=== PATIENT | female | born 1980 | race Caucasian/White ===

== ENCOUNTER 2019-09-28 15:42 | Emergency (ER) | payer OTHER, SELFPAY ==
[2019-09-28 15:45] VITALS: BP 148/113; PULSE 95; RESP 16; TEMP 37.5; O2SAT 97
--- NOTE | 2019-09-28 16:44 | ED.DENTAL ---
HPI - Dental/Oral General Chief complaint: Dental/Oral Stated complaint: Dental pain Time Seen by Provider: 09/28/19 16:19 Source: patient Mode of arrival: ambulatory Limitations: no limitations History of Present Illness HPI Narrative: Patient presents the emergency department for toothache x2 days. Reports tooth pain of a left upper and lower molar on the left side. Reports she took 2 doses of amoxicillin without relief. Reports she has been taking [id number] pain medication without relief as well. Denies fever, dysphasia, shortness of breath. MD Complaint: tooth pain Location: Tooth # (16, 17) Related Data Home Medications Medication Instructions Recorded Confirmed buspirone mg 09/28/19 09/28/19 escitalopram oxalate mg 09/28/19 escitalopram oxalate mg 09/28/19 lidocaine HCl [Lidocaine Viscous] 09/28/19 naproxen 09/28/19 quetiapine 09/28/19 sumatriptan succinate mg PO 09/28/19 Allergies Allergy/AdvReac Type Severity Reaction Status Date / Time erythromycin base Allergy Unknown Verified 09/28/19 16:03 tramadol AdvReac Unknown Verified 09/28/19 16:03 Review of Systems Review of Systems: Narrative: CONSTITUTIONAL: Denies fever ENT: Reports dentalgia All systems reviewed & are unremarkable except as noted in HPI and below PMFSH Past Medical History Medical History (Updated 09/28/19 @ 16:53 by Jerica Phelps PA-C) History of anxiety History of depression Exam Narrative: Exam Narrative: GENERAL: Well-appearing, well-nourished, and in no acute distress. HEAD: Normocephalic, atraumatic. EYES: EOMI. ENT: Mucous membranes moist. Oropharynx without tonsillar hypertrophy exudate or other lesions. Poor dentition. Tooth #16 and 17 tender to palpation without surrounding erythema or edema to suggest abscess. No trismus NECK: Supple. No adenopathy or masses. CHEST: Airway patent EXTREMITIES: Normal range of motion. No edema. SKIN: Warm, dry, no rash. NEURO: No focal deficits. Alert and oriented x3. PSYCH: Normal mood and affect Course Vital Signs Vital signs: Vital Signs Temperature 99.5 F 09/28/19 15:45 Pulse Rate 95 09/28/19 15:45 Respiratory Rate 16 09/28/19 15:45 Blood Pressure 148/113 H 09/28/19 15:45 Pulse Oximetry 97 09/28/19 15:45 Temperature 99.5 F 09/28/19 15:45 Pulse Rate 95 09/28/19 15:45 Respiratory Rate 16 09/28/19 15:45 Blood Pressure 148/113 H 09/28/19 15:45 Pulse Oximetry 97 09/28/19 15:45 MDM - Dental/Oral MDM Narrative Medical decision making narrative: Patient presents to the emergency department for toothache x2 days. She is afebrile and nontoxic-appearing. No signs of abscess on exam. Patient will be started on oral antibiotics. Reports she has an appointment to follow-up with a dentist. Patient was given warnings to return to the ER Critical Care Time Critical Care Time Critical Care Time: No Discharge Plan Discharge Clinical Impression: Toothache Patient Disposition: Home, Self-Care Condition: Stable Instructions: Antibiotic Form, Toothache (ED) Additional Instructions: Return to the Emergency Department if you experience fever >101, increasing swelling and redness of your tooth, or any other symptoms that are concerning to you Take antibiotic as prescribed. Tylenol or Ibuprofen as needed for pain. Prescribed pain medication as needed. You can apply a dab of clove oil to a Qtip and apply to the tooth to help numb the area Follow up with your dentist Prescriptions: New amoxicillin-pot clavulanate 875-125 mg tablet 1 tablet PO Q12H 7 Days Qty: 14 RF: 0 hydrocodone-acetaminophen 5-325 mg tablet 1 tablet PO Q6H PRN (Reason: pain) Qty: 10 RF: 0 No Action sumatriptan succinate 100 mg tablet PO RF: 0 buspirone 10 mg tablet RF: 0 Lidocaine Viscous 2 % solution RF: 0 naproxen 500 mg tablet RF: 0 escitalopram oxalate 10 mg tablet RF: 0
[2019-09-28 17:37] VITALS: BP 150/87; PULSE 85; RESP 14; O2SAT 99
== END 2019-09-28 17:38 | disposition home or self-care (01) ==
PROVIDERS: Emergency Provider Emergency Medicine; PCP Family Medicine
DX: K08.89 Other specified disorders of teeth and supporting structures (principal); F41.9 Anxiety disorder, unspecified; F32.9 Major depressive disorder, single episode, unspecified
CPT/HCPCS: 99283; A9270

== ENCOUNTER 2020-04-05 13:53 | Emergency (ER) | payer OTHER, SELFPAY ==
[2020-04-05 13:58] VITALS: BP 160/130; PULSE 130; RESP 28; TEMP 36.8; O2SAT 100
--- NOTE | 2020-04-05 14:56 | ED.DENTAL ---
HPI - Dental/Oral General Chief complaint: Dental/Oral Stated complaint: tooth pain Time Seen by Provider: 04/05/20 14:03 Source: patient Mode of arrival: ambulatory Limitations: no limitations History of Present Illness HPI Narrative: Patient is a 39-year-old female who presents to emergency department for evaluation of dentalgia with pain and discharge to the left dental caries with history of gross dental decay notes that she has been unable to get into dentistry due to Covid patient notes moderate to severe pain worse with eating denies vomiting URI symptoms or other complaints Related Data Home Medications Medication Instructions Recorded Confirmed buspirone mg 09/28/19 09/28/19 escitalopram oxalate mg 09/28/19 escitalopram oxalate mg 09/28/19 lidocaine HCl [Lidocaine Viscous] 09/28/19 naproxen 09/28/19 quetiapine 09/28/19 sumatriptan succinate mg PO 09/28/19 Allergies Allergy/AdvReac Type Severity Reaction Status Date / Time amoxicillin Allergy Unknown Verified 11/04/19 10:04 erythromycin base Allergy Unknown Verified 11/04/19 10:04 tramadol AdvReac Unknown Verified 11/04/19 10:04 Review of Systems Review of Systems: All systems reviewed & are unremarkable except as noted in HPI and below PMFSH Past Medical History Medical History History of anxiety History of depression Family History Family History (System 11/04/19 @ 10:04 by Jaja Morrissey) Mother Hypertension Cerebrovascular accident Family history of diabetes mellitus in first degree relative Father Carcinoma of colon Grandparent Diabetes mellitus Other Family history of malignant neoplasm of male breast Social History Social History Smoking status: Never smoker Second hand tobacco smoke exposure: No Alcohol intake: never Gender identity (if verbalized by the patient): Female Exam Narrative: Exam Narrative: GENERAL: Well-appearing, obese, uncomfortable and in no acute distress. HEAD: Normocephalic, atraumatic. EYES: PERRLA and EOMI. ENT: Nares clear, no rhinorrhea or epistaxis. Mucous membranes moist. Gross dental caries uvula midline no trismus or drooling floor of the mouth is soft CHEST: Clear to auscultation. No respiratory distress. No wheezes rales or rhonchi HEART: Regular rate and rhythm. No murmur heard. SKIN: Warm, dry, no rash. NEURO: No focal deficits. Alert and oriented x3. PSYCH: Normal mood and affect. Course Course Emergency Course: Patient in the room at this time will be given medications for her symptoms advised to follow with dentistry felt appropriate for outpatient reevaluation Vital Signs Vital signs: Vital Signs Temperature 98.3 F 04/05/20 13:58 Pulse Rate 130 H 04/05/20 13:58 Respiratory Rate 28 H 04/05/20 13:58 Blood Pressure 160/130 H 04/05/20 13:58 Pulse Oximetry 100 04/05/20 13:58 Temperature 98.3 F 04/05/20 13:58 Pulse Rate 130 H 04/05/20 13:58 Respiratory Rate 28 H 04/05/20 13:58 Blood Pressure 160/130 H 04/05/20 13:58 Pulse Oximetry 100 04/05/20 13:58 MDM - Dental/Oral MDM Narrative Medical decision making narrative: Paitents pain and complaint coupled with physical findings are consistant with dentalgia. There are no focal signs of space occupying lesions that are compromising to the ariway. The floor of the mouth is soft with no signs of Ludwigs Angina. Patient is without trismus or drooling and able to swallow secreations. Patient is felt appropriate for discharge home with dental follow up. Discharge Plan Discharge Clinical Impression: Toothache, Dental abscess Patient Disposition: Home, Self-Care Condition: Stable Instructions: Antibiotic Form, Dental Abscess (ED) Additional Instructions: Follow-up with dentistry in the next 7 days for reevaluation Return if symptoms worsen or concerns or any inc
[2020-04-05] MEDS: KETOROLAC (*BKC) 60 MG/2 ML VIAL IM (15:26)
== END 2020-04-05 15:32 | disposition home or self-care (01) ==
PROVIDERS: Emergency Provider Family Medicine; PCP Family Medicine
DX: K04.7 Periapical abscess without sinus (principal); F41.9 Anxiety disorder, unspecified; F32.9 Major depressive disorder, single episode, unspecified
CPT/HCPCS: 96372; 99283; J1885

== ENCOUNTER 2021-05-29 08:00 | Emergency (ER) | payer OTHER, SELFPAY ==
[2021-05-29 08:03] VITALS: BP 162/79; PULSE 117; RESP 22; TEMP 36.3; O2SAT 100
--- NOTE | 2021-05-29 08:59 | ED.GENADULT ---
HPI - General Adult General Chief complaint: Dental/Oral Stated complaint: DENTAL PAIN Time Seen by Provider: 05/29/21 08:40 Source: patient and RN notes reviewed History of Present Illness HPI narrative: Patient is a 40 y/o female complaining right upper toothache since yesterday. She states that she tried Anbesol, which did not help. She rates her pain as more than 10/10. She describes it as throbbing. She has no fever or chills. Related Data Home Medications Medication Instructions Recorded Confirmed buspirone mg 09/28/19 09/28/19 escitalopram oxalate mg 09/28/19 escitalopram oxalate mg 09/28/19 lidocaine HCl [Lidocaine Viscous] 09/28/19 naproxen 09/28/19 quetiapine 09/28/19 sumatriptan succinate mg PO 09/28/19 Allergies Allergy/AdvReac Type Severity Reaction Status Date / Time amoxicillin Allergy Unknown Verified 11/04/19 10:04 erythromycin base Allergy Unknown Verified 11/04/19 10:04 tramadol AdvReac Unknown Verified 11/04/19 10:04 Review of Systems Constitutional: Constitutional: Denies chills, Denies fever(s), Denies headache(s) and Denies weakness Eyes: Eyes: Denies blurry vision ENT: Reports dental pain, Denies headache(s) and Denies neck pain Gastrointestinal: Gastrointestinal: Reports diarrhea, Denies nausea and Denies vomiting Neurologic: Denies headache(s) and Denies weakness PMFSH Past Medical History Medical History History of anxiety History of depression Family History Family History Mother Hypertension Cerebrovascular accident Family history of diabetes mellitus in first degree relative Father Carcinoma of colon Grandparent Diabetes mellitus Other Family history of malignant neoplasm of male breast Social History Social History Smoking status: Never smoker Second hand tobacco smoke exposure: No Alcohol intake: never Gender identity (if verbalized by the patient): Female Exam Const: General: no acute distress and well developed Orientation/consciousness: oriented to person, oriented to place, oriented to time and patient oriented x3 HENMT: Head: normocephalic Ears: external ears normal General nose exam: Normal external nose present Teeth and gingiva: poor dentition Resp: Effort & Inspection: normal respiratory effort and able to speak in complete sentences Cardio: Rate: tachycardic Rhythm: regular rhythm Neuro: General: oriented to person, oriented to place, oriented to time and patient oriented x3 Cognition (Neuro): normal cognition Psych: Appearance: grossly normal Mental Status: mental status grossly normal Affect: Anxious affect present Course Vital Signs Vital signs: Vital Signs Temperature 36.3 C L 05/29/21 08:03 Pulse Rate 117 H 05/29/21 08:03 Respiratory Rate 22 H 05/29/21 08:03 Blood Pressure 162/79 H 05/29/21 08:03 Pulse Oximetry 100 05/29/21 08:03 Temperature 36.3 C L 05/29/21 08:03 Pulse Rate 117 H 05/29/21 08:03 Respiratory Rate 22 H 05/29/21 08:03 Blood Pressure 162/79 H 05/29/21 08:03 Pulse Oximetry 100 05/29/21 08:03 Medical Decision Making Vital Signs Vital Signs: Vital Signs Temperature 36.3 C L 05/29/21 08:03 Pulse Rate 117 H 05/29/21 08:03 Respiratory Rate 22 H 05/29/21 08:03 Blood Pressure 162/79 H 05/29/21 08:03 Pulse Oximetry 100 05/29/21 08:03 Temperature 36.3 C L 05/29/21 08:03 Pulse Rate 117 H 05/29/21 08:03 Respiratory Rate 22 H 05/29/21 08:03 Blood Pressure 162/79 H 05/29/21 08:03 Pulse Oximetry 100 05/29/21 08:03 Discharge Plan Discharge Clinical Impression: Toothache Patient Disposition: Home, Self-Care Condition: Stable Instructions: Antibiotic Form, Toothache (ED) Prescriptions: New acetaminophen-codeine 300-30 mg tablet 1 tablet PO Q6H PRN (Reason: pain)
[2021-05-29] MEDS: KETOROLAC (*BKC) 60 MG/2 ML VIAL IM (09:04)
== END 2021-05-29 09:24 | disposition home or self-care (01) ==
PROVIDERS: Emergency Provider Emergency Medicine; PCP Family Medicine
DX: K08.89 Other specified disorders of teeth and supporting structures (principal); F41.9 Anxiety disorder, unspecified; F32.A Depression, unspecified
CPT/HCPCS: 96372; 99284; J1885

== ENCOUNTER 2022-11-13 16:58 | Emergency (ER) | payer OTHER, SELFPAY ==
[2022-11-13] VITALS (12 sets, daily range): BP systolic 105–157; BP diastolic 61–126; PULSE 103–133; RESP 18–29; TEMP 36.8; O2SAT 95–99
--- NOTE | ~2022-11-13 | CT_ITS ---
CT of the Abdomen and Pelvis: Indication: Abdominal pain Technique: 2.5 mm axial scans were obtained through the abdomen and pelvis following intravenous adm inistration of 100 cc of Omnipaque 350. Dose reduction technique was used on this scan by utilizing a utomated exposure control and iterative reconstruction technique. The dose-length product (DLP) was 1 376.97 mGy-cm. COMPARISON: 12/26/2018 Findings: Scans through the lung bases are unremarkable. There is diffuse fatty infiltration of the liver. The spleen, pancreas, gallbladder, and adrenal glan ds are within normal limits. Left kidney is relatively atrophic, with left lower pole renal stones an d/or parenchymal scarring present. Small nonobstructing right renal stones are present. No hydronephr osis on either side. No evidence of aortic aneurysm. No lymphadenopathy. No bowel obstruction or bowel wall thickening. There is no evidence to suggest acute appendicitis. Fa t-containing umbilical hernia present. Images through the pelvis were performed. Small bubble of air present in the urinary bladder, which i s otherwise unremarkable. No adnexal mass seen. No ascites. Impression: Diffuse fatty infiltration of the liver. Mild nephrolithiasis, nonobstructing, as detailed above. Fat-containing umbilical hernia. Small bubble of air in urinary bladder. Correlate for iatrogenic cause. Reviewed, dictated and finalized at location . Impression: Diffuse fatty infiltration of the liver. Mild nephrolithiasis, nonobstructing, as detailed above. Fat-containing umbilical hernia. Small bubble of air in urinary bladder. Correlate for iatrogenic cause.
--- NOTE | ~2022-11-13 | XR_ITS ---
Portable chest x-ray Comparison: 06/13/2017 Clinical History: Shortness of breath Findings: Lungs are clear, without focal consolidation or pleural effusion. Cardiomediastinal silho uette is stable. Bones and soft tissues are unremarkable. Impression: Clear lungs. Reviewed, dictated and finalized at location . Impression: Clear lungs.
--- NOTE | 2022-11-13 17:08 | ECG_ITS ---
Measurements Intervals [place] Rate: 132 P: 33 FL: 120 QRS: 7 QRSD: 90 T: 38 QT: 313 QTc: 465 Interpretive Statements SINUS TACHYCARDIA INCOMPLETE RIGHT BUNDLE BRANCH BLOCK BASELINE ARTIFACT- I, II, III, AVR, AVL, AVF, V1-V6 ABNORMAL ECG NO PREVIOUS ECG AVAILABLE FOR COMPARISON Electronically Signed On 11-13-2022 19:11:30 CDT by Eduard Shukla D.O.
[2022-11-13] MEDS: methylPREDNISolone SOD SUCC 125 MG VIAL IV PUSH (17:13)
[2022-11-13] MEDS: ALBUTEROL SULFATE NEB 2.5 MG/3 ML INH 5 MG INHALATION (17:17)
[2022-11-13 17:24] LABS: Basophils Absolute Auto 0.1 K/mm3 (0.0-0.1); Basophils Percent Auto 0.8 % (0.2-1.2); Eosinophils Absolute Auto 1.8 K/mm3 (0-0.3); Hematocrit 36.2 % (37.0-47.0); Hemoglobin 9.9 g/dL (12.0-15.0); Immature Granulocyte Absolute 0.08 K/mm3 (0.00-0.031); Immature Granulocyte Percent A 0.5 % (0-0.5); Lymphocytes Absolute Auto 2.41 K/mm3 (0.9-3.2); Mean Corpuscular HGB Conc 27.3 g/dl (32-36); Mean Corpuscular Hemoglobin 21.5 pg (26-34); Mean Corpuscular Volume 78.7 fl (80-100); Mean Platelet Volume 9.8 fl (7.4-10.4); Monocytes Absolute Auto 0.6 K/mm3 (0.1-0.6); Monocytes Percent Auto 3.7 % (2.6-8.5); Neutrophils Absolute Auto 10.1 K/mm3 (1.3-6.7); Platelet Count Result 338 k/mm3 (150-375); Red Cell Distribution Width 19.9 % (11.5-14.5)
[2022-11-13 17:34] LABS: Alanine Aminotransferase 32 U/L (6-35); Albumin Level 4.2 g/dL (3.5-5.1); Alkaline Phosphatase 145 U/L (38-126); Anion Gap 14 mmol/L (8-16); Aspartate Amino Transferase 31 U/L (14-36); Bilirubin,Total 0.3 mg/dL (0.2-1.3); Blood Urea Nitrogen 17 mg/dL (7-17); Calcium 9.1 mg/dL (8.4-10.2); Carbon Dioxide 17 mmol/L (22-30); Chloride 109 mmol/L (98-107); Estimated CRCL calculation 93 ml/min; Estimated Glomerular Filt Rate 54; Glucose 168 mg/dL (65-110); Potassium 4.4 mmol/L (3.4-5.0); Sodium 140 mmol/L (137-145)
[2022-11-13 18:04] LABS: Platelet Estimate Increased (Adequate)
[2022-11-13 18:05] LABS: Schistocytes None Seen (NORMAL)
[2022-11-13 18:06] LABS: Anisocytosis 3+ (NORMAL); Hypochromasia 1+ (NORMAL)
[2022-11-13 18:24] LABS: NT Pro B Type Natriuretic Pept < 20 pg/mL (19.9-100)
--- NOTE | 2022-11-13 18:53 | ED.GENADULT ---
HPI - General Adult General Chief complaint: Shortness of Breath/Dyspnea Stated complaint: difficulty breathing Time Seen by Provider: 11/13/22 17:06 History of Present Illness HPI narrative: 42-year-old female present to the emergency department for evaluation of shortness of breath and abdominal pain. Patient states he has no prior history of asthma. Patient did have some minor wheeze on initial examination. Patient reports he is probably having pain at her hernia site. Patient also reports a prior history of a colovesicular fistula for which she is not yet cleared for surgery. Patient was told that she needed to lose weight prior to surgery and patient is also hoping to not have a colostomy. Patient reports she has had increased cough and some shortness of breath but denies any chest pain. Related Data Home Medications Medication Instructions Recorded Confirmed buspirone 10 mg tablet mg 09/28/19 09/28/19 escitalopram oxalate 10 mg tablet mg 09/28/19 escitalopram oxalate 20 mg tablet mg 09/28/19 lidocaine HCl 2 % mucosal solution 09/28/19 (Lidocaine Viscous) naproxen 500 mg tablet 09/28/19 quetiapine 50 mg tablet 09/28/19 sumatriptan succinate 100 mg tablet mg PO 09/28/19 Allergies Allergy/AdvReac Type Severity Reaction Status Date / Time amoxicillin Allergy Unknown Unknown Verified 11/13/22 17:12 erythromycin base Allergy Unknown Verified 11/13/22 17:12 tramadol AdvReac Unknown Verified 11/13/22 17:12 Review of Systems Review of Systems: All systems reviewed & are unremarkable except as noted in HPI and below PMFSH Past Medical History Medical History History of anxiety History of depression Family History Family History Mother Hypertension Cerebrovascular accident Family history of diabetes mellitus in first degree relative Father Carcinoma of colon Grandparent Diabetes mellitus Other Family history of malignant neoplasm of male breast Social History Social History Smoking status: Never smoker Second hand tobacco smoke exposure: No Alcohol intake: never Gender identity (if verbalized by the patient): Female Exam Narrative: APPEARANCE: Well appearing, no pain, no distress, well-nourished. HEAD: normocephalic, atraumatic. EYES: PERRLA/EOMI, conjunctivae clear. NOSE: Normal no drainage EARS:TMS clear with good light reflex. THROAT: Pharynx clear, no exudate. NECK: Supple. No adenopathy, no masses. RESPIRATORY: Expiratory wheeze on exam CARDIOVASCULAR: Regular rate and rhythm without murmurs rubs or gallops. ABDOMINAL: Soft nondistended, normal bowel sounds, reducible umbilical hernia MUSCULOSKELETAL: Moves all extremities. Strength/ROM intact, No edema, No calf tenderness. NEURO: Alert. Cranial nerves II through XII intact. Grossly intact SKIN: Warm, dry. Normal Color Course Course Emergency Course: 42-year-old female present emergency department for evaluation of abdominal pain and some shortness of breath. Patient did feel improved with the breathing treatment. Chest x-ray showed no acute cardiopulmonary abnormality. Patient had a CT scan that showed nonobstructing nephrolithiasis, fat-containing umbilical hernia and a small bubble of air in the urinary bladder. UA was concerning for infection but patient also does have a known fistula. Patient was started on antibiotics for possible UTI. Patient was also provided and reviewed on inhaler for her wheeze. Patient was able to ambulate at her baseline and was in no distress. Patient was encouraged to continue to have close follow-up with her primary care physicians and with her surgeons. All questions concerns were addressed and patient was well-appearing at time of discharge. Vital Signs Vital signs: Vital Signs Temperature 98.2 F 11/13/22 17:08 Pu
[2022-11-13] MEDS: SODIUM CHLORIDE 0.9% IV 1,000 ML 999 ML IV CONT (19:44)
[2022-11-13 20:29] LABS: Appearance Urine Cloudy (Clear); Bacteria Urine 4+ /hpf; Bilirubin Urine Negative (Negative); Blood Urine 2+ (Negative); Color Urine Yellow (Yellow); Glucose Urine UA Negative (Negative); Ketones Urine Negative (Negative); Leukocyte Esterase Ur 3+ LEU/UL (Negative); Nitrate Urine Positive (Negative); Protein Urine 1+ mg/dL (Negative); Specific Grav Ur 1.027 (1.001-1.035); Squamous Epithelial Cell Urine None seen /hpf (Few); Urobilinogen Urine 0.2 mg/dL (<2.0); WBC Urine >100 /hpf; pH Urine 5.5 (5.0-9.0)
[2022-11-13 20:32] LABS: Add Urine Microscopic? NO
[2022-11-13] MEDS: ALBUTEROL SULFATE NEB 2.5 MG/3 ML INH INHALATION (20:42)
[2022-11-13] MEDS: levoFLOXacin 500 MG TABLET PO (21:15)
== END 2022-11-13 21:34 | disposition home or self-care (01) ==
PROVIDERS: Emergency Provider Emergency Medicine; PCP Family Medicine
DX: N39.0 Urinary tract infection, site not specified (principal); F41.9 Anxiety disorder, unspecified; F32.A Depression, unspecified; K42.9 Umbilical hernia without obstruction or gangrene; K76.0 Fatty (change of) liver, not elsewhere classified; N20.0 Calculus of kidney
CPT/HCPCS: 36415; 71045; 74177; 80053; 81003; 83880; 85025; 87086; 87088; 93005; 94640; 96361; 96374; 99284; A9270; J2930; J7030; Q9967

== ENCOUNTER 2025-04-01 16:22 | Emergency (ER) | payer OTHER, SELFPAY ==
--- NOTE | ~2025-04-01 | XR_ITS ---
EXAMINATION: XR chest 1V portable DATE: 04/01/2025 18:25 INDICATION: Chest pain TECHNIQUE: A single frontal view of the chest was obtained. COMPARISON: Chest x-ray dated 11/13/2022 FINDINGS: Cardiomegaly of moderately significant degree. Lungs do not show acute findings. Central line placed through the right internal jugular vein is noted with the tip at the junction of superior vena cava and right atrium. IMPRESSION: 1. Cardiomegaly. No acute pulmonary findings. 2. Central line tip at the junction of superior vena cava and right atrium. Reviewed, dictated and finalized at location T. ER MILL OPERATOR
--- NOTE | ~2025-04-01 | CT_ITS ---
EXAMINATION: CTA chest PE abdomen pel DATE: 04/01/2025 21:38 INDICATION: Chest pain, shortness of breath. TECHNIQUE: Computed tomography angiography (CTA) of the chest was performed with 100 mL Omnipaque-350 intravenous contrast timed to evaluate the pulmonary arteries. Coronal maximum intensity projection 3D-reconstructions were created by the technologist. Computed tomography (CT) of the abdomen and pelvis was performed with intravenous contrast. Automated exposure control and iterative reconstruction technique were employed. The dose-length product was 2188.17 mGy-cm. COMPARISON: Chest x-ray dated 04/01/2025. CT abdomen pelvis dated 11/13/2022. FINDINGS: CTA chest: Filling defect within the distal right pulmonary artery extending to the inferior pulmonary artery suggestive of embolus. Smaller emboli are noted in the left lower lobe branches. No pleural or pericardial effusion. CT abdomen and pelvis: No focal lesions in the liver and spleen. Hepatomegaly. Gallbladder is distended in size without edema or calcified stones. Pancreas shows no acute findings. Atrophic left kidney with multiple left renal calculi. No retroperitoneal adenopathy. No evidence of bowel obstruction. No pelvic mass or fluid collections. IMPRESSION: 1. CT angiogram shows evidence of pulmonary emboli as described above. Embolic load is moderate. No angiographic evidence of right ventricular strain. 2. Hepatomegaly. Mildly distended gallbladder. No calcified stones. 3. Atrophic left kidney with multiple calculi. 4. Critical findings conveyed to attending physician by phone call at 9:47 PM. Reviewed, dictated and finalized at location T. PATIONAL THERAPY PROGRAM DIRECTOR
--- NOTE | ~2025-04-01 | US_ITS ---
EXAMINATION: Duplex Doppler ultrasound of right upper extremity venous circulation: DATE: 04/01/2025 INDICATION: Pain, swelling. TECHNIQUE: High resolution ultrasound with compression and Doppler analysis including augmentation was performed of the right internal jugular, subclavian, axillary, brachial, radial and ulnar veins. COMPARISON: None. FINDINGS: No evidence of DVT is noted in the upper extremity veins on the right side. Normal compression and color flow are noted. IMPRESSION: 1. No evidence of DVT involving major veins in the right upper extremity. Reviewed, dictated and finalized at location T. O TUNER
[2025-04-01 16:27] VITALS: BP 110/71; PULSE 97; RESP 18; TEMP 36.5; O2SAT 100
--- NOTE | 2025-04-01 17:14 | ED.RECABL ---
HPI - Recheck/Abnormal Lab/Rx General Chief Complaint: Recheck/Abnormal Lab/Rx Stated Complaint: pain r/t port Time Seen by Provider: 04/01/25 17:01 History of Present Illness HPI narrative: Patient is a 54-year-old female who presents to the ER with multiple medical complaints. She endorses pain to her port site in her right chest, right arm pain, shortness of breath, and abdominal pain. 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 She reports she had been getting infusions up until January but has been unable to get to the infusion center since then. Patient reports her port dressing has not been changed since January. She endorses a history of diverticulitis, bladder fistulas, and pulmonary embolism. Patient reports she takes Eliquis regularly. She denies any acute back pain, recent fevers, or urinary symptoms. Related Data Home Medications ?Medication ?Instructions ?Recorded ?Confirmed ?Last Taken ?Type buspirone 10 mg tablet mg 09/28/19 09/28/19 Unknown History escitalopram oxalate 10 mg tablet mg 09/28/19 Unknown History escitalopram oxalate 20 mg tablet mg 09/28/19 Unknown History lidocaine HCl 2 % mucosal solution 09/28/19 Unknown History (Lidocaine Viscous) naproxen 500 mg tablet 09/28/19 Unknown History quetiapine 50 mg tablet 09/28/19 Unknown History sumatriptan succinate 100 mg tablet mg PO 09/28/19 Unknown History Allergies Allergy/AdvReac Type Severity Reaction Status Date / Time chlorhexidine (From [facility] Allergy Rash Verified 04/01/25 16:45 Mae Chg) Review of Systems Review of Systems: All systems reviewed & are unremarkable except as noted in HPI and below [facility] Past Medical History Medical History History of anxiety History of depression Family History Family History Mother Hypertension Cerebrovascular accident Family history of diabetes mellitus in first degree relative Father Carcinoma of colon Grandparent Diabetes mellitus Other Family history of malignant neoplasm of male breast Social History Social History Smoking status: Never smoker Second hand tobacco smoke exposure: No Alcohol intake: never Gender identity (if verbalized by the patient): Female Exam Narrative: GENERAL: Ill appearing, obese, non-toxic, in acute distress d/t pain. HEAD: Normocephalic, atraumatic. NECK: Supple. No adenopathy, no masses. RESPIRATORY: Airway patent, respirations nonlabored. Clear to auscultation bilaterally, no rales, rhonchi, wheezing. CARDIOVASCULAR: Regular rate and rhythm without murmurs, rubs, or gallops. Peripheral pulses 2+ and equal bilaterally. ABDOMINAL: Soft, generalized tenderness with palpation, nondistended, no hepatosplenomegaly. Normoactive BS. MUSCULOSKELETAL: Moves all extremities. Strength/ROM intact without gross deformities. SKIN: Warm, dry, normal color. No rashes. NEURO: A&O X3. Speech clear. Cranial nerves II-XII intact. No ataxic movements. PSYCHIATRIC: Tearful Course Vital Signs Vital signs: Vital Signs Temperature 36.5 C 04/01/25 16:27 Pulse Rate 97 04/01/25 16:27 Respiratory Rate 18 04/01/25 16:27 Blood Pressure 110/71 04/01/25 16:27 Pulse Oximetry 100 04/01/25 16:27 Oxygen Delivery Room Air 04/01/25 16:27 Temperature 36.6 C 04/01/25 19:30 Pulse Rate 80 04/01/25 19:30 Respiratory Rate 16 04/01/25 19:30 Blood Pressure 127/71 04/01/25 19:30 Pulse Oximetry 99 04/01/25 19:30 Oxygen Delivery Room Air 04/01/25 16:27 [facility] Narrative Medical decision making narrative: Patient is a 54-year-old female who presents to the ER with multiple medical complaints. She endorses pain to her port site in her right chest, right arm pain, shortness of breath, and abdominal pain. 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 She reports she had been getting infusions up until January but has been unable to get to the infusion center since then. Patient reports her port dressing has not been changed since January. She endorses a history of diverticulitis, bladder fistulas, and pulmonary embolism. Patient reports she takes Eliquis regularly. She denies any acute back pain, recent fevers, or urinary symptoms. Labs Ordered: CBC, CMP, UA, proBNP, PTT, INR, CRP, lipase, blood cultures, D-dimer, lactic acid Imaging Ordered: Chest x-ray, right upper extremity Doppler ultrasound, CTA chest PE abdomen pelvis Medications Ordered: 1 L normal saline IV bolus, Dilaudid 0.5 mg IV x2, Rocephin 1 g IM, [place] p.o. Results: Pt's CT scan indicates CTA chest: Filling defect within the distal right pulmonary artery extending to the inferior pulmonary artery suggestive of embolus. Smaller emboli are noted in the left lower lobe branches. No pleural or pericardial effusion. CT abdomen and pelvis: No focal lesions in the liver and spleen. Hepatomegaly. Gallbladder is distended in size without edema or calcified stones. Pancreas shows no acute findings. Atrophic left kidney with multiple left renal calculi. No retroperitoneal adenopathy. No evidence of bowel obstruction. No pelvic mass or fluid collections. Diagnosis: Urinary tract infection, right arm pain, known PE Consults: [id number]- Spoke with kindergarten assistant, Dr. Rucker, who reports patient had a large clot when it was diagnosed back in February. She expects the clot will take a long time to dissolve, possibly longer than [address] Rucker reports pt can follow-up with pulmonology at [place] in May, as planned. Patient Education/Shared MDM: Results of lab work and imaging shared with patient. They endorses improvement of symptoms following medication administration. Pt will be given another dose of pain medication prior to discharge. She is requesting a prescription for a narcotic pain medication, but it was explained to pt that there was no significant reason to prescribe narcotics and she should follow-up with her pain management doctor. Patient strongly advised to follow-up with her PCP as soon as possible to ensure she is healing. They will be discharged home with a prescription for Levofloxacin, although pt reports she has chronic UTIs and should follow-up with her urologist for further care. Pt was given a dose of Ceftriaxone 1gm here in the ER. Strict return precautions provided. Patient verbalized understanding and is in agreement with plan. Vital signs stable at time of discharge. All questions answered. Differential Diagnosis Differential Diagnosis: Pulmonary embolism, diverticulitis, urinary tract infection, blood clot right arm, shortness of breath Lab Data [facility] Lab Attestation statement: I personally reviewed the patient's lab results. 04/01/25 18:18 04/01/25 18:18 Labs: Lab Results 04/01/25 04/01/25 04/01/25 Range/Units 18:18 18:18 20:21 WBC 9.0 (4.5-10.0) K/mm3 RBC 3.96 L (4.2-5.4) M/mm3 Hgb 10.8 L (12.0-15.0) g/dL Hct 34.0 L (37.0-47.0) % MCV 85.9 (80-100) fl MCH 27.3 (26-34) pg MCHC 31.8 L (32-36) g/dl RDW 16.0 H (11.5-14.5) % Plt Count 337 (150-375) k/mm3 MPV 10.0 (7.4-10.4) fl Immature Gran % (Auto) 0.8 H (0-0.5) % Neut % (Auto) 73.2 H (45.5-73.1) % Lymph % (Auto) 19.6 (18.3-44.2) % [place] % (Auto) 4.0 (2.6-8.5) % Eos % (Auto) 2.1 (0-4.4) % Baso % (Auto) 0.3 (0.2-1.2) % Lymph # (Auto) 1.76 (0.9-3.2) K/mm3 [place] # (Auto) 0.4 (0.1-0.6) K/mm3 Eos # (Auto) 0.2 (0-0.3) K/mm3 Baso # (Auto) 0.0 (0.0-0.1) K/mm3 Abs Immat Gran (auto) 0.07 H (0.00-0.031) K/mm3 Absolute Neuts (auto) 6.6 (1.3-6.7) K/mm3 Absolute Nucleated RBC 0.000 (0.0-0.012) K/mm3 Nucleated RBC % 0.0 (0.0-0.2) % PT 15.3 H (11.1-14.7) Seconds INR 1.2 APTT 25.3 (22.3-36.8) Seconds D-Dimer 0.53 H (<0.48) ug/mL Sodium 138 (137-145) mmol/L Potassium 3.9 (3.4-5.0) mmol/L Chloride 108 H (98-107) mmol/L Carbon Dioxide 24 (22-30) mmol/L Anion Gap 6 (4-12) mmol/L BUN 19 H (7-17) mg/dL Creatinine 1.39 H (0.7-1.0) mg/dL Estim Creat Clear Calc 57 ml/min Estimated GFR 41 L (59 - ) Glucose 100 (65-110) mg/dL Lactic Acid 1.0 (0.7-2.0) mmol/L Calcium 9.6 (8.4-10.2) mg/dL Total Bilirubin 0.5 (0.2-1.3) mg/dL AST 50 H (14-36) U/L ALT 37 H (6-35) U/L Alkaline Phosphatase 110 (38-126) U/L C-Reactive Protein 3.1 H (<1.0) mg/dL NT-Pro-B Natriuret Pep 559 H (19.9-100) pg/mL Total Protein 8.5 H (6.3-8.2) g/dL Albumin 3.8 (3.5-5.1) g/dL Lipase 77 Cancelled (23-300) U/L Urine Color Yellow (Yellow) Urine Appearance Cloudy H (Clear) Urine pH 7.0 (5.0-9.0) Ur Specific [place] 1.011 (1.001-1.035) Urine Protein 1+ H (Negative) mg/dL Urine Glucose (UA) Negative (Negative) mg/dL Urine Ketones Negative (Negative) mg/dL Ur Blood (Man) Trace (Negative) Urine Nitrate Positive H (Negative) Urine Bilirubin Negative (Negative) Urine Urobilinogen 0.2 (<2.0) mg/dL Leukocyte Esterase Rfl 3+ H (Negative) HARRIS/UL Urine RBC 0-2 (0-2) /hpf Urine WBC >100 H (0-3) /hpf Ur Squamous Epith Cells None seen (Few) /hpf Urine Bacteria 4+ H /hpf Urine Casts 0-2 POC Urine HCG, Qual (Negative) 12/10/25 Range/Units 20:22 WBC (4.5-10.0) K/mm3 RBC (4.2-5.4) M/mm3 Hgb (12.0-15.0) g/dL Hct (37.0-47.0) % MCV (80-100) fl MCH (26-34) pg MCHC (32-36) g/dl RDW (11.5-14.5) % Plt Count (150-375) k/mm3 MPV (7.4-10.4) fl Immature Gran % (Auto) (0-0.5) % Neut % (Auto) (45.5-73.1) % Lymph % (Auto) (18.3-44.2) % [place] % (Auto) (2.6-8.5) % Eos % (Auto) (0-4.4) % Baso % (Auto) (0.2-1.2) % Lymph # (Auto) (0.9-3.2) K/mm3 [place] # (Auto) (0.1-0.6) K/mm3 Eos # (Auto) (0-0.3) K/mm3 Baso # (Auto) (0.0-0.1) K/mm3 Abs Immat Gran (auto) (0.00-0.031) K/mm3 Absolute Neuts (auto) (1.3-6.7) K/mm3 Absolute Nucleated RBC (0.0-0.012) K/mm3 Nucleated RBC % (0.0-0.2) % PT (11.1-14.7) Seconds INR APTT (22.3-36.8) Seconds D-Dimer (<0.48) ug/mL Sodium (137-145) mmol/L Potassium (3.4-5.0) mmol/L Chloride (98-107) mmol/L Carbon Dioxide (22-30) mmol/L Anion Gap (4-12) mmol/L BUN (7-17) mg/dL Creatinine (0.7-1.0) mg/dL Estim Creat Clear Calc ml/min Estimated GFR (59 - ) Glucose (65-110) mg/dL Lactic Acid (0.7-2.0) mmol/L Calcium (8.4-10.2) mg/dL Total Bilirubin (0.2-1.3) mg/dL AST (14-36) U/L ALT (6-35) U/L Alkaline Phosphatase (38-126) U/L C-Reactive Protein (<1.0) mg/dL NT-Pro-B Natriuret Pep (19.9-100) pg/mL Total Protein (6.3-8.2) g/dL Albumin (3.5-5.1) g/dL Lipase (23-300) U/L Urine Color (Yellow) Urine Appearance (Clear) Urine pH (5.0-9.0) Ur Specific [place] (1.001-1.035) Urine Protein (Negative) mg/dL Urine Glucose (UA) (Negative) mg/dL Urine Ketones (Negative) mg/dL Ur Blood (Man) (Negative) Urine Nitrate (Negative) Urine Bilirubin (Negative) Urine Urobilinogen (<2.0) mg/dL Leukocyte Esterase Rfl (Negative) HARRIS/UL Urine RBC (0-2) /hpf Urine WBC (0-3) /hpf Ur Squamous Epith Cells (Few) /hpf Urine Bacteria /hpf Urine Casts POC Urine HCG, Qual Negative (Negative) Imaging Data Attestation: I personally reviewed and interpreted this imaging study as follows: Radiologist's impression: ITS Impressions Venous Doppler Study 04/01/25 17:59 IMPRESSION: 1. No evidence of DVT involving major veins in the right upper extremity. Chest X-Ray 04/01/25 18:26 IMPRESSION: 1. Cardiomegaly. No acute pulmonary findings. 2. Central line tip at the junction of superior vena cava and right atrium. Chest/Abdomen/Pelvis CTA 04/01/25 21:39 IMPRESSION: 1. CT angiogram shows evidence of pulmonary emboli as described above. Embolic load is moderate. No angiographic evidence of right ventricular strain. 2. Hepatomegaly. Mildly distended gallbladder. No calcified stones. 3. Atrophic left kidney with multiple calculi. 4. Critical findings conveyed to attending physician by phone call at 9:47 PM. Discharge Plan Discharge Clinical Impression: Urinary tract infection, History of pulmonary embolism, Port-A-Cath in place, Abdominal pain, Calciphylaxis, History of diverticulitis Patient Disposition: Home Condition: Stable Instructions: Antibiotic Form, Urinary Tract Infection in Women (ED) Additional Instructions: Please return to the ER with any worsening symptoms. Follow-up with pulmonology in May, as planned. Please schedule appointments with the each of your specialists as soon as possible. Take all medications as prescribed, including regularly scheduled medications. Complete your full dose of antibiotics. Please follow-up with your statuary painter for further pain control. Patient Language: Slovenian Prescriptions: New levofloxacin 750 mg tablet 750 mg PO DAILY Qty: 7 0RF No Action sumatriptan succinate 100 mg tablet PO buspirone 10 mg tablet Lidocaine Viscous 2 % solution naproxen 500 mg tablet escitalopram oxalate 10 mg tablet escitalopram oxalate 20 mg tablet quetiapine 50 mg tablet amoxicillin-pot clavulanate 875-125 mg tablet 1 tablet PO Q12H 7 Days Qty: 14 0RF hydrocodone-acetaminophen 5-325 mg tablet 1 tablet PO Q6H PRN (Reason: pain) Qty: 10 0RF acetaminophen-codeine 300-30 mg tablet 1 tablet PO Q6H PRN (Reason: pain) Qty: 10 0RF doxycycline hyclate 20 mg tablet 20 mg PO Q12H Qty: 20 0RF clindamycin HCl 150 mg capsule 450 mg PO Q8H 10 Days Qty: 90 0RF chlorhexidine gluconate [Peridex] 0.12 % mouthwash 15 ml mucous membrane BID Qty: 1500 0RF ibuprofen [IBU] 600 mg tablet 600 mg PO Q6H PRN (Reason: fever or pain) Qty: 7 0RF hydrocodone-acetaminophen [[place]] 5-325 mg tablet 1 tablet PO Q8H PRN (Reason: pain) Qty: 7 0RF levofloxacin 500 mg tablet 500 mg PO DAILY 5 Days Qty: 5 0RF albuterol sulfate 90 mcg/actuation HFA aerosol inhaler 1 inh inhalation QID PRN (Reason: shortness of breath or wheezing) Qty: 6.7 0RF Follow-up/Referrals: PHYSICIAN NOT ON STAFF,NONSTAFF [Primary Care Provider] Time of Disposition: 00:21
[2025-04-01] MEDS: SODIUM CHLORIDE 0.9% IV 1,000 ML 999 ML IV CONT (17:38)
[2025-04-01] MEDS: HYDROmorphone HCL INJ (*CRX) 1 MG/ML SYR 0.5 MG IV PUSH ×2 (17:39→21:23)
[2025-04-01 18:35] LABS: Hematocrit 34.0 % (37.0-47.0); Hemoglobin 10.8 g/dL (12.0-15.0); Immature Granulocyte Percent A 0.8 % (0-0.5); Lymphocytes Absolute Auto 1.76 K/mm3 (0.9-3.2); Mean Corpuscular HGB Conc 31.8 g/dl (32-36); Mean Corpuscular Hemoglobin 27.3 pg (26-34); Mean Corpuscular Volume 85.9 fl (80-100); Nucleated Red Blood Cells Absolute Auto 0.000 K/mm3 (0.0-0.012); Nucleated Red Blood Cells Perc 0.0 % (0.0-0.2); Platelet Count Result 337 k/mm3 (150-375); Red Blood Count 3.96 M/mm3 (4.2-5.4); White Blood Count 9.0 K/mm3 (4.5-10.0)
[2025-04-01 18:47] LABS: Alanine Aminotransferase 37 U/L (6-35); Albumin Level 3.8 g/dL (3.5-5.1); Alkaline Phosphatase 110 U/L (38-126); Anion Gap 6 mmol/L (4-12); Aspartate Amino Transferase 50 U/L (14-36); Bilirubin,Total 0.5 mg/dL (0.2-1.3); Blood Urea Nitrogen 19 mg/dL (7-17); CRP 3.1 mg/dL (<1.0); Calcium 9.6 mg/dL (8.4-10.2); Carbon Dioxide 24 mmol/L (22-30); Chloride 108 mmol/L (98-107); Estimated CRCL calculation 57 ml/min; Estimated Glomerular Filt Rate 41; Glucose 100 mg/dL (65-110); INR 1.2; Lipase 77 U/L (23-300); Potassium 3.9 mmol/L (3.4-5.0); Prothrombin Time 15.3 Seconds (11.1-14.7); Sodium 138 mmol/L (137-145); Total Protein 8.5 g/dL (6.3-8.2)
[2025-04-01 18:48] LABS: Partial Thromboplastin Time 25.3 Seconds (22.3-36.8)
[2025-04-01 18:53] LABS: NT Pro B Type Natriuretic Pept 559 pg/mL (19.9-100)
[2025-04-01 19:30] VITALS: BP 127/71; PULSE 80; RESP 16; TEMP 36.6; O2SAT 99
[2025-04-01 20:24] LABS: BEDSIDEPREGUCG Negative (Negative)
[2025-04-01 20:34] LABS: Add Urine Microscopic? YES; Appearance Urine Cloudy (Clear); Glucose Urine UA Negative (Negative); Leukocyte Esterase Ur 3+ LEU/UL (Negative); Nitrate Urine Positive (Negative); Non Pathogenic Casts 0-2; Specific Grav Ur 1.011 (1.001-1.035)
--- OUTSIDE RECORDS SUMMARY | 2025-04-01 20:58 | XMS_ITS | Encounter Summary ---
Author Organization [facility] Address [address] [place] [address] Phone Care Team Providers Care Benefits Consulting Analyst Name Role Phone Byron Carter MD Primary Care Provider [phone] Gerry Kearns MD Unavailable [phone] No, Physician Primary Care Provider [phone] Manny Camacho MD PhD Primary Care Provider Encounter Details Date Type Department Care Team (Latest Contact Info) Description 02/05/2025 Results Follow-Up [facility] Medicine Dermatology [address] [facility] [address] [place] [address] Kandice Mary MD [address] [address] Comprehensive metabolic panel, CBC with auto differential, Differential, auto, eGFR Social History Tobacco Use Types Packs/Day Years Used Date Smoking Tobacco: Never Alcohol Use Standard Drinks/Week Comments Never 0 (1 standard drink = 0.6 oz pur e alcohol) [facility] Utilities Answer Date Recorded In the past 12 months has e electric, gas, oil, or water company threatened to shut off services in your home? No 10/31/2024 Social Connection and Isolation Panel Answer Date Recorded In a typical week, how many times do you talk on the phone with family, friends, or neighbors? More than three times a week 10/31/2024 How often do you get togethe r with friends or relatives? More than three times a week 10/31/2024 How often do you attend chur ch or mormon services? More than 4 times per year 10/31/2024 Do you belong to any clubs o r organizations such as yazdanism groups, unions, fraternal or athletic groups, or school groups? No 10/31/2024 How often do you attend meet ings of the clubs or organizations you belong to? Never 10/31/2024 Are you , , di vorced, , never , or living with a partner? 10/31/2024 Overall Financial Resource Strain (CARDIA) Answe r Date Recorded How hard is it for you to pa y for the very basics like food, housing, medical care, and heating? Somewhat hard 10/31/2024 PHQ-2 Answer Date Recorded PHQ-2 Total Score 0 10/31/2024 Hunger Vital Sign Answer Date Recorded Within the past 12 months, y ou worried that your food would run out before you got the money to buy more. Never true 11/01/19 25 Within the past 12 months, t he food you bought just didn't last and you didn't have money to get more. Never true 10/31/2024 PRAPARE - Transportation Answer Date Re corded In the past 12 months, has l ack of transportation kept you from medical appointments or from getting medications? No 10/21 In the past 12 months, has l ack of transportation kept you from meetings, work, or from getting things needed for daily living? No 10/31/2024 Housing Stability Vital Sign Answer Zeeshan e Recorded In the last 12 months, was t here a time when you were not able to pay the mortgage or rent on time? Yes 10/31/2024 In the past 12 months, how m any times have you moved where you were living? 1 10/31/2024 At any time in the past 12 m [facility], were you homeless or living in a penitentiary (including now)? No 10/31/2024 AUDIT-C Answer Date Recorded Q1: How often do you have a drink containing alcohol? Never 01/20/2025 Q2: How many drinks containi ng alcohol do you have on a typical day when you are drinking? Patient does not drink Q3: How often do you have si x or more drinks on one occasion? Never 01/20/2025 Personal Safety Answer Date Recorded Have you ever been in or are you currently in a harmful physical or emotional relationship or is someone making you feel afraid or unsafe? 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 2 or more 02/06/2025 2:10 PM Nina Tapia RN Was the patient injured in the fall? No 02/06/2025 2:10 PM Nina Gaytan RN Has trouble stepping up onto a curb 1 02/06/2025 2:10 PM Nina Gaytan RN Advised to use a cane or walker to get around safely 2 02/06/2025 2:10 PM Sunni Gaytan RN Often has to kelly to the toilet 0 02/06/2025 2:10 PM Nina Gaytan RN Feels unsteady when walking 1 02/06/2025 2: 10 PM Nina Gaytan RN Has lost some feeling in feet 1 02/06/2025 2:10 PM Nina Gaytan RN Steadies self on furniture while walking at home 1 02/06/2025 2:10 PM Nina Gaytan RN Takes medicine that makes him/her feel lightheaded or more tired than usual 1 02/06/2025 2:10 PM Nina Gaytan RN Worried about falling 1 02/06/2025 2:10 PM Nina Gaytan RN Takes medicine to sleep or improve mood 1 02/06/2025 2:10 PM Nina Gaytan RN Needs to push with hands whe n rising from a chair 1 02/06/2025 2:10 PM Nina Gaytan RN Often feels sad or depressed 1 02/06/2025 2 :10 PM MELINAT Nina Yap RN STEADI Score Total 13 02/06/2025 2:10 PM CDT Nina Yap RN * Question Answer Date of Assessment Author BP Location Left arm 02/06/2025 2:15 PM CDT Karoline Philippe MA BP Method Automatic 02/06/2025 2:15 PM CDT Karoline Philippe MA * Integumentary Question Answer Date of Assessment Author Integumentary ([facility]) [facility] 02/06/2025 2:11 PM MELINA T Nina Yap RN documented as of this encounter Mental Status * Question Answer Entry Date Author Neuro ([facility]) [facility] 02/06/2025 2:11 PM Nina Blake RN documented in this encounter Plan of Treatment Not on file documented as of this encounter Visit Diagnoses Not on filedocumented in this encounter Additional Health Concerns 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
--- OUTSIDE RECORDS SUMMARY | 2025-04-01 20:59 | XMS_ITS | Clinical Summary ---
Author Organization [facility] [address] Address [address] [place] [address] Care Team Providers Care Rn Palliative Name Role Phone Gerry Kearns MD Unavailable [phone] Manny Camacho MD PhD Primary Care Provider Allergies Active Allergy Reactions Criticality Noted Date Comments Chlorhexidine Itching Low 07/30/2024 Erythromycin Other (See comments),Unknown 12/14/2018 Reaction: states not allergic to arythromycin Medications aspirin 81 mg enteric coated tablet Take 1 tablet (81 mg total) by mouth daily 30 tablet 01/06/20 25 Active miconazole 2 % powder Apply topically 2 (two) times a day 70 g 01/06/20 25 Active pregabalin (LYRICA) 50 mg capsule Take 1 capsule (50 mg total) by mouth 2 (two) times a day 60 capsule 5 01/06/20 25 026 Active topiramate (TOPAMAX) 50 mg tablet Take 1 tablet (50 mg total) by mouth daily 90 tablet 3 01/06/20 25 026 Active Additional Information Patient not taking.Reported on 02/24/2025 sodium thiosulfate 12.5 gram/50 mL (250 mg/mL) injection Infuse 50 mL (12.5 g total) IV 3 (three) times a week for 60 minutes at 50 mL/hr 50 mL 01/08/20 25 Active Additional Information Patient not taking.Reported on 02/24/2025 pentoxifylline ER (TRENtal) 400 mg CR tablet Take 1 tablet (400 mg total) by mouth daily 31 tablet 01/16/20 25 Active acetaminophen (TYLENOL) 325 mg tablet Take 2 tablets (650 mg total) by mouth every 6 (six) hours as needed for pain Active folic acid (FOLVITE) 1 mg tablet Take 1 tablet (1 mg total) by mouth daily 30 tablet 03/03/20 25 Active thiamine (VITAMIN B1) 100 mg tablet Take 1 tablet (100 mg total) by mouth daily 30 tablet 03/03/20 25 Active lidocaine (LIDODERM) 5 % Place 2 patches on the skin daily for 12 hours Remove & discard patch(es) within 12 hours or as directed by 14 patch 03/03/20 25 Active apixaban (ELIQUIS) 5 mg tabletIndicati ons:Pulmonary embolism Take 2 tablets (10 mg total) by mouth 2 (two) times a day for 3 days, THEN 1 tablet (5 mg total) 2 (two) times a day for 27 days. 66 tablet 03/03/20 25 Active levothyroxine (SYNTHROID) 75 mcg tabletIndicati ons:Hypothyroi dism, unspecified type Take 1 tablet (75 mcg total) by mouth mangle feeder before breakfast 30 tablet 3 03/18/20 25 026 Active oxyCODONE (ROXICODONE) 10 mg tabletIndicati ons:Pain Take 1 tablet (10 mg total) by mouth every 6 (six) hours as needed for pain 120 tablet 03/18/20 25 025 Active naloxone (NARCAN) 4 mg/actuation spray,non-aero solIndications :Chronic abdominal pain Administer 1 spray into affected nostril(s) as needed for opioid reversal or respiratory depression Call 911. Administer a single spray in one nostril. Repeat every 3 minutes as needed if no or minimal response. 2 each 2 03/18/20 25 Active escitalopram (LEXAPRO) 20 mg tablet Take 1 tablet (20 mg total) by mouth daily 30 tablet 03/27/20 Active traZODone (DESYREL) 50 mg tablet Take 1 tablet (50 mg total) by mouth nightly 30 tablet 03/30/20 25 026 Active hydrOXYzine (ATARAX) 25 mg tablet Take 1 tablet (25 mg total) by mouth every 4 (four) hours as needed for anxiety 60 tablet 03/31/20 25 Active escitalopram (LEXAPRO) 20 mg tablet Take 1 tablet (20 mg total) by mouth daily 30 tablet 01/06/20 25 025 Discontinued(R eorder) levothyroxine (SYNTHROID) 75 mcg tablet Take 1 tablet (75 mcg total) by mouth mangle feeder before breakfast 30 tablet 01/06/20 25 025 Discontinued(R eorder) traZODone (DESYREL) 50 mg tablet Take 1 tablet (50 mg total) by mouth nightly 30 tablet 01/06/20 25 025 Discontinued mirtazapine (REMERON) 15 mg tablet Take 1 tablet (15 mg total) by mouth nightly 30 tablet 01/31/20 25 025 Discontinued(T herapy completed) oxyCODONE (ROXICODONE) 10 mg tabletIndicati ons:Pain Take 1 tablet (10 mg total) by mouth every 6 (six) hours as needed for pain 50 tablet 02/19/20 25 025 Discontinued(S top Taking at Discharge) apixaban 5 mg (74 tabs) tablets,dose pack Take 10 mg (2 tablets) by mouth 2 (two) times a day for 7 days, then take 5 mg (1 tablet) by mouth 2 (two) times a day thereafter. 74 tablet 02/26/20 25 025 Discontinued hydrOXYzine (ATARAX) 25 mg tablet Take 1 tablet (25 mg total) by mouth every 4 (four) hours as needed for anxiety 60 tablet 03/03/20 25 025 Discontinued(R eorder) oxyCODONE (ROXICODONE) 10 mg tabletIndicati ons:Pain Take 1 tablet (10 mg total) by mouth every 4 (four) hours as needed for pain 42 tablet 03/03/20 25 025 Discontinued oxyCODONE (ROXICODONE) 5 mg immediate release tabletIndicati ons:Pain Take 1 tablet (5 mg total) by mouth every 4 (four) hours as needed for pain 28 tablet 03/03/20 25 Discontinued apixaban 5 mg (74 tabs) tablets,dose pack Take 10 mg (2 tablets) by mouth 2 (two) times a day for 7 days, then take 5 mg (1 tablet) by mouth 2 (two) times a day thereafter. 74 tablet 03/03/20 25 Discontinued(O ther) traZODone (DESYREL) 50 mg tablet Take 1 tablet (50 mg total) by mouth nightly 30 tablet 03/03/20 25 025 Discontinued(R eorder) oxyCODONE (ROXICODONE) 10 mg tabletIndicati ons:Pain Take 1 tablet (10 mg total) by mouth every 4 (four) hours as needed for pain 42 tablet 03/10/20 25 Discontinued(R eorder) oxyCODONE (ROXICODONE) 5 mg immediate release tabletIndicati ons:Pain Take 1 tablet (5 mg total) by mouth every 4 (four) hours as needed for pain 10mg every 4 hours as needed, you can take an additional 5 mg (total of 15 mg) every 4 hours if the pain is still severe after 10 mg. You should try to avoid taking additional doses to the best of your ability so that we can start to wean down this dose over time. 28 tablet 03/10/20 25 Discontinued(T herapy completed) ciprofloxacin (CIPRO) 500 mg tabletIndicati ons:Urinary tract infection without hematuria, site unspecified Take 1 tablet (500 mg total) by mouth 2 (two) times a day for 5 days 10 tablet 03/18/20 25 Active Problems Problem Noted Date Diagnosed Date Chronic abdominal pain 02/25/2025 Assessment & Plan (03/24/2025 10:00 AM CHEF): Chronic abdominal pain and MSK pain. She has been taking Oxycodone 15mg every 4 hours (not taking medication at night) since hospital discharge. Prior to hospitalizations early this year patient was not on opioids and reports most of her issues started around June. She has been on and off opioids prescribed during hospital discharge since June. We discussed the risks and benefits of opioids for pain controlled. Explained opioids are not a good management strategy for her type of pain. We will refill opioids today and start pain contract with goal of rapidly weaning her opioids in the next few months. - Pain contract today - UDS - Review PDMP - Return 2-4 weeks - Decreased dose to oxycodone 10mg every 6hrs prn - Continue lyrica 50mg BID, lidocaine patch prn, and tylenol 650mg q6hrs Orders: oxyCODONE (ROXICODONE) 10 mg tablet; Take 1 tablet (10 mg total) by mouth every 6 (six) hours as needed for pain naloxone (NARCAN) 4 mg/actuation spray,non-aerosol; Administer 1 spray into affected nostril(s) as needed for opioid reversal or respiratory depression Call 911. Administer a single spray in one nostril. Repeat every 3 minutes as needed if no or minimal response. Pain Management Profile; Future Assessment & Plan (03/03/2025 12:36 PM CHEF): Patient presented at the recommendation of her PCP (resident [facility]) for worsening abdominal pain. She has been taking oxycodone 10mg PRN (about 4x/day because she is afraid of building tolerance). Concern was greatest concern for UTI (negative culture, per below). 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 Plan: - Pain management consulted, signed off on 02/28. No intervention at this time. Planned to wean IV dilaudid, continue lyrica. - Tylenol scheduled, oxycodone 10 mg q4h PRN first line, oxy 5 mg prn q4 for breakthrough pain. - outpatient follow up with PCP for ongoing pain management - External pain management referral sent, discussed patient should coordinate with insurance to find accepting provider. - Continue home lyrica 50 BID Assessment & Plan (03/02/2025 6:13 PM CHEF): Patient presented at the recommendation of her PCP (resident [facility] clinic) for worsening abdominal pain. She has been taking oxycodone 10mg PRN (about 4x/day because she is afraid of building tolerance). Concern was greatest concern for UTI (negative culture, per below). 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 Plan: - Pain management consulted, signed off on 02/28. No intervention at this time. Planned to wean IV dilaudid, continue lyrica. - Tylenol scheduled, oxycodone 10 mg q4h PRN first line, oxy 5 mg prn q4 for breakthrough pain. - dc dilaudid. Avoid IV opioids in preparation for discharge tomorrow. - Continue home lyrica 50 BID Assessment & Plan (03/01/2025 11:07 AM CHEF): Patient presented at the recommendation of her PCP ([facility] clinic) for worsening abdominal pain. She has been taking oxycodone 10mg PRN (about 4x/day because she is afraid of building tolerance). Concern was greatest concern for UTI (negative culture, per below). 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 Plan: - Pain management consulted - Tylenol scheduled, oxycodone 15 mg q4h PRN first line, dilaudid 0.5 q12h PRN second line (discontinue at midnight) - Continue home lyrica Assessment & Plan (02/28/2025 10:54 AM CHEF): Patient presented at the recommendation of her PCP ([facility] clinic) for worsening abdominal pain. She has been taking oxycodone 10mg PRN (about 4x/day because she is afraid of building tolerance). Concern was greatest concern for UTI (negative culture, per below). 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 Plan: - Pain management consulted - Tylenol scheduled, oxycodone 15 mg q3 PRN first line, dilaudid 0.5 q4h PRN second line - Continue home lyrica Assessment & Plan (02/27/2025 10:08 AM CHEF): Patient presented at the recommendation of her PCP ([facility] clinic) for worsening abdominal pain. She has been taking oxycodone 10mg PRN (about 4x/day because she is afraid of building tolerance). Concern was greatest concern for UTI (negative culture, per below). 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 Plan: - Pain management consulted - Tylenol scheduled, oxycodone 15 mg q3 PRN first line, dilaudid 0.5 q2h PRN second line - Continue home lyrica Assessment & Plan (02/26/2025 8:31 AM CHEF): Patient presented at the recommendation of her PCP (resident [facility] clinic) for worsening abdominal pain. She has been taking oxycodone 10mg PRN (about 4x/day because she is afraid of building tolerance). Concern was greatest concern for UTI (negative culture, per below). 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 Plan: - Pain management consulted - Tylenol scheduled, oxycodone 10 mg q3 PRN first line, dilaudid 1 q4h PRN second line (pending pain recs) - Continue home lyrica Assessment & Plan (02/25/2025 12:52 PM CHEF): Patient presented at the recommendation of her PCP (resident [facility] clinic) for worsening abdominal pain. She has been taking oxycodone 10mg PRN (about 4x/day because she is afraid of building tolerance). Concern was greatest concern for UTI (negative culture, per below). 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 Plan: - Pain management consulted - Tylenol scheduled, oxycodone 10mg q6 PRN first line, dilaudid 1 q4h PRN second line (pending pain recs) - Continue home lyrica Acute pulmonary embolism without acute cor pulmo nale 02/24/2025 Assessment & Plan (03/03/2025 12:36 PM CHEF): Pt endorses SOB, chest pain/tightness w L shoulder pain. On exam, pain seems to be more MSK in origin, though CTAP was concerning for PE findings. CTPE showed acute pulm embolism within R main pulm artery and extending into the R upper, middle and lower lobar and segmental pulm arteries. No evidence of R heart strain. - differentials for AHRF could include ADOLFO vs obesity hypoventilation syndrome as well - S-PESI score of >1, PERT team activated. PERT team determined low-intermediate risk. - TTE 02/25/25 without RHS. - Upper and lower venous duplex without DVT Plan: - Eliquis:10mg BID x7 days (02/27-03/05) and then 5mg BID for 6 months - Titrate O2 sat >92% - Walking o2 completed 03/03 - 2L at rest and exertion as of 03/02. Patient has O2 tanks at home already. - Lidocaine patch for MSK pain of shoulder and chest wall Assessment & Plan (03/02/2025 6:13 PM CHEF): Pt endorses SOB, chest pain/tightness w L shoulder pain. On exam, pain seems to be more MSK in origin, though CTAP was concerning for PE findings. CTPE showed acute pulm embolism within R main pulm artery and extending into the R upper, middle and lower lobar and segmental pulm arteries. No evidence of R heart strain. - differentials for AHRF could include ADOLFO vs obesity hypoventilation syndrome as well - S-PESI score of >1, PERT team activated. PERT team determined low-intermediate risk. - TTE 02/25/25 without RHS. - Upper and lower venous duplex without DVT Plan: - Eliquis:10mg BID x7 days (02/27-03/05) and then 5mg BID for 6 months - Titrate O2 sat >92% - Walking o2 completed today - 2L at rest and exertion as of 03/02. Patient has O2 tanks at home already. - Lidocaine patch for MSK pain of shoulder and chest wall Assessment & Plan (03/01/2025 6:18 AM CHEF): Pt endorses SOB, chest pain/tightness w L shoulder pain. On exam, pain seems to be more MSK in origin, though CTAP was concerning for PE findings. CTPE showed acute pulm embolism within R main pulm artery and extending into the R upper, middle and lower lobar and segmental pulm arteries. No evidence of R heart strain. - differentials for AHRF could include ADOLFO vs obesity hypoventilation syndrome as well - S-PESI score of >1, PERT team activated. PERT team determined low-intermediate risk. - TTE 02/25/25 without RHS. - Upper and lower venous duplex without DVT Plan: - Eliquis:10mg BID x7 days (02/27-03/05) and then 5mg BID for 6 months - Titrate O2 sat >92% - Walking o2 prior to d/c - Lidocaine patch for MSK pain of shoulder and chest wall Assessment & Plan (02/28/2025 10:54 AM CHEF): Pt endorses SOB, chest pain/tightness w L shoulder pain. On exam, pain seems to be more MSK in origin, though CTAP was concerning for PE findings. CTPE showed acute pulm embolism within R main pulm artery and extending into the R upper, middle and lower lobar and segmental pulm arteries. No evidence of R heart strain. - differentials for AHRF could include ADOLFO vs obesity hypoventilation syndrome as well - S-PESI score of >1, PERT team activated. PERT team determined low-intermediate risk. - TTE 02/25/25 without RHS. - Upper and lower venous duplex without DVT Plan: - Eliquis:10mg BID x7 days (02/27-03/05) and then 5mg BID for 6 months - Titrate O2 sat >92% - Walking o2 prior to d/c - Lidocaine patch for MSK pain of shoulder and chest wall Assessment & Plan (02/27/2025 10:08 AM CHEF): Pt endorses SOB, chest pain/tightness w L shoulder pain. On exam, pain seems to be more MSK in origin, though CTAP was concerning for PE findings. CTPE showed acute pulm embolism within R main pulm artery and extending into the R upper, middle and lower lobar and segmental pulm arteries. No evidence of R heart strain. - differentials for AHRF could include ADOFLO vs obesity hypoventilation syndrome as well - S-PESI score of >1, PERT team activated. PERT team determined low-intermediate risk. - TTE 02/25/25 without RHS. - Upper and lower venous duplex without DVT Plan: - Start Eliquis load today: 10mg BID x7 days (02/27-03/05) and then 5mg BID for 6 months - Titrate O2 sat >92% - Walking o2 prior to d/c - Lidocaine patch for MSK pain of shoulder and chest wall Assessment & Plan (02/26/2025 7:18 AM CHEF): Patient with intermediate low risk PE with no evidence of RV strain and negative biomarkers. CTA chest with large right main PE. Provoked in the setting of recent surgery and immobility. Recommend transition to DOAC prior to discharge when safe to do so. Wean oxygen for a goal SpO2 >90%. We will set her up in our PE clinic at discharge. Recommendations: - recommend transition from lovenox to apixaban when safe to do so - Wean oxygen for a goal SpO2>90%. Will need a walking oxygen assessment prior to discharge - Will set up in pulmonology clinic at discharge. Assessment & Plan (02/26/2025 1:05 PM CHEF): Pt endorses SOB, chest pain/tightness w L shoulder pain. On exam, pain seems to be more MSK in origin, though CTAP was concerning for PE findings. CTPE showed acute pulm embolism within R main pulm artery and extending into the R upper, middle and lower lobar and segmental pulm arteries. No evidence of R heart strain. - differentials for AHRF could include ADOLFO vs obesity hypoventilation syndrome as well - S-PESI score of >1, PERT team activated. PLAN: - PERT team deemed pt not at high risk and currently no need for thrombectomy - follow up upper and lower extremity duplex US - therapeutic lovenox daily -- plan to switch to DOAC soon - titrate O2 sat >92% - walking o2 prior to d/c - lidocaine patch for MSK pain of shoulder and chest wall Assessment & Plan (02/25/2025 12:52 PM CHEF): Pt endorses SOB, chest pain/tightness w L shoulder pain. On exam, pain seems to be more MSK in origin, though CTAP was concerning for PE findings. CTPE showed acute pulm embolism within R main pulm artery and extending into the R upper, middle and lower lobar and segmental pulm arteries. No evidence of R heart strain. - differentials for AHRF could include ADOLFO vs obesity hypoventilation syndrome as well - S-PESI score of >1, PERT team activated. PLAN: - PERT team deemed pt not at high risk and currently no need for thrombectomy - therapeutic lovenox daily -- plan to switch to DOAC soon - titrate O2 sat >92% - lidocaine patch for MSK pain of shoulder and chest wall Assessment & Plan (02/24/2025 1:45 PM CHEF): Pt endorses SOB, chest pain/tightness w L shoulder pain. On exam, pain seems to be more MSK in origin, though CTAP was concerning for PE findings. CTPE showed acute pulm embolism within R main pulm artery and extending into the R upper, middle and lower lobar and segmental pulm arteries. No evidence of R heart strain. - differentials for AHRF could include ADOLFO vs obesity hypoventilation syndrome as well - S-PESI score of >1, PERT team activated. 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 Per CRS note on 02/18, colonic anastamosis intact with bladder leak on CT cystogram. Plan was for cystogram in near future to assess bladder leak. - Pt this admission has significant pyuria on UA with symptoms of dysuria, frequency and urgency; will treat based on this. - Curbsided CRS regarding cystourogram; reasonable to perform inpatient and if there is a bladder leak, leave the mcclelland and retry when discharged. If no bladder leak, can do void trial and take down mcclelland. 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 Patient and I discussed what outpatient strategies were available for her pain control and to address her calcium, which are likely insufficient for her needs. 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 Patient should return to care once discharged -- I will order a pain management referral urgently to expedite her connection to care. 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 Patient and I discussed what outpatient strategies were available for her pain control and to address her calcium, which are likely insufficient for her needs. 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 Patient should return to care once discharged -- I will order a pain management referral urgently to expedite her connection to care. CKD stage 3b, GFR 30-44 ml/min 01/19/2025 Assessment & Plan (03/03/2025 7:32 AM CHEF): Patient with Cr 1.54 on arrival to ED. Baseline ~ 1.3-1.4. Improved with fluids. Last Cr 1.51 Assessment & Plan (03/02/2025 6:13 PM CHEF): Patient with Cr 1.54 on arrival to ED. Baseline ~ 1.3-1.4. Improved with fluids. Last Cr 1.35 Assessment & Plan (03/01/2025 6:18 AM CHEF): Patient with Cr 1.54 on arrival to ED. Baseline ~ 1.3-1.4. Improved with fluids. Assessment & Plan (02/28/2025 5:56 AM CHEF): Patient with Cr 1.54 on arrival to ED. Baseline ~ 1.3-1.4. Improved with fluids. Assessment & Plan (02/27/2025 6:13 AM CHEF): Patient with Cr 1.54 on arrival to ED. Baseline ~ 1.3-1.4. Improved with fluids. Assessment & Plan (02/26/2025 7:14 AM CHEF): Patient with Cr 1.54 on arrival to ED. Baseline ~ 1.3. Improved with fluids. Assessment & Plan (02/25/2025 9:02 AM CHEF): Patient with Cr 1.54 on arrival to ED. Baseline ~ 1.3. Improved with fluids. Assessment & Plan (02/24/2025 1:45 PM CHEF): Baseline creatinine 1.2-1.3, OA 1.5. Suspect prerenal in etiology 2/2 poor oral intake, though also could be intrinsic given UTI. Assessment & Plan (01/20/2025 1:08 PM CDT): - unclear baseline Cr with frequent hospitalizations, ~1.2-1.3 - 12/15- had worsening creatinine 1.61, renal ultrasound no obstruction, no hydronephrosis, no stone, has focal prominence of left lower pole nonurgent renal CT or MRI- Likely ATN iso episode of hypotension, resolved - 12/29 increased again to 1.73 - Fe urea 43% s/o intrinsic renal etiology - ATN from brief hypotensive episodes vs AIN from beta lactam abx - 12/31 - worsening confusion with asterixis, vbg with pH 7.2 , HCO3 15, pCO2 40 suggestive of metabolic encephalopathy 2/2 RANDOLPH and metabolic acidosis with impaired respiratory compensation due to oversedation with opioids/BZDs 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--> Held all sedating meds - oxycodone IR scheduled and prn, lyrica, compazine, trazodone, clonazepam - Kidney function improving Cr 1.96 --> 1.8--> 1.74--> 1.6->1.72 - nephro o/p referral sent -01/10 Cr=1.94-give 1 liter LR with previous multiple stools and monitor -01/11 Cr=1.94-repeat 1 liter LR infusion -01/12 Cr=1.84-repeat IVF's - 01/13 - creatinine improved back to 1.6 ~ which is most likely 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 01/16- diarrhea again, restarted LR @ 75ml/hr- will continue through surgery 01/16-01/19- creatinine fluctuating, but grossly has remained stable, no RANDOLPH 1.87 today<-- 1.64 <--1.73<--1.83 Assessment & Plan (01/19/2025 8:40 PM CDT): - unclear baseline Cr with frequent hospitalizations, ~1.2-1.3 - 12/15- had worsening creatinine 1.61, renal ultrasound no obstruction, no hydronephrosis, no stone, has focal prominence of left lower pole nonurgent renal CT or MRI- Likely ATN iso episode of hypotension, resolved - 12/29 increased again to 1.73 - Fe urea 43% s/o intrinsic renal etiology - ATN from brief hypotensive episodes vs AIN from beta lactam abx - 12/31 - worsening confusion with asterixis, vbg with pH 7.2 , HCO3 15, pCO2 40 suggestive of metabolic encephalopathy 2/2 RANDOLPH and metabolic acidosis with impaired respiratory compensation due to oversedation with opioids/BZDs 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--> Held all sedating meds - oxycodone IR scheduled and prn, lyrica, compazine, trazodone, clonazepam - Kidney function improving Cr 1.96 --> 1.8--> 1.74--> 1.6->1.72 - nephro o/p referral sent -01/10 Cr=1.94-give 1 liter LR with previous multiple stools and monitor -01/11 Cr=1.94-repeat 1 liter LR infusion -01/12 Cr=1.84-repeat IVF's - 01/13 - creatinine improved back to 1.6 ~ which is most likely 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 01/16- diarrhea again, restarted LR @ 75ml/hr- will continue through surgery 01/16-01/19- creatinine fluctuating, but grossly has remained stable, no RANDOLPH 1.87 today<-- 1.64 <--1.73<--1.83 Iron deficiency anemia 01/12/2025 Assessment & Plan (01/20/2025 1:08 PM CDT): 01/12-Hgb=8.0, Fe=18, ZTNO=786, Tx Sat=14%-tx with 1gm IV infed Assessment & Plan (01/19/2025 8:40 PM CDT): 01/12-Hgb=8.0, Fe=18, ELXM=142, Tx Sat=14%-tx with 1gm IV infed Assessment & Plan (01/18/2025 3:27 PM CDT): 01/12-Hgb=8.0, Fe=18, SMZO=816, Tx Sat=14%-tx with 1gm IV infed Assessment & Plan (01/17/2025 2:32 PM CDT): 01/12-Hgb=8.0, Fe=18, OPJY=313, Tx Sat=14%-tx with 1gm IV infed Assessment & Plan (01/16/2025 9:26 PM CDT): 01/12-Hgb=8.0, Fe=18, LHRE=741, Tx Sat=14%-tx with 1gm IV infed Assessment & Plan (01/15/2025 9:08 PM CDT): 01/12-Hgb=8.0, Fe=18, LBCN=319, Tx Sat=14%-tx with 1gm IV infed Assessment & Plan (01/14/2025 11:06 PM CDT): 01/12-Hgb=8.0, Fe=18, HVXK=423, Tx Sat=14%-tx with 1gm IV infed Assessment & Plan (01/13/2025 8:04 PM CDT): 01/12-Hgb=8.0, Fe=18, GDRT=365, Tx Sat=14%-tx with 1gm IV infed Assessment & Plan (01/12/2025 3:16 PM CDT): 01/12-Hgb=8.0, Fe=18, RKFM=292, Tx Sat=14%-tx with 1gm IV infed Positive blood cultures 12/31/2024 Assessment & Plan (01/06/2025 5:36 PM CDT): - Fevered 12/24, bcx + ruddy albicans as above. Follow up cx 12/27 to document clearance with MRSE, initially thought to be a contaminant. Repeat cx 9/7 NG. Bcx sent again 12/29 with MRSE, repeat cx / NG so far. MRSE felt to be contaminants. - Reached out to micro to add on susceptibilities to MRSE, completed with vastly differing MICs for linezolid, felt to be contaminants. - Currently on tedizolid as above - Bcx 12/30 negative Recommendations - Continue antibiotics as above, MRSE bcx felt to be contaminants as she is not fevering and feeling well. Assessment & Plan (12/31/2024 2:55 PM CDT): - Fevered 12/24, bcx + ruddy albicans as above. Follow up cx 12/27 to document clearance with MRSE, initially thought to be a contaminant. Repeat cx 9/7 NG. Bcx sent again 12/29 with MRSE, repeat cx 9/9 NG so far. - Reached out to micro to add on susceptibilities to MRSE, in process - Currently on tedizolid as above - If bcx from 12/30 turn positive, please send repeat blood cx Type 2 diabetes mellitus with chronic kidney dis ease 12/30/2024 Assessment & Plan (03/03/2025 7:32 AM CHEF): A1c 5.1% (02/23/2025). Did have one prior A1c of 7.4%, however has had euglycemia since. - monitor on daily CMP. Assessment & Plan (03/02/2025 6:13 PM CHEF): A1c 5.1% (02/23/2025). Did have one prior A1c of 7.4%, however has had euglycemia since. - monitor on daily CMP. Assessment & Plan (03/01/2025 6:18 AM CHEF): A1c 5.1% (02/23/2025). Did have one prior A1c of 7.4%, however has had euglycemia since. Will opt to monitor with daily BMPs and consider SSI if necessary. Assessment & Plan (02/28/2025 5:56 AM CHEF): A1c 5.1% (02/23/2025). Did have one prior A1c of 7.4%, however has had euglycemia since. Will opt to monitor with daily BMPs and consider SSI if necessary. Assessment & Plan (02/27/2025 6:13 AM CHEF): A1c 5.1% (02/23/2025). Did have one prior A1c of 7.4%, however has had euglycemia since. Will opt to monitor with daily BMPs and consider SSI if necessary. Assessment & Plan (02/26/2025 7:14 AM CHEF): A1c 5.1% (02/23/2025). Did have one prior A1c of 7.4%, however has had euglycemia since. Will opt to monitor with daily BMPs and consider SSI if necessary. Assessment & Plan (02/25/2025 6:23 AM CHEF): A1c 5.1% (02/23/2025). Did have one prior A1c of 7.4%, however has had euglycemia since. Will opt to monitor with daily BMPs and consider SSI if necessary. Assessment & Plan (02/24/2025 9:27 AM CHEF): A1c 5.1% (02/23/2025). Did have one prior A1c of 7.4%, however has had euglycemia since. Will opt to monitor with daily BMPs and consider SSI if necessary. Assessment & Plan (01/20/2025 1:08 PM CDT): - BG well-controlled. D/c accuchecks Assessment & Plan (01/19/2025 8:40 PM CDT): - BG well-controlled. D/c accuchecks Assessment & Plan (01/18/2025 3:27 PM CDT): - BG well-controlled. D/c accuchecks Assessment & Plan (01/17/2025 2:32 PM CDT): - 2 A1c 7.4. continue to hold tresiba , BG well-controlled Assessment & Plan (01/16/2025 9:26 PM CDT): - 2 A1c 7.4. continue to hold tresiba , BG well-controlled Assessment & Plan (01/15/2025 9:08 PM CDT): - 2 A1c 7.4. continue to hold tresiba , BG well-controlled Assessment & Plan (01/14/2025 11:06 PM CDT): - 2 A1c 7.4. continue to hold tresiba , BG well-controlled Assessment & Plan (01/13/2025 8:04 PM CDT): - 2 A1c 7.4. continue to hold tresiba , BG well-controlled Assessment & Plan (01/12/2025 1:20 PM CDT): - 2 A1c 7.4. continue to hold tresiba , BG well-controlled Assessment & Plan (01/11/2025 12:18 PM CDT): - 2/21 A1c 7.4. continue to hold tresiba , BG well-controlled Assessment & Plan (01/10/2025 11:26 AM CDT): - 2/21 A1c 7.4. continue to hold tresiba , BG well-controlled Assessment & Plan (01/09/2025 11:58 AM CDT): - 2/ A1c 7.4. continue to hold tresiba , BG well-controlled Assessment & Plan (01/08/2025 10:29 AM CDT): - 2/ A1c 7.4. continue to hold tresiba , BG well-controlled Assessment & Plan (01/07/2025 1:32 PM CDT): - 2/ A1c 7.4. continue to hold tresiba , BG well-controlled Assessment & Plan (01/06/2025 1:47 PM CDT): - 2 A1c 7.4. continue to hold tresiba , BG well-controlled Assessment & Plan (01/05/2025 8:19 PM CDT): - 2 A1c 7.4. continue to hold tresiba , BG well-controlled Assessment & Plan (01/04/2025 2:44 PM CDT): - 2 A1c 7.4. continue to hold tresiba , BG well-controlled Assessment & Plan (01/03/2025 6:12 PM CDT): - 2 A1c 7.4. continue to hold tresiba Assessment & Plan (01/02/2025 7:31 PM CDT): - 2/21 A1c 7.4. continue to hold tresiba Assessment & Plan (01/01/2025 6:42 PM CDT): - 06/13 A1c 7.4. continue to hold tresiba Assessment & Plan (12/31/2024 7:53 PM CDT): - 06/13 A1c 7.4, - hold tresiba 5 units tonight given renal failure - blood sugars have been low - mid 100s Assessment & Plan (12/30/2024 4:26 PM CDT): - 06/13 A1c 7.4, on Tresiba and SSI Candidemia- resolved 12/26/2024 Assessment & Plan (01/20/2025 1:08 PM CDT): - 12/24 Tmax=38.7, WBC=7.79k-check cultures-pending, viral swab(-) - 12/25 Tmax=39.2, hemodynamically stable, per ID monitor and hold on empiric IV abx, monitor-BCx's (+) for ruddy albicans-start micafungin - 12/26 ECHO with no vegetations - 12/27 (-) exam per ophtha for ocular fungemia - 12/28 PICC line pulled, repeat BCx sent, 12/27 BC with staph epi-likely contaminant 12/29 - growing staph epidermidis -> likely contaminant 12/30 - Repeat blood cultures sent on 12/30 NGTD - 01/03- picc line placed for home Na thisulphate at discharge - 01/09/2025- completed 2 weeks of iv micafungin from neg cx 12/27 Assessment & Plan (01/19/2025 8:40 PM CDT): - 12/24 Tmax=38.7, WBC=7.79k-check cultures-pending, viral swab(-) - 12/25 Tmax=39.2, hemodynamically stable, per ID monitor and hold on empiric IV abx, monitor-BCx's (+) for ruddy albicans-start micafungin - 12/26 ECHO with no vegetations - 12/27 (-) exam per ophtha for ocular fungemia - 12/28 PICC line pulled, repeat BCx sent, 12/27 BC with staph epi-likely contaminant 12/29 - growing staph epidermidis -> likely contaminant 12/30 - Repeat blood cultures sent on 12/30 NGTD - 01/03- picc line placed for home Na thisulphate at discharge - 01/09/2025- completed 2 weeks of iv micafungin from neg cx 12/27 Assessment & Plan (01/18/2025 3:27 PM CDT): -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, UA (10/30)- nitrite+, leuk esterase+, pyuria, bacteriuria+, Urine cx- contaminated- mixed krzysztfo -CT A/P 10/30- no pyelonephritis, notable for acute on chronic diverticulitis, and 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 12/04/2024 - replaced with 22Fr [address] way mcclelland catheter; irrigation 30cc bid - 12/24 Tmax=38.7, WBC=7.79k-check cultures-pending, viral swab(-) - 12/25 Tmax=39.2, hemodynamically stable, per ID monitor and hold on empiric IV abx, monitor-BCx's (+) for ruddy albicans-start micafungin - 12/26 ECHO with no vegetations - 12/27 (-) exam per ophtha for ocular fungemia-will ask for peripheral IV-BCx x 1 sent - 12/28 PICC line pulled, repeat BCx sent, 12/27 BC with staph epi-likely contaminant 12/29 - growing staph epidermidis -> likely contaminant 12/30 - Repeat blood cultures sent on 12/30 NGTD - 01/03- picc line placed for home Na thisulphate at discharge - 01/09/2025- completed 2 weeks of iv micafungin from neg cx 12/27 Assessment & Plan (01/17/2025 2:32 PM CDT): -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, UA (10/30)- nitrite+, leuk esterase+, pyuria, bacteriuria+, Urine cx- contaminated- mixed krzysztof -CT A/P 10/30- no pyelonephritis, notable for acute on chronic diverticulitis, and 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 12/04/2024 - replaced with 22Fr 3 way mcclelland catheter; irrigation 30cc bid - 12/24 Tmax=38.7, WBC=7.79k-check cultures-pending, viral swab(-) - 12/25 Tmax=39.2, hemodynamically stable, per ID monitor and hold on empiric IV abx, monitor-BCx's (+) for ruddy albicans-start micafungin - 12/26 ECHO with no vegetations - 12/27 (-) exam per ophtha for ocular fungemia-will ask for peripheral IV-BCx x 1 sent - 12/28 PICC line pulled, repeat BCx sent, 12/27 BC with staph epi-likely contaminant 12/29 - growing staph epidermidis -> likely contaminant 12/30 - Repeat blood cultures sent on 12/30 NGTD - 01/03- picc line placed for home Na thisulphate at discharge - 01/09/2025- completed 2 weeks of iv micafungin from neg cx 12/27 Assessment & Plan (01/16/2025 9:26 PM CDT): -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, UA (10/30)- nitrite+, leuk esterase+, pyuria, bacteriuria+, Urine cx- contaminated- mixed krzysztof -CT A/P 10/30- no pyelonephritis, notable for acute on chronic diverticulitis, and 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 12/04/2024 - replaced with 22Fr [address] way mcclelland catheter; irrigation 30cc bid - 12/24 Tmax=38.7, WBC=7.79k-check cultures-pending, viral swab(-) - 12/25 Tmax=39.2, hemodynamically stable, per ID monitor and hold on empiric IV abx, monitor-BCx's (+) for ruddy albicans-start micafungin - 12/26 ECHO with no vegetations - 12/27 (-) exam per ophtha for ocular fungemia-will ask for peripheral IV-BCx x 1 sent - 12/28 PICC line pulled, repeat BCx sent, 12/27 BC with staph epi-likely contaminant 12/29 - growing staph epidermidis -> likely contaminant 12/30 - Repeat blood cultures sent on 12/30 NGTD - 01/03- picc line placed for home Na thisulphate at discharge - 01/09/2025- completed 2 weeks of iv micafungin from neg cx 12/27 Assessment & Plan (01/15/2025 9:08 PM CDT): -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, UA (10/30)- nitrite+, leuk esterase+, pyuria, bacteriuria+, Urine cx- contaminated- mixed krzysztof -CT A/P 10/30- no pyelonephritis, notable for acute on chronic diverticulitis, and 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 Antibiotics: Zosyn (11/05 - 11/18) Linezolid (10/31 - 11/18) Unasyn (11/01 - 11/05)Augmentin (10/30 - 10/31), Cefe, metronidazole (12/12-12/21) Augmentin BID (11/18-) Tedizolid 200mg daily (11/18-) until surgery with CRS - - needs new PA for tedizolid - denied -appealing - 01/14: - PA for tedizolid was appealed- denial was upheld, with a 24 hour window to provide additional documentation, Discussed with ID team, who documented the necessity for prolonged antibiotic course , which was faxed over by the CM 01/15- PA pending - Mcclelland indication: 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 12/04/2024 - replaced with 22Fr [address] mcclelland catheter; irrigation 30cc bid - 12/24 Tmax=38.7, WBC=7.79k-check cultures-pending, viral swab(-) - 12/25 Tmax=39.2, hemodynamically stable, per ID monitor and hold on empiric IV abx, monitor-BCx's (+) for ruddy albicans-start micafungin - 12/26 ECHO with no vegetations - 12/27 (-) exam per ophtha for ocular fungemia-will ask for peripheral IV-BCx x 1 sent - 12/28 PICC line pulled, repeat BCx sent, 12/27 BC with staph epi-likely contaminant 12/29 - growing staph epidermidis -> likely contaminant 12/30 - Repeat blood cultures sent on 12/30 NGTD - 01/03- picc line placed for home Na thisulphate at discharge - 01/09/2025- completed 2 weeks of iv micafungin from neg cx 12/27 Assessment & Plan (01/14/2025 11:05 PM CDT): -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, UA (10/30)- nitrite+, leuk esterase+, pyuria, bacteriuria+, Urine cx- contaminated- mixed krzysztof -CT A/P 10/30- no pyelonephritis, notable for acute on chronic diverticulitis, and 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 12/04/2024 - replaced with 22Fr [address] mcclelland catheter; irrigation 30cc bid - 12/24 Tmax=38.7, WBC=7.79k-check cultures-pending, viral swab(-) - 12/25 Tmax=39.2, hemodynamically stable, per ID monitor and hold on empiric IV abx, monitor-BCx's (+) for ruddy albicans-start micafungin - 12/26 ECHO with no vegetations - 12/27 (-) exam per ophtha for ocular fungemia-will ask for peripheral IV-BCx x 1 sent - 12/28 PICC line pulled, repeat BCx sent, 12/27 BC with staph epi-likely contaminant 12/29 - growing staph epidermidis -> likely contaminant 12/30 - Repeat blood cultures sent on 12/30 NGTD - 01/03- picc line placed for home Na thisulphate at discharge - 01/09/2025- completed 2 weeks of iv micafungin from neg cx 12/27 Assessment & Plan (01/13/2025 8:04 PM CDT): -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, UA (10/30)- nitrite+, leuk esterase+, pyuria, bacteriuria+, Urine cx- contaminated- mixed krzysztof -CT A/P 10/30- no pyelonephritis, notable for acute on chronic diverticulitis, and 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 12/04/2024 - replaced with 22Fr [address] mcclelland catheter; irrigation 30cc bid - 12/24 Tmax=38.7, WBC=7.79k-check cultures-pending, viral swab(-) - 12/25 Tmax=39.2, hemodynamically stable, per ID monitor and hold on empiric IV abx, monitor-BCx's (+) for ruddy albicans-start micafungin - 12/26 ECHO with no vegetations - 12/27 (-) exam per ophtha for ocular fungemia-will ask for peripheral IV-BCx x 1 sent - 12/28 PICC line pulled, repeat BCx sent, 12/27 BC with staph epi-likely contaminant 12/29 - growing staph epidermidis -> likely contaminant 12/30 - Repeat blood cultures sent on 12/30 NGTD - 01/03- picc line placed for home Na thisulphate at discharge - 01/09/2025- completed 2 weeks of iv micafungin from neg cx 12/27 Assessment & Plan (01/12/2025 1:20 PM CDT): -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 12/04/2024 - replaced with 22Fr [address] mcclelland catheter; irrigation 30cc bid - 12/24 Tmax=38.7, WBC=7.79k-check cultures-pending, viral swab(-) - 12/25 Tmax=39.2, hemodynamically stable, per ID monitor and hold on empiric IV abx, monitor-BCx's (+) for ruddy albicans-start micafungin - 12/26 ECHO with no vegetations - 12/27 (-) exam per ophtha for ocular fungemia-will ask for peripheral IV-BCx x 1 sent - 12/28 PICC line pulled, repeat BCx sent, 12/27 BC with staph epi-likely contaminant 12/29 - growing staph epidermidis -> likely contaminant 12/30 - Repeat blood cultures sent on 12/30 NGTD - 01/03- picc line placed for home Na thisulphate at discharge - but decrease dose to 12.5 gm 3X/week - patient to receive 2 weeks of iv micafungin from when the cultures became neg ie (Last growth of ruddy noted on cx from 12/24 ) neg cx n 12/27 - EOT 01/09/2501/04- does not feel ready to be dicharged, wants to continue intensive PT. 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 12/04/2024 - replaced with 22Fr [address] mcclelland catheter; irrigation 30cc bid - 12/24 Tmax=38.7, WBC=7.79k-check cultures-pending, viral swab(-) - 12/25 Tmax=39.2, hemodynamically stable, per ID monitor and hold on empiric IV abx, monitor-BCx's (+) for ruddy albicans-start micafungin - 12/26 ECHO with no vegetations - 12/27 (-) exam per ophtha for ocular fungemia-will ask for peripheral IV-BCx x 1 sent - 12/28 PICC line pulled, repeat BCx sent, 12/27 BC with staph epi-likely contaminant 12/29 - growing staph epidermidis -> likely contaminant 12/30 - Repeat blood cultures sent on 12/30 NGTD - 01/03- picc line placed for home Na thisulphate at discharge - but decrease dose to 12.5 gm 3X/week - patient to receive 2 weeks of iv micafungin from when the cultures became neg ie (Last growth of ruddy noted on cx from 12/24 ) neg cx n 12/27 - EOT 01/09/2501/04- does not feel ready to be dicharged, wants to continue intensive PT. 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 12/04/2024 - replaced with 22Fr [address] mcclelland catheter; irrigation 30cc bid - 12/24 Tmax=38.7, WBC=7.79k-check cultures-pending, viral swab(-) - 12/25 Tmax=39.2, hemodynamically stable, per ID monitor and hold on empiric IV abx, monitor-BCx's (+) for ruddy albicans-start micafungin - 12/26 ECHO with no vegetations - 12/27 (-) exam per ophtha for ocular fungemia-will ask for peripheral IV-BCx x 1 sent - 12/28 PICC line pulled, repeat BCx sent, 12/27 BC with staph epi-likely contaminant 12/29 - growing staph epidermidis -> likely contaminant 12/30 - Repeat blood cultures sent on 12/30 NGTD - 01/03- picc line placed for home Na thisulphate at discharge - but decrease dose to 12.5 gm 3X/week - patient to receive 2 weeks of iv micafungin from when the cultures became neg ie (Last growth of ruddy noted on cx from 12/24 ) neg cx n 12/27 - EOT 01/09/25 at 1700 01/04- does not feel ready to be dicharged, wants to continue intensive PT. 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 12/04/2024 - replaced with 22Fr [address] mcclelland catheter; irrigation 30cc bid - 12/24 Tmax=38.7, WBC=7.79k-check cultures-pending, viral swab(-) - 12/25 Tmax=39.2, hemodynamically stable, per ID monitor and hold on empiric IV abx, monitor-BCx's (+) for ruddy albicans-start micafungin - 12/26 ECHO with no vegetations - 12/27 (-) exam per ophtha for ocular fungemia-will ask for peripheral IV-BCx x 1 sent - 12/28 PICC line pulled, repeat BCx sent, 12/27 BC with staph epi-likely contaminant 12/29 - growing staph epidermidis -> likely contaminant 12/30 - Repeat blood cultures sent on 12/30 NGTD - 01/03- picc line placed for home Na thisulphate at discharge - but decrease dose to 12.5 gm 3X/week - patient to receive 2 weeks of iv micafungin from when the cultures became neg ie (Last growth of ruddy noted on cx from 12/24 ) neg cx n 12/27 - EOT 01/09/25 at 1700 01/04- does not feel ready to be dicharged, wants to continue intensive PT. 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 12/04/2024 - replaced with 22Fr 3 way mcclelland catheter; irrigation 30cc bid - 12/24 Tmax=38.7, WBC=7.79k-check cultures-pending, viral swab(-) - 12/25 Tmax=39.2, hemodynamically stable, per ID monitor and hold on empiric IV abx, monitor-BCx's (+) for ruddy albicans-start micafungin - 12/26 ECHO with no vegetations - 12/27 (-) exam per ophtha for ocular fungemia-will ask for peripheral IV-BCx x 1 sent - 12/28 PICC line pulled, repeat BCx sent, 12/27 BC with staph epi-likely contaminant 12/29 - growing staph epidermidis -> likely contaminant 12/30 - Repeat blood cultures sent on 12/30 NGTD - 01/03- picc line placed for home Na thisulphate at discharge - but decrease dose to 12.5 gm 3X/week - patient to receive 2 weeks of iv micafungin from when the cultures became neg ie (Last growth of ruddy noted on cx from 12/24 ) neg cx n 12/27 - EOT 01/09/25 at 1700 01/04- does not feel ready to be dicharged, wants to continue intensive PT. 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 12/04/2024 - replaced with 22Fr 3 way mcclelland catheter; irrigation 30cc bid - 12/24 Tmax=38.7, WBC=7.79k-check cultures-pending, viral swab(-) - 12/25 Tmax=39.2, hemodynamically stable, per ID monitor and hold on empiric IV abx, monitor-BCx's (+) for ruddy albicans-start micafungin - 12/26 ECHO with no vegetations - 12/27 (-) exam per ophtha for ocular fungemia-will ask for peripheral IV-BCx x 1 sent - 12/28 PICC line pulled, repeat BCx sent, 12/27 BC with staph epi-likely contaminant 12/29 - growing staph epidermidis -> likely contaminant 12/30 - Repeat blood cultures sent on 12/30 NGTD - 01/03- picc line placed for home Na thisulphate at discharge - but decrease dose to 12.5 gm 3X/week - patient to receive 2 weeks of iv micafungin from when the cultures became neg ie (Last growth of ruddy noted on cx from 12/24 ) neg cx n 12/27 - EOT 01/09/25 at 1700 01/04- does not feel ready to be dicharged, wants to continue intensive PT. 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 12/04/2024 - replaced with 22Fr 3 way mcclelland catheter; irrigation 30cc bid - 12/24 Tmax=38.7, WBC=7.79k-check cultures-pending, viral swab(-) - 12/25 Tmax=39.2, hemodynamically stable, per ID monitor and hold on empiric IV abx, monitor-BCx's (+) for ruddy albicans-start micafungin - 12/26 ECHO with no vegetations - 12/27 (-) exam per ophtha for ocular fungemia-will ask for peripheral IV-BCx x 1 sent - 12/28 PICC line pulled, repeat BCx sent, 12/27 BC with staph epi-likely contaminant 12/29 - growing staph epidermidis -> likely contaminant 12/30 - Repeat blood cultures sent on 12/30 NGTD - 01/03- picc line placed for home Na thisulphate at discharge - but decrease dose to 12.5 gm 3X/week - patient to receive 2 weeks of iv micafungin from when the cultures became neg ie (Last growth of ruddy noted on cx from 12/24 ) neg cx n 12/27 - EOT 01/09/25 at 1700 01/04- does not feel ready to be dicharged, wants to continue intensive PT. given recurrent admissions (>4 this year), will benefit from continued rehab to decrease risk of readmission, plan to finish antibiotics until 01/09, and then discharge Assessment & Plan (01/06/2025 5:36 PM CDT): Febrile, infections workup initiated; blood culture (05/25) from 12/24 growing ruddy albicans. TTE from 12/26 showed no evidence of infective endocarditis with all valves well visualized. PICC removed 12/28. Ophthalmology evaluated. Recommendations: - continue micafungin 100 mg Q 24 hours with plans for 2 weeks from ruddy blood culture clearance; cx cleared 12/27. 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 12/04/2024 - replaced with 22Fr 3 way mcclelland catheter; irrigation 30cc bid - 12/24 Tmax=38.7, WBC=7.79k-check cultures-pending, viral swab(-) - 12/25 Tmax=39.2, hemodynamically stable, per ID monitor and hold on empiric IV abx, monitor-BCx's (+) for ruddy albicans-start micafungin - 12/26 ECHO with no vegetations - 12/27 (-) exam per ophtha for ocular fungemia-will ask for peripheral IV-BCx x 1 sent - 12/28 PICC line pulled, repeat BCx sent, 12/27 BC with staph epi-likely contaminant 12/29 - growing staph epidermidis -> likely contaminant 12/30 - Repeat blood cultures sent on 12/30 NGTD Plan: - 01/03- picc line placed for home antibiotics - patient to receive 2 weeks of iv micafungin from when the cultures became neg ie (Last growth of ruddy noted on cx from 12/24 ) neg cx n 12/27 - EOT 01/09/2501/04- does not feel ready to be dicharged, wants to continue intensive PT. 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 12/04/2024 - replaced with 22Fr [address] way mcclelland catheter; irrigation 30cc bid - 12/24 Tmax=38.7, WBC=7.79k-check cultures-pending, viral swab(-) - 12/25 Tmax=39.2, hemodynamically stable, per ID monitor and hold on empiric IV abx, monitor-BCx's (+) for ruddy albicans-start micafungin - 12/26 ECHO with no vegetations - 12/27 (-) exam per ophtha for ocular fungemia-will ask for peripheral IV-BCx x 1 sent - 12/28 PICC line pulled, repeat BCx sent, 12/27 BC with staph epi-likely contaminant 12/29 - growing staph epidermidis -> likely contaminant 12/30 - Repeat blood cultures sent on 12/30 NGTD Plan: - 01/04- picc line placed for home antibiotics - patient to receive 2 weeks of iv micafungin from when the cultures became neg ie (Last growth of ruddy noted on cx from 12/24 ) ~01/07 -medically ready for discharge - CM was working on setting up her home infusion, but patient says she doesn't feel ready to leave and still feels weak . Of note, patient has had >4 hospital admissions since May, and is at high risk of readmission, especially in her current debilitated state. will plan to finish antifungal course inpatient on 01/07 , remove PICC line and then d/c with home PT/OT. 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 12/04/2024 - replaced with 22Fr [address] mccle[facility]and catheter; irrigation 30cc bid - 12/24 Tmax=38.7, WBC=7.79k-check cultures-pending, viral swab(-) - 12/25 Tmax=39.2, hemodynamically stable, per ID monitor and hold on empiric IV abx, monitor-BCx's (+) for ruddy albicans-start micafungin - 12/26 ECHO with no vegetations - 12/27 (-) exam per ophtha for ocular fungemia-will ask for peripheral IV-BCx x 1 sent - 12/28 PICC line pulled, repeat BCx sent, 12/27 BC with staph epi-likely contaminant 12/29 - growing staph epidermidis -> likely contaminant 12/30 - Repeat blood cultures sent on 12/30 NGTD Plan: - - blood cultures from 12/30- have been negative till date. 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 12/04/2024 - replaced with 22Fr [address] mcclelland catheter; irrigation 30cc bid - 12/24 Tmax=38.7, WBC=7.79k-check cultures-pending, viral swab(-) - 12/25 Tmax=39.2, hemodynamically stable, per ID monitor and hold on empiric IV abx, monitor-BCx's (+) for ruddy albicans-start micafungin - 12/26 ECHO with no vegetations - 12/27 (-) exam per ophtha for ocular fungemia-will ask for peripheral IV-BCx x 1 sent - 12/28 PICC line pulled, repeat BCx sent, 12/27 BC with staph epi-likely contaminant 12/29 - growing staph epidermidis , final report pending 12/30 - Repeat blood cultures sent on 12/30 NGTD, final report pending - f/u culture reports- patient to receive 2 weeks of iv micafungin from when the cultures became neg, will need PICC line for home iv abx therapy once cultures remain neg for 48 hours Assessment & Plan (01/01/2025 6:42 PM CDT): -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 12/04/2024 - replaced with 22Fr [address] mcclelland catheter; irrigation 30cc bid - 12/24 Tmax=38.7, WBC=7.79k-check cultures-pending, viral swab(-) - 12/25 Tmax=39.2, hemodynamically stable, per ID monitor and hold on empiric IV abx, monitor-BCx's (+) for ruddy albicans-start micafungin - 12/26 ECHO with no vegetations - 12/27 (-) exam per ophtha for ocular fungemia-will ask for peripheral IV-BCx x 1 sent - 12/28 PICC line pulled, repeat BCx sent, 12/27 BC with staph epi-likely contaminant 12/29 - growing staph epidermidis , final report pending Repeat blood cultures sent on 12/30 NGTD - f/u culture reports- patient to receive 2 weeks of iv micafungin from when the cultures became neg, will need PICC line for home iv abx therapy once cultures remain neg for 48 hours Assessment & Plan (12/31/2024 7:53 PM CDT): -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 12/04/2024 - replaced with 22Fr [address] mcclelland catheter; irrigation 30cc bid - 12/24 Tmax=38.7, WBC=7.79k-check cultures-pending, viral swab(-) - 12/25 Tmax=39.2, hemodynamically stable, per ID monitor and hold on empiric IV abx, monitor-BCx's (+) for ruddy albicans-start micafungin - 12/26 ECHO with no vegetations - 12/27 (-) exam per ophtha for ocular fungemia-will ask for peripheral IV-BCx x 1 sent - 12/28 PICC line pulled, repeat BCx sent, 12/27 BC with staph epi-likely contaminant 12/29 - growing staph epidermidis , final report pending Repeat blood cultures sent on 12/30 NGTD - f/u culture reports- patient to receive 2 weeks of iv micafungin from when the cultures became neg, will need PICC line for home iv abx therapy once cultures remain neg for 48 hours Assessment & Plan (12/30/2024 4:26 PM CDT): -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 12/04/2024 - replaced with 22Fr [address] mcclelland catheter; irrigation 30cc bid - 12/24 Tmax=38.7, WBC=7.79k-check cultures-pending, viral swab(-) - 12/25 Tmax=39.2, hemodynamically stable, per ID monitor and hold on empiric IV abx, monitor-BCx's (+) for ruddy albicans-start micafungin - 12/26 ECHO with no vegetations - 12/27 (-) exam per ophtha for ocular fungemia-will ask for peripheral IV-BCx x 1 sent - 12/28 PICC line pulled, repeat BCx sent, 12/27 BC with staph epi-likely contaminant 12/28- NGTD (prelim) 12/29 - now with GPCs in clusters (pelim) - ID following, repeat blood cx 12/30 ordered - f/u culture reports- patient to receive 2 weeks of iv micafungin from when the cultures became neg, will need PICC line for home iv abx therapy once cultures remain neg for 48 hours Assessment & Plan (12/31/2024 2:55 PM CDT): Febrile, infections workup initiated; blood culture (2/2) from 12/24 growing ruddy albicans. TTE from 12/26 showed no evidence of infective endocarditis with all valves well visualized. PICC removed 12/28. Ophthalmology evaluated. Recommendations: - continue micafungin 100 mg Q 24 hours with plans for 2 weeks from ruddy blood culture clearance. - CBC with diff + CMP weekly while on IV abx Assessment & Plan (12/26/2024 4:08 PM CDT): - blood culture (2/2) from 12/24 growing ruddy albicans - TTE from 12/26 showed no evidence of infective endocarditis with all valves well visualized - continue micafungin 100 mg Q 24 hours while awaiting Ruddy AST - obtain repeat blood cultures to ensure brenda of ruddy from bloodstream - remove PICC as soon as feasible - recommend consulting Ophthalmology given current candidemia and new visual disturbance (floaters) We will continue to follow. Goals of care, counseling/discussion 12/08/2024 Assessment & Plan (01/17/2025 2:32 PM CDT): Discussions been made with primary team, eap clinician and palliative. She does not want to be in pain, but would like to continue aggressive treatment including surgery. Assessment & Plan (01/16/2025 9:26 PM CDT): Discussions been made with primary team, eap clinician and palliative. She does not want to be in pain, but would like to continue aggressive treatment including surgery. Assessment & Plan (01/15/2025 9:08 PM CDT): Discussions been made with primary team, eap clinician and palliative. She does not want to be in pain, but would like to continue aggressive treatment including surgery. Assessment & Plan (01/14/2025 11:06 PM CDT): Discussions been made with primary team, eap clinician and palliative. She does not want to be in pain, but would like to continue aggressive treatment including surgery. Assessment & Plan (01/13/2025 8:04 PM CDT): Discussions been made with primary team, eap clinician and palliative. She does not want to be in pain, but would like to continue aggressive treatment including surgery. Assessment & Plan (01/12/2025 1:20 PM CDT): Discussions been made with primary team, eap clinician and palliative. She does not want to be in pain, but would like to continue aggressive treatment including surgery. Assessment & Plan (01/11/2025 12:18 PM CDT): Discussions been made with primary team, eap clinician and palliative. She does not want to be in pain, but would like to continue aggressive treatment including surgery. Assessment & Plan (01/10/2025 11:26 AM CDT): Discussions been made with primary team, eap clinician and palliative. She does not want to be in pain, but would like to continue aggressive treatment including surgery. Assessment & Plan (01/09/2025 11:58 AM CDT): Discussions been made with primary team, eap clinician and palliative. She does not want to be in pain, but would like to continue aggressive treatment including surgery. Assessment & Plan (01/08/2025 10:29 AM CDT): Discussions been made with primary team, eap clinician and palliative. She does not want to be in pain, but would like to continue aggressive treatment including surgery. Assessment & Plan (01/07/2025 1:32 PM CDT): Discussions been made with primary team, eap clinician and palliative. She does not want to be in pain, but would like to continue aggressive treatment including surgery. Assessment & Plan (01/06/2025 1:47 PM CDT): Discussions been made with primary team, eap clinician and palliative. She does not want to be in pain, but would like to continue aggressive treatment including surgery. Assessment & Plan (01/05/2025 8:19 PM CDT): Discussions been made with primary team, eap clinician and palliative. She does not want to be in pain, but would like to continue aggressive treatment including surgery. Assessment & Plan (01/04/2025 2:44 PM CDT): Discussions been made with primary team, eap clinician and palliative. She does not want to be in pain, but would like to continue aggressive treatment including surgery. Assessment & Plan (01/03/2025 6:12 PM CDT): Discussions been made with primary team, eap clinician and palliative. She does not want to be in pain, but would like to continue aggressive treatment including surgery. Assessment & Plan (01/02/2025 7:31 PM CDT): Discussions been made with primary team, eap clinician and palliative. She does not want to be in pain, but would like to continue aggressive treatment including surgery. Assessment & Plan (01/01/2025 6:42 PM CDT): Discussions been made with primary team, eap clinician and palliative. She does not want to be in pain, but would like to continue aggressive treatment including surgery. Assessment & Plan (12/31/2024 6:52 PM CDT): Discussions been made with primary team, eap clinician and palliative. She does not want to be in pain, but would like to continue aggressive treatment including surgery. Assessment & Plan (12/30/2024 4:26 PM CDT): Discussions been made with primary team, eap clinician and palliative. She does not want to be in pain, but would like to continue aggressive treatment including surgery. Assessment & Plan (12/29/2024 10:35 AM CDT): Discussions been made with primary team, eap clinician and palliative. She does not want to be in pain, but would like to continue aggressive treatment including surgery. Assessment & Plan (12/28/2024 11:23 AM CDT): Discussions been made with primary team, eap clinician and palliative. She does not want to be in pain, but would like to continue aggressive treatment including surgery. Assessment & Plan (12/27/2024 10:44 AM CDT): Discussions been made with primary team, eap clinician and palliative. She does not want to be in pain, but would like to continue aggressive treatment including surgery. Assessment & Plan (12/26/2024 1:28 PM CDT): Discussions been made with primary team, eap clinician and palliative. She does not want to be in pain, but would like to continue aggressive treatment including surgery. Assessment & Plan (12/25/2024 1:36 PM CDT): Discussions been made with primary team, eap clinician and palliative. She does not want to be in pain, but would like to continue aggressive treatment including surgery. Assessment & Plan (12/24/2024 12:30 PM CDT): Discussions been made with primary team, eap clinician and palliative. She does not want to be in pain, but would like to continue aggressive treatment including surgery. Assessment & Plan (12/23/2024 12:16 PM CDT): Discussions been made with primary team, eap clinician and palliative. She does not want to be in pain, but would like to continue aggressive treatment including surgery. Assessment & Plan (12/22/2024 7:49 AM CDT): Discussions been made with primary team, eap clinician and palliative. She does not want to be in pain, but would like to continue aggressive treatment including surgery. Assessment & Plan (12/21/2024 8:31 AM CDT): Discussions been made with primary team, eap clinician and palliative. She does not want to be in pain, but would like to continue aggressive treatment including surgery. Assessment & Plan (12/20/2024 9:08 AM CDT): Discussions been made with primary team, eap clinician and palliative. She does not want to be in pain, but would like to continue aggressive treatment including surgery. Assessment & Plan (12/19/2024 7:54 AM CDT): Discussions been made with primary team, eap clinician and palliative. She does not want to be in pain, but would like to continue aggressive treatment including surgery. Assessment & Plan (12/18/2024 8:14 AM CDT): Discussions been made with primary team, eap clinician and palliative. She does not want to be in pain, but would like to continue aggressive treatment including surgery. Assessment & Plan (12/17/2024 1:15 PM CDT): Discussions been made with primary team, eap clinician and palliative. She does not want to be in pain, but would like to continue aggressive treatment including surgery. Assessment & Plan (12/16/2024 2:46 PM CDT): Discussions been made with primary team, eap clinician and palliative. She does not want to be in pain, but would like to continue aggressive treatment including surgery. Assessment & Plan (12/15/2024 12:46 PM CDT): Discussions been made with primary team, eap clinician and palliative. She does not want to be in pain, but would like to continue aggressive treatment including surgery. Assessment & Plan (12/14/2024 10:58 AM CDT): Discussions been made with primary team, eap clinician and palliative. She does not want to be in pain, but would like to continue aggressive treatment including surgery. Assessment & Plan (12/13/2024 1:19 PM CDT): Discussions been made with primary team, eap clinician and palliative. She does not want to be in pain, but would like to continue aggressive treatment including surgery. Assessment & Plan (12/12/2024 2:48 PM CDT): Discussions been made with primary team, eap clinician and palliative. She does not want to be in pain, but would like to continue aggressive treatment including surgery. Assessment & Plan (12/11/2024 8:52 PM CDT): Discussions been made with primary team, eap clinician and palliative. She does not want to be in pain, but would like to continue aggressive treatment including surgery. Assessment & Plan (12/10/2024 8:41 AM CDT): In discussion with eap clinician, patient expressing different goals with private conversations with . Patient states overall goal is to get surgery but is fearful of decreasing pain medications - palliative care consultation - goals this week are clear, but it would be helpful to have someone monitor her symptoms over time and to help facilitate conversation and space in case her goals do change Assessment & Plan (12/09/2024 8:35 AM CDT): In discussion with eap clinician, patient expressing different goals with private conversations with . Patient states overall goal is to get surgery but is fearful of decreasing pain medications - palliative care consultation - goals this week are clear, but it would be helpful to have someone monitor her symptoms over time and to help facilitate conversation and space in case her goals do change Assessment & Plan (12/08/2024 3:28 PM CDT): In discussion with eap clinician, patient expressing different goals with private conversations with . Patient states overall goal is to get surgery but is fearful of decreasing pain medications - palliative care consultation - goals this week are clear, but it would be helpful to have someone monitor her symptoms over time and to help facilitate conversation and space in case her goals do change RANDOLPH (acute kidney injury)- improved/resolved Assessment & Plan (01/20/2025 1:08 PM CDT): - unclear baseline Cr with frequent hospitalizations, ~1.2-1.3 - 12/15- had worsening creatinine 1.61, renal ultrasound no obstruction, no hydronephrosis, no stone, has focal prominence of left lower pole nonurgent renal CT or MRI- Likely ATN iso episode of hypotension, resolved - 12/29 increased again to 1.73 - Fe urea 43% s/o intrinsic renal etiology - ATN from brief hypotensive episodes vs AIN from beta lactam abx - 12/31 - worsening confusion with asterixis, vbg with pH 7.2 , HCO3 15, pCO2 40 suggestive of metabolic encephalopathy 2/2 RANDOLPH and metabolic acidosis with impaired respiratory compensation due to oversedation with opioids/BZDs 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--> Held all sedating meds - oxycodone IR scheduled and prn, lyrica, compazine, trazodone, clonazepam - Kidney function improving Cr 1.96 --> 1.8--> 1.74--> 1.6->1.72 - nephro o/p referral sent -01/10 Cr=1.94-give 1 liter LR with previous multiple stools and monitor -01/11 Cr=1.94-repeat 1 liter LR infusion -01/12 Cr=1.84-repeat IVF's - 01/13 - creatinine improved back to 1.6 ~ which is most likely 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 01/16- diarrhea again, restarted LR @ 75ml/hr- will continue through surgery 01/16-01/19- creatinine fluctuating, but grossly has remained stable, no RANDOLPH 1.87 today<-- 1.64 <--1.73<--1.83 Assessment & Plan (01/19/2025 8:40 PM CDT): - unclear baseline Cr with frequent hospitalizations, ~1.2-1.3 - 12/15- had worsening creatinine 1.61, renal ultrasound no obstruction, no hydronephrosis, no stone, has focal prominence of left lower pole nonurgent renal CT or MRI- Likely ATN iso episode of hypotension, resolved - 12/29 increased again to 1.73 - Fe urea 43% s/o intrinsic renal etiology - ATN from brief hypotensive episodes vs AIN from beta lactam abx - 12/31 - worsening confusion with asterixis, vbg with pH 7.2 , HCO3 15, pCO2 40 suggestive of metabolic encephalopathy 2/2 RANDOLPH and metabolic acidosis with impaired respiratory compensation due to oversedation with opioids/BZDs 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--> Held all sedating meds - oxycodone IR scheduled and prn, lyrica, compazine, trazodone, clonazepam - Kidney function improving Cr 1.96 --> 1.8--> 1.74--> 1.6->1.72 - nephro o/p referral sent -01/10 Cr=1.94-give 1 liter LR with previous multiple stools and monitor -01/11 Cr=1.94-repeat 1 liter LR infusion -01/12 Cr=1.84-repeat IVF's - 01/13 - creatinine improved back to 1.6 ~ which is most likely 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 01/16- diarrhea again, restarted LR @ 75ml/hr- will continue through surgery 01/16-01/19- creatinine fluctuating, but grossly has remained stable, no RANDOLPH 1.87 today<-- 1.64 <--1.73<--1.83 Assessment & Plan (01/18/2025 3:27 PM CDT): - unclear baseline Cr with frequent hospitalizations, ~1.2-1.3 - 12/15- had worsening creatinine 1.61, renal ultrasound no obstruction, no hydronephrosis, no stone, has focal prominence of left lower pole nonurgent renal CT or MRI- Likely ATN iso episode of hypotension, resolved - 12/29 increased again to 1.73 - Fe urea 43% s/o intrinsic renal etiology - ATN from brief hypotensive episodes vs AIN from beta lactam abx - 12/31 - worsening confusion with asterixis, vbg with pH 7.2 , HCO3 15, pCO2 40 suggestive of metabolic encephalopathy 2/2 RANDOLPH and metabolic acidosis with impaired respiratory compensation due to oversedation with opioids/BZDs 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--> Held all sedating meds - oxycodone IR scheduled and prn, lyrica, compazine, trazodone, clonazepam - Kidney function improving Cr 1.96 --> 1.8--> 1.74--> 1.6->1.72 - nephro o/p referral sent - augmentin dose was increased back to 875-125 mg bid - CTM, avoid hypotension -creatinine slowly worsening-?related to Na thiosulfate? Monitor -01/10 Cr=1.94-give 1 liter LR with previous multiple stools and monitor -01/11 Cr=1.94-repeat 1 liter LR infusion and recheck BMP in am -01/12 Cr=1.84-repeat IVF's-will likely need IVF's MWF at out infusion center, encourage oral fluid intake - 01/13 - creatinine improved back to 1.6 ~ her new baseline - 01/15 stop LR infusion now that diarrhea is resolved, and encourage po intake . 01/16- diarrhea again, restart LR @ 75ml/hr 01/16-01/18 creatinine stable/improved 1.64 today<--1.73<--1.83 Assessment & Plan (01/17/2025 2:32 PM CDT): - unclear baseline Cr with frequent hospitalizations, ~1.2-1.3 - 12/15- had worsening creatinine 1.61, renal ultrasound no obstruction, no hydronephrosis, no stone, has focal prominence of left lower pole nonurgent renal CT or MRI- Likely ATN iso episode of hypotension, resolved - 12/29 increased again to 1.73 - Fe urea 43% s/o intrinsic renal etiology - ATN from brief hypotensive episodes vs AIN from beta lactam abx - 12/31 - worsening confusion with asterixis, vbg with pH 7.2 , HCO3 15, pCO2 40 suggestive of metabolic encephalopathy 2/2 RANDOLPH and metabolic acidosis with impaired respiratory compensation due to oversedation with opioids/BZDs 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--> Held all sedating meds - oxycodone IR scheduled and prn, lyrica, compazine, trazodone, clonazepam - Kidney function improving Cr 1.96 --> 1.8--> 1.74--> 1.6->1.72 - nephro o/p referral sent - augmentin dose was increased back to 875-125 mg bid - CTM, avoid hypotension -creatinine slowly worsening-?related to Na thiosulfate? Monitor -01/10 Cr=1.94-give 1 liter LR with previous multiple stools and monitor -01/11 Cr=1.94-repeat 1 liter LR infusion and recheck BMP in am -01/12 Cr=1.84-repeat IVF's-will likely need IVF's MWF at out infusion center, encourage oral fluid intake - 01/13 - creatinine improved back to 1.6 ~ her new baseline - 01/15 stop LR infusion now that diarrhea is resolved, and encourage po intake . 01/16- diarrhea again, restart LR @ 75ml/hr 01/17- creatinine stable 1.73 today<--1.83 Assessment & Plan (01/16/2025 9:26 PM CDT): - unclear baseline Cr with frequent hospitalizations, ~1.2-1.3 - 12/15- had worsening creatinine 1.61, renal ultrasound no obstruction, no hydronephrosis, no stone, has focal prominence of left lower pole nonurgent renal CT or MRI- Likely ATN iso episode of hypotension, resolved - 12/29 increased again to 1.73 - Fe urea 43% s/o intrinsic renal etiology - ATN from brief hypotensive episodes vs AIN from beta lactam abx - 12/31 - worsening confusion with asterixis, vbg with pH 7.2 , HCO3 15, pCO2 40 suggestive of metabolic encephalopathy 2/2 RANDOLPH and metabolic acidosis with impaired respiratory compensation due to oversedation with opioids/BZDs 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--> Held all sedating meds - oxycodone IR scheduled and prn, lyrica, compazine, trazodone, clonazepam - Kidney function improving Cr 1.96 --> 1.8--> 1.74--> 1.6->1.72 - nephro o/p referral sent - augmentin dose was increased back to 875-125 mg bid - CTM, avoid hypotension -creatinine slowly worsening-?related to Na thiosulfate? Monitor -01/10 Cr=1.94-give 1 liter LR with previous multiple stools and monitor -01/11 Cr=1.94-repeat 1 liter LR infusion and recheck BMP in am -01/12 Cr=1.84-repeat IVF's-will likely need IVF's MWF at out infusion center, encourage oral fluid intake - 01/13 - creatinine improved back to 1.6 ~ her new baseline - 01/15 stop LR infusion now that diarrhea is resolved, and encourage po intake . 01/16- diarrhea again, restart LR @ 75ml/hr Assessment & Plan (01/15/2025 9:08 PM CDT): - unclear baseline Cr with frequent hospitalizations, ~1.2-1.3 - 12/15- had worsening creatinine 1.61, renal ultrasound no obstruction, no hydronephrosis, no stone, has focal prominence of left lower pole nonurgent renal CT or MRI- Likely ATN iso episode of hypotension, resolved - 12/29 increased again to 1.73 - Fe urea 43% s/o intrinsic renal etiology - ATN from brief hypotensive episodes vs AIN from beta lactam abx - 12/31 - worsening confusion with asterixis, vbg with pH 7.2 , HCO3 15, pCO2 40 suggestive of metabolic encephalopathy 2/2 RANDOLPH and metabolic acidosis with impaired respiratory compensation due to oversedation with opioids/BZDs 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--> Held all sedating meds - oxycodone IR scheduled and prn, lyrica, compazine, trazodone, clonazepam - Kidney function improving Cr 1.96 --> 1.8--> 1.74--> 1.6->1.72 - nephro o/p referral sent - augmentin dose was increased back to 875-125 mg bid - CTM, avoid hypotension -creatinine slowly worsening-?related to Na thiosulfate? Monitor -01/10 Cr=1.94-give 1 liter LR with previous multiple stools and monitor -01/11 Cr=1.94-repeat 1 liter LR infusion and recheck BMP in am -01/12 Cr=1.84-repeat IVF's-will likely need IVF's MWF at outpt infusion center, encourage oral fluid intake - 01/13 - creatinine improved back to 1.6 ~ her new baseline - 01/15 stop LR infusion now that diarrhea is resolved, and encourage po intake . Assessment & Plan (01/14/2025 11:06 PM CDT): - unclear baseline Cr with frequent hospitalizations, ~1.2-1.3 - 12/15- had worsening creatinine 1.61, renal ultrasound no obstruction, no hydronephrosis, no stone, has focal prominence of left lower pole nonurgent renal CT or MRI- Likely ATN iso episode of hypotension, resolved - 12/29 increased again to 1.73 - Fe urea 43% s/o intrinsic renal etiology - ATN from brief hypotensive episodes vs AIN from beta lactam abx - 12/31 - worsening confusion with asterixis, vbg with pH 7.2 , HCO3 15, pCO2 40 suggestive of metabolic encephalopathy 2/2 RANDOLPH and metabolic acidosis with impaired respiratory compensation due to oversedation with opioids/BZDs 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--> Held all sedating meds - oxycodone IR scheduled and prn, lyrica, compazine, trazodone, clonazepam - Kidney function improving Cr 1.96 --> 1.8--> 1.74--> 1.6->1.72 - nephro o/p referral sent - augmentin dose was increased back to 875-125 mg bid - CTM, avoid hypotension -creatinine slowly worsening-?related to Na thiosulfate? Monitor -01/10 Cr=1.94-give 1 liter LR with previous multiple stools and monitor -01/11 Cr=1.94-repeat 1 liter LR infusion and recheck BMP in am -01/12 Cr=1.84-repeat IVF's-will likely need IVF's MWF at outpt infusion center, encourage oral fluid intake - 01/13 - creatinine improved back to 1.6 ~ her new baseline - encourage po intake, will stop LR infusion now that diarrhea is resolved Assessment & Plan (01/13/2025 8:04 PM CDT): - unclear baseline Cr with frequent hospitalizations, ~1.2-1.3 - 12/15- had worsening creatinine 1.61, renal ultrasound no obstruction, no hydronephrosis, no stone, has focal prominence of left lower pole nonurgent renal CT or MRI- Likely ATN iso episode of hypotension, resolved - 12/29 increased again to 1.73 - Fe urea 43% s/o intrinsic renal etiology - ATN from brief hypotensive episodes vs AIN from beta lactam abx - 12/31 - worsening confusion with asterixis, vbg with pH 7.2 , HCO3 15, pCO2 40 suggestive of metabolic encephalopathy 2/2 RANDOLPH and metabolic acidosis with impaired respiratory compensation due to oversedation with opioids/BZDs 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--> Held all sedating meds - oxycodone IR scheduled and prn, lyrica, compazine, trazodone, clonazepam - Kidney function improving Cr 1.96 --> 1.8--> 1.74--> 1.6->1.72 - nephro o/p referral sent - augmentin dose was increased back to 875-125 mg bid - CTM, avoid hypotension -creatinine slowly worsening-?related to Na thiosulfate? Monitor -01/10 Cr=1.94-give 1 liter LR with previous multiple stools and monitor -01/11 Cr=1.94-repeat 1 liter LR infusion and recheck BMP in am -01/12 Cr=1.84-repeat IVF's-will likely need IVF's MWF at out infusion center, encourage oral fluid intake - 01/13 - creatinine improved back to 1.6 ~ her new baseline Assessment & Plan (01/12/2025 1:20 PM CDT): - unclear baseline Cr with frequent hospitalizations, ~1.2-1.3 - 12/15- had worsening creatinine 1.61, renal ultrasound no obstruction, no hydronephrosis, no stone, has focal prominence of left lower pole nonurgent renal CT or MRI- Likely ATN iso episode of hypotension, resolved - 12/29 increased again to 1.73 - Fe urea 43% s/o intrinsic renal etiology - ATN from brief hypotensive episodes vs AIN from beta lactam abx - 12/31 - worsening confusion with asterixis, vbg with pH 7.2 , HCO3 15, pCO2 40 suggestive of metabolic encephalopathy 2/2 RANDOLPH and metabolic acidosis with impaired respiratory compensation due to oversedation with opioids/BZDs 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--> Held all sedating meds - oxycodone IR scheduled and prn, lyrica, compazine, trazodone, clonazepam - Kidney function improving Cr 1.96 --> 1.8--> 1.74--> 1.6->1.72 - nephro o/p referral sent - augmentin dose was increased back to 875-125 mg bid - CTM, avoid hypotension -creatinine slowly worsening-?related to Na thiosulfate? Monitor -01/10 Cr=1.94-give 1 liter LR with previous multiple stools and monitor -01/11 Cr=1.94-repeat 1 liter LR infusion and recheck BMP in am -01/12 Cr=1.84-repeat IVF's-will likely need IVF's MWF at out infusion center, encourage oral fluid intake Assessment & Plan (01/11/2025 12:31 PM CDT): - unclear baseline Cr with frequent hospitalizations, ~1.2-1.3 - 12/15- had worsening creatinine 1.61, renal ultrasound no obstruction, no hydronephrosis, no stone, has focal prominence of left lower pole nonurgent renal CT or MRI- Likely ATN iso episode of hypotension, resolved - 12/29 increased again to 1.73 - Fe urea 43% s/o intrinsic renal etiology - ATN from brief hypotensive episodes vs AIN from beta lactam abx - 12/31 - worsening confusion with asterixis, vbg with pH 7.2 , HCO3 15, pCO2 40 suggestive of metabolic encephalopathy 2/2 RANDOLPH and metabolic acidosis with impaired respiratory compensation due to oversedation with opioids/BZDs 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--> Held all sedating meds - oxycodone IR scheduled and prn, lyrica, compazine, trazodone, clonazepam - Kidney function improving Cr 1.96 --> 1.8--> 1.74--> 1.6->1.72 - nephro o/p referral sent - augmentin dose was increased back to 875-125 mg bid - CTM, avoid hypotension -creatinine slowly worsening-?related to Na thiosulfate? Monitor -01/10 Cr=1.94-give 1 liter LR with previous multiple stools and monitor -01/11 Cr=1.94-repeat 1 liter LR infusion and recheck BMP in am Assessment & Plan (01/10/2025 11:26 AM CDT): - unclear baseline Cr with frequent hospitalizations, ~1.2-1.3 - 12/15- had worsening creatinine 1.61, renal ultrasound no obstruction, no hydronephrosis, no stone, has focal prominence of left lower pole nonurgent renal CT or MRI- Likely ATN iso episode of hypotension, resolved - 12/29 increased again to 1.73 - Fe urea 43% s/o intrinsic renal etiology - ATN from brief hypotensive episodes vs AIN from beta lactam abx - 12/31 - worsening confusion with asterixis, vbg with pH 7.2 , HCO3 15, pCO2 40 suggestive of metabolic encephalopathy 2/2 RANDOLPH and metabolic acidosis with impaired respiratory compensation due to oversedation with opioids/BZDs 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--> Held all sedating meds - oxycodone IR scheduled and prn, lyrica, compazine, trazodone, clonazepam - Kidney function improving Cr 1.96 --> 1.8--> 1.74--> 1.6->1.72 - nephro o/p referral sent - augmentin dose was increased back to 875-125 mg bid - CTM, avoid hypotension -creatinine slowly worsening-?related to Na thiosulfate? Monitor -01/10 Cr=1.94-give 1 liter LR with previous multiple stools and monitor Assessment & Plan (01/09/2025 11:58 AM CDT): - unclear baseline Cr with frequent hospitalizations, ~1.2-1.3 - 12/15- had worsening creatinine 1.61, renal ultrasound no obstruction, no hydronephrosis, no stone, has focal prominence of left lower pole nonurgent renal CT or MRI- Likely ATN iso episode of hypotension, resolved - 12/29 increased again to 1.73 - Fe urea 43% s/o intrinsic renal etiology - ATN from brief hypotensive episodes vs AIN from beta lactam abx - 12/31 - worsening confusion with asterixis, vbg with pH 7.2 , HCO3 15, pCO2 40 suggestive of metabolic encephalopathy 2/2 RANDOLPH and metabolic acidosis with impaired respiratory compensation due to oversedation with opioids/BZDs 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--> Held all sedating meds - oxycodone IR scheduled and prn, lyrica, compazine, trazodone, clonazepam - Kidney function improving Cr 1.96 --> 1.8--> 1.74--> 1.6->1.72 - nephro o/p referral sent - augmentin dose was increased back to 875-125 mg bid - CTM, avoid hypotension -creatinine slowly worsening-?related to Na thiosulfate? Monitor Assessment & Plan (01/08/2025 10:29 AM CDT): - unclear baseline Cr with frequent hospitalizations, ~1.2-1.3 - 12/15- had worsening creatinine 1.61, renal ultrasound no obstruction, no hydronephrosis, no stone, has focal prominence of left lower pole nonurgent renal CT or MRI- Likely ATN iso episode of hypotension, resolved - 12/29 increased again to 1.73 - Fe urea 43% s/o intrinsic renal etiology - ATN from brief hypotensive episodes vs AIN from beta lactam abx - 12/31 - worsening confusion with asterixis, vbg with pH 7.2 , HCO3 15, pCO2 40 suggestive of metabolic encephalopathy 2/2 RANDOLPH and metabolic acidosis with impaired respiratory compensation due to oversedation with opioids/BZDs 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--> Held all sedating meds - oxycodone IR scheduled and prn, lyrica, compazine, trazodone, clonazepam - Kidney function improving Cr 1.96 --> 1.8--> 1.74--> 1.6->1.72 - nephro o/p referral sent - augmentin dose was increased back to 875-125 mg bid - CTM, avoid hypotension Assessment & Plan (01/07/2025 1:32 PM CDT): - unclear baseline Cr with frequent hospitalizations, ~1.2-1.3 - 12/15- had worsening creatinine 1.61, renal ultrasound no obstruction, no hydronephrosis, no stone, has focal prominence of left lower pole nonurgent renal CT or MRI- Likely ATN iso episode of hypotension, resolved - 12/29 increased again to 1.73 - Fe urea 43% s/o intrinsic renal etiology - ATN from brief hypotensive episodes vs AIN from beta lactam abx - 12/31 - worsening confusion with asterixis, vbg with pH 7.2 , HCO3 15, pCO2 40 suggestive of metabolic encephalopathy 2/2 RANDOLPH and metabolic acidosis with impaired respiratory compensation due to oversedation with opioids/BZDs 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--> Held all sedating meds - oxycodone IR scheduled and prn, lyrica, compazine, trazodone, clonazepam - Kidney function improving Cr 1.96 --> 1.8--> 1.74--> 1.6->1.72 - nephro o/p referral sent - augmentin dose was increased back to 875-125 mg bid - CTM, avoid hypotension Assessment & Plan (01/06/2025 1:47 PM CDT): - unclear baseline Cr with frequent hospitalizations, ~1.2-1.3 - 12/15- had worsening creatinine 1.61, renal ultrasound no obstruction, no hydronephrosis, no stone, has focal prominence of left lower pole nonurgent renal CT or MRI- Likely ATN iso episode of hypotension, resolved - 12/29 increased again to 1.73 - Fe urea 43% s/o intrinsic renal etiology - ATN from brief hypotensive episodes vs AIN from beta lactam abx - 12/31 - worsening confusion with asterixis, vbg with pH 7.2 , HCO3 15, pCO2 40 suggestive of metabolic encephalopathy 2/2 RANDOLPH and metabolic acidosis with impaired respiratory compensation due to oversedation with opioids/BZDs 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--> Held all sedating meds - oxycodone IR scheduled and prn, lyrica, compazine, trazodone, clonazepam - Kidney function improving Cr 1.96 --> 1.8--> 1.74--> 1.6->1.72 - nephro o/p referral sent - augmentin dose was increased back to 875-125 mg bid - CTM, avoid hypotension Assessment & Plan (01/05/2025 8:19 PM CDT): - unclear baseline Cr with frequent hospitalizations, ~1.2-1.3 - 12/15- had worsening creatinine 1.61, renal ultrasound no obstruction, no hydronephrosis, no stone, has focal prominence of left lower pole nonurgent renal CT or MRI- Likely ATN iso episode of hypotension, resolved - 12/29 increased again to 1.73 - - Fe urea 43% s/o intrinsic renal etiology - ATN from brief hypotensive episodes vs AIN from beta lactam abx - 12/31 - worsening confusion with asterixis, vbg with pH 7.2 , HCO3 15, pCO2 40 suggestive of metabolic encephalopathy 2/2 RANDOLPH and metabolic acidosis with impaired respiratory compensation due to oversedation with opioids/BZDs 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--> Held all sedating meds - oxycodone IR scheduled and prn , lyrica, compazine, trazodone, clonazepam 01/01- 01/03 - Kidney function imprving Cr 1.96 --> 1.8--> 1.74--> 1.6 Plan: - 01/03-01/05 - Creatinine has plateaued ~ 1.6 - 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 - nephro o/p referral sent - augmentin dose was increased back to 875-125 mg bid -CTM , avoid hypotension Assessment & Plan (01/04/2025 2:44 PM CDT): - unclear baseline Cr with frequent hospitalizations, ~1.2-1.3 - 12/15- had worsening creatinine 1.61, renal ultrasound no obstruction, no hydronephrosis, no stone, has focal prominence of left lower pole nonurgent renal CT or MRI- Likely ATN iso episode of hypotension, resolved - 12/29 increased again to 1.73 - - Fe urea 43% s/o intrinsic renal etiology - ATN from brief hypotensive episodes vs AIN from beta lactam abx - 12/31 - worsening confusion with asterixis, vbg with pH 7.2 , HCO3 15, pCO2 40 suggestive of metabolic encephalopathy 2/2 RANDOLPH and metabolic acidosis with impaired respiratory compensation due to oversedation with opioids/BZDs 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--> Held all sedating meds - oxycodone IR scheduled and prn , lyrica, compazine, trazodone, clonazepam 01/01- 01/03 - Kidney function imprving Cr 1.96 --> 1.8--> 1.74--> 1.6 01/04- Cr stable - 1.6 . CTM Plan: - renally dose meds - increase augmentin back to 875-125 mg q12h now that RANDOLPH improved -CTM , avoid hypotension Assessment & Plan (01/03/2025 6:12 PM CDT): - unclear baseline Cr with frequent hospitalizations, ~1.2-1.3 - 12/15- had worsening creatinine 1.61, renal ultrasound no obstruction, no hydronephrosis, no stone, has focal prominence of left lower pole nonurgent renal CT or MRI- Likely ATN iso episode of hypotension, resolved - 12/30 increased again to 1.73 --> 1.96 --> 1.8 plateaued - - Fe urea 43% s/o intrinsic renal etiology - ATN from brief hypotensive episodes vs AIN from beta lactam abx - 12/31 - worsening confusion with asterixis, vbg with pH 7.2 , HCO3 15, pCO2 40 suggestive of metabolic encephalopathy 2/2 RANDOLPH and metabolic acidosis with impaired respiratory compensation due to oversedation with opioids/BZDs 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--> Held all sedating meds - oxycodone IR scheduled and prn , lyrica, compazine, trazodone, clonazepam 01/01- 01/03 - Kidney function imprving Cr 1.96 --> 1.8--> 1.74--> 1.6 today Plan: - renally dose meds - increase augmentin back to 875-125 mg q12h now that RANDOLPH improved -RANDOLPH improved/plateaued, non-oliguric, CTM , avoid hypotension Assessment & Plan (01/02/2025 7:31 PM CDT): - unclear baseline Cr with frequent hospitalizations, ~1.2-1.3 - 12/15- had worsening creatinine 1.61, renal ultrasound no obstruction, no hydronephrosis, no stone, has focal prominence of left lower pole nonurgent renal CT or MRI- Likely ATN iso episode of hypotension, resolved - 12/30 increased again to 1.73 --> 1.96 --> 1.8 plateaued - - Fe urea 43% s/o intrinsic renal etiology - ATN from brief hypotensive episodes vs AIN from beta lactam abx - 12/31 - worsening confusion with asterixis, vbg with pH 7.2 , HCO3 15, pCO2 40 suggestive of metabolic encephalopathy 2/2 RANDOLPH and metabolic acidosis with impaired respiratory compensation due to oversedation with opioids/BZDs 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--> Held all sedating meds - oxycodone IR scheduled and prn , lyrica, compazine, trazodone, clonazepam 01/01- 01/02 - Kidney function imprving Cr 1.96 --> 1.8--> 1.74 today plateaued, HCO3 improving 15--> 20--> 21 today Plan: - renally dose meds -RANDOLPH improved/plateaued, non-oliguric, CTM , avoid hypotension Assessment & Plan (01/01/2025 6:42 PM CDT): - unclear baseline Cr with frequent hospitalizations, ~1.2-1.3 - 12/15- had worsening creatinine 1.61, renal ultrasound no obstruction, no hydronephrosis, no stone, has focal prominence of left lower pole nonurgent renal CT or MRI- Likely ATN iso episode of hypotension, resolved - 12/30 increased again to 1.73 --> 1.96 --> 1.8 plateaued - - Fe urea 43% s/o intrinsic renal etiology - ATN from brief hypotensive episodes vs AIN from beta lactam abx - 12/31 - worsening confusion with asterixis, vbg with pH 7.2 , HCO3 15, pCO2 40 suggestive of metabolic encephalopathy 2/2 RANDOLPH and metabolic acidosis with impaired respiratory compensation due to oversedation with opioids/BZDs 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 Plan: - renally dose meds - AMS resolved, acidosis improved -->, will resume some of her pain meds. Will start oxycodone IR 10 mg q4h , switch to oxycontin once RANDOLPH resolved - continue to hold tresiba - switch lovenox to heparin sq for DVTprophylaxis - 12/31- decreased augementin dose to 500-125 mg q12h (renally dosed) Assessment & Plan (12/31/2024 7:53 PM CDT): - unclear baseline Cr with frequent hospitalizations, ~1.2-1.3 - 12/15- had worsening creatinine 1.61, renal ultrasound no obstruction, no hydronephrosis, no stone, has focal prominence of left lower pole nonurgent renal CT or MRI- Likely ATN iso episode of hypotension, resolved - 12/30 increased again to 1.73 --> 1.96 today - c/f metabolic encephalopathy from [facility] as above Plan- - - Fe urea 43% s/o intrinsic renal etiology - ATN from brief hypotensive episodes vs AIN from beta lactam abx - renally dose meds : - switch long-acting oxycontin 60 mg BID to short acting IR oxycodone 10 mg q4 hour scheduled, continue prns as before - hold tresiba 5 units tonight given renal failure - blood sugars have been low - mid 100s - switch lovenox to heparin sq for DVTprophylaxis - decrease augementin dose to 500-125 mg q12h (renally dosed) - touch base with ID to see if augmentin can be substituted with a different suppressive antibiotic given high propensity of causing AIN Assessment & Plan (12/30/2024 4:26 PM CDT): - unclear baseline Cr with frequent hospitalizations, ~1.2-1.3 - Worsening creatinine 1.56, renal ultrasound no obstruction, no hydronephrosis, no stone, has focal prominence of left lower pole nonurgent renal CT or MRI - Likely ATN iso episode of hypotension, resolved - now increased again to 1.73 Likely pre-renal vs renal ATN/AIN (on B lactam abx), no retention: 3-way Mcclelland in place with BID irrigation 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 Plan- Urine electrolytes CTM Renally dose meds, avoid nephrotoxic agents Assessment & Plan (12/29/2024 10:35 AM CDT): - unclear baseline Cr with frequent hospitalizations, ~1.1-1.3 - Worsening creatinine 1.56, renal ultrasound no obstruction, no hydronephrosis, no stone, has focal prominence of left lower pole nonurgent renal CT or MRI - Likely ATN iso episode of hypotension, now resolved - renally dose meds, avoid nephrotoxic agents - 3-way Mcclelland in place with BID irrigation 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56, renal ultrasound no obstruction, no hydronephrosis, no stone, has focal prominence of left lower pole nonurgent renal CT or MRI - Likely ATN iso episode of hypotension, now resolved - renally dose meds, avoid nephrotoxic agents - 3-way Mcclelland in place with BID irrigation 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 Assessment & Plan (12/26/2024 1:28 PM CDT): - unclear baseline Cr with frequent hospitalizations, ~1.1-1.3 - Worsening creatinine 1.56, renal ultrasound no obstruction, no hydronephrosis, no stone, has focal prominence of left lower pole nonurgent renal CT or MRI - Likely ATN iso episode of hypotension, now resolved Plan : renally dose meds, avoid nephrotoxic agents - 3-way Mcclelland in place with BID irrigation 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 Assessment & Plan (12/25/2024 1:36 PM CDT): - unclear baseline Cr with frequent hospitalizations, ~1.1-1.3 - Worsening creatinine 1.56, renal ultrasound no obstruction, no hydronephrosis, no stone, has focal prominence of left lower pole nonurgent renal CT or MRI - Likely ATN iso episode of hypotension, now resolved Plan : renally dose meds, avoid nephrotoxic agents - 3-way Mcclelland in place with BID irrigation 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 Assessment & Plan (12/24/2024 12:30 PM CDT): - unclear baseline Cr with frequent hospitalizations, ~1.1-1.3 - Worsening creatinine 1.56, renal ultrasound no obstruction, no hydronephrosis, no stone, has focal prominence of left lower pole nonurgent renal CT or MRI - Likely ATN iso episode of hypotension, now resolved Plan : renally dose meds, avoid nephrotoxic agents - 3-way Mcclelland in place with BID irrigation 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 Assessment & Plan (12/23/2024 12:16 PM CDT): - unclear baseline Cr with frequent hospitalizations, ~1.1-1.3 - Worsening creatinine 1.56, renal ultrasound no obstruction, no hydronephrosis, no stone, has focal prominence of left lower pole nonurgent renal CT or MRI - Likely ATN iso episode of hypotension, now resolved Plan : renally dose meds, avoid nephrotoxic agents - 3-way Mcclelland in place with BID irrigation 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 Prn IVF and bolus. 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 Prn IVF and bolus. 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 Prn IVF and bolus. 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 Prn IVF and bolus. 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 Prn IVF and bolus. 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 Prn IVF and bolus. 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 Prn IVF and bolus. 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 Prn IVF and bolus. 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 Prn IVF and bolus. 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 Prn IVF and bolus. 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 Prn IVF and bolus. - renally dose meds, avoid nephrotoxic agents - Mcclelland in place - Daily BMP Assessment & Plan (12/10/2024 8:41 AM CDT): 12/05/2024 risen to 1.5, given fluid with mild improvement. She's been having a lot of stool output so I wonder if that is where the acidosis is coming from as well as dehydration. Still has high urine creatinine, wonder if that behind in fluids - 1L LR 12/07/2024 Assessment & Plan (12/09/2024 8:35 AM CDT): 12/05/2024 risen to 1.5, given fluid with mild improvement. She's been having a lot of stool output so I wonder if that is where the acidosis is coming from as well as dehydration. Still has high urine creatinine, wonder if that behind in fluids - 1L LR 12/07/2024 Assessment & Plan (12/08/2024 9:03 PM CDT): 12/05/2024 risen to 1.5, given fluid with mild improvement. She's been having a lot of stool output so I wonder if that is where the acidosis is coming from as well as dehydration. Still has high urine creatinine, wonder if that behind in fluids - 1L LR 12/07/2024 Assessment & Plan (12/07/2024 1:18 PM CDT): 12/05/2024 risen to 1.5, given fluid with mild improvement. She's been having a lot of stool output so I wonder if that is where the acidosis is coming from as well as dehydration - 1L LR 12/07/2024 Assessment & Plan (12/06/2024 2:19 PM CDT): 12/05/2024 risen to 1.5, given fluid with mild improvement. She's been having a lot of stool output so I wonder if that is where the acidosis is coming from as well as dehydration - give another 500cc today Assessment & Plan (12/05/2024 4:47 PM CDT): Slowly has increased to 1.5. Sent out urine labs although no oliguric on 12/05 and fena is 1.2%, indeterminant. I think maybe this represents ATN or pre-renal, so will try for pre-renal today with 500cc fluids. Excessive sleepiness 12/03/2024 Assessment & Plan (12/29/2024 10:35 AM CDT): Likely from poor sleep/wake cycle, meds, waking up at night. - will do night hygiene from 9pm-6am - pause q2hr turns at night time (order updated); Assessment & Plan (12/28/2024 11:23 AM CDT): Likely from poor sleep/wake cycle, meds, waking up at night. - will do night hygiene from 9pm-6am - pause q2hr turns at night time (order updated); Assessment & Plan (12/27/2024 10:44 AM CDT): Likely from poor sleep/wake cycle, meds, waking up at night. - will do night hygiene from 9pm-6am - pause q2hr turns at night time (order updated); Assessment & Plan (12/26/2024 1:28 PM CDT): Likely from poor sleep/wake cycle, meds, waking up at night. - will do night hygiene from 9pm-6am - pause q2hr turns at night time (order updated); Assessment & Plan (12/25/2024 1:36 PM CDT): Likely from poor sleep/wake cycle, meds, waking up at night. - will do night hygiene from 9pm-6am - pause q2hr turns at night time (order updated); Assessment & Plan (12/24/2024 12:30 PM CDT): Likely from poor sleep/wake cycle, meds, waking up at night. - will do night hygiene from 9pm-6am - pause q2hr turns at night time (order updated); - adjusted POCT TID Ac and Hs Assessment & Plan (12/23/2024 12:16 PM CDT): Likely from poor sleep/wake cycle, meds, waking up at night. - will do night hygiene from 9pm-6am - pause q2hr turns at night time (order updated); - adjusted POCT TID Ac and Hs Assessment & Plan (12/22/2024 7:49 AM CDT): Likely from poor sleep/wake cycle, meds, waking up at night. - will do night hygiene from 9pm-6am - pause q2hr turns at night time (order updated); - adjusted POCT TID Ac and Hs Assessment & Plan (12/21/2024 8:31 AM CDT): Likely from poor sleep/wake cycle, meds, waking up at night. - will do night hygiene from 9pm-6am - pause q2hr turns at night time (order updated); - adjusted POCT TID Ac and Hs Assessment & Plan (12/20/2024 9:08 AM CDT): Likely from poor sleep/wake cycle, meds, waking up at night. - will do night hygiene from 9pm-6am - pause q2hr turns at night time (order updated); - adjusted POCT TID Ac and Hs Assessment & Plan (12/19/2024 7:54 AM CDT): Likely from poor sleep/wake cycle, meds, waking up at night. - will do night hygiene from 9pm-6am - pause q2hr turns at night time (order updated); - adjusted POCT TID Ac and Hs Assessment & Plan (12/18/2024 8:14 AM CDT): Likely from poor sleep/wake cycle, meds, waking up at night. - will do night hygiene from 9pm-6am - pause q2hr turns at night time (order updated); - adjusted POCT TID Ac and Hs Assessment & Plan (12/17/2024 1:15 PM CDT): Likely from poor sleep/wake cycle, meds, waking up at night. - will do night hygiene from 9pm-6am - pause q2hr turns at night time (order updated); - adjusted POCT TID Ac and Hs Assessment & Plan (12/16/2024 2:46 PM CDT): Likely from poor sleep/wake cycle, meds, waking up at night. - will do night hygiene from 9pm-6am - pause q2hr turns at night time (order updated); - adjusted POCT TID Ac and Hs Assessment & Plan (12/15/2024 12:46 PM CDT): Likely from poor sleep/wake cycle, meds, waking up at night. - will do night hygiene from 9pm-6am - pause q2hr turns at night time (order updated); - adjusted POCT TID Ac and Hs Assessment & Plan (12/14/2024 10:58 AM CDT): Likely from poor sleep/wake cycle, meds, waking up at night. - will do night hygiene from 9pm-6am - pause q2hr turns at night time (order updated); - adjusted POCT TID Ac and Hs Assessment & Plan (12/13/2024 1:19 PM CDT): Likely from poor sleep/wake cycle, meds, waking up at night. - will do night hygiene from 9pm-6am - pause q2hr turns at night time (order updated); - adjusted POCT TID Ac and Hs Assessment & Plan (12/12/2024 2:48 PM CDT): Likely from poor sleep/wake cycle, meds, waking up at night. - will do night hygiene from 9pm-6am - pause q2hr turns at night time (order updated); - adjusted POCT TID Ac and Hs Assessment & Plan (12/10/2024 8:41 AM CDT): Likely from poor sleep/wake cycle, meds, waking up at night. - will do night hygiene from 9pm-6am - pause q2hr turns at night time (order updated); adjusted POCT to be 21:00 and 06:00, 14:00 -> consider discontinuing accuchecks now that insulin is removed from TPN Assessment & Plan (12/09/2024 8:35 AM CDT): Likely from poor sleep/wake cycle, meds, waking up at night. - will do night hygiene from 9pm-6am - pause q2hr turns at night time (order updated); adjusted POCT to be 21:00 and 06:00, 14:00 -> consider discontinuing accuchecks now that insulin is removed from TPN Assessment & Plan (12/08/2024 9:03 PM CDT): Likely from poor sleep/wake cycle, meds, waking up at night. - will do night hygiene from 9pm-6am - pause q2hr turns at night time (order updated); adjusted POCT to be 21:00 and 06:00, 14:00 -> consider discontinuing accuchecks now that insulin is removed from TPN Assessment & Plan (12/07/2024 1:18 PM CDT): Likely from poor sleep/wake cycle, meds, waking up at night. - will do night hygiene from 9pm-6am - pause q2hr turns at night time (order updated); adjusted POCT to be 21:00 and 06:00, 14:00 Assessment & Plan (12/06/2024 2:19 PM CDT): Likely from poor sleep/wake cycle, meds, waking up at night. - will do night hygiene from 9pm-6am - pause q2hr turns at night time (order updated); adjusted POCT to be 21:00 and 06:00, 14:00 Assessment & Plan (12/05/2024 4:47 PM CDT): Likely from poor sleep/wake cycle, meds, waking up at night. - will do night hygiene Assessment & Plan (12/04/2024 2:08 PM CDT): Likely from poor sleep/wake cycle, meds, waking up at night. - will do night hygiene Assessment & Plan (12/03/2024 6:06 PM CDT): Likely from poor sleep/wake cycle, meds, waking up at night. - will do night hygiene Physical deconditioning 11/27/2024 Assessment & Plan (03/03/2025 7:32 AM CHEF): Pt endorses a >200 lb weight loss since 06/2024, related to multiple hospitalizations and ICU stays. She is happy with her weight loss, but feels very low appetite and has mobility issues 2/2 recent surgery and pain. High c/f protein calorie malnutrition. Plan: - RD consult - SW consult for concerns of food access - thiamine, folate supplementation - Calorie counts - Ensure supplements with meals and bedtime - Patient will not consider IPR or other rehab options outside of the home Assessment & Plan (03/02/2025 6:13 PM CHEF): Pt endorses a >200 lb weight loss since 06/2024, related to multiple hospitalizations and ICU stays. She is happy with her weight loss, but feels very low appetite and has mobility issues 2/2 recent surgery and pain. High c/f protein calorie malnutrition. Plan: - RD consult - SW consult for concerns of food access - thiamine, folate supplementation - Calorie counts - Ensure supplements with meals and bedtime - Patient will not consider IPR or other rehab options outside of the home Assessment & Plan (03/01/2025 6:18 AM CHEF): Pt endorses a >200 lb weight loss since 06/2024, related to multiple hospitalizations and ICU stays. She is happy with her weight loss, but feels very low appetite and has mobility issues 2/2 recent surgery and pain. High c/f protein calorie malnutrition. Plan: - RD consult - SW consult for concerns of food access - thiamine, folate - Calorie counts - Ensure supplements with meals and bedtime - Patient will not consider IPR or other rehab options outside of the home Assessment & Plan (02/28/2025 5:56 AM CHEF): Pt endorses a >200 lb weight loss since 06/2024, related to multiple hospitalizations and ICU stays. She is happy with her weight loss, but feels very low appetite and has mobility issues 2/2 recent surgery and pain. High c/f protein calorie malnutrition. Plan: - RD consult - SW consult for concerns of food access - thiamine, folate - Calorie counts - Ensure supplements with meals and bedtime - Patient will not consider IPR or other rehab options outside of the home Assessment & Plan (02/27/2025 10:08 AM CHEF): Pt endorses a >200 lb weight loss since 06/2024, related to multiple hospitalizations and ICU stays. She is happy with her weight loss, but feels very low appetite and has mobility issues 2/2 recent surgery and pain. High c/f protein calorie malnutrition. Plan: - RD consult - SW consult for concerns of food access - thiamine, folate - Calorie counts - Ensure supplements with meals and bedtime - Patient will not consider IPR or other rehab options outside of the home Assessment & Plan (02/26/2025 7:14 AM CHEF): Pt endorses a >200 lb weight loss since 06/2024, related to multiple hospitalizations and ICU stays. She is happy with her weight loss, but feels very low appetite and has mobility issues 2/2 recent surgery and pain. High c/f protein calorie malnutrition. - RD c/s - Patient will not consider IPR or other rehab options outside of the home - SW consult - thiamine, folate Assessment & Plan (02/25/2025 3:50 PM CHEF): Pt endorses a >200 lb weight loss since 06/2024, related to multiple hospitalizations and ICU stays. She is happy with her weight loss, but feels very low appetite and has mobility issues 2/2 recent surgery and pain. High c/f protein calorie malnutrition. - RD c/s - Patient will not consider IPR or other rehab options outside of the home - SW consult - thiamine, folate Assessment & Plan (02/24/2025 1:45 PM CHEF): Pt endorses a >200 lb weight loss since 06/2024, related to multiple hospitalizations and ICU stays. She is happy with her weight loss, but feels very low appetite and has mobility issues 2/2 recent surgery and pain. High c/f protein calorie malnutrition. - RD c/s Assessment & Plan (01/20/2025 1:08 PM CDT): Severe deconditioning due to prolonged and recurrent hospitalization, comorbidity, obesity, pain, anxiety -11/27 walked 4ft with WW, Tolerates 10 - 20 min activity with multiple rests -11/28 WW 12ft.PT feels anxiety holding therapy back-encourage -11/29 WW 20ft with 1 break-crying the entire time with pain -12/08 WW 29 feet, limited with leg pain and dizziness - focus on rehab therapy to allow Discharge -12/17 WW x 68ft with 2 breaks-encouraged to participate fully with rehab -12/23: 30+10+30+40' with seated rest breaks between trials -12/24: WW x 45ft -12/25: WW x 60ft with 3 breaks -12/26: WW x 124ft with 3 breaks -12/27: WW x 60ft with no breaks -01/05: WW x 65ft+35ft(100ft) -01/07: WW x 120ft(15+65+40) -01/08: WW x 240ft per pt -01/09: WW x 110ft -01/10: WW 140ft with 2 breaks - outpatient rehab referral placed as no accepting home health agency Assessment & Plan (01/19/2025 8:40 PM CDT): Severe deconditioning due to prolonged and recurrent hospitalization, comorbidity, obesity, pain, anxiety -11/27 walked 4ft with WW, Tolerates 10 - 20 min activity with multiple rests -11/28 WW 12ft.PT feels anxiety holding therapy back-encourage -11/29 WW 20ft with 1 break-crying the entire time with pain -12/08 WW 29 feet, limited with leg pain and dizziness - focus on rehab therapy to allow Discharge -12/17 WW x 68ft with 2 breaks-encouraged to participate fully with rehab -12/23: 30+10+30+40' with seated rest breaks between trials -12/24: WW x 45ft -12/25: WW x 60ft with 3 breaks -12/26: WW x 124ft with 3 breaks -12/27: WW x 60ft with no breaks -01/05: WW x 65ft+35ft(100ft) -01/07: WW x 120ft(15+65+40) -01/08: WW x 240ft per pt -01/09: WW x 110ft -01/10: WW 140ft with 2 breaks - outpatient rehab referral placed as no accepting home health agency Assessment & Plan (01/18/2025 3:27 PM CDT): Severe deconditioning due to prolonged and recurrent hospitalization, comorbidity, obesity, pain, anxiety -11/27 walked 4ft with WW, Tolerates 10 - 20 min activity with multiple rests -11/28 WW 12ft.PT feels anxiety holding therapy back-encourage -11/29 WW 20ft with 1 break-crying the entire time with pain -12/08 WW 29 feet, limited with leg pain and dizziness - focus on rehab therapy to allow Discharge -12/17 WW x 68ft with 2 breaks-encouraged to participate fully with rehab -12/23: 30+10+30+40' with seated rest breaks between trials -12/24: WW x 45ft -12/25: WW x 60ft with 3 breaks -12/26: WW x 124ft with 3 breaks -12/27: WW x 60ft with no breaks -01/05: WW x 65ft+35ft(100ft) -01/07: WW x 120ft(15+65+40) -01/08: WW x 240ft per pt -01/09: WW x 110ft -01/10: WW 140ft with 2 breaks Assessment & Plan (01/17/2025 2:32 PM CDT): Severe deconditioning due to prolonged and recurrent hospitalization, comorbidity, obesity, pain, anxiety -11/27 walked 4ft with WW, Tolerates 10 - 20 min activity with multiple rests -11/28 WW 12ft.PT feels anxiety holding therapy back-encourage -11/29 WW 20ft with 1 break-crying the entire time with pain -12/08 WW 29 feet, limited with leg pain and dizziness - focus on rehab therapy to allow Discharge -12/17 WW x 68ft with 2 breaks-encouraged to participate fully with rehab -12/23: 30+10+30+40' with seated rest breaks between trials -12/24: WW x 45ft -12/25: WW x 60ft with 3 breaks -12/26: WW x 124ft with 3 breaks -12/27: WW x 60ft with no breaks -01/05: WW x 65ft+35ft(100ft) -01/07: WW x 120ft(15+65+40) -01/08: WW x 240ft per pt -01/09: WW x 110ft -01/10: WW 140ft with 2 breaks Assessment & Plan (01/16/2025 9:26 PM CDT): Severe deconditioning due to prolonged and recurrent hospitalization, comorbidity, obesity, pain, anxiety -11/27 walked 4ft with WW, Tolerates 10 - 20 min activity with multiple rests -11/28 WW 12ft.PT feels anxiety holding therapy back-encourage -11/29 WW 20ft with 1 break-crying the entire time with pain -12/08 WW 29 feet, limited with leg pain and dizziness - focus on rehab therapy to allow Discharge -12/17 WW x 68ft with 2 breaks-encouraged to participate fully with rehab -12/23: 30+10+30+40' with seated rest breaks between trials -12/24: WW x 45ft -12/25: WW x 60ft with 3 breaks -12/26: WW x 124ft with 3 breaks -12/27: WW x 60ft with no breaks -01/05: WW x 65ft+35ft(100ft) -01/07: WW x 120ft(15+65+40) -01/08: WW x 240ft per pt -01/09: WW x 110ft -01/10: WW 140ft with 2 breaks Assessment & Plan (01/15/2025 9:08 PM CDT): Severe deconditioning due to prolonged and recurrent hospitalization, comorbidity, obesity, pain, anxiety -11/27 walked 4ft with WW, Tolerates 10 - 20 min activity with multiple rests -11/28 WW 12ft.PT feels anxiety holding therapy back-encourage -11/29 WW 20ft with 1 break-crying the entire time with pain -12/08 WW 29 feet, limited with leg pain and dizziness - focus on rehab therapy to allow Discharge -12/17 WW x 68ft with 2 breaks-encouraged to participate fully with rehab -12/23: 30+10+30+40' with seated rest breaks between trials -12/24: WW x 45ft -12/25: WW x 60ft with 3 breaks -12/26: WW x 124ft with 3 breaks -12/27: WW x 60ft with no breaks -01/05: WW x 65ft+35ft(100ft) -01/07: WW x 120ft(15+65+40) -01/08: WW x 240ft per pt -01/09: WW x 110ft -01/10: WW 140ft with 2 breaks Assessment & Plan (01/14/2025 11:06 PM CDT): Severe deconditioning due to prolonged and recurrent hospitalization, comorbidity, obesity, pain, anxiety -11/27 walked 4ft with WW, Tolerates 10 - 20 min activity with multiple rests -11/28 WW 12ft.PT feels anxiety holding therapy back-encourage -11/29 WW 20ft with 1 break-crying the entire time with pain -12/08 WW 29 feet, limited with leg pain and dizziness - focus on rehab therapy to allow Discharge -12/17 WW x 68ft with 2 breaks-encouraged to participate fully with rehab -12/23: 30+10+30+40' with seated rest breaks between trials -12/24: WW x 45ft -12/25: WW x 60ft with 3 breaks -12/26: WW x 124ft with 3 breaks -12/27: WW x 60ft with no breaks -01/05: WW x 65ft+35ft(100ft) -01/07: WW x 120ft(15+65+40) -01/08: WW x 240ft per pt -01/09: WW x 110ft -01/10: WW 140ft with 2 breaks Assessment & Plan (01/13/2025 8:04 PM CDT): Severe deconditioning due to prolonged and recurrent hospitalization, comorbidity, obesity, pain, anxiety -11/27 walked 4ft with WW, Tolerates 10 - 20 min activity with multiple rests -11/28 WW 12ft.PT feels anxiety holding therapy back-encourage -11/29 WW 20ft with 1 break-crying the entire time with pain -12/08 WW 29 feet, limited with leg pain and dizziness - focus on rehab therapy to allow Discharge -12/17 WW x 68ft with 2 breaks-encouraged to participate fully with rehab -12/23: 30+10+30+40' with seated rest breaks between trials -12/24: WW x 45ft -12/25: WW x 60ft with 3 breaks -12/26: WW x 124ft with 3 breaks -12/27: WW x 60ft with no breaks -01/05: WW x 65ft+35ft(100ft) -01/07: WW x 120ft(15+65+40) -01/08: WW x 240ft per pt -01/09: WW x 110ft -01/10: WW 140ft with 2 breaks Assessment & Plan (01/12/2025 1:20 PM CDT): Severe deconditioning due to prolonged and recurrent hospitalization, comorbidity, obesity, pain, anxiety -11/27 walked 4ft with WW, Tolerates 10 - 20 min activity with multiple rests -11/28 WW 12ft.PT feels anxiety holding therapy back-encourage -11/29 WW 20ft with 1 break-crying the entire time with pain -12/08 WW 29 feet, limited with leg pain and dizziness - focus on rehab therapy to allow Discharge -12/17 WW x 68ft with 2 breaks-encouraged to participate fully with rehab -12/23: 30+10+30+40' with seated rest breaks between trials -12/24: WW x 45ft -12/25: WW x 60ft with 3 breaks -12/26: WW x 124ft with 3 breaks -12/27: WW x 60ft with no breaks -01/05: WW x 65ft+35ft(100ft) -01/07: WW x 120ft(15+65+40) -01/08: WW x 240ft per pt -01/09: WW x 110ft -01/10: WW 140ft with 2 breaks Assessment & Plan (01/11/2025 12:31 PM CDT): Severe deconditioning due to prolonged and recurrent hospitalization, comorbidity, obesity, pain, anxiety -11/27 walked 4ft with WW, Tolerates 10 - 20 min activity with multiple rests -11/28 WW 12ft.PT feels anxiety holding therapy back-encourage -11/29 WW 20ft with 1 break-crying the entire time with pain -12/08 WW 29 feet, limited with leg pain and dizziness - focus on rehab therapy to allow Discharge -12/17 WW x 68ft with 2 breaks-encouraged to participate fully with rehab -12/23: 30+10+30+40' with seated rest breaks between trials -12/24: WW x 45ft -12/25: WW x 60ft with 3 breaks -12/26: WW x 124ft with 3 breaks -12/27: WW x 60ft with no breaks -01/05: WW x 65ft+35ft(100ft) -01/07: WW x 120ft(15+65+40) -01/08: WW x 240ft per pt -01/09: WW x 110ft -01/10: WW 140ft with 2 breaks Assessment & Plan (01/10/2025 11:26 AM CDT): Severe deconditioning due to prolonged and recurrent hospitalization, comorbidity, obesity, pain, anxiety -11/27 walked 4ft with WW, Tolerates 10 - 20 min activity with multiple rests -11/28 WW 12ft.PT feels anxiety holding therapy back-encourage -11/29 WW 20ft with 1 break-crying the entire time with pain -12/08 WW 29 feet, limited with leg pain and dizziness - focus on rehab therapy to allow Discharge -12/17 WW x 68ft with 2 breaks-encouraged to participate fully with rehab -12/23: 30+10+30+40' with seated rest breaks between trials -12/24: WW x 45ft -12/25: WW x 60ft with 3 breaks -12/26: WW x 124ft with 3 breaks -12/27: WW x 60ft with no breaks -01/05: WW x 65ft+35ft(100ft) -01/07: WW x 120ft(15+65+40) -01/08: WW x 240ft per pt -01/09: WW x 110ft Assessment & Plan (01/09/2025 11:58 AM CDT): Severe deconditioning due to prolonged and recurrent hospitalization, comorbidity, obesity, pain, anxiety -11/27 walked 4ft with WW, Tolerates 10 - 20 min activity with multiple rests -11/28 WW 12ft.PT feels anxiety holding therapy back-encourage -11/29 WW 20ft with 1 break-crying the entire time with pain -12/08 WW 29 feet, limited with leg pain and dizziness - focus on rehab therapy to allow Discharge -12/17 WW x 68ft with 2 breaks-encouraged to participate fully with rehab -12/23: 30+10+30+40' with seated rest breaks between trials -12/24: WW x 45ft -12/25: WW x 60ft with 3 breaks -12/26: WW x 124ft with 3 breaks -12/27: WW x 60ft with no breaks -01/05: WW x 65ft+35ft(100ft) -01/07: WW x 120ft(15+65+40) -01/08: WW x 240ft per pt Assessment & Plan (01/08/2025 10:29 AM CDT): Severe deconditioning due to prolonged and recurrent hospitalization, comorbidity, obesity, pain, anxiety -11/27 walked 4ft with WW, Tolerates 10 - 20 min activity with multiple rests -11/28 WW 12ft.PT feels anxiety holding therapy back-encourage -11/29 WW 20ft with 1 break-crying the entire time with pain -12/08 WW 29 feet, limited with leg pain and dizziness - focus on rehab therapy to allow Discharge -12/17 WW x 68ft with 2 breaks-encouraged to participate fully with rehab -12/23: 30+10+30+40' with seated rest breaks between trials -12/24: WW x 45ft -12/25: WW x 60ft with 3 breaks -12/26: WW x 124ft with 3 breaks -12/27: WW x 60ft with no breaks -01/05: WW x 65ft+35ft(100ft) -01/07: WW x 120ft(15+65+40) Assessment & Plan (01/07/2025 1:32 PM CDT): Severe deconditioning due to prolonged and recurrent hospitalization, comorbidity, obesity, pain, anxiety -11/27 walked 4ft with WW, Tolerates 10 - 20 min activity with multiple rests -11/28 WW 12ft.PT feels anxiety holding therapy back-encourage -11/29 WW 20ft with 1 break-crying the entire time with pain -12/08 WW 29 feet, limited with leg pain and dizziness - focus on rehab therapy to allow Discharge -12/17 WW x 68ft with 2 breaks-encouraged to participate fully with rehab -12/23: 30+10+30+40' with seated rest breaks between trials -12/24: WW x 45ft -12/25: WW x 60ft with 3 breaks -12/26: WW x 124ft with 3 breaks -12/27: WW x 60ft with no breaks -01/05: WW x 65ft+35ft(100ft) Assessment & Plan (01/06/2025 1:47 PM CDT): Severe deconditioning due to prolonged and recurrent hospitalization, comorbidity, obesity, pain, anxiety -11/27 walked 4ft with WW, Tolerates 10 - 20 min activity with multiple rests -11/28 WW 12ft.PT feels anxiety holding therapy back-encourage -11/29 WW 20ft with 1 break-crying the entire time with pain -12/08 WW 29 feet, limited with leg pain and dizziness - focus on rehab therapy to allow Discharge -12/17 WW x 68ft with 2 breaks-encouraged to participate fully with rehab -12/23: 30+10+30+40' with seated rest breaks between trials -12/24: WW x 45ft -12/25: WW x 60ft with 3 breaks -12/26: WW x 124ft with 3 breaks -12/27: WW x 60ft with no breaks -01/05: WW x 65ft+35ft(100ft) Assessment & Plan (01/05/2025 8:19 PM CDT): Severe deconditioning due to prolonged and recurrent hospitalization, comorbidity, obesity, pain, anxiety -11/27 walked 4ft with WW, Tolerates 10 - 20 min activity with multiple rests -11/28 WW 12ft.PT feels anxiety holding therapy back-encourage -11/29 WW 20ft with 1 break-crying the entire time with pain -12/08 WW 29 feet, limited with leg pain and dizziness - focus on rehab therapy to allow Discharge -12/17 WW x 68ft with 2 breaks-encouraged to participate fully with rehab -12/23: 30+10+30+40' with seated rest breaks between trials -12/24: WW x 45ft -12/25: WW x 60ft with 3 breaks -12/26: WW x 124ft with 3 breaks -12/27: WW x 60ft with no breaks - 01/05 - WW X 100 ft Assessment & Plan (01/04/2025 2:44 PM CDT): Severe deconditioning due to prolonged and recurrent hospitalization, comorbidity, obesity, pain, anxiety -11/27 walked 4ft with WW, Tolerates 10 - 20 min activity with multiple rests -11/28 WW 12ft.PT feels anxiety holding therapy back-encourage -11/29 WW 20ft with 1 break-crying the entire time with pain -12/08 WW 29 feet, limited with leg pain and dizziness - focus on rehab therapy to allow Discharge -12/17 WW x 68ft with 2 breaks-encouraged to participate fully with rehab -12/23: 30+10+30+40' with seated rest breaks between trials -12/24: WW x 45ft -12/25: WW x 60ft with 3 breaks -12/26: WW x 124ft with 3 breaks -12/27: WW x 60ft with no breaks Assessment & Plan (01/03/2025 6:12 PM CDT): Severe deconditioning due to prolonged and recurrent hospitalization, comorbidity, obesity, pain, anxiety -11/27 walked 4ft with WW, Tolerates 10 - 20 min activity with multiple rests -11/28 WW 12ft.PT feels anxiety holding therapy back-encourage -11/29 WW 20ft with 1 break-crying the entire time with pain -12/08 WW 29 feet, limited with leg pain and dizziness - focus on rehab therapy to allow Discharge -12/17 WW x 68ft with 2 breaks-encouraged to participate fully with rehab -12/23: 30+10+30+40' with seated rest breaks between trials -12/24: WW x 45ft -12/25: WW x 60ft with 3 breaks -12/26: WW x 124ft with 3 breaks -12/27: WW x 60ft with no breaks Assessment & Plan (01/02/2025 7:31 PM CDT): Severe deconditioning due to prolonged and recurrent hospitalization, comorbidity, obesity, pain, anxiety -11/27 walked 4ft with WW, Tolerates 10 - 20 min activity with multiple rests -11/28 WW 12ft.PT feels anxiety holding therapy back-encourage -11/29 WW 20ft with 1 break-crying the entire time with pain -12/08 WW 29 feet, limited with leg pain and dizziness - focus on rehab therapy to allow Discharge -12/17 WW x 68ft with 2 breaks-encouraged to participate fully with rehab -12/23: 30+10+30+40' with seated rest breaks between trials -12/24: WW x 45ft -12/25: WW x 60ft with 3 breaks -12/26: WW x 124ft with 3 breaks -12/27: WW x 60ft with no breaks Assessment & Plan (01/01/2025 6:42 PM CDT): Severe deconditioning due to prolonged and recurrent hospitalization, comorbidity, obesity, pain, anxiety -11/27 walked 4ft with WW, Tolerates 10 - 20 min activity with multiple rests -11/28 WW 12ft.PT feels anxiety holding therapy back-encourage -11/29 WW 20ft with 1 break-crying the entire time with pain -12/08 WW 29 feet, limited with leg pain and dizziness - focus on rehab therapy to allow Discharge -12/17 WW x 68ft with 2 breaks-encouraged to participate fully with rehab -12/23: 30+10+30+40' with seated rest breaks between trials -12/24: WW x 45ft -12/25: WW x 60ft with 3 breaks -12/26: WW x 124ft with 3 breaks -12/27: WW x 60ft with no breaks Assessment & Plan (12/31/2024 6:52 PM CDT): Severe deconditioning due to prolonged and recurrent hospitalization, comorbidity, obesity, pain, anxiety -11/27 walked 4ft with WW, Tolerates 10 - 20 min activity with multiple rests -11/28 WW 12.PT feels anxiety holding therapy back-encourage -11/29 WW 20ft with 1 break-crying the entire time with pain -12/08 WW 29 feet, limited with leg pain and dizziness - focus on rehab therapy to allow Discharge -12/17 WW x 68ft with 2 breaks-encouraged to participate fully with rehab -12/23: 30+10+30+40' with seated rest breaks between trials -12/24: WW x 45ft -12/25: WW x 60ft with 3 breaks -12/26: WW x 124ft with 3 breaks -12/27: WW x 60ft with no breaks Assessment & Plan (12/30/2024 4:26 PM CDT): Severe deconditioning due to prolonged and recurrent hospitalization, comorbidity, obesity, pain, anxiety -11/27 walked 4ft with WW, Tolerates 10 - 20 min activity with multiple rests -11/28 WW 12.PT feels anxiety holding therapy back-encourage -11/29 20ft with 1 break-crying the entire time with pain -12/08 WW 29 feet, limited with leg pain and dizziness - focus on rehab therapy to allow Discharge -12/17 WW x 68ft with 2 breaks-encouraged to participate fully with rehab -12/23: 30+10+30+40' with seated rest breaks between trials -12/24: WW x 45ft -12/25: WW x 60ft with 3 breaks -12/26: WW x 124ft with 3 breaks -12/27: WW x 60ft with no breaks Assessment & Plan (12/29/2024 10:35 AM CDT): Severe deconditioning due to prolonged and recurrent hospitalization, comorbidity, obesity, pain, anxiety -11/27 walked 4ft with WW, Tolerates 10 - 20 min activity with multiple rests -11/28 WW 12ft.PT feels anxiety holding therapy back-encourage -11/29 WW 20ft with 1 break-crying the entire time with pain -12/08 WW 29 feet, limited with leg pain and dizziness - focus on rehab therapy to allow Discharge -12/17 WW x 68ft with 2 breaks-encouraged to participate fully with rehab -12/23: 30+10+30+40' with seated rest breaks between trials -12/24: WW x 45ft -12/25: WW x 60ft with 3 breaks -12/26: WW x 124ft with 3 breaks -12/27: WW x 60ft with no breaks Assessment & Plan (12/28/2024 11:23 AM CDT): Severe deconditioning due to prolonged and recurrent hospitalization, comorbidity, obesity, pain, anxiety -11/27 walked 4ft with WW, Tolerates 10 - 20 min activity with multiple rests -11/28 WW 12ft.PT feels anxiety holding therapy back-encourage -11/29 WW 20ft with 1 break-crying the entire time with pain -12/08 WW 29 feet, limited with leg pain and dizziness - focus on rehab therapy to allow Discharge -12/17 WW x 68ft with 2 breaks-encouraged to participate fully with rehab -12/23: 30+10+30+40' with seated rest breaks between trials -12/24: WW x 45ft -12/25: WW x 60ft with 3 breaks -12/26: WW x 124ft with 3 breaks -12/27: WW x 60ft with no breaks Assessment & Plan (12/27/2024 10:44 AM CDT): Severe deconditioning due to prolonged and recurrent hospitalization, comorbidity, obesity, pain, anxiety -11/27 walked 4ft with WW, Tolerates 10 - 20 min activity with multiple rests -11/28 WW 12ft.PT feels anxiety holding therapy back-encourage -11/29 WW 20ft with 1 break-crying the entire time with pain -12/08 WW 29 feet, limited with leg pain and dizziness - focus on rehab therapy to allow Discharge -12/17 WW x 68ft with 2 breaks-encouraged to participate fully with rehab -12/23: 30+10+30+40' with seated rest breaks between trials -12/24: WW x 45ft -12/25: WW x 60ft with 3 breaks -12/26: WW x 124ft with 3 breaks Assessment & Plan (12/26/2024 1:28 PM CDT): Severe deconditioning due to prolonged and recurrent hospitalization, comorbidity, obesity, pain, anxiety -11/27 walked 4ft with WW, Tolerates 10 - 20 min activity with multiple rests -11/28 WW 12ft.PT feels anxiety holding therapy back-encourage -11/29 WW 20ft with 1 break-crying the entire time with pain -12/08 WW 29 feet, limited with leg pain and dizziness - focus on rehab therapy to allow Discharge -12/17 WW x 68ft with 2 breaks-encouraged to participate fully with rehab -12/23: 30+10+30+40' with seated rest breaks between trials -12/24: WW x 45ft -12/25: WW x 60ft with 3 breaks Assessment & Plan (12/25/2024 1:36 PM CDT): Severe deconditioning due to prolonged and recurrent hospitalization, comorbidity, obesity, pain, anxiety -11/27 walked 4ft with WW, Tolerates 10 - 20 min activity with multiple rests -11/28 WW 12ft.PT feels anxiety holding therapy back-encourage -11/29 WW 20ft with 1 break-crying the entire time with pain -12/08 WW 29 feet, limited with leg pain and dizziness - focus on rehab therapy to allow Discharge -12/17 WW x 68ft with 2 breaks-encouraged to participate fully with rehab -12/23: 30+10+30+40' with seated rest breaks between trials -12/24: WW x 45ft Assessment & Plan (12/24/2024 12:30 PM CDT): Severe deconditioning due to prolonged and recurrent hospitalization, comorbidity, obesity, pain, anxiety -11/27 walked 4ft with WW, Tolerates 10 - 20 min activity with multiple rests -11/28 WW 12ft.PT feels anxiety holding therapy back-encourage -11/29 WW 20ft with 1 break-crying the entire time with pain -18 WW 29 feet, limited with leg pain and dizziness - focus on rehab therapy to allow Discharge -12/17 WW x 68ft with 2 breaks-encouraged to participate fully with rehab -12/23: 30+10+30+40' with seated rest breaks between trials Assessment & Plan (12/23/2024 12:16 PM CDT): Severe deconditioning due to prolonged and recurrent hospitalization, comorbidity, obesity, pain, anxiety -8 walked 4ft with WW, Tolerates 10 - 20 min activity with multiple rests -11/28 WW 12ft.PT feels anxiety holding therapy back-encourage -11/29 WW 20ft with 1 break-crying the entire time with pain -/ WW 29 feet, limited with leg pain and dizziness - focus on rehab therapy to allow Discharge -12/17 WW x 68ft with 2 breaks-encouraged to participate fully with rehab Assessment & Plan (12/22/2024 7:49 AM CDT): Severe deconditioning due to prolonged and recurrent hospitalization, comorbidity, obesity, pain, anxiety -11/27 walked 4ft with WW, Tolerates 10 - 20 min activity with multiple rests -11/28 WW 12ft.PT feels anxiety holding therapy back-encourage -11/29 WW 20ft with 1 break-crying the entire time with pain -/18 WW 29 feet, limited with leg pain and dizziness - focus on rehb therapy then Discharge Assessment & Plan (12/21/2024 12:05 PM CDT): Severe deconditioning due to prolonged and recurrent hospitalization, comorbidity, obesity, pain, anxiety -11/27 walked 4ft with WW, Tolerates 10 - 20 min activity with multiple rests -11/28 WW 12ft.PT feels anxiety holding therapy back-encourage -11/29 WW 20ft with 1 break-crying the entire time with pain -/18 WW 29 feet, limited with leg pain and dizziness - focus on rehb therapy then Discharge Assessment & Plan (12/20/2024 9:08 AM CDT): Severe deconditioning due to prolonged and recurrent hospitalization, comorbidity, obesity, pain, anxiety -8 walked 4ft with WW, Tolerates 10 - 20 min activity with multiple rests -11/28 WW 12ft.PT feels anxiety holding therapy back-encourage -11/29 WW 20ft with 1 break-crying the entire time with pain -8/18 WW 29 feet, limited with leg pain and dizziness Assessment & Plan (12/19/2024 7:54 AM CDT): Severe deconditioning due to prolonged and recurrent hospitalization, comorbidity, obesity, pain, anxiety -8 walked 4ft with WW, Tolerates 10 - 20 min activity with multiple rests -11/28 12ft.PT feels anxiety holding therapy back-encourage -11/29 WW 20ft with 1 break-crying the entire time with pain -8/18 WW 29 feet, limited with leg pain and dizziness Assessment & Plan (12/18/2024 8:14 AM CDT): Severe deconditioning due to prolonged and recurrent hospitalization, comorbidity, obesity, pain, anxiety -11/27 walked 4ft with WW, Tolerates 10 - 20 min activity with multiple rests -11/28 12.PT feels anxiety holding therapy back-encourage -11/29 20ft with 1 break-crying the entire time with pain -8/18 WW 29 feet, limited with leg pain and dizziness Assessment & Plan (12/17/2024 1:15 PM CDT): Severe deconditioning due to prolonged and recurrent hospitalization, comorbidity, obesity, pain, anxiety -8 walked 4ft with WW, Tolerates 10 - 20 min activity with multiple rests -11/28 12.PT feels anxiety holding therapy back-encourage -11/29 WW 20ft with 1 break-crying the entire time with pain -8/18 WW 29 feet, limited with leg pain and dizziness Assessment & Plan (12/16/2024 2:46 PM CDT): Severe deconditioning due to prolonged and recurrent hospitalization, comorbidity, obesity, pain, anxiety -8/ walked 4ft with WW, Tolerates 10 - 20 min activity with multiple rests -11/28 12ft.PT feels anxiety holding therapy back-encourage -11/29 WW 20ft with 1 break-crying the entire time with pain -8/18 WW 29 feet, limited with leg pain and dizziness Assessment & Plan (12/15/2024 12:46 PM CDT): Severe deconditioning due to prolonged and recurrent hospitalization, comorbidity, obesity, pain, anxiety -8/ walked 4ft with WW, Tolerates 10 - 20 min activity with multiple rests -11/28 WW 12ft.PT feels anxiety holding therapy back-encourage -11/29 WW 20ft with 1 break-crying the entire time with pain -/18 WW 29 feet, limited with leg pain and dizziness Assessment & Plan (12/14/2024 10:58 AM CDT): Severe deconditioning due to prolonged and recurrent hospitalization, comorbidity, obesity, pain, anxiety -8 walked 4ft with WW, Tolerates 10 - 20 min activity with multiple rests -11/28 12ft.PT feels anxiety holding therapy back-encourage -11/29 WW 20ft with 1 break-crying the entire time with pain -12/08 WW 29 feet, limited with leg pain and dizziness Assessment & Plan (12/13/2024 1:19 PM CDT): Severe deconditioning due to prolonged and recurrent hospitalization, comorbidity, obesity, pain, anxiety -8 walked 4ft with WW, Tolerates 10 - 20 min activity with multiple rests -11/28 12ft.PT feels anxiety holding therapy back-encourage -11/29 WW 20ft with 1 break-crying the entire time with pain -/18 WW 29 feet, limited with leg pain and dizziness Assessment & Plan (12/12/2024 2:48 PM CDT): Severe deconditioning due to prolonged and recurrent hospitalization, comorbidity, obesity, pain, anxiety -8/ walked 4ft with WW, Tolerates 10 - 20 min activity with multiple rests -11/28 12ft.PT feels anxiety holding therapy back-encourage -11/29 WW 20ft with 1 break-crying the entire time with pain -8/18 WW 29 feet, limited with leg pain and dizziness Assessment & Plan (12/11/2024 8:52 PM CDT): Severe deconditioning due to prolonged and recurrent hospitalization, comorbidity, obesity, pain, anxiety -11/27 walked 4ft with WW, Tolerates 10 - 20 min activity with multiple rests -11/28 WW 12ft.PT feels anxiety holding therapy back-encourage -11/29 WW 20ft with 1 break-crying the entire time with pain -/18 WW 29 feet, limited with leg pain and dizziness Assessment & Plan (12/10/2024 8:41 AM CDT): Severe deconditioning due to prolonged hospital stay. OT/PT/routine services. OOBTC. Needs to rehab here 2/2 TPN. Encouraging participation daily. So far only sit to stands-not walking. -11/27 walked 4ft with WW, Tolerates 10 - 20 min activity with multiple rests -11/28 12ft.PT feels anxiety holding therapy back-encourage -11/29 20ft with 1 break-crying the entire time with pain -12/08 WW 29 feet, limited with leg pain and dizziness Assessment & Plan (12/09/2024 2:27 PM CDT): Severe deconditioning due to prolonged hospital stay. OT/PT/routine services. OOBTC. Needs to rehab here 2/2 TPN. Encouraging participation daily. So far only sit to stands-not walking. -11/27 walked 4ft with WW, Tolerates 10 - 20 min activity with multiple rests -11/28 12ft.PT feels anxiety holding therapy back-encourage -11/29 20ft with 1 break-crying the entire time with pain -18 WW 29 feet, limited with leg pain and dizziness Assessment & Plan (12/08/2024 2:09 PM CDT): Severe deconditioning due to prolonged hospital stay. OT/PT/routine services. OOBTC. Needs to rehab here 2/2 TPN. Encouraging participation daily. So far only sit to stands-not walking. -11/27 walked 4ft with WW, Tolerates 10 - 20 min activity with multiple rests -11/28 WW 12ft.PT feels anxiety holding therapy back-encourage -11/29 WW 20ft with 1 break-crying the entire time with pain Assessment & Plan (12/07/2024 1:18 PM CDT): Severe deconditioning due to prolonged hospital stay. OT/PT/routine services. OOBTC. Needs to rehab here 2/2 TPN. Encouraging participation daily. So far only sit to stands-not walking. -11/27 walked 4ft with WW, Tolerates 10 - 20 min activity with multiple rests -11/28 12ft.PT feels anxiety holding therapy back-encourage -11/29 20ft with 1 break-crying the entire time with pain Assessment & Plan (12/06/2024 2:19 PM CDT): Severe deconditioning due to prolonged hospital stay. OT/PT/routine services. OOBTC. Needs to rehab here 2/2 TPN. Encouraging participation daily. So far only sit to stands-not walking. -11/27 walked 4ft with WW, Tolerates 10 - 20 min activity with multiple rests -11/28 12ft.PT feels anxiety holding therapy back-encourage -11/29 20ft with 1 break-crying the entire time with pain Assessment & Plan (12/05/2024 4:47 PM CDT): Severe deconditioning due to prolonged hospital stay. OT/PT/routine services. OOBTC. Needs to rehab here 2/2 TPN. Encouraging participation daily. So far only sit to stands-not walking. -11/27 walked 4ft with WW, Tolerates 10 - 20 min activity with multiple rests -11/28 12ft.PT feels anxiety holding therapy back-encourage -11/29 20ft with 1 break-crying the entire time with pain Assessment & Plan (12/04/2024 2:08 PM CDT): Severe deconditioning due to prolonged hospital stay. OT/PT/routine services. OOBTC. Needs to rehab here 2/2 TPN. Encouraging participation daily. So far only sit to stands-not walking. -11/27 walked 4ft with WW, Tolerates 10 - 20 min activity with multiple rests -11/28 12ft.PT feels anxiety holding therapy back-encourage -11/29 20ft with 1 break-crying the entire time with pain Assessment & Plan (12/03/2024 6:06 PM CDT): Severe deconditioning due to prolonged hospital stay. OT/PT/routine services. OOBTC. Needs to rehab here 2/2 TPN. Encouraging participation daily. So far only sit to stands-not walking. -11/27 walked 4ft with WW, Tolerates 10 - 20 min activity with multiple rests -11/28 12ft.PT feels anxiety holding therapy back-encourage -11/29 20ft with 1 break-crying the entire time with pain Assessment & Plan (12/02/2024 2:26 PM CDT): Severe deconditioning due to prolonged hospital stay. OT/PT/routine services. OOBTC. Needs to rehab here 2/2 TPN. Encouraging participation daily. So far only sit to stands-not walking. -11/27 walked 4ft with WW, Tolerates 10 - 20 min activity with multiple rests -11/28 12.PT feels anxiety holding therapy back-encourage -11/29 20ft with 1 break-crying the entire time with pain Assessment & Plan (12/01/2024 9:54 AM CDT): Severe deconditioning due to prolonged hospital stay. OT/PT/routine services. OOBTC. Needs to rehab here 2/2 TPN. Encouraging participation daily. So far only sit to stands-not walking. -11/27 walked 4ft with WW, Tolerates 10 - 20 min activity with multiple rests -11/28 12ft.PT feels anxiety holding therapy back-encourage -11/29 20ft with 1 break-crying the entire time with pain Assessment & Plan (11/30/2024 1:01 PM CDT): Severe deconditioning due to prolonged hospital stay. OT/PT/routine services. OOBTC. Needs to rehab here 2/2 TPN. Encouraging participation daily. So far only sit to stands-not walking. -11/27 walked 4ft with WW, Tolerates 10 - 20 min activity with multiple rests -11/28 WW 12ft.PT feels anxiety holding therapy back-encourage -11/29 WW 20ft with 1 break-crying the entire time with pain Assessment & Plan (11/29/2024 11:20 AM CDT): Severe deconditioning due to prolonged hospital stay. OT/PT/routine services. OOBTC. Needs to rehab here 2/2 TPN. Encouraging participation daily. So far only sit to stands-not walking. -11/27 walked 4ft with WW, Tolerates 10 - 20 min activity with multiple rests -11/28 WW 12ft.PT feels anxiety holding therapy back-encourage Assessment & Plan (11/28/2024 1:42 PM CDT): Severe deconditioning due to prolonged hospital stay. OT/PT/routine services. OOBTC. Needs to rehab here 2/2 TPN. Encouraging participation daily. So far only sit to stands-not walking. -11/27 walked 4ft with WW, Tolerates 10 - 20 min activity with multiple rests Assessment & Plan (11/27/2024 10:16 AM CDT): Severe deconditioning due to prolonged hospital stay. OT/PT/routine services. OOBTC. Needs to rehab here 2/2 TPN. Encouraging participation daily. So far only sit to stands-not walking. Tracheostomy in place 11/20/2024 Assessment & Plan (12/03/2024 6:06 PM CDT): S/p cardiac arrest w/ emergent cricothyroidotomy revised with placement of Shiley #6 PXLT cuffed trach on 11/11. Replaced by ENT on 11/16 with #6 Shiley PXLT Cuffless. On 11/17 patient trialed PMSV valve with GEOPHYSICIST but was unable to tolerate however can speak one word at a time without use of PMSV. ENT/pulm consulted for blood tinged sputum, healing as expected w/o any concerns. Trach was downsized on 11/21 to #4 Jermaine by Pulm with ENT at bedside given difficult airway. -11/21 Transferred to PPCU -11/22 per Pulm trial capping trach during day: did not tolerate -11/23 tolerated trach capping during day and HHTC at night -11/24 trach capping trial - did rehab with PT then in afternoon found with dislodged trach- ENT/difficult airways scoped and replaced #5 PXLT Shiley Cuffless with good ETCO2 waveform. -11/25 resume capping trial x 24hours as tolerated and check am ABG -8/6 am ABG=7.36/41/138-will confirm with CRS that don't need to keep trach for surgery -11/27 no plan for surgery this admission per CRS. Decannulated trach. -11/29 site healing Assessment & Plan (12/02/2024 2:26 PM CDT): S/p cardiac arrest w/ emergent cricothyroidotomy revised with placement of Shiley #6 PXLT cuffed trach on 11/11. Replaced by ENT on 11/16 with #6 Shiley PXLT Cuffless. On 11/17 patient trialed PMSV valve with GEOPHYSICIST but was unable to tolerate however can speak one word at a time without use of PMSV. ENT/pulm consulted for blood tinged sputum, healing as expected w/o any concerns. Trach was downsized on 11/21 to #4 Jermaine by Pulm with ENT at bedside given difficult airway. -11/21 Transferred to PPCU -11/22 per Pulm trial capping trach during day: did not tolerate -11/23 tolerated trach capping during day and HHTC at night -11/24 trach capping trial - did rehab with PT then in afternoon found with dislodged trach- ENT/difficult airways scoped and replaced #5 PXLT Shiley Cuffless with good ETCO2 waveform. -11/25 resume capping trial x 24hours as tolerated and check am ABG -8/6 am ABG=7.36/41/138-will confirm with CRS that don't need to keep trach for surgery -11/27 no plan for surgery this admission per CRS. Decannulated trach. -11/29 site healing Assessment & Plan (12/01/2024 9:54 AM CDT): S/p cardiac arrest w/ emergent cricothyroidotomy revised with placement of Shiley #6 PXLT cuffed trach on 11/11. Replaced by ENT on 11/16 with #6 Shiley PXLT Cuffless. On 11/17 patient trialed PMSV valve with GEOPHYSICIST but was unable to tolerate however can speak one word at a time without use of PMSV. ENT/pulm consulted for blood tinged sputum, healing as expected w/o any concerns. Trach was downsized on 11/21 to #4 Jermaine by Pulm with ENT at bedside given difficult airway. -11/21 Transferred to PPCU -11/22 per Pulm trial capping trach during day: did not tolerate -8/3 tolerated trach capping during day and HHTC at night -11/24 trach capping trial - did rehab with PT then in afternoon found with dislodged trach- ENT/difficult airways scoped and replaced #5 PXLT Shiley Cuffless with good ETCO2 waveform. -11/25 resume capping trial x 24hours as tolerated and check am ABG -11/26 am ABG=7.36/41/138-will confirm with CRS that don't need to keep trach for surgery -11/27 no plan for surgery this admission per CRS. Decannulated trach. -11/29 site healing Assessment & Plan (11/30/2024 1:01 PM CDT): S/p cardiac arrest w/ emergent cricothyroidotomy revised with placement of Shiley #6 PXLT cuffed trach on 11/11. Replaced by ENT on 11/16 with #6 Shiley PXLT Cuffless. On 11/17 patient trialed PMSV valve with GEOPHYSICIST but was unable to tolerate however can speak one word at a time without use of PMSV. ENT/pulm consulted for blood tinged sputum, healing as expected w/o any concerns. Trach was downsized on 11/21 to #4 Jermaine by Pulm with ENT at bedside given difficult airway. -11/21 Transferred to PPCU -11/22 per Pulm trial capping trach during day: did not tolerate -8/3 tolerated trach capping during day and HHTC at night -11/24 trach capping trial - did rehab with PT then in afternoon found with dislodged trach- ENT/difficult airways scoped and replaced #5 PXLT Shiley Cuffless with good ETCO2 waveform. -11/25 resume capping trial x 24hours as tolerated and check am ABG -8 am ABG=7.36/41/138-will confirm with CRS that don't need to keep trach for surgery -11/27 no plan for surgery this admission per CRS. Decannulated trach. -11/29 site healing Assessment & Plan (11/29/2024 11:20 AM CDT): S/p cardiac arrest w/ emergent cricothyroidotomy revised with placement of Shiley #6 PXLT cuffed trach on 11/11. Replaced by ENT on 11/16 with #6 Shiley PXLT Cuffless. On 11/17 patient trialed PMSV valve with GEOPHYSICIST but was unable to tolerate however can speak one word at a time without use of PMSV. ENT/pulm consulted for blood tinged sputum, healing as expected w/o any concerns. Trach was downsized on 11/21 to #4 Jermaine by Pulm with ENT at bedside given difficult airway. -11/21 Transferred to PPCU -11/22 per Pulm trial capping trach during day: did not tolerate -11/23 tolerated trach capping during day and HHTC at night -11/24 trach capping trial - did rehab with PT then in afternoon found with dislodged trach- ENT/difficult airways scoped and replaced #5 PXLT Shiley Cuffless with good ETCO2 waveform. -11/25 resume capping trial x 24hours as tolerated and check am ABG -11/26 am ABG=7.36/41/138-will confirm with CRS that don't need to keep trach for surgery -11/27 no plan for surgery this admission per CRS. Decannulated trach. -11/29 site healing Assessment & Plan (11/28/2024 1:42 PM CDT): S/p cardiac arrest w/ emergent cricothyroidotomy revised with placement of Shiley #6 PXLT cuffed trach on 11/11. Replaced by ENT on 11/16 with #6 Shiley PXLT Cuffless. On 11/17 patient trialed PMSV valve with GEOPHYSICIST but was unable to tolerate however can speak one word at a time without use of PMSV. ENT/pulm consulted for blood tinged sputum, healing as expected w/o any concerns. Trach was downsized on 11/21 to #4 Jermaine by Pulm with ENT at bedside given difficult airway. -11/21 Transferred to PPCU -11/22 per Pulm trial capping trach during day: did not tolerate -11/23 tolerated trach capping during day and HHTC at night -11/24 trach capping trial - did rehab with PT then in afternoon found with dislodged trach- ENT/difficult airways scoped and replaced #5 PXLT Shiley Cuffless with good ETCO2 waveform. -11/25 resume capping trial x 24hours as tolerated and check am ABG -11/26 am ABG=7.36/41/138-will confirm with CRS that don't need to keep trach for surgery -11/27 no plan for surgery this admission. Decannulated trach. Assessment & Plan (11/28/2024 12:36 PM CDT): Pulmonology was consulted to assist in wean of her trach in the setting of coughing and blood tinged secretions when trying her Passy [place] valve. She has since had her trach changed with ENT 11/21, some granulation tissue and superficial irritation noted, otherwise healing very well. She was able to phonate around the Jermaine 4 trach even while it was not occluded. She has been doing well with capping trials during the day. She had trach changed to Shiley 5 proximal xl on 11/24 after Jermaine 4 regular was dislodged and has had some discomfort/coughing since. Pt has not had a sleeps study but suspect underlying ADOLFO/OHS which will need to monitor for after anticipated trach decannulation. Her CO2 was stable after 24 hrs capping. She continued to be capped now for >48 hrs and was thus decannulated 11/27 after discussions with surgery and anesthesia confirming that she no longer requires tracheostomy. Recommendations: S/p decannulation 11/27 and doing well May benefit from outpatient sleep referral to assess for ADOLFO/OHS given her body habitus, morning CO2 during capping trial was normal Assessment & Plan (11/27/2024 10:31 AM CDT): 44 yr old F with recurrent diverticulitis c/b colovesicular fistula, nephrolithiasis s/p lithotripsy and ureteral stent who was initially admitted with suspected urologic infection who was brought to the OR 11/11 and experience cardiac arrest 2/2 difficult intubation leading to emergent cricothyroidotomy followed by tracheostomy placement. Pulmonology was consulted to assist in wean of her trach in the setting of coughing and blood tinged secretions when trying her Passy [place] valve. She has since had her trach changed with ENT 11/21, some granulation tissue and superficial irritation noted, otherwise healing very well. She was able to phonate around the Jermaine 4 trach even while it was not occluded. She has been doing well with capping trials during the day. She had trach changed to Shiley 5 proximal xl on 11/24 after Jermaine 4 regular was dislodged and has had some discomfort/coughing since. Pt has not had a sleeps study but suspect underlying ADOLFO/OHS which will need to monitor for after anticipated trach decannulation. Recommendations: Capping trial 24 hrs with blood gas in the AM CXR to see where new trach is sitting - investigating the cause of her irritation Trial lidocaine neb to suppress cough w new trach 44 yr old F with recurrent diverticulitis c/b colovesicular fistula, nephrolithiasis s/p lithotripsy and ureteral stent who was initially admitted with suspected urologic infection who was brought to the OR 11/11 and experience cardiac arrest 2/2 difficult intubation leading to emergent cricothyroidotomy followed by tracheostomy placement. Pulmonology was consulted to assist in wean of her trach in the setting of coughing and blood tinged secretions when trying her Passy [place] valve. She has since had her trach changed with ENT 11/21, some granulation tissue and superficial irritation noted, otherwise healing very well. She was able to phonate around the Jermaine 4 trach even while it was not occluded. She has been doing well with capping trials during the day. She had trach changed to Shiley 5 proximal xl on 11/24 after Jermaine 4 regular was dislodged and has had some discomfort/coughing since. Pt has not had a sleeps study but suspect underlying ADOLFO/OHS which will need to monitor for after anticipated trach decannulation. Her CO2 was stable after 24 hrs capping. She continues to be capped now for >48 hrs. Recommendations: Capping trial x 48 and tolerating well with stable CO2 Trial lidocaine neb to suppress cough w new trach - can continue prn lidocaine neb if experiencing coughing Would clarify with surgery if she will be having her surgery completed soon. If so, would then discuss with anesthesia if better to leave trach in place given difficulty with obtaining airway at time of prior surgery attempt. Assessment & Plan (11/27/2024 10:16 AM CDT): S/p cardiac arrest w/ emergent cricothyroidotomy revised with placement of Shiley #6 PXLT cuffed trach on 11/11. Replaced by ENT on 11/16 with #6 Shiley PXLT Cuffless. On 11/17 patient trialed PMSV valve with GEOPHYSICIST but was unable to tolerate however can speak one word at a time without use of PMSV. ENT/pulm consulted for blood tinged sputum, healing as expected w/o any concerns. Trach was downsized on 11/21 to #4 Jermaine by Pulm with ENT at bedside given difficult airway. -11/21 Transferred to PPCU -11/22 per Pulm trial capping trach during day: did not tolerate -11/23 tolerated trach capping during day and HHTC at night -11/24 trach capping trial - did rehab with PT then in afternoon found with dislodged trach- ENT/difficult airways scoped and replaced #5 PXLT Shiley Cuffless with good ETCO2 waveform. -11/25 resume capping trial x 24hours as tolerated and check am ABG -8 am ABG=7.36/41/138-will confirm with CRS that don't need to keep trach for surgery-awaiting response 11/27. Assessment & Plan (11/26/2024 12:13 PM CDT): S/p cardiac arrest w/ emergent cricothyroidotomy revised with placement of Shiley #6 PXLT cuffed trach on 11/11. Replaced by ENT on 11/16 with #6 Shiley PXLT Cuffless. On 11/17 patient trialed PMSV valve with GEOPHYSICIST but was unable to tolerate however can speak one word at a time without use of PMSV. ENT/pulm consulted for blood tinged sputum, healing as expected w/o any concerns. Trach was downsized on 11/21 to #4 Jermaine by Pulm with ENT at bedside given difficult airway. -11/21 Transferred to PPCU -11/22 per Pulm trial capping trach during day: did not tolerate -8/3 tolerated trach capping during day and HHTC at night -11/24 trach capping trial - did rehab with PT then in afternoon found with dislodged trach- ENT/difficult airways scoped and replaced #5 PXLT Shiley Cuffless with good ETCO2 waveform. -11/25 resume capping trial x 24hours as tolerated and check am ABG -11/26 am ABG=7.36/41/138-will confirm with CRS that don't need to keep trach for surgery Assessment & Plan (11/25/2024 3:35 PM CDT): S/p cardiac arrest w/ emergent cricothyroidotomy revised with placement of Shiley #6 PXLT cuffed trach on 11/11. Replaced by ENT on 11/16 with #6 Shiley PXLT Cuffless. On 11/17 patient trialed PMSV valve with GEOPHYSICIST but was unable to tolerate however can speak one word at a time without use of PMSV. ENT/pulm consulted for blood tinged sputum, healing as expected w/o any concerns. Trach was downsized on 11/21 to #4 Jermaine by Pulm with ENT at bedside given difficult airway. -11/21 Transferred to PPCU -11/22 per Pulm trial capping trach during day: did not tolerate -8/3 tolerated trach capping during day and HHTC at night -11/24 trach capping trial - did rehab with PT then in afternoon found with dislodged trach- ENT/difficult airways scoped and replaced #5 PXLT Shiley Cuffless with good ETCO2 waveform. -11/25 resume capping trial x 24hours as tolerated and check am ABG Assessment & Plan (11/25/2024 10:57 AM CDT): 44 yr old F with recurrent diverticulitis c/b colovesicular fistula, nephrolithiasis s/p lithotripsy and ureteral stent who was initially admitted with suspected urologic infection who was brought to the OR 11/11 and experience cardiac arrest 2/2 difficult intubation leading to emergent cricothyroidotomy followed by tracheostomy placement. Pulmonology was consulted to assist in wean of her trach in the setting of coughing and blood tinged secretions when trying her Pass[place] valve. She has since had her trach changed with ENT 11/21, some granulation tissue and superficial irritation noted, otherwise healing very well. She was able to phonate around the Jermaine 4 trach even while it was not occluded. She has been doing well with capping trials during the day. She had trach changed to Shiley 5 proximal xl on 11/24 after Jermaine 4 regular was dislodged and has had some discomfort/coughing since. Pt has not had a sleeps study but suspect underlying ADOLFO/OHS which will need to monitor for after anticipated trach decannulation. Recommendations: Capping trial 24 hrs with blood gas in the AM CXR to see where new trach is sitting - investigating the cause of her irritation Trial lidocaine neb to suppress cough w new trach Assessment & Plan (11/24/2024 10:40 AM CDT): 44 yr old F with recurrent diverticulitis c/b colovesicular fistula, nephrolithiasis s/p lithotripsy and ureteral stent who was initially admitted with suspected urologic infection who was brought to the OR 11/11 and experience cardiac arrest 2/2 difficult intubation leading to emergent cricothyroidotomy followed by tracheostomy placement. Pulmonology was consulted to assist in wean of her trach in the setting of coughing when trying her Passy [place] valve. The patient reports that she has been struggling with a cough when she attempts to trial the Passy [place] valve with speech. At the bedside the patient was able to phonate with the trach in place without occluding the opening. The patient was able to do this without coughing a did not have significant secretions. Patient does report that when she does cough sometimes her secretions are blood-tinged. Trach change performed with ENT 11/21, some granulation tissue and superficial irritation noted, otherwise healing very well. She was able to phonate around the Jermaine 4 trach even while it was not occluded. We did trial occluding the trach which was she was able to phonate well and was clinically stable. Anticipate she may continue to have some blood-tinged secretions as her trach continues to heal. Reported she is doing well w PMV trials. She is now in PPCU. Recommendations: Trach exchanged for 4 Jermaine 8/1 Proceed with capping trials during the day, trach collar at night 44 yr old F with recurrent diverticulitis c/b colovesicular fistula, nephrolithiasis s/p lithotripsy and ureteral stent who was initially admitted with suspected urologic infection who was brought to the OR 11/11 and experience cardiac arrest 2/2 difficult intubation leading to emergent cricothyroidotomy followed by tracheostomy placement. Pulmonology was consulted to assist in wean of her trach in the setting of coughing when trying her Passy [place] valve. The patient reports that she has been struggling with a cough when she attempts to trial the Passy [place] valve with speech. At the bedside the patient was able to phonate with the trach in place without occluding the opening. The patient was able to do this without coughing a did not have significant secretions. Patient does report that when she does cough sometimes her secretions are blood-tinged. Trach change performed with ENT 11/21, some granulation tissue and superficial irritation noted, otherwise healing very well. She was able to phonate around the Jermaine 4 trach even while it was not occluded. We did trial occluding the trach which was she was able to phonate well and was clinically stable. Anticipate she may continue to have some blood-tinged secretions as her trach continues to heal. Reported she is doing well w PMV trials. She is now in PPCU. Recommendations: Trach exchanged for 4 Jermaine 11/21 Patient had some anxiety with trach capping on 11/22. However tolerating it today. Would cap trach during the day and use high humidity trach collar at night. Can consider 24 hr capping trial tomorrow. Assessment & Plan (11/24/2024 11:39 PM CDT): S/p cardiac arrest w/ emergent cricothyroidotomy revised with placement of Shiley 6 cuffed trach on 11/11. Tracheostomy replaced by ENT Otolaryngology on 11/16 with #6 Shiley XLT Proximal Cuffless. On 11/17 patient trialed PMV valve with GEOPHYSICIST but was unable to tolerate however can speak one word at a time without use of PMSV. ENt/pulm consulted for blood tinged sputum, healing as expected w/o any concerns. Trach was downsized on 11/21 to # 4 Jermaine by Pulm with ENT at bedside given difficult airways - GEOPHYSICIST following: cleared for diet, tolerating FLD - Trial PMV w/ supervision -Transfer to PPCU 11/21 pm -intensive PT/OT, OOBTC planned -Continue HHTC - Pulm consult following and rec trach capping trial during day as tolerated, uncap at night 8/2 did not tolerate, 8-3 tolerated trach capping during day and uncap at night 8-4 same plan for capping trial , pt found with dislodged trach- ENT/difficult airways scoped and placed Trach #5 Shiley XL, Proximal, Cuffless with good ETCO2 waveform , see event note Monitor on TC - ENT to be contacted if issues/ concerns Assessment & Plan (11/23/2024 8:59 PM CDT): S/p cardiac arrest in the ICU w/ emergent cricothyroidotomy revised with placement of Shiley 6 cuffed trach on 11/11. Tracheostomy replaced by ENT Otolaryngology on 11/16 with #6 Shiley XLT Proximal Cuffless. On 11/17 patient trialed PMV valve with GEOPHYSICIST but was unable to tolerate however can speak one word at a time without use of PMSV. ENt/pulm consulted for blood tinged sputum, healing as expected w/o any concerns. Trach was downsized on 11/21 to # 4 Jermaine by Pulm with ENT at bedside given difficult airways - GEOPHYSICIST following: cleared for diet, tolerating FLD - Trial PMV w/ supervision -Transfer to PPCU 11/21 pm -intensive PT/OT, OOBTC planned -Continue HHTC - - Discussed capping trial during day per Pulm and uncap to TC at night , did not tolerate on -2, possibly related to anxiety. Doing well today - GEOPHYSICIST following - ENT to be contacted if issues/ concerns Assessment & Plan (11/22/2024 3:00 PM CDT): 44 yr old F with recurrent diverticulitis c/b colovesicular fistula, nephrolithiasis s/p lithotripsy and ureteral stent who was initially admitted with suspected urologic infection who was brought to the OR 11/11 and experience cardiac arrest 2/2 difficult intubation leading to emergent cricothyroidotomy followed by tracheostomy placement. Pulmonology was consulted to assist in wean of her trach in the setting of coughing when trying her Passy [place] valve. The patient reports that she has been struggling with a cough when she attempts to trial the Passy [place] valve with speech. At the bedside the patient was able to phonate with the trach in place without occluding the opening. The patient was able to do this without coughing a did not have significant secretions. Patient does report that when she does cough sometimes her secretions are blood-tinged. Trach change performed with ENT 11/21, some granulation tissue and superficial irritation noted, otherwise healing very well. She was able to phonate around the Jermaine 4 trach even while it was not occluded. We did trial occluding the trach which was she was able to phonate well and was clinically stable. Anticipate she may continue to have some blood-tinged secretions as her trach continues to heal. Reported she is doing well w PMV trials. She is now in PPCU. Recommendations: Trach exchanged for 4 Jermaine 11/21 Proceed with capping trials during the day, trach collar at night Assessment & Plan (11/22/2024 7:23 PM CDT): S/p cardiac arrest in the ICU w/ emergent cricothyroidotomy revised with placement of Shiley 6 cuffed trach on 11/11. Tracheostomy replaced by ENT Otolaryngology on 11/16 with #6 Shiley XLT Proximal Cuffless. On 11/17 patient trialed PMV valve with GEOPHYSICIST but was unable to tolerate however can speak one word at a time without use of PMSV. ENt/pulm consulted for blood tinged sputum, healing as expected w/o any concerns. Trach was downsized on 11/21 by Pulm/ENT at bedside for trach downsize # 4 Jermaine - GEOPHYSICIST following: cleared for diet, tolerating FLD - Trial PMV w/ supervision -Transfer to PPCU 11/21 pm -intensive PT/OT, OOBTC planned -Continue HHTC - capping trial during day per Pulm, did not tolerate - GEOPHYSICIST following - ENT to be contacted if issues/ concerns Assessment & Plan (11/21/2024 6:34 PM CDT): 44 yr old F with recurrent diverticulitis c/b colovesicular fistula, nephrolithiasis s/p lithotripsy and ureteral stent who was initially admitted with suspected urologic infection who was brought to the OR 11/11 and experience cardiac arrest 2/2 difficult intubation leading to emergent cricothyroidotomy followed by tracheostomy placement. Pulmonology was consulted to assist in wean of her trach in the setting of coughing when trying her Passy [place] valve. The patient reports that she has been struggling with a cough when she attempts to trial the Passy [place] valve with speech. At the bedside the patient was able to phonate with the trach in place without occluding the opening. The patient was able to do this without coughing a did not have significant secretions. Patient does report that when she does cough sometimes her secretions are blood-tinged. Trach change performed with ENT, some granulation tissue and superficial irritation noted, otherwise healing very well. She was able to phonate around the Jermaine 4 trach even while it was not occluded. We did trial occluding the trach which was she was able to phonate well and was clinically stable. Anticipate she may continue to have some blood-tinged secretions as her trach continues to heal. Recommendations: Trach exchanged for 4 Jermaine Continue PMV trials, can proceed with capping as tolerated. If she has coughing with PMV and is otherwise well appearing can try capping as opposed to PMV as we anticipate she will do well with capping trials. Agree with the PPCU consult Assessment & Plan (11/21/2024 3:38 PM CDT): Patient had cardiac arrest in the ICU w/ emergent cricothyroidotomy revised with placement of Shiley 6 cuffed trach on 11/11. ENt/pulm consulted for blood tinged sputum, healing as expected w/o any concerns. Trach was downsized on 11/21 by Pulm/ENT at bedside for trach downsize. Trach: Jermaine 4 W. Cleared to trial PMV and if not tolerating can try capping and see if she tolerates (per pulm/ent: PMV may be causing irritation, and pt is able to occlude trach and phonate on her own). - C/w trach collar - GEOPHYSICIST following: cleared for diet, tolerating FLD - Trial PMV w/ supervision - PPCU consult placed, hopeful for transfer; in the meantime, aggressive PT/OT, OOBTC. Assessment & Plan (11/20/2024 4:32 PM CDT): 44 yr old F with recurrent diverticulitis c/b colovesicular fistula, nephrolithiasis s/p lithotripsy and ureteral stent who was initially admitted with suspected urologic infection who was brought to the OR 11/11 and experience cardiac arrest 2/2 difficult intubation leading to emergent cricothyroidotomy followed by tracheostomy placement. Pulmonology was consulted to assist in wean of her trach in the setting of coughing when trying her Passy [place] valve. The patient reports that she has been struggling with a cough when she attempts to trial the Passy [place] valve with speech. At the bedside the patient was able to phonate with the trach in place without occluding the opening. The patient was able to do this without coughing a did not have significant secretions. Patient does report that when she does cough sometimes her secretions are blood-tinged. Overall suspect that she could have some granulation tissue causing her irritation and bleeding which could be evaluated with ENT. Also she could be evaluated for downsizing her trach with ENT as well. Agree with PPCU consult in the meantime. 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 12/04/2024 - replaced with 22Fr [address] way mcclelland catheter; irrigation 30cc bid - 12/24 Tmax=38.7, WBC=7.79k-check cultures-pending, viral swab(-) - 12/25 Tmax=39.2, hemodynamically stable, per ID monitor and hold on empiric IV abx, monitor-BCx's (+) for ruddy albicans-start micafungin - 12/26 ECHO with no vegetations - 12/27 (-) exam per ophtha for ocular fungemia-will ask for peripheral IV-BCx x 1 sent - 12/28 PICC line pulled, repeat BCx sent, 12/27 BC with staph epi-likely contaminant 12/29 - growing staph epidermidis -> likely contaminant 12/30 - Repeat blood cultures sent on 12/30 NGTD - 01/03- picc line placed for home Na thisulphate at discharge - 01/09/2025- completed 2 weeks of iv micafungin from neg cx 12/27 Assessment & Plan (01/17/2025 2:32 PM CDT): -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, UA (10/30)- nitrite+, leuk esterase+, pyuria, bacteriuria+, Urine cx- contaminated- mixed krzysztof -CT A/P 10/30- no pyelonephritis, notable for acute on chronic diverticulitis, and 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 12/04/2024 - replaced with 22Fr [address] way mcclelland catheter; irrigation 30cc bid - 12/24 Tmax=38.7, WBC=7.79k-check cultures-pending, viral swab(-) - 12/25 Tmax=39.2, hemodynamically stable, per ID monitor and hold on empiric IV abx, monitor-BCx's (+) for ruddy albicans-start micafungin - 12/26 ECHO with no vegetations - 12/27 (-) exam per ophtha for ocular fungemia-will ask for peripheral IV-BCx x 1 sent - 12/28 PICC line pulled, repeat BCx sent, 12/27 BC with staph epi-likely contaminant 12/29 - growing staph epidermidis -> likely contaminant 12/30 - Repeat blood cultures sent on 12/30 NGTD - 01/03- picc line placed for home Na thisulphate at discharge - 01/09/2025- completed 2 weeks of iv micafungin from neg cx 12/27 Assessment & Plan (01/16/2025 9:26 PM CDT): -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, UA (10/30)- nitrite+, leuk esterase+, pyuria, bacteriuria+, Urine cx- contaminated- mixed krzysztof -CT A/P 10/30- no pyelonephritis, notable for acute on chronic diverticulitis, and 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 12/04/2024 - replaced with 22Fr [address] mcclelland catheter; irrigation 30cc bid - 12/24 Tmax=38.7, WBC=7.79k-check cultures-pending, viral swab(-) - 12/25 Tmax=39.2, hemodynamically stable, per ID monitor and hold on empiric IV abx, monitor-BCx's (+) for ruddy albicans-start micafungin - 12/26 ECHO with no vegetations - 12/27 (-) exam per ophtha for ocular fungemia-will ask for peripheral IV-BCx x 1 sent - 12/28 PICC line pulled, repeat BCx sent, 12/27 BC with staph epi-likely contaminant 12/29 - growing staph epidermidis -> likely contaminant 12/30 - Repeat blood cultures sent on 12/30 NGTD - 01/03- picc line placed for home Na thisulphate at discharge - 01/09/2025- completed 2 weeks of iv micafungin from neg cx 12/27 Assessment & Plan (01/15/2025 9:08 PM CDT): -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, UA (10/30)- nitrite+, leuk esterase+, pyuria, bacteriuria+, Urine cx- contaminated- mixed krzysztof -CT A/P 10/30- no pyelonephritis, notable for acute on chronic diverticulitis, and 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 Antibiotics: Zosyn (11/05 - 11/18) Linezolid (10/31 - 11/18) Unasyn (11/01 - 11/05)Augmentin (10/30 - 10/31), Cefe, metronidazole (12/12-12/21) Augmentin BID (11/18-) Tedizolid 200mg daily (11/18-) until surgery with CRS - - needs new PA for tedizolid - denied -appealing - 01/14: - PA for tedizolid was appealed- denial was upheld, with a 24 hour window to provide additional documentation, Discussed with ID team, who documented the necessity for prolonged antibiotic course , which was faxed over by the CM 01/15- PA pending - Mcclelland indication: 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 12/04/2024 - replaced with 22Fr [address] mcclelland catheter; irrigation 30cc bid - 12/24 Tmax=38.7, WBC=7.79k-check cultures-pending, viral swab(-) - 12/25 Tmax=39.2, hemodynamically stable, per ID monitor and hold on empiric IV abx, monitor-BCx's (+) for ruddy albicans-start micafungin - 12/26 ECHO with no vegetations - 12/27 (-) exam per ophtha for ocular fungemia-will ask for peripheral IV-BCx x 1 sent - 12/28 PICC line pulled, repeat BCx sent, 12/27 BC with staph epi-likely contaminant 12/29 - growing staph epidermidis -> likely contaminant 12/30 - Repeat blood cultures sent on 12/30 NGTD - 01/03- picc line placed for home Na thisulphate at discharge - 01/09/2025- completed 2 weeks of iv micafungin from neg cx 12/27 Assessment & Plan (01/14/2025 11:05 PM CDT): -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, UA (10/30)- nitrite+, leuk esterase+, pyuria, bacteriuria+, Urine cx- contaminated- mixed krzysztof -CT A/P 10/30- no pyelonephritis, notable for acute on chronic diverticulitis, and 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 12/04/2024 - replaced with 22Fr [address] mcclelland catheter; irrigation 30cc bid - 12/24 Tmax=38.7, WBC=7.79k-check cultures-pending, viral swab(-) - 12/25 Tmax=39.2, hemodynamically stable, per ID monitor and hold on empiric IV abx, monitor-BCx's (+) for ruddy albicans-start micafungin - 12/26 ECHO with no vegetations - 12/27 (-) exam per ophtha for ocular fungemia-will ask for peripheral IV-BCx x 1 sent - 12/28 PICC line pulled, repeat BCx sent, 12/27 BC with staph epi-likely contaminant 12/29 - growing staph epidermidis -> likely contaminant 12/30 - Repeat blood cultures sent on 12/30 NGTD - 01/03- picc line placed for home Na thisulphate at discharge - 01/09/2025- completed 2 weeks of iv micafungin from neg cx 12/27 Assessment & Plan (01/13/2025 8:04 PM CDT): -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, UA (10/30)- nitrite+, leuk esterase+, pyuria, bacteriuria+, Urine cx- contaminated- mixed krzysztof -CT A/P 10/30- no pyelonephritis, notable for acute on chronic diverticulitis, and 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 12/04/2024 - replaced with 22Fr [address] way mcclelland catheter; irrigation 30cc bid - 12/24 Tmax=38.7, WBC=7.79k-check cultures-pending, viral swab(-) - 12/25 Tmax=39.2, hemodynamically stable, per ID monitor and hold on empiric IV abx, monitor-BCx's (+) for ruddy albicans-start micafungin - 12/26 ECHO with no vegetations - 12/27 (-) exam per ophtha for ocular fungemia-will ask for peripheral IV-BCx x 1 sent - 12/28 PICC line pulled, repeat BCx sent, 12/27 BC with staph epi-likely contaminant 12/29 - growing staph epidermidis -> likely contaminant 12/30 - Repeat blood cultures sent on 12/30 NGTD - 01/03- picc line placed for home Na thisulphate at discharge - 01/09/2025- completed 2 weeks of iv micafungin from neg cx 12/27 Assessment & Plan (01/12/2025 1:20 PM CDT): -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 12/04/2024 - replaced with 22Fr [address] way mcclelland catheter; irrigation 30cc bid - 12/24 Tmax=38.7, WBC=7.79k-check cultures-pending, viral swab(-) - 12/25 Tmax=39.2, hemodynamically stable, per ID monitor and hold on empiric IV abx, monitor-BCx's (+) for ruddy albicans-start micafungin - 12/26 ECHO with no vegetations - 12/27 (-) exam per ophtha for ocular fungemia-will ask for peripheral IV-BCx x 1 sent - 12/28 PICC line pulled, repeat BCx sent, 12/27 BC with staph epi-likely contaminant 12/29 - growing staph epidermidis -> likely contaminant 12/30 - Repeat blood cultures sent on 12/30 NGTD - 01/03- picc line placed for home Na thisulphate at discharge - but decrease dose to 12.5 gm 3X/week - patient to receive 2 weeks of iv micafungin from when the cultures became neg ie (Last growth of ruddy noted on cx from 12/24 ) neg cx n 12/27 - EOT 01/09/2501/04- does not feel ready to be dicharged, wants to continue intensive PT. 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 12/04/2024 - replaced with 22Fr [address] mcclelland catheter; irrigation 30cc bid - 12/24 Tmax=38.7, WBC=7.79k-check cultures-pending, viral swab(-) - 12/25 Tmax=39.2, hemodynamically stable, per ID monitor and hold on empiric IV abx, monitor-BCx's (+) for ruddy albicans-start micafungin - 12/26 ECHO with no vegetations - 12/27 (-) exam per ophtha for ocular fungemia-will ask for peripheral IV-BCx x 1 sent - 12/28 PICC line pulled, repeat BCx sent, 12/27 BC with staph epi-likely contaminant 12/29 - growing staph epidermidis -> likely contaminant 12/30 - Repeat blood cultures sent on 12/30 NGTD - 01/03- picc line placed for home Na thisulphate at discharge - but decrease dose to 12.5 gm 3X/week - patient to receive 2 weeks of iv micafungin from when the cultures became neg ie (Last growth of ruddy noted on cx from 12/24 ) neg cx n 12/27 - EOT 01/09/2501/04- does not feel ready to be dicharged, wants to continue intensive PT. 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 12/04/2024 - replaced with 22Fr [address] mcclelland catheter; irrigation 30cc bid - 12/24 Tmax=38.7, WBC=7.79k-check cultures-pending, viral swab(-) - 12/25 Tmax=39.2, hemodynamically stable, per ID monitor and hold on empiric IV abx, monitor-BCx's (+) for ruddy albicans-start micafungin - 12/26 ECHO with no vegetations - 12/27 (-) exam per ophtha for ocular fungemia-will ask for peripheral IV-BCx x 1 sent - 12/28 PICC line pulled, repeat BCx sent, 12/27 BC with staph epi-likely contaminant 12/29 - growing staph epidermidis -> likely contaminant 12/30 - Repeat blood cultures sent on 12/30 NGTD - 01/03- picc line placed for home Na thisulphate at discharge - but decrease dose to 12.5 gm 3X/week - patient to receive 2 weeks of iv micafungin from when the cultures became neg ie (Last growth of ruddy noted on cx from 12/24 ) neg cx n 12/27 - EOT 01/09/25 at 1700 01/04- does not feel ready to be dicharged, wants to continue intensive PT. 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 12/04/2024 - replaced with 22Fr [address] mcclelland catheter; irrigation 30cc bid - 12/24 Tmax=38.7, WBC=7.79k-check cultures-pending, viral swab(-) - 12/25 Tmax=39.2, hemodynamically stable, per ID monitor and hold on empiric IV abx, monitor-BCx's (+) for ruddy albicans-start micafungin - 12/26 ECHO with no vegetations - 12/27 (-) exam per ophtha for ocular fungemia-will ask for peripheral IV-BCx x 1 sent - 12/28 PICC line pulled, repeat BCx sent, 12/27 BC with staph epi-likely contaminant 12/29 - growing staph epidermidis -> likely contaminant 12/30 - Repeat blood cultures sent on 12/30 NGTD - 01/03- picc line placed for home Na thisulphate at discharge - but decrease dose to 12.5 gm 3X/week - patient to receive 2 weeks of iv micafungin from when the cultures became neg ie (Last growth of ruddy noted on cx from 12/24 ) neg cx n 12/27 - EOT 01/09/25 at 1700 01/04- does not feel ready to be dicharged, wants to continue intensive PT. 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 12/04/2024 - replaced with 22Fr [address] mcclelland catheter; irrigation 30cc bid - 12/24 Tmax=38.7, WBC=7.79k-check cultures-pending, viral swab(-) - 12/25 Tmax=39.2, hemodynamically stable, per ID monitor and hold on empiric IV abx, monitor-BCx's (+) for ruddy albicans-start micafungin - 12/26 ECHO with no vegetations - 12/27 (-) exam per ophtha for ocular fungemia-will ask for peripheral IV-BCx x 1 sent - 12/28 PICC line pulled, repeat BCx sent, 12/27 BC with staph epi-likely contaminant 12/29 - growing staph epidermidis -> likely contaminant 12/30 - Repeat blood cultures sent on 12/30 NGTD - 01/03- picc line placed for home Na thisulphate at discharge - but decrease dose to 12.5 gm 3X/week - patient to receive 2 weeks of iv micafungin from when the cultures became neg ie (Last growth of ruddy noted on cx from 12/24 ) neg cx n 12/27 - EOT 01/09/25 at 1700 01/04- does not feel ready to be dicharged, wants to continue intensive PT. 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 12/04/2024 - replaced with 22Fr [address] mcclelland catheter; irrigation 30cc bid - 12/24 Tmax=38.7, WBC=7.79k-check cultures-pending, viral swab(-) - 12/25 Tmax=39.2, hemodynamically stable, per ID monitor and hold on empiric IV abx, monitor-BCx's (+) for ruddy albicans-start micafungin - 12/26 ECHO with no vegetations - 12/27 (-) exam per ophtha for ocular fungemia-will ask for peripheral IV-BCx x 1 sent - 12/28 PICC line pulled, repeat BCx sent, 12/27 BC with staph epi-likely contaminant 12/29 - growing staph epidermidis -> likely contaminant 12/30 - Repeat blood cultures sent on 12/30 NGTD - 01/03- picc line placed for home Na thisulphate at discharge - but decrease dose to 12.5 gm 3X/week - patient to receive 2 weeks of iv micafungin from when the cultures became neg ie (Last growth of ruddy noted on cx from 12/24 ) neg cx n 12/27 - EOT 01/09/25 at 1700 01/04- does not feel ready to be dicharged, wants to continue intensive PT. 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 12/04/2024 - replaced with 22Fr [address] mcclelland catheter; irrigation 30cc bid - 12/24 Tmax=38.7, WBC=7.79k-check cultures-pending, viral swab(-) - 12/25 Tmax=39.2, hemodynamically stable, per ID monitor and hold on empiric IV abx, monitor-BCx's (+) for ruddy albicans-start micafungin - 12/26 ECHO with no vegetations - 12/27 (-) exam per ophtha for ocular fungemia-will ask for peripheral IV-BCx x 1 sent - 12/28 PICC line pulled, repeat BCx sent, 12/27 BC with staph epi-likely contaminant 12/29 - growing staph epidermidis -> likely contaminant 12/30 - Repeat blood cultures sent on 12/30 NGTD - 01/03- picc line placed for home Na thisulphate at discharge - but decrease dose to 12.5 gm 3X/week - patient to receive 2 weeks of iv micafungin from when the cultures became neg ie (Last growth of ruddy noted on cx from 12/24 ) neg cx n 12/27 - EOT 01/09/25 at 1700 01/04- does not feel ready to be dicharged, wants to continue intensive PT. 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 12/04/2024 - replaced with 22Fr [address] mcclelland catheter; irrigation 30cc bid - 12/24 Tmax=38.7, WBC=7.79k-check cultures-pending, viral swab(-) - 12/25 Tmax=39.2, hemodynamically stable, per ID monitor and hold on empiric IV abx, monitor-BCx's (+) for ruddy albicans-start micafungin - 12/26 ECHO with no vegetations - 12/27 (-) exam per ophtha for ocular fungemia-will ask for peripheral IV-BCx x 1 sent - 12/28 PICC line pulled, repeat BCx sent, 12/27 BC with staph epi-likely contaminant 12/29 - growing staph epidermidis -> likely contaminant 12/30 - Repeat blood cultures sent on 12/30 NGTD Plan: - 01/03- picc line placed for home antibiotics - patient to receive 2 weeks of iv micafungin from when the cultures became neg ie (Last growth of ruddy noted on cx from 12/24 ) neg cx n 12/27 - EOT 01/09/2501/04- does not feel ready to be dicharged, wants to continue intensive PT. 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 12/04/2024 - replaced with 22Fr [address] mcclelland catheter; irrigation 30cc bid - 12/24 Tmax=38.7, WBC=7.79k-check cultures-pending, viral swab(-) - 12/25 Tmax=39.2, hemodynamically stable, per ID monitor and hold on empiric IV abx, monitor-BCx's (+) for ruddy albicans-start micafungin - 12/26 ECHO with no vegetations - 12/27 (-) exam per ophtha for ocular fungemia-will ask for peripheral IV-BCx x 1 sent - 12/28 PICC line pulled, repeat BCx sent, 12/27 BC with staph epi-likely contaminant 12/29 - growing staph epidermidis -> likely contaminant 12/30 - Repeat blood cultures sent on 12/30 NGTD Plan: - 01/04- picc line placed for home antibiotics - patient to receive 2 weeks of iv micafungin from when the cultures became neg ie (Last growth of ruddy noted on cx from 12/24 ) ~01/07 -medically ready for discharge - CM was working on setting up her home infusion, but patient says she doesn't feel ready to leave and still feels weak . Of note, patient has had >4 hospital admissions since May, and is at high risk of readmission, especially in her current debilitated state. will plan to finish antifungal course inpatient on 01/07 , remove PICC line and then d/c with home PT/OT. 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 12/04/2024 - replaced with 22Fr [address] mcclelland catheter; irrigation 30cc bid - 12/24 Tmax=38.7, WBC=7.79k-check cultures-pending, viral swab(-) - 12/25 Tmax=39.2, hemodynamically stable, per ID monitor and hold on empiric IV abx, monitor-BCx's (+) for ruddy albicans-start micafungin - 12/26 ECHO with no vegetations - 12/27 (-) exam per ophtha for ocular fungemia-will ask for peripheral IV-BCx x 1 sent - 12/28 PICC line pulled, repeat BCx sent, 12/27 BC with staph epi-likely contaminant 12/29 - growing staph epidermidis -> likely contaminant 12/30 - Repeat blood cultures sent on 12/30 NGTD Plan: - - blood cultures from 12/30- have been negative till date. 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 12/04/2024 - replaced with 22Fr [address] mcclelland catheter; irrigation 30cc bid - 12/24 Tmax=38.7, WBC=7.79k-check cultures-pending, viral swab(-) - 12/25 Tmax=39.2, hemodynamically stable, per ID monitor and hold on empiric IV abx, monitor-BCx's (+) for ruddy albicans-start micafungin - 12/26 ECHO with no vegetations - 12/27 (-) exam per ophtha for ocular fungemia-will ask for peripheral IV-BCx x 1 sent - 12/28 PICC line pulled, repeat BCx sent, 12/27 BC with staph epi-likely contaminant 12/29 - growing staph epidermidis , final report pending 12/30 - Repeat blood cultures sent on 12/30 NGTD, final report pending - f/u culture reports- patient to receive 2 weeks of iv micafungin from when the cultures became neg, will need PICC line for home iv abx therapy once cultures remain neg for 48 hours Assessment & Plan (01/01/2025 6:42 PM CDT): -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 12/04/2024 - replaced with 22Fr [address] mcclelland catheter; irrigation 30cc bid - 12/24 Tmax=38.7, WBC=7.79k-check cultures-pending, viral swab(-) - 12/25 Tmax=39.2, hemodynamically stable, per ID monitor and hold on empiric IV abx, monitor-BCx's (+) for ruddy albicans-start micafungin - 12/26 ECHO with no vegetations - 12/27 (-) exam per ophtha for ocular fungemia-will ask for peripheral IV-BCx x 1 sent - 12/28 PICC line pulled, repeat BCx sent, 12/27 BC with staph epi-likely contaminant 12/29 - growing staph epidermidis , final report pending Repeat blood cultures sent on 12/30 NGTD - f/u culture reports- patient to receive 2 weeks of iv micafungin from when the cultures became neg, will need PICC line for home iv abx therapy once cultures remain neg for 48 hours Assessment & Plan (12/31/2024 7:53 PM CDT): -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 12/04/2024 - replaced with 22Fr [address] mcclelland catheter; irrigation 30cc bid - 12/24 Tmax=38.7, WBC=7.79k-check cultures-pending, viral swab(-) - 12/25 Tmax=39.2, hemodynamically stable, per ID monitor and hold on empiric IV abx, monitor-BCx's (+) for ruddy albicans-start micafungin - 12/26 ECHO with no vegetations - 12/27 (-) exam per ophtha for ocular fungemia-will ask for peripheral IV-BCx x 1 sent - 12/28 PICC line pulled, repeat BCx sent, 12/27 BC with staph epi-likely contaminant 12/29 - growing staph epidermidis , final report pending Repeat blood cultures sent on 12/30 NGTD - f/u culture reports- patient to receive 2 weeks of iv micafungin from when the cultures became neg, will need PICC line for home iv abx therapy once cultures remain neg for 48 hours Assessment & Plan (12/30/2024 4:26 PM CDT): -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 12/04/2024 - replaced with 22Fr [address] way mcclelland catheter; irrigation 30cc bid - 12/24 Tmax=38.7, WBC=7.79k-check cultures-pending, viral swab(-) - 12/25 Tmax=39.2, hemodynamically stable, per ID monitor and hold on empiric IV abx, monitor-BCx's (+) for ruddy albicans-start micafungin - 12/26 ECHO with no vegetations - 12/27 (-) exam per ophtha for ocular fungemia-will ask for peripheral IV-BCx x 1 sent - 12/28 PICC line pulled, repeat BCx sent, 12/27 BC with staph epi-likely contaminant 12/28- NGTD (prelim) 12/29 - now with GPCs in clusters (pelim) - ID following, repeat blood cx 12/30 ordered - f/u culture reports- patient to receive 2 weeks of iv micafungin from when the cultures became neg, will need PICC line for home iv abx therapy once cultures remain neg for 48 hours Assessment & Plan (12/29/2024 10:35 AM CDT): -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 Antibiotics: Zosyn (11/05 - 11/18) Linezolid (10/31 - 11/18) Unasyn (11/01 - 11/05)Augmentin (10/30 - 10/31) Augmentin 875-125mg BID (11/18-) Tedizolid 200mg daily (11/18-) no end date or until surgery done - per CRS, no further plan for surgery this admission: plan to f/up in clinic - Contact precautions - 11/22, placed 16 Fr urinary catheter - should have been 22Fr - [facility]and indication: 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) - 12/04/2024 - replaced with 22Fr 3 way mcclelland catheter; irrigation 30cc bid - 12/13 Septic with fever 103F, tachycardic and hypotensive, suspect wound infection: Cefe , metronidazole extended duration (12/12-12/21), c/w Tedizolif (resume Augmentin 12/21) - pursue noncontrast (rising creatinine) CT chest/abd/pelvis ->severe hepatic steatosis - MRSE blood stream infection (Bc 12/13), likely contaminant, repeat blood cultures NGTD, low grade fever on 12/18: repeat Blood Cx NTD - appreciate ID recs Assessment & Plan (12/18/2024 3:25 PM CDT): -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, UA (10/30)- nitrite+, leuk esterase+, pyuria, bacteriuria+, Urine cx- contaminated- mixed krzysztof -CT A/P 10/30- no pyelonephritis, notable for acute on chronic diverticulitis, and 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 Antibiotics: Zosyn (11/05 - 11/18) Linezolid (10/31 - 11/18) Unasyn (11/01 - 11/05)Augmentin (10/30 - 10/31) Augmentin 875-125mg BID (11/18-) Tedizolid 200mg daily (11/18-) no end date or until surgery done - per CRS, no further plan for surgery this admission: plan to f/up in clinic - Contact precautions - 11/22, placed 16 Fr urinary catheter - should have been 22Fr - [facility] indication: 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 Antibiotics: Zosyn (11/05 - 11/18) Linezolid (10/31 - 11/18) Unasyn (11/01 - 11/05)Augmentin (10/30 - 10/31) Augmentin 875-125mg BID (11/18-) Tedizolid 200mg daily (11/18-) no end date or until surgery done - per CRS, no further plan for surgery this admission: plan to f/up in clinic - Contact precautions - 11/22, placed 16 Fr urinary catheter - should have been 22Fr - [facility] indication: 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) - 12/04/2024 - replaced with 22Fr 3 way mcclelland catheter; irrigation 30cc bid - 12/13 Septic with fever 103F, tachycardic and hypotensive, suspect wound infection: Cefe , metronidazole(12/12-), c/w Tedizolif (resume Augmentin on 12/19) - pursue noncontrast (rising creatinine) CT chest/abd/pelvis ->severe hepatic steatosis - MRSE blood stream infection (Bc 12/13), likely contaminant, repeat blood cultures NGTD - appreciate ID recs Assessment & Plan (12/16/2024 2:46 PM CDT): -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, UA (10/30)- nitrite+, leuk esterase+, pyuria, bacteriuria+, Urine cx- contaminated- mixed krzysztof -CT A/P 10/30- no pyelonephritis, notable for acute on chronic diverticulitis, and 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 Antibiotics: Zosyn (11/05 - 11/18) Linezolid (10/31 - 11/18) Unasyn (11/01 - 11/05)Augmentin (10/30 - 10/31) Augmentin 875-125mg BID (11/18-) Tedizolid 200mg daily (11/18-) no end date or until surgery done - per CRS, no further plan for surgery this admission: plan to f/up in clinic - Contact precautions - 11/22, placed 16 Fr urinary catheter - should have been 22Fr - [facility] indication: 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) - 12/04/2024 - replaced with 22Fr [address] mcclelland catheter; irrigation 30cc bid - 12/13 Septic with fever 103F, tachycardic and hypotensive, suspect wound infection: Cefe , metronidazole(12/12-), c/w Tedizolif (resume Augmentin on 12/19) - pursue noncontrast (rising creatinine) CT chest/abd/pelvis ->severe hepatic steatosis - MRSE blood stream infection (Bc 12/13), likely contaminant, repeat blood cultures NGTD - appreciate ID recs Assessment & Plan (12/15/2024 12:46 PM CDT): -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, UA (10/30)- nitrite+, leuk esterase+, pyuria, bacteriuria+, Urine cx- contaminated- mixed krzysztof -CT A/P 10/30- no pyelonephritis, notable for acute on chronic diverticulitis, and 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 Antibiotics: Zosyn (11/05 - 11/18) Linezolid (10/31 - 11/18) Unasyn (11/01 - 11/05)Augmentin (10/30 - 10/31) Augmentin 875-125mg BID (11/18-) Tedizolid 200mg daily (11/18-) no end date or until surgery done - per CRS, no further plan for surgery this admission: plan to f/up in clinic - Contact precautions - 11/22, placed 16 Fr urinary catheter - should have been 22Fr - [facility] indication: 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) - 12/04/2024 - replaced with 22Fr 3 way mcclelland catheter; irrigation 30cc bid - 12/13 Septic with fever 103F, tachycardic and hypotensive, suspect wound infection, r/o worsening IA infection, has line in place r/o line infection, work-up sent, LR bolus x 2 liters, start Dapto and Cefe (hold Augmentin and Tedizolif) - Add Flagyl given LFT elevation concern for biliary infection, pursue noncontrast (rising creatinine) CT chest/abd/pelvis ->severe hepatic steatosis - MRSE blood stream infection (Bc 12/13), hopefully contaminant, repeat blood cultures NGTD - Anticipate ID for more recommendations Assessment & Plan (12/14/2024 10:58 AM CDT): -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, UA (10/30)- nitrite+, leuk esterase+, pyuria, bacteriuria+, Urine cx- contaminated- mixed krzysztof -CT A/P 10/30- no pyelonephritis, notable for acute on chronic diverticulitis, and 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 Antibiotics: Zosyn (11/05 - 11/18) Linezolid (10/31 - 11/18) Unasyn (11/01 - 11/05)Augmentin (10/30 - 10/31) Augmentin 875-125mg BID (11/18-) Tedizolid 200mg daily (11/18-) no end date or until surgery done - per CRS, no further plan for surgery this admission: plan to f/up in clinic - Contact precautions - 11/22, placed 16 Fr urinary catheter - should have been 22Fr - [facility] indication: 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) - 12/04/2024 - replaced with 22Fr [address] mcclelland catheter; irrigation 30cc bid - 12/13 Septic with fever 103F, tachycardic and hypotensive, suspect wound infection, r/o worsening IA infection, has line in place r/o line infection, work-up sent, LR bolus x 2 liters, start Dapto and Cefe (hold Augmentin and Tedizolif) - Add Flagyl given LFT elevation concern for biliary infection, pursue noncontrast (rising creatinine) CT chest/abd/pelvis, consider RUQ ultrasound - MRSE blood stream infection (Bc 12/13), hopefully contaminant, repeat blood cultures Assessment & Plan (12/14/2024 10:59 AM CDT): -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, UA (10/30)- nitrite+, leuk esterase+, pyuria, bacteriuria+, Urine cx- contaminated- mixed krzysztof -CT A/P 10/30- no pyelonephritis, notable for acute on chronic diverticulitis, and 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 Antibiotics: Zosyn (11/05 - 11/18) Linezolid (10/31 - 11/18) Unasyn (11/01 - 11/05)Augmentin (10/30 - 10/31) Augmentin 875-125mg BID (11/18-) Tedizolid 200mg daily (11/18-) no end date or until surgery done - per CRS, no further plan for surgery this admission: plan to f/up in clinic - Contact precautions - 11/22, placed 16 Fr urinary catheter - should have been 22Fr - [facility] indication: 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) - 12/04/2024 - replaced with 22Fr 3 way mcclelland catheter; irrigation 30cc bid - 12/13 Septic with fever 103F, tachycardic and hypotensive, suspect wound infection, r/o worsening IA infection, has line in place r/o line infection, work-up sent, LR bolus x 2 liters, start Dapto and Cefe (hold Augmentin and Tedizolif) Assessment & Plan (12/12/2024 2:48 PM CDT): -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, UA (10/30)- nitrite+, leuk esterase+, pyuria, bacteriuria+, Urine cx- contaminated- mixed krzysztof -CT A/P 10/30- no pyelonephritis, notable for acute on chronic diverticulitis, and 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 Antibiotics: Zosyn (11/05 - 11/18) Linezolid (10/31 - 11/18) Unasyn (11/01 - 11/05)Augmentin (10/30 - 10/31) Augmentin 875-125mg BID (11/18-) Tedizolid 200mg daily (11/18-) no end date or until surgery done - per CRS, no further plan for surgery this admission: plan to f/up in clinic - Contact precautions - 11/22, placed 16 Fr urinary catheter - should have been 22Fr - [facility] indication: 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) - 12/04/2024 - replaced with 22Fr [address] mcclelland catheter; irrigation 30cc bid Assessment & Plan (12/11/2024 8:52 PM CDT): -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, UA (10/30)- nitrite+, leuk esterase+, pyuria, bacteriuria+, Urine cx- contaminated- mixed krzysztof -CT A/P 10/30- no pyelonephritis, notable for acute on chronic diverticulitis, and 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 Antibiotics: Zosyn (11/05 - 11/18) Linezolid (10/31 - 11/18) Unasyn (11/01 - 11/05)Augmentin (10/30 - 10/31) Augmentin 875-125mg BID (11/18-) Tedizolid 200mg daily (11/18-) no end date or until surgery done - per CRS, no further plan for surgery this admission: plan to f/up in clinic - Contact precautions - 11/22, placed 16 Fr urinary catheter - should have been 22Fr - [facility] indication: 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) - 12/04/2024 - replaced with 22Fr [address] mcclelland catheter; irrigation 30cc bid Assessment & Plan (12/10/2024 8:41 AM CDT): -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, UA (10/30)- nitrite+, leuk esterase+, pyuria, bacteriuria+, Urine cx- contaminated- mixed krzysztof -CT A/P 10/30- no pyelonephritis, notable for acute on chronic diverticulitis, and 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 Antibiotics: Zosyn (11/05 - 11/18) Linezolid (10/31 - 11/18) Unasyn (11/01 - 11/05)Augmentin (10/30 - 10/31) Augmentin 875-125mg BID (11/18-) Tedizolid 200mg daily (11/18-) - per CRS, no further plan for surgery this admission: plan to f/up in clinic - Contact precautions - 11/22, placed 16 Fr urinary catheter - should have been 22Fr - [facility] indication: 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) - 12/04/2024 - replaced with 22Fr [address] mcclelland catheter; irrigation 30cc bid Assessment & Plan (12/09/2024 8:35 AM CDT): -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, UA (10/30)- nitrite+, leuk esterase+, pyuria, bacteriuria+, Urine cx- contaminated- mixed krzysztof -CT A/P 10/30- no pyelonephritis, notable for acute on chronic diverticulitis, and 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 Antibiotics: Zosyn (11/05 - 11/18) Linezolid (10/31 - 11/18) Unasyn (11/01 - 11/05)Augmentin (10/30 - 10/31) Augmentin 875-125mg BID (11/18-) Tedizolid 200mg daily (11/18-) - per CRS, no further plan for surgery this admission: plan to f/up in clinic - Contact precautions - 11/22, placed 16 Fr urinary catheter - should have been 22Fr - [facility] indication: 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) - 12/04/2024 - replaced with 22Fr [address] mcclelland catheter; irrigation 30cc bid Assessment & Plan (12/08/2024 2:09 PM CDT): -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, UA (10/30)- nitrite+, leuk esterase+, pyuria, bacteriuria+, Urine cx- contaminated- mixed krzysztof -CT A/P 10/30- no pyelonephritis, notable for acute on chronic diverticulitis, and 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 Antibiotics: Zosyn (11/05 - 11/18) Linezolid (10/31 - 11/18) Unasyn (11/01 - 11/05)Augmentin (10/30 - 10/31) Augmentin 875-125mg BID (11/18-) Tedizolid 200mg daily (11/18-) - per CRS, no further plan for surgery this admission: plan to f/up in clinic - Contact precautions - 11/22, placed 16 Fr urinary catheter - should have been 22Fr - [facility] indication: 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) - 12/04/2024 - replaced with 22Fr [address] way mcclelland catheter; irrigation 30cc bid Assessment & Plan (12/07/2024 1:18 PM CDT): -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, UA (10/30)- nitrite+, leuk esterase+, pyuria, bacteriuria+, Urine cx- contaminated- mixed krzysztof -CT A/P 10/30- no pyelonephritis, notable for acute on chronic diverticulitis, and 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 Antibiotics: Zosyn (11/05 - 11/18) Linezolid (10/31 - 11/18) Unasyn (11/01 - 11/05)Augmentin (10/30 - 10/31) Augmentin 875-125mg BID (11/18-) Tedizolid 200mg daily (11/18-) - per CRS, no further plan for surgery this admission: plan to f/up in clinic - Contact precautions - 11/22, placed 16 Fr urinary catheter - should have been 22Fr - [facility] indication: 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) - 12/04/2024 - replaced with 22Fr [address] way mcclelland catheter; irrigation 30cc bid Assessment & Plan (12/06/2024 2:19 PM CDT): -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, UA (10/30)- nitrite+, leuk esterase+, pyuria, bacteriuria+, Urine cx- contaminated- mixed krzysztof -CT A/P 10/30- no pyelonephritis, notable for acute on chronic diverticulitis, and 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 Antibiotics: Zosyn (11/05 - 11/18) Linezolid (10/31 - 11/18) Unasyn (11/01 - 11/05)Augmentin (10/30 - 10/31) Augmentin 875-125mg BID (11/18-) Tedizolid 200mg daily (11/18-) - per CRS, no further plan for surgery this admission: plan to f/up in clinic - Contact precautions - 11/22, placed 16 Fr urinary catheter - should have been 22Fr - Mcclelland indication: 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) - 12/04/2024 - replaced with 22Fr 3 way mcclelland catheter; irrigation 30cc bid Assessment & Plan (12/05/2024 4:47 PM CDT): -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, UA (10/30)- nitrite+, leuk esterase+, pyuria, bacteriuria+, Urine cx- contaminated- mixed krzysztof -CT A/P 10/30- no pyelonephritis, notable for acute on chronic diverticulitis, and 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 Antibiotics: Zosyn (11/05 - 11/18) Linezolid (10/31 - 11/18) Unasyn (11/01 - 11/05)Augmentin (10/30 - 10/31) Augmentin 875-125mg BID (11/18-) Tedizolid 200mg daily (11/18-) - per CRS, no further plan for surgery this admission: plan to f/up in clinic - Contact precautions - 11/22, placed 16 Fr urinary catheter - should have been 22Fr - Mcclelland indication: 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) - 12/04/2024 - replaced with 22Fr 3 way mcclelland catheter; irrigation 30cc bid Assessment & Plan (12/04/2024 2:08 PM CDT): -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, UA (10/30)- nitrite+, leuk esterase+, pyuria, bacteriuria+, Urine cx- contaminated- mixed krzysztof -CT A/P 10/30- no pyelonephritis, notable for acute on chronic diverticulitis, and 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 Antibiotics: Zosyn (11/05 - 11/18) Linezolid (10/31 - 11/18) Unasyn (11/01 - 11/05)Augmentin (10/30 - 10/31) Augmentin 875-125mg BID (11/18-) Tedizolid 200mg daily (11/18-) - per CRS, no further plan for surgery this admission: plan to f/up in clinic - Contact precautions - 11/22, placed 16 Fr urinary catheter - should have been 22Fr - Mcclelland indication: 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) - 12/04/2024 - replaced with 22Fr 3 way mcclelland catheter; irrigation 30cc bid Assessment & Plan (12/03/2024 6:06 PM CDT): -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, UA (10/30)- nitrite+, leuk esterase+, pyuria, bacteriuria+, Urine cx- contaminated- mixed krzysztof -CT A/P 10/30- no pyelonephritis, notable for acute on chronic diverticulitis, and 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 Antibiotics: Zosyn (11/05 - 11/18) Linezolid (10/31 - 11/18) Unasyn (11/01 - 11/05)Augmentin (10/30 - 10/31) Augmentin 875-125mg BID (11/18-) Tedizolid 200mg daily (11/18-) - per CRS, no further plan for surgery this admission: plan to f/up in clinic - Contact precautions - 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 -replaced on 11/22 05/25 to crack Assessment & Plan (12/02/2024 2:26 PM CDT): -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, UA (10/30)- nitrite+, leuk esterase+, pyuria, bacteriuria+, Urine cx- contaminated- mixed krzysztof -CT A/P 10/30- no pyelonephritis, notable for acute on chronic diverticulitis, and 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 Antibiotics: Zosyn (11/05 - 11/18) Linezolid (10/31 - 11/18) Unasyn (11/01 - 11/05)Augmentin (10/30 - 10/31) Augmentin 875-125mg BID (11/18-) Tedizolid 200mg daily (11/18-) - per CRS, no further plan for surgery this admission: plan to f/up in clinic - Contact precautions - 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 -replaced on 11/22 05/25 to crack Assessment & Plan (12/01/2024 9:54 AM CDT): -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, UA (10/30)- nitrite+, leuk esterase+, pyuria, bacteriuria+, Urine cx- contaminated- mixed krzysztof -CT A/P 10/30- no pyelonephritis, notable for acute on chronic diverticulitis, and 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 Antibiotics: Zosyn (11/05 - 11/18) Linezolid (10/31 - 11/18) Unasyn (11/01 - 11/05)Augmentin (10/30 - 10/31) Augmentin 875-125mg BID (11/18-) Tedizolid 200mg daily (11/18-) - per CRS, no further plan for surgery this admission: plan to f/up in clinic - Contact precautions - 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 -replaced on 11/22 05/25 to crack Assessment & Plan (11/30/2024 1:01 PM CDT): -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, UA (10/30)- nitrite+, leuk esterase+, pyuria, bacteriuria+, Urine cx- contaminated- mixed krzysztof -CT A/P 10/30- no pyelonephritis, notable for acute on chronic diverticulitis, and 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 Antibiotics: Zosyn (11/05 - 11/18) Linezolid (10/31 - 11/18) Unasyn (11/01 - 11/05)Augmentin (10/30 - 10/31) Augmentin 875-125mg BID (11/18-) Tedizolid 200mg daily (11/18-) - per CRS, no further plan for surgery this admission: plan to f/up in clinic - Contact precautions - 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 -replaced on 11/22 05/25 to crack Assessment & Plan (11/29/2024 11:20 AM CDT): -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, UA (10/30)- nitrite+, leuk esterase+, pyuria, bacteriuria+, Urine cx- contaminated- mixed krzysztof -CT A/P 10/30- no pyelonephritis, notable for acute on chronic diverticulitis, and 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 Antibiotics: Zosyn (11/05 - 11/18) Linezolid (10/31 - 11/18) Unasyn (11/01 - 11/05)Augmentin (10/30 - 10/31) Augmentin 875-125mg BID (11/18-) Tedizolid 200mg daily (11/18-) - per CRS, no further plan for surgery this admission: plan to f/up in clinic - Contact precautions - 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 -replaced on 11/22 05/25 to crack Assessment & Plan (11/28/2024 1:42 PM CDT): -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, UA (10/30)- nitrite+, leuk esterase+, pyuria, bacteriuria+, Urine cx- contaminated- mixed krzysztof -CT A/P 10/30- no pyelonephritis, notable for acute on chronic diverticulitis, and 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 Antibiotics: Zosyn (11/05 - 11/18) Linezolid (10/31 - 11/18) Unasyn (11/01 - 11/05)Augmentin (10/30 - 10/31) Augmentin 875-125mg BID (11/18-) Tedizolid 200mg daily (11/18-) - per CRS, no further plan for surgery this admission: plan to f/up in clinic - Contact precautions - 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 -replaced on 11/22 05/25 to crack Assessment & Plan (11/27/2024 10:16 AM CDT): -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, UA (10/30)- nitrite+, leuk esterase+, pyuria, bacteriuria+, Urine cx- contaminated- mixed krzysztof -CT A/P 10/30- no pyelonephritis, notable for acute on chronic diverticulitis, and 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 Antibiotics: Zosyn (11/05 - 11/18) Linezolid (10/31 - 11/18) Unasyn (11/01 - 11/05)Augmentin (10/30 - 10/31) Augmentin 875-125mg BID (11/18-) Tedizolid 200mg daily (11/18-) - per CRS, no further plan for surgery this admission: plan to f/up in clinic - Contact precautions - 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 -replaced on 11/22 05/25 to crack Assessment & Plan (11/26/2024 12:13 PM CDT): -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, UA (10/30)- nitrite+, leuk esterase+, pyuria, bacteriuria+, Urine cx- contaminated- mixed krzysztof -CT A/P 10/30- no pyelonephritis, notable for acute on chronic diverticulitis, and 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 Antibiotics: Zosyn (11/05 - 11/18) Linezolid (10/31 - 11/18) Unasyn (11/01 - 11/05)Augmentin (10/30 - 10/31) Augmentin 875-125mg BID (11/18-) Tedizolid 200mg daily (11/18-) - per CRS, no further plan for surgery this admission: plan to f/up in clinic - Contact precautions - 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 -replaced on 11/22 05/25 to crack Assessment & Plan (11/25/2024 3:35 PM CDT): -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, UA (10/30)- nitrite+, leuk esterase+, pyuria, bacteriuria+, Urine cx- contaminated- mixed krzysztof -CT A/P 10/30- no pyelonephritis, notable for acute on chronic diverticulitis, and 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 Antibiotics: Zosyn (11/05 - 11/18) Linezolid (10/31 - 11/18) Unasyn (11/01 - 11/05)Augmentin (10/30 - 10/31) Augmentin 875-125mg BID (11/18-) Tedizolid 200mg daily (11/18-) - per CRS, no further plan for surgery this admission: plan to f/up in clinic - Contact precautions - 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 -replaced on 11/22 05/25 to crack Assessment & Plan (11/24/2024 11:40 PM CDT): 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 UA (10/30)- nitrite+, leuk esterase+, pyuria, bacteriuria+ Urine cx- contaminated- mixed krzysztof CT A/P 10/30- no pyelonephritis , notable for acute on chronic diverticulitis, and 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 Antibiotics: Zosyn (11/05 - 11/18) Linezolid (10/31 - 11/18) Unasyn (11/01 - 11/05) Augmentin (10/30 - 10/31) Augmentin 875-125mg BID (11/18-) Tedizolid 200mg daily (11/18-) f/u ID recs for antibiotic duration- switched back to PO abx - per CRS, no further plan for surgery this admission: plan to f/up in clinic - Contact precautions - 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 -replaced on 11/22 05/25 to crack Assessment & Plan (11/23/2024 8:59 PM CDT): 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 UA (10/30)- nitrite+, leuk esterase+, pyuria, bacteriuria+ Urine cx- contaminated- mixed krzysztof CT A/P 10/30- no pyelonephritis , notable for acute on chronic diverticulitis, and 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 Antibiotics: Zosyn (11/05 - 11/18) Linezolid (10/31 - 11/18) Unasyn (11/01 - 11/05) Augmentin (10/30 - 10/31) Augmentin 875-125mg BID (11/18-) Tedizolid 200mg daily (11/18-) - f/u ID recs for antibiotic duration- switched back to PO abx - per CRS, no further plan for surgery this admission: plan to f/up in clinic - Contact precautions - 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 -replaced on 11/22 05/25 to crack Assessment & Plan (11/22/2024 7:23 PM CDT): 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 UA (10/30)- nitrite+, leuk esterase+, pyuria, bacteriuria+ Urine cx- contaminated- mixed krzysztof CT A/P 10/30- no pyelonephritis , notable for acute on chronic diverticulitis, and 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 Antibiotics: Zosyn (11/05 - 11/18) Linezolid (10/31 - 11/18) Unasyn (11/01 - 11/05) Augmentin (10/30 - 10/31) Augmentin 875-125mg BID (11/18-) Tedizolid 200mg daily (11/18-) - f/u ID recs for antibiotic duration- switched back to PO abx - per CRS, no further plan for sx this admission - Contact precautions - 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 -replaced on 11/22 05/25 to crack Assessment & Plan (11/21/2024 3:52 PM CDT): 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 UA (10/30)- nitrite+, leuk esterase+, pyuria, bacteriuria+ Urine cx- contaminated- mixed krzysztof CT A/P 10/30- no pyelonephritis , notable for acute on chronic diverticulitis, and 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 Antibiotics: Zosyn (11/05 - 11/18) Linezolid (10/31 - 11/18) Unasyn (11/01 - 11/05) Augmentin (10/30 - 10/31) Augmentin 875-125mg BID (11/18-) Tedizolid 200mg daily (11/18-) - f/u ID recs for antibiotic duration- switched back to PO abx - per CRS, no further plan for sx this admission - Contact precautions - 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 Assessment & Plan (11/20/2024 3:42 PM CDT): 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 UA (10/30)- nitrite+, leuk esterase+, pyuria, bacteriuria+ Urine cx- contaminated- mixed krzysztof CT A/P 10/30- no pyelonephritis , notable for acute on chronic diverticulitis, and 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 Antibiotics: Zosyn (11/05 - 11/18) Linezolid (10/31 - 11/18) Unasyn (11/01 - 11/05) Augmentin (10/30 - 10/31) Augmentin 875-125mg BID (11/18-) Tedizolid 200mg daily (11/18-) - f/u ID recs for antibiotic duration- switched back to PO medications today - per CRS, no further plan for sx this admission - Contact precautions - Will try void trial when ready Assessment & Plan (11/18/2024 6:00 PM CDT): 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 UA (10/30)- nitrite+, leuk esterase+, pyuria, bacteriuria+ Urine cx- contaminated- mixed krzysztof CT A/P 10/30- no pyelonephritis , notable for acute on chronic diverticulitis, and 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 She has since had her trach changed with ENT 11/21, some granulation tissue and superficial irritation noted, otherwise healing very well. She was able to phonate around the Jermaine 4 trach even while it was not occluded. She has been doing well with capping trials during the day. She had trach changed to Shiley 5 proximal xl on 11/24 after Jermaine 4 regular was dislodged and has had some discomfort/coughing since. Pt has not had a sleeps study but suspect underlying ADOLFO/OHS which will need to monitor for after anticipated trach decannulation. Her CO2 was stable after 24 hrs capping. She continued to be capped now for >48 hrs and was thus decannulated 11/27 after discussions with surgery and anesthesia confirming that she no longer requires tracheostomy. Recommendations: S/p decannulation 11/27 and doing well May benefit from outpatient sleep referral to assess for ADOLFO/OHS given her body habitus, morning CO2 during capping trial was normal Assessment & Plan (11/27/2024 10:31 AM CDT): 44 yr old F with recurrent diverticulitis c/b colovesicular fistula, nephrolithiasis s/p lithotripsy and ureteral stent who was initially admitted with suspected urologic infection who was brought to the OR 11/11 and experience cardiac arrest 2/2 difficult intubation leading to emergent cricothyroidotomy followed by tracheostomy placement. Pulmonology was consulted to assist in wean of her trach in the setting of coughing and blood tinged secretions when trying her Pass[place] valve. She has since had her trach changed with ENT 11/21, some granulation tissue and superficial irritation noted, otherwise healing very well. She was able to phonate around the Jermaine 4 trach even while it was not occluded. She has been doing well with capping trials during the day. She had trach changed to Shiley 5 proximal xl on 11/24 after Jermaine 4 regular was dislodged and has had some discomfort/coughing since. Pt has not had a sleeps study but suspect underlying ADOLFO/OHS which will need to monitor for after anticipated trach decannulation. Recommendations: Capping trial 24 hrs with blood gas in the AM CXR to see where new trach is sitting - investigating the cause of her irritation Trial lidocaine neb to suppress cough w new trach 44 yr old F with recurrent diverticulitis c/b colovesicular fistula, nephrolithiasis s/p lithotripsy and ureteral stent who was initially admitted with suspected urologic infection who was brought to the OR 11/11 and experience cardiac arrest 2/2 difficult intubation leading to emergent cricothyroidotomy followed by tracheostomy placement. Pulmonology was consulted to assist in wean of her trach in the setting of coughing and blood tinged secretions when trying her Pass[place] valve. She has since had her trach changed with ENT 11/21, some granulation tissue and superficial irritation noted, otherwise healing very well. She was able to phonate around the Jermaine 4 trach even while it was not occluded. She has been doing well with capping trials during the day. She had trach changed to Shiley 5 proximal xl on 11/24 after Jermaine 4 regular was dislodged and has had some discomfort/coughing since. Pt has not had a sleeps study but suspect underlying ADOLFO/OHS which will need to monitor for after anticipated trach decannulation. Her CO2 was stable after 24 hrs capping. She continues to be capped now for >48 hrs. Recommendations: Capping trial x 48 and tolerating well with stable CO2 Trial lidocaine neb to suppress cough w new trach - can continue prn lidocaine neb if experiencing coughing Would clarify with surgery if she will be having her surgery completed soon. If so, would then discuss with anesthesia if better to leave trach in place given difficulty with obtaining airway at time of prior surgery attempt. Assessment & Plan (11/25/2024 10:57 AM CDT): 44 yr old F with recurrent diverticulitis c/b colovesicular fistula, nephrolithiasis s/p lithotripsy and ureteral stent who was initially admitted with suspected urologic infection who was brought to the OR 11/11 and experience cardiac arrest 2/2 difficult intubation leading to emergent cricothyroidotomy followed by tracheostomy placement. Pulmonology was consulted to assist in wean of her trach in the setting of coughing and blood tinged secretions when trying her Pass[place] valve. She has since had her trach changed with ENT 11/21, some granulation tissue and superficial irritation noted, otherwise healing very well. She was able to phonate around the Jermaine 4 trach even while it was not occluded. She has been doing well with capping trials during the day. She had trach changed to Shiley 5 proximal xl on 11/24 after Jermaine 4 regular was dislodged and has had some discomfort/coughing since. Pt has not had a sleeps study but suspect underlying ADOLFO/OHS which will need to monitor for after anticipated trach decannulation. Recommendations: Capping trial 24 hrs with blood gas in the AM CXR to see where new trach is sitting - investigating the cause of her irritation Trial lidocaine neb to suppress cough w new trach Assessment & Plan (11/24/2024 10:40 AM CDT): 44 yr old F with recurrent diverticulitis c/b colovesicular fistula, nephrolithiasis s/p lithotripsy and ureteral stent who was initially admitted with suspected urologic infection who was brought to the OR 11/11 and experience cardiac arrest 2/2 difficult intubation leading to emergent cricothyroidotomy followed by tracheostomy placement. Pulmonology was consulted to assist in wean of her trach in the setting of coughing when trying her Passy Liliana valve. The patient reports that she has been struggling with a cough when she attempts to trial the Pass[place] valve with speech. At the bedside the patient was able to phonate with the trach in place without occluding the opening. The patient was able to do this without coughing a did not have significant secretions. Patient does report that when she does cough sometimes her secretions are blood-tinged. Trach change performed with ENT 11/21, some granulation tissue and superficial irritation noted, otherwise healing very well. She was able to phonate around the Jermaine 4 trach even while it was not occluded. We did trial occluding the trach which was she was able to phonate well and was clinically stable. Anticipate she may continue to have some blood-tinged secretions as her trach continues to heal. Reported she is doing well w PMV trials. She is now in PPCU. Recommendations: Trach exchanged for 4 Jermaine 11/21 Proceed with capping trials during the day, trach collar at night 44 yr old F with recurrent diverticulitis c/b colovesicular fistula, nephrolithiasis s/p lithotripsy and ureteral stent who was initially admitted with suspected urologic infection who was brought to the OR 11/11 and experience cardiac arrest 2/2 difficult intubation leading to emergent cricothyroidotomy followed by tracheostomy placement. Pulmonology was consulted to assist in wean of her trach in the setting of coughing when trying her Pass[place] valve. The patient reports that she has been struggling with a cough when she attempts to trial the Passy Lil[place] valve with speech. At the bedside the patient was able to phonate with the trach in place without occluding the opening. The patient was able to do this without coughing a did not have significant secretions. Patient does report that when she does cough sometimes her secretions are blood-tinged. Trach change performed with ENT 11/21, some granulation tissue and superficial irritation noted, otherwise healing very well. She was able to phonate around the Jermaine 4 trach even while it was not occluded. We did trial occluding the trach which was she was able to phonate well and was clinically stable. Anticipate she may continue to have some blood-tinged secretions as her trach continues to heal. Reported she is doing well w PMV trials. She is now in PPCU. Recommendations: Trach exchanged for 4 Jermaine 11/21 Patient had some anxiety with trach capping on 11/22. However tolerating it today. Would cap trach during the day and use high humidity trach collar at night. Can consider 24 hr capping trial tomorrow. Assessment & Plan (11/22/2024 3:00 PM CDT): 44 yr old F with recurrent diverticulitis c/b colovesicular fistula, nephrolithiasis s/p lithotripsy and ureteral stent who was initially admitted with suspected urologic infection who was brought to the OR 11/11 and experience cardiac arrest 2/2 difficult intubation leading to emergent cricothyroidotomy followed by tracheostomy placement. Pulmonology was consulted to assist in wean of her trach in the setting of coughing when trying her Pass[place] valve. The patient reports that she has been struggling with a cough when she attempts to trial the Pass[place] valve with speech. At the bedside the patient was able to phonate with the trach in place without occluding the opening. The patient was able to do this without coughing a did not have significant secretions. Patient does report that when she does cough sometimes her secretions are blood-tinged. Trach change performed with ENT 11/21, some granulation tissue and superficial irritation noted, otherwise healing very well. She was able to phonate around the Jermaine 4 trach even while it was not occluded. We did trial occluding the trach which was she was able to phonate well and was clinically stable. Anticipate she may continue to have some blood-tinged secretions as her trach continues to heal. Reported she is doing well w PMV trials. She is now in PPCU. Recommendations: Trach exchanged for 4 Jermaine 11/21 Proceed with capping trials during the day, trach collar at night Assessment & Plan (11/21/2024 6:34 PM CDT): 44 yr old F with recurrent diverticulitis c/b colovesicular fistula, nephrolithiasis s/p lithotripsy and ureteral stent who was initially admitted with suspected urologic infection who was brought to the OR 11/11 and experience cardiac arrest 2/2 difficult intubation leading to emergent cricothyroidotomy followed by tracheostomy placement. Pulmonology was consulted to assist in wean of her trach in the setting of coughing when trying her Passy [place] valve. The patient reports that she has been struggling with a cough when she attempts to trial the Passy [place] valve with speech. At the bedside the patient was able to phonate with the trach in place without occluding the opening. The patient was able to do this without coughing a did not have significant secretions. Patient does report that when she does cough sometimes her secretions are blood-tinged. Trach change performed with ENT, some granulation tissue and superficial irritation noted, otherwise healing very well. She was able to phonate around the Jermaine 4 trach even while it was not occluded. We did trial occluding the trach which was she was able to phonate well and was clinically stable. Anticipate she may continue to have some blood-tinged secretions as her trach continues to heal. Recommendations: Trach exchanged for 4 Jermaine Continue PMV trials, can proceed with capping as tolerated. If she has coughing with PMV and is otherwise well appearing can try capping as opposed to PMV as we anticipate she will do well with capping trials. Agree with the PPCU consult Assessment & Plan (11/20/2024 4:32 PM CDT): 44 yr old F with recurrent diverticulitis c/b colovesicular fistula, nephrolithiasis s/p lithotripsy and ureteral stent who was initially admitted with suspected urologic infection who was brought to the OR 11/11 and experience cardiac arrest 2/2 difficult intubation leading to emergent cricothyroidotomy followed by tracheostomy placement. Pulmonology was consulted to assist in wean of her trach in the setting of coughing when trying her Passy [place] valve. The patient reports that she has been struggling with a cough when she attempts to trial the Passy [place] valve with speech. At the bedside the patient was able to phonate with the trach in place without occluding the opening. The patient was able to do this without coughing a did not have significant secretions. Patient does report that when she does cough sometimes her secretions are blood-tinged. Overall suspect that she could have some granulation tissue causing her irritation and bleeding which could be evaluated with ENT. Also she could be evaluated for downsizing her trach with ENT as well. Agree with PPCU consult in the meantime. Recommendations: Touch base with ENT regarding blood-tinged secretions to see if her airway can be evaluated and if she can downsize her trach for comfort Agree with the PPCU consult On total parenteral nutrition (TPN) 11/18/2024 Assessment & Plan (01/03/2025 6:12 PM CDT): Multiple prior admissions- last discharged on 10/22/24 with plans for o/p colonoscopy on suppressive antibiotics. Colonoscopy this admission (11/03) with evidence of extrinsic compression, no fistula appreciated, unable to intubate cecal base. Was scheduled for exploratory laparotomy, takedown of colovesical fistula, sigmoidectomy, and possible colostomy and preoperative stent placement. The procedure was aborted due to cardiac arrest during intubation-lost airway visualization 2/2 bleeding and needed emergency cric. - Too sick and debilitated to proceed with surgery inpatient per multiple discussion with CRS; discussions been made with patient and - Continue TPN, antibiotics as noted above - Call and notify CRS when closer to [place] so can make clinic appointment - CT abdomen noncontrast 12/14: Severe hepatic steatosis. acute component of diverticulitis and additional area of fistulization to the sigmoid colon on series 3 image 236; colorectal surgery notified --> NO change in plan. S/p Cefe, metronidazole (12/12-12/21) - DC TPN 12/26 with fungal infection. Discussed with CRS. Can resume oral diet as no planned surgery at this time Assessment & Plan (01/02/2025 7:31 PM CDT): Multiple prior admissions- last discharged on 10/22/24 with plans for o/p colonoscopy on suppressive antibiotics. Colonoscopy this admission (11/03) with evidence of extrinsic compression, no fistula appreciated, unable to intubate cecal base. Was scheduled for exploratory laparotomy, takedown of colovesical fistula, sigmoidectomy, and possible colostomy and preoperative stent placement. The procedure was aborted due to cardiac arrest during intubation-lost airway visualization 2/2 bleeding and needed emergency cric. - Too sick and debilitated to proceed with surgery inpatient per multiple discussion with CRS; discussions been made with patient and - Continue TPN, antibiotics as noted above - Call and notify CRS when closer to [place] so can make clinic appointment - CT abdomen noncontrast 12/14: Severe hepatic steatosis. acute component of diverticulitis and additional area of fistulization to the sigmoid colon on series 3 image 236; colorectal surgery notified --> NO change in plan. S/p Cefe, metronidazole (12/12-12/21) - DC TPN 9/ with fungal infection. Discussed with CRS. Can resume oral diet as no planned surgery at this time Assessment & Plan (01/01/2025 6:42 PM CDT): Multiple prior admissions- last discharged on 10/22/24 with plans for o/p colonoscopy on suppressive antibiotics. Colonoscopy this admission (11/03) with evidence of extrinsic compression, no fistula appreciated, unable to intubate cecal base. Was scheduled for exploratory laparotomy, takedown of colovesical fistula, sigmoidectomy, and possible colostomy and preoperative stent placement. The procedure was aborted due to cardiac arrest during intubation-lost airway visualization 2/2 bleeding and needed emergency cric. - Too sick and debilitated to proceed with surgery inpatient per multiple discussion with CRS; discussions been made with patient and - Continue TPN, antibiotics as noted above - Call and notify CRS when closer to [place] so can make clinic appointment - CT abdomen noncontrast 12/14: Severe hepatic steatosis. acute component of diverticulitis and additional area of fistulization to the sigmoid colon on series 3 image 236; colorectal surgery notified --> NO change in plan. S/p Cefe, metronidazole (12/12-12/21) - DC TPN 9/5 with fungal infection. Discussed with CRS. Can resume oral diet as no planned surgery at this time Assessment & Plan (12/31/2024 6:52 PM CDT): Multiple prior admissions- last discharged on 10/22/24 with plans for o/p colonoscopy on suppressive antibiotics. Colonoscopy this admission (11/03) with evidence of extrinsic compression, no fistula appreciated, unable to intubate cecal base. Was scheduled for exploratory laparotomy, takedown of colovesical fistula, sigmoidectomy, and possible colostomy and preoperative stent placement. The procedure was aborted due to cardiac arrest during intubation-lost airway visualization 2/2 bleeding and needed emergency cric. - Too sick and debilitated to proceed with surgery inpatient per multiple discussion with CRS; discussions been made with patient and - Continue TPN, antibiotics as noted above - Call and notify CRS when closer to [place] so can make clinic appointment - CT abdomen noncontrast 12/14: Severe hepatic steatosis. acute component of diverticulitis and additional area of fistulization to the sigmoid colon on series 3 image 236; colorectal surgery notified --> NO change in plan. S/p Cefe, metronidazole (12/12-12/21) - DC TPN 9/ with fungal infection. Discussed with CRS. Can resume oral diet as no planned surgery at this time Assessment & Plan (12/30/2024 4:26 PM CDT): Multiple prior admissions- last discharged on 10/22/24 with plans for o/p colonoscopy on suppressive antibiotics. Colonoscopy this admission (11/03) with evidence of extrinsic compression, no fistula appreciated, unable to intubate cecal base. Was scheduled for exploratory laparotomy, takedown of colovesical fistula, sigmoidectomy, and possible colostomy and preoperative stent placement. The procedure was aborted due to cardiac arrest during intubation-lost airway visualization 2/2 bleeding and needed emergency cric. - Too sick and debilitated to proceed with surgery inpatient per multiple discussion with CRS; discussions been made with patient and - Continue TPN, antibiotics as noted above - Call and notify CRS when closer to [place] so can make clinic appointment - CT abdomen noncontrast 12/14: Severe hepatic steatosis. acute component of diverticulitis and additional area of fistulization to the sigmoid colon on series 3 image 236; colorectal surgery notified --> NO change in plan. S/p Cefe, metronidazole (12/12-12/21) - DC TPN 9/ with fungal infection. Discussed with CRS. Can resume oral diet as no planned surgery at this time Assessment & Plan (12/29/2024 10:35 AM CDT): Multiple prior admissions- last discharged on 10/22/24 with plans for o/p colonoscopy on suppressive antibiotics. Colonoscopy this admission (11/03) with evidence of extrinsic compression, no fistula appreciated, unable to intubate cecal base. Was scheduled for exploratory laparotomy, takedown of colovesical fistula, sigmoidectomy, and possible colostomy and preoperative stent placement. The procedure was aborted due to cardiac arrest during intubation-lost airway visualization 2/2 bleeding and needed emergency cric. - Too sick and debilitated to proceed with surgery inpatient per multiple discussion with CRS; discussions been made with patient and - Continue TPN, antibiotics as noted above - Call and notify CRS when closer to [place] so can make clinic appointment - CT abdomen noncontrast 12/14: Severe hepatic steatosis. acute component of diverticulitis and additional area of fistulization to the sigmoid colon on series 3 image 236; colorectal surgery notified --> NO change in plan. S/p Cefe, metronidazole (12/12-12/21) - DC TPN 9/ with fungal infection. Discussed with CRS. Can resume oral diet as no planned surgery at this time Assessment & Plan (12/28/2024 11:23 AM CDT): Multiple prior admissions- last discharged on 10/22/24 with plans for o/p colonoscopy on suppressive antibiotics. Colonoscopy this admission (11/03) with evidence of extrinsic compression, no fistula appreciated, unable to intubate cecal base. Was scheduled for exploratory laparotomy, takedown of colovesical fistula, sigmoidectomy, and possible colostomy and preoperative stent placement. The procedure was aborted due to cardiac arrest during intubation-lost airway visualization 2/2 bleeding and needed emergency cric. - Too sick and debilitated to proceed with surgery inpatient per multiple discussion with CRS; discussions been made with patient and - Continue TPN, antibiotics as noted above - Call and notify CRS when closer to [place] so can make clinic appointment - CT abdomen noncontrast 12/14: Severe hepatic steatosis. acute component of diverticulitis and additional area of fistulization to the sigmoid colon on series 3 image 236; colorectal surgery notified --> NO change in plan. S/p Cefe, metronidazole (12/12-12/21) - DC TPN 9/5 will fungal infection. Discussed with CRS. Can resume oral diet as no planned surgery at this time Assessment & Plan (12/27/2024 10:44 AM CDT): Multiple prior admissions- last discharged on 10/22/24 with plans for o/p colonoscopy on suppressive antibiotics. Colonoscopy this admission (11/03) with evidence of extrinsic compression, no fistula appreciated, unable to intubate cecal base. Was scheduled for exploratory laparotomy, takedown of colovesical fistula, sigmoidectomy, and possible colostomy and preoperative stent placement. The procedure was aborted due to cardiac arrest during intubation-lost airway visualization 2/2 bleeding and needed emergency cric. - Too sick and debilitated to proceed with surgery inpatient per multiple discussion with CRS; discussions been made with patient and - Continue TPN, antibiotics as noted above - Call and notify CRS when closer to [place] so can make clinic appointment - CT abdomen noncontrast 12/14: Severe hepatic steatosis. acute component of diverticulitis and additional area of fistulization to the sigmoid colon on series 3 image 236; colorectal surgery notified --> NO change in plan. S/p Cefe, metronidazole (12/12-12/21) - DC TPN 12/26 will fungal infection. Discussed with CRS. Can resume oral diet as no planned surgery at this time Assessment & Plan (12/26/2024 1:28 PM CDT): Multiple prior admissions- last discharged on 10/22/24 with plans for o/p colonoscopy on suppressive antibiotics. Colonoscopy this admission (11/03) with evidence of extrinsic compression, no fistula appreciated, unable to intubate cecal base. Was scheduled for exploratory laparotomy, takedown of colovesical fistula, sigmoidectomy, and possible colostomy and preoperative stent placement. The procedure was aborted due to cardiac arrest during intubation-lost airway visualization 2/2 bleeding and needed emergency cric. - Too sick and debilitated to proceed with surgery inpatient per multiple discussion with CRS; discussions been made with patient and - Continue TPN, antibiotics as noted above - Call and notify CRS when closer to [place] so can make clinic appointment - CT abdomen noncontrast 12/14: Severe hepatic steatosis. acute component of diverticulitis and additional area of fistulization to the sigmoid colon on series 3 image 236; colorectal surgery notified --> NO change in plan. S/p Cefe, metronidazole (12/12-12/21) - DC TPN 12/26 will fungal infection. Discussed with CRS. Can resume oral diet Assessment & Plan (12/25/2024 1:36 PM CDT): Multiple prior admissions- last discharged on 10/22/24 with plans for o/p colonoscopy on suppressive antibiotics. Colonoscopy this admission (11/03) with evidence of extrinsic compression, no fistula appreciated, unable to intubate cecal base. Was scheduled for exploratory laparotomy, takedown of colovesical fistula, sigmoidectomy, and possible colostomy and preoperative stent placement. The procedure was aborted due to cardiac arrest during intubation-lost airway visualization 2/2 bleeding and needed emergency cric. - Too sick and debilitated to proceed with surgery inpatient per multiple discussion with CRS; discussions been made with patient and - Continue TPN, antibiotics as noted above - Call and notify CRS when closer to [place] so can make clinic appointment - CT abdomen noncontrast 12/14: Severe hepatic steatosis. acute component of diverticulitis and additional area of fistulization to the sigmoid colon on series 3 image 236; colorectal surgery notified --> NO change in plan. S/p Cefe, metronidazole (12/12-12/21) Assessment & Plan (12/24/2024 12:30 PM CDT): Multiple prior admissions- last discharged on 10/22/24 with plans for o/p colonoscopy on suppressive antibiotics. Colonoscopy this admission (11/03) with evidence of extrinsic compression, no fistula appreciated, unable to intubate cecal base. Was scheduled for exploratory laparotomy, takedown of colovesical fistula, sigmoidectomy, and possible colostomy and preoperative stent placement. The procedure was aborted due to cardiac arrest during intubation-lost airway visualization 2/2 bleeding and needed emergency cric. - Too sick and debilitated to proceed with surgery inpatient per multiple discussion with CRS; discussions been made with patient and - Continue TPN, antibiotics as noted above - Call and notify CRS when closer to [place] so can make clinic appointment - CT abdomen noncontrast 12/14: Severe hepatic steatosis. acute component of diverticulitis and additional area of fistulization to the sigmoid colon on series 3 image 236; colorectal surgery notified --> NO change in plan. S/p Cefe, metronidazole (12/12-12/21) Assessment & Plan (12/23/2024 12:16 PM CDT): Multiple prior admissions- last discharged on 10/22/24 with plans for o/p colonoscopy on suppressive antibiotics. Colonoscopy this admission (11/03) with evidence of extrinsic compression, no fistula appreciated, unable to intubate cecal base. Was scheduled for exploratory laparotomy, takedown of colovesical fistula, sigmoidectomy, and possible colostomy and preoperative stent placement. The procedure was aborted due to cardiac arrest during intubation-lost airway visualization 2/2 bleeding and needed emergency cric. - Too sick and debilitated to proceed with surgery inpatient per multiple discussion with CRS; discussions been made with patient and - Continue TPN, antibiotics as noted above - Call and notify CRS when closer to [place] so can make clinic appointment - CT abdomen noncontrast 12/14: Severe hepatic steatosis. acute component of diverticulitis and additional area of fistulization to the sigmoid colon on series 3 image 236; colorectal surgery notified --> NO change in plan. S/p Cefe, metronidazole (12/12-12/21) Assessment & Plan (12/22/2024 7:49 AM CDT): Multiple prior admissions- last discharged on 10/22/24 with plans for o/p colonoscopy on suppressive antibiotics. Colonoscopy this admission (11/03) with evidence of extrinsic compression, no fistula appreciated, unable to intubate cecal base. Was scheduled for exploratory laparotomy, takedown of colovesical fistula, sigmoidectomy, and possible colostomy and preoperative stent placement. The procedure was aborted due to cardiac arrest during intubation-lost airway visualization 2/2 bleeding and needed emergency cric. - Too sick and debilitated to proceed with surgery inpatient per multiple discussion with CRS; discussions been made with patient and - Continue TPN, antibiotics as noted above - Call and notify CRS when closer to [place] so can make clinic appointment - CT abdomen noncontrast 12/14: Severe hepatic steatosis. acute component of diverticulitis and additional area of fistulization to the sigmoid colon on series 3 image 236; colorectal surgery notified --> NO change in plan. S/p Cefe, metronidazole (12/12-12/21) Assessment & Plan (12/21/2024 12:05 PM CDT): Multiple prior admissions- last discharged on 10/22/24 with plans for o/p colonoscopy on suppressive antibiotics. Colonoscopy this admission (11/03) with evidence of extrinsic compression, no fistula appreciated, unable to intubate cecal base. Was scheduled for exploratory laparotomy, takedown of colovesical fistula, sigmoidectomy, and possible colostomy and preoperative stent placement. The procedure was aborted due to cardiac arrest during intubation-lost airway visualization 2/2 bleeding and needed emergency cric. - Too sick and debilitated to proceed with surgery inpatient per multiple discussion with CRS; discussions been made with patient and - Continue TPN, antibiotics as noted above - Call and notify CRS when closer to [place] so can make clinic appointment - CT abdomen noncontrast 12/14: Severe hepatic steatosis. acute component of diverticulitis and additional area of fistulization to the sigmoid colon on series 3 image 236; colorectal surgery notified --> NO change in plan. S/p Cefe, metronidazole (12/12-12/21) Assessment & Plan (12/20/2024 1:16 PM CDT): Multiple prior admissions- last discharged on 10/22/24 with plans for o/p colonoscopy on suppressive antibiotics. Colonoscopy this admission (11/03) with evidence of extrinsic compression, no fistula appreciated, unable to intubate cecal base. Was scheduled for exploratory laparotomy, takedown of colovesical fistula, sigmoidectomy, and possible colostomy and preoperative stent placement. The procedure was aborted due to cardiac arrest during intubation-lost airway visualization 2/2 bleeding and needed emergency cric. - Too sick and debilitated to proceed with surgery inpatient per multiple discussion with CRS; discussions been made with patient and - Continue TPN+clear diet, antibiotics as noted above - Call and notify CRS when closer to [place] so can make clinic appointment - CT abdomen noncontrast 12/14: Severe hepatic steatosis. acute component of diverticulitis and additional area of fistulization to the sigmoid colon on series 3 image 236; colorectal surgery notified --> NO change in plan. S/p Cefe, metronidazole (12/12-12/21) Assessment & Plan (12/19/2024 7:54 AM CDT): Multiple prior admissions- last discharged on 10/22/24 with plans for o/p colonoscopy on suppressive antibiotics. Colonoscopy this admission (11/03) with evidence of extrinsic compression, no fistula appreciated, unable to intubate cecal base. Was scheduled for exploratory laparotomy, takedown of colovesical fistula, sigmoidectomy, and possible colostomy and preoperative stent placement. The procedure was aborted due to cardiac arrest during intubation-lost airway visualization 2/2 bleeding and need emergency cric. 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 Slightly increased fat stranding and wall thickening of the sigmoid colon likely represents a superimposed acute component. Interval resolution of the multifocal pneumonia. Severe hepatic steatosis. Already on Cefepime and Flagyl. Will d/w CRS Multiple prior admissions- last discharged on 10/22/24 with plans for o/p colonoscopy on suppressive antibiotics. Colonoscopy this admission (11/03) with evidence of extrinsic compression, no fistula appreciated, unable to intubate cecal base. Was scheduled for exploratory laparotomy, takedown of colovesical fistula, sigmoidectomy, and possible colostomy and preoperative stent placement. The procedure was aborted due to cardiac arrest during intubation-lost airway visualization 2/2 bleeding and need emergency cric. - Too sick and debilitated to proceed with surgery inpatient per multiple discussion with CRS; discussions been made with patient and - Continue TPN+clear diet, antibiotics as noted above - Call and notify CRS when closer to [place] so can make clinic appointment - Change to IV Zofran, adden IM Tigan as was having issues with PICC line - CT with suspected acute component of diverticulitis and additional area of fistulization to the sigmoid colon on series 3 image 236; colorectal surgery notified to review and offer any recommendation--> NO change in plan. ABx as above Assessment & Plan (12/18/2024 8:14 AM CDT): Multiple prior admissions- last discharged on 10/22/24 with plans for o/p colonoscopy on suppressive antibiotics. Colonoscopy this admission (11/03) with evidence of extrinsic compression, no fistula appreciated, unable to intubate cecal base. Was scheduled for exploratory laparotomy, takedown of colovesical fistula, sigmoidectomy, and possible colostomy and preoperative stent placement. The procedure was aborted due to cardiac arrest during intubation-lost airway visualization 2/2 bleeding and need emergency cric. 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 Slightly increased fat stranding and wall thickening of the sigmoid colon likely represents a superimposed acute component. Interval resolution of the multifocal pneumonia. Severe hepatic steatosis. Already on Cefepime and Flagyl. Will d/w CRS Multiple prior admissions- last discharged on 10/22/24 with plans for o/p colonoscopy on suppressive antibiotics. Colonoscopy this admission (11/03) with evidence of extrinsic compression, no fistula appreciated, unable to intubate cecal base. Was scheduled for exploratory laparotomy, takedown of colovesical fistula, sigmoidectomy, and possible colostomy and preoperative stent placement. The procedure was aborted due to cardiac arrest during intubation-lost airway visualization 2/2 bleeding and need emergency cric. - Too sick and debilitated to proceed with surgery inpatient per multiple discussion with CRS; discussions been made with patient and - Continue TPN+clear diet, antibiotics as noted above - Call and notify CRS when closer to [place] so can make clinic appointment - Change to IV Zofran, adden IM Tigan as was having issues with PICC line - CT with suspected acute component of diverticulitis and additional area of fistulization to the sigmoid colon on series 3 image 236; colorectal surgery notified to review and offer any recommendation--> NO change in plan. ABx as above Assessment & Plan (12/17/2024 1:15 PM CDT): Multiple prior admissions- last discharged on 10/22/24 with plans for o/p colonoscopy on suppressive antibiotics. Colonoscopy this admission (11/03) with evidence of extrinsic compression, no fistula appreciated, unable to intubate cecal base. Was scheduled for exploratory laparotomy, takedown of colovesical fistula, sigmoidectomy, and possible colostomy and preoperative stent placement. The procedure was aborted due to cardiac arrest during intubation-lost airway visualization 2/2 bleeding and need emergency cric. 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 Slightly increased fat stranding and wall thickening of the sigmoid colon likely represents a superimposed acute component. Interval resolution of the multifocal pneumonia. Severe hepatic steatosis. Already on Cefepime and Flagyl. Will d/w CRS Multiple prior admissions- last discharged on 10/22/24 with plans for o/p colonoscopy on suppressive antibiotics. Colonoscopy this admission (11/03) with evidence of extrinsic compression, no fistula appreciated, unable to intubate cecal base. Was scheduled for exploratory laparotomy, takedown of colovesical fistula, sigmoidectomy, and possible colostomy and preoperative stent placement. The procedure was aborted due to cardiac arrest during intubation-lost airway visualization 2/2 bleeding and need emergency cric. - Too sick and debilitated to proceed with surgery inpatient per multiple discussion with CRS; discussions been made with patient and - Continue TPN+clear diet, antibiotics as noted above - Call and notify CRS when closer to [place] so can make clinic appointment - Change to IV Zofran, adden IM Tigan as was having issues with PICC line - CT with suspected acute component of diverticulitis and additional area of fistulization to the sigmoid colon on series 3 image 236; colorectal surgery notified to review and offer any recommendation--> NO change in plan. ABx as above Assessment & Plan (12/16/2024 2:46 PM CDT): Multiple prior admissions- last discharged on 10/22/24 with plans for o/p colonoscopy on suppressive antibiotics. Colonoscopy this admission (11/03) with evidence of extrinsic compression, no fistula appreciated, unable to intubate cecal base. Was scheduled for exploratory laparotomy, takedown of colovesical fistula, sigmoidectomy, and possible colostomy and preoperative stent placement. The procedure was aborted due to cardiac arrest during intubation-lost airway visualization 2/2 bleeding and need emergency cric. 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 Slightly increased fat stranding and wall thickening of the sigmoid colon likely represents a superimposed acute component. Interval resolution of the multifocal pneumonia. Severe hepatic steatosis. Already on Cefepime and Flagyl. Will d/w CRS Multiple prior admissions- last discharged on 10/22/24 with plans for o/p colonoscopy on suppressive antibiotics. Colonoscopy this admission (11/03) with evidence of extrinsic compression, no fistula appreciated, unable to intubate cecal base. Was scheduled for exploratory laparotomy, takedown of colovesical fistula, sigmoidectomy, and possible colostomy and preoperative stent placement. The procedure was aborted due to cardiac arrest during intubation-lost airway visualization 2/2 bleeding and need emergency cric. - Too sick and debilitated to proceed with surgery inpatient per multiple discussion with CRS; discussions been made with patient and - Continue TPN+clear diet, antibiotics as noted above - Call and notify CRS when closer to [place] so can make clinic appointment - Change to IV Zofran, adden IM Tigan as was having issues with PICC line - CT with suspected acute component of diverticulitis and additional area of fistulization to the sigmoid colon on series 3 image 236; colorectal surgery notified to review and offer any recommendation--> NO change in plan. ABx as above Assessment & Plan (12/15/2024 12:46 PM CDT): Multiple prior admissions- last discharged on 10/22/24 with plans for o/p colonoscopy on suppressive antibiotics. Colonoscopy this admission (11/03) with evidence of extrinsic compression, no fistula appreciated, unable to intubate cecal base. Was scheduled for exploratory laparotomy, takedown of colovesical fistula, sigmoidectomy, and possible colostomy and preoperative stent placement. The procedure was aborted due to cardiac arrest during intubation-lost airway visualization 2/2 bleeding and need emergency cric. 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 Slightly increased fat stranding and wall thickening of the sigmoid colon likely represents a superimposed acute component. Interval resolution of the multifocal pneumonia. Severe hepatic steatosis. Already on Cefepime and Flagyl. Will d/w CRS Multiple prior admissions- last discharged on 10/22/24 with plans for o/p colonoscopy on suppressive antibiotics. Colonoscopy this admission (11/03) with evidence of extrinsic compression, no fistula appreciated, unable to intubate cecal base. Was scheduled for exploratory laparotomy, takedown of colovesical fistula, sigmoidectomy, and possible colostomy and preoperative stent placement. The procedure was aborted due to cardiac arrest during intubation-lost airway visualization 2/2 bleeding and need emergency cric. - Too sick and debilitated to proceed with surgery inpatient per multiple discussion with CRS; discussions been made with patient and - Continue TPN+clear diet, antibiotics as noted above - Call and notify CRS when closer to [place] so can make clinic appointment - Change to IV Zofran, adden IM Tigan as was having issues with PICC line - CT with suspected acute component of diverticulitis and additional area of fistulization to the sigmoid colon on series 3 image 236; colorectal surgery notified to review and offer any recommendation--> NO change in plan as of 12/15 Assessment & Plan (12/14/2024 10:58 AM CDT): Multiple prior admissions- last discharged on 10/22/24 with plans for o/p colonoscopy on suppressive antibiotics. Colonoscopy this admission (11/03) with evidence of extrinsic compression, no fistula appreciated, unable to intubate cecal base. Was scheduled for exploratory laparotomy, takedown of colovesical fistula, sigmoidectomy, and possible colostomy and preoperative stent placement. The procedure was aborted due to cardiac arrest during intubation-lost airway visualization 2/2 bleeding and need emergency cric. - Too sick and debilitated to proceed with surgery inpatient per multiple discussion with CRS; discussions been made with patient and - Continue TPN+clear diet, antibiotics as noted above - Call and notify CRS when closer to [place] so can make clinic appointment - Change to IV Zofran - Add Tigan IM for nausea given PICC line occlusion Assessment & Plan (12/14/2024 10:59 AM CDT): Multiple prior admissions- last discharged on 10/22/24 with plans for o/p colonoscopy on suppressive antibiotics. Colonoscopy this admission (11/03) with evidence of extrinsic compression, no fistula appreciated, unable to intubate cecal base. Was scheduled for exploratory laparotomy, takedown of colovesical fistula, sigmoidectomy, and possible colostomy and preoperative stent placement. The procedure was aborted due to cardiac arrest during intubation-lost airway visualization 2/2 bleeding and need emergency cric. - Too sick and debilitated to proceed with surgery inpatient per multiple discussion with CRS; discussions been made with patient and - Continue TPN+clear diet, antibiotics as noted above - Call and notify CRS when closer to [place] so can make clinic appointment - Change to IV Zofran Assessment & Plan (12/12/2024 2:48 PM CDT): Multiple prior admissions- last discharged on 10/22/24 with plans for o/p colonoscopy on suppressive antibiotics. Colonoscopy this admission (11/03) with evidence of extrinsic compression, no fistula appreciated, unable to intubate cecal base. Was scheduled for exploratory laparotomy, takedown of colovesical fistula, sigmoidectomy, and possible colostomy and preoperative stent placement. The procedure was aborted due to cardiac arrest during intubation-lost airway visualization 2/2 bleeding and need emergency cric. - Too sick and debilitated to proceed with surgery inpatient per multiple discussion with CRS; discussions been made with patient and - Continue TPN+clear diet, antibiotics as noted above - Call and notify CRS when closer to [place] so can make clinic appointment Assessment & Plan (12/11/2024 8:52 PM CDT): Multiple prior admissions- last discharged on 10/22/24 with plans for o/p colonoscopy on suppressive antibiotics. Colonoscopy this admission (11/03) with evidence of extrinsic compression, no fistula appreciated, unable to intubate cecal base. Was scheduled for exploratory laparotomy, takedown of colovesical fistula, sigmoidectomy, and possible colostomy and preoperative stent placement. The procedure was aborted due to cardiac arrest during intubation-lost airway visualization 2/2 bleeding and need emergency cric. - Too sick and debilitated to proceed with surgery inpatient per multiple discussion with CRS; discussions been made with patient and - Continue TPN, antibiotics as noted above - Call and notify CRS when closer to [place] so can make clinic appointment Assessment & Plan (12/10/2024 2:27 PM CDT): Multiple prior admissions- last discharged on 10/22/24 with plans for o/p colonoscopy on suppressive antibiotics. Colonoscopy this admission (11/03) with evidence of extrinsic compression, no fistula appreciated, unable to intubate cecal base. Was scheduled for exploratory laparotomy, takedown of colovesical fistula, sigmoidectomy, and possible colostomy and preoperative stent placement. The procedure was aborted due to cardiac arrest during intubation-lost airway visualization 2/2 bleeding and need emergency cric. 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 CRS asked to come back and discuss with them on 11/21/24. - CRS has signed off - plan to f/u in clinic, appointment scheduled OP for 12/10 to evaluate clinical status and discuss plans for re-attempting surgery; given the patient's complexity at this time, it's unlikely that she will get to 12/10/2024 appointment. By Sunday, I will speak to CRS to consider moving that appointment and having them see her inpatient. - ID recommend PO abx - C/w TPN- f/u nutrition recs; only clear liquid intake - reclarified with CRS- plan is no surgery this admission. To discharge home when able and f/u as outpatient to discuss timing of surgery. Discussed with them today, notify them when patient getting closer to [place] Assessment & Plan (12/09/2024 2:27 PM CDT): Multiple prior admissions- last discharged on 10/22/24 with plans for o/p colonoscopy on suppressive antibiotics. Colonoscopy this admission (11/03) with evidence of extrinsic compression, no fistula appreciated, unable to intubate cecal base. Was scheduled for exploratory laparotomy, takedown of colovesical fistula, sigmoidectomy, and possible colostomy and preoperative stent placement. The procedure was aborted due to cardiac arrest during intubation-lost airway visualization 2/2 bleeding and need emergency cric. 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 CRS asked to come back and discuss with them on 11/21/24. - CRS has signed off - plan to f/u in clinic, appointment scheduled OP for 12/10 to evaluate clinical status and discuss plans for re-attempting surgery; given the patient's complexity at this time, it's unlikely that she will get to 12/10/2024 appointment. By Sunday, I will speak to CRS to consider moving that appointment and having them see her inpatient. - ID recommend PO abx - C/w TPN- f/u nutrition recs; only clear liquid intake - reclarified with CRS- plan is no surgery this admission. To discharge home when able and f/u as outpatient to discuss timing of surgery Assessment & Plan (12/08/2024 2:09 PM CDT): - C/w TPN- f/u nutrition recs -Check daily labs - GEOPHYSICIST following: cleared for diet, tolerating FLD - sugars have been mostly normal, switch to Lantus and stop frequent insulin administration and BGT Assessment & Plan (12/07/2024 1:18 PM CDT): - C/w TPN- f/u nutrition recs -Check daily labs - GEOPHYSICIST following: cleared for diet, tolerating FLD - sugars have been mostly normal, switch to Lantus and stop frequent insulin administration and BGT Assessment & Plan (12/06/2024 2:19 PM CDT): - C/w TPN- f/u nutrition recs -Check daily labs - GEOPHYSICIST following: cleared for diet, tolerating FLD - sugars have been mostly normal, switch to Lantus and stop frequent insulin administration and BGT Assessment & Plan (12/05/2024 4:47 PM CDT): - C/w TPN- f/u nutrition recs -Check daily labs - GEOPHYSICIST following: cleared for diet, tolerating FLD - sugars have been mostly normal, switch to Lantus and stop frequent insulin administration and BGT Assessment & Plan (12/04/2024 2:08 PM CDT): - C/w TPN- f/u nutrition recs -Check daily labs - GEOPHYSICIST following: cleared for diet, tolerating FLD - sugars have been mostly normal, switch to Lantus and stop frequent insulin administration and BGT Assessment & Plan (12/03/2024 6:06 PM CDT): - C/w TPN- f/u nutrition recs -Check daily labs - GEOPHYSICIST following: cleared for diet, tolerating FLD Assessment & Plan (12/02/2024 2:26 PM CDT): - C/w TPN- f/u nutrition recs -Check daily labs - GEOPHYSICIST following: cleared for diet, tolerating FLD Assessment & Plan (12/01/2024 9:54 AM CDT): - C/w TPN- f/u nutrition recs -Check daily labs - GEOPHYSICIST following: cleared for diet, tolerating FLD Assessment & Plan (11/30/2024 1:01 PM CDT): - C/w TPN- f/u nutrition recs -Check daily labs - GEOPHYSICIST following: cleared for diet, tolerating FLD Assessment & Plan (11/29/2024 11:20 AM CDT): - C/w TPN- f/u nutrition recs -Check daily labs - GEOPHYSICIST following: cleared for diet, tolerating FLD Assessment & Plan (11/28/2024 1:42 PM CDT): - C/w TPN- f/u nutrition recs -Check daily labs - GEOPHYSICIST following: cleared for diet, tolerating FLD Assessment & Plan (11/27/2024 10:16 AM CDT): - C/w TPN- f/u nutrition recs -Check daily labs - GEOPHYSICIST following: cleared for diet, tolerating FLD Assessment & Plan (11/26/2024 12:13 PM CDT): - C/w TPN- f/u nutrition recs -Check daily labs - GEOPHYSICIST following: cleared for diet, tolerating FLD Assessment & Plan (11/25/2024 3:35 PM CDT): - C/w TPN- f/u nutrition recs -Check daily labs - GEOPHYSICIST following: cleared for diet, tolerating FLD Chronic GERD 11/18/2024 Hyperglycemia 11/18/2024 Acute hypoxic respiratory failure 11/18/2024 Assessment & Plan (03/03/2025 12:36 PM CHEF): Pt endorses SOB, chest pain/tightness w L shoulder pain. On exam, pain seems to be more MSK in origin, though CTAP was concerning for PE findings. CTPE showed acute pulm embolism within R main pulm artery and extending into the R upper, middle and lower lobar and segmental pulm arteries. No evidence of R heart strain. - differentials for AHRF could include ADOLFO vs obesity hypoventilation syndrome as well - S-PESI score of >1, PERT team activated. PERT team determined low-intermediate risk. - TTE 02/25/25 without RHS. - Upper and lower venous duplex without DVT Plan: - Eliquis:10mg BID x7 days (02/27-03/05) and then 5mg BID for 6 months - Titrate O2 sat >92% - Walking o2 completed 03/03 - 2L at rest and exertion as of 03/02. Patient has O2 tanks at home already. - Lidocaine patch for MSK pain of shoulder and chest wall Assessment & Plan (03/02/2025 6:13 PM CHEF): Pt endorses SOB, chest pain/tightness w L shoulder pain. On exam, pain seems to be more MSK in origin, though CTAP was concerning for PE findings. CTPE showed acute pulm embolism within R main pulm artery and extending into the R upper, middle and lower lobar and segmental pulm arteries. No evidence of R heart strain. - differentials for AHRF could include ADOLFO vs obesity hypoventilation syndrome as well - S-PESI score of >1, PERT team activated. PERT team determined low-intermediate risk. - TTE 02/25/25 without RHS. - Upper and lower venous duplex without DVT Plan: - Eliquis:10mg BID x7 days (02/27-03/05) and then 5mg BID for 6 months - Titrate O2 sat >92% - Walking o2 completed today - 2L at rest and exertion as of 03/02. Patient has O2 tanks at home already. - Lidocaine patch for MSK pain of shoulder and chest wall Assessment & Plan (03/01/2025 6:18 AM CHEF): Pt endorses SOB, chest pain/tightness w L shoulder pain. On exam, pain seems to be more MSK in origin, though CTAP was concerning for PE findings. CTPE showed acute pulm embolism within R main pulm artery and extending into the R upper, middle and lower lobar and segmental pulm arteries. No evidence of R heart strain. - differentials for AHRF could include ADOLFO vs obesity hypoventilation syndrome as well - S-PESI score of >1, PERT team activated. PERT team determined low-intermediate risk. - TTE 02/25/25 without RHS. - Upper and lower venous duplex without DVT Plan: - Eliquis:10mg BID x7 days (02/27-03/05) and then 5mg BID for 6 months - Titrate O2 sat >92% - Walking o2 prior to d/c - Lidocaine patch for MSK pain of shoulder and chest wall Assessment & Plan (02/28/2025 10:54 AM CHEF): Pt endorses SOB, chest pain/tightness w L shoulder pain. On exam, pain seems to be more MSK in origin, though CTAP was concerning for PE findings. CTPE showed acute pulm embolism within R main pulm artery and extending into the R upper, middle and lower lobar and segmental pulm arteries. No evidence of R heart strain. - differentials for AHRF could include ADOLFO vs obesity hypoventilation syndrome as well - S-PESI score of >1, PERT team activated. PERT team determined low-intermediate risk. - TTE 02/25/25 without RHS. - Upper and lower venous duplex without DVT Plan: - Eliquis:10mg BID x7 days (02/27-03/05) and then 5mg BID for 6 months - Titrate O2 sat >92% - Walking o2 prior to d/c - Lidocaine patch for MSK pain of shoulder and chest wall Assessment & Plan (02/27/2025 10:08 AM CHEF): Pt endorses SOB, chest pain/tightness w L shoulder pain. On exam, pain seems to be more MSK in origin, though CTAP was concerning for PE findings. CTPE showed acute pulm embolism within R main pulm artery and extending into the R upper, middle and lower lobar and segmental pulm arteries. No evidence of R heart strain. - differentials for AHRF could include ADOLFO vs obesity hypoventilation syndrome as well - S-PESI score of >1, PERT team activated. PERT team determined low-intermediate risk. - TTE 02/25/25 without RHS. - Upper and lower venous duplex without DVT Plan: - Start Eliquis load today: 10mg BID x7 days (02/27-03/05) and then 5mg BID for 6 months - Titrate O2 sat >92% - Walking o2 prior to d/c - Lidocaine patch for MSK pain of shoulder and chest wall Assessment & Plan (02/26/2025 1:05 PM CHEF): Pt endorses SOB, chest pain/tightness w L shoulder pain. On exam, pain seems to be more MSK in origin, though CTAP was concerning for PE findings. CTPE showed acute pulm embolism within R main pulm artery and extending into the R upper, middle and lower lobar and segmental pulm arteries. No evidence of R heart strain. - differentials for AHRF could include ADOLFO vs obesity hypoventilation syndrome as well - S-PESI score of >1, PERT team activated. PLAN: - PERT team deemed pt not at high risk and currently no need for thrombectomy - follow up upper and lower extremity duplex US - therapeutic lovenox daily -- plan to switch to DOAC soon - titrate O2 sat >92% - walking o2 prior to d/c - lidocaine patch for MSK pain of shoulder and chest wall Assessment & Plan (02/25/2025 12:52 PM CHEF): Pt endorses SOB, chest pain/tightness w L shoulder pain. On exam, pain seems to be more MSK in origin, though CTAP was concerning for PE findings. CTPE showed acute pulm embolism within R main pulm artery and extending into the R upper, middle and lower lobar and segmental pulm arteries. No evidence of R heart strain. - differentials for AHRF could include ADOLFO vs obesity hypoventilation syndrome as well - S-PESI score of >1, PERT team activated. PLAN: - PERT team deemed pt not at high risk and currently no need for thrombectomy - therapeutic lovenox daily -- plan to switch to DOAC soon - titrate O2 sat >92% - lidocaine patch for MSK pain of shoulder and chest wall Assessment & Plan (02/24/2025 1:45 PM CHEF): Pt endorses SOB, chest pain/tightness w L shoulder pain. On exam, pain seems to be more MSK in origin, though CTAP was concerning for PE findings. CTPE showed acute pulm embolism within R main pulm artery and extending into the R upper, middle and lower lobar and segmental pulm arteries. No evidence of R heart strain. - differentials for AHRF could include ADOLFO vs obesity hypoventilation syndrome as well - S-PESI score of >1, PERT team activated. PLAN: - PERT team deemed pt not at high risk and currently no need for thrombectomy - therapeutic lovenox daily - titrate O2 sat >92% - lidocaine patch for MSK pain of shoulder and chest wall Assessment & Plan (02/24/2025 10:35 AM CHEF): Adolfo vs PE, titrate to SpO2>92%, follow CTPE Assessment & Plan (12/03/2024 6:06 PM CDT): S/p cardiac arrest w/ emergent cricothyroidotomy revised with placement of Shiley #6 PXLT cuffed trach on 11/11. Replaced by ENT on 11/16 with #6 Shiley PXLT Cuffless. On 11/17 patient trialed PMSV valve with GEOPHYSICIST but was unable to tolerate however can speak one word at a time without use of PMSV. ENT/pulm consulted for blood tinged sputum, healing as expected w/o any concerns. Trach was downsized on 11/21 to #4 Jermaine by Pulm with ENT at bedside given difficult airway. -11/21 Transferred to [facility] -11/22 per Pulm trial capping trach during day: did not tolerate -11/23 tolerated trach capping during day and HHTC at night -11/24 trach capping trial - did rehab with PT then in afternoon found with dislodged trach- ENT/difficult airways scoped and replaced #5 PXLT Shiley Cuffless with good ETCO2 waveform. -11/25 resume capping trial x 24hours as tolerated and check am ABG -11/26 am ABG=7.36/41/138-will confirm with CRS that don't need to keep trach for surgery -11/27 no plan for surgery this admission per CRS. Decannulated trach. -11/29 site healing Assessment & Plan (12/02/2024 2:26 PM CDT): S/p cardiac arrest w/ emergent cricothyroidotomy revised with placement of Shiley #6 PXLT cuffed trach on 11/11. Replaced by ENT on 11/16 with #6 Shiley PXLT Cuffless. On 11/17 patient trialed PMSV valve with GEOPHYSICIST but was unable to tolerate however can speak one word at a time without use of PMSV. ENT/pulm consulted for blood tinged sputum, healing as expected w/o any concerns. Trach was downsized on 11/21 to #4 Jermaine by Pulm with ENT at bedside given difficult airway. -11/21 Transferred to [facility] -11/22 per Pulm trial capping trach during day: did not tolerate -/ tolerated trach capping during day and HHTC at night -11/24 trach capping trial - did rehab with PT then in afternoon found with dislodged trach- ENT/difficult airways scoped and replaced #5 PXLT Shiley Cuffless with good ETCO2 waveform. -11/25 resume capping trial x 24hours as tolerated and check am ABG -86 am ABG=7.36/41/138-will confirm with CRS that don't need to keep trach for surgery -11/27 no plan for surgery this admission per CRS. Decannulated trach. -11/29 site healing Assessment & Plan (12/01/2024 9:54 AM CDT): S/p cardiac arrest w/ emergent cricothyroidotomy revised with placement of Shiley #6 PXLT cuffed trach on 11/11. Replaced by ENT on 11/16 with #6 Shiley PXLT Cuffless. On 11/17 patient trialed PMSV valve with GEOPHYSICIST but was unable to tolerate however can speak one word at a time without use of PMSV. ENT/pulm consulted for blood tinged sputum, healing as expected w/o any concerns. Trach was downsized on 11/21 to #4 Jermaine by Pulm with ENT at bedside given difficult airway. -11/21 Transferred to [facility] -11/22 per Pulm trial capping trach during day: did not tolerate -11/23 tolerated trach capping during day and HHTC at night -11/24 trach capping trial - did rehab with PT then in afternoon found with dislodged trach- ENT/difficult airways scoped and replaced #5 PXLT Shiley Cuffless with good ETCO2 waveform. -11/25 resume capping trial x 24hours as tolerated and check am ABG -8/6 am ABG=7.36/41/138-will confirm with CRS that don't need to keep trach for surgery -11/27 no plan for surgery this admission per CRS. Decannulated trach. -11/29 site healing Assessment & Plan (11/30/2024 1:01 PM CDT): S/p cardiac arrest w/ emergent cricothyroidotomy revised with placement of Shiley #6 PXLT cuffed trach on 11/11. Replaced by ENT on 11/16 with #6 Shiley PXLT Cuffless. On 11/17 patient trialed PMSV valve with GEOPHYSICIST but was unable to tolerate however can speak one word at a time without use of PMSV. ENT/pulm consulted for blood tinged sputum, healing as expected w/o any concerns. Trach was downsized on 11/21 to #4 Jermaine by Pulm with ENT at bedside given difficult airway. -11/21 Transferred to [facility] -11/22 per Pulm trial capping trach during day: did not tolerate -8/3 tolerated trach capping during day and HHTC at night -11/24 trach capping trial - did rehab with PT then in afternoon found with dislodged trach- ENT/difficult airways scoped and replaced #5 PXLT Shiley Cuffless with good ETCO2 waveform. -11/25 resume capping trial x 24hours as tolerated and check am ABG -11/26 am ABG=7.36/41/138-will confirm with CRS that don't need to keep trach for surgery -11/27 no plan for surgery this admission per CRS. Decannulated trach. -11/29 site healing Assessment & Plan (11/29/2024 11:20 AM CDT): S/p cardiac arrest w/ emergent cricothyroidotomy revised with placement of Shiley #6 PXLT cuffed trach on 11/11. Replaced by ENT on 11/16 with #6 Shiley PXLT Cuffless. On 11/17 patient trialed PMSV valve with GEOPHYSICIST but was unable to tolerate however can speak one word at a time without use of PMSV. ENT/pulm consulted for blood tinged sputum, healing as expected w/o any concerns. Trach was downsized on 11/21 to #4 Jermaine by Pulm with ENT at bedside given difficult airway. -11/21 Transferred to [facility] -11/22 per Pulm trial capping trach during day: did not tolerate -8/3 tolerated trach capping during day and HHTC at night -11/24 trach capping trial - did rehab with PT then in afternoon found with dislodged trach- ENT/difficult airways scoped and replaced #5 PXLT Shiley Cuffless with good ETCO2 waveform. -11/25 resume capping trial x 24hours as tolerated and check am ABG -86 am ABG=7.36/41/138-will confirm with CRS that don't need to keep trach for surgery -11/27 no plan for surgery this admission per CRS. Decannulated trach. -11/29 site healing Assessment & Plan (11/28/2024 1:42 PM CDT): S/p cardiac arrest w/ emergent cricothyroidotomy revised with placement of Shiley #6 PXLT cuffed trach on 11/11. Replaced by ENT on 11/16 with #6 Shiley PXLT Cuffless. On 11/17 patient trialed PMSV valve with GEOPHYSICIST but was unable to tolerate however can speak one word at a time without use of PMSV. ENT/pulm consulted for blood tinged sputum, healing as expected w/o any concerns. Trach was downsized on 11/21 to #4 Jermaine by Pulm with ENT at bedside given difficult airway. -11/21 Transferred to [facility] -11/22 per Pulm trial capping trach during day: did not tolerate -11/23 tolerated trach capping during day and HHTC at night -11/24 trach capping trial - did rehab with PT then in afternoon found with dislodged trach- ENT/difficult airways scoped and replaced #5 PXLT Shiley Cuffless with good ETCO2 waveform. -11/25 resume capping trial x 24hours as tolerated and check am ABG -86 am ABG=7.36/41/138-will confirm with CRS that don't need to keep trach for surgery -11/27 no plan for surgery this admission. Decannulated trach. Assessment & Plan (11/27/2024 10:16 AM CDT): S/p cardiac arrest w/ emergent cricothyroidotomy revised with placement of Shiley #6 PXLT cuffed trach on 11/11. Replaced by ENT on 11/16 with #6 Shiley PXLT Cuffless. On 11/17 patient trialed PMSV valve with GEOPHYSICIST but was unable to tolerate however can speak one word at a time without use of PMSV. ENT/pulm consulted for blood tinged sputum, healing as expected w/o any concerns. Trach was downsized on 11/21 to #4 Jermaine by Pulm with ENT at bedside given difficult airway. -11/21 Transferred to [facility] -11/22 per Pulm trial capping trach during day: did not tolerate -/3 tolerated trach capping during day and HHTC at night -11/24 trach capping trial - did rehab with PT then in afternoon found with dislodged trach- ENT/difficult airways scoped and replaced #5 PXLT Shiley Cuffless with good ETCO2 waveform. -11/25 resume capping trial x 24hours as tolerated and check am ABG -8/6 am ABG=7.36/41/138-will confirm with CRS that don't need to keep trach for surgery-awaiting response 11/27. Assessment & Plan (11/26/2024 12:13 PM CDT): S/p cardiac arrest w/ emergent cricothyroidotomy revised with placement of Shiley #6 PXLT cuffed trach on 11/11. Replaced by ENT on 11/16 with #6 Shiley PXLT Cuffless. On 11/17 patient trialed PMSV valve with GEOPHYSICIST but was unable to tolerate however can speak one word at a time without use of PMSV. ENT/pulm consulted for blood tinged sputum, healing as expected w/o any concerns. Trach was downsized on 11/21 to #4 Jermaine by Pulm with ENT at bedside given difficult airway. -11/21 Transferred to [facility] -11/22 per Pulm trial capping trach during day: did not tolerate -3 tolerated trach capping during day and HHTC at night -11/24 trach capping trial - did rehab with PT then in afternoon found with dislodged trach- ENT/difficult airways scoped and replaced #5 PXLT Shiley Cuffless with good ETCO2 waveform. -11/25 resume capping trial x 24hours as tolerated and check am ABG -8/6 am ABG=7.36/41/138-will confirm with CRS that don't need to keep trach for surgery Assessment & Plan (11/25/2024 3:35 PM CDT): S/p cardiac arrest w/ emergent cricothyroidotomy revised with placement of Shiley #6 PXLT cuffed trach on 11/11. Replaced by ENT on 11/16 with #6 Shiley PXLT Cuffless. On 11/17 patient trialed PMSV valve with GEOPHYSICIST but was unable to tolerate however can speak one word at a time without use of PMSV. ENT/pulm consulted for blood tinged sputum, healing as expected w/o any concerns. Trach was downsized on 11/21 to #4 Jermaine by Pulm with ENT at bedside given difficult airway. -11/21 Transferred to [facility] -11/22 per Pulm trial capping trach during day: did not tolerate -11/23 tolerated trach capping during day and HHTC at night -11/24 trach capping trial - did rehab with PT then in afternoon found with dislodged trach- ENT/difficult airways scoped and replaced #5 PXLT Shiley Cuffless with good ETCO2 waveform. -11/25 resume capping trial x 24hours as tolerated and check am ABG Assessment & Plan (11/24/2024 11:39 PM CDT): S/p cardiac arrest w/ emergent cricothyroidotomy revised with placement of Shiley 6 cuffed trach on 11/11. Tracheostomy replaced by ENT Otolaryngology on 11/16 with #6 Shiley XLT Proximal Cuffless. On 11/17 patient trialed PMV valve with GEOPHYSICIST but was unable to tolerate however can speak one word at a time without use of PMSV. ENt/pulm consulted for blood tinged sputum, healing as expected w/o any concerns. Trach was downsized on 11/21 to # 4 Jermaine by Pulm with ENT at bedside given difficult airways - GEOPHYSICIST following: cleared for diet, tolerating FLD - Trial PMV w/ supervision -Transfer to [facility] 11/21 pm -intensive PT/OT, OOBTC planned -Continue HHTC - Pulm consult following and rec trach capping trial during day as tolerated, uncap at night 8/2 did not tolerate, 8-3 tolerated trach capping during day and uncap at night 8-4 same plan for capping trial , pt found with dislodged trach- ENT/difficult airways scoped and placed Trach #5 Shiley XL, Proximal, Cuffless with good ETCO2 waveform , see event note Monitor on TC - ENT to be contacted if issues/ concerns Assessment & Plan (11/23/2024 8:59 PM CDT): S/p cardiac arrest in the ICU w/ emergent cricothyroidotomy revised with placement of Shiley 6 cuffed trach on 11/11. Tracheostomy replaced by ENT Otolaryngology on 11/16 with #6 Shiley XLT Proximal Cuffless. On 11/17 patient trialed PMV valve with GEOPHYSICIST but was unable to tolerate however can speak one word at a time without use of PMSV. ENt/pulm consulted for blood tinged sputum, healing as expected w/o any concerns. Trach was downsized on 11/21 to # 4 Jermaine by Pulm with ENT at bedside given difficult airways - GEOPHYSICIST following: cleared for diet, tolerating FLD - Trial PMV w/ supervision -Transfer to [facility] 11/21 pm -intensive PT/OT, OOBTC planned -Continue HHTC - - Discussed capping trial during day per Pulm and uncap to TC at night , did not tolerate on 11-22, possibly related to anxiety. Doing well today - GEOPHYSICIST following - ENT to be contacted if issues/ concerns Assessment & Plan (11/22/2024 7:23 PM CDT): S/p cardiac arrest in the ICU w/ emergent cricothyroidotomy revised with placement of Shiley 6 cuffed trach on 11/11. Tracheostomy replaced by ENT Otolaryngology on 11/16 with #6 Shiley XLT Proximal Cuffless. On 11/17 patient trialed PMV valve with GEOPHYSICIST but was unable to tolerate however can speak one word at a time without use of PMSV. ENt/pulm consulted for blood tinged sputum, healing as expected w/o any concerns. Trach was downsized on 11/21 by Pulm/ENT at bedside for trach downsize # 4 Jermaine - GEOPHYSICIST following: cleared for diet, tolerating FLD - Trial PMV w/ supervision -Transfer to [facility] 11/21 pm -intensive PT/OT, OOBTC planned -Continue HHTC - capping trial during day per Pulm, did not tolerate - GEOPHYSICIST following - ENT to be contacted if issues/ concerns Assessment & Plan (11/21/2024 3:38 PM CDT): Patient had cardiac arrest in the ICU w/ emergent cricothyroidotomy revised with placement of Shiley 6 cuffed trach on 11/11. ENt/pulm consulted for blood tinged sputum, healing as expected w/o any concerns. Trach was downsized on 11/21 by Pulm/ENT at bedside for trach downsize. Trach: Jermaine 4 W. Cleared to trial PMV and if not tolerating can try capping and see if she tolerates (per pulm/ent: PMV may be causing irritation, and pt is able to occlude trach and phonate on her own). - C/w trach collar - GEOPHYSICIST following: cleared for diet, tolerating FLD - Trial PMV w/ supervision - PPCU consult placed, hopeful for transfer; in the meantime, aggressive PT/OT, OOBTC. Assessment & Plan (11/20/2024 3:42 PM CDT): RESOLVED Patient had cardiac arrest in the ICU w/ emergent cricothyroidotomy revised with placement of Shiley 6 cuffed trach on 11/11. Trach was replaced by ENT Otolaryngology on 11/16 with 6.0 Siley XL Proximal Cuffless. On 11/17 patient trialed PMV valve with GEOPHYSICIST but was unable to tolerate. - C/w trach collar - GEOPHYSICIST following, plan for MBS tomorrow - consulted Pulmonology for trach wean and possible downsize Assessment & Plan (11/19/2024 1:39 PM CDT): RESOLVED Patient had cardiac arrest in the ICU w/ emergent cricothyroidotomy revised with placement of Shiley 6 cuffed trach on 11/11. Trach was replaced by ENT Otolaryngology on 11/16 with 6.0 Siley XL Proximal Cuffless. On 11/17 patient trialed PMV valve with GEOPHYSICIST but was unable to tolerate. - C/w trach collar - GEOPHYSICIST following, plan for MBS tomorrow - Reached out to ENT regarding significant coughing w/ PMV ? downsize Assessment & Plan (11/18/2024 6:00 PM CDT): RESOLVED - s/p ICU hospitalisation for cardiac arrest c/b respiratrory failure requiring emergent cricothyroidotomy ENT signed off- s/p trach exchange on 11/16 6.0 shiley C/w trach collar GEOPHYSICIST following, plan for MBS tomorrow Difficult airway 11/18/2024 Assessment & Plan (12/03/2024 6:06 PM CDT): S/p cardiac arrest w/ emergent cricothyroidotomy revised with placement of Shiley #6 PXLT cuffed trach on 11/11. Replaced by ENT on 11/16 with #6 Shiley PXLT Cuffless. On 11/17 patient trialed PMSV valve with GEOPHYSICIST but was unable to tolerate however can speak one word at a time without use of PMSV. ENT/pulm consulted for blood tinged sputum, healing as expected w/o any concerns. Trach was downsized on 11/21 to #4 Jermaine by Pulm with ENT at bedside given difficult airway. -11/21 Transferred to [facility] -11/22 per Pulm trial capping trach during day: did not tolerate -11/23 tolerated trach capping during day and HHTC at night -11/24 trach capping trial - did rehab with PT then in afternoon found with dislodged trach- ENT/difficult airways scoped and replaced #5 PXLT Shiley Cuffless with good ETCO2 waveform. -11/25 resume capping trial x 24hours as tolerated and check am ABG -11/26 am ABG=7.36/41/138-will confirm with CRS that don't need to keep trach for surgery -11/27 no plan for surgery this admission per CRS. Decannulated trach. -11/29 site healing Assessment & Plan (12/02/2024 2:26 PM CDT): S/p cardiac arrest w/ emergent cricothyroidotomy revised with placement of Shiley #6 PXLT cuffed trach on 11/11. Replaced by ENT on 11/16 with #6 Shiley PXLT Cuffless. On 11/17 patient trialed PMSV valve with GEOPHYSICIST but was unable to tolerate however can speak one word at a time without use of PMSV. ENT/pulm consulted for blood tinged sputum, healing as expected w/o any concerns. Trach was downsized on 11/21 to #4 Jermaine by Pulm with ENT at bedside given difficult airway. -11/21 Transferred to [facility] -11/22 per Pulm trial capping trach during day: did not tolerate -/ tolerated trach capping during day and HHTC at night -11/24 trach capping trial - did rehab with PT then in afternoon found with dislodged trach- ENT/difficult airways scoped and replaced #5 PXLT Shiley Cuffless with good ETCO2 waveform. -11/25 resume capping trial x 24hours as tolerated and check am ABG -86 am ABG=7.36/41/138-will confirm with CRS that don't need to keep trach for surgery -11/27 no plan for surgery this admission per CRS. Decannulated trach. -11/29 site healing Assessment & Plan (12/01/2024 9:54 AM CDT): S/p cardiac arrest w/ emergent cricothyroidotomy revised with placement of Shiley #6 PXLT cuffed trach on 11/11. Replaced by ENT on 11/16 with #6 Shiley PXLT Cuffless. On 11/17 patient trialed PMSV valve with GEOPHYSICIST but was unable to tolerate however can speak one word at a time without use of PMSV. ENT/pulm consulted for blood tinged sputum, healing as expected w/o any concerns. Trach was downsized on 11/21 to #4 Jermaine by Pulm with ENT at bedside given difficult airway. -11/21 Transferred to [facility] -11/22 per Pulm trial capping trach during day: did not tolerate -11/23 tolerated trach capping during day and HHTC at night -11/24 trach capping trial - did rehab with PT then in afternoon found with dislodged trach- ENT/difficult airways scoped and replaced #5 PXLT Shiley Cuffless with good ETCO2 waveform. -11/25 resume capping trial x 24hours as tolerated and check am ABG -8/6 am ABG=7.36/41/138-will confirm with CRS that don't need to keep trach for surgery -11/27 no plan for surgery this admission per CRS. Decannulated trach. -11/29 site healing Assessment & Plan (11/30/2024 1:01 PM CDT): S/p cardiac arrest w/ emergent cricothyroidotomy revised with placement of Shiley #6 PXLT cuffed trach on 11/11. Replaced by ENT on 11/16 with #6 Shiley PXLT Cuffless. On 11/17 patient trialed PMSV valve with GEOPHYSICIST but was unable to tolerate however can speak one word at a time without use of PMSV. ENT/pulm consulted for blood tinged sputum, healing as expected w/o any concerns. Trach was downsized on 11/21 to #4 Jermaine by Pulm with ENT at bedside given difficult airway. -11/21 Transferred to [facility] -11/22 per Pulm trial capping trach during day: did not tolerate -8/3 tolerated trach capping during day and HHTC at night -11/24 trach capping trial - did rehab with PT then in afternoon found with dislodged trach- ENT/difficult airways scoped and replaced #5 PXLT Shiley Cuffless with good ETCO2 waveform. -11/25 resume capping trial x 24hours as tolerated and check am ABG -11/26 am ABG=7.36/41/138-will confirm with CRS that don't need to keep trach for surgery -11/27 no plan for surgery this admission per CRS. Decannulated trach. -11/29 site healing Assessment & Plan (11/29/2024 11:20 AM CDT): S/p cardiac arrest w/ emergent cricothyroidotomy revised with placement of Shiley #6 PXLT cuffed trach on 11/11. Replaced by ENT on 11/16 with #6 Shiley PXLT Cuffless. On 11/17 patient trialed PMSV valve with GEOPHYSICIST but was unable to tolerate however can speak one word at a time without use of PMSV. ENT/pulm consulted for blood tinged sputum, healing as expected w/o any concerns. Trach was downsized on 11/21 to #4 Jermaine by Pulm with ENT at bedside given difficult airway. -11/21 Transferred to [facility] -11/22 per Pulm trial capping trach during day: did not tolerate -8/3 tolerated trach capping during day and HHTC at night -11/24 trach capping trial - did rehab with PT then in afternoon found with dislodged trach- ENT/difficult airways scoped and replaced #5 PXLT Shiley Cuffless with good ETCO2 waveform. -11/25 resume capping trial x 24hours as tolerated and check am ABG -86 am ABG=7.36/41/138-will confirm with CRS that don't need to keep trach for surgery -11/27 no plan for surgery this admission per CRS. Decannulated trach. -11/29 site healing Assessment & Plan (11/28/2024 1:42 PM CDT): S/p cardiac arrest w/ emergent cricothyroidotomy revised with placement of Shiley #6 PXLT cuffed trach on 11/11. Replaced by ENT on 11/16 with #6 Shiley PXLT Cuffless. On 11/17 patient trialed PMSV valve with GEOPHYSICIST but was unable to tolerate however can speak one word at a time without use of PMSV. ENT/pulm consulted for blood tinged sputum, healing as expected w/o any concerns. Trach was downsized on 11/21 to #4 Jermaine by Pulm with ENT at bedside given difficult airway. -11/21 Transferred to [facility] -11/22 per Pulm trial capping trach during day: did not tolerate -11/23 tolerated trach capping during day and HHTC at night -11/24 trach capping trial - did rehab with PT then in afternoon found with dislodged trach- ENT/difficult airways scoped and replaced #5 PXLT Shiley Cuffless with good ETCO2 waveform. -11/25 resume capping trial x 24hours as tolerated and check am ABG -86 am ABG=7.36/41/138-will confirm with CRS that don't need to keep trach for surgery -11/27 no plan for surgery this admission. Decannulated trach. Assessment & Plan (11/27/2024 10:16 AM CDT): S/p cardiac arrest w/ emergent cricothyroidotomy revised with placement of Shiley #6 PXLT cuffed trach on 11/11. Replaced by ENT on 11/16 with #6 Shiley PXLT Cuffless. On 11/17 patient trialed PMSV valve with GEOPHYSICIST but was unable to tolerate however can speak one word at a time without use of PMSV. ENT/pulm consulted for blood tinged sputum, healing as expected w/o any concerns. Trach was downsized on 11/21 to #4 Jermaine by Pulm with ENT at bedside given difficult airway. -11/21 Transferred to [facility] -11/22 per Pulm trial capping trach during day: did not tolerate -/3 tolerated trach capping during day and HHTC at night -11/24 trach capping trial - did rehab with PT then in afternoon found with dislodged trach- ENT/difficult airways scoped and replaced #5 PXLT Shiley Cuffless with good ETCO2 waveform. -11/25 resume capping trial x 24hours as tolerated and check am ABG -8/6 am ABG=7.36/41/138-will confirm with CRS that don't need to keep trach for surgery-awaiting response 11/27. Assessment & Plan (11/26/2024 12:13 PM CDT): S/p cardiac arrest w/ emergent cricothyroidotomy revised with placement of Shiley #6 PXLT cuffed trach on 11/11. Replaced by ENT on 11/16 with #6 Shiley PXLT Cuffless. On 11/17 patient trialed PMSV valve with GEOPHYSICIST but was unable to tolerate however can speak one word at a time without use of PMSV. ENT/pulm consulted for blood tinged sputum, healing as expected w/o any concerns. Trach was downsized on 11/21 to #4 Jermaine by Pulm with ENT at bedside given difficult airway. -11/21 Transferred to [facility] -11/22 per Pulm trial capping trach during day: did not tolerate -/3 tolerated trach capping during day and HHTC at night -11/24 trach capping trial - did rehab with PT then in afternoon found with dislodged trach- ENT/difficult airways scoped and replaced #5 PXLT Shiley Cuffless with good ETCO2 waveform. -11/25 resume capping trial x 24hours as tolerated and check am ABG -8/6 am ABG=7.36/41/138-will confirm with CRS that don't need to keep trach for surgery Assessment & Plan (11/25/2024 3:35 PM CDT): S/p cardiac arrest w/ emergent cricothyroidotomy revised with placement of Shiley #6 PXLT cuffed trach on 11/11. Replaced by ENT on 11/16 with #6 Shiley PXLT Cuffless. On 11/17 patient trialed PMSV valve with GEOPHYSICIST but was unable to tolerate however can speak one word at a time without use of PMSV. ENT/pulm consulted for blood tinged sputum, healing as expected w/o any concerns. Trach was downsized on 11/21 to #4 Jermaine by Pulm with ENT at bedside given difficult airway. -11/21 Transferred to [facility] -11/22 per Pulm trial capping trach during day: did not tolerate -11/23 tolerated trach capping during day and HHTC at night -11/24 trach capping trial - did rehab with PT then in afternoon found with dislodged trach- ENT/difficult airways scoped and replaced #5 PXLT Shiley Cuffless with good ETCO2 waveform. -11/25 resume capping trial x 24hours as tolerated and check am ABG Assessment & Plan (11/24/2024 11:39 PM CDT): S/p cardiac arrest w/ emergent cricothyroidotomy revised with placement of Shiley 6 cuffed trach on 11/11. Tracheostomy replaced by ENT Otolaryngology on 11/16 with #6 Shiley XLT Proximal Cuffless. On 11/17 patient trialed PMV valve with GEOPHYSICIST but was unable to tolerate however can speak one word at a time without use of PMSV. ENt/pulm consulted for blood tinged sputum, healing as expected w/o any concerns. Trach was downsized on 11/21 to # 4 Jermaine by Pulm with ENT at bedside given difficult airways - GEOPHYSICIST following: cleared for diet, tolerating FLD - Trial PMV w/ supervision -Transfer to [facility] 11/21 pm -intensive PT/OT, OOBTC planned -Continue HHTC - Pulm consult following and rec trach capping trial during day as tolerated, uncap at night 8/2 did not tolerate, 8-3 tolerated trach capping during day and uncap at night 8-4 same plan for capping trial , pt found with dislodged trach- ENT/difficult airways scoped and placed Trach #5 Shiley XL, Proximal, Cuffless with good ETCO2 waveform , see event note Monitor on TC - ENT to be contacted if issues/ concerns Assessment & Plan (11/23/2024 8:59 PM CDT): S/p cardiac arrest in the ICU w/ emergent cricothyroidotomy revised with placement of Shiley 6 cuffed trach on 11/11. Tracheostomy replaced by ENT Otolaryngology on 11/16 with #6 Shiley XLT Proximal Cuffless. On 11/17 patient trialed PMV valve with GEOPHYSICIST but was unable to tolerate however can speak one word at a time without use of PMSV. ENt/pulm consulted for blood tinged sputum, healing as expected w/o any concerns. Trach was downsized on 11/21 to # 4 Jermaine by Pulm with ENT at bedside given difficult airways - GEOPHYSICIST following: cleared for diet, tolerating FLD - Trial PMV w/ supervision -Transfer to PPCU 11/21 pm -intensive PT/OT, OOBTC planned -Continue HHTC - - Discussed capping trial during day per Pulm and uncap to TC at night , did not tolerate on 11-22, possibly related to anxiety. Doing well today - GEOPHYSICIST following - ENT to be contacted if issues/ concerns Assessment & Plan (11/22/2024 7:23 PM CDT): S/p cardiac arrest in the ICU w/ emergent cricothyroidotomy revised with placement of Shiley 6 cuffed trach on 11/11. Tracheostomy replaced by ENT Otolaryngology on 11/16 with #6 Shiley XLT Proximal Cuffless. On 11/17 patient trialed PMV valve with GEOPHYSICIST but was unable to tolerate however can speak one word at a time without use of PMSV. ENt/pulm consulted for blood tinged sputum, healing as expected w/o any concerns. Trach was downsized on 11/21 by Pulm/ENT at bedside for trach downsize # 4 Jermaine - GEOPHYSICIST following: cleared for diet, tolerating FLD - Trial PMV w/ supervision -Transfer to PPCU 11/21 pm -intensive PT/OT, OOBTC planned -Continue HHTC - capping trial during day per Pulm, did not tolerate - GEOPHYSICIST following - ENT to be contacted if issues/ concerns Assessment & Plan (11/21/2024 3:38 PM CDT): Patient had cardiac arrest in the ICU w/ emergent cricothyroidotomy revised with placement of Shiley 6 cuffed trach on 11/11. ENt/pulm consulted for blood tinged sputum, healing as expected w/o any concerns. Trach was downsized on 11/21 by Pulm/ENT at bedside for trach downsize. Trach: Jermaine 4 W. Cleared to trial PMV and if not tolerating can try capping and see if she tolerates (per pulm/ent: PMV may be causing irritation, and pt is able to occlude trach and phonate on her own). - C/w trach collar - GEOPHYSICIST following: cleared for diet, tolerating FLD - Trial PMV w/ supervision - PPCU consult placed, hopeful for transfer; in the meantime, aggressive PT/OT, OOBTC. Assessment & Plan (11/20/2024 3:42 PM CDT): RESOLVED Patient had cardiac arrest in the ICU w/ emergent cricothyroidotomy revised with placement of Shiley 6 cuffed trach on 11/11. Trach was replaced by ENT Otolaryngology on 11/16 with 6.0 Siley XL Proximal Cuffless. On 11/17 patient trialed PMV valve with GEOPHYSICIST but was unable to tolerate. - C/w trach collar - GEOPHYSICIST following, plan for MBS tomorrow - consulted Pulmonology for trach wean and possible downsize Assessment & Plan (11/19/2024 1:39 PM CDT): RESOLVED Patient had cardiac arrest in the ICU w/ emergent cricothyroidotomy revised with placement of Shiley 6 cuffed trach on 11/11. Trach was replaced by ENT Otolaryngology on 11/16 with 6.0 Siley XL Proximal Cuffless. On 11/17 patient trialed PMV valve with GEOPHYSICIST but was unable to tolerate. - C/w trach collar - GEOPHYSICIST following, plan for MBS tomorrow - Reached out to ENT regarding significant coughing w/ PMV ? downsize Assessment & Plan (11/18/2024 6:00 PM CDT): RESOLVED - s/p ICU hospitalisation for cardiac arrest c/b respiratrory failure requiring emergent cricothyroidotomy ENT signed off- s/p trach exchange on 11/16 6.0 celine C/w trach collar GEOPHYSICIST following, plan for MBS tomorrow CKD (chronic kidney disease) 11/18/2024 Assessment & Plan (12/29/2024 10:35 AM CDT): - unclear baseline Cr with frequent hospitalizations, ~1.1-1.3 - Worsening creatinine 1.56, renal ultrasound no obstruction, no hydronephrosis, no stone, has focal prominence of left lower pole nonurgent renal CT or MRI - Likely ATN iso episode of hypotension, now resolved - renally dose meds, avoid nephrotoxic agents - 3-way Mcclelland in place with BID irrigation 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56, renal ultrasound no obstruction, no hydronephrosis, no stone, has focal prominence of left lower pole nonurgent renal CT or MRI - Likely ATN iso episode of hypotension, now resolved - renally dose meds, avoid nephrotoxic agents - 3-way Mcclelland in place with BID irrigation 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 Assessment & Plan (12/26/2024 1:28 PM CDT): - unclear baseline Cr with frequent hospitalizations, ~1.1-1.3 - Worsening creatinine 1.56, renal ultrasound no obstruction, no hydronephrosis, no stone, has focal prominence of left lower pole nonurgent renal CT or MRI - Likely ATN iso episode of hypotension, now resolved Plan : renally dose meds, avoid nephrotoxic agents - 3-way Mcclelland in place with BID irrigation 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 Assessment & Plan (12/25/2024 1:36 PM CDT): - unclear baseline Cr with frequent hospitalizations, ~1.1-1.3 - Worsening creatinine 1.56, renal ultrasound no obstruction, no hydronephrosis, no stone, has focal prominence of left lower pole nonurgent renal CT or MRI - Likely ATN iso episode of hypotension, now resolved Plan : renally dose meds, avoid nephrotoxic agents - 3-way Mcclelland in place with BID irrigation 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 Assessment & Plan (12/24/2024 12:30 PM CDT): - unclear baseline Cr with frequent hospitalizations, ~1.1-1.3 - Worsening creatinine 1.56, renal ultrasound no obstruction, no hydronephrosis, no stone, has focal prominence of left lower pole nonurgent renal CT or MRI - Likely ATN iso episode of hypotension, now resolved Plan : renally dose meds, avoid nephrotoxic agents - 3-way Mcclelland in place with BID irrigation 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 Assessment & Plan (12/23/2024 12:16 PM CDT): - unclear baseline Cr with frequent hospitalizations, ~1.1-1.3 - Worsening creatinine 1.56, renal ultrasound no obstruction, no hydronephrosis, no stone, has focal prominence of left lower pole nonurgent renal CT or MRI - Likely ATN iso episode of hypotension, now resolved Plan : renally dose meds, avoid nephrotoxic agents - 3-way Mcclelland in place with BID irrigation 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 Prn IVF and bolus. 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 Prn IVF and bolus. 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 Prn IVF and bolus. 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 Prn IVF and bolus. 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 Prn IVF and bolus. 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 Prn IVF and bolus. 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 Prn IVF and bolus. 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 Prn IVF and bolus. 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 Prn IVF and bolus. 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 Prn IVF and bolus. 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 Prn IVF and bolus. - renally dose meds, avoid nephrotoxic agents - Mcclelland in place - Daily BMP Assessment & Plan (12/10/2024 8:41 AM CDT): - unclear baseline Cr with frequent hospitalizations, ~1.1-1.3 - Cr on admission 1.38--> peaked 1.56-->recent ranges 1.32-1.56 - mcclelland, strict I/O - renally dose meds, avoid nephrotoxic agents Assessment & Plan (12/09/2024 2:27 PM CDT): - unclear baseline Cr with frequent hospitalizations, ~1.1-1.3 - Cr on admission 1.38--> peaked 1.56-->recent ranges 1.32-1.56 - mcclelland, strict I/O - renally dose meds, avoid nephrotoxic agents Assessment & Plan (12/08/2024 2:09 PM CDT): - unclear baseline Cr with frequent hospitalizations, ~1.1-1.3 - Cr on admission 1.38--> now down to 1.04 - mcclelland, strict I/O - renally dose meds, avoid nephrotoxic agents Assessment & Plan (12/07/2024 1:18 PM CDT): - unclear baseline Cr with frequent hospitalizations, ~1.1-1.3 - Cr on admission 1.38--> now down to 1.04 - mcclelland, strict I/O - renally dose meds, avoid nephrotoxic agents Assessment & Plan (12/06/2024 2:19 PM CDT): - unclear baseline Cr with frequent hospitalizations, ~1.1-1.3 - Cr on admission 1.38--> now down to 1.04 - mcclelland, strict I/O - renally dose meds, avoid nephrotoxic agents Assessment & Plan (12/05/2024 4:47 PM CDT): - unclear baseline Cr with frequent hospitalizations, ~1.1-1.3 - Cr on admission 1.38--> now down to 1.04 - mcclelland, strict I/O - renally dose meds, avoid nephrotoxic agents Assessment & Plan (12/04/2024 2:08 PM CDT): - unclear baseline Cr with frequent hospitalizations, ~1.1-1.3 - Cr on admission 1.38--> now down to 1.04 - mcclelland, strict I/O - renally dose meds, avoid nephrotoxic agents Assessment & Plan (12/03/2024 6:06 PM CDT): - unclear baseline Cr with frequent hospitalizations, ~1.1-1.3 - Cr on admission 1.38--> now down to 1.04 - mcclelland, strict I/O - renally dose meds, avoid nephrotoxic agents Assessment & Plan (12/02/2024 2:26 PM CDT): - unclear baseline Cr with frequent hospitalizations, ~1.1-1.3 - Cr on admission 1.38--> now down to 1.04 - mcclelland, strict I/O - renally dose meds, avoid nephrotoxic agents Assessment & Plan (12/01/2024 9:54 AM CDT): - unclear baseline Cr with frequent hospitalizations, ~1.1-1.3 - Cr on admission 1.38--> now down to 1.04 - mcclelland, strict I/O - renally dose meds, avoid nephrotoxic agents Assessment & Plan (11/30/2024 1:01 PM CDT): - unclear baseline Cr with frequent hospitalizations, ~1.1-1.3 - Cr on admission 1.38--> now down to 1.04 - mcclelland, strict I/O - renally dose meds, avoid nephrotoxic agents Assessment & Plan (11/29/2024 11:20 AM CDT): - unclear baseline Cr with frequent hospitalizations, ~1.1-1.3 - Cr on admission 1.38--> now down to 1.04 - mcclelland, strict I/O - renally dose meds, avoid nephrotoxic agents Assessment & Plan (11/28/2024 1:42 PM CDT): - unclear baseline Cr with frequent hospitalizations, ~1.1-1.3 - Cr on admission 1.38--> now down to 1.04 - mcclelland, strict I/O - renally dose meds, avoid nephrotoxic agents Assessment & Plan (11/27/2024 10:16 AM CDT): - unclear baseline Cr with frequent hospitalizations, ~1.1-1.3 - Cr on admission 1.38--> now down to 1.04 - mcclelland, strict I/O - renally dose meds, avoid nephrotoxic agents Assessment & Plan (11/26/2024 12:13 PM CDT): - unclear baseline Cr with frequent hospitalizations, ~1.1-1.3 - Cr on admission 1.38--> now down to 1.04 - mcclelland, strict I/O - renally dose meds, avoid nephrotoxic agents Assessment & Plan (11/25/2024 3:35 PM CDT): - unclear baseline Cr with frequent hospitalizations, ~1.1-1.3 - Cr on admission 1.38--> now down to 1.04 - mcclelland, strict I/O - renally dose meds, avoid nephrotoxic agents Assessment & Plan (11/24/2024 8:49 AM CDT): - unclear baseline Cr with frequent hospitalizations, ~1.1-1.3 - Cr on admission 1.38--> now down to 1.04 - mcclelland, strict I/O - renal dose meds, avoid nephrotoxic agents Assessment & Plan (11/23/2024 1:10 PM CDT): - unclear baseline Cr with frequent hospitalizations, ~1.1-1.3 - Cr on admission 1.38--> now down to 1.04 - mcclelland, strict I/O - renal dose meds, avoid nephrotoxic agents Assessment & Plan (11/22/2024 12:21 PM CDT): - unclear baseline Cr with frequent hospitalizations, ~1.1-1.3 - Cr on admission 1.38--> now down to 1.04 - mcclelland, strict I/O - renal dose meds, avoid nephrotoxic agents Assessment & Plan (11/21/2024 3:38 PM CDT): - unclear baseline Cr with frequent hospitalizations, ~1.1-1.3 - Cr on admission 1.38--> now down to 1.04 - mcclelland, strict I/O - renal dose meds, avoid nephrotoxic agents Assessment & Plan (11/20/2024 3:42 PM CDT): - unclear baseline Cr with frequent hospitalizations, ~1.1-1.3 - Cr on admission 1.38--> now down to 1.04 - mcclelland, strict I/O - renal dose meds, avoid nephrotoxic agents Assessment & Plan (11/19/2024 12:57 PM CDT): - unclear baseline Cr with frequent hospitalizations, ~1.1-1.3 - Cr on admission 1.38--> now down to 1.04 - mcclelland, strict I/O - renal dose meds, avoid nephrotoxic agents Assessment & Plan (11/18/2024 6:00 PM CDT): - unclear baseline Cr with frequent hospitalizations, ~1.1-1.3 - Cr on admission 1.38 - mcclelland, strict I/O - renal dose meds, avoid nephrotoxic agents Chronic pain syndrome, pain plan 11/18/2024 Assessment & Plan (01/20/2025 1:08 PM CDT): Bad thigh calciphylaxis wounds. Seen by pain management and lately by palliative team - Meds: Calciphylaxis treatment, Lyrica, prn Oxycodone, 2nd line Dilaudid - can use pretreat for dressing changes, DC STEFF OXY and start Oxycontin 60 mg BID 12/09, Increase Lyrica to 100 mg BID 12/13, lyrica decreased to 50 mg BID 01/01- says it is for restless leg syndrome, doesn't help with pain -01/06 trial oxycontin 20mg BID and oxycodone 10mg q4 PRN for home -01/07-increase oxycontin to 40mg BID-ask Pain service to review - Pain Consulted for pain regimen-on oxycontin 40mg BID, oxy 10mg q4 PRN, lyrica 50mg BID, tylenol-no input and signed off - was on oxycontin 40mg BID and oxycodone 5mg QID PRN. 01/11 reduced to oxycontin 30mg BID-> 20mg BID 01/12 01/13- oxycontin increased to 30 mg BID , 01/13-01/19 : has been stable on current regimen - oxycontin PA after surgery Assessment & Plan (01/19/2025 8:40 PM CDT): Bad thigh calciphylaxis wounds. Seen by pain management and lately by palliative team - Meds: Calciphylaxis treatment, Lyrica, prn Oxycodone, 2nd line Dilaudid - can use pretreat for dressing changes, DC STEFF OXY and start Oxycontin 60 mg BID 12/09, Increase Lyrica to 100 mg BID 12/13, lyrica decreased to 50 mg BID 01/01- says it is for restless leg syndrome, doesn't help with pain -01/06 trial oxycontin 20mg BID and oxycodone 10mg q4 PRN for home -01/07-increase oxycontin to 40mg BID-ask Pain service to review - Pain Consulted for pain regimen-on oxycontin 40mg BID, oxy 10mg q4 PRN, lyrica 50mg BID, tylenol-no input and signed off - was on oxycontin 40mg BID and oxycodone 5mg QID PRN. 01/11 reduced to oxycontin 30mg BID-> 20mg BID 01/12 01/13- oxycontin increased to 30 mg BID , 01/13-01/19 : has been stable on current regimen - oxycontin PA after surgery Assessment & Plan (01/18/2025 3:27 PM CDT): Bad thigh calciphylaxis wounds. Seen by pain management and lately by palliative team - Meds: Calciphylaxis treatment, Lyrica, prn Oxycodone, 2nd line Dilaudid - can use pretreat for dressing changes, DC STEFF OXY and start Oxycontin 60 mg BID 12/09, Increase Lyrica to 100 mg BID 12/13, lyrica decreased to 50 mg BID 01/01- says it is for restless leg syndrome, doesn't help with pain -01/06 trial oxycontin 20mg BID and oxycodone 10mg q4 PRN for home -01/07-increase oxycontin to 40mg BID-ask Pain service to review - Pain Consulted for pain regimen-on oxycontin 40mg BID, oxy 10mg q4 PRN, lyrica 50mg BID, tylenol-no input and signed off-try to wean oxy to 5mg q4 PRN now back on oxycontin-with no established PCP, ?who will prescribe ongoing narcotics? Pain Service consulted to review-no input offered. Now on oxycontin 40mg BID and oxycodone 5mg QID PRN. 01/11 reduce to oxycontin 30mg BID-> 20mg BID 01/12 01/13- oxycontin increased to 30 mg BID , 01/13-01/18 : stable on current regimen Assessment & Plan (01/17/2025 2:32 PM CDT): Bad thigh calciphylaxis wounds. Seen by pain management and lately by palliative team - Meds: Calciphylaxis treatment, Lyrica, prn Oxycodone, 2nd line Dilaudid - can use pretreat for dressing changes, DC STEFF OXY and start Oxycontin 60 mg BID 12/09, Increase Lyrica to 100 mg BID 12/13, lyrica decreased to 50 mg BID 01/01- says it is for restless leg syndrome, doesn't help with pain -01/06 trial oxycontin 20mg BID and oxycodone 10mg q4 PRN for home -01/07-increase oxycontin to 40mg BID-ask Pain service to review - Pain Consulted for pain regimen-on oxycontin 40mg BID, oxy 10mg q4 PRN, lyrica 50mg BID, tylenol-no input and signed off-try to wean oxy to 5mg q4 PRN now back on oxycontin-with no established PCP, ?who will prescribe ongoing narcotics? Pain Service consulted to review-no input offered. Now on oxycontin 40mg BID and oxycodone 5mg QID PRN. 01/11 reduce to oxycontin 30mg BID-> 20mg BID 01/12 01/13- oxycontin increased to 30 mg BID , 01/13-01/16 : stable on current regimen Assessment & Plan (01/16/2025 9:26 PM CDT): Bad thigh calciphylaxis wounds. Seen by pain management and lately by palliative team - Meds: Calciphylaxis treatment, Lyrica, prn Oxycodone, 2nd line Dilaudid - can use pretreat for dressing changes, DC STEFF OXY and start Oxycontin 60 mg BID 12/09, Increase Lyrica to 100 mg BID 12/13, lyrica decreased to 50 mg BID 01/01- says it is for restless leg syndrome, doesn't help with pain -01/06 trial oxycontin 20mg BID and oxycodone 10mg q4 PRN for home -01/07-increase oxycontin to 40mg BID-ask Pain service to review - Pain Consulted for pain regimen-on oxycontin 40mg BID, oxy 10mg q4 PRN, lyrica 50mg BID, tylenol-no input and signed off-try to wean oxy to 5mg q4 PRN now back on oxycontin-with no established PCP, ?who will prescribe ongoing narcotics? Pain Service consulted to review-no input offered. Now on oxycontin 40mg BID and oxycodone 5mg QID PRN. 01/11 reduce to oxycontin 30mg BID-> 20mg BID 01/12 01/13- oxycontin increased to 30 mg BID , 01/13-01/16 : stable on current regimen Assessment & Plan (01/15/2025 9:08 PM CDT): Bad thigh calciphylaxis wounds. Seen by pain management and lately by palliative team - Meds: Calciphylaxis treatment, Lyrica, prn Oxycodone, 2nd line Dilaudid - can use pretreat for dressing changes, DC STEFF OXY and start Oxycontin 60 mg BID 12/09, Increase Lyrica to 100 mg BID 12/13, lyrica decreased to 50 mg BID 01/01- says it is for restless leg syndrome, doesn't help with pain -01/06 trial oxycontin 20mg BID and oxycodone 10mg q4 PRN for home -01/07-increase oxycontin to 40mg BID-ask Pain service to review - Pain Consulted for pain regimen-on oxycontin 40mg BID, oxy 10mg q4 PRN, lyrica 50mg BID, tylenol-no input and signed off-try to wean oxy to 5mg q4 PRN now back on oxycontin-with no established PCP, ?who will prescribe ongoing narcotics? Pain Service consulted to review-no input offered. Now on oxycontin 40mg BID and oxycodone 5mg QID PRN. 01/11 reduce to oxycontin 30mg BID-> 20mg BID 01/12. Assessment & Plan (01/14/2025 11:06 PM CDT): Bad thigh calciphylaxis wounds. Seen by pain management and lately by palliative team - Meds: Calciphylaxis treatment, Lyrica, prn Oxycodone, 2nd line Dilaudid - can use pretreat for dressing changes, DC STEFF OXY and start Oxycontin 60 mg BID 12/09, Increase Lyrica to 100 mg BID 12/13, lyrica decreased to 50 mg BID 01/01- says it is for restless leg syndrome, doesn't help with pain -01/06 trial oxycontin 20mg BID and oxycodone 10mg q4 PRN for home -01/07-increase oxycontin to 40mg BID-ask Pain service to review - Pain Consulted for pain regimen-on oxycontin 40mg BID, oxy 10mg q4 PRN, lyrica 50mg BID, tylenol-no input and signed off-try to wean oxy to 5mg q4 PRN now back on oxycontin-with no established PCP, ?who will prescribe ongoing narcotics? Pain Service consulted to review-no input offered. Now on oxycontin 40mg BID and oxycodone 5mg QID PRN. 01/11 reduce to oxycontin 30mg BID-> 20mg BID 01/12. Assessment & Plan (01/13/2025 8:04 PM CDT): Bad thigh calciphylaxis wounds. Seen by pain management and lately by palliative team - Meds: Calciphylaxis treatment, Lyrica, prn Oxycodone, 2nd line Dilaudid - can use pretreat for dressing changes, DC [facility] OXY and start Oxycontin 60 mg BID 12/09, Increase Lyrica to 100 mg BID 12/13, lyrica decreased to 50 mg BID 01/01- says it is for restless leg syndrome, doesn't help with pain -01/06 trial oxycontin 20mg BID and oxycodone 10mg q4 PRN for home -01/07-increase oxycontin to 40mg BID-ask Pain service to review - Pain Consulted for pain regimen-on oxycontin 40mg BID, oxy 10mg q4 PRN, lyrica 50mg BID, tylenol-no input and signed off-try to wean oxy to 5mg q4 PRN now back on oxycontin-with no established PCP, ?who will prescribe ongoing narcotics? Pain Service consulted to review-no input offered. Now on oxycontin 40mg BID and oxycodone 5mg QID PRN. 01/11 reduce to oxycontin 30mg BID-> 20mg BID 01/12. Assessment & Plan (01/12/2025 1:20 PM CDT): Bad thigh calciphylaxis wounds. Seen by pain management and lately by palliative team - Meds: Calciphylaxis treatment, Lyrica, prn Oxycodone, 2nd line Dilaudid - can use pretreat for dressing changes, DC [facility] OXY and start Oxycontin 60 mg BID 12/09, Increase Lyrica to 100 mg BID 12/13, lyrica decreased to 50 mg BID 01/01- says it is for restless leg syndrome, doesn't help with pain -01/06 trial oxycontin 20mg BID and oxycodone 10mg q4 PRN for home -01/07-increase oxycontin to 40mg BID-ask Pain service to review - Pain Consulted for pain regimen-on oxycontin 40mg BID, oxy 10mg q4 PRN, lyrica 50mg BID, tylenol-no input and signed off-try to wean oxy to 5mg q4 PRN now back on oxycontin-with no established PCP, ?who will prescribe ongoing narcotics? Pain Service consulted to review-no input offered. Now on oxycontin 40mg BID and oxycodone 5mg QID PRN. 01/11 reduce to oxycontin 30mg BID-> 20mg BID 01/12. Assessment & Plan (01/11/2025 12:31 PM CDT): Bad thigh calciphylaxis wounds. Seen by pain management and lately by palliative team - Meds: Calciphylaxis treatment, Lyrica, prn Oxycodone, 2nd line Dilaudid - can use pretreat for dressing changes, DC STEFF OXY and start Oxycontin 60 mg BID 12/09, Increase Lyrica to 100 mg BID 12/13, lyrica decreased to 50 mg BID 01/01- says it is for restless leg syndrome, doesn't help with pain -01/06 trial oxycontin 20mg BID and oxycodone 10mg q4 PRN for home -01/07-increase oxycontin to 40mg BID-ask Pain service to review - Pain Consulted for pain regimen-on oxycontin 40mg BID, oxy 10mg q4 PRN, lyrica 50mg BID, tylenol-no input and signed off-try to wean oxy to 5mg q4 PRN now back on oxycontin-with no established PCP, ?who will prescribe ongoing narcotics? Pain Service consulted to review-no input offered. Now on oxycontin 40mg BID and oxycodone 5mg QID PRN. 01/11 reduce to oxycontin 30mg BID. Assessment & Plan (01/10/2025 11:26 AM CDT): Bad thigh calciphylaxis wounds. Seen by pain management and lately by palliative team - Meds: Calciphylaxis treatment, Lyrica, prn Oxycodone, 2nd line Dilaudid - can use pretreat for dressing changes, DC [facility] OXY and start Oxycontin 60 mg BID 12/09, Increase Lyrica to 100 mg BID 12/13, lyrica decreased to 50 mg BID 01/01- says it is for restless leg syndrome, doesn't help with pain -01/06 trial oxycontin 20mg BID and oxycodone 10mg q4 PRN for home -01/07-increase oxycontin to 40mg BID-ask Pain service to review - Pain Consulted for pain regimen-on oxycontin 40mg BID, oxy 10mg q4 PRN, lyrica 50mg BID, tylenol-no input and signed off-try to wean oxy to 5mg q4 PRN now back on oxycontin-with no established PCP, ?who will prescribe ongoing narcotics? Pain Service consulted to review-no input offered. Now on oxycontin 40mg BID and oxycodone 5mg QID PRN Assessment & Plan (01/09/2025 11:58 AM CDT): Bad thigh calciphylaxis wounds. Seen by pain management and lately by palliative team - Meds: Calciphylaxis treatment, Lyrica, prn Oxycodone, 2nd line Dilaudid - can use pretreat for dressing changes, DC STEFF OXY and start Oxycontin 60 mg BID 12/09, Increase Lyrica to 100 mg BID 12/13, lyrica decreased to 50 mg BID 01/01- says it is for restless leg syndrome, doesn't help with pain -01/06 trial oxycontin 20mg BID and oxycodone 10mg q4 PRN for home -01/07-increase oxycontin to 40mg BID-ask Pain service to review - Pain Consulted for pain regimen-on oxycontin 40mg BID, oxy 10mg q4 PRN, lyrica 50mg BID, tylenol-no input and signed off-try to wean oxy to 5mg q4 PRN now back on oxycontin-with no established PCP, ?who will prescribe ongoing narcotics? Pain Service consulted to review-no input offered. Now on oxycontin 40mg BID and oxycodone 5mg QID PRN Assessment & Plan (01/08/2025 10:29 AM CDT): Bad thigh calciphylaxis wounds. Seen by pain management and lately by palliative team - Meds: Calciphylaxis treatment, Lyrica, prn Oxycodone, 2nd line Dilaudid - can use pretreat for dressing changes, DC STEFF OXY and start Oxycontin 60 mg BID 12/09, Increase Lyrica to 100 mg BID 12/13, lyrica decreased to 50 mg BID 01/01- says it is for restless leg syndrome, doesn't help with pain -01/06 trial oxycontin 20mg BID and oxycodone 10mg q4 PRN for home -01/07-increase oxycontin to 40mg BID-ask Pain service to review - Pain Consulted for pain regimen-on oxycontin 40mg BID, oxy 10mg q4 PRN, lyrica 50mg BID, tylenol-no input and signed off-try to wean oxy to 5mg q4 PRN now back on oxycontin-with no established PCP, ?who will prescribe ongoing narcotics? Assessment & Plan (01/07/2025 2:11 PM CDT): Bad thigh calciphylaxis wounds. Seen by pain management and lately by palliative team - Meds: Calciphylaxis treatment, Lyrica, prn Oxycodone, 2nd line Dilaudid - can use pretreat for dressing changes, DC STEFF OXY and start Oxycontin 60 mg BID 12/09, Increase Lyrica to 100 mg BID 12/13, lyrica decreased to 50 mg BID 01/01- says it is for restless leg syndrome, doesn't help with pain -01/06 trial oxycontin 20mg BID and oxycodone 10mg q4 PRN for home -01/07-increase oxycontin to 40mg BID-ask Pain service to review Assessment & Plan (01/06/2025 1:47 PM CDT): Bad thigh calciphylaxis wounds. Seen by pain management and lately by palliative team - Meds: Calciphylaxis treatment, Lyrica, prn Oxycodone, 2nd line Dilaudid - can use pretreat for dressing changes, DC STEFF OXY and start Oxycontin 60 mg BID 12/09, Increase Lyrica to 100 mg BID 12/13, lyrica decreased to 50 mg BID 01/01- says it is for restless leg syndrome, doesn't help with pain -01/06 trial oxycontin 20mg BID and oxycodone 5mg q4 PRN for home Assessment & Plan (01/05/2025 8:19 PM CDT): Bad thigh calciphylaxis wounds. Seen by pain management and lately by palliative team - Meds: Calciphylaxis treatment, Lyrica, prn Oxycodone, 2nd line Dilaudid - can use pretreat for dressing changes, DC STEFF OXY and start Oxycontin 60 mg BID 12/09, Increase Lyrica to 100 mg BID 12/13, lyrica decreased to 50 mg BID 01/01- says it is for restless leg syndrome, doesn't help with pain Assessment & Plan (01/04/2025 2:44 PM CDT): Bad thigh calciphylaxis wounds. Seen by pain management and lately by palliative team - Meds: Calciphylaxis treatment, Lyrica, prn Oxycodone, 2nd line Dilaudid - can use pretreat for dressing changes, DC STEFF OXY and start Oxycontin 60 mg BID 12/09, Increase Lyrica to 100 mg BID 12/13, lyrica decreased to 50 mg BID 01/01- says it is for restless leg syndrome, doesn't help with pain Assessment & Plan (01/03/2025 6:12 PM CDT): Bad thigh calciphylaxis wounds. Seen by pain management and lately by palliative team - Meds: Calciphylaxis treatment, Lyrica, prn Oxycodone, 2nd line Dilaudid - can use pretreat for dressing changes, DC STEFF OXY and start Oxycontin 60 mg BID 12/09, Increase Lyrica to 100 mg BID 12/13, lyrica decreased to 50 mg BID 01/01- says it is for restless leg syndrome, doesn't help with pain Assessment & Plan (01/02/2025 7:31 PM CDT): Bad thigh calciphylaxis wounds. Seen by pain management and lately by palliative team - Meds: Calciphylaxis treatment, Lyrica, prn Oxycodone, 2nd line Dilaudid - can use pretreat for dressing changes, DC STEFF OXY and start Oxycontin 60 mg BID 12/09, Increase Lyrica to 100 mg BID 12/13 Assessment & Plan (01/01/2025 6:42 PM CDT): Bad thigh calciphylaxis wounds. Seen by pain management and lately by palliative team - Meds: Calciphylaxis treatment, Lyrica, prn Oxycodone, 2nd line Dilaudid - can use pretreat for dressing changes, DC [facility]FF OXY and start Oxycontin 60 mg BID 12/09, Increase Lyrica to 100 mg BID 12/13 Assessment & Plan (12/31/2024 6:52 PM CDT): Bad thigh calciphylaxis wounds. Seen by pain management and lately by palliative team - Meds: Calciphylaxis treatment, Lyrica, prn Oxycodone, 2nd line Dilaudid - can use pretreat for dressing changes, DC STEFF OXY and start Oxycontin 60 mg BID 12/09, Increase Lyrica to 100 mg BID 12/13 Assessment & Plan (12/30/2024 4:26 PM CDT): Bad thigh calciphylaxis wounds. Seen by pain management and lately by palliative team - Meds: Calciphylaxis treatment, Lyrica, prn Oxycodone, 2nd line Dilaudid - can use pretreat for dressing changes, DC STEFF OXY and start Oxycontin 60 mg BID 12/09, Increase Lyrica to 100 mg BID 12/13 Assessment & Plan (12/29/2024 10:35 AM CDT): Bad thigh calciphylaxis wounds. Seen by pain management and lately by palliative team - Meds: Calciphylaxis treatment, Lyrica, prn Oxycodone, 2nd line Dilaudid - can use pretreat for dressing changes, DC STEFF OXY and start Oxycontin 60 mg BID 12/09, Increase Lyrica to 100 mg BID 12/13 Assessment & Plan (12/28/2024 11:23 AM CDT): Bad thigh calciphylaxis wounds. Seen by pain management and lately by palliative team - Meds: Calciphylaxis treatment, Lyrica, prn Oxycodone, 2nd line Dilaudid - can use pretreat for dressing changes, DC STEFF OXY and start Oxycontin 60 mg BID 12/09, Increase Lyrica to 100 mg BID 12/13 Assessment & Plan (12/27/2024 10:44 AM CDT): Bad thigh calciphylaxis wounds. Seen by pain management and lately by palliative team - Meds: Calciphylaxis treatment, Lyrica, prn Oxycodone, 2nd line Dilaudid - can use pretreat for dressing changes, DC [facility] OXY and start Oxycontin 60 mg BID 12/09, Increase Lyrica to 100 mg BID 12/13 Assessment & Plan (12/26/2024 1:28 PM CDT): Bad thigh calciphylaxis wounds. Seen by pain management and lately by palliative team - Meds: Calciphylaxis treatment, Lyrica, prn Oxycodone, 2nd line Dilaudid - can use pretreat for dressing changes, DC STEFF OXY and start Oxycontin 60 mg BID 12/09, Increase Lyrica to 100 mg BID 12/13 Assessment & Plan (12/25/2024 1:36 PM CDT): Bad thigh calciphylaxis wounds. Seen by pain management and lately by palliative team - Meds: Calciphylaxis treatment, Lyrica, prn Oxycodone, 2nd line Dilaudid - can use pretreat for dressing changes, DC STEFF OXY and start Oxycontin 60 mg BID 12/09, Increase Lyrica to 100 mg BID 12/13 Assessment & Plan (12/24/2024 12:30 PM CDT): Bad thigh calciphylaxis wounds. Seen by pain management and lately by palliative team - Meds: Calciphylaxis treatment, Lyrica, prn Oxycodone, 2nd line Dilaudid - can use pretreat for dressing changes, DC STEFF OXY and start Oxycontin 60 mg BID 12/09, Increase Lyrica to 100 mg BID 12/13 Assessment & Plan (12/23/2024 12:16 PM CDT): Bad thigh calciphylaxis wounds. Seen by pain management and lately by palliative team - Meds: Calciphylaxis treatment, Lyrica, prn Oxycodone, 2nd line Dilaudid - can use pretreat for dressing changes, DC STEFF OXY and start Oxycontin 60 mg BID 12/09, Increase Lyrica to 100 mg BID 12/13 Assessment & Plan (12/22/2024 7:49 AM CDT): Bad thigh calciphylaxis wounds. Seen by pain management and lately by palliative team - Meds: Calciphylaxis treatment, Lyrica, prn Oxycodone, 2nd line Dilaudid - can use pretreat for dressing changes, DC STEFF OXY and start Oxycontin 60 mg BID 12/09, Increase Lyrica to 100 mg BID 12/13 Assessment & Plan (12/21/2024 8:31 AM CDT): Bad thigh calciphylaxis wounds. Seen by pain management and lately by palliative team - Meds: Calciphylaxis treatment, Lyrica, prn Oxycodone, 2nd line Dilaudid - can use pretreat for dressing changes, DC STEFF OXY and start Oxycontin 60 mg BID 12/09, Increase Lyrica to 100 mg BID 12/13 Assessment & Plan (12/20/2024 9:08 AM CDT): Bad thigh calciphylaxis wounds. Seen by pain management and lately by palliative team - Meds: Calciphylaxis treatment, Lyrica, prn Oxycodone, 2nd line Dilaudid - can use pretreat for dressing changes, DC STEFF OXY and start Oxycontin 60 mg BID 12/09, Increase Lyrica to 100 mg BID 12/13 Assessment & Plan (12/19/2024 7:54 AM CDT): Bad thigh calciphylaxis wounds. Seen by pain management and lately by palliative team - Meds: Calciphylaxis treatment, Lyrica, prn Oxycodone, 2nd line Dilaudid - can use pretreat for dressing changes, DC STEFF OXY and start Oxycontin 60 mg BID 12/09, Increase Lyrica to 100 mg BID 12/13 Assessment & Plan (12/18/2024 8:14 AM CDT): Bad thigh calciphylaxis wounds. Seen by pain management and lately by palliative team - Meds: Calciphylaxis treatment, Lyrica, prn Oxycodone, 2nd line Dilaudid - can use pretreat for dressing changes, DC STEFF OXY and start Oxycontin 60 mg BID 12/09, Increase Lyrica to 100 mg BID 12/13 Assessment & Plan (12/17/2024 1:15 PM CDT): Bad thigh calciphylaxis wounds. Seen by pain management and lately by palliative team - Meds: Calciphylaxis treatment, Lyrica, prn Oxycodone, 2nd line Dilaudid - can use pretreat for dressing changes, DC STEFF OXY and start Oxycontin 60 mg BID 12/09, Increase Lyrica to 100 mg BID 12/13 Assessment & Plan (12/16/2024 2:46 PM CDT): Bad thigh calciphylaxis wounds. Seen by pain management and lately by palliative team - Meds: Calciphylaxis treatment, Lyrica, prn Oxycodone, 2nd line Dilaudid - can use pretreat for dressing changes, DC STEFF OXY and start Oxycontin 60 mg BID 12/09, Increase Lyrica to 100 mg BID 12/13 Assessment & Plan (12/15/2024 12:46 PM CDT): Bad thigh calciphylaxis wounds. Seen by pain management and lately by palliative team - Meds: Calciphylaxis treatment, Lyrica, prn Oxycodone, 2nd line Dilaudid - can use pretreat for dressing changes, DC STEFF OXY and start Oxycontin 60 mg BID 12/09, Increase Lyrica to 100 mg BID 12/13 Assessment & Plan (12/14/2024 10:58 AM CDT): Bad thigh calciphylaxis wounds. Seen by pain management and lately by palliative team - Meds: Calciphylaxis treatment, Lyrica, prn Oxycodone, 2nd line Dilaudid - can use pretreat for dressing changes, DC STEFF OXY and start Oxycontin 60 mg BID 12/09, Increase Lyrica to 100 mg BID 12/13 Assessment & Plan (12/13/2024 1:19 PM CDT): Bad thigh calciphylaxis wounds. Seen by pain management and lately by palliative team - Meds: Calciphylaxis treatment, Lyrica, prn Oxycodone, 2nd line Dilaudid - can use pretreat for dressing changes, DC STEFF OXY and start Oxycontin 60 mg BID 12/09, Increase Lyrica to 100 mg BID 12/13 Assessment & Plan (12/12/2024 2:48 PM CDT): Bad thigh calciphylaxis wounds. Seen by pain management and lately by palliative team - Meds: Calciphylaxis treatment, Lyrica, prn Oxycodone, 2nd line Dilaudid - can use pretreat for dressing changes, Oxycontin BID. Increase Lyrica to 100 mg BID 12/12 Assessment & Plan (12/11/2024 8:52 PM CDT): Bad thigh calciphylaxis wounds. Seen by pain management and lately by palliative team - Meds: Calciphylaxis treatment, Lyrica, prn Oxycodone, 2nd line Dilaudid - can use pretreat for dressing changes, Oxycontin BID Assessment & Plan (12/10/2024 3:41 PM CDT): Acute on chronic pain. Pain management signed off. Have been trying to play with various medications, but patient is dependent on IV opiates for more immediate relief in order to tolerate therapy and dressing changes - Lyrica 75mg bid - decrease robaxin from 1500 to 1000 tid ->> 500 tid x3 more doses and then stop - stop amitriptyline (in setting of tedizolid) - opiates Fentanyl patch - 25->50mcg. Appears to have been chosen due to not wanting to choose an extended release Oxycodone 10mg q6hr -> adding 10mg q4hr prn 1st line. I don't think the oral oxycodone is enough, so will schedule additional prn's prior to using IV pushes Hydromorphone 0.5mg -> most worrisome, as these are high doses to tolerate standard procedures. Will keep for now as we titrate other medications - plan, keep iv dilaudid for therapy and dressing changes, 12/04-, plan to decrease usage. 12/08 - we had discussed weaning the IV dilaudid to 0.2mg IV, but this was a very emotional conversation discussing end of life care. I recommend decreasing dilaudid to 0.2mg iv with pt and dressing changes for 12/09 -12/09 Per palliative start Oxycontin 60 BID, DC Steff Oxycodone and Fentanyl -Improved pain control but probably causing N/V, will pretreat with Zofran prior to Oxycontin would not be ideal to dc as helping with pain so far Assessment & Plan (12/09/2024 2:27 PM CDT): Acute on chronic pain. Pain management signed off. Have been trying to play with various medications, but patient is dependent on IV opiates for more immediate relief in order to tolerate therapy and dressing changes - Lyrica 75mg bid - decrease robaxin from 1500 to 1000 tid ->> 500 tid x3 more doses and then stop - stop amitriptyline (in setting of tedizolid) - opiates Fentanyl patch - 25->50mcg. Appears to have been chosen due to not wanting to choose an extended release Oxycodone 10mg q6hr -> adding 10mg q4hr prn 1st line. I don't think the oral oxycodone is enough, so will schedule additional prn's prior to using IV pushes Hydromorphone 0.5mg -> most worrisome, as these are high doses to tolerate standard procedures. Will keep for now as we titrate other medications - plan, keep iv dilaudid for therapy and dressing changes, 12/04-, plan to decrease usage. 12/08 - we had discussed weaning the IV dilaudid to 0.2mg IV, but this was a very emotional conversation discussing end of life care. I recommend decreasing dilaudid to 0.2mg iv with pt and dressing changes for 12/09 -12/09 Per palliative start Oxycontin 60 BID, DC Steff Oxycodone and Fentanyl Assessment & Plan (12/08/2024 3:28 PM CDT): Acute on chronic pain. Pain management signed off. Have been trying to play with various medications, but patient is dependent on IV opiates for more immediate relief in order to tolerate therapy and dressing changes - Lyrica 75mg bid - decrease robaxin from 1500 to 1000 tid ->> 500 tid x3 more doses and then stop - stop amitriptyline (in setting of tedizolid) - opiates Fentanyl patch - 25->50mcg. Appears to have been chosen due to not wanting to choose an extended release Oxycodone 10mg q6hr -> adding 10mg q4hr prn 1st line. I don't think the oral oxycodone is enough, so will schedule additional prn's prior to using IV pushes Hydromorphone 0.5mg -> most worrisome, as these are high doses to tolerate standard procedures. Will keep for now as we titrate other medications - plan, keep iv dilaudid for therapy and dressing changes, 12/04-, plan to decrease usage. 12/08 - we had discussed weaning the IV dilaudid to 0.2mg IV, but this was a very emotional conversation discussing end of life care. I recommend decreasing dilaudid to 0.2mg iv with pt and dressing changes for 12/09 Assessment & Plan (12/07/2024 1:18 PM CDT): Acute on chronic pain. Pain management signed off. Have been trying to play with various medications, but patient is dependent on IV opiates for more immediate relief in order to tolerate therapy and dressing changes - Lyrica 75mg bid - decrease robaxin from 1500 to 1000 tid ->> 500 tid x3 more doses and then stop - stop amitriptyline (in setting of tedizolid) - opiates Fentanyl patch - 25->50mcg. Appears to have been chosen due to not wanting to choose an extended release Oxycodone 10mg q6hr -> adding 10mg q4hr prn 1st line. I don't think the oral oxycodone is enough, so will schedule additional prn's prior to using IV pushes Hydromorphone 0.5mg -> most worrisome, as these are high doses to tolerate standard procedures. Will keep for now as we titrate other medications - plan, keep iv dilaudid for therapy and dressing changes, 12/04-, plan to decrease usage. Assessment & Plan (12/06/2024 2:19 PM CDT): Acute on chronic pain. Pain management signed off. Have been trying to play with various medications, but patient is dependent on IV opiates for more immediate relief in order to tolerate therapy and dressing changes - Lyrica 75mg bid - decrease robaxin from 1500 to 1000 tid ->> 500 tid x3 more doses and then stop - stop amitriptyline (in setting of tedizolid) - opiates Fentanyl patch - 25->50mcg. Appears to have been chosen due to not wanting to choose an extended release Oxycodone 10mg q6hr -> adding 10mg q4hr prn 1st line. I don't think the oral oxycodone is enough, so will schedule additional prn's prior to using IV pushes Hydromorphone 0.5mg -> most worrisome, as these are high doses to tolerate standard procedures. Will keep for now as we titrate other medications - plan, keep iv dilaudid for therapy and dressing changes, 12/04-, plan to decrease usage. Assessment & Plan (12/05/2024 4:47 PM CDT): Acute on chronic pain. Pain management signed off. Have been trying to play with various medications, but patient is dependent on IV opiates for more immediate relief in order to tolerate therapy and dressing changes - Lyrica 75mg bid - decrease robaxin from 1500 to 1000 tid ->> 500 tid x3 more doses and then stop - stop amitriptyline (in setting of tedizolid) - opiates Fentanyl patch - 25->50mcg. Appears to have been chosen due to not wanting to choose an extended release Oxycodone 10mg q6hr -> adding 10mg q4hr prn 1st line. I don't think the oral oxycodone is enough, so will schedule additional prn's prior to using IV pushes Hydromorphone 0.5mg -> most worrisome, as these are high doses to tolerate standard procedures. Will keep for now as we titrate other medications - plan, keep iv dilaudid for therapy and dressing changes, 12/04-, plan to decrease usage. Assessment & Plan (12/04/2024 2:08 PM CDT): Acute on chronic pain. Pain management signed off. Have been trying to play with various medications, but patient is dependent on IV opiates for more immediate relief in order to tolerate therapy and dressing changes - Lyrica 75mg bid - decrease robaxin from 1500 to 1000 tid ->> 500 tid x3 more doses and then stop - stop amitriptyline (in setting of tedizolid) - opiates Fentanyl patch - 25->50mcg. Appears to have been chosen due to not wanting to choose an extended release Oxycodone 10mg q6hr -> adding 10mg q4hr prn 1st line. I don't think the oral oxycodone is enough, so will schedule additional prn's prior to using IV pushes Hydromorphone 0.5mg -> most worrisome, as these are high doses to tolerate standard procedures. Will keep for now as we titrate other medications - plan, keep iv dilaudid for therapy and dressing changes, 12/04-, plan to decrease usage. Assessment & Plan (12/03/2024 6:06 PM CDT): Acute on chronic pain. Pain management signed off. Have been trying to play with various medications, but patient is dependent on IV opiates for more immediate relief in order to tolerate therapy and dressing changes - Lyrica 75mg bid - decrease robaxin from 1500 to 100 tid - stop amitriptyline (in setting of tedizolid) - opiates Fentanyl patch - 25->50mcg. Appears to have been chosen due to not wanting to choose an extended release. Oxycodone 10mg q6hr -> adding 10mg q4hr prn 1st line. I don't think the oral oxycodone is enough, so will schedule additional prn's prior to using IV pushes Hydromorphone 0.5mg -> most worrisome, as these are high doses to tolerate standard procedures. Will keep for now as we titrate other medications Assessment & Plan (12/02/2024 2:26 PM CDT): Acute on chronic pain. Pain management signed off. - gabapentin 900->600 tid due to renal impairment - amitriptyline 25 mg nightly held while on tedizolid - robaxin 1500 mg TID - oxycodone 5 mg q6h scheduled + 10 mg q6h prn - dilaudid 0.2 mg q3h prn-DC and encourage use of oxycodone instead - dilaudid 0.5 prn daily for wound changes - 11/28 DC scheduled oxycodone-cont oxy 10mg q4 PRN. - 11/29 add fentanyl patch 25mcg and reduce IV dilaudid with dressing changes to 0.2mg IV and monitor. Patient has been refusing gabapentin capsule -refuses to try liquid, trial lyrica 75mg BID -reassessed pain as holding back rehab-change to oxy 10mg QID and dilaudid 0.5mg IV qid PRN and consider pain service consult Assessment & Plan (12/01/2024 9:54 AM CDT): Acute on chronic pain. Pain management signed off. - gabapentin 900->600 tid due to renal impairment - amitriptyline 25 mg nightly held while on tedizolid - robaxin 1500 mg TID - oxycodone 5 mg q6h scheduled + 10 mg q6h prn - dilaudid 0.2 mg q3h prn-DC and encourage use of oxycodone instead - dilaudid 0.5 prn daily for wound changes - 8 DC scheduled oxycodone-cont oxy 10mg q4 PRN. - 11/29 add fentanyl patch 25mcg and reduce IV dilaudid with dressing changes to 0.2mg IV and monitor. Patient has been refusing gabapentin capsule -refuses to try liquid, trial lyrica 75mg BID -reassessed pain as holding back rehab-change to oxy 10mg QID and dilaudid 0.5mg IV qid PRN and consider pain service consult Assessment & Plan (11/30/2024 1:01 PM CDT): Acute on chronic pain. Pain management signed off. - gabapentin 900->600 tid due to renal impairment - amitriptyline 25 mg nightly held while on tedizolid - robaxin 1500 mg TID - oxycodone 5 mg q6h scheduled + 10 mg q6h prn - dilaudid 0.2 mg q3h prn-DC and encourage use of oxycodone instead - dilaudid 0.5 prn daily for wound changes - 11/28 DC scheduled oxycodone-cont oxy 10mg q4 PRN. - 11/29 add fentanyl patch 25mcg and reduce IV dilaudid with dressing changes to 0.2mg IV and monitor. Patient has been refusing gabapentin capsule -refuses to try liquid, trial lyrica 75mg BID -reassessed pain as holding back rehab-change to oxy 10mg QID and dilaudid 0.5mg IV qid PRN and consider pain service consult Assessment & Plan (11/29/2024 11:20 AM CDT): Acute on chronic pain. Pain management signed off. - gabapentin 900->600 tid due to renal impairment - amitriptyline 25 mg nightly held while on tedizolid - robaxin 1500 mg TID - oxycodone 5 mg q6h scheduled + 10 mg q6h prn - dilaudid 0.2 mg q3h prn-DC and encourage use of oxycodone instead - dilaudid 0.5 prn daily for wound changes - 11/28 DC scheduled oxycodone-cont oxy 10mg q4 PRN. - 11/29 add fentanyl patch 25mcg and reduce IV dilaudid with dressing changes to 0.2mg IV and monitor. Patient has been refusing gabapentin capsule -refuses to try liquid, trial lyrica 75mg BID Assessment & Plan (11/28/2024 1:42 PM CDT): Acute on chronic pain. Pain management signed off. - gabapentin 900->600 tid due to renal impairment - amitriptyline 25 mg nightly held while on tedizolid - robaxin 1500 mg TID - oxycodone 5 mg q6h scheduled + 10 mg q6h prn - dilaudid 0.2 mg q3h prn-DC and encourage use of oxycodone instead - dilaudid 0.5 prn daily for wound changes - 11/28 DC scheduled oxycodone-cont oxy 10mg q4 PRN. Assessment & Plan (11/27/2024 10:16 AM CDT): Acute on chronic pain. Pain management signed off. - gabapentin 900->600 tid due to renal impairment - amitriptyline 25 mg nightly held while on tedizolid - robaxin 1500 mg TID - oxycodone 5 mg q6h scheduled + 10 mg q6h prn - dilaudid 0.2 mg q3h prn-DC and encourage use of oxycodone instead - dilaudid 0.5 prn daily for wound changes Assessment & Plan (11/26/2024 12:13 PM CDT): Acute on chronic pain. Pain management signed off. - gabapentin 900->600 tid due to renal impairment - amitriptyline 25 mg nightly held while on tedizolid - robaxin 1500 mg TID - oxycodone 5 mg q6h scheduled + 10 mg q6h prn - dilaudid 0.2 mg q3h prn-DC and encourage use of oxycodone instead - dilaudid 0.5 prn daily for wound changes Assessment & Plan (11/25/2024 3:35 PM CDT): Acute on chronic pain. Pain management signed off. - gabapentin 900->600 tid due to renal impairment, but can likely go back up - amitriptyline 25 mg nightly held while on linezolid - robaxin 1500 mg TID - oxycodone 5 mg q6h scheduled + 10 mg q6h prn - dilaudid 0.2 mg q3h prn - dilaudid 0.5 prn daily for wound changes - discussed weaning opiates and caused additional anxiety Assessment & Plan (11/24/2024 8:49 AM CDT): Acute on chronic pain. Pain management signed off. - gabapentin 900->600 tid due to renal impairment, but can likely go back up - amitriptyline 25 mg nightly held while on linezolid - robaxin 1500 mg TID - oxycodone 5 mg q6h scheduled + 10 mg q6h prn - dilaudid 0.2 mg q3h prn - dilaudid 0.5 prn daily for wound changes -discussed weaning opiates and caused additional anxiety Assessment & Plan (11/23/2024 8:59 PM CDT): Acute on chronic pain. Pain management signed off. - gabapentin 900->600 tid due to renal impairment, but can likely go back up - amitriptyline 25 mg nightly held while on linezolid - robaxin 1500 mg TID - oxycodone 5 mg q6h scheduled + 10 mg q6h prn - dilaudid 0.2 mg q3h prn - dilaudid 0.5 prn daily for wound changes -discussed weaning opiates and caused additional anxiety Assessment & Plan (11/22/2024 12:21 PM CDT): Acute on chronic pain. Pain management signed off. - gabapentin 900->600 tid due to renal impairment, but can likely go back up - amitriptyline 25 mg nightly held while on linezolid - robaxin 1500 mg TID Opiates: we will discuss weaning opiates - oxycodone 5 mg q6h scheduled + 10 mg q6h prn - dilaudid 0.2 mg q3h prn - dilaudid 0.5 prn daily for wound changes Assessment & Plan (11/21/2024 3:38 PM CDT): Acute on chronic pain. Pain management signed off. - gabapentin 900->600 tid due to renal impairment, but can likely go back up - amitriptyline 25 mg nightly held while on linezolid - robaxin 1500 mg TID Opiates: we will discuss weaning opiates - oxycodone 5 mg q6h scheduled + 10 mg q6h prn - dilaudid 0.2 mg q3h prn - dilaudid 0.5 prn daily for wound changes Assessment & Plan (11/20/2024 3:42 PM CDT): - Acute on chronic pain - pain management team signed off - gabapentin 900 mg TID - amitriptyline 25 mg nightly held while on linezolid - robaxin 1000 mg TID - oxycodone 5 mg q6h scheduled + 10 mg q6h prn - dilaudid 0.5 mg q3h prn Assessment & Plan (11/19/2024 12:57 PM CDT): - Acute on chronic pain - pain management team signed off - gabapentin 900 mg TID - amitriptyline 25 mg nightly held while on linezolid - robaxin 1000 mg TID - oxycodone 5 mg q6h scheduled + 10 mg q6h prn - dilaudid 0.5 mg q3h prn Assessment & Plan (11/18/2024 6:00 PM CDT): - Acute on chronic pain - pain management team signed off - gabapentin 900 mg TID - amitriptyline 25 mg nightly held while on linezolid - robaxin 1000 mg TID - oxycodone 5 mg q6h scheduled + 10 mg q6h prn - dilaudid 0.5 mg q3h prn Colovesical fistula 11/18/2024 Assessment & Plan (01/21/2025 2:55 PM CDT): 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 She was re-admitted 10/31 with recurrent fever, nausea, and vomiting with LLQ abdominal pain. CT imaging continued to demonstrate acute on chronic sequela of diverticulitis similar to prior exams. She was continued on amoxicillin-clavulanate and tedizolid was switched to linezolid (10/30-). She was scheduled to undergo exploratory laparotomy, takedown of colovesical fistula, sigmoidectomy, and possible colostomy and preoperative stent placement but the procedure was aborted due to cardiac arrest during induction during which difficult airway ended up requiring emergency cric. She then underwent trach which has since been decannulated but amidst her long PCU stay, decision made to defer surgery w/ CRS during present hospitalization. CRS re-evaluated and took her to the OR 01/20 for sigmoid resection for takedown of colovesicular fistula, omentum tacked to pelvis to cover fistula to bladder with CRS Recommendations: - Continue amoxicillin-clavulanate 875-125 mg q12 hours and tedizolid 200 mg qday for 72rs from surgery and then stop - No ID follow up needed Assessment & Plan (01/20/2025 1:08 PM CDT): Multiple prior admissions- last discharged on 10/22/24 with plans for o/p colonoscopy on suppressive antibiotics. Colonoscopy this admission (11/03) with evidence of extrinsic compression, no fistula appreciated, unable to intubate cecal base. Was scheduled for exploratory laparotomy, takedown of colovesical fistula, sigmoidectomy, and possible colostomy and preoperative stent placement. The procedure was aborted due to cardiac arrest during intubation-lost airway visualization 2/2 bleeding and needed emergency cric. - Too sick and debilitated to proceed with surgery inpatient per multiple discussion with CRS - CT abdomen noncontrast 12/14: Severe hepatic steatosis. acute component of diverticulitis and additional area of fistulization to the sigmoid colon on series 3 image 236; colorectal surgery notified --> NO change in plan. S/p Cefe, metronidazole (12/12-12/21) - DC TPN 12/26 with fungal infection. - d/w [facility]S resident 01/05- will schedule o/p appointment - 01/16- planned for surgery on 01/20 Assessment & Plan (01/19/2025 8:40 PM CDT): Multiple prior admissions- last discharged on 10/22/24 with plans for o/p colonoscopy on suppressive antibiotics. Colonoscopy this admission (11/03) with evidence of extrinsic compression, no fistula appreciated, unable to intubate cecal base. Was scheduled for exploratory laparotomy, takedown of colovesical fistula, sigmoidectomy, and possible colostomy and preoperative stent placement. The procedure was aborted due to cardiac arrest during intubation-lost airway visualization 2/2 bleeding and needed emergency cric. - Too sick and debilitated to proceed with surgery inpatient per multiple discussion with CRS - CT abdomen noncontrast 12/14: Severe hepatic steatosis. acute component of diverticulitis and additional area of fistulization to the sigmoid colon on series 3 image 236; colorectal surgery notified --> NO change in plan. S/p Cefe, metronidazole (12/12-12/21) - DC TPN 12/26 with fungal infection. - - d/w [facility] resident 01/05- will schedule o/p appointment - 01/16- planned for surgery on 01/20 - see above , npo at midnight, CLD today, evening ppx heparin held Assessment & Plan (01/18/2025 3:27 PM CDT): Multiple prior admissions- last discharged on 10/22/24 with plans for o/p colonoscopy on suppressive antibiotics. Colonoscopy this admission (11/03) with evidence of extrinsic compression, no fistula appreciated, unable to intubate cecal base. Was scheduled for exploratory laparotomy, takedown of colovesical fistula, sigmoidectomy, and possible colostomy and preoperative stent placement. The procedure was aborted due to cardiac arrest during intubation-lost airway visualization 2/2 bleeding and needed emergency cric. - Too sick and debilitated to proceed with surgery inpatient per multiple discussion with CRS; discussions been made with patient and - Continue TPN, antibiotics as noted above - d/w [facility] resident 01/05- will schedule o/p appointment - CT abdomen noncontrast 12/14: Severe hepatic steatosis. acute component of diverticulitis and additional area of fistulization to the sigmoid colon on series 3 image 236; colorectal surgery notified --> NO change in plan. S/p Cefe, metronidazole (12/12-12/21) - DC TPN / with fungal infection. - 01/16- see above Assessment & Plan (01/17/2025 2:32 PM CDT): Multiple prior admissions- last discharged on 10/22/24 with plans for o/p colonoscopy on suppressive antibiotics. Colonoscopy this admission (11/03) with evidence of extrinsic compression, no fistula appreciated, unable to intubate cecal base. Was scheduled for exploratory laparotomy, takedown of colovesical fistula, sigmoidectomy, and possible colostomy and preoperative stent placement. The procedure was aborted due to cardiac arrest during intubation-lost airway visualization 2/2 bleeding and needed emergency cric. - Too sick and debilitated to proceed with surgery inpatient per multiple discussion with CRS; discussions been made with patient and - Continue TPN, antibiotics as noted above - d/w [facility] resident 01/05- will schedule o/p appointment - CT abdomen noncontrast 12/14: Severe hepatic steatosis. acute component of diverticulitis and additional area of fistulization to the sigmoid colon on series 3 image 236; colorectal surgery notified --> NO change in plan. S/p Cefe, metronidazole (12/12-12/21) - DC TPN 12/26 with fungal infection. - 01/16- see above Assessment & Plan (01/16/2025 9:26 PM CDT): Multiple prior admissions- last discharged on 10/22/24 with plans for o/p colonoscopy on suppressive antibiotics. Colonoscopy this admission (11/03) with evidence of extrinsic compression, no fistula appreciated, unable to intubate cecal base. Was scheduled for exploratory laparotomy, takedown of colovesical fistula, sigmoidectomy, and possible colostomy and preoperative stent placement. The procedure was aborted due to cardiac arrest during intubation-lost airway visualization 2/2 bleeding and needed emergency cric. - Too sick and debilitated to proceed with surgery inpatient per multiple discussion with CRS; discussions been made with patient and - Continue TPN, antibiotics as noted above - d/w [facility] resident 01/05- will schedule o/p appointment - CT abdomen noncontrast 12/14: Severe hepatic steatosis. acute component of diverticulitis and additional area of fistulization to the sigmoid colon on series 3 image 236; colorectal surgery notified --> NO change in plan. S/p Cefe, metronidazole (12/12-12/21) - DC TPN 9/ with fungal infection. - 01/16- see above Assessment & Plan (01/15/2025 9:08 PM CDT): Multiple prior admissions- last discharged on 10/22/24 with plans for o/p colonoscopy on suppressive antibiotics. Colonoscopy this admission (11/03) with evidence of extrinsic compression, no fistula appreciated, unable to intubate cecal base. Was scheduled for exploratory laparotomy, takedown of colovesical fistula, sigmoidectomy, and possible colostomy and preoperative stent placement. The procedure was aborted due to cardiac arrest during intubation-lost airway visualization 2/2 bleeding and needed emergency cric. - Too sick and debilitated to proceed with surgery inpatient per multiple discussion with CRS; discussions been made with patient and - Continue TPN, antibiotics as noted above - d/w [facility] resident 01/05- will schedule o/p appointment - CT abdomen noncontrast 12/14: Severe hepatic steatosis. acute component of diverticulitis and additional area of fistulization to the sigmoid colon on series 3 image 236; colorectal surgery notified --> NO change in plan. S/p Cefe, metronidazole (12/12-12/21) - DC TPN 12/26 with fungal infection. Discussed with CRS. Can resume oral diet as no planned surgery at this time Assessment & Plan (01/14/2025 11:06 PM CDT): Multiple prior admissions- last discharged on 10/22/24 with plans for o/p colonoscopy on suppressive antibiotics. Colonoscopy this admission (11/03) with evidence of extrinsic compression, no fistula appreciated, unable to intubate cecal base. Was scheduled for exploratory laparotomy, takedown of colovesical fistula, sigmoidectomy, and possible colostomy and preoperative stent placement. The procedure was aborted due to cardiac arrest during intubation-lost airway visualization 2/2 bleeding and needed emergency cric. - Too sick and debilitated to proceed with surgery inpatient per multiple discussion with CRS; discussions been made with patient and - Continue TPN, antibiotics as noted above - d/w [facility] resident 01/05- will schedule o/p appointment - CT abdomen noncontrast 12/14: Severe hepatic steatosis. acute component of diverticulitis and additional area of fistulization to the sigmoid colon on series 3 image 236; colorectal surgery notified --> NO change in plan. S/p Cefe, metronidazole (12/12-12/21) - DC TPN 9/ with fungal infection. Discussed with CRS. Can resume oral diet as no planned surgery at this time Assessment & Plan (01/13/2025 8:04 PM CDT): Multiple prior admissions- last discharged on 10/22/24 with plans for o/p colonoscopy on suppressive antibiotics. Colonoscopy this admission (11/03) with evidence of extrinsic compression, no fistula appreciated, unable to intubate cecal base. Was scheduled for exploratory laparotomy, takedown of colovesical fistula, sigmoidectomy, and possible colostomy and preoperative stent placement. The procedure was aborted due to cardiac arrest during intubation-lost airway visualization 2/2 bleeding and needed emergency cric. - Too sick and debilitated to proceed with surgery inpatient per multiple discussion with CRS; discussions been made with patient and - Continue TPN, antibiotics as noted above - d/w [facility] resident 01/05- will schedule o/p appointment - CT abdomen noncontrast 12/14: Severe hepatic steatosis. acute component of diverticulitis and additional area of fistulization to the sigmoid colon on series 3 image 236; colorectal surgery notified --> NO change in plan. S/p Cefe, metronidazole (12/12-12/21) - DC TPN 9/5 with fungal infection. Discussed with CRS. Can resume oral diet as no planned surgery at this time Assessment & Plan (01/12/2025 1:20 PM CDT): Multiple prior admissions- last discharged on 10/22/24 with plans for o/p colonoscopy on suppressive antibiotics. Colonoscopy this admission (11/03) with evidence of extrinsic compression, no fistula appreciated, unable to intubate cecal base. Was scheduled for exploratory laparotomy, takedown of colovesical fistula, sigmoidectomy, and possible colostomy and preoperative stent placement. The procedure was aborted due to cardiac arrest during intubation-lost airway visualization 2/2 bleeding and needed emergency cric. - Too sick and debilitated to proceed with surgery inpatient per multiple discussion with CRS; discussions been made with patient and - Continue TPN, antibiotics as noted above - d/w [facility] resident 01/05- will schedule o/p appointment - CT abdomen noncontrast 12/14: Severe hepatic steatosis. acute component of diverticulitis and additional area of fistulization to the sigmoid colon on series 3 image 236; colorectal surgery notified --> NO change in plan. S/p Cefe, metronidazole (12/12-12/21) - DC TPN 9/ with fungal infection. Discussed with CRS. Can resume oral diet as no planned surgery at this time Assessment & Plan (01/11/2025 12:18 PM CDT): Multiple prior admissions- last discharged on 10/22/24 with plans for o/p colonoscopy on suppressive antibiotics. Colonoscopy this admission (11/03) with evidence of extrinsic compression, no fistula appreciated, unable to intubate cecal base. Was scheduled for exploratory laparotomy, takedown of colovesical fistula, sigmoidectomy, and possible colostomy and preoperative stent placement. The procedure was aborted due to cardiac arrest during intubation-lost airway visualization 2/2 bleeding and needed emergency cric. - Too sick and debilitated to proceed with surgery inpatient per multiple discussion with CRS; discussions been made with patient and - Continue TPN, antibiotics as noted above - d/w [facility] resident 01/05- will schedule o/p appointment - CT abdomen noncontrast 12/14: Severe hepatic steatosis. acute component of diverticulitis and additional area of fistulization to the sigmoid colon on series 3 image 236; colorectal surgery notified --> NO change in plan. S/p Cefe, metronidazole (12/12-12/21) - DC TPN 9/5 with fungal infection. Discussed with CRS. Can resume oral diet as no planned surgery at this time Assessment & Plan (01/10/2025 11:26 AM CDT): Multiple prior admissions- last discharged on 10/22/24 with plans for o/p colonoscopy on suppressive antibiotics. Colonoscopy this admission (11/03) with evidence of extrinsic compression, no fistula appreciated, unable to intubate cecal base. Was scheduled for exploratory laparotomy, takedown of colovesical fistula, sigmoidectomy, and possible colostomy and preoperative stent placement. The procedure was aborted due to cardiac arrest during intubation-lost airway visualization 2/2 bleeding and needed emergency cric. - Too sick and debilitated to proceed with surgery inpatient per multiple discussion with CRS; discussions been made with patient and - Continue TPN, antibiotics as noted above - d/w [facility] resident 01/05- will schedule o/p appointment - CT abdomen noncontrast 12/14: Severe hepatic steatosis. acute component of diverticulitis and additional area of fistulization to the sigmoid colon on series 3 image 236; colorectal surgery notified --> NO change in plan. S/p Cefe, metronidazole (12/12-12/21) - DC TPN 9/ with fungal infection. Discussed with CRS. Can resume oral diet as no planned surgery at this time Assessment & Plan (01/09/2025 11:58 AM CDT): Multiple prior admissions- last discharged on 10/22/24 with plans for o/p colonoscopy on suppressive antibiotics. Colonoscopy this admission (11/03) with evidence of extrinsic compression, no fistula appreciated, unable to intubate cecal base. Was scheduled for exploratory laparotomy, takedown of colovesical fistula, sigmoidectomy, and possible colostomy and preoperative stent placement. The procedure was aborted due to cardiac arrest during intubation-lost airway visualization 2/2 bleeding and needed emergency cric. - Too sick and debilitated to proceed with surgery inpatient per multiple discussion with CRS; discussions been made with patient and - Continue TPN, antibiotics as noted above - d/w [facility] resident 01/05- will schedule o/p appointment - CT abdomen noncontrast 12/14: Severe hepatic steatosis. acute component of diverticulitis and additional area of fistulization to the sigmoid colon on series 3 image 236; colorectal surgery notified --> NO change in plan. S/p Cefe, metronidazole (12/12-12/21) - DC TPN 9/ with fungal infection. Discussed with CRS. Can resume oral diet as no planned surgery at this time Assessment & Plan (01/08/2025 10:29 AM CDT): Multiple prior admissions- last discharged on 10/22/24 with plans for o/p colonoscopy on suppressive antibiotics. Colonoscopy this admission (11/03) with evidence of extrinsic compression, no fistula appreciated, unable to intubate cecal base. Was scheduled for exploratory laparotomy, takedown of colovesical fistula, sigmoidectomy, and possible colostomy and preoperative stent placement. The procedure was aborted due to cardiac arrest during intubation-lost airway visualization 2/2 bleeding and needed emergency cric. - Too sick and debilitated to proceed with surgery inpatient per multiple discussion with CRS; discussions been made with patient and - Continue TPN, antibiotics as noted above - d/w CRS resident 01/05- will schedule o/p appointment - CT abdomen noncontrast 12/14: Severe hepatic steatosis. acute component of diverticulitis and additional area of fistulization to the sigmoid colon on series 3 image 236; colorectal surgery notified --> NO change in plan. S/p Cefe, metronidazole (12/12-12/21) - DC TPN 9 with fungal infection. Discussed with CRS. Can resume oral diet as no planned surgery at this time Assessment & Plan (01/07/2025 1:32 PM CDT): Multiple prior admissions- last discharged on 10/22/24 with plans for o/p colonoscopy on suppressive antibiotics. Colonoscopy this admission (11/03) with evidence of extrinsic compression, no fistula appreciated, unable to intubate cecal base. Was scheduled for exploratory laparotomy, takedown of colovesical fistula, sigmoidectomy, and possible colostomy and preoperative stent placement. The procedure was aborted due to cardiac arrest during intubation-lost airway visualization 2/2 bleeding and needed emergency cric. - Too sick and debilitated to proceed with surgery inpatient per multiple discussion with CRS; discussions been made with patient and - Continue TPN, antibiotics as noted above - d/w CRS resident 01/05- will schedule o/p appointment - CT abdomen noncontrast 12/14: Severe hepatic steatosis. acute component of diverticulitis and additional area of fistulization to the sigmoid colon on series 3 image 236; colorectal surgery notified --> NO change in plan. S/p Cefe, metronidazole (12/12-12/21) - DC TPN 9/ with fungal infection. Discussed with CRS. Can resume oral diet as no planned surgery at this time Assessment & Plan (01/06/2025 1:47 PM CDT): Multiple prior admissions- last discharged on 10/22/24 with plans for o/p colonoscopy on suppressive antibiotics. Colonoscopy this admission (11/03) with evidence of extrinsic compression, no fistula appreciated, unable to intubate cecal base. Was scheduled for exploratory laparotomy, takedown of colovesical fistula, sigmoidectomy, and possible colostomy and preoperative stent placement. The procedure was aborted due to cardiac arrest during intubation-lost airway visualization 2/2 bleeding and needed emergency cric. - Too sick and debilitated to proceed with surgery inpatient per multiple discussion with CRS; discussions been made with patient and - Continue TPN, antibiotics as noted above - d/w CRS resident 01/05- will schedule o/p appointment - CT abdomen noncontrast 12/14: Severe hepatic steatosis. acute component of diverticulitis and additional area of fistulization to the sigmoid colon on series 3 image 236; colorectal surgery notified --> NO change in plan. S/p Cefe, metronidazole (12/12-12/21) - DC TPN 12/26 with fungal infection. Discussed with CRS. Can resume oral diet as no planned surgery at this time Assessment & Plan (01/06/2025 5:36 PM CDT): - continue amoxicillin-clavulanate 875-125 mg q12 hours and tedizolid 200 mg qday. No surgery planned at this time per CRS. - Will plan to follow up in ~2 weeks with ID after discharge - Appreciate CRS input to surgery timing Assessment & Plan (01/05/2025 8:19 PM CDT): Multiple prior admissions- last discharged on 10/22/24 with plans for o/p colonoscopy on suppressive antibiotics. Colonoscopy this admission (11/03) with evidence of extrinsic compression, no fistula appreciated, unable to intubate cecal base. Was scheduled for exploratory laparotomy, takedown of colovesical fistula, sigmoidectomy, and possible colostomy and preoperative stent placement. The procedure was aborted due to cardiac arrest during intubation-lost airway visualization 2/2 bleeding and needed emergency cric. - Too sick and debilitated to proceed with surgery inpatient per multiple discussion with CRS; discussions been made with patient and - Continue TPN, antibiotics as noted above - d/w CRS resident 01/05- will schedule o/p appointment - CT abdomen noncontrast 12/14: Severe hepatic steatosis. acute component of diverticulitis and additional area of fistulization to the sigmoid colon on series 3 image 236; colorectal surgery notified --> NO change in plan. S/p Cefe, metronidazole (12/12-12/21) - DC TPN 9/5 with fungal infection. Discussed with CRS. Can resume oral diet as no planned surgery at this time Assessment & Plan (01/04/2025 2:44 PM CDT): Multiple prior admissions- last discharged on 10/22/24 with plans for o/p colonoscopy on suppressive antibiotics. Colonoscopy this admission (11/03) with evidence of extrinsic compression, no fistula appreciated, unable to intubate cecal base. Was scheduled for exploratory laparotomy, takedown of colovesical fistula, sigmoidectomy, and possible colostomy and preoperative stent placement. The procedure was aborted due to cardiac arrest during intubation-lost airway visualization 2/2 bleeding and needed emergency cric. - Too sick and debilitated to proceed with surgery inpatient per multiple discussion with CRS; discussions been made with patient and - Continue TPN, antibiotics as noted above - Call and notify CRS when closer to [place] so can make clinic appointment - CT abdomen noncontrast 12/14: Severe hepatic steatosis. acute component of diverticulitis and additional area of fistulization to the sigmoid colon on series 3 image 236; colorectal surgery notified --> NO change in plan. S/p Cefe, metronidazole (12/12-12/21) - DC TPN 9/5 with fungal infection. Discussed with CRS. Can resume oral diet as no planned surgery at this time Assessment & Plan (01/03/2025 6:12 PM CDT): Multiple prior admissions- last discharged on 10/22/24 with plans for o/p colonoscopy on suppressive antibiotics. Colonoscopy this admission (11/03) with evidence of extrinsic compression, no fistula appreciated, unable to intubate cecal base. Was scheduled for exploratory laparotomy, takedown of colovesical fistula, sigmoidectomy, and possible colostomy and preoperative stent placement. The procedure was aborted due to cardiac arrest during intubation-lost airway visualization 2/2 bleeding and needed emergency cric. - Too sick and debilitated to proceed with surgery inpatient per multiple discussion with CRS; discussions been made with patient and - Continue TPN, antibiotics as noted above - Call and notify CRS when closer to [place] so can make clinic appointment - CT abdomen noncontrast 12/14: Severe hepatic steatosis. acute component of diverticulitis and additional area of fistulization to the sigmoid colon on series 3 image 236; colorectal surgery notified --> NO change in plan. S/p Cefe, metronidazole (12/12-12/21) - DC TPN 9/5 with fungal infection. Discussed with CRS. Can resume oral diet as no planned surgery at this time Assessment & Plan (01/02/2025 7:31 PM CDT): Multiple prior admissions- last discharged on 10/22/24 with plans for o/p colonoscopy on suppressive antibiotics. Colonoscopy this admission (11/03) with evidence of extrinsic compression, no fistula appreciated, unable to intubate cecal base. Was scheduled for exploratory laparotomy, takedown of colovesical fistula, sigmoidectomy, and possible colostomy and preoperative stent placement. The procedure was aborted due to cardiac arrest during intubation-lost airway visualization 2/2 bleeding and needed emergency cric. - Too sick and debilitated to proceed with surgery inpatient per multiple discussion with CRS; discussions been made with patient and - Continue TPN, antibiotics as noted above - Call and notify CRS when closer to [place] so can make clinic appointment - CT abdomen noncontrast 12/14: Severe hepatic steatosis. acute component of diverticulitis and additional area of fistulization to the sigmoid colon on series 3 image 236; colorectal surgery notified --> NO change in plan. S/p Cefe, metronidazole (12/12-12/21) - DC TPN 9/5 with fungal infection. Discussed with CRS. Can resume oral diet as no planned surgery at this time Assessment & Plan (01/01/2025 6:42 PM CDT): Multiple prior admissions- last discharged on 10/22/24 with plans for o/p colonoscopy on suppressive antibiotics. Colonoscopy this admission (11/03) with evidence of extrinsic compression, no fistula appreciated, unable to intubate cecal base. Was scheduled for exploratory laparotomy, takedown of colovesical fistula, sigmoidectomy, and possible colostomy and preoperative stent placement. The procedure was aborted due to cardiac arrest during intubation-lost airway visualization 2/2 bleeding and needed emergency cric. - Too sick and debilitated to proceed with surgery inpatient per multiple discussion with CRS; discussions been made with patient and - Continue TPN, antibiotics as noted above - Call and notify CRS when closer to [place] so can make clinic appointment - CT abdomen noncontrast 12/14: Severe hepatic steatosis. acute component of diverticulitis and additional area of fistulization to the sigmoid colon on series 3 image 236; colorectal surgery notified --> NO change in plan. S/p Cefe, metronidazole (12/12-12/21) - DC TPN 9/ with fungal infection. Discussed with CRS. Can resume oral diet as no planned surgery at this time Assessment & Plan (12/31/2024 6:52 PM CDT): Multiple prior admissions- last discharged on 10/22/24 with plans for o/p colonoscopy on suppressive antibiotics. Colonoscopy this admission (11/03) with evidence of extrinsic compression, no fistula appreciated, unable to intubate cecal base. Was scheduled for exploratory laparotomy, takedown of colovesical fistula, sigmoidectomy, and possible colostomy and preoperative stent placement. The procedure was aborted due to cardiac arrest during intubation-lost airway visualization 2/2 bleeding and needed emergency cric. - Too sick and debilitated to proceed with surgery inpatient per multiple discussion with CRS; discussions been made with patient and - Continue TPN, antibiotics as noted above - Call and notify CRS when closer to [place] so can make clinic appointment - CT abdomen noncontrast 12/14: Severe hepatic steatosis. acute component of diverticulitis and additional area of fistulization to the sigmoid colon on series 3 image 236; colorectal surgery notified --> NO change in plan. S/p Cefe, metronidazole (12/12-12/21) - DC TPN 9/5 with fungal infection. Discussed with CRS. Can resume oral diet as no planned surgery at this time Assessment & Plan (12/30/2024 4:26 PM CDT): Multiple prior admissions- last discharged on 10/22/24 with plans for o/p colonoscopy on suppressive antibiotics. Colonoscopy this admission (11/03) with evidence of extrinsic compression, no fistula appreciated, unable to intubate cecal base. Was scheduled for exploratory laparotomy, takedown of colovesical fistula, sigmoidectomy, and possible colostomy and preoperative stent placement. The procedure was aborted due to cardiac arrest during intubation-lost airway visualization 2/2 bleeding and needed emergency cric. - Too sick and debilitated to proceed with surgery inpatient per multiple discussion with CRS; discussions been made with patient and - Continue TPN, antibiotics as noted above - Call and notify CRS when closer to [place] so can make clinic appointment - CT abdomen noncontrast 12/14: Severe hepatic steatosis. acute component of diverticulitis and additional area of fistulization to the sigmoid colon on series 3 image 236; colorectal surgery notified --> NO change in plan. S/p Cefe, metronidazole (12/12-12/21) - DC TPN 12/26 with fungal infection. Discussed with CRS. Can resume oral diet as no planned surgery at this time Assessment & Plan (12/31/2024 2:02 PM CDT): - continue amoxicillin-clavulanate 875-125 mg q12 hours and tedizolid 200 mg qday. No surgery planned at this time per CRS. Assessment & Plan (12/29/2024 10:35 AM CDT): Multiple prior admissions- last discharged on 10/22/24 with plans for o/p colonoscopy on suppressive antibiotics. Colonoscopy this admission (11/03) with evidence of extrinsic compression, no fistula appreciated, unable to intubate cecal base. Was scheduled for exploratory laparotomy, takedown of colovesical fistula, sigmoidectomy, and possible colostomy and preoperative stent placement. The procedure was aborted due to cardiac arrest during intubation-lost airway visualization 2/2 bleeding and needed emergency cric. - Too sick and debilitated to proceed with surgery inpatient per multiple discussion with CRS; discussions been made with patient and - Continue TPN, antibiotics as noted above - Call and notify CRS when closer to [place] so can make clinic appointment - CT abdomen noncontrast 12/14: Severe hepatic steatosis. acute component of diverticulitis and additional area of fistulization to the sigmoid colon on series 3 image 236; colorectal surgery notified --> NO change in plan. S/p Cefe, metronidazole (12/12-12/21) - DC TPN 9/ with fungal infection. Discussed with CRS. Can resume oral diet as no planned surgery at this time Assessment & Plan (12/28/2024 11:23 AM CDT): Multiple prior admissions- last discharged on 10/22/24 with plans for o/p colonoscopy on suppressive antibiotics. Colonoscopy this admission (11/03) with evidence of extrinsic compression, no fistula appreciated, unable to intubate cecal base. Was scheduled for exploratory laparotomy, takedown of colovesical fistula, sigmoidectomy, and possible colostomy and preoperative stent placement. The procedure was aborted due to cardiac arrest during intubation-lost airway visualization 2/2 bleeding and needed emergency cric. - Too sick and debilitated to proceed with surgery inpatient per multiple discussion with CRS; discussions been made with patient and - Continue TPN, antibiotics as noted above - Call and notify CRS when closer to [place] so can make clinic appointment - CT abdomen noncontrast 12/14: Severe hepatic steatosis. acute component of diverticulitis and additional area of fistulization to the sigmoid colon on series 3 image 236; colorectal surgery notified --> NO change in plan. S/p Cefe, metronidazole (12/12-12/21) - DC TPN 9/5 will fungal infection. Discussed with CRS. Can resume oral diet as no planned surgery at this time Assessment & Plan (12/27/2024 10:44 AM CDT): Multiple prior admissions- last discharged on 10/22/24 with plans for o/p colonoscopy on suppressive antibiotics. Colonoscopy this admission (11/03) with evidence of extrinsic compression, no fistula appreciated, unable to intubate cecal base. Was scheduled for exploratory laparotomy, takedown of colovesical fistula, sigmoidectomy, and possible colostomy and preoperative stent placement. The procedure was aborted due to cardiac arrest during intubation-lost airway visualization 2/2 bleeding and needed emergency cric. - Too sick and debilitated to proceed with surgery inpatient per multiple discussion with CRS; discussions been made with patient and - Continue TPN, antibiotics as noted above - Call and notify CRS when closer to [place] so can make clinic appointment - CT abdomen noncontrast 12/14: Severe hepatic steatosis. acute component of diverticulitis and additional area of fistulization to the sigmoid colon on series 3 image 236; colorectal surgery notified --> NO change in plan. S/p Cefe, metronidazole (12/12-12/21) - DC TPN 9/5 will fungal infection. Discussed with CRS. Can resume oral diet as no planned surgery at this time Assessment & Plan (12/26/2024 1:28 PM CDT): Multiple prior admissions- last discharged on 10/22/24 with plans for o/p colonoscopy on suppressive antibiotics. Colonoscopy this admission (11/03) with evidence of extrinsic compression, no fistula appreciated, unable to intubate cecal base. Was scheduled for exploratory laparotomy, takedown of colovesical fistula, sigmoidectomy, and possible colostomy and preoperative stent placement. The procedure was aborted due to cardiac arrest during intubation-lost airway visualization 2/2 bleeding and needed emergency cric. - Too sick and debilitated to proceed with surgery inpatient per multiple discussion with CRS; discussions been made with patient and - Continue TPN, antibiotics as noted above - Call and notify CRS when closer to [place] so can make clinic appointment - CT abdomen noncontrast 12/14: Severe hepatic steatosis. acute component of diverticulitis and additional area of fistulization to the sigmoid colon on series 3 image 236; colorectal surgery notified --> NO change in plan. S/p Cefe, metronidazole (12/12-12/21) - DC TPN 9/5 will fungal infection. Discussed with CRS. Can resume oral diet Assessment & Plan (12/26/2024 4:08 PM CDT): - continue amoxicillin-clavulanate 875-125 mg q.12 hours and tedizolid 200 mg q.day Assessment & Plan (12/25/2024 1:36 PM CDT): Multiple prior admissions- last discharged on 10/22/24 with plans for o/p colonoscopy on suppressive antibiotics. Colonoscopy this admission (11/03) with evidence of extrinsic compression, no fistula appreciated, unable to intubate cecal base. Was scheduled for exploratory laparotomy, takedown of colovesical fistula, sigmoidectomy, and possible colostomy and preoperative stent placement. The procedure was aborted due to cardiac arrest during intubation-lost airway visualization 2/2 bleeding and needed emergency cric. - Too sick and debilitated to proceed with surgery inpatient per multiple discussion with CRS; discussions been made with patient and - Continue TPN, antibiotics as noted above - Call and notify CRS when closer to [place] so can make clinic appointment - CT abdomen noncontrast 12/14: Severe hepatic steatosis. acute component of diverticulitis and additional area of fistulization to the sigmoid colon on series 3 image 236; colorectal surgery notified --> NO change in plan. S/p Cefe, metronidazole (12/12-12/21) Assessment & Plan (12/24/2024 12:30 PM CDT): Multiple prior admissions- last discharged on 10/22/24 with plans for o/p colonoscopy on suppressive antibiotics. Colonoscopy this admission (11/03) with evidence of extrinsic compression, no fistula appreciated, unable to intubate cecal base. Was scheduled for exploratory laparotomy, takedown of colovesical fistula, sigmoidectomy, and possible colostomy and preoperative stent placement. The procedure was aborted due to cardiac arrest during intubation-lost airway visualization 2/2 bleeding and needed emergency cric. - Too sick and debilitated to proceed with surgery inpatient per multiple discussion with CRS; discussions been made with patient and - Continue TPN, antibiotics as noted above - Call and notify CRS when closer to [place] so can make clinic appointment - CT abdomen noncontrast 12/14: Severe hepatic steatosis. acute component of diverticulitis and additional area of fistulization to the sigmoid colon on series 3 image 236; colorectal surgery notified --> NO change in plan. S/p Cefe, metronidazole (12/12-12/21) Assessment & Plan (12/23/2024 12:16 PM CDT): Multiple prior admissions- last discharged on 10/22/24 with plans for o/p colonoscopy on suppressive antibiotics. Colonoscopy this admission (11/03) with evidence of extrinsic compression, no fistula appreciated, unable to intubate cecal base. Was scheduled for exploratory laparotomy, takedown of colovesical fistula, sigmoidectomy, and possible colostomy and preoperative stent placement. The procedure was aborted due to cardiac arrest during intubation-lost airway visualization 2/2 bleeding and needed emergency cric. - Too sick and debilitated to proceed with surgery inpatient per multiple discussion with CRS; discussions been made with patient and - Continue TPN, antibiotics as noted above - Call and notify CRS when closer to [place] so can make clinic appointment - CT abdomen noncontrast 12/14: Severe hepatic steatosis. acute component of diverticulitis and additional area of fistulization to the sigmoid colon on series 3 image 236; colorectal surgery notified --> NO change in plan. S/p Cefe, metronidazole (12/12-12/21) Assessment & Plan (12/22/2024 7:49 AM CDT): Multiple prior admissions- last discharged on 10/22/24 with plans for o/p colonoscopy on suppressive antibiotics. Colonoscopy this admission (11/03) with evidence of extrinsic compression, no fistula appreciated, unable to intubate cecal base. Was scheduled for exploratory laparotomy, takedown of colovesical fistula, sigmoidectomy, and possible colostomy and preoperative stent placement. The procedure was aborted due to cardiac arrest during intubation-lost airway visualization 2/2 bleeding and needed emergency cric. - Too sick and debilitated to proceed with surgery inpatient per multiple discussion with CRS; discussions been made with patient and - Continue TPN, antibiotics as noted above - Call and notify CRS when closer to [place] so can make clinic appointment - CT abdomen noncontrast 12/14: Severe hepatic steatosis. acute component of diverticulitis and additional area of fistulization to the sigmoid colon on series 3 image 236; colorectal surgery notified --> NO change in plan. S/p Cefe, metronidazole (12/12-12/21) Assessment & Plan (12/21/2024 12:05 PM CDT): Multiple prior admissions- last discharged on 10/22/24 with plans for o/p colonoscopy on suppressive antibiotics. Colonoscopy this admission (11/03) with evidence of extrinsic compression, no fistula appreciated, unable to intubate cecal base. Was scheduled for exploratory laparotomy, takedown of colovesical fistula, sigmoidectomy, and possible colostomy and preoperative stent placement. The procedure was aborted due to cardiac arrest during intubation-lost airway visualization 2/2 bleeding and needed emergency cric. - Too sick and debilitated to proceed with surgery inpatient per multiple discussion with CRS; discussions been made with patient and - Continue TPN, antibiotics as noted above - Call and notify CRS when closer to [place] so can make clinic appointment - CT abdomen noncontrast 12/14: Severe hepatic steatosis. acute component of diverticulitis and additional area of fistulization to the sigmoid colon on series 3 image 236; colorectal surgery notified --> NO change in plan. S/p Cefe, metronidazole (12/12-12/21) Assessment & Plan (12/20/2024 1:16 PM CDT): Multiple prior admissions- last discharged on 10/22/24 with plans for o/p colonoscopy on suppressive antibiotics. Colonoscopy this admission (11/03) with evidence of extrinsic compression, no fistula appreciated, unable to intubate cecal base. Was scheduled for exploratory laparotomy, takedown of colovesical fistula, sigmoidectomy, and possible colostomy and preoperative stent placement. The procedure was aborted due to cardiac arrest during intubation-lost airway visualization 2/2 bleeding and needed emergency cric. - Too sick and debilitated to proceed with surgery inpatient per multiple discussion with CRS; discussions been made with patient and - Continue TPN+clear diet, antibiotics as noted above - Call and notify CRS when closer to [place] so can make clinic appointment - CT abdomen noncontrast 12/14: Severe hepatic steatosis. acute component of diverticulitis and additional area of fistulization to the sigmoid colon on series 3 image 236; colorectal surgery notified --> NO change in plan. S/p Cefe, metronidazole (12/12-12/21) Assessment & Plan (12/19/2024 4:57 PM CDT): Nina Macias is a 44 y.o. 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 She was re-admitted 10/31 with recurrent fever, nausea, and vomiting with LLQ abdominal pain. CT imaging continued to demonstrate acute on chronic sequela of diverticulitis similar to prior exams. She was continued on amoxicillin-clavulanate and tedizolid was switched to linezolid (10/30-). She was scheduled to undergo exploratory laparotomy, takedown of colovesical fistula, sigmoidectomy, and possible colostomy and preoperative stent placement but the procedure was aborted due to cardiac arrest during induction during which difficult airway ended up requiring emergency cric. She then underwent trach which has since been decannulated but amidst her long PCU stay, decision made to defer surgery w/ CRS during present hospitalization. CT abdomen noncontrast 12/14: Redemonstrated sequela of prior sigmoid diverticulitis with colovesicular fistula. Slightly increased fat stranding and wall thickening of the sigmoid colon likely represents a superimposed acute component. Per primary team note 12/15, still no acute surgical intervention at this time. 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 Bcx collected 12/13 w/ S epidermidis, likely contaminant as repeat bcx NG, final w/ other likely explanations for her fevers. 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 Colonoscopy this admission (11/03) with evidence of extrinsic compression, no fistula appreciated, unable to intubate cecal base. Was scheduled for exploratory laparotomy, takedown of colovesical fistula, sigmoidectomy, and possible colostomy and preoperative stent placement. The procedure was aborted due to cardiac arrest during intubation-lost airway visualization 2/2 bleeding and need emergency cric. 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 Slightly increased fat stranding and wall thickening of the sigmoid colon likely represents a superimposed acute component. Interval resolution of the multifocal pneumonia. Severe hepatic steatosis. Already on Cefepime and Flagyl. Will d/w CRS Multiple prior admissions- last discharged on 10/22/24 with plans for o/p colonoscopy on suppressive antibiotics. Colonoscopy this admission (11/03) with evidence of extrinsic compression, no fistula appreciated, unable to intubate cecal base. Was scheduled for exploratory laparotomy, takedown of colovesical fistula, sigmoidectomy, and possible colostomy and preoperative stent placement. The procedure was aborted due to cardiac arrest during intubation-lost airway visualization 2/2 bleeding and need emergency cric. - Too sick and debilitated to proceed with surgery inpatient per multiple discussion with CRS; discussions been made with patient and - Continue TPN+clear diet, antibiotics as noted above - Call and notify CRS when closer to [place] so can make clinic appointment - Change to IV Zofran, adden IM Tigan as was having issues with PICC line - CT with suspected acute component of diverticulitis and additional area of fistulization to the sigmoid colon on series 3 image 236; colorectal surgery notified to review and offer any recommendation--> NO change in plan. ABx as above Assessment & Plan (12/18/2024 8:14 AM CDT): Multiple prior admissions- last discharged on 10/22/24 with plans for o/p colonoscopy on suppressive antibiotics. Colonoscopy this admission (11/03) with evidence of extrinsic compression, no fistula appreciated, unable to intubate cecal base. Was scheduled for exploratory laparotomy, takedown of colovesical fistula, sigmoidectomy, and possible colostomy and preoperative stent placement. The procedure was aborted due to cardiac arrest during intubation-lost airway visualization 2/2 bleeding and need emergency cric. 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 Slightly increased fat stranding and wall thickening of the sigmoid colon likely represents a superimposed acute component. Interval resolution of the multifocal pneumonia. Severe hepatic steatosis. Already on Cefepime and Flagyl. Will d/w CRS Multiple prior admissions- last discharged on 10/22/24 with plans for o/p colonoscopy on suppressive antibiotics. Colonoscopy this admission (11/03) with evidence of extrinsic compression, no fistula appreciated, unable to intubate cecal base. Was scheduled for exploratory laparotomy, takedown of colovesical fistula, sigmoidectomy, and possible colostomy and preoperative stent placement. The procedure was aborted due to cardiac arrest during intubation-lost airway visualization 2/2 bleeding and need emergency cric. - Too sick and debilitated to proceed with surgery inpatient per multiple discussion with CRS; discussions been made with patient and - Continue TPN+clear diet, antibiotics as noted above - Call and notify CRS when closer to [place] so can make clinic appointment - Change to IV Zofran, adden IM Tigan as was having issues with PICC line - CT with suspected acute component of diverticulitis and additional area of fistulization to the sigmoid colon on series 3 image 236; colorectal surgery notified to review and offer any recommendation--> NO change in plan. ABx as above Assessment & Plan (12/17/2024 1:15 PM CDT): Multiple prior admissions- last discharged on 10/22/24 with plans for o/p colonoscopy on suppressive antibiotics. Colonoscopy this admission (11/03) with evidence of extrinsic compression, no fistula appreciated, unable to intubate cecal base. Was scheduled for exploratory laparotomy, takedown of colovesical fistula, sigmoidectomy, and possible colostomy and preoperative stent placement. The procedure was aborted due to cardiac arrest during intubation-lost airway visualization 2/2 bleeding and need emergency cric. 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 Slightly increased fat stranding and wall thickening of the sigmoid colon likely represents a superimposed acute component. Interval resolution of the multifocal pneumonia. Severe hepatic steatosis. Already on Cefepime and Flagyl. Will d/w CRS Multiple prior admissions- last discharged on 10/22/24 with plans for o/p colonoscopy on suppressive antibiotics. Colonoscopy this admission (11/03) with evidence of extrinsic compression, no fistula appreciated, unable to intubate cecal base. Was scheduled for exploratory laparotomy, takedown of colovesical fistula, sigmoidectomy, and possible colostomy and preoperative stent placement. The procedure was aborted due to cardiac arrest during intubation-lost airway visualization 2/2 bleeding and need emergency cric. - Too sick and debilitated to proceed with surgery inpatient per multiple discussion with CRS; discussions been made with patient and - Continue TPN+clear diet, antibiotics as noted above - Call and notify CRS when closer to [place] so can make clinic appointment - Change to IV Zofran, adden IM Tigan as was having issues with PICC line - CT with suspected acute component of diverticulitis and additional area of fistulization to the sigmoid colon on series 3 image 236; colorectal surgery notified to review and offer any recommendation--> NO change in plan. ABx as above Assessment & Plan (12/16/2024 2:46 PM CDT): Multiple prior admissions- last discharged on 10/22/24 with plans for o/p colonoscopy on suppressive antibiotics. Colonoscopy this admission (11/03) with evidence of extrinsic compression, no fistula appreciated, unable to intubate cecal base. Was scheduled for exploratory laparotomy, takedown of colovesical fistula, sigmoidectomy, and possible colostomy and preoperative stent placement. The procedure was aborted due to cardiac arrest during intubation-lost airway visualization 2/2 bleeding and need emergency cric. 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 Slightly increased fat stranding and wall thickening of the sigmoid colon likely represents a superimposed acute component. Interval resolution of the multifocal pneumonia. Severe hepatic steatosis. Already on Cefepime and Flagyl. Will d/w CRS Multiple prior admissions- last discharged on 10/22/24 with plans for o/p colonoscopy on suppressive antibiotics. Colonoscopy this admission (11/03) with evidence of extrinsic compression, no fistula appreciated, unable to intubate cecal base. Was scheduled for exploratory laparotomy, takedown of colovesical fistula, sigmoidectomy, and possible colostomy and preoperative stent placement. The procedure was aborted due to cardiac arrest during intubation-lost airway visualization 2/2 bleeding and need emergency cric. - Too sick and debilitated to proceed with surgery inpatient per multiple discussion with CRS; discussions been made with patient and - Continue TPN+clear diet, antibiotics as noted above - Call and notify CRS when closer to [place] so can make clinic appointment - Change to IV Zofran, adden IM Tigan as was having issues with PICC line - CT with suspected acute component of diverticulitis and additional area of fistulization to the sigmoid colon on series 3 image 236; colorectal surgery notified to review and offer any recommendation--> NO change in plan. ABx as above Assessment & Plan (12/15/2024 1:02 PM CDT): Nina Macias is a 44 y.o. 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 She was re-admitted 10/31 with recurrent fever, nausea, and vomiting with LLQ abdominal pain. CT imaging continued to demonstrate acute on chronic sequela of diverticulitis similar to prior exams. She was continued on amoxicillin-clavulanate and tedizolid was switched to linezolid (10/30-). She was scheduled to undergo exploratory laparotomy, takedown of colovesical fistula, sigmoidectomy, and possible colostomy and preoperative stent placement but the procedure was aborted due to cardiac arrest during induction during which difficult airway ended up requiring emergency cric. She then underwent trach which has since been decannulated but amidst her long PCU stay, decision made to defer surgery w/ CRS during present hospitalization. CT abdomen noncontrast 12/14: Redemonstrated sequela of prior sigmoid diverticulitis with colovesicular fistula. Slightly increased fat stranding and wall thickening of the sigmoid colon likely represents a superimposed acute component. Per primary team note 12/15, still no acute surgical intervention at this time. 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 Bcx collected 12/13 w/ S epidermidis, likely contaminant w/ other likely explanations for her fevers. 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 Colonoscopy this admission (11/03) with evidence of extrinsic compression, no fistula appreciated, unable to intubate cecal base. Was scheduled for exploratory laparotomy, takedown of colovesical fistula, sigmoidectomy, and possible colostomy and preoperative stent placement. The procedure was aborted due to cardiac arrest during intubation-lost airway visualization 2/2 bleeding and need emergency cric. 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 Slightly increased fat stranding and wall thickening of the sigmoid colon likely represents a superimposed acute component. Interval resolution of the multifocal pneumonia. Severe hepatic steatosis. Already on Cefepime and Flagyl. Will d/w CRS Multiple prior admissions- last discharged on 10/22/24 with plans for o/p colonoscopy on suppressive antibiotics. Colonoscopy this admission (11/03) with evidence of extrinsic compression, no fistula appreciated, unable to intubate cecal base. Was scheduled for exploratory laparotomy, takedown of colovesical fistula, sigmoidectomy, and possible colostomy and preoperative stent placement. The procedure was aborted due to cardiac arrest during intubation-lost airway visualization 2/2 bleeding and need emergency cric. - Too sick and debilitated to proceed with surgery inpatient per multiple discussion with CRS; discussions been made with patient and - Continue TPN+clear diet, antibiotics as noted above - Call and notify CRS when closer to [place] so can make clinic appointment - Change to IV Zofran, adden IM Tigan as was having issues with PICC line - CT with suspected acute component of diverticulitis and additional area of fistulization to the sigmoid colon on series 3 image 236; colorectal surgery notified to review and offer any recommendation--> NO change in plan as of 12/15 Assessment & Plan (12/14/2024 10:58 AM CDT): Multiple prior admissions- last discharged on 10/22/24 with plans for o/p colonoscopy on suppressive antibiotics. Colonoscopy this admission (11/03) with evidence of extrinsic compression, no fistula appreciated, unable to intubate cecal base. Was scheduled for exploratory laparotomy, takedown of colovesical fistula, sigmoidectomy, and possible colostomy and preoperative stent placement. The procedure was aborted due to cardiac arrest during intubation-lost airway visualization 2/2 bleeding and need emergency cric. - Too sick and debilitated to proceed with surgery inpatient per multiple discussion with CRS; discussions been made with patient and - Continue TPN+clear diet, antibiotics as noted above - Call and notify CRS when closer to [place] so can make clinic appointment - Change to IV Zofran - Add Tigan IM for nausea given PICC line occlusion Assessment & Plan (12/14/2024 10:59 AM CDT): Multiple prior admissions- last discharged on 10/22/24 with plans for o/p colonoscopy on suppressive antibiotics. Colonoscopy this admission (11/03) with evidence of extrinsic compression, no fistula appreciated, unable to intubate cecal base. Was scheduled for exploratory laparotomy, takedown of colovesical fistula, sigmoidectomy, and possible colostomy and preoperative stent placement. The procedure was aborted due to cardiac arrest during intubation-lost airway visualization 2/2 bleeding and need emergency cric. - Too sick and debilitated to proceed with surgery inpatient per multiple discussion with CRS; discussions been made with patient and - Continue TPN+clear diet, antibiotics as noted above - Call and notify CRS when closer to [place] so can make clinic appointment - Change to IV Zofran Assessment & Plan (12/12/2024 2:48 PM CDT): Multiple prior admissions- last discharged on 10/22/24 with plans for o/p colonoscopy on suppressive antibiotics. Colonoscopy this admission (11/03) with evidence of extrinsic compression, no fistula appreciated, unable to intubate cecal base. Was scheduled for exploratory laparotomy, takedown of colovesical fistula, sigmoidectomy, and possible colostomy and preoperative stent placement. The procedure was aborted due to cardiac arrest during intubation-lost airway visualization 2/2 bleeding and need emergency cric. - Too sick and debilitated to proceed with surgery inpatient per multiple discussion with CRS; discussions been made with patient and - Continue TPN+clear diet, antibiotics as noted above - Call and notify CRS when closer to [place] so can make clinic appointment Assessment & Plan (12/11/2024 8:52 PM CDT): Multiple prior admissions- last discharged on 10/22/24 with plans for o/p colonoscopy on suppressive antibiotics. Colonoscopy this admission (11/03) with evidence of extrinsic compression, no fistula appreciated, unable to intubate cecal base. Was scheduled for exploratory laparotomy, takedown of colovesical fistula, sigmoidectomy, and possible colostomy and preoperative stent placement. The procedure was aborted due to cardiac arrest during intubation-lost airway visualization 2/2 bleeding and need emergency cric. - Too sick and debilitated to proceed with surgery inpatient per multiple discussion with CRS; discussions been made with patient and - Continue TPN, antibiotics as noted above - Call and notify CRS when closer to [place] so can make clinic appointment Assessment & Plan (12/10/2024 2:27 PM CDT): Multiple prior admissions- last discharged on 10/22/24 with plans for o/p colonoscopy on suppressive antibiotics. Colonoscopy this admission (11/03) with evidence of extrinsic compression, no fistula appreciated, unable to intubate cecal base. Was scheduled for exploratory laparotomy, takedown of colovesical fistula, sigmoidectomy, and possible colostomy and preoperative stent placement. The procedure was aborted due to cardiac arrest during intubation-lost airway visualization 2/2 bleeding and need emergency cric. 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 CRS asked to come back and discuss with them on 11/21/24. - CRS has signed off - plan to f/u in clinic, appointment scheduled OP for 12/10 to evaluate clinical status and discuss plans for re-attempting surgery; given the patient's complexity at this time, it's unlikely that she will get to 12/10/2024 appointment. By Sunday, I will speak to CRS to consider moving that appointment and having them see her inpatient. - ID recommend PO abx - C/w TPN- f/u nutrition recs; only clear liquid intake - reclarified with CRS- plan is no surgery this admission. To discharge home when able and f/u as outpatient to discuss timing of surgery. Discussed with them today, notify them when patient getting closer to [place] Assessment & Plan (12/09/2024 2:27 PM CDT): Multiple prior admissions- last discharged on 10/22/24 with plans for o/p colonoscopy on suppressive antibiotics. Colonoscopy this admission (11/03) with evidence of extrinsic compression, no fistula appreciated, unable to intubate cecal base. Was scheduled for exploratory laparotomy, takedown of colovesical fistula, sigmoidectomy, and possible colostomy and preoperative stent placement. The procedure was aborted due to cardiac arrest during intubation-lost airway visualization 2/2 bleeding and need emergency cric. 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 CRS asked to come back and discuss with them on 11/21/24. - CRS has signed off - plan to f/u in clinic, appointment scheduled OP for 12/10 to evaluate clinical status and discuss plans for re-attempting surgery; given the patient's complexity at this time, it's unlikely that she will get to 12/10/2024 appointment. By Sunday, I will speak to CRS to consider moving that appointment and having them see her inpatient. - ID recommend PO abx - C/w TPN- f/u nutrition recs; only clear liquid intake - reclarified with CRS- plan is no surgery this admission. To discharge home when able and f/u as outpatient to discuss timing of surgery Assessment & Plan (12/08/2024 2:09 PM CDT): Multiple prior admissions- last discharged on 10/22/24 with plans for o/p colonoscopy on suppressive antibiotics. Colonoscopy this admission (11/03) with evidence of extrinsic compression, no fistula appreciated, unable to intubate cecal base. Was scheduled for exploratory laparotomy, takedown of colovesical fistula, sigmoidectomy, and possible colostomy and preoperative stent placement. The procedure was aborted due to cardiac arrest during intubation-lost airway visualization 2/2 bleeding and need emergency cric. 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 CRS asked to come back and discuss with them on 11/21/24. - CRS has signed off - plan to f/u in clinic, appointment scheduled OP for 12/10 to evaluate clinical status and discuss plans for re-attempting surgery; given the patient's complexity at this time, it's unlikely that she will get to 12/10/2024 appointment. By Sunday, I will speak to CRS to consider moving that appointment and having them see her inpatient. - ID recommend PO abx - C/w TPN- f/u nutrition recs; only clear liquid intake, TPN dependent - reclarified with CRS- plan is no surgery this admission. To discharge home when able and f/u as outpatient to discuss timing of surgery Assessment & Plan (12/07/2024 1:18 PM CDT): Multiple prior admissions- last discharged on 10/22/24 with plans for o/p colonoscopy on suppressive antibiotics. Colonoscopy this admission (11/03) with evidence of extrinsic compression, no fistula appreciated, unable to intubate cecal base. Was scheduled for exploratory laparotomy, takedown of colovesical fistula, sigmoidectomy, and possible colostomy and preoperative stent placement. The procedure was aborted due to cardiac arrest during intubation-lost airway visualization 2/2 bleeding and need emergency cric. 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 CRS asked to come back and discuss with them on 11/21/24. - CRS has signed off - plan to f/u in clinic, appointment scheduled OP for 12/10 to evaluate clinical status and discuss plans for re-attempting surgery; given the patient's complexity at this time, it's unlikely that she will get to 12/10/2024 appointment. By Sunday, I will speak to CRS to consider moving that appointment and having them see her inpatient. - ID recommend PO abx - C/w TPN- f/u nutrition recs; only clear liquid intake, TPN dependent - reclarified with CRS- plan is no surgery this admission. To discharge home when able and f/u as outpatient to discuss timing of surgery Assessment & Plan (12/06/2024 2:19 PM CDT): Multiple prior admissions- last discharged on 10/22/24 with plans for o/p colonoscopy on suppressive antibiotics. Colonoscopy this admission (11/03) with evidence of extrinsic compression, no fistula appreciated, unable to intubate cecal base. Was scheduled for exploratory laparotomy, takedown of colovesical fistula, sigmoidectomy, and possible colostomy and preoperative stent placement. The procedure was aborted due to cardiac arrest during intubation-lost airway visualization 2/2 bleeding and need emergency cric. 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 CRS asked to come back and discuss with them on 11/21/24. - CRS has signed off - plan to f/u in clinic, appointment scheduled OP for 12/10 to evaluate clinical status and discuss plans for re-attempting surgery; given the patient's complexity at this time, it's unlikely that she will get to 12/10/2024 appointment. By Sunday, I will speak to CRS to consider moving that appointment and having them see her inpatient. - ID recommend PO abx - C/w TPN- f/u nutrition recs; only clear liquid intake, TPN dependent - reclarified with CRS- plan is no surgery this admission. To discharge home when able and f/u as outpatient to discuss timing of surgery Assessment & Plan (12/05/2024 4:47 PM CDT): Multiple prior admissions- last discharged on 10/22/24 with plans for o/p colonoscopy on suppressive antibiotics. Colonoscopy this admission (11/03) with evidence of extrinsic compression, no fistula appreciated, unable to intubate cecal base. Was scheduled for exploratory laparotomy, takedown of colovesical fistula, sigmoidectomy, and possible colostomy and preoperative stent placement. The procedure was aborted due to cardiac arrest during intubation-lost airway visualization 2/2 bleeding and need emergency cric. 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 CRS asked to come back and discuss with them on 11/21/24. - CRS has signed off - plan to f/u in clinic, appointment scheduled OP for 12/10 to evaluate clinical status and discuss plans for re-attempting surgery; given the patient's complexity at this time, it's unlikely that she will get to 12/10/2024 appointment. By Sunday, I will speak to CRS to consider moving that appointment and having them see her inpatient. - ID recommend PO abx - C/w TPN- f/u nutrition recs; only clear liquid intake, TPN dependent - reclarified with CRS- plan is no surgery this admission. To discharge home when able and f/u as outpatient to discuss timing of surgery Assessment & Plan (12/04/2024 2:08 PM CDT): Multiple prior admissions- last discharged on 10/22/24 with plans for o/p colonoscopy on suppressive antibiotics. Colonoscopy this admission (11/03) with evidence of extrinsic compression, no fistula appreciated, unable to intubate cecal base. Was scheduled for exploratory laparotomy, takedown of colovesical fistula, sigmoidectomy, and possible colostomy and preoperative stent placement. The procedure was aborted due to cardiac arrest during intubation-lost airway visualization 2/2 bleeding and need emergency cric. 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 CRS asked to come back and discuss with them on 11/21/24. - CRS has signed off - plan to f/u in clinic, appointment scheduled OP for 12/10 to evaluate clinical status and discuss plans for re-attempting surgery; given the patient's complexity at this time, it's unlikely that she will get to 12/10/2024 appointment. By Sunday, I will speak to CRS to consider moving that appointment and having them see her inpatient. - ID recommend PO abx - C/w TPN- f/u nutrition recs; only clear liquid intake, TPN dependent - reclarified with CRS- plan is no surgery this admission. To discharge home when able and f/u as outpatient to discuss timing of surgery Assessment & Plan (12/03/2024 6:06 PM CDT): Multiple prior admissions- last discharged on 10/22/24 with plans for o/p colonoscopy on suppressive antibiotics. Colonoscopy this admission (11/03) with evidence of extrinsic compression, no fistula appreciated, unable to intubate cecal base. Was scheduled for exploratory laparotomy, takedown of colovesical fistula, sigmoidectomy, and possible colostomy and preoperative stent placement. The procedure was aborted due to cardiac arrest during intubation-lost airway visualization 2/2 bleeding and need emergency cric. 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 CRS asked to come back and discuss with them on 11/21/24. - CRS has signed off - plan to f/u in clinic, appointment scheduled OP for 12/10 to evaluate clinical status and discuss plans for re-attempting surgery; given the patient's complexity at this time, it's unlikely that she will get to 12/10/2024 appointment. By Sunday, I will speak to CRS to consider moving that appointment and having them see her inpatient. - ID recommend PO abx - C/w TPN- f/u nutrition recs; only clear liquid intake, TPN dependent - reclarified with CRS- plan is no surgery this admission. To discharge home when able and f/u as outpatient to discuss timing of surgery Assessment & Plan (12/02/2024 2:26 PM CDT): Multiple prior admissions- last discharged on 10/22/24 with plans for o/p colonoscopy on suppressive antibiotics. Colonoscopy this admission (11/03) with evidence of extrinsic compression, no fistula appreciated, unable to intubate cecal base. Was scheduled for exploratory laparotomy, takedown of colovesical fistula, sigmoidectomy, and possible colostomy and preoperative stent placement. The procedure was aborted due to cardiac arrest during intubation-lost airway visualization 2/2 bleeding and need emergency cric. 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 CRS asked to come back and discuss with them on 11/21/24. - CRS has signed off - plan to f/u in clinic, appointment scheduled OP for 12/10 to evaluate clinical status and discuss plans for re-attempting surgery; given the patient's complexity at this time, it's unlikely that she will get to 12/10/2024 appointment. By Sunday, I will speak to CRS to consider moving that appointment and having them see her inpatient. - ID recommend PO abx - C/w TPN- f/u nutrition recs; only clear liquid intake, TPN dependent - reclarified with CRS- plan is no surgery this admission. To discharge home when able and f/u as outpatient to discuss timing of surgery Assessment & Plan (12/01/2024 9:54 AM CDT): Multiple prior admissions- last discharged on 10/22/24 with plans for o/p colonoscopy on suppressive antibiotics. Colonoscopy this admission (11/03) with evidence of extrinsic compression, no fistula appreciated, unable to intubate cecal base. Was scheduled for exploratory laparotomy, takedown of colovesical fistula, sigmoidectomy, and possible colostomy and preoperative stent placement. The procedure was aborted due to cardiac arrest during intubation-lost airway visualization 2/2 bleeding and need emergency cric. 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 CRS asked to come back and discuss with them on 11/21/24. - CRS has signed off - plan to f/u in clinic, appointment scheduled OP for 12/10 to evaluate clinical status and discuss plans for re-attempting surgery. - ID recommend PO abx - C/w TPN- f/u nutrition recs -Check daily labs - reclarified with CRS- plan is no surgery this admission. To discharge home when able and f/u as outpatient to discuss timing of surgery -will discuss oral intake with CRS Assessment & Plan (11/30/2024 1:01 PM CDT): Multiple prior admissions- last discharged on 10/22/24 with plans for o/p colonoscopy on suppressive antibiotics. Colonoscopy this admission (11/03) with evidence of extrinsic compression, no fistula appreciated, unable to intubate cecal base. Was scheduled for exploratory laparotomy, takedown of colovesical fistula, sigmoidectomy, and possible colostomy and preoperative stent placement. The procedure was aborted due to cardiac arrest during intubation-lost airway visualization 2/2 bleeding and need emergency cric. 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 CRS asked to come back and discuss with them on 11/21/24. - CRS has signed off - plan to f/u in clinic, appointment scheduled OP for 12/10 to evaluate clinical status and discuss plans for re-attempting surgery. - ID recommend PO abx - C/w TPN- f/u nutrition recs -Check daily labs - reclarified with CRS- plan is no surgery this admission. To discharge home when able and f/u as outpatient to discuss timing of surgery Assessment & Plan (11/29/2024 11:20 AM CDT): Multiple prior admissions- last discharged on 10/22/24 with plans for o/p colonoscopy on suppressive antibiotics. Colonoscopy this admission (11/03) with evidence of extrinsic compression, no fistula appreciated, unable to intubate cecal base. Was scheduled for exploratory laparotomy, takedown of colovesical fistula, sigmoidectomy, and possible colostomy and preoperative stent placement. The procedure was aborted due to cardiac arrest during intubation-lost airway visualization 2/2 bleeding and need emergency cric. 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 CRS asked to come back and discuss with them on 11/21/24. - CRS has signed off - plan to f/u in clinic, appointment scheduled OP for 12/10 to evaluate clinical status and discuss plans for re-attempting surgery. - ID recommend PO abx - C/w TPN- f/u nutrition recs -Check daily labs - reclarified with CRS- plan is no surgery this admission. To discharge home when able and f/u as outpatient to discuss timing of surgery Assessment & Plan (11/28/2024 1:42 PM CDT): Multiple prior admissions- last discharged on 10/22/24 with plans for o/p colonoscopy on suppressive antibiotics. Colonoscopy this admission (11/03) with evidence of extrinsic compression, no fistula appreciated, unable to intubate cecal base. Was scheduled for exploratory laparotomy, takedown of colovesical fistula, sigmoidectomy, and possible colostomy and preoperative stent placement. The procedure was aborted due to cardiac arrest during intubation-lost airway visualization 2/2 bleeding and need emergency cric. 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 CRS asked to come back and discuss with them on 11/21/24. - CRS has signed off - plan to f/u in clinic, appointment scheduled OP for 12/10 to evaluate clinical status and discuss plans for re-attempting surgery. - ID recommend PO abx - C/w TPN- f/u nutrition recs -Check daily labs - reclarified with CRS- plan is no surgery this admission. To discharge home when able and f/u as outpatient to discuss timing of surgery Assessment & Plan (11/27/2024 10:16 AM CDT): Multiple prior admissions- last discharged on 10/22/24 with plans for o/p colonoscopy on suppressive antibiotics. Colonoscopy this admission (11/03) with evidence of extrinsic compression, no fistula appreciated, unable to intubate cecal base. Was scheduled for exploratory laparotomy, takedown of colovesical fistula, sigmoidectomy, and possible colostomy and preoperative stent placement. The procedure was aborted due to cardiac arrest during intubation. Patient and asking to speak with CRS team about operating while inpatient and while she has an airway: too sick for the operation and want her to heal from her current tracheostomy prior to proceeding. CRS asked to come back and discuss with them on 11/21/24. - CRS has signed off - plan to f/u in clinic, appointment scheduled OP for 12/10 to evaluate clinical status and discuss plans for re-attempting surgery. - ID recommend PO abx - C/w TPN- f/u nutrition recs -Check daily labs - reclarified with CRS- plan is no surgery this admission. To discharge home when able and f/u as outpatient to discuss timing of surgery Assessment & Plan (11/26/2024 12:13 PM CDT): Multiple prior admissions- last discharged on 10/22/24 with plans for o/p colonoscopy on suppressive antibiotics. Colonoscopy this admission (11/03) with evidence of extrinsic compression, no fistula appreciated, unable to intubate cecal base. Was scheduled for exploratory laparotomy, takedown of colovesical fistula, sigmoidectomy, and possible colostomy and preoperative stent placement. The procedure was aborted due to cardiac arrest during intubation. Patient and asking to speak with CRS team about operating while inpatient and while she has an airway: too sick for the operation and want her to heal from her current tracheostomy prior to proceeding. CRS asked to come back and discuss with them on 11/21/24. - CRS has signed off - plan to f/u in clinic, appointment scheduled OP for 12/10 to evaluate clinical status and discuss plans for re-attempting surgery. - ID recommend PO abx - C/w TPN- f/u nutrition recs -Check daily labs - patient states told would stay inpatient until mtg 12/11 per CRS and then proceed with surgery-need to clarify CRS plan and confirm that don't need to keep trach for surgery Assessment & Plan (11/25/2024 3:35 PM CDT): Multiple prior admissions- last discharged on 10/22/24 with plans for o/p colonoscopy on suppressive antibiotics. Colonoscopy this admission (11/03) with evidence of extrinsic compression, no fistula appreciated, unable to intubate cecal base. Was scheduled for exploratory laparotomy, takedown of colovesical fistula, sigmoidectomy, and possible colostomy and preoperative stent placement. The procedure was aborted due to cardiac arrest during intubation. Patient and asking to speak with CRS team about operating while inpatient and while she has an airway: too sick for the operation and want her to heal from her current tracheostomy prior to proceeding. CRS asked to come back and discuss with them on 11/21/24. - CRS has signed off - plan to f/u in clinic, appointment scheduled OP for 12/10 to evaluate clinical status and discuss plans for re-attempting surgery. - ID recommend PO abx - C/w TPN- f/u nutrition recs -Check daily labs Assessment & Plan (11/24/2024 11:40 PM CDT): Multiple prior admissions- last discharged on 10/22/24 with plans for o/p colonoscopy on suppressive antibiotics Colonoscopy this admission (11/03) with evidence of extrinsic compression, no fistula appreciated, unable to intubate cecal base. Was scheduled for exploratory laparotomy, takedown of colovesical fistula, sigmoidectomy, and possible colostomy and preoperative stent placement. The procedure was aborted due to cardiac arrest during intubation. Patient and asking to speak with CRS team about operating while inpatient and while she has an airway: too sick for the operation and want her to heal from her current tracheostomy prior to proceeding.CRS asked to come back and discuss with them on 11/21/2024. - CRS has signed off - plan to f/u in clinic appointment scheduled OP for 12/10- to evaluate clinical status and discuss plans for re-attempting surgery. - ID recommend PO abx - C/w TPN- f/u nutrition recs -Check daily labs Assessment & Plan (11/23/2024 8:59 PM CDT): Multiple prior admissions- last discharged on 10/22/24 with plans for o/p colonoscopy on suppressive antibiotics Colonoscopy this admission (11/03) with evidence of extrinsic compression, no fistula appreciated, unable to intubate cecal base. Was scheduled for exploratory laparotomy, takedown of colovesical fistula, sigmoidectomy, and possible colostomy and preoperative stent placement. The procedure was aborted due to cardiac arrest during intubation. Patient and asking to speak with CRS team about operating while inpatient and while she has an airway: too sick for the operation and want her to heal from her current tracheostomy prior to proceeding.CRS asked to come back and discuss with them on 11/21/2024. - CRS has signed off - plan to f/u outpatient appointment scheduled OP for 12/10- to evaluate clinical status and discuss plans for re-attempting surgery. - ID recommend PO abx - C/w TPN- f/u nutrition recs -labs last night contaminated, redrawn, potassium content adjusted .Check daily labs Assessment & Plan (11/22/2024 7:23 PM CDT): Multiple prior admissions- last discharged on 10/22/24 with plans for o/p colonoscopy on suppressive antibiotics Colonoscopy this admission (11/03) with evidence of extrinsic compression, no fistula appreciated, unable to intubate cecal base. Was scheduled for exploratory laparotomy, takedown of colovesical fistula, sigmoidectomy, and possible colostomy and preoperative stent placement. The procedure was aborted due to cardiac arrest during intubation. Patient and asking to speak with CRS team about operating while inpatient and while she has an airway: too sick for the operation and want her to heal from her current tracheostomy prior to proceeding.CRS asked to come back and discuss with them on 11/21/2024. - CRS has signed off - plan to f/u outpatient appointment scheduled OP for 12/10 - ID recommend PO abx - C/w TPN- f/u nutrition recs -labs last night contaminated, redrawn, potassium content adjusted .Check daily labs Assessment & Plan (11/21/2024 3:52 PM CDT): Multiple prior admissions- last discharged on 10/22/24 with plans for o/p colonoscopy on suppressive antibiotics Colonoscopy this admission (11/03) with evidence of extrinsic compression, no fistula appreciated, unable to intubate cecal base. Was scheduled for exploratory laparotomy, takedown of colovesical fistula, sigmoidectomy, and possible colostomy and preoperative stent placement. The procedure was aborted due to cardiac arrest during intubation. Patient and asking to speak with CRS team about operating while inpatient and while she has an airway. Per our discussion, she is too sick for the operation and want her to heal from her current tracheostomy prior to proceeding. We have reinforced CRS's plan with the patient and have asked CRC to come back and discuss with them on 11/21/2024. - CRS has signed off - plan to f/u outpatient appointment scheduled OP for 12/10 - ID recommend PO abx - C/w TPN- f/u nutrition recs continue home provera and topiramate Assessment & Plan (11/20/2024 3:42 PM CDT): Multiple prior admissions- last discharged on 10/22/24 with plans for o/p colonoscopy on suppressive antibiotics Colonoscopy this admission (11/03) with evidence of extrinsic compression, no fistula appreciated, unable to intubate cecal base. Was scheduled for exploratory laparotomy, takedown of colovesical fistula, sigmoidectomy, and possible colostomy and preoperative stent placement c/b arrest during induction requiring cricothyrodotomy that was converted to revision tracheostomy. Plan CRS signed off 11/17- no plan for sx this admission, o/p f/u ID recommend PO abx C/w TPN- f/u nutrition recs continue home provera and topiramate Assessment & Plan (11/19/2024 12:57 PM CDT): Multiple prior admissions- last discharged on 10/22/24 with plans for o/p colonoscopy on suppressive antibiotics Colonoscopy this admission (11/03) with evidence of extrinsic compression, no fistula appreciated, unable to intubate cecal base. Was scheduled for exploratory laparotomy, takedown of colovesical fistula, sigmoidectomy, and possible colostomy and preoperative stent placement c/b arrest during induction requiring cricothyrodotomy that was converted to revision tracheostomy. Plan CRS signed off 11/17- no plan for sx this admission, o/p f/u Consult with ID for recommendations on o/p antibiotic regimen C/w TPN- f/u nutrition recs continue home provera and topiramate Assessment & Plan (11/18/2024 6:00 PM CDT): Multiple prior admissions- last discharged on 10/22/24 with plans for o/p colonoscopy on suppressive antibiotics Colonoscopy this admission (11/03) with evidence of extrinsic compression, no fistula appreciated, unable to intubate cecal base. Was scheduled for exploratory laparotomy, takedown of colovesical fistula, sigmoidectomy, and possible colostomy and preoperative stent placement c/b arrest during induction requiring cricothyrodotomy that was converted to revision tracheostomy. CRS signed off 11/17- no plan for sx this admission, o/p f/u Consult with ID for recommendations on o/p antibiotic regimen C/w TPN- f/u nutrition recs continue home provera and topiramate On total parenteral nutrition (TPN) 11/18/2024 Assessment & Plan (11/24/2024 11:40 PM CDT): Multiple prior admissions- last discharged on 10/22/24 with plans for o/p colonoscopy on suppressive antibiotics Colonoscopy this admission (11/03) with evidence of extrinsic compression, no fistula appreciated, unable to intubate cecal base. Was scheduled for exploratory laparotomy, takedown of colovesical fistula, sigmoidectomy, and possible colostomy and preoperative stent placement. The procedure was aborted due to cardiac arrest during intubation. Patient and asking to speak with CRS team about operating while inpatient and while she has an airway: too sick for the operation and want her to heal from her current tracheostomy prior to proceeding.CRS asked to come back and discuss with them on 11/21/2024. - CRS has signed off - plan to f/u in clinic appointment scheduled OP for 12/10- to evaluate clinical status and discuss plans for re-attempting surgery. - ID recommend PO abx - C/w TPN- f/u nutrition recs -Check daily labs Assessment & Plan (11/23/2024 8:59 PM CDT): Multiple prior admissions- last discharged on 10/22/24 with plans for o/p colonoscopy on suppressive antibiotics Colonoscopy this admission (11/03) with evidence of extrinsic compression, no fistula appreciated, unable to intubate cecal base. Was scheduled for exploratory laparotomy, takedown of colovesical fistula, sigmoidectomy, and possible colostomy and preoperative stent placement. The procedure was aborted due to cardiac arrest during intubation. Patient and asking to speak with CRS team about operating while inpatient and while she has an airway: too sick for the operation and want her to heal from her current tracheostomy prior to proceeding.CRS asked to come back and discuss with them on 11/21/2024. - CRS has signed off - plan to f/u outpatient appointment scheduled OP for 12/10- to evaluate clinical status and discuss plans for re-attempting surgery. - ID recommend PO abx - C/w TPN- f/u nutrition recs -labs last night contaminated, redrawn, potassium content adjusted .Check daily labs Assessment & Plan (11/22/2024 7:23 PM CDT): Multiple prior admissions- last discharged on 10/22/24 with plans for o/p colonoscopy on suppressive antibiotics Colonoscopy this admission (11/03) with evidence of extrinsic compression, no fistula appreciated, unable to intubate cecal base. Was scheduled for exploratory laparotomy, takedown of colovesical fistula, sigmoidectomy, and possible colostomy and preoperative stent placement. The procedure was aborted due to cardiac arrest during intubation. Patient and asking to speak with CRS team about operating while inpatient and while she has an airway: too sick for the operation and want her to heal from her current tracheostomy prior to proceeding.CRS asked to come back and discuss with them on 11/21/2024. - CRS has signed off - plan to f/u outpatient appointment scheduled OP for 12/10 - ID recommend PO abx - C/w TPN- f/u nutrition recs -labs last night contaminated, redrawn, potassium content adjusted .Check daily labs Assessment & Plan (11/21/2024 3:52 PM CDT): Multiple prior admissions- last discharged on 10/22/24 with plans for o/p colonoscopy on suppressive antibiotics Colonoscopy this admission (11/03) with evidence of extrinsic compression, no fistula appreciated, unable to intubate cecal base. Was scheduled for exploratory laparotomy, takedown of colovesical fistula, sigmoidectomy, and possible colostomy and preoperative stent placement. The procedure was aborted due to cardiac arrest during intubation. Patient and asking to speak with CRS team about operating while inpatient and while she has an airway. Per our discussion, she is too sick for the operation and want her to heal from her current tracheostomy prior to proceeding. We have reinforced CRS's plan with the patient and have asked CRC to come back and discuss with them on 11/21/2024. - CRS has signed off - plan to f/u outpatient appointment scheduled OP for 12/10 - ID recommend PO abx - C/w TPN- f/u nutrition recs continue home provera and topiramate Assessment & Plan (11/20/2024 3:42 PM CDT): Multiple prior admissions- last discharged on 10/22/24 with plans for o/p colonoscopy on suppressive antibiotics Colonoscopy this admission (11/03) with evidence of extrinsic compression, no fistula appreciated, unable to intubate cecal base. Was scheduled for exploratory laparotomy, takedown of colovesical fistula, sigmoidectomy, and possible colostomy and preoperative stent placement c/b arrest during induction requiring cricothyrodotomy that was converted to revision tracheostomy. Plan CRS signed off 11/17- no plan for sx this admission, o/p f/u ID recommend PO abx C/w TPN- f/u nutrition recs continue home provera and topiramate Assessment & Plan (11/19/2024 12:57 PM CDT): Multiple prior admissions- last discharged on 10/22/24 with plans for o/p colonoscopy on suppressive antibiotics Colonoscopy this admission (11/03) with evidence of extrinsic compression, no fistula appreciated, unable to intubate cecal base. Was scheduled for exploratory laparotomy, takedown of colovesical fistula, sigmoidectomy, and possible colostomy and preoperative stent placement c/b arrest during induction requiring cricothyrodotomy that was converted to revision tracheostomy. Plan CRS signed off 11/17- no plan for sx this admission, o/p f/u Consult with ID for recommendations on o/p antibiotic regimen C/w TPN- f/u nutrition recs continue home provera and topiramate Assessment & Plan (11/18/2024 6:00 PM CDT): Multiple prior admissions- last discharged on 10/22/24 with plans for o/p colonoscopy on suppressive antibiotics Colonoscopy this admission (11/03) with evidence of extrinsic compression, no fistula appreciated, unable to intubate cecal base. Was scheduled for exploratory laparotomy, takedown of colovesical fistula, sigmoidectomy, and possible colostomy and preoperative stent placement c/b arrest during induction requiring cricothyrodotomy that was converted to revision tracheostomy. CRS signed off 11/17- no plan for sx this admission, o/p f/u Consult with ID for recommendations on o/p antibiotic regimen C/w TPN- f/u nutrition recs continue home provera and topiramate Diverticulitis 11/18/2024 Assessment & Plan (03/03/2025 7:32 AM CHEF): Recurrent episodes of diverticulitis. Currently, pt denies diarrhea or blood in stools making acute diverticulitis less likely despite imaging findings of inflammation vs post surgical changes. More likely post surgical changes as WBC could be explained by UTI. Plan: - Continue regular diet - s/p metronidazole 500 mg q8h and CTX 1g q24 -(02/23 -02/28) Assessment & Plan (03/02/2025 6:13 PM CHEF): Recurrent episodes of diverticulitis. Currently, pt denies diarrhea or blood in stools making acute diverticulitis less likely despite imaging findings of inflammation vs post surgical changes. More likely post surgical changes as WBC could be explained by UTI. Plan: - Continue regular diet - s/p metronidazole 500 mg q8h and CTX 1g q24 -(02/23 -02/28) Assessment & Plan (03/01/2025 6:18 AM CHEF): Recurrent episodes of diverticulitis. Currently, pt denies diarrhea or blood in stools making acute diverticulitis less likely despite imaging findings of inflammation vs post surgical changes. More likely post surgical changes as WBC could be explained by UTI. Plan: - Continue regular diet - metronidazole 500 mg q8h and CTX 1g q24 -plan for 7d course (will DC CTX and use cipro if patient is medically ready for dc otherwise prior to 7d completion, otherwise will continue CTX for additional pyelonephritis concern) Assessment & Plan (02/28/2025 5:56 AM CHEF): Recurrent episodes of diverticulitis. Currently, pt denies diarrhea or blood in stools making acute diverticulitis less likely despite imaging findings of inflammation vs post surgical changes. More likely post surgical changes as WBC could be explained by UTI. Plan: - Continue regular diet - metronidazole 500 mg q8h and CTX 1g q24 -plan for 7d course (will DC CTX and use cipro if patient is medically ready for dc otherwise prior to 7d completion, otherwise will continue CTX for additional pyelonephritis concern) Assessment & Plan (02/27/2025 10:08 AM CHEF): Recurrent episodes of diverticulitis. Currently, pt denies diarrhea or blood in stools making acute diverticulitis less likely despite imaging findings of inflammation vs post surgical changes. More likely post surgical changes as WBC could be explained by UTI. Plan: - Continue regular diet - metronidazole 500 mg q8h and CTX 1g q24 -plan for 7d course (will DC CTX and use cipro if patient is medically ready for dc otherwise prior to 7d completion, otherwise will continue CTX for additional pyelonephritis concern) Assessment & Plan (02/26/2025 7:14 AM CHEF): Recurrent episodes of diverticulitis. Currently, pt denies diarrhea or blood in stools making acute diverticulitis less likely despite imaging findings of inflammation vs post surgical changes. More likely post surgical changes as WBC could be explained by UTI. PLAN: - continue diet as she has no issues with PO intake. - metronidazole 500 mg q8h and CTX 1g q24 -plan for 7d course (will DC CTX and use cipro if patient is medically ready for dc otherwise prior to 7d completion) Assessment & Plan (02/25/2025 12:52 PM CHEF): Recurrent episodes of diverticulitis. Currently, pt denies diarrhea or blood in stools making acute diverticulitis less likely despite imaging findings of inflammation vs post surgical changes. More likely post surgical changes as WBC could be explained by UTI. PLAN: - continue diet as she has no issues with PO intake. - metronidazole 500 mg q8h and CTX 1g q24 -plan for 7d course (will DC CTX and use cipro if patient is medically ready for dc otherwise prior to 7d completion) Assessment & Plan (02/24/2025 1:45 PM CHEF): Recurrent episodes of diverticulitis. Currently, pt denies diarrhea or blood in stools making acute diverticulitis less likely despite imaging findings of inflammation vs post surgical changes. More likely post surgical changes as WBC could be explained by UTI. PLAN: - continue diet as she has no issues with PO intake. 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 She was re-admitted 10/31 with recurrent fever, nausea, and vomiting with LLQ abdominal pain. CT imaging continued to demonstrate acute on chronic sequela of diverticulitis similar to prior exams. She was continued on amoxicillin-clavulanate and tedizolid was switched to linezolid (10/30-). She was scheduled to undergo exploratory laparotomy, takedown of colovesical fistula, sigmoidectomy, and possible colostomy and preoperative stent placement but the procedure was aborted due to cardiac arrest during induction during which difficult airway ended up requiring emergency cric. She then underwent trach which has since been decannulated but amidst her long PCU stay, decision made to defer surgery w/ CRS during present hospitalization. CRS re-evaluated and took her to the OR 01/20 for sigmoid resection for takedown of colovesicular fistula, omentum tacked to pelvis to cover fistula to bladder with CRS Recommendations: - Continue amoxicillin-clavulanate 875-125 mg q12 hours and tedizolid 200 mg qday for 72rs from surgery and then stop - No ID follow up needed Assessment & Plan (01/20/2025 1:08 PM CDT): Multiple prior admissions- last discharged on 10/22/24 with plans for o/p colonoscopy on suppressive antibiotics. Colonoscopy this admission (11/03) with evidence of extrinsic compression, no fistula appreciated, unable to intubate cecal base. Was scheduled for exploratory laparotomy, takedown of colovesical fistula, sigmoidectomy, and possible colostomy and preoperative stent placement. The procedure was aborted due to cardiac arrest during intubation-lost airway visualization 2/2 bleeding and needed emergency cric. - Too sick and debilitated to proceed with surgery inpatient per multiple discussion with CRS - CT abdomen noncontrast 12/14: Severe hepatic steatosis. acute component of diverticulitis and additional area of fistulization to the sigmoid colon on series 3 image 236; colorectal surgery notified --> NO change in plan. S/p Cefe, metronidazole (12/12-12/21) - DC TPN 12/26 with fungal infection. - d/w CRS resident 01/05- will schedule o/p appointment - 01/16- planned for surgery on 01/20 Assessment & Plan (01/19/2025 8:40 PM CDT): Multiple prior admissions- last discharged on 10/22/24 with plans for o/p colonoscopy on suppressive antibiotics. Colonoscopy this admission (11/03) with evidence of extrinsic compression, no fistula appreciated, unable to intubate cecal base. Was scheduled for exploratory laparotomy, takedown of colovesical fistula, sigmoidectomy, and possible colostomy and preoperative stent placement. The procedure was aborted due to cardiac arrest during intubation-lost airway visualization 2/2 bleeding and needed emergency cric. - Too sick and debilitated to proceed with surgery inpatient per multiple discussion with CRS - CT abdomen noncontrast 12/14: Severe hepatic steatosis. acute component of diverticulitis and additional area of fistulization to the sigmoid colon on series 3 image 236; colorectal surgery notified --> NO change in plan. S/p Cefe, metronidazole (12/12-12/21) - DC TPN / with fungal infection. - - d/w CRS resident 01/05- will schedule o/p appointment - 01/16- planned for surgery on 01/20 - see above , npo at midnight, CLD today, evening ppx heparin held Assessment & Plan (01/18/2025 3:27 PM CDT): Multiple prior admissions- last discharged on 10/22/24 with plans for o/p colonoscopy on suppressive antibiotics. Colonoscopy this admission (11/03) with evidence of extrinsic compression, no fistula appreciated, unable to intubate cecal base. Was scheduled for exploratory laparotomy, takedown of colovesical fistula, sigmoidectomy, and possible colostomy and preoperative stent placement. The procedure was aborted due to cardiac arrest during intubation-lost airway visualization 2/2 bleeding and needed emergency cric. - Too sick and debilitated to proceed with surgery inpatient per multiple discussion with CRS; discussions been made with patient and - Continue TPN, antibiotics as noted above - d/w CRS resident 01/05- will schedule o/p appointment - CT abdomen noncontrast 12/14: Severe hepatic steatosis. acute component of diverticulitis and additional area of fistulization to the sigmoid colon on series 3 image 236; colorectal surgery notified --> NO change in plan. S/p Cefe, metronidazole (12/12-12/21) - DC TPN / with fungal infection. - 01/16- see above Assessment & Plan (01/17/2025 2:32 PM CDT): Multiple prior admissions- last discharged on 10/22/24 with plans for o/p colonoscopy on suppressive antibiotics. Colonoscopy this admission (11/03) with evidence of extrinsic compression, no fistula appreciated, unable to intubate cecal base. Was scheduled for exploratory laparotomy, takedown of colovesical fistula, sigmoidectomy, and possible colostomy and preoperative stent placement. The procedure was aborted due to cardiac arrest during intubation-lost airway visualization 2/2 bleeding and needed emergency cric. - Too sick and debilitated to proceed with surgery inpatient per multiple discussion with CRS; discussions been made with patient and - Continue TPN, antibiotics as noted above - d/w CRS resident 01/05- will schedule o/p appointment - CT abdomen noncontrast 12/14: Severe hepatic steatosis. acute component of diverticulitis and additional area of fistulization to the sigmoid colon on series 3 image 236; colorectal surgery notified --> NO change in plan. S/p Cefe, metronidazole (12/12-12/21) - DC TPN 9/5 with fungal infection. - 01/16- see above Assessment & Plan (01/16/2025 9:26 PM CDT): Multiple prior admissions- last discharged on 10/22/24 with plans for o/p colonoscopy on suppressive antibiotics. Colonoscopy this admission (11/03) with evidence of extrinsic compression, no fistula appreciated, unable to intubate cecal base. Was scheduled for exploratory laparotomy, takedown of colovesical fistula, sigmoidectomy, and possible colostomy and preoperative stent placement. The procedure was aborted due to cardiac arrest during intubation-lost airway visualization 2/2 bleeding and needed emergency cric. - Too sick and debilitated to proceed with surgery inpatient per multiple discussion with CRS; discussions been made with patient and - Continue TPN, antibiotics as noted above - d/w CRS resident 01/05- will schedule o/p appointment - CT abdomen noncontrast 12/14: Severe hepatic steatosis. acute component of diverticulitis and additional area of fistulization to the sigmoid colon on series 3 image 236; colorectal surgery notified --> NO change in plan. S/p Cefe, metronidazole (12/12-12/21) - DC TPN 9/5 with fungal infection. - 01/16- see above Assessment & Plan (01/15/2025 9:08 PM CDT): Multiple prior admissions- last discharged on 10/22/24 with plans for o/p colonoscopy on suppressive antibiotics. Colonoscopy this admission (11/03) with evidence of extrinsic compression, no fistula appreciated, unable to intubate cecal base. Was scheduled for exploratory laparotomy, takedown of colovesical fistula, sigmoidectomy, and possible colostomy and preoperative stent placement. The procedure was aborted due to cardiac arrest during intubation-lost airway visualization 2/2 bleeding and needed emergency cric. - Too sick and debilitated to proceed with surgery inpatient per multiple discussion with CRS; discussions been made with patient and - Continue TPN, antibiotics as noted above - d/w CRS resident 01/05- will schedule o/p appointment - CT abdomen noncontrast 12/14: Severe hepatic steatosis. acute component of diverticulitis and additional area of fistulization to the sigmoid colon on series 3 image 236; colorectal surgery notified --> NO change in plan. S/p Cefe, metronidazole (12/12-12/21) - DC TPN 9/ with fungal infection. Discussed with CRS. Can resume oral diet as no planned surgery at this time Assessment & Plan (01/14/2025 11:06 PM CDT): Multiple prior admissions- last discharged on 10/22/24 with plans for o/p colonoscopy on suppressive antibiotics. Colonoscopy this admission (11/03) with evidence of extrinsic compression, no fistula appreciated, unable to intubate cecal base. Was scheduled for exploratory laparotomy, takedown of colovesical fistula, sigmoidectomy, and possible colostomy and preoperative stent placement. The procedure was aborted due to cardiac arrest during intubation-lost airway visualization 2/2 bleeding and needed emergency cric. - Too sick and debilitated to proceed with surgery inpatient per multiple discussion with CRS; discussions been made with patient and - Continue TPN, antibiotics as noted above - d/w CRS resident 01/05- will schedule o/p appointment - CT abdomen noncontrast 12/14: Severe hepatic steatosis. acute component of diverticulitis and additional area of fistulization to the sigmoid colon on series 3 image 236; colorectal surgery notified --> NO change in plan. S/p Cefe, metronidazole (12/12-12/21) - DC TPN 9/5 with fungal infection. Discussed with CRS. Can resume oral diet as no planned surgery at this time Assessment & Plan (01/13/2025 8:04 PM CDT): Multiple prior admissions- last discharged on 10/22/24 with plans for o/p colonoscopy on suppressive antibiotics. Colonoscopy this admission (11/03) with evidence of extrinsic compression, no fistula appreciated, unable to intubate cecal base. Was scheduled for exploratory laparotomy, takedown of colovesical fistula, sigmoidectomy, and possible colostomy and preoperative stent placement. The procedure was aborted due to cardiac arrest during intubation-lost airway visualization 2/2 bleeding and needed emergency cric. - Too sick and debilitated to proceed with surgery inpatient per multiple discussion with CRS; discussions been made with patient and - Continue TPN, antibiotics as noted above - d/w CRS resident 01/05- will schedule o/p appointment - CT abdomen noncontrast 12/14: Severe hepatic steatosis. acute component of diverticulitis and additional area of fistulization to the sigmoid colon on series 3 image 236; colorectal surgery notified --> NO change in plan. S/p Cefe, metronidazole (12/12-12/21) - DC TPN 9/ with fungal infection. Discussed with CRS. Can resume oral diet as no planned surgery at this time Assessment & Plan (01/12/2025 1:20 PM CDT): Multiple prior admissions- last discharged on 10/22/24 with plans for o/p colonoscopy on suppressive antibiotics. Colonoscopy this admission (11/03) with evidence of extrinsic compression, no fistula appreciated, unable to intubate cecal base. Was scheduled for exploratory laparotomy, takedown of colovesical fistula, sigmoidectomy, and possible colostomy and preoperative stent placement. The procedure was aborted due to cardiac arrest during intubation-lost airway visualization 2/2 bleeding and needed emergency cric. - Too sick and debilitated to proceed with surgery inpatient per multiple discussion with CRS; discussions been made with patient and - Continue TPN, antibiotics as noted above - d/w CRS resident 01/05- will schedule o/p appointment - CT abdomen noncontrast 12/14: Severe hepatic steatosis. acute component of diverticulitis and additional area of fistulization to the sigmoid colon on series 3 image 236; colorectal surgery notified --> NO change in plan. S/p Cefe, metronidazole (12/12-12/21) - DC TPN 9/ with fungal infection. Discussed with CRS. Can resume oral diet as no planned surgery at this time Assessment & Plan (01/11/2025 12:18 PM CDT): Multiple prior admissions- last discharged on 10/22/24 with plans for o/p colonoscopy on suppressive antibiotics. Colonoscopy this admission (11/03) with evidence of extrinsic compression, no fistula appreciated, unable to intubate cecal base. Was scheduled for exploratory laparotomy, takedown of colovesical fistula, sigmoidectomy, and possible colostomy and preoperative stent placement. The procedure was aborted due to cardiac arrest during intubation-lost airway visualization 2/2 bleeding and needed emergency cric. - Too sick and debilitated to proceed with surgery inpatient per multiple discussion with CRS; discussions been made with patient and - Continue TPN, antibiotics as noted above - d/w CRS resident 01/05- will schedule o/p appointment - CT abdomen noncontrast 12/14: Severe hepatic steatosis. acute component of diverticulitis and additional area of fistulization to the sigmoid colon on series 3 image 236; colorectal surgery notified --> NO change in plan. S/p Cefe, metronidazole (12/12-12/21) - DC TPN 9/ with fungal infection. Discussed with CRS. Can resume oral diet as no planned surgery at this time Assessment & Plan (01/10/2025 11:26 AM CDT): Multiple prior admissions- last discharged on 10/22/24 with plans for o/p colonoscopy on suppressive antibiotics. Colonoscopy this admission (11/03) with evidence of extrinsic compression, no fistula appreciated, unable to intubate cecal base. Was scheduled for exploratory laparotomy, takedown of colovesical fistula, sigmoidectomy, and possible colostomy and preoperative stent placement. The procedure was aborted due to cardiac arrest during intubation-lost airway visualization 2/2 bleeding and needed emergency cric. - Too sick and debilitated to proceed with surgery inpatient per multiple discussion with CRS; discussions been made with patient and - Continue TPN, antibiotics as noted above - d/w CRS resident 01/05- will schedule o/p appointment - CT abdomen noncontrast 12/14: Severe hepatic steatosis. acute component of diverticulitis and additional area of fistulization to the sigmoid colon on series 3 image 236; colorectal surgery notified --> NO change in plan. S/p Cefe, metronidazole (12/12-12/21) - DC TPN 9/5 with fungal infection. Discussed with CRS. Can resume oral diet as no planned surgery at this time Assessment & Plan (01/09/2025 11:58 AM CDT): Multiple prior admissions- last discharged on 10/22/24 with plans for o/p colonoscopy on suppressive antibiotics. Colonoscopy this admission (11/03) with evidence of extrinsic compression, no fistula appreciated, unable to intubate cecal base. Was scheduled for exploratory laparotomy, takedown of colovesical fistula, sigmoidectomy, and possible colostomy and preoperative stent placement. The procedure was aborted due to cardiac arrest during intubation-lost airway visualization 2/2 bleeding and needed emergency cric. - Too sick and debilitated to proceed with surgery inpatient per multiple discussion with CRS; discussions been made with patient and - Continue TPN, antibiotics as noted above - d/w CRS resident 01/05- will schedule o/p appointment - CT abdomen noncontrast 12/14: Severe hepatic steatosis. acute component of diverticulitis and additional area of fistulization to the sigmoid colon on series 3 image 236; colorectal surgery notified --> NO change in plan. S/p Cefe, metronidazole (12/12-12/21) - DC TPN 12/26 with fungal infection. Discussed with CRS. Can resume oral diet as no planned surgery at this time Assessment & Plan (01/08/2025 10:29 AM CDT): Multiple prior admissions- last discharged on 10/22/24 with plans for o/p colonoscopy on suppressive antibiotics. Colonoscopy this admission (11/03) with evidence of extrinsic compression, no fistula appreciated, unable to intubate cecal base. Was scheduled for exploratory laparotomy, takedown of colovesical fistula, sigmoidectomy, and possible colostomy and preoperative stent placement. The procedure was aborted due to cardiac arrest during intubation-lost airway visualization 2/2 bleeding and needed emergency cric. - Too sick and debilitated to proceed with surgery inpatient per multiple discussion with CRS; discussions been made with patient and - Continue TPN, antibiotics as noted above - d/w CRS resident 01/05- will schedule o/p appointment - CT abdomen noncontrast 12/14: Severe hepatic steatosis. acute component of diverticulitis and additional area of fistulization to the sigmoid colon on series 3 image 236; colorectal surgery notified --> NO change in plan. S/p Cefe, metronidazole (12/12-12/21) - DC TPN 9/ with fungal infection. Discussed with CRS. Can resume oral diet as no planned surgery at this time Assessment & Plan (01/07/2025 1:32 PM CDT): Multiple prior admissions- last discharged on 10/22/24 with plans for o/p colonoscopy on suppressive antibiotics. Colonoscopy this admission (11/03) with evidence of extrinsic compression, no fistula appreciated, unable to intubate cecal base. Was scheduled for exploratory laparotomy, takedown of colovesical fistula, sigmoidectomy, and possible colostomy and preoperative stent placement. The procedure was aborted due to cardiac arrest during intubation-lost airway visualization 2/2 bleeding and needed emergency cric. - Too sick and debilitated to proceed with surgery inpatient per multiple discussion with CRS; discussions been made with patient and - Continue TPN, antibiotics as noted above - d/w CRS resident 01/05- will schedule o/p appointment - CT abdomen noncontrast 12/14: Severe hepatic steatosis. acute component of diverticulitis and additional area of fistulization to the sigmoid colon on series 3 image 236; colorectal surgery notified --> NO change in plan. S/p Cefe, metronidazole (12/12-12/21) - DC TPN 9/ with fungal infection. Discussed with CRS. Can resume oral diet as no planned surgery at this time Assessment & Plan (01/06/2025 1:47 PM CDT): Multiple prior admissions- last discharged on 10/22/24 with plans for o/p colonoscopy on suppressive antibiotics. Colonoscopy this admission (11/03) with evidence of extrinsic compression, no fistula appreciated, unable to intubate cecal base. Was scheduled for exploratory laparotomy, takedown of colovesical fistula, sigmoidectomy, and possible colostomy and preoperative stent placement. The procedure was aborted due to cardiac arrest during intubation-lost airway visualization 2/2 bleeding and needed emergency cric. - Too sick and debilitated to proceed with surgery inpatient per multiple discussion with CRS; discussions been made with patient and - Continue TPN, antibiotics as noted above - d/w CRS resident 01/05- will schedule o/p appointment - CT abdomen noncontrast 12/14: Severe hepatic steatosis. acute component of diverticulitis and additional area of fistulization to the sigmoid colon on series 3 image 236; colorectal surgery notified --> NO change in plan. S/p Cefe, metronidazole (12/12-12/21) - DC TPN 9/ with fungal infection. Discussed with CRS. Can resume oral diet as no planned surgery at this time Assessment & Plan (01/06/2025 5:36 PM CDT): - continue amoxicillin-clavulanate 875-125 mg q12 hours and tedizolid 200 mg qday. No surgery planned at this time per CRS. - Will plan to follow up in ~2 weeks with ID after discharge - Appreciate CRS input to surgery timing Assessment & Plan (01/05/2025 8:19 PM CDT): Multiple prior admissions- last discharged on 10/22/24 with plans for o/p colonoscopy on suppressive antibiotics. Colonoscopy this admission (11/03) with evidence of extrinsic compression, no fistula appreciated, unable to intubate cecal base. Was scheduled for exploratory laparotomy, takedown of colovesical fistula, sigmoidectomy, and possible colostomy and preoperative stent placement. The procedure was aborted due to cardiac arrest during intubation-lost airway visualization 2/2 bleeding and needed emergency cric. - Too sick and debilitated to proceed with surgery inpatient per multiple discussion with CRS; discussions been made with patient and - Continue TPN, antibiotics as noted above - d/w CRS resident 01/05- will schedule o/p appointment - CT abdomen noncontrast 12/14: Severe hepatic steatosis. acute component of diverticulitis and additional area of fistulization to the sigmoid colon on series 3 image 236; colorectal surgery notified --> NO change in plan. S/p Cefe, metronidazole (12/12-12/21) - DC TPN 9/ with fungal infection. Discussed with CRS. Can resume oral diet as no planned surgery at this time Assessment & Plan (01/04/2025 2:44 PM CDT): Multiple prior admissions- last discharged on 10/22/24 with plans for o/p colonoscopy on suppressive antibiotics. Colonoscopy this admission (11/03) with evidence of extrinsic compression, no fistula appreciated, unable to intubate cecal base. Was scheduled for exploratory laparotomy, takedown of colovesical fistula, sigmoidectomy, and possible colostomy and preoperative stent placement. The procedure was aborted due to cardiac arrest during intubation-lost airway visualization 2/2 bleeding and needed emergency cric. - Too sick and debilitated to proceed with surgery inpatient per multiple discussion with CRS; discussions been made with patient and - Continue TPN, antibiotics as noted above - Call and notify CRS when closer to [place] so can make clinic appointment - CT abdomen noncontrast 12/14: Severe hepatic steatosis. acute component of diverticulitis and additional area of fistulization to the sigmoid colon on series 3 image 236; colorectal surgery notified --> NO change in plan. S/p Cefe, metronidazole (12/12-12/21) - DC TPN 9/ with fungal infection. Discussed with CRS. Can resume oral diet as no planned surgery at this time Assessment & Plan (01/03/2025 6:12 PM CDT): Multiple prior admissions- last discharged on 10/22/24 with plans for o/p colonoscopy on suppressive antibiotics. Colonoscopy this admission (11/03) with evidence of extrinsic compression, no fistula appreciated, unable to intubate cecal base. Was scheduled for exploratory laparotomy, takedown of colovesical fistula, sigmoidectomy, and possible colostomy and preoperative stent placement. The procedure was aborted due to cardiac arrest during intubation-lost airway visualization 2/2 bleeding and needed emergency cric. - Too sick and debilitated to proceed with surgery inpatient per multiple discussion with CRS; discussions been made with patient and - Continue TPN, antibiotics as noted above - Call and notify CRS when closer to [place] so can make clinic appointment - CT abdomen noncontrast 12/14: Severe hepatic steatosis. acute component of diverticulitis and additional area of fistulization to the sigmoid colon on series 3 image 236; colorectal surgery notified --> NO change in plan. S/p Cefe, metronidazole (12/12-12/21) - DC TPN 9/5 with fungal infection. Discussed with CRS. Can resume oral diet as no planned surgery at this time Assessment & Plan (01/02/2025 7:31 PM CDT): Multiple prior admissions- last discharged on 10/22/24 with plans for o/p colonoscopy on suppressive antibiotics. Colonoscopy this admission (11/03) with evidence of extrinsic compression, no fistula appreciated, unable to intubate cecal base. Was scheduled for exploratory laparotomy, takedown of colovesical fistula, sigmoidectomy, and possible colostomy and preoperative stent placement. The procedure was aborted due to cardiac arrest during intubation-lost airway visualization 2/2 bleeding and needed emergency cric. - Too sick and debilitated to proceed with surgery inpatient per multiple discussion with CRS; discussions been made with patient and - Continue TPN, antibiotics as noted above - Call and notify CRS when closer to [place] so can make clinic appointment - CT abdomen noncontrast 12/14: Severe hepatic steatosis. acute component of diverticulitis and additional area of fistulization to the sigmoid colon on series 3 image 236; colorectal surgery notified --> NO change in plan. S/p Cefe, metronidazole (12/12-12/21) - DC TPN 12/26 with fungal infection. Discussed with CRS. Can resume oral diet as no planned surgery at this time Assessment & Plan (01/01/2025 6:42 PM CDT): Multiple prior admissions- last discharged on 10/22/24 with plans for o/p colonoscopy on suppressive antibiotics. Colonoscopy this admission (11/03) with evidence of extrinsic compression, no fistula appreciated, unable to intubate cecal base. Was scheduled for exploratory laparotomy, takedown of colovesical fistula, sigmoidectomy, and possible colostomy and preoperative stent placement. The procedure was aborted due to cardiac arrest during intubation-lost airway visualization 2/2 bleeding and needed emergency cric. - Too sick and debilitated to proceed with surgery inpatient per multiple discussion with CRS; discussions been made with patient and - Continue TPN, antibiotics as noted above - Call and notify CRS when closer to [place] so can make clinic appointment - CT abdomen noncontrast 12/14: Severe hepatic steatosis. acute component of diverticulitis and additional area of fistulization to the sigmoid colon on series 3 image 236; colorectal surgery notified --> NO change in plan. S/p Cefe, metronidazole (12/12-12/21) - DC TPN 9/ with fungal infection. Discussed with CRS. Can resume oral diet as no planned surgery at this time Assessment & Plan (12/31/2024 6:52 PM CDT): Multiple prior admissions- last discharged on 10/22/24 with plans for o/p colonoscopy on suppressive antibiotics. Colonoscopy this admission (11/03) with evidence of extrinsic compression, no fistula appreciated, unable to intubate cecal base. Was scheduled for exploratory laparotomy, takedown of colovesical fistula, sigmoidectomy, and possible colostomy and preoperative stent placement. The procedure was aborted due to cardiac arrest during intubation-lost airway visualization 2/2 bleeding and needed emergency cric. - Too sick and debilitated to proceed with surgery inpatient per multiple discussion with CRS; discussions been made with patient and - Continue TPN, antibiotics as noted above - Call and notify CRS when closer to [place] so can make clinic appointment - CT abdomen noncontrast 12/14: Severe hepatic steatosis. acute component of diverticulitis and additional area of fistulization to the sigmoid colon on series 3 image 236; colorectal surgery notified --> NO change in plan. S/p Cefe, metronidazole (12/12-12/21) - DC TPN 9 with fungal infection. Discussed with CRS. Can resume oral diet as no planned surgery at this time Assessment & Plan (12/30/2024 4:26 PM CDT): Multiple prior admissions- last discharged on 10/22/24 with plans for o/p colonoscopy on suppressive antibiotics. Colonoscopy this admission (11/03) with evidence of extrinsic compression, no fistula appreciated, unable to intubate cecal base. Was scheduled for exploratory laparotomy, takedown of colovesical fistula, sigmoidectomy, and possible colostomy and preoperative stent placement. The procedure was aborted due to cardiac arrest during intubation-lost airway visualization 2/2 bleeding and needed emergency cric. - Too sick and debilitated to proceed with surgery inpatient per multiple discussion with CRS; discussions been made with patient and - Continue TPN, antibiotics as noted above - Call and notify CRS when closer to [place] so can make clinic appointment - CT abdomen noncontrast 12/14: Severe hepatic steatosis. acute component of diverticulitis and additional area of fistulization to the sigmoid colon on series 3 image 236; colorectal surgery notified --> NO change in plan. S/p Cefe, metronidazole (12/12-12/21) - DC TPN 9/ with fungal infection. Discussed with CRS. Can resume oral diet as no planned surgery at this time Assessment & Plan (12/31/2024 2:02 PM CDT): - continue amoxicillin-clavulanate 875-125 mg q12 hours and tedizolid 200 mg qday. No surgery planned at this time per CRS. Assessment & Plan (12/29/2024 10:35 AM CDT): Multiple prior admissions- last discharged on 10/22/24 with plans for o/p colonoscopy on suppressive antibiotics. Colonoscopy this admission (11/03) with evidence of extrinsic compression, no fistula appreciated, unable to intubate cecal base. Was scheduled for exploratory laparotomy, takedown of colovesical fistula, sigmoidectomy, and possible colostomy and preoperative stent placement. The procedure was aborted due to cardiac arrest during intubation-lost airway visualization 2/2 bleeding and needed emergency cric. - Too sick and debilitated to proceed with surgery inpatient per multiple discussion with CRS; discussions been made with patient and - Continue TPN, antibiotics as noted above - Call and notify CRS when closer to [place] so can make clinic appointment - CT abdomen noncontrast 12/14: Severe hepatic steatosis. acute component of diverticulitis and additional area of fistulization to the sigmoid colon on series 3 image 236; colorectal surgery notified --> NO change in plan. S/p Cefe, metronidazole (12/12-12/21) - DC TPN 9/5 with fungal infection. Discussed with CRS. Can resume oral diet as no planned surgery at this time Assessment & Plan (12/28/2024 11:23 AM CDT): Multiple prior admissions- last discharged on 10/22/24 with plans for o/p colonoscopy on suppressive antibiotics. Colonoscopy this admission (11/03) with evidence of extrinsic compression, no fistula appreciated, unable to intubate cecal base. Was scheduled for exploratory laparotomy, takedown of colovesical fistula, sigmoidectomy, and possible colostomy and preoperative stent placement. The procedure was aborted due to cardiac arrest during intubation-lost airway visualization 2/2 bleeding and needed emergency cric. - Too sick and debilitated to proceed with surgery inpatient per multiple discussion with CRS; discussions been made with patient and - Continue TPN, antibiotics as noted above - Call and notify CRS when closer to [place] so can make clinic appointment - CT abdomen noncontrast 12/14: Severe hepatic steatosis. acute component of diverticulitis and additional area of fistulization to the sigmoid colon on series 3 image 236; colorectal surgery notified --> NO change in plan. S/p Cefe, metronidazole (12/12-12/21) - DC TPN 9/ will fungal infection. Discussed with CRS. Can resume oral diet as no planned surgery at this time Assessment & Plan (12/27/2024 10:44 AM CDT): Multiple prior admissions- last discharged on 10/22/24 with plans for o/p colonoscopy on suppressive antibiotics. Colonoscopy this admission (11/03) with evidence of extrinsic compression, no fistula appreciated, unable to intubate cecal base. Was scheduled for exploratory laparotomy, takedown of colovesical fistula, sigmoidectomy, and possible colostomy and preoperative stent placement. The procedure was aborted due to cardiac arrest during intubation-lost airway visualization 2/2 bleeding and needed emergency cric. - Too sick and debilitated to proceed with surgery inpatient per multiple discussion with CRS; discussions been made with patient and - Continue TPN, antibiotics as noted above - Call and notify CRS when closer to [place] so can make clinic appointment - CT abdomen noncontrast 12/14: Severe hepatic steatosis. acute component of diverticulitis and additional area of fistulization to the sigmoid colon on series 3 image 236; colorectal surgery notified --> NO change in plan. S/p Cefe, metronidazole (12/12-12/21) - DC TPN 9/5 will fungal infection. Discussed with CRS. Can resume oral diet as no planned surgery at this time Assessment & Plan (12/26/2024 1:28 PM CDT): Multiple prior admissions- last discharged on 10/22/24 with plans for o/p colonoscopy on suppressive antibiotics. Colonoscopy this admission (11/03) with evidence of extrinsic compression, no fistula appreciated, unable to intubate cecal base. Was scheduled for exploratory laparotomy, takedown of colovesical fistula, sigmoidectomy, and possible colostomy and preoperative stent placement. The procedure was aborted due to cardiac arrest during intubation-lost airway visualization 2/2 bleeding and needed emergency cric. - Too sick and debilitated to proceed with surgery inpatient per multiple discussion with CRS; discussions been made with patient and - Continue TPN, antibiotics as noted above - Call and notify CRS when closer to [place] so can make clinic appointment - CT abdomen noncontrast 12/14: Severe hepatic steatosis. acute component of diverticulitis and additional area of fistulization to the sigmoid colon on series 3 image 236; colorectal surgery notified --> NO change in plan. S/p Cefe, metronidazole (12/12-12/21) - DC TPN 12/26 will fungal infection. Discussed with CRS. Can resume oral diet Assessment & Plan (12/26/2024 4:08 PM CDT): - continue amoxicillin-clavulanate 875-125 mg q.12 hours and tedizolid 200 mg q.day Assessment & Plan (12/25/2024 1:36 PM CDT): Multiple prior admissions- last discharged on 10/22/24 with plans for o/p colonoscopy on suppressive antibiotics. Colonoscopy this admission (11/03) with evidence of extrinsic compression, no fistula appreciated, unable to intubate cecal base. Was scheduled for exploratory laparotomy, takedown of colovesical fistula, sigmoidectomy, and possible colostomy and preoperative stent placement. The procedure was aborted due to cardiac arrest during intubation-lost airway visualization 2/2 bleeding and needed emergency cric. - Too sick and debilitated to proceed with surgery inpatient per multiple discussion with CRS; discussions been made with patient and - Continue TPN, antibiotics as noted above - Call and notify CRS when closer to [place] so can make clinic appointment - CT abdomen noncontrast 12/14: Severe hepatic steatosis. acute component of diverticulitis and additional area of fistulization to the sigmoid colon on series 3 image 236; colorectal surgery notified --> NO change in plan. S/p Cefe, metronidazole (12/12-12/21) Assessment & Plan (12/24/2024 12:30 PM CDT): Multiple prior admissions- last discharged on 10/22/24 with plans for o/p colonoscopy on suppressive antibiotics. Colonoscopy this admission (11/03) with evidence of extrinsic compression, no fistula appreciated, unable to intubate cecal base. Was scheduled for exploratory laparotomy, takedown of colovesical fistula, sigmoidectomy, and possible colostomy and preoperative stent placement. The procedure was aborted due to cardiac arrest during intubation-lost airway visualization 2/2 bleeding and needed emergency cric. - Too sick and debilitated to proceed with surgery inpatient per multiple discussion with CRS; discussions been made with patient and - Continue TPN, antibiotics as noted above - Call and notify CRS when closer to [place] so can make clinic appointment - CT abdomen noncontrast 12/14: Severe hepatic steatosis. acute component of diverticulitis and additional area of fistulization to the sigmoid colon on series 3 image 236; colorectal surgery notified --> NO change in plan. S/p Cefe, metronidazole (12/12-12/21) Assessment & Plan (12/23/2024 12:16 PM CDT): Multiple prior admissions- last discharged on 10/22/24 with plans for o/p colonoscopy on suppressive antibiotics. Colonoscopy this admission (11/03) with evidence of extrinsic compression, no fistula appreciated, unable to intubate cecal base. Was scheduled for exploratory laparotomy, takedown of colovesical fistula, sigmoidectomy, and possible colostomy and preoperative stent placement. The procedure was aborted due to cardiac arrest during intubation-lost airway visualization 2/2 bleeding and needed emergency cric. - Too sick and debilitated to proceed with surgery inpatient per multiple discussion with CRS; discussions been made with patient and - Continue TPN, antibiotics as noted above - Call and notify CRS when closer to [place] so can make clinic appointment - CT abdomen noncontrast 12/14: Severe hepatic steatosis. acute component of diverticulitis and additional area of fistulization to the sigmoid colon on series 3 image 236; colorectal surgery notified --> NO change in plan. S/p Cefe, metronidazole (12/12-12/21) Assessment & Plan (12/22/2024 7:49 AM CDT): Multiple prior admissions- last discharged on 10/22/24 with plans for o/p colonoscopy on suppressive antibiotics. Colonoscopy this admission (11/03) with evidence of extrinsic compression, no fistula appreciated, unable to intubate cecal base. Was scheduled for exploratory laparotomy, takedown of colovesical fistula, sigmoidectomy, and possible colostomy and preoperative stent placement. The procedure was aborted due to cardiac arrest during intubation-lost airway visualization 2/2 bleeding and needed emergency cric. - Too sick and debilitated to proceed with surgery inpatient per multiple discussion with CRS; discussions been made with patient and - Continue TPN, antibiotics as noted above - Call and notify CRS when closer to [place] so can make clinic appointment - CT abdomen noncontrast 12/14: Severe hepatic steatosis. acute component of diverticulitis and additional area of fistulization to the sigmoid colon on series 3 image 236; colorectal surgery notified --> NO change in plan. S/p Cefe, metronidazole (12/12-12/21) Assessment & Plan (12/21/2024 12:05 PM CDT): Multiple prior admissions- last discharged on 10/22/24 with plans for o/p colonoscopy on suppressive antibiotics. Colonoscopy this admission (11/03) with evidence of extrinsic compression, no fistula appreciated, unable to intubate cecal base. Was scheduled for exploratory laparotomy, takedown of colovesical fistula, sigmoidectomy, and possible colostomy and preoperative stent placement. The procedure was aborted due to cardiac arrest during intubation-lost airway visualization 2/2 bleeding and needed emergency cric. - Too sick and debilitated to proceed with surgery inpatient per multiple discussion with CRS; discussions been made with patient and - Continue TPN, antibiotics as noted above - Call and notify CRS when closer to [place] so can make clinic appointment - CT abdomen noncontrast 12/14: Severe hepatic steatosis. acute component of diverticulitis and additional area of fistulization to the sigmoid colon on series 3 image 236; colorectal surgery notified --> NO change in plan. S/p Cefe, metronidazole (12/12-12/21) Assessment & Plan (12/20/2024 1:16 PM CDT): Multiple prior admissions- last discharged on 10/22/24 with plans for o/p colonoscopy on suppressive antibiotics. Colonoscopy this admission (11/03) with evidence of extrinsic compression, no fistula appreciated, unable to intubate cecal base. Was scheduled for exploratory laparotomy, takedown of colovesical fistula, sigmoidectomy, and possible colostomy and preoperative stent placement. The procedure was aborted due to cardiac arrest during intubation-lost airway visualization 2/2 bleeding and needed emergency cric. - Too sick and debilitated to proceed with surgery inpatient per multiple discussion with CRS; discussions been made with patient and - Continue TPN+clear diet, antibiotics as noted above - Call and notify CRS when closer to [place] so can make clinic appointment - CT abdomen noncontrast 12/14: Severe hepatic steatosis. acute component of diverticulitis and additional area of fistulization to the sigmoid colon on series 3 image 236; colorectal surgery notified --> NO change in plan. S/p Cefe, metronidazole (12/12-12/21) Assessment & Plan (12/19/2024 4:57 PM CDT): Nina Macias is a 44 y.o. 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 She was re-admitted 10/31 with recurrent fever, nausea, and vomiting with LLQ abdominal pain. CT imaging continued to demonstrate acute on chronic sequela of diverticulitis similar to prior exams. She was continued on amoxicillin-clavulanate and tedizolid was switched to linezolid (10/30-). She was scheduled to undergo exploratory laparotomy, takedown of colovesical fistula, sigmoidectomy, and possible colostomy and preoperative stent placement but the procedure was aborted due to cardiac arrest during induction during which difficult airway ended up requiring emergency cric. She then underwent trach which has since been decannulated but amidst her long PCU stay, decision made to defer surgery w/ CRS during present hospitalization. CT abdomen noncontrast 12/14: Redemonstrated sequela of prior sigmoid diverticulitis with colovesicular fistula. Slightly increased fat stranding and wall thickening of the sigmoid colon likely represents a superimposed acute component. Per primary team note 12/15, still no acute surgical intervention at this time. 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 Bcx collected 12/13 w/ S epidermidis, likely contaminant as repeat bcx NG, final w/ other likely explanations for her fevers. 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 Colonoscopy this admission (11/03) with evidence of extrinsic compression, no fistula appreciated, unable to intubate cecal base. Was scheduled for exploratory laparotomy, takedown of colovesical fistula, sigmoidectomy, and possible colostomy and preoperative stent placement. The procedure was aborted due to cardiac arrest during intubation-lost airway visualization 2/2 bleeding and need emergency cric. 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 Slightly increased fat stranding and wall thickening of the sigmoid colon likely represents a superimposed acute component. Interval resolution of the multifocal pneumonia. Severe hepatic steatosis. Already on Cefepime and Flagyl. Will d/w CRS Multiple prior admissions- last discharged on 10/22/24 with plans for o/p colonoscopy on suppressive antibiotics. Colonoscopy this admission (11/03) with evidence of extrinsic compression, no fistula appreciated, unable to intubate cecal base. Was scheduled for exploratory laparotomy, takedown of colovesical fistula, sigmoidectomy, and possible colostomy and preoperative stent placement. The procedure was aborted due to cardiac arrest during intubation-lost airway visualization 2/2 bleeding and need emergency cric. - Too sick and debilitated to proceed with surgery inpatient per multiple discussion with CRS; discussions been made with patient and - Continue TPN+clear diet, antibiotics as noted above - Call and notify CRS when closer to [place] so can make clinic appointment - Change to IV Zofran, adden IM Tigan as was having issues with PICC line - CT with suspected acute component of diverticulitis and additional area of fistulization to the sigmoid colon on series 3 image 236; colorectal surgery notified to review and offer any recommendation--> NO change in plan. ABx as above Assessment & Plan (12/18/2024 8:14 AM CDT): Multiple prior admissions- last discharged on 10/22/24 with plans for o/p colonoscopy on suppressive antibiotics. Colonoscopy this admission (11/03) with evidence of extrinsic compression, no fistula appreciated, unable to intubate cecal base. Was scheduled for exploratory laparotomy, takedown of colovesical fistula, sigmoidectomy, and possible colostomy and preoperative stent placement. The procedure was aborted due to cardiac arrest during intubation-lost airway visualization 2/2 bleeding and need emergency cric. 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 Slightly increased fat stranding and wall thickening of the sigmoid colon likely represents a superimposed acute component. Interval resolution of the multifocal pneumonia. Severe hepatic steatosis. Already on Cefepime and Flagyl. Will d/w CRS Multiple prior admissions- last discharged on 10/22/24 with plans for o/p colonoscopy on suppressive antibiotics. Colonoscopy this admission (11/03) with evidence of extrinsic compression, no fistula appreciated, unable to intubate cecal base. Was scheduled for exploratory laparotomy, takedown of colovesical fistula, sigmoidectomy, and possible colostomy and preoperative stent placement. The procedure was aborted due to cardiac arrest during intubation-lost airway visualization 2/2 bleeding and need emergency cric. - Too sick and debilitated to proceed with surgery inpatient per multiple discussion with CRS; discussions been made with patient and - Continue TPN+clear diet, antibiotics as noted above - Call and notify CRS when closer to [place] so can make clinic appointment - Change to IV Zofran, adden IM Tigan as was having issues with PICC line - CT with suspected acute component of diverticulitis and additional area of fistulization to the sigmoid colon on series 3 image 236; colorectal surgery notified to review and offer any recommendation--> NO change in plan. ABx as above Assessment & Plan (12/17/2024 1:15 PM CDT): Multiple prior admissions- last discharged on 10/22/24 with plans for o/p colonoscopy on suppressive antibiotics. Colonoscopy this admission (11/03) with evidence of extrinsic compression, no fistula appreciated, unable to intubate cecal base. Was scheduled for exploratory laparotomy, takedown of colovesical fistula, sigmoidectomy, and possible colostomy and preoperative stent placement. The procedure was aborted due to cardiac arrest during intubation-lost airway visualization 2/2 bleeding and need emergency cric. 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 Slightly increased fat stranding and wall thickening of the sigmoid colon likely represents a superimposed acute component. Interval resolution of the multifocal pneumonia. Severe hepatic steatosis. Already on Cefepime and Flagyl. Will d/w CRS Multiple prior admissions- last discharged on 10/22/24 with plans for o/p colonoscopy on suppressive antibiotics. Colonoscopy this admission (11/03) with evidence of extrinsic compression, no fistula appreciated, unable to intubate cecal base. Was scheduled for exploratory laparotomy, takedown of colovesical fistula, sigmoidectomy, and possible colostomy and preoperative stent placement. The procedure was aborted due to cardiac arrest during intubation-lost airway visualization 2/2 bleeding and need emergency cric. - Too sick and debilitated to proceed with surgery inpatient per multiple discussion with CRS; discussions been made with patient and - Continue TPN+clear diet, antibiotics as noted above - Call and notify CRS when closer to [place] so can make clinic appointment - Change to IV Zofran, adden IM Tigan as was having issues with PICC line - CT with suspected acute component of diverticulitis and additional area of fistulization to the sigmoid colon on series 3 image 236; colorectal surgery notified to review and offer any recommendation--> NO change in plan. ABx as above Assessment & Plan (12/16/2024 2:46 PM CDT): Multiple prior admissions- last discharged on 10/22/24 with plans for o/p colonoscopy on suppressive antibiotics. Colonoscopy this admission (11/03) with evidence of extrinsic compression, no fistula appreciated, unable to intubate cecal base. Was scheduled for exploratory laparotomy, takedown of colovesical fistula, sigmoidectomy, and possible colostomy and preoperative stent placement. The procedure was aborted due to cardiac arrest during intubation-lost airway visualization 2/2 bleeding and need emergency cric. 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 Slightly increased fat stranding and wall thickening of the sigmoid colon likely represents a superimposed acute component. Interval resolution of the multifocal pneumonia. Severe hepatic steatosis. Already on Cefepime and Flagyl. Will d/w CRS Multiple prior admissions- last discharged on 10/22/24 with plans for o/p colonoscopy on suppressive antibiotics. Colonoscopy this admission (11/03) with evidence of extrinsic compression, no fistula appreciated, unable to intubate cecal base. Was scheduled for exploratory laparotomy, takedown of colovesical fistula, sigmoidectomy, and possible colostomy and preoperative stent placement. The procedure was aborted due to cardiac arrest during intubation-lost airway visualization 2/2 bleeding and need emergency cric. - Too sick and debilitated to proceed with surgery inpatient per multiple discussion with CRS; discussions been made with patient and - Continue TPN+clear diet, antibiotics as noted above - Call and notify CRS when closer to [place] so can make clinic appointment - Change to IV Zofran, adden IM Tigan as was having issues with PICC line - CT with suspected acute component of diverticulitis and additional area of fistulization to the sigmoid colon on series 3 image 236; colorectal surgery notified to review and offer any recommendation--> NO change in plan. ABx as above Assessment & Plan (12/15/2024 1:02 PM CDT): Nina Macias is a 44 y.o. 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 She was re-admitted 10/31 with recurrent fever, nausea, and vomiting with LLQ abdominal pain. CT imaging continued to demonstrate acute on chronic sequela of diverticulitis similar to prior exams. She was continued on amoxicillin-clavulanate and tedizolid was switched to linezolid (10/30-). She was scheduled to undergo exploratory laparotomy, takedown of colovesical fistula, sigmoidectomy, and possible colostomy and preoperative stent placement but the procedure was aborted due to cardiac arrest during induction during which difficult airway ended up requiring emergency cric. She then underwent trach which has since been decannulated but amidst her long PCU stay, decision made to defer surgery w/ CRS during present hospitalization. CT abdomen noncontrast 12/14: Redemonstrated sequela of prior sigmoid diverticulitis with colovesicular fistula. Slightly increased fat stranding and wall thickening of the sigmoid colon likely represents a superimposed acute component. Per primary team note 12/15, still no acute surgical intervention at this time. 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 Bcx collected 12/13 w/ S epidermidis, likely contaminant w/ other likely explanations for her fevers. 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 Colonoscopy this admission (11/03) with evidence of extrinsic compression, no fistula appreciated, unable to intubate cecal base. Was scheduled for exploratory laparotomy, takedown of colovesical fistula, sigmoidectomy, and possible colostomy and preoperative stent placement. The procedure was aborted due to cardiac arrest during intubation-lost airway visualization 2/2 bleeding and need emergency cric. 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 Slightly increased fat stranding and wall thickening of the sigmoid colon likely represents a superimposed acute component. Interval resolution of the multifocal pneumonia. Severe hepatic steatosis. Already on Cefepime and Flagyl. Will d/w CRS Multiple prior admissions- last discharged on 10/22/24 with plans for o/p colonoscopy on suppressive antibiotics. Colonoscopy this admission (11/03) with evidence of extrinsic compression, no fistula appreciated, unable to intubate cecal base. Was scheduled for exploratory laparotomy, takedown of colovesical fistula, sigmoidectomy, and possible colostomy and preoperative stent placement. The procedure was aborted due to cardiac arrest during intubation-lost airway visualization 2/2 bleeding and need emergency cric. - Too sick and debilitated to proceed with surgery inpatient per multiple discussion with CRS; discussions been made with patient and - Continue TPN+clear diet, antibiotics as noted above - Call and notify CRS when closer to [place] so can make clinic appointment - Change to IV Zofran, adden IM Tigan as was having issues with PICC line - CT with suspected acute component of diverticulitis and additional area of fistulization to the sigmoid colon on series 3 image 236; colorectal surgery notified to review and offer any recommendation--> NO change in plan as of 12/15 Assessment & Plan (12/14/2024 10:58 AM CDT): Multiple prior admissions- last discharged on 10/22/24 with plans for o/p colonoscopy on suppressive antibiotics. Colonoscopy this admission (11/03) with evidence of extrinsic compression, no fistula appreciated, unable to intubate cecal base. Was scheduled for exploratory laparotomy, takedown of colovesical fistula, sigmoidectomy, and possible colostomy and preoperative stent placement. The procedure was aborted due to cardiac arrest during intubation-lost airway visualization 2/2 bleeding and need emergency cric. - Too sick and debilitated to proceed with surgery inpatient per multiple discussion with CRS; discussions been made with patient and - Continue TPN+clear diet, antibiotics as noted above - Call and notify CRS when closer to [place] so can make clinic appointment - Change to IV Zofran - Add Tigan IM for nausea given PICC line occlusion Assessment & Plan (12/14/2024 10:59 AM CDT): Multiple prior admissions- last discharged on 10/22/24 with plans for o/p colonoscopy on suppressive antibiotics. Colonoscopy this admission (11/03) with evidence of extrinsic compression, no fistula appreciated, unable to intubate cecal base. Was scheduled for exploratory laparotomy, takedown of colovesical fistula, sigmoidectomy, and possible colostomy and preoperative stent placement. The procedure was aborted due to cardiac arrest during intubation-lost airway visualization 2/2 bleeding and need emergency cric. - Too sick and debilitated to proceed with surgery inpatient per multiple discussion with CRS; discussions been made with patient and - Continue TPN+clear diet, antibiotics as noted above - Call and notify CRS when closer to [place] so can make clinic appointment - Change to IV Zofran Assessment & Plan (12/12/2024 2:48 PM CDT): Multiple prior admissions- last discharged on 10/22/24 with plans for o/p colonoscopy on suppressive antibiotics. Colonoscopy this admission (11/03) with evidence of extrinsic compression, no fistula appreciated, unable to intubate cecal base. Was scheduled for exploratory laparotomy, takedown of colovesical fistula, sigmoidectomy, and possible colostomy and preoperative stent placement. The procedure was aborted due to cardiac arrest during intubation-lost airway visualization 2/2 bleeding and need emergency cric. - Too sick and debilitated to proceed with surgery inpatient per multiple discussion with CRS; discussions been made with patient and - Continue TPN+clear diet, antibiotics as noted above - Call and notify CRS when closer to [place] so can make clinic appointment Assessment & Plan (12/11/2024 8:52 PM CDT): Multiple prior admissions- last discharged on 10/22/24 with plans for o/p colonoscopy on suppressive antibiotics. Colonoscopy this admission (11/03) with evidence of extrinsic compression, no fistula appreciated, unable to intubate cecal base. Was scheduled for exploratory laparotomy, takedown of colovesical fistula, sigmoidectomy, and possible colostomy and preoperative stent placement. The procedure was aborted due to cardiac arrest during intubation-lost airway visualization 2/2 bleeding and need emergency cric. - Too sick and debilitated to proceed with surgery inpatient per multiple discussion with CRS; discussions been made with patient and - Continue TPN, antibiotics as noted above - Call and notify CRS when closer to [place] so can make clinic appointment Assessment & Plan (12/10/2024 2:27 PM CDT): Multiple prior admissions- last discharged on 10/22/24 with plans for o/p colonoscopy on suppressive antibiotics. Colonoscopy this admission (11/03) with evidence of extrinsic compression, no fistula appreciated, unable to intubate cecal base. Was scheduled for exploratory laparotomy, takedown of colovesical fistula, sigmoidectomy, and possible colostomy and preoperative stent placement. The procedure was aborted due to cardiac arrest during intubation-lost airway visualization 2/2 bleeding and need emergency cric. 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 CRS asked to come back and discuss with them on 11/21/24. - CRS has signed off - plan to f/u in clinic, appointment scheduled OP for 12/10 to evaluate clinical status and discuss plans for re-attempting surgery; given the patient's complexity at this time, it's unlikely that she will get to 12/10/2024 appointment. By Sunday, I will speak to CRS to consider moving that appointment and having them see her inpatient. - ID recommend PO abx - C/w TPN- f/u nutrition recs; only clear liquid intake - reclarified with CRS- plan is no surgery this admission. To discharge home when able and f/u as outpatient to discuss timing of surgery. Discussed with them today, notify them when patient getting closer to [place] Assessment & Plan (12/09/2024 2:27 PM CDT): Multiple prior admissions- last discharged on 10/22/24 with plans for o/p colonoscopy on suppressive antibiotics. Colonoscopy this admission (11/03) with evidence of extrinsic compression, no fistula appreciated, unable to intubate cecal base. Was scheduled for exploratory laparotomy, takedown of colovesical fistula, sigmoidectomy, and possible colostomy and preoperative stent placement. The procedure was aborted due to cardiac arrest during intubation-lost airway visualization 2/2 bleeding and need emergency cric. 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 CRS asked to come back and discuss with them on 11/21/24. - CRS has signed off - plan to f/u in clinic, appointment scheduled OP for 12/10 to evaluate clinical status and discuss plans for re-attempting surgery; given the patient's complexity at this time, it's unlikely that she will get to 12/10/2024 appointment. By Sunday, I will speak to CRS to consider moving that appointment and having them see her inpatient. - ID recommend PO abx - C/w TPN- f/u nutrition recs; only clear liquid intake - reclarified with CRS- plan is no surgery this admission. To discharge home when able and f/u as outpatient to discuss timing of surgery Assessment & Plan (12/08/2024 2:09 PM CDT): Multiple prior admissions- last discharged on 10/22/24 with plans for o/p colonoscopy on suppressive antibiotics. Colonoscopy this admission (11/03) with evidence of extrinsic compression, no fistula appreciated, unable to intubate cecal base. Was scheduled for exploratory laparotomy, takedown of colovesical fistula, sigmoidectomy, and possible colostomy and preoperative stent placement. The procedure was aborted due to cardiac arrest during intubation-lost airway visualization 2/2 bleeding and need emergency cric. 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 CRS asked to come back and discuss with them on 11/21/24. - CRS has signed off - plan to f/u in clinic, appointment scheduled OP for 12/10 to evaluate clinical status and discuss plans for re-attempting surgery; given the patient's complexity at this time, it's unlikely that she will get to 12/10/2024 appointment. By Sunday, I will speak to CRS to consider moving that appointment and having them see her inpatient. - ID recommend PO abx - C/w TPN- f/u nutrition recs; only clear liquid intake, TPN dependent - reclarified with CRS- plan is no surgery this admission. To discharge home when able and f/u as outpatient to discuss timing of surgery Assessment & Plan (12/07/2024 1:18 PM CDT): Multiple prior admissions- last discharged on 10/22/24 with plans for o/p colonoscopy on suppressive antibiotics. Colonoscopy this admission (11/03) with evidence of extrinsic compression, no fistula appreciated, unable to intubate cecal base. Was scheduled for exploratory laparotomy, takedown of colovesical fistula, sigmoidectomy, and possible colostomy and preoperative stent placement. The procedure was aborted due to cardiac arrest during intubation-lost airway visualization 2/2 bleeding and need emergency cric. 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 CRS asked to come back and discuss with them on 11/21/24. - CRS has signed off - plan to f/u in clinic, appointment scheduled OP for 12/10 to evaluate clinical status and discuss plans for re-attempting surgery; given the patient's complexity at this time, it's unlikely that she will get to 12/10/2024 appointment. By Sunday, I will speak to CRS to consider moving that appointment and having them see her inpatient. - ID recommend PO abx - C/w TPN- f/u nutrition recs; only clear liquid intake, TPN dependent - reclarified with CRS- plan is no surgery this admission. To discharge home when able and f/u as outpatient to discuss timing of surgery Assessment & Plan (12/06/2024 2:19 PM CDT): Multiple prior admissions- last discharged on 10/22/24 with plans for o/p colonoscopy on suppressive antibiotics. Colonoscopy this admission (11/03) with evidence of extrinsic compression, no fistula appreciated, unable to intubate cecal base. Was scheduled for exploratory laparotomy, takedown of colovesical fistula, sigmoidectomy, and possible colostomy and preoperative stent placement. The procedure was aborted due to cardiac arrest during intubation-lost airway visualization 2/2 bleeding and need emergency cric. 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 CRS asked to come back and discuss with them on 11/21/24. - CRS has signed off - plan to f/u in clinic, appointment scheduled OP for 12/10 to evaluate clinical status and discuss plans for re-attempting surgery; given the patient's complexity at this time, it's unlikely that she will get to 12/10/2024 appointment. By Sunday, I will speak to CRS to consider moving that appointment and having them see her inpatient. - ID recommend PO abx - C/w TPN- f/u nutrition recs; only clear liquid intake, TPN dependent - reclarified with CRS- plan is no surgery this admission. To discharge home when able and f/u as outpatient to discuss timing of surgery Assessment & Plan (12/05/2024 4:47 PM CDT): Multiple prior admissions- last discharged on 10/22/24 with plans for o/p colonoscopy on suppressive antibiotics. Colonoscopy this admission (11/03) with evidence of extrinsic compression, no fistula appreciated, unable to intubate cecal base. Was scheduled for exploratory laparotomy, takedown of colovesical fistula, sigmoidectomy, and possible colostomy and preoperative stent placement. The procedure was aborted due to cardiac arrest during intubation-lost airway visualization 2/2 bleeding and need emergency cric. 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 CRS asked to come back and discuss with them on 11/21/24. - CRS has signed off - plan to f/u in clinic, appointment scheduled OP for 12/10 to evaluate clinical status and discuss plans for re-attempting surgery; given the patient's complexity at this time, it's unlikely that she will get to 12/10/2024 appointment. By Sunday, I will speak to CRS to consider moving that appointment and having them see her inpatient. - ID recommend PO abx - C/w TPN- f/u nutrition recs; only clear liquid intake, TPN dependent - reclarified with CRS- plan is no surgery this admission. To discharge home when able and f/u as outpatient to discuss timing of surgery Assessment & Plan (12/04/2024 2:08 PM CDT): Multiple prior admissions- last discharged on 10/22/24 with plans for o/p colonoscopy on suppressive antibiotics. Colonoscopy this admission (11/03) with evidence of extrinsic compression, no fistula appreciated, unable to intubate cecal base. Was scheduled for exploratory laparotomy, takedown of colovesical fistula, sigmoidectomy, and possible colostomy and preoperative stent placement. The procedure was aborted due to cardiac arrest during intubation-lost airway visualization 2/2 bleeding and need emergency cric. 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 CRS asked to come back and discuss with them on 11/21/24. - CRS has signed off - plan to f/u in clinic, appointment scheduled OP for 12/10 to evaluate clinical status and discuss plans for re-attempting surgery; given the patient's complexity at this time, it's unlikely that she will get to 12/10/2024 appointment. By Sunday, I will speak to CRS to consider moving that appointment and having them see her inpatient. - ID recommend PO abx - C/w TPN- f/u nutrition recs; only clear liquid intake, TPN dependent - reclarified with CRS- plan is no surgery this admission. To discharge home when able and f/u as outpatient to discuss timing of surgery Assessment & Plan (12/03/2024 6:06 PM CDT): Multiple prior admissions- last discharged on 10/22/24 with plans for o/p colonoscopy on suppressive antibiotics. Colonoscopy this admission (11/03) with evidence of extrinsic compression, no fistula appreciated, unable to intubate cecal base. Was scheduled for exploratory laparotomy, takedown of colovesical fistula, sigmoidectomy, and possible colostomy and preoperative stent placement. The procedure was aborted due to cardiac arrest during intubation-lost airway visualization 2/2 bleeding and need emergency cric. 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 CRS asked to come back and discuss with them on 11/21/24. - CRS has signed off - plan to f/u in clinic, appointment scheduled OP for 12/10 to evaluate clinical status and discuss plans for re-attempting surgery; given the patient's complexity at this time, it's unlikely that she will get to 12/10/2024 appointment. By Sunday, I will speak to CRS to consider moving that appointment and having them see her inpatient. - ID recommend PO abx - C/w TPN- f/u nutrition recs; only clear liquid intake, TPN dependent - reclarified with CRS- plan is no surgery this admission. To discharge home when able and f/u as outpatient to discuss timing of surgery Assessment & Plan (12/02/2024 2:26 PM CDT): Multiple prior admissions- last discharged on 10/22/24 with plans for o/p colonoscopy on suppressive antibiotics. Colonoscopy this admission (11/03) with evidence of extrinsic compression, no fistula appreciated, unable to intubate cecal base. Was scheduled for exploratory laparotomy, takedown of colovesical fistula, sigmoidectomy, and possible colostomy and preoperative stent placement. The procedure was aborted due to cardiac arrest during intubation-lost airway visualization 2/2 bleeding and need emergency cric. 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 CRS asked to come back and discuss with them on 11/21/24. - CRS has signed off - plan to f/u in clinic, appointment scheduled OP for 12/10 to evaluate clinical status and discuss plans for re-attempting surgery; given the patient's complexity at this time, it's unlikely that she will get to 12/10/2024 appointment. By Sunday, I will speak to CRS to consider moving that appointment and having them see her inpatient. - ID recommend PO abx - C/w TPN- f/u nutrition recs; only clear liquid intake, TPN dependent - reclarified with CRS- plan is no surgery this admission. To discharge home when able and f/u as outpatient to discuss timing of surgery Assessment & Plan (12/01/2024 9:54 AM CDT): Multiple prior admissions- last discharged on 10/22/24 with plans for o/p colonoscopy on suppressive antibiotics. Colonoscopy this admission (11/03) with evidence of extrinsic compression, no fistula appreciated, unable to intubate cecal base. Was scheduled for exploratory laparotomy, takedown of colovesical fistula, sigmoidectomy, and possible colostomy and preoperative stent placement. The procedure was aborted due to cardiac arrest during intubation-lost airway visualization 2/2 bleeding and need emergency cric. 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 CRS asked to come back and discuss with them on 11/21/24. - CRS has signed off - plan to f/u in clinic, appointment scheduled OP for 12/10 to evaluate clinical status and discuss plans for re-attempting surgery. - ID recommend PO abx - C/w TPN- f/u nutrition recs -Check daily labs - reclarified with CRS- plan is no surgery this admission. To discharge home when able and f/u as outpatient to discuss timing of surgery -will discuss oral intake with CRS Assessment & Plan (11/30/2024 1:01 PM CDT): Multiple prior admissions- last discharged on 10/22/24 with plans for o/p colonoscopy on suppressive antibiotics. Colonoscopy this admission (11/03) with evidence of extrinsic compression, no fistula appreciated, unable to intubate cecal base. Was scheduled for exploratory laparotomy, takedown of colovesical fistula, sigmoidectomy, and possible colostomy and preoperative stent placement. The procedure was aborted due to cardiac arrest during intubation-lost airway visualization 2/2 bleeding and need emergency cric. 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 CRS asked to come back and discuss with them on 11/21/24. - CRS has signed off - plan to f/u in clinic, appointment scheduled OP for 12/10 to evaluate clinical status and discuss plans for re-attempting surgery. - ID recommend PO abx - C/w TPN- f/u nutrition recs -Check daily labs - reclarified with CRS- plan is no surgery this admission. To discharge home when able and f/u as outpatient to discuss timing of surgery Assessment & Plan (11/29/2024 11:20 AM CDT): Multiple prior admissions- last discharged on 10/22/24 with plans for o/p colonoscopy on suppressive antibiotics. Colonoscopy this admission (11/03) with evidence of extrinsic compression, no fistula appreciated, unable to intubate cecal base. Was scheduled for exploratory laparotomy, takedown of colovesical fistula, sigmoidectomy, and possible colostomy and preoperative stent placement. The procedure was aborted due to cardiac arrest during intubation-lost airway visualization 2/2 bleeding and need emergency cric. 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 CRS asked to come back and discuss with them on 11/21/24. - CRS has signed off - plan to f/u in clinic, appointment scheduled OP for 12/10 to evaluate clinical status and discuss plans for re-attempting surgery. - ID recommend PO abx - C/w TPN- f/u nutrition recs -Check daily labs - reclarified with CRS- plan is no surgery this admission. To discharge home when able and f/u as outpatient to discuss timing of surgery Assessment & Plan (11/28/2024 1:42 PM CDT): Multiple prior admissions- last discharged on 10/22/24 with plans for o/p colonoscopy on suppressive antibiotics. Colonoscopy this admission (11/03) with evidence of extrinsic compression, no fistula appreciated, unable to intubate cecal base. Was scheduled for exploratory laparotomy, takedown of colovesical fistula, sigmoidectomy, and possible colostomy and preoperative stent placement. The procedure was aborted due to cardiac arrest during intubation-lost airway visualization 2/2 bleeding and need emergency cric. 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 CRS asked to come back and discuss with them on 11/21/24. - CRS has signed off - plan to f/u in clinic, appointment scheduled OP for 12/10 to evaluate clinical status and discuss plans for re-attempting surgery. - ID recommend PO abx - C/w TPN- f/u nutrition recs -Check daily labs - reclarified with CRS- plan is no surgery this admission. To discharge home when able and f/u as outpatient to discuss timing of surgery Assessment & Plan (11/27/2024 10:16 AM CDT): Multiple prior admissions- last discharged on 10/22/24 with plans for o/p colonoscopy on suppressive antibiotics. Colonoscopy this admission (11/03) with evidence of extrinsic compression, no fistula appreciated, unable to intubate cecal base. Was scheduled for exploratory laparotomy, takedown of colovesical fistula, sigmoidectomy, and possible colostomy and preoperative stent placement. The procedure was aborted due to cardiac arrest during intubation. Patient and asking to speak with CRS team about operating while inpatient and while she has an airway: too sick for the operation and want her to heal from her current tracheostomy prior to proceeding. CRS asked to come back and discuss with them on 11/21/24. - CRS has signed off - plan to f/u in clinic, appointment scheduled OP for 12/10 to evaluate clinical status and discuss plans for re-attempting surgery. - ID recommend PO abx - C/w TPN- f/u nutrition recs -Check daily labs - reclarified with CRS- plan is no surgery this admission. To discharge home when able and f/u as outpatient to discuss timing of surgery Assessment & Plan (11/26/2024 12:13 PM CDT): Multiple prior admissions- last discharged on 10/22/24 with plans for o/p colonoscopy on suppressive antibiotics. Colonoscopy this admission (11/03) with evidence of extrinsic compression, no fistula appreciated, unable to intubate cecal base. Was scheduled for exploratory laparotomy, takedown of colovesical fistula, sigmoidectomy, and possible colostomy and preoperative stent placement. The procedure was aborted due to cardiac arrest during intubation. Patient and asking to speak with CRS team about operating while inpatient and while she has an airway: too sick for the operation and want her to heal from her current tracheostomy prior to proceeding. CRS asked to come back and discuss with them on 11/21/24. - CRS has signed off - plan to f/u in clinic, appointment scheduled OP for 12/10 to evaluate clinical status and discuss plans for re-attempting surgery. - ID recommend PO abx - C/w TPN- f/u nutrition recs -Check daily labs - patient states told would stay inpatient until mtg 12/11 per CRS and then proceed with surgery-need to clarify CRS plan and confirm that don't need to keep trach for surgery Assessment & Plan (11/25/2024 3:35 PM CDT): Multiple prior admissions- last discharged on 10/22/24 with plans for o/p colonoscopy on suppressive antibiotics. Colonoscopy this admission (11/03) with evidence of extrinsic compression, no fistula appreciated, unable to intubate cecal base. Was scheduled for exploratory laparotomy, takedown of colovesical fistula, sigmoidectomy, and possible colostomy and preoperative stent placement. The procedure was aborted due to cardiac arrest during intubation. Patient and asking to speak with CRS team about operating while inpatient and while she has an airway: too sick for the operation and want her to heal from her current tracheostomy prior to proceeding. CRS asked to come back and discuss with them on 11/21/24. - CRS has signed off - plan to f/u in clinic, appointment scheduled OP for 12/10 to evaluate clinical status and discuss plans for re-attempting surgery. - ID recommend PO abx - C/w TPN- f/u nutrition recs -Check daily labs Assessment & Plan (11/24/2024 11:40 PM CDT): Multiple prior admissions- last discharged on 10/22/24 with plans for o/p colonoscopy on suppressive antibiotics Colonoscopy this admission (11/03) with evidence of extrinsic compression, no fistula appreciated, unable to intubate cecal base. Was scheduled for exploratory laparotomy, takedown of colovesical fistula, sigmoidectomy, and possible colostomy and preoperative stent placement. The procedure was aborted due to cardiac arrest during intubation. Patient and asking to speak with CRS team about operating while inpatient and while she has an airway: too sick for the operation and want her to heal from her current tracheostomy prior to proceeding.CRS asked to come back and discuss with them on 11/21/2024. - CRS has signed off - plan to f/u in clinic appointment scheduled OP for 12/10- to evaluate clinical status and discuss plans for re-attempting surgery. - ID recommend PO abx - C/w TPN- f/u nutrition recs -Check daily labs Assessment & Plan (11/23/2024 8:59 PM CDT): Multiple prior admissions- last discharged on 10/22/24 with plans for o/p colonoscopy on suppressive antibiotics Colonoscopy this admission (11/03) with evidence of extrinsic compression, no fistula appreciated, unable to intubate cecal base. Was scheduled for exploratory laparotomy, takedown of colovesical fistula, sigmoidectomy, and possible colostomy and preoperative stent placement. The procedure was aborted due to cardiac arrest during intubation. Patient and asking to speak with CRS team about operating while inpatient and while she has an airway: too sick for the operation and want her to heal from her current tracheostomy prior to proceeding.CRS asked to come back and discuss with them on 11/21/2024. - CRS has signed off - plan to f/u outpatient appointment scheduled OP for 12/10- to evaluate clinical status and discuss plans for re-attempting surgery. - ID recommend PO abx - C/w TPN- f/u nutrition recs -labs last night contaminated, redrawn, potassium content adjusted .Check daily labs Assessment & Plan (11/22/2024 7:23 PM CDT): Multiple prior admissions- last discharged on 10/22/24 with plans for o/p colonoscopy on suppressive antibiotics Colonoscopy this admission (11/03) with evidence of extrinsic compression, no fistula appreciated, unable to intubate cecal base. Was scheduled for exploratory laparotomy, takedown of colovesical fistula, sigmoidectomy, and possible colostomy and preoperative stent placement. The procedure was aborted due to cardiac arrest during intubation. Patient and asking to speak with CRS team about operating while inpatient and while she has an airway: too sick for the operation and want her to heal from her current tracheostomy prior to proceeding.CRS asked to come back and discuss with them on 11/21/2024. - CRS has signed off - plan to f/u outpatient appointment scheduled OP for 12/10 - ID recommend PO abx - C/w TPN- f/u nutrition recs -labs last night contaminated, redrawn, potassium content adjusted .Check daily labs Assessment & Plan (11/21/2024 3:52 PM CDT): Multiple prior admissions- last discharged on 10/22/24 with plans for o/p colonoscopy on suppressive antibiotics Colonoscopy this admission (11/03) with evidence of extrinsic compression, no fistula appreciated, unable to intubate cecal base. Was scheduled for exploratory laparotomy, takedown of colovesical fistula, sigmoidectomy, and possible colostomy and preoperative stent placement. The procedure was aborted due to cardiac arrest during intubation. Patient and asking to speak with CRS team about operating while inpatient and while she has an airway. Per our discussion, she is too sick for the operation and want her to heal from her current tracheostomy prior to proceeding. We have reinforced CRS's plan with the patient and have asked CRC to come back and discuss with them on 11/21/2024. - CRS has signed off - plan to f/u outpatient appointment scheduled OP for 12/10 - ID recommend PO abx - C/w TPN- f/u nutrition recs continue home provera and topiramate Assessment & Plan (11/20/2024 3:42 PM CDT): Multiple prior admissions- last discharged on 10/22/24 with plans for o/p colonoscopy on suppressive antibiotics Colonoscopy this admission (11/03) with evidence of extrinsic compression, no fistula appreciated, unable to intubate cecal base. Was scheduled for exploratory laparotomy, takedown of colovesical fistula, sigmoidectomy, and possible colostomy and preoperative stent placement c/b arrest during induction requiring cricothyrodotomy that was converted to revision tracheostomy. Plan CRS signed off 11/17- no plan for sx this admission, o/p f/u ID recommend PO abx C/w TPN- f/u nutrition recs continue home provera and topiramate Assessment & Plan (11/19/2024 12:57 PM CDT): Multiple prior admissions- last discharged on 10/22/24 with plans for o/p colonoscopy on suppressive antibiotics Colonoscopy this admission (11/03) with evidence of extrinsic compression, no fistula appreciated, unable to intubate cecal base. Was scheduled for exploratory laparotomy, takedown of colovesical fistula, sigmoidectomy, and possible colostomy and preoperative stent placement c/b arrest during induction requiring cricothyrodotomy that was converted to revision tracheostomy. Plan CRS signed off 11/17- no plan for sx this admission, o/p f/u Consult with ID for recommendations on o/p antibiotic regimen C/w TPN- f/u nutrition recs continue home provera and topiramate Assessment & Plan (11/18/2024 6:00 PM CDT): Multiple prior admissions- last discharged on 10/22/24 with plans for o/p colonoscopy on suppressive antibiotics Colonoscopy this admission (11/03) with evidence of extrinsic compression, no fistula appreciated, unable to intubate cecal base. Was scheduled for exploratory laparotomy, takedown of colovesical fistula, sigmoidectomy, and possible colostomy and preoperative stent placement c/b arrest during induction requiring cricothyrodotomy that was converted to revision tracheostomy. 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 12/04/2024 - replaced with 22Fr [address] way mcclelland catheter; irrigation 30cc bid - 12/24 Tmax=38.7, WBC=7.79k-check cultures-pending, viral swab(-) - 12/25 Tmax=39.2, hemodynamically stable, per ID monitor and hold on empiric IV abx, monitor-BCx's (+) for ruddy albicans-start micafungin - 12/26 ECHO with no vegetations - 12/27 (-) exam per ophtha for ocular fungemia-will ask for peripheral IV-BCx x 1 sent - 12/28 PICC line pulled, repeat BCx sent, 12/27 BC with staph epi-likely contaminant 12/29 - growing staph epidermidis -> likely contaminant 12/30 - Repeat blood cultures sent on 12/30 NGTD - 01/03- picc line placed for home Na thisulphate at discharge - 01/09/2025- completed 2 weeks of iv micafungin from neg cx 12/27 Assessment & Plan (01/17/2025 2:32 PM CDT): -Etiology: 2/ colovesical fistula, UA (10/30)- nitrite+, leuk esterase+, pyuria, bacteriuria+, Urine cx- contaminated- mixed krzysztof -CT A/P 10/30- no pyelonephritis, notable for acute on chronic diverticulitis, and 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 12/04/2024 - replaced with 22Fr [address] way mcclelland catheter; irrigation 30cc bid - 12/24 Tmax=38.7, WBC=7.79k-check cultures-pending, viral swab(-) - 12/25 Tmax=39.2, hemodynamically stable, per ID monitor and hold on empiric IV abx, monitor-BCx's (+) for ruddy albicans-start micafungin - 12/26 ECHO with no vegetations - 12/27 (-) exam per ophtha for ocular fungemia-will ask for peripheral IV-BCx x 1 sent - 12/28 PICC line pulled, repeat BCx sent, 12/27 BC with staph epi-likely contaminant 12/29 - growing staph epidermidis -> likely contaminant 12/30 - Repeat blood cultures sent on 12/30 NGTD - 01/03- picc line placed for home Na thisulphate at discharge - 01/09/2025- completed 2 weeks of iv micafungin from neg cx 12/27 Assessment & Plan (01/16/2025 9:26 PM CDT): -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, UA (10/30)- nitrite+, leuk esterase+, pyuria, bacteriuria+, Urine cx- contaminated- mixed krzysztof -CT A/P 10/30- no pyelonephritis, notable for acute on chronic diverticulitis, and 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 12/04/2024 - replaced with 22Fr [address] way mcclelland catheter; irrigation 30cc bid - 12/24 Tmax=38.7, WBC=7.79k-check cultures-pending, viral swab(-) - 12/25 Tmax=39.2, hemodynamically stable, per ID monitor and hold on empiric IV abx, monitor-BCx's (+) for ruddy albicans-start micafungin - 12/26 ECHO with no vegetations - 12/27 (-) exam per ophtha for ocular fungemia-will ask for peripheral IV-BCx x 1 sent - 12/28 PICC line pulled, repeat BCx sent, 12/27 BC with staph epi-likely contaminant 12/29 - growing staph epidermidis -> likely contaminant 12/30 - Repeat blood cultures sent on 12/30 NGTD - 01/03- picc line placed for home Na thisulphate at discharge - 01/09/2025- completed 2 weeks of iv micafungin from neg cx 12/27 Assessment & Plan (01/15/2025 9:08 PM CDT): -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, UA (10/30)- nitrite+, leuk esterase+, pyuria, bacteriuria+, Urine cx- contaminated- mixed krzysztof -CT A/P 10/30- no pyelonephritis, notable for acute on chronic diverticulitis, and 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 Antibiotics: Zosyn (11/05 - 11/18) Linezolid (10/31 - 11/18) Unasyn (11/01 - 11/05)Augmentin (10/30 - 10/31), Cefe, metronidazole (12/12-12/21) Augmentin BID (11/18-) Tedizolid 200mg daily (11/18-) until surgery with CRS - - needs new PA for tedizolid - denied -appealing - 01/14: - PA for tedizolid was appealed- denial was upheld, with a 24 hour window to provide additional documentation, Discussed with ID team, who documented the necessity for prolonged antibiotic course , which was faxed over by the CM 01/15- PA pending - Mcclelland indication: 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 12/04/2024 - replaced with 22Fr [address] way mcclelland catheter; irrigation 30cc bid - 12/24 Tmax=38.7, WBC=7.79k-check cultures-pending, viral swab(-) - 12/25 Tmax=39.2, hemodynamically stable, per ID monitor and hold on empiric IV abx, monitor-BCx's (+) for ruddy albicans-start micafungin - 12/26 ECHO with no vegetations - 12/27 (-) exam per ophtha for ocular fungemia-will ask for peripheral IV-BCx x 1 sent - 12/28 PICC line pulled, repeat BCx sent, 12/27 BC with staph epi-likely contaminant 12/29 - growing staph epidermidis -> likely contaminant 12/30 - Repeat blood cultures sent on 12/30 NGTD - 01/03- picc line placed for home Na thisulphate at discharge - 01/09/2025- completed 2 weeks of iv micafungin from neg cx 12/27 Assessment & Plan (01/14/2025 11:05 PM CDT): -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, UA (10/30)- nitrite+, leuk esterase+, pyuria, bacteriuria+, Urine cx- contaminated- mixed krzysztof -CT A/P 10/30- no pyelonephritis, notable for acute on chronic diverticulitis, and 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 12/04/2024 - replaced with 22Fr [address] way mcclelland catheter; irrigation 30cc bid - 12/24 Tmax=38.7, WBC=7.79k-check cultures-pending, viral swab(-) - 12/25 Tmax=39.2, hemodynamically stable, per ID monitor and hold on empiric IV abx, monitor-BCx's (+) for ruddy albicans-start micafungin - 12/26 ECHO with no vegetations - 12/27 (-) exam per ophtha for ocular fungemia-will ask for peripheral IV-BCx x 1 sent - 12/28 PICC line pulled, repeat BCx sent, 12/27 BC with staph epi-likely contaminant 12/29 - growing staph epidermidis -> likely contaminant 12/30 - Repeat blood cultures sent on 12/30 NGTD - 01/03- picc line placed for home Na thisulphate at discharge - 01/09/2025- completed 2 weeks of iv micafungin from neg cx 12/27 Assessment & Plan (01/13/2025 8:04 PM CDT): -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, UA (10/30)- nitrite+, leuk esterase+, pyuria, bacteriuria+, Urine cx- contaminated- mixed krzysztof -CT A/P 10/30- no pyelonephritis, notable for acute on chronic diverticulitis, and 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 12/04/2024 - replaced with 22Fr 3 way mcclelland catheter; irrigation 30cc bid - 12/24 Tmax=38.7, WBC=7.79k-check cultures-pending, viral swab(-) - 12/25 Tmax=39.2, hemodynamically stable, per ID monitor and hold on empiric IV abx, monitor-BCx's (+) for ruddy albicans-start micafungin - 12/26 ECHO with no vegetations - 12/27 (-) exam per ophtha for ocular fungemia-will ask for peripheral IV-BCx x 1 sent - 12/28 PICC line pulled, repeat BCx sent, 12/27 BC with staph epi-likely contaminant 12/29 - growing staph epidermidis -> likely contaminant 12/30 - Repeat blood cultures sent on 12/30 NGTD - 01/03- picc line placed for home Na thisulphate at discharge - 01/09/2025- completed 2 weeks of iv micafungin from neg cx 12/27 Assessment & Plan (01/12/2025 1:20 PM CDT): -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 12/04/2024 - replaced with 22Fr [address] way mcclelland catheter; irrigation 30cc bid - 12/24 Tmax=38.7, WBC=7.79k-check cultures-pending, viral swab(-) - 12/25 Tmax=39.2, hemodynamically stable, per ID monitor and hold on empiric IV abx, monitor-BCx's (+) for ruddy albicans-start micafungin - 12/26 ECHO with no vegetations - 12/27 (-) exam per ophtha for ocular fungemia-will ask for peripheral IV-BCx x 1 sent - 12/28 PICC line pulled, repeat BCx sent, 12/27 BC with staph epi-likely contaminant 12/29 - growing staph epidermidis -> likely contaminant 12/30 - Repeat blood cultures sent on 12/30 NGTD - 01/03- picc line placed for home Na thisulphate at discharge - but decrease dose to 12.5 gm 3X/week - patient to receive 2 weeks of iv micafungin from when the cultures became neg ie (Last growth of ruddy noted on cx from 12/24 ) neg cx n 12/27 - EOT 01/09/2501/04- does not feel ready to be dicharged, wants to continue intensive PT. 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 12/04/2024 - replaced with 22Fr [address] mcclelland catheter; irrigation 30cc bid - 12/24 Tmax=38.7, WBC=7.79k-check cultures-pending, viral swab(-) - 12/25 Tmax=39.2, hemodynamically stable, per ID monitor and hold on empiric IV abx, monitor-BCx's (+) for ruddy albicans-start micafungin - 12/26 ECHO with no vegetations - 12/27 (-) exam per ophtha for ocular fungemia-will ask for peripheral IV-BCx x 1 sent - 12/28 PICC line pulled, repeat BCx sent, 12/27 BC with staph epi-likely contaminant 12/29 - growing staph epidermidis -> likely contaminant 12/30 - Repeat blood cultures sent on 12/30 NGTD - 01/03- picc line placed for home Na thisulphate at discharge - but decrease dose to 12.5 gm 3X/week - patient to receive 2 weeks of iv micafungin from when the cultures became neg ie (Last growth of ruddy noted on cx from 12/24 ) neg cx n 12/27 - EOT 01/09/2501/04- does not feel ready to be dicharged, wants to continue intensive PT. 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 12/04/2024 - replaced with 22Fr [address] mcclelland catheter; irrigation 30cc bid - 12/24 Tmax=38.7, WBC=7.79k-check cultures-pending, viral swab(-) - 12/25 Tmax=39.2, hemodynamically stable, per ID monitor and hold on empiric IV abx, monitor-BCx's (+) for ruddy albicans-start micafungin - 12/26 ECHO with no vegetations - 12/27 (-) exam per ophtha for ocular fungemia-will ask for peripheral IV-BCx x 1 sent - 12/28 PICC line pulled, repeat BCx sent, 12/27 BC with staph epi-likely contaminant 12/29 - growing staph epidermidis -> likely contaminant 12/30 - Repeat blood cultures sent on 12/30 NGTD - 01/03- picc line placed for home Na thisulphate at discharge - but decrease dose to 12.5 gm 3X/week - patient to receive 2 weeks of iv micafungin from when the cultures became neg ie (Last growth of ruddy noted on cx from 12/24 ) neg cx n 12/27 - EOT 01/09/25 at 1700 01/04- does not feel ready to be dicharged, wants to continue intensive PT. 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 12/04/2024 - replaced with 22Fr [address] mcclelland catheter; irrigation 30cc bid - 12/24 Tmax=38.7, WBC=7.79k-check cultures-pending, viral swab(-) - 12/25 Tmax=39.2, hemodynamically stable, per ID monitor and hold on empiric IV abx, monitor-BCx's (+) for rdudy albicans-start micafungin - 12/26 ECHO with no vegetations - 12/27 (-) exam per ophtha for ocular fungemia-will ask for peripheral IV-BCx x 1 sent - 12/28 PICC line pulled, repeat BCx sent, 12/27 BC with staph epi-likely contaminant 12/29 - growing staph epidermidis -> likely contaminant 12/30 - Repeat blood cultures sent on 12/30 NGTD - 01/03- picc line placed for home Na thisulphate at discharge - but decrease dose to 12.5 gm 3X/week - patient to receive 2 weeks of iv micafungin from when the cultures became neg ie (Last growth of ruddy noted on cx from 12/24 ) neg cx n 12/27 - EOT 01/09/25 at 1700 01/04- does not feel ready to be dicharged, wants to continue intensive PT. 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 12/04/2024 - replaced with 22Fr [address] mcclelland catheter; irrigation 30cc bid - 12/24 Tmax=38.7, WBC=7.79k-check cultures-pending, viral swab(-) - 12/25 Tmax=39.2, hemodynamically stable, per ID monitor and hold on empiric IV abx, monitor-BCx's (+) for ruddy albicans-start micafungin - 12/26 ECHO with no vegetations - 12/27 (-) exam per ophtha for ocular fungemia-will ask for peripheral IV-BCx x 1 sent - 12/28 PICC line pulled, repeat BCx sent, 12/27 BC with staph epi-likely contaminant 12/29 - growing staph epidermidis -> likely contaminant 12/30 - Repeat blood cultures sent on 12/30 NGTD - 01/03- picc line placed for home Na thisulphate at discharge - but decrease dose to 12.5 gm 3X/week - patient to receive 2 weeks of iv micafungin from when the cultures became neg ie (Last growth of ruddy noted on cx from 12/24 ) neg cx n 12/27 - EOT 01/09/25 at 1700 01/04- does not feel ready to be dicharged, wants to continue intensive PT. 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 12/04/2024 - replaced with 22Fr [address] mcclelland catheter; irrigation 30cc bid - 12/24 Tmax=38.7, WBC=7.79k-check cultures-pending, viral swab(-) - 12/25 Tmax=39.2, hemodynamically stable, per ID monitor and hold on empiric IV abx, monitor-BCx's (+) for ruddy albicans-start micafungin - 12/26 ECHO with no vegetations - 12/27 (-) exam per ophtha for ocular fungemia-will ask for peripheral IV-BCx x 1 sent - 12/28 PICC line pulled, repeat BCx sent, 12/27 BC with staph epi-likely contaminant 12/29 - growing staph epidermidis -> likely contaminant 12/30 - Repeat blood cultures sent on 12/30 NGTD - 01/03- picc line placed for home Na thisulphate at discharge - but decrease dose to 12.5 gm 3X/week - patient to receive 2 weeks of iv micafungin from when the cultures became neg ie (Last growth of ruddy noted on cx from 12/24 ) neg cx n 12/27 - EOT 01/09/25 at 1700 01/04- does not feel ready to be dicharged, wants to continue intensive PT. 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 12/04/2024 - replaced with 22Fr [address] mcclelland catheter; irrigation 30cc bid - 12/24 Tmax=38.7, WBC=7.79k-check cultures-pending, viral swab(-) - 12/25 Tmax=39.2, hemodynamically stable, per ID monitor and hold on empiric IV abx, monitor-BCx's (+) for ruddy albicans-start micafungin - 12/26 ECHO with no vegetations - 12/27 (-) exam per ophtha for ocular fungemia-will ask for peripheral IV-BCx x 1 sent - 12/28 PICC line pulled, repeat BCx sent, 12/27 BC with staph epi-likely contaminant 12/29 - growing staph epidermidis -> likely contaminant 12/30 - Repeat blood cultures sent on 12/30 NGTD - 01/03- picc line placed for home Na thisulphate at discharge - but decrease dose to 12.5 gm 3X/week - patient to receive 2 weeks of iv micafungin from when the cultures became neg ie (Last growth of ruddy noted on cx from 12/24 ) neg cx n 12/27 - EOT 01/09/25 at 1700 01/04- does not feel ready to be dicharged, wants to continue intensive PT. 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 12/04/2024 - replaced with 22Fr [address] mcclelland catheter; irrigation 30cc bid - 12/24 Tmax=38.7, WBC=7.79k-check cultures-pending, viral swab(-) - 12/25 Tmax=39.2, hemodynamically stable, per ID monitor and hold on empiric IV abx, monitor-BCx's (+) for ruddy albicans-start micafungin - 12/26 ECHO with no vegetations - 12/27 (-) exam per ophtha for ocular fungemia-will ask for peripheral IV-BCx x 1 sent - 12/28 PICC line pulled, repeat BCx sent, 12/27 BC with staph epi-likely contaminant 12/29 - growing staph epidermidis -> likely contaminant 12/30 - Repeat blood cultures sent on 12/30 NGTD Plan: - 01/03- picc line placed for home antibiotics - patient to receive 2 weeks of iv micafungin from when the cultures became neg ie (Last growth of ruddy noted on cx from 12/24 ) neg cx n 12/27 - EOT 01/09/2501/04- does not feel ready to be dicharged, wants to continue intensive PT. 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 12/04/2024 - replaced with 22Fr [address] mcclelland catheter; irrigation 30cc bid - 12/24 Tmax=38.7, WBC=7.79k-check cultures-pending, viral swab(-) - 12/25 Tmax=39.2, hemodynamically stable, per ID monitor and hold on empiric IV abx, monitor-BCx's (+) for ruddy albicans-start micafungin - 12/26 ECHO with no vegetations - 12/27 (-) exam per ophtha for ocular fungemia-will ask for peripheral IV-BCx x 1 sent - 12/28 PICC line pulled, repeat BCx sent, 12/27 BC with staph epi-likely contaminant 12/29 - growing staph epidermidis -> likely contaminant 12/30 - Repeat blood cultures sent on 12/30 NGTD Plan: - 01/04- picc line placed for home antibiotics - patient to receive 2 weeks of iv micafungin from when the cultures became neg ie (Last growth of ruddy noted on cx from 12/24 ) ~01/07 -medically ready for discharge - CM was working on setting up her home infusion, but patient says she doesn't feel ready to leave and still feels weak . Of note, patient has had >4 hospital admissions since May, and is at high risk of readmission, especially in her current debilitated state. will plan to finish antifungal course inpatient on 01/07 , remove PICC line and then d/c with home PT/OT. 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 12/04/2024 - replaced with 22Fr [address] way mcclelland catheter; irrigation 30cc bid - 12/24 Tmax=38.7, WBC=7.79k-check cultures-pending, viral swab(-) - 12/25 Tmax=39.2, hemodynamically stable, per ID monitor and hold on empiric IV abx, monitor-BCx's (+) for ruddy albicans-start micafungin - 12/26 ECHO with no vegetations - 12/27 (-) exam per ophtha for ocular fungemia-will ask for peripheral IV-BCx x 1 sent - 12/28 PICC line pulled, repeat BCx sent, 12/27 BC with staph epi-likely contaminant 12/29 - growing staph epidermidis -> likely contaminant 12/30 - Repeat blood cultures sent on 12/30 NGTD Plan: - - blood cultures from 12/30- have been negative till date. 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 12/04/2024 - replaced with 22Fr 3 way mcclelland catheter; irrigation 30cc bid - 12/24 Tmax=38.7, WBC=7.79k-check cultures-pending, viral swab(-) - 12/25 Tmax=39.2, hemodynamically stable, per ID monitor and hold on empiric IV abx, monitor-BCx's (+) for ruddy albicans-start micafungin - 12/26 ECHO with no vegetations - 12/27 (-) exam per ophtha for ocular fungemia-will ask for peripheral IV-BCx x 1 sent - 12/28 PICC line pulled, repeat BCx sent, 12/27 BC with staph epi-likely contaminant 12/29 - growing staph epidermidis , final report pending 12/30 - Repeat blood cultures sent on 12/30 NGTD, final report pending - f/u culture reports- patient to receive 2 weeks of iv micafungin from when the cultures became neg, will need PICC line for home iv abx therapy once cultures remain neg for 48 hours Assessment & Plan (01/01/2025 6:42 PM CDT): -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 12/04/2024 - replaced with 22Fr [address] way mcclelland catheter; irrigation 30cc bid - 12/24 Tmax=38.7, WBC=7.79k-check cultures-pending, viral swab(-) - 12/25 Tmax=39.2, hemodynamically stable, per ID monitor and hold on empiric IV abx, monitor-BCx's (+) for ruddy albicans-start micafungin - 12/26 ECHO with no vegetations - 12/27 (-) exam per ophtha for ocular fungemia-will ask for peripheral IV-BCx x 1 sent - 12/28 PICC line pulled, repeat BCx sent, 12/27 BC with staph epi-likely contaminant 12/29 - growing staph epidermidis , final report pending Repeat blood cultures sent on 12/30 NGTD - f/u culture reports- patient to receive 2 weeks of iv micafungin from when the cultures became neg, will need PICC line for home iv abx therapy once cultures remain neg for 48 hours Assessment & Plan (12/31/2024 7:53 PM CDT): -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 12/04/2024 - replaced with 22Fr [address] mcclelland catheter; irrigation 30cc bid - 12/24 Tmax=38.7, WBC=7.79k-check cultures-pending, viral swab(-) - 12/25 Tmax=39.2, hemodynamically stable, per ID monitor and hold on empiric IV abx, monitor-BCx's (+) for ruddy albicans-start micafungin - 12/26 ECHO with no vegetations - 12/27 (-) exam per ophtha for ocular fungemia-will ask for peripheral IV-BCx x 1 sent - 12/28 PICC line pulled, repeat BCx sent, 12/27 BC with staph epi-likely contaminant 12/29 - growing staph epidermidis , final report pending Repeat blood cultures sent on 12/30 NGTD - f/u culture reports- patient to receive 2 weeks of iv micafungin from when the cultures became neg, will need PICC line for home iv abx therapy once cultures remain neg for 48 hours Assessment & Plan (12/30/2024 4:26 PM CDT): -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 12/04/2024 - replaced with 22Fr [address] mccle[place]and catheter; irrigation 30cc bid - 12/24 Tmax=38.7, WBC=7.79k-check cultures-pending, viral swab(-) - 12/25 Tmax=39.2, hemodynamically stable, per ID monitor and hold on empiric IV abx, monitor-BCx's (+) for ruddy albicans-start micafungin - 12/26 ECHO with no vegetations - 12/27 (-) exam per ophtha for ocular fungemia-will ask for peripheral IV-BCx x 1 sent - 12/28 PICC line pulled, repeat BCx sent, 12/27 BC with staph epi-likely contaminant 12/28- NGTD (prelim) 12/29 - now with GPCs in clusters (pelim) - ID following, repeat blood cx 12/30 ordered - f/u culture reports- patient to receive 2 weeks of iv micafungin from when the cultures became neg, will need PICC line for home iv abx therapy once cultures remain neg for 48 hours Assessment & Plan (12/29/2024 10:35 AM CDT): -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 Antibiotics: Zosyn (11/05 - 11/18) Linezolid (10/31 - 11/18) Unasyn (11/01 - 11/05)Augmentin (10/30 - 10/31) Augmentin 875-125mg BID (11/18-) Tedizolid 200mg daily (11/18-) no end date or until surgery done - per CRS, no further plan for surgery this admission: plan to f/up in clinic - Contact precautions - 11/22, placed 16 Fr urinary catheter - should have been 22Fr - [facility] indication: 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) - 12/04/2024 - replaced with 22Fr [address] mcclelland catheter; irrigation 30cc bid - 12/13 Septic with fever 103F, tachycardic and hypotensive, suspect wound infection: Cefe , metronidazole extended duration (12/12-12/21), c/w Tedizolif (resume Augmentin 12/21) - pursue noncontrast (rising creatinine) CT chest/abd/pelvis ->severe hepatic steatosis - MRSE blood stream infection (Bc 12/13), likely contaminant, repeat blood cultures NGTD, low grade fever on 12/18: repeat Blood Cx NTD - appreciate ID recs Assessment & Plan (12/18/2024 3:25 PM CDT): -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, UA (10/30)- nitrite+, leuk esterase+, pyuria, bacteriuria+, Urine cx- contaminated- mixed krzysztof -CT A/P 10/30- no pyelonephritis, notable for acute on chronic diverticulitis, and 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 Antibiotics: Zosyn (11/05 - 11/18) Linezolid (10/31 - 11/18) Unasyn (11/01 - 11/05)Augmentin (10/30 - 10/31) Augmentin 875-125mg BID (11/18-) Tedizolid 200mg daily (11/18-) no end date or until surgery done - per CRS, no further plan for surgery this admission: plan to f/up in clinic - Contact precautions - 11/22, placed 16 Fr urinary catheter - should have been 22Fr - [facility] indication: 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 Antibiotics: Zosyn (11/05 - 11/18) Linezolid (10/31 - 11/18) Unasyn (11/01 - 11/05)Augmentin (10/30 - 10/31) Augmentin 875-125mg BID (11/18-) Tedizolid 200mg daily (11/18-) no end date or until surgery done - per CRS, no further plan for surgery this admission: plan to f/up in clinic - Contact precautions - 11/22, placed 16 Fr urinary catheter - should have been 22Fr - [facility] indication: 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) - 12/04/2024 - replaced with 22Fr [address] mccle[place]and catheter; irrigation 30cc bid - 12/13 Septic with fever 103F, tachycardic and hypotensive, suspect wound infection: Cefe , metronidazole(), c/w Tedizolif (resume Augmentin on 12/19) - pursue noncontrast (rising creatinine) CT chest/abd/pelvis ->severe hepatic steatosis - MRSE blood stream infection (Bc 12/13), likely contaminant, repeat blood cultures NGTD - appreciate ID recs Assessment & Plan (12/16/2024 2:46 PM CDT): -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, UA (10/30)- nitrite+, leuk esterase+, pyuria, bacteriuria+, Urine cx- contaminated- mixed krzysztof -CT A/P 10/30- no pyelonephritis, notable for acute on chronic diverticulitis, and 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 Antibiotics: Zosyn (11/05 - 11/18) Linezolid (10/31 - 11/18) Unasyn (11/01 - 11/05)Augmentin (10/30 - 10/31) Augmentin 875-125mg BID (11/18-) Tedizolid 200mg daily (11/18-) no end date or until surgery done - per CRS, no further plan for surgery this admission: plan to f/up in clinic - Contact precautions - 11/22, placed 16 Fr urinary catheter - should have been 22Fr - [facility] indication: 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) - 12/04/2024 - replaced with 22Fr [address] mccle[place] catheter; irrigation 30cc bid - 12/13 Septic with fever 103F, tachycardic and hypotensive, suspect wound infection: Cefe , metronidazole(), c/w Tedizolif (resume Augmentin on 12/19) - pursue noncontrast (rising creatinine) CT chest/abd/pelvis ->severe hepatic steatosis - MRSE blood stream infection (Bc 12/13), likely contaminant, repeat blood cultures NGTD - appreciate ID recs Assessment & Plan (12/15/2024 12:46 PM CDT): -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, UA (10/30)- nitrite+, leuk esterase+, pyuria, bacteriuria+, Urine cx- contaminated- mixed krzysztof -CT A/P 10/30- no pyelonephritis, notable for acute on chronic diverticulitis, and 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 Antibiotics: Zosyn (11/05 - 11/18) Linezolid (10/31 - 11/18) Unasyn (11/01 - 11/05)Augmentin (10/30 - 10/31) Augmentin 875-125mg BID (11/18-) Tedizolid 200mg daily (11/18-) no end date or until surgery done - per CRS, no further plan for surgery this admission: plan to f/up in clinic - Contact precautions - 11/22, placed 16 Fr urinary catheter - should have been 22Fr - [facility] indication: 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) - 12/04/2024 - replaced with 22Fr [address] mcclelland catheter; irrigation 30cc bid - 12/13 Septic with fever 103F, tachycardic and hypotensive, suspect wound infection, r/o worsening IA infection, has line in place r/o line infection, work-up sent, LR bolus x 2 liters, start Dapto and Cefe (hold Augmentin and Tedizolif) - Add Flagyl given LFT elevation concern for biliary infection, pursue noncontrast (rising creatinine) CT chest/abd/pelvis ->severe hepatic steatosis - MRSE blood stream infection (Bc 12/13), hopefully contaminant, repeat blood cultures NGTD - Anticipate ID for more recommendations Assessment & Plan (12/14/2024 10:58 AM CDT): -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, UA (10/30)- nitrite+, leuk esterase+, pyuria, bacteriuria+, Urine cx- contaminated- mixed krzyszotf -CT A/P 10/30- no pyelonephritis, notable for acute on chronic diverticulitis, and 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 Antibiotics: Zosyn (11/05 - 11/18) Linezolid (10/31 - 11/18) Unasyn (11/01 - 11/05)Augmentin (10/30 - 10/31) Augmentin 875-125mg BID (11/18-) Tedizolid 200mg daily (11/18-) no end date or until surgery done - per CRS, no further plan for surgery this admission: plan to f/up in clinic - Contact precautions - 11/22, placed 16 Fr urinary catheter - should have been 22Fr - [facility] indication: 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) - 12/04/2024 - replaced with 22Fr [address] mcclelland catheter; irrigation 30cc bid - 12/13 Septic with fever 103F, tachycardic and hypotensive, suspect wound infection, r/o worsening IA infection, has line in place r/o line infection, work-up sent, LR bolus x 2 liters, start Dapto and Cefe (hold Augmentin and Tedizolif) - Add Flagyl given LFT elevation concern for biliary infection, pursue noncontrast (rising creatinine) CT chest/abd/pelvis, consider RUQ ultrasound - MRSE blood stream infection (Bc 12/13), hopefully contaminant, repeat blood cultures Assessment & Plan (12/14/2024 10:59 AM CDT): -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, UA (10/30)- nitrite+, leuk esterase+, pyuria, bacteriuria+, Urine cx- contaminated- mixed krzysztof -CT A/P 10/30- no pyelonephritis, notable for acute on chronic diverticulitis, and 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 Antibiotics: Zosyn (11/05 - 11/18) Linezolid (10/31 - 11/18) Unasyn (11/01 - 11/05)Augmentin (10/30 - 10/31) Augmentin 875-125mg BID (11/18-) Tedizolid 200mg daily (11/18-) no end date or until surgery done - per CRS, no further plan for surgery this admission: plan to f/up in clinic - Contact precautions - 11/22, placed 16 Fr urinary catheter - should have been 22Fr - [facility] indication: 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) - 12/04/2024 - replaced with 22Fr [address] mcclelland catheter; irrigation 30cc bid - 12/13 Septic with fever 103F, tachycardic and hypotensive, suspect wound infection, r/o worsening IA infection, has line in place r/o line infection, work-up sent, LR bolus x 2 liters, start Dapto and Cefe (hold Augmentin and Tedizolif) Assessment & Plan (12/12/2024 2:48 PM CDT): -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, UA (10/30)- nitrite+, leuk esterase+, pyuria, bacteriuria+, Urine cx- contaminated- mixed krzysztof -CT A/P 10/30- no pyelonephritis, notable for acute on chronic diverticulitis, and 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 Antibiotics: Zosyn (11/05 - 11/18) Linezolid (10/31 - 11/18) Unasyn (11/01 - 11/05)Augmentin (10/30 - 10/31) Augmentin 875-125mg BID (11/18-) Tedizolid 200mg daily (11/18-) no end date or until surgery done - per CRS, no further plan for surgery this admission: plan to f/up in clinic - Contact precautions - 11/22, placed 16 Fr urinary catheter - should have been 22Fr - Mcclelland indication: 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) - 12/04/2024 - replaced with 22Fr 3 way mcclelland catheter; irrigation 30cc bid Assessment & Plan (12/11/2024 8:52 PM CDT): -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, UA (10/30)- nitrite+, leuk esterase+, pyuria, bacteriuria+, Urine cx- contaminated- mixed krzysztof -CT A/P 10/30- no pyelonephritis, notable for acute on chronic diverticulitis, and 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 Antibiotics: Zosyn (11/05 - 11/18) Linezolid (10/31 - 11/18) Unasyn (11/01 - 11/05)Augmentin (10/30 - 10/31) Augmentin 875-125mg BID (11/18-) Tedizolid 200mg daily (11/18-) no end date or until surgery done - per CRS, no further plan for surgery this admission: plan to f/up in clinic - Contact precautions - 11/22, placed 16 Fr urinary catheter - should have been 22Fr - Mcclelland indication: 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) - 12/04/2024 - replaced with 22Fr 3 way mcclelland catheter; irrigation 30cc bid Assessment & Plan (12/10/2024 8:41 AM CDT): -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, UA (10/30)- nitrite+, leuk esterase+, pyuria, bacteriuria+, Urine cx- contaminated- mixed krzysztof -CT A/P 10/30- no pyelonephritis, notable for acute on chronic diverticulitis, and 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 Antibiotics: Zosyn (11/05 - 11/18) Linezolid (10/31 - 11/18) Unasyn (11/01 - 11/05)Augmentin (10/30 - 10/31) Augmentin 875-125mg BID (11/18-) Tedizolid 200mg daily (11/18-) - per CRS, no further plan for surgery this admission: plan to f/up in clinic - Contact precautions - 11/22, placed 16 Fr urinary catheter - should have been 22Fr - Mcclelland indication: 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) - 12/04/2024 - replaced with 22Fr 3 way mcclelland catheter; irrigation 30cc bid Assessment & Plan (12/09/2024 8:35 AM CDT): -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, UA (10/30)- nitrite+, leuk esterase+, pyuria, bacteriuria+, Urine cx- contaminated- mixed krzysztof -CT A/P 10/30- no pyelonephritis, notable for acute on chronic diverticulitis, and 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 Antibiotics: Zosyn (11/05 - 11/18) Linezolid (10/31 - 11/18) Unasyn (11/01 - 11/05)Augmentin (10/30 - 10/31) Augmentin 875-125mg BID (11/18-) Tedizolid 200mg daily (11/18-) - per CRS, no further plan for surgery this admission: plan to f/up in clinic - Contact precautions - 11/22, placed 16 Fr urinary catheter - should have been 22Fr - Mcclelland indication: 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) - 12/04/2024 - replaced with 22Fr 3 way mcclelland catheter; irrigation 30cc bid Assessment & Plan (12/08/2024 2:09 PM CDT): -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, UA (10/30)- nitrite+, leuk esterase+, pyuria, bacteriuria+, Urine cx- contaminated- mixed krzysztof -CT A/P 10/30- no pyelonephritis, notable for acute on chronic diverticulitis, and 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 Antibiotics: Zosyn (11/05 - 11/18) Linezolid (10/31 - 11/18) Unasyn (11/01 - 11/05)Augmentin (10/30 - 10/31) Augmentin 875-125mg BID (11/18-) Tedizolid 200mg daily (11/18-) - per CRS, no further plan for surgery this admission: plan to f/up in clinic - Contact precautions - 11/22, placed 16 Fr urinary catheter - should have been 22Fr - Mcclelland indication: 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) - 12/04/2024 - replaced with 22Fr 3 way mcclelland catheter; irrigation 30cc bid Assessment & Plan (12/07/2024 1:18 PM CDT): -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, UA (10/30)- nitrite+, leuk esterase+, pyuria, bacteriuria+, Urine cx- contaminated- mixed krzysztof -CT A/P 10/30- no pyelonephritis, notable for acute on chronic diverticulitis, and 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 Antibiotics: Zosyn (11/05 - 11/18) Linezolid (10/31 - 11/18) Unasyn (11/01 - 11/05)Augmentin (10/30 - 10/31) Augmentin 875-125mg BID (11/18-) Tedizolid 200mg daily (11/18-) - per CRS, no further plan for surgery this admission: plan to f/up in clinic - Contact precautions - 11/22, placed 16 Fr urinary catheter - should have been 22Fr - Mcclelland indication: 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) - 12/04/2024 - replaced with 22Fr 3 way mcclelland catheter; irrigation 30cc bid Assessment & Plan (12/06/2024 2:19 PM CDT): -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, UA (10/30)- nitrite+, leuk esterase+, pyuria, bacteriuria+, Urine cx- contaminated- mixed krzysztof -CT A/P 10/30- no pyelonephritis, notable for acute on chronic diverticulitis, and 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 Antibiotics: Zosyn (11/05 - 11/18) Linezolid (10/31 - 11/18) Unasyn (11/01 - 11/05)Augmentin (10/30 - 10/31) Augmentin 875-125mg BID (11/18-) Tedizolid 200mg daily (11/18-) - per CRS, no further plan for surgery this admission: plan to f/up in clinic - Contact precautions - 11/22, placed 16 Fr urinary catheter - should have been 22Fr - Mcclelland indication: 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) - 12/04/2024 - replaced with 22Fr 3 way mcclelland catheter; irrigation 30cc bid Assessment & Plan (12/05/2024 4:47 PM CDT): -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, UA (10/30)- nitrite+, leuk esterase+, pyuria, bacteriuria+, Urine cx- contaminated- mixed krzysztof -CT A/P 10/30- no pyelonephritis, notable for acute on chronic diverticulitis, and 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 Antibiotics: Zosyn (11/05 - 11/18) Linezolid (10/31 - 11/18) Unasyn (11/01 - 11/05)Augmentin (10/30 - 10/31) Augmentin 875-125mg BID (11/18-) Tedizolid 200mg daily (11/18-) - per CRS, no further plan for surgery this admission: plan to f/up in clinic - Contact precautions - 11/22, placed 16 Fr urinary catheter - should have been 22Fr - Mcclelland indication: 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) - 12/04/2024 - replaced with 22Fr 3 way mcclelland catheter; irrigation 30cc bid Assessment & Plan (12/04/2024 2:08 PM CDT): -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, UA (10/30)- nitrite+, leuk esterase+, pyuria, bacteriuria+, Urine cx- contaminated- mixed krzysztof -CT A/P 10/30- no pyelonephritis, notable for acute on chronic diverticulitis, and 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 Antibiotics: Zosyn (11/05 - 11/18) Linezolid (10/31 - 11/18) Unasyn (11/01 - 11/05)Augmentin (10/30 - 10/31) Augmentin 875-125mg BID (11/18-) Tedizolid 200mg daily (11/18-) - per CRS, no further plan for surgery this admission: plan to f/up in clinic - Contact precautions - 11/22, placed 16 Fr urinary catheter - should have been 22Fr - Mcclelland indication: 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) - 12/04/2024 - replaced with 22Fr [address] way mcclelland catheter; irrigation 30cc bid Assessment & Plan (12/03/2024 6:06 PM CDT): -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, UA (10/30)- nitrite+, leuk esterase+, pyuria, bacteriuria+, Urine cx- contaminated- mixed krzysztof -CT A/P 10/30- no pyelonephritis, notable for acute on chronic diverticulitis, and 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 Antibiotics: Zosyn (11/05 - 11/18) Linezolid (10/31 - 11/18) Unasyn (11/01 - 11/05)Augmentin (10/30 - 10/31) Augmentin 875-125mg BID (11/18-) Tedizolid 200mg daily (11/18-) - per CRS, no further plan for surgery this admission: plan to f/up in clinic - Contact precautions - 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 -replaced on 11/22 05/25 to crack Assessment & Plan (12/02/2024 2:26 PM CDT): -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, UA (10/30)- nitrite+, leuk esterase+, pyuria, bacteriuria+, Urine cx- contaminated- mixed krzysztof -CT A/P 10/30- no pyelonephritis, notable for acute on chronic diverticulitis, and 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 Antibiotics: Zosyn (11/05 - 11/18) Linezolid (10/31 - 11/18) Unasyn (11/01 - 11/05)Augmentin (10/30 - 10/31) Augmentin 875-125mg BID (11/18-) Tedizolid 200mg daily (11/18-) - per CRS, no further plan for surgery this admission: plan to f/up in clinic - Contact precautions - 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 -replaced on 11/22 05/25 to crack Assessment & Plan (12/01/2024 9:54 AM CDT): -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, UA (10/30)- nitrite+, leuk esterase+, pyuria, bacteriuria+, Urine cx- contaminated- mixed krzysztof -CT A/P 10/30- no pyelonephritis, notable for acute on chronic diverticulitis, and 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 Antibiotics: Zosyn (11/05 - 11/18) Linezolid (10/31 - 11/18) Unasyn (11/01 - 11/05)Augmentin (10/30 - 10/31) Augmentin 875-125mg BID (11/18-) Tedizolid 200mg daily (11/18-) - per CRS, no further plan for surgery this admission: plan to f/up in clinic - Contact precautions - 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 -replaced on 11/22 05/25 to crack Assessment & Plan (11/30/2024 1:01 PM CDT): -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, UA (10/30)- nitrite+, leuk esterase+, pyuria, bacteriuria+, Urine cx- contaminated- mixed krzysztof -CT A/P 10/30- no pyelonephritis, notable for acute on chronic diverticulitis, and 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 Antibiotics: Zosyn (11/05 - 11/18) Linezolid (10/31 - 11/18) Unasyn (11/01 - 11/05)Augmentin (10/30 - 10/31) Augmentin 875-125mg BID (11/18-) Tedizolid 200mg daily (11/18-) - per CRS, no further plan for surgery this admission: plan to f/up in clinic - Contact precautions - 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 -replaced on 11/22 05/25 to crack Assessment & Plan (11/29/2024 11:20 AM CDT): -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, UA (10/30)- nitrite+, leuk esterase+, pyuria, bacteriuria+, Urine cx- contaminated- mixed krzysztof -CT A/P 10/30- no pyelonephritis, notable for acute on chronic diverticulitis, and 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 Antibiotics: Zosyn (11/05 - 11/18) Linezolid (10/31 - 11/18) Unasyn (11/01 - 11/05)Augmentin (10/30 - 10/31) Augmentin 875-125mg BID (11/18-) Tedizolid 200mg daily (11/18-) - per CRS, no further plan for surgery this admission: plan to f/up in clinic - Contact precautions - 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 -replaced on 11/22 05/25 to crack Assessment & Plan (11/28/2024 1:42 PM CDT): -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, UA (10/30)- nitrite+, leuk esterase+, pyuria, bacteriuria+, Urine cx- contaminated- mixed krzysztof -CT A/P 10/30- no pyelonephritis, notable for acute on chronic diverticulitis, and 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 Antibiotics: Zosyn (11/05 - 11/18) Linezolid (10/31 - 11/18) Unasyn (11/01 - 11/05)Augmentin (10/30 - 10/31) Augmentin 875-125mg BID (11/18-) Tedizolid 200mg daily (11/18-) - per CRS, no further plan for surgery this admission: plan to f/up in clinic - Contact precautions - 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 -replaced on 11/22 05/25 to crack Assessment & Plan (11/27/2024 10:16 AM CDT): -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, UA (10/30)- nitrite+, leuk esterase+, pyuria, bacteriuria+, Urine cx- contaminated- mixed krzysztof -CT A/P 10/30- no pyelonephritis, notable for acute on chronic diverticulitis, and 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 Antibiotics: Zosyn (11/05 - 11/18) Linezolid (10/31 - 11/18) Unasyn (11/01 - 11/05)Augmentin (10/30 - 10/31) Augmentin 875-125mg BID (11/18-) Tedizolid 200mg daily (11/18-) - per CRS, no further plan for surgery this admission: plan to f/up in clinic - Contact precautions - 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 -replaced on 11/22 05/25 to crack Assessment & Plan (11/26/2024 12:13 PM CDT): -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, UA (10/30)- nitrite+, leuk esterase+, pyuria, bacteriuria+, Urine cx- contaminated- mixed krzysztof -CT A/P 10/30- no pyelonephritis, notable for acute on chronic diverticulitis, and 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 Antibiotics: Zosyn (11/05 - 11/18) Linezolid (10/31 - 11/18) Unasyn (11/01 - 11/05)Augmentin (10/30 - 10/31) Augmentin 875-125mg BID (11/18-) Tedizolid 200mg daily (11/18-) - per CRS, no further plan for surgery this admission: plan to f/up in clinic - Contact precautions - 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 -replaced on 11/22 05/25 to crack Assessment & Plan (11/25/2024 3:35 PM CDT): -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, UA (10/30)- nitrite+, leuk esterase+, pyuria, bacteriuria+, Urine cx- contaminated- mixed krzysztof -CT A/P 10/30- no pyelonephritis, notable for acute on chronic diverticulitis, and 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 Antibiotics: Zosyn (11/05 - 11/18) Linezolid (10/31 - 11/18) Unasyn (11/01 - 11/05)Augmentin (10/30 - 10/31) Augmentin 875-125mg BID (11/18-) Tedizolid 200mg daily (11/18-) - per CRS, no further plan for surgery this admission: plan to f/up in clinic - Contact precautions - 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 -replaced on 11/22 05/25 to crack Assessment & Plan (11/24/2024 11:40 PM CDT): 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 UA (10/30)- nitrite+, leuk esterase+, pyuria, bacteriuria+ Urine cx- contaminated- mixed krzysztof CT A/P 10/30- no pyelonephritis , notable for acute on chronic diverticulitis, and 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 Antibiotics: Zosyn (11/05 - 11/18) Linezolid (10/31 - 11/18) Unasyn (11/01 - 11/05) Augmentin (10/30 - 10/31) Augmentin 875-125mg BID (11/18-) Tedizolid 200mg daily (11/18-) f/u ID recs for antibiotic duration- switched back to PO abx - per CRS, no further plan for surgery this admission: plan to f/up in clinic - Contact precautions - 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 -replaced on 11/22 05/25 to crack Assessment & Plan (11/23/2024 8:59 PM CDT): 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 UA (10/30)- nitrite+, leuk esterase+, pyuria, bacteriuria+ Urine cx- contaminated- mixed krzysztof CT A/P 10/30- no pyelonephritis , notable for acute on chronic diverticulitis, and 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 Antibiotics: Zosyn (11/05 - 11/18) Linezolid (10/31 - 11/18) Unasyn (11/01 - 11/05) Augmentin (10/30 - 10/31) Augmentin 875-125mg BID (11/18-) Tedizolid 200mg daily (11/18-) - f/u ID recs for antibiotic duration- switched back to PO abx - per CRS, no further plan for surgery this admission: plan to f/up in clinic - Contact precautions - 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 -replaced on 11/22 05/25 to crack Assessment & Plan (11/22/2024 7:23 PM CDT): 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 UA (10/30)- nitrite+, leuk esterase+, pyuria, bacteriuria+ Urine cx- contaminated- mixed krzysztof CT A/P 10/30- no pyelonephritis , notable for acute on chronic diverticulitis, and 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 Antibiotics: Zosyn (11/05 - 11/18) Linezolid (10/31 - 11/18) Unasyn (11/01 - 11/05) Augmentin (10/30 - 10/31) Augmentin 875-125mg BID (11/18-) Tedizolid 200mg daily (11/18-) - f/u ID recs for antibiotic duration- switched back to PO abx - per CRS, no further plan for sx this admission - Contact precautions - 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 -replaced on 11/22 05/25 to crack Assessment & Plan (11/21/2024 3:52 PM CDT): 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 UA (10/30)- nitrite+, leuk esterase+, pyuria, bacteriuria+ Urine cx- contaminated- mixed krzysztof CT A/P 10/30- no pyelonephritis , notable for acute on chronic diverticulitis, and 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 Antibiotics: Zosyn (11/05 - 11/18) Linezolid (10/31 - 11/18) Unasyn (11/01 - 11/05) Augmentin (10/30 - 10/31) Augmentin 875-125mg BID (11/18-) Tedizolid 200mg daily (11/18-) - f/u ID recs for antibiotic duration- switched back to PO abx - per CRS, no further plan for sx this admission - Contact precautions - 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 Assessment & Plan (11/20/2024 3:42 PM CDT): 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 UA (10/30)- nitrite+, leuk esterase+, pyuria, bacteriuria+ Urine cx- contaminated- mixed krzysztof CT A/P 10/30- no pyelonephritis , notable for acute on chronic diverticulitis, and 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 Antibiotics: Zosyn (11/05 - 11/18) Linezolid (10/31 - 11/18) Unasyn (11/01 - 11/05) Augmentin (10/30 - 10/31) Augmentin 875-125mg BID (11/18-) Tedizolid 200mg daily (11/18-) - f/u ID recs for antibiotic duration- switched back to PO medications today - per CRS, no further plan for sx this admission - Contact precautions - Will try void trial when ready Assessment & Plan (11/18/2024 6:00 PM CDT): 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 UA (10/30)- nitrite+, leuk esterase+, pyuria, bacteriuria+ Urine cx- contaminated- mixed krzysztof CT A/P 07/10- no pyelonephritis , notable for acute on chronic diverticulitis, and 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 - Per derm curbside, hold sodium thiosulfate during acute illness. Will hold and restart when outpatient per derm - Cont pentoxifylline ER 400 mg every day - Outpatient derm follow up, missed 03/02 appointment while inpatient. Requested rescheduled appointment with Dr. Mary. - Ensure patient has wound care education/supplies at discharge Assessment & Plan (03/02/2025 6:13 PM CHEF): Pt on sodium thiosulfate and pentoxifylline ER at home. - Per derm curbside, hold sodium thiosulfate during acute illness. Will hold and restart when outpatient per derm - Cont pentoxifylline ER 400 mg every day - Outpatient derm follow up, missed 03/02 appointment while inpatient. Requested rescheduled appointment with Dr. Mary. - Ensure patient has wound care education/supplies at discharge Assessment & Plan (03/01/2025 6:18 AM CHEF): Pt on sodium thiosulfate and pentoxifylline ER at home. - Per derm curbside, hold sodium thiosulfate during acute illness. Will hold and restart when outpatient per derm - Cont pentoxifylline ER 400 mg every day Assessment & Plan (02/28/2025 5:56 AM CHEF): Pt on sodium thiosulfate and pentoxifylline ER at home. - Per derm curbside, hold sodium thiosulfate during acute illness. Will hold and restart when outpatient per derm - Cont pentoxifylline ER 400 mg every day Assessment & Plan (02/27/2025 10:08 AM CHEF): Pt on sodium thiosulfate and pentoxifylline ER at home. - Per derm curbside, hold sodium thiosulfate during acute illness. Will hold and restart when outpatient per derm - Cont pentoxifylline ER 400 mg every day Assessment & Plan (02/26/2025 7:14 AM CHEF): Pt on sodium thiosulfate and pentoxifylline ER at home. - Per derm curbside, hold sodium thiosulfate during acute illness. Will hold and restart when outpatient per derm - cont pentoxifylline ER 400 mg every day Assessment & Plan (02/25/2025 6:23 AM CHEF): Pt on sodium thiosulfate and pentoxifylline ER at home. - Per derm curbside, hold sodium thiosulfate during acute illness. Will hold and restart when outpatient per derm - cont pentoxifylline ER 400 mg every day Assessment & Plan (02/24/2025 1:45 PM CHEF): Pt on sodium thiosulfate and pentoxifylline ER at home. - Per derm curbside, hold sodium thiosulfate during acute illness. 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 Patient and I discussed what outpatient strategies were available for her pain control and to address her calcium, which are likely insufficient for her needs. 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 Patient should return to care once discharged -- I will order a pain management referral urgently to expedite her connection to care. Assessment & Plan (01/20/2025 1:08 PM CDT): Painful rash to bilateral thighs - seen by dermatology - 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 - 11/08 IV sodium thiosulfate stopped due to c/f acidosis-resumed 12/03; 11/09 pentoxifylline started, bicarb added - Wound care: betadine to bilateral thigh ulcerations and cover with polymem daily; pretreat with Dilaudid - 12/13 Wound look worse and foul-smelling with adherent yellowish and necrotic slough, start vashe soaked wet to dry dressing - wound following, improving - 12/31 - held Na thiosulphate iso acidosis - 01/05- plan to continue Na thisulphate 12.5 gm 3X/week until derm o/p follow up-per CM, will be discharged with PICC line- Have found infusion center that can take patient MWF --> infusion therapy orders placed - decreased pentoxyfilline 400 mg to once daily per derm recs Assessment & Plan (01/19/2025 8:40 PM CDT): Painful rash to bilateral thighs - seen by dermatology - 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 - 11/08 IV sodium thiosulfate stopped due to c/f acidosis-resumed 12/03; 11/09 pentoxifylline started, bicarb added - Wound care: betadine to bilateral thigh ulcerations and cover with polymem daily; pretreat with Dilaudid - 12/13 Wound look worse and foul-smelling with adherent yellowish and necrotic slough, start vashe soaked wet to dry dressing - wound following, improving - 12/31 - held Na thiosulphate iso acidosis - 01/05- plan to continue Na thisulphate 12.5 gm 3X/week until derm o/p follow up-per CM, will be discharged with PICC line- Have found infusion center that can take patient MWF --> infusion therapy orders placed - decreased pentoxyfilline 400 mg to once daily per derm recs Assessment & Plan (01/18/2025 3:27 PM CDT): Painful rash to bilateral thighs - seen by dermatology - 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 - 11/08 IV sodium thiosulfate stopped due to c/f acidosis-resumed 12/03; 11/09 pentoxifylline started, bicarb added - Wound care: betadine to bilateral thigh ulcerations and cover with polymem daily; pretreat with Dilaudid - 12/13 Wound look worse and foul-smelling with adherent yellowish and necrotic slough, start vashe soaked wet to dry dressing - wound following, improving - 12/31 - held Na thiosulphate iso acidosis - 01/05- plan to continue Na thisulphate 12.5 gm 3X/week until derm o/p follow up-per CM, will b discharged with PICC line- Have found infusion center that can take patient MWF --> infusion therapy orders placed - decreased pentoxyfilline 400 mg to once daily per derm recs Assessment & Plan (01/17/2025 2:32 PM CDT): Painful rash to bilateral thighs - seen by dermatology - 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 - 11/08 IV sodium thiosulfate stopped due to c/f acidosis-resumed 12/03; 11/09 pentoxifylline started, bicarb added - Wound care: betadine to bilateral thigh ulcerations and cover with polymem daily; pretreat with Dilaudid - 12/13 Wound look worse and foul-smelling with adherent yellowish and necrotic slough, start vashe soaked wet to dry dressing - wound following, improving - 12/31 - held Na thiosulphate iso acidosis - 01/05- plan to continue Na thisulphate 12.5 gm 3X/week until derm o/p follow up-per CM, will b discharged with PICC line- Have found infusion center that can take patient MWF --> infusion therapy orders placed - decreased pentoxyfilline 400 mg to once daily per derm recs Assessment & Plan (01/16/2025 9:26 PM CDT): Painful rash to bilateral thighs - seen by dermatology - 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 - 11/08 IV sodium thiosulfate stopped due to c/f acidosis-resumed 12/03; 11/09 pentoxifylline started, bicarb added - Wound care: betadine to bilateral thigh ulcerations and cover with polymem daily; pretreat with Dilaudid - 12/13 Wound look worse and foul-smelling with adherent yellowish and necrotic slough, start vashe soaked wet to dry dressing - wound following, improving - 12/31 - held Na thiosulphate iso acidosis - 01/05- plan to continue Na thisulphate 12.5 gm 3X/week until derm o/p follow up-per CM, will b discharged with PICC line- Have found infusion center that can take patient MWF --> infusion therapy orders placed - decreased pentoxyfilline 400 mg to once daily per derm recs Assessment & Plan (01/15/2025 9:08 PM CDT): Painful rash to bilateral thighs - seen by dermatology - 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 - 11/08 IV sodium thiosulfate stopped due to c/f acidosis-resumed 12/03; 11/09 pentoxifylline started, bicarb added - Wound care: betadine to bilateral thigh ulcerations and cover with polymem daily; pretreat with Dilaudid - 12/13 Wound look worse and foul-smelling with adherent yellowish and necrotic slough, start vashe soaked wet to dry dressing - wound following, improving - 12/31 - held Na thiosulphate iso acidosis - 01/05- plan to continue Na thisulphate 12.5 gm 3X/week until derm o/p follow up-per CM, will b discharged with PICC line- Have found infusion center that can take patient MWF --> infusion therapy orders placed - decreased pentoxyfilline 400 mg to once daily per derm recs Assessment & Plan (01/14/2025 11:06 PM CDT): Painful rash to bilateral thighs - seen by dermatology - 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 - 11/08 IV sodium thiosulfate stopped due to c/f acidosis-resumed 12/03; 11/09 pentoxifylline started, bicarb added - Wound care: betadine to bilateral thigh ulcerations and cover with polymem daily; pretreat with Dilaudid - 12/13 Wound look worse and foul-smelling with adherent yellowish and necrotic slough, start vashe soaked wet to dry dressing - wound following, improving - 12/31 - held Na thiosulphate iso acidosis - 01/05- plan to continue Na thisulphate 12.5 gm 3X/week until derm o/p follow up-per CM, will b discharged with PICC line- Have found infusion center that can take patient MWF --> infusion therapy orders placed - decreased pentoxyfilline 400 mg to once daily per derm recs Assessment & Plan (01/13/2025 8:04 PM CDT): Painful rash to bilateral thighs - seen by dermatology - 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 - 11/08 IV sodium thiosulfate stopped due to c/f acidosis-resumed 12/03; 11/09 pentoxifylline started, bicarb added - Wound care: betadine to bilateral thigh ulcerations and cover with polymem daily; pretreat with Dilaudid - 12/13 Wound look worse and foul-smelling with adherent yellowish and necrotic slough, start vashe soaked wet to dry dressing - wound following, improving - 12/31 - held Na thiosulphate iso acidosis - 01/05- plan to continue Na thisulphate 12.5 gm 3X/week until derm o/p follow up-per CM, will b discharged with PICC line- Have found infusion center that can take patient MWF --> infusion therapy orders placed - decrease pentoxyfilline 400 mg to once daily per derm recs Assessment & Plan (01/12/2025 1:20 PM CDT): Painful rash to bilateral thighs - seen by dermatology - 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 - 11/08 IV sodium thiosulfate stopped due to c/f acidosis-resumed 12/03; 11/09 pentoxifylline started, bicarb added - Wound care: betadine to bilateral thigh ulcerations and cover with polymem daily; pretreat with Dilaudid - 12/13 Wound look worse and foul-smelling with adherent yellowish and necrotic slough, start vashe soaked wet to dry dressing - wound following, improving - 12/31 - held Na thiosulphate iso acidosis - 01/05- Per derm, plan to continue Na thisulphate at discharge - but decrease dose to 12.5 gm 3X/week -Will now have to be discharged with PICC line and outpatient infusion appt's MWF Assessment & Plan (01/11/2025 12:18 PM CDT): Painful rash to bilateral thighs - seen by dermatology - 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 - 11/08 IV sodium thiosulfate stopped due to c/f acidosis-resumed 12/03; 11/09 pentoxifylline started, bicarb added - Wound care: betadine to bilateral thigh ulcerations and cover with polymem daily; pretreat with Dilaudid - 12/13 Wound look worse and foul-smelling with adherent yellowish and necrotic slough, start vashe soaked wet to dry dressing - wound following, improving - 12/31 - held Na thiosulphate iso acidosis - 01/05- Per derm, plan to continue Na thisulphate at discharge - but decrease dose to 12.5 gm 3X/week -Will now have to be discharged with PICC line and outpatient infusion appt's MWF Assessment & Plan (01/10/2025 11:26 AM CDT): Painful rash to bilateral thighs - seen by dermatology - 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 - 11/08 IV sodium thiosulfate stopped due to c/f acidosis-resumed 12/03; 11/09 pentoxifylline started, bicarb added - Wound care: betadine to bilateral thigh ulcerations and cover with polymem daily; pretreat with Dilaudid - 12/13 Wound look worse and foul-smelling with adherent yellowish and necrotic slough, start vashe soaked wet to dry dressing - wound following, improving - 12/31 - held Na thiosulphate iso acidosis - 01/05- Per derm, plan to continue Na thisulphate at discharge - but decrease dose to 12.5 gm 3X/week -Will now have to be discharged with PICC line and outpatient infusion appt's MWF Assessment & Plan (01/09/2025 11:58 AM CDT): Painful rash to bilateral thighs - seen by dermatology - 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 - 11/08 IV sodium thiosulfate stopped due to c/f acidosis-resumed 12/03; 11/09 pentoxifylline started, bicarb added - Wound care: betadine to bilateral thigh ulcerations and cover with polymem daily; pretreat with Dilaudid - 12/13 Wound look worse and foul-smelling with adherent yellowish and necrotic slough, start vashe soaked wet to dry dressing - wound following, improving - 12/31 - held Na thiosulphate iso acidosis - 01/05- Per derm, plan to continue Na thisulphate at discharge - but decrease dose to 12.5 gm 3X/week -Will now have to be discharged with PICC line and with home infusion Assessment & Plan (01/08/2025 10:29 AM CDT): Painful rash to bilateral thighs - seen by dermatology - 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 - 11/08 IV sodium thiosulfate stopped due to c/f acidosis-resumed 12/03; 11/09 pentoxifylline started, bicarb added - Wound care: betadine to bilateral thigh ulcerations and cover with polymem daily; pretreat with Dilaudid - 12/13 Wound look worse and foul-smelling with adherent yellowish and necrotic slough, start vashe soaked wet to dry dressing - wound following, improving - 12/31 - held Na thiosulphate iso acidosis - 01/05- Per derm, plan to continue Na thisulphate at discharge - but decrease dose to 12.5 gm 3X/week -Will now have to be discharged with PICC line and with home infusion Assessment & Plan (01/07/2025 2:11 PM CDT): Painful rash to bilateral thighs - seen by dermatology - 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 - 11/08 IV sodium thiosulfate stopped due to c/f acidosis-resumed 12/03; 11/09 pentoxifylline started, bicarb added - Wound care: betadine to bilateral thigh ulcerations and cover with polymem daily; pretreat with Dilaudid - 12/13 Wound look worse and foul-smelling with adherent yellowish and necrotic slough, start vashe soaked wet to dry dressing - wound following, improving - 12/31 - held Na thiosulphate iso acidosis - 01/05- Per derm, plan to continue Na thisulphate at discharge - but decrease dose to 12.5 gm 3X/week -Will now have to be discharged with PICC line and with home infusion Assessment & Plan (01/06/2025 1:47 PM CDT): Painful rash to bilateral thighs - seen by dermatology - 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 - 11/08 IV sodium thiosulfate stopped due to c/f acidosis-resumed 12/03; 11/09 pentoxifylline started , bicarb added - Wound care: betadine to bilateral thigh ulcerations and cover with polymem daily; pretreat with Dilaudid - 12/13 Wound look worse and foul-smelling with adherent yellowish and necrotic slough, start vashe soaked wet to dry dressing - wound following, improving - 12/31 - held Na thiosulphate iso acidosis - 01/05- Per derm, plan to continue Na thisulphate at discharge - but decrease dose to 12.5 gm 3X/week -Will now have to be discharged with PICC line and with home infusion Assessment & Plan (01/05/2025 8:19 PM CDT): Painful rash to bilateral thighs - seen by dermatology - 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 - 11/08 IV sodium thiosulfate stopped due to c/f acidosis-resumed 12/03; 11/09 pentoxifylline started , bicarb added - Wound care: betadine to bilateral thigh ulcerations and cover with polymem daily; pretreat with Dilaudid - 12/13 Wound look worse and foul-smelling with adherent yellowish and necrotic slough, start vashe soaked wet to dry dressing - wound following, improving - 12/31 - held Na thiosulphate iso acidosis - 01/05- Per derm, plan to continue Na thisulphate at discharge - but decrease dose to 12.5 gm 3X/week -Will now have to be discharged with PICC line and with home infusion- d/w CM tomorrow Assessment & Plan (01/04/2025 2:44 PM CDT): Painful rash to bilateral thighs - seen by dermatology - 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 - 11/08 IV sodium thiosulfate stopped due to c/f acidosis-resumed 12/03; 11/09 pentoxifylline started , bicarb added - Wound care: betadine to bilateral thigh ulcerations and cover with polymem daily; pretreat with Dilaudid - 12/13 Wound look worse and foul-smelling with adherent yellowish and necrotic slough, start vashe soaked wet to dry dressing - wound following, improving - 12/31 - held Na thiosulphate iso acidosis - derm recs before discharge Assessment & Plan (01/03/2025 6:12 PM CDT): Painful rash to bilateral thighs - seen by dermatology - 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 - 11/08 IV sodium thiosulfate stopped due to c/f acidosis-resumed 12/03; 11/09 pentoxifylline started , bicarb added - Wound care: betadine to bilateral thigh ulcerations and cover with polymem daily; pretreat with Dilaudid - 12/13 Wound look worse and foul-smelling with adherent yellowish and necrotic slough, start vashe soaked wet to dry dressing - wound following, improving - 12/31 - held Na thiosulphate iso acidosis - derm recs before discharge Assessment & Plan (01/02/2025 7:31 PM CDT): Painful rash to bilateral thighs - seen by dermatology - 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 - 11/08 IV sodium thiosulfate stopped due to c/f acidosis-resumed 12/03; 11/09 pentoxifylline started , bicarb added - Wound care: betadine to bilateral thigh ulcerations and cover with polymem daily; pretreat with Dilaudid - 12/13 Wound look worse and foul-smelling with adherent yellowish and necrotic slough, start vashe soaked wet to dry dressing - wound following, improving - 12/31 - held Na thiosulphate iso acidosis - derm recs before discharge Assessment & Plan (01/01/2025 6:42 PM CDT): Painful rash to bilateral thighs - seen by dermatology - 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 - 11/08 IV sodium thiosulfate stopped due to c/f acidosis-resumed 12/03; 11/09 pentoxifylline started , bicarb added - Wound care: betadine to bilateral thigh ulcerations and cover with polymem daily; pretreat with Dilaudid - 12/13 Wound look worse and foul-smelling with adherent yellowish and necrotic slough, start vashe soaked wet to dry dressing - wound following, improving - 12/31 - held Na thiosulphate iso acidosis - derm recs before discharge Assessment & Plan (12/31/2024 7:53 PM CDT): Painful rash to bilateral thighs - seen by dermatology - 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 - 11/08 IV sodium thiosulfate stopped due to c/f acidosis-resumed 12/03; 11/09 pentoxifylline started , bicarb added - Wound care: betadine to bilateral thigh ulcerations and cover with polymem daily; pretreat with Dilaudid - 12/13 Wound look worse and foul-smelling with adherent yellowish and necrotic slough, start vashe soaked wet to dry dressing - wound following, improving - if acidosis worsens iso renal failure, will hold Na thiosulphate, CO2 20 , CTM - derm recs before discharge Assessment & Plan (12/30/2024 4:26 PM CDT): Painful rash to bilateral thighs - seen by dermatology - 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 - 11/08 IV sodium thiosulfate stopped due to c/f acidosis-resumed 12/03; 11/09 pentoxifylline started , bicarb added - Wound care: betadine to bilateral thigh ulcerations and cover with polymem daily; pretreat with Dilaudid - 12/13 Wound look worse and foul-smelling with adherent yellowish and necrotic slough, start vashe soaked wet to dry dressing - wound following, improving - derm recs before discharge Assessment & Plan (12/29/2024 10:35 AM CDT): Painful rash to bilateral thighs - seen by dermatology - 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 - 11/08 IV sodium thiosulfate stopped due to c/f acidosis-resumed 12/03; 11/09 pentoxifylline started , bicarb added - Wound care: betadine to bilateral thigh ulcerations and cover with polymem daily; pretreat with Dilaudid - 12/13 Wound look worse and foul-smelling with adherent yellowish and necrotic slough, start vashe soaked wet to dry dressing - wound following, improving - derm eval before discharge Assessment & Plan (12/28/2024 11:23 AM CDT): Painful rash to bilateral thighs - seen by dermatology - 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 - 11/08 IV sodium thiosulfate stopped due to c/f acidosis-resumed 12/03; 11/09 pentoxifylline started , bicarb added - Wound care: betadine to bilateral thigh ulcerations and cover with polymem daily; pretreat with Dilaudid - 12/13 Wound look worse and foul-smelling with adherent yellowish and necrotic slough, start vashe soaked wet to dry dressing - wound following, improving - derm eval before discharge Assessment & Plan (12/27/2024 10:44 AM CDT): Painful rash to bilateral thighs - seen by dermatology - 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 - 11/08 IV sodium thiosulfate stopped due to c/f acidosis-resumed 12/03; 11/09 pentoxifylline started , bicarb added - Wound care: betadine to bilateral thigh ulcerations and cover with polymem daily; pretreat with Dilaudid - 12/13 Wound look worse and foul-smelling with adherent yellowish and necrotic slough, start vashe soaked wet to dry dressing - wound following, improving - derm eval before discharge Assessment & Plan (12/26/2024 1:28 PM CDT): Painful rash to bilateral thighs - seen by dermatology - 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 - 11/08 IV sodium thiosulfate stopped due to c/f acidosis-resumed 12/03; 11/09 pentoxifylline started , bicarb added - Wound care: betadine to bilateral thigh ulcerations and cover with polymem daily; pretreat with Dilaudid - 12/13 Wound look worse and foul-smelling with adherent yellowish and necrotic slough, start vashe soaked wet to dry dressing - wound following, improving - derm eval before discharge Assessment & Plan (12/25/2024 1:36 PM CDT): Painful rash to bilateral thighs - seen by dermatology - 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 - 11/08 IV sodium thiosulfate stopped due to c/f acidosis-resumed 12/03; 11/09 pentoxifylline started , bicarb added - Wound care: betadine to bilateral thigh ulcerations and cover with polymem daily; pretreat with Dilaudid - 12/13 Wound look worse and foul-smelling with adherent yellowish and necrotic slough, start vashe soaked wet to dry dressing - wound following, improving - derm eval before discharge Assessment & Plan (12/24/2024 12:30 PM CDT): Painful rash to bilateral thighs - seen by dermatology - 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 - 11/08 IV sodium thiosulfate stopped due to c/f acidosis-resumed 12/03; 11/09 pentoxifylline started , bicarb added - Wound care: betadine to bilateral thigh ulcerations and cover with polymem daily; pretreat with Dilaudid - 12/13 Wound look worse and foul-smelling with adherent yellowish and necrotic slough, start vashe soaked wet to dry dressing - wound following, improving - derm eval before discharge Assessment & Plan (12/23/2024 12:16 PM CDT): Painful rash to bilateral thighs - seen by dermatology - 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 - 11/08 IV sodium thiosulfate stopped due to c/f acidosis-resumed 12/03; 11/09 pentoxifylline started , bicarb added - Wound care: betadine to bilateral thigh ulcerations and cover with polymem daily; pretreat with Dilaudid - 12/13 Wound look worse and foul-smelling with adherent yellowish and necrotic slough, start vashe soaked wet to dry dressing - wound following, improving - derm eval before discharge Assessment & Plan (12/22/2024 11:42 AM CDT): Painful rash to bilateral thighs - seen by dermatology - 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 - 11/08 IV sodium thiosulfate stopped due to c/f acidosis-resumed 12/03; 11/09 pentoxifylline started , bicarb added - Wound care: betadine to bilateral thigh ulcerations and cover with polymem daily; pretreat with Dilaudid - 12/13 Wound look worse and foul-smelling with adherent yellowish and necrotic slough, start vashe soaked wet to dry dressing - wound following, improving - derm eval before discharge Assessment & Plan (12/21/2024 8:31 AM CDT): Painful rash to bilateral thighs - seen by dermatology - 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 - 11/08 IV sodium thiosulfate stopped due to c/f acidosis-resumed 12/03; 11/09 pentoxifylline started , bicarb added - Wound care: betadine to bilateral thigh ulcerations and cover with polymem daily; pretreat with Dilaudid - 12/13 Wound look worse and foul-smelling with adherent yellowish and necrotic slough, start vashe soaked wet to dry dressing - wound following, slowly improving - derm eval before discharge Assessment & Plan (12/20/2024 9:08 AM CDT): Painful rash to bilateral thighs - seen by dermatology - 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 - 11/08 IV sodium thiosulfate stopped due to c/f acidosis-resumed 12/03; 11/09 pentoxifylline started , bicarb added - Wound care: betadine to bilateral thigh ulcerations and cover with polymem daily; pretreat with Dilaudid - 12/13 Wound look worse and foul-smelling with adherent yellowish and necrotic slough, start vashe soaked wet to dry dressing - wound following, slowly improving - derm eval before discharge Assessment & Plan (12/19/2024 7:54 AM CDT): Painful rash to bilateral thighs - seen by dermatology - 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 - 11/08 IV sodium thiosulfate stopped due to c/f acidosis-resumed 12/03; 11/09 pentoxifylline started , bicarb added - Wound care: betadine to bilateral thigh ulcerations and cover with polymem daily; pretreat with Dilaudid - 12/13 Wound look worse and foul-smelling with adherent yellowish and necrotic slough, start vashe soaked wet to dry dressing - wound following, slowly improving - derm eval before discharge Assessment & Plan (12/18/2024 8:14 AM CDT): Painful rash to bilateral thighs - seen by dermatology - 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 - 11/08 IV sodium thiosulfate stopped due to c/f acidosis-resumed 12/03; 11/09 pentoxifylline started , bicarb added - Wound care: betadine to bilateral thigh ulcerations and cover with polymem daily; pretreat with Dilaudid - 12/13 Wound look worse and foul-smelling with adherent yellowish and necrotic slough, start vashe soaked wet to dry dressing - wound following, slowly improving - derm eval before discharge Assessment & Plan (12/17/2024 1:15 PM CDT): Painful rash to bilateral thighs - seen by dermatology - 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 - 11/08 IV sodium thiosulfate stopped due to c/f acidosis-resumed 12/03; 11/09 pentoxifylline started , bicarb added - Wound care: betadine to bilateral thigh ulcerations and cover with polymem daily; pretreat with Dilaudid - 12/13 Wound look worse and foul-smelling with adherent yellowish and necrotic slough, start vashe soaked wet to dry dressing - wound following, slowly improving - derm eval before discharge Assessment & Plan (12/16/2024 2:46 PM CDT): Painful rash to bilateral thighs - seen by dermatology - 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 - 11/08 IV sodium thiosulfate stopped due to c/f acidosis-resumed 12/03; 11/09 pentoxifylline started - Wound care: betadine to bilateral thigh ulcerations and cover with polymem daily; pretreat with Dilaudid - 12/13 Wound look worse and foul-smelling with adherent yellowish and necrotic slough, start vashe soaked wet to dry dressing - Requested wound to re-evaluate Assessment & Plan (12/15/2024 12:46 PM CDT): Painful rash to bilateral thighs - seen by dermatology - 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 - 11/08 IV sodium thiosulfate stopped due to c/f acidosis-resumed 12/03; 11/09 pentoxifylline started - Wound care: betadine to bilateral thigh ulcerations and cover with polymem daily; pretreat with Dilaudid - 12/13 Wound look worse and foul-smelling with adherent yellowish and necrotic slough, start vashe soaked wet to dry dressing - Requested wound to re-evaluate Assessment & Plan (12/14/2024 10:58 AM CDT): Painful rash to bilateral thighs - seen by dermatology - 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 - 11/08 IV sodium thiosulfate stopped due to c/f acidosis-resumed 12/03; 11/09 pentoxifylline started - Wound care: betadine to bilateral thigh ulcerations and cover with polymem daily; pretreat with Dilaudid - 12/13 Wound look worse and foul-smelling with adherent yellowish and necrotic slough, start vashe soaked wet to dry dressing Assessment & Plan (12/13/2024 1:19 PM CDT): Painful rash to bilateral thighs - seen by dermatology - 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 - 11/08 IV sodium thiosulfate stopped due to c/f acidosis-resumed 12/03; 11/09 pentoxifylline started - Wound care: betadine to bilateral thigh ulcerations and cover with polymem daily; pretreat with Dilaudid - 12/13 Wound look worse and foul-smelling with adherent yellowish and necrotic slough, start vashe soaked wet to dry dressing Assessment & Plan (12/12/2024 2:48 PM CDT): Painful rash to bilateral thighs - seen by dermatology - 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 - 11/08 IV sodium thiosulfate stopped due to c/f acidosis-resumed 12/03; 11/09 pentoxifylline started - Wound care: betadine to bilateral thigh ulcerations and cover with polymem daily; pretreat with Dilaudid Assessment & Plan (12/11/2024 8:52 PM CDT): Painful rash to bilateral thighs - seen by dermatology - 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 - 11/08 IV sodium thiosulfate stopped due to c/f acidosis-resumed 12/03; 11/09 pentoxifylline started - Wound care: betadine to bilateral thigh ulcerations and cover with polymem daily; pretreat with Dilaudid Assessment & Plan (12/10/2024 8:41 AM CDT): Painful rash to bilateral thighs - seen by dermatology - 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 - 11/08 IV sodium thiosulfate stopped due to c/f acidosis - 11/09 pentoxifylline started - per dermatology apply betadine to bilateral thigh ulcerations and cover with polymem daily. - Dressing changes causing anxiety for patient, PRN IV Dilaudid ordered for premedication - c/w pentoxifylline 400 mg TID - 12/03/2024 - restarted iv sodium thiosulfate at 12.5mg, tolerated well; will increase to 25mg three times weekly - 12/04 - remove sutures Assessment & Plan (12/09/2024 8:35 AM CDT): Painful rash to bilateral thighs - seen by dermatology - 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 - 11/08 IV sodium thiosulfate stopped due to c/f acidosis - 11/09 pentoxifylline started - per dermatology apply betadine to bilateral thigh ulcerations and cover with polymem daily. - Dressing changes causing anxiety for patient, PRN IV Dilaudid ordered for premedication - c/w pentoxifylline 400 mg TID - 12/03/2024 - restarted iv sodium thiosulfate at 12.5mg, tolerated well; will increase to 25mg three times weekly - 12/04 - remove sutures Assessment & Plan (12/08/2024 2:09 PM CDT): Painful rash to bilateral thighs - seen by dermatology - 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 - 11/08 IV sodium thiosulfate stopped due to c/f acidosis - 11/09 pentoxifylline started - per dermatology apply betadine to bilateral thigh ulcerations and cover with polymem daily. - Dressing changes causing anxiety for patient, PRN IV Dilaudid ordered for premedication - c/w pentoxifylline 400 mg TID - 12/03/2024 - restarted iv sodium thiosulfate at 12.5mg, tolerated well; will increase to 25mg three times weekly - 12/04 - remove sutures Assessment & Plan (12/07/2024 1:18 PM CDT): Painful rash to bilateral thighs - seen by dermatology - 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 - 11/08 IV sodium thiosulfate stopped due to c/f acidosis - 11/09 pentoxifylline started - per dermatology apply betadine to bilateral thigh ulcerations and cover with polymem daily. - Dressing changes causing anxiety for patient, PRN IV Dilaudid ordered for premedication - c/w pentoxifylline 400 mg TID - 12/03/2024 - restarted iv sodium thiosulfate at 12.5mg, tolerated well; will increase to 25mg three times weekly - 12/04 - remove sutures Assessment & Plan (12/06/2024 2:19 PM CDT): Painful rash to bilateral thighs - seen by dermatology - 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 - 11/08 IV sodium thiosulfate stopped due to c/f acidosis - 11/09 pentoxifylline started - per dermatology apply betadine to bilateral thigh ulcerations and cover with polymem daily. - Dressing changes causing anxiety for patient, PRN IV Dilaudid ordered for premedication - c/w pentoxifylline 400 mg TID - 12/03/2024 - restarted iv sodium thiosulfate at 12.5mg, tolerated well; will increase to 25mg three times weekly - 12/04 - remove sutures Assessment & Plan (12/05/2024 4:47 PM CDT): Painful rash to bilateral thighs - seen by dermatology - 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 - 11/08 IV sodium thiosulfate stopped due to c/f acidosis - 11/09 pentoxifylline started - per dermatology apply betadine to bilateral thigh ulcerations and cover with polymem daily. - Dressing changes causing anxiety for patient, PRN IV Dilaudid ordered for premedication - c/w pentoxifylline 400 mg TID - 12/03/2024 - restarted iv sodium thiosulfate at 12.5mg, tolerated well; will increase to 25mg three times weekly - 12/04 - remove sutures Assessment & Plan (12/04/2024 2:08 PM CDT): Painful rash to bilateral thighs - seen by dermatology - 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 - 11/08 IV sodium thiosulfate stopped due to c/f acidosis - 11/09 pentoxifylline started - per dermatology apply betadine to bilateral thigh ulcerations and cover with polymem daily. - Dressing changes causing anxiety for patient, PRN IV Dilaudid ordered for premedication - c/w pentoxifylline 400 mg TID - 12/03/2024 - restarted iv sodium thiosulfate at 12.5mg, tolerated well; will increase to 25mg three times weekly - 12/04 - remove sutures Assessment & Plan (12/03/2024 6:06 PM CDT): - painful rash to bilateral thighs - seen by dermatology - 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 - 11/08 IV sodium thiosulfate stopped due to c/f acidosis - 11/09 pentoxifylline started - per dermatology apply betadine to bilateral thigh ulcerations and cover with polymem daily. - Dressing changes causing anxiety for patient, PRN IV Dilaudid ordered for premedication - c/w pentoxifylline 400 mg TID - 12/03/2024 - restarted iv sodium thiosulfate at 12.5mg three times weekly Assessment & Plan (12/02/2024 2:26 PM CDT): - painful rash to bilateral thighs - seen by dermatology - 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 - 11/08 IV sodium thiosulfate stopped due to c/f acidosis - 11/09 pentoxifylline started - per dermatology apply betadine to bilateral thigh ulcerations and cover with polymem daily. - Dressing changes causing anxiety for patient, PRN IV Dilaudid ordered for premedication - c/w pentoxifylline 400 mg TID Assessment & Plan (12/01/2024 9:54 AM CDT): - painful rash to bilateral thighs - seen by dermatology - 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 - 11/08 IV sodium thiosulfate stopped due to c/f acidosis - 11/09 pentoxifylline started - per dermatology apply betadine to bilateral thigh ulcerations and cover with polymem daily. - Dressing changes causing anxiety for patient, PRN IV Dilaudid ordered for premedication - c/w pentoxifylline 400 mg TID Assessment & Plan (11/30/2024 1:01 PM CDT): - painful rash to bilateral thighs - seen by dermatology - 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 - 11/08 IV sodium thiosulfate stopped due to c/f acidosis - 11/09 pentoxifylline started - per dermatology apply betadine to bilateral thigh ulcerations and cover with polymem daily. - Dressing changes causing anxiety for patient, PRN IV Dilaudid ordered for premedication - c/w pentoxifylline 400 mg TID Assessment & Plan (11/29/2024 11:20 AM CDT): - painful rash to bilateral thighs - seen by dermatology - 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 - 11/08 IV sodium thiosulfate stopped due to c/f acidosis - 11/09 pentoxifylline started - per dermatology apply betadine to bilateral thigh ulcerations and cover with polymem daily. - Dressing changes causing anxiety for patient, PRN IV Dilaudid ordered for premedication - c/w pentoxifylline 400 mg TID Assessment & Plan (11/28/2024 1:42 PM CDT): - painful rash to bilateral thighs - seen by dermatology - 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 - 11/08 IV sodium thiosulfate stopped due to c/f acidosis - 11/09 pentoxifylline started - per dermatology apply betadine to bilateral thigh ulcerations and cover with polymem daily. - Dressing changes causing anxiety for patient, PRN IV Dilaudid ordered for premedication - c/w pentoxifylline 400 mg TID Assessment & Plan (11/27/2024 10:16 AM CDT): - painful rash to bilateral thighs - seen by dermatology - 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 - 11/08 IV sodium thiosulfate stopped due to c/f acidosis - 11/09 pentoxifylline started - per dermatology apply betadine to bilateral thigh ulcerations and cover with polymem daily. - Dressing changes causing anxiety for patient, PRN IV Dilaudid ordered for premedication - c/w pentoxifylline 400 mg TID Assessment & Plan (11/26/2024 12:13 PM CDT): - painful rash to bilateral thighs - seen by dermatology - 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 - 11/08 IV sodium thiosulfate stopped due to c/f acidosis - 11/09 pentoxifylline started - per dermatology apply betadine to bilateral thigh ulcerations and cover with polymem daily. - Dressing changes causing anxiety for patient, PRN IV Dilaudid ordered for premedication - c/w pentoxifylline 400 mg TID Assessment & Plan (11/25/2024 3:35 PM CDT): - painful rash to bilateral thighs - seen by dermatology - 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 - 11/08 IV sodium thiosulfate stopped due to c/f acidosis - 11/09 pentoxifylline started - per dermatology apply betadine to bilateral thigh ulcerations and cover with polymem daily. - Dressing changes causing anxiety for patient, PRN IV Dilaudid ordered for premedication - c/w pentoxifylline 400 mg TID Assessment & Plan (11/24/2024 8:49 AM CDT): - painful rash to bilateral thighs -- seen by dermatology - 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 - 11/08 IV sodium thiosulfate stopped due to c/f acidosis - 11/09 pentoxifylline started - per dermatology apply betadine to bilateral thigh ulcerations and cover with polymem daily. - Dressing changes causing anxiety for patient, PRN IV Dilaudid ordered for premedication - c/w pentoxifylline 400 mg TID Assessment & Plan (11/23/2024 8:59 PM CDT): - painful rash to bilateral thighs -- seen by dermatology - 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 - 11/08 IV sodium thiosulfate stopped due to c/f acidosis - 11/09 pentoxifylline started - per dermatology apply betadine to bilateral thigh ulcerations and cover with polymem daily. - Dressing changes causing anxiety for patient, PRN IV Dilaudid ordered for premedication - c/w pentoxifylline 400 mg TID Assessment & Plan (11/22/2024 12:21 PM CDT): - painful rash to bilateral thighs - 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 - 11/08 IV sodium thiosulfate stopped due to c/f acidosis - 11/09 pentoxifylline started Plan: - f/u dermatology recs - per dermatology apply betadine to bilateral thigh ulcerations and cover with polymem daily. - Dressing changes causing anxiety for patient, PRN IV Dilaudid ordered for premedication - c/w pentoxifylline 400 mg TID Assessment & Plan (11/21/2024 3:38 PM CDT): - painful rash to bilateral thighs - 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 - 11/08 IV sodium thiosulfate stopped due to c/f acidosis - 11/09 pentoxifylline started Plan: - f/u dermatology recs - per dermatology apply betadine to bilateral thigh ulcerations and cover with polymem daily. - Dressing changes causing anxiety for patient, PRN IV Dilaudid ordered for premedication - c/w pentoxifylline 400 mg TID Assessment & Plan (11/20/2024 3:42 PM CDT): - painful rash to bilateral thighs - 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 - 11/08 IV sodium thiosulfate stopped due to c/f acidosis - 11/09 pentoxifylline started Plan: - f/u dermatology recs - per dermatology apply betadine to bilateral thigh ulcerations and cover with polymem daily. - c/w pentoxifylline 400 mg TID Assessment & Plan (11/19/2024 12:57 PM CDT): - painful rash to bilateral thighs - 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 - 11/08 IV sodium thiosulfate stopped due to c/f acidosis - 11/09 pentoxifylline started Plan: - f/u dermatology recs - per dermatology apply betadine to bilateral thigh ulcerations and cover with polymem daily. - c/w pentoxifylline 400 mg TID Assessment & Plan (11/18/2024 6:00 PM CDT): - painful rash to bilateral thighs - 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 - 11/08 IV sodium thiosulfate stopped due to c/f acidosis - 11/09 pentoxifylline started Plan: - f/u dermatology recs - per dermatology apply betadine to bilateral thigh ulcerations and cover with polymem daily. - c/w pentoxifylline 400 mg TID Assessment & Plan (11/11/2024 3:08 PM CDT): Painful rash over bilateral thigh. 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 Started rx w sodium thiosulfate but held on 11/06 iso bicarb drop. Will CTM. Plan - Continue betadine daily per surgery recs - Had ordered sodium thiosulfate 25g IV 3 times per week held iso bicarb drop noted on 11/06. 2nd lower dose given on 11/07 then discontinued iso acidosis as above. Will resume postOP. - Discussed starting pentoxifylline w CRS, they are okay with initiating the medication, started on 11/09. Assessment & Plan (11/10/2024 7:55 AM CDT): Painful rash over bilateral thigh. 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 Started rx w sodium thiosulfate but held on 11/06 iso bicarb drop. Will CTM. Plan - Continue betadine daily per surgery recs - Had ordered sodium thiosulfate 25g IV 3 times per week held iso bicarb drop noted on 11/06. 2nd lower dose given on 11/07 then discontinued iso acidosis as above. Will resume postOP. - Discussed starting pentoxifylline w CRS, they are okay with initiating the medication, started on 11/09. Assessment & Plan (11/09/2024 3:12 PM CDT): Painful rash over bilateral thigh. 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 Started rx w sodium thiosulfate but held on 11/06 iso bicarb drop. Will CTM. Plan - Continue betadine daily per surgery recs - Had ordered sodium thiosulfate 25g IV 3 times per week held iso bicarb drop noted on 11/06. 2nd lower dose given on 11/07 then discontinued iso acidosis as above. Will resume postOP. - Discussed starting pentoxifylline w CRS, they are okay with initiating the medication, started on 11/09. 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 She was re-admitted 10/31 with recurrent fever, nausea, and vomiting with LLQ abdominal pain. CT imaging continued to demonstrate acute on chronic sequela of diverticulitis similar to prior exams. She was continued on amoxicillin-clavulanate and tedizolid was switched to linezolid (10/30-). She was scheduled to undergo exploratory laparotomy, takedown of colovesical fistula, sigmoidectomy, and possible colostomy and preoperative stent placement but the procedure was aborted due to cardiac arrest during induction during which difficult airway ended up requiring emergency cric. She then underwent trach which has since been decannulated but amidst her long PCU stay, decision made to defer surgery w/ CRS during present hospitalization. CRS re-evaluated and took her to the OR 01/20 for sigmoid resection for takedown of colovesicular fistula, omentum tacked to pelvis to cover fistula to bladder with CRS Recommendations: - Continue amoxicillin-clavulanate 875-125 mg q12 hours and tedizolid 200 mg qday for 72rs from surgery and then stop - No ID follow up needed Assessment & Plan (01/06/2025 5:36 PM CDT): - continue amoxicillin-clavulanate 875-125 mg q12 hours and tedizolid 200 mg qday. No surgery planned at this time per CRS. - Will plan to follow up in ~2 weeks with ID after discharge - Appreciate CRS input to surgery timing Assessment & Plan (12/31/2024 2:02 PM CDT): - continue amoxicillin-clavulanate 875-125 mg q12 hours and tedizolid 200 mg qday. No surgery planned at this time per CRS. Assessment & Plan (12/26/2024 4:08 PM CDT): - continue amoxicillin-clavulanate 875-125 mg q.12 hours and tedizolid 200 mg q.day Assessment & Plan (12/19/2024 4:57 PM CDT): Nina Macias is a 44 y.o. 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 She was re-admitted 10/31 with recurrent fever, nausea, and vomiting with LLQ abdominal pain. CT imaging continued to demonstrate acute on chronic sequela of diverticulitis similar to prior exams. She was continued on amoxicillin-clavulanate and tedizolid was switched to linezolid (10/30-). She was scheduled to undergo exploratory laparotomy, takedown of colovesical fistula, sigmoidectomy, and possible colostomy and preoperative stent placement but the procedure was aborted due to cardiac arrest during induction during which difficult airway ended up requiring emergency cric. She then underwent trach which has since been decannulated but amidst her long PCU stay, decision made to defer surgery w/ CRS during present hospitalization. CT abdomen noncontrast 12/14: Redemonstrated sequela of prior sigmoid diverticulitis with colovesicular fistula. Slightly increased fat stranding and wall thickening of the sigmoid colon likely represents a superimposed acute component. Per primary team note 12/15, still no acute surgical intervention at this time. 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 Bcx collected 12/13 w/ S epidermidis, likely contaminant as repeat bcx NG, final w/ other likely explanations for her fevers. Recommendations: - Has completed 7 days of cefepime for SSTI, can transition back to liquid augmentin - Continue tedizolid - Continue other management of calciphylaxis eg STS +/- derm re-engagement - Discuss with [facility] Surgery if they could see her and set expectations for upcoming surgery Assessment & Plan (12/15/2024 1:02 PM CDT): Nina Macias is a 44 y.o. 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 She was re-admitted 10/31 with recurrent fever, nausea, and vomiting with LLQ abdominal pain. CT imaging continued to demonstrate acute on chronic sequela of diverticulitis similar to prior exams. She was continued on amoxicillin-clavulanate and tedizolid was switched to linezolid (10/30-). She was scheduled to undergo exploratory laparotomy, takedown of colovesical fistula, sigmoidectomy, and possible colostomy and preoperative stent placement but the procedure was aborted due to cardiac arrest during induction during which difficult airway ended up requiring emergency cric. She then underwent trach which has since been decannulated but amidst her long PCU stay, decision made to defer surgery w/ CRS during present hospitalization. CT abdomen noncontrast 12/14: Redemonstrated sequela of prior sigmoid diverticulitis with colovesicular fistula. Slightly increased fat stranding and wall thickening of the sigmoid colon likely represents a superimposed acute component. Per primary team note 12/15, still no acute surgical intervention at this time. 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 Bcx collected 12/13 w/ S epidermidis, likely contaminant w/ other likely explanations for her fevers. Recommendations: - Continue cefepime with duration targeted toward SSTI, after which would transition back to augmentin - Can switch daptomycin back to tedizolid - Continue flagyl - Continue other management of calciphylaxis eg STS +/- derm re-engagement Assessment & Plan (11/05/2024 12:36 PM CDT): She has bilateral, dark appearing thigh lesions that are extremely painful. The lesions resemble bruising in coloration, but there has been no significant trauma to this area, and the pain is out of proportion to the apparent injury. The cause of these lesions is unclear, but could they resemble necrosis but she does not have evidence for NSTI on CT imaging, could also consider caliphylaxis lesions (some risk factors include obesity, female gender, hypercalcemia, renal disease). Evaluated by Dermatology 11/03. Suspected calciphylaxis or other panniculitis/fat necrosis/vasculopathy. Skin biopsy 11/04 awaiting results. They started empiric therapy with IV sodium thiosulfate 25 g 3 times weekly. Assessment & Plan (11/03/2024 12:53 PM CDT): She has bilateral, dark appearing thigh lesions that are extremely painful. The lesions resemble bruising in coloration, but there has been no significant trauma to this area, and the pain is out of proportion to the apparent injury. The cause of these lesions is unclear, but could they resemble necrosis but she does not have evidence for NSTI on CT imaging, could also consider caliphylaxis lesions (some risk factors include obesity, female gender, hypercalcemia, renal disease). Would consider consult to Dermatology for evaluation and biopsy. Assessment & Plan (11/02/2024 4:17 PM CDT): She has bilateral, dark appearing thigh lesions that are extremely painful. The lesions resemble bruising in coloration, but there has been no significant trauma to this area, and the pain is out of proportion to the apparent injury. The cause of these lesions is unclear, but could they resemble necrosis but she does not have evidence for NSTI on CT imaging, could also consider caliphylaxis lesions (some risk factors include obesity, female gender, hypercalcemia, renal disease). Would consider consult to Dermatology for evaluation and biopsy. Assessment & Plan (11/01/2024 5:21 PM CDT): She has bilateral, dark appearing thigh lesions that are extremely painful. The lesions resemble bruising in coloration, but there has been no significant trauma to this area, and the pain is out of proportion to the apparent injury. The cause of these lesions is unclear, but could they resemble necrosis but she does not have evidence for NSTI on CT imaging, could also consider caliphylaxis lesions (some risk factors include obesity, female gender, hypercalcemia, renal disease). Would consider consult to Dermatology for evaluation and biopsy. Tenderness of chest wall 11/01/2024 Assessment & Plan (03/03/2025 12:36 PM CHEF): Pt endorses SOB, chest pain/tightness w L shoulder pain. On exam, pain seems to be more MSK in origin, though CTAP was concerning for PE findings. CTPE showed acute pulm embolism within R main pulm artery and extending into the R upper, middle and lower lobar and segmental pulm arteries. No evidence of R heart strain. - differentials for AHRF could include ADOLFO vs obesity hypoventilation syndrome as well - S-PESI score of >1, PERT team activated. PERT team determined low-intermediate risk. - TTE 02/25/25 without RHS. - Upper and lower venous duplex without DVT Plan: - Eliquis:10mg BID x7 days (02/27-03/05) and then 5mg BID for 6 months - Titrate O2 sat >92% - Walking o2 completed 03/03 - 2L at rest and exertion as of 03/02. Patient has O2 tanks at home already. - Lidocaine patch for MSK pain of shoulder and chest wall Assessment & Plan (03/02/2025 6:13 PM CHEF): Pt endorses SOB, chest pain/tightness w L shoulder pain. On exam, pain seems to be more MSK in origin, though CTAP was concerning for PE findings. CTPE showed acute pulm embolism within R main pulm artery and extending into the R upper, middle and lower lobar and segmental pulm arteries. No evidence of R heart strain. - differentials for AHRF could include ADOLFO vs obesity hypoventilation syndrome as well - S-PESI score of >1, PERT team activated. PERT team determined low-intermediate risk. - TTE 02/25/25 without RHS. - Upper and lower venous duplex without DVT Plan: - Eliquis:10mg BID x7 days (02/27-03/05) and then 5mg BID for 6 months - Titrate O2 sat >92% - Walking o2 completed today - 2L at rest and exertion as of 03/02. Patient has O2 tanks at home already. - Lidocaine patch for MSK pain of shoulder and chest wall Assessment & Plan (03/01/2025 6:18 AM CHEF): Pt endorses SOB, chest pain/tightness w L shoulder pain. On exam, pain seems to be more MSK in origin, though CTAP was concerning for PE findings. CTPE showed acute pulm embolism within R main pulm artery and extending into the R upper, middle and lower lobar and segmental pulm arteries. No evidence of R heart strain. - differentials for AHRF could include ADOLFO vs obesity hypoventilation syndrome as well - S-PESI score of >1, PERT team activated. PERT team determined low-intermediate risk. - TTE 02/25/25 without RHS. - Upper and lower venous duplex without DVT Plan: - Eliquis:10mg BID x7 days (02/27-03/05) and then 5mg BID for 6 months - Titrate O2 sat >92% - Walking o2 prior to d/c - Lidocaine patch for MSK pain of shoulder and chest wall Assessment & Plan (02/28/2025 10:54 AM CHEF): Pt endorses SOB, chest pain/tightness w L shoulder pain. On exam, pain seems to be more MSK in origin, though CTAP was concerning for PE findings. CTPE showed acute pulm embolism within R main pulm artery and extending into the R upper, middle and lower lobar and segmental pulm arteries. No evidence of R heart strain. - differentials for AHRF could include ADOLFO vs obesity hypoventilation syndrome as well - S-PESI score of >1, PERT team activated. PERT team determined low-intermediate risk. - TTE 02/25/25 without RHS. - Upper and lower venous duplex without DVT Plan: - Eliquis:10mg BID x7 days (02/27-03/05) and then 5mg BID for 6 months - Titrate O2 sat >92% - Walking o2 prior to d/c - Lidocaine patch for MSK pain of shoulder and chest wall Assessment & Plan (02/27/2025 10:08 AM CHEF): Pt endorses SOB, chest pain/tightness w L shoulder pain. On exam, pain seems to be more MSK in origin, though CTAP was concerning for PE findings. CTPE showed acute pulm embolism within R main pulm artery and extending into the R upper, middle and lower lobar and segmental pulm arteries. No evidence of R heart strain. - differentials for AHRF could include ADOLFO vs obesity hypoventilation syndrome as well - S-PESI score of >1, PERT team activated. PERT team determined low-intermediate risk. - TTE 02/25/25 without RHS. - Upper and lower venous duplex without DVT Plan: - Start Eliquis load today: 10mg BID x7 days (02/27-03/05) and then 5mg BID for 6 months - Titrate O2 sat >92% - Walking o2 prior to d/c - Lidocaine patch for MSK pain of shoulder and chest wall Assessment & Plan (02/26/2025 1:05 PM CHEF): Pt endorses SOB, chest pain/tightness w L shoulder pain. On exam, pain seems to be more MSK in origin, though CTAP was concerning for PE findings. CTPE showed acute pulm embolism within R main pulm artery and extending into the R upper, middle and lower lobar and segmental pulm arteries. No evidence of R heart strain. - differentials for AHRF could include ADOLFO vs obesity hypoventilation syndrome as well - S-PESI score of >1, PERT team activated. PLAN: - PERT team deemed pt not at high risk and currently no need for thrombectomy - follow up upper and lower extremity duplex US - therapeutic lovenox daily -- plan to switch to DOAC soon - titrate O2 sat >92% - walking o2 prior to d/c - lidocaine patch for MSK pain of shoulder and chest wall Assessment & Plan (02/25/2025 12:52 PM CHEF): Pt endorses SOB, chest pain/tightness w L shoulder pain. On exam, pain seems to be more MSK in origin, though CTAP was concerning for PE findings. CTPE showed acute pulm embolism within R main pulm artery and extending into the R upper, middle and lower lobar and segmental pulm arteries. No evidence of R heart strain. - differentials for AHRF could include ADOLFO vs obesity hypoventilation syndrome as well - S-PESI score of >1, PERT team activated. PLAN: - PERT team deemed pt not at high risk and currently no need for thrombectomy - therapeutic lovenox daily -- plan to switch to DOAC soon - titrate O2 sat >92% - lidocaine patch for MSK pain of shoulder and chest wall Assessment & Plan (02/24/2025 1:45 PM CHEF): Pt endorses SOB, chest pain/tightness w L shoulder pain. On exam, pain seems to be more MSK in origin, though CTAP was concerning for PE findings. CTPE showed acute pulm embolism within R main pulm artery and extending into the R upper, middle and lower lobar and segmental pulm arteries. No evidence of R heart strain. - differentials for AHRF could include ADOLFO vs obesity hypoventilation syndrome as well - S-PESI score of >1, PERT team activated. PLAN: - PERT team deemed pt not at high risk and currently no need for thrombectomy - therapeutic lovenox daily - titrate O2 sat >92% - lidocaine patch for MSK pain of shoulder and chest wall Assessment & Plan (11/05/2024 12:36 PM CDT): She reported some L chest wall tenderness on admission with some overlying skin erythema and possible vesicles. Could be concerned for developing Zoster lesions. Would carefully monitor. Could consider sending swab of lesions if they further evolve. Assessment & Plan (11/03/2024 12:53 PM CDT): She reported some L chest wall tenderness on admission with some overlying skin erythema and possible vesicles. Could be concerned for developing Zoster lesions. Would carefully monitor. Could consider sending swab of lesions if they further evolve. Assessment & Plan (11/02/2024 4:17 PM CDT): She reported some L chest wall tenderness on admission with some overlying skin erythema and possible vesicles. Could be concerned for developing Zoster lesions. Would carefully monitor. Could consider sending swab of lesions if they further evolve. Assessment & Plan (11/01/2024 5:21 PM CDT): She reported some L chest wall tenderness on admission with some overlying skin erythema and possible vesicles. Could be concerned for developing Zoster lesions. Would carefully monitor. Could consider sending swab of lesions if they further evolve. 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 She was re-admitted 10/31 with recurrent fever, nausea, and vomiting with LLQ abdominal pain. CT imaging continued to demonstrate acute on chronic sequela of diverticulitis similar to prior exams. She was continued on amoxicillin-clavulanate and tedizolid was switched to linezolid (10/30-). She was scheduled to undergo exploratory laparotomy, takedown of colovesical fistula, sigmoidectomy, and possible colostomy and preoperative stent placement but the procedure was aborted due to cardiac arrest during induction during which difficult airway ended up requiring emergency cric. She then underwent trach which has since been decannulated but amidst her long PCU stay, decision made to defer surgery w/ CRS during present hospitalization. 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 12/04/2024 - replaced with 22Fr 3 way mcclelland catheter; irrigation 30cc bid - 12/24 Tmax=38.7, WBC=7.79k-check cultures-pending, viral swab(-) - 12/25 Tmax=39.2, hemodynamically stable, per ID monitor and hold on empiric IV abx, monitor-BCx's (+) for ruddy albicans-start micafungin - 12/26 ECHO with no vegetations - 12/27 (-) exam per ophtha for ocular fungemia-will ask for peripheral IV-BCx x 1 sent - 12/28 PICC line pulled, repeat BCx sent, 12/27 BC with staph epi-likely contaminant 12/29 - growing staph epidermidis -> likely contaminant 12/30 - Repeat blood cultures sent on 12/30 NGTD - 01/03- picc line placed for home Na thisulphate at discharge - 01/09/2025- completed 2 weeks of iv micafungin from neg cx 12/27 Assessment & Plan (01/17/2025 2:32 PM CDT): -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, UA (10/30)- nitrite+, leuk esterase+, pyuria, bacteriuria+, Urine cx- contaminated- mixed krzysztof -CT A/P 10/30- no pyelonephritis, notable for acute on chronic diverticulitis, and 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 12/04/2024 - replaced with 22Fr [address] way mcclelland catheter; irrigation 30cc bid - 12/24 Tmax=38.7, WBC=7.79k-check cultures-pending, viral swab(-) - 12/25 Tmax=39.2, hemodynamically stable, per ID monitor and hold on empiric IV abx, monitor-BCx's (+) for ruddy albicans-start micafungin - 12/26 ECHO with no vegetations - 12/27 (-) exam per ophtha for ocular fungemia-will ask for peripheral IV-BCx x 1 sent - 12/28 PICC line pulled, repeat BCx sent, 12/27 BC with staph epi-likely contaminant 12/29 - growing staph epidermidis -> likely contaminant 12/30 - Repeat blood cultures sent on 12/30 NGTD - 01/03- picc line placed for home Na thisulphate at discharge - 01/09/2025- completed 2 weeks of iv micafungin from neg cx 12/27 Assessment & Plan (01/16/2025 9:26 PM CDT): -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, UA (10/30)- nitrite+, leuk esterase+, pyuria, bacteriuria+, Urine cx- contaminated- mixed krzysztof -CT A/P 10/30- no pyelonephritis, notable for acute on chronic diverticulitis, and 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 12/04/2024 - replaced with 22Fr [address] mcclelland catheter; irrigation 30cc bid - 12/24 Tmax=38.7, WBC=7.79k-check cultures-pending, viral swab(-) - 12/25 Tmax=39.2, hemodynamically stable, per ID monitor and hold on empiric IV abx, monitor-BCx's (+) for ruddy albicans-start micafungin - 12/26 ECHO with no vegetations - 12/27 (-) exam per ophtha for ocular fungemia-will ask for peripheral IV-BCx x 1 sent - 12/28 PICC line pulled, repeat BCx sent, 12/27 BC with staph epi-likely contaminant 12/29 - growing staph epidermidis -> likely contaminant 12/30 - Repeat blood cultures sent on 12/30 NGTD - 01/03- picc line placed for home Na thisulphate at discharge - 01/09/2025- completed 2 weeks of iv micafungin from neg cx 12/27 Assessment & Plan (01/15/2025 9:08 PM CDT): -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, UA (10/30)- nitrite+, leuk esterase+, pyuria, bacteriuria+, Urine cx- contaminated- mixed krzysztof -CT A/P 10/30- no pyelonephritis, notable for acute on chronic diverticulitis, and 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 Antibiotics: Zosyn (11/05 - 11/18) Linezolid (10/31 - 11/18) Unasyn (11/01 - 11/05)Augmentin (10/30 - 10/31), Cefe, metronidazole (12/12-12/21) Augmentin BID (11/18-) Tedizolid 200mg daily (11/18-) until surgery with CRS - - needs new PA for tedizolid - denied -appealing - 01/14: - PA for tedizolid was appealed- denial was upheld, with a 24 hour window to provide additional documentation, Discussed with ID team, who documented the necessity for prolonged antibiotic course , which was faxed over by the CM 01/15- PA pending - Mcclelland indication: 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 12/04/2024 - replaced with 22Fr [address] mcclelland catheter; irrigation 30cc bid - 12/24 Tmax=38.7, WBC=7.79k-check cultures-pending, viral swab(-) - 12/25 Tmax=39.2, hemodynamically stable, per ID monitor and hold on empiric IV abx, monitor-BCx's (+) for ruddy albicans-start micafungin - 12/26 ECHO with no vegetations - 12/27 (-) exam per ophtha for ocular fungemia-will ask for peripheral IV-BCx x 1 sent - 12/28 PICC line pulled, repeat BCx sent, 12/27 BC with staph epi-likely contaminant 12/29 - growing staph epidermidis -> likely contaminant 12/30 - Repeat blood cultures sent on 12/30 NGTD - 01/03- picc line placed for home Na thisulphate at discharge - 01/09/2025- completed 2 weeks of iv micafungin from neg cx 12/27 Assessment & Plan (01/14/2025 11:05 PM CDT): -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, UA (10/30)- nitrite+, leuk esterase+, pyuria, bacteriuria+, Urine cx- contaminated- mixed krzysztof -CT A/P 10/30- no pyelonephritis, notable for acute on chronic diverticulitis, and 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 12/04/2024 - replaced with 22Fr [address] mcclelland catheter; irrigation 30cc bid - 12/24 Tmax=38.7, WBC=7.79k-check cultures-pending, viral swab(-) - 12/25 Tmax=39.2, hemodynamically stable, per ID monitor and hold on empiric IV abx, monitor-BCx's (+) for ruddy albicans-start micafungin - 12/26 ECHO with no vegetations - 12/27 (-) exam per ophtha for ocular fungemia-will ask for peripheral IV-BCx x 1 sent - 12/28 PICC line pulled, repeat BCx sent, 12/27 BC with staph epi-likely contaminant 12/29 - growing staph epidermidis -> likely contaminant 12/30 - Repeat blood cultures sent on 12/30 NGTD - 01/03- picc line placed for home Na thisulphate at discharge - 01/09/2025- completed 2 weeks of iv micafungin from neg cx 12/27 Assessment & Plan (01/13/2025 8:04 PM CDT): -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, UA (10/30)- nitrite+, leuk esterase+, pyuria, bacteriuria+, Urine cx- contaminated- mixed krzysztof -CT A/P 10/30- no pyelonephritis, notable for acute on chronic diverticulitis, and 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 12/04/2024 - replaced with 22Fr [address] mcclelland catheter; irrigation 30cc bid - 12/24 Tmax=38.7, WBC=7.79k-check cultures-pending, viral swab(-) - 12/25 Tmax=39.2, hemodynamically stable, per ID monitor and hold on empiric IV abx, monitor-BCx's (+) for ruddy albicans-start micafungin - 12/26 ECHO with no vegetations - 12/27 (-) exam per ophtha for ocular fungemia-will ask for peripheral IV-BCx x 1 sent - 12/28 PICC line pulled, repeat BCx sent, 12/27 BC with staph epi-likely contaminant 12/29 - growing staph epidermidis -> likely contaminant 12/30 - Repeat blood cultures sent on 12/30 NGTD - 01/03- picc line placed for home Na thisulphate at discharge - 01/09/2025- completed 2 weeks of iv micafungin from neg cx 12/27 Assessment & Plan (01/12/2025 1:20 PM CDT): -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 12/04/2024 - replaced with 22Fr [address] mcclelland catheter; irrigation 30cc bid - 12/24 Tmax=38.7, WBC=7.79k-check cultures-pending, viral swab(-) - 12/25 Tmax=39.2, hemodynamically stable, per ID monitor and hold on empiric IV abx, monitor-BCx's (+) for ruddy albicans-start micafungin - 12/26 ECHO with no vegetations - 12/27 (-) exam per ophtha for ocular fungemia-will ask for peripheral IV-BCx x 1 sent - 12/28 PICC line pulled, repeat BCx sent, 12/27 BC with staph epi-likely contaminant 12/29 - growing staph epidermidis -> likely contaminant 12/30 - Repeat blood cultures sent on 12/30 NGTD - 01/03- picc line placed for home Na thisulphate at discharge - but decrease dose to 12.5 gm 3X/week - patient to receive 2 weeks of iv micafungin from when the cultures became neg ie (Last growth of ruddy noted on cx from 12/24 ) neg cx n 12/27 - EOT 01/09/2501/04- does not feel ready to be dicharged, wants to continue intensive PT. 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 12/04/2024 - replaced with 22Fr [address] mcclelland catheter; irrigation 30cc bid - 12/24 Tmax=38.7, WBC=7.79k-check cultures-pending, viral swab(-) - 12/25 Tmax=39.2, hemodynamically stable, per ID monitor and hold on empiric IV abx, monitor-BCx's (+) for ruddy albicans-start micafungin - 12/26 ECHO with no vegetations - 12/27 (-) exam per ophtha for ocular fungemia-will ask for peripheral IV-BCx x 1 sent - 12/28 PICC line pulled, repeat BCx sent, 12/27 BC with staph epi-likely contaminant 12/29 - growing staph epidermidis -> likely contaminant 12/30 - Repeat blood cultures sent on 12/30 NGTD - 01/03- picc line placed for home Na thisulphate at discharge - but decrease dose to 12.5 gm 3X/week - patient to receive 2 weeks of iv micafungin from when the cultures became neg ie (Last growth of ruddy noted on cx from 12/24 ) neg cx n 12/27 - EOT 01/09/2501/04- does not feel ready to be dicharged, wants to continue intensive PT. 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 12/04/2024 - replaced with 22Fr [address] mcclelland catheter; irrigation 30cc bid - 12/24 Tmax=38.7, WBC=7.79k-check cultures-pending, viral swab(-) - 12/25 Tmax=39.2, hemodynamically stable, per ID monitor and hold on empiric IV abx, monitor-BCx's (+) for ruddy albicans-start micafungin - 12/26 ECHO with no vegetations - 12/27 (-) exam per ophtha for ocular fungemia-will ask for peripheral IV-BCx x 1 sent - 12/28 PICC line pulled, repeat BCx sent, 12/27 BC with staph epi-likely contaminant 12/29 - growing staph epidermidis -> likely contaminant 12/30 - Repeat blood cultures sent on 12/30 NGTD - 01/03- picc line placed for home Na thisulphate at discharge - but decrease dose to 12.5 gm 3X/week - patient to receive 2 weeks of iv micafungin from when the cultures became neg ie (Last growth of ruddy noted on cx from 12/24 ) neg cx n 12/27 - EOT 01/09/25 at 1700 01/04- does not feel ready to be dicharged, wants to continue intensive PT. 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 12/04/2024 - replaced with 22Fr [address] way mccle[facility]and catheter; irrigation 30cc bid - 12/24 Tmax=38.7, WBC=7.79k-check cultures-pending, viral swab(-) - 12/25 Tmax=39.2, hemodynamically stable, per ID monitor and hold on empiric IV abx, monitor-BCx's (+) for ruddy albicans-start micafungin - 12/26 ECHO with no vegetations - 12/27 (-) exam per ophtha for ocular fungemia-will ask for peripheral IV-BCx x 1 sent - 12/28 PICC line pulled, repeat BCx sent, 12/27 BC with staph epi-likely contaminant 12/29 - growing staph epidermidis -> likely contaminant 12/30 - Repeat blood cultures sent on 12/30 NGTD - 01/03- picc line placed for home Na thisulphate at discharge - but decrease dose to 12.5 gm 3X/week - patient to receive 2 weeks of iv micafungin from when the cultures became neg ie (Last growth of ruddy noted on cx from 12/24 ) neg cx n 12/27 - EOT 01/09/25 at 1700 01/04- does not feel ready to be dicharged, wants to continue intensive PT. 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 12/04/2024 - replaced with 22Fr 3 way mccle[facility]and catheter; irrigation 30cc bid - 12/24 Tmax=38.7, WBC=7.79k-check cultures-pending, viral swab(-) - 12/25 Tmax=39.2, hemodynamically stable, per ID monitor and hold on empiric IV abx, monitor-BCx's (+) for ruddy albicans-start micafungin - 12/26 ECHO with no vegetations - 12/27 (-) exam per ophtha for ocular fungemia-will ask for peripheral IV-BCx x 1 sent - 12/28 PICC line pulled, repeat BCx sent, 12/27 BC with staph epi-likely contaminant 12/29 - growing staph epidermidis -> likely contaminant 12/30 - Repeat blood cultures sent on 12/30 NGTD - 01/03- picc line placed for home Na thisulphate at discharge - but decrease dose to 12.5 gm 3X/week - patient to receive 2 weeks of iv micafungin from when the cultures became neg ie (Last growth of ruddy noted on cx from 12/24 ) neg cx n 12/27 - EOT 01/09/25 at 1700 01/04- does not feel ready to be dicharged, wants to continue intensive PT. 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 12/04/2024 - replaced with 22Fr 3 way mccle[facility]and catheter; irrigation 30cc bid - 12/24 Tmax=38.7, WBC=7.79k-check cultures-pending, viral swab(-) - 12/25 Tmax=39.2, hemodynamically stable, per ID monitor and hold on empiric IV abx, monitor-BCx's (+) for ruddy albicans-start micafungin - 12/26 ECHO with no vegetations - 12/27 (-) exam per ophtha for ocular fungemia-will ask for peripheral IV-BCx x 1 sent - 12/28 PICC line pulled, repeat BCx sent, 12/27 BC with staph epi-likely contaminant 12/29 - growing staph epidermidis -> likely contaminant 12/30 - Repeat blood cultures sent on 12/30 NGTD - 01/03- picc line placed for home Na thisulphate at discharge - but decrease dose to 12.5 gm 3X/week - patient to receive 2 weeks of iv micafungin from when the cultures became neg ie (Last growth of ruddy noted on cx from 12/24 ) neg cx n 12/27 - EOT 01/09/25 at 1700 01/04- does not feel ready to be dicharged, wants to continue intensive PT. 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 12/04/2024 - replaced with 22Fr 3 way mccle[facility]and catheter; irrigation 30cc bid - 12/24 Tmax=38.7, WBC=7.79k-check cultures-pending, viral swab(-) - 12/25 Tmax=39.2, hemodynamically stable, per ID monitor and hold on empiric IV abx, monitor-BCx's (+) for ruddy albicans-start micafungin - 12/26 ECHO with no vegetations - 12/27 (-) exam per ophtha for ocular fungemia-will ask for peripheral IV-BCx x 1 sent - 12/28 PICC line pulled, repeat BCx sent, 12/27 BC with staph epi-likely contaminant 12/29 - growing staph epidermidis -> likely contaminant 12/30 - Repeat blood cultures sent on 12/30 NGTD - 01/03- picc line placed for home Na thisulphate at discharge - but decrease dose to 12.5 gm 3X/week - patient to receive 2 weeks of iv micafungin from when the cultures became neg ie (Last growth of ruddy noted on cx from 12/24 ) neg cx n 12/27 - EOT 01/09/25 at 1700 01/04- does not feel ready to be dicharged, wants to continue intensive PT. given recurrent admissions (>4 this year), will benefit from continued rehab to decrease risk of readmission, plan to finish antibiotics until 01/09, and then discharge Assessment & Plan (01/06/2025 5:36 PM CDT): - continue amoxicillin-clavulanate 875-125 mg q12 hours and tedizolid 200 mg qday. No surgery planned at this time per CRS. 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 12/04/2024 - replaced with 22Fr [address] way mccle[facility]and catheter; irrigation 30cc bid - 12/24 Tmax=38.7, WBC=7.79k-check cultures-pending, viral swab(-) - 12/25 Tmax=39.2, hemodynamically stable, per ID monitor and hold on empiric IV abx, monitor-BCx's (+) for ruddy albicans-start micafungin - 12/26 ECHO with no vegetations - 12/27 (-) exam per ophtha for ocular fungemia-will ask for peripheral IV-BCx x 1 sent - 12/28 PICC line pulled, repeat BCx sent, 12/27 BC with staph epi-likely contaminant 12/29 - growing staph epidermidis -> likely contaminant 12/30 - Repeat blood cultures sent on 12/30 NGTD Plan: - 01/03- picc line placed for home antibiotics - patient to receive 2 weeks of iv micafungin from when the cultures became neg ie (Last growth of ruddy noted on cx from 12/24 ) neg cx n 12/27 - EOT 01/09/2501/04- does not feel ready to be dicharged, wants to continue intensive PT. 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 12/04/2024 - replaced with 22Fr [address] way mccle[facility] catheter; irrigation 30cc bid - 12/24 Tmax=38.7, WBC=7.79k-check cultures-pending, viral swab(-) - 12/25 Tmax=39.2, hemodynamically stable, per ID monitor and hold on empiric IV abx, monitor-BCx's (+) for ruddy albicans-start micafungin - 12/26 ECHO with no vegetations - 12/27 (-) exam per ophtha for ocular fungemia-will ask for peripheral IV-BCx x 1 sent - 12/28 PICC line pulled, repeat BCx sent, 12/27 BC with staph epi-likely contaminant 12/29 - growing staph epidermidis -> likely contaminant 12/30 - Repeat blood cultures sent on 12/30 NGTD Plan: - 01/04- picc line placed for home antibiotics - patient to receive 2 weeks of iv micafungin from when the cultures became neg ie (Last growth of ruddy noted on cx from 12/24 ) ~01/07 -medically ready for discharge - CM was working on setting up her home infusion, but patient says she doesn't feel ready to leave and still feels weak . Of note, patient has had >4 hospital admissions since May, and is at high risk of readmission, especially in her current debilitated state. will plan to finish antifungal course inpatient on 01/07 , remove PICC line and then d/c with home PT/OT. 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 12/04/2024 - replaced with 22Fr [address] mccle[facility]and catheter; irrigation 30cc bid - 12/24 Tmax=38.7, WBC=7.79k-check cultures-pending, viral swab(-) - 12/25 Tmax=39.2, hemodynamically stable, per ID monitor and hold on empiric IV abx, monitor-BCx's (+) for ruddy albicans-start micafungin - 12/26 ECHO with no vegetations - 12/27 (-) exam per ophtha for ocular fungemia-will ask for peripheral IV-BCx x 1 sent - 12/28 PICC line pulled, repeat BCx sent, 12/27 BC with staph epi-likely contaminant 12/29 - growing staph epidermidis -> likely contaminant 12/30 - Repeat blood cultures sent on 12/30 NGTD Plan: - - blood cultures from 12/30- have been negative till date. 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 12/04/2024 - replaced with 22Fr [address] mccle[place] catheter; irrigation 30cc bid - 12/24 Tmax=38.7, WBC=7.79k-check cultures-pending, viral swab(-) - 12/25 Tmax=39.2, hemodynamically stable, per ID monitor and hold on empiric IV abx, monitor-BCx's (+) for ruddy albicans-start micafungin - 12/26 ECHO with no vegetations - 12/27 (-) exam per ophtha for ocular fungemia-will ask for peripheral IV-BCx x 1 sent - 12/28 PICC line pulled, repeat BCx sent, 12/27 BC with staph epi-likely contaminant 12/29 - growing staph epidermidis , final report pending 12/30 - Repeat blood cultures sent on 12/30 NGTD, final report pending - f/u culture reports- patient to receive 2 weeks of iv micafungin from when the cultures became neg, will need PICC line for home iv abx therapy once cultures remain neg for 48 hours Assessment & Plan (01/01/2025 6:42 PM CDT): -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 12/04/2024 - replaced with 22Fr [address] mcclelland catheter; irrigation 30cc bid - 12/24 Tmax=38.7, WBC=7.79k-check cultures-pending, viral swab(-) - 12/25 Tmax=39.2, hemodynamically stable, per ID monitor and hold on empiric IV abx, monitor-BCx's (+) for ruddy albicans-start micafungin - 12/26 ECHO with no vegetations - 12/27 (-) exam per ophtha for ocular fungemia-will ask for peripheral IV-BCx x 1 sent - 12/28 PICC line pulled, repeat BCx sent, 12/27 BC with staph epi-likely contaminant 12/29 - growing staph epidermidis , final report pending Repeat blood cultures sent on 12/30 NGTD - f/u culture reports- patient to receive 2 weeks of iv micafungin from when the cultures became neg, will need PICC line for home iv abx therapy once cultures remain neg for 48 hours Assessment & Plan (12/31/2024 7:53 PM CDT): -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 12/04/2024 - replaced with 22Fr [address] mcclelland catheter; irrigation 30cc bid - 12/24 Tmax=38.7, WBC=7.79k-check cultures-pending, viral swab(-) - 12/25 Tmax=39.2, hemodynamically stable, per ID monitor and hold on empiric IV abx, monitor-BCx's (+) for ruddy albicans-start micafungin - 12/26 ECHO with no vegetations - 12/27 (-) exam per ophtha for ocular fungemia-will ask for peripheral IV-BCx x 1 sent - 12/28 PICC line pulled, repeat BCx sent, 12/27 BC with staph epi-likely contaminant 12/29 - growing staph epidermidis , final report pending Repeat blood cultures sent on 12/30 NGTD - f/u culture reports- patient to receive 2 weeks of iv micafungin from when the cultures became neg, will need PICC line for home iv abx therapy once cultures remain neg for 48 hours Assessment & Plan (12/30/2024 4:26 PM CDT): -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 12/04/2024 - replaced with 22Fr [address] mcclelland catheter; irrigation 30cc bid - 12/24 Tmax=38.7, WBC=7.79k-check cultures-pending, viral swab(-) - 12/25 Tmax=39.2, hemodynamically stable, per ID monitor and hold on empiric IV abx, monitor-BCx's (+) for ruddy albicans-start micafungin - 12/26 ECHO with no vegetations - 12/27 (-) exam per ophtha for ocular fungemia-will ask for peripheral IV-BCx x 1 sent - 12/28 PICC line pulled, repeat BCx sent, 12/27 BC with staph epi-likely contaminant 12/28- NGTD (prelim) 12/29 - now with GPCs in clusters (pelim) - ID following, repeat blood cx 12/30 ordered - f/u culture reports- patient to receive 2 weeks of iv micafungin from when the cultures became neg, will need PICC line for home iv abx therapy once cultures remain neg for 48 hours Assessment & Plan (12/31/2024 2:02 PM CDT): - continue amoxicillin-clavulanate 875-125 mg q12 hours and tedizolid 200 mg qday. No surgery planned at this time per CRS. 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 12/04/2024 - replaced with 22Fr [address] mcclelland catheter; irrigation 30cc bid Assessment & Plan (12/19/2024 4:57 PM CDT): Nina Macias is a 44 y.o. 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 She was re-admitted 10/31 with recurrent fever, nausea, and vomiting with LLQ abdominal pain. CT imaging continued to demonstrate acute on chronic sequela of diverticulitis similar to prior exams. She was continued on amoxicillin-clavulanate and tedizolid was switched to linezolid (10/30-). She was scheduled to undergo exploratory laparotomy, takedown of colovesical fistula, sigmoidectomy, and possible colostomy and preoperative stent placement but the procedure was aborted due to cardiac arrest during induction during which difficult airway ended up requiring emergency cric. She then underwent trach which has since been decannulated but amidst her long PCU stay, decision made to defer surgery w/ CRS during present hospitalization. CT abdomen noncontrast 12/14: Redemonstrated sequela of prior sigmoid diverticulitis with colovesicular fistula. Slightly increased fat stranding and wall thickening of the sigmoid colon likely represents a superimposed acute component. Per primary team note 12/15, still no acute surgical intervention at this time. 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 Bcx collected 12/13 w/ S epidermidis, likely contaminant as repeat bcx NG, final w/ other likely explanations for her fevers. 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 Antibiotics: Zosyn (11/05 - 11/18) Linezolid (10/31 - 11/18) Unasyn (11/01 - 11/05)Augmentin (10/30 - 10/31) Augmentin 875-125mg BID (11/18-) Tedizolid 200mg daily (11/18-) no end date or until surgery done - per CRS, no further plan for surgery this admission: plan to f/up in clinic - Contact precautions - 11/22, placed 16 Fr urinary catheter - should have been 22Fr - [facility] indication: 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) - 12/04/2024 - replaced with 22Fr [address] way mcclelland catheter; irrigation 30cc bid - 12/13 Septic with fever 103F, tachycardic and hypotensive, suspect wound infection: Cefe , metronidazole extended duration (12/12-12/21), c/w Tedizolif (resume Augmentin 12/21) - pursue noncontrast (rising creatinine) CT chest/abd/pelvis ->severe hepatic steatosis - MRSE blood stream infection (Bc 12/13), likely contaminant, repeat blood cultures NGTD, low grade fever on 12/18: repeat Blood Cx NTD - appreciate ID recs Assessment & Plan (12/18/2024 3:25 PM CDT): -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, UA (10/30)- nitrite+, leuk esterase+, pyuria, bacteriuria+, Urine cx- contaminated- mixed krzysztof -CT A/P 10/30- no pyelonephritis, notable for acute on chronic diverticulitis, and 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 Antibiotics: Zosyn (11/05 - 11/18) Linezolid (10/31 - 11/18) Unasyn (11/01 - 11/05)Augmentin (10/30 - 10/31) Augmentin 875-125mg BID (11/18-) Tedizolid 200mg daily (11/18-) no end date or until surgery done - per CRS, no further plan for surgery this admission: plan to f/up in clinic - Contact precautions - 11/22, placed 16 Fr urinary catheter - should have been 22Fr - [facility] indication: 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 Antibiotics: Zosyn (11/05 - 11/18) Linezolid (10/31 - 11/18) Unasyn (11/01 - 11/05)Augmentin (10/30 - 10/31) Augmentin 875-125mg BID (11/18-) Tedizolid 200mg daily (11/18-) no end date or until surgery done - per CRS, no further plan for surgery this admission: plan to f/up in clinic - Contact precautions - 11/22, placed 16 Fr urinary catheter - should have been 22Fr - [facility] indication: 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) - 12/04/2024 - replaced with 22Fr [address] way mcclelland catheter; irrigation 30cc bid - 12/13 Septic with fever 103F, tachycardic and hypotensive, suspect wound infection: Cefe , metronidazole(12/12-), c/w Tedizolif (resume Augmentin on 12/19) - pursue noncontrast (rising creatinine) CT chest/abd/pelvis ->severe hepatic steatosis - MRSE blood stream infection (Bc 12/13), likely contaminant, repeat blood cultures NGTD - appreciate ID recs Assessment & Plan (12/16/2024 2:46 PM CDT): -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, UA (10/30)- nitrite+, leuk esterase+, pyuria, bacteriuria+, Urine cx- contaminated- mixed krzysztof -CT A/P 10/30- no pyelonephritis, notable for acute on chronic diverticulitis, and 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 Antibiotics: Zosyn (11/05 - 11/18) Linezolid (10/31 - 11/18) Unasyn (11/01 - 11/05)Augmentin (10/30 - 10/31) Augmentin 875-125mg BID (11/18-) Tedizolid 200mg daily (11/18-) no end date or until surgery done - per CRS, no further plan for surgery this admission: plan to f/up in clinic - Contact precautions - 11/22, placed 16 Fr urinary catheter - should have been 22Fr - [facility] indication: 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) - 12/04/2024 - replaced with 22Fr [address] way mcclelland catheter; irrigation 30cc bid - 12/13 Septic with fever 103F, tachycardic and hypotensive, suspect wound infection: Cefe , metronidazole(12/12-), c/w Tedizolif (resume Augmentin on 12/19) - pursue noncontrast (rising creatinine) CT chest/abd/pelvis ->severe hepatic steatosis - MRSE blood stream infection (Bc 12/13), likely contaminant, repeat blood cultures NGTD - appreciate ID recs Assessment & Plan (12/15/2024 12:46 PM CDT): -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, UA (10/30)- nitrite+, leuk esterase+, pyuria, bacteriuria+, Urine cx- contaminated- mixed krzysztof -CT A/P 10/30- no pyelonephritis, notable for acute on chronic diverticulitis, and 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 Antibiotics: Zosyn (11/05 - 11/18) Linezolid (10/31 - 11/18) Unasyn (11/01 - 11/05)Augmentin (10/30 - 10/31) Augmentin 875-125mg BID (11/18-) Tedizolid 200mg daily (11/18-) no end date or until surgery done - per CRS, no further plan for surgery this admission: plan to f/up in clinic - Contact precautions - 11/22, placed 16 Fr urinary catheter - should have been 22Fr - [facility] indication: 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) - 12/04/2024 - replaced with 22Fr [address] way mcclelland catheter; irrigation 30cc bid - 12/13 Septic with fever 103F, tachycardic and hypotensive, suspect wound infection, r/o worsening IA infection, has line in place r/o line infection, work-up sent, LR bolus x 2 liters, start Dapto and Cefe (hold Augmentin and Tedizolif) - Add Flagyl given LFT elevation concern for biliary infection, pursue noncontrast (rising creatinine) CT chest/abd/pelvis ->severe hepatic steatosis - MRSE blood stream infection (Bc 12/13), hopefully contaminant, repeat blood cultures NGTD - Anticipate ID for more recommendations Assessment & Plan (12/15/2024 1:02 PM CDT): Nina Macias is a 44 y.o. 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 She was re-admitted 10/31 with recurrent fever, nausea, and vomiting with LLQ abdominal pain. CT imaging continued to demonstrate acute on chronic sequela of diverticulitis similar to prior exams. She was continued on amoxicillin-clavulanate and tedizolid was switched to linezolid (10/30-). She was scheduled to undergo exploratory laparotomy, takedown of colovesical fistula, sigmoidectomy, and possible colostomy and preoperative stent placement but the procedure was aborted due to cardiac arrest during induction during which difficult airway ended up requiring emergency cric. She then underwent trach which has since been decannulated but amidst her long PCU stay, decision made to defer surgery w/ CRS during present hospitalization. CT abdomen noncontrast 12/14: Redemonstrated sequela of prior sigmoid diverticulitis with colovesicular fistula. Slightly increased fat stranding and wall thickening of the sigmoid colon likely represents a superimposed acute component. Per primary team note 12/15, still no acute surgical intervention at this time. 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 Bcx collected 12/13 w/ S epidermidis, likely contaminant w/ other likely explanations for her fevers. 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 Antibiotics: Zosyn (11/05 - 11/18) Linezolid (10/31 - 11/18) Unasyn (11/01 - 11/05)Augmentin (10/30 - 10/31) Augmentin 875-125mg BID (11/18-) Tedizolid 200mg daily (11/18-) no end date or until surgery done - per CRS, no further plan for surgery this admission: plan to f/up in clinic - Contact precautions - 11/22, placed 16 Fr urinary catheter - should have been 22Fr - [facility] indication: 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) - 12/04/2024 - replaced with 22Fr [address] mcclelland catheter; irrigation 30cc bid - 12/13 Septic with fever 103F, tachycardic and hypotensive, suspect wound infection, r/o worsening IA infection, has line in place r/o line infection, work-up sent, LR bolus x 2 liters, start Dapto and Cefe (hold Augmentin and Tedizolif) - Add Flagyl given LFT elevation concern for biliary infection, pursue noncontrast (rising creatinine) CT chest/abd/pelvis, consider RUQ ultrasound - MRSE blood stream infection (Bc 12/13), hopefully contaminant, repeat blood cultures Assessment & Plan (12/14/2024 10:59 AM CDT): -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, UA (10/30)- nitrite+, leuk esterase+, pyuria, bacteriuria+, Urine cx- contaminated- mixed krzysztof -CT A/P 10/30- no pyelonephritis, notable for acute on chronic diverticulitis, and 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 Antibiotics: Zosyn (11/05 - 11/18) Linezolid (10/31 - 11/18) Unasyn (11/01 - 11/05)Augmentin (10/30 - 10/31) Augmentin 875-125mg BID (11/18-) Tedizolid 200mg daily (11/18-) no end date or until surgery done - per CRS, no further plan for surgery this admission: plan to f/up in clinic - Contact precautions - 11/22, placed 16 Fr urinary catheter - should have been 22Fr - [facility] indication: 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) - 12/04/2024 - replaced with 22Fr [address] mcclelland catheter; irrigation 30cc bid - 12/13 Septic with fever 103F, tachycardic and hypotensive, suspect wound infection, r/o worsening IA infection, has line in place r/o line infection, work-up sent, LR bolus x 2 liters, start Dapto and Cefe (hold Augmentin and Tedizolif) Assessment & Plan (12/12/2024 2:48 PM CDT): -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, UA (10/30)- nitrite+, leuk esterase+, pyuria, bacteriuria+, Urine cx- contaminated- mixed krzysztof -CT A/P 10/30- no pyelonephritis, notable for acute on chronic diverticulitis, and 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 Antibiotics: Zosyn (11/05 - 11/18) Linezolid (10/31 - 11/18) Unasyn (11/01 - 11/05)Augmentin (10/30 - 10/31) Augmentin 875-125mg BID (11/18-) Tedizolid 200mg daily (11/18-) no end date or until surgery done - per CRS, no further plan for surgery this admission: plan to f/up in clinic - Contact precautions - 11/22, placed 16 Fr urinary catheter - should have been 22Fr - [facility] indication: 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) - 12/04/2024 - replaced with 22Fr [address] mcclelland catheter; irrigation 30cc bid Assessment & Plan (12/11/2024 8:52 PM CDT): -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, UA (10/30)- nitrite+, leuk esterase+, pyuria, bacteriuria+, Urine cx- contaminated- mixed krzysztof -CT A/P 10/30- no pyelonephritis, notable for acute on chronic diverticulitis, and 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 Antibiotics: Zosyn (11/05 - 11/18) Linezolid (10/31 - 11/18) Unasyn (11/01 - 11/05)Augmentin (10/30 - 10/31) Augmentin 875-125mg BID (11/18-) Tedizolid 200mg daily (11/18-) no end date or until surgery done - per CRS, no further plan for surgery this admission: plan to f/up in clinic - Contact precautions - 11/22, placed 16 Fr urinary catheter - should have been 22Fr - [facility] indication: 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) - 12/04/2024 - replaced with 22Fr [address] mcclelland catheter; irrigation 30cc bid Assessment & Plan (12/10/2024 8:41 AM CDT): -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, UA (10/30)- nitrite+, leuk esterase+, pyuria, bacteriuria+, Urine cx- contaminated- mixed krzysztof -CT A/P 10/30- no pyelonephritis, notable for acute on chronic diverticulitis, and 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 Antibiotics: Zosyn (11/05 - 11/18) Linezolid (10/31 - 11/18) Unasyn (11/01 - 11/05)Augmentin (10/30 - 10/31) Augmentin 875-125mg BID (11/18-) Tedizolid 200mg daily (11/18-) - per CRS, no further plan for surgery this admission: plan to f/up in clinic - Contact precautions - 11/22, placed 16 Fr urinary catheter - should have been 22Fr - [facility] indication: 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) - 12/04/2024 - replaced with 22Fr [address] mcclelland catheter; irrigation 30cc bid Assessment & Plan (12/09/2024 8:35 AM CDT): -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, UA (10/30)- nitrite+, leuk esterase+, pyuria, bacteriuria+, Urine cx- contaminated- mixed krzysztof -CT A/P 10/30- no pyelonephritis, notable for acute on chronic diverticulitis, and 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 Antibiotics: Zosyn (11/05 - 11/18) Linezolid (10/31 - 11/18) Unasyn (11/01 - 11/05)Augmentin (10/30 - 10/31) Augmentin 875-125mg BID (11/18-) Tedizolid 200mg daily (11/18-) - per CRS, no further plan for surgery this admission: plan to f/up in clinic - Contact precautions - 11/22, placed 16 Fr urinary catheter - should have been 22Fr - [facility] indication: 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) - 12/04/2024 - replaced with 22Fr [address] mcclelland catheter; irrigation 30cc bid Assessment & Plan (12/08/2024 2:09 PM CDT): -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, UA (10/30)- nitrite+, leuk esterase+, pyuria, bacteriuria+, Urine cx- contaminated- mixed krzysztof -CT A/P 10/30- no pyelonephritis, notable for acute on chronic diverticulitis, and 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 Antibiotics: Zosyn (11/05 - 11/18) Linezolid (10/31 - 11/18) Unasyn (11/01 - 11/05)Augmentin (10/30 - 10/31) Augmentin 875-125mg BID (11/18-) Tedizolid 200mg daily (11/18-) - per CRS, no further plan for surgery this admission: plan to f/up in clinic - Contact precautions - 11/22, placed 16 Fr urinary catheter - should have been 22Fr - [facility] indication: 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) - 12/04/2024 - replaced with 22Fr [address] mcclelland catheter; irrigation 30cc bid Assessment & Plan (12/07/2024 1:18 PM CDT): -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, UA (10/30)- nitrite+, leuk esterase+, pyuria, bacteriuria+, Urine cx- contaminated- mixed krzysztof -CT A/P 10/30- no pyelonephritis, notable for acute on chronic diverticulitis, and 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 Antibiotics: Zosyn (11/05 - 11/18) Linezolid (10/31 - 11/18) Unasyn (11/01 - 11/05)Augmentin (10/30 - 10/31) Augmentin 875-125mg BID (11/18-) Tedizolid 200mg daily (11/18-) - per CRS, no further plan for surgery this admission: plan to f/up in clinic - Contact precautions - 11/22, placed 16 Fr urinary catheter - should have been 22Fr - [facility] indication: 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) - 12/04/2024 - replaced with 22Fr [address] mcclelland catheter; irrigation 30cc bid Assessment & Plan (12/06/2024 2:19 PM CDT): -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, UA (10/30)- nitrite+, leuk esterase+, pyuria, bacteriuria+, Urine cx- contaminated- mixed krzysztof -CT A/P 10/30- no pyelonephritis, notable for acute on chronic diverticulitis, and 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 Antibiotics: Zosyn (11/05 - 11/18) Linezolid (10/31 - 11/18) Unasyn (11/01 - 11/05)Augmentin (10/30 - 10/31) Augmentin 875-125mg BID (11/18-) Tedizolid 200mg daily (11/18-) - per CRS, no further plan for surgery this admission: plan to f/up in clinic - Contact precautions - 11/22, placed 16 Fr urinary catheter - should have been 22Fr - [facility] indication: 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) - 12/04/2024 - replaced with 22Fr [address] mcclelland catheter; irrigation 30cc bid Assessment & Plan (12/05/2024 4:47 PM CDT): -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, UA (10/30)- nitrite+, leuk esterase+, pyuria, bacteriuria+, Urine cx- contaminated- mixed krzysztof -CT A/P 10/30- no pyelonephritis, notable for acute on chronic diverticulitis, and 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 Antibiotics: Zosyn (11/05 - 11/18) Linezolid (10/31 - 11/18) Unasyn (11/01 - 11/05)Augmentin (10/30 - 10/31) Augmentin 875-125mg BID (11/18-) Tedizolid 200mg daily (11/18-) - per CRS, no further plan for surgery this admission: plan to f/up in clinic - Contact precautions - 11/22, placed 16 Fr urinary catheter - should have been 22Fr - [facility] indication: 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) - 12/04/2024 - replaced with 22Fr [address] mcclelland catheter; irrigation 30cc bid Assessment & Plan (12/04/2024 2:08 PM CDT): -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, UA (10/30)- nitrite+, leuk esterase+, pyuria, bacteriuria+, Urine cx- contaminated- mixed krzysztof -CT A/P 10/30- no pyelonephritis, notable for acute on chronic diverticulitis, and 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 Antibiotics: Zosyn (11/05 - 11/18) Linezolid (10/31 - 11/18) Unasyn (11/01 - 11/05)Augmentin (10/30 - 10/31) Augmentin 875-125mg BID (11/18-) Tedizolid 200mg daily (11/18-) - per CRS, no further plan for surgery this admission: plan to f/up in clinic - Contact precautions - 11/22, placed 16 Fr urinary catheter - should have been 22Fr - [facility]and indication: 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) - 12/04/2024 - replaced with 22Fr [address] mcclelland catheter; irrigation 30cc bid Assessment & Plan (12/03/2024 6:06 PM CDT): -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, UA (10/30)- nitrite+, leuk esterase+, pyuria, bacteriuria+, Urine cx- contaminated- mixed krzysztof -CT A/P 10/30- no pyelonephritis, notable for acute on chronic diverticulitis, and 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 Antibiotics: Zosyn (11/05 - 11/18) Linezolid (10/31 - 11/18) Unasyn (11/01 - 11/05)Augmentin (10/30 - 10/31) Augmentin 875-125mg BID (11/18-) Tedizolid 200mg daily (11/18-) - per CRS, no further plan for surgery this admission: plan to f/up in clinic - Contact precautions - 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 -replaced on 11/22 05/25 to crack Assessment & Plan (12/02/2024 2:26 PM CDT): -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, UA (10/30)- nitrite+, leuk esterase+, pyuria, bacteriuria+, Urine cx- contaminated- mixed krzysztof -CT A/P 10/30- no pyelonephritis, notable for acute on chronic diverticulitis, and 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 Antibiotics: Zosyn (11/05 - 11/18) Linezolid (10/31 - 11/18) Unasyn (11/01 - 11/05)Augmentin (10/30 - 10/31) Augmentin 875-125mg BID (11/18-) Tedizolid 200mg daily (11/18-) - per CRS, no further plan for surgery this admission: plan to f/up in clinic - Contact precautions - 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 -replaced on 11/22 05/25 to crack Assessment & Plan (12/01/2024 9:54 AM CDT): -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, UA (10/30)- nitrite+, leuk esterase+, pyuria, bacteriuria+, Urine cx- contaminated- mixed krzysztof -CT A/P 10/30- no pyelonephritis, notable for acute on chronic diverticulitis, and 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 Antibiotics: Zosyn (11/05 - 11/18) Linezolid (10/31 - 11/18) Unasyn (11/01 - 11/05)Augmentin (10/30 - 10/31) Augmentin 875-125mg BID (11/18-) Tedizolid 200mg daily (11/18-) - per CRS, no further plan for surgery this admission: plan to f/up in clinic - Contact precautions - 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 -replaced on 11/22 05/25 to crack Assessment & Plan (11/30/2024 1:01 PM CDT): -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, UA (10/30)- nitrite+, leuk esterase+, pyuria, bacteriuria+, Urine cx- contaminated- mixed krzysztof -CT A/P 10/30- no pyelonephritis, notable for acute on chronic diverticulitis, and 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 Antibiotics: Zosyn (11/05 - 11/18) Linezolid (10/31 - 11/18) Unasyn (11/01 - 11/05)Augmentin (10/30 - 10/31) Augmentin 875-125mg BID (11/18-) Tedizolid 200mg daily (11/18-) - per CRS, no further plan for surgery this admission: plan to f/up in clinic - Contact precautions - 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 -replaced on 11/22 05/25 to crack Assessment & Plan (11/29/2024 11:20 AM CDT): -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, UA (10/30)- nitrite+, leuk esterase+, pyuria, bacteriuria+, Urine cx- contaminated- mixed krzysztof -CT A/P 10/30- no pyelonephritis, notable for acute on chronic diverticulitis, and 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 Antibiotics: Zosyn (11/05 - 11/18) Linezolid (10/31 - 11/18) Unasyn (11/01 - 11/05)Augmentin (10/30 - 10/31) Augmentin 875-125mg BID (11/18-) Tedizolid 200mg daily (11/18-) - per CRS, no further plan for surgery this admission: plan to f/up in clinic - Contact precautions - 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 -replaced on 11/22 05/25 to crack Assessment & Plan (11/28/2024 1:42 PM CDT): -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, UA (10/30)- nitrite+, leuk esterase+, pyuria, bacteriuria+, Urine cx- contaminated- mixed krzysztof -CT A/P 10/30- no pyelonephritis, notable for acute on chronic diverticulitis, and 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 Antibiotics: Zosyn (11/05 - 11/18) Linezolid (10/31 - 11/18) Unasyn (11/01 - 11/05)Augmentin (10/30 - 10/31) Augmentin 875-125mg BID (11/18-) Tedizolid 200mg daily (11/18-) - per CRS, no further plan for surgery this admission: plan to f/up in clinic - Contact precautions - 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 -replaced on 11/22 05/25 to crack Assessment & Plan (11/27/2024 10:16 AM CDT): -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, UA (10/30)- nitrite+, leuk esterase+, pyuria, bacteriuria+, Urine cx- contaminated- mixed krzysztof -CT A/P 10/30- no pyelonephritis, notable for acute on chronic diverticulitis, and 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 Antibiotics: Zosyn (11/05 - 11/18) Linezolid (10/31 - 11/18) Unasyn (11/01 - 11/05)Augmentin (10/30 - 10/31) Augmentin 875-125mg BID (11/18-) Tedizolid 200mg daily (11/18-) - per CRS, no further plan for surgery this admission: plan to f/up in clinic - Contact precautions - 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 -replaced on 11/22 05/25 to crack Assessment & Plan (11/26/2024 12:13 PM CDT): -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, UA (10/30)- nitrite+, leuk esterase+, pyuria, bacteriuria+, Urine cx- contaminated- mixed krzysztof -CT A/P 10/30- no pyelonephritis, notable for acute on chronic diverticulitis, and 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 Antibiotics: Zosyn (11/05 - 11/18) Linezolid (10/31 - 11/18) Unasyn (11/01 - 11/05)Augmentin (10/30 - 10/31) Augmentin 875-125mg BID (11/18-) Tedizolid 200mg daily (11/18-) - per CRS, no further plan for surgery this admission: plan to f/up in clinic - Contact precautions - 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 -replaced on 11/22 05/25 to crack Assessment & Plan (11/25/2024 3:35 PM CDT): -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, UA (10/30)- nitrite+, leuk esterase+, pyuria, bacteriuria+, Urine cx- contaminated- mixed krzysztof -CT A/P 10/30- no pyelonephritis, notable for acute on chronic diverticulitis, and 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 Antibiotics: Zosyn (11/05 - 11/18) Linezolid (10/31 - 11/18) Unasyn (11/01 - 11/05)Augmentin (10/30 - 10/31) Augmentin 875-125mg BID (11/18-) Tedizolid 200mg daily (11/18-) - per CRS, no further plan for surgery this admission: plan to f/up in clinic - Contact precautions - 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 -replaced on 11/22 05/25 to crack Assessment & Plan (11/24/2024 11:39 PM CDT): 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 UA (10/30)- nitrite+, leuk esterase+, pyuria, bacteriuria+ Urine cx- contaminated- mixed krzysztof CT A/P 10/30- no pyelonephritis , notable for acute on chronic diverticulitis, and 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 Antibiotics: Zosyn (11/05 - 11/18) Linezolid (10/31 - 11/18) Unasyn (11/01 - 11/05) Augmentin (10/30 - 10/31) Augmentin 875-125mg BID (11/18-) Tedizolid 200mg daily (11/18-) f/u ID recs for antibiotic duration- switched back to PO abx - per CRS, no further plan for surgery this admission: plan to f/up in clinic - Contact precautions - 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 -replaced on 11/22 05/25 to crack Assessment & Plan (11/23/2024 8:59 PM CDT): 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 UA (10/30)- nitrite+, leuk esterase+, pyuria, bacteriuria+ Urine cx- contaminated- mixed krzysztof CT A/P 10/30- no pyelonephritis , notable for acute on chronic diverticulitis, and 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 Antibiotics: Zosyn (11/05 - 11/18) Linezolid (10/31 - 11/18) Unasyn (11/01 - 11/05) Augmentin (10/30 - 10/31) Augmentin 875-125mg BID (11/18-) Tedizolid 200mg daily (11/18-) - f/u ID recs for antibiotic duration- switched back to PO abx - per CRS, no further plan for surgery this admission: plan to f/up in clinic - Contact precautions - 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 -replaced on 11/22 05/25 to crack Assessment & Plan (11/22/2024 7:23 PM CDT): 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 UA (10/30)- nitrite+, leuk esterase+, pyuria, bacteriuria+ Urine cx- contaminated- mixed krzysztof CT A/P 10/30- no pyelonephritis , notable for acute on chronic diverticulitis, and 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 Antibiotics: Zosyn (11/05 - 11/18) Linezolid (10/31 - 11/18) Unasyn (11/01 - 11/05) Augmentin (10/30 - 10/31) Augmentin 875-125mg BID (11/18-) Tedizolid 200mg daily (11/18-) - f/u ID recs for antibiotic duration- switched back to PO abx - per CRS, no further plan for sx this admission - Contact precautions - 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 -replaced on 11/22 05/25 to crack Assessment & Plan (11/21/2024 3:52 PM CDT): 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 UA (10/30)- nitrite+, leuk esterase+, pyuria, bacteriuria+ Urine cx- contaminated- mixed krzysztof CT A/P 10/30- no pyelonephritis , notable for acute on chronic diverticulitis, and 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 Antibiotics: Zosyn (11/05 - 11/18) Linezolid (10/31 - 11/18) Unasyn (11/01 - 11/05) Augmentin (10/30 - 10/31) Augmentin 875-125mg BID (11/18-) Tedizolid 200mg daily (11/18-) - f/u ID recs for antibiotic duration- switched back to PO abx - per CRS, no further plan for sx this admission - Contact precautions - 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 Assessment & Plan (11/20/2024 3:42 PM CDT): 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 UA (10/30)- nitrite+, leuk esterase+, pyuria, bacteriuria+ Urine cx- contaminated- mixed krzysztof CT A/P 10/30- no pyelonephritis , notable for acute on chronic diverticulitis, and 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 Antibiotics: Zosyn (11/05 - 11/18) Linezolid (10/31 - 11/18) Unasyn (11/01 - 11/05) Augmentin (10/30 - 10/31) Augmentin 875-125mg BID (11/18-) Tedizolid 200mg daily (11/18-) - f/u ID recs for antibiotic duration- switched back to PO medications today - per CRS, no further plan for sx this admission - Contact precautions - Will try void trial when ready Assessment & Plan (11/18/2024 6:00 PM CDT): 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 UA (10/30)- nitrite+, leuk esterase+, pyuria, bacteriuria+ Urine cx- contaminated- mixed krzysztof CT A/P 10/30- no pyelonephritis , notable for acute on chronic diverticulitis, and 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 Admitted on 10/30 iso fever, N/V, increasing abdominal pain. Has been hospitalized 3x since June for similar issues. 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 09/14-09/29: presented for abdominal pain, CT showed sequela of colocolonic fistulae 2/2 complicated diverticulitis. 10/06-10/22 presented for n/v, CT showed acute on chronic diverticulitis with increased inflammation around bladder and sigmoid colon. Imaging this admission: CT abdomen (10/30) showed no new changes. No acute diverticulitis. Given that CRS (10/15) note mentioned that intervention would not be possible during a diverticulitis flare, GI consulted to bill. EGD/ [place] done on 11/03. EGD unremarkable, colonoscopy showed moderate diverticulosis, extrinsic colonic narrowing a/w diverticular opening (fistula not seen). Exam was otherwise normal. Okay to proceed with CRS surgery per GI. Work-up: -UA with 3+ leukocyte esterase, 4+ bacteria. Last urine culture 09/25 showed enterococcus faecium only susceptible to linezolid -CT bilateral femur: no abscess or osteoarthritis. -Urine cx contaminated -10/31 blood cx NGTD Abx: S/p Augmentin (10/30-10/21); Unasyn IV (11/01- 11/05); zosyn 4.5mg IV (11/05- present) + linezolid IV (was home med-present) Plan: - Planned for CRS interventions today sigmoidectomy + colovesicular fistula taken down with primary anastomosis to reduce significant morbidity anticipated with end colostomy vs emergent sigmoidectomy and end colostomy without option for reversal for an extended period of time and until significant weight loss achieved. > Patient will be transferred to CRS care post op. -ID following, recs appreciated -Pain regimen: tylenol 1 g tid scheduled, oxycodone, dilaudid. Also has home gabapentin, oxybutynin, topamax, robaxin continued. Pain management consulted, per their recommendation, adjusted robaxin and gabapentin dosage. Pain team had added amitriptyline which was discontinued on 11/07 for risk of serotonin syndrome w simultaneous use of escitalopram, amitriptyline and linezolid. -Continue TPN due to stool frequently blocking mcclelland during previous hospital stay. Clear liquid diet. -Mcclelland changed 10/30; if repeat UA/ UCx needed will need to be switched to obtain sample. - Increasing acidosis noted on labs as of 11/08, will hold sodium thiosulfate, sepsis workup unrevealing and pt continues to be stable at this time. Bicarb stable as well, will CTM and plan to resume sodium thiosulfate post-OP. 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 Admitted on 10/30 iso fever, N/V, increasing abdominal pain. Has been hospitalized 3x since June for similar issues. 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 09/14-09/29: presented for abdominal pain, CT showed sequela of colocolonic fistulae 2/2 complicated diverticulitis. 10/06-10/22 presented for n/v, CT showed acute on chronic diverticulitis with increased inflammation around bladder and sigmoid colon. Imaging this admission: CT abdomen (10/30) showed no new changes. No acute diverticulitis. Given that CRS (10/15) note mentioned that intervention would not be possible during a diverticulitis flare, GI consulted to bill. EGD/ [place] done on 11/03. EGD unremarkable, colonoscopy showed moderate diverticulosis, extrinsic colonic narrowing a/w diverticular opening (fistula not seen). Exam was otherwise normal. Okay to proceed with CRS surgery per GI. Potential CRS interventions: sigmoidectomy + colovesicular fistula taken down with primary anastomosis to reduce significant morbidity anticipated with end colostomy vs emergent sigmoidectomy and end colostomy without option for reversal for an extended period of time and until significant weight loss achieved. Since prior admit, pt has achieved ~100 lb weight loss. CRS re-engaged this admit. Work-up: -UA with 3+ leukocyte esterase, 4+ bacteria. Last urine culture 09/25 showed enterococcus faecium only susceptible to linezolid -CT bilateral femur: no abscess or osteoarthritis. -Urine cx contaminated -10/31 blood cx NGTD Abx: S/p Augmentin (10/30-10/21); Unasyn IV (11/01- 11/05); zosyn 4.5mg IV (11/05- present) + linezolid IV (was home med-present) Plan: -CRS planning for surgery on 11/11; NPO after MN on 11/11; will continue CLD and TPN until the night prior to sx. TPN can continue till the day of. Continue abx as above. Consulted inpatient anesthesia and wound ostomy for ostomy site marking per their request. PreOP abx ordered by CRS. -ID following, recs appreciated -Pain regimen: tylenol 1 g tid scheduled, oxycodone, dilaudid. Also has home gabapentin, oxybutynin, topamax, robaxin continued. Pain management consulted, per their recommendation, adjusted robaxin and gabapentin dosage. Pain team had added amitriptyline which was discontinued on 11/07 for risk of serotonin syndrome w simultaneous use of escitalopram, amitriptyline and linezolid. -Continue TPN due to stool frequently blocking mcclelland during previous hospital stay. Clear liquid diet. -Mcclelland changed 10/30; if repeat UA/ UCx needed will need to be switched to obtain sample. - Increasing acidosis noted on labs as of 11/08, will hold sodium thiosulfate, sepsis workup unrevealing and pt continues to be stable at this time. Bicarb stable as well, will CTM and plan to resume sodium thiosulfate post-OP. 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 Admitted on 10/30 iso fever, N/V, increasing abdominal pain. Has been hospitalized 3x since June for similar issues. 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 09/14-09/29: presented for abdominal pain, CT showed sequela of colocolonic fistulae 2/2 complicated diverticulitis. 10/06-10/22 presented for n/v, CT showed acute on chronic diverticulitis with increased inflammation around bladder and sigmoid colon. Imaging this admission: CT abdomen (10/30) showed no new changes. No acute diverticulitis. Given that CRS (10/15) note mentioned that intervention would not be possible during a diverticulitis flare, GI consulted to bill. EGD/ [place] done on 11/03. EGD unremarkable, colonoscopy showed moderate diverticulosis, extrinsic colonic narrowing a/w diverticular opening (fistula not seen). Exam was otherwise normal. Okay to proceed with CRS surgery per GI. Potential CRS interventions: sigmoidectomy + colovesicular fistula taken down with primary anastomosis to reduce significant morbidity anticipated with end colostomy vs emergent sigmoidectomy and end colostomy without option for reversal for an extended period of time and until significant weight loss achieved. Since prior admit, pt has achieved ~100 lb weight loss. CRS re-engaged this admit. Work-up: -UA with 3+ leukocyte esterase, 4+ bacteria. Last urine culture 09/25 showed enterococcus faecium only susceptible to linezolid -CT bilateral femur: no abscess or osteoarthritis. -Urine cx contaminated -10/31 blood cx NGTD Abx: S/p Augmentin (10/30-10/21); Unasyn IV (11/01- 11/05); zosyn 4.5mg IV (11/05- present) + linezolid IV (was home med-present) Plan: -CRS planning for surgery on 11/11; NPO after MN on 11/11; will continue CLD and TPN until the night prior to sx. Continue abx as above. Consulted inpatient anesthesia and wound ostomy for ostomy site marking per their request. PreOP abx ordered by CRS. -ID following, recs appreciated -Pain regimen: tylenol 1 g tid scheduled, oxycodone, dilaudid. Also has home gabapentin, oxybutynin, topamax, robaxin continued. Pain management consulted, per their recommendation, adjusted robaxin and gabapentin dosage. Pain team had added amitriptyline which was discontinued on 11/07 for risk of serotonin syndrome w simultaneous use of escitalopram, amitriptyline and linezolid. -Continue TPN due to stool frequently blocking mcclelland during previous hospital stay. Clear liquid diet. -Mcclelland changed 10/30; if repeat UA/ UCx needed will need to be switched to obtain sample. - Increasing acidosis noted on labs as of 11/08, will hold sodium thiosulfate, sepsis workup unrevealing and pt continues to be stable at this time. Bicarb stable as well, will CTM and plan to resume sodium thiosulfate post-OP. 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 Admitted on 10/30 iso fever, N/V, increasing abdominal pain. Has been hospitalized 3x since June for similar issues. 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 09/14-09/29: presented for abdominal pain, CT showed sequela of colocolonic fistulae 2/2 complicated diverticulitis. 10/06-10/22 presented for n/v, CT showed acute on chronic diverticulitis with increased inflammation around bladder and sigmoid colon. Imaging this admission: CT abdomen (10/30) showed no new changes. No acute diverticulitis. Given that CRS (10/15) note mentioned that intervention would not be possible during a diverticulitis flare, GI consulted to bill. EGD/ [place] done on 11/03. EGD unremarkable, colonoscopy showed moderate diverticulosis, extrinsic colonic narrowing a/w diverticular opening (fistula not seen). Exam was otherwise normal. Okay to proceed with CRS surgery per GI. Potential CRS interventions: sigmoidectomy + colovesicular fistula taken down with primary anastomosis to reduce significant morbidity anticipated with end colostomy vs emergent sigmoidectomy and end colostomy without option for reversal for an extended period of time and until significant weight loss achieved. Since prior admit, pt has achieved ~100 lb weight loss. CRS re-engaged this admit. Work-up: -UA with 3+ leukocyte esterase, 4+ bacteria. Last urine culture 09/25 showed enterococcus faecium only susceptible to linezolid -CT bilateral femur: no abscess or osteoarthritis. -Urine cx contaminated -10/31 blood cx NGTD Abx: S/p Augmentin (10/30-10/21); Unasyn IV (11/01- 11/05); zosyn 4.5mg IV (11/05- present) + linezolid IV (was home med-present) Plan: -CRS planning for surgery on 11/11; NPO after MN on 11/11; will continue CLD and TPN until the night prior to sx. Continue abx as above. Consulted inpatient anesthesia and wound ostomy for ostomy site marking per their request. -ID following, recs appreciated -Pain regimen: tylenol 1 g tid scheduled, oxycodone, dilaudid. Also has home gabapentin, oxybutynin, topamax, robaxin continued. Pain management consulted, per their recommendation, adjusted robaxin and gabapentin dosage. Pain team had added amitriptyline which was discontinued on 11/07 for risk of serotonin syndrome w simultaneous use of escitalopram, amitriptyline and linezolid. -Continue TPN due to stool frequently blocking mcclelland during previous hospital stay. Clear liquid diet. -Mcclelland changed 10/30; if repeat UA/ UCx needed will need to be switched to obtain sample. - Increasing acidosis noted on labs as of 11/08, will discontinue sodium thiosulfate and pursue sepsis workup including BCx and RUQ US. 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 Admitted on 10/30 iso fever, N/V, increasing abdominal pain. Has been hospitalized 3x since June for similar issues. 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 09/14-09/29: presented for abdominal pain, CT showed sequela of colocolonic fistulae 2/2 complicated diverticulitis. 10/06-10/22 presented for n/v, CT showed acute on chronic diverticulitis with increased inflammation around bladder and sigmoid colon. Imaging this admission: CT abdomen (10/30) showed no new changes. No acute diverticulitis. Given that CRS (10/15) note mentioned that intervention would not be possible during a diverticulitis flare, GI consulted to bill. EGD/ [place] done on 11/03. EGD unremarkable, colonoscopy showed moderate diverticulosis, extrinsic colonic narrowing a/w diverticular opening (fistula not seen). Exam was otherwise normal. Okay to proceed with CRS surgery per GI. Potential CRS interventions: sigmoidectomy + colovesicular fistula taken down with primary anastomosis to reduce significant morbidity anticipated with end colostomy vs emergent sigmoidectomy and end colostomy without option for reversal for an extended period of time and until significant weight loss achieved. Since prior admit, pt has achieved ~100 lb weight loss. CRS re-engaged this admit. Work-up: -UA with 3+ leukocyte esterase, 4+ bacteria. Last urine culture 09/25 showed enterococcus faecium only susceptible to linezolid -CT bilateral femur: no abscess or osteoarthritis. -Urine cx contaminated -10/31 blood cx NGTD Abx: S/p Augmentin (10/30-10/21); Unasyn IV (11/01- 11/05); zosyn 4.5mg IV (11/05- present) + linezolid IV (was home med-present) Plan: -CRS planning for surgery on 11/11; NPO after MN on 11/11; will continue CLD and TPN until the night prior to sx. Continue abx as above. Consulted inpatient anesthesia and wound ostomy for ostomy site marking per their request. -ID following, recs appreciated -Pain regimen: tylenol 1 g tid scheduled, oxycodone, dilaudid. Also has home gabapentin, oxybutynin, topamax, robaxin continued. Pain management consulted, per their recommendation, adjusted robaxin and gabapentin dosage. Pain team had added amitriptyline which was discontinued on 11/07 for risk of serotonin syndrome w simultaneous use of escitalopram, amitriptyline and linezolid. -Continue TPN due to stool frequently blocking mcclelland during previous hospital stay. Clear liquid diet. -Mcclelland changed 10/30; if repeat UA/ UCx needed will need to be switched to obtain sample. 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 Admitted on 10/30 iso fever, N/V, increasing abdominal pain. Has been hospitalized 3x since June for similar issues. 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 09/14-09/29: presented for abdominal pain, CT showed sequela of colocolonic fistulae 2/2 complicated diverticulitis. 10/06-10/22 presented for n/v, CT showed acute on chronic diverticulitis with increased inflammation around bladder and sigmoid colon. Imaging this admission: CT abdomen (10/30) showed no new changes. No acute diverticulitis. Given that CRS (10/15) note mentioned that intervention would not be possible during a diverticulitis flare, GI consulted to bill. EGD/ [place] done on 11/03. EGD unremarkable, colonoscopy showed moderate diverticulosis, extrinsic colonic narrowing a/w diverticular opening (fistula not seen). Exam was otherwise normal. Okay to proceed with CRS surgery per GI. Potential CRS interventions: sigmoidectomy + colovesicular fistula taken down with primary anastomosis to reduce significant morbidity anticipated with end colostomy vs emergent sigmoidectomy and end colostomy without option for reversal for an extended period of time and until significant weight loss achieved. Since prior admit, pt has achieved ~100 lb weight loss. CRS re-engaged this admit. Work-up: -UA with 3+ leukocyte esterase, 4+ bacteria. Last urine culture 09/25 showed enterococcus faecium only susceptible to linezolid -CT bilateral femur: no abscess or osteoarthritis. -Urine cx contaminated -10/31 blood cx NGTD Abx: S/p Augmentin (10/30-10/21); Unasyn IV (11/01- 11/05); zosyn 4.5mg IV (11/05- present) + linezolid IV (was home med-present) Plan: -CRS planning for surgery on 11/11; NPO after MN on 11/11; will continue CLD and TPN until the night prior to sx. Continue abx as above. Consulted inpatient anesthesia and wound ostomy for ostomy site marking per their request. -ID following, recs appreciated -Pain regimen: tylenol 1 g tid scheduled, oxycodone, dilaudid. Also has home gabapentin, oxybutynin, topamax, robaxin continued. Pain management consulted today, appreciate reccs. -Continue TPN due to stool frequently blocking mcclelland during previous hospital stay. Clear liquid diet. -Mcclelland changed 7/10; if repeat UA/ UCx needed will need to be switched to obtain sample. Assessment & Plan (11/05/2024 12:36 PM CDT): Nina Macias is a 44 y.o. 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 She was re-admitted 10/31 with recurrent fever, nausea, and vomiting with LLQ abdominal pain. CT imaging continued to demonstrate acute on chronic sequela of diverticulitis similar to prior exams. She was continued on amoxicillin-clavulanate and tedizolid was switched to linezolid (10/30-). GI was consulted and are planning on colonoscopy to evaluate her diverticulitis. CRS was consulted and are considering surgical intervention. ID was consulted for antibiotic management. She is at high risk for sepsis given her intra-abdominal disease. She has continued to have fevers despite suppressive antibiotics. This could be partially due to the inability to tolerate oral intake and vomiting up her antibiotics at home in addition. Would recommend switching to IV antibiotics while awaiting surgical intervention. Blood cultures are no growth to date, and urine culture suggests contamination from stool krzysztof, as is expected. Colonoscopy and EGD 11/03 overall unremarkable exams. GI signed off. CRS planning procedure 11/11. Recommendations: -Switch antimicrobials to piperacillin-tazobactam 4.5 g IV q.6 hours for better coverage of potential drug resistant gram negatives -Discontinue ampicillin-sulbactam -Continue linezolid 600 mg Q12H IV. Would monitor for serotonin syndrome given escitalopram and now the addition of amitriptyline, but low concern for risk of this at this time. -Monitor CBC and CMP on the above IV antibiotics. -Appreciate GI and CRS evaluations -CRS planning surgery on 11/11 -Would consider stopping all antimicrobials 24-48 hours after surgical procedure Assessment & Plan (11/05/2024 11:05 AM CDT): Etiology: Recurrent UTIs 2/2 colovesical fistula suspected 2/2 recurrent diverticulitis. Admitted on 10/30 iso fever, N/V, increasing abdominal pain. Has been hospitalized 3x since June for similar issues. 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 09/14-09/29: presented for abdominal pain, CT showed sequela of colocolonic fistulae 2/2 complicated diverticulitis. 10/06-10/22 presented for n/v, CT showed acute on chronic diverticulitis with increased inflammation around bladder and sigmoid colon. Imaging this admission: CT abdomen (10/30) showed no new changes. No acute diverticulitis. Given that CRS (10/15) note mentioned that intervention would not be possible during a diverticulitis flare, GI consulted to bill. EGD/ [place] done on 11/03. EGD unremarkable, colonoscopy showed moderate diverticulosis, extrinsic colonic narrowing a/w diverticular opening (fistula not seen). Exam was otherwise normal. Okay to proceed with CRS surgery per GI. Potential CRS interventions: sigmoidectomy + colovesicular fistula taken down with primary anastomosis to reduce significant morbidity anticipated with end colostomy vs emergent sigmoidectomy and end colostomy without option for reversal for an extended period of time and until significant weight loss achieved. Since prior admit, pt has achieved ~100 lb weight loss. CRS re-engaged this admit. Work-up: -UA with 3+ leukocyte esterase, 4+ bacteria. Last urine culture 09/25 showed enterococcus faecium only susceptible to linezolid -CT bilateral femur: no abscess or osteoarthritis. -Urine cx contaminated -10/31 blood cx NGTD Abx: S/p Augmentin (10/30-10/21); Unasyn IV (11/01-present) + linezolid IV (was home med-present) Plan: -CRS planning for surgery on 11/11; NPO after MN on 11/11; will continue CLD and TPN until the night prior to sx. Continue abx as above. Consulted inpatient anesthesia and wound ostomy for ostomy site marking per their request. -ID following, recs appreciated -Pain regimen: tylenol 1 g tid scheduled, oxycodone, dilaudid. Also has home gabapentin, oxybutynin, topamax, robaxin continued. Pain management consulted today, appreciate reccs. -Continue TPN due to stool frequently blocking mcclelland during previous hospital stay. Clear liquid diet -Mcclelland changed 10/30; if repeat UA/ UCx needed will need to be switched to obtain sample. 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 Admitted on 10/30 iso fever, N/V, increasing abdominal pain. Has been hospitalized 3x since June for similar issues. 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 09/14-09/29: presented for abdominal pain, CT showed sequela of colocolonic fistulae 2/2 complicated diverticulitis. 10/06-10/22 presented for n/v, CT showed acute on chronic diverticulitis with increased inflammation around bladder and sigmoid colon. Imaging this admission: CT abdomen (10/30) showed no new changes. No acute diverticulitis. Given that CRS (10/15) note mentioned that intervention would not be possible during a diverticulitis flare, GI consulted to bill. EGD/ [place] done on 11/03. EGD unremarkable, colonoscopy showed moderate diverticulosis, extrinsic colonic narrowing a/w diverticular opening (fistula not seen). Exam was otherwise normal. Okay to proceed with CRS surgery per GI. Potential CRS interventions: sigmoidectomy + colovesicular fistula taken down with primary anastomosis to reduce significant morbidity anticipated with end colostomy vs emergent sigmoidectomy and end colostomy without option for reversal for an extended period of time and until significant weight loss achieved. Since prior admit, pt has achieved ~100 lb weight loss. CRS re-engaged this admit. Work-up: -UA with 3+ leukocyte esterase, 4+ bacteria. Last urine culture 09/25 showed enterococcus faecium only susceptible to linezolid -CT bilateral femur: no abscess or osteoarthritis. -Urine cx contaminated -10/31 blood cx NGTD Abx: S/p Augmentin (10/30-10/21); Unasyn IV (11/01-present) + linezolid IV (was home med-present) Plan: -CRS planning for surgery on 11/11; NPO after MN on 11/11; will continue CLD and TPN until the night prior to sx. Continue abx as above. -ID following, recs appreciated -Pain regimen: tylenol 1 g tid scheduled, oxycodone, dilaudid. Also has home gabapentin, oxybutynin, topamax, robaxin continued. Pain management consulted today, appreciate reccs. -Continue TPN due to stool frequently blocking mcclelland during previous hospital stay. Clear liquid diet -Mcclelland changed 10/30; if repeat UA/ UCx needed will need to be switched to obtain sample. Assessment & Plan (11/03/2024 12:53 PM CDT): Nina Macias is a 44 y.o. 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 She was re-admitted 10/31 with recurrent fever, nausea, and vomiting with LLQ abdominal pain. CT imaging continued to demonstrate acute on chronic sequela of diverticulitis similar to prior exams. She was continued on amoxicillin-clavulanate and tedizolid was switched to linezolid (10/30-). GI was consulted and are planning on colonoscopy to evaluate her diverticulitis. CRS was consulted and are considering surgical intervention. ID was consulted for antibiotic management. She is at high risk for sepsis given her intra-abdominal disease. She has continued to have fevers despite suppressive antibiotics. This could be partially due to the inability to tolerate oral intake and vomiting up her antibiotics at home in addition. Would recommend switching to IV antibiotics while awaiting surgical intervention. Blood cultures are no growth to date, and urine culture suggests contamination from stool krzysztof, as is expected. Recommendations: -Continue ampicillin-sulbactam 3G Q6H. -Continue linezolid 600 mg Q12H IV. Would monitor for serotonin syndrome given escitalopram, but low concern for risk of this at this time. -Monitor CBC and CMP on the above IV antibiotics. -Appreciate GI and CRS evaluations. Plan is for EGD and colonoscopy today with CRS evaluation following. Assessment & Plan (11/03/2024 5:48 PM CDT): Presented with isolated fever, n/v at home along with increased pain in abdomen. Patient was hospitalized 3 times since June for similar issues. 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 09/14-09/29: presented for abdominal pain, CT showed sequela of colocolonic fistulae 2/2 complicated diverticulitis. 10/06-10/22 presented for n/v, CT showed acute on chronic diverticulitis with increased inflammation around bladder and sigmoid colon. This admission repeat CT did not show new findings but her symptoms are likely still associated with her ongoing GI/ issues. Per CRS note 10/15 from previous admission, patient has 2 options, one is sigmoidectomy + colovesicular fistula taken down with primary anastomosis to reduce significant morbidity anticipated with end colostomy. This option would not be feasible in the setting of acute diverticulitis flare. Alternative emergent operation would be sigmoidectomy and end colostomy without option for reversal for an extended period of time and until significant weight loss achieved. CT did not show new imaging evidence of diverticulitis flare, and patient has achieved significant weight loss, re-engaged CRS for continued discussion about surgical options. Work-up: -UA with 3+ leukocyte esterase, 4+ bacteria. Last urine culture 09/25 showed enterococcus faecium only susceptible to linezolid -CT C/A/P: Unchanged tethering of the sigmoid colon to the uterine fundus as well as the urinary bladder. 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 Unchanged findings of acute on chronic diverticulitis in the pelvis. -CT bilateral femur: no abscess or osteoarthritis. -Urine cx contaminated -10/31 blood cx NGTD -11/03 EGD: normal -11/03 colonoscopy: extrinsic stenosis of sigmoid colon, diverticulosis, diverticular opening, unable to view cecal area due to narrowing, otherwise normal colon. Recommended repeat colonoscopy after surgery for diverticular disease screening (given unable to clear cecal base of small polyps). Per GI, ok to proceed w/ colovesical fistula surgery. Antibiotics: -S/p Augmentin 10/30-10/31 -Continue Unasyn IV (11/01-present) + linezolid IV (was home med-present) Plan: -Colorectal surgery consulted. Will follow with plan for surgery to fix colovesicular fistula now pt is s/p colonoscopy for diverticulitis. -ID following, recs appreciated -Pain regimen: tylenol 1 g tid scheduled, oxycodone, dilaudid. Also has home gabapentin, oxybutynin, topamax, robaxin continued -Continue TPN due to stool frequently blocking mcclelland during previous hospital stay. Clear liquid diet -Mcclelland changed 10/30 Assessment & Plan (11/02/2024 4:17 PM CDT): Nina Macias is a 44 y.o. 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 She was re-admitted 10/31 with recurrent fever, nausea, and vomiting with LLQ abdominal pain. CT imaging continued to demonstrate acute on chronic sequela of diverticulitis similar to prior exams. She was continued on amoxicillin-clavulanate and tedizolid was switched to linezolid (10/30-). GI was consulted and are planning on colonoscopy to evaluate her diverticulitis. CRS was consulted and are considering surgical intervention. ID was consulted for antibiotic management. She is at high risk for sepsis given her intra-abdominal disease. She has continued to have fevers despite suppressive antibiotics. This could be partially due to the inability to tolerate oral intake and vomiting up her antibiotics at home in addition. Would recommend switching to IV antibiotics while awaiting surgical intervention. Blood cultures are no growth to date, and urine culture suggests contamination from stool krzysztof, as is expected. Recommendations: -Continue ampicillin-sulbactam 3G Q6H. -Continue linezolid 600 mg Q12H IV. Would monitor for serotonin syndrome given escitalopram, but low concern for risk of this at this time. -Monitor CBC and CMP on the above IV antibiotics. -Appreciate GI and CRS evaluations. GI tentatively planning EGD and colonoscopy on Sunday. Assessment & Plan (11/02/2024 12:58 PM CDT): Presented with isolated fever, n/v at home along with increased pain in abdomen. Patient was hospitalized 3 times since June for similar issues. 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 09/14-09/29: presented for abdominal pain, CT showed sequela of colocolonic fistulae 2/2 complicated diverticulitis. 10/06-10/22 presented for n/v, CT showed acute on chronic diverticulitis with increased inflammation around bladder and sigmoid colon. This admission repeat CT did not show new findings but her symptoms are likely still associated with her ongoing GI/ issues. Per CRS note 10/15 from previous admission, patient has 2 options, one is sigmoidectomy + colovesicular fistula taken down with primary anastomosis to reduce significant morbidity anticipated with end colostomy. This option would not be feasible in the setting of acute diverticulitis flare. Alternative emergent operation would be sigmoidectomy and end colostomy without option for reversal for an extended period of time and until significant weight loss achieved. Now given that it has been 3 weeks since patient's last encounter with CRS and CT did not show new imaging evidence of diverticulitis flare, and patient has achieved significant weight loss, would re-engage CRS for continued discussion about surgical options. Work-up: -UA with 3+ leukocyte esterase, 4+ bacteria. Last urine culture 09/25 showed enterococcus faecium only susceptible to linezolid -CT C/A/P: Unchanged tethering of the sigmoid colon to the uterine fundus as well as the urinary bladder. 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 Unchanged findings of acute on chronic diverticulitis in the pelvis. -CT bilateral femur: no abscess or osteoarthritis. -Urine cx contaminated -10/31 blood cx NGTD Antibiotics: -S/p Augmentin 10/30-10/31 Plan: -Declined RVP -Started Unasyn IV (11/01-) + linezolid IV (was on prior to admission-present) -Colorectal surgery consulted. Recommended GI consult for scope given recent diverticulitis. They will consider possible inpatient versus outpatient surgery -ID following, recs appreciated -GI following, plan for EGD and colonoscopy Sunday. NPO Sunday night -Pain regimen: tylenol 1 g tid scheduled, oxycodone, dilaudid. Also has home gabapentin, oxybutynin, topamax, robaxin continued -Continue TPN due to stool frequently blocking mcclelland during previous hospital stay. Clear liquid diet Assessment & Plan (11/01/2024 5:23 PM CDT): Nina Macias is a 44 y.o. 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 She was re-admitted 10/31 with recurrent fever, nausea, and vomiting with LLQ abdominal pain. CT imaging continued to demonstrate acute on chronic sequela of diverticulitis similar to prior exams. She was continued on amoxicillin-clavulanate and tedizolid was switched to linezolid (10/30-). GI was consulted and are planning on colonoscopy to evaluate her diverticulitis. CRS was consulted and are considering surgical intervention. ID was consulted for antibiotic management. She is at high risk for sepsis given her intra-abdominal disease. She has continued to have fevers despite suppressive antibiotics. This could be partially due to the inability to tolerate oral intake and vomiting up her antibiotics at home in addition. Would recommend switching to IV antibiotics while awaiting surgical intervention. Blood cultures are no growth to date, and urine culture suggests contamination from stool krzysztof, as is expected. Recommendations: - Stop amoxicillin-clavualate and switch to renally dosed ampicillin-sulbactam 3G Q6H. - Continue linezolid 600 mg Q12H IV. Would monitor for serotonin syndrome given escitalopram, but low concern for risk of this at this time. - Monitor CBC and CMP on the above IV antibiotics. - Appreciate GI and CRS evaluations. Assessment & Plan (11/01/2024 11:36 AM CDT): Presented with isolated fever, n/v at home along with increased pain in abdomen. Patient was hospitalized 3 times since June for similar issues. 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 09/14-09/29: presented for abdominal pain, CT showed sequela of colocolonic fistulae 2/2 complicated diverticulitis. 10/06-10/22 presented for n/v, CT showed acute on chronic diverticulitis with increased inflammation around bladder and sigmoid colon. This admission repeat CT did not show new findings but her symptoms are likely still associated with her ongoing GI/ issues. Per CRS note 10/15 from previous admission, patient has 2 options, one is sigmoidectomy + colovesicular fistula taken down with primary anastomosis to reduce significant morbidity anticipated with end colostomy. This option would not be feasible in the setting of acute diverticulitis flare. Alternative emergent operation would be sigmoidectomy and end colostomy without option for reversal for an extended period of time and until significant weight loss achieved. Now given that it has been 3 weeks since patient's last encounter with CRS and CT did not show new imaging evidence of diverticulitis flare, and patient has achieved significant weight loss, would re-engage CRS for continued discussion about surgical options. Work-up: -UA with 3+ leukocyte esterase, 4+ bacteria. Last urine culture 09/25 showed enterococcus faecium only susceptible to linezolid -CT C/A/P: Unchanged tethering of the sigmoid colon to the uterine fundus as well as the urinary bladder. 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 Unchanged findings of acute on chronic diverticulitis in the pelvis. -CT bilateral femur: no abscess or osteoarthritis. -Urine cx contaminated -10/31 blood cx NGTD Plan: -Declined RVP -Continue Augmentin + linezolid (on tedizolid at home) -Colorectal surgery consulted. Recommended GI consult for scope given recent diverticulitis. They will consider possible inpatient versus outpatient surgery -C/s ID given fever while on abx -C/s GI -Pain regimen: tylenol 1 g tid scheduled, oxycodone, dilaudid. Also has home gabapentin, oxybutynin, topamax, robaxin continued -Continue TPN due to stool frequently blocking mcclelland during previous hospital stay. Clear liquid diet Assessment & Plan (10/31/2024 5:01 PM CDT): Presented with isolated fever, n/v at home along with increased pain in abdomen. Patient was hospitalized 3 times since June for similar issues. 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 09/14-09/29: presented for abdominal pain, CT showed sequela of colocolonic fistulae 2/2 complicated diverticulitis. 10/06-10/22 presented for n/v, CT showed acute on chronic diverticulitis with increased inflammation around bladder and sigmoid colon. This admission repeat CT did not show new findings but her symptoms are likely still associated with her ongoing GI/ issues. Per CRS note 10/15 from previous admission, patient has 2 options, one is sigmoidectomy + colovesicular fistula taken down with primary anastomosis to reduce significant morbidity anticipated with end colostomy. This option would not be feasible in the setting of acute diverticulitis flare. Alternative emergent operation would be sigmoidectomy and end colostomy without option for reversal for an extended period of time and until significant weight loss achieved. Now given that it has been 3 weeks since patient's last encounter with CRS and CT did not show new imaging evidence of diverticulitis flare, and patient has achieved significant weight loss, would re-engage CRS for continued discussion about surgical options. Work-up: -UA with 3+ leukocyte esterase, 4+ bacteria. Last urine culture 09/25 showed enterococcus faecium only susceptible to linezolid -CT C/A/P: Unchanged tethering of the sigmoid colon to the uterine fundus as well as the urinary bladder. 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 -CT bilateral femur: no abscess or osteoarthritis. Plan: -Follow UCx and BCx. -Declined RVP -Continue Augmentin + linezolid (on tedizolid at home) -Colorectal surgery consulted. Recommended GI consult for scope given recent diverticulitis. They will consider possible inpatient versus outpatient surgery -C/s ID in AM -C/s GI in AM -Pain regimen: tylenol 1 g tid scheduled, oxycodone, dilaudid. Also has home gabapentin, oxybutynin, topamax, robaxin continued -Continue TPN due to stool frequently blocking [place]le[place] during previous hospital stay. Clear liquid diet Assessment & Plan (10/31/2024 2:56 AM CDT): Presented with isolated fever, n/v at home along with increased pain in abdomen. Patient was hospitalized 3 times since June for similar issues. 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 09/14-09/29: presented for abdominal pain, CT showed sequela of colocolonic fistulae 2/2 complicated diverticulitis. 10/06-10/22 presented for n/v, CT showed acute on chronic diverticulitis with increased inflammation around bladder and sigmoid colon. This admission repeat CT did not show new findings but her symptoms are likely still associated with her ongoing GI/ issues. Per CRS note 10/15 from previous admission, patient has 2 options, one is sigmoidectomy + colovesicular fistula taken down with primary anastomosis to reduce significant morbidity anticipated with end colostomy. This option would not be feasible in the setting of acute diverticulitis flare. Alternative emergent operation would be sigmoidectomy and end colostomy without option for reversal for an extended period of time and until significant weight loss achieved. Now given that it has been 3 weeks since patient's last encounter with CRS and CT did not show new imaging evidence of diverticulitis flare, and patient has achieved significant weight loss, would re-engage CRS for continued discussion about surgical options. Work-up: -UA with 3+ leukocyte esterase, 4+ bacteria. Last urine culture 09/25 showed enterococcus faecium only susceptible to linezolid -CT C/A/P: Unchanged tethering of the sigmoid colon to the uterine fundus as well as the urinary bladder. 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 -CT bilateral femur: no abscess or osteoarthritis. Plan: -Await UCx and BCx. Check RVP since patient also mentioned sore throat lately -Continue Augmentin + linezolid (on tedizolid at home) -CRS and ID consult in the AM -Pain regimen: tylenol 1 g tid scheduled, oxycodone, dilaudid. Also has home gabapentin, oxybutynin, topamax, robaxin continued -Continue TPN due to stool frequently blocking [place] during previous hospital stay Painful thigh rash 10/31/2024 Assessment & Plan (11/11/2024 3:08 PM CDT): Painful rash over bilateral thigh. 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 Started rx w sodium thiosulfate but held on 11/06 iso bicarb drop. Will CTM. Plan - Continue betadine daily per surgery recs - Had ordered sodium thiosulfate 25g IV 3 times per week held iso bicarb drop noted on 11/06. 2nd lower dose given on 11/07 then discontinued iso acidosis as above. Will resume postOP. - Discussed starting pentoxifylline w CRS, they are okay with initiating the medication, started on 11/09. Assessment & Plan (11/10/2024 7:55 AM CDT): Painful rash over bilateral thigh. 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 Started rx w sodium thiosulfate but held on 11/06 iso bicarb drop. Will CTM. Plan - Continue betadine daily per surgery recs - Had ordered sodium thiosulfate 25g IV 3 times per week held iso bicarb drop noted on 11/06. 2nd lower dose given on 11/07 then discontinued iso acidosis as above. Will resume postOP. - Discussed starting pentoxifylline w CRS, they are okay with initiating the medication, started on 11/09. Assessment & Plan (11/09/2024 3:12 PM CDT): Painful rash over bilateral thigh. 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 Started rx w sodium thiosulfate but held on 11/06 iso bicarb drop. Will CTM. Plan - Continue betadine daily per surgery recs - Had ordered sodium thiosulfate 25g IV 3 times per week held iso bicarb drop noted on 11/06. 2nd lower dose given on 11/07 then discontinued iso acidosis as above. Will resume postOP. - Discussed starting pentoxifylline w CRS, they are okay with initiating the medication, started on 11/09. Assessment & Plan (11/08/2024 2:49 PM CDT): Painful rash over bilateral thigh. 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 Started rx w sodium thiosulfate but held on 11/06 iso bicarb drop. Will CTM. Plan - Continue betadine daily per surgery recs - Had ordered sodium thiosulfate 25g IV 3 times per week held iso bicarb drop noted on 11/06. 2nd lower dose given on 11/07 then discontinued iso acidosis as above. - Discussed starting pentoxifylline w CRS, they are okay with initiating the medication, but will hold off until new acidosis evaluated to avoid confounding clinical picture with new med introduction. Assessment & Plan (11/07/2024 1:40 PM CDT): Painful rash over bilateral thigh. 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 Started rx w sodium thiosulfate but held on 11/06 iso bicarb drop. Will CTM. Plan - Continue betadine daily per surgery recs - Had ordered sodium thiosulfate 25g IV 3 times per week held iso bicarb drop noted on 11/06. If alternative etiology found, will resume. - Discussed starting pentoxifylline w CRS, they recommended avoiding meds w potential platelet aggregation inhibiting properties until postOP. Assessment & Plan (11/06/2024 1:57 PM CDT): Painful rash over bilateral thigh. 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 Started rx w sodium thiosulfate but held on 11/06 iso bicarb drop. Will CTM. Plan - Continue betadine daily per surgery recs, x7 days - Continue sodium thiosulfate 25g IV 3 times per week held iso bicarb drop noted on 11/06. If normalized on 11/07 or alternative etiology found, will resume. Assessment & Plan (11/05/2024 7:22 AM CDT): Painful rash over bilateral thigh. Etiology: Suspect 2/2 rapid subcutaneous fat loss vs possible calciphylaxis lesions? -CT b/l femurs w contrast - severe sarcopenia of b/l thighs -11/03: B/l LE venous duplex negative dvt - Derm consulted, s/p 11/04 biopsy. Started rx w sodium thiosulfate as above. Plan - Continue betadine daily per surgery recs, x7 days - Continue sodium thiosulfate 25g IV 3 times per week Assessment & Plan (11/04/2024 5:53 PM CDT): Painful rash over bilateral thigh. Etiology: Suspect 2/2 rapid subcutaneous fat loss vs possible calciphylaxis lesions? -CT b/l femurs w contrast - severe sarcopenia of b/l thighs -11/03: B/l LE venous duplex negative dvt - Derm consulted, s/p 11/04 biopsy. Started rx w sodium thiosulfate as above. Plan - Continue betadine daily per surgery recs, x7 days - Continue sodium thiosulfate 25g IV 3 times per week Assessment & Plan (11/03/2024 5:45 PM CDT): Painful bruises at bilateral thigh. Suspect related to rapid subcutaneous fat loss. 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 -CT b/l femurs w contrast - severe sarcopenia of b/l thighs -11/03: B/l LE venous duplex negative dvt -dermatology consulted, plan for biopsy. 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 Suspect related to rapid subcutaneous fat loss. 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 -CT b/l femurs w contrast - severe sarcopenia of b/l thighs Plan -Obtain b/l venous duplex -start betadine daily per surgery recs, x7 days -c/s derm in AM Assessment & Plan (11/01/2024 8:08 AM CDT): Painful bruises at bilateral thigh. Suspect related to rapid subcutaneous fat loss. -CT b/l femurs w contrast - severe sarcopenia of b/l thighs -RD following -Pain control Assessment & Plan (10/31/2024 5:01 PM CDT): Painful bruises at bilateral thigh. Suspect related to rapid subcutaneous fat loss. -CT b/l femurs w contrast - severe sarcopenia of b/l thighs -RD following -Pain control Assessment & Plan (10/31/2024 6:24 AM CDT): Painful bruises at bilateral thigh. Suspect related to rapid subcutaneous fat loss. -RD following -Pain control Severe protein-calorie malnutrition 10/09/2024 Assessment & Plan (03/03/2025 7:32 AM CHEF): Pt endorses a >200 lb weight loss since 06/2024, related to multiple hospitalizations and ICU stays. She is happy with her weight loss, but feels very low appetite and has mobility issues 2/2 recent surgery and pain. High c/f protein calorie malnutrition. Plan: - RD consult - SW consult for concerns of food access - thiamine, folate supplementation - Calorie counts - Ensure supplements with meals and bedtime - Patient will not consider IPR or other rehab options outside of the home Assessment & Plan (03/02/2025 6:13 PM CHEF): Pt endorses a >200 lb weight loss since 06/2024, related to multiple hospitalizations and ICU stays. She is happy with her weight loss, but feels very low appetite and has mobility issues 2/2 recent surgery and pain. High c/f protein calorie malnutrition. Plan: - RD consult - SW consult for concerns of food access - thiamine, folate supplementation - Calorie counts - Ensure supplements with meals and bedtime - Patient will not consider IPR or other rehab options outside of the home Assessment & Plan (03/01/2025 6:18 AM CHEF): Pt endorses a >200 lb weight loss since 06/2024, related to multiple hospitalizations and ICU stays. She is happy with her weight loss, but feels very low appetite and has mobility issues 2/2 recent surgery and pain. High c/f protein calorie malnutrition. Plan: - RD consult - SW consult for concerns of food access - thiamine, folate - Calorie counts - Ensure supplements with meals and bedtime - Patient will not consider IPR or other rehab options outside of the home Assessment & Plan (02/28/2025 5:56 AM CHEF): Pt endorses a >200 lb weight loss since 06/2024, related to multiple hospitalizations and ICU stays. She is happy with her weight loss, but feels very low appetite and has mobility issues 2/2 recent surgery and pain. High c/f protein calorie malnutrition. Plan: - RD consult - SW consult for concerns of food access - thiamine, folate - Calorie counts - Ensure supplements with meals and bedtime - Patient will not consider IPR or other rehab options outside of the home Assessment & Plan (02/27/2025 10:08 AM CHEF): Pt endorses a >200 lb weight loss since 06/2024, related to multiple hospitalizations and ICU stays. She is happy with her weight loss, but feels very low appetite and has mobility issues 2/2 recent surgery and pain. High c/f protein calorie malnutrition. Plan: - RD consult - SW consult for concerns of food access - thiamine, folate - Calorie counts - Ensure supplements with meals and bedtime - Patient will not consider IPR or other rehab options outside of the home Assessment & Plan (02/26/2025 7:14 AM CHEF): Pt endorses a >200 lb weight loss since 06/2024, related to multiple hospitalizations and ICU stays. She is happy with her weight loss, but feels very low appetite and has mobility issues 2/2 recent surgery and pain. High c/f protein calorie malnutrition. - RD c/s - Patient will not consider IPR or other rehab options outside of the home - SW consult - thiamine, folate Assessment & Plan (02/25/2025 3:50 PM CHEF): Pt endorses a >200 lb weight loss since 06/2024, related to multiple hospitalizations and ICU stays. She is happy with her weight loss, but feels very low appetite and has mobility issues 2/2 recent surgery and pain. High c/f protein calorie malnutrition. - RD c/s - Patient will not consider IPR or other rehab options outside of the home - SW consult - thiamine, folate Assessment & Plan (10/22/2024 9:14 PM CDT): BMI 52. Nutrition was re engaged consulted cause she is obese but also now malnourished due to her prolonged admissions and poor PO intake. Given malnutrition and to minimize stool passing through fistula, planning for NPO with TPN until surgery. RD consulted. Plan: - TPN Assessment & Plan (10/21/2024 4:45 PM CDT): BMI 52. Nutrition was re engaged consulted cause she is obese but also now malnourished due to her prolonged admissions and poor PO intake. Given malnutrition and to minimize stool passing through fistula, planning for NPO with TPN until surgery. RD consulted. Plan: - TPN - Daily labs for electrolyte management. Assessment & Plan (10/20/2024 3:03 PM CDT): BMI 52. Nutrition was re engaged consulted cause she is obese but also now malnourished due to her prolonged admissions and poor PO intake. Given malnutrition and to minimize stool passing through fistula, planning for NPO with TPN until surgery. RD consulted. Plan: - TPN - Daily labs for electrolyte management. Assessment & Plan (10/19/2024 9:31 AM CDT): BMI 52. Nutrition was re engaged consulted cause she is obese but also now malnourished due to her prolonged admissions and poor PO intake. Given malnutrition and to minimize stool passing through fistula, planning for NPO with TPN until surgery. RD consulted. Plan: - TPN - Daily labs for electrolyte management. Assessment & Plan (10/18/2024 8:51 AM CDT): BMI 52. Nutrition was re engaged consulted cause she is obese but also now malnourished due to her prolonged admissions and poor PO intake. Given malnutrition and to minimize stool passing through fistula, planning for NPO with TPN until surgery. RD consulted. Plan: - TPN - Daily labs for electrolyte management. Assessment & Plan (10/17/2024 1:19 PM CDT): BMI 52. Nutrition was re engaged consulted cause she is obese but also now malnourished due to her prolonged admissions and poor PO intake. Given malnutrition and to minimize stool passing through fistula, planning for NPO with TPN until surgery. RD consulted. Plan: - TPN - Daily labs for electrolyte management. Assessment & Plan (10/16/2024 1:02 PM CDT): BMI 52. Nutrition was re engaged consulted cause she is obese but also now malnourished due to her prolonged admissions and poor PO intake. Will need goals and better information regarding dietary habits that are sustainable. Assessment & Plan (10/15/2024 10:10 AM CDT): BMI 52. Nutrition was re engaged consulted cause she is obese but also now malnourished due to her prolonged admissions and poor PO intake. Will need goals and better information regarding dietary habits that are sustainable. Assessment & Plan (10/14/2024 9:34 AM CDT): BMI 52. Nutrition was re engaged consulted cause she is obese but also now malnourished due to her prolonged admissions and poor PO intake. Will need goals and better information regarding dietary habits that are sustainable. Assessment & Plan (10/13/2024 5:52 PM CDT): BMI 52. Nutrition was re engaged consulted cause she is obese but also now malnourished due to her prolonged admissions and poor PO intake. Will need goals and better information regarding dietary habits that are sustainable. Ventral hernia without obstruction or gangrene 0 10/07/2024 Abnormal uterine bleeding (AUB) 10/07/2024 Anxiety and depression 10/07/2024 Assessment & Plan (03/03/2025 7:32 AM CHEF): Has significant anxiety, which is helped by Atarax and her being at bedside. - Continue home medications: Lexapro 20 mg daily, mirtazapine 15 mg nightly, Lyrica 50 mg b.i.d. - Atarax 25 mg q.6 PRN Assessment & Plan (03/02/2025 6:38 AM CHEF): Has significant anxiety, which is helped by Atarax and her being at bedside. - Continue home medications: Lexapro 20 mg daily, mirtazapine 15 mg nightly, Lyrica 50 mg b.i.d. - Atarax 25 mg q.6 PRN Assessment & Plan (03/01/2025 6:18 AM CHEF): Has significant anxiety, which is helped by Atarax and her being at bedside. - Continue home medications: Lexapro 20 mg daily, mirtazapine 15 mg nightly, Lyrica 50 mg b.i.d. - Atarax 25 mg q.6 PRN Assessment & Plan (02/28/2025 5:56 AM CHEF): Has significant anxiety, which is helped by Atarax and her being at bedside. - Continue home medications: Lexapro 20 mg daily, mirtazapine 15 mg nightly, Lyrica 50 mg b.i.d. - Atarax 25 mg q.6 PRN Assessment & Plan (02/27/2025 6:13 AM CHEF): Has significant anxiety, which is helped by Atarax and her being at bedside. - Continue home medications: Lexapro 20 mg daily, mirtazapine 15 mg nightly, Lyrica 50 mg b.i.d. - Atarax 25 mg q.6 PRN Assessment & Plan (02/26/2025 7:14 AM CHEF): Has significant anxiety, which is helped by Atarax and her being at bedside. - Continue home medications: Lexapro 20 mg daily, mirtazapine 15 mg nightly, Lyrica 50 mg b.i.d. - Atarax 25 mg q.6 PRN Assessment & Plan (02/25/2025 6:23 AM CHEF): Has significant anxiety, which is helped by Atarax and her being at bedside. - Continue home medications: Lexapro 20 mg daily, mirtazapine 15 mg nightly, Lyrica 50 mg b.i.d. - Atarax 25 mg q.6 PRN Assessment & Plan (02/24/2025 1:45 PM CHEF): Has significant anxiety, which is helped by Atarax and her being at bedside. - Continue home medications: Lexapro 20 mg daily, mirtazapine 15 mg nightly, Lyrica 50 mg b.i.d. - Atarax 25 mg q.6 PRN Assessment & Plan (01/20/2025 1:08 PM CDT): - Continue home lexapro - 11/28 start klonopin 0.25mg BID for anxiety-changed to 0.5mg BID 11/29-monitor - decreasing 12/06/2024 to 0.25mg bid x2 days, then daily 12/07 - 12/31 d/c scheduled clonazepam - 01/03 started remeron 7.5mg qHS - 01/16- increased mirtazipine to 15 mg nightly Assessment & Plan (01/19/2025 8:40 PM CDT): - Continue home lexapro - 11/28 start klonopin 0.25mg BID for anxiety-changed to 0.5mg BID 11/29-monitor - decreasing 12/06/2024 to 0.25mg bid x2 days, then daily 12/07 - 12/31 d/c scheduled clonazepam - 01/03 started remeron 7.5mg qHS - 01/16- increased mirtazipine to 15 mg nightly Assessment & Plan (01/18/2025 3:27 PM CDT): - Continue home lexapro - 11/28 start klonopin 0.25mg BID for anxiety-changed to 0.5mg BID 11/29-monitor - decreasing 12/06/2024 to 0.25mg bid x2 days, then daily 12/07 - 12/31 d/c scheduled clonazepam - 01/03 started remeron 7.5mg qHS - 01/16- increased mirtazipine to 15 mg nightly Assessment & Plan (01/17/2025 2:32 PM CDT): - Continue home lexapro - 11/28 start klonopin 0.25mg BID for anxiety-changed to 0.5mg BID 11/29-monitor - decreasing 12/06/2024 to 0.25mg bid x2 days, then daily 12/07 - 12/31 d/c scheduled clonazepam - 01/03 started remeron 7.5mg qHS - 01/16- increased mirtazipine to 15 mg nightly Assessment & Plan (01/16/2025 9:31 PM CDT): - Continue home lexapro - 11/28 start klonopin 0.25mg BID for anxiety-changed to 0.5mg BID 11/29-monitor - decreasing 12/06/2024 to 0.25mg bid x2 days, then daily 12/07 - 12/31 d/c scheduled clonazepam - 01/03 started remeron 7.5mg qHS - 01/16- increased mirtazipine to 15 mg nightly Assessment & Plan (01/15/2025 9:08 PM CDT): - Continue home lexapro - 11/28 start klonopin 0.25mg BID for anxiety-changed to 0.5mg BID 11/29-monitor - decreasing 12/06/2024 to 0.25mg bid x2 days, then daily 12/07 - 12/31 d/c scheduled clonazepam - 9/13 started remeron 7.5mg qHS Assessment & Plan (01/14/2025 11:06 PM CDT): - Continue home lexapro - 8/8 start klonopin 0.25mg BID for anxiety-changed to 0.5mg BID /9-monitor - decreasing 12/06/2024 to 0.25mg bid x2 days, then daily 12/07 - 12/31 d/c scheduled clonazepam - 9/13 started remeron 7.5mg qHS Assessment & Plan (01/13/2025 8:04 PM CDT): - Continue home lexapro - 8/8 start klonopin 0.25mg BID for anxiety-changed to 0.5mg BID /9-monitor - decreasing 12/06/2024 to 0.25mg bid x2 days, then daily 12/07 - 12/31 d/c scheduled clonazepam - 9/13 started remeron 7.5mg qHS Assessment & Plan (01/12/2025 1:20 PM CDT): - Continue home lexapro - 8/8 start klonopin 0.25mg BID for anxiety-changed to 0.5mg BID /9-monitor - decreasing 12/06/2024 to 0.25mg bid x2 days, then daily 12/07 - 12/31 d/c scheduled clonazepam - 9/13 started remeron 7.5mg qHS Assessment & Plan (01/11/2025 12:18 PM CDT): - Continue home lexapro - 8/8 start klonopin 0.25mg BID for anxiety-changed to 0.5mg BID /9-monitor - decreasing 12/06/2024 to 0.25mg bid x2 days, then daily 12/07 - 12/31 d/c scheduled clonazepam - 9/13 started remeron 7.5mg qHS Assessment & Plan (01/10/2025 11:26 AM CDT): - Continue home lexapro - 8/8 start klonopin 0.25mg BID for anxiety-changed to 0.5mg BID 8/9-monitor - decreasing 12/06/2024 to 0.25mg bid x2 days, then daily 12/07 - 12/31 d/c scheduled clonazepam - 9 started remeron 7.5mg qHS Assessment & Plan (01/09/2025 11:58 AM CDT): - Continue home lexapro - 88 start klonopin 0.25mg BID for anxiety-changed to 0.5mg BID 8/9-monitor - decreasing 12/06/2024 to 0.25mg bid x2 days, then daily 12/07 - 12/31 d/c scheduled clonazepam - 01/03 started remeron 7.5mg qHS Assessment & Plan (01/08/2025 10:29 AM CDT): - Continue home lexapro - 88 start klonopin 0.25mg BID for anxiety-changed to 0.5mg BID 8/9-monitor - decreasing 12/06/2024 to 0.25mg bid x2 days, then daily 12/07 - 12/31 d/c scheduled clonazepam - 01/03 started remeron 7.5mg qHS Assessment & Plan (01/07/2025 1:32 PM CDT): - Continue home lexapro - 8/8 start klonopin 0.25mg BID for anxiety-changed to 0.5mg BID /9-monitor - decreasing 12/06/2024 to 0.25mg bid x2 days, then daily 12/07 - 12/31 d/c scheduled clonazepam - 13 started remeron 7.5mg qHS Assessment & Plan (01/06/2025 1:47 PM CDT): - Continue home lexapro - 8/8 start klonopin 0.25mg BID for anxiety-changed to 0.5mg BID 8/9-monitor - decreasing 12/06/2024 to 0.25mg bid x2 days, then daily 12/07 - 09/10 d/c scheduled clonazepam - 01/03 started remeron 7.5mg qHS Assessment & Plan (01/05/2025 8:19 PM CDT): - Continue home lexapro - 11/28 start klonopin 0.25mg BID for anxiety-changed to 0.5mg BID /9-monitor - decreasing 12/06/2024 to 0.25mg bid x2 days, then daily 12/07 - 12/31 d/c scheduled clonazepam Assessment & Plan (01/04/2025 2:44 PM CDT): - Continue home lexapro - 11/28 start klonopin 0.25mg BID for anxiety-changed to 0.5mg BID /9-monitor - decreasing 12/06/2024 to 0.25mg bid x2 days, then daily 12/07 - 12/31 d/c scheduled clonazepam Assessment & Plan (01/03/2025 6:12 PM CDT): - Continue home lexapro - 11/28 start klonopin 0.25mg BID for anxiety-changed to 0.5mg BID /9-monitor - decreasing 12/06/2024 to 0.25mg bid x2 days, then daily 12/07 - 12/31 d/c scheduled clonazepam Assessment & Plan (01/02/2025 7:31 PM CDT): - Continue home lexapro - 11/28 start klonopin 0.25mg BID for anxiety-changed to 0.5mg BID /9-monitor - decreasing 12/06/2024 to 0.25mg bid x2 days, then daily 12/07 - 12/31 d/c scheduled clonazepam Assessment & Plan (01/01/2025 6:42 PM CDT): - Continue home lexapro - 8 start klonopin 0.25mg BID for anxiety-changed to 0.5mg BID /9-monitor - decreasing 12/06/2024 to 0.25mg bid x2 days, then daily 12/07 - 12/31 d/c scheduled clonazepam Assessment & Plan (12/31/2024 7:53 PM CDT): - Continue home lexapro - 8/8 start klonopin 0.25mg BID for anxiety-changed to 0.5mg BID /9-monitor - decreasing 12/06/2024 to 0.25mg bid x2 days, then daily 12/07 - stop scheduled clonazepam Assessment & Plan (12/30/2024 4:26 PM CDT): - Continue home lexapro - 8/8 start klonopin 0.25mg BID for anxiety-changed to 0.5mg BID /9-monitor - decreasing 12/06/2024 to 0.25mg bid x2 days, then daily 12/07 Assessment & Plan (12/29/2024 10:35 AM CDT): - Continue home lexapro - 8/8 start klonopin 0.25mg BID for anxiety-changed to 0.5mg BID /9-monitor - decreasing 12/06/2024 to 0.25mg bid x2 days, then daily 12/07 Assessment & Plan (12/28/2024 11:23 AM CDT): - Continue home lexapro - 8/8 start klonopin 0.25mg BID for anxiety-changed to 0.5mg BID /9-monitor - decreasing 12/06/2024 to 0.25mg bid x2 days, then daily 12/07 Assessment & Plan (12/27/2024 10:44 AM CDT): - Continue home lexapro - 8/8 start klonopin 0.25mg BID for anxiety-changed to 0.5mg BID /9-monitor - decreasing 12/06/2024 to 0.25mg bid x2 days, then daily 12/07 Assessment & Plan (12/26/2024 1:28 PM CDT): - Continue home lexapro - 8/8 start klonopin 0.25mg BID for anxiety-changed to 0.5mg BID 8/9-monitor - decreasing 12/06/2024 to 0.25mg bid x2 days, then daily 12/07 Assessment & Plan (12/25/2024 1:36 PM CDT): - Continue home lexapro - 8/8 start klonopin 0.25mg BID for anxiety-changed to 0.5mg BID 8/9-monitor - decreasing 12/06/2024 to 0.25mg bid x2 days, then daily 12/07 Assessment & Plan (12/24/2024 12:30 PM CDT): - Continue home lexapro - 8/8 start klonopin 0.25mg BID for anxiety-changed to 0.5mg BID /9-monitor - decreasing 12/06/2024 to 0.25mg bid x2 days, then daily 12/07 Assessment & Plan (12/23/2024 12:16 PM CDT): - Continue home lexapro - 8/8 start klonopin 0.25mg BID for anxiety-changed to 0.5mg BID 8/9-monitor - decreasing 12/06/2024 to 0.25mg bid x2 days, then daily 12/07 Assessment & Plan (12/22/2024 7:49 AM CDT): - Continue home lexapro - 8/8 start klonopin 0.25mg BID for anxiety-changed to 0.5mg BID /9-monitor - decreasing 12/06/2024 to 0.25mg bid x2 days, then daily 12/07 Assessment & Plan (12/21/2024 8:31 AM CDT): - Continue home lexapro - 8/8 start klonopin 0.25mg BID for anxiety-changed to 0.5mg BID 8/9-monitor - decreasing 12/06/2024 to 0.25mg bid x2 days, then daily 12/07 Assessment & Plan (12/20/2024 9:08 AM CDT): - Continue home lexapro - 8/8 start klonopin 0.25mg BID for anxiety-changed to 0.5mg BID 8/9-monitor - decreasing 12/06/2024 to 0.25mg bid x2 days, then daily 12/07 Assessment & Plan (12/19/2024 7:54 AM CDT): - Continue home lexapro - 8/8 start klonopin 0.25mg BID for anxiety-changed to 0.5mg BID /9-monitor - decreasing 12/06/2024 to 0.25mg bid x2 days, then daily 12/07 Assessment & Plan (12/18/2024 8:14 AM CDT): - Continue home lexapro - 8/8 start klonopin 0.25mg BID for anxiety-changed to 0.5mg BID /9-monitor - decreasing 12/06/2024 to 0.25mg bid x2 days, then daily 12/07 Assessment & Plan (12/17/2024 1:15 PM CDT): - Continue home lexapro - 8/8 start klonopin 0.25mg BID for anxiety-changed to 0.5mg BID /9-monitor - decreasing 12/06/2024 to 0.25mg bid x2 days, then daily 12/07 Assessment & Plan (12/16/2024 2:46 PM CDT): - Continue home lexapro - 8/8 start klonopin 0.25mg BID for anxiety-changed to 0.5mg BID /9-monitor - decreasing 12/06/2024 to 0.25mg bid x2 days, then daily 12/07 Assessment & Plan (12/15/2024 12:46 PM CDT): - Continue home lexapro - 8/8 start klonopin 0.25mg BID for anxiety-changed to 0.5mg BID 8/9-monitor - decreasing 12/06/2024 to 0.25mg bid x2 days, then daily 12/07 Assessment & Plan (12/14/2024 10:58 AM CDT): - Continue home lexapro - 8/8 start klonopin 0.25mg BID for anxiety-changed to 0.5mg BID 8/9-monitor - decreasing 12/06/2024 to 0.25mg bid x2 days, then daily 12/07 Assessment & Plan (12/13/2024 1:19 PM CDT): - Continue home lexapro - 8/8 start klonopin 0.25mg BID for anxiety-changed to 0.5mg BID 8/9-monitor - decreasing 12/06/2024 to 0.25mg bid x2 days, then daily 12/07 Assessment & Plan (12/12/2024 2:48 PM CDT): - Continue home lexapro - 8/8 start klonopin 0.25mg BID for anxiety-changed to 0.5mg BID /9-monitor - decreasing 12/06/2024 to 0.25mg bid x2 days, then daily 12/07 Assessment & Plan (12/11/2024 8:52 PM CDT): - Continue home lexapro - 8/8 start klonopin 0.25mg BID for anxiety-changed to 0.5mg BID /9-monitor - decreasing 12/06/2024 to 0.25mg bid x2 days, then daily 12/07 Assessment & Plan (12/10/2024 8:41 AM CDT): - Continue home lexapro - 8/8 start klonopin 0.25mg BID for anxiety-changed to 0.5mg BID /9-monitor - decreasing 12/06/2024 to 0.25mg bid x2 days, then daily then off Assessment & Plan (12/09/2024 8:35 AM CDT): - Continue home lexapro - 8/8 start klonopin 0.25mg BID for anxiety-changed to 0.5mg BID 8/9-monitor - decreasing 12/06/2024 to 0.25mg bid x2 days, then daily then off Assessment & Plan (12/08/2024 2:09 PM CDT): - Continue home lexapro - 8/8 start klonopin 0.25mg BID for anxiety-changed to 0.5mg BID /9-monitor - decreasing 12/06/2024 to 0.25mg bid x2 days, then daily then off Assessment & Plan (12/07/2024 1:18 PM CDT): - Continue home lexapro - 8/8 start klonopin 0.25mg BID for anxiety-changed to 0.5mg BID /9-monitor - decreasing 12/06/2024 to 0.25mg bid x2 days, then daily then off Assessment & Plan (12/06/2024 2:19 PM CDT): - Continue home lexapro - 8/8 start klonopin 0.25mg BID for anxiety-changed to 0.5mg BID /9-monitor - decreasing 12/06/2024 to 0.25mg bid x2 days, then daily then off Assessment & Plan (12/05/2024 4:47 PM CDT): - Continue home lexapro - 8/8 start klonopin 0.25mg BID for anxiety-changed to 0.5mg BID /9-monitor - decreasing 12/04/2024 to 0.25mg qdaily and 0.5mg nightly, then taper to 0.25mg bid x3 days, then daily then off Assessment & Plan (12/04/2024 2:08 PM CDT): - Continue home lexapro - 8/8 start klonopin 0.25mg BID for anxiety-changed to 0.5mg BID /9-monitor - decreasing 12/04/2024 to 0.25mg qdaily and 0.5mg nightly, then taper to 0.25mg bid x3 days, then daily then off Assessment & Plan (12/03/2024 6:06 PM CDT): - Continue home lexapro - 8/8 start klonopin 0.25mg BID for anxiety-changed to 0.5mg BID 8/9-monitor - decreasing 12/04/2024 to 0.25mg qdaily and 0.5mg nightly, then taper to 0.25mg bid x3 days, then daily then off Assessment & Plan (12/02/2024 2:26 PM CDT): - Continue home lexapro - 11/28 start klonopin 0.25mg BID for anxiety-changed to 0.5mg BID 8/9-monitor Assessment & Plan (12/01/2024 9:54 AM CDT): - Continue home lexapro - 11/28 start klonopin 0.25mg BID for anxiety-changed to 0.5mg BID /9-monitor Assessment & Plan (11/30/2024 1:01 PM CDT): - Continue home lexapro - 11/28 start klonopin 0.25mg BID for anxiety-changed to 0.5mg BID /9-monitor Assessment & Plan (11/29/2024 11:20 AM CDT): - Continue home lexapro -11/28 start klonopin 0.25mg BID for anxiety Assessment & Plan (11/28/2024 1:42 PM CDT): - Continue home lexapro Assessment & Plan (11/27/2024 10:16 AM CDT): - Continue home lexapro Assessment & Plan (11/26/2024 12:13 PM CDT): - Continue home lexapro Assessment & Plan (11/25/2024 4:00 PM CDT): - Continue home lexapro Assessment & Plan (11/24/2024 8:49 AM CDT): -Continue home lexapro Assessment & Plan (11/23/2024 1:10 PM CDT): -Continue home lexapro Assessment & Plan (11/22/2024 12:21 PM CDT): -Continue home lexapro Assessment & Plan (11/21/2024 3:38 PM CDT): -Continue home lexapro Assessment & Plan (11/20/2024 3:42 PM CDT): -Continue home lexapro Assessment & Plan (11/19/2024 12:57 PM CDT): -Continue home lexapro Assessment & Plan (11/18/2024 6:00 PM CDT): -Continue home lexapro Assessment & Plan (11/11/2024 3:08 PM CDT): -Continue home lexapro Assessment & Plan (11/10/2024 7:55 AM CDT): -Continue home lexapro Assessment & Plan (11/09/2024 7:26 AM CDT): -Continue home lexapro Assessment & Plan (11/08/2024 8:50 AM CDT): -Continue home lexapro Assessment & Plan (11/07/2024 7:56 AM CDT): -Continue home lexapro Assessment & Plan (11/06/2024 9:12 AM CDT): -Continue home lexapro Assessment & Plan (11/05/2024 7:22 AM CDT): -Continue home lexapro Assessment & Plan (11/04/2024 5:53 PM CDT): -Continue home lexapro Assessment & Plan (11/03/2024 8:03 AM CDT): -Continue home lexapro Assessment & Plan (11/02/2024 7:50 AM CDT): -Continue home lexapro Assessment & Plan (11/01/2024 8:08 AM CDT): -Continue home lexapro Assessment & Plan (10/31/2024 7:30 AM CDT): -Continue home lexapro Assessment & Plan (10/31/2024 2:50 AM CDT): -Continue home lexapro Assessment & Plan (10/22/2024 9:14 PM CDT): -Home Lexapro Assessment & Plan (10/21/2024 4:45 PM CDT): -Continue home Lexapro Assessment & Plan (10/20/2024 3:03 PM CDT): -Continue home Lexapro Assessment & Plan (10/19/2024 9:31 AM CDT): -Continue home Lexapro Assessment & Plan (10/18/2024 8:51 AM CDT): -Continue home Lexapro Assessment & Plan (10/17/2024 1:19 PM CDT): -Continue home Lexapro Assessment & Plan (10/16/2024 1:02 PM CDT): -Continue home Lexapro Assessment & Plan (10/15/2024 10:10 AM CDT): -Continue home Lexapro Assessment & Plan (10/14/2024 9:34 AM CDT): -Continue home Lexapro Assessment & Plan (10/13/2024 5:52 PM CDT): -Continue home Lexapro Assessment & Plan (10/12/2024 11:25 AM CDT): -Continue home Lexapro Assessment & Plan (10/11/2024 10:03 AM CDT): -Continue home Lexapro Assessment & Plan (10/10/2024 2:50 PM CDT): -Continue home Lexapro Assessment & Plan (10/09/2024 10:57 AM CDT): -Continue home Lexapro Assessment & Plan (10/08/2024 3:33 PM CDT): -Continue home Lexapro Assessment & Plan (10/07/2024 7:16 AM CDT): -Continue home Lexapro Anemia 10/07/2024 Melena 10/07/2024 Assessment & Plan (10/22/2024 9:14 PM CDT): FHx of colon cancer and chart review history of chronic anemia requiring intermittent transfusions. Reports of rectal bleeding in chart in August. Presentation of dark stools likely 2/2 bleed from infection. Hgb 11.8 on arrival, likely hemoconcentrated as baseline 9-10. B12 normal. Iron studies consistent with anemia of chronic disease. Plan: - Continue PPI until colonoscopy - Continue weekly CBC Assessment & Plan (10/21/2024 6:17 PM CDT): FHx of colon cancer and chart review history of chronic anemia requiring intermittent transfusions. Reports of rectal bleeding in chart in August. Presentation of dark stools likely 2/2 bleed from infection. Hgb 11.8 on arrival, likely hemoconcentrated as baseline 9-10. B12 normal. Iron studies consistent with anemia of chronic disease. - Continue PPI until colonoscopy - Continue weekly CBC Assessment & Plan (10/20/2024 3:03 PM CDT): FHx of colon cancer and chart review history of chronic anemia requiring intermittent transfusions. Reports of rectal bleeding in chart in August. Presentation of dark stools likely 2/2 bleed from infection. Hgb 11.8 on arrival, likely hemoconcentrated as baseline 9-10. B12 normal. Iron studies consistent with anemia of chronic disease. - PPI until scopes - weekly CBC Assessment & Plan (10/19/2024 9:31 AM CDT): FHx of colon cancer and chart review history of chronic anemia requiring intermittent transfusions. Reports of rectal bleeding in chart in August. Presentation of dark stools likely 2/2 bleed from infection. Hgb 11.8 on arrival, likely hemoconcentrated as baseline 9-10. B12 normal. Iron studies consistent with anemia of chronic disease. - PPI until scopes - weekly CBC Assessment & Plan (10/18/2024 8:51 AM CDT): FHx of colon cancer and chart review history of chronic anemia requiring intermittent transfusions. Reports of rectal bleeding in chart in August. Presentation of dark stools likely 2/2 bleed from infection. Hgb 11.8 on arrival, likely hemoconcentrated as baseline 9-10. B12 normal. Iron studies consistent with anemia of chronic disease. - PPI until scopes - weekly CBC Assessment & Plan (10/17/2024 1:19 PM CDT): FHx of colon cancer and chart review history of chronic anemia requiring intermittent transfusions. Reports of rectal bleeding in chart in August. Presentation of dark stools likely 2/2 bleed from infection. Hgb 11.8 on arrival, likely hemoconcentrated as baseline 9-10. B12 normal. Iron studies consistent with anemia of chronic disease. - PPI until scopes - weekly CBC Assessment & Plan (10/16/2024 1:02 PM CDT): FHx of colon cancer and chart review history of chronic anemia requiring intermittent transfusions. Reports of rectal bleeding in chart in August. Presentation of dark stools likely 2/2 bleed from infection. Hgb 11.8 on arrival, likely hemoconcentrated as baseline 9-10. B12 normal. Iron studies consistent with anemia of chronic disease. - PPI until scopes - weekly CBC, T&S Assessment & Plan (10/15/2024 10:10 AM CDT): FHx of colon cancer and chart review history of chronic anemia requiring intermittent transfusions. Reports of rectal bleeding in chart in August. Presentation of dark stools likely 2/2 bleed from infection. Hgb 11.8 on arrival, likely hemoconcentrated as baseline 9-10. B12 normal. Iron studies consistent with anemia of chronic disease. - PPI until scopes - weekly CBC, T&S Assessment & Plan (10/14/2024 9:34 AM CDT): FHx of colon cancer and chart review history of chronic anemia requiring intermittent transfusions. Reports of rectal bleeding in chart in August. Presentation of dark stools likely 2/2 bleed from infection. Hgb 11.8 on arrival, likely hemoconcentrated as baseline 9-10. B12 normal. Iron studies consistent with anemia of chronic disease. - PPI BID until scopes - daily CBC, T&S Assessment & Plan (10/13/2024 5:52 PM CDT): FHx of colon cancer and chart review history of chronic anemia requiring intermittent transfusions. Reports of rectal bleeding in chart in August. Presentation of dark stools likely 2/2 bleed from infection. Hgb 11.8 on arrival, likely hemoconcentrated as baseline 9-10. B12 normal. Iron studies consistent with anemia of chronic disease. - PPI BID until scopes - daily CBC, T&S Assessment & Plan (10/12/2024 11:25 AM CDT): FHx of colon cancer and chart review history of chronic anemia requiring intermittent transfusions. Reports of rectal bleeding in chart in August. Presentation of dark stools likely 2/2 bleed from infection. Hgb 11.8 on arrival, likely hemoconcentrated as baseline 9-10. B12 normal. Iron studies consistent with anemia of chronic disease. - GI consulted, signed off: PO PPI BID until outpatient scopes - daily CBC, T&S Assessment & Plan (10/11/2024 10:03 AM CDT): FHx of colon cancer and chart review history of chronic anemia requiring intermittent transfusions. Reports of rectal bleeding in chart in August. Presentation of dark stools likely 2/2 bleed from infection. Hgb 11.8 on arrival, likely hemoconcentrated as baseline 9-10. B12 normal. Iron studies consistent with anemia of chronic disease. - GI consulted, signed off: PO PPI BID until outpatient scopes - daily CBC, T&S Assessment & Plan (10/10/2024 2:50 PM CDT): FHx of colon cancer and chart review history of chronic anemia requiring intermittent transfusions. Reports of rectal bleeding in chart in August. Presentation of dark stools likely 2/2 bleed from infection. Hgb 11.8 on arrival, likely hemoconcentrated as baseline 9-10. B12 normal. Iron studies consistent with anemia of chronic disease. - GI consulted, signed off: PO PPI BID until outpatient scopes - daily CBC, T&S Assessment & Plan (10/09/2024 10:57 AM CDT): FHx of colon cancer and chart review history of chronic anemia requiring intermittent transfusions. Reports of rectal bleeding in chart in August. Presentation of dark stools likely 2/2 bleed from infection. Hgb 11.8 on arrival, likely hemoconcentrated as baseline 9-10. B12 normal. Iron studies consistent with anemia of chronic disease. - GI consulted, signed off: PO PPI BID until outpatient scopes - daily CBC, T&S Assessment & Plan (10/08/2024 3:33 PM CDT): FHx of colon cancer and chart review history of chronic anemia requiring intermittent transfusions. Reports of rectal bleeding in chart in August. Presentation of dark stools likely 2/2 bleed from infection. Hgb 11.8 on arrival, likely hemoconcentrated as baseline 9-10. B12 normal. Iron studies consistent with anemia of chronic disease. - GI consulted, signed off: PO PPI BID until outpatient scopes - daily CBC, T&S Assessment & Plan (10/07/2024 7:16 AM CDT): FHx of colon cancer and chart review history of chronic anemia requiring intermittent transfusions. Reports of rectal bleeding in chart in August. Presentation of dark stools likely 2/2 bleed from infection. Hgb 11.8 on arrival, likely hemoconcentrated as baseline 9-10. B12 normal -CBC, T&S - iron profile, ferritin, retic - GI: PPI, monitor stool, okay with ASA - OP EGD since hx [place] History of bacteremia 10/07/2024 Assessment & Plan (10/22/2024 11:35 AM CDT): 09/14 1/ MSSA cx. Received cefe and vanc (09/14 - 09/16), CTX (09/16 - 09/19), and dalbavancin x1 (09/19) per ID and considered treated - admission BCx: negative Assessment & Plan (10/21/2024 4:45 PM CDT): 09/14 1/ MSSA cx. Received cefe and vanc (09/14 - 09/16), CTX (09/16 - 09/19), and dalbavancin x1 (09/19) per ID and considered treated - admission BCx: negative Assessment & Plan (10/20/2024 3:03 PM CDT): 09/14 1/ MSSA cx. Received cefe and vanc (09/14 - 09/16), CTX (09/16 - 09/19), and dalbavancin x1 (09/19) per ID and considered treated - admission BCx: negative Assessment & Plan (10/19/2024 9:31 AM CDT): 09/14 1/2 MSSA cx. Received cefe and vanc (09/14 - 09/16), CTX (09/16 - 09/19), and dalbavancin x1 (09/19) per ID and considered treated - admission BCx: negative Assessment & Plan (10/18/2024 8:51 AM CDT): 09/14 1/2 MSSA cx. Received cefe and vanc (09/14 - 09/16), CTX (09/16 - 09/19), and dalbavancin x1 (09/19) per ID and considered treated - admission BCx: negative Assessment & Plan (10/17/2024 1:19 PM CDT): 09/14 04/24 MSSA cx. Received cefe and vanc (09/14 - 09/16), CTX (09/16 - 09/19), and dalbavancin x1 (09/19) per ID and considered treated -follow up admission BCx: no growth to date Assessment & Plan (10/16/2024 1:02 PM CDT): 09/14 04/24 MSSA cx. Received cefe and vanc (09/14 - 09/16), CTX (09/16 - 09/19), and dalbavancin x1 (09/19) per ID and considered treated -follow up admission BCx: no growth to date Assessment & Plan (10/15/2024 10:10 AM CDT): 09/14 04/24 MSSA cx. Received cefe and vanc (09/14 - 09/16), CTX (09/16 - 09/19), and dalbavancin x1 (09/19) per ID and considered treated -follow up admission BCx: no growth to date Assessment & Plan (10/14/2024 9:34 AM CDT): 09/14 04/24 MSSA cx. Received cefe and vanc (09/14 - 09/16), CTX (09/16 - 09/19), and dalbavancin x1 (09/19) per ID and considered treated -follow up admission BCx: no growth to date Assessment & Plan (10/13/2024 5:52 PM CDT): 09/14/ MSSA cx. Received cefe and vanc (09/14 - 09/16), CTX (09/16 - 09/19), and dalbavancin x1 (09/19) per ID and considered treated -follow up admission BCx: no growth to date Assessment & Plan (10/12/2024 11:25 AM CDT): 09/14/ MSSA cx. Received cefe and vanc (09/14 - 09/16), CTX (09/16 - 09/19), and dalbavancin x1 (09/19) per ID and considered treated -follow up admission BCx: no growth to date Assessment & Plan (10/11/2024 10:03 AM CDT): 09/14 04/24 MSSA cx. Received cefe and vanc (09/14 - 09/16), CTX (09/16 - 09/19), and dalbavancin x1 (09/19) per ID and considered treated -follow up admission BCx: no growth to date Assessment & Plan (10/10/2024 2:50 PM CDT): 09/14 04/24 MSSA cx. Received cefe and vanc (09/14 - 09/16), CTX (09/16 - 09/19), and dalbavancin x1 (09/19) per ID and considered treated -follow up admission BCx: no growth to date Assessment & Plan (10/09/2024 10:57 AM CDT): 09/14 04/24 MSSA cx. Received cefe and vanc (09/14 - 09/16), CTX (09/16 - 09/19), and dalbavancin x1 (09/19) per ID and considered treated -follow up admission BCx: no growth to date Assessment & Plan (10/08/2024 3:33 PM CDT): 09/14/ MSSA cx. Received cefe and vanc (09/14 - 09/16), CTX (09/16 - 09/19), and dalbavancin x1 (09/19) per ID and considered treated -follow up admission BCx Assessment & Plan (10/07/2024 7:16 AM CDT): 09/14/2 MSSA cx. Received cefe and vanc (09/14 - 09/16), CTX (09/16 - 09/19), and dalbavancin x1 (09/19) per ID and considered treated -follow up admission BCx Chronic pain 10/07/2024 Assessment & Plan (10/22/2024 11:35 AM CDT): Continue home gabapentin, robaxin, lidocaine patch Assessment & Plan (10/21/2024 4:45 PM CDT): Continue home gabapentin, robaxin, lidocaine patch Assessment & Plan (10/20/2024 3:03 PM CDT): Continue home gabapentin, robaxin, lidocaine patch Assessment & Plan (10/19/2024 9:31 AM CDT): Continue home gabapentin, robaxin, lidocaine patch Assessment & Plan (10/18/2024 8:51 AM CDT): Continue home gabapentin, robaxin, lidocaine patch Assessment & Plan (10/17/2024 1:19 PM CDT): Continue home gabapentin, robaxin, lidocaine patch Assessment & Plan (10/16/2024 1:02 PM CDT): Continue home gabapentin, robaxin, lidocaine patch Assessment & Plan (10/15/2024 10:10 AM CDT): Continue home gabapentin, robaxin, lidocaine patch Assessment & Plan (10/14/2024 9:34 AM CDT): Continue home gabapentin, robaxin, lidocaine patch Assessment & Plan (10/13/2024 5:52 PM CDT): Continue home gabapentin, robaxin, lidocaine patch Assessment & Plan (10/12/2024 11:25 AM CDT): Continue home gabapentin, robaxin, lidocaine patch Assessment & Plan (10/11/2024 10:03 AM CDT): Continue home gabapentin, robaxin, lidocaine patch Assessment & Plan (10/10/2024 2:50 PM CDT): Continue home gabapentin, robaxin, lidocaine patch Assessment & Plan (10/09/2024 10:57 AM CDT): Continue home gabapentin, robaxin, lidocaine patch Assessment & Plan (10/08/2024 3:33 PM CDT): Continue home gabapentin, robaxin, lidocaine patch Assessment & Plan (10/07/2024 7:16 AM CDT): Continue home gabapentin, robaxin, lidocaine patch Hypothyroidism, unspecified 10/07/2024 Assessment & Plan (03/24/2025 10:00 AM CHEF): Recent TSH 3.24. Patient has been out of refills for levothyroxine for the past few days - Refill for levothyroxine - Recheck TSH in a few months Orders: levothyroxine (SYNTHROID) 75 mcg tablet; Take 1 tablet (75 mcg total) by mouth mangle feeder before breakfast Assessment & Plan (01/20/2025 1:08 PM CDT): - Continue home levothyroxine Assessment & Plan (01/19/2025 8:40 PM CDT): - Continue home levothyroxine Assessment & Plan (01/18/2025 3:27 PM CDT): - Continue home levothyroxine Assessment & Plan (01/17/2025 2:32 PM CDT): - Continue home levothyroxine Assessment & Plan (01/16/2025 9:26 PM CDT): - Continue home levothyroxine Assessment & Plan (01/15/2025 9:08 PM CDT): - Continue home levothyroxine Assessment & Plan (01/14/2025 11:06 PM CDT): - Continue home levothyroxine Assessment & Plan (01/13/2025 8:04 PM CDT): - Continue home levothyroxine Assessment & Plan (01/12/2025 1:20 PM CDT): - Continue home levothyroxine Assessment & Plan (01/11/2025 12:18 PM CDT): - Continue home levothyroxine Assessment & Plan (01/10/2025 11:26 AM CDT): - Continue home levothyroxine Assessment & Plan (01/09/2025 11:58 AM CDT): - Continue home levothyroxine Assessment & Plan (01/08/2025 10:29 AM CDT): - Continue home levothyroxine Assessment & Plan (01/07/2025 1:32 PM CDT): - Continue home levothyroxine Assessment & Plan (01/06/2025 1:47 PM CDT): - Continue home levothyroxine Assessment & Plan (01/05/2025 8:19 PM CDT): - Continue home levothyroxine Assessment & Plan (01/04/2025 2:44 PM CDT): - Continue home levothyroxine Assessment & Plan (01/03/2025 6:12 PM CDT): - Continue home levothyroxine Assessment & Plan (01/02/2025 7:31 PM CDT): - Continue home levothyroxine Assessment & Plan (01/01/2025 6:42 PM CDT): - Continue home levothyroxine Assessment & Plan (12/31/2024 6:52 PM CDT): - Continue home levothyroxine Assessment & Plan (12/30/2024 4:26 PM CDT): - Continue home levothyroxine Assessment & Plan (12/29/2024 10:35 AM CDT): - Continue home levothyroxine Assessment & Plan (12/28/2024 11:23 AM CDT): - Continue home levothyroxine Assessment & Plan (12/27/2024 10:44 AM CDT): - Continue home levothyroxine Assessment & Plan (12/26/2024 1:28 PM CDT): - Continue home levothyroxine Assessment & Plan (12/25/2024 1:36 PM CDT): - Continue home levothyroxine Assessment & Plan (12/24/2024 12:30 PM CDT): - Continue home levothyroxine Assessment & Plan (12/23/2024 12:16 PM CDT): - Continue home levothyroxine Assessment & Plan (12/22/2024 7:49 AM CDT): - Continue home levothyroxine Assessment & Plan (12/21/2024 8:31 AM CDT): - Continue home levothyroxine Assessment & Plan (12/20/2024 9:08 AM CDT): - Continue home levothyroxine Assessment & Plan (12/19/2024 7:54 AM CDT): - Continue home levothyroxine Assessment & Plan (12/18/2024 8:14 AM CDT): - Continue home levothyroxine Assessment & Plan (12/17/2024 1:15 PM CDT): - Continue home levothyroxine Assessment & Plan (12/16/2024 2:46 PM CDT): - Continue home levothyroxine Assessment & Plan (12/15/2024 12:46 PM CDT): - Continue home levothyroxine Assessment & Plan (12/14/2024 10:58 AM CDT): - Continue home levothyroxine Assessment & Plan (12/13/2024 1:19 PM CDT): - Continue home levothyroxine Assessment & Plan (12/12/2024 2:48 PM CDT): - Continue home levothyroxine Assessment & Plan (12/11/2024 8:52 PM CDT): - Continue home levothyroxine Assessment & Plan (12/10/2024 8:41 AM CDT): - Continue home levothyroxine Assessment & Plan (12/09/2024 8:35 AM CDT): - Continue home levothyroxine Assessment & Plan (12/08/2024 2:09 PM CDT): - Continue home levothyroxine Assessment & Plan (12/07/2024 1:18 PM CDT): - Continue home levothyroxine Assessment & Plan (12/06/2024 2:19 PM CDT): - Continue home levothyroxine Assessment & Plan (12/05/2024 4:47 PM CDT): - Continue home levothyroxine Assessment & Plan (12/04/2024 2:08 PM CDT): - Continue home levothyroxine Assessment & Plan (12/03/2024 6:06 PM CDT): - Continue home levothyroxine Assessment & Plan (12/02/2024 2:26 PM CDT): - Continue home levothyroxine Assessment & Plan (12/01/2024 9:54 AM CDT): - Continue home levothyroxine Assessment & Plan (11/30/2024 1:01 PM CDT): - Continue home levothyroxine Assessment & Plan (11/29/2024 11:20 AM CDT): - Continue home levothyroxine Assessment & Plan (11/28/2024 1:42 PM CDT): - Continue home levothyroxine Assessment & Plan (11/27/2024 10:16 AM CDT): - Continue home levothyroxine Assessment & Plan (11/26/2024 12:13 PM CDT): - Continue home levothyroxine Assessment & Plan (11/25/2024 4:00 PM CDT): - Continue home levothyroxine Assessment & Plan (11/24/2024 8:49 AM CDT): -Continue home levothyroxine Assessment & Plan (11/23/2024 1:10 PM CDT): -Continue home levothyroxine Assessment & Plan (11/22/2024 12:21 PM CDT): -Continue home levothyroxine Assessment & Plan (11/21/2024 3:38 PM CDT): -Continue home levothyroxine Assessment & Plan (11/20/2024 3:42 PM CDT): -Continue home levothyroxine Assessment & Plan (11/19/2024 12:57 PM CDT): -Continue home levothyroxine Assessment & Plan (11/18/2024 6:00 PM CDT): -Continue home levothyroxine Assessment & Plan (11/11/2024 3:08 PM CDT): -Continue home levothyroxine Assessment & Plan (11/10/2024 7:55 AM CDT): -Continue home levothyroxine Assessment & Plan (11/09/2024 7:26 AM CDT): -Continue home levothyroxine Assessment & Plan (11/08/2024 8:50 AM CDT): -Continue home levothyroxine Assessment & Plan (11/07/2024 7:56 AM CDT): -Continue home levothyroxine Assessment & Plan (11/06/2024 9:12 AM CDT): -Continue home levothyroxine Assessment & Plan (11/05/2024 7:22 AM CDT): -Continue home levothyroxine Assessment & Plan (11/04/2024 5:53 PM CDT): -Continue home levothyroxine Assessment & Plan (11/03/2024 8:03 AM CDT): -Continue home levothyroxine Assessment & Plan (11/02/2024 7:50 AM CDT): -Continue home levothyroxine Assessment & Plan (11/01/2024 8:08 AM CDT): -Continue home levothyroxine Assessment & Plan (10/31/2024 7:30 AM CDT): -Continue home levothyroxine Assessment & Plan (10/31/2024 2:50 AM CDT): -Continue home levothyroxine Assessment & Plan (10/22/2024 9:14 PM CDT): Home synthroid Assessment & Plan (10/21/2024 4:45 PM CDT): Continue home synthroid Assessment & Plan (10/20/2024 3:03 PM CDT): Continue home synthroid Assessment & Plan (10/19/2024 9:31 AM CDT): Continue home synthroid Assessment & Plan (10/18/2024 8:51 AM CDT): Continue home synthroid Assessment & Plan (10/17/2024 1:19 PM CDT): Continue home synthroid Assessment & Plan (10/16/2024 1:02 PM CDT): Continue home synthroid Assessment & Plan (10/15/2024 10:10 AM CDT): Continue home synthroid Assessment & Plan (10/14/2024 9:34 AM CDT): Continue home synthroid Assessment & Plan (10/13/2024 5:52 PM CDT): Continue home synthroid Assessment & Plan (10/12/2024 11:25 AM CDT): Continue home synthroid Assessment & Plan (10/11/2024 10:03 AM CDT): Continue home synthroid Assessment & Plan (10/10/2024 2:50 PM CDT): Continue home synthroid Assessment & Plan (10/09/2024 10:57 AM CDT): Continue home synthroid Assessment & Plan (10/08/2024 3:33 PM CDT): Continue home synthroid Assessment & Plan (10/07/2024 7:16 AM CDT): Continue home synthroid Migraines 10/07/2024 Assessment & Plan (10/22/2024 11:35 AM CDT): Sumatriptan prn Assessment & Plan (10/21/2024 4:45 PM CDT): Sumatriptan prn Assessment & Plan (10/20/2024 3:03 PM CDT): Sumatriptan prn Assessment & Plan (10/19/2024 9:31 AM CDT): Sumatriptan prn Assessment & Plan (10/18/2024 8:51 AM CDT): Sumatriptan prn Assessment & Plan (10/17/2024 1:19 PM CDT): Sumatriptan prn Assessment & Plan (10/16/2024 1:02 PM CDT): Sumatriptan prn Assessment & Plan (10/15/2024 10:10 AM CDT): Sumatriptan prn Assessment & Plan (10/14/2024 9:34 AM CDT): Sumatriptan prn Assessment & Plan (10/13/2024 5:52 PM CDT): Sumatriptan prn Assessment & Plan (10/12/2024 11:25 AM CDT): Sumatriptan prn Assessment & Plan (10/11/2024 10:03 AM CDT): Sumatriptan prn Assessment & Plan (10/10/2024 2:50 PM CDT): Sumatriptan prn Assessment & Plan (10/09/2024 10:57 AM CDT): Sumatriptan prn Assessment & Plan (10/08/2024 3:33 PM CDT): Sumatriptan prn Assessment & Plan (10/07/2024 7:16 AM CDT): Sumatriptan prn Insomnia 10/07/2024 Assessment & Plan (10/22/2024 11:35 AM CDT): Ambien nightly PRN Assessment & Plan (10/21/2024 4:45 PM CDT): Ambien nightly PRN Assessment & Plan (10/20/2024 3:03 PM CDT): Ambien nightly PRN Assessment & Plan (10/19/2024 9:31 AM CDT): Ambien nightly PRN Assessment & Plan (10/18/2024 8:51 AM CDT): Ambien nightly PRN Assessment & Plan (10/17/2024 1:19 PM CDT): Ambien nightly PRN Assessment & Plan (10/16/2024 1:02 PM CDT): Ambien nightly PRN Assessment & Plan (10/15/2024 10:10 AM CDT): Ambien nightly PRN Assessment & Plan (10/14/2024 9:34 AM CDT): Ambien nightly PRN Assessment & Plan (10/13/2024 5:52 PM CDT): Ambien nightly PRN Assessment & Plan (10/12/2024 11:25 AM CDT): Ambien nightly PRN Assessment & Plan (10/11/2024 10:03 AM CDT): Ambien nightly PRN Assessment & Plan (10/10/2024 2:50 PM CDT): Ambien nightly PRN Assessment & Plan (10/09/2024 10:57 AM CDT): Ambien nightly PRN Assessment & Plan (10/08/2024 3:33 PM CDT): Ambien nightly PRN Assessment & Plan (10/07/2024 7:16 AM CDT): Ambien nightly PRN Nausea and vomiting, unspecified vomiting type 0 10/06/2024 Assessment & Plan (10/08/2024 7:15 PM CDT): The patient is a 44 y.o. female history of colovesical fistula c/b recurrent UTI requiring multiple recent ICU admissions admitted on 10/06 from ED with fevers, chills, n/v and several days of worsened dysuria/flank pain. CTAP 10/06 with 2.3cm rim enhancing collection in area of fat stranding between sigmoid colon and bladder (colovesicular tract) and increased stranding around urinary bladder, symmetrically enhancing kidneys. Of note, had R ureteral stent placed 08/05 and L ureteral stent placed 08/12 with stone extraction, s/p b/l stent removal 08/28/24. R forearm wound sustained during prior admission not overtly infected on exam. 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 Recommendations: Agree with cefepime 2g IV q12h, linezolid 600mg po BID, and metronidazole 500mg BID (can change to po if tolerating po) Would continue with IV antibiotics as above until patient having more clinical improvement; on today's assessment relatively similar compared to presentation Sending tedizolid test script as anticipating possible need for longer outpatient antibiotic course and this will help avoid myelosuppressive effects of linezolid Appreciate GI and CRS evaluation, plan for outpatient c-scope/EGD when diverticulitis resolved prior to surgery for fistula; no surgical intervention this admission unless worsening perforation or septic shock Monitor CBC, CMP at minimum weekly on above IV regimen Staffed with ID attending, Dr. Guajardo. ID Team 2 will follow. Kandice Macias MD Infectious Diseases Fellow Today, I am treating the patient for genitourinary infection and UTI which can cause sepsis, septic shock, multiorgan dysfunction in the short-term future in the absence of appropriate treatment, as described in the note. Reviewed notes by Urology, CRS, GI to determine appropriate plan of care as in the note. Estimated Creatinine Clearance: 41.4 mL/min (A) (by Cockcroft-Gault based on SCr of 1.42 mg/dL (H)). - reviewed; antibiotics recommended above are dosed accordingly. The patient is being intensively monitored for antimicrobial toxicity from cefTRIAXone linezolid metroNIDAZOLE with the following tests: CBC with diff and CMP. Assessment & Plan (10/06/2024 6:55 PM CDT): The patient is a 44 y.o. female history of colovesical fistula c/b recurrent UTI requiring multiple recent ICU admissions admitted on 10/06 from ED with fevers, chills, n/v and several days of worsened dysuria/flank pain. CTAP 10/06 with 2.3cm rim enhancing collection in area of fat stranding between sigmoid colon and bladder (colovesicular tract) and increased stranding around urinary bladder, symmetrically enhancing kidneys. Of note, had R ureteral stent placed 08/05 and L ureteral stent placed 08/12 with stone extraction, s/p b/l stent removal 08/28/24. R forearm wound sustained during prior admission not overtly infected on exam. Recommendations: Agree with cefepime 2g IV q12h, linezolid 600mg po BID F/up urine culture (mcclelland exchanged prior in ED), will tailor antibiotics accordingly Given recurrent admissions for sepsis in setting of colovesical fistula, now with abscess in fistula tract, would recommend formal CRS consult versus expedited outpatient referral to ensure that she is established in clinic so that when risk factors for surgery are optimized she is able to proceed with definitive management of fistula - reports that she has lost 90lbs in last several months Monitor CBC, CMP at minimum weekly on above IV regimen Staffed with ID attending, Dr. Werner. ID Team 2 will follow. Kandice Macias MD Infectious Diseases Fellow Colovesical fistula c/b recurrent UTI 10/06/2024 Assessment & Plan (03/03/2025 7:32 AM CHEF): Patient has recurrent UTIs initially from colovesical fistula, s/p fistula take down 01/20/2025. Per CRS note on 02/18, colonic anastamosis intact with bladder leak on CT cystogram. Plan was for cystogram in near future to assess bladder leak. At this time, there was concern for UTI given pain and reported history of self- reinsertion of catheter at home - urine culture ordered (contamination with mixed krzysztof) and started Cipro x7d for empiric treatment. - In the ED, patient had significant pyuria on UA with symptoms of dysuria, frequency and urgency. She treated empirically with CTX and linezolid for this based on prior UTI susceptibilities while awaiting UCx (discontinued 02/25). - CRS was curbsided in the ED regarding cystourogram -- reasonable to perform inpatient and if there is a bladder leak, leave the mcclelland and retry when discharged. If no bladder leak, can do void trial and take down mcclelland. - Urine culture 02/24 with clinically insignificant growth final - [place] cystogram 02/25/25 with persistent bladder leak, urinary bladder thickening consistent with cystitis, partially imaged R kidney with possible pyelonephritis - Will finish 5 day course of CTX and Flagyl 02/28 Plan: - Mcclelland will remain in place until outpatient follow up - Outpatient follow up with CRS Assessment & Plan (03/02/2025 6:13 PM CHEF): Patient has recurrent UTIs initially from colovesical fistula, s/p fistula take down 01/20/2025. Per CRS note on 02/18, colonic anastamosis intact with bladder leak on CT cystogram. Plan was for cystogram in near future to assess bladder leak. At this time, there was concern for UTI given pain and reported history of self- reinsertion of catheter at home - urine culture ordered (contamination with mixed krzysztof) and started Cipro x7d for empiric treatment. - In the ED, patient had significant pyuria on UA with symptoms of dysuria, frequency and urgency. She treated empirically with CTX and linezolid for this based on prior UTI susceptibilities while awaiting UCx (discontinued 02/25). - CRS was curbsided in the ED regarding cystourogram -- reasonable to perform inpatient and if there is a bladder leak, leave the mcclelland and retry when discharged. If no bladder leak, can do void trial and take down mcclelland. - Urine culture 02/24 with clinically insignificant growth final - [place] cystogram 02/25/25 with persistent bladder leak, urinary bladder thickening consistent with cystitis, partially imaged R kidney with possible pyelonephritis - Will finish 5 day course of CTX and Flagyl 02/28 Plan: - Mcclelland will remain in place until outpatient follow up - Outpatient follow up with CRS Assessment & Plan (03/01/2025 6:18 AM CHEF): Patient has recurrent UTIs initially from colovesical fistula, s/p fistula take down 01/20/2025. Per CRS note on 02/18, colonic anastamosis intact with bladder leak on CT cystogram. Plan was for cystogram in near future to assess bladder leak. At this time, there was concern for UTI given pain and reported history of self- reinsertion of catheter at home - urine culture ordered (contamination with mixed krzysztof) and started Cipro x7d for empiric treatment. - In the ED, patient had significant pyuria on UA with symptoms of dysuria, frequency and urgency. She treated empirically with CTX and linezolid for this based on prior UTI susceptibilities while awaiting UCx (discontinued 02/25). - CRS was curbsided in the ED regarding cystourogram -- reasonable to perform inpatient and if there is a bladder leak, leave the mcclelland and retry when discharged. If no bladder leak, can do void trial and take down mcclelland. - Urine culture 02/24 with clinically insignificant growth final - [place] cystogram 02/25/25 with persistent bladder leak, urinary bladder thickening consistent with cystitis, partially imaged R kidney with possible pyelonephritis - Will finish 5 day course of CTX and Flagyl 02/28 Plan: - Mcclelland will remain in place until outpatient follow up Assessment & Plan (02/28/2025 10:54 AM CHEF): Patient has recurrent UTIs initially from colovesical fistula, s/p fistula take down 01/20/2025. Per CRS note on 02/18, colonic anastamosis intact with bladder leak on CT cystogram. Plan was for cystogram in near future to assess bladder leak. At this time, there was concern for UTI given pain and reported history of self- reinsertion of catheter at home - urine culture ordered (contamination with mixed krzysztof) and started Cipro x7d for empiric treatment. - In the ED, patient had significant pyuria on UA with symptoms of dysuria, frequency and urgency. She treated empirically with CTX and linezolid for this based on prior UTI susceptibilities while awaiting UCx (discontinued 02/25). - CRS was curbsided in the ED regarding cystourogram -- reasonable to perform inpatient and if there is a bladder leak, leave the mcclelland and retry when discharged. If no bladder leak, can do void trial and take down mcclelland. - Urine culture 02/24 with clinically insignificant growth final - [place] cystogram 02/25/25 with persistent bladder leak, urinary bladder thickening consistent with cystitis, partially imaged R kidney with possible pyelonephritis - Will finish 5 day course of CTX and Flagyl 02/28 Plan: - Mcclelland will remain in place until outpatient follow up Assessment & Plan (02/27/2025 10:08 AM CHEF): Patient has recurrent UTIs initially from colovesical fistula, s/p fistula take down 01/20/2025. Per CRS note on 02/18, colonic anastamosis intact with bladder leak on CT cystogram. Plan was for cystogram in near future to assess bladder leak. At this time, there was concern for UTI given pain and reported history of self- reinsertion of catheter at home - urine culture ordered (contamination with mixed krzysztof) and started Cipro x7d for empiric treatment. - In the ED, patient had significant pyuria on UA with symptoms of dysuria, frequency and urgency. She treated empirically with CTX and linezolid for this based on prior UTI susceptibilities while awaiting UCx (discontinued 02/25). - CRS was curbsided in the ED regarding cystourogram -- reasonable to perform inpatient and if there is a bladder leak, leave the mcclelland and retry when discharged. If no bladder leak, can do void trial and take down mcclelland. - Urine culture 02/24 with clinically insignificant growth final - FL cystogram 02/25/25 with persistent bladder leak, urinary bladder thickening consistent with cystitis, partially imaged R kidney with possible pyelonephritis Plan: - Discontinue linezolid given negative urine culture - Continue CTX and Flagyl (for diverticulitis below) which would cover urinary concerns and pyelonephritis as well - Mcclelland will remain in place until outpatient follow up Assessment & Plan (02/26/2025 7:14 AM CHEF): Patient has recurrent UTIs initially from colovesical fistula, s/p fistula take down 01/20/2025. Per CRS note on 02/18, colonic anastamosis intact with bladder leak on CT cystogram. Plan was for cystogram in near future to assess bladder leak. At this time, there was concern for UTI given pain and reported history of self- reinsertion of catheter at home - urine culture ordered (contamination with mixed krzysztof) and started Cipro x7d for empiric treatment. - In the ED, patient had significant pyuria on UA with symptoms of dysuria, frequency and urgency. She treated empirically with CTX and linezolid for this based on prior UTI susceptibilities while awaiting UCx (discontinued 02/25). - CRS was curbsided in the ED regarding cystourogram -- reasonable to perform inpatient and if there is a bladder leak, leave the mcclelland and retry when discharged. If no bladder leak, can do void trial and take down mcclelland. - Urine culture 02/24 with clinically insignificant growth PLAN: - Discontinue linezolid given negative urine culture - Continue CTX and Flagyl (for diverticulitis below) which would cover urinary concerns as well - [place] cystogram ordered Assessment & Plan (02/25/2025 12:52 PM CHEF): Patient has recurrent UTIs initially from colovesical fistula, s/p fistula take down 01/20/2025. Per CRS note on 02/18, colonic anastamosis intact with bladder leak on CT cystogram. Plan was for cystogram in near future to assess bladder leak. At this time, there was concern for UTI given pain and reported history of self- reinsertion of catheter at home - urine culture ordered (contamination with mixed krzysztof) and started Cipro x7d for empiric treatment. - In the ED, patient had significant pyuria on UA with symptoms of dysuria, frequency and urgency. She treated empirically with CTX and linezolid for this based on prior UTI susceptibilities while awaiting UCx (discontinued 02/25). - CRS was curbsided in the ED regarding cystourogram -- reasonable to perform inpatient and if there is a bladder leak, leave the mcclelland and retry when discharged. If no bladder leak, can do void trial and take down mcclelland. - Urine culture 02/24 with clinically insignificant growth PLAN: - Discontinue linezolid given negative urine culture - Continue CTX and Flagyl (for diverticulitis below) which would cover urinary concerns as well - [place] cystogram ordered Assessment & Plan (02/24/2025 1:45 PM CHEF): Recurrent UTIs initially from colovesical fistula, s/p fistula take down 01/20/2025. Per CRS note on 02/18, colonic anastamosis intact with bladder leak on CT cystogram. Plan was for cystogram in near future to assess bladder leak. - Pt this admission has significant pyuria on UA with symptoms of dysuria, frequency and urgency; will treat based on this. - Curbsided CRS regarding cystourogram; reasonable to perform inpatient and if there is a bladder leak, leave the mcclelland and retry when discharged. If no bladder leak, can do void trial and take down mcclelland. PLAN: - cont ceftriaxone 1 g q24h (02/24-), linezolid 600 mg (02/24-) since pt has grown both E coli and E faecalis susceptible to linezolid in the past - [place] cystogram ordered Assessment & Plan (10/22/2024 9:14 PM CDT): Recurrent episodes of diverticulitis c/b colocolonic and colovesical fistulae, leading to recurrent UTIs. CT AP found acute on chronic diverticulitis w/ new 2cm fluid collection near the colon c/f abscess. IR consulted with no indication currently for drainage given size. Discussed case with colorectal surgery on 10/15, plan for suppressive antibiotics with colonoscopy in 5-6 weeks, followed by surgical management. They recommended NPO with TPN to reduce stool burden through fistula to help minimize pain. Surgery will continue to follow. WBC down trending to 8.92 on 10/21. - ID, colorectal surgery, GI following - GI recs waiting to perform colonoscopy until acute diverticulitis resolves - Colorectal surgery to f/u with pt in outpatient setting - [facility] approved Tidezolid - pt able to be D/C - Abx: /125mg BID, tidezolid 200mg PO daily, likely until surgery. - Pain management: Tylenol 650 mg q6h. Oxy 10 q6h PRN - CLD with TPN Assessment & Plan (10/21/2024 6:17 PM CDT): Recurrent episodes of diverticulitis c/b colocolonic and colovesical fistulae, leading to recurrent UTIs. CT AP found acute on chronic diverticulitis w/ new 2cm fluid collection near the colon c/f abscess. IR consulted with no indication currently for drainage given size. Discussed case with colorectal surgery on 10/15, plan for suppressive antibiotics with colonoscopy in 5-6 weeks, followed by surgical management. They recommended NPO with TPN to reduce stool burden through fistula to help minimize pain. Surgery will continue to follow. WBC down trending to 8.92 on 10/21. - ID, colorectal surgery, GI following - GI recs waiting to perform colonoscopy until acute diverticulitis resolves - Colorectal surgery to f/u with pt in outpatient setting - Pharmacy unable to approve Tidezolid outpatient - pt will remain in hospital overnight Plan: - CTM WBC - Abx: [id number]/125mg BID, tidezolid 200mg PO daily, likely until surgery. - Pain management: Tylenol 650 mg q6h. 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 CT AP found acute on chronic diverticulitis w/ new 2cm fluid collection near the colon c/f abscess. IR consulted with no indication currently for drainage given size. Discussed case with colorectal surgery on 10/15, plan for suppressive antibiotics with colonoscopy in 5-6 weeks, followed by surgical management. They recommended NPO with TPN to reduce stool burden through fistula to help minimize pain. Surgery will continue to follow. WBC elevated to 10.52 on 10/19 - ID, colorectal surgery, GI following Plan: - CTM WBC - Abx: [id number]/125mg BID, tidezolid 200mg PO daily, likely until surgery. 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 CT AP found acute on chronic diverticulitis w/ new 2cm fluid collection near the colon c/f abscess. IR consulted with no indication currently for drainage given size. Discussed case with colorectal surgery on 10/15, plan for suppressive antibiotics with colonoscopy in 5-6 weeks, followed by surgical management. They recommended NPO with TPN to reduce stool burden through fistula to help minimize pain. Surgery will continue to follow. WBC elevated to 10.52 on 10/19 - ID, colorectal surgery, GI following Plan: - CTM WBC - Abx: [id number]/125mg BID, tidezolid 200mg PO daily, likely until surgery. - Pain management: Oxy 10 q4h PRN, stop dilaudid - CLD with TPN Assessment & Plan (10/18/2024 8:51 AM CDT): Recurrent episodes of diverticulitis c/b colocolonic and colovesical fistulae, leading to recurrent UTIs. CT AP found acute on chronic diverticulitis w/ new 2cm fluid collection near the colon c/f abscess. IR consulted with no indication currently for drainage given size. Discussed case with colorectal surgery on 10/15, plan for suppressive antibiotics with colonoscopy in 5-6 weeks, followed by surgical management. They recommended NPO with TPN to reduce stool burden through fistula to help minimize pain. Surgery will continue to follow - ID, colorectal surgery, GI following Plan: - Abx: [id number]/125mg BID, tidezolid 200mg PO daily, likely until surgery. 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 CT AP found acute on chronic diverticulitis w/ new 2cm fluid collection near the colon c/f abscess. IR consulted with no indication currently for drainage given size. Discussed case with colorectal surgery on 10/15, plan for suppressive antibiotics with colonoscopy in 5-6 weeks, followed by surgical management. They recommended NPO with TPN to reduce stool burden through fistula to help minimize pain. Surgery will continue to follow - ID, colorectal surgery, GI following Plan: - Abx: [id number]/125mg BID, tidezolid 200mg PO daily, likely until surgery. - Pain management: Oxy 10 q4h PRN, stop dilaudid Assessment & Plan (10/17/2024 4:00 PM CDT): The patient is a 44 y.o. female history of colovesical fistula c/b recurrent UTI requiring multiple recent ICU admissions admitted on 10/06 from ED with fevers, chills, n/v and several days of worsened dysuria/flank pain. CTAP 10/06 with 2.3cm rim enhancing collection in area of fat stranding between sigmoid colon and bladder (colovesicular tract) and increased stranding around urinary bladder, symmetrically enhancing kidneys. Of note, had R ureteral stent placed 08/05 and L ureteral stent placed 08/12 with stone extraction, s/p b/l stent removal 08/28/24. R forearm wound sustained during prior admission not overtly infected on exam. 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 Started on cefepime/linezolid/metronidazole 10/06-10/10. Transitioned to Augmentin/tedizolid 10/11. Extensive discussion with Colon& Rectal Surgery regarding surgical intervention. Recommendations: Continue amoxicillin-clavulanate 875-125mg po BID + tedizolid 200mg po daily Initial plan was for 2 weeks from 10/06 with repeat imaging to assess for interval resolution of fistula tract abscess. Surgical planning underway by Colon & Rectal surgery; OK to continue PO antibiotics through surgery. Please engage ID during future surgical hospitalization to help define course of antibiotics Patient's insurance is contracted with ID clinic Case discussed and plan of care formulated with Dr. Watkins as above ID will follow peripherally on the monitor list PENELOPE Guerra, Team 2 Infectious Disease HUMAN RESOURCE ADVISOR Please contact the Team 2 ID HUMAN RESOURCE ADVISOR M-W & F, [phone] via chat or phone at [phone] or the ID team 2 fellow at the phone numbers in care team with any questions or concerns. Contact the ID team 2 fellow on After hours, please contact the ID fellow physical education specialist [phone] Today, I am treating the patient for genitourinary infection and UTI which can cause sepsis, septic shock, multiorgan dysfunction in the short-term future in the absence of appropriate treatment, as described in the note. Reviewed notes by Urology, CRS, GI to determine appropriate plan of care as in the note. Estimated Creatinine Clearance: 46.3 mL/min (A) (by Cockcroft-Gault based on SCr of 1.42 mg/dL (H)). - reviewed; antibiotics recommended above are dosed accordingly. The patient is being intensively monitored for antimicrobial toxicity from Augmentin/Tedizolid metroNIDAZOLE with the following tests: CBC with diff and CMP. Assessment & Plan (10/16/2024 1:02 PM CDT): Recurrent episodes of diverticulitis c/b colocolonic and colovesical fistulae, leading to recurrent UTIs. CT AP found acute on chronic diverticulitis w/ new 2cm fluid collection near the colon c/f abscess. IR consulted with no indication currently for drainage given size. Discussed case with colorectal surgery on 10/15, plan for suppressive antibiotics with colonoscopy in 5-6 weeks, followed by surgical management. They recommended NPO with TPN to reduce stool burden through fistula to help minimize pain. Surgery will continue to follow - ID, colorectal surgery, GI following Plan: - Abx: /125mg BID, tidezolid 200mg PO daily, likely until surgery. - Pain management: Oxy 10 q4h PRN, stop dilaudid Assessment & Plan (10/15/2024 10:10 AM CDT): Recurrent episodes of diverticulitis c/b colocolonic and colovesical fistulae, leading to recurrent UTIs. CT AP found acute on chronic diverticulitis w/ new 2cm fluid collection near the colon c/f abscess. IR consulted with no indication currently for drainage given size. - Given her complicated course, and prolonged hospital admission due to complications of the colovesical fistula we will plan for a multidisciplinary meeting involving colorectal surgery ID and GI to decide what the best plan to move forward since she has a very high risk surgical candidate, but she is also unlikely to get infection control if the fistula is not addressed. Meeting tentatively planned for 10/15/2024 Noon. - ID, colorectal surgery, GI following, - Abx: [id number]/125mg BID, tidezolid 200mg PO daily end date to be discussed pending multidisciplinary meeting. 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 CT AP found acute on chronic diverticulitis w/ new 2cm fluid collection near the colon c/f abscess. IR consulted with no indication currently for drainage given size. - Given her complicated course, and prolonged hospital admission due to complications of the colovesical fistula we will plan for a multidisciplinary meeting involving colorectal surgery ID and GI to decide what the best plan to move forward since she has a very high risk surgical candidate, but she is also unlikely to get infection control if the fistula is not addressed. Meeting tentatively planned for 10/15/2024 Noon. - ID, colorectal surgery, GI following, - Abx: bactrim 875/125mg BID, tidezolid 200mg PO daily end date to be discussed pending multidisciplinary meeting. - Pain management: Oxy 10 q4h PRN Assessment & Plan (10/13/2024 5:52 PM CDT): Recurrent episodes of diverticulitis c/b colocolonic and colovesical fistulae, leading to recurrent UTIs. CT AP found acute on chronic diverticulitis w/ new 2cm fluid collection near the colon c/f abscess. IR consulted with no indication currently for drainage given size. - Given her complicated course, and prolonged hospital admission due to complications of the colovesical fistula we will plan for a multidisciplinary meeting involving colorectal surgery ID and GI to decide what the best plan to move forward since she has a very high risk surgical candidate, but she is also unlikely to get infection control if the fistula is not addressed. Meeting tentatively planned for 10/15/2024 Noon. - ID, colorectal surgery, GI following, - Abx: bactrim 875/125mg BID, tidezolid 200mg PO daily end date to be discussed pending multidisciplinary meeting. - Pain management: xy 10 q4h PRN Assessment & Plan (10/09/2024 4:34 PM CDT): The patient is a 44 y.o. female history of colovesical fistula c/b recurrent UTI requiring multiple recent ICU admissions admitted on 10/06 from ED with fevers, chills, n/v and several days of worsened dysuria/flank pain. CTAP 10/06 with 2.3cm rim enhancing collection in area of fat stranding between sigmoid colon and bladder (colovesicular tract) and increased stranding around urinary bladder, symmetrically enhancing kidneys. Of note, had R ureteral stent placed 08/05 and L ureteral stent placed 08/12 with stone extraction, s/p b/l stent removal 08/28/24. R forearm wound sustained during prior admission not overtly infected on exam. 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 Started on cefepime/linezolid/metronidazole 10/06-current. Changed from cefepime to ceftriaxone on 10/09 by primary team. Recommendations: Agree with ceftriaxone 1g IV q24h, linezolid 600mg po BID, and metronidazole 500mg BID (would change to po if tolerating) Sent tedizolid test script as anticipating possible need for longer outpatient antibiotic course and this will help avoid myelosuppressive effects of linezolid Would continue above regimen until patient is feeling clinically improved at which time, plan for amoxicillin-clavulanate 875-125mg po BID (CrCl nearing 30 at which point would need renal adjustment) + tedizolid 200mg po daily Duration 2 weeks from 10/06 with repeat imaging to assess for interval resolution of fistula tract abscess to determine whether or not continuation of antibiotic therapy is warranted Plan for outpatient c-scope/EGD when diverticulitis resolved prior to surgery for fistula; no surgical intervention this admission unless worsening perforation or septic shock Monitor CBC, CMP at minimum weekly on above IV regimen Patient's insurance is contracted with ID clinic Staffed with ID attending, Dr. Guajardo. ID Team 2 will follow peripherally. Kandice Macias MD Infectious Diseases Fellow Today, I am treating the patient for genitourinary infection and UTI which can cause sepsis, septic shock, multiorgan dysfunction in the short-term future in the absence of appropriate treatment, as described in the note. Reviewed notes by Urology, CRS, GI to determine appropriate plan of care as in the note. Estimated Creatinine Clearance: 41.4 mL/min (A) (by Cockcroft-Gault based on SCr of 1.42 mg/dL (H)). - reviewed; antibiotics recommended above are dosed accordingly. The patient is being intensively monitored for antimicrobial toxicity from cefTRIAXone linezolid metroNIDAZOLE with the following tests: CBC with diff and CMP. Assessment & Plan (10/08/2024 7:15 PM CDT): The patient is a 44 y.o. female history of colovesical fistula c/b recurrent UTI requiring multiple recent ICU admissions admitted on 10/06 from ED with fevers, chills, n/v and several days of worsened dysuria/flank pain. CTAP 10/06 with 2.3cm rim enhancing collection in area of fat stranding between sigmoid colon and bladder (colovesicular tract) and increased stranding around urinary bladder, symmetrically enhancing kidneys. Of note, had R ureteral stent placed 08/05 and L ureteral stent placed 08/12 with stone extraction, s/p b/l stent removal 08/28/24. R forearm wound sustained during prior admission not overtly infected on exam. 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 Recommendations: Agree with cefepime 2g IV q12h, linezolid 600mg po BID, and metronidazole 500mg BID (can change to po if tolerating po) Would continue with IV antibiotics as above until patient having more clinical improvement; on today's assessment relatively similar compared to presentation Sending tedizolid test script as anticipating possible need for longer outpatient antibiotic course and this will help avoid myelosuppressive effects of linezolid Appreciate GI and CRS evaluation, plan for outpatient c-scope/EGD when diverticulitis resolved prior to surgery for fistula; no surgical intervention this admission unless worsening perforation or septic shock Monitor CBC, CMP at minimum weekly on above IV regimen Staffed with ID attending, Dr. Guajardo. ID Team 2 will follow. Kandice Macias MD Infectious Diseases Fellow Today, I am treating the patient for genitourinary infection and UTI which can cause sepsis, septic shock, multiorgan dysfunction in the short-term future in the absence of appropriate treatment, as described in the note. Reviewed notes by Urology, CRS, GI to determine appropriate plan of care as in the note. Estimated Creatinine Clearance: 41.4 mL/min (A) (by Cockcroft-Gault based on SCr of 1.42 mg/dL (H)). - reviewed; antibiotics recommended above are dosed accordingly. The patient is being intensively monitored for antimicrobial toxicity from cefTRIAXone linezolid metroNIDAZOLE with the following tests: CBC with diff and CMP. Assessment & Plan (10/06/2024 6:55 PM CDT): The patient is a 44 y.o. female history of colovesical fistula c/b recurrent UTI requiring multiple recent ICU admissions admitted on 10/06 from ED with fevers, chills, n/v and several days of worsened dysuria/flank pain. CTAP 10/06 with 2.3cm rim enhancing collection in area of fat stranding between sigmoid colon and bladder (colovesicular tract) and increased stranding around urinary bladder, symmetrically enhancing kidneys. Of note, had R ureteral stent placed 08/05 and L ureteral stent placed 08/12 with stone extraction, s/p b/l stent removal 08/28/24. R forearm wound sustained during prior admission not overtly infected on exam. Recommendations: Agree with cefepime 2g IV q12h, linezolid 600mg po BID F/up urine culture (mcclelland exchanged prior in ED), will tailor antibiotics accordingly Given recurrent admissions for sepsis in setting of colovesical fistula, now with abscess in fistula tract, would recommend formal CRS consult versus expedited outpatient referral to ensure that she is established in clinic so that when risk factors for surgery are optimized she is able to proceed with definitive management of fistula - reports that she has lost 90lbs in last several months Monitor CBC, CMP at minimum weekly on above IV regimen Staffed with ID attending, Dr. Werner. ID Team 2 will follow. Kandice Macias MD Infectious Diseases Fellow Abscess in colovesical fistula tract 10/06/2024 Assessment & Plan (12/14/2024 4:37 PM CDT): Etiology: Recurrent UTIs 2/2 colovesical fistula suspected 2/2 recurrent diverticulitis. Admitted on 10/30 iso fever, N/V, increasing abdominal pain. Has been hospitalized 3x since June for similar issues. 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 09/14-09/29: presented for abdominal pain, CT showed sequela of colocolonic fistulae 2/2 complicated diverticulitis. 10/06-10/22 presented for n/v, CT showed acute on chronic diverticulitis with increased inflammation around bladder and sigmoid colon. Imaging this admission: CT abdomen (10/30) showed no new changes. No acute diverticulitis. Given that CRS (10/15) note mentioned that intervention would not be possible during a diverticulitis flare, GI consulted to bill. EGD/ [place] done on 11/03. EGD unremarkable, colonoscopy showed moderate diverticulosis, extrinsic colonic narrowing a/w diverticular opening (fistula not seen). Exam was otherwise normal. Okay to proceed with CRS surgery per GI. Work-up: -UA with 3+ leukocyte esterase, 4+ bacteria. Last urine culture 09/25 showed enterococcus faecium only susceptible to linezolid -CT bilateral femur: no abscess or osteoarthritis. -Urine cx contaminated -10/31 blood cx NGTD Abx: S/p Augmentin (10/30-10/21); Unasyn IV (11/01- 11/05); zosyn 4.5mg IV (11/05- present) + linezolid IV (was home med-present) Plan: - Planned for CRS interventions today sigmoidectomy + colovesicular fistula taken down with primary anastomosis to reduce significant morbidity anticipated with end colostomy vs emergent sigmoidectomy and end colostomy without option for reversal for an extended period of time and until significant weight loss achieved. > Patient will be transferred to CRS care post op. -ID following, recs appreciated -Pain regimen: tylenol 1 g tid scheduled, oxycodone, dilaudid. Also has home gabapentin, oxybutynin, topamax, robaxin continued. Pain management consulted, per their recommendation, adjusted robaxin and gabapentin dosage. Pain team had added amitriptyline which was discontinued on 11/07 for risk of serotonin syndrome w simultaneous use of escitalopram, amitriptyline and linezolid. -Continue TPN due to stool frequently blocking mcclelland during previous hospital stay. Clear liquid diet. -Mcclelland changed 10/30; if repeat UA/ UCx needed will need to be switched to obtain sample. - Increasing acidosis noted on labs as of 11/08, will hold sodium thiosulfate, sepsis workup unrevealing and pt continues to be stable at this time. Bicarb stable as well, will CTM and plan to resume sodium thiosulfate post-OP. 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 Admitted on 10/30 iso fever, N/V, increasing abdominal pain. Has been hospitalized 3x since June for similar issues. 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 09/14-09/29: presented for abdominal pain, CT showed sequela of colocolonic fistulae 2/2 complicated diverticulitis. 10/06-10/22 presented for n/v, CT showed acute on chronic diverticulitis with increased inflammation around bladder and sigmoid colon. Imaging this admission: CT abdomen (10/30) showed no new changes. No acute diverticulitis. Given that CRS (10/15) note mentioned that intervention would not be possible during a diverticulitis flare, GI consulted to bill. EGD/ [place] done on 11/03. EGD unremarkable, colonoscopy showed moderate diverticulosis, extrinsic colonic narrowing a/w diverticular opening (fistula not seen). Exam was otherwise normal. Okay to proceed with CRS surgery per GI. Work-up: -UA with 3+ leukocyte esterase, 4+ bacteria. Last urine culture 09/25 showed enterococcus faecium only susceptible to linezolid -CT bilateral femur: no abscess or osteoarthritis. -Urine cx contaminated -10/31 blood cx NGTD Abx: S/p Augmentin (10/30-10/21); Unasyn IV (11/01- 11/05); zosyn 4.5mg IV (11/05- present) + linezolid IV (was home med-present) Plan: - Planned for CRS interventions today sigmoidectomy + colovesicular fistula taken down with primary anastomosis to reduce significant morbidity anticipated with end colostomy vs emergent sigmoidectomy and end colostomy without option for reversal for an extended period of time and until significant weight loss achieved. > Patient will be transferred to CRS care post op. -ID following, recs appreciated -Pain regimen: tylenol 1 g tid scheduled, oxycodone, dilaudid. Also has home gabapentin, oxybutynin, topamax, robaxin continued. Pain management consulted, per their recommendation, adjusted robaxin and gabapentin dosage. Pain team had added amitriptyline which was discontinued on 11/07 for risk of serotonin syndrome w simultaneous use of escitalopram, amitriptyline and linezolid. -Continue TPN due to stool frequently blocking mcclelland during previous hospital stay. Clear liquid diet. -Mcclelland changed 10/30; if repeat UA/ UCx needed will need to be switched to obtain sample. - Increasing acidosis noted on labs as of 11/08, will hold sodium thiosulfate, sepsis workup unrevealing and pt continues to be stable at this time. Bicarb stable as well, will CTM and plan to resume sodium thiosulfate post-OP. 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 Admitted on 10/30 iso fever, N/V, increasing abdominal pain. Has been hospitalized 3x since June for similar issues. 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 09/14-09/29: presented for abdominal pain, CT showed sequela of colocolonic fistulae 2/2 complicated diverticulitis. 10/06-10/22 presented for n/v, CT showed acute on chronic diverticulitis with increased inflammation around bladder and sigmoid colon. Imaging this admission: CT abdomen (10/30) showed no new changes. No acute diverticulitis. Given that CRS (10/15) note mentioned that intervention would not be possible during a diverticulitis flare, GI consulted to bill. EGD/ [place] done on 11/03. EGD unremarkable, colonoscopy showed moderate diverticulosis, extrinsic colonic narrowing a/w diverticular opening (fistula not seen). Exam was otherwise normal. Okay to proceed with CRS surgery per GI. Potential CRS interventions: sigmoidectomy + colovesicular fistula taken down with primary anastomosis to reduce significant morbidity anticipated with end colostomy vs emergent sigmoidectomy and end colostomy without option for reversal for an extended period of time and until significant weight loss achieved. Since prior admit, pt has achieved ~100 lb weight loss. CRS re-engaged this admit. Work-up: -UA with 3+ leukocyte esterase, 4+ bacteria. Last urine culture 09/25 showed enterococcus faecium only susceptible to linezolid -CT bilateral femur: no abscess or osteoarthritis. -Urine cx contaminated -10/31 blood cx NGTD Abx: S/p Augmentin (10/30-10/21); Unasyn IV (11/01- 11/05); zosyn 4.5mg IV (11/05- present) + linezolid IV (was home med-present) Plan: -CRS planning for surgery on 11/11; NPO after MN on 11/11; will continue CLD and TPN until the night prior to sx. TPN can continue till the day of. Continue abx as above. Consulted inpatient anesthesia and wound ostomy for ostomy site marking per their request. PreOP abx ordered by CRS. -ID following, recs appreciated -Pain regimen: tylenol 1 g tid scheduled, oxycodone, dilaudid. Also has home gabapentin, oxybutynin, topamax, robaxin continued. Pain management consulted, per their recommendation, adjusted robaxin and gabapentin dosage. Pain team had added amitriptyline which was discontinued on 11/07 for risk of serotonin syndrome w simultaneous use of escitalopram, amitriptyline and linezolid. -Continue TPN due to stool frequently blocking mcclelland during previous hospital stay. Clear liquid diet. -Mcclelland changed 10/30; if repeat UA/ UCx needed will need to be switched to obtain sample. - Increasing acidosis noted on labs as of 11/08, will hold sodium thiosulfate, sepsis workup unrevealing and pt continues to be stable at this time. Bicarb stable as well, will CTM and plan to resume sodium thiosulfate post-OP. 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 Admitted on 10/30 iso fever, N/V, increasing abdominal pain. Has been hospitalized 3x since June for similar issues. 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 09/14-09/29: presented for abdominal pain, CT showed sequela of colocolonic fistulae 2/2 complicated diverticulitis. 10/06-10/22 presented for n/v, CT showed acute on chronic diverticulitis with increased inflammation around bladder and sigmoid colon. Imaging this admission: CT abdomen (10/30) showed no new changes. No acute diverticulitis. Given that CRS (10/15) note mentioned that intervention would not be possible during a diverticulitis flare, GI consulted to bill. EGD/ [place] done on 11/03. EGD unremarkable, colonoscopy showed moderate diverticulosis, extrinsic colonic narrowing a/w diverticular opening (fistula not seen). Exam was otherwise normal. Okay to proceed with CRS surgery per GI. Potential CRS interventions: sigmoidectomy + colovesicular fistula taken down with primary anastomosis to reduce significant morbidity anticipated with end colostomy vs emergent sigmoidectomy and end colostomy without option for reversal for an extended period of time and until significant weight loss achieved. Since prior admit, pt has achieved ~100 lb weight loss. CRS re-engaged this admit. Work-up: -UA with 3+ leukocyte esterase, 4+ bacteria. Last urine culture 09/25 showed enterococcus faecium only susceptible to linezolid -CT bilateral femur: no abscess or osteoarthritis. -Urine cx contaminated -10/31 blood cx NGTD Abx: S/p Augmentin (10/30-10/21); Unasyn IV (11/01- 11/05); zosyn 4.5mg IV (11/05- present) + linezolid IV (was home med-present) Plan: -CRS planning for surgery on 11/11; NPO after MN on 11/11; will continue CLD and TPN until the night prior to sx. Continue abx as above. Consulted inpatient anesthesia and wound ostomy for ostomy site marking per their request. PreOP abx ordered by CRS. -ID following, recs appreciated -Pain regimen: tylenol 1 g tid scheduled, oxycodone, dilaudid. Also has home gabapentin, oxybutynin, topamax, robaxin continued. Pain management consulted, per their recommendation, adjusted robaxin and gabapentin dosage. Pain team had added amitriptyline which was discontinued on 11/07 for risk of serotonin syndrome w simultaneous use of escitalopram, amitriptyline and linezolid. -Continue TPN due to stool frequently blocking mcclelland during previous hospital stay. Clear liquid diet. -Mcclelland changed 10/30; if repeat UA/ UCx needed will need to be switched to obtain sample. - Increasing acidosis noted on labs as of 11/08, will hold sodium thiosulfate, sepsis workup unrevealing and pt continues to be stable at this time. Bicarb stable as well, will CTM and plan to resume sodium thiosulfate post-OP. 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 Admitted on 10/30 iso fever, N/V, increasing abdominal pain. Has been hospitalized 3x since June for similar issues. 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 09/14-09/29: presented for abdominal pain, CT showed sequela of colocolonic fistulae 2/2 complicated diverticulitis. 10/06-10/22 presented for n/v, CT showed acute on chronic diverticulitis with increased inflammation around bladder and sigmoid colon. Imaging this admission: CT abdomen (10/30) showed no new changes. No acute diverticulitis. Given that CRS (10/15) note mentioned that intervention would not be possible during a diverticulitis flare, GI consulted to bill. EGD/ [place] done on 11/03. EGD unremarkable, colonoscopy showed moderate diverticulosis, extrinsic colonic narrowing a/w diverticular opening (fistula not seen). Exam was otherwise normal. Okay to proceed with CRS surgery per GI. Potential CRS interventions: sigmoidectomy + colovesicular fistula taken down with primary anastomosis to reduce significant morbidity anticipated with end colostomy vs emergent sigmoidectomy and end colostomy without option for reversal for an extended period of time and until significant weight loss achieved. Since prior admit, pt has achieved ~100 lb weight loss. CRS re-engaged this admit. Work-up: -UA with 3+ leukocyte esterase, 4+ bacteria. Last urine culture 09/25 showed enterococcus faecium only susceptible to linezolid -CT bilateral femur: no abscess or osteoarthritis. -Urine cx contaminated -10/31 blood cx NGTD Abx: S/p Augmentin (10/30-10/21); Unasyn IV (11/01- 11/05); zosyn 4.5mg IV (11/05- present) + linezolid IV (was home med-present) Plan: -CRS planning for surgery on 11/11; NPO after MN on 11/11; will continue CLD and TPN until the night prior to sx. Continue abx as above. Consulted inpatient anesthesia and wound ostomy for ostomy site marking per their request. -ID following, recs appreciated -Pain regimen: tylenol 1 g tid scheduled, oxycodone, dilaudid. Also has home gabapentin, oxybutynin, topamax, robaxin continued. Pain management consulted, per their recommendation, adjusted robaxin and gabapentin dosage. Pain team had added amitriptyline which was discontinued on 11/07 for risk of serotonin syndrome w simultaneous use of escitalopram, amitriptyline and linezolid. -Continue TPN due to stool frequently blocking mcclelland during previous hospital stay. Clear liquid diet. -Mcclelland changed 10/30; if repeat UA/ UCx needed will need to be switched to obtain sample. - Increasing acidosis noted on labs as of 11/08, will discontinue sodium thiosulfate and pursue sepsis workup including BCx and RUQ US. 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 Admitted on 10/30 iso fever, N/V, increasing abdominal pain. Has been hospitalized 3x since June for similar issues. 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 09/14-09/29: presented for abdominal pain, CT showed sequela of colocolonic fistulae 2/2 complicated diverticulitis. 10/06-10/22 presented for n/v, CT showed acute on chronic diverticulitis with increased inflammation around bladder and sigmoid colon. Imaging this admission: CT abdomen (10/30) showed no new changes. No acute diverticulitis. Given that CRS (10/15) note mentioned that intervention would not be possible during a diverticulitis flare, GI consulted to bill. EGD/ [place] done on 11/03. EGD unremarkable, colonoscopy showed moderate diverticulosis, extrinsic colonic narrowing a/w diverticular opening (fistula not seen). Exam was otherwise normal. Okay to proceed with CRS surgery per GI. Potential CRS interventions: sigmoidectomy + colovesicular fistula taken down with primary anastomosis to reduce significant morbidity anticipated with end colostomy vs emergent sigmoidectomy and end colostomy without option for reversal for an extended period of time and until significant weight loss achieved. Since prior admit, pt has achieved ~100 lb weight loss. CRS re-engaged this admit. Work-up: -UA with 3+ leukocyte esterase, 4+ bacteria. Last urine culture 09/25 showed enterococcus faecium only susceptible to linezolid -CT bilateral femur: no abscess or osteoarthritis. -Urine cx contaminated -10/31 blood cx NGTD Abx: S/p Augmentin (10/30-10/21); Unasyn IV (11/01- 11/05); zosyn 4.5mg IV (11/05- present) + linezolid IV (was home med-present) Plan: -CRS planning for surgery on 11/11; NPO after MN on 11/11; will continue CLD and TPN until the night prior to sx. Continue abx as above. Consulted inpatient anesthesia and wound ostomy for ostomy site marking per their request. -ID following, recs appreciated -Pain regimen: tylenol 1 g tid scheduled, oxycodone, dilaudid. Also has home gabapentin, oxybutynin, topamax, robaxin continued. Pain management consulted, per their recommendation, adjusted robaxin and gabapentin dosage. Pain team had added amitriptyline which was discontinued on 11/07 for risk of serotonin syndrome w simultaneous use of escitalopram, amitriptyline and linezolid. -Continue TPN due to stool frequently blocking mcclelland during previous hospital stay. Clear liquid diet. -Mcclelland changed 10/30; if repeat UA/ UCx needed will need to be switched to obtain sample. 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 Admitted on 10/30 iso fever, N/V, increasing abdominal pain. Has been hospitalized 3x since June for similar issues. 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 09/14-09/29: presented for abdominal pain, CT showed sequela of colocolonic fistulae 2/2 complicated diverticulitis. 10/06-10/22 presented for n/v, CT showed acute on chronic diverticulitis with increased inflammation around bladder and sigmoid colon. Imaging this admission: CT abdomen (10/30) showed no new changes. No acute diverticulitis. Given that CRS (10/15) note mentioned that intervention would not be possible during a diverticulitis flare, GI consulted to bill. EGD/ [place] done on 11/03. EGD unremarkable, colonoscopy showed moderate diverticulosis, extrinsic colonic narrowing a/w diverticular opening (fistula not seen). Exam was otherwise normal. Okay to proceed with CRS surgery per GI. Potential CRS interventions: sigmoidectomy + colovesicular fistula taken down with primary anastomosis to reduce significant morbidity anticipated with end colostomy vs emergent sigmoidectomy and end colostomy without option for reversal for an extended period of time and until significant weight loss achieved. Since prior admit, pt has achieved ~100 lb weight loss. CRS re-engaged this admit. Work-up: -UA with 3+ leukocyte esterase, 4+ bacteria. Last urine culture 09/25 showed enterococcus faecium only susceptible to linezolid -CT bilateral femur: no abscess or osteoarthritis. -Urine cx contaminated -10/31 blood cx NGTD Abx: S/p Augmentin (10/30-10/21); Unasyn IV (11/01- 11/05); zosyn 4.5mg IV (11/05- present) + linezolid IV (was home med-present) Plan: -CRS planning for surgery on 11/11; NPO after MN on 11/11; will continue CLD and TPN until the night prior to sx. Continue abx as above. Consulted inpatient anesthesia and wound ostomy for ostomy site marking per their request. -ID following, recs appreciated -Pain regimen: tylenol 1 g tid scheduled, oxycodone, dilaudid. Also has home gabapentin, oxybutynin, topamax, robaxin continued. Pain management consulted today, appreciate reccs. -Continue TPN due to stool frequently blocking mcclelland during previous hospital stay. Clear liquid diet. -Mcclelland changed 10/30; if repeat UA/ UCx needed will need to be switched to obtain sample. 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 Admitted on 10/30 iso fever, N/V, increasing abdominal pain. Has been hospitalized 3x since June for similar issues. 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 09/14-09/29: presented for abdominal pain, CT showed sequela of colocolonic fistulae 2/2 complicated diverticulitis. 10/06-10/22 presented for n/v, CT showed acute on chronic diverticulitis with increased inflammation around bladder and sigmoid colon. Imaging this admission: CT abdomen (10/30) showed no new changes. No acute diverticulitis. Given that CRS (10/15) note mentioned that intervention would not be possible during a diverticulitis flare, GI consulted to bill. EGD/ [place] done on 11/03. EGD unremarkable, colonoscopy showed moderate diverticulosis, extrinsic colonic narrowing a/w diverticular opening (fistula not seen). Exam was otherwise normal. Okay to proceed with CRS surgery per GI. Potential CRS interventions: sigmoidectomy + colovesicular fistula taken down with primary anastomosis to reduce significant morbidity anticipated with end colostomy vs emergent sigmoidectomy and end colostomy without option for reversal for an extended period of time and until significant weight loss achieved. Since prior admit, pt has achieved ~100 lb weight loss. CRS re-engaged this admit. Work-up: -UA with 3+ leukocyte esterase, 4+ bacteria. Last urine culture 09/25 showed enterococcus faecium only susceptible to linezolid -CT bilateral femur: no abscess or osteoarthritis. -Urine cx contaminated -10/31 blood cx NGTD Abx: S/p Augmentin (10/30-10/21); Unasyn IV (11/01-present) + linezolid IV (was home med-present) Plan: -CRS planning for surgery on 11/11; NPO after MN on 11/11; will continue CLD and TPN until the night prior to sx. Continue abx as above. Consulted inpatient anesthesia and wound ostomy for ostomy site marking per their request. -ID following, recs appreciated -Pain regimen: tylenol 1 g tid scheduled, oxycodone, dilaudid. Also has home gabapentin, oxybutynin, topamax, robaxin continued. Pain management consulted today, appreciate reccs. -Continue TPN due to stool frequently blocking mcclelland during previous hospital stay. Clear liquid diet -Mcclelland changed 10/30; if repeat UA/ UCx needed will need to be switched to obtain sample. 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 Admitted on 10/30 iso fever, N/V, increasing abdominal pain. Has been hospitalized 3x since June for similar issues. 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 09/14-09/29: presented for abdominal pain, CT showed sequela of colocolonic fistulae 2/2 complicated diverticulitis. 10/06-10/22 presented for n/v, CT showed acute on chronic diverticulitis with increased inflammation around bladder and sigmoid colon. Imaging this admission: CT abdomen (10/30) showed no new changes. No acute diverticulitis. Given that CRS (10/15) note mentioned that intervention would not be possible during a diverticulitis flare, GI consulted to bill. EGD/ [place] done on 11/03. EGD unremarkable, colonoscopy showed moderate diverticulosis, extrinsic colonic narrowing a/w diverticular opening (fistula not seen). Exam was otherwise normal. Okay to proceed with CRS surgery per GI. Potential CRS interventions: sigmoidectomy + colovesicular fistula taken down with primary anastomosis to reduce significant morbidity anticipated with end colostomy vs emergent sigmoidectomy and end colostomy without option for reversal for an extended period of time and until significant weight loss achieved. Since prior admit, pt has achieved ~100 lb weight loss. CRS re-engaged this admit. Work-up: -UA with 3+ leukocyte esterase, 4+ bacteria. Last urine culture 09/25 showed enterococcus faecium only susceptible to linezolid -CT bilateral femur: no abscess or osteoarthritis. -Urine cx contaminated -10/31 blood cx NGTD Abx: S/p Augmentin (10/30-7/1); Unasyn IV (11/01-present) + linezolid IV (was home med-present) Plan: -CRS planning for surgery on 11/11; NPO after MN on 11/11; will continue CLD and TPN until the night prior to sx. Continue abx as above. -ID following, recs appreciated -Pain regimen: tylenol 1 g tid scheduled, oxycodone, dilaudid. Also has home gabapentin, oxybutynin, topamax, robaxin continued. Pain management consulted today, appreciate reccs. -Continue TPN due to stool frequently blocking mcclelland during previous hospital stay. Clear liquid diet -Mcclelland changed 10/30; if repeat UA/ UCx needed will need to be switched to obtain sample. Assessment & Plan (11/03/2024 5:48 PM CDT): Presented with isolated fever, n/v at home along with increased pain in abdomen. Patient was hospitalized 3 times since June for similar issues. 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 09/14-09/29: presented for abdominal pain, CT showed sequela of colocolonic fistulae 2/2 complicated diverticulitis. 10/06-10/22 presented for n/v, CT showed acute on chronic diverticulitis with increased inflammation around bladder and sigmoid colon. This admission repeat CT did not show new findings but her symptoms are likely still associated with her ongoing GI/ issues. Per CRS note 10/15 from previous admission, patient has 2 options, one is sigmoidectomy + colovesicular fistula taken down with primary anastomosis to reduce significant morbidity anticipated with end colostomy. This option would not be feasible in the setting of acute diverticulitis flare. Alternative emergent operation would be sigmoidectomy and end colostomy without option for reversal for an extended period of time and until significant weight loss achieved. CT did not show new imaging evidence of diverticulitis flare, and patient has achieved significant weight loss, re-engaged CRS for continued discussion about surgical options. Work-up: -UA with 3+ leukocyte esterase, 4+ bacteria. Last urine culture 09/25 showed enterococcus faecium only susceptible to linezolid -CT C/A/P: Unchanged tethering of the sigmoid colon to the uterine fundus as well as the urinary bladder. 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 Unchanged findings of acute on chronic diverticulitis in the pelvis. -CT bilateral femur: no abscess or osteoarthritis. -Urine cx contaminated -10/31 blood cx NGTD -11/03 EGD: normal -11/03 colonoscopy: extrinsic stenosis of sigmoid colon, diverticulosis, diverticular opening, unable to view cecal area due to narrowing, otherwise normal colon. Recommended repeat colonoscopy after surgery for diverticular disease screening (given unable to clear cecal base of small polyps). Per GI, ok to proceed w/ colovesical fistula surgery. Antibiotics: -S/p Augmentin 10/30-10/31 -Continue Unasyn IV (11/01-present) + linezolid IV (was home med-present) Plan: -Colorectal surgery consulted. Will follow with plan for surgery to fix colovesicular fistula now pt is s/p colonoscopy for diverticulitis. -ID following, recs appreciated -Pain regimen: tylenol 1 g tid scheduled, oxycodone, dilaudid. Also has home gabapentin, oxybutynin, topamax, robaxin continued -Continue TPN due to stool frequently blocking mcclelland during previous hospital stay. Clear liquid diet -Mcclelland changed 10/30 Assessment & Plan (11/02/2024 12:58 PM CDT): Presented with isolated fever, n/v at home along with increased pain in abdomen. Patient was hospitalized 3 times since June for similar issues. 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 09/14-09/29: presented for abdominal pain, CT showed sequela of colocolonic fistulae 2/2 complicated diverticulitis. 10/06-10/22 presented for n/v, CT showed acute on chronic diverticulitis with increased inflammation around bladder and sigmoid colon. This admission repeat CT did not show new findings but her symptoms are likely still associated with her ongoing GI/ issues. Per CRS note 10/15 from previous admission, patient has 2 options, one is sigmoidectomy + colovesicular fistula taken down with primary anastomosis to reduce significant morbidity anticipated with end colostomy. This option would not be feasible in the setting of acute diverticulitis flare. Alternative emergent operation would be sigmoidectomy and end colostomy without option for reversal for an extended period of time and until significant weight loss achieved. Now given that it has been 3 weeks since patient's last encounter with CRS and CT did not show new imaging evidence of diverticulitis flare, and patient has achieved significant weight loss, would re-engage CRS for continued discussion about surgical options. Work-up: -UA with 3+ leukocyte esterase, 4+ bacteria. Last urine culture 09/25 showed enterococcus faecium only susceptible to linezolid -CT C/A/P: Unchanged tethering of the sigmoid colon to the uterine fundus as well as the urinary bladder. 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 Unchanged findings of acute on chronic diverticulitis in the pelvis. -CT bilateral femur: no abscess or osteoarthritis. -Urine cx contaminated -10/31 blood cx NGTD Antibiotics: -S/p Augmentin 10/30-10/31 Plan: -Declined RVP -Started Unasyn IV (11/01-) + linezolid IV (was on prior to admission-present) -Colorectal surgery consulted. Recommended GI consult for scope given recent diverticulitis. They will consider possible inpatient versus outpatient surgery -ID following, recs appreciated -GI following, plan for EGD and colonoscopy Sunday. NPO Sunday night -Pain regimen: tylenol 1 g tid scheduled, oxycodone, dilaudid. Also has home gabapentin, oxybutynin, topamax, robaxin continued -Continue TPN due to stool frequently blocking mcclelland during previous hospital stay. Clear liquid diet Assessment & Plan (11/01/2024 11:36 AM CDT): Presented with isolated fever, n/v at home along with increased pain in abdomen. Patient was hospitalized 3 times since June for similar issues. 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 09/14-09/29: presented for abdominal pain, CT showed sequela of colocolonic fistulae 2/2 complicated diverticulitis. 10/06-10/22 presented for n/v, CT showed acute on chronic diverticulitis with increased inflammation around bladder and sigmoid colon. This admission repeat CT did not show new findings but her symptoms are likely still associated with her ongoing GI/ issues. Per CRS note 10/15 from previous admission, patient has 2 options, one is sigmoidectomy + colovesicular fistula taken down with primary anastomosis to reduce significant morbidity anticipated with end colostomy. This option would not be feasible in the setting of acute diverticulitis flare. Alternative emergent operation would be sigmoidectomy and end colostomy without option for reversal for an extended period of time and until significant weight loss achieved. Now given that it has been 3 weeks since patient's last encounter with CRS and CT did not show new imaging evidence of diverticulitis flare, and patient has achieved significant weight loss, would re-engage CRS for continued discussion about surgical options. Work-up: -UA with 3+ leukocyte esterase, 4+ bacteria. Last urine culture 09/25 showed enterococcus faecium only susceptible to linezolid -CT C/A/P: Unchanged tethering of the sigmoid colon to the uterine fundus as well as the urinary bladder. 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 Unchanged findings of acute on chronic diverticulitis in the pelvis. -CT bilateral femur: no abscess or osteoarthritis. -Urine cx contaminated -10/31 blood cx NGTD Plan: -Declined RVP -Continue Augmentin + linezolid (on tedizolid at home) -Colorectal surgery consulted. Recommended GI consult for scope given recent diverticulitis. They will consider possible inpatient versus outpatient surgery -C/s ID given fever while on abx -C/s GI -Pain regimen: tylenol 1 g tid scheduled, oxycodone, dilaudid. Also has home gabapentin, oxybutynin, topamax, robaxin continued -Continue TPN due to stool frequently blocking mcclelland during previous hospital stay. Clear liquid diet Assessment & Plan (10/31/2024 5:01 PM CDT): Presented with isolated fever, n/v at home along with increased pain in abdomen. Patient was hospitalized 3 times since June for similar issues. 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 09/14-09/29: presented for abdominal pain, CT showed sequela of colocolonic fistulae 2/2 complicated diverticulitis. 10/06-10/22 presented for n/v, CT showed acute on chronic diverticulitis with increased inflammation around bladder and sigmoid colon. This admission repeat CT did not show new findings but her symptoms are likely still associated with her ongoing GI/ issues. Per CRS note 10/15 from previous admission, patient has 2 options, one is sigmoidectomy + colovesicular fistula taken down with primary anastomosis to reduce significant morbidity anticipated with end colostomy. This option would not be feasible in the setting of acute diverticulitis flare. Alternative emergent operation would be sigmoidectomy and end colostomy without option for reversal for an extended period of time and until significant weight loss achieved. Now given that it has been 3 weeks since patient's last encounter with CRS and CT did not show new imaging evidence of diverticulitis flare, and patient has achieved significant weight loss, would re-engage CRS for continued discussion about surgical options. Work-up: -UA with 3+ leukocyte esterase, 4+ bacteria. Last urine culture 09/25 showed enterococcus faecium only susceptible to linezolid -CT C/A/P: Unchanged tethering of the sigmoid colon to the uterine fundus as well as the urinary bladder. 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 -CT bilateral femur: no abscess or osteoarthritis. Plan: -Follow UCx and BCx. -Declined RVP -Continue Augmentin + linezolid (on tedizolid at home) -Colorectal surgery consulted. Recommended GI consult for scope given recent diverticulitis. They will consider possible inpatient versus outpatient surgery -C/s ID in AM -C/s GI in AM -Pain regimen: tylenol 1 g tid scheduled, oxycodone, dilaudid. Also has home gabapentin, oxybutynin, topamax, robaxin continued -Continue TPN due to stool frequently blocking mcclelland during previous hospital stay. Clear liquid diet Assessment & Plan (10/31/2024 2:56 AM CDT): Presented with isolated fever, n/v at home along with increased pain in abdomen. Patient was hospitalized 3 times since June for similar issues. 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 09/14-09/29: presented for abdominal pain, CT showed sequela of colocolonic fistulae 2/2 complicated diverticulitis. 10/06-10/22 presented for n/v, CT showed acute on chronic diverticulitis with increased inflammation around bladder and sigmoid colon. This admission repeat CT did not show new findings but her symptoms are likely still associated with her ongoing GI/ issues. Per CRS note 10/15 from previous admission, patient has 2 options, one is sigmoidectomy + colovesicular fistula taken down with primary anastomosis to reduce significant morbidity anticipated with end colostomy. This option would not be feasible in the setting of acute diverticulitis flare. Alternative emergent operation would be sigmoidectomy and end colostomy without option for reversal for an extended period of time and until significant weight loss achieved. Now given that it has been 3 weeks since patient's last encounter with CRS and CT did not show new imaging evidence of diverticulitis flare, and patient has achieved significant weight loss, would re-engage CRS for continued discussion about surgical options. Work-up: -UA with 3+ leukocyte esterase, 4+ bacteria. Last urine culture 09/25 showed enterococcus faecium only susceptible to linezolid -CT C/A/P: Unchanged tethering of the sigmoid colon to the uterine fundus as well as the urinary bladder. 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 -CT bilateral femur: no abscess or osteoarthritis. Plan: -Await UCx and BCx. Check RVP since patient also mentioned sore throat lately -Continue Augmentin + linezolid (on tedizolid at home) -CRS and ID consult in the AM -Pain regimen: tylenol 1 g tid scheduled, oxycodone, dilaudid. Also has home gabapentin, oxybutynin, topamax, robaxin continued -Continue TPN due to stool frequently blocking mcclelland during previous hospital stay Assessment & Plan (10/17/2024 4:00 PM CDT): The patient is a 44 y.o. female history of colovesical fistula c/b recurrent UTI requiring multiple recent ICU admissions admitted on 10/06 from ED with fevers, chills, n/v and several days of worsened dysuria/flank pain. CTAP 10/06 with 2.3cm rim enhancing collection in area of fat stranding between sigmoid colon and bladder (colovesicular tract) and increased stranding around urinary bladder, symmetrically enhancing kidneys. Of note, had R ureteral stent placed 08/05 and L ureteral stent placed 08/12 with stone extraction, s/p b/l stent removal 08/28/24. R forearm wound sustained during prior admission not overtly infected on exam. 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 Started on cefepime/linezolid/metronidazole 10/06-10/10. Transitioned to Augmentin/tedizolid 10/11. Extensive discussion with Colon& Rectal Surgery regarding surgical intervention. Recommendations: Continue amoxicillin-clavulanate 875-125mg po BID + tedizolid 200mg po daily Initial plan was for 2 weeks from 10/06 with repeat imaging to assess for interval resolution of fistula tract abscess. Surgical planning underway by Colon & Rectal surgery; OK to continue PO antibiotics through surgery. Please engage ID during future surgical hospitalization to help define course of antibiotics Patient's insurance is contracted with ID clinic Case discussed and plan of care formulated with Dr. Watkins as above ID will follow peripherally on the monitor list PENELOPE Guerra, Team 2 Infectious Disease HUMAN RESOURCE ADVISOR Please contact the Team 2 ID HUMAN RESOURCE ADVISOR M-W & F, [phone] via chat or phone at [phone] or the ID team 2 fellow at the phone numbers in care team with any questions or concerns. Contact the ID team 2 fellow on After hours, please contact the ID fellow physical education specialist [phone] Today, I am treating the patient for genitourinary infection and UTI which can cause sepsis, septic shock, multiorgan dysfunction in the short-term future in the absence of appropriate treatment, as described in the note. Reviewed notes by Urology, CRS, GI to determine appropriate plan of care as in the note. Estimated Creatinine Clearance: 46.3 mL/min (A) (by Cockcroft-Gault based on SCr of 1.42 mg/dL (H)). - reviewed; antibiotics recommended above are dosed accordingly. The patient is being intensively monitored for antimicrobial toxicity from Augmentin/Tedizolid metroNIDAZOLE with the following tests: CBC with diff and CMP. Assessment & Plan (10/09/2024 4:34 PM CDT): The patient is a 44 y.o. female history of colovesical fistula c/b recurrent UTI requiring multiple recent ICU admissions admitted on 10/06 from ED with fevers, chills, n/v and several days of worsened dysuria/flank pain. CTAP 10/06 with 2.3cm rim enhancing collection in area of fat stranding between sigmoid colon and bladder (colovesicular tract) and increased stranding around urinary bladder, symmetrically enhancing kidneys. Of note, had R ureteral stent placed 08/05 and L ureteral stent placed 08/12 with stone extraction, s/p b/l stent removal 08/28/24. R forearm wound sustained during prior admission not overtly infected on exam. 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 Started on cefepime/linezolid/metronidazole 10/06-current. Changed from cefepime to ceftriaxone on 10/09 by primary team. Recommendations: Agree with ceftriaxone 1g IV q24h, linezolid 600mg po BID, and metronidazole 500mg BID (would change to po if tolerating) Sent tedizolid test script as anticipating possible need for longer outpatient antibiotic course and this will help avoid myelosuppressive effects of linezolid Would continue above regimen until patient is feeling clinically improved at which time, plan for amoxicillin-clavulanate 875-125mg po BID (CrCl nearing 30 at which point would need renal adjustment) + tedizolid 200mg po daily Duration 2 weeks from 10/06 with repeat imaging to assess for interval resolution of fistula tract abscess to determine whether or not continuation of antibiotic therapy is warranted Plan for outpatient c-scope/EGD when diverticulitis resolved prior to surgery for fistula; no surgical intervention this admission unless worsening perforation or septic shock Monitor CBC, CMP at minimum weekly on above IV regimen Patient's insurance is contracted with ID clinic Staffed with ID attending, Dr. Guajardo. ID Team 2 will follow peripherally. Kandice Macias MD Infectious Diseases Fellow Today, I am treating the patient for genitourinary infection and UTI which can cause sepsis, septic shock, multiorgan dysfunction in the short-term future in the absence of appropriate treatment, as described in the note. Reviewed notes by Urology, CRS, GI to determine appropriate plan of care as in the note. Estimated Creatinine Clearance: 41.4 mL/min (A) (by Cockcroft-Gault based on SCr of 1.42 mg/dL (H)). - reviewed; antibiotics recommended above are dosed accordingly. The patient is being intensively monitored for antimicrobial toxicity from cefTRIAXone linezolid metroNIDAZOLE with the following tests: CBC with diff and CMP. Assessment & Plan (10/06/2024 6:55 PM CDT): The patient is a 44 y.o. female history of colovesical fistula c/b recurrent UTI requiring multiple recent ICU admissions admitted on 10/06 from ED with fevers, chills, n/v and several days of worsened dysuria/flank pain. CTAP 10/06 with 2.3cm rim enhancing collection in area of fat stranding between sigmoid colon and bladder (colovesicular tract) and increased stranding around urinary bladder, symmetrically enhancing kidneys. Of note, had R ureteral stent placed 08/05 and L ureteral stent placed 08/12 with stone extraction, s/p b/l stent removal 08/28/24. R forearm wound sustained during prior admission not overtly infected on exam. Recommendations: Agree with cefepime 2g IV q12h, linezolid 600mg po BID F/up urine culture (mcclelland exchanged prior in ED), will tailor antibiotics accordingly Given recurrent admissions for sepsis in setting of colovesical fistula, now with abscess in fistula tract, would recommend formal CRS consult versus expedited outpatient referral to ensure that she is established in clinic so that when risk factors for surgery are optimized she is able to proceed with definitive management of fistula - reports that she has lost 90lbs in last several months Monitor CBC, CMP at minimum weekly on above IV regimen Staffed with ID attending, Dr. Werner. ID Team 2 will follow. Kandice Macias MD Infectious Diseases Fellow Elevated transaminase level 09/25/2024 Assessment & Plan (01/18/2025 3:27 PM CDT): LFT's trended up since the end of September. Possibly d/t TPN use. CT abd showed hepatic steatosis. - [facility] LFT Assessment & Plan (01/17/2025 2:32 PM CDT): LFT's trended up since the end of September. Possibly d/t TPN use. CT abd showed hepatic steatosis. - [facility] LFT Assessment & Plan (01/16/2025 9:26 PM CDT): LFT's trended up since the end september. Possibly d/t TPN use. CT abd showed hepatic steatosis. - [facility] LFT Assessment & Plan (01/15/2025 9:08 PM CDT): LFT's trended up since the end of September. Possibly d/t TPN use. CT abd showed hepatic steatosis. - [facility] LFT Assessment & Plan (01/14/2025 11:06 PM CDT): LFT's trended up since the end of September. Possibly d/t TPN use. CT abd showed hepatic steatosis. - [facility] LFT Assessment & Plan (01/13/2025 8:04 PM CDT): LFT's trended up since the end of September. Possibly d/t TPN use. CT abd showed hepatic steatosis. - [facility] LFT Assessment & Plan (01/12/2025 1:20 PM CDT): LFT's trended up since the end of September. Possibly d/t TPN use. CT abd showed hepatic steatosis. - [facility] LFT Assessment & Plan (01/11/2025 12:18 PM CDT): LFT's trended up since the end of September. Possibly d/t TPN use. CT abd showed hepatic steatosis. - [facility] LFT Assessment & Plan (01/10/2025 11:26 AM CDT): LFT's trended up since the end of September. Possibly d/t TPN use. CT abd showed hepatic steatosis. - [facility] LFT Assessment & Plan (01/09/2025 11:58 AM CDT): LFT's trended up since the end of September. Possibly d/t TPN use. CT abd showed hepatic steatosis. - [facility] LFT Assessment & Plan (01/08/2025 10:29 AM CDT): LFT's trended up since the end of September. Possibly d/t TPN use. CT abd showed hepatic steatosis. - [facility] LFT Assessment & Plan (01/07/2025 1:32 PM CDT): LFT's trended up since the end of September. Possibly d/t TPN use. CT abd showed hepatic steatosis. - [facility] LFT Assessment & Plan (01/06/2025 1:47 PM CDT): LFT's trended up since the end of September. Possibly d/t TPN use. CT abd showed hepatic steatosis. - [facility] LFT Assessment & Plan (01/05/2025 8:19 PM CDT): LFT's trended up since the end of September. Possibly d/t TPN use. CT abd showed hepatic steatosis. - [facility] LFT Assessment & Plan (01/04/2025 2:44 PM CDT): LFT's trended up since the end of September. Possibly d/t TPN use. CT abd showed hepatic steatosis. - [facility] LFT Assessment & Plan (01/03/2025 6:12 PM CDT): LFT's trended up since the end of September. Possibly d/t TPN use. CT abd showed hepatic steatosis. - [facility] LFT Assessment & Plan (01/02/2025 7:31 PM CDT): LFT's trended up since the end of September. Possibly d/t TPN use. CT abd showed hepatic steatosis. - [facility] LFT Assessment & Plan (01/01/2025 6:42 PM CDT): LFT's trended up since the end of September. Possibly d/t TPN use. CT abd showed hepatic steatosis. - [facility] LFT Assessment & Plan (12/31/2024 6:52 PM CDT): LFT's trended up since the end of September. Possibly d/t TPN use. CT abd showed hepatic steatosis. - [facility] LFT Assessment & Plan (12/30/2024 4:26 PM CDT): LFT's trended up since the end of September. Possibly d/t TPN use. CT abd showed hepatic steatosis. - [facility] LFT Assessment & Plan (12/29/2024 10:35 AM CDT): LFT's trended up since the end of September. Possibly d/t TPN use. CT abd showed hepatic steatosis. - [facility] LFT Assessment & Plan (12/28/2024 11:23 AM CDT): LFT's trended up since the end of September. Possibly d/t TPN use. CT abd showed hepatic steatosis. - [facility] LFT Assessment & Plan (12/27/2024 10:44 AM CDT): LFT's trended up since the end of September. Possibly d/t TPN use. CT abd showed hepatic steatosis. - [facility] LFT Assessment & Plan (12/26/2024 1:28 PM CDT): LFT's trended up since the end of September. Possibly d/t TPN use. CT abd showed hepatic steatosis. - [facility] LFT Assessment & Plan (12/25/2024 1:36 PM CDT): LFT's trended up since the end of September. Possibly d/t TPN use. CT abd showed hepatic steatosis. - [facility] LFT Assessment & Plan (12/24/2024 12:30 PM CDT): LFT's trended up since the end of September. Possibly d/t TPN use. CT abd showed hepatic steatosis. - [facility] LFT Assessment & Plan (12/23/2024 12:16 PM CDT): LFT's trended up since the end of September. Possibly d/t TPN use. CT abd showed hepatic steatosis. - [facility] LFT Assessment & Plan (12/22/2024 7:49 AM CDT): LFT's trended up since the end of September. Possibly d/t TPN use. CT abd showed hepatic steatosis. - [facility] LFT Assessment & Plan (12/21/2024 12:05 PM CDT): LFT's trended up since the end of September. Possibly d/t TPN use. CT abd showed hepatic steatosis. - [facility] LFT Assessment & Plan (12/20/2024 9:08 AM CDT): LFT's trended up since the end of September. Possibly d/t TPN use. CT abd showed hepatic steatosis. - [facility] LFT improved and persistently mild elevation - Repeat CT 12/14 with severe fatty liver, cholelithiasis Assessment & Plan (12/19/2024 7:54 AM CDT): LFT's trended up since the end of September. Possibly d/t TPN use. CT abd showed hepatic steatosis. - [facility] LFT improved and persistently mild elevation - Repeat CT 824 with severe fatty liver, cholelithiasis Assessment & Plan (12/18/2024 8:14 AM CDT): LFT's trended up since the end of September. Possibly d/t TPN use. CT abd showed hepatic steatosis. - [facility] LFT improved and persistently mild elevation - Repeat CT 824 with severe fatty liver, cholelithiasis Assessment & Plan (12/17/2024 1:15 PM CDT): LFT's trended up since the end of September. Possibly d/t TPN use. CT abd showed hepatic steatosis. - [facility] LFT improved and persistently mild elevation - Repeat CT 12/14 with severe fatty liver, cholelithiasis Assessment & Plan (12/16/2024 2:46 PM CDT): LFT's trended up since the end of September. Possibly d/t TPN use. CT abd showed hepatic steatosis. - [facility] LFT improved and persistently mild elevation - Repeat CT 12/14 with severe fatty liver, cholelithiasis Assessment & Plan (12/15/2024 12:46 PM CDT): LFT's trended up since the end of September. Possibly d/t TPN use. CT abd showed hepatic steatosis. - [facility] LFT improved and persistently mild elevation - Repeat CT 12/14 with severe fatty liver, cholelithiasis Assessment & Plan (12/14/2024 10:58 AM CDT): LFT's trended up since the end of September. Possibly d/t TPN use. CT abd showed hepatic steatosis. - [facility] LFT-improving Assessment & Plan (12/13/2024 1:19 PM CDT): LFT's trended up since the end of September. Possibly d/t TPN use. CT abd showed hepatic steatosis. - [facility] LFT-improving Assessment & Plan (12/12/2024 2:48 PM CDT): LFT's trended up since the end of September. Possibly d/t TPN use. CT abd showed hepatic steatosis. - [facility] LFT-improving Assessment & Plan (12/11/2024 8:52 PM CDT): LFT's trended up since the end of September. Possibly d/t TPN use. CT abd showed hepatic steatosis. - [facility] LFT-improving - f/u nutrition recs- discussed TPN adjustment with Nutrition support team Assessment & Plan (12/10/2024 8:41 AM CDT): LFT's trended up since the end of September. Possibly d/t TPN use. CT abd showed hepatic steatosis. - [facility] LFT-improving - f/u nutrition recs- discussed TPN adjustment with Nutrition support team Assessment & Plan (12/09/2024 8:35 AM CDT): LFT's trended up since the end of September. Possibly d/t TPN use. CT abd showed hepatic steatosis. - [facility] LFT-improving - f/u nutrition recs- discussed TPN adjustment with Nutrition support team Assessment & Plan (12/08/2024 2:09 PM CDT): LFT's trended up since the end of September. Possibly d/t TPN use. CT abd showed hepatic steatosis. - CT[facility] LFT-improving - f/u nutrition recs- discussed TPN adjustment with Nutrition support team Assessment & Plan (12/07/2024 1:18 PM CDT): LFT's trended up since the end of September. Possibly d/t TPN use. CT abd showed hepatic steatosis. - CT[facility] LFT-improving - f/u nutrition recs- discussed TPN adjustment with Nutrition support team Assessment & Plan (12/06/2024 2:19 PM CDT): LFT's trended up since the end of September. Possibly d/t TPN use. CT abd showed hepatic steatosis. - [facility] LFT-improving - f/u nutrition recs- discussed TPN adjustment with Nutrition support team Assessment & Plan (12/05/2024 4:47 PM CDT): LFT's trended up since the end of September. Possibly d/t TPN use. CT abd showed hepatic steatosis. - [facility] LFT-improving - f/u nutrition recs- discussed TPN adjustment with Nutrition support team Assessment & Plan (12/04/2024 2:08 PM CDT): LFT's trended up since the end of September. Possibly d/t TPN use. CT abd showed hepatic steatosis. - [facility] LFT-improving - f/u nutrition recs- discussed TPN adjustment with Nutrition support team Assessment & Plan (12/03/2024 6:06 PM CDT): LFT's trended up since the end of September. Possibly d/t TPN use. CT abd showed hepatic steatosis. - CT[facility] LFT-improving - f/u nutrition recs- discussed TPN adjustment with Nutrition support team Assessment & Plan (12/02/2024 2:26 PM CDT): LFT's trended up since the end of September. Possibly d/t TPN use. CT abd showed hepatic steatosis. - [facility] LFT-improving - f/u nutrition recs- discussed TPN adjustment with Nutrition support team Assessment & Plan (12/01/2024 9:54 AM CDT): LFT's trended up since the end of September. Possibly d/t TPN use. CT abd showed hepatic steatosis. - CT[facility] LFT-improving - f/u nutrition recs- discussed TPN adjustment with Nutrition support team Assessment & Plan (11/30/2024 1:01 PM CDT): LFT's trended up since the end of September. Possibly d/t TPN use. CT abd showed hepatic steatosis. - CT[facility] LFT-improving - f/u nutrition recs- discussed TPN adjustment with Nutrition support team Assessment & Plan (11/29/2024 11:20 AM CDT): LFT's trended up since the end of September. Possibly d/t TPN use. CT abd showed hepatic steatosis. - [facility] LFT-improving - f/u nutrition recs- discussed TPN adjustment with Nutrition support team Assessment & Plan (11/28/2024 1:42 PM CDT): LFT's trended up since the end of September. Possibly d/t TPN use. CT abd showed hepatic steatosis. - CT[facility] LFT-improving - f/u nutrition recs- discussed TPN adjustment with Nutrition support team Assessment & Plan (11/27/2024 10:16 AM CDT): LFT's trended up since the end of September. Possibly d/t TPN use. CT abd showed hepatic steatosis. - CTM LFT-improving - f/u nutrition recs- discussed TPN adjustment with Nutrition support team Assessment & Plan (11/26/2024 12:13 PM CDT): LFT's trended up since the end of September. Possibly d/t TPN use. CT abd showed hepatic steatosis. - [facility] LFT-improving - f/u nutrition recs- discussed TPN adjustment with Nutrition support team Assessment & Plan (11/25/2024 3:35 PM CDT): LFT's trended up since the end of September. Possibly d/t TPN use. CT abd showed hepatic steatosis. - [facility] LFT - f/u nutrition recs- discussed TPN adjustment with Nutrition support team Assessment & Plan (11/24/2024 8:49 AM CDT): LFTs trended up since the end of September. Possibly d/t TPN use. CT abd showed hepatic steatosis. - possibly 2/2 TPN - CTM LFT - f/u nutrition recs- discussed TPN adjustment with Nutrition support team Assessment & Plan (11/23/2024 8:59 PM CDT): LFTs trended up since the end of September. Possibly d/t TPN use. CT abd showed hepatic steatosis. - possibly 2/2 TPN - CTM LFT - f/u nutrition recs- discussed TPN adjustment with Nutrition support team Assessment & Plan (11/22/2024 7:23 PM CDT): LFTs trended up since the end of September. Possibly d/t TPN use. CT abd showed hepatic steatosis. - possibly 2/2 TPN - CTM LFT - f/u nutrition recs- discussed TPN adjustment today with Nutrition support team Assessment & Plan (11/21/2024 3:38 PM CDT): LFTs trended up since the end of September. Possibly d/t TPN use. CT abd showed hepatic steatosis. - unclear etiology, possibly 2/2 TPN - CTM LFT - f/u nutrition recs Assessment & Plan (11/20/2024 3:42 PM CDT): LFTs trended up since the end of September. Possibly d/t TPN use. CT abd showed hepatic steatosis. - unclear etiology, possibly 2/2 TPN - CTM LFT - f/u nutrition recs Assessment & Plan (11/19/2024 1:39 PM CDT): LFTs trended up since the end of September. Possibly d/t TPN use. CT abd showed hepatic steatosis. - unclear etiology, possibly 2/2 TPN - CTM LFT - f/u nutrition recs Assessment & Plan (11/18/2024 6:00 PM CDT): - unclear etiology, possibly 2/2 TPN - CTM LFT - f/u nutrition recs Assessment & Plan (11/06/2024 9:12 AM CDT): Trended up since end september. AST/ALT largely unchanged from the time of her last discharge. Unsure if this is related to patient's TPN use CT abd showed hepatic steatosis - Has gone up slightly compared to day prior - Will continue to monitor LFTs for now. Assessment & Plan (11/05/2024 11:05 AM CDT): Trended up since end of September. AST/ALT largely unchanged from the time of her last discharge. Unsure if this is related to patient's TPN use CT abd showed hepatic steatosis - Has gone up slightly compared to day prior - Will continue to monitor LFTs for now. Assessment & Plan (11/04/2024 5:53 PM CDT): Trended up since end of September. AST/ALT largely unchanged from the time of her last discharge. Unsure if this is related to patient's TPN use CT abd showed hepatic steatosis -improving -monitor LFTs Assessment & Plan (11/03/2024 8:03 AM CDT): Trended up since end of September. AST/ALT largely unchanged from the time of her last discharge. Unsure if this is related to patient's TPN use CT abd showed hepatic steatosis -improving -monitor LFTs Assessment & Plan (11/02/2024 7:50 AM CDT): Trended up since end of September. AST/ALT largely unchanged from the time of her last discharge. Unsure if this is related to patient's TPN use CT abd showed hepatic steatosis -improving -monitor LFTs Assessment & Plan (11/01/2024 11:36 AM CDT): Trended up since end of September. AST/ALT largely unchanged from the time of her last discharge. Unsure if this is related to patient's TPN use CT abd showed hepatic steatosis -improving -monitor LFTs Assessment & Plan (10/31/2024 5:01 PM CDT): Trended up since end of September. AST/ALT largely unchanged from the time of her last discharge. Unsure if this is related to patient's TPN use CT abd showed hepatic steatosis -Continue to monitor for now Assessment & Plan (10/31/2024 2:50 AM CDT): Trended up since end of September. AST/ALT largely unchanged from the time of her last discharge. Unsure if this is related to patient's TPN use -Continue to monitor for now Assessment & Plan (10/14/2024 9:34 AM CDT): ALP 140, AST 109, ALT 72. Likely 2/2 hypovolemia/acute on chronic diverticulitis causing inflammation. On 10/14 AST 29, ALT 19. -CMP daily Assessment & Plan (10/13/2024 5:52 PM CDT): ALP 140, AST 109, ALT 72. Likely 2/2 hypovolemia/acute on chronic diverticulitis causing inflammation. -[facility] daily Assessment & Plan (10/12/2024 11:25 AM CDT): ALP 140, AST 109, ALT 72. Likely 2/2 hypovolemia/acute on chronic diverticulitis causing inflammation. -[facility] daily Assessment & Plan (10/11/2024 10:03 AM CDT): ALP 140, AST 109, ALT 72. Likely 2/2 hypovolemia/acute on chronic diverticulitis causing inflammation. -[facility] daily Assessment & Plan (10/10/2024 2:50 PM CDT): ALP 140, AST 109, ALT 72. Likely 2/2 hypovolemia/acute on chronic diverticulitis causing inflammation. -[facility] daily Assessment & Plan (10/09/2024 10:57 AM CDT): ALP 140, AST 109, ALT 72. Likely 2/2 hypovolemia/acute on chronic diverticulitis causing inflammation. -[facility] daily Assessment & Plan (10/08/2024 3:33 PM CDT): ALP 140, AST 109, ALT 72. Likely 2/2 hypovolemia/acute on chronic diverticulitis causing inflammation. -[facility] daily Assessment & Plan (10/07/2024 7:16 AM CDT): ALP 140, AST 109, ALT 72. Likely 2/2 hypovolemia/acute on chronic diverticulitis causing inflammation -[facility] daily Assessment & Plan (09/29/2024 7:57 AM CDT): Improving AST ALT gradually up trended, peaked at 164/74 respectively, could be related to antibiotics (ceftriaxone) - Transaminases downtrending (AST 70s, ALT normalized) - Normal alkaline phosphatase and bilirubin levels - Continue to monitor Assessment & Plan (09/28/2024 5:35 PM CDT): Improving AST ALT gradually up trended, peaked at 164/74 respectively, could be related to antibiotics (ceftriaxone) - Transaminases downtrending (AST 70s, ALT normalized) - Normal alkaline phosphatase and bilirubin levels - Continue to monitor Assessment & Plan (09/27/2024 5:51 PM CDT): Improving AST ALT gradually up trended, peaked at 164/74 respectively, could be related to antibiotics (ceftriaxone) - Transaminases downtrending (AST 50s, ALT normalized) - Normal alkaline phosphatase and bilirubin levels - Continue to monitor Assessment & Plan (09/26/2024 3:31 PM CDT): Improving AST ALT gradually obtunded, peaked at 164/74 respectively, now downtrending (AST 50, ALT normalized) Continue to monitor Assessment & Plan (09/25/2024 5:06 PM CDT): Improving AST ALT gradually obtunded, peaked at 164/74 respectively, now downtrending Continue to monitor Right arm pain 09/19/2024 Assessment & Plan (09/29/2024 7:57 AM CDT): Patient reports pain in upper right arm that occurs with movement at the elbow or shoulder. Most likely musculoskeletal in origin; no warmth, erythema, or swelling on exam. Per ID prior assessment; exam not consistent with septic arthritis. - RUE doppler negative for DVT - Pain management medications under abdominal pain Assessment & Plan (09/28/2024 8:11 AM CDT): Patient reports pain in upper right arm that occurs with movement at the elbow or shoulder. Most likely musculoskeletal in origin; no warmth, erythema, or swelling on exam. Per ID prior assessment; exam not consistent with septic arthritis. - RUE doppler negative for DVT - Pain management medications under abdominal pain Assessment & Plan (09/27/2024 7:42 AM CDT): Patient reports pain in upper right arm that occurs with movement at the elbow or shoulder. Most likely musculoskeletal in origin; no warmth, erythema, or swelling on exam. Per ID prior assessment; exam not consistent with septic arthritis. - RUE doppler negative for DVT - Pain management medications under abdominal pain Assessment & Plan (09/26/2024 8:18 AM CDT): Patient reports pain in upper right arm that occurs with movement at the elbow or shoulder. Most likely musculoskeletal in origin; no warmth, erythema, or swelling on exam. Per ID prior assessment; exam not consistent with septic arthritis. - RUE doppler negative for DVT - Pain management medications under abdominal pain Assessment & Plan (09/25/2024 8:09 AM CDT): Patient reports pain in upper right arm that occurs with movement at the elbow or shoulder. Most likely musculoskeletal in origin; no warmth, erythema, or swelling on exam. Per ID prior assessment; exam not consistent with septic arthritis. - RUE doppler negative for DVT - Pain management medications under abdominal pain Assessment & Plan (09/24/2024 8:24 AM CDT): Patient reports pain in upper right arm that occurs with movement at the elbow or shoulder. Most likely musculoskeletal in origin; no warmth, erythema, or swelling on exam. Per ID prior assessment; exam not consistent with septic arthritis. - RUE doppler negative for DVT - Pain management medications under abdominal pain Assessment & Plan (09/23/2024 4:32 PM CDT): Patient reports pain in upper right arm that occurs with movement at the elbow or shoulder. Most likely musculoskeletal in origin; no warmth, erythema, or swelling on exam. Per ID prior assessment; exam not consistent with septic arthritis. - RUE doppler negative for DVT - Pain management medications under abdominal pain Assessment & Plan (09/22/2024 7:06 AM CDT): Patient reports pain in upper right arm that occurs with movement at the elbow or shoulder. Most likely musculoskeletal in origin; no warmth, erythema, or swelling on exam. Per ID, patient with tenderness during active ROM but no tenderness with passive ROM; exam not consistent with septic arthritis. - RUE doppler negative for DVT - Pain management medications under abdominal pain Assessment & Plan (09/21/2024 7:12 AM CDT): Patient reports pain in upper right arm that occurs with movement at the elbow or shoulder. Most likely musculoskeletal in origin; no warmth, erythema, or swelling on exam. Per ID, patient with tenderness during active ROM but no tenderness with passive ROM; exam not consistent with septic arthritis. - RUE doppler negative for DVT - Pain management medications under abdominal pain Assessment & Plan (09/20/2024 8:17 AM CDT): Patient reports pain in upper right arm that occurs with movement at the elbow or shoulder. Most likely musculoskeletal in origin; no warmth, erythema, or swelling on exam. Per ID, patient with tenderness during active ROM but no tenderness with passive ROM; exam not consistent with septic arthritis. - RUE doppler negative for DVT - Pain management medications under abdominal pain Assessment & Plan (09/19/2024 2:09 PM CDT): Patient reports pain in upper right arm that occurs with movement at the elbow or shoulder. Most likely musculoskeletal in origin; no warmth, erythema, or swelling on exam. Per ID, patient with tenderness during active ROM but no tenderness with passive ROM; exam not consistent with septic arthritis. - RUE doppler negative for DVT - Pain management medications under abdominal pain Bacteremia 09/17/2024 Assessment & Plan (09/29/2024 7:57 AM CDT): Patient reported fevers up to 102F at home on 09/14 prior to admission. Has been afebrile with WBC wnl during admission. - ID consulted; appreciate recs - Blood cultures - 09/14: 1/ with MSSA. Subsequent cultures on 09/16, 08/21 8 are negative - TTE 09/18 with no evidence of vegetations - abx: cefepime and vancomycin (09/14 - 09/16), ceftriaxone (09/16 - 09/19), s/p dalbavancin x1 (09/19) per ID recs to complete treatment Assessment & Plan (09/28/2024 8:11 AM CDT): Patient reported fevers up to 102F at home on 09/14 prior to admission. Has been afebrile with WBC wnl during admission. - ID consulted; appreciate recs - Blood cultures - 09/14: 1/2 with MSSA. Subsequent cultures on 09/16, 08/21 8 are negative - TTE 09/18 with no evidence of vegetations - abx: cefepime and vancomycin (09/14 - 09/16), ceftriaxone (09/16 - 09/19), s/p dalbavancin x1 (09/19) per ID recs to complete treatment Assessment & Plan (09/27/2024 7:42 AM CDT): Patient reported fevers up to 102F at home on 09/14 prior to admission. Has been afebrile with WBC wnl during admission. - ID consulted; appreciate recs - Blood cultures - 09/14: 1/2 with MSSA. Subsequent cultures on 09/16, 08/21 8 are negative - TTE 09/18 with no evidence of vegetations - abx: cefepime and vancomycin (09/14 - 09/16), ceftriaxone (09/16 - 09/19), s/p dalbavancin x1 (09/19) per ID recs to complete treatment Assessment & Plan (09/26/2024 8:18 AM CDT): Patient reported fevers up to 102F at home on 09/14 prior to admission. Has been afebrile with WBC wnl during admission. - ID consulted; appreciate recs - Blood cultures - 09/14: 1/2 with MSSA. Subsequent cultures on 09/16, 08/21 8 are negative - TTE 09/18 with no evidence of vegetations - abx: cefepime and vancomycin (09/14 - 09/16), ceftriaxone (09/16 - 09/19), s/p dalbavancin x1 (09/19) per ID recs to complete treatment Assessment & Plan (09/25/2024 5:06 PM CDT): Patient reported fevers up to 102F at home on 09/14 prior to admission. Has been afebrile with WBC wnl during admission. - ID consulted; appreciate recs - Blood cultures - 09/14: 1/2 with MSSA. Subsequent cultures on 09/16, 08/21 8 are negative - TTE 09/18 with no evidence of vegetations - abx: cefepime and vancomycin (09/14 - 09/16), ceftriaxone (09/16 - 09/19), s/p dalbavancin x1 (09/19) per ID recs to complete treatment Assessment & Plan (09/24/2024 8:24 AM CDT): Patient reported fevers up to 102F at home on 09/14 prior to admission. Has been afebrile with WBC wnl during admission. - ID consulted; appreciate recs - Blood cultures - 09/14: 1/2 with MSSA - 09/16: ngtd x 2 - 09/17: ngtd x 2 - TTE 09/18 with no evidence of vegetations - abx: cefepime and vancomycin (09/14 - 09/16), ceftriaxone (09/16 - 09/19), s/p dalbavancin x1 (09/19) per ID recs to complete treatment Assessment & Plan (09/23/2024 4:32 PM CDT): Patient reported fevers up to 102F at home on 09/14 prior to admission. Has been afebrile with WBC wnl during admission. - ID consulted; appreciate recs - Blood cultures - 09/14: 1/2 with MSSA - 09/16: ngtd x 2 - 09/17: ngtd x 2 - TTE 09/18 with no evidence of vegetations - abx: cefepime and vancomycin (09/14 - 09/16), ceftriaxone (09/16 - 09/19), s/p dalbavancin x1 (09/19) per ID recs to complete treatment Assessment & Plan (09/22/2024 1:19 PM CDT): Patient reports fevers up to 102F at home on 09/14 prior to admission. Has been afebrile with WBC wnl during admission. - ID consulted; appreciate recs - Blood cultures - 09/14: 1/2 with MSSA - 09/16: ngtd x 2 - 09/17: ngtd x 2 - TTE 09/18 with no evidence of vegetations - abx: cefepime and vancomycin (09/14 - 09/16), ceftriaxone (09/16 - 09/19), s/p dalbavancin x1 (09/19) per ID recs to complete treatment Assessment & Plan (09/21/2024 7:12 AM CDT): Patient reports fevers up to 102F at home on 09/14 prior to admission. Has been afebrile with WBC wnl during admission. - ID consulted; appreciate recs - Blood cultures - 09/14: 1/2 with MSSA - 09/16: ngtd x 2 - 09/17: ngtd x 2 - TTE 09/18 with no evidence of vegetations - abx: cefepime and vancomycin (09/14 - 09/16), ceftriaxone (09/16 - 09/19), dalbavancin x1 (09/19) per ID recs to complete treatment Assessment & Plan (09/20/2024 12:59 PM CDT): Patient reports fevers up to 102F at home on 09/14 prior to admission. Has been afebrile with WBC wnl during admission. - ID consulted; appreciate recs - Blood cultures - 09/14: 1/2 with MSSA - 09/16: ngtd x 2 - 09/17: ngtd x 2 - TTE 09/18 with no evidence of vegetations - abx: cefepime and vancomycin (09/14 - 09/16), ceftriaxone (09/16 - 09/19), dalbavancin x1 (09/19) per ID recs to complete treatment Assessment & Plan (09/19/2024 2:09 PM CDT): Patient reports fevers up to 102F at home on 09/14 prior to admission. Has been afebrile with WBC wnl during admission. - ID consulted; appreciate recs - Blood cultures - 09/14: 1/2 with MSSA - 09/16: ngtd x 2 - 09/17: ngtd x 2 - TTE 09/18 with no evidence of vegetations - abx: cefepime and vancomycin (09/14 - 09/16), ceftriaxone (09/16 - 09/19), dalbavancin x1 (09/19) per ID recs to complete treatment Assessment & Plan (09/19/2024 1:11 PM CDT): Regarding her MSSA septicemia, I suspect her portal of entry is her R forearm wound. No metastatic infectious foci suspected on exam. Repeat blood cultures from 09/16 NGTD. She has continued on ceftriaxone 2g IV Q12H. TTE obtained without findings of endocarditis. 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 Recommendations: -d/c ceftriaxone 2g IV Q12H -Dalbavancin x1 to complete treatment course (ordered -Please offer hepatitis B vaccine Assessment & Plan (09/17/2024 1:14 PM CDT): Regarding her MSSA septicemia, I suspect her portal of entry is her R forearm wound. No metastatic infectious foci suspected on exam. Repeat blood cultures from 09/16 NGTD. She has continued on ceftriaxone 2g IV Q12H. On assessment today, patient denies fevers/chills/night sweats, n/v/d, itching or rash. Reports her right upper arm is hurting. On assessment, patient with tenderness with after ROM, no tenderness with passive ROM. Exam not consistent with SA. Will continue to monitor. Recommendations: -Continue ceftriaxone 2g IV Q12H -while on the IV antibioitcs, please obtain at least a weekly cbc with diff and CMP for antibiotic toxicity monitoring -will follow up on TTE once obtained -Please obtain daily blood cultures until negative for 48H History of abnormal uterine bleeding 09/14/2024 Assessment & Plan (01/20/2025 1:08 PM CDT): Seen by [employer] during previous hospital stay-Continue home provera 10mg daily Assessment & Plan (01/19/2025 8:40 PM CDT): Seen by [employer] during previous hospital stay-Continue home provera 10mg daily Assessment & Plan (01/18/2025 3:27 PM CDT): Seen by [employer] during previous hospital stay-Continue home provera 10mg daily Assessment & Plan (01/17/2025 2:32 PM CDT): Seen by [employer] during previous hospital stay-Continue home provera 10mg daily Assessment & Plan (01/16/2025 9:26 PM CDT): Seen by [employer] during previous hospital stay-Continue home provera 10mg daily Assessment & Plan (01/15/2025 9:08 PM CDT): Seen by [employer] during previous hospital stay-Continue home provera 10mg daily Assessment & Plan (01/14/2025 11:06 PM CDT): Seen by [employer] during previous hospital stay-Continue home provera 10mg daily Assessment & Plan (01/13/2025 8:04 PM CDT): Seen by [employer] during previous hospital stay-Continue home provera 10mg daily Assessment & Plan (01/12/2025 1:20 PM CDT): Seen by [employer] during previous hospital stay-Continue home provera 10mg daily Assessment & Plan (01/11/2025 12:18 PM CDT): Seen by [employer] during previous hospital stay-Continue home provera 10mg daily Assessment & Plan (01/10/2025 11:26 AM CDT): Seen by [employer] during previous hospital stay-Continue home provera 10mg daily Assessment & Plan (01/09/2025 11:58 AM CDT): Seen by [employer] during previous hospital stay-Continue home provera 10mg daily Assessment & Plan (01/08/2025 10:29 AM CDT): Seen by [employer] during previous hospital stay-Continue home provera 10mg daily Assessment & Plan (01/07/2025 1:32 PM CDT): Seen by [employer] during previous hospital stay-Continue home provera 10mg daily Assessment & Plan (01/06/2025 1:47 PM CDT): Seen by [employer] during previous hospital stay-Continue home provera 10mg daily Assessment & Plan (01/05/2025 8:19 PM CDT): Seen by [employer] during previous hospital stay-Continue home provera 10mg daily Assessment & Plan (01/04/2025 2:44 PM CDT): Seen by [employer] during previous hospital stay-Continue home provera 10mg daily Assessment & Plan (01/03/2025 6:12 PM CDT): Seen by [employer] during previous hospital stay-Continue home provera 10mg daily Assessment & Plan (01/02/2025 7:31 PM CDT): Seen by [employer] during previous hospital stay-Continue home provera 10mg daily Assessment & Plan (01/01/2025 6:42 PM CDT): Seen by [employer] during previous hospital stay-Continue home provera 10mg daily Assessment & Plan (12/31/2024 6:52 PM CDT): Seen by [employer] during previous hospital stay-Continue home provera 10mg daily Assessment & Plan (12/30/2024 4:26 PM CDT): Seen by [employer] during previous hospital stay-Continue home provera 10mg daily Assessment & Plan (12/29/2024 10:35 AM CDT): Seen by [employer] during previous hospital stay-Continue home provera 10mg daily Assessment & Plan (12/28/2024 11:23 AM CDT): Seen by [employer] during previous hospital stay-Continue home provera 10mg daily Assessment & Plan (12/27/2024 10:44 AM CDT): Seen by [employer] during previous hospital stay-Continue home provera 10mg daily Assessment & Plan (12/26/2024 1:28 PM CDT): Seen by [employer] during previous hospital stay-Continue home provera 10mg daily Assessment & Plan (12/25/2024 1:36 PM CDT): Seen by [employer] during previous hospital stay-Continue home provera 10mg daily Assessment & Plan (12/24/2024 12:30 PM CDT): Seen by [employer] during previous hospital stay-Continue home provera 10mg daily Assessment & Plan (12/23/2024 12:16 PM CDT): Seen by [employer] during previous hospital stay-Continue home provera 10mg daily Assessment & Plan (12/22/2024 7:49 AM CDT): Seen by [employer] during previous hospital stay-Continue home provera 10mg daily Assessment & Plan (12/21/2024 8:31 AM CDT): Seen by [employer] during previous hospital stay-Continue home provera 10mg daily Assessment & Plan (12/20/2024 9:08 AM CDT): Seen by [employer] during previous hospital stay-Continue home provera 10mg daily Assessment & Plan (12/19/2024 7:54 AM CDT): Seen by [employer] during previous hospital stay-Continue home provera 10mg daily Assessment & Plan (12/18/2024 8:14 AM CDT): Seen by [employer] during previous hospital stay-Continue home provera 10mg daily Assessment & Plan (12/17/2024 1:15 PM CDT): Seen by [employer] during previous hospital stay-Continue home provera 10mg daily Assessment & Plan (12/16/2024 2:46 PM CDT): Seen by [employer] during previous hospital stay-Continue home provera 10mg daily Assessment & Plan (12/15/2024 12:46 PM CDT): Seen by [employer] during previous hospital stay-Continue home provera 10mg daily Assessment & Plan (12/14/2024 10:58 AM CDT): Seen by [employer] during previous hospital stay-Continue home provera 10mg daily Assessment & Plan (12/13/2024 1:19 PM CDT): Seen by [employer] during previous hospital stay-Continue home provera 10mg daily Assessment & Plan (12/12/2024 2:48 PM CDT): Seen by [employer] during previous hospital stay-Continue home provera 10mg daily Assessment & Plan (12/11/2024 8:52 PM CDT): Seen by [employer] during previous hospital stay-Continue home provera 10mg daily Assessment & Plan (12/10/2024 8:41 AM CDT): Seen by [employer] during previous hospital stay-Continue home provera 10mg daily Assessment & Plan (12/09/2024 8:35 AM CDT): Seen by [employer] during previous hospital stay-Continue home provera 10mg daily Assessment & Plan (12/08/2024 2:09 PM CDT): Seen by [employer] during previous hospital stay-Continue home provera 10mg daily Assessment & Plan (12/07/2024 1:18 PM CDT): Seen by [employer] during previous hospital stay-Continue home provera 10mg daily Assessment & Plan (12/06/2024 2:19 PM CDT): Seen by [employer] during previous hospital stay-Continue home provera 10mg daily Assessment & Plan (12/05/2024 4:47 PM CDT): Seen by [employer] during previous hospital stay-Continue home provera 10mg daily Assessment & Plan (12/04/2024 2:08 PM CDT): Seen by [employer] during previous hospital stay-Continue home provera 10mg daily Assessment & Plan (12/03/2024 6:06 PM CDT): Seen by [employer] during previous hospital stay-Continue home provera 10mg daily Assessment & Plan (12/02/2024 2:26 PM CDT): Seen by [employer] during previous hospital stay-Continue home provera 10mg daily Assessment & Plan (12/01/2024 9:54 AM CDT): Seen by [employer] during previous hospital stay-Continue home provera 10mg daily Assessment & Plan (11/30/2024 1:01 PM CDT): Seen by [employer] during previous hospital stay-Continue home provera 10mg daily Assessment & Plan (11/29/2024 11:20 AM CDT): Seen by [employer] during previous hospital stay-Continue home provera 10 mg daily Assessment & Plan (11/28/2024 1:42 PM CDT): Seen by [employer] during previous hospital stay-Continue home provera 10 mg daily Assessment & Plan (11/27/2024 10:16 AM CDT): Seen by [employer] during previous hospital stay-Continue home provera 10 mg daily Assessment & Plan (11/26/2024 12:13 PM CDT): Seen by [employer] during previous hospital stay-Continue home provera 10 mg daily Assessment & Plan (11/25/2024 3:35 PM CDT): Seen by [employer] during previous hospital stay-Continue home provera 10 mg daily Assessment & Plan (11/24/2024 8:49 AM CDT): Seen by [employer] during previous hospital stay -Continue home provera 10 mg daily Assessment & Plan (11/23/2024 1:10 PM CDT): Seen by [employer] during previous hospital stay -Continue home provera 10 mg daily Assessment & Plan (11/22/2024 12:21 PM CDT): Seen by [employer] during previous hospital stay -Continue home provera 10 mg daily Assessment & Plan (11/21/2024 3:38 PM CDT): Seen by [employer] during previous hospital stay -Continue home provera 10 mg daily Assessment & Plan (11/20/2024 3:42 PM CDT): Seen by [employer] during previous hospital stay -Continue home provera 10 mg daily Assessment & Plan (11/19/2024 12:57 PM CDT): Seen by [employer] during previous hospital stay -Continue home provera 10 mg daily Assessment & Plan (11/18/2024 6:00 PM CDT): Seen by [employer] during previous hospital stay -Continue home provera 10 mg daily Assessment & Plan (11/11/2024 3:08 PM CDT): Seen by [employer] during previous hospital stay -Continue home provera 10 mg daily Assessment & Plan (11/10/2024 7:55 AM CDT): Seen by [employer] during previous hospital stay -Continue home provera 10 mg daily Assessment & Plan (11/09/2024 7:26 AM CDT): Seen by [employer] during previous hospital stay -Continue home provera 10 mg daily Assessment & Plan (11/08/2024 8:50 AM CDT): Seen by [employer] during previous hospital stay -Continue home provera 10 mg daily Assessment & Plan (11/07/2024 7:56 AM CDT): Seen by [employer] during previous hospital stay -Continue home provera 10 mg daily Assessment & Plan (11/06/2024 9:12 AM CDT): Seen by [employer] during previous hospital stay -Continue home provera 10 mg daily Assessment & Plan (11/05/2024 7:22 AM CDT): Seen by [employer] during previous hospital stay -Continue home provera 10 mg daily Assessment & Plan (11/04/2024 5:53 PM CDT): Seen by [employer] during previous hospital stay -Continue home provera 10 mg daily Assessment & Plan (11/03/2024 8:03 AM CDT): Seen by [employer] during previous hospital stay -Continue home provera 10 mg daily Assessment & Plan (11/02/2024 7:50 AM CDT): Seen by [employer] during previous hospital stay -Continue home provera 10 mg daily Assessment & Plan (11/01/2024 8:08 AM CDT): Seen by [employer] during previous hospital stay -Continue home provera 10 mg daily Assessment & Plan (10/31/2024 7:30 AM CDT): Seen by [employer] during previous hospital stay -Continue home provera 10 mg daily Assessment & Plan (10/31/2024 2:50 AM CDT): Seen by [employer] during previous hospital stay -Continue home provera 10 mg daily Assessment & Plan (09/29/2024 6:14 PM CDT): Reported a few days of vaginal bleeding on admission; unsure if related to menstruation. Hgb is stable. - Continue home provera 10 mg daily. - Evaluated by [facility] last admission; has outpatient follow up on 09/25, will need to reschedule (patient is aware) Assessment & Plan (09/28/2024 8:11 AM CDT): Reported a few days of vaginal bleeding on admission; unsure if related to menstruation. Hgb is stable. - Continue home provera 10 mg daily. - Evaluated by [facility] last admission; has outpatient follow up on 09/25, will need to reschedule Assessment & Plan (09/27/2024 7:42 AM CDT): Reported a few days of vaginal bleeding on admission; unsure if related to menstruation. Hgb is stable. - Continue home provera 10 mg daily. - Evaluated by [facility] last admission; has outpatient follow up on 09/25, will need to reschedule Assessment & Plan (09/26/2024 8:18 AM CDT): Reported a few days of vaginal bleeding on admission; unsure if related to menstruation. Hgb is stable. - Continue home provera 10 mg daily. - Evaluated by [facility] last admission; has outpatient follow up on 09/25, will need to reschedule Assessment & Plan (09/25/2024 5:06 PM CDT): Reported a few days of vaginal bleeding on admission; unsure if related to menstruation. Hgb is stable. - Continue home provera 10 mg daily. - Evaluated by [facility] last admission; has outpatient follow up on 09/25, will need to reschedule Assessment & Plan (09/24/2024 8:24 AM CDT): REPORTED a few days of vaginal bleeding on admission; unsure if related to menstruation. Hgb is stable. - Continue home provera 10 mg daily. - Evaluated by [facility] last admission; has outpatient follow up on 09/25 Assessment & Plan (09/23/2024 4:32 PM CDT): REPORTED a few days of vaginal bleeding on admission; unsure if related to menstruation. Hgb is stable. - Continue home provera 10 mg daily. - Evaluated by [facility] last admission; has outpatient follow up on 09/25 Assessment & Plan (09/22/2024 7:06 AM CDT): Reports a few days of vaginal bleeding on admission; unsure if related to menstruation due to abnormal cycles. Hgb is stable. - Continue home provera 10 mg daily. - Evaluated by [facility] last admission; has outpatient follow up on 09/25 Assessment & Plan (09/21/2024 7:12 AM CDT): Reports a few days of vaginal bleeding on admission; unsure if related to menstruation due to abnormal cycles. Hgb is stable. - Continue home provera 10 mg daily. - Evaluated by [facility] last admission; has outpatient follow up on 09/25 Assessment & Plan (09/20/2024 8:17 AM CDT): Reports a few days of vaginal bleeding on admission; unsure if related to menstruation due to abnormal cycles. Hgb is stable. - Continue home provera 10 mg daily. - Evaluated by [facility] last admission; has outpatient follow up on 09/25 Assessment & Plan (09/19/2024 1:42 PM CDT): Reports a few days of vaginal bleeding on admission; unsure if related to menstruation due to abnormal cycles. Hgb is stable. - Continue home provera 10 mg daily. - Evaluated by [facility] last admission; has outpatient follow up on 09/25 Assessment & Plan (09/14/2024 10:52 PM CDT): No bleeding on presentation. Continue home provera 10 mg daily. 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 Evaluated by vascular surgery and was discharged on ASA with outpatient follow up. 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 Evaluated by vascular surgery and was discharged on ASA with outpatient follow up. 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 Evaluated by vascular surgery and was discharged on ASA with outpatient follow up. 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 Evaluated by vascular surgery and was discharged on ASA with outpatient follow up. 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 Evaluated by vascular surgery and was discharged on ASA with outpatient follow up. - Continue home ASA Assessment & Plan (09/24/2024 8:24 AM CDT): During previous admission noted to have dusky RUE, on US duplex 07/07 was noted to have an occluded right radial artery. Evaluated by vascular surgery and was discharged on ASA with outpatient follow up. 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 Evaluated by vascular surgery and was discharged on ASA with outpatient follow up. 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 Evaluated by vascular surgery and was discharged on ASA with outpatient follow up. - Continue home ASA. 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 Evaluated by vascular surgery and was discharged on ASA with outpatient follow up. - Continue home ASA. 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 Evaluated by vascular surgery and was discharged on ASA with outpatient follow up. - Continue home ASA. 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 Evaluated by vascular surgery and was discharged on ASA with outpatient follow up. - Continue home ASA. 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 Evaluated by vascular surgery and was discharged on ASA with outpatient follow up. - Continue home ASA. 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 [facility] - continue with dressing changes per wound care - 01/05 PRS signed off - will see her o/p ~ 1 month Assessment & Plan (01/17/2025 2:32 PM CDT): - 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 [facility] - continue with dressing changes per wound care - 01/05 PRS signed off - will see her o/p ~ 1 month Assessment & Plan (01/16/2025 9:26 PM CDT): - 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 [facility] - continue with dressing changes per wound care - 01/05 PRS signed off - will see her o/p ~ 1 month Assessment & Plan (01/15/2025 9:08 PM CDT): - 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 [facility] - continue with dressing changes per wound care - 01/05 PRS signed off - will see her o/p ~ 1 month Assessment & Plan (01/14/2025 11:06 PM CDT): - 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 [facility] - continue with dressing changes per wound care - 01/05 PRS signed off - will see her o/p ~ 1 month Assessment & Plan (01/13/2025 8:04 PM CDT): - 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 [facility] - continue with dressing changes per wound care - 01/05 PRS signed off - will see her o/p ~ 1 month Assessment & Plan (01/12/2025 1:20 PM CDT): - 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 [facility] - continue with dressing changes per wound care - 01/05 PRS signed off - will see her o/p ~ 1 month Assessment & Plan (01/11/2025 12:18 PM CDT): - 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 [facility] - continue with dressing changes per wound care - 01/05 PRS signed off - will see her o/p ~ 1 month Assessment & Plan (01/10/2025 11:26 AM CDT): - 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 [facility] - continue with dressing changes per wound care - 01/05 PRS signed off - will see her o/p ~ 1 month Assessment & Plan (01/09/2025 11:58 AM CDT): - 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 [facility] - continue with dressing changes per wound care - 01/05 PRS signed off - will see her o/p ~ 1 month Assessment & Plan (01/08/2025 10:29 AM CDT): - 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 [facility] - continue with dressing changes per wound care - 01/05 PRS signed off - will see her o/p ~ 1 month Assessment & Plan (01/07/2025 1:32 PM CDT): - 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 [facility] - continue with dressing changes per wound care - 01/05 PRS signed off - will see her o/p ~ 1 month Assessment & Plan (01/06/2025 1:47 PM CDT): - 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 [facility] - continue with dressing changes per wound care - 01/05 PRS signed off - will see her o/p ~ 1 month Assessment & Plan (01/05/2025 8:19 PM CDT): - 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 [facility] - continue with dressing changes per wound care - 01/05 PRS signed off - will see her o/p ~ 1 month Assessment & Plan (01/04/2025 2:44 PM CDT): - 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 [facility] - continue with dressing changes per wound care Assessment & Plan (01/03/2025 6:12 PM CDT): - 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 [facility] - continue with dressing changes per wound care Assessment & Plan (01/02/2025 7:31 PM CDT): - 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 [facility] - continue with dressing changes per wound care Assessment & Plan (01/01/2025 6:42 PM CDT): - 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 [facility] - continue with dressing changes per wound care Assessment & Plan (12/31/2024 6:52 PM CDT): - 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 [facility] - continue with dressing changes per wound care Assessment & Plan (12/30/2024 4:26 PM CDT): - 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 [facility] - continue with dressing changes per wound care Assessment & Plan (12/29/2024 10:35 AM CDT): - 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 [facility] - continue with dressing changes per wound care Assessment & Plan (12/28/2024 11:23 AM CDT): - 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 [facility] - continue with dressing changes per wound care Assessment & Plan (12/27/2024 10:44 AM CDT): - 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 [facility] - continue with dressing changes per wound care Assessment & Plan (12/26/2024 1:28 PM CDT): - 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 [facility] - continue with dressing changes per wound care Assessment & Plan (12/25/2024 1:36 PM CDT): - 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 [facility] - continue with dressing changes per wound care Assessment & Plan (12/24/2024 12:30 PM CDT): - 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 [facility] - continue with dressing changes per wound care Assessment & Plan (12/23/2024 12:16 PM CDT): - 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 [facility] - continue with dressing changes per wound care Assessment & Plan (12/22/2024 11:42 AM CDT): - 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 [facility] - continue with dressing changes per wound care Assessment & Plan (12/21/2024 12:09 PM CDT): - 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 [facility] - continue with dressing changes per wound care Assessment & Plan (12/20/2024 9:08 AM CDT): - 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 [facility] - continue with dressing changes per wound care - Dermatology eval for debridement vs OP follow-up Assessment & Plan (12/19/2024 7:54 AM CDT): - 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 [facility] - continue with dressing changes per wound care - Dermatology eval for debridement vs OP follow-up Assessment & Plan (12/18/2024 8:14 AM CDT): - 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 [facility] - continue with dressing changes per wound care - Dermatology eval for debridement vs OP follow-up Assessment & Plan (12/17/2024 1:15 PM CDT): - 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 [facility] - continue with dressing changes per wound care - Dermatology eval for debridement vs OP follow-up Assessment & Plan (12/16/2024 2:46 PM CDT): - 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 [facility] - continue with dressing changes per wound care - Dermatology following for formal debridement vs OP follow-up Assessment & Plan (12/15/2024 12:46 PM CDT): - 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 [facility] - continue with dressing changes per wound care - Dermatology following for formal debridement vs OP follow-up Assessment & Plan (12/14/2024 10:58 AM CDT): - 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 [facility] - continue with dressing changes per wound care - Dermatology following for formal debridement vs OP follow-up Assessment & Plan (12/13/2024 1:19 PM CDT): - 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 [facility] - continue with dressing changes per wound care - Dermatology following for formal debridement vs OP follow-up Assessment & Plan (12/12/2024 2:48 PM CDT): - 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 [facility] - continue with dressing changes per wound care - Dermatology following for formal debridement vs OP follow-up Assessment & Plan (12/11/2024 8:52 PM CDT): - 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 [facility] - continue with dressing changes per wound care - Dermatology following for formal debridement vs OP follow-up Assessment & Plan (12/10/2024 8:41 AM CDT): - 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 [facility] - continue with dressing changes per wound care - Dermatology following for formal debridement vs OP follow-up Assessment & Plan (12/09/2024 8:35 AM CDT): - 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 [facility] - continue with dressing changes per wound care - Dermatology following for formal debridement vs OP follow-up Assessment & Plan (12/08/2024 2:09 PM CDT): - 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 [facility] - continue with dressing changes per wound care - Dermatology following for formal debridement vs OP follow-up Assessment & Plan (12/07/2024 1:18 PM CDT): - 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 [facility] - continue with dressing changes per wound care - Dermatology following for formal debridement vs OP follow-up Assessment & Plan (12/06/2024 2:19 PM CDT): - 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 [facility] - continue with dressing changes per wound care - Dermatology following for formal debridement vs OP follow-up Assessment & Plan (12/05/2024 4:47 PM CDT): - 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 [facility] - continue with dressing changes per wound care - Dermatology following for formal debridement vs OP follow-up Assessment & Plan (12/04/2024 2:08 PM CDT): - 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 [facility] - continue with dressing changes per wound care - Dermatology following for formal debridement vs OP follow-up Assessment & Plan (12/03/2024 6:06 PM CDT): - 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 [facility] - continue with dressing changes per wound care - Dermatology following for formal debridement vs OP follow-up Assessment & Plan (12/02/2024 2:26 PM CDT): - 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 [facility] - continue with dressing changes per wound care - Dermatology following for formal debridement vs OP follow-up Assessment & Plan (12/01/2024 9:54 AM CDT): - 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 [facility] - continue with dressing changes per wound care - Dermatology following for formal debridement vs OP follow-up Assessment & Plan (11/30/2024 1:01 PM CDT): - 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 [facility] - continue with dressing changes per wound care - Dermatology following for formal debridement vs OP follow-up Assessment & Plan (11/29/2024 11:20 AM CDT): - 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 [facility] - continue with dressing changes per wound care - Dermatology following for formal debridement vs OP follow-up Assessment & Plan (11/28/2024 1:42 PM CDT): - 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 [facility] - continue with dressing changes per wound care - Dermatology following for formal debridement vs OP follow-up Assessment & Plan (11/27/2024 10:16 AM CDT): - 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 [facility] - continue with dressing changes per wound care - Dermatology following for formal debridement vs OP follow-up Assessment & Plan (11/26/2024 12:13 PM CDT): - 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 [facility] - continue with dressing changes per wound care - Dermatology following for formal debridement vs OP follow-up Assessment & Plan (11/25/2024 3:35 PM CDT): - 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 [facility] - continue with dressing changes per wound care - Dermatology following for formal debridement vs OP follow-up Assessment & Plan (11/24/2024 8:49 AM CDT): -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 a line -continue with dressing changes per wound care - Dermatology following for formal debridement vs OP follow-up Assessment & Plan (11/23/2024 1:10 PM CDT): -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 a line -continue with dressing changes per wound care - Dermatology following for formal debridement vs OP follow-up Assessment & Plan (11/22/2024 7:23 PM CDT): -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 a line -continue with dressing changes per wound care - Dermatology following for formal debridement vs OP follow-up Assessment & Plan (11/21/2024 3:38 PM CDT): -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 a line -ASA -wound care on board - Dermatology following for formal debridement vs OP follow-up Assessment & Plan (11/20/2024 3:42 PM CDT): -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 a line -ASA -wound care on board - Dermatology following for formal debridement vs OP follow-up Assessment & Plan (11/19/2024 12:57 PM CDT): -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 a line -ASA -wound care on board Assessment & Plan (11/18/2024 6:00 PM CDT): -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 a line -ASA -wound care on board Assessment & Plan (11/11/2024 3:08 PM CDT): -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 a line -ASA -wound care on board Assessment & Plan (11/10/2024 7:55 AM CDT): -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 a line -ASA -wound care on board Assessment & Plan (11/09/2024 7:26 AM CDT): -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 a line -ASA -wound care on board Assessment & Plan (11/08/2024 8:50 AM CDT): -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 a line -ASA -wound care on board Assessment & Plan (11/07/2024 7:56 AM CDT): -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 a line -ASA -wound care on board Assessment & Plan (11/06/2024 9:12 AM CDT): -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 a line -ASA -wound care on board Assessment & Plan (11/05/2024 7:22 AM CDT): -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 a line -ASA -wound care on board Assessment & Plan (11/04/2024 5:53 PM CDT): -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 a line -ASA -wound care on board Assessment & Plan (11/03/2024 8:03 AM CDT): -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 a line -ASA -wound care consulted Assessment & Plan (11/02/2024 7:50 AM CDT): -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 a line -ASA -wound care consulted Assessment & Plan (11/01/2024 8:08 AM CDT): -RUE wound 2/2 to hx of arterial thrombus from a line -wound care consulted Assessment & Plan (10/31/2024 5:01 PM CDT): -RUE wound 2/2 to hx of arterial thrombus from a line -wound care consulted Assessment & Plan (10/31/2024 2:50 AM CDT): -wound care consulted Assessment & Plan (10/22/2024 9:14 PM CDT): Prior debirdements (09/14) by plastics. Prev had wound vac, removed on d/c. Seen by ID, who were reassured -Plastics outpatient f/u Assessment & Plan (10/21/2024 6:17 PM CDT): Prior debirdements (09/14) by plastics. Prev had wound vac, removed on d/c. Seen by ID, who were reassured -Plastics outpatient f/u -wound care following, appreciate recs Assessment & Plan (10/20/2024 3:03 PM CDT): Prior debirdements (09/14) by plastics. Prev had wound vac, removed on d/c. Seen by ID, who were reassured -Plastics OP fu -wound care following, appreciate recs Assessment & Plan (10/19/2024 9:31 AM CDT): Prior debirdements (09/14) by plastics. Prev had wound vac, removed on d/c. Seen by ID, who were reassured -Plastics OP fu -wound care following, appreciate recs Assessment & Plan (10/18/2024 8:51 AM CDT): Prior debirdements (09/14) by plastics. Prev had wound vac, removed on d/c. Seen by ID, who were reassured -Plastics OP fu -wound care following, appreciate recs Assessment & Plan (10/17/2024 1:19 PM CDT): Prior debirdements (09/14) by plastics. Prev had wound vac, removed on d/c. Seen by ID, who were reassured -Plastics OP fu -wound care following, appreciate recs Assessment & Plan (10/16/2024 1:02 PM CDT): Prior debirdements (09/14) by plastics. Prev had wound vac, removed on d/c. Seen by ID, who were reassured -Plastics OP fu -wound care following, appreciate recs Assessment & Plan (10/15/2024 10:10 AM CDT): Prior debirdements (09/14) by plastics. Prev had wound vac, removed on d/c. Seen by ID, who were reassured -Plastics OP fu -wound care following, appreciate recs Assessment & Plan (10/14/2024 9:34 AM CDT): Prior debirdements (09/14) by plastics. Prev had wound vac, removed on d/c. Seen by ID, who were reassured -Plastics OP fu -wound care following, appreciate recs Assessment & Plan (10/13/2024 5:52 PM CDT): Prior debirdements (09/14) by plastics. Prev had wound vac, removed on d/c. Seen by ID, who were reassured -Plastics OP fu -wound care following, appreciate recs Assessment & Plan (10/12/2024 11:25 AM CDT): Prior debirdements (09/14) by plastics. Prev had wound vac, removed on d/c. Seen by ID, who were reassured -Plastics OP fu -wound care following, appreciate recs Assessment & Plan (10/11/2024 10:03 AM CDT): Prior debirdements (09/14) by plastics. Prev had wound vac, removed on d/c. Seen by ID, who were reassured -Plastics OP fu -wound care following, appreciate recs Assessment & Plan (10/10/2024 2:50 PM CDT): Prior debirdements (09/14) by plastics. Prev had wound vac, removed on d/c. Seen by ID, who were reassured -Plastics OP fu -wound care following, appreciate recs Assessment & Plan (10/09/2024 10:57 AM CDT): Prior debirdements (09/14) by plastics. Prev had wound vac, removed on d/c. Seen by ID, who were reassured -Plastics OP fu -wound consult Assessment & Plan (10/08/2024 3:33 PM CDT): Prior debirdements (09/14) by plastics. Prev had wound vac, removed on d/c. Seen by ID, who were reassured -Plastics OP fu -wound consult Assessment & Plan (10/07/2024 7:16 AM CDT): Prior debirdements (09/14) by plastics. Prev had wound vac, removed on d/c. 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 - Plastic surgery following; s/p bedside debridement on 09/14 - Wound cultures: MSSA and rare E.faecalis; treated with antibiotics as per bacteremia above - Wound care following for veraflo wound vac; wound VAC removed today. 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 - Plastic surgery following; s/p bedside debridement on 09/14 - Wound care following for veraflo wound vac; plan for wound VAC change 09/29 (still with large amount of drainage- serous). 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 Was present during previous admission. 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 Was present during previous admission. 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 Was present during previous admission. 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 Was present during previous admission. 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 Was present during previous admission. 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 Was present during previous admission. 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 Was present during previous admission. 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 Was present during previous admission. - Plastic surgery following; s/p bedside debridement on 09/14 - Wound care consulted for veraflo - Wound cultures: prelim read with MSSA and enterococcus faecalis - abx: vancomycin (09/14 - 09/16), ceftriaxone (09/16 - 09/19), dalbavancin x1 (09/19) per ID recs to complete treatment Assessment & Plan (09/19/2024 1:11 PM CDT): Patient with a chronic right FA wound that has been there for over a month since her previous ICU stay. Reported she was fluid overloaded and her forearm skin brok down. They have been performing wound care with betadine and zinc wound since she discharge 1-2 weeks ago. PRS was consulted on 09/14 and underwent bedside wound debridement. Culture obtained and growing MSSA and enterococcus faecalis. Recommend continuing ceftriaxone at this time as this is the predominant pathogen. If wound worsens, recommend broadening coverage to include treatment of the enterococcus. PRS following with plans for veraflow wound vac placement in the new future. Recommendations: -Appreciate PRS recs -Dalbavancin to complete treatment course of SSTI -Thank you for allowing us to participate in the care of this patient. For questions or concerns, please do not hesitate to reach out. ID signing off. Assessment & Plan (09/17/2024 1:14 PM CDT): Patient with a chronic right FA wound that has been there for over a month since her previous ICU stay. Reported she was fluid overloaded and her forearm skin brok down. They have been performing wound care with betadine and zinc wound since she discharge 1-2 weeks ago. PRS was consulted on 09/14 and underwent bedside wound debridement. Culture obtained and growing MSSA and enterococcus faecalis. Recommend continuing ceftriaxone at this time as this is the predominant pathogen. If wound worsens, recommend broadening coverage to include treatment of the enterococcus. 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 Was present during previous admission. - Plastic surgery consulted S/p debridement at bedside. - Wound Cultures, gram stain with GPC, follow up cultures - Continue Vancomycin. Shock 08/29/2024 Assessment & Plan (09/05/2024 1:34 PM CDT): -septic shock: Twice: (Improved) 1st times # E coli bacteremia: markham-susceptible - presumed source vs colovesical fistula - patient developed shivering and met SIRS criteria for sepsis most likely 2/2 source. Blood cultures (/) growing E. Faecium. Completed IV zosyn and linezolid - 2nd times positive UA, rest of fever workup is negative, treated with zosyn., off zosyn 08/25, off linezolid 08/29 Assessment & Plan (09/04/2024 3:38 PM CDT): -septic shock: Twice: (Improved) 1st times # E coli bacteremia: markham-susceptible - presumed source vs colovesical fistula - patient developed shivering and met SIRS criteria for sepsis most likely 2/2 source. Blood cultures (4/9) growing E. Faecium. Completed IV zosyn and linezolid - 2nd times positive UA, rest of fever workup is negative, treated with zosyn., off zosyn 5/5, off linezolid 08/29 Assessment & Plan (09/04/2024 12:00 AM CDT): -septic shock: Twice: (Improved) 1st times # E coli bacteremia: markham-susceptible - presumed source vs colovesical fistula - patient developed shivering and met SIRS criteria for sepsis most likely 2/2 source. Blood cultures (4/9) growing E. Faecium. Completed IV zosyn and linezolid - 2nd times positive UA, rest of fever workup is negative, treated with zosyn., off zosyn 5/5, off linezolid 08/29 Assessment & Plan (09/02/2024 10:16 PM CDT): -septic shock: Twice: (Improved) 1st times # E coli bacteremia: markham-susceptible - presumed source vs colovesical fistula - patient developed shivering and met SIRS criteria for sepsis most likely 2/2 source. Blood cultures (4/9) growing E. Faecium. Completed IV zosyn and linezolid - 2nd times positive UA, rest of fever workup is negative, treated with zosyn., off zosyn 5/5, off linezolid 08/29 Assessment & Plan (09/01/2024 6:41 PM CDT): -septic shock: Twice: (Improved) 1st times # E coli bacteremia: markham-susceptible - presumed source vs colovesical fistula - patient developed shivering and met SIRS criteria for sepsis most likely 2/2 source. Blood cultures (4/9) growing E. Faecium. Completed IV zosyn and linezolid - 2nd times positive UA, rest of fever workup is negative, treated with zosyn. Assessment & Plan (08/31/2024 7:41 AM CDT): -septic shock: Twice: (Improved) 1st times # E coli bacteremia: markham-susceptible - presumed source vs colovesical fistula - patient developed shivering and met SIRS criteria for sepsis most likely 2/2 source. Blood cultures (4/9) growing E. Faecium. Completed IV zosyn and linezolid - 2nd times positive UA, rest of fever workup is negative, treated with zosyn. Assessment & Plan (08/30/2024 8:14 AM CDT): -septic shock: Twice: (Improved) 1st times # E coli bacteremia: markham-susceptible - presumed source vs colovesical fistula - patient developed shivering and met SIRS criteria for sepsis most likely 2/2 source. Blood cultures (4/9) growing E. Faecium. Completed IV zosyn and linezolid - 2nd times positive UA, rest of fever workup is negative, treated with zosyn. Diverticulitis 08/20/2024 Assessment & Plan (11/11/2024 3:08 PM CDT): Etiology: Recurrent UTIs 2/2 colovesical fistula suspected 2/2 recurrent diverticulitis. Admitted on 10/30 iso fever, N/V, increasing abdominal pain. Has been hospitalized 3x since June for similar issues. 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 09/14-09/29: presented for abdominal pain, CT showed sequela of colocolonic fistulae 2/2 complicated diverticulitis. 10/06-10/22 presented for n/v, CT showed acute on chronic diverticulitis with increased inflammation around bladder and sigmoid colon. Imaging this admission: CT abdomen (10/30) showed no new changes. No acute diverticulitis. Given that CRS (10/15) note mentioned that intervention would not be possible during a diverticulitis flare, GI consulted to bill. EGD/ [place] done on 11/03. EGD unremarkable, colonoscopy showed moderate diverticulosis, extrinsic colonic narrowing a/w diverticular opening (fistula not seen). Exam was otherwise normal. Okay to proceed with CRS surgery per GI. Work-up: -UA with 3+ leukocyte esterase, 4+ bacteria. Last urine culture 09/25 showed enterococcus faecium only susceptible to linezolid -CT bilateral femur: no abscess or osteoarthritis. -Urine cx contaminated -10/31 blood cx NGTD Abx: S/p Augmentin (10/30-10/21); Unasyn IV (11/01- 11/05); zosyn 4.5mg IV (11/05- present) + linezolid IV (was home med-present) Plan: - Planned for CRS interventions today sigmoidectomy + colovesicular fistula taken down with primary anastomosis to reduce significant morbidity anticipated with end colostomy vs emergent sigmoidectomy and end colostomy without option for reversal for an extended period of time and until significant weight loss achieved. > Patient will be transferred to CRS care post op. -ID following, recs appreciated -Pain regimen: tylenol 1 g tid scheduled, oxycodone, dilaudid. Also has home gabapentin, oxybutynin, topamax, robaxin continued. Pain management consulted, per their recommendation, adjusted robaxin and gabapentin dosage. Pain team had added amitriptyline which was discontinued on 11/07 for risk of serotonin syndrome w simultaneous use of escitalopram, amitriptyline and linezolid. -Continue TPN due to stool frequently blocking mcclelland during previous hospital stay. Clear liquid diet. -Mcclelland changed 10/30; if repeat UA/ UCx needed will need to be switched to obtain sample. - Increasing acidosis noted on labs as of 11/08, will hold sodium thiosulfate, sepsis workup unrevealing and pt continues to be stable at this time. Bicarb stable as well, will CTM and plan to resume sodium thiosulfate post-OP. 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 Admitted on 10/30 iso fever, N/V, increasing abdominal pain. Has been hospitalized 3x since June for similar issues. 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 09/14-09/29: presented for abdominal pain, CT showed sequela of colocolonic fistulae 2/2 complicated diverticulitis. 10/06-10/22 presented for n/v, CT showed acute on chronic diverticulitis with increased inflammation around bladder and sigmoid colon. Imaging this admission: CT abdomen (10/30) showed no new changes. No acute diverticulitis. Given that CRS (10/15) note mentioned that intervention would not be possible during a diverticulitis flare, GI consulted to bill. EGD/ [place] done on 11/03. EGD unremarkable, colonoscopy showed moderate diverticulosis, extrinsic colonic narrowing a/w diverticular opening (fistula not seen). Exam was otherwise normal. Okay to proceed with CRS surgery per GI. Potential CRS interventions: sigmoidectomy + colovesicular fistula taken down with primary anastomosis to reduce significant morbidity anticipated with end colostomy vs emergent sigmoidectomy and end colostomy without option for reversal for an extended period of time and until significant weight loss achieved. Since prior admit, pt has achieved ~100 lb weight loss. CRS re-engaged this admit. Work-up: -UA with 3+ leukocyte esterase, 4+ bacteria. Last urine culture 09/25 showed enterococcus faecium only susceptible to linezolid -CT bilateral femur: no abscess or osteoarthritis. -Urine cx contaminated -10/31 blood cx NGTD Abx: S/p Augmentin (10/30-10/21); Unasyn IV (11/01- 11/05); zosyn 4.5mg IV (11/05- present) + linezolid IV (was home med-present) Plan: -CRS planning for surgery on 11/11; NPO after MN on 11/11; will continue CLD and TPN until the night prior to sx. TPN can continue till the day of. Continue abx as above. Consulted inpatient anesthesia and wound ostomy for ostomy site marking per their request. PreOP abx ordered by CRS. -ID following, recs appreciated -Pain regimen: tylenol 1 g tid scheduled, oxycodone, dilaudid. Also has home gabapentin, oxybutynin, topamax, robaxin continued. Pain management consulted, per their recommendation, adjusted robaxin and gabapentin dosage. Pain team had added amitriptyline which was discontinued on 11/07 for risk of serotonin syndrome w simultaneous use of escitalopram, amitriptyline and linezolid. -Continue TPN due to stool frequently blocking mcclelland during previous hospital stay. Clear liquid diet. -Mcclelland changed 10/30; if repeat UA/ UCx needed will need to be switched to obtain sample. - Increasing acidosis noted on labs as of 11/08, will hold sodium thiosulfate, sepsis workup unrevealing and pt continues to be stable at this time. Bicarb stable as well, will CTM and plan to resume sodium thiosulfate post-OP. 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 Admitted on 10/30 iso fever, N/V, increasing abdominal pain. Has been hospitalized 3x since June for similar issues. 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 09/14-09/29: presented for abdominal pain, CT showed sequela of colocolonic fistulae 2/2 complicated diverticulitis. 10/06-10/22 presented for n/v, CT showed acute on chronic diverticulitis with increased inflammation around bladder and sigmoid colon. Imaging this admission: CT abdomen (10/30) showed no new changes. No acute diverticulitis. Given that CRS (10/15) note mentioned that intervention would not be possible during a diverticulitis flare, GI consulted to bill. EGD/ [place] done on 11/03. EGD unremarkable, colonoscopy showed moderate diverticulosis, extrinsic colonic narrowing a/w diverticular opening (fistula not seen). Exam was otherwise normal. Okay to proceed with CRS surgery per GI. Potential CRS interventions: sigmoidectomy + colovesicular fistula taken down with primary anastomosis to reduce significant morbidity anticipated with end colostomy vs emergent sigmoidectomy and end colostomy without option for reversal for an extended period of time and until significant weight loss achieved. Since prior admit, pt has achieved ~100 lb weight loss. CRS re-engaged this admit. Work-up: -UA with 3+ leukocyte esterase, 4+ bacteria. Last urine culture 09/25 showed enterococcus faecium only susceptible to linezolid -CT bilateral femur: no abscess or osteoarthritis. -Urine cx contaminated -10/31 blood cx NGTD Abx: S/p Augmentin (10/30-10/21); Unasyn IV (11/01- 11/05); zosyn 4.5mg IV (11/05- present) + linezolid IV (was home med-present) Plan: -CRS planning for surgery on 11/11; NPO after MN on 11/11; will continue CLD and TPN until the night prior to sx. Continue abx as above. Consulted inpatient anesthesia and wound ostomy for ostomy site marking per their request. PreOP abx ordered by CRS. -ID following, recs appreciated -Pain regimen: tylenol 1 g tid scheduled, oxycodone, dilaudid. Also has home gabapentin, oxybutynin, topamax, robaxin continued. Pain management consulted, per their recommendation, adjusted robaxin and gabapentin dosage. Pain team had added amitriptyline which was discontinued on 11/07 for risk of serotonin syndrome w simultaneous use of escitalopram, amitriptyline and linezolid. -Continue TPN due to stool frequently blocking mcclelland during previous hospital stay. Clear liquid diet. -Mcclelland changed 10/30; if repeat UA/ UCx needed will need to be switched to obtain sample. - Increasing acidosis noted on labs as of 11/08, will hold sodium thiosulfate, sepsis workup unrevealing and pt continues to be stable at this time. Bicarb stable as well, will CTM and plan to resume sodium thiosulfate post-OP. 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 Admitted on 10/30 iso fever, N/V, increasing abdominal pain. Has been hospitalized 3x since June for similar issues. 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 09/14-09/29: presented for abdominal pain, CT showed sequela of colocolonic fistulae 2/2 complicated diverticulitis. 10/06-10/22 presented for n/v, CT showed acute on chronic diverticulitis with increased inflammation around bladder and sigmoid colon. Imaging this admission: CT abdomen (10/30) showed no new changes. No acute diverticulitis. Given that CRS (10/15) note mentioned that intervention would not be possible during a diverticulitis flare, GI consulted to bill. EGD/ [place] done on 11/03. EGD unremarkable, colonoscopy showed moderate diverticulosis, extrinsic colonic narrowing a/w diverticular opening (fistula not seen). Exam was otherwise normal. Okay to proceed with CRS surgery per GI. Potential CRS interventions: sigmoidectomy + colovesicular fistula taken down with primary anastomosis to reduce significant morbidity anticipated with end colostomy vs emergent sigmoidectomy and end colostomy without option for reversal for an extended period of time and until significant weight loss achieved. Since prior admit, pt has achieved ~100 lb weight loss. CRS re-engaged this admit. Work-up: -UA with 3+ leukocyte esterase, 4+ bacteria. Last urine culture 09/25 showed enterococcus faecium only susceptible to linezolid -CT bilateral femur: no abscess or osteoarthritis. -Urine cx contaminated -10/31 blood cx NGTD Abx: S/p Augmentin (10/30-10/21); Unasyn IV (11/01- 11/05); zosyn 4.5mg IV (11/05- present) + linezolid IV (was home med-present) Plan: -CRS planning for surgery on 11/11; NPO after MN on 11/11; will continue CLD and TPN until the night prior to sx. Continue abx as above. Consulted inpatient anesthesia and wound ostomy for ostomy site marking per their request. -ID following, recs appreciated -Pain regimen: tylenol 1 g tid scheduled, oxycodone, dilaudid. Also has home gabapentin, oxybutynin, topamax, robaxin continued. Pain management consulted, per their recommendation, adjusted robaxin and gabapentin dosage. Pain team had added amitriptyline which was discontinued on 11/07 for risk of serotonin syndrome w simultaneous use of escitalopram, amitriptyline and linezolid. -Continue TPN due to stool frequently blocking mcclelland during previous hospital stay. Clear liquid diet. -Mcclelland changed 10/30; if repeat UA/ UCx needed will need to be switched to obtain sample. - Increasing acidosis noted on labs as of 11/08, will discontinue sodium thiosulfate and pursue sepsis workup including BCx and RUQ US. 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 Admitted on 10/30 iso fever, N/V, increasing abdominal pain. Has been hospitalized 3x since June for similar issues. 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 09/14-09/29: presented for abdominal pain, CT showed sequela of colocolonic fistulae 2/2 complicated diverticulitis. 10/06-10/22 presented for n/v, CT showed acute on chronic diverticulitis with increased inflammation around bladder and sigmoid colon. Imaging this admission: CT abdomen (10/30) showed no new changes. No acute diverticulitis. Given that CRS (10/15) note mentioned that intervention would not be possible during a diverticulitis flare, GI consulted to bill. EGD/ [place] done on 11/03. EGD unremarkable, colonoscopy showed moderate diverticulosis, extrinsic colonic narrowing a/w diverticular opening (fistula not seen). Exam was otherwise normal. Okay to proceed with CRS surgery per GI. Potential CRS interventions: sigmoidectomy + colovesicular fistula taken down with primary anastomosis to reduce significant morbidity anticipated with end colostomy vs emergent sigmoidectomy and end colostomy without option for reversal for an extended period of time and until significant weight loss achieved. Since prior admit, pt has achieved ~100 lb weight loss. CRS re-engaged this admit. Work-up: -UA with 3+ leukocyte esterase, 4+ bacteria. Last urine culture 09/25 showed enterococcus faecium only susceptible to linezolid -CT bilateral femur: no abscess or osteoarthritis. -Urine cx contaminated -10/31 blood cx NGTD Abx: S/p Augmentin (10/30-10/21); Unasyn IV (11/01- 11/05); zosyn 4.5mg IV (11/05- present) + linezolid IV (was home med-present) Plan: -CRS planning for surgery on 11/11; NPO after MN on 11/11; will continue CLD and TPN until the night prior to sx. Continue abx as above. Consulted inpatient anesthesia and wound ostomy for ostomy site marking per their request. -ID following, recs appreciated -Pain regimen: tylenol 1 g tid scheduled, oxycodone, dilaudid. Also has home gabapentin, oxybutynin, topamax, robaxin continued. Pain management consulted, per their recommendation, adjusted robaxin and gabapentin dosage. Pain team had added amitriptyline which was discontinued on 11/07 for risk of serotonin syndrome w simultaneous use of escitalopram, amitriptyline and linezolid. -Continue TPN due to stool frequently blocking mcclelland during previous hospital stay. Clear liquid diet. -Mcclelland changed 10/30; if repeat UA/ UCx needed will need to be switched to obtain sample. 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 Admitted on 10/30 iso fever, N/V, increasing abdominal pain. Has been hospitalized 3x since June for similar issues. 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 09/14-09/29: presented for abdominal pain, CT showed sequela of colocolonic fistulae 2/2 complicated diverticulitis. 10/06-10/22 presented for n/v, CT showed acute on chronic diverticulitis with increased inflammation around bladder and sigmoid colon. Imaging this admission: CT abdomen (10/30) showed no new changes. No acute diverticulitis. Given that CRS (10/15) note mentioned that intervention would not be possible during a diverticulitis flare, GI consulted to bill. EGD/ [place] done on 11/03. EGD unremarkable, colonoscopy showed moderate diverticulosis, extrinsic colonic narrowing a/w diverticular opening (fistula not seen). Exam was otherwise normal. Okay to proceed with CRS surgery per GI. Potential CRS interventions: sigmoidectomy + colovesicular fistula taken down with primary anastomosis to reduce significant morbidity anticipated with end colostomy vs emergent sigmoidectomy and end colostomy without option for reversal for an extended period of time and until significant weight loss achieved. Since prior admit, pt has achieved ~100 lb weight loss. CRS re-engaged this admit. Work-up: -UA with 3+ leukocyte esterase, 4+ bacteria. Last urine culture 09/25 showed enterococcus faecium only susceptible to linezolid -CT bilateral femur: no abscess or osteoarthritis. -Urine cx contaminated -10/31 blood cx NGTD Abx: S/p Augmentin (10/30-10/21); Unasyn IV (11/01- 11/05); zosyn 4.5mg IV (11/05- present) + linezolid IV (was home med-present) Plan: -CRS planning for surgery on 11/11; NPO after MN on 11/11; will continue CLD and TPN until the night prior to sx. Continue abx as above. Consulted inpatient anesthesia and wound ostomy for ostomy site marking per their request. -ID following, recs appreciated -Pain regimen: tylenol 1 g tid scheduled, oxycodone, dilaudid. Also has home gabapentin, oxybutynin, topamax, robaxin continued. Pain management consulted today, appreciate reccs. -Continue TPN due to stool frequently blocking mcclelland during previous hospital stay. Clear liquid diet. -Mcclelland changed 10/30; if repeat UA/ UCx needed will need to be switched to obtain sample. Assessment & Plan (11/05/2024 12:36 PM CDT): Nina Macias is a 44 y.o. 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 She was re-admitted 10/31 with recurrent fever, nausea, and vomiting with LLQ abdominal pain. CT imaging continued to demonstrate acute on chronic sequela of diverticulitis similar to prior exams. She was continued on amoxicillin-clavulanate and tedizolid was switched to linezolid (10/30-). GI was consulted and are planning on colonoscopy to evaluate her diverticulitis. CRS was consulted and are considering surgical intervention. ID was consulted for antibiotic management. She is at high risk for sepsis given her intra-abdominal disease. She has continued to have fevers despite suppressive antibiotics. This could be partially due to the inability to tolerate oral intake and vomiting up her antibiotics at home in addition. Would recommend switching to IV antibiotics while awaiting surgical intervention. Blood cultures are no growth to date, and urine culture suggests contamination from stool krzysztof, as is expected. Colonoscopy and EGD 11/03 overall unremarkable exams. GI signed off. CRS planning procedure 11/11. Recommendations: -Switch antimicrobials to piperacillin-tazobactam 4.5 g IV q.6 hours for better coverage of potential drug resistant gram negatives -Discontinue ampicillin-sulbactam -Continue linezolid 600 mg Q12H IV. Would monitor for serotonin syndrome given escitalopram and now the addition of amitriptyline, but low concern for risk of this at this time. -Monitor CBC and CMP on the above IV antibiotics. -Appreciate GI and CRS evaluations -CRS planning surgery on 11/11 -Would consider stopping all antimicrobials 24-48 hours after surgical procedure Assessment & Plan (11/05/2024 11:05 AM CDT): Etiology: Recurrent UTIs 2/2 colovesical fistula suspected 2/2 recurrent diverticulitis. Admitted on 10/30 iso fever, N/V, increasing abdominal pain. Has been hospitalized 3x since June for similar issues. 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 09/14-09/29: presented for abdominal pain, CT showed sequela of colocolonic fistulae 2/2 complicated diverticulitis. 10/06-10/22 presented for n/v, CT showed acute on chronic diverticulitis with increased inflammation around bladder and sigmoid colon. Imaging this admission: CT abdomen (10/30) showed no new changes. No acute diverticulitis. Given that CRS (10/15) note mentioned that intervention would not be possible during a diverticulitis flare, GI consulted to bill. EGD/ [place] done on 11/03. EGD unremarkable, colonoscopy showed moderate diverticulosis, extrinsic colonic narrowing a/w diverticular opening (fistula not seen). Exam was otherwise normal. Okay to proceed with CRS surgery per GI. Potential CRS interventions: sigmoidectomy + colovesicular fistula taken down with primary anastomosis to reduce significant morbidity anticipated with end colostomy vs emergent sigmoidectomy and end colostomy without option for reversal for an extended period of time and until significant weight loss achieved. Since prior admit, pt has achieved ~100 lb weight loss. CRS re-engaged this admit. Work-up: -UA with 3+ leukocyte esterase, 4+ bacteria. Last urine culture 09/25 showed enterococcus faecium only susceptible to linezolid -CT bilateral femur: no abscess or osteoarthritis. -Urine cx contaminated -10/31 blood cx NGTD Abx: S/p Augmentin (10/30-10/21); Unasyn IV (11/01-present) + linezolid IV (was home med-present) Plan: -CRS planning for surgery on 11/11; NPO after MN on 11/11; will continue CLD and TPN until the night prior to sx. Continue abx as above. Consulted inpatient anesthesia and wound ostomy for ostomy site marking per their request. -ID following, recs appreciated -Pain regimen: tylenol 1 g tid scheduled, oxycodone, dilaudid. Also has home gabapentin, oxybutynin, topamax, robaxin continued. Pain management consulted today, appreciate reccs. -Continue TPN due to stool frequently blocking mcclelland during previous hospital stay. Clear liquid diet -Mcclelland changed 10/30; if repeat UA/ UCx needed will need to be switched to obtain sample. 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 Admitted on 10/30 iso fever, N/V, increasing abdominal pain. Has been hospitalized 3x since June for similar issues. 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 09/14-09/29: presented for abdominal pain, CT showed sequela of colocolonic fistulae 2/2 complicated diverticulitis. 10/06-10/22 presented for n/v, CT showed acute on chronic diverticulitis with increased inflammation around bladder and sigmoid colon. Imaging this admission: CT abdomen (10/30) showed no new changes. No acute diverticulitis. Given that CRS (10/15) note mentioned that intervention would not be possible during a diverticulitis flare, GI consulted to bill. EGD/ [place] done on 11/03. EGD unremarkable, colonoscopy showed moderate diverticulosis, extrinsic colonic narrowing a/w diverticular opening (fistula not seen). Exam was otherwise normal. Okay to proceed with CRS surgery per GI. Potential CRS interventions: sigmoidectomy + colovesicular fistula taken down with primary anastomosis to reduce significant morbidity anticipated with end colostomy vs emergent sigmoidectomy and end colostomy without option for reversal for an extended period of time and until significant weight loss achieved. Since prior admit, pt has achieved ~100 lb weight loss. CRS re-engaged this admit. Work-up: -UA with 3+ leukocyte esterase, 4+ bacteria. Last urine culture 09/25 showed enterococcus faecium only susceptible to linezolid -CT bilateral femur: no abscess or osteoarthritis. -Urine cx contaminated -10/31 blood cx NGTD Abx: S/p Augmentin (10/30-10/21); Unasyn IV (11/01-present) + linezolid IV (was home med-present) Plan: -CRS planning for surgery on 11/11; NPO after MN on 11/11; will continue CLD and TPN until the night prior to sx. Continue abx as above. -ID following, recs appreciated -Pain regimen: tylenol 1 g tid scheduled, oxycodone, dilaudid. Also has home gabapentin, oxybutynin, topamax, robaxin continued. Pain management consulted today, appreciate reccs. -Continue TPN due to stool frequently blocking mcclelland during previous hospital stay. Clear liquid diet -Mcclelland changed 10/30; if repeat UA/ UCx needed will need to be switched to obtain sample. Assessment & Plan (11/03/2024 12:53 PM CDT): Nina Macias is a 44 y.o. 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 She was re-admitted 10/31 with recurrent fever, nausea, and vomiting with LLQ abdominal pain. CT imaging continued to demonstrate acute on chronic sequela of diverticulitis similar to prior exams. She was continued on amoxicillin-clavulanate and tedizolid was switched to linezolid (). GI was consulted and are planning on colonoscopy to evaluate her diverticulitis. CRS was consulted and are considering surgical intervention. ID was consulted for antibiotic management. She is at high risk for sepsis given her intra-abdominal disease. She has continued to have fevers despite suppressive antibiotics. This could be partially due to the inability to tolerate oral intake and vomiting up her antibiotics at home in addition. Would recommend switching to IV antibiotics while awaiting surgical intervention. Blood cultures are no growth to date, and urine culture suggests contamination from stool krzysztof, as is expected. Recommendations: -Continue ampicillin-sulbactam 3G Q6H. -Continue linezolid 600 mg Q12H IV. Would monitor for serotonin syndrome given escitalopram, but low concern for risk of this at this time. -Monitor CBC and CMP on the above IV antibiotics. -Appreciate GI and CRS evaluations. Plan is for EGD and colonoscopy today with CRS evaluation following. Assessment & Plan (11/03/2024 5:48 PM CDT): Presented with isolated fever, n/v at home along with increased pain in abdomen. Patient was hospitalized 3 times since June for similar issues. 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 09/14-09/29: presented for abdominal pain, CT showed sequela of colocolonic fistulae 2/2 complicated diverticulitis. 10/06-10/22 presented for n/v, CT showed acute on chronic diverticulitis with increased inflammation around bladder and sigmoid colon. This admission repeat CT did not show new findings but her symptoms are likely still associated with her ongoing GI/ issues. Per CRS note 10/15 from previous admission, patient has 2 options, one is sigmoidectomy + colovesicular fistula taken down with primary anastomosis to reduce significant morbidity anticipated with end colostomy. This option would not be feasible in the setting of acute diverticulitis flare. Alternative emergent operation would be sigmoidectomy and end colostomy without option for reversal for an extended period of time and until significant weight loss achieved. CT did not show new imaging evidence of diverticulitis flare, and patient has achieved significant weight loss, re-engaged CRS for continued discussion about surgical options. Work-up: -UA with 3+ leukocyte esterase, 4+ bacteria. Last urine culture 09/25 showed enterococcus faecium only susceptible to linezolid -CT C/A/P: Unchanged tethering of the sigmoid colon to the uterine fundus as well as the urinary bladder. 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 Unchanged findings of acute on chronic diverticulitis in the pelvis. -CT bilateral femur: no abscess or osteoarthritis. -Urine cx contaminated -10/31 blood cx NGTD -11/03 EGD: normal -11/03 colonoscopy: extrinsic stenosis of sigmoid colon, diverticulosis, diverticular opening, unable to view cecal area due to narrowing, otherwise normal colon. Recommended repeat colonoscopy after surgery for diverticular disease screening (given unable to clear cecal base of small polyps). Per GI, ok to proceed w/ colovesical fistula surgery. Antibiotics: -S/p Augmentin 10/30-10/31 -Continue Unasyn IV (11/01-present) + linezolid IV (was home med-present) Plan: -Colorectal surgery consulted. Will follow with plan for surgery to fix colovesicular fistula now pt is s/p colonoscopy for diverticulitis. -ID following, recs appreciated -Pain regimen: tylenol 1 g tid scheduled, oxycodone, dilaudid. Also has home gabapentin, oxybutynin, topamax, robaxin continued -Continue TPN due to stool frequently blocking mcclelland during previous hospital stay. Clear liquid diet -Mcclelland changed 10/30 Assessment & Plan (11/02/2024 4:17 PM CDT): Nina Macias is a 44 y.o. 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 She was re-admitted 10/31 with recurrent fever, nausea, and vomiting with LLQ abdominal pain. CT imaging continued to demonstrate acute on chronic sequela of diverticulitis similar to prior exams. She was continued on amoxicillin-clavulanate and tedizolid was switched to linezolid (10/30-). GI was consulted and are planning on colonoscopy to evaluate her diverticulitis. CRS was consulted and are considering surgical intervention. ID was consulted for antibiotic management. She is at high risk for sepsis given her intra-abdominal disease. She has continued to have fevers despite suppressive antibiotics. This could be partially due to the inability to tolerate oral intake and vomiting up her antibiotics at home in addition. Would recommend switching to IV antibiotics while awaiting surgical intervention. Blood cultures are no growth to date, and urine culture suggests contamination from stool krzysztof, as is expected. Recommendations: -Continue ampicillin-sulbactam 3G Q6H. -Continue linezolid 600 mg Q12H IV. Would monitor for serotonin syndrome given escitalopram, but low concern for risk of this at this time. -Monitor CBC and CMP on the above IV antibiotics. -Appreciate GI and CRS evaluations. GI tentatively planning EGD and colonoscopy on Sunday. Assessment & Plan (11/02/2024 12:58 PM CDT): Presented with isolated fever, n/v at home along with increased pain in abdomen. Patient was hospitalized 3 times since June for similar issues. 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 09/14-09/29: presented for abdominal pain, CT showed sequela of colocolonic fistulae 2/2 complicated diverticulitis. 10/06-10/22 presented for n/v, CT showed acute on chronic diverticulitis with increased inflammation around bladder and sigmoid colon. This admission repeat CT did not show new findings but her symptoms are likely still associated with her ongoing GI/ issues. Per CRS note 10/15 from previous admission, patient has 2 options, one is sigmoidectomy + colovesicular fistula taken down with primary anastomosis to reduce significant morbidity anticipated with end colostomy. This option would not be feasible in the setting of acute diverticulitis flare. Alternative emergent operation would be sigmoidectomy and end colostomy without option for reversal for an extended period of time and until significant weight loss achieved. Now given that it has been 3 weeks since patient's last encounter with CRS and CT did not show new imaging evidence of diverticulitis flare, and patient has achieved significant weight loss, would re-engage CRS for continued discussion about surgical options. Work-up: -UA with 3+ leukocyte esterase, 4+ bacteria. Last urine culture 09/25 showed enterococcus faecium only susceptible to linezolid -CT C/A/P: Unchanged tethering of the sigmoid colon to the uterine fundus as well as the urinary bladder. 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 Unchanged findings of acute on chronic diverticulitis in the pelvis. -CT bilateral femur: no abscess or osteoarthritis. -Urine cx contaminated -10/31 blood cx NGTD Antibiotics: -S/p Augmentin 10/30-10/31 Plan: -Declined RVP -Started Unasyn IV (11/01-) + linezolid IV (was on prior to admission-present) -Colorectal surgery consulted. Recommended GI consult for scope given recent diverticulitis. They will consider possible inpatient versus outpatient surgery -ID following, recs appreciated -GI following, plan for EGD and colonoscopy Sunday. NPO Sunday night -Pain regimen: tylenol 1 g tid scheduled, oxycodone, dilaudid. Also has home gabapentin, oxybutynin, topamax, robaxin continued -Continue TPN due to stool frequently blocking mcclelland during previous hospital stay. Clear liquid diet Assessment & Plan (11/01/2024 5:23 PM CDT): Nina Macias is a 44 y.o. 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 She was re-admitted 10/31 with recurrent fever, nausea, and vomiting with LLQ abdominal pain. CT imaging continued to demonstrate acute on chronic sequela of diverticulitis similar to prior exams. She was continued on amoxicillin-clavulanate and tedizolid was switched to linezolid (10/30-). GI was consulted and are planning on colonoscopy to evaluate her diverticulitis. CRS was consulted and are considering surgical intervention. ID was consulted for antibiotic management. She is at high risk for sepsis given her intra-abdominal disease. She has continued to have fevers despite suppressive antibiotics. This could be partially due to the inability to tolerate oral intake and vomiting up her antibiotics at home in addition. Would recommend switching to IV antibiotics while awaiting surgical intervention. Blood cultures are no growth to date, and urine culture suggests contamination from stool krzysztof, as is expected. Recommendations: - Stop amoxicillin-clavualate and switch to renally dosed ampicillin-sulbactam 3G Q6H. - Continue linezolid 600 mg Q12H IV. Would monitor for serotonin syndrome given escitalopram, but low concern for risk of this at this time. - Monitor CBC and CMP on the above IV antibiotics. - Appreciate GI and CRS evaluations. Assessment & Plan (11/01/2024 11:36 AM CDT): Presented with isolated fever, n/v at home along with increased pain in abdomen. Patient was hospitalized 3 times since June for similar issues. 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 09/14-09/29: presented for abdominal pain, CT showed sequela of colocolonic fistulae 2/2 complicated diverticulitis. 10/06-10/22 presented for n/v, CT showed acute on chronic diverticulitis with increased inflammation around bladder and sigmoid colon. This admission repeat CT did not show new findings but her symptoms are likely still associated with her ongoing GI/ issues. Per CRS note 10/15 from previous admission, patient has 2 options, one is sigmoidectomy + colovesicular fistula taken down with primary anastomosis to reduce significant morbidity anticipated with end colostomy. This option would not be feasible in the setting of acute diverticulitis flare. Alternative emergent operation would be sigmoidectomy and end colostomy without option for reversal for an extended period of time and until significant weight loss achieved. Now given that it has been 3 weeks since patient's last encounter with CRS and CT did not show new imaging evidence of diverticulitis flare, and patient has achieved significant weight loss, would re-engage CRS for continued discussion about surgical options. Work-up: -UA with 3+ leukocyte esterase, 4+ bacteria. Last urine culture 09/25 showed enterococcus faecium only susceptible to linezolid -CT C/A/P: Unchanged tethering of the sigmoid colon to the uterine fundus as well as the urinary bladder. 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 Unchanged findings of acute on chronic diverticulitis in the pelvis. -CT bilateral femur: no abscess or osteoarthritis. -Urine cx contaminated -10/31 blood cx NGTD Plan: -Declined RVP -Continue Augmentin + linezolid (on tedizolid at home) -Colorectal surgery consulted. Recommended GI consult for scope given recent diverticulitis. They will consider possible inpatient versus outpatient surgery -C/s ID given fever while on abx -C/s GI -Pain regimen: tylenol 1 g tid scheduled, oxycodone, dilaudid. Also has home gabapentin, oxybutynin, topamax, robaxin continued -Continue TPN due to stool frequently blocking mcclelland during previous hospital stay. Clear liquid diet Assessment & Plan (10/31/2024 5:01 PM CDT): Presented with isolated fever, n/v at home along with increased pain in abdomen. Patient was hospitalized 3 times since June for similar issues. 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 09/14-09/29: presented for abdominal pain, CT showed sequela of colocolonic fistulae 2/2 complicated diverticulitis. 10/06-10/22 presented for n/v, CT showed acute on chronic diverticulitis with increased inflammation around bladder and sigmoid colon. This admission repeat CT did not show new findings but her symptoms are likely still associated with her ongoing GI/ issues. Per CRS note 10/15 from previous admission, patient has 2 options, one is sigmoidectomy + colovesicular fistula taken down with primary anastomosis to reduce significant morbidity anticipated with end colostomy. This option would not be feasible in the setting of acute diverticulitis flare. Alternative emergent operation would be sigmoidectomy and end colostomy without option for reversal for an extended period of time and until significant weight loss achieved. Now given that it has been 3 weeks since patient's last encounter with CRS and CT did not show new imaging evidence of diverticulitis flare, and patient has achieved significant weight loss, would re-engage CRS for continued discussion about surgical options. Work-up: -UA with 3+ leukocyte esterase, 4+ bacteria. Last urine culture 09/25 showed enterococcus faecium only susceptible to linezolid -CT C/A/P: Unchanged tethering of the sigmoid colon to the uterine fundus as well as the urinary bladder. 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 -CT bilateral femur: no abscess or osteoarthritis. Plan: -Follow UCx and BCx. -Declined RVP -Continue Augmentin + linezolid (on tedizolid at home) -Colorectal surgery consulted. Recommended GI consult for scope given recent diverticulitis. They will consider possible inpatient versus outpatient surgery -C/s ID in AM -C/s GI in AM -Pain regimen: tylenol 1 g tid scheduled, oxycodone, dilaudid. Also has home gabapentin, oxybutynin, topamax, robaxin continued -Continue TPN due to stool frequently blocking mcclelland during previous hospital stay. Clear liquid diet Assessment & Plan (10/31/2024 2:56 AM CDT): Presented with isolated fever, n/v at home along with increased pain in abdomen. Patient was hospitalized 3 times since June for similar issues. 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 09/14-09/29: presented for abdominal pain, CT showed sequela of colocolonic fistulae 2/2 complicated diverticulitis. 10/06-10/22 presented for n/v, CT showed acute on chronic diverticulitis with increased inflammation around bladder and sigmoid colon. This admission repeat CT did not show new findings but her symptoms are likely still associated with her ongoing GI/ issues. Per CRS note 10/15 from previous admission, patient has 2 options, one is sigmoidectomy + colovesicular fistula taken down with primary anastomosis to reduce significant morbidity anticipated with end colostomy. This option would not be feasible in the setting of acute diverticulitis flare. Alternative emergent operation would be sigmoidectomy and end colostomy without option for reversal for an extended period of time and until significant weight loss achieved. Now given that it has been 3 weeks since patient's last encounter with CRS and CT did not show new imaging evidence of diverticulitis flare, and patient has achieved significant weight loss, would re-engage CRS for continued discussion about surgical options. Work-up: -UA with 3+ leukocyte esterase, 4+ bacteria. Last urine culture 09/25 showed enterococcus faecium only susceptible to linezolid -CT C/A/P: Unchanged tethering of the sigmoid colon to the uterine fundus as well as the urinary bladder. 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 -CT bilateral femur: no abscess or osteoarthritis. Plan: -Await UCx and BCx. Check RVP since patient also mentioned sore throat lately -Continue Augmentin + linezolid (on tedizolid at home) -CRS and ID consult in the AM -Pain regimen: tylenol 1 g tid scheduled, oxycodone, dilaudid. 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 CT AP found acute on chronic diverticulitis w/ new 2cm fluid collection near the colon c/f abscess. IR consulted with no indication currently for drainage given size. Discussed case with colorectal surgery on 10/15, plan for suppressive antibiotics with colonoscopy in 5-6 weeks, followed by surgical management. They recommended NPO with TPN to reduce stool burden through fistula to help minimize pain. Surgery will continue to follow. WBC down trending to 8.92 on 10/21. - ID, colorectal surgery, GI following - GI recs waiting to perform colonoscopy until acute diverticulitis resolves - Colorectal surgery to f/u with pt in outpatient setting - [facility] approved Tidezolid - pt able to be D/C - Abx: [id number]/125mg BID, tidezolid 200mg PO daily, likely until surgery. - Pain management: Tylenol 650 mg q6h. Oxy 10 q6h PRN - CLD with TPN Assessment & Plan (10/21/2024 6:17 PM CDT): Recurrent episodes of diverticulitis c/b colocolonic and colovesical fistulae, leading to recurrent UTIs. CT AP found acute on chronic diverticulitis w/ new 2cm fluid collection near the colon c/f abscess. IR consulted with no indication currently for drainage given size. Discussed case with colorectal surgery on 10/15, plan for suppressive antibiotics with colonoscopy in 5-6 weeks, followed by surgical management. They recommended NPO with TPN to reduce stool burden through fistula to help minimize pain. Surgery will continue to follow. WBC down trending to 8.92 on 10/21. - ID, colorectal surgery, GI following - GI recs waiting to perform colonoscopy until acute diverticulitis resolves - Colorectal surgery to f/u with pt in outpatient setting - Pharmacy unable to approve Tidezolid outpatient - pt will remain in hospital overnight Plan: - CTM WBC - Abx: [id number]/125mg BID, tidezolid 200mg PO daily, likely until surgery. - Pain management: Tylenol 650 mg q6h. 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 CT AP found acute on chronic diverticulitis w/ new 2cm fluid collection near the colon c/f abscess. IR consulted with no indication currently for drainage given size. Discussed case with colorectal surgery on 10/15, plan for suppressive antibiotics with colonoscopy in 5-6 weeks, followed by surgical management. They recommended NPO with TPN to reduce stool burden through fistula to help minimize pain. Surgery will continue to follow. WBC elevated to 10.52 on 10/19 - ID, colorectal surgery, GI following Plan: - CTM WBC - Abx: [id number]/125mg BID, tidezolid 200mg PO daily, likely until surgery. 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 CT AP found acute on chronic diverticulitis w/ new 2cm fluid collection near the colon c/f abscess. IR consulted with no indication currently for drainage given size. Discussed case with colorectal surgery on 10/15, plan for suppressive antibiotics with colonoscopy in 5-6 weeks, followed by surgical management. They recommended NPO with TPN to reduce stool burden through fistula to help minimize pain. Surgery will continue to follow. WBC elevated to 10.52 on 10/19 - ID, colorectal surgery, GI following Plan: - CTM WBC - Abx: [id number]/125mg BID, tidezolid 200mg PO daily, likely until surgery. - Pain management: Oxy 10 q4h PRN, stop dilaudid - CLD with TPN Assessment & Plan (10/18/2024 8:51 AM CDT): Recurrent episodes of diverticulitis c/b colocolonic and colovesical fistulae, leading to recurrent UTIs. CT AP found acute on chronic diverticulitis w/ new 2cm fluid collection near the colon c/f abscess. IR consulted with no indication currently for drainage given size. Discussed case with colorectal surgery on 10/15, plan for suppressive antibiotics with colonoscopy in 5-6 weeks, followed by surgical management. They recommended NPO with TPN to reduce stool burden through fistula to help minimize pain. Surgery will continue to follow - ID, colorectal surgery, GI following Plan: - Abx: /125mg BID, tidezolid 200mg PO daily, likely until surgery. 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 CT AP found acute on chronic diverticulitis w/ new 2cm fluid collection near the colon c/f abscess. IR consulted with no indication currently for drainage given size. Discussed case with colorectal surgery on 10/15, plan for suppressive antibiotics with colonoscopy in 5-6 weeks, followed by surgical management. They recommended NPO with TPN to reduce stool burden through fistula to help minimize pain. Surgery will continue to follow - ID, colorectal surgery, GI following Plan: - Abx: [id number]/125mg BID, tidezolid 200mg PO daily, likely until surgery. - Pain management: Oxy 10 q4h PRN, stop dilaudid Assessment & Plan (10/16/2024 1:02 PM CDT): Recurrent episodes of diverticulitis c/b colocolonic and colovesical fistulae, leading to recurrent UTIs. CT AP found acute on chronic diverticulitis w/ new 2cm fluid collection near the colon c/f abscess. IR consulted with no indication currently for drainage given size. Discussed case with colorectal surgery on 10/15, plan for suppressive antibiotics with colonoscopy in 5-6 weeks, followed by surgical management. They recommended NPO with TPN to reduce stool burden through fistula to help minimize pain. Surgery will continue to follow - ID, colorectal surgery, GI following Plan: - Abx: /125mg BID, tidezolid 200mg PO daily, likely until surgery. - Pain management: Oxy 10 q4h PRN, stop dilaudid Assessment & Plan (10/15/2024 10:10 AM CDT): Recurrent episodes of diverticulitis c/b colocolonic and colovesical fistulae, leading to recurrent UTIs. CT AP found acute on chronic diverticulitis w/ new 2cm fluid collection near the colon c/f abscess. IR consulted with no indication currently for drainage given size. - Given her complicated course, and prolonged hospital admission due to complications of the colovesical fistula we will plan for a multidisciplinary meeting involving colorectal surgery ID and GI to decide what the best plan to move forward since she has a very high risk surgical candidate, but she is also unlikely to get infection control if the fistula is not addressed. Meeting tentatively planned for 10/15/2024 Noon. - ID, colorectal surgery, GI following, - Abx: [id number]/125mg BID, tidezolid 200mg PO daily end date to be discussed pending multidisciplinary meeting. 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 CT AP found acute on chronic diverticulitis w/ new 2cm fluid collection near the colon c/f abscess. IR consulted with no indication currently for drainage given size. - Given her complicated course, and prolonged hospital admission due to complications of the colovesical fistula we will plan for a multidisciplinary meeting involving colorectal surgery ID and GI to decide what the best plan to move forward since she has a very high risk surgical candidate, but she is also unlikely to get infection control if the fistula is not addressed. Meeting tentatively planned for 10/15/2024 Noon. - ID, colorectal surgery, GI following, - Abx: bactrim 875/125mg BID, tidezolid 200mg PO daily end date to be discussed pending multidisciplinary meeting. - Pain management: Oxy 10 q4h PRN Assessment & Plan (10/13/2024 5:52 PM CDT): Recurrent episodes of diverticulitis c/b colocolonic and colovesical fistulae, leading to recurrent UTIs. CT AP found acute on chronic diverticulitis w/ new 2cm fluid collection near the colon c/f abscess. IR consulted with no indication currently for drainage given size. - Given her complicated course, and prolonged hospital admission due to complications of the colovesical fistula we will plan for a multidisciplinary meeting involving colorectal surgery ID and GI to decide what the best plan to move forward since she has a very high risk surgical candidate, but she is also unlikely to get infection control if the fistula is not addressed. Meeting tentatively planned for 10/15/2024 Noon. - ID, colorectal surgery, GI following, - Abx: bactrim 875/125mg BID, tidezolid 200mg PO daily end date to be discussed pending multidisciplinary meeting. - Pain management: xy 10 q4h PRN Assessment & Plan (10/12/2024 11:25 AM CDT): Recurrent episodes of diverticulitis c/b colocolonic and colovesical fistulae, leading to recurrent UTIs. On admission WBC 10.5. Lactate 2.7. UA >50 WBC, >[address] AP found acute on chronic diverticulitis w/ new 2cm fluid collection near the colon c/f abscess. IR consulted with no indication currently for drainage given size. CRS recommending non-operative approach unless emergent. terminal press operator plan for stoma, intervention pending further optimization of obesity/other co-morbid conditions. S/p linez, cefe, flagyl in the ED. Nausea and vomiting improved with antibiotics, still in severe pain, however on further discussion appears to be her baseline chronic pain. Will attempt to wean pain medications. - ID following, appreciate recs - CRS following, appreciate recs: non op at this time - GI consulted, signed off: will need flex sign vs colon prior to surgery in OP setting - Abx: bactrim 875/125mg BID, tidezolid 200mg PO daily until 10/20 - Pain management: xy 10 q4h PRN Assessment & Plan (10/11/2024 10:03 AM CDT): Recurrent episodes of diverticulitis c/b colocolonic and colovesical fistulae, leading to recurrent UTIs. On admission WBC 10.5. Lactate 2.7. UA >50 WBC, >[address] AP found acute on chronic diverticulitis w/ new 2cm fluid collection near the colon c/f abscess. IR consulted with no indication currently for drainage given size. CRS recommending non-operative approach unless emergent. terminal press operator plan for stoma, intervention pending further optimization of obesity/other co-morbid conditions. S/p linez, cefe, flagyl in the ED. Nausea and vomiting improved with antibiotics, still in severe pain, however on further discussion appears to be her baseline chronic pain. Will attempt to wean pain medications. - ID following, appreciate recs - CRS following, appreciate recs: non op at this time - GI consulted, signed off: will need flex sign vs colon prior to surgery in OP setting - Abx: bactrim 875/125mg BID, tidezolid 200mg PO daily until 10/20 - Pain management: xy 10 q6h PRN, DC dilaudid. Assessment & Plan (10/10/2024 2:50 PM CDT): Recurrent episodes of diverticulitis c/b colocolonic and colovesical fistulae, leading to recurrent UTIs. On admission WBC 10.5. Lactate 2.7. UA >50 WBC, >[address] AP found acute on chronic diverticulitis w/ new 2cm fluid collection near the colon c/f abscess. IR consulted with no indication currently for drainage given size. CRS recommending non-operative approach unless emergent. terminal press operator plan for stoma, intervention pending further optimization of obesity/other co-morbid conditions. S/p linez, cefe, flagyl in the ED. Nausea and vomiting improved with antibiotics, still in severe pain, however on further discussion appears to be her baseline chronic pain. Will attempt to wean pain medications. - ID following, appreciate recs - CRS following, appreciate recs: non op at this time - GI consulted, signed off: will need flex sign vs colon prior to surgery in OP setting - Abx: continue ceftriaxone, PO linezolid, PO flagyl - Follow up UCx (10/07), BCx (10/06) - Pain management: Space oxy 10 to q6h, space dilaudid to BID. Assessment & Plan (10/09/2024 10:57 AM CDT): Recurrent episodes of diverticulitis c/b colocolonic and colovesical fistulae, leading to recurrent UTIs. On admission WBC 10.5. Lactate 2.7. UA >50 WBC, >[address] AP found acute on chronic diverticulitis w/ new 2cm fluid collection near the colon c/f abscess. IR consulted with no indication currently for drainage given size. CRS recommending non-operative approach unless emergent. longterm plan for stoma, intervention pending further optimization of obesity/other co-morbid conditions. S/p linez, cefe, flagyl in the ED. - ID following, appreciate recs - CRS following, appreciate recs: non op at this time - GI consulted, signed off: will need flex sign vs colon prior to surgery in OP setting - Abx: continue ceftriaxone, linezolid, flagyl - Follow up UCx (10/07), BCx (10/06) Assessment & Plan (10/08/2024 3:33 PM CDT): Recurrent episodes of diverticulitis c/b colocolonic and colovesical fistulae, leading to recurrent UTIs. On admission WBC 10.5. Lactate 2.7. UA >50 WBC, >[address] AP found acute on chronic diverticulitis w/ new 2cm fluid collection near the colon c/f abscess. IR consulted with no indication currently for drainage given size. CRS recommending non-operative approach unless emergent. longterm plan for stoma, intervention pending further optimization of obesity/other co-morbid conditions. S/p linez, cefe, flagyl in the ED. - ID following, appreciate recs - CRS following, appreciate recs: non op at this time - GI consulted, signed off: will need flex sign vs colon prior to surgery in OP setting - Abx: transition cefepime > ceftriaxone, continue linezolid/flagyl - Follow up UCx (10/07), BCx (10/06) Assessment & Plan (10/07/2024 7:16 AM CDT): Recurrent episodes of diverticulitis c/b colocolonic and colovesical fistulae, leading to recurrent UTIs. On admission WBC 10.5. Lactate 2.7. UA >50 WBC, >[address] AP found acute on chronic diverticulitis w/ new 2cm fluid collection near the colon c/f abscess. IR consulted with no indication currently for drainage given size. CRS recommending non-operative approach unless emergent. longterm plan for stoma, intervention pending further optimization of obesity/other co-morbid conditions. S/p linez, cefe, flagyl in the ED. - Follow up UCx, BCx (10/06) - ID following: cefe, linezolid - ADAT - CRS recs appreciated - GI recs appreciated will need flex sign vs colon prior to surgery in OP setting Assessment & Plan (09/29/2024 6:14 PM CDT): Chronic, complicated by colocolonic and colovesicular fistulae. During previous admission CRS was consulted and repair is pending weight loss. CRS consulted this admission, no plan for surgery during this admission. Plan for outpatient surgery; would need to optimize her weight--> discussed with the patient to follow up with her PCP regarding starting with management medications (appointment for weight loss clinic he is in 2025!) - Had an appointment with Dr. Waters on 09/18, CRS viral scheduled follow up appointment - Plan as per abdominal pain Assessment & Plan (09/28/2024 8:11 AM CDT): Chronic, complicated by colocolonic and colovesicular fistulae. During previous admission CRS was consulted and repair is pending weight loss. CRS consulted this admission, no plan for surgery. - Had an appointment with Dr. Waters on 09/18, will need to re-schedule on discharge - Plan as per abdominal pain Assessment & Plan (09/27/2024 5:51 PM CDT): Chronic, complicated by colocolonic and colovesicular fistulae. During previous admission CRS was consulted and repair is pending weight loss. CRS consulted this admission, no plan for surgery. - Had an appointment with Dr. Waters on 09/18, will need to re-schedule on discharge - Plan as per abdominal pain Assessment & Plan (09/26/2024 3:31 PM CDT): Chronic, complicated by colocolonic and colovesicular fistulae. During previous admission CRS was consulted and repair is pending weight loss. - had an appointment with Dr. Waters on 09/18, will need to re-schedule on discharge - Plan as per abdominal pain Assessment & Plan (09/25/2024 8:09 AM CDT): Chronic, complicated by colocolonic and colovesicular fistulae. During previous admission CRS was consulted and repair is pending weight loss. - had an appointment with Dr. Waters on 09/18, will need to re-schedule on discharge - Plan as per abdominal pain Assessment & Plan (09/24/2024 8:24 AM CDT): Chronic, complicated by colocolonic and colovesicular fistulae. During previous admission CRS was consulted and repair is pending weight loss. - had an appointment with Dr. Waters on 09/18, will need to re-schedule on discharge - Plan as per abdominal pain Assessment & Plan (09/23/2024 7:41 PM CDT): Chronic, complicated by colocolonic and colovesicular fistulae. During previous admission CRS was consulted and repair is pending weight loss. - had an appointment with Dr. Waters on 09/18, will need to re-schedule on discharge - Plan as per abdominal pain Assessment & Plan (09/22/2024 1:19 PM CDT): Chronic, complicated by colocolonic and colovesicular fistulae. During previous admission CRS was consulted and repair is pending weight loss. - had an appointment with Dr. Waters on 09/18, will need to re-schedule on discharge - mgmt as per plan for abdominal pain Assessment & Plan (09/21/2024 7:12 AM CDT): Chronic, complicated by stable colovesicular fitula. During previous admission CRS was consulted and repair is pending weight loss. On admission, patient continues to have chronic abdominal pain. - Had an appointment with Dr. Waters on 09/18, will need to re-schedule on discharge - Pain management under abdominal pain Assessment & Plan (09/20/2024 8:17 AM CDT): Chronic, complicated by stable colovesicular fitula. During previous admission CRS was consulted and repair is pending weight loss. On admission, patient continues to have chronic abdominal pain. - Had an appointment with Dr. Waters on 09/18, will need to re-schedule on discharge - Pain management under abdominal pain Assessment & Plan (09/19/2024 1:42 PM CDT): Chronic, complicated by stable colovesicular fitula. During previous admission CRS was consulted and repair is pending weight loss. On admission, patient continues to have chronic abdominal pain. - Had an appointment with Dr. Waters on 09/18, will need to re-schedule on discharge - Pain management under abdominal pain Assessment & Plan (09/14/2024 10:52 PM CDT): Chronic, complicated by stable colovesicular fitula. During previous admission CRS was consulted and repair is pending weight loss. - Continues to have chronic abdominal pain. - Had an appointment with Dr. Waters on 09/18, consider re-engaging for re- evaluation this admission. - Pain management Hypokalemia 08/19/2024 Assessment & Plan (09/05/2024 1:34 PM CDT): Replace KCL and watch K/Mag Assessment & Plan (09/04/2024 3:38 PM CDT): Replace KCL and watch K/Mag Assessment & Plan (09/04/2024 12:00 AM CDT): Replace KCL and watch K/Mag Assessment & Plan (09/02/2024 10:16 PM CDT): Replace KCL and watch K/Mag Assessment & Plan (09/01/2024 6:41 PM CDT): Replace KCL and watch K/Mag Assessment & Plan (08/31/2024 7:41 AM CDT): Replace KCL and watch K/Mag Assessment & Plan (08/30/2024 8:14 AM CDT): Replace KCL and watch K/Mag Assessment & Plan (08/23/2024 1:59 PM CDT): Replace KCL and watch K/Mag Assessment & Plan (08/22/2024 2:16 PM CDT): Replace KCL and watch K/Mag Assessment & Plan (08/21/2024 3:20 PM CDT): Replace KCL and watch K/Mag Assessment & Plan (08/20/2024 4:38 PM CDT): Replace KCL and watch K/Mag Assessment & Plan (08/19/2024 4:21 PM CDT): Replace KCL and watch K/Mag Discharge planning issues 08/09/2024 Assessment & Plan (01/20/2025 1:08 PM CDT): - PA for tedizolid denied- see above - plan to continue Na thisulphate 12.5 gm 3X/week until derm o/p follow up-per CM, Have found infusion center that can take patient MWF --> infusion therapy orders are placed --> please reach out to CM at time of discharge to fix start date at outpatient infusion centre ([facility] infusion centre) - doesn't have PCP - scheduled appointment at [facility] Feb- will have to make sure patient has enough pain meds to last until then - - [facility] Oxycontin not covered , will need prior auth before discharge , initiate PA after surgery - f/u o/p with CRS, PRS, derm and nephro - they are aware and will contact production control scheduler to arrange follow up appointments - urology referral placed for mcclelland exchange in ~ 1 month - prefers home PT, but has been difficult with her insurance - CM=no home health available for patient - outpatient PT referral placed - Going for surgery 01/20 and will transfer to surgery floor Assessment & Plan (01/19/2025 8:40 PM CDT): - PA for tedizolid denied- see above - plan to continue Na thisulphate 12.5 gm 3X/week until derm o/p follow up-per CM, Have found infusion center that can take patient MWF --> infusion therapy orders are placed --> please reach out to CM at time of discharge to fix start date at outpatient infusion centre ([facility] infusion centre) - doesn't have PCP - scheduled appointment at [facility] Feb- will have to make sure patient has enough pain meds to last until then - - [facility] Oxycontin not covered , will need prior auth before discharge , initiate PA after surgery - f/u o/p with CRS, PRS, derm and nephro - they are aware and will contact production control scheduler to arrange follow up appointments - urology referral placed for mcclelland exchange in ~ 1 month - prefers home PT, but has been difficult with her insurance - CM=no home health available for patient - outpatient PT referral placed Assessment & Plan (01/18/2025 3:27 PM CDT): - PA for tedizolid denied- see above - plan to continue Na thisulphate 12.5 gm 3X/week until derm o/p follow up-per CM, Have found infusion center that can take patient MWF --> infusion therapy orders placed - called primary care clinic and f/u appointment scheduled for Feb 23, will have to make sure patient has enough pain meds to last until then - f/u o/p with CRS, PRS and derm - they are aware and will contact production control scheduler to arrange follow up appointments - prefers home PT, but has been difficult with her insurance - CM=no home health available for patient - outpatient PT order placed - will be discharged with mcclelland (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)- will exchange mcclelland prior to d/c and f/u with CRS o/p - urology referral placed for mcclelland exchange in ~ 1 month - [facility] with updated doses Oxycontin not covered , will need prior auth before discharge - now planned for Sunday Assessment & Plan (01/17/2025 2:32 PM CDT): - PA for tedizolid denied- see above - plan to continue Na thisulphate 12.5 gm 3X/week until derm o/p follow up-per CM, Have found infusion center that can take patient MWF --> infusion therapy orders placed - called primary care clinic and f/u appointment scheduled for Feb 23, will have to make sure patient has enough pain meds to last until then - f/u o/p with CRS, PRS and derm - they are aware and will contact production control scheduler to arrange follow up appointments - prefers home PT, but has been difficult with her insurance - CM=no home health available for patient - outpatient PT order placed - will be discharged with mcclelland (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)- will exchange mcclelland prior to d/c and f/u with CRS o/p - urology referral placed for mcclelland exchange in ~ 1 month - [facility] Oxycontin not covered , needs prior auth - now planned for x Sunday Assessment & Plan (01/16/2025 9:26 PM CDT): - PA for tedizolid denied- see above - plan to continue Na thisulphate 12.5 gm 3X/week until derm o/p follow up-per CM, Have found infusion center that can take patient MWF --> infusion therapy orders placed - called primary care clinic and f/u appointment scheduled for Feb 23, will have to make sure patient has enough pain meds to last until then - f/u o/p with CRS, PRS and derm - they are aware and will contact production control scheduler to arrange follow up appointments - prefers home PT, but has been difficult with her insurance - CM=no home health available for patient - outpatient PT order placed - will be discharged with mcclelland (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)- will exchange mcclelland prior to d/c and f/u with CRS o/p - urology referral placed for mcclelland exchange in ~ 1 month - [facility] with updated doses Oxycontin not covered , needs prior auth - now planned for Sunday Assessment & Plan (01/15/2025 9:08 PM CDT): - PA for tedizolid denied- see above - plan to continue Na thisulphate 12.5 gm 3X/week until derm o/p follow up-per CM, Have found infusion center that can take patient MWF --> infusion therapy orders placed - called primary care clinic and f/u appointment scheduled for Feb 23, will have to make sure patient has enough pain meds to last until then - f/u o/p with CRS, PRS and derm - they are aware and will contact production control scheduler to arrange follow up appointments - prefers home PT, but has been difficult with her insurance - CM=no home health available for patient - outpatient PT order placed - will be discharged with mcclelland (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 Also prescribed Na Cl flushes for mcclelland irrigation CM is looking into getting [facility] home care for mcclelland and wound dressing care only - Pain Consulted for pain regimen-no input and signed off Assessment & Plan (01/14/2025 11:05 PM CDT): - PA for tedizolid denied- see above - plan to continue Na thisulphate 12.5 gm 3X/week until derm o/p follow up-per CM, Have found infusion center that can take patient MWF --> infusion therapy orders placed - called primary care clinic and f/u appointment scheduled for Feb 23, will have to make sure patient has enough pain meds to last until then - f/u o/p with CRS, PRS and derm - they are aware and will contact production control scheduler to arrange follow up appointments - prefers home PT, but has been difficult with her insurance - CM=no home health available for patient - outpatient PT order placed - will be discharged with mcclelland (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)- will exchange mcclelland prior to d/c and f/u with CRS o/p - urology referral placed for mcclelland exchange in ~ 1 month - Pain Consulted for pain regimen-no input and signed off Assessment & Plan (01/13/2025 8:04 PM CDT): - PA for tedizolid denied -appealed - plan to continue Na thisulphate 12.5 gm 3X/week until derm o/p follow up-per CM, Have found infusion center that can take patient MWF --> infusion therapy orders placed - called primary care clinic and f/u appointment scheduled for Feb 23, will have to make sure patient has enough pain meds to last until then - f/u o/p with CRS, PRS and derm - they are aware and will contact production control scheduler to arrange follow up appointments - prefers home PT, but has been difficult with her insurance - CM=no home health available for patient - outpatient PT order placed - will be discharged with mcclelland (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)- will exchange mcclelland prior to d/c and f/u with CRS o/p - Pain Consulted for pain regimen-no input and signed off Assessment & Plan (01/12/2025 1:20 PM CDT): - meds sent to pharmacy for bedside delivery on day of discharge - needs new PA for tedizolid - last one in October - PA jackson [id number] - - Follow ups: - amb referral placed for primary care, and for nephrology given progression of CKD (CKD 3b) - d/w CRS resident - will schedule o/p appointment - PRS signed off - will arrange o/p appointment in ~ 1 month - reached out to derm resident for discharge recs- Na thiosulphate has had to be held twice given acidosis (!CO2 15) iso RANDOLPH. 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 Will need to prescribe 30 day supply and make sure f/u appointment before runs out Assessment & Plan (01/11/2025 12:31 PM CDT): - meds sent to pharmacy for bedside delivery on day of discharge - needs new PA for tedizolid - last one in October - PA jackson [id number] - - Follow ups: - amb referral placed for primary care, and for nephrology given progression of CKD (CKD 3b) - d/w CRS resident - will schedule o/p appointment - PRS signed off - will arrange o/p appointment in ~ 1 month - reached out to derm resident for discharge recs- Na thiosulphate has had to be held twice given acidosis (!CO2 15) iso RANDOLPH. 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 Assessment & Plan (01/10/2025 11:26 AM CDT): - meds sent to pharmacy for bedside delivery on day of discharge - needs new PA for tedizolid - last one in October - PA jackson [id number] - - Follow ups: - amb referral placed for primary care, and for nephrology given progression of CKD (CKD 3b) - d/w CRS resident - will schedule o/p appointment - PRS signed off - will arrange o/p appointment in ~ 1 month - reached out to derm resident for discharge recs- Na thiosulphate has had to be held twice given acidosis (!CO2 15) iso RANDOLPH. 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 Assessment & Plan (01/09/2025 11:58 AM CDT): - meds sent to pharmacy for bedside delivery on day of discharge - needs new PA for tedizolid - last one in October - PA jackson [id number] - - Follow ups: - amb referral placed for primary care, and for nephrology given progression of CKD (CKD 3b) - d/w CRS resident - will schedule o/p appointment - PRS signed off - will arrange o/p appointment in ~ 1 month - reached out to derm resident for discharge recs- Na thiosulphate has had to be held twice given acidosis (!CO2 15) iso RANDOLPH. 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 Assessment & Plan (01/08/2025 10:29 AM CDT): - meds sent to pharmacy for bedside delivery on day of discharge - needs new PA for tedizolid - last one in October - PA jackson [id number] - - Follow ups: - amb referral placed for primary care, and for nephrology given progression of CKD (CKD 3b) - d/w CRS resident - will schedule o/p appointment - PRS signed off - will arrange o/p appointment in ~ 1 month - reached out to derm resident for discharge recs- Na thiosulphate has had to be held twice given acidosis (!CO2 15) iso RANDOLPH. 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 Assessment & Plan (01/07/2025 1:32 PM CDT): - meds sent to pharmacy for bedside delivery on day of discharge - needs new PA for tedizolid - last one in October - PA jackson [id number] - - Follow ups: - amb referral placed for primary care, and for nephrology given progression of CKD (CKD 3b) - d/w CRS resident - will schedule o/p appointment - PRS signed off - will arrange o/p appointment in ~ 1 month - reached out to derm resident for discharge recs- Na thiosulphate has had to be held twice given acidosis (!CO2 15) iso RANDOLPH. 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)- will exchange mcclelland prior to d/c and f/u with CRS o/p Assessment & Plan (01/05/2025 8:19 PM CDT): - - meds sent to pharmacy for bedside delivery on day of discharge - needs new PA for tedizolid - last one in October - PA jackson [id number] - d/w Cm tomorrow - Follow ups: - amb referral placed for primary care, and for nephrology given progression of CKD (CKD 3b) - d/w CRS resident - will schedule o/p appointment - PRS signed off - will arrange o/p appointment in ~ 1 month - reached out to derm resident for discharge recs- Na thiosulphate has had to be held twice given acidosis (!CO2 15) iso RANDOLPH. 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 -patient wants to discharge to home w/ family who will care for her - Pt needs SNF/IPR, family inpatient refused accepting facilities. They decided to go home. -Sent DME for bariatric commode and bariatric wheelchair Assessment & Plan (09/04/2024 3:38 PM CDT): Patient obese and deconditioned. -patient wants to discharge to home w/ family who will care for her - Pt needs SNF/IPR, family inpatient refused accepting facilities. They decided to go home. -Sent DME for bariatric commode and bariatric wheelchair Assessment & Plan (09/04/2024 12:00 AM CDT): Patient obese and deconditioned. -patient wants to discharge to home w/ family who will care for her - Pt needs SNF/IPR, family agreed Assessment & Plan (09/02/2024 10:16 PM CDT): Patient obese and deconditioned. -patient wants to discharge to home w/ family who will care for her - Pt needs SNF/IPR, family agreed Assessment & Plan (09/01/2024 6:41 PM CDT): Patient obese and deconditioned. -patient wants to discharge to home w/ family who will care for her - Pt needs SNF/IPR, family agreed Assessment & Plan (08/31/2024 2:46 PM CDT): Patient obese and deconditioned. -patient wants to discharge to home w/ family who will care for her - Pt needs SNF/IPR, family agreed Assessment & Plan (08/30/2024 1:50 PM CDT): Patient obese and deconditioned. -patient wants to discharge to home w/ family who will care for her - Pt needs SNF/IPR, family agreed Assessment & Plan (08/23/2024 1:59 PM CDT): Patient obese and deconditioned. -patient wants to discharge to home w/ family who will care for her - Pt needs SNF/IPR, family agreed. Assessment & Plan (08/22/2024 2:16 PM CDT): Patient obese and deconditioned. -patient wants to discharge to home w/ family who will care for her - Pt needs SNF/IPR, family agreed. Assessment & Plan (08/21/2024 3:20 PM CDT): Patient obese and deconditioned. -patient wants to discharge to home w/ family who will care for her - Pt needs SNF/IPR, family agreed. Assessment & Plan (08/20/2024 4:38 PM CDT): Patient obese and deconditioned. -patient wants to discharge to home w/ family who will care for her - Pt needs SNF/IPR, family agreed. Assessment & Plan (08/19/2024 4:21 PM CDT): Patient obese and deconditioned. -patient wants to discharge to home w/ family who will care for her Assessment & Plan (08/18/2024 9:06 AM CDT): Patient obese and deconditioned. -patient wants to discharge to home w/ family who will care for her Assessment & Plan (08/17/2024 11:39 AM CDT): Patient obese and deconditioned. -patient wants to discharge to home w/ family who will care for her Assessment & Plan (08/16/2024 10:30 AM CDT): Patient obese and deconditioned. -patient wants to discharge to home w/ family who will care for her Assessment & Plan (08/15/2024 7:54 AM CDT): Patient obese and deconditioned. -patient wants to discharge to home w/ family who will care for her Assessment & Plan (08/14/2024 11:49 AM CDT): Patient obese and deconditioned. -patient wants to discharge to home w/ family who will care for her Assessment & Plan (08/13/2024 1:27 PM CDT): Patient obese and deconditioned. -working on IPR discharge acceptance -if she is not accepted patient wants to discharge to home w/ family who will care for her Assessment & Plan (08/12/2024 8:00 AM CDT): Patient obese and deconditioned. -working on IPR discharge acceptance -if she is not accepted patient wants to discharge to home w/ family who will care for her Assessment & Plan (08/11/2024 2:05 PM CDT): Patient obese and deconditioned. -working on IPR discharge acceptance -if she is not accepted patient wants to discharge to home w/ family who will care for her Assessment & Plan (08/10/2024 11:43 AM CDT): Patient obese and deconditioned. -working on IPR discharge acceptance -if she is not accepted patient wants to discharge to home w/ family who will care for her Assessment & Plan (08/09/2024 10:35 AM CDT): Patient obese and deconditioned. -working on IPR discharge acceptance -if she is not accepted patient wants to discharge to home w/ family who will care for her Diarrhea 08/03/2024 Assessment & Plan (01/20/2025 1:08 PM CDT): Switch to lomotil QID , c/w loeramide prn --> d/c 'ed for bowel prep for surgery Suspect antibiotic -associated , CTM Assessment & Plan (01/19/2025 8:40 PM CDT): Switch to lomotil QID , c/w loeramide prn --> d/c 'ed for bowel prep for surgery Suspect antibiotic -associated , CTM Assessment & Plan (01/18/2025 3:27 PM CDT): Switch to lomotil QID , c/w loeramide prn Assessment & Plan (01/17/2025 2:32 PM CDT): C/w loperamide --> scheduled Assessment & Plan (01/16/2025 9:26 PM CDT): C/w loperamide --> scheduled Assessment & Plan (01/15/2025 9:08 PM CDT): C/w loperamide prn Assessment & Plan (01/14/2025 11:06 PM CDT): C/w loperamide prn Assessment & Plan (01/13/2025 8:04 PM CDT): C/w loperamide prn Assessment & Plan (01/12/2025 1:20 PM CDT): Resumed loperamide - was held on 12/31 d/t c/f serotonin syndrome (clonus/asterixis now resolved) -on imodium with better control Assessment & Plan (01/11/2025 12:18 PM CDT): Resumed loperamide - was held on 12/31 d/t c/f serotonin syndrome (clonus/asterixis now resolved) Assessment & Plan (01/10/2025 11:26 AM CDT): Resumed loperamide - was held on 12/31 d/t c/f serotonin syndrome (clonus/asterixis now resolved) Assessment & Plan (01/09/2025 11:58 AM CDT): Resumed loperamide - was held on 12/31 d/t c/f serotonin syndrome (clonus/asterixis now resolved) Assessment & Plan (01/08/2025 10:29 AM CDT): Resumed loperamide - was held on 12/31 d/t c/f serotonin syndrome (clonus/asterixis now resolved) Assessment & Plan (01/07/2025 1:32 PM CDT): Resumed loperamide - was held on 12/31 d/t c/f serotonin syndrome (clonus/asterixis now resolved) Assessment & Plan (01/06/2025 1:47 PM CDT): Resumed loperamide - was held on 12/31 d/t c/f serotonin syndrome (clonus/asterixis now resolved) Assessment & Plan (01/05/2025 8:19 PM CDT): Resumed loperamide - was held on 12/31 d/t c/f serotonin syndrome (clonus/asterixis now resolved) Assessment & Plan (01/04/2025 2:44 PM CDT): Resumed loperamide - was held on 12/31 d/t c/f serotonin syndrome (clonus/asterixis now resolved) Assessment & Plan (01/03/2025 6:12 PM CDT): Resume loperamide - was held on 12/31 d/t c/f serotonin syndrome (clonus/asterixis now resolved) Assessment & Plan (09/05/2024 1:34 PM CDT): Negative C diff. Likely 2/2 Abx courses - trial imodium TID -> when improved change to prn Assessment & Plan (09/04/2024 3:38 PM CDT): Negative C diff. Likely 2/2 Abx courses - trial imodium TID -> when improved change to prn Assessment & Plan (09/04/2024 12:00 AM CDT): Negative C diff. Likely 2/2 Abx courses - trial imodium TID -> when improved change to prn Assessment & Plan (09/02/2024 10:16 PM CDT): Negative C diff. Likely 2/2 Abx courses - trial imodium TID -> when improved change to prn Assessment & Plan (09/01/2024 6:41 PM CDT): Negative C diff. Likely 2/2 Abx courses - trial imodium TID -> when improved change to prn Assessment & Plan (08/31/2024 2:41 PM CDT): Negative C diff. Likely 2/2 Abx courses - trial imodium TID -> when improved change to prn Assessment & Plan (08/30/2024 1:50 PM CDT): Will check C diff, stool WBC - then start imodium prn Assessment & Plan (08/23/2024 1:59 PM CDT): C. Diff negative. Possible due to zosyn. - Loperamide prn Assessment & Plan (08/22/2024 2:16 PM CDT): C. Diff negative. Possible due to zosyn. - Loperamide prn Assessment & Plan (08/21/2024 3:20 PM CDT): C. Diff negative. Possible due to zosyn. - Loperamide prn Assessment & Plan (08/20/2024 4:38 PM CDT): C. Diff negative. Possible due to zosyn. - Loperamide prn Assessment & Plan (08/19/2024 4:21 PM CDT): C. Diff negative. Possible due to zosyn. - Loperamide prn Assessment & Plan (08/18/2024 9:06 AM CDT): C. Diff negative. Possible due to zosyn. - Loperamide prn Assessment & Plan (08/17/2024 11:39 AM CDT): C. Diff negative. Possible due to zosyn. - Loperamide prn Assessment & Plan (08/16/2024 10:30 AM CDT): C. Diff negative. Possible due to zosyn. - Loperamide prn Assessment & Plan (08/15/2024 7:54 AM CDT): C. Diff negative. Possible due to zosyn. - Loperamide prn Assessment & Plan (08/14/2024 8:13 AM CDT): C. Diff negative. Possible due to zosyn. - Loperamide prn Assessment & Plan (08/13/2024 1:27 PM CDT): C. Diff negative. Possible due to zosyn. - Loperamide prn Assessment & Plan (08/12/2024 12:36 PM CDT): C. Diff negative. Possible due to zosyn. - Loperamide prn Assessment & Plan (08/11/2024 2:05 PM CDT): Started on develop liquid stools on 08/03. Given history of prolonged abx exposure previously and now on abx again. C. Diff however negative. Possible due to zosyn. - Loperamide prn Assessment & Plan (08/10/2024 11:43 AM CDT): Started on develop liquid stools on 08/03. Given history of prolonged abx exposure previously and now on abx again. C. Diff however negative. Possible due to zosyn. - Loperamide prn Assessment & Plan (08/09/2024 10:35 AM CDT): Started on develop liquid stools on 08/03. Given history of prolonged abx exposure previously and now on abx again. C. Diff however negative. Possible due to zosyn. - Loperamide prn Assessment & Plan (08/08/2024 1:49 PM CDT): Started on develop liquid stools on 08/03. Given history of prolonged abx exposure previously and now on abx again. C. Diff however negative. Possible due to zosyn. - Loperamide prn Assessment & Plan (08/07/2024 2:44 PM CDT): Started on develop liquid stools on 08/03. Given history of prolonged abx exposure previously and now on abx again. C. Diff however negative. Possible due to zosyn. - Loperamide prn Assessment & Plan (08/06/2024 12:37 PM CDT): Started on develop liquid stools on 08/03. Given history of prolonged abx exposure previously and now on abx again. C. Diff however negative. Possible due to zosyn. - Loperamide prn Assessment & Plan (08/04/2024 2:33 PM CDT): Started on develop liquid stools on 08/03. Given history of prolonged abx exposure previously and now on abx again. C. Diff however negative. Possible due to zosyn. - Loperamide prn Assessment & Plan (08/03/2024 8:32 AM CDT): Started on develop liquid stools on 08/03. Given history of prolonged abx exposure previously and now on abx again, will get c.diff - Follow c. Diff results - Start loperamide if c.diff negative. VRE (vancomycin resistant enterococcus) culture positive 07/31/2024 Assessment & Plan (09/05/2024 1:34 PM CDT): Likely source suspected to be urinary tract. Completed therapy Assessment & Plan (09/04/2024 3:38 PM CDT): Likely source suspected to be urinary tract. Completed therapy Assessment & Plan (09/04/2024 12:00 AM CDT): Likely source suspected to be urinary tract. Completed therapy Assessment & Plan (09/02/2024 10:16 PM CDT): Likely source suspected to be urinary tract. Completed therapy Assessment & Plan (09/01/2024 6:41 PM CDT): Likely source suspected to be urinary tract. Completed therapy Assessment & Plan (08/31/2024 2:41 PM CDT): Likely source suspected to be urinary tract. Completed therapy Assessment & Plan (08/30/2024 10:30 PM CDT): Likely source suspected to be urinary tract. Completed therapy Assessment & Plan (08/23/2024 1:59 PM CDT): Likely source suspected to be urinary tract. Completed therapy - ID consulted appreciate recs. - NEG urine culture on 08/19 Assessment & Plan (08/22/2024 2:16 PM CDT): Likely source suspected to be urinary tract. Completed therapy - ID consulted appreciate recs. - NEG urine culture on 08/19 Assessment & Plan (08/21/2024 3:20 PM CDT): Likely source suspected to be urinary tract. Completed therapy - ID consulted appreciate recs. - NEG urine culture on 08/19 Assessment & Plan (08/20/2024 4:38 PM CDT): Likely source suspected to be urinary tract. Completed therapy - ID consulted appreciate recs. - NEG urine culture on 08/19 Assessment & Plan (08/19/2024 4:21 PM CDT): Likely source suspected to be urinary tract. Completed therapy - ID consulted appreciate recs. Assessment & Plan (08/18/2024 9:06 AM CDT): Likely source suspected to be urinary tract. Completed therapy - ID consulted appreciate recs. Assessment & Plan (08/17/2024 11:39 AM CDT): Likely source suspected to be urinary tract. Completed therapy - ID consulted appreciate recs. Assessment & Plan (08/16/2024 10:30 AM CDT): Likely source suspected to be urinary tract. Completed therapy - ID consulted appreciate recs. Assessment & Plan (08/15/2024 7:54 AM CDT): Likely source suspected to be urinary tract. Completed therapy - ID consulted appreciate recs. Assessment & Plan (08/14/2024 8:13 AM CDT): Likely source suspected to be urinary tract. - Continue pip-tazo until 08/14 - ID consulted appreciate recs. Assessment & Plan (08/13/2024 1:27 PM CDT): Likely source suspected to be urinary tract. - Continue linezolid until 08/13 - Continue pip-tazo until 08/14 - ID consulted appreciate recs. Assessment & Plan (08/12/2024 12:36 PM CDT): Likely source suspected to be urinary tract. - Continue linezolid until 08/13 - Continue pip-tazo until 08/14 - ID consulted appreciate recs. Assessment & Plan (08/11/2024 2:05 PM CDT): Started developing chills on 07/30. Had no associated derangement of vital signs. Lactate initially 6.0. wbc initially 7 but then up trending to 9.9. Started on vanc and zosyn but transitioned to linezolid once cultues showing VRE (e. Fecium). She remains HDS at this time. Likely source suspected to be urinary tract. - Linezolid and zosyn 07/31-, per ID can d/c zosyn 24 hours after OR, linezolid for 14 days (EOT 08/13) - ID consulted appreciate recs. Assessment & Plan (08/10/2024 11:43 AM CDT): Started developing chills on 07/30. Had no associated derangement of vital signs. Lactate initially 6.0. wbc initially 7 but then up trending to 9.9. Started on vanc and zosyn but transitioned to linezolid once cultues showing VRE (e. Fecium). She remains HDS at this time. Likely source suspected to be urinary tract. - Linezolid and zosyn 4/10-, per ID can d/c zosyn 24 hours after OR, linezolid for 14 days (EOT 08/13) - ID consulted appreciate recs. Assessment & Plan (08/09/2024 10:35 AM CDT): Started developing chills on 07/30. Had no associated derangement of vital signs. Lactate initially 6.0. wbc initially 7 but then up trending to 9.9. Started on vanc and zosyn but transitioned to linezolid once cultues showing VRE (e. Fecium). She remains HDS at this time. Likely source suspected to be urinary tract. - Linezolid and zosyn 4/10-, per ID can d/c zosyn 24 hours after OR, linezolid for 14 days (EOT 08/13) - ID consulted appreciate recs. Assessment & Plan (08/08/2024 1:49 PM CDT): Started developing chills on 07/30. Had no associated derangement of vital signs. Lactate initially 6.0. wbc initially 7 but then up trending to 9.9. Started on vanc and zosyn but transitioned to linezolid once cultues showing VRE (e. Fecium). She remains HDS at this time. Likely source suspected to be urinary tract. - Linezolid and zosyn 4/10-, per ID can d/c zosyn 24 hours after OR, linezolid for 14 days (EOT 08/13) - ID consulted appreciate recs. Assessment & Plan (08/07/2024 2:44 PM CDT): Started developing chills on 07/30. Had no associated derangement of vital signs. Lactate initially 6.0. wbc initially 7 but then up trending to 9.9. Started on vanc and zosyn but transitioned to linezolid once cultues showing VRE (e. Fecium). She remains HDS at this time. Likely source suspected to be urinary tract. - Linezolid and zosyn 4/10-, per ID can d/c zosyn 24 hours after OR, linezolid for 14 days (EOT 08/13) - ID consulted appreciate recs. Assessment & Plan (08/06/2024 12:37 PM CDT): Started developing chills on 07/30. Had no associated derangement of vital signs. Lactate initially 6.0. wbc initially 7 but then up trending to 9.9. Started on vanc and zosyn but transitioned to linezolid once cultues showing VRE (e. Fecium). She remains HDS at this time. Likely source suspected to be urinary tract. - Linezolid and zosyn 4/10-, per ID can d/c zosyn 24 hours after OR, linezolid for 14 days (EOT 08/13) - ID consulted appreciate recs. Assessment & Plan (08/04/2024 2:33 PM CDT): Started developing chills on 07/30. Had no associated derangement of vital signs. Lactate initially 6.0. wbc initially 7 but then up trending to 9.9. Started on vanc and zosyn but transitioned to linezolid once cultues showing VRE (e. Fecium). She remains HDS at this time. Likely source suspected to be urinary tract. - Linezolid and zosyn 4/10-, per ID can d/c zosyn 24 hours after OR, linezolid for 14 days (EOT 08/13) - ID consulted appreciate recs. Assessment & Plan (08/03/2024 8:32 AM CDT): Started developing chills on 07/30. Had no associated derangement of vital signs. Lactate initially 6.0. wbc initially 7 but then up trending to 9.9. Started on vanc and zosyn but transitioned to linezolid once cultues showing VRE (e. Fecium). She remains HDS at this time. Likely source suspected to be urinary tract. - Linezolid and zosyn 4/10- - ID consulted appreciate recs. Assessment & Plan (08/02/2024 9:22 AM CDT): Started developing chills on 07/30. Had no associated derangement of vital signs. Lactate initially 6.0. wbc initially 7 but then up trending to 9.9. Started on vanc and zosyn but transitioned to linezolid once cultues showing VRE (e. Fecium). She remains HDS at this time. Likely source suspected to be urinary tract. - Linezolid and zosyn 07/31- - ID consulted appreciate recs. Assessment & Plan (08/01/2024 12:29 PM CDT): Started developing chills on 07/30. Had no associated derangement of vital signs. Lactate initially 6.0. wbc initially 7 but then up trending to 9.9. Started on vanc and zosyn but transitioned to linezolid once cultues showing VRE (e. Fecium). She remains HDS at this time. Likely source suspected to be urinary tract. - Linezolid and zosyn 07/31- - ID consulted appreciate recs. Assessment & Plan (07/31/2024 12:03 PM CDT): Started developing chills on 07/30. Had no associated derangement of vital signs. Lactate initially 6.0. wbc initially 7 but then up trending to 9.9. Started on vanc and zosyn but transitioned to linezolid once cultues showing VRE. She remains HDS at this time. Likely source suspected to be urinary tract. - Linezolid and zosyn 07/31- - ID consulted appreciate recs. Limb ischemia 07/16/2024 Assessment & Plan (09/05/2024 1:34 PM CDT): Secondary to Radial artery thrombosis. - Continue ASA. Assessment & Plan (09/04/2024 3:38 PM CDT): Secondary to Radial artery thrombosis. - Continue ASA. Assessment & Plan (09/04/2024 12:00 AM CDT): Secondary to Radial artery thrombosis. - Continue ASA. Assessment & Plan (09/02/2024 10:16 PM CDT): Secondary to Radial artery thrombosis. - Continue ASA. Assessment & Plan (09/01/2024 6:41 PM CDT): Secondary to Radial artery thrombosis. - Continue ASA. Assessment & Plan (08/31/2024 7:41 AM CDT): Secondary to Radial artery thrombosis. - Continue ASA. Assessment & Plan (08/30/2024 8:14 AM CDT): Secondary to Radial artery thrombosis. - Continue ASA. Assessment & Plan (08/23/2024 1:59 PM CDT): Secondary to Radial artery thrombosis. - Continue ASA. Assessment & Plan (08/22/2024 2:16 PM CDT): Secondary to Radial artery thrombosis. - Continue ASA. Assessment & Plan (08/21/2024 3:20 PM CDT): Secondary to Radial artery thrombosis. - Continue ASA. Assessment & Plan (08/20/2024 4:38 PM CDT): Secondary to Radial artery thrombosis. - Continue ASA. Assessment & Plan (08/19/2024 4:21 PM CDT): Secondary to Radial artery thrombosis. - Continue ASA. Assessment & Plan (08/18/2024 9:06 AM CDT): Secondary to Radial artery thrombosis. - Continue ASA. Assessment & Plan (08/17/2024 11:39 AM CDT): Secondary to Radial artery thrombosis. - Continue ASA. Assessment & Plan (08/16/2024 10:30 AM CDT): Secondary to Radial artery thrombosis. - Continue ASA. Assessment & Plan (08/15/2024 7:54 AM CDT): Secondary to Radial artery thrombosis. - Continue ASA. Assessment & Plan (08/14/2024 8:13 AM CDT): Secondary to Radial artery thrombosis. - Continue ASA. Assessment & Plan (08/13/2024 1:27 PM CDT): Secondary to Radial artery thrombosis. - Continue ASA. Assessment & Plan (08/12/2024 12:36 PM CDT): Secondary to Radial artery thrombosis. - Continue ASA. Assessment & Plan (08/11/2024 2:05 PM CDT): 3/ noted R hand duskiness and mottling. Radial artery thrombosed. - Vascular surgery following. Per last vascular note, R radial artery appears to be thrombosed. S/p heparin gtt in ICU. - warming of RUE - q4 neurovascular checks - RUE venous dopplers with no DVT - stopped heparin gtt. - Continue ASA. Assessment & Plan (08/10/2024 11:43 AM CDT): 3/ noted R hand duskiness and mottling. Radial artery thrombosed. - Vascular surgery following. Per last vascular note, R radial artery appears to be thrombosed. S/p heparin gtt in ICU. - warming of RUE - q4 neurovascular checks - RUE venous dopplers with no DVT - stopped heparin gtt. - Continue ASA. Assessment & Plan (08/09/2024 10:35 AM CDT): 3/ noted R hand duskiness and mottling. Radial artery thrombosed. - Vascular surgery following. Per last vascular note, R radial artery appears to be thrombosed. S/p heparin gtt in ICU. - warming of RUE - q4 neurovascular checks - RUE venous dopplers with no DVT - stopped heparin gtt. - Continue ASA. Assessment & Plan (08/08/2024 1:49 PM CDT): 3/ noted R hand duskiness and mottling. Radial artery thrombosed. - Vascular surgery following. Per last vascular note, R radial artery appears to be thrombosed. S/p heparin gtt in ICU. - warming of RUE - q4 neurovascular checks - RUE venous dopplers with no DVT - stopped heparin gtt. - Continue ASA. Assessment & Plan (08/07/2024 2:44 PM CDT): 3/ noted R hand duskiness and mottling. Radial artery thrombosed. - Vascular surgery following. Per last vascular note, R radial artery appears to be thrombosed. S/p heparin gtt in ICU. - warming of RUE - q4 neurovascular checks - RUE venous dopplers with no DVT - stopped heparin gtt. - Continue ASA. Assessment & Plan (08/06/2024 12:37 PM CDT): 3/ noted R hand duskiness and mottling. Radial artery thrombosed. - Vascular surgery following. Per last vascular note, R radial artery appears to be thrombosed. S/p heparin gtt in ICU. - warming of RUE - q4 neurovascular checks - RUE venous dopplers with no DVT - stopped heparin gtt. - Continue ASA. Assessment & Plan (08/04/2024 2:33 PM CDT): 3/ noted R hand duskiness and mottling. Vascular surgery following. Per last vascular note, R radial artery appears to be thrombosed. Started heparin gtt in ICU. - warming of RUE - q4 neurovascular checks - RUE venous dopplers with no DVT - stopped heparin gtt. - Continue ASA. Assessment & Plan (08/03/2024 8:32 AM CDT): 3/ noted R hand duskiness and mottling. Vascular surgery following. Per last vascular note, R radial artery appears to be thrombosed. Started heparin gtt in ICU. - warming of RUE - q4 neurovascular checks - RUE venous dopplers with no DVT - stopped heparin gtt. - Continue ASA. Assessment & Plan (08/02/2024 9:22 AM CDT): 3/ noted R hand duskiness and mottling. Vascular surgery following. Per last vascular note, R radial artery appears to be thrombosed. Started heparin gtt in ICU. - warming of RUE - q4 neurovascular checks - RUE venous dopplers with no DVT - stopped heparin gtt. - Continue ASA. Assessment & Plan (08/01/2024 12:29 PM CDT): 3/ noted R hand duskiness and mottling. Vascular surgery following. Per last vascular note, R radial artery appears to be thrombosed. Started heparin gtt in ICU. - warming of RUE - q4 neurovascular checks - RUE venous dopplers with no DVT - stopped heparin gtt. - Continue ASA. Assessment & Plan (07/31/2024 12:03 PM CDT): 3/ noted R hand duskiness and mottling. Vascular surgery following. Per last vascular note, R radial artery appears to be thrombosed. Started heparin gtt in ICU. - warming of RUE - q4 neurovascular checks - RUE venous dopplers with no DVT - stopped heparin gtt. - Continue ASA. Assessment & Plan (07/30/2024 12:46 PM CDT): 3/ noted R hand duskiness and mottling. Vascular surgery following. Per last vascular note, R radial artery appears to be thrombosed. Started heparin gtt in ICU. - warming of RUE - q4 neurovascular checks - RUE venous dopplers with no DVT - stopped heparin gtt. - Continue ASA. Assessment & Plan (07/29/2024 12:35 PM CDT): 3/ noted R hand duskiness and mottling. Vascular surgery following. Per last vascular note, R radial artery appears to be thrombosed. Started heparin gtt in ICU. - warming of RUE - q4 neurovascular checks - RUE venous dopplers with no DVT - stopped heparin gtt. - Continue ASA. Hydronephrosis with urinary obstruction due to renal calculus 07/06/2024 Assessment & Plan (09/05/2024 1:34 PM CDT): on presentation: CT with right-sided 3mm obstructing ureteral stone associated with hydronephrosis and agapito-nephric stranding. She is s/p right ureteral stent placement for septic stone on 07/06/24. Post-operatively, she required admission to SICU with pressor support for hypotension. Repeat CT scan on 07/28/24 showed passage of right ureteral stone, stable bilateral stone burden. She is s/p cystoscopy, R ureteroscopy, R laser lithotripsy and R ureteral stent placement (08/05/24) and cystoscopy, L ureteroscopy, L stone extraction, L ureteral stent placement, L pyelogram (08/12/24). She was transferred to ICU on 08/24/24 for hypotension. Repeat UCx (08/25) with clinically insignificant growth. S/p Bilateral ureteral stents removed at bedside on 08/28/24, Plan - Pain control: flexeril TID, oxy prn, dilaudid prn - Follow-up in stone clinic in 4-6 weeks with RBUS - c/w mcclelland's flushes Q 4 - (Suleiman) expressed desire to perform ordered Q4 mcclelland flushes given that he will be performing it at home by himself. RN provided education per policy via teach-back method with . demonstrated and verbalized understanding of education. Assessment & Plan (09/04/2024 3:38 PM CDT): on presentation: CT with right-sided 3mm obstructing ureteral stone associated with hydronephrosis and agapito-nephric stranding. She is s/p right ureteral stent placement for septic stone on 07/06/24. Post-operatively, she required admission to SICU with pressor support for hypotension. Repeat CT scan on 07/28/24 showed passage of right ureteral stone, stable bilateral stone burden. She is s/p cystoscopy, R ureteroscopy, R laser lithotripsy and R ureteral stent placement (08/05/24) and cystoscopy, L ureteroscopy, L stone extraction, L ureteral stent placement, L pyelogram (08/12/24). She was transferred to ICU on 08/24/24 for hypotension. Repeat UCx (08/25) with clinically insignificant growth. S/p Bilateral ureteral stents removed at bedside on 08/28/24, Plan - Pain control: flexeril TID, oxy prn, dilaudid prn - Follow-up in stone clinic in 4-6 weeks with RBUS - c/w mcclelland's flushes Q 4 - (Suleiman) expressed desire to perform ordered Q4 mcclelland flushes given that he will be performing it at home by himself. RN provided education per policy via teach-back method with . demonstrated and verbalized understanding of education. Assessment & Plan (09/04/2024 12:00 AM CDT): on presentation: CT with right-sided 3mm obstructing ureteral stone associated with hydronephrosis and agapito-nephric stranding. She is s/p right ureteral stent placement for septic stone on 07/06/24. Post-operatively, she required admission to SICU with pressor support for hypotension. Repeat CT scan on 07/28/24 showed passage of right ureteral stone, stable bilateral stone burden. She is s/p cystoscopy, R ureteroscopy, R laser lithotripsy and R ureteral stent placement (08/05/24) and cystoscopy, L ureteroscopy, L stone extraction, L ureteral stent placement, L pyelogram (08/12/24). She was transferred to ICU on 08/24/24 for hypotension. Repeat UCx (08/25) with clinically insignificant growth. S/p Bilateral ureteral stents removed at bedside on 08/28/24, Plan - Pain control: flexeril TID, oxy prn, dilaudid prn - Follow-up in stone clinic in 4-6 weeks with RBUS - c/w mcclelland's flushes Q 4 - (Suleiman) expressed desire to perform ordered Q4 mcclelland flushes given that he will be performing it at home by himself. RN provided education per policy via teach-back method with . demonstrated and verbalized understanding of education. Assessment & Plan (09/02/2024 10:16 PM CDT): on presentation: CT with right-sided 3mm obstructing ureteral stone associated with hydronephrosis and agapito-nephric stranding. She is s/p right ureteral stent placement for septic stone on 07/06/24. Post-operatively, she required admission to SICU with pressor support for hypotension. Repeat CT scan on 07/28/24 showed passage of right ureteral stone, stable bilateral stone burden. She is s/p cystoscopy, R ureteroscopy, R laser lithotripsy and R ureteral stent placement (08/05/24) and cystoscopy, L ureteroscopy, L stone extraction, L ureteral stent placement, L pyelogram (08/12/24). She was transferred to ICU on 08/24/24 for hypotension. Repeat UCx (08/25) with clinically insignificant growth. S/p Bilateral ureteral stents removed at bedside on 08/28/24, Plan - Pain control: flexeril TID, oxy prn, dilaudid prn - Follow-up in stone clinic in 4-6 weeks with RBUS - c/w mcclelland's flushes Q 4 - (Suleiman) expressed desire to perform ordered Q4 mcclelland flushes given that he will be performing it at home by himself. RN provided education per policy via teach-back method with . demonstrated and verbalized understanding of education. Assessment & Plan (09/01/2024 6:41 PM CDT): on presentation: CT with right-sided 3mm obstructing ureteral stone associated with hydronephrosis and agapito-nephric stranding. She is s/p right ureteral stent placement for septic stone on 07/06/24. Post-operatively, she required admission to SICU with pressor support for hypotension. Repeat CT scan on 07/28/24 showed passage of right ureteral stone, stable bilateral stone burden. She is s/p cystoscopy, R ureteroscopy, R laser lithotripsy and R ureteral stent placement (08/05/24) and cystoscopy, L ureteroscopy, L stone extraction, L ureteral stent placement, L pyelogram (08/12/24). She was transferred to ICU on 08/24/24 for hypotension. Repeat UCx (08/25) with clinically insignificant growth. S/p Bilateral ureteral stents removed at bedside on 08/28/24, Plan - Pain control: flexeril TID, oxy prn, dilaudid prn - Follow-up in stone clinic in 4-6 weeks with RBUS - c/w mcclelland's flushes Q 4 - (Suleiman) expressed desire to perform ordered Q4 mcclelland flushes given that he will be performing it at home by himself. RN provided education per policy via teach-back method with . demonstrated and verbalized understanding of education. Assessment & Plan (08/31/2024 2:43 PM CDT): on presentation: CT with right-sided 3mm obstructing ureteral stone associated with hydronephrosis and agapito-nephric stranding. She is s/p right ureteral stent placement for septic stone on 07/06/24. Post-operatively, she required admission to SICU with pressor support for hypotension. Repeat CT scan on 07/28/24 showed passage of right ureteral stone, stable bilateral stone burden. She is s/p cystoscopy, R ureteroscopy, R laser lithotripsy and R ureteral stent placement (08/05/24) and cystoscopy, L ureteroscopy, L stone extraction, L ureteral stent placement, L pyelogram (08/12/24). She was transferred to ICU on 08/24/24 for hypotension. Repeat UCx (08/25) with clinically insignificant growth. S/p Bilateral ureteral stents removed at bedside on 08/28/24, Plan - Pain control: flexeril TID, oxy prn, dilaudid prn - Follow-up in stone clinic in 4-6 weeks with RBUS - Finished AB while in SICU. - c/w mcclelland's flushes Q 4 - (Suleiman) expressed desire to perform ordered Q4 mcclelland flushes given that he will be performing it at home by himself. RN provided education per policy via teach-back method with . demonstrated and verbalized understanding of education. Assessment & Plan (08/30/2024 10:30 PM CDT): on presentation: CT with right-sided 3mm obstructing ureteral stone associated with hydronephrosis and agapito-nephric stranding. She is s/p right ureteral stent placement for septic stone on 07/06/24. Post-operatively, she required admission to SICU with pressor support for hypotension. Repeat CT scan on 07/28/24 showed passage of right ureteral stone, stable bilateral stone burden. She is s/p cystoscopy, R ureteroscopy, R laser lithotripsy and R ureteral stent placement (08/05/24) and cystoscopy, L ureteroscopy, L stone extraction, L ureteral stent placement, L pyelogram (08/12/24). She was transferred to ICU on 08/24/24 for hypotension. Repeat UCx (08/25) with clinically insignificant growth. S/p Bilateral ureteral stents removed at bedside on 08/28/24, Plan - Pain control: flexeril TID, oxy prn, dilaudid prn - Follow-up in stone clinic in 4-6 weeks with RBUS - Finished AB while in SICU. Assessment & Plan (08/23/2024 1:59 PM CDT): Plan - Pain control: flexeril TID, oxy prn, dilaudid prn - Restart DVT ppx - Urology consulted, appreciate assistance - Follow up with on 08/28 for stent removal - Will need to discharge with a 3 day prescription for linezolid to be held for stent removal - seen again on 08/21, no new recs Assessment & Plan (08/22/2024 2:16 PM CDT): Plan - Pain control: flexeril TID, oxy prn, dilaudid prn - Restart DVT ppx - Urology consulted, appreciate assistance - Follow up with on 08/28 for stent removal - Will need to discharge with a 3 day prescription for linezolid to be held for stent removal - seen again on 08/21, will follow recs. Assessment & Plan (08/21/2024 3:20 PM CDT): Plan - Pain control: flexeril TID, oxy prn, dilaudid prn - Restart DVT ppx - Urology consulted, appreciate assistance - Follow up with on 08/28 for stent removal - Will need to discharge with a 3 day prescription for linezolid to be held for stent removal - seen again on 08/21, will follow recs. Assessment & Plan (08/20/2024 4:38 PM CDT): Plan - Pain control: flexeril TID, oxy prn, dilaudid prn - Restart DVT ppx - Urology consulted, appreciate assistance - Follow up with on 08/28 for stent removal - Will need to discharge with a 3 day prescription for linezolid to be held for stent removal Assessment & Plan (08/19/2024 4:21 PM CDT): Plan - Pain control: flexeril TID, oxy prn, dilaudid prn - Restart DVT ppx - Urology consulted, appreciate assistance - Follow up in a few weeks for stent removal - Will need to discharge with a 3 day prescription for linezolid to be held for stent removal Assessment & Plan (08/18/2024 9:06 AM CDT): Plan - Pain control: flexeril TID, oxy prn, dilaudid prn - Restart DVT ppx - Urology consulted, appreciate assistance - Follow up in a few weeks for stent removal - Will need to discharge with a 3 day prescription for linezolid to be held for stent removal Assessment & Plan (08/17/2024 11:39 AM CDT): Plan - Pain control: flexeril TID, oxy prn, dilaudid prn - Restart DVT ppx - Urology consulted, appreciate assistance - Follow up in a few weeks for stent removal - Will need to discharge with a 3 day prescription for linezolid to be held for stent removal Assessment & Plan (08/16/2024 10:30 AM CDT): Plan - Pain control: flexeril TID, oxy prn, dilaudid prn - Restart DVT ppx - Urology consulted, appreciate assistance - Follow up in a few weeks for stent removal - Will need to discharge with a 3 day prescription for linezolid to be held for stent removal Assessment & Plan (08/15/2024 7:54 AM CDT): Plan - Pain control: flexeril TID, oxy prn, dilaudid prn - Urology consulted, appreciate assistance - Follow up in a few weeks for stent removal - Will need to discharge with a 3 day prescription for linezolid to be held for stent removal Assessment & Plan (08/14/2024 8:13 AM CDT): Plan - Continue pip-tazo 48 hours post procedure - Pain control: flexeril TID, oxy prn, dilaudid prn - Urology consulted, appreciate assistance - Follow up in a few weeks for stent removal - Will need to discharge with a 3 day prescription for linezolid to be held for stent removal Assessment & Plan (08/13/2024 1:27 PM CDT): Plan - Continue pip-tazo 48 hours post procedure - Pain control: flexeril TID, oxy prn, dilaudid prn - Urology consulted, appreciate assistance - Follow up in a few weeks for stent removal - Will need to discharge with a 3 day prescription for linezolid to be held for stent removal Assessment & Plan (08/12/2024 12:36 PM CDT): Plan - Continue pip-tazo 48 hours post procedure - Pain control: flexeril TID, oxy prn, dilaudid prn - Urology consulted, appreciate assistance - Plan for left stone removal 08/12 Assessment & Plan (08/11/2024 2:05 PM CDT): S/p right ureteral stent 07/06. R kidney US 07/09 negative for hydronephrosis. Repeat CT with persistent R and L kidney stones but passed right distal stone. Urology contacted: OR deferred due to concerns for infection and need for requiring optimization. - 08/05 s/p R side kidney stone removed with J stent placed Plan -Urology plans for L renal stone removal in OR 08/12. Start zosyn 08/11 and continue 48 hours post procedure. -pain control: flexeril TID, oxy prn, dilaudid prn Assessment & Plan (08/10/2024 11:43 AM CDT): S/p right ureteral stent /. R kidney US 07/09 negative for hydronephrosis. Repeat CT with persistent R and L kidney stones but passed right distal stone. Urology contacted: OR deferred due to concerns for infection and need for requiring optimization. - 08/05 s/p R side kidney stone removed with J stent placed Plan -Urology plans for L renal stone removal in [place] 08/12. Start zosyn 08/11 and continue 48 hours post procedure. -pain control: flexeril TID, oxy prn, dilaudid prn Assessment & Plan (08/09/2024 10:35 AM CDT): S/p right ureteral stent 07/06. R kidney US 07/09 negative for hydronephrosis. Repeat CT with persistent R and L kidney stones but passed right distal stone. Urology contacted: OR deferred due to concerns for infection and need for requiring optimization. - 08/05 s/p R side kidney stone removed with J stent placed Plan -Urology plans for L renal stone removal in [place] 08/12. Start zosyn 08/11 and continue 48 hours post procedure. -pain control: flexeril TID, oxy prn, dilaudid prn Assessment & Plan (08/08/2024 1:49 PM CDT): S/p right ureteral stent 07/06. R kidney US 07/09 negative for hydronephrosis. Repeat CT with persistent R and L kidney stones but passed right distal stone. Urology contacted: OR deferred due to concerns for infection and need for requiring optimization. - 08/05 s/p R side kidney stone removed with J stent placed Plan -Urology plans for L renal stone removal in OR 08/12. Start zosyn 08/11 and continue 48 hours post procedure. -pain control: flexeril TID, oxy prn, dilaudid prn Assessment & Plan (08/07/2024 2:44 PM CDT): S/p right ureteral stent 07/06. R kidney US 07/09 negative for hydronephrosis. Repeat CT with persistent R and L kidney stones but passed right distal stone. Urology contacted: OR deferred due to concerns for infection and need for requiring optimization. - 08/05 s/p R side kidney stone removed with J stent placed Plan -Urology plans for L renal stone removal in OR 08/12. Start zosyn 08/11 and continue 48 hours post procedure. -pain control: flexeril TID, oxy prn, dilaudid prn Assessment & Plan (08/06/2024 12:37 PM CDT): S/p right ureteral stent 07/06. R kidney US 07/09 negative for hydronephrosis. Repeat CT with persistent R and L kidney stones but passed right distal stone. Urology contacted: OR deferred due to concerns for infection and need for requiring optimization. - 08/05 s/p R side kidney stone removed with J stent placed Plan -follow urology for R stent removal/eval on discharge -Urology planning for L kidney stone removal - will discuss inpt vs outpatient -pain control Assessment & Plan (08/04/2024 2:33 PM CDT): S/p right ureteral stent 07/06. R kidney US 07/09 negative for hydronephrosis. Repeat CT with persistent R and L kidney stones but passed right distal stone. Urology contacted: OR deferred due to concerns for infection and need for requiring optimization. - Now planned for OR on 08/05 Assessment & Plan (08/03/2024 8:32 AM CDT): S/p right ureteral stent 07/06. R kidney US 07/09 negative for hydronephrosis. Repeat CT with persistent R and L kidney stones but passed right distal stone. - urology contacted: OR deferred due to concerns for infection, requires optimization and may be considered for repeat exam next week - Will t/b with urology regarding OR planning on Sunday. - Mcclelland removed at this time. Assessment & Plan (08/02/2024 9:22 AM CDT): S/p right ureteral stent 07/06. R kidney US 07/09 negative for hydronephrosis. Repeat CT with persistent R and L kidney stones but passed right distal stone. - urology contacted: OR deferred due to concerns for infection, requires optimization and may be considered for repeat exam next week - Will t/b with urology regarding OR planning on Sunday. Assessment & Plan (08/01/2024 12:29 PM CDT): S/p right ureteral stent 07/06. R kidney US 07/09 negative for hydronephrosis. Repeat CT with persistent R and L kidney stones but passed right distal stone. - urology contacted: OR deferred due to concerns for infection, requires optimization and may be considered for repeat exam next week Assessment & Plan (07/31/2024 12:03 PM CDT): S/p right ureteral stent 07/06. R kidney US 07/09 negative for hydronephrosis. Repeat CT with persistent R and L kidney stones but passed right distal stone. - urology contacted: OR deferred due to concerns for infection, requires optimization and may be considered for repeat exam next week Assessment & Plan (07/30/2024 12:46 PM CDT): S/p right ureteral stent 07/06. R kidney US 07/09 negative for hydronephrosis. Repeat CT with persistent R and L kidney stones but passed right distal stone. - urology contacted: OR deferred due to concerns for infection, requires optimization and may be considered for repeat exam next week Assessment & Plan (07/29/2024 12:35 PM CDT): S/p right ureteral stent 07/06. R kidney US 07/09 negative for hydronephrosis. Repeat CT with persistent R and L kidney stones but passed right distal stone. - urology contacted: Planning OR on 07/31 for stone removal. H/o nephrolithiasis 07/06/2024 Assessment & Plan (01/20/2025 1:08 PM CDT): - 07/06 R ureteral stent placement for septic stone - 07/28 CT showed passage of R ureteral stone - 08/05 s/p cystoscopy, R ureteroscopy, R laser lithotripsy and R ureteral stent placement - 08/12 cystoscopy, L ureteroscopy, L stone extraction, L ureteral stent placement, L pyelogram - 08/28 bilateral ureteral stents removed - urology consulted on admission - Chronic mcclelland exchanged 10/30--> three way irrigation cath recommended by Urology 10/30. Changed 11/22 - mcclelland indication: obstruction from either stones and fecal matter - Noncontrast CT 12/14 unchanged nonobstructing left renal stone, 12/15 renal ultrasound none seen Assessment & Plan (01/19/2025 8:40 PM CDT): - 07/06 R ureteral stent placement for septic stone - 07/28 CT showed passage of R ureteral stone - 4/15 s/p cystoscopy, R ureteroscopy, R laser lithotripsy and R ureteral stent placement - 08/12 cystoscopy, L ureteroscopy, L stone extraction, L ureteral stent placement, L pyelogram - 08/28 bilateral ureteral stents removed - urology consulted on admission - Chronic mcclelland exchanged 10/30--> three way irrigation cath recommended by Urology 10/30. Changed 11/22 - mcclelland indication: obstruction from either stones and fecal matter - Noncontrast CT 12/14 unchanged nonobstructing left renal stone, 12/15 renal ultrasound none seen Assessment & Plan (01/18/2025 3:27 PM CDT): - 07/06 R ureteral stent placement for septic stone - 07/28 CT showed passage of R ureteral stone - 4/15 s/p cystoscopy, R ureteroscopy, R laser lithotripsy and R ureteral stent placement - 08/12 cystoscopy, L ureteroscopy, L stone extraction, L ureteral stent placement, L pyelogram - 08/28 bilateral ureteral stents removed - urology consulted on admission - Chronic mcclelland exchanged 10/30--> three way irrigation cath recommended by Urology 10/30. Changed 11/22 - mcclelland indication: obstruction from either stones and fecal matter - Noncontrast CT 12/14 unchanged nonobstructing left renal stone, 12/15 renal ultrasound none seen Assessment & Plan (01/17/2025 2:32 PM CDT): - 07/06 R ureteral stent placement for septic stone - 07/28 CT showed passage of R ureteral stone - 4/15 s/p cystoscopy, R ureteroscopy, R laser lithotripsy and R ureteral stent placement - 08/12 cystoscopy, L ureteroscopy, L stone extraction, L ureteral stent placement, L pyelogram - 08/28 bilateral ureteral stents removed - urology consulted on admission - Chronic mcclelland exchanged 10/30--> three way irrigation cath recommended by Urology 10/30. Changed 11/22 - mcclelland indication: obstruction from either stones and fecal matter - Noncontrast CT 12/14 unchanged nonobstructing left renal stone, 12/15 renal ultrasound none seen Assessment & Plan (01/16/2025 9:26 PM CDT): - 07/06 R ureteral stent placement for septic stone - 07/28 CT showed passage of R ureteral stone - 08/05 s/p cystoscopy, R ureteroscopy, R laser lithotripsy and R ureteral stent placement - 08/12 cystoscopy, L ureteroscopy, L stone extraction, L ureteral stent placement, L pyelogram - 08/28 bilateral ureteral stents removed - urology consulted on admission - Chronic mcclelland exchanged 10/30--> three way irrigation cath recommended by Urology 10/30. Changed 11/22 - mcclelland indication: obstruction from either stones and fecal matter - Noncontrast CT 12/14 unchanged nonobstructing left renal stone, 12/15 renal ultrasound none seen Assessment & Plan (01/15/2025 9:08 PM CDT): - 07/06 R ureteral stent placement for septic stone - 07/28 CT showed passage of R ureteral stone - 08/05 s/p cystoscopy, R ureteroscopy, R laser lithotripsy and R ureteral stent placement - 08/12 cystoscopy, L ureteroscopy, L stone extraction, L ureteral stent placement, L pyelogram - 08/28 bilateral ureteral stents removed - urology consulted on admission - Chronic mcclelland exchanged 10/30--> three way irrigation cath recommended by Urology 10/30. Changed 11/22 - mcclelland indication: obstruction from either stones and fecal matter - Noncontrast CT 12/14 unchanged nonobstructing left renal stone, 12/15 renal ultrasound none seen Assessment & Plan (01/14/2025 11:06 PM CDT): - 07/06 R ureteral stent placement for septic stone - 07/28 CT showed passage of R ureteral stone - /15 s/p cystoscopy, R ureteroscopy, R laser lithotripsy and R ureteral stent placement - 08/12 cystoscopy, L ureteroscopy, L stone extraction, L ureteral stent placement, L pyelogram - 08/28 bilateral ureteral stents removed - urology consulted on admission - Chronic mcclelland exchanged 10/30--> three way irrigation cath recommended by Urology 10/30. Changed 11/22 - mcclelland indication: obstruction from either stones and fecal matter - Noncontrast CT 12/14 unchanged nonobstructing left renal stone, 12/15 renal ultrasound none seen Assessment & Plan (01/13/2025 8:04 PM CDT): - 07/06 R ureteral stent placement for septic stone - 07/28 CT showed passage of R ureteral stone - 15 s/p cystoscopy, R ureteroscopy, R laser lithotripsy and R ureteral stent placement - 08/12 cystoscopy, L ureteroscopy, L stone extraction, L ureteral stent placement, L pyelogram - 08/28 bilateral ureteral stents removed - urology consulted on admission - Chronic mcclelland exchanged 10/30--> three way irrigation cath recommended by Urology 10/30. Changed 11/22 - mcclelland indication: obstruction from either stones and fecal matter - Noncontrast CT 12/14 unchanged nonobstructing left renal stone, 12/15 renal ultrasound none seen Assessment & Plan (01/12/2025 1:20 PM CDT): - 07/06 R ureteral stent placement for septic stone - 07/28 CT showed passage of R ureteral stone - 15 s/p cystoscopy, R ureteroscopy, R laser lithotripsy and R ureteral stent placement - 08/12 cystoscopy, L ureteroscopy, L stone extraction, L ureteral stent placement, L pyelogram - 08/28 bilateral ureteral stents removed - urology consulted on admission - Chronic mcclelland exchanged 10/30--> three way irrigation cath recommended by Urology 10/30. Changed 11/22 - mcclelland indication: obstruction from either stones and fecal matter - Noncontrast CT 12/14 unchanged nonobstructing left renal stone, 12/15 renal ultrasound none seen Assessment & Plan (01/11/2025 12:18 PM CDT): - 07/06 R ureteral stent placement for septic stone - 07/28 CT showed passage of R ureteral stone - 08/05 s/p cystoscopy, R ureteroscopy, R laser lithotripsy and R ureteral stent placement - 08/12 cystoscopy, L ureteroscopy, L stone extraction, L ureteral stent placement, L pyelogram - 08/28 bilateral ureteral stents removed - urology consulted on admission - Chronic mcclelland exchanged 10/30--> three way irrigation cath recommended by Urology 10/30. Changed 11/22 - mcclelland indication: obstruction from either stones and fecal matter - Noncontrast CT 12/14 unchanged nonobstructing left renal stone, 12/15 renal ultrasound none seen Assessment & Plan (01/10/2025 11:26 AM CDT): - 07/06 R ureteral stent placement for septic stone - 07/28 CT showed passage of R ureteral stone - 08/05 s/p cystoscopy, R ureteroscopy, R laser lithotripsy and R ureteral stent placement - 08/12 cystoscopy, L ureteroscopy, L stone extraction, L ureteral stent placement, L pyelogram - 08/28 bilateral ureteral stents removed - urology consulted on admission - Chronic mcclelland exchanged 10/30--> three way irrigation cath recommended by Urology 10/30. Changed 11/22 - mcclelland indication: obstruction from either stones and fecal matter - Noncontrast CT 12/14 unchanged nonobstructing left renal stone, 12/15 renal ultrasound none seen Assessment & Plan (01/09/2025 11:58 AM CDT): - 07/06 R ureteral stent placement for septic stone - 07/28 CT showed passage of R ureteral stone - 15 s/p cystoscopy, R ureteroscopy, R laser lithotripsy and R ureteral stent placement - 08/12 cystoscopy, L ureteroscopy, L stone extraction, L ureteral stent placement, L pyelogram - 08/28 bilateral ureteral stents removed - urology consulted on admission - Chronic mcclelland exchanged 10/30--> three way irrigation cath recommended by Urology 10/30. Changed 11/22 - cmclelland indication: obstruction from either stones and fecal matter - Noncontrast CT 12/14 unchanged nonobstructing left renal stone, 12/15 renal ultrasound none seen Assessment & Plan (01/08/2025 10:29 AM CDT): - 07/06 R ureteral stent placement for septic stone - 07/28 CT showed passage of R ureteral stone - /15 s/p cystoscopy, R ureteroscopy, R laser lithotripsy and R ureteral stent placement - 08/12 cystoscopy, L ureteroscopy, L stone extraction, L ureteral stent placement, L pyelogram - 08/28 bilateral ureteral stents removed - urology consulted on admission - Chronic mcclelland exchanged 10/30--> three way irrigation cath recommended by Urology 10/30. Changed 11/22 - mcclelland indication: obstruction from either stones and fecal matter - Noncontrast CT 12/14 unchanged nonobstructing left renal stone, 12/15 renal ultrasound none seen Assessment & Plan (01/07/2025 1:32 PM CDT): - 07/06 R ureteral stent placement for septic stone - 07/28 CT showed passage of R ureteral stone - 15 s/p cystoscopy, R ureteroscopy, R laser lithotripsy and R ureteral stent placement - 08/12 cystoscopy, L ureteroscopy, L stone extraction, L ureteral stent placement, L pyelogram - 08/28 bilateral ureteral stents removed - urology consulted on admission - Chronic mcclelland exchanged 10/30--> three way irrigation cath recommended by Urology 10/30. Changed 11/22 - mcclelland indication: obstruction from either stones and fecal matter - Noncontrast CT 12/14 unchanged nonobstructing left renal stone, 12/15 renal ultrasound none seen Assessment & Plan (01/06/2025 1:47 PM CDT): - 07/06 R ureteral stent placement for septic stone - 47 CT showed passage of R ureteral stone - 4/15 s/p cystoscopy, R ureteroscopy, R laser lithotripsy and R ureteral stent placement - 08/12 cystoscopy, L ureteroscopy, L stone extraction, L ureteral stent placement, L pyelogram - 08/28 bilateral ureteral stents removed - urology consulted on admission - Chronic mcclelland exchanged 10/30--> three way irrigation cath recommended by Urology 10/30. Changed 11/22 - mcclelland indication: obstruction from either stones and fecal matter - Noncontrast CT 12/14 unchanged nonobstructing left renal stone, 12/15 renal ultrasound none seen Assessment & Plan (01/05/2025 8:19 PM CDT): - 07/06 R ureteral stent placement for septic stone - 07/28 CT showed passage of R ureteral stone - 08/05 s/p cystoscopy, R ureteroscopy, R laser lithotripsy and R ureteral stent placement - 08/12 cystoscopy, L ureteroscopy, L stone extraction, L ureteral stent placement, L pyelogram - 08/28 bilateral ureteral stents removed - urology consulted on admission - Chronic mcclelland exchanged 10/30--> three way irrigation cath recommended by Urology 10/30. Changed 11/22 - mcclelland indication: obstruction from either stones and fecal matter - Noncontrast CT 12/14 unchanged nonobstructing left renal stone, 12/15 renal ultrasound none seen Assessment & Plan (01/04/2025 2:44 PM CDT): - 07/06 R ureteral stent placement for septic stone - 07/28 CT showed passage of R ureteral stone - 15 s/p cystoscopy, R ureteroscopy, R laser lithotripsy and R ureteral stent placement - 08/12 cystoscopy, L ureteroscopy, L stone extraction, L ureteral stent placement, L pyelogram - 08/28 bilateral ureteral stents removed - urology consulted on admission - Chronic mcclelland exchanged 10/30--> three way irrigation cath recommended by Urology 10/30. Changed 11/22 - mcclelland indication: obstruction from either stones and fecal matter - Noncontrast CT 12/14 unchanged nonobstructing left renal stone, 12/15 renal ultrasound none seen Assessment & Plan (01/03/2025 6:12 PM CDT): - 07/06 R ureteral stent placement for septic stone - 07/28 CT showed passage of R ureteral stone - 15 s/p cystoscopy, R ureteroscopy, R laser lithotripsy and R ureteral stent placement - 08/12 cystoscopy, L ureteroscopy, L stone extraction, L ureteral stent placement, L pyelogram - 08/28 bilateral ureteral stents removed - urology consulted on admission - Chronic mcclelland exchanged 10/30--> three way irrigation cath recommended by Urology 10/30. Changed 11/22 - mcclelland indication: obstruction from either stones and fecal matter - Noncontrast CT 12/14 unchanged nonobstructing left renal stone, 12/15 renal ultrasound none seen Assessment & Plan (01/02/2025 7:31 PM CDT): - 07/06 R ureteral stent placement for septic stone - 07/28 CT showed passage of R ureteral stone - 08/05 s/p cystoscopy, R ureteroscopy, R laser lithotripsy and R ureteral stent placement - 08/12 cystoscopy, L ureteroscopy, L stone extraction, L ureteral stent placement, L pyelogram - 08/28 bilateral ureteral stents removed - urology consulted on admission - Chronic mcclelland exchanged 10/30--> three way irrigation cath recommended by Urology 10/30. Changed 11/22 - mcclelland indication: obstruction from either stones and fecal matter - Noncontrast CT 12/14 unchanged nonobstructing left renal stone, 12/15 renal ultrasound none seen Assessment & Plan (01/01/2025 6:42 PM CDT): - 07/06 R ureteral stent placement for septic stone - 07/28 CT showed passage of R ureteral stone - 08/05 s/p cystoscopy, R ureteroscopy, R laser lithotripsy and R ureteral stent placement - 08/12 cystoscopy, L ureteroscopy, L stone extraction, L ureteral stent placement, L pyelogram - 08/28 bilateral ureteral stents removed - urology consulted on admission - Chronic mcclelland exchanged 10/30--> three way irrigation cath recommended by Urology 10/30. Changed 11/22 - mcclelland indication: obstruction from either stones and fecal matter - Noncontrast CT 12/14 unchanged nonobstructing left renal stone, 12/15 renal ultrasound none seen Assessment & Plan (12/31/2024 6:52 PM CDT): - 07/06 R ureteral stent placement for septic stone - 07/28 CT showed passage of R ureteral stone - 15 s/p cystoscopy, R ureteroscopy, R laser lithotripsy and R ureteral stent placement - 08/12 cystoscopy, L ureteroscopy, L stone extraction, L ureteral stent placement, L pyelogram - 08/28 bilateral ureteral stents removed - urology consulted on admission - Chronic mcclelland exchanged 10/30--> three way irrigation cath recommended by Urology 10/30. Changed 11/22 - mcclelland indication: obstruction from either stones and fecal matter - Noncontrast CT 12/14 unchanged nonobstructing left renal stone, 12/15 renal ultrasound none seen Assessment & Plan (12/30/2024 4:26 PM CDT): - 07/06 R ureteral stent placement for septic stone - 07/28 CT showed passage of R ureteral stone - 08/05 s/p cystoscopy, R ureteroscopy, R laser lithotripsy and R ureteral stent placement - 08/12 cystoscopy, L ureteroscopy, L stone extraction, L ureteral stent placement, L pyelogram - 08/28 bilateral ureteral stents removed - urology consulted on admission - Chronic mcclelland exchanged 10/30--> three way irrigation cath recommended by Urology 10/30. Changed 11/22 - mcclelland indication: obstruction from either stones and fecal matter - Noncontrast CT 12/14 unchanged nonobstructing left renal stone, 12/15 renal ultrasound none seen Assessment & Plan (12/29/2024 10:35 AM CDT): - 07/06 R ureteral stent placement for septic stone - 07/28 CT showed passage of R ureteral stone - 15 s/p cystoscopy, R ureteroscopy, R laser lithotripsy and R ureteral stent placement - 08/12 cystoscopy, L ureteroscopy, L stone extraction, L ureteral stent placement, L pyelogram - 08/28 bilateral ureteral stents removed - urology consulted on admission - Chronic mcclelland exchanged 10/30--> three way irrigation cath recommended by Urology 10/30. Changed 11/22 - mcclelland indication: obstruction from either stones and fecal matter - Noncontrast CT 12/14 unchanged nonobstructing left renal stone, 12/15 renal ultrasound none seen Assessment & Plan (12/28/2024 11:23 AM CDT): - 07/06 R ureteral stent placement for septic stone - 07/28 CT showed passage of R ureteral stone - 08/05 s/p cystoscopy, R ureteroscopy, R laser lithotripsy and R ureteral stent placement - 08/12 cystoscopy, L ureteroscopy, L stone extraction, L ureteral stent placement, L pyelogram - 08/28 bilateral ureteral stents removed - urology consulted on admission - Chronic mcclelland exchanged 10/30--> three way irrigation cath recommended by Urology 10/30. Changed 11/22 - mcclelland indication: obstruction from either stones and fecal matter - Noncontrast CT 12/14 unchanged nonobstructing left renal stone, 12/15 renal ultrasound none seen Assessment & Plan (12/27/2024 10:44 AM CDT): - 07/06 R ureteral stent placement for septic stone - 07/28 CT showed passage of R ureteral stone - 08/05 s/p cystoscopy, R ureteroscopy, R laser lithotripsy and R ureteral stent placement - 08/12 cystoscopy, L ureteroscopy, L stone extraction, L ureteral stent placement, L pyelogram - 08/28 bilateral ureteral stents removed - urology consulted on admission - Chronic mcclelland exchanged 10/30--> three way irrigation cath recommended by Urology 10/30. Changed 11/22 - mcclelland indication: obstruction from either stones and fecal matter - Noncontrast CT 12/14 unchanged nonobstructing left renal stone, 12/15 renal ultrasound none seen Assessment & Plan (12/26/2024 1:28 PM CDT): - 07/06 R ureteral stent placement for septic stone - 07/28 CT showed passage of R ureteral stone - 15 s/p cystoscopy, R ureteroscopy, R laser lithotripsy and R ureteral stent placement - 08/12 cystoscopy, L ureteroscopy, L stone extraction, L ureteral stent placement, L pyelogram - 08/28 bilateral ureteral stents removed - urology consulted on admission - Chronic mcclelland exchanged 10/30--> three way irrigation cath recommended by Urology 10/30. Changed 11/22 - mcclelland indication: obstruction from either stones and fecal matter - Noncontrast CT 12/14 unchanged nonobstructing left renal stone, 12/15 renal ultrasound none seen Assessment & Plan (12/25/2024 1:36 PM CDT): - 07/06 R ureteral stent placement for septic stone - 07/28 CT showed passage of R ureteral stone - /15 s/p cystoscopy, R ureteroscopy, R laser lithotripsy and R ureteral stent placement - 08/12 cystoscopy, L ureteroscopy, L stone extraction, L ureteral stent placement, L pyelogram - 08/28 bilateral ureteral stents removed - urology consulted on admission - Chronic mcclelland exchanged 10/30--> three way irrigation cath recommended by Urology 10/30. Changed 11/22 - mcclelland indication: obstruction from either stones and fecal matter - Noncontrast CT 12/14 unchanged nonobstructing left renal stone, 12/15 renal ultrasound none seen Assessment & Plan (12/24/2024 12:30 PM CDT): - 07/06 R ureteral stent placement for septic stone - 07/28 CT showed passage of R ureteral stone - 15 s/p cystoscopy, R ureteroscopy, R laser lithotripsy and R ureteral stent placement - 08/12 cystoscopy, L ureteroscopy, L stone extraction, L ureteral stent placement, L pyelogram - 08/28 bilateral ureteral stents removed - urology consulted on admission - Chronic mcclelland exchanged 10/30--> three way irrigation cath recommended by Urology 10/30. Changed 11/22 - mcclelland indication: obstruction from either stones and fecal matter - Noncontrast CT 12/14 unchanged nonobstructing left renal stone, 12/15 renal ultrasound none seen Assessment & Plan (12/23/2024 12:16 PM CDT): - 07/06 R ureteral stent placement for septic stone - 4 CT showed passage of R ureteral stone - 4/15 s/p cystoscopy, R ureteroscopy, R laser lithotripsy and R ureteral stent placement - 08/12 cystoscopy, L ureteroscopy, L stone extraction, L ureteral stent placement, L pyelogram - 08/28 bilateral ureteral stents removed - urology consulted on admission - Chronic mcclelland exchanged 10/30--> three way irrigation cath recommended by Urology 10/30. Changed 11/22 - mcclelland indication: obstruction from either stones and fecal matter - Noncontrast CT 12/14 unchanged nonobstructing left renal stone, 12/15 renal ultrasound none seen Assessment & Plan (12/22/2024 7:49 AM CDT): - 07/06 R ureteral stent placement for septic stone - 07/28 CT showed passage of R ureteral stone - 15 s/p cystoscopy, R ureteroscopy, R laser lithotripsy and R ureteral stent placement - 08/12 cystoscopy, L ureteroscopy, L stone extraction, L ureteral stent placement, L pyelogram - 08/28 bilateral ureteral stents removed - urology consulted on admission - Chronic mcclelland exchanged 10/30--> three way irrigation cath recommended by Urology 10/30. Changed 11/22 - mcclelland indication: obstruction from either stones and fecal matter - Noncontrast CT 12/14 unchanged nonobstructing left renal stone, 12/15 renal ultrasound none seen Assessment & Plan (12/21/2024 8:31 AM CDT): - 07/06 R ureteral stent placement for septic stone - 07/28 CT showed passage of R ureteral stone - 15 s/p cystoscopy, R ureteroscopy, R laser lithotripsy and R ureteral stent placement - 08/12 cystoscopy, L ureteroscopy, L stone extraction, L ureteral stent placement, L pyelogram - 08/28 bilateral ureteral stents removed - urology consulted on admission - Chronic mcclelland exchanged 10/30--> three way irrigation cath recommended by Urology 10/30. Changed 11/22 - mcclelland indication: obstruction from either stones and fecal matter - Noncontrast CT 12/14 unchanged nonobstructing left renal stone, 12/15 renal ultrasound none seen Assessment & Plan (12/20/2024 9:08 AM CDT): - 07/06 R ureteral stent placement for septic stone - 07/28 CT showed passage of R ureteral stone - 4/15 s/p cystoscopy, R ureteroscopy, R laser lithotripsy and R ureteral stent placement - 08/12 cystoscopy, L ureteroscopy, L stone extraction, L ureteral stent placement, L pyelogram - 08/28 bilateral ureteral stents removed - urology consulted on admission - Chronic mcclelland exchanged 10/30--> three way irrigation cath recommended by Urology 10/30. Changed 11/22 - mcclelland indication: obstruction from either stones and fecal matter - Noncontrast CT 12/14 unchanged nonobstructing left renal stone, 12/15 renal ultrasound none seen Assessment & Plan (12/19/2024 7:54 AM CDT): - 07/06 R ureteral stent placement for septic stone - 07/28 CT showed passage of R ureteral stone - 08/05 s/p cystoscopy, R ureteroscopy, R laser lithotripsy and R ureteral stent placement - 08/12 cystoscopy, L ureteroscopy, L stone extraction, L ureteral stent placement, L pyelogram - 08/28 bilateral ureteral stents removed - urology consulted on admission - Chronic mcclelland exchanged 10/30--> three way irrigation cath recommended by Urology 10/30. Changed 11/22 - mcclelland indication: obstruction from either stones and fecal matter - Noncontrast CT 12/14 unchanged nonobstructing left renal stone, 12/15 renal ultrasound none seen Assessment & Plan (12/18/2024 8:14 AM CDT): - 07/06 R ureteral stent placement for septic stone - 07/28 CT showed passage of R ureteral stone - 08/05 s/p cystoscopy, R ureteroscopy, R laser lithotripsy and R ureteral stent placement - 08/12 cystoscopy, L ureteroscopy, L stone extraction, L ureteral stent placement, L pyelogram - 08/28 bilateral ureteral stents removed - urology consulted on admission - Chronic mcclelland exchanged 10/30--> three way irrigation cath recommended by Urology 10/30. Changed 11/22 - mcclelland indication: obstruction from either stones and fecal matter - Noncontrast CT 12/14 unchanged nonobstructing left renal stone, 12/15 renal ultrasound none seen Assessment & Plan (12/17/2024 1:15 PM CDT): - 07/06 R ureteral stent placement for septic stone - 07/28 CT showed passage of R ureteral stone - 15 s/p cystoscopy, R ureteroscopy, R laser lithotripsy and R ureteral stent placement - 08/12 cystoscopy, L ureteroscopy, L stone extraction, L ureteral stent placement, L pyelogram - 08/28 bilateral ureteral stents removed - urology consulted on admission - Chronic mcclelland exchanged 10/30--> three way irrigation cath recommended by Urology 10/30. Changed 11/22 - mcclelland indication: obstruction from either stones and fecal matter - Noncontrast CT 12/14 unchanged nonobstructing left renal stone, 12/15 renal ultrasound none seen Assessment & Plan (12/16/2024 2:46 PM CDT): - 07/06 R ureteral stent placement for septic stone - 07/28 CT showed passage of R ureteral stone - 08/05 s/p cystoscopy, R ureteroscopy, R laser lithotripsy and R ureteral stent placement - 08/12 cystoscopy, L ureteroscopy, L stone extraction, L ureteral stent placement, L pyelogram - 08/28 bilateral ureteral stents removed - urology consulted on admission - Chronic mcclelland exchanged 10/30--> three way irrigation cath recommended by Urology 10/30. Changed 11/22 - mcclelland indication: obstruction from either stones and fecal matter - Noncontrast CT 12/14 unchanged nonobstructing left renal stone, 12/15 renal ultrasound none seen Assessment & Plan (12/15/2024 12:46 PM CDT): - 07/06 R ureteral stent placement for septic stone - 07/28 CT showed passage of R ureteral stone - 15 s/p cystoscopy, R ureteroscopy, R laser lithotripsy and R ureteral stent placement - 08/12 cystoscopy, L ureteroscopy, L stone extraction, L ureteral stent placement, L pyelogram - 08/28 bilateral ureteral stents removed - urology consulted on admission - Chronic mcclelland exchanged 10/30--> three way irrigation cath recommended by Urology 10/30. Changed 11/22 - mcclelland indication: obstruction from either stones and fecal matter - Noncontrast CT 12/14 unchanged nonobstructing left renal stone, 12/15 renal ultrasound none seen Assessment & Plan (12/14/2024 10:58 AM CDT): - 07/06 R ureteral stent placement for septic stone - 4/7 CT showed passage of R ureteral stone - 4/15 s/p cystoscopy, R ureteroscopy, R laser lithotripsy and R ureteral stent placement - 08/12 cystoscopy, L ureteroscopy, L stone extraction, L ureteral stent placement, L pyelogram - 5/8 bilateral ureteral stents removed - urology consulted on admission - Chronic mcclelland exchanged 10/30--> three way irrigation cath recommended by Urology 10/30. Changed 11/22 - mcclelland indication: obstruction from either stones and fecal matter Assessment & Plan (12/13/2024 1:19 PM CDT): - 07/06 R ureteral stent placement for septic stone - 07/28 CT showed passage of R ureteral stone - /15 s/p cystoscopy, R ureteroscopy, R laser lithotripsy and R ureteral stent placement - 08/12 cystoscopy, L ureteroscopy, L stone extraction, L ureteral stent placement, L pyelogram - 08/28 bilateral ureteral stents removed - urology consulted on admission - Chronic mcclelland exchanged 10/30--> three way irrigation cath recommended by Urology 10/30. Changed 11/22 - mcclelland indication: obstruction from either stones and fecal matter Assessment & Plan (12/12/2024 2:48 PM CDT): - 07/06 R ureteral stent placement for septic stone - 4/7 CT showed passage of R ureteral stone - /15 s/p cystoscopy, R ureteroscopy, R laser lithotripsy and R ureteral stent placement - 08/12 cystoscopy, L ureteroscopy, L stone extraction, L ureteral stent placement, L pyelogram - 5/ bilateral ureteral stents removed - urology consulted on admission - Chronic mcclelland exchanged 10/30--> three way irrigation cath recommended by Urology 10/30. Changed 11/22 - mcclelland indication: obstruction from either stones and fecal matter Assessment & Plan (12/11/2024 8:52 PM CDT): - 07/06 R ureteral stent placement for septic stone - 4/7 CT showed passage of R ureteral stone - 4/15 s/p cystoscopy, R ureteroscopy, R laser lithotripsy and R ureteral stent placement - 08/12 cystoscopy, L ureteroscopy, L stone extraction, L ureteral stent placement, L pyelogram - 5/8 bilateral ureteral stents removed - urology consulted on admission - Chronic mcclelland exchanged 10/30--> three way irrigation cath recommended by Urology 10/30. Changed 11/22 - mcclelland indication: obstruction from either stones and fecal matter Assessment & Plan (12/10/2024 8:41 AM CDT): - 07/06 R ureteral stent placement for septic stone - 07/28 CT showed passage of R ureteral stone - 4/15 s/p cystoscopy, R ureteroscopy, R laser lithotripsy and R ureteral stent placement - 08/12 cystoscopy, L ureteroscopy, L stone extraction, L ureteral stent placement, L pyelogram - 5 bilateral ureteral stents removed - urology consulted on admission - Chronic mcclelland exchanged 10/30--> three way irrigation cath recommended by Urology 10/30. Changed 11/22 - mcclelland indication: obstruction from either stones and fecal matter Assessment & Plan (12/09/2024 8:35 AM CDT): - 07/06 R ureteral stent placement for septic stone - 07/28 CT showed passage of R ureteral stone - /15 s/p cystoscopy, R ureteroscopy, R laser lithotripsy and R ureteral stent placement - 08/12 cystoscopy, L ureteroscopy, L stone extraction, L ureteral stent placement, L pyelogram - 8 bilateral ureteral stents removed - urology consulted on admission - Chronic mcclelland exchanged 10/30--> three way irrigation cath recommended by Urology 10/30. Changed 11/22 - mcclelland indication: obstruction from either stones and fecal matter Assessment & Plan (12/08/2024 2:09 PM CDT): - 07/06 R ureteral stent placement for septic stone - 07/28 CT showed passage of R ureteral stone - 4/15 s/p cystoscopy, R ureteroscopy, R laser lithotripsy and R ureteral stent placement - 08/12 cystoscopy, L ureteroscopy, L stone extraction, L ureteral stent placement, L pyelogram - 5/8 bilateral ureteral stents removed - urology consulted on admission - Chronic mcclelland exchanged 10/30--> three way irrigation cath recommended by Urology 10/30. Changed 11/22 - mcclelland indication: obstruction from either stones and fecal matter Assessment & Plan (12/07/2024 1:18 PM CDT): - 07/06 R ureteral stent placement for septic stone - 07/28 CT showed passage of R ureteral stone - /15 s/p cystoscopy, R ureteroscopy, R laser lithotripsy and R ureteral stent placement - 08/12 cystoscopy, L ureteroscopy, L stone extraction, L ureteral stent placement, L pyelogram - 5 bilateral ureteral stents removed - urology consulted on admission - Chronic mcclelland exchanged 10/30--> three way irrigation cath recommended by Urology 10/30. Changed 11/22 - mcclelland indication: obstruction from either stones and fecal matter Assessment & Plan (12/06/2024 2:19 PM CDT): - 07/06 R ureteral stent placement for septic stone - 07/28 CT showed passage of R ureteral stone - 15 s/p cystoscopy, R ureteroscopy, R laser lithotripsy and R ureteral stent placement - 08/12 cystoscopy, L ureteroscopy, L stone extraction, L ureteral stent placement, L pyelogram - 5/8 bilateral ureteral stents removed - urology consulted on admission - Chronic mcclelland exchanged 10/30--> three way irrigation cath recommended by Urology 10/30. Changed 11/22 - mcclelland indication: obstruction from either stones and fecal matter Assessment & Plan (12/05/2024 4:47 PM CDT): - 07/06 R ureteral stent placement for septic stone - 07/28 CT showed passage of R ureteral stone - /15 s/p cystoscopy, R ureteroscopy, R laser lithotripsy and R ureteral stent placement - 08/12 cystoscopy, L ureteroscopy, L stone extraction, L ureteral stent placement, L pyelogram - 5/8 bilateral ureteral stents removed - urology consulted on admission - Chronic mcclelland exchanged 10/30--> three way irrigation cath recommended by Urology 10/30. Changed 11/22 - mcclelland indication: obstruction from either stones and fecal matter Assessment & Plan (12/04/2024 2:08 PM CDT): - 07/06 R ureteral stent placement for septic stone - 4 CT showed passage of R ureteral stone - 4/15 s/p cystoscopy, R ureteroscopy, R laser lithotripsy and R ureteral stent placement - 08/12 cystoscopy, L ureteroscopy, L stone extraction, L ureteral stent placement, L pyelogram - 5/8 bilateral ureteral stents removed - urology consulted on admission - Chronic mcclelland exchanged 10/30--> three way irrigation cath recommended by Urology 10/30. Changed 11/22 - mcclelland indication: obstruction from either stones and fecal matter Assessment & Plan (12/03/2024 6:06 PM CDT): - 07/06 R ureteral stent placement for septic stone - 07/28 CT showed passage of R ureteral stone - /15 s/p cystoscopy, R ureteroscopy, R laser lithotripsy and R ureteral stent placement - 08/12 cystoscopy, L ureteroscopy, L stone extraction, L ureteral stent placement, L pyelogram - 5/8 bilateral ureteral stents removed - urology consulted on admission - Chronic mcclelland exchanged 10/30--> three way irrigation cath recommended by Urology 10/30. Changed 11/22 - mcclelland indication: obstruction from either stones and fecal matter Assessment & Plan (12/02/2024 2:26 PM CDT): - 07/06 R ureteral stent placement for septic stone - 07/28 CT showed passage of R ureteral stone - /15 s/p cystoscopy, R ureteroscopy, R laser lithotripsy and R ureteral stent placement - 08/12 cystoscopy, L ureteroscopy, L stone extraction, L ureteral stent placement, L pyelogram - 5/8 bilateral ureteral stents removed - urology consulted on admission - Chronic mcclelland exchanged 10/30--> three way irrigation cath recommended by Urology 10/30. Changed 11/22 Assessment & Plan (12/01/2024 9:54 AM CDT): - 07/06 R ureteral stent placement for septic stone - 4 CT showed passage of R ureteral stone - 4/15 s/p cystoscopy, R ureteroscopy, R laser lithotripsy and R ureteral stent placement - 08/12 cystoscopy, L ureteroscopy, L stone extraction, L ureteral stent placement, L pyelogram - 08/28 bilateral ureteral stents removed - urology consulted on admission - Chronic mcclelland exchanged 10/30--> three way irrigation cath recommended by Urology 10/30. Changed 11/22 Assessment & Plan (11/30/2024 1:01 PM CDT): - 07/06 R ureteral stent placement for septic stone - 07/28 CT showed passage of R ureteral stone - /15 s/p cystoscopy, R ureteroscopy, R laser lithotripsy and R ureteral stent placement - 08/12 cystoscopy, L ureteroscopy, L stone extraction, L ureteral stent placement, L pyelogram - 08/28 bilateral ureteral stents removed - urology consulted on admission - Chronic mcclelland exchanged 10/30--> three way irrigation cath recommended by Urology 10/30. Changed 11/22 Assessment & Plan (11/29/2024 11:20 AM CDT): - 07/06 R ureteral stent placement for septic stone - 07/28 CT showed passage of R ureteral stone - /15 s/p cystoscopy, R ureteroscopy, R laser lithotripsy and R ureteral stent placement - 08/12 cystoscopy, L ureteroscopy, L stone extraction, L ureteral stent placement, L pyelogram - 08/28 bilateral ureteral stents removed - urology consulted on admission - Chronic mcclelland exchanged 10/30--> three way irrigation cath recommended by Urology 10/30. Changed 11/22 Assessment & Plan (11/28/2024 1:42 PM CDT): - 07/06 R ureteral stent placement for septic stone - 47 CT showed passage of R ureteral stone - 4/15 s/p cystoscopy, R ureteroscopy, R laser lithotripsy and R ureteral stent placement - 08/12 cystoscopy, L ureteroscopy, L stone extraction, L ureteral stent placement, L pyelogram - 5/8 bilateral ureteral stents removed - urology consulted on admission - Chronic mcclelland exchanged 10/30--> three way irrigation cath recommended by Urology 10/30. Changed 11/22 Assessment & Plan (11/27/2024 10:16 AM CDT): - 07/06 R ureteral stent placement for septic stone - 07/28 CT showed passage of R ureteral stone - /15 s/p cystoscopy, R ureteroscopy, R laser lithotripsy and R ureteral stent placement - 08/12 cystoscopy, L ureteroscopy, L stone extraction, L ureteral stent placement, L pyelogram - 08/28 bilateral ureteral stents removed - urology consulted on admission - Chronic mcclelland exchanged 10/30--> three way irrigation cath recommended by Urology 10/30. Changed 11/22 Assessment & Plan (11/26/2024 12:13 PM CDT): - 07/06 R ureteral stent placement for septic stone - 07/28 CT showed passage of R ureteral stone - 15 s/p cystoscopy, R ureteroscopy, R laser lithotripsy and R ureteral stent placement - 08/12 cystoscopy, L ureteroscopy, L stone extraction, L ureteral stent placement, L pyelogram - 08/28 bilateral ureteral stents removed - urology consulted on admission - Chronic mcclelland exchanged 10/30--> three way irrigation cath recommended by Urology 10/30. Changed 11/22 Assessment & Plan (11/25/2024 3:35 PM CDT): - 07/06 R ureteral stent placement for septic stone - 07/28 CT showed passage of R ureteral stone - /15 s/p cystoscopy, R ureteroscopy, R laser lithotripsy and R ureteral stent placement - 08/12 cystoscopy, L ureteroscopy, L stone extraction, L ureteral stent placement, L pyelogram - 08/28 bilateral ureteral stents removed - urology consulted on admission - Chronic mcclelland exchanged 10/30--> three way irrigation cath recommended by Urology 10/30. Changed 11/22 Assessment & Plan (11/24/2024 8:49 AM CDT): - 07/06 R ureteral stent placement for septic stone - 07/28 CT showed passage of R ureteral stone - /15 s/p cystoscopy, R ureteroscopy, R laser lithotripsy and R ureteral stent placement - 08/12 cystoscopy, L ureteroscopy, L stone extraction, L ureteral stent placement, L pyelogram - 5/8 bilateral ureteral stents removed - urology consulted on admission - Chronic mcclelland exchanged 10/30--> three way irrigation cath recommended by Urology 10/30 Changed 11/22 Assessment & Plan (11/23/2024 1:10 PM CDT): - 07/06 R ureteral stent placement for septic stone - 07/28 CT showed passage of R ureteral stone - 15 s/p cystoscopy, R ureteroscopy, R laser lithotripsy and R ureteral stent placement - 08/12 cystoscopy, L ureteroscopy, L stone extraction, L ureteral stent placement, L pyelogram - 8 bilateral ureteral stents removed - urology consulted on admission - Chronic mcclelland exchanged 10/30--> three way irrigation cath recommended by Urology 10/30 Changed 11/22 Assessment & Plan (11/22/2024 7:23 PM CDT): - 07/06 R ureteral stent placement for septic stone - 07/28 CT showed passage of R ureteral stone - 15 s/p cystoscopy, R ureteroscopy, R laser lithotripsy and R ureteral stent placement - 08/12 cystoscopy, L ureteroscopy, L stone extraction, L ureteral stent placement, L pyelogram - 8 bilateral ureteral stents removed - urology consulted on admission - Chronic mcclelland exchanged 10/30--> three way irrigation cath recommended by Urology 10/30 Changed 11/22 Assessment & Plan (11/21/2024 3:38 PM CDT): - 07/06 R ureteral stent placement for septic stone - 07/28 CT showed passage of R ureteral stone - /15 s/p cystoscopy, R ureteroscopy, R laser lithotripsy and R ureteral stent placement - 08/12 cystoscopy, L ureteroscopy, L stone extraction, L ureteral stent placement, L pyelogram - 58 bilateral ureteral stents removed - urology consulted on admission - Chronic mcclelland exchanged 10/30--> three way irrigation cath recommended by Urology 10/30 Assessment & Plan (11/20/2024 3:42 PM CDT): - 07/06 R ureteral stent placement for septic stone - 4 CT showed passage of R ureteral stone - 4/15 s/p cystoscopy, R ureteroscopy, R laser lithotripsy and R ureteral stent placement - 08/12 cystoscopy, L ureteroscopy, L stone extraction, L ureteral stent placement, L pyelogram - 8 bilateral ureteral stents removed - urology consulted on admission - mcclelland exchanged 10/30--> three way irrigation cath recommended by Urology 10/30 Assessment & Plan (11/19/2024 12:57 PM CDT): - 07/06 R ureteral stent placement for septic stone - 07/28 CT showed passage of R ureteral stone - /15 s/p cystoscopy, R ureteroscopy, R laser lithotripsy and R ureteral stent placement - 08/12 cystoscopy, L ureteroscopy, L stone extraction, L ureteral stent placement, L pyelogram - 08/28 bilateral ureteral stents removed - urology consulted on admission - mcclelland exchanged 10/30 Assessment & Plan (11/18/2024 6:00 PM CDT): - 07/06 R ureteral stent placement for septic stone - 07/28 CT showed passage of R ureteral stone - /15 s/p cystoscopy, R ureteroscopy, R laser lithotripsy and R ureteral stent placement - 08/12 cystoscopy, L ureteroscopy, L stone extraction, L ureteral stent placement, L pyelogram - 8 bilateral ureteral stents removed - urology consulted on admission - mcclelland exchanged 10/30 Assessment & Plan (11/11/2024 3:08 PM CDT): H/o nephrolithiasis s/p ureterual stents. B/l stones passed and Bilateral ureteral stents removed at bedside on 08/28/24 Urology consulted in ED, mcclelland catheter changed by medical staff 10/30 -no further workup needed Assessment & Plan (11/10/2024 7:55 AM CDT): H/o nephrolithiasis s/p ureterual stents. B/l stones passed and Bilateral ureteral stents removed at bedside on 08/28/24 Urology consulted in ED, mcclelland catheter changed by medical staff 10/30 -no further workup needed Assessment & Plan (11/09/2024 7:26 AM CDT): H/o nephrolithiasis s/p ureterual stents. B/l stones passed and Bilateral ureteral stents removed at bedside on 08/28/24 Urology consulted in ED, mcclelland catheter changed by medical staff 10/30 -no further workup needed Assessment & Plan (11/08/2024 8:50 AM CDT): H/o nephrolithiasis s/p ureterual stents. B/l stones passed and Bilateral ureteral stents removed at bedside on 08/28/24 Urology consulted in ED, mcclelland catheter changed by medical staff 10/30 -no further workup needed Assessment & Plan (11/07/2024 7:56 AM CDT): H/o nephrolithiasis s/p ureterual stents. B/l stones passed and Bilateral ureteral stents removed at bedside on 08/28/24 Urology consulted in ED, mcclelland catheter changed by medical staff 10/30 -no further workup needed Assessment & Plan (11/06/2024 9:12 AM CDT): H/o nephrolithiasis s/p ureterual stents. B/l stones passed and Bilateral ureteral stents removed at bedside on 08/28/24 Urology consulted in ED, mcclelland catheter changed by medical staff 10/30 -no further workup needed Assessment & Plan (11/05/2024 7:22 AM CDT): H/o nephrolithiasis s/p ureterual stents. B/l stones passed and Bilateral ureteral stents removed at bedside on 08/28/24 Urology consulted in ED, mcclelland catheter changed by medical staff 10/30 -no further workup needed Assessment & Plan (11/04/2024 5:53 PM CDT): H/o nephrolithiasis s/p ureterual stents. B/l stones passed and Bilateral ureteral stents removed at bedside on 08/28/24 Urology consulted in ED, mcclelland catheter changed by medical staff 10/30 -no further workup needed Assessment & Plan (11/03/2024 8:03 AM CDT): #hx of nephrolithiasis s/p ureterual stents. B/l stones passed and Bilateral ureteral stents removed at bedside on 08/28/24 Urology consulted in ED, mcclelland catheter changed by medical staff 10/30 -no further workup needed Assessment & Plan (11/02/2024 7:50 AM CDT): #hx of nephrolithiasis s/p ureterual stents. B/l stones passed and Bilateral ureteral stents removed at bedside on 08/28/24 Urology consulted in ED, mcclelland catheter changed by medical staff 10/30 -no further workup needed Assessment & Plan (11/01/2024 11:36 AM CDT): #hx of nephrolithiasis s/p ureterual stents. B/l stones passed and Bilateral ureteral stents removed at bedside on 08/28/24 Urology consulted in ED, mcclelland catheter changed by medical staff 10/30 -no further workup needed Assessment & Plan (10/31/2024 5:01 PM CDT): #hx of nephrolithiasis s/p ureterual setnt Urology consulted in ED, mcclelland catheter changed 10/30 Assessment & Plan (08/12/2024 7:50 AM CDT): Was being planned for OR on 07/31 for stone retrieval, however given chills OR deferred as she is at risk for decompensation. - Now planned for OR again on 08/05. Assessment & Plan (08/07/2024 2:44 PM CDT): Was being planned for OR on 07/31 for stone retrieval, however given chills OR deferred as she is at risk for decompensation. - Now planned for OR again on 08/05. Assessment & Plan (08/06/2024 12:37 PM CDT): Was being planned for OR on 07/31 for stone retrieval, however given chills OR deferred as she is at risk for decompensation. - Now planned for OR again on 08/05. Assessment & Plan (08/04/2024 2:33 PM CDT): Was being planned for OR on 07/31 for stone retrieval, however given chills OR deferred as she is at risk for decompensation. - Now planned for OR again on 08/05. Assessment & Plan (08/03/2024 8:32 AM CDT): - Was being planned for OR on 07/31 for stone retrieval, however given chills OR deferred as she is at risk for decompensation. - Optimization as above. - Will reach out to urology for repeat OR planning Assessment & Plan (08/02/2024 9:22 AM CDT): - Was being planned for OR on 07/31 for stone retrieval, however given chills OR deferred as she is at risk for decompensation. - Optimization as above. - Will reach out to urology for repeat OR planning Assessment & Plan (08/01/2024 12:29 PM CDT): - Was being planned for OR on 07/31 for stone retrieval, however given chills OR deferred as she is at risk for decompensation. - Optimization as above. Assessment & Plan (07/31/2024 12:03 PM CDT): - Was being planned for OR on 07/31 for stone retrieval, however given chills OR deferred as she is at risk for decompensation. - Optimization as above. Assessment & Plan (07/30/2024 12:46 PM CDT): - Was being planned for OR on 07/31 for stone retrieval, however given chills OR deferred as she is at risk for decompensation. - Optimization as above. Assessment & Plan (07/29/2024 12:35 PM CDT): - OR on 07/31 for stone retrieval, no plans for left sided stone retrieval per urology Kidney stone 06/17/2024 Assessment & Plan (06/18/2024 8:32 PM CHEF): Bilateral small kidney stones, though L-sided staghorn calculi. - urology c/s: favor outpatient management after fistula repair as concern their interventions could cause inflammation around fistula. 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 Admitted on 10/30 iso fever, N/V, increasing abdominal pain. Has been hospitalized 3x since June for similar issues. 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 09/14-09/29: presented for abdominal pain, CT showed sequela of colocolonic fistulae 2/2 complicated diverticulitis. 10/06-10/22 presented for n/v, CT showed acute on chronic diverticulitis with increased inflammation around bladder and sigmoid colon. Imaging this admission: CT abdomen (10/30) showed no new changes. No acute diverticulitis. Given that CRS (10/15) note mentioned that intervention would not be possible during a diverticulitis flare, GI consulted to bill. EGD/ [place] done on 11/03. EGD unremarkable, colonoscopy showed moderate diverticulosis, extrinsic colonic narrowing a/w diverticular opening (fistula not seen). Exam was otherwise normal. Okay to proceed with CRS surgery per GI. Work-up: -UA with 3+ leukocyte esterase, 4+ bacteria. Last urine culture 09/25 showed enterococcus faecium only susceptible to linezolid -CT bilateral femur: no abscess or osteoarthritis. -Urine cx contaminated -10/31 blood cx NGTD Plan: - Planned for CRS interventions sigmoidectomy + colovesicular fistula taken down with primary anastomosis to reduce significant morbidity anticipated with end colostomy vs emergent sigmoidectomy and end colostomy without option for reversal for an extended period of time and until significant weight loss achieved. > Patient will be transferred to CRS care post op. -ID following, recs appreciated -Pain regimen: tylenol 1 g tid scheduled, oxycodone, dilaudid. Also has home gabapentin, oxybutynin, topamax, robaxin continued. Pain management consulted, per their recommendation, adjusted robaxin and gabapentin dosage. Pain team had added amitriptyline which was discontinued on 11/07 for risk of serotonin syndrome w simultaneous use of escitalopram, amitriptyline and linezolid. -Continue TPN due to stool frequently blocking mcclelland during previous hospital stay. Clear liquid diet. -Mcclelland changed 10/30; if repeat UA/ UCx needed will need to be switched to obtain sample. - Increasing acidosis noted on labs as of 11/08, will hold sodium thiosulfate, sepsis workup unrevealing and pt continues to be stable at this time. Bicarb stable as well, resumed sodium thiosulfate post-OP. 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 Admitted on 10/30 iso fever, N/V, increasing abdominal pain. Has been hospitalized 3x since June for similar issues. 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 09/14-09/29: presented for abdominal pain, CT showed sequela of colocolonic fistulae 2/2 complicated diverticulitis. 10/06-10/22 presented for n/v, CT showed acute on chronic diverticulitis with increased inflammation around bladder and sigmoid colon. Imaging this admission: CT abdomen (10/30) showed no new changes. No acute diverticulitis. Given that CRS (10/15) note mentioned that intervention would not be possible during a diverticulitis flare, GI consulted to bill. EGD/ [place] done on 11/03. EGD unremarkable, colonoscopy showed moderate diverticulosis, extrinsic colonic narrowing a/w diverticular opening (fistula not seen). Exam was otherwise normal. Okay to proceed with CRS surgery per GI. Work-up: -UA with 3+ leukocyte esterase, 4+ bacteria. Last urine culture 09/25 showed enterococcus faecium only susceptible to linezolid -CT bilateral femur: no abscess or osteoarthritis. -Urine cx contaminated -10/31 blood cx NGTD Plan: - Planned for CRS interventions sigmoidectomy + colovesicular fistula taken down with primary anastomosis to reduce significant morbidity anticipated with end colostomy vs emergent sigmoidectomy and end colostomy without option for reversal for an extended period of time and until significant weight loss achieved. > Patient will be transferred to CRS care post op. -ID following, recs appreciated -Pain regimen: tylenol 1 g tid scheduled, oxycodone, dilaudid. Also has home gabapentin, oxybutynin, topamax, robaxin continued. Pain management consulted, per their recommendation, adjusted robaxin and gabapentin dosage. Pain team had added amitriptyline which was discontinued on 11/07 for risk of serotonin syndrome w simultaneous use of escitalopram, amitriptyline and linezolid. -Continue TPN due to stool frequently blocking mcclelland during previous hospital stay. Clear liquid diet. -Mcclelland changed 10/30; if repeat UA/ UCx needed will need to be switched to obtain sample. - Increasing acidosis noted on labs as of 11/08, will hold sodium thiosulfate, sepsis workup unrevealing and pt continues to be stable at this time. Bicarb stable as well, resumed sodium thiosulfate post-OP. 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 Admitted on 10/30 iso fever, N/V, increasing abdominal pain. Has been hospitalized 3x since June for similar issues. 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 09/14-09/29: presented for abdominal pain, CT showed sequela of colocolonic fistulae 2/2 complicated diverticulitis. 10/06-10/22 presented for n/v, CT showed acute on chronic diverticulitis with increased inflammation around bladder and sigmoid colon. Imaging this admission: CT abdomen (10/30) showed no new changes. No acute diverticulitis. Given that CRS (10/15) note mentioned that intervention would not be possible during a diverticulitis flare, GI consulted to bill. EGD/ [place] done on 11/03. EGD unremarkable, colonoscopy showed moderate diverticulosis, extrinsic colonic narrowing a/w diverticular opening (fistula not seen). Exam was otherwise normal. Okay to proceed with CRS surgery per GI. Work-up: -UA with 3+ leukocyte esterase, 4+ bacteria. Last urine culture 09/25 showed enterococcus faecium only susceptible to linezolid -CT bilateral femur: no abscess or osteoarthritis. -Urine cx contaminated -10/31 blood cx NGTD Plan: - Planned for CRS interventions sigmoidectomy + colovesicular fistula taken down with primary anastomosis to reduce significant morbidity anticipated with end colostomy vs emergent sigmoidectomy and end colostomy without option for reversal for an extended period of time and until significant weight loss achieved. > Patient will be transferred to CRS care post op. -ID following, recs appreciated -Pain regimen: tylenol 1 g tid scheduled, oxycodone, dilaudid. Also has home gabapentin, oxybutynin, topamax, robaxin continued. Pain management consulted, per their recommendation, adjusted robaxin and gabapentin dosage. Pain team had added amitriptyline which was discontinued on 11/07 for risk of serotonin syndrome w simultaneous use of escitalopram, amitriptyline and linezolid. -Continue TPN due to stool frequently blocking mcclelland during previous hospital stay. Clear liquid diet. -Mcclelland changed 10/30; if repeat UA/ UCx needed will need to be switched to obtain sample. - Increasing acidosis noted on labs as of 11/08, will hold sodium thiosulfate, sepsis workup unrevealing and pt continues to be stable at this time. Bicarb stable as well, will CTM and plan to resume sodium thiosulfate post-OP. 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 Admitted on 10/30 iso fever, N/V, increasing abdominal pain. Has been hospitalized 3x since June for similar issues. 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 09/14-09/29: presented for abdominal pain, CT showed sequela of colocolonic fistulae 2/2 complicated diverticulitis. 10/06-10/22 presented for n/v, CT showed acute on chronic diverticulitis with increased inflammation around bladder and sigmoid colon. Imaging this admission: CT abdomen (10/30) showed no new changes. No acute diverticulitis. Given that CRS (10/15) note mentioned that intervention would not be possible during a diverticulitis flare, GI consulted to bill. EGD/ [place] done on 11/03. EGD unremarkable, colonoscopy showed moderate diverticulosis, extrinsic colonic narrowing a/w diverticular opening (fistula not seen). Exam was otherwise normal. Okay to proceed with CRS surgery per GI. Work-up: -UA with 3+ leukocyte esterase, 4+ bacteria. Last urine culture 09/25 showed enterococcus faecium only susceptible to linezolid -CT bilateral femur: no abscess or osteoarthritis. -Urine cx contaminated -10/31 blood cx NGTD Plan: - Planned for CRS interventions sigmoidectomy + colovesicular fistula taken down with primary anastomosis to reduce significant morbidity anticipated with end colostomy vs emergent sigmoidectomy and end colostomy without option for reversal for an extended period of time and until significant weight loss achieved. > Patient will be transferred to CRS care post op. -ID following, recs appreciated -Pain regimen: tylenol 1 g tid scheduled, oxycodone, dilaudid. Also has home gabapentin, oxybutynin, topamax, robaxin continued. Pain management consulted, per their recommendation, adjusted robaxin and gabapentin dosage. Pain team had added amitriptyline which was discontinued on 11/07 for risk of serotonin syndrome w simultaneous use of escitalopram, amitriptyline and linezolid. -Continue TPN due to stool frequently blocking mcclelland during previous hospital stay. Clear liquid diet. -Mcclelland changed 10/30; if repeat UA/ UCx needed will need to be switched to obtain sample. - Increasing acidosis noted on labs as of 11/08, will hold sodium thiosulfate, sepsis workup unrevealing and pt continues to be stable at this time. Bicarb stable as well, will CTM and plan to resume sodium thiosulfate post-OP. 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 Admitted on 10/30 iso fever, N/V, increasing abdominal pain. Has been hospitalized 3x since June for similar issues. 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 09/14-09/29: presented for abdominal pain, CT showed sequela of colocolonic fistulae 2/2 complicated diverticulitis. 10/06-10/22 presented for n/v, CT showed acute on chronic diverticulitis with increased inflammation around bladder and sigmoid colon. Imaging this admission: CT abdomen (10/30) showed no new changes. No acute diverticulitis. Given that CRS (10/15) note mentioned that intervention would not be possible during a diverticulitis flare, GI consulted to bill. EGD/ [place] done on 11/03. EGD unremarkable, colonoscopy showed moderate diverticulosis, extrinsic colonic narrowing a/w diverticular opening (fistula not seen). Exam was otherwise normal. Okay to proceed with CRS surgery per GI. Work-up: -UA with 3+ leukocyte esterase, 4+ bacteria. Last urine culture 09/25 showed enterococcus faecium only susceptible to linezolid -CT bilateral femur: no abscess or osteoarthritis. -Urine cx contaminated -10/31 blood cx NGTD Plan: - Planned for CRS interventions sigmoidectomy + colovesicular fistula taken down with primary anastomosis to reduce significant morbidity anticipated with end colostomy vs emergent sigmoidectomy and end colostomy without option for reversal for an extended period of time and until significant weight loss achieved. > Patient will be transferred to CRS care post op. -ID following, recs appreciated -Pain regimen: tylenol 1 g tid scheduled, oxycodone, dilaudid. Also has home gabapentin, oxybutynin, topamax, robaxin continued. Pain management consulted, per their recommendation, adjusted robaxin and gabapentin dosage. Pain team had added amitriptyline which was discontinued on 11/07 for risk of serotonin syndrome w simultaneous use of escitalopram, amitriptyline and linezolid. -Continue TPN due to stool frequently blocking mcclelland during previous hospital stay. Clear liquid diet. -Mcclelland changed 10/30; if repeat UA/ UCx needed will need to be switched to obtain sample. - Increasing acidosis noted on labs as of 11/08, will hold sodium thiosulfate, sepsis workup unrevealing and pt continues to be stable at this time. Bicarb stable as well, will CTM and plan to resume sodium thiosulfate post-OP. 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 Admitted on 10/30 iso fever, N/V, increasing abdominal pain. Has been hospitalized 3x since June for similar issues. 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 09/14-09/29: presented for abdominal pain, CT showed sequela of colocolonic fistulae 2/2 complicated diverticulitis. 10/06-10/22 presented for n/v, CT showed acute on chronic diverticulitis with increased inflammation around bladder and sigmoid colon. Imaging this admission: CT abdomen (10/30) showed no new changes. No acute diverticulitis. Given that CRS (10/15) note mentioned that intervention would not be possible during a diverticulitis flare, GI consulted to bill. EGD/ [place] done on 11/03. EGD unremarkable, colonoscopy showed moderate diverticulosis, extrinsic colonic narrowing a/w diverticular opening (fistula not seen). Exam was otherwise normal. Okay to proceed with CRS surgery per GI. Work-up: -UA with 3+ leukocyte esterase, 4+ bacteria. Last urine culture 09/25 showed enterococcus faecium only susceptible to linezolid -CT bilateral femur: no abscess or osteoarthritis. -Urine cx contaminated -10/31 blood cx NGTD Abx: S/p Augmentin (10/30-10/21); Unasyn IV (11/01- 11/05); zosyn 4.5mg IV (11/05- present) + linezolid IV (was home med-present) Plan: - Planned for CRS interventions sigmoidectomy + colovesicular fistula taken down with primary anastomosis to reduce significant morbidity anticipated with end colostomy vs emergent sigmoidectomy and end colostomy without option for reversal for an extended period of time and until significant weight loss achieved. > Patient will be transferred to CRS care post op. -ID following, recs appreciated -Pain regimen: tylenol 1 g tid scheduled, oxycodone, dilaudid. Also has home gabapentin, oxybutynin, topamax, robaxin continued. Pain management consulted, per their recommendation, adjusted robaxin and gabapentin dosage. Pain team had added amitriptyline which was discontinued on 11/07 for risk of serotonin syndrome w simultaneous use of escitalopram, amitriptyline and linezolid. -Continue TPN due to stool frequently blocking mcclelland during previous hospital stay. Clear liquid diet. -Mcclelland changed 10/30; if repeat UA/ UCx needed will need to be switched to obtain sample. - Increasing acidosis noted on labs as of 11/08, will hold sodium thiosulfate, sepsis workup unrevealing and pt continues to be stable at this time. Bicarb stable as well, will CTM and plan to resume sodium thiosulfate post-OP. 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 Admitted on 10/30 iso fever, N/V, increasing abdominal pain. Has been hospitalized 3x since June for similar issues. 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 09/14-09/29: presented for abdominal pain, CT showed sequela of colocolonic fistulae 2/2 complicated diverticulitis. 10/06-10/22 presented for n/v, CT showed acute on chronic diverticulitis with increased inflammation around bladder and sigmoid colon. Imaging this admission: CT abdomen (10/30) showed no new changes. No acute diverticulitis. Given that CRS (10/15) note mentioned that intervention would not be possible during a diverticulitis flare, GI consulted to bill. EGD/ [place] done on 11/03. EGD unremarkable, colonoscopy showed moderate diverticulosis, extrinsic colonic narrowing a/w diverticular opening (fistula not seen). Exam was otherwise normal. Okay to proceed with CRS surgery per GI. Work-up: -UA with 3+ leukocyte esterase, 4+ bacteria. Last urine culture 09/25 showed enterococcus faecium only susceptible to linezolid -CT bilateral femur: no abscess or osteoarthritis. -Urine cx contaminated -10/31 blood cx NGTD Abx: S/p Augmentin (10/30-10/21); Unasyn IV (11/01- 11/05); zosyn 4.5mg IV (11/05- present) + linezolid IV (was home med-present) Plan: - Planned for CRS interventions today sigmoidectomy + colovesicular fistula taken down with primary anastomosis to reduce significant morbidity anticipated with end colostomy vs emergent sigmoidectomy and end colostomy without option for reversal for an extended period of time and until significant weight loss achieved. > Patient will be transferred to CRS care post op. -ID following, recs appreciated -Pain regimen: tylenol 1 g tid scheduled, oxycodone, dilaudid. Also has home gabapentin, oxybutynin, topamax, robaxin continued. Pain management consulted, per their recommendation, adjusted robaxin and gabapentin dosage. Pain team had added amitriptyline which was discontinued on 11/07 for risk of serotonin syndrome w simultaneous use of escitalopram, amitriptyline and linezolid. -Continue TPN due to stool frequently blocking mcclelland during previous hospital stay. Clear liquid diet. -Mcclelland changed 10/30; if repeat UA/ UCx needed will need to be switched to obtain sample. - Increasing acidosis noted on labs as of 11/08, will hold sodium thiosulfate, sepsis workup unrevealing and pt continues to be stable at this time. Bicarb stable as well, will CTM and plan to resume sodium thiosulfate post-OP. 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 Admitted on 10/30 iso fever, N/V, increasing abdominal pain. Has been hospitalized 3x since June for similar issues. 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 09/14-09/29: presented for abdominal pain, CT showed sequela of colocolonic fistulae 2/2 complicated diverticulitis. 10/06-10/22 presented for n/v, CT showed acute on chronic diverticulitis with increased inflammation around bladder and sigmoid colon. Imaging this admission: CT abdomen (10/30) showed no new changes. No acute diverticulitis. Given that CRS (10/15) note mentioned that intervention would not be possible during a diverticulitis flare, GI consulted to bill. EGD/ [place] done on 11/03. EGD unremarkable, colonoscopy showed moderate diverticulosis, extrinsic colonic narrowing a/w diverticular opening (fistula not seen). Exam was otherwise normal. Okay to proceed with CRS surgery per GI. Potential CRS interventions: sigmoidectomy + colovesicular fistula taken down with primary anastomosis to reduce significant morbidity anticipated with end colostomy vs emergent sigmoidectomy and end colostomy without option for reversal for an extended period of time and until significant weight loss achieved. Since prior admit, pt has achieved ~100 lb weight loss. CRS re-engaged this admit. Work-up: -UA with 3+ leukocyte esterase, 4+ bacteria. Last urine culture 09/25 showed enterococcus faecium only susceptible to linezolid -CT bilateral femur: no abscess or osteoarthritis. -Urine cx contaminated -10/31 blood cx NGTD Abx: S/p Augmentin (10/30-10/21); Unasyn IV (11/01- 11/05); zosyn 4.5mg IV (11/05- present) + linezolid IV (was home med-present) Plan: -CRS planning for surgery on 11/11; NPO after MN on 11/11; will continue CLD and TPN until the night prior to sx. TPN can continue till the day of. Continue abx as above. Consulted inpatient anesthesia and wound ostomy for ostomy site marking per their request. PreOP abx ordered by CRS. -ID following, recs appreciated -Pain regimen: tylenol 1 g tid scheduled, oxycodone, dilaudid. Also has home gabapentin, oxybutynin, topamax, robaxin continued. Pain management consulted, per their recommendation, adjusted robaxin and gabapentin dosage. Pain team had added amitriptyline which was discontinued on 11/07 for risk of serotonin syndrome w simultaneous use of escitalopram, amitriptyline and linezolid. -Continue TPN due to stool frequently blocking mcclelland during previous hospital stay. Clear liquid diet. -Mcclelland changed 10/30; if repeat UA/ UCx needed will need to be switched to obtain sample. - Increasing acidosis noted on labs as of 11/08, will hold sodium thiosulfate, sepsis workup unrevealing and pt continues to be stable at this time. Bicarb stable as well, will CTM and plan to resume sodium thiosulfate post-OP. 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 Admitted on 10/30 iso fever, N/V, increasing abdominal pain. Has been hospitalized 3x since June for similar issues. 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 09/14-09/29: presented for abdominal pain, CT showed sequela of colocolonic fistulae 2/2 complicated diverticulitis. 10/06-10/22 presented for n/v, CT showed acute on chronic diverticulitis with increased inflammation around bladder and sigmoid colon. Imaging this admission: CT abdomen (10/30) showed no new changes. No acute diverticulitis. Given that CRS (10/15) note mentioned that intervention would not be possible during a diverticulitis flare, GI consulted to bill. EGD/ [place] done on 11/03. EGD unremarkable, colonoscopy showed moderate diverticulosis, extrinsic colonic narrowing a/w diverticular opening (fistula not seen). Exam was otherwise normal. Okay to proceed with CRS surgery per GI. Potential CRS interventions: sigmoidectomy + colovesicular fistula taken down with primary anastomosis to reduce significant morbidity anticipated with end colostomy vs emergent sigmoidectomy and end colostomy without option for reversal for an extended period of time and until significant weight loss achieved. Since prior admit, pt has achieved ~100 lb weight loss. CRS re-engaged this admit. Work-up: -UA with 3+ leukocyte esterase, 4+ bacteria. Last urine culture 09/25 showed enterococcus faecium only susceptible to linezolid -CT bilateral femur: no abscess or osteoarthritis. -Urine cx contaminated -10/31 blood cx NGTD Abx: S/p Augmentin (10/30-10/21); Unasyn IV (11/01- 11/05); zosyn 4.5mg IV (11/05- present) + linezolid IV (was home med-present) Plan: -CRS planning for surgery on 11/11; NPO after MN on 11/11; will continue CLD and TPN until the night prior to sx. Continue abx as above. Consulted inpatient anesthesia and wound ostomy for ostomy site marking per their request. PreOP abx ordered by CRS. -ID following, recs appreciated -Pain regimen: tylenol 1 g tid scheduled, oxycodone, dilaudid. Also has home gabapentin, oxybutynin, topamax, robaxin continued. Pain management consulted, per their recommendation, adjusted robaxin and gabapentin dosage. Pain team had added amitriptyline which was discontinued on 11/07 for risk of serotonin syndrome w simultaneous use of escitalopram, amitriptyline and linezolid. -Continue TPN due to stool frequently blocking mcclelland during previous hospital stay. Clear liquid diet. -Mcclelland changed 10/30; if repeat UA/ UCx needed will need to be switched to obtain sample. - Increasing acidosis noted on labs as of 11/08, will hold sodium thiosulfate, sepsis workup unrevealing and pt continues to be stable at this time. Bicarb stable as well, will CTM and plan to resume sodium thiosulfate post-OP. 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 Admitted on 10/30 iso fever, N/V, increasing abdominal pain. Has been hospitalized 3x since June for similar issues. 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 09/14-09/29: presented for abdominal pain, CT showed sequela of colocolonic fistulae 2/2 complicated diverticulitis. 10/06-10/22 presented for n/v, CT showed acute on chronic diverticulitis with increased inflammation around bladder and sigmoid colon. Imaging this admission: CT abdomen (10/30) showed no new changes. No acute diverticulitis. Given that CRS (10/15) note mentioned that intervention would not be possible during a diverticulitis flare, GI consulted to bill. EGD/ [place] done on 11/03. EGD unremarkable, colonoscopy showed moderate diverticulosis, extrinsic colonic narrowing a/w diverticular opening (fistula not seen). Exam was otherwise normal. Okay to proceed with CRS surgery per GI. Potential CRS interventions: sigmoidectomy + colovesicular fistula taken down with primary anastomosis to reduce significant morbidity anticipated with end colostomy vs emergent sigmoidectomy and end colostomy without option for reversal for an extended period of time and until significant weight loss achieved. Since prior admit, pt has achieved ~100 lb weight loss. CRS re-engaged this admit. Work-up: -UA with 3+ leukocyte esterase, 4+ bacteria. Last urine culture 09/25 showed enterococcus faecium only susceptible to linezolid -CT bilateral femur: no abscess or osteoarthritis. -Urine cx contaminated -10/31 blood cx NGTD Abx: S/p Augmentin (10/30-10/21); Unasyn IV (11/01- 11/05); zosyn 4.5mg IV (11/05- present) + linezolid IV (was home med-present) Plan: -CRS planning for surgery on 11/11; NPO after MN on 11/11; will continue CLD and TPN until the night prior to sx. Continue abx as above. Consulted inpatient anesthesia and wound ostomy for ostomy site marking per their request. -ID following, recs appreciated -Pain regimen: tylenol 1 g tid scheduled, oxycodone, dilaudid. Also has home gabapentin, oxybutynin, topamax, robaxin continued. Pain management consulted, per their recommendation, adjusted robaxin and gabapentin dosage. Pain team had added amitriptyline which was discontinued on 11/07 for risk of serotonin syndrome w simultaneous use of escitalopram, amitriptyline and linezolid. -Continue TPN due to stool frequently blocking mcclelland during previous hospital stay. Clear liquid diet. -Mcclelland changed 10/30; if repeat UA/ UCx needed will need to be switched to obtain sample. - Increasing acidosis noted on labs as of 11/08, will discontinue sodium thiosulfate and pursue sepsis workup including BCx and RUQ US. 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 Admitted on 10/30 iso fever, N/V, increasing abdominal pain. Has been hospitalized 3x since June for similar issues. 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 09/14-09/29: presented for abdominal pain, CT showed sequela of colocolonic fistulae 2/2 complicated diverticulitis. 10/06-10/22 presented for n/v, CT showed acute on chronic diverticulitis with increased inflammation around bladder and sigmoid colon. Imaging this admission: CT abdomen (10/30) showed no new changes. No acute diverticulitis. Given that CRS (10/15) note mentioned that intervention would not be possible during a diverticulitis flare, GI consulted to bill. EGD/ [place] done on 11/03. EGD unremarkable, colonoscopy showed moderate diverticulosis, extrinsic colonic narrowing a/w diverticular opening (fistula not seen). Exam was otherwise normal. Okay to proceed with CRS surgery per GI. Potential CRS interventions: sigmoidectomy + colovesicular fistula taken down with primary anastomosis to reduce significant morbidity anticipated with end colostomy vs emergent sigmoidectomy and end colostomy without option for reversal for an extended period of time and until significant weight loss achieved. Since prior admit, pt has achieved ~100 lb weight loss. CRS re-engaged this admit. Work-up: -UA with 3+ leukocyte esterase, 4+ bacteria. Last urine culture 09/25 showed enterococcus faecium only susceptible to linezolid -CT bilateral femur: no abscess or osteoarthritis. -Urine cx contaminated -10/31 blood cx NGTD Abx: S/p Augmentin (10/30-10/21); Unasyn IV (11/01- 11/05); zosyn 4.5mg IV (11/05- present) + linezolid IV (was home med-present) Plan: -CRS planning for surgery on 11/11; NPO after MN on 11/11; will continue CLD and TPN until the night prior to sx. Continue abx as above. Consulted inpatient anesthesia and wound ostomy for ostomy site marking per their request. -ID following, recs appreciated -Pain regimen: tylenol 1 g tid scheduled, oxycodone, dilaudid. Also has home gabapentin, oxybutynin, topamax, robaxin continued. Pain management consulted, per their recommendation, adjusted robaxin and gabapentin dosage. Pain team had added amitriptyline which was discontinued on 11/07 for risk of serotonin syndrome w simultaneous use of escitalopram, amitriptyline and linezolid. -Continue TPN due to stool frequently blocking mcclelland during previous hospital stay. Clear liquid diet. -Mcclelland changed 10/30; if repeat UA/ UCx needed will need to be switched to obtain sample. 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 Admitted on 10/30 iso fever, N/V, increasing abdominal pain. Has been hospitalized 3x since June for similar issues. 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 09/14-09/29: presented for abdominal pain, CT showed sequela of colocolonic fistulae 2/2 complicated diverticulitis. 10/06-10/22 presented for n/v, CT showed acute on chronic diverticulitis with increased inflammation around bladder and sigmoid colon. Imaging this admission: CT abdomen (10/30) showed no new changes. No acute diverticulitis. Given that CRS (10/15) note mentioned that intervention would not be possible during a diverticulitis flare, GI consulted to bill. EGD/ [place] done on 11/03. EGD unremarkable, colonoscopy showed moderate diverticulosis, extrinsic colonic narrowing a/w diverticular opening (fistula not seen). Exam was otherwise normal. Okay to proceed with CRS surgery per GI. Potential CRS interventions: sigmoidectomy + colovesicular fistula taken down with primary anastomosis to reduce significant morbidity anticipated with end colostomy vs emergent sigmoidectomy and end colostomy without option for reversal for an extended period of time and until significant weight loss achieved. Since prior admit, pt has achieved ~100 lb weight loss. CRS re-engaged this admit. Work-up: -UA with 3+ leukocyte esterase, 4+ bacteria. Last urine culture 09/25 showed enterococcus faecium only susceptible to linezolid -CT bilateral femur: no abscess or osteoarthritis. -Urine cx contaminated -10/31 blood cx NGTD Abx: S/p Augmentin (10/30-10/21); Unasyn IV (11/01- 11/05); zosyn 4.5mg IV (11/05- present) + linezolid IV (was home med-present) Plan: -CRS planning for surgery on 11/11; NPO after MN on 11/11; will continue CLD and TPN until the night prior to sx. Continue abx as above. Consulted inpatient anesthesia and wound ostomy for ostomy site marking per their request. -ID following, recs appreciated -Pain regimen: tylenol 1 g tid scheduled, oxycodone, dilaudid. Also has home gabapentin, oxybutynin, topamax, robaxin continued. Pain management consulted today, appreciate reccs. -Continue TPN due to stool frequently blocking mcclelland during previous hospital stay. Clear liquid diet. -Mcclelland changed 10/30; if repeat UA/ UCx needed will need to be switched to obtain sample. 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 Admitted on 10/30 iso fever, N/V, increasing abdominal pain. Has been hospitalized 3x since June for similar issues. 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 09/14-09/29: presented for abdominal pain, CT showed sequela of colocolonic fistulae 2/2 complicated diverticulitis. 10/06-10/22 presented for n/v, CT showed acute on chronic diverticulitis with increased inflammation around bladder and sigmoid colon. Imaging this admission: CT abdomen (10/30) showed no new changes. No acute diverticulitis. Given that CRS (10/15) note mentioned that intervention would not be possible during a diverticulitis flare, GI consulted to bill. EGD/ [place] done on 11/03. EGD unremarkable, colonoscopy showed moderate diverticulosis, extrinsic colonic narrowing a/w diverticular opening (fistula not seen). Exam was otherwise normal. Okay to proceed with CRS surgery per GI. Potential CRS interventions: sigmoidectomy + colovesicular fistula taken down with primary anastomosis to reduce significant morbidity anticipated with end colostomy vs emergent sigmoidectomy and end colostomy without option for reversal for an extended period of time and until significant weight loss achieved. Since prior admit, pt has achieved ~100 lb weight loss. CRS re-engaged this admit. Work-up: -UA with 3+ leukocyte esterase, 4+ bacteria. Last urine culture 09/25 showed enterococcus faecium only susceptible to linezolid -CT bilateral femur: no abscess or osteoarthritis. -Urine cx contaminated -10/31 blood cx NGTD Abx: S/p Augmentin (10/30-10/21); Unasyn IV (11/01-present) + linezolid IV (was home med-present) Plan: -CRS planning for surgery on 11/11; NPO after MN on 11/11; will continue CLD and TPN until the night prior to sx. Continue abx as above. Consulted inpatient anesthesia and wound ostomy for ostomy site marking per their request. -ID following, recs appreciated -Pain regimen: tylenol 1 g tid scheduled, oxycodone, dilaudid. Also has home gabapentin, oxybutynin, topamax, robaxin continued. Pain management consulted today, appreciate reccs. -Continue TPN due to stool frequently blocking mcclelland during previous hospital stay. Clear liquid diet -Mcc[place] changed 10/30; if repeat UA/ UCx needed will need to be switched to obtain sample. 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 Admitted on 10/30 iso fever, N/V, increasing abdominal pain. Has been hospitalized 3x since June for similar issues. 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 09/14-09/29: presented for abdominal pain, CT showed sequela of colocolonic fistulae 2/2 complicated diverticulitis. 10/06-10/22 presented for n/v, CT showed acute on chronic diverticulitis with increased inflammation around bladder and sigmoid colon. Imaging this admission: CT abdomen (10/30) showed no new changes. No acute diverticulitis. Given that CRS (10/15) note mentioned that intervention would not be possible during a diverticulitis flare, GI consulted to bill. EGD/ [place] done on 11/03. EGD unremarkable, colonoscopy showed moderate diverticulosis, extrinsic colonic narrowing a/w diverticular opening (fistula not seen). Exam was otherwise normal. Okay to proceed with CRS surgery per GI. Potential CRS interventions: sigmoidectomy + colovesicular fistula taken down with primary anastomosis to reduce significant morbidity anticipated with end colostomy vs emergent sigmoidectomy and end colostomy without option for reversal for an extended period of time and until significant weight loss achieved. Since prior admit, pt has achieved ~100 lb weight loss. CRS re-engaged this admit. Work-up: -UA with 3+ leukocyte esterase, 4+ bacteria. Last urine culture 09/25 showed enterococcus faecium only susceptible to linezolid -CT bilateral femur: no abscess or osteoarthritis. -Urine cx contaminated -10/31 blood cx NGTD Abx: S/p Augmentin (10/30-10/21); Unasyn IV (11/01-present) + linezolid IV (was home med-present) Plan: -CRS planning for surgery on 11/11; NPO after MN on 11/11; will continue CLD and TPN until the night prior to sx. Continue abx as above. -ID following, recs appreciated -Pain regimen: tylenol 1 g tid scheduled, oxycodone, dilaudid. Also has home gabapentin, oxybutynin, topamax, robaxin continued. Pain management consulted today, appreciate reccs. -Continue TPN due to stool frequently blocking mcclelland during previous hospital stay. Clear liquid diet -M[place] changed 10/30; if repeat UA/ UCx needed will need to be switched to obtain sample. Assessment & Plan (11/03/2024 5:48 PM CDT): Presented with isolated fever, n/v at home along with increased pain in abdomen. Patient was hospitalized 3 times since June for similar issues. 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 09/14-09/29: presented for abdominal pain, CT showed sequela of colocolonic fistulae 2/2 complicated diverticulitis. 10/06-10/22 presented for n/v, CT showed acute on chronic diverticulitis with increased inflammation around bladder and sigmoid colon. This admission repeat CT did not show new findings but her symptoms are likely still associated with her ongoing GI/ issues. Per CRS note 10/15 from previous admission, patient has 2 options, one is sigmoidectomy + colovesicular fistula taken down with primary anastomosis to reduce significant morbidity anticipated with end colostomy. This option would not be feasible in the setting of acute diverticulitis flare. Alternative emergent operation would be sigmoidectomy and end colostomy without option for reversal for an extended period of time and until significant weight loss achieved. CT did not show new imaging evidence of diverticulitis flare, and patient has achieved significant weight loss, re-engaged CRS for continued discussion about surgical options. Work-up: -UA with 3+ leukocyte esterase, 4+ bacteria. Last urine culture 09/25 showed enterococcus faecium only susceptible to linezolid -CT C/A/P: Unchanged tethering of the sigmoid colon to the uterine fundus as well as the urinary bladder. 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 Unchanged findings of acute on chronic diverticulitis in the pelvis. -CT bilateral femur: no abscess or osteoarthritis. -Urine cx contaminated -10/31 blood cx NGTD -11/03 EGD: normal -11/03 colonoscopy: extrinsic stenosis of sigmoid colon, diverticulosis, diverticular opening, unable to view cecal area due to narrowing, otherwise normal colon. Recommended repeat colonoscopy after surgery for diverticular disease screening (given unable to clear cecal base of small polyps). Per GI, ok to proceed w/ colovesical fistula surgery. Antibiotics: -S/p Augmentin 10/30-10/31 -Continue Unasyn IV (11/01-present) + linezolid IV (was home med-present) Plan: -Colorectal surgery consulted. Will follow with plan for surgery to fix colovesicular fistula now pt is s/p colonoscopy for diverticulitis. -ID following, recs appreciated -Pain regimen: tylenol 1 g tid scheduled, oxycodone, dilaudid. Also has home gabapentin, oxybutynin, topamax, robaxin continued -Continue TPN due to stool frequently blocking mcclelland during previous hospital stay. Clear liquid diet -Mccle[place]and changed 10/30 Assessment & Plan (11/02/2024 12:58 PM CDT): Presented with isolated fever, n/v at home along with increased pain in abdomen. Patient was hospitalized 3 times since June for similar issues. 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 09/14-09/29: presented for abdominal pain, CT showed sequela of colocolonic fistulae 2/2 complicated diverticulitis. 10/06-10/22 presented for n/v, CT showed acute on chronic diverticulitis with increased inflammation around bladder and sigmoid colon. This admission repeat CT did not show new findings but her symptoms are likely still associated with her ongoing GI/ issues. Per CRS note 10/15 from previous admission, patient has 2 options, one is sigmoidectomy + colovesicular fistula taken down with primary anastomosis to reduce significant morbidity anticipated with end colostomy. This option would not be feasible in the setting of acute diverticulitis flare. Alternative emergent operation would be sigmoidectomy and end colostomy without option for reversal for an extended period of time and until significant weight loss achieved. Now given that it has been 3 weeks since patient's last encounter with CRS and CT did not show new imaging evidence of diverticulitis flare, and patient has achieved significant weight loss, would re-engage CRS for continued discussion about surgical options. Work-up: -UA with 3+ leukocyte esterase, 4+ bacteria. Last urine culture 09/25 showed enterococcus faecium only susceptible to linezolid -CT C/A/P: Unchanged tethering of the sigmoid colon to the uterine fundus as well as the urinary bladder. 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 Unchanged findings of acute on chronic diverticulitis in the pelvis. -CT bilateral femur: no abscess or osteoarthritis. -Urine cx contaminated -10/31 blood cx NGTD Antibiotics: -S/p Augmentin 10/30-10/31 Plan: -Declined RVP -Started Unasyn IV (11/01-) + linezolid IV (was on prior to admission-present) -Colorectal surgery consulted. Recommended GI consult for scope given recent diverticulitis. They will consider possible inpatient versus outpatient surgery -ID following, recs appreciated -GI following, plan for EGD and colonoscopy Sunday. NPO Sunday night -Pain regimen: tylenol 1 g tid scheduled, oxycodone, dilaudid. Also has home gabapentin, oxybutynin, topamax, robaxin continued -Continue TPN due to stool frequently blocking mcclelland during previous hospital stay. Clear liquid diet Assessment & Plan (11/01/2024 11:36 AM CDT): Presented with isolated fever, n/v at home along with increased pain in abdomen. Patient was hospitalized 3 times since June for similar issues. 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 09/14-09/29: presented for abdominal pain, CT showed sequela of colocolonic fistulae 2/2 complicated diverticulitis. 10/06-10/22 presented for n/v, CT showed acute on chronic diverticulitis with increased inflammation around bladder and sigmoid colon. This admission repeat CT did not show new findings but her symptoms are likely still associated with her ongoing GI/ issues. Per CRS note 10/15 from previous admission, patient has 2 options, one is sigmoidectomy + colovesicular fistula taken down with primary anastomosis to reduce significant morbidity anticipated with end colostomy. This option would not be feasible in the setting of acute diverticulitis flare. Alternative emergent operation would be sigmoidectomy and end colostomy without option for reversal for an extended period of time and until significant weight loss achieved. Now given that it has been 3 weeks since patient's last encounter with CRS and CT did not show new imaging evidence of diverticulitis flare, and patient has achieved significant weight loss, would re-engage CRS for continued discussion about surgical options. Work-up: -UA with 3+ leukocyte esterase, 4+ bacteria. Last urine culture 09/25 showed enterococcus faecium only susceptible to linezolid -CT C/A/P: Unchanged tethering of the sigmoid colon to the uterine fundus as well as the urinary bladder. 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 Unchanged findings of acute on chronic diverticulitis in the pelvis. -CT bilateral femur: no abscess or osteoarthritis. -Urine cx contaminated -10/31 blood cx NGTD Plan: -Declined RVP -Continue Augmentin + linezolid (on tedizolid at home) -Colorectal surgery consulted. Recommended GI consult for scope given recent diverticulitis. They will consider possible inpatient versus outpatient surgery -C/s ID given fever while on abx -C/s GI -Pain regimen: tylenol 1 g tid scheduled, oxycodone, dilaudid. Also has home gabapentin, oxybutynin, topamax, robaxin continued -Continue TPN due to stool frequently blocking mcclelland during previous hospital stay. Clear liquid diet Assessment & Plan (10/31/2024 5:01 PM CDT): Presented with isolated fever, n/v at home along with increased pain in abdomen. Patient was hospitalized 3 times since June for similar issues. 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 09/14-09/29: presented for abdominal pain, CT showed sequela of colocolonic fistulae 2/2 complicated diverticulitis. 10/06-10/22 presented for n/v, CT showed acute on chronic diverticulitis with increased inflammation around bladder and sigmoid colon. This admission repeat CT did not show new findings but her symptoms are likely still associated with her ongoing GI/ issues. Per CRS note 10/15 from previous admission, patient has 2 options, one is sigmoidectomy + colovesicular fistula taken down with primary anastomosis to reduce significant morbidity anticipated with end colostomy. This option would not be feasible in the setting of acute diverticulitis flare. Alternative emergent operation would be sigmoidectomy and end colostomy without option for reversal for an extended period of time and until significant weight loss achieved. Now given that it has been 3 weeks since patient's last encounter with CRS and CT did not show new imaging evidence of diverticulitis flare, and patient has achieved significant weight loss, would re-engage CRS for continued discussion about surgical options. Work-up: -UA with 3+ leukocyte esterase, 4+ bacteria. Last urine culture 09/25 showed enterococcus faecium only susceptible to linezolid -CT C/A/P: Unchanged tethering of the sigmoid colon to the uterine fundus as well as the urinary bladder. 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 -CT bilateral femur: no abscess or osteoarthritis. Plan: -Follow UCx and BCx. -Declined RVP -Continue Augmentin + linezolid (on tedizolid at home) -Colorectal surgery consulted. Recommended GI consult for scope given recent diverticulitis. They will consider possible inpatient versus outpatient surgery -C/s ID in AM -C/s GI in AM -Pain regimen: tylenol 1 g tid scheduled, oxycodone, dilaudid. Also has home gabapentin, oxybutynin, topamax, robaxin continued -Continue TPN due to stool frequently blocking mcclelland during previous hospital stay. Clear liquid diet Assessment & Plan (10/31/2024 2:56 AM CDT): Presented with isolated fever, n/v at home along with increased pain in abdomen. Patient was hospitalized 3 times since June for similar issues. 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 09/14-09/29: presented for abdominal pain, CT showed sequela of colocolonic fistulae 2/2 complicated diverticulitis. 10/06-10/22 presented for n/v, CT showed acute on chronic diverticulitis with increased inflammation around bladder and sigmoid colon. This admission repeat CT did not show new findings but her symptoms are likely still associated with her ongoing GI/ issues. Per CRS note 10/15 from previous admission, patient has 2 options, one is sigmoidectomy + colovesicular fistula taken down with primary anastomosis to reduce significant morbidity anticipated with end colostomy. This option would not be feasible in the setting of acute diverticulitis flare. Alternative emergent operation would be sigmoidectomy and end colostomy without option for reversal for an extended period of time and until significant weight loss achieved. Now given that it has been 3 weeks since patient's last encounter with CRS and CT did not show new imaging evidence of diverticulitis flare, and patient has achieved significant weight loss, would re-engage CRS for continued discussion about surgical options. Work-up: -UA with 3+ leukocyte esterase, 4+ bacteria. Last urine culture 09/25 showed enterococcus faecium only susceptible to linezolid -CT C/A/P: Unchanged tethering of the sigmoid colon to the uterine fundus as well as the urinary bladder. 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 -CT bilateral femur: no abscess or osteoarthritis. Plan: -Await UCx and BCx. Check RVP since patient also mentioned sore throat lately -Continue Augmentin + linezolid (on tedizolid at home) -CRS and ID consult in the AM -Pain regimen: tylenol 1 g tid scheduled, oxycodone, dilaudid. Also has home gabapentin, oxybutynin, topamax, robaxin continued -Continue TPN due to stool frequently blocking mcclelland during previous hospital stay Assessment & Plan (09/29/2024 6:14 PM CDT): Presented with bilateral flank pain. CT AP on admission 09/14 showed sequela of prior colonic diverticulitis and subsequent colovesical fistula formation with unchanged tethering of the uterus and bladder to the adjacent sigmoid colon with persistent inflammatory changes/stranding along the sigmoid colon, which are favored to be chronic. - s/p two days of empiric cefepime / flagyl for empiric treatment of diverticulitis (09/14-09/15) - repeat CT AP obtained 09/20 given worsening abdominal pain showed unchanged sequelae of complicated diverticulitis of the sigmoid colon with colocolonic fistulae, colovesicular fistula, and soft tissue tethering between the colon and uterine fundus; sequelae of prior pyelonephritis without hydronephrosis or nephrolithiasis - Despite stable imaging findings, patient continues to be very symptomatic with abdominal pain and nausea; no significant improvement with trial of antibiotics for possible acute episode of diverticulitis with ceftriaxone + flagyl (09/22-09/25) - Consulted CRS 0 09/24, no plan for surgical intervention this admission, plan for outpatient surgery (she will need colonoscopy prior) - Repeat CT abdomen/pelvis with contrast 09/25 did not show any acute findings. Discontinued antibiotics. - Pain control: tylenol 650 q6h, gabapentin 600 TID, methocarbamol 500 TID. PRNs: oxy 10mg q4h 1st line, IV dilaudid 0.5 mg q4h 2nd line--> weaned off today - Can not increase gabapentin dose due to renal function. - Consulted pain management; no additional recommendations (discussed Topamax for chronic pain and to help with weight loss but patient declined) - Plan to discharge home today, recommended follow up with PCP for management of ongoing chronic pain Assessment & Plan (09/28/2024 5:35 PM CDT): Presented with bilateral flank pain. CT AP on admission 09/14 showed sequela of prior colonic diverticulitis and subsequent colovesical fistula formation with unchanged tethering of the uterus and bladder to the adjacent sigmoid colon with persistent inflammatory changes/stranding along the sigmoid colon, which are favored to be chronic. - s/p two days of empiric cefepime / flagyl for empiric treatment of diverticulitis (09/14-09/15) - repeat CT AP obtained 09/20 given worsening abdominal pain showed unchanged sequelae of complicated diverticulitis of the sigmoid colon with colocolonic fistulae, colovesicular fistula, and soft tissue tethering between the colon and uterine fundus; sequelae of prior pyelonephritis without hydronephrosis or nephrolithiasis - Despite stable imaging findings, patient continues to be very symptomatic with abdominal pain and nausea; no significant improvement with trial of antibiotics for possible acute episode of diverticulitis with ceftriaxone + flagyl (09/22-09/25) - Consulted CRS 0 09/24, no plan for surgical intervention this admission, plan for outpatient surgery (she will need colonoscopy prior) - Repeat CT abdomen/pelvis with contrast 09/25 did not show any acute findings. Discontinued antibiotics. - Pain control: tylenol 650 q6h, gabapentin 600 TID, methocarbamol 500 TID. PRNs: oxy 10mg q4h 1st line, IV dilaudid 0.5 mg q4h 2nd line--> continue to gradually weaned off IV Dilaudid 0.5 mg q.12 hours - Can not increase gabapentin dose due to renal function. - Consulted pain management; no additional recommendations (discussed Topamax for chronic pain and to help with weight loss but patient declined) Assessment & Plan (09/27/2024 5:51 PM CDT): Presented with bilateral flank pain. CT AP on admission 09/14 showed sequela of prior colonic diverticulitis and subsequent colovesical fistula formation with unchanged tethering of the uterus and bladder to the adjacent sigmoid colon with persistent inflammatory changes/stranding along the sigmoid colon, which are favored to be chronic. - s/p two days of empiric cefepime / flagyl for empiric treatment of diverticulitis (09/14-09/15) - repeat CT AP obtained 09/20 given worsening abdominal pain showed unchanged sequelae of complicated diverticulitis of the sigmoid colon with colocolonic fistulae, colovesicular fistula, and soft tissue tethering between the colon and uterine fundus; sequelae of prior pyelonephritis without hydronephrosis or nephrolithiasis - Despite stable imaging findings, patient continues to be very symptomatic with abdominal pain and nausea; no significant improvement with trial of antibiotics for possible acute episode of diverticulitis with ceftriaxone + flagyl (09/22-09/25) - Consulted CRS 0 09/24, no plan for surgical intervention this admission, plan for outpatient surgery (she will need colonoscopy prior) - Repeat CT abdomen/pelvis with contrast 09/25 did not show any acute findings. Discontinued antibiotics. - Pain control: tylenol 650 q6h, gabapentin 600 TID, methocarbamol 500 TID. PRNs: oxy 10mg q4h 1st line, IV dilaudid 0.5 mg q4h 2nd line--> continue to gradually weaned off IV Dilaudid 0.5 mg q.8 hours - Can not increase gabapentin dose due to renal function. - Consulted pain management; no additional recommendations (discussed Topamax for chronic pain and to help with weight loss but patient declined) Assessment & Plan (09/26/2024 3:31 PM CDT): Presented with bilateral flank pain. CT AP on admission 09/14 showed sequela of prior colonic diverticulitis and subsequent colovesical fistula formation with unchanged tethering of the uterus and bladder to the adjacent sigmoid colon with persistent inflammatory changes/stranding along the sigmoid colon, which are favored to be chronic. UA suggestive of UTI. - Management of UTI as elsewhere - s/p two days of empiric cefepime / flagyl for empiric treatment of diverticulitis (09/14-09/15) - repeat CT AP obtained 09/20 given worsening abdominal pain showed unchanged sequelae of complicated diverticulitis of the sigmoid colon with colocolonic fistulae, colovesicular fistula, and soft tissue tethering between the colon and uterine fundus; sequelae of prior pyelonephritis without hydronephrosis or nephrolithiasis - Despite stable imaging findings, patient continues to be very symptomatic with abdominal pain and nausea; no significant improvement with trial of antibiotics for possible acute episode of diverticulitis with ceftriaxone + flagyl (09/22-09/25) - Consulted CRS 0 09/24, no plan for surgical intervention this admission, plan for outpatient surgery (she will need colonoscopy prior) - Repeat CT abdomen/pelvis with contrast 09/25 did not show any acute findings. Discontinued antibiotics. - Pain control: tylenol 650 q6h, gabapentin 600 TID, methocarbamol 500 TID. PRNs: oxy 10mg q4h 1st line, IV dilaudid 0.5 mg q4h 2nd line--> gradually weaned off IV Dilaudid 0.5 mg q.6 hours - Can not increase gabapentin dose due to renal function. - Consulted pain management for further recommendations Assessment & Plan (09/25/2024 5:06 PM CDT): Presented with bilateral flank pain. CT AP on admission 09/14 showed sequela of prior colonic diverticulitis and subsequent colovesical fistula formation with unchanged tethering of the uterus and bladder to the adjacent sigmoid colon with persistent inflammatory changes/stranding along the sigmoid colon, which are favored to be chronic. UA suggestive of UTI. - Management of UTI as elsewhere - s/p two days of empiric cefepime / flagyl for empiric treatment of diverticulitis (09/14-09/15) - repeat CT AP obtained 09/20 given worsening abdominal pain showed unchanged sequelae of complicated diverticulitis of the sigmoid colon with colocolonic fistulae, colovesicular fistula, and soft tissue tethering between the colon and uterine fundus; sequelae of prior pyelonephritis without hydronephrosis or nephrolithiasis - Despite stable imaging findings, patient continues to be very symptomatic with abdominal pain and nausea; no significant improvement with trial of antibiotics for possible acute episode of diverticulitis with ceftriaxone + flagyl (09/22-09/25) - Consulted CRS 0 09/24, no plan for surgical intervention this admission, plan for outpatient surgery (she will need colonoscopy prior) - Repeat CT abdomen/pelvis with contrast 09/25 did not show any acute findings. Discontinued antibiotics. - Pain control: tylenol 650 q6h, gabapentin 600 TID, methocarbamol 500 TID. PRNs: oxy 10mg q4h 1st line, IV dilaudid 0.5 mg q4h 2nd line--> unable to wean off IV pain meds due to persistent symptoms, considering weaning of pain medication from tomorrow - Under consult pain management tomorrow Assessment & Plan (09/24/2024 6:39 PM CDT): Presented with bilateral flank pain. CT AP on admission 09/14 showed sequela of prior colonic diverticulitis and subsequent colovesical fistula formation with unchanged tethering of the uterus and bladder to the adjacent sigmoid colon with persistent inflammatory changes/stranding along the sigmoid colon, which are favored to be chronic. UA suggestive of UTI. - Management of UTI as elsewhere - s/p two days of empiric cefepime / flagyl for empiric treatment of diverticulitis (09/14-09/15) - repeat CT AP obtained 09/20 given worsening abdominal pain showed unchanged sequelae of complicated diverticulitis of the sigmoid colon with colocolonic fistulae, colovesicular fistula, and soft tissue tethering between the colon and uterine fundus; sequelae of prior pyelonephritis without hydronephrosis or nephrolithiasis - despite stable imaging findings, patient continues to be very symptomatic with abdominal pain and nausea; no significant improvement with trial of antibiotics for possible acute episode of diverticulitis with ceftriaxone + flagyl (09/22- ) - Consulted CRS today, no plan for surgical intervention this admission, might consider high-risk outpatient surgery - Pain control: tylenol 650 q6h, gabapentin 600 TID, methocarbamol 500 TID. PRNs: oxy 10mg q4h 1st line, IV dilaudid 0.5 mg q4h 2nd line--> unable to wean off IV pain meds due to persistent symptoms - Plan to consider pain management consult for chronic/persistent abdominal pain Assessment & Plan (09/23/2024 7:41 PM CDT): Presented with bilateral flank pain. CT AP on admission 09/14 showed sequela of prior colonic diverticulitis and subsequent colovesical fistula formation with unchanged tethering of the uterus and bladder to the adjacent sigmoid colon with persistent inflammatory changes/stranding along the sigmoid colon, which are favored to be chronic. UA suggestive of UTI. - Management of UTI as elsewhere - s/p two days of empiric cefepime / flagyl for empiric treatment of diverticulitis (09/14-09/15) - repeat CT AP obtained 09/20 given worsening abdominal pain showed unchanged sequelae of complicated diverticulitis of the sigmoid colon with colocolonic fistulae, colovesicular fistula, and soft tissue tethering between the colon and uterine fundus; sequelae of prior pyelonephritis without hydronephrosis or nephrolithiasis - despite stable imaging findings, patient continues to be very symptomatic with abdominal pain and nausea; will trial antibiotics for possible acute episode of diverticulitis with ceftriaxone + flagyl (6/2- ) - if no improvement, consider re-engaging Colorectal Surgery tomorrow to consider operative intervention for chronic diverticulitis / colocolonic and colovesicular fistulae - Pain control: tylenol 650 q6h, gabapentin 600 TID, methocarbamol 500 TID. PRNs: oxy 10mg q4h 1st line, IV dilaudid 0.5 mg q4h 2nd line Assessment & Plan (09/22/2024 1:19 PM CDT): Presented with bilateral flank pain. CT AP on admission 09/14 showed sequela of prior colonic diverticulitis and subsequent colovesical fistula formation with unchanged tethering of the uterus and bladder to the adjacent sigmoid colon with persistent inflammatory changes/stranding along the sigmoid colon, which are favored to be chronic. UA suggestive of UTI. - Management of UTI as elsewhere - s/p two days of empiric cefepime / flagyl for empiric treatment of diverticulitis (09/14-09/15) - repeat CT AP obtained 09/20 given worsening abdominal pain showed unchanged sequelae of complicated diverticulitis of the sigmoid colon with colocolonic fistulae, colovesicular fistula, and soft tissue tethering between the colon and uterine fundus; sequelae of prior pyelonephritis without hydronephrosis or nephrolithiasis - despite stable imaging findings, patient continues to be very symptomatic with abdominal pain and nausea; will trial antibiotics for possible acute episode of diverticulitis with ceftriaxone + flagyl (6/2- ) - if no improvement, consider re-engaging Colorectal Surgery to consider operative intervention for chronic diverticulitis / colocolonic and colovesicular fistulae - Pain control: tylenol 650 q6h, gabapentin 600 TID, methocarbamol 500 TID. PRNs: oxy 10mg q4h 1st line, IV dilaudid 0.5 mg q4h 2nd line Assessment & Plan (09/21/2024 1:47 PM CDT): Presenting with bilateral flank pain. CT AP on admission 09/14 showed sequela of prior colonic diverticulitis and subsequent colovesical fistula formation with unchanged tethering of the uterus and bladder to the adjacent sigmoid colon with persistent inflammatory changes/stranding along the sigmoid colon, which are favored to be chronic. UA suggestive of UTI. - Management of UTI as elsewhere - low suspicion for acute episode of diverticulitis given imaging findings and absence of fever or leukocytosis - s/p two days of empiric cefepime / flagyl - repeat CT AP obtained 09/20 given persistent abdominal pain showed unchanged sequelae of complicated diverticulitis of the sigmoid colon with colocolonic fistulae, colovesicular fistula, and soft tissue tethering between the colon and uterine fundus; sequelae of prior pyelonephritis without hydronephrosis or nephrolithiasis - Pain control: tylenol 650 q6h, gabapentin 600 TID, methocarbamol 500 TID. PRNs: oxy 10mg q4h 1st line, IV dilaudid 0.5 mg q4h 2nd line Assessment & Plan (09/20/2024 12:59 PM CDT): Presenting with bilateral flank pain. CT AP on admission 09/14 showed sequela of prior colonic diverticulitis and subsequent colovesical fistula formation with unchanged tethering of the uterus and bladder to the adjacent sigmoid colon with persistent inflammatory changes/stranding along the sigmoid colon, which are favored to be chronic. UA suggestive of UTI. - Management of UTI as elsewhere - low suspicion for acute episode of diverticulitis given imaging findings and absence of fever or leukocytosis - s/p two days of empiric cefepime / flagyl - repeat CT AP obtained 09/20 showed unchanged sequelae of complicated diverticulitis of the sigmoid colon with colocolonic fistulae, colovesicular fistula, and soft tissue tethering between the colon and uterine fundus; sequelae of prior pyelonephritis without hydronephrosis or nephrolithiasis - Pain control: tylenol 650 q6h, gabapentin 600 TID, methocarbamol 500 TID. PRNs: oxy 10mg q4h 1st line, IV dilaudid 0.5 mg q4h 2nd line Assessment & Plan (09/19/2024 2:09 PM CDT): Presenting with bilateral flank pain. CT AP showed sequela of prior colonic diverticulitis and subsequent colovesical fistula formation with unchanged tethering of the uterus and bladder to the adjacent sigmoid colon with persistent inflammatory changes/stranding along the sigmoid colon, which are favored to be chronic. UA suggestive of UTI. - Management of UTI as elsewhere - low suspicion for acute episode of diverticulitis given imaging findings and absence of fever or leukocytosis - s/p two days of empiric cefepime / flagyl - Pain control: tylenol 650 q6h, gabapentin 600 TID, methocarbamol 500 TID. PRNs: oxy 10mg q4h 1st line, IV dilaudid 0.5 mg q4h 2nd line Assessment & Plan (09/14/2024 10:52 PM CDT): Presneting with bilateral flank pain. CT AP showed Sequela of prior colonic diverticulitis and subsequent colovesical fistula formation with unchanged tethering of the uterus and bladder to the adjacent sigmoid colon with persistent inflammatory changes/stranding along the sigmoid colon, which are favored to be chronic. UA suggestive of UTI - Management of UTI as mentioned elsewhere. - Continue empiric antibiotics, if worsens consider GI consult for evaluation of possible acute on chronic diverticulitis. - Pain control: tylenol 650 q6h, gabapentin 300 TID, methocarbamol 750 TID: PRNs: oxy 5mg q4h pr Assessment & Plan (07/16/2024 9:01 PM CDT): Likely related to chronic hernia. - APAP Assessment & Plan (06/18/2024 8:31 PM CHEF): CT with evidence of fistula between sigmoid colon and bladder and additional tethering of the sigmoid colon and uterus without obvious fistula. Thought that this is related to prior hx of diverticulitis. There is note of renal stones, without hydro and large central hernia with loops of SB without obstruction. - CRS c/s: favor optimizing infection and weight prior to possible outpatient fistula repair (f/u with Dr. Kearns in 4-6wk). - pain control: APAP, oxycodone 10mg q4 PRN. Dilaudid breakthrough Anemia 06/14/2024 Assessment & Plan (09/05/2024 1:34 PM CDT): - S/p blood transfusions. - Eval underway, seen by CRS/ and needs GI/[employer]ainer eval for further - [employer]OVER consulted on 08/22, will follow, likely needs pelvic sono, EM biopsy etc. Started on Provera daily -5/2 - Prn transfuse for Hgb < 7 Assessment & Plan (09/04/2024 3:38 PM CDT): - S/p blood transfusions. - Eval underway, seen by CRS/ and needs GI/[employer] Maintainer eval for further - SPOT REMOVER consulted on 08/22, will follow, likely needs pelvic sono, EM biopsy etc. Started on Provera daily -5/2 - Prn transfuse for Hgb < 7 Assessment & Plan (09/04/2024 12:00 AM CDT): - S/p blood transfusions. - Eval underway, seen by CRS/ and needs GI/[employer] Maintainer eval for further - SPOT REMOVER consulted on 08/22, will follow, likely needs pelvic sono, EM biopsy etc. Started on Provera daily -5/2 - Prn transfuse for Hgb < 7 Assessment & Plan (09/02/2024 10:16 PM CDT): - S/p blood transfusions. - Eval underway, seen by CRS/ and needs GI/Telegraph Equipment Maintainer eval for further - SPOT REMOVER consulted on 08/22, will follow, likely needs pelvic sono, EM biopsy etc. Started on Provera daily -5/2 - Prn transfuse for Hgb < 7 Assessment & Plan (09/01/2024 6:41 PM CDT): - S/p blood transfusions. - Eval underway, seen by CRS/ and needs GI/Telegraph Equipment Maintainer eval for further - SPOT REMOVER consulted on 08/22, will follow, likely needs pelvic sono, EM biopsy etc. Started on Provera daily -5/2 - Prn transfuse for Hgb < 7 Assessment & Plan (08/31/2024 2:41 PM CDT): - S/p blood transfusions. - Eval underway, seen by CRS/ and needs GI/Telegraph Equipment Maintainer eval for further - SPOT REMOVER consulted on 08/22, will follow, likely needs pelvic sono, EM biopsy etc. Started on Provera daily -5/2 - Prn transfuse for Hgb < 7 Assessment & Plan (08/30/2024 8:14 AM CDT): - S/p blood transfusions. - Eval underway, seen by CRS/ and needs GI/Telegraph Equipment Maintainer eval for further - SPOT REMOVER consulted on 08/22, will follow, likely needs pelvic sono, EM biopsy etc. Started on Provera daily -/ - Prn transfuse for Hgb < 7 Assessment & Plan (08/23/2024 1:59 PM CDT): - S/p blood transfusions. - Eval underway, seen by CRS/ and needs GI/Telegraph Equipment Maintainer eval for further - SPOT REMOVER consulted on 08/22, will follow, likely needs pelvic sono, EM biopsy etc. Started on Provera daily -08/22 - Prn transfuse for Hgb < 7 Assessment & Plan (08/22/2024 2:16 PM CDT): - S/p blood transfusions. - Eval underway, seen by CRS/ and needs GI/Telegraph Equipment Maintainer eval for further - SPOT REMOVER consulted on 08/22, will follow, likely needs pelvic sono, EM biopsy etc. - Prn transfuse for Hgb < 7 Assessment & Plan (08/21/2024 3:20 PM CDT): - S/p blood transfusions. - Eval underway, seen by CRS/ and needs GI/Telegraph Equipment Maintainer eval for further - Prn transfuse for Hgb < 7 Assessment & Plan (08/20/2024 4:38 PM CDT): Hgb stable, no bleeding. - Prn transfuse for Hgb < 7 Assessment & Plan (08/19/2024 4:21 PM CDT): Hgb stable, no bleeding. - Transfuse for Hgb < 7 Assessment & Plan (08/18/2024 9:06 AM CDT): Hgb stable, no bleeding. - Transfuse for Hgb < 7 Assessment & Plan (08/17/2024 11:39 AM CDT): Hgb stable, no bleeding. - Transfuse for Hgb < 7 Assessment & Plan (08/16/2024 10:30 AM CDT): Hgb stable, no bleeding. - Transfuse for Hgb < 7 Assessment & Plan (08/15/2024 7:54 AM CDT): Hgb stable, no bleeding. - Transfuse for Hgb < 7 Assessment & Plan (08/14/2024 8:13 AM CDT): Hgb stable, no bleeding. - Transfuse for Hgb < 7 Assessment & Plan (08/13/2024 1:27 PM CDT): Hgb stable, no bleeding. - Transfuse for Hgb < 7 Assessment & Plan (08/12/2024 8:00 AM CDT): Hgb stable, no bleeding. - Transfuse for Hgb < 7 Assessment & Plan (08/11/2024 2:05 PM CDT): Hgb stable, no bleeding. - Transfuse for Hgb < 7 Assessment & Plan (08/10/2024 11:43 AM CDT): Hgb stable, no bleeding. - Transfuse for Hgb < 7 Assessment & Plan (08/09/2024 10:35 AM CDT): Hgb stable, no bleeding. - Transfuse for Hgb < 7 Assessment & Plan (08/08/2024 1:49 PM CDT): Hgb stable, no bleeding. - Transfuse for Hgb < 7 Assessment & Plan (08/07/2024 2:44 PM CDT): Hgb stable, no bleeding. - Transfuse for Hgb < 7 Assessment & Plan (08/06/2024 12:37 PM CDT): Hgb stable, no bleeding. - Transfuse for Hgb < 7 Assessment & Plan (08/04/2024 2:33 PM CDT): Hgb stable, no bleeding. - Transfuse for Hgb < 7 Assessment & Plan (08/03/2024 8:32 AM CDT): Hgb stable, no bleeding. - Transfuse for Hgb < 7 Assessment & Plan (08/02/2024 9:22 AM CDT): Hgb stable, no bleeding. - Transfuse for Hgb < 7 Assessment & Plan (08/01/2024 12:29 PM CDT): Hgb stable, no bleeding. - Transfuse for Hgb < 7 Assessment & Plan (07/31/2024 12:03 PM CDT): Hgb stable, no bleeding. - Transfuse for Hgb < 7 Assessment & Plan (07/30/2024 12:46 PM CDT): Hgb stable, no bleeding. - Scheduled IV replacement inpatient after abx completion (on 07/24) and PO supplementation at DC. - Transfuse for Hgb < 7 Assessment & Plan (07/29/2024 12:35 PM CDT): Hgb stable, no bleeding. - Scheduled IV replacement inpatient after abx completion (on 07/24) and PO supplementation at DC. - Transfuse for Hgb < 7 Assessment & Plan (06/17/2024 6:54 PM CHEF): Mild microcytic anemia, Hgb in 10s -ferritin 24, Tsat/TIBC unable to be calculated -- seems consistent with CHEKO rather than anemia of chronic disease -can start iron po Obesity 06/14/2024 Assessment & Plan (11/11/2024 3:08 PM CDT): Per patient, she is only drinking water without eating anything since her TPN was started so she would be qualified for surgery. BMI 62 during her hospital stay in June, now BMI 50. Patient reports that she has lost 100 lbs -RD on board. -Continue TPN via PICC line -Continue clear liquid diet, NPO after MN on 11/10. Can continue TPN until called for surgery so no need for D5 infusion at this time. Assessment & Plan (11/10/2024 1:56 PM CDT): Per patient, she is only drinking water without eating anything since her TPN was started so she would be qualified for surgery. BMI 62 during her hospital stay in June, now BMI 50. Patient reports that she has lost 100 lbs -RD on board. -Continue TPN via PICC line -Continue clear liquid diet, NPO after MN on 11/10. Can continue TPN until called for surgery so no need for D5 infusion at this time. Assessment & Plan (11/09/2024 3:12 PM CDT): Per patient, she is only drinking water without eating anything since her TPN was started so she would be qualified for surgery. BMI 62 during her hospital stay in June, now BMI 50. Patient reports that she has lost 100 lbs -RD on board. -Continue TPN via PICC line -Continue clear liquid diet, NPO after MN on 11/10. Assessment & Plan (11/08/2024 8:50 AM CDT): Per patient, she is only drinking water without eating anything since her TPN was started so she would be qualified for surgery. BMI 62 during her hospital stay in June, now BMI 50. Patient reports that she has lost 100 lbs -RD on board. -Continue TPN via PICC line -Continue clear liquid diet Assessment & Plan (11/07/2024 1:40 PM CDT): Per patient, she is only drinking water without eating anything since her TPN was started so she would be qualified for surgery. BMI 62 during her hospital stay in June, now BMI 50. Patient reports that she has lost 100 lbs -RD on board. -Continue TPN via PICC line -Continue clear liquid diet Assessment & Plan (11/06/2024 9:12 AM CDT): Per patient, she is only drinking water without eating anything since her TPN was started so she would be qualified for surgery. BMI 62 during her hospital stay in June, now BMI 50. Patient reports that she has lost 100 lbs -RD consulted. -Continue TPN via PICC line -Continue clear liquid diet Assessment & Plan (11/05/2024 7:22 AM CDT): Per patient, she is only drinking water without eating anything since her TPN was started so she would be qualified for surgery. BMI 62 during her hospital stay in June, now BMI 50. Patient reports that she has lost 100 lbs -RD consulted. -Continue TPN via PICC line -Continue clear liquid diet Assessment & Plan (11/04/2024 5:53 PM CDT): Per patient, she is only drinking water without eating anything since her TPN was started so she would be qualified for surgery. BMI 62 during her hospital stay in June, now BMI 50. Patient reports that she has lost 100 lbs -RD consulted. -Continue TPN via PICC line -Continue clear liquid diet Assessment & Plan (11/03/2024 3:28 PM CDT): Per patient, she is only drinking water without eating anything since her TPN was started so she would be qualified for surgery. BMI 62 during her hospital stay in June, now BMI 50. Patient reports that she has lost 100 lbs -RD consulted. -Continue TPN via PICC line -Continue clear liquid diet Assessment & Plan (11/02/2024 7:50 AM CDT): Per patient, she is only drinking water without eating anything since her TPN was started so she would be qualified for surgery. BMI 62 during her hospital stay in June, now BMI 50. Patient reports that she has lost 100 lbs -RD consulted. Continue TPN via PICC line Assessment & Plan (11/01/2024 8:08 AM CDT): Per patient, she is only drinking water without eating anything since her TPN was started so she would be qualified for surgery. BMI 62 during her hospital stay in June, now BMI 50. Patient reports that she has lost 100 lbs -RD consulted. Continue TPN via PICC line Assessment & Plan (10/31/2024 5:01 PM CDT): Per patient, she is only drinking water without eating anything since her TPN was started so she would be qualified for surgery. BMI 62 during her hospital stay in June, now BMI 50. Patient reports that she has lost 100 lbs -RD consulted. Continue TPN via PICC line Assessment & Plan (10/31/2024 2:50 AM CDT): Per patient, she is only drinking water without eating anything since her TPN was started so she would be qualified for surgery. BMI 62 during her hospital stay in June, now BMI 50. Patient reports that she has lost 100 lbs -RD consulted. Continue TPN Assessment & Plan (10/22/2024 9:14 PM CDT): BMI 52. Nutrition was re engaged consulted cause she is obese but also now malnourished due to her prolonged admissions and poor PO intake. Given malnutrition and to minimize stool passing through fistula, planning for NPO with TPN until surgery. RD consulted. Plan: - TPN Assessment & Plan (10/21/2024 4:45 PM CDT): BMI 52. Nutrition was re engaged consulted cause she is obese but also now malnourished due to her prolonged admissions and poor PO intake. Given malnutrition and to minimize stool passing through fistula, planning for NPO with TPN until surgery. RD consulted. Plan: - TPN - Daily labs for electrolyte management. Assessment & Plan (10/20/2024 3:03 PM CDT): BMI 52. Nutrition was re engaged consulted cause she is obese but also now malnourished due to her prolonged admissions and poor PO intake. Given malnutrition and to minimize stool passing through fistula, planning for NPO with TPN until surgery. RD consulted. Plan: - TPN - Daily labs for electrolyte management. Assessment & Plan (10/19/2024 9:31 AM CDT): BMI 52. Nutrition was re engaged consulted cause she is obese but also now malnourished due to her prolonged admissions and poor PO intake. Given malnutrition and to minimize stool passing through fistula, planning for NPO with TPN until surgery. RD consulted. Plan: - TPN - Daily labs for electrolyte management. Assessment & Plan (10/18/2024 8:51 AM CDT): BMI 52. Nutrition was re engaged consulted cause she is obese but also now malnourished due to her prolonged admissions and poor PO intake. Given malnutrition and to minimize stool passing through fistula, planning for NPO with TPN until surgery. RD consulted. Plan: - TPN - Daily labs for electrolyte management. Assessment & Plan (10/17/2024 1:19 PM CDT): BMI 52. Nutrition was re engaged consulted cause she is obese but also now malnourished due to her prolonged admissions and poor PO intake. Given malnutrition and to minimize stool passing through fistula, planning for NPO with TPN until surgery. RD consulted. Plan: - TPN - Daily labs for electrolyte management. Assessment & Plan (10/16/2024 1:02 PM CDT): BMI 52. Nutrition was re engaged consulted cause she is obese but also now malnourished due to her prolonged admissions and poor PO intake. Will need goals and better information regarding dietary habits that are sustainable. Assessment & Plan (10/15/2024 10:10 AM CDT): BMI 52. Nutrition was re engaged consulted cause she is obese but also now malnourished due to her prolonged admissions and poor PO intake. Will need goals and better information regarding dietary habits that are sustainable. Assessment & Plan (10/14/2024 9:34 AM CDT): BMI 52. Nutrition was re engaged consulted cause she is obese but also now malnourished due to her prolonged admissions and poor PO intake. Will need goals and better information regarding dietary habits that are sustainable. Assessment & Plan (10/13/2024 5:52 PM CDT): BMI 52. Nutrition was re engaged consulted cause she is obese but also now malnourished due to her prolonged admissions and poor PO intake. Will need goals and better information regarding dietary habits that are sustainable. Assessment & Plan (10/12/2024 11:25 AM CDT): BMI 52. GLP unfortunately not covered by insurance. - Beater Room Supervisor: low calorie/OP nutrition - Can consider other medical therapies in an OP setting Assessment & Plan (10/11/2024 10:03 AM CDT): BMI 52. GLP unfortunately not covered by insurance. - Beater Room Supervisor: low calorie/OP nutrition - Can consider other medical therapies in an OP setting Assessment & Plan (10/10/2024 2:50 PM CDT): BMI 52. GLP unfortunately not covered by insurance. - Beater Room Supervisor: low calorie/OP nutrition - Can consider other medical therapies in an OP setting Assessment & Plan (10/09/2024 10:57 AM CDT): BMI 52. GLP unfortunately not covered by insurance. - Beater Room Supervisor: low calorie/OP nutrition - Can consider other medical therapies in an OP setting Assessment & Plan (10/08/2024 3:33 PM CDT): BMI 52. GLP unfortunately not covered by insurance. - Beater Room Supervisor: low calorie/OP nutrition - Can consider other medical therapies in an OP setting Assessment & Plan (10/07/2024 7:16 AM CDT): BMI 52. GLP unfortunately not covered by insurance. - Beater Room Supervisor: low calorie/OP nutrition - Can consider other medical therapies in an OP setting Assessment & Plan (09/05/2024 1:34 PM CDT): Complicates all aspects of care. 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 Referral made to weight loss clinic during last admission in May. Reviewed prior notes from CRS. No definitive wt goal for surgery. Ideally should show some wt loss before reaching out to surgery gain. - Consider starting Victoza on discharge if renal function stabilizes. Unfortunately her insurance doesn't cover Ozempic or Mounjaro. Assessment & Plan (09/04/2024 3:38 PM CDT): Complicates all aspects of care. 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 Referral made to weight loss clinic during last admission in May. Reviewed prior notes from CRS. No definitive wt goal for surgery. Ideally should show some wt loss before reaching out to surgery gain. - Consider starting Victoza on discharge if renal function stabilizes. Unfortunately her insurance doesn't cover Ozempic or Mounjaro. Assessment & Plan (09/04/2024 12:00 AM CDT): Complicates all aspects of care. 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 Referral made to weight loss clinic during last admission in May. Reviewed prior notes from CRS. No definitive wt goal for surgery. Ideally should show some wt loss before reaching out to surgery gain. - Consider starting Victoza on discharge if renal function stabilizes. Unfortunately her insurance doesn't cover Ozempic or Mounjaro. Assessment & Plan (09/02/2024 10:16 PM CDT): Complicates all aspects of care. 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 Referral made to weight loss clinic during last admission in May. Reviewed prior notes from CRS. No definitive wt goal for surgery. Ideally should show some wt loss before reaching out to surgery gain. - Consider starting Victoza on discharge if renal function stabilizes. Unfortunately her insurance doesn't cover Ozempic or Mounjaro. Assessment & Plan (09/01/2024 6:41 PM CDT): Complicates all aspects of care. 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 Referral made to weight loss clinic during last admission in May. Reviewed prior notes from CRS. No definitive wt goal for surgery. Ideally should show some wt loss before reaching out to surgery gain. - Consider starting Victoza on discharge if renal function stabilizes. Unfortunately her insurance doesn't cover Ozempic or Mounjaro. Assessment & Plan (08/31/2024 2:46 PM CDT): Complicates all aspects of care. 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 Referral made to weight loss clinic during last admission in May. Reviewed prior notes from CRS. No definitive wt goal for surgery. Ideally should show some wt loss before reaching out to surgery gain. - Consider starting Victoza on discharge if renal function stabilizes. Unfortunately her insurance doesn't cover Ozempic or Mounjaro. Assessment & Plan (08/30/2024 8:14 AM CDT): Complicates all aspects of care. 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 Referral made to weight loss clinic during last admission in May. Reviewed prior notes from CRS. No definitive wt goal for surgery. Ideally should show some wt loss before reaching out to surgery gain. - Consider starting Victoza on discharge if renal function stabilizes. Unfortunately her insurance doesn't cover Ozempic or Mounjaro. Assessment & Plan (08/23/2024 1:59 PM CDT): Complicates all aspects of care. 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 Referral made to weight loss clinic during last admission in May. Reviewed prior notes from CRS. No definitive wt goal for surgery. Ideally should show some wt loss before reaching out to surgery gain. - Consider starting Victoza on discharge if renal function stabilizes. Unfortunately her insurance doesn't cover Ozempic or Mounjaro. Assessment & Plan (08/22/2024 2:16 PM CDT): Complicates all aspects of care. 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 Referral made to weight loss clinic during last admission in May. Reviewed prior notes from CRS. No definitive wt goal for surgery. Ideally should show some wt loss before reaching out to surgery gain. - Consider starting Victoza on discharge if renal function stabilizes. Unfortunately her insurance doesn't cover Ozempic or Mounjaro. Assessment & Plan (08/21/2024 3:20 PM CDT): Complicates all aspects of care. 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 Referral made to weight loss clinic during last admission in May. Reviewed prior notes from CRS. No definitive wt goal for surgery. Ideally should show some wt loss before reaching out to surgery gain. - Consider starting Victoza on discharge if renal function stabilizes. Unfortunately her insurance doesn't cover Ozempic or Mounjaro. Assessment & Plan (08/20/2024 4:38 PM CDT): Complicates all aspects of care. 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 Referral made to weight loss clinic during last admission in May. Reviewed prior notes from CRS. No definitive wt goal for surgery. Ideally should show some wt loss before reaching out to surgery gain. - Consider starting Victoza on discharge if renal function stabilizes. Unfortunately her insurance doesn't cover Ozempic or Mounjaro. Assessment & Plan (08/19/2024 4:21 PM CDT): Complicates all aspects of care. 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 Referral made to weight loss clinic during last admission in May. Reviewed prior notes from CRS. No definitive wt goal for surgery. Ideally should show some wt loss before reaching out to surgery gain. - Consider starting Victoza on discharge if renal function stabilizes. Unfortunately her insurance doesn't cover Ozempic or Mounjaro. Assessment & Plan (08/18/2024 12:51 PM CDT): Complicates all aspects of care. 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 Referral made to weight loss clinic during last admission in May. Reviewed prior notes from CRS. No definitive wt goal for surgery. Ideally should show some wt loss before reaching out to surgery gain. - Consider starting Victoza on discharge if renal function stabilizes. Unfortunately her insurance doesn't cover Ozempic or Mounjaro. Assessment & Plan (08/17/2024 11:39 AM CDT): Complicates all aspects of care. 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 Referral made to weight loss clinic during last admission in May. Reviewed prior notes from CRS. No definitive wt goal for surgery. Ideally should show some wt loss before reaching out to surgery gain. - Start viztoza after renal function stabilizes. Unfortunately her insurance doesn't cover Ozempic or Mounjaro. Assessment & Plan (08/16/2024 10:30 AM CDT): Complicates all aspects of care. 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 Referral made to weight loss clinic during last admission in May. Reviewed prior notes from CRS. No definitive wt goal for surgery. Ideally should show some wt loss before reaching out to surgery gain. - Start viztoza after renal function stabilizes. Unfortunately her insurance doesn't cover Ozempic or Mounjaro. Assessment & Plan (08/15/2024 7:54 AM CDT): Complicates all aspects of care. 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 Referral made to weight loss clinic during last admission in May. Reviewed prior notes from CRS. No definitive wt goal for surgery. Ideally should show some wt loss before reaching out to surgery gain. - Start viztoza after renal function stabilizes. Unfortunately her insurance doesn't cover Ozempic or Mounjaro. Assessment & Plan (08/14/2024 8:13 AM CDT): Complicates all aspects of care. 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 Referral made to weight loss clinic during last admission in May. Reviewed prior notes from CRS. No definitive wt goal for surgery. Ideally should show some wt loss before reaching out to surgery gain. - Start viztoza after renal function stabilizes. Unfortunately her insurance doesn't cover Ozempic or Mounjaro. Assessment & Plan (08/13/2024 1:27 PM CDT): Complicates all aspects of care. 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 Referral made to weight loss clinic during last admission in May. Reviewed prior notes from CRS. No definitive wt goal for surgery. Ideally should show some wt loss before reaching out to surgery gain. - Start viztoza after renal function stabilizes. Unfortunately her insurance doesn't cover Ozempic or Mounjaro. Assessment & Plan (08/12/2024 8:00 AM CDT): Complicates all aspects of care. 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 Referral made to weight loss clinic during last admission in May. Reviewed prior notes from CRS. No definitive wt goal for surgery. Ideally should show some wt loss before reaching out to surgery gain. - Start viztoza after renal function stabilizes. Unfortunately her insurance doesn't cover Ozempic or Mounjaro. Assessment & Plan (08/11/2024 2:05 PM CDT): Complicates all aspects of care. 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 Referral made to weight loss clinic during last admission in May. Reviewed prior notes from CRS. No definitive wt goal for surgery. Ideally should show some wt loss before reaching out to surgery gain. - Start viztoza after renal function stabilizes. Unfortunately her insurance doesn't cover Ozempic or Mounjaro. Assessment & Plan (08/10/2024 11:43 AM CDT): Complicates all aspects of care. 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 Referral made to weight loss clinic during last admission in May. Reviewed prior notes from CRS. No definitive wt goal for surgery. Ideally should show some wt loss before reaching out to surgery gain. - Start viztoza after renal function stabilizes. Unfortunately her insurance doesn't cover Ozempic or Mounjaro. Assessment & Plan (08/09/2024 10:35 AM CDT): Complicates all aspects of care. 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 Referral made to weight loss clinic during last admission in May. Reviewed prior notes from CRS. No definitive wt goal for surgery. Ideally should show some wt loss before reaching out to surgery gain. - Start viztoza after renal function stabilizes. Unfortunately her insurance doesn't cover Ozempic or Mounjaro. Assessment & Plan (08/08/2024 1:49 PM CDT): Complicates all aspects of care. 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 Referral made to weight loss clinic during last admission in May. Reviewed prior notes from [facility]. No definitive wt goal for surgery. Ideally should show some wt loss before reaching out to surgery gain. - Start viztoza after renal function stabilizes. Unfortunately her insurance doesn't cover Ozempic or Mounjaro. Assessment & Plan (08/07/2024 2:44 PM CDT): Complicates all aspects of care. 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 Referral made to weight loss clinic during last admission in May. Reviewed prior notes from [facility]. No definitive wt goal for surgery. Ideally should show some wt loss before reaching out to surgery gain. - Start viztoza after renal function stabilizes. Unfortunately her insurance doesn't cover Ozempic or Mounjaro. Assessment & Plan (08/06/2024 12:37 PM CDT): Complicates all aspects of care. 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 Referral made to weight loss clinic during last admission in May. Reviewed prior notes from [facility]. No definitive wt goal for surgery. Ideally should show some wt loss before reaching out to surgery gain. - Start viztoza after renal function stabilizes. Unfortunately her insurance doesn't cover Ozempic or Mounjaro. Assessment & Plan (08/04/2024 2:33 PM CDT): Complicates all aspects of care. 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 Referral made to weight loss clinic during last admission in May. Reviewed prior notes from [facility]. No definitive wt goal for surgery. Ideally should show some wt loss before reaching out to surgery gain. - Start viztoza after renal function stabilizes. Unfortunately her insurance doesn't cover Ozempic or Mounjaro. Assessment & Plan (08/03/2024 8:32 AM CDT): Complicates all aspects of care. 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 - Referral made to weight loss clinic during last admission in May - Start viztoza in patient after renal function stabilizes. Unfortunately her insurance doesn't cover Ozempic or Mounjaro. Assessment & Plan (08/02/2024 9:22 AM CDT): Complicates all aspects of care. 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 - Referral made to weight loss clinic during last admission in May viztoza in patient after renal function stabilizes. Unfortunately her insurance doesn't cover Ozempic or Mounjaro. Assessment & Plan (08/01/2024 12:29 PM CDT): Complicates all aspects of care. 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 - Referral made to weight loss clinic during last admission in May viztoza in patient after renal function stabilizes. Unfortunately her insurance doesn't cover Ozempic or Mounjaro. Assessment & Plan (07/31/2024 12:03 PM CDT): Complicates all aspects of care. 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 - Referral made to weight loss clinic during last admission in May viztoza in patient after renal function stabilizes. Unfortunately her insurance doesn't cover Ozempic or Mounjaro. Assessment & Plan (07/30/2024 12:46 PM CDT): Complicates all aspects of care. 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 - Referral made to weight loss clinic during last admission in May viztoza in patient after renal function stabilizes. Unfortunately her insurance doesn't cover Ozempic or Mounjaro. Assessment & Plan (07/29/2024 12:35 PM CDT): Complicates all aspects of care. 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 - Referral made to weight loss clinic during last admission in May viztoza in patient after renal function stabilizes. Unfortunately her insurance doesn't cover Ozempic or Mounjaro. Assessment & Plan (06/14/2024 8:43 AM CHEF): Complicates all aspects of care. Surgery rec weight management referral. Would benefit from GLP1/GIP. Complicated UTI (urinary tract infection) 2024 Assessment & Plan (09/29/2024 6:14 PM CDT): Has a history of recurrent UTIs, pyelonephritis, hydronephrosis s/p right uretral stenting, with colovesicular fistula as above. Kidney stones s/p cystoscopy/lithotripsy and bilateral ureteral stent placement (R on 08/05 and L on 08/12). - CT this admission with no hydronephrosis. Repeat CT 60/ also without hydronephrosis, improvement in mild right perinephric stranding - Initial UA suggestive of UTI, s/p empiric cefepime (09/14 - 09/16) - ID consulted; due to colovesical fistula, UA and urine cx are difficult to impossible to interpret -- recommend obtaining urine culture when patient is having lower urinary-tract symptoms and only use to endorse appropriate antibiotic coverage (not as diagnostic test) - Continue home mirabegron ER and oxybutnin. - Reported worsening dysuria, UA concerning for infection, Urine culture is growing Enterococcus faecium, only susceptible to linezolid (resistant to vanc). Received 2 days of linezolid, per mobile pharmacy would need prior authorization and is not covered--> discharged on 3 days of doxycycline (per culture intermediate) - Has ambulatory referral to ID on discharge Assessment & Plan (09/28/2024 5:35 PM CDT): Has a history of recurrent UTIs, pyelonephritis, hydronephrosis s/p right uretral stenting, with colovesicular fistula as above. Kidney stones s/p cystoscopy/lithotripsy and bilateral ureteral stent placement (R on 08/05 and L on 08/12). - CT this admission with no hydronephrosis. Repeat CT 60/4 also without hydronephrosis, improvement in mild right perinephric stranding - Initial UA suggestive of UTI, s/p empiric cefepime (09/14 - 09/16) - ID consulted; due to colovesical fistula, UA and urine cx are difficult to impossible to interpret -- recommend obtaining urine culture when patient is having lower urinary-tract symptoms and only use to endorse appropriate antibiotic coverage (not as diagnostic test) - Continue home mirabegron ER and oxybutnin. - Reported worsening dysuria, UA concerning for infection, Urine culture is growing Enterococcus faecium, only susceptible to linezolid (resistant to vanc). Start oral linezolid plan for 5 days of treatment. Plan to with antibiotic stewardship team versus re-engage ID tomorrow Assessment & Plan (09/27/2024 5:51 PM CDT): Has a history of recurrent UTIs, pyelonephritis, hydronephrosis s/p right uretral stenting, with colovesicular fistula as above. Kidney stones s/p cystoscopy/lithotripsy and bilateral ureteral stent placement (R on 08/05 and L on 08/12). - CT this admission with no hydronephrosis. Repeat CT also without hydronephrosis, improvement in mild right perinephric stranding - Initial UA suggestive of UTI, s/p empiric cefepime (09/14 - 09/16) - ID consulted; due to colovesical fistula, UA and urine cx are difficult to impossible to interpret -- recommend obtaining urine culture when patient is having lower urinary-tract symptoms and only use to endorse appropriate antibiotic coverage (not as diagnostic test) - Continue home mirabegron ER and oxybutnin. - Reported worsening dysuria, UA concerning for infection, Urine culture is growing Enterococcus faecium, only susceptible to linezolid (resistant to vanc). Start oral linezolid plan for 5 days of treatment. Plan to with antibiotic stewardship team versus re-engage ID Assessment & Plan (09/26/2024 3:31 PM CDT): Has a history of recurrent UTIs, pyelonephritis, hydronephrosis s/p right uretral stenting, with colovesicular fistula as above. Kidney stones s/p cystoscopy/lithotripsy and bilateral ureteral stent placement (R on 08/05 and L on 08/12). - CT this admission with no hydronephrosis - Initial UA suggestive of UTI, s/p empiric cefepime (09/14 - 09/16) - ID consulted; due to colovesical fistula, UA and urine cx are difficult to impossible to interpret -- recommend obtaining urine culture when patient is having lower urinary-tract symptoms and only use to endorse appropriate antibiotic coverage (not as diagnostic test) - Continue home mirabegron ER and oxybutnin. - Reports slightly worsening dysuria, UA concerning for infection (clinical concern is not high), she already received IV ceftriaxone for at least 3 days as above. Urine culture is growing Enterococcus faecium, await sensitivity results; we will likely discuss with antibiotic stewardship team versus re-engage ID when sensitivity results are back. Assessment & Plan (09/25/2024 5:06 PM CDT): Has a history of recurrent UTIs, pyelonephritis, hydronephrosis s/p right uretral stenting, with colovesicular fistula as above. Kidney stones s/p cystoscopy/lithotripsy and bilateral ureteral stent placement (R on 08/05 and L on 08/12). - CT this admission with no hydronephrosis - Initial UA suggestive of UTI, s/p empiric cefepime (09/14 - 09/16) - ID consulted; due to colovesical fistula, UA and urine cx are difficult to impossible to interpret -- recommend obtaining urine culture when patient is having lower urinary-tract symptoms and only use to endorse appropriate antibiotic coverage (not as diagnostic test) - Continue home mirabegron ER and oxybutnin. - Reports slightly worsening dysuria, UA concerning for infection (clinical concern is not high), urine culture is pending. Patient has already been receiving IV ceftriaxone as above. Assessment & Plan (09/24/2024 8:24 AM CDT): Has a history of recurrent UTIs, pyelonephritis, hydronephrosis s/p right uretral stenting, with colovesicular fistula as above. Kidney stones s/p cystoscopy/lithotripsy and bilateral ureteral stent placement (R on 08/05 and L on 08/12). - CT this admission with no hydronephrosis - Initial UA suggestive of UTI, s/p empiric cefepime (09/14 - 09/16) - ID consulted; due to colovesical fistula, UA and urine cx are difficult to impossible to interpret -- recommend obtaining urine culture when patient is having lower urinary-tract symptoms and only use to endorse appropriate antibiotic coverage (not as diagnostic test) - Continue home mirabegron ER and oxybutnin. - Continue to monitor for lower-urinary tract symptoms, currently asymptomatic Assessment & Plan (09/23/2024 7:41 PM CDT): Has a history of recurrent UTIs, pyelonephritis, hydronephrosis s/p right uretral stenting, with colovesicular fistula as above. Kidney stones s/p cystoscopy/lithotripsy and bilateral ureteral stent placement (R on 08/05 and L on 08/12). - CT this admission with no hydronephrosis - Initial UA suggestive of UTI, s/p empiric cefepime (09/14 - 09/16) - ID consulted; due to colovesical fistula, UA and urine cx are difficult to impossible to interpret -- recommend obtaining urine culture when patient is having lower urinary-tract symptoms and only use to endorse appropriate antibiotic coverage (not as diagnostic test) - Continue home mirabegron ER and oxybutnin. - Continue to monitor for lower-urinary tract symptoms, currently asymptomatic Assessment & Plan (09/22/2024 1:19 PM CDT): Has a history of recurrent UTIs, pyelonephritis, hydronephrosis s/p right uretral stenting, with colovesicular fistula as above. Kidney stones s/p cystoscopy/lithotripsy and bilateral ureteral stent placement (R on 08/05 and L on 08/12). - CT this admission with no hydronephrosis - Initial UA suggestive of UTI, s/p empiric cefepime (09/14 - 09/16) - ID consulted; due to colovesical fistula, UA and urine cx are difficult to impossible to interpret -- recommend obtaining urine culture when patient is having lower urinary-tract symptoms and only use to endorse appropriate antibiotic coverage (not as diagnostic test) - Continue home mirabegron ER and oxybutnin. - Continue to monitor for lower-urinary tract symptoms Assessment & Plan (09/21/2024 7:12 AM CDT): Has a history of recurrent UTIs, pyelonephritis, hydronephrosis s/p right uretral stenting. Kidney stones s/p cystoscopy/lithotripsy and bilateral ureteral stent placement (R on 08/05 and L on 08/12). Patient currently denies any lower urinary tract symptoms. - CT this admission with no hydronephrosis - Initial UA suggestive of UTI, s/p empiric cefepime (09/14 - 09/16) - ID following; due to colovesical fistula, UA and urine cx are difficult to impossible to interpret. - Send urine culture when patient is having lower urinary-tract symptoms and only use to endorse appropriate antibiotic coverage (not as diagnostic test) - Continue home mirabegron ER and oxybutnin. - Continue to monitor for lower-urinary tract symptoms Assessment & Plan (09/20/2024 8:17 AM CDT): Has a history of recurrent UTIs, pyelonephritis, hydronephrosis s/p right uretral stenting. Kidney stones s/p cystoscopy/lithotripsy and bilateral ureteral stent placement (R on 08/05 and L on 08/12). Patient currently denies any lower urinary tract symptoms. - CT this admission with no hydronephrosis - Initial UA suggestive of UTI, s/p empiric cefepime (09/14 - 09/16) - ID following; due to colovesical fistula, UA and urine cx are difficult to impossible to interpret. - Send urine culture when patient is having lower urinary-tract symptoms and only use to endorse appropriate antibiotic coverage (not as diagnostic test) - Continue home mirabegron ER and oxybutnin. - Continue to monitor for lower-urinary tract symptoms Assessment & Plan (09/19/2024 2:09 PM CDT): Has a history of recurrent UTIs, pyelonephritis, hydronephrosis s/p right uretral stenting. Kidney stones s/p cystoscopy/lithotripsy and bilateral ureteral stent placement (R on 08/05 and L on 08/12). Patient currently denies any lower urinary tract symptoms. - CT this admission with no hydronephrosis - Initial UA suggestive of UTI, s/p empiric cefepime (09/14 - 09/16) - ID following; due to colovesical fistula, UA and urine cx are difficult to impossible to interpret. - Send urine culture when patient is having lower urinary-tract symptoms and only use to endorse appropriate antibiotic coverage (not as diagnostic test) - Continue home mirabegron ER and oxybutnin. - Continue to monitor for lower-urinary tract symptoms Assessment & Plan (09/19/2024 4:50 AM CDT): Regarding her UTIs, it appears that she has both symptomatic and asymptomatic periods. Due to her colovesical fistula UA and UCx will be difficult to impossible to interpret. As an example, the UAs on 09/14 were collected about 2.5 hours apart and are dramatically different (SG went from 1.008->1.029). Would recommend UCx be sent when having LUTS symptoms and only used to ensure appropriate antibiotic coverage (not as a diagnostic test). Patient has good awareness of symptoms and knows when she has LUTS concerning for UTI. That said, I believe some of her UTI episodes are concentration based as they will self-resolve at times. Better hydration was discussed with patient as this will result in more frequent flushing of the urinary system and lower the risk of symptomatic UTIs. Assessment & Plan (09/17/2024 1:14 PM CDT): Regarding her UTIs, it appears that she has both symptomatic and asymptomatic periods. Due to her colovesical fistula UA and UCx will be difficult to impossible to interpret. As an example, the UAs on 09/14 were collected about 2.5 hours apart and are dramatically different (SG went from 1.008->1.029). Would recommend UCx be sent when having LUTS symptoms and only used to ensure appropriate antibiotic coverage (not as a diagnostic test). Patient has good awareness of symptoms and knows when she has LUTS concerning for UTI. That said, I believe some of her UTI episodes are concentration based as they will self-resolve at times. Better hydration was discussed with patient as this will result in more frequent flushing of the urinary system and lower the risk of symptomatic UTIs. Assessment & Plan (09/14/2024 10:52 PM CDT): Has a history of recurrent UTIs, pyelonephritis, hydronephrosis s/p R uretral stenting. Kidney stones s/p cystoscopy/ lithotripsy and bilateral ureteral stent placement (R on 08/05 and L on 4/22). - CT this admission with no hydronephrosis. - UA suggestive of UTI, start on cefepime empirically. - Continue home mirabegron ER and oxybutnin. 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 Given systemic sxs and reports of fever, will treat with IV abx. CT without evidence of pyelo, but notes staghorn-appearing stone in L kidney and 5 mm stone in right, without hydro. Admitting physician spoke w reading room, the scan is limited due to significant renal scarring, but they confirm no definitive evidence of pyelo. Given mild L CVA tenderness, clinically suspect pyelo. Given Left staghorn stone, at risk for superinfection. - ID c/s: zosyn (06/13-), bactrim (06/16-06/28) for 14d course. Though there is a fistula, ok to treat by culture (connection does not imply infection). Depression with anxiety 06/14/2024 Assessment & Plan (09/29/2024 7:57 AM CDT): - Continue home Lexapro and nightly Ambien. Assessment & Plan (09/28/2024 8:11 AM CDT): - Continue home Lexapro and nightly Ambien. Assessment & Plan (09/27/2024 5:51 PM CDT): - Continue home Lexapro and nightly Ambien. Assessment & Plan (09/26/2024 3:31 PM CDT): - Continue home Lexapro and nightly Ambien. Patient reports anxiety iso pain would consider adjustment of her medication after final recommendations from pain management. Assessment & Plan (09/25/2024 8:09 AM CDT): - Continue home Lexapro and nightly Ambien Assessment & Plan (09/24/2024 8:24 AM CDT): - Continue home Lexapro and nightly Ambien Assessment & Plan (09/23/2024 7:41 PM CDT): - Continue home Lexapro and nightly Ambien Assessment & Plan (09/22/2024 7:06 AM CDT): - continue home lexapro and nightly ambien Assessment & Plan (09/21/2024 7:12 AM CDT): - continue home lexapro and nightly ambien Assessment & Plan (09/20/2024 8:17 AM CDT): - continue home lexapro and nightly ambien Assessment & Plan (09/19/2024 2:09 PM CDT): - continue home lexapro and nightly ambien Assessment & Plan (09/14/2024 10:52 PM CDT): Continue home loxabro and nightly ambein. Assessment & Plan (09/05/2024 1:34 PM CDT): Continue Lexapro Assessment & Plan (09/04/2024 3:38 PM CDT): Continue Lexapro Assessment & Plan (09/04/2024 12:00 AM CDT): Continue Lexapro Assessment & Plan (09/02/2024 10:16 PM CDT): Continue Lexapro Assessment & Plan (09/01/2024 6:41 PM CDT): Continue Lexapro Assessment & Plan (08/31/2024 7:41 AM CDT): Continue Lexapro Assessment & Plan (08/30/2024 8:14 AM CDT): Continue Lexapro Assessment & Plan (08/23/2024 1:59 PM CDT): Continue Lexapro Assessment & Plan (08/22/2024 2:16 PM CDT): Continue Lexapro Assessment & Plan (08/21/2024 3:20 PM CDT): Continue Lexapro Assessment & Plan (08/20/2024 4:38 PM CDT): Continue Lexapro Assessment & Plan (08/19/2024 4:21 PM CDT): Continue Lexapro Assessment & Plan (08/18/2024 9:06 AM CDT): Continue Lexapro Assessment & Plan (08/17/2024 11:39 AM CDT): Continue Lexapro Assessment & Plan (08/16/2024 10:30 AM CDT): Continue Lexapro Assessment & Plan (08/15/2024 7:54 AM CDT): Continue Lexapro Assessment & Plan (08/14/2024 8:13 AM CDT): Continue Lexapro Assessment & Plan (08/13/2024 1:27 PM CDT): Continue Lexapro Assessment & Plan (08/12/2024 8:00 AM CDT): Continue Lexapro Assessment & Plan (08/11/2024 2:05 PM CDT): Continue Lexapro Assessment & Plan (08/10/2024 11:43 AM CDT): Continue Lexapro Assessment & Plan (08/09/2024 10:35 AM CDT): Continue Lexapro Assessment & Plan (08/08/2024 1:49 PM CDT): Continue Lexapro Assessment & Plan (08/07/2024 2:44 PM CDT): Continue Lexapro Assessment & Plan (08/06/2024 12:37 PM CDT): Continue Lexapro Assessment & Plan (08/04/2024 2:33 PM CDT): Continue Lexapro Assessment & Plan (08/03/2024 8:32 AM CDT): Continue Lexapro Assessment & Plan (08/02/2024 9:22 AM CDT): Continue Lexapro Assessment & Plan (08/01/2024 12:29 PM CDT): Continue Lexapro Assessment & Plan (07/31/2024 12:03 PM CDT): Continue Lexapro Assessment & Plan (07/30/2024 12:46 PM CDT): Continue Lexapro Assessment & Plan (07/29/2024 12:35 PM CDT): Continue Lexapro Assessment & Plan (06/14/2024 8:45 AM CHEF): Continue home lexapro Restless legs 06/14/2024 Assessment & Plan (09/22/2024 7:06 AM CDT): - continue home gabapentin Assessment & Plan (09/21/2024 7:12 AM CDT): - continue home gabapentin Assessment & Plan (09/20/2024 8:17 AM CDT): - continue home gabapentin Assessment & Plan (09/19/2024 2:09 PM CDT): - continue home gabapentin Assessment & Plan (09/14/2024 10:52 PM CDT): Manages at home with gabapentin, continue this admission. Assessment & Plan (09/05/2024 1:34 PM CDT): Takes gabapentin 600 mg TID at home - 300mg tid based on current creatinine clearance Assessment & Plan (09/04/2024 3:38 PM CDT): Takes gabapentin 600 mg TID at home - 300mg tid based on current creatinine clearance Assessment & Plan (09/04/2024 12:00 AM CDT): Takes gabapentin 600 mg TID at home - 300mg tid based on current creatinine clearance Assessment & Plan (09/02/2024 10:16 PM CDT): Takes gabapentin 600 mg TID at home - 300mg tid based on current creatinine clearance Assessment & Plan (09/01/2024 6:41 PM CDT): Takes gabapentin 600 mg TID at home - 300mg tid based on current creatinine clearance Assessment & Plan (08/31/2024 7:41 AM CDT): Takes gabapentin 600 mg TID at home - 300mg tid based on current creatinine clearance Assessment & Plan (08/30/2024 8:14 AM CDT): Takes gabapentin 600 mg TID at home - 300mg tid based on current creatinine clearance Assessment & Plan (08/23/2024 1:59 PM CDT): Takes gabapentin 600 mg TID at home - 300mg tid based on current creatinine clearance Assessment & Plan (08/22/2024 2:16 PM CDT): Takes gabapentin 600 mg TID at home - 300mg tid based on current creatinine clearance Assessment & Plan (08/21/2024 3:20 PM CDT): Takes gabapentin 600 mg TID at home - 300mg tid based on current creatinine clearance Assessment & Plan (08/20/2024 4:38 PM CDT): Takes gabapentin 600 mg TID at home - 300mg tid based on current creatinine clearance Assessment & Plan (08/19/2024 4:21 PM CDT): Takes gabapentin 600 mg TID at home - 300mg tid based on current creatinine clearance Assessment & Plan (08/18/2024 9:06 AM CDT): Takes gabapentin 600 mg TID at home - 300mg tid based on current creatinine clearance Assessment & Plan (08/17/2024 11:39 AM CDT): Takes gabapentin 600 mg TID at home - 300mg tid based on current creatinine clearance Assessment & Plan (08/16/2024 10:30 AM CDT): Takes gabapentin 600 mg TID at home - 300mg tid based on current creatinine clearance Assessment & Plan (08/15/2024 7:54 AM CDT): Takes gabapentin 600 mg TID at home - Increased to 300mg tid based on current creatinine clearance Assessment & Plan (08/14/2024 8:13 AM CDT): Takes gabapentin 600 mg TID at home - Increased to 200mg tid based on current creatinine clearance Assessment & Plan (08/13/2024 1:27 PM CDT): Takes gabapentin 600 mg TID at home - Dose reduce gabapentin to 100 mg/day on account of renal function, will increase as CrCl improves Assessment & Plan (08/12/2024 8:00 AM CDT): Takes gabapentin 600 mg TID at home - Dose reduce gabapentin to 100 mg/day on account of renal function, will increase as CrCl improves Assessment & Plan (08/11/2024 2:05 PM CDT): Takes gabapentin 600 mg TID at home - Dose reduce gabapentin to 100 mg/day on account of renal function, will increase as CrCl improves Assessment & Plan (08/10/2024 11:43 AM CDT): Takes gabapentin 600 mg TID at home - Dose reduce gabapentin to 100 mg/day on account of renal function, will increase as CrCl improves Assessment & Plan (08/09/2024 10:35 AM CDT): Takes gabapentin 600 mg TID at home - Dose reduce gabapentin to 100 mg/day on account of renal function, will increase as CrCl improves Assessment & Plan (08/08/2024 1:49 PM CDT): Takes gabapentin 600 mg TID at home - Dose reduce gabapentin to 100 mg/day on account of renal function, will increase as CrCl improves Assessment & Plan (08/07/2024 2:44 PM CDT): Takes gabapentin 600 mg TID at home - Dose reduce gabapentin to 100 mg/day on account of renal function, will increase as CrCl improves Assessment & Plan (08/06/2024 12:37 PM CDT): Takes gabapentin 600 mg TID at home - Dose reduce gabapentin to 100 mg/day on account of renal function, will increase as CrCl improves Assessment & Plan (08/04/2024 2:33 PM CDT): Takes gabapentin 600 mg TID at home - Dose reduce gabapentin to 100 mg/day on account of renal function, will increase as CrCl improves Assessment & Plan (08/03/2024 8:32 AM CDT): Takes gabapentin 600 mg TID at home - Dose reduce gabapentin to 100 mg/day on account of renal function, will increase as CrCl improves Assessment & Plan (08/02/2024 9:22 AM CDT): Takes gabapentin 600 mg TID at home - Dose reduce gabapentin to 100 mg/day on account of renal function, will increase as CrCl improves Assessment & Plan (08/01/2024 12:29 PM CDT): Takes gabapentin 600 mg TID at home - Dose reduce gabapentin to 100 mg/day on account of renal function, will increase as CrCl improves Assessment & Plan (07/31/2024 12:03 PM CDT): Takes gabapentin 600 mg TID at home - Dose reduce gabapentin to 100 mg/day on account of renal function, will increase as CrCl improves Assessment & Plan (07/30/2024 12:46 PM CDT): Takes gabapentin 600 mg TID at home - Dose reduce gabapentin to 100 mg/day on account of renal function, will increase as CrCl improves Assessment & Plan (07/29/2024 12:35 PM CDT): Takes gabapentin 600 mg TID at home - Dose reduce gabapentin to 100 mg/day on account of renal function, will increase as CrCl improves Assessment & Plan (07/16/2024 9:03 PM CDT): Takes gabapentin at home - Dose reduce to 100 TID due to renal dysfunction Assessment & Plan (06/14/2024 10:20 AM CHEF): Home gabapentin Ventral hernia 06/14/2024 Assessment & Plan (09/29/2024 7:57 AM CDT): Present on admission. No obstruction or incarceration on CT. - Management of abdominal pain as above - outpatient follow-up with Dr. Kearns, will need appointment rescheduled Assessment & Plan (09/28/2024 8:11 AM CDT): Present on admission. No obstruction or incarceration on CT. - Management of abdominal pain as above - outpatient follow-up with Dr. Kearns, will need appointment rescheduled Assessment & Plan (09/27/2024 5:51 PM CDT): Present on admission. No obstruction or incarceration on CT. - Management of abdominal pain as above - outpatient follow-up with Dr. Kearns, will need appointment rescheduled Assessment & Plan (09/26/2024 3:31 PM CDT): Present on admission. No obstruction or incarceration on CT. - mgmt of abdominal pain as above - outpatient follow-up with Dr. Kearns, will need appointment rescheduled Assessment & Plan (09/25/2024 8:09 AM CDT): Present on admission. No obstruction or incarceration on CT. - mgmt of abdominal pain as above - outpatient follow-up with Dr. Kearns, will need appointment rescheduled Assessment & Plan (09/24/2024 8:24 AM CDT): Present on admission. No obstruction or incarceration on CT. - mgmt of abdominal pain as above - outpatient follow-up with Dr. Kearns, will need appointment rescheduled Assessment & Plan (09/23/2024 7:41 PM CDT): Present on admission. No obstruction or incarceration on CT. - mgmt of abdominal pain as above - outpatient follow-up with Dr. Kearns, will need appointment rescheduled Assessment & Plan (09/22/2024 1:19 PM CDT): Present on admission. No obstruction or incarceration on CT. - mgmt of abdominal pain as above - outpatient follow-up with Dr. Kearns, will need appointment rescheduled Assessment & Plan (09/21/2024 7:12 AM CDT): Present on admission. No obstruction or incarceration on CT. - pain control as above - OP follow-up with Dr. Kearns, will need appointment rescheduled Assessment & Plan (09/20/2024 8:17 AM CDT): Present on admission. No obstruction or incarceration on CT. - pain control as above - OP follow-up with Dr. Kearns, will need appointment rescheduled Assessment & Plan (09/19/2024 2:09 PM CDT): Present on admission. No obstruction or incarceration on CT. - pain control as above - OP follow-up with Dr. Kearns, will need appointment rescheduled Assessment & Plan (09/14/2024 10:52 PM CDT): Present on admission. No obstruction or incarceration on CT. - OP F/U with Dr. Kearns, will need appointment rescheduled. Assessment & Plan (09/05/2024 1:34 PM CDT): Of note, hx of ventral hernia. General surgery outpatient, last appointment 07/02/2024. She has ventral hernia causing pain but without obstruction, not surgical candidate due to obesity at this time -hernia not reducible. No concern of current ischemia -follow up general surgery clinic outpatient Assessment & Plan (09/04/2024 3:38 PM CDT): Of note, hx of ventral hernia. General surgery outpatient, last appointment 07/02/2024. She has ventral hernia causing pain but without obstruction, not surgical candidate due to obesity at this time -hernia not reducible. No concern of current ischemia -follow up general surgery clinic outpatient Assessment & Plan (09/04/2024 12:00 AM CDT): Of note, hx of ventral hernia. General surgery outpatient, last appointment 07/02/2024. She has ventral hernia causing pain but without obstruction, not surgical candidate due to obesity at this time -hernia not reducible. No concern of current ischemia -follow up general surgery clinic outpatient Assessment & Plan (09/02/2024 10:16 PM CDT): Of note, hx of ventral hernia. General surgery outpatient, last appointment 07/02/2024. She has ventral hernia causing pain but without obstruction, not surgical candidate due to obesity at this time -hernia not reducible. No concern of current ischemia -follow up general surgery clinic outpatient Assessment & Plan (09/01/2024 6:41 PM CDT): Of note, hx of ventral hernia. General surgery outpatient, last appointment 07/02/2024. She has ventral hernia causing pain but without obstruction, not surgical candidate due to obesity at this time -hernia not reducible. No concern of current ischemia -follow up general surgery clinic outpatient Assessment & Plan (08/31/2024 7:41 AM CDT): Of note, hx of ventral hernia. General surgery outpatient, last appointment 07/02/2024. She has ventral hernia causing pain but without obstruction, not surgical candidate due to obesity at this time -hernia not reducible. No concern of current ischemia -follow up general surgery clinic outpatient Assessment & Plan (08/30/2024 8:14 AM CDT): Of note, hx of ventral hernia. General surgery outpatient, last appointment 07/02/2024. She has ventral hernia causing pain but without obstruction, not surgical candidate due to obesity at this time -hernia not reducible. No concern of current ischemia -follow up general surgery clinic outpatient Assessment & Plan (08/23/2024 1:59 PM CDT): Of note, hx of ventral hernia. General surgery outpatient, last appointment 07/02/2024. She has ventral hernia causing pain but without obstruction, not surgical candidate due to obesity at this time -hernia not reducible. No concern of current ischemia -follow up general surgery clinic outpatient Assessment & Plan (08/22/2024 2:16 PM CDT): Of note, hx of ventral hernia. General surgery outpatient, last appointment 07/02/2024. She has ventral hernia causing pain but without obstruction, not surgical candidate due to obesity at this time -hernia not reducible. No concern of current ischemia -follow up general surgery clinic outpatient Assessment & Plan (08/21/2024 3:20 PM CDT): Of note, hx of ventral hernia. General surgery outpatient, last appointment 07/02/2024. She has ventral hernia causing pain but without obstruction, not surgical candidate due to obesity at this time -hernia not reducible. No concern of current ischemia -follow up general surgery clinic outpatient Assessment & Plan (08/20/2024 4:38 PM CDT): Of note, hx of ventral hernia. General surgery outpatient, last appointment 07/02/2024. She has ventral hernia causing pain but without obstruction, not surgical candidate due to obesity at this time -hernia not reducible. No concern of current ischemia -follow up general surgery clinic outpatient Assessment & Plan (08/19/2024 4:21 PM CDT): Of note, hx of ventral hernia. General surgery outpatient, last appointment 07/02/2024. She has ventral hernia causing pain but without obstruction, not surgical candidate due to obesity at this time -hernia not reducible. No concern of current ischemia -follow up general surgery clinic outpatient Assessment & Plan (08/18/2024 9:06 AM CDT): Of note, hx of ventral hernia. General surgery outpatient, last appointment 07/02/2024. She has ventral hernia causing pain but without obstruction, not surgical candidate due to obesity at this time -hernia not reducible. No concern of current ischemia -follow up general surgery clinic outpatient Assessment & Plan (08/17/2024 11:39 AM CDT): Of note, hx of ventral hernia. General surgery outpatient, last appointment 07/02/2024. She has ventral hernia causing pain but without obstruction, not surgical candidate due to obesity at this time -hernia not reducible. No concern of current ischemia -follow up general surgery clinic outpatient Assessment & Plan (08/16/2024 10:30 AM CDT): Of note, hx of ventral hernia. General surgery outpatient, last appointment 07/02/2024. She has ventral hernia causing pain but without obstruction, not surgical candidate due to obesity at this time -hernia not reducible. No concern of current ischemia -follow up general surgery clinic outpatient Assessment & Plan (08/15/2024 7:54 AM CDT): Of note, hx of ventral hernia. General surgery outpatient, last appointment 07/02/2024. She has ventral hernia causing pain but without obstruction, not surgical candidate due to obesity at this time -hernia not reducible. No concern of current ischemia -follow up general surgery clinic outpatient Assessment & Plan (08/14/2024 8:13 AM CDT): Of note, hx of ventral hernia. General surgery outpatient, last appointment 07/02/2024. She has ventral hernia causing pain but without obstruction, not surgical candidate due to obesity at this time -hernia not reducible. No concern of current ischemia -follow up general surgery clinic outpatient Assessment & Plan (08/13/2024 1:27 PM CDT): Of note, hx of ventral hernia. General surgery outpatient, last appointment 07/02/2024. She has ventral hernia causing pain but without obstruction, not surgical candidate due to obesity at this time -hernia not reducible. No concern of current ischemia -follow up general surgery clinic outpatient Assessment & Plan (08/12/2024 12:36 PM CDT): Of note, hx of ventral hernia. General surgery outpatient, last appointment 07/02/2024. She has ventral hernia causing pain but without obstruction, not surgical candidate due to obesity at this time -hernia not reducible. No concern of current ischemia -follow up general surgery clinic outpatient Assessment & Plan (08/11/2024 2:05 PM CDT): Of note, hx of ventral hernia. General surgery outpatient, last appointment 07/02/2024. She has ventral hernia causing pain but without obstruction, not surgical candidate due to obesity at this time -hernia not reducible. No concern of current ischemia -follow up general surgery clinic outpatient Assessment & Plan (08/10/2024 11:43 AM CDT): Of note, hx of ventral hernia. General surgery outpatient, last appointment 07/02/2024. She has ventral hernia causing pain but without obstruction, not surgical candidate due to obesity at this time -hernia not reducible. No concern of current ischemia -follow up general surgery clinic outpatient Assessment & Plan (08/09/2024 10:35 AM CDT): Of note, hx of ventral hernia. General surgery outpatient, last appointment 07/02/2024. She has ventral hernia causing pain but without obstruction, not surgical candidate due to obesity at this time -hernia not reducible. No concern of current ischemia -follow up general surgery clinic outpatient Assessment & Plan (08/08/2024 1:49 PM CDT): Of note, hx of ventral hernia. General surgery outpatient, last appointment 07/02/2024. She has ventral hernia causing pain but without obstruction, not surgical candidate due to obesity at this time -hernia not reducible. No concern of current ischemia -follow up general surgery clinic outpatient Assessment & Plan (08/07/2024 2:44 PM CDT): Of note, hx of ventral hernia. General surgery outpatient, last appointment 07/02/2024. She has ventral hernia causing pain but without obstruction, not surgical candidate due to obesity at this time -hernia not reducible. No concern of current ischemia -follow up general surgery clinic outpatient Assessment & Plan (08/06/2024 12:37 PM CDT): Of note, hx of ventral hernia. General surgery outpatient, last appointment 07/02/2024. She has antral hernia causing pain but without obstruction, not surgical candidate due to obesity at this time Assessment & Plan (06/14/2024 10:23 AM CHEF): No evidence of incarceration or strangulation on CT. 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 Palpitations 11/09/2023 Morbid obesity 11/09/2023 Type 2 diabetes mellitus 11/07/2023 Vitamin D deficiency 11/07/2023 Hyperlipidemia 11/07/2023 Diverticulosis of colon 11/05/2023 Resolved Problems Problem Noted Date Diagnosed Date Resolved Date UTI (urinary tract infection) 02/24/2025 02/24/2025 Acute encephalopathy- resolved 12/31/2024 01/18/2025 Assessment & Plan (01/17/2025 2:32 PM CDT): -12/31- worsening confusion with asterixis, vbg with pH 7.2 , HCO3 15, pCO2 40 suggestive of metabolic encephalopathy 2/2 RANDOLPH and metabolic acidosis with impaired respiratory compensation due to oversedation with opioids/BZDs 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- Held all sedating meds - oxycodone IR scheduled and prn , lyrica, compazine [ also held oxycontin, trazodone, clonazepam earlier the same day ] - bicarb injection 8.4% 150meq X 1 stat and nephro consulted - 01/01- - AMS resolved, resumed oxycodone IR 10 mg q4h , switch to oxycontin once RANDOLPH improved, resumed lyrica at 50 mg BID, c/w dilaudid iv prn, continue to hold clonazepam 01/02 - resumed trazodone - AMS resolved Assessment & Plan (01/16/2025 9:26 PM CDT): -12/31- worsening confusion with asterixis, vbg with pH 7.2 , HCO3 15, pCO2 40 suggestive of metabolic encephalopathy 2/2 RANDOLPH and metabolic acidosis with impaired respiratory compensation due to oversedation with opioids/BZDs 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- Held all sedating meds - oxycodone IR scheduled and prn , lyrica, compazine [ also held oxycontin, trazodone, clonazepam earlier the same day ] - bicarb injection 8.4% 150meq X 1 stat and nephro consulted - 01/01- - AMS resolved, resumed oxycodone IR 10 mg q4h , switch to oxycontin once RANDOLPH improved, resumed lyrica at 50 mg BID, c/w dilaudid iv prn, continue to hold clonazepam 01/02 - resumed trazodone - AMS resolved Assessment & Plan (01/15/2025 9:08 PM CDT): -12/31- worsening confusion with asterixis, vbg with pH 7.2 , HCO3 15, pCO2 40 suggestive of metabolic encephalopathy 2/2 RANDOLPH and metabolic acidosis with impaired respiratory compensation due to oversedation with opioids/BZDs 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- Held all sedating meds - oxycodone IR scheduled and prn , lyrica, compazine [ also held oxycontin, trazodone, clonazepam earlier the same day ] - bicarb injection 8.4% 150meq X 1 stat and nephro consulted - 01/01- - AMS resolved, resumed oxycodone IR 10 mg q4h , switch to oxycontin once RANDOLPH improved, resumed lyrica at 50 mg BID, c/w dilaudid iv prn, continue to hold clonazepam 01/02 - resumed trazodone - AMS resolved Assessment & Plan (01/14/2025 11:06 PM CDT): -12/31- worsening confusion with asterixis, vbg with pH 7.2 , HCO3 15, pCO2 40 suggestive of metabolic encephalopathy 2/2 RANDOLPH and metabolic acidosis with impaired respiratory compensation due to oversedation with opioids/BZDs 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- Held all sedating meds - oxycodone IR scheduled and prn , lyrica, compazine [ also held oxycontin, trazodone, clonazepam earlier the same day ] - bicarb injection 8.4% 150meq X 1 stat and nephro consulted - 01/01- - AMS resolved, resumed oxycodone IR 10 mg q4h , switch to oxycontin once RANDOLPH improved, resumed lyrica at 50 mg BID, c/w dilaudid iv prn, continue to hold clonazepam 01/02 - resumed trazodone - AMS resolved Assessment & Plan (01/13/2025 8:04 PM CDT): -12/31- worsening confusion with asterixis, vbg with pH 7.2 , HCO3 15, pCO2 40 suggestive of metabolic encephalopathy 2/2 RANDOLPH and metabolic acidosis with impaired respiratory compensation due to oversedation with opioids/BZDs 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- Held all sedating meds - oxycodone IR scheduled and prn , lyrica, compazine [ also held oxycontin, trazodone, clonazepam earlier the same day ] - bicarb injection 8.4% 150meq X 1 stat and nephro consulted - 01/01- - AMS resolved, resumed oxycodone IR 10 mg q4h , switch to oxycontin once RANDOLPH improved, resumed lyrica at 50 mg BID, c/w dilaudid iv prn, continue to hold clonazepam 01/02 - resumed trazodone - AMS resolved Assessment & Plan (01/12/2025 1:20 PM CDT): -12/31- worsening confusion with asterixis, vbg with pH 7.2 , HCO3 15, pCO2 40 suggestive of metabolic encephalopathy 2/2 RANDOLPH and metabolic acidosis with impaired respiratory compensation due to oversedation with opioids/BZDs 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- Held all sedating meds - oxycodone IR scheduled and prn , lyrica, compazine [ also held oxycontin, trazodone, clonazepam earlier the same day ] - bicarb injection 8.4% 150meq X 1 stat and nephro consulted - 01/01- - AMS resolved, resumed oxycodone IR 10 mg q4h , switch to oxycontin once RANDOLPH improved, resumed lyrica at 50 mg BID, c/w dilaudid iv prn, continue to hold clonazepam 01/02 - resumed trazodone - AMS resolved Assessment & Plan (01/11/2025 12:18 PM CDT): -12/31- worsening confusion with asterixis, vbg with pH 7.2 , HCO3 15, pCO2 40 suggestive of metabolic encephalopathy 2/2 RANDOLPH and metabolic acidosis with impaired respiratory compensation due to oversedation with opioids/BZDs 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- Held all sedating meds - oxycodone IR scheduled and prn , lyrica, compazine [ also held oxycontin, trazodone, clonazepam earlier the same day ] - bicarb injection 8.4% 150meq X 1 stat and nephro consulted - 01/01- - AMS resolved, resumed oxycodone IR 10 mg q4h , switch to oxycontin once RANDOLPH improved, resumed lyrica at 50 mg BID , c/w dilaudid iv prn, continue to hold clonazepam 01/02 - resumed trazodone - AMS resolved Assessment & Plan (01/10/2025 11:26 AM CDT): -12/31- worsening confusion with asterixis, vbg with pH 7.2 , HCO3 15, pCO2 40 suggestive of metabolic encephalopathy 2/2 RANDOLPH and metabolic acidosis with impaired respiratory compensation due to oversedation with opioids/BZDs 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- Held all sedating meds - oxycodone IR scheduled and prn , lyrica, compazine [ also held oxycontin, trazodone, clonazepam earlier the same day ] - bicarb injection 8.4% 150meq X 1 stat and nephro consulted - 01/01- - AMS resolved, resumed oxycodone IR 10 mg q4h , switch to oxycontin once RANDOLPH improved, resumed lyrica at 50 mg BID , c/w dilaudid iv prn, continue to hold clonazepam 01/02 - resumed trazodone - AMS resolved Assessment & Plan (01/09/2025 11:58 AM CDT): -12/31- worsening confusion with asterixis, vbg with pH 7.2 , HCO3 15, pCO2 40 suggestive of metabolic encephalopathy 2/2 RANDOLPH and metabolic acidosis with impaired respiratory compensation due to oversedation with opioids/BZDs 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- Held all sedating meds - oxycodone IR scheduled and prn , lyrica, compazine [ also held oxycontin, trazodone, clonazepam earlier the same day ] - bicarb injection 8.4% 150meq X 1 stat and nephro consulted - 01/01- - AMS resolved, resumed oxycodone IR 10 mg q4h , switch to oxycontin once RANDOLPH improved, resumed lyrica at 50 mg BID , c/w dilaudid iv prn, continue to hold clonazepam 01/02 - resumed trazodone - AMS resolved Assessment & Plan (01/08/2025 10:29 AM CDT): -12/31- worsening confusion with asterixis, vbg with pH 7.2 , HCO3 15, pCO2 40 suggestive of metabolic encephalopathy 2/2 RANDOLPH and metabolic acidosis with impaired respiratory compensation due to oversedation with opioids/BZDs 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- Held all sedating meds - oxycodone IR scheduled and prn , lyrica, compazine [ also held oxycontin, trazodone, clonazepam earlier the same day ] - bicarb injection 8.4% 150meq X 1 stat and nephro consulted - 01/01- - AMS resolved, resumed oxycodone IR 10 mg q4h , switch to oxycontin once RANDOLPH improved, resumed lyrica at 50 mg BID , c/w dilaudid iv prn, continue to hold clonazepam 01/02 - resumed trazodone - AMS resolved, c/w current meds, change oxycodone immediate release q4h to oxycontin 20mg BID 01/06 and monitor. Increase to 40mg BID 01/07 and consider reduce oxycodone to 10mg [id number] to review-?f/u Assessment & Plan (01/07/2025 2:11 PM CDT): -12/31- worsening confusion with asterixis, vbg with pH 7.2 , HCO3 15, pCO2 40 suggestive of metabolic encephalopathy 2/2 RANDOLPH and metabolic acidosis with impaired respiratory compensation due to oversedation with opioids/BZDs 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- Held all sedating meds - oxycodone IR scheduled and prn , lyrica, compazine [ also held oxycontin, trazodone, clonazepam earlier the same day ] - bicarb injection 8.4% 150meq X 1 stat and nephro consulted - 01/01- - AMS resolved, resumed oxycodone IR 10 mg q4h , switch to oxycontin once RANDOLPH improved, resumed lyrica at 50 mg BID , c/w dilaudid iv prn, continue to hold clonazepam 01/02 - resumed trazodone - AMS resolved, c/w current meds, change oxycodone immediate release q4h to oxycontin 20mg BID 01/06 and monitor. Increase to 40mg BID 01/07 and consider reduce oxycodone to 10mg [id number] Pain Service to review-?f/u Assessment & Plan (01/06/2025 1:47 PM CDT): -12/31- worsening confusion with asterixis, vbg with pH 7.2 , HCO3 15, pCO2 40 suggestive of metabolic encephalopathy 2/2 RANDOLPH and metabolic acidosis with impaired respiratory compensation due to oversedation with opioids/BZDs 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- Held all sedating meds - oxycodone IR scheduled and prn , lyrica, compazine [ also held oxycontin, trazodone, clonazepam earlier the same day ] - bicarb injection 8.4% 150meq X 1 stat and nephro consulted - 01/01- - AMS resolved, resumed oxycodone IR 10 mg q4h , switch to oxycontin once RANDOLPH improved, resumed lyrica at 50 mg BID , c/w dilaudid iv prn, continue to hold clonazepam 01/02 - resumed trazodone - AMS resolved, c/w current meds, change oxycodone immediate release q4h to oxycontin 20mg BID 01/06 and monitor. Assessment & Plan (01/05/2025 8:19 PM CDT): -12/31- worsening confusion with asterixis, vbg with pH 7.2 , HCO3 15, pCO2 40 suggestive of metabolic encephalopathy 2/2 RANDOLPH and metabolic acidosis with impaired respiratory compensation due to oversedation with opioids/BZDs 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- Held all sedating meds - oxycodone IR scheduled and prn , lyrica, compazine [ also held oxycontin, trazodone, clonazepam earlier the same day ] - bicarb injection 8.4% 150meq X 1 stat and nephro consulted - 01/01- - AMS resolved, resumed oxycodone IR 10 mg q4h , switch to oxycontin once RANDOLPH improved, resumed lyrica at 50 mg BID , c/w dilaudid iv prn, continue to hold clonazepam 01/02 - resumed trazodone Plan: - AMS resolved, c/w current meds , will c/w oxycodone immediate release q4h as she reports better control with it than ER-- . Meds sent to pharmacy Assessment & Plan (01/04/2025 2:44 PM CDT): -12/31- worsening confusion with asterixis, vbg with pH 7.2 , HCO3 15, pCO2 40 suggestive of metabolic encephalopathy 2/2 RANDOLPH and metabolic acidosis with impaired respiratory compensation due to oversedation with opioids/BZDs 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, putting patient at risk of worsening acidemia and respiratory failure - Held all sedating meds - oxycodone IR scheduled and prn , lyrica, compazine [ also held oxycontin, trazodone, clonazepam earlier the same day ] - bicarb injection 8.4% 150meq X 1 stat and nephro consulted -- 01/01- - AMS resolved, resumed oxycodone IR 10 mg q4h , switch to oxycontin once RANDOLPH improved, resumed lyrica at 50 mg BID , c/w dilaudid iv prn, continue to hold clonazepam 01/02 - resumed trazodone Plan: - AMS resolved, c/w current meds , will c/w oxycodone immediate release q4h as she reports better control with it than ER Assessment & Plan (01/03/2025 6:12 PM CDT): -12/31- worsening confusion with asterixis, vbg with pH 7.2 , HCO3 15, pCO2 40 suggestive of metabolic encephalopathy 2/2 RANDOLPH and metabolic acidosis with impaired respiratory compensation due to oversedation with opioids/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, putting patient at risk of worsening acidemia and respiratory failure - Held all sedating meds - oxycodone IR scheduled and prn , lyrica, compazine [ also held oxycontin, trazodone, clonazepam earlier the same day ] - bicarb injection 8.4% 150meq X 1 stat and nephro consulted -- 01/01- - AMS resolved, resumed oxycodone IR 10 mg q4h , switch to oxycontin once RANDOLPH improved, resumed lyrica at 50 mg BID , c/w dilaudid iv prn, continue to hold clonazepam 01/02 - resumed trazodone Plan: - AMS resolved, c/w current meds , will c/w oxycodone immediate release q4h as she reports better control with it than ER Assessment & Plan (01/02/2025 7:31 PM CDT): -12/31- worsening confusion with asterixis, vbg with pH 7.2 , HCO3 15, pCO2 40 suggestive of metabolic encephalopathy 2/2 RANDOLPH and metabolic acidosis with impaired respiratory compensation due to oversedation with opioids/BZDs 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, putting patient at risk of worsening acidemia and respiratory failure - Held all sedating meds - oxycodone IR scheduled and prn , lyrica, compazine [ also held oxycontin, trazodone, clonazepam earlier the same day ] - bicarb injection 8.4% 150meq X 1 stat and nephro consulted Plan: -- 01/01- - AMS resolved, resumed oxycodone IR 10 mg q4h , switch to oxycontin once RANDOLPH improved, resumed lyrica at 50 mg BID , c/w dilaudid iv prn, continue to hold clonazepam 01/02 - resume trazodone Assessment & Plan (01/01/2025 6:42 PM CDT): -12/31- worsening confusion with asterixis, vbg with pH 7.2 , HCO3 15, pCO2 40 suggestive of metabolic encephalopathy 2/2 RANDOLPH and metabolic acidosis with impaired respiratory compensation due to oversedation with opioids/BZDs 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, putting patient at risk of worsening acidemia and respiratory failure - Held all sedating meds - oxycodone IR scheduled and prn , lyrica, compazine [ also held oxycontin, trazodone, clonazepam earlier the same day ] - bicarb injection 8.4% 150meq X 1 stat and nephro consulted Plan: - AMS resolved, will resume some of her pain meds. Will start oxycodone IR 10 mg q4h , switch to oxycontin once RANDOLPH improved - resume lyrica at 50 mg BID - c/w dilaudid iv prn - continue to hold trazodone, clonazepam Assessment & Plan (12/31/2024 7:53 PM CDT): - worsening mental status with excessive drowsiness, confusion and new-onset tremors today -on exam, appears to have flapping tremors consistent with asterixis in the setting of metabolic encephalopathy, maybe in the setting of worsening renal function. Vs hypercarbia (on sedating meds) . Low suspicion for hepatic etiology - the other differential for her tremors is clonus (with ocular clonus ) which may be indicative of serotonin syndrome. She has been at risk due to multiple medications with serotonergic activity , maybe now precipitated from decreased renal clearance . Has AMS but no hemodynamic instability, hyperreflexia could not be elicited given her body habitus and MSK pain Plan: - order VBG and ammonia level - hold trazodone and loperamide . continue tidezolid and escitalopram- would avoid stopping abruptly - d/c scheduled clonazepam - switch long-acting oxycontin 60 mg BID to short acting IR oxycodone 10 mg q4 hour scheduled, continue prns as before - decrease augementin dose to 500-125 mg q12h (renally dosed) - touch base with ID to see if augmentin can be substituted with a different suppressive antibiotic given high propensity of causing AIN New-onset Tremors- resolved 12/31/2024 01/18/2025 Assessment & Plan (01/17/2025 2:32 PM CDT): -12/31- worsening confusion with asterixis, vbg with pH 7.2 , HCO3 15, pCO2 40 suggestive of metabolic encephalopathy 2/2 RANDOLPH and metabolic acidosis with impaired respiratory compensation due to oversedation with opioids/BZDs 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- Held all sedating meds - oxycodone IR scheduled and prn , lyrica, compazine [ also held oxycontin, trazodone, clonazepam earlier the same day ] - bicarb injection 8.4% 150meq X 1 stat and nephro consulted - 01/01- - AMS resolved, resumed oxycodone IR 10 mg q4h , switch to oxycontin once RANDOLPH improved, resumed lyrica at 50 mg BID, c/w dilaudid iv prn, continue to hold clonazepam 01/02 - resumed trazodone - AMS resolved Assessment & Plan (01/16/2025 9:26 PM CDT): -12/31- worsening confusion with asterixis, vbg with pH 7.2 , HCO3 15, pCO2 40 suggestive of metabolic encephalopathy 2/2 RANDOLPH and metabolic acidosis with impaired respiratory compensation due to oversedation with opioids/BZDs 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- Held all sedating meds - oxycodone IR scheduled and prn , lyrica, compazine [ also held oxycontin, trazodone, clonazepam earlier the same day ] - bicarb injection 8.4% 150meq X 1 stat and nephro consulted - 01/01- - AMS resolved, resumed oxycodone IR 10 mg q4h , switch to oxycontin once RANDOLPH improved, resumed lyrica at 50 mg BID, c/w dilaudid iv prn, continue to hold clonazepam 01/02 - resumed trazodone - AMS resolved Assessment & Plan (01/15/2025 9:08 PM CDT): -12/31- worsening confusion with asterixis, vbg with pH 7.2 , HCO3 15, pCO2 40 suggestive of metabolic encephalopathy 2/2 RANDOLPH and metabolic acidosis with impaired respiratory compensation due to oversedation with opioids/BZDs 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- Held all sedating meds - oxycodone IR scheduled and prn , lyrica, compazine [ also held oxycontin, trazodone, clonazepam earlier the same day ] - bicarb injection 8.4% 150meq X 1 stat and nephro consulted - 01/01- - AMS resolved, resumed oxycodone IR 10 mg q4h , switch to oxycontin once RANDOLPH improved, resumed lyrica at 50 mg BID, c/w dilaudid iv prn, continue to hold clonazepam 01/02 - resumed trazodone - AMS resolved Assessment & Plan (01/14/2025 11:06 PM CDT): -12/31- worsening confusion with asterixis, vbg with pH 7.2 , HCO3 15, pCO2 40 suggestive of metabolic encephalopathy 2/2 RANDOLPH and metabolic acidosis with impaired respiratory compensation due to oversedation with opioids/BZDs 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- Held all sedating meds - oxycodone IR scheduled and prn , lyrica, compazine [ also held oxycontin, trazodone, clonazepam earlier the same day ] - bicarb injection 8.4% 150meq X 1 stat and nephro consulted - 01/01- - AMS resolved, resumed oxycodone IR 10 mg q4h , switch to oxycontin once RANDOLPH improved, resumed lyrica at 50 mg BID, c/w dilaudid iv prn, continue to hold clonazepam 01/02 - resumed trazodone - AMS resolved Assessment & Plan (01/13/2025 8:04 PM CDT): -12/31- worsening confusion with asterixis, vbg with pH 7.2 , HCO3 15, pCO2 40 suggestive of metabolic encephalopathy 2/2 RANDOLPH and metabolic acidosis with impaired respiratory compensation due to oversedation with opioids/BZDs 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- Held all sedating meds - oxycodone IR scheduled and prn , lyrica, compazine [ also held oxycontin, trazodone, clonazepam earlier the same day ] - bicarb injection 8.4% 150meq X 1 stat and nephro consulted - 01/01- - AMS resolved, resumed oxycodone IR 10 mg q4h , switch to oxycontin once RANDOLPH improved, resumed lyrica at 50 mg BID, c/w dilaudid iv prn, continue to hold clonazepam 01/02 - resumed trazodone - AMS resolved Assessment & Plan (01/12/2025 1:20 PM CDT): -12/31- worsening confusion with asterixis, vbg with pH 7.2 , HCO3 15, pCO2 40 suggestive of metabolic encephalopathy 2/2 RANDOLPH and metabolic acidosis with impaired respiratory compensation due to oversedation with opioids/BZDs 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- Held all sedating meds - oxycodone IR scheduled and prn , lyrica, compazine [ also held oxycontin, trazodone, clonazepam earlier the same day ] - bicarb injection 8.4% 150meq X 1 stat and nephro consulted - 01/01- - AMS resolved, resumed oxycodone IR 10 mg q4h , switch to oxycontin once RANDOLPH improved, resumed lyrica at 50 mg BID, c/w dilaudid iv prn, continue to hold clonazepam 01/02 - resumed trazodone - AMS resolved Assessment & Plan (01/11/2025 12:18 PM CDT): -12/31- worsening confusion with asterixis, vbg with pH 7.2 , HCO3 15, pCO2 40 suggestive of metabolic encephalopathy 2/2 RANDOLPH and metabolic acidosis with impaired respiratory compensation due to oversedation with opioids/BZDs 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- Held all sedating meds - oxycodone IR scheduled and prn , lyrica, compazine [ also held oxycontin, trazodone, clonazepam earlier the same day ] - bicarb injection 8.4% 150meq X 1 stat and nephro consulted - 01/01- - AMS resolved, resumed oxycodone IR 10 mg q4h , switch to oxycontin once RANDOLPH improved, resumed lyrica at 50 mg BID , c/w dilaudid iv prn, continue to hold clonazepam 01/02 - resumed trazodone - AMS resolved Assessment & Plan (01/10/2025 11:26 AM CDT): -12/31- worsening confusion with asterixis, vbg with pH 7.2 , HCO3 15, pCO2 40 suggestive of metabolic encephalopathy 2/2 RANDOLPH and metabolic acidosis with impaired respiratory compensation due to oversedation with opioids/BZDs 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- Held all sedating meds - oxycodone IR scheduled and prn , lyrica, compazine [ also held oxycontin, trazodone, clonazepam earlier the same day ] - bicarb injection 8.4% 150meq X 1 stat and nephro consulted - 01/01- - AMS resolved, resumed oxycodone IR 10 mg q4h , switch to oxycontin once RANDOLPH improved, resumed lyrica at 50 mg BID , c/w dilaudid iv prn, continue to hold clonazepam 01/02 - resumed trazodone - AMS resolved Assessment & Plan (01/09/2025 11:58 AM CDT): -12/31- worsening confusion with asterixis, vbg with pH 7.2 , HCO3 15, pCO2 40 suggestive of metabolic encephalopathy 2/2 RANDOLPH and metabolic acidosis with impaired respiratory compensation due to oversedation with opioids/BZDs 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- Held all sedating meds - oxycodone IR scheduled and prn , lyrica, compazine [ also held oxycontin, trazodone, clonazepam earlier the same day ] - bicarb injection 8.4% 150meq X 1 stat and nephro consulted - 01/01- - AMS resolved, resumed oxycodone IR 10 mg q4h , switch to oxycontin once RANDOLPH improved, resumed lyrica at 50 mg BID , c/w dilaudid iv prn, continue to hold clonazepam 01/02 - resumed trazodone - AMS resolved Assessment & Plan (01/08/2025 10:29 AM CDT): -12/31- worsening confusion with asterixis, vbg with pH 7.2 , HCO3 15, pCO2 40 suggestive of metabolic encephalopathy 2/2 RANDOLPH and metabolic acidosis with impaired respiratory compensation due to oversedation with opioids/BZDs 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- Held all sedating meds - oxycodone IR scheduled and prn , lyrica, compazine [ also held oxycontin, trazodone, clonazepam earlier the same day ] - bicarb injection 8.4% 150meq X 1 stat and nephro consulted - 01/01- - AMS resolved, resumed oxycodone IR 10 mg q4h , switch to oxycontin once RANDOLPH improved, resumed lyrica at 50 mg BID , c/w dilaudid iv prn, continue to hold clonazepam 01/02 - resumed trazodone - AMS resolved, c/w current meds, change oxycodone immediate release q4h to oxycontin 20mg BID 01/06 and monitor. Increase to 40mg BID 01/07 and consider reduce oxycodone to 10mg [id number] Pain Service to review-?f/u Assessment & Plan (01/07/2025 2:11 PM CDT): -12/31- worsening confusion with asterixis, vbg with pH 7.2 , HCO3 15, pCO2 40 suggestive of metabolic encephalopathy 2/2 RANDOLPH and metabolic acidosis with impaired respiratory compensation due to oversedation with opioids/BZDs 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- Held all sedating meds - oxycodone IR scheduled and prn , lyrica, compazine [ also held oxycontin, trazodone, clonazepam earlier the same day ] - bicarb injection 8.4% 150meq X 1 stat and nephro consulted - 01/01- - AMS resolved, resumed oxycodone IR 10 mg q4h , switch to oxycontin once RANDOLPH improved, resumed lyrica at 50 mg BID , c/w dilaudid iv prn, continue to hold clonazepam 01/02 - resumed trazodone - AMS resolved, c/w current meds, change oxycodone immediate release q4h to oxycontin 20mg BID 01/06 and monitor. Increase to 40mg BID 01/07 and consider reduce oxycodone to 10mg [id number] Pain Service to review-?f/u Assessment & Plan (01/06/2025 1:47 PM CDT): -12/31- worsening confusion with asterixis, vbg with pH 7.2 , HCO3 15, pCO2 40 suggestive of metabolic encephalopathy 2/2 RANDOLPH and metabolic acidosis with impaired respiratory compensation due to oversedation with opioids/BZDs 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- Held all sedating meds - oxycodone IR scheduled and prn , lyrica, compazine [ also held oxycontin, trazodone, clonazepam earlier the same day ] - bicarb injection 8.4% 150meq X 1 stat and nephro consulted - 01/01- - AMS resolved, resumed oxycodone IR 10 mg q4h , switch to oxycontin once RANDOLPH improved, resumed lyrica at 50 mg BID , c/w dilaudid iv prn, continue to hold clonazepam 01/02 - resumed trazodone - AMS resolved, c/w current meds, change oxycodone immediate release q4h to oxycontin 20mg BID 01/06 and monitor. Assessment & Plan (01/05/2025 8:19 PM CDT): -12/31- worsening confusion with asterixis, vbg with pH 7.2 , HCO3 15, pCO2 40 suggestive of metabolic encephalopathy 2/2 RANDOLPH and metabolic acidosis with impaired respiratory compensation due to oversedation with opioids/BZDs 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- Held all sedating meds - oxycodone IR scheduled and prn , lyrica, compazine [ also held oxycontin, trazodone, clonazepam earlier the same day ] - bicarb injection 8.4% 150meq X 1 stat and nephro consulted - 01/01- - AMS resolved, resumed oxycodone IR 10 mg q4h , switch to oxycontin once RANDOLPH improved, resumed lyrica at 50 mg BID , c/w dilaudid iv prn, continue to hold clonazepam 01/02 - resumed trazodone Plan: - AMS resolved, c/w current meds , will c/w oxycodone immediate release q4h as she reports better control with it than ER-- . Meds sent to pharmacy Assessment & Plan (01/04/2025 2:44 PM CDT): -12/31- worsening confusion with asterixis, vbg with pH 7.2 , HCO3 15, pCO2 40 suggestive of metabolic encephalopathy 2/2 RANDOLPH and metabolic acidosis with impaired respiratory compensation due to oversedation with opioids/BZDs 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, putting patient at risk of worsening acidemia and respiratory failure - Held all sedating meds - oxycodone IR scheduled and prn , lyrica, compazine [ also held oxycontin, trazodone, clonazepam earlier the same day ] - bicarb injection 8.4% 150meq X 1 stat and nephro consulted -- 01/01- - AMS resolved, resumed oxycodone IR 10 mg q4h , switch to oxycontin once RANDOLPH improved, resumed lyrica at 50 mg BID , c/w dilaudid iv prn, continue to hold clonazepam 01/02 - resumed trazodone Plan: - AMS resolved, c/w current meds , will c/w oxycodone immediate release q4h as she reports better control with it than ER Assessment & Plan (01/03/2025 6:12 PM CDT): -12/31- worsening confusion with asterixis, vbg with pH 7.2 , HCO3 15, pCO2 40 suggestive of metabolic encephalopathy 2/2 RANDOLPH and metabolic acidosis with impaired respiratory compensation due to oversedation with opioids/BZDs 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, putting patient at risk of worsening acidemia and respiratory failure - Held all sedating meds - oxycodone IR scheduled and prn , lyrica, compazine [ also held oxycontin, trazodone, clonazepam earlier the same day ] - bicarb injection 8.4% 150meq X 1 stat and nephro consulted -- 01/01- - AMS resolved, resumed oxycodone IR 10 mg q4h , switch to oxycontin once RANDOLPH improved, resumed lyrica at 50 mg BID , c/w dilaudid iv prn, continue to hold clonazepam 01/02 - resumed trazodone Plan: - AMS resolved, c/w current meds , will c/w oxycodone immediate release q4h as she reports better control with it than ER Assessment & Plan (01/02/2025 7:31 PM CDT): -12/31- worsening confusion with asterixis, vbg with pH 7.2 , HCO3 15, pCO2 40 suggestive of metabolic encephalopathy 2/2 RANDOLPH and metabolic acidosis with impaired respiratory compensation due to oversedation with opioids/BZDs 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, putting patient at risk of worsening acidemia and respiratory failure - Held all sedating meds - oxycodone IR scheduled and prn , lyrica, compazine [ also held oxycontin, trazodone, clonazepam earlier the same day ] - bicarb injection 8.4% 150meq X 1 stat and nephro consulted Plan: -- 01/01- - AMS resolved, resumed oxycodone IR 10 mg q4h , switch to oxycontin once RANDOLPH improved, resumed lyrica at 50 mg BID , c/w dilaudid iv prn, continue to hold clonazepam 01/02 - resume trazodone Assessment & Plan (01/01/2025 6:42 PM CDT): -12/31- worsening confusion with asterixis, vbg with pH 7.2 , HCO3 15, pCO2 40 suggestive of metabolic encephalopathy 2/2 RANDOLPH and metabolic acidosis with impaired respiratory compensation due to oversedation with opioids/BZDs 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, putting patient at risk of worsening acidemia and respiratory failure - Held all sedating meds - oxycodone IR scheduled and prn , lyrica, compazine [ also held oxycontin, trazodone, clonazepam earlier the same day ] - bicarb injection 8.4% 150meq X 1 stat and nephro consulted Plan: - AMS resolved, will resume some of her pain meds. Will start oxycodone IR 10 mg q4h , switch to oxycontin once RANDOLPH improved - resume lyrica at 50 mg BID - c/w dilaudid iv prn - continue to hold trazodone, clonazepam Assessment & Plan (12/31/2024 7:53 PM CDT): - worsening mental status with excessive drowsiness, confusion and new-onset tremors today -on exam, appears to have flapping tremors consistent with asterixis in the setting of metabolic encephalopathy, maybe in the setting of worsening renal function. Vs hypercarbia (on sedating meds) . Low suspicion for hepatic etiology - the other differential for her tremors is clonus (with ocular clonus ) which may be indicative of serotonin syndrome. She has been at risk due to multiple medications with serotonergic activity , maybe now precipitated from decreased renal clearance . Has AMS but no hemodynamic instability, hyperreflexia could not be elicited given her body habitus and MSK pain Plan: - order VBG and ammonia level - hold trazodone and loperamide . continue tidezolid and escitalopram- would avoid stopping abruptly - d/c scheduled clonazepam - switch long-acting oxycontin 60 mg BID to short acting IR oxycodone 10 mg q4 hour scheduled, continue prns as before - decrease augementin dose to 500-125 mg q12h (renally dosed) - touch base with ID to see if augmentin can be substituted with a different suppressive antibiotic given high propensity of causing AIN concern for serotonin syndrome 12/31/2024 01/01/2025 Assessment & Plan (01/01/2025 6:42 PM CDT): -12/31- worsening confusion with asterixis, vbg with pH 7.2 , HCO3 15, pCO2 40 suggestive of metabolic encephalopathy 2/2 RANDOLPH and metabolic acidosis with impaired respiratory compensation due to oversedation with opioids/BZDs 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, putting patient at risk of worsening acidemia and respiratory failure - Held all sedating meds - oxycodone IR scheduled and prn , lyrica, compazine [ also held oxycontin, trazodone, clonazepam earlier the same day ] - bicarb injection 8.4% 150meq X 1 stat and nephro consulted Plan: - AMS resolved, will resume some of her pain meds. Will start oxycodone IR 10 mg q4h , switch to oxycontin once RANDOLPH improved - resume lyrica at 50 mg BID - c/w dilaudid iv prn - continue to hold trazodone, clonazepam Assessment & Plan (12/31/2024 7:53 PM CDT): - worsening mental status with excessive drowsiness, confusion and new-onset tremors today -on exam, appears to have flapping tremors consistent with asterixis in the setting of metabolic encephalopathy, maybe in the setting of worsening renal function. Vs hypercarbia (on sedating meds) . Low suspicion for hepatic etiology - the other differential for her tremors is clonus (with ocular clonus ) which may be indicative of serotonin syndrome. She has been at risk due to multiple medications with serotonergic activity , maybe now precipitated from decreased renal clearance . Has AMS but no hemodynamic instability, hyperreflexia could not be elicited given her body habitus and MSK pain Plan: - order VBG and ammonia level - hold trazodone and loperamide . 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, UA (10/30)- nitrite+, leuk esterase+, pyuria, bacteriuria+, Urine cx- contaminated- mixed krzysztof -CT A/P 10/30- no pyelonephritis, notable for acute on chronic diverticulitis, and 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 12/04/2024 - replaced with 22Fr [address] way mcclelland catheter; irrigation 30cc bid - 12/24 Tmax=38.7, WBC=7.79k-check cultures-pending, viral swab(-) - 12/25 Tmax=39.2, hemodynamically stable, per ID monitor and hold on empiric IV abx, monitor-BCx's (+) for ruddy albicans-start micafungin - 12/26 ECHO with no vegetations - 12/27 (-) exam per ophtha for ocular fungemia-will ask for peripheral IV-BCx x 1 sent - 12/28 PICC line pulled, repeat BCx sent, 12/27 BC with staph epi-likely contaminant 12/29 - growing staph epidermidis -> likely contaminant 12/30 - Repeat blood cultures sent on 12/30 NGTD - 01/03- picc line placed for home Na thisulphate at discharge - 01/09/2025- completed 2 weeks of iv micafungin from neg cx 12/27 Assessment & Plan (01/17/2025 2:32 PM CDT): -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, UA (10/30)- nitrite+, leuk esterase+, pyuria, bacteriuria+, Urine cx- contaminated- mixed krzysztof -CT A/P 10/30- no pyelonephritis, notable for acute on chronic diverticulitis, and 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 12/04/2024 - replaced with 22Fr 3 way mcclelland catheter; irrigation 30cc bid - 12/24 Tmax=38.7, WBC=7.79k-check cultures-pending, viral swab(-) - 12/25 Tmax=39.2, hemodynamically stable, per ID monitor and hold on empiric IV abx, monitor-BCx's (+) for ruddy albicans-start micafungin - 12/26 ECHO with no vegetations - 12/27 (-) exam per ophtha for ocular fungemia-will ask for peripheral IV-BCx x 1 sent - 12/28 PICC line pulled, repeat BCx sent, 12/27 BC with staph epi-likely contaminant 12/29 - growing staph epidermidis -> likely contaminant 12/30 - Repeat blood cultures sent on 12/30 NGTD - 01/03- picc line placed for home Na thisulphate at discharge - 01/09/2025- completed 2 weeks of iv micafungin from neg cx 12/27 Assessment & Plan (01/16/2025 9:26 PM CDT): -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, UA (10/30)- nitrite+, leuk esterase+, pyuria, bacteriuria+, Urine cx- contaminated- mixed krzysztof -CT A/P 10/30- no pyelonephritis, notable for acute on chronic diverticulitis, and 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 12/04/2024 - replaced with 22Fr [address] way mcclelland catheter; irrigation 30cc bid - 12/24 Tmax=38.7, WBC=7.79k-check cultures-pending, viral swab(-) - 12/25 Tmax=39.2, hemodynamically stable, per ID monitor and hold on empiric IV abx, monitor-BCx's (+) for ruddy albicans-start micafungin - 12/26 ECHO with no vegetations - 12/27 (-) exam per ophtha for ocular fungemia-will ask for peripheral IV-BCx x 1 sent - 12/28 PICC line pulled, repeat BCx sent, 12/27 BC with staph epi-likely contaminant 12/29 - growing staph epidermidis -> likely contaminant 12/30 - Repeat blood cultures sent on 12/30 NGTD - 01/03- picc line placed for home Na thisulphate at discharge - 01/09/2025- completed 2 weeks of iv micafungin from neg cx 12/27 Assessment & Plan (01/15/2025 9:08 PM CDT): -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, UA (10/30)- nitrite+, leuk esterase+, pyuria, bacteriuria+, Urine cx- contaminated- mixed krzysztof -CT A/P 10/30- no pyelonephritis, notable for acute on chronic diverticulitis, and 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 Antibiotics: Zosyn (11/05 - 11/18) Linezolid (10/31 - 11/18) Unasyn (11/01 - 11/05)Augmentin (10/30 - 10/31), Cefe, metronidazole (12/12-12/21) Augmentin BID (11/18-) Tedizolid 200mg daily (11/18-) until surgery with CRS - - needs new PA for tedizolid - denied -appealing - 01/14: - PA for tedizolid was appealed- denial was upheld, with a 24 hour window to provide additional documentation, Discussed with ID team, who documented the necessity for prolonged antibiotic course , which was faxed over by the CM 01/15- PA pending - Mcclelland indication: 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 12/04/2024 - replaced with 22Fr [address] way mcclelland catheter; irrigation 30cc bid - 12/24 Tmax=38.7, WBC=7.79k-check cultures-pending, viral swab(-) - 12/25 Tmax=39.2, hemodynamically stable, per ID monitor and hold on empiric IV abx, monitor-BCx's (+) for ruddy albicans-start micafungin - 12/26 ECHO with no vegetations - 12/27 (-) exam per ophtha for ocular fungemia-will ask for peripheral IV-BCx x 1 sent - 12/28 PICC line pulled, repeat BCx sent, 12/27 BC with staph epi-likely contaminant 12/29 - growing staph epidermidis -> likely contaminant 12/30 - Repeat blood cultures sent on 12/30 NGTD - 01/03- picc line placed for home Na thisulphate at discharge - 01/09/2025- completed 2 weeks of iv micafungin from neg cx 12/27 Assessment & Plan (01/14/2025 11:05 PM CDT): -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, UA (10/30)- nitrite+, leuk esterase+, pyuria, bacteriuria+, Urine cx- contaminated- mixed krzysztof -CT A/P 10/30- no pyelonephritis, notable for acute on chronic diverticulitis, and 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 12/04/2024 - replaced with 22Fr 3 way mcclelland catheter; irrigation 30cc bid - 12/24 Tmax=38.7, WBC=7.79k-check cultures-pending, viral swab(-) - 12/25 Tmax=39.2, hemodynamically stable, per ID monitor and hold on empiric IV abx, monitor-BCx's (+) for ruddy albicans-start micafungin - 12/26 ECHO with no vegetations - 12/27 (-) exam per ophtha for ocular fungemia-will ask for peripheral IV-BCx x 1 sent - 12/28 PICC line pulled, repeat BCx sent, 12/27 BC with staph epi-likely contaminant 12/29 - growing staph epidermidis -> likely contaminant 12/30 - Repeat blood cultures sent on 12/30 NGTD - 01/03- picc line placed for home Na thisulphate at discharge - 01/09/2025- completed 2 weeks of iv micafungin from neg cx 12/27 Assessment & Plan (01/13/2025 8:04 PM CDT): -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, UA (10/30)- nitrite+, leuk esterase+, pyuria, bacteriuria+, Urine cx- contaminated- mixed krzysztof -CT A/P 10/30- no pyelonephritis, notable for acute on chronic diverticulitis, and 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 12/04/2024 - replaced with 22Fr 3 way mcclelland catheter; irrigation 30cc bid - 12/24 Tmax=38.7, WBC=7.79k-check cultures-pending, viral swab(-) - 12/25 Tmax=39.2, hemodynamically stable, per ID monitor and hold on empiric IV abx, monitor-BCx's (+) for ruddy albicans-start micafungin - 12/26 ECHO with no vegetations - 12/27 (-) exam per ophtha for ocular fungemia-will ask for peripheral IV-BCx x 1 sent - 12/28 PICC line pulled, repeat BCx sent, 12/27 BC with staph epi-likely contaminant 12/29 - growing staph epidermidis -> likely contaminant 12/30 - Repeat blood cultures sent on 12/30 NGTD - 01/03- picc line placed for home Na thisulphate at discharge - 01/09/2025- completed 2 weeks of iv micafungin from neg cx 12/27 Assessment & Plan (01/12/2025 1:20 PM CDT): -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 12/04/2024 - replaced with 22Fr [address] mcclelland catheter; irrigation 30cc bid - 12/24 Tmax=38.7, WBC=7.79k-check cultures-pending, viral swab(-) - 12/25 Tmax=39.2, hemodynamically stable, per ID monitor and hold on empiric IV abx, monitor-BCx's (+) for ruddy albicans-start micafungin - 12/26 ECHO with no vegetations - 12/27 (-) exam per ophtha for ocular fungemia-will ask for peripheral IV-BCx x 1 sent - 12/28 PICC line pulled, repeat BCx sent, 12/27 BC with staph epi-likely contaminant 12/29 - growing staph epidermidis -> likely contaminant 12/30 - Repeat blood cultures sent on 12/30 NGTD - 01/03- picc line placed for home Na thisulphate at discharge - but decrease dose to 12.5 gm 3X/week - patient to receive 2 weeks of iv micafungin from when the cultures became neg ie (Last growth of ruddy noted on cx from 12/24 ) neg cx n 12/27 - EOT 01/09/2501/04- does not feel ready to be dicharged, wants to continue intensive PT. 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 12/04/2024 - replaced with 22Fr [address] mcclelland catheter; irrigation 30cc bid - 12/24 Tmax=38.7, WBC=7.79k-check cultures-pending, viral swab(-) - 12/25 Tmax=39.2, hemodynamically stable, per ID monitor and hold on empiric IV abx, monitor-BCx's (+) for ruddy albicans-start micafungin - 12/26 ECHO with no vegetations - 12/27 (-) exam per ophtha for ocular fungemia-will ask for peripheral IV-BCx x 1 sent - 12/28 PICC line pulled, repeat BCx sent, 12/27 BC with staph epi-likely contaminant 12/29 - growing staph epidermidis -> likely contaminant 12/30 - Repeat blood cultures sent on 12/30 NGTD - 01/03- picc line placed for home Na thisulphate at discharge - but decrease dose to 12.5 gm 3X/week - patient to receive 2 weeks of iv micafungin from when the cultures became neg ie (Last growth of ruddy noted on cx from 12/24 ) neg cx n 12/27 - EOT 01/09/2501/04- does not feel ready to be dicharged, wants to continue intensive PT. 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 12/04/2024 - replaced with 22Fr [address] mcclelland catheter; irrigation 30cc bid - 12/24 Tmax=38.7, WBC=7.79k-check cultures-pending, viral swab(-) - 12/25 Tmax=39.2, hemodynamically stable, per ID monitor and hold on empiric IV abx, monitor-BCx's (+) for ruddy albicans-start micafungin - 12/26 ECHO with no vegetations - 12/27 (-) exam per ophtha for ocular fungemia-will ask for peripheral IV-BCx x 1 sent - 12/28 PICC line pulled, repeat BCx sent, 12/27 BC with staph epi-likely contaminant 12/29 - growing staph epidermidis -> likely contaminant 12/30 - Repeat blood cultures sent on 12/30 NGTD - 01/03- picc line placed for home Na thisulphate at discharge - but decrease dose to 12.5 gm 3X/week - patient to receive 2 weeks of iv micafungin from when the cultures became neg ie (Last growth of ruddy noted on cx from 12/24 ) neg cx n 12/27 - EOT 01/09/25 at 1700 01/04- does not feel ready to be dicharged, wants to continue intensive PT. 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 12/04/2024 - replaced with 22Fr [address] mcclelland catheter; irrigation 30cc bid - 12/24 Tmax=38.7, WBC=7.79k-check cultures-pending, viral swab(-) - 12/25 Tmax=39.2, hemodynamically stable, per ID monitor and hold on empiric IV abx, monitor-BCx's (+) for ruddy albicans-start micafungin - 12/26 ECHO with no vegetations - 12/27 (-) exam per ophtha for ocular fungemia-will ask for peripheral IV-BCx x 1 sent - 12/28 PICC line pulled, repeat BCx sent, 12/27 BC with staph epi-likely contaminant 12/29 - growing staph epidermidis -> likely contaminant 12/30 - Repeat blood cultures sent on 12/30 NGTD - 01/03- picc line placed for home Na thisulphate at discharge - but decrease dose to 12.5 gm 3X/week - patient to receive 2 weeks of iv micafungin from when the cultures became neg ie (Last growth of ruddy noted on cx from 12/24 ) neg cx n 12/27 - EOT 01/09/25 at 1700 01/04- does not feel ready to be dicharged, wants to continue intensive PT. 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 12/04/2024 - replaced with 22Fr [address] mcclelland catheter; irrigation 30cc bid - 12/24 Tmax=38.7, WBC=7.79k-check cultures-pending, viral swab(-) - 12/25 Tmax=39.2, hemodynamically stable, per ID monitor and hold on empiric IV abx, monitor-BCx's (+) for ruddy albicans-start micafungin - 12/26 ECHO with no vegetations - 12/27 (-) exam per ophtha for ocular fungemia-will ask for peripheral IV-BCx x 1 sent - 12/28 PICC line pulled, repeat BCx sent, 12/27 BC with staph epi-likely contaminant 12/29 - growing staph epidermidis -> likely contaminant 12/30 - Repeat blood cultures sent on 12/30 NGTD - 01/03- picc line placed for home Na thisulphate at discharge - but decrease dose to 12.5 gm 3X/week - patient to receive 2 weeks of iv micafungin from when the cultures became neg ie (Last growth of ruddy noted on cx from 12/24 ) neg cx n 12/27 - EOT 01/09/25 at 1700 01/04- does not feel ready to be dicharged, wants to continue intensive PT. 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 12/04/2024 - replaced with 22Fr [address] mcclelland catheter; irrigation 30cc bid - 12/24 Tmax=38.7, WBC=7.79k-check cultures-pending, viral swab(-) - 12/25 Tmax=39.2, hemodynamically stable, per ID monitor and hold on empiric IV abx, monitor-BCx's (+) for ruddy albicans-start micafungin - 12/26 ECHO with no vegetations - 12/27 (-) exam per ophtha for ocular fungemia-will ask for peripheral IV-BCx x 1 sent - 12/28 PICC line pulled, repeat BCx sent, 12/27 BC with staph epi-likely contaminant 12/29 - growing staph epidermidis -> likely contaminant 12/30 - Repeat blood cultures sent on 12/30 NGTD - 01/03- picc line placed for home Na thisulphate at discharge - but decrease dose to 12.5 gm 3X/week - patient to receive 2 weeks of iv micafungin from when the cultures became neg ie (Last growth of ruddy noted on cx from 12/24 ) neg cx n 12/27 - EOT 01/09/25 at 1700 01/04- does not feel ready to be dicharged, wants to continue intensive PT. 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 12/04/2024 - replaced with 22Fr [address] mcclelland catheter; irrigation 30cc bid - 12/24 Tmax=38.7, WBC=7.79k-check cultures-pending, viral swab(-) - 12/25 Tmax=39.2, hemodynamically stable, per ID monitor and hold on empiric IV abx, monitor-BCx's (+) for ruddy albicans-start micafungin - 12/26 ECHO with no vegetations - 12/27 (-) exam per ophtha for ocular fungemia-will ask for peripheral IV-BCx x 1 sent - 12/28 PICC line pulled, repeat BCx sent, 12/27 BC with staph epi-likely contaminant 12/29 - growing staph epidermidis -> likely contaminant 12/30 - Repeat blood cultures sent on 12/30 NGTD - 01/03- picc line placed for home Na thisulphate at discharge - but decrease dose to 12.5 gm 3X/week - patient to receive 2 weeks of iv micafungin from when the cultures became neg ie (Last growth of ruddy noted on cx from 12/24 ) neg cx n 12/27 - EOT 01/09/25 at 1700 01/04- does not feel ready to be dicharged, wants to continue intensive PT. 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 12/04/2024 - replaced with 22Fr [address] mcclelland catheter; irrigation 30cc bid - 12/24 Tmax=38.7, WBC=7.79k-check cultures-pending, viral swab(-) - 12/25 Tmax=39.2, hemodynamically stable, per ID monitor and hold on empiric IV abx, monitor-BCx's (+) for ruddy albicans-start micafungin - 12/26 ECHO with no vegetations - 12/27 (-) exam per ophtha for ocular fungemia-will ask for peripheral IV-BCx x 1 sent - 12/28 PICC line pulled, repeat BCx sent, 12/27 BC with staph epi-likely contaminant 12/29 - growing staph epidermidis -> likely contaminant 12/30 - Repeat blood cultures sent on 12/30 NGTD Plan: - 01/03- picc line placed for home antibiotics - patient to receive 2 weeks of iv micafungin from when the cultures became neg ie (Last growth of ruddy noted on cx from 12/24 ) neg cx n 12/27 - EOT 01/09/2501/04- does not feel ready to be dicharged, wants to continue intensive PT. 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 12/04/2024 - replaced with 22Fr [address] mcclelland catheter; irrigation 30cc bid - 12/24 Tmax=38.7, WBC=7.79k-check cultures-pending, viral swab(-) - 12/25 Tmax=39.2, hemodynamically stable, per ID monitor and hold on empiric IV abx, monitor-BCx's (+) for ruddy albicans-start micafungin - 12/26 ECHO with no vegetations - 12/27 (-) exam per ophtha for ocular fungemia-will ask for peripheral IV-BCx x 1 sent - 12/28 PICC line pulled, repeat BCx sent, 12/27 BC with staph epi-likely contaminant 12/29 - growing staph epidermidis -> likely contaminant 12/30 - Repeat blood cultures sent on 12/30 NGTD Plan: - 01/04- picc line placed for home antibiotics - patient to receive 2 weeks of iv micafungin from when the cultures became neg ie (Last growth of rdudy noted on cx from 12/24 ) ~01/07 -medically ready for discharge - CM was working on setting up her home infusion, but patient says she doesn't feel ready to leave and still feels weak . Of note, patient has had >4 hospital admissions since May, and is at high risk of readmission, especially in her current debilitated state. will plan to finish antifungal course inpatient on 01/07 , remove PICC line and then d/c with home PT/OT. 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 12/04/2024 - replaced with 22Fr [address] mcclelland catheter; irrigation 30cc bid - 12/24 Tmax=38.7, WBC=7.79k-check cultures-pending, viral swab(-) - 12/25 Tmax=39.2, hemodynamically stable, per ID monitor and hold on empiric IV abx, monitor-BCx's (+) for ruddy albicans-start micafungin - 12/26 ECHO with no vegetations - 12/27 (-) exam per ophtha for ocular fungemia-will ask for peripheral IV-BCx x 1 sent - 12/28 PICC line pulled, repeat BCx sent, 12/27 BC with staph epi-likely contaminant 12/29 - growing staph epidermidis -> likely contaminant 12/30 - Repeat blood cultures sent on 12/30 NGTD Plan: - - blood cultures from 12/30- have been negative till date. 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 12/04/2024 - replaced with 22Fr 3 way mccle[facility]and catheter; irrigation 30cc bid - 12/24 Tmax=38.7, WBC=7.79k-check cultures-pending, viral swab(-) - 12/25 Tmax=39.2, hemodynamically stable, per ID monitor and hold on empiric IV abx, monitor-BCx's (+) for ruddy albicans-start micafungin - 12/26 ECHO with no vegetations - 12/27 (-) exam per ophtha for ocular fungemia-will ask for peripheral IV-BCx x 1 sent - 12/28 PICC line pulled, repeat BCx sent, 12/27 BC with staph epi-likely contaminant 12/29 - growing staph epidermidis , final report pending 12/30 - Repeat blood cultures sent on 12/30 NGTD, final report pending - f/u culture reports- patient to receive 2 weeks of iv micafungin from when the cultures became neg, will need PICC line for home iv abx therapy once cultures remain neg for 48 hours Assessment & Plan (01/01/2025 6:42 PM CDT): -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 12/04/2024 - replaced with 22Fr 3 way mcclelland catheter; irrigation 30cc bid - 12/24 Tmax=38.7, WBC=7.79k-check cultures-pending, viral swab(-) - 12/25 Tmax=39.2, hemodynamically stable, per ID monitor and hold on empiric IV abx, monitor-BCx's (+) for ruddy albicans-start micafungin - 12/26 ECHO with no vegetations - 12/27 (-) exam per ophtha for ocular fungemia-will ask for peripheral IV-BCx x 1 sent - 12/28 PICC line pulled, repeat BCx sent, 12/27 BC with staph epi-likely contaminant 12/29 - growing staph epidermidis , final report pending Repeat blood cultures sent on 12/30 NGTD - f/u culture reports- patient to receive 2 weeks of iv micafungin from when the cultures became neg, will need PICC line for home iv abx therapy once cultures remain neg for 48 hours Assessment & Plan (12/31/2024 7:53 PM CDT): -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 12/04/2024 - replaced with 22Fr 3 way mcclelland catheter; irrigation 30cc bid - 12/24 Tmax=38.7, WBC=7.79k-check cultures-pending, viral swab(-) - 12/25 Tmax=39.2, hemodynamically stable, per ID monitor and hold on empiric IV abx, monitor-BCx's (+) for ruddy albicans-start micafungin - 12/26 ECHO with no vegetations - 12/27 (-) exam per ophtha for ocular fungemia-will ask for peripheral IV-BCx x 1 sent - 12/28 PICC line pulled, repeat BCx sent, 12/27 BC with staph epi-likely contaminant 12/29 - growing staph epidermidis , final report pending Repeat blood cultures sent on 12/30 NGTD - f/u culture reports- patient to receive 2 weeks of iv micafungin from when the cultures became neg, will need PICC line for home iv abx therapy once cultures remain neg for 48 hours Assessment & Plan (12/30/2024 4:26 PM CDT): -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 12/04/2024 - replaced with 22Fr 3 way mcc[facility] catheter; irrigation 30cc bid - 12/24 Tmax=38.7, WBC=7.79k-check cultures-pending, viral swab(-) - 12/25 Tmax=39.2, hemodynamically stable, per ID monitor and hold on empiric IV abx, monitor-BCx's (+) for ruddy albicans-start micafungin - 12/26 ECHO with no vegetations - 12/27 (-) exam per ophtha for ocular fungemia-will ask for peripheral IV-BCx x 1 sent - 12/28 PICC line pulled, repeat BCx sent, 12/27 BC with staph epi-likely contaminant 12/28- NGTD (prelim) 12/29 - now with GPCs in clusters (pelim) - ID following, repeat blood cx 12/30 ordered - f/u culture reports- patient to receive 2 weeks of iv micafungin from when the cultures became neg, will need PICC line for home iv abx therapy once cultures remain neg for 48 hours Assessment & Plan (12/29/2024 10:35 AM CDT): -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 Antibiotics: Zosyn (11/05 - 11/18) Linezolid (10/31 - 11/18) Unasyn (11/01 - 11/05)Augmentin (10/30 - 10/31) Augmentin 875-125mg BID (11/18-) Tedizolid 200mg daily (11/18-) no end date or until surgery done - per CRS, no further plan for surgery this admission: plan to f/up in clinic - Contact precautions - 11/22, placed 16 Fr urinary catheter - should have been 22Fr - [facility] indication: 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) - 12/04/2024 - replaced with 22Fr [address] way mcclelland catheter; irrigation 30cc bid - 12/13 Septic with fever 103F, tachycardic and hypotensive, suspect wound infection: Cefe , metronidazole extended duration (12/12-12/21), c/w Tedizolif (resume Augmentin 12/21) - pursue noncontrast (rising creatinine) CT chest/abd/pelvis ->severe hepatic steatosis - MRSE blood stream infection (Bc 12/13), likely contaminant, repeat blood cultures NGTD, low grade fever on 12/18: repeat Blood Cx NTD - appreciate ID recs Assessment & Plan (12/18/2024 3:25 PM CDT): -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, UA (10/30)- nitrite+, leuk esterase+, pyuria, bacteriuria+, Urine cx- contaminated- mixed krzysztof -CT A/P 10/30- no pyelonephritis, notable for acute on chronic diverticulitis, and 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 Antibiotics: Zosyn (11/05 - 11/18) Linezolid (10/31 - 11/18) Unasyn (11/01 - 11/05)Augmentin (10/30 - 10/31) Augmentin 875-125mg BID (11/18-) Tedizolid 200mg daily (11/18-) no end date or until surgery done - per CRS, no further plan for surgery this admission: plan to f/up in clinic - Contact precautions - 11/22, placed 16 Fr urinary catheter - should have been 22Fr - [facility] indication: 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 Antibiotics: Zosyn (11/05 - 11/18) Linezolid (10/31 - 11/18) Unasyn (11/01 - 11/05)Augmentin (10/30 - 10/31) Augmentin 875-125mg BID (11/18-) Tedizolid 200mg daily (11/18-) no end date or until surgery done - per CRS, no further plan for surgery this admission: plan to f/up in clinic - Contact precautions - 11/22, placed 16 Fr urinary catheter - should have been 22Fr - [facility] indication: 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) - 12/04/2024 - replaced with 22Fr 3 way mcclelland catheter; irrigation 30cc bid - 12/13 Septic with fever 103F, tachycardic and hypotensive, suspect wound infection: Cefe , metronidazole(12/12-), c/w Tedizolif (resume Augmentin on 12/19) - pursue noncontrast (rising creatinine) CT chest/abd/pelvis ->severe hepatic steatosis - MRSE blood stream infection (Bc 12/13), likely contaminant, repeat blood cultures NGTD - appreciate ID recs Assessment & Plan (12/16/2024 2:46 PM CDT): -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, UA (10/30)- nitrite+, leuk esterase+, pyuria, bacteriuria+, Urine cx- contaminated- mixed krzysztof -CT A/P 10/30- no pyelonephritis, notable for acute on chronic diverticulitis, and 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 Antibiotics: Zosyn (11/05 - 11/18) Linezolid (10/31 - 11/18) Unasyn (11/01 - 11/05)Augmentin (10/30 - 10/31) Augmentin 875-125mg BID (11/18-) Tedizolid 200mg daily (11/18-) no end date or until surgery done - per CRS, no further plan for surgery this admission: plan to f/up in clinic - Contact precautions - 11/22, placed 16 Fr urinary catheter - should have been 22Fr - [facility] indication: 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) - 12/04/2024 - replaced with 22Fr 3 way mcclelland catheter; irrigation 30cc bid - 12/13 Septic with fever 103F, tachycardic and hypotensive, suspect wound infection: Cefe , metronidazole(12/12-), c/w Tedizolif (resume Augmentin on 12/19) - pursue noncontrast (rising creatinine) CT chest/abd/pelvis ->severe hepatic steatosis - MRSE blood stream infection (Bc 12/13), likely contaminant, repeat blood cultures NGTD - appreciate ID recs Assessment & Plan (12/15/2024 12:46 PM CDT): -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, UA (10/30)- nitrite+, leuk esterase+, pyuria, bacteriuria+, Urine cx- contaminated- mixed krzysztof -CT A/P 10/30- no pyelonephritis, notable for acute on chronic diverticulitis, and 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 Antibiotics: Zosyn (11/05 - 11/18) Linezolid (10/31 - 11/18) Unasyn (11/01 - 11/05)Augmentin (10/30 - 10/31) Augmentin 875-125mg BID (11/18-) Tedizolid 200mg daily (11/18-) no end date or until surgery done - per CRS, no further plan for surgery this admission: plan to f/up in clinic - Contact precautions - 11/22, placed 16 Fr urinary catheter - should have been 22Fr - [facility] indication: 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) - 12/04/2024 - replaced with 22Fr [address] mcclelland catheter; irrigation 30cc bid - 12/13 Septic with fever 103F, tachycardic and hypotensive, suspect wound infection, r/o worsening IA infection, has line in place r/o line infection, work-up sent, LR bolus x 2 liters, start Dapto and Cefe (hold Augmentin and Tedizolif) - Add Flagyl given LFT elevation concern for biliary infection, pursue noncontrast (rising creatinine) CT chest/abd/pelvis ->severe hepatic steatosis - MRSE blood stream infection (Bc 12/13), hopefully contaminant, repeat blood cultures NGTD - Anticipate ID for more recommendations 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 11/18/2024 CKD (chronic kidney disease) 11/18/2024 11/18/2024 Hyperglycemia 11/18/2024 12/30/2024 Assessment & Plan (12/30/2024 4:26 PM CDT): - 06/13 A1c 7.4, on Tresiba and SSI Assessment & Plan (12/29/2024 10:35 AM CDT): - 06/13 A1c 7.4, on Tresiba Assessment & Plan (12/28/2024 11:23 AM CDT): - 06/13 A1c 7.4, on Tresiba Assessment & Plan (12/27/2024 10:44 AM CDT): - 06/13 A1c 7.4, on Tresiba Assessment & Plan (12/26/2024 1:28 PM CDT): - 2/21 A1c 7.4, on Tresiba Assessment & Plan (12/25/2024 1:36 PM CDT): - 2/21 A1c 7.4, on Tresiba Assessment & Plan (12/24/2024 12:30 PM CDT): - 2/ A1c 7.4, on Tresiba Assessment & Plan (12/23/2024 12:16 PM CDT): - 2/ A1c 7.4, on Tresiba Assessment & Plan (12/22/2024 7:49 AM CDT): - 2/ A1c 7.4, on Tresiba Assessment & Plan (12/21/2024 8:31 AM CDT): - 2/ A1c 7.4, on Tresiba Assessment & Plan (12/20/2024 9:08 AM CDT): - 2/ A1c 7.4, on Tresiba Assessment & Plan (12/19/2024 7:54 AM CDT): - 2/ A1c 7.4, on Tresiba Assessment & Plan (12/18/2024 8:14 AM CDT): - 2/ A1c 7.4, on Tresiba Assessment & Plan (12/17/2024 1:15 PM CDT): - 2/21 A1c 7.4, on Tresiba Assessment & Plan (12/16/2024 2:46 PM CDT): - 2/21 A1c 7.4, on Tresiba Assessment & Plan (12/15/2024 12:46 PM CDT): - 2/21 A1c 7.4, on Tresiba Assessment & Plan (12/14/2024 10:58 AM CDT): - 06/13 A1c 7.4, on Tresiba Assessment & Plan (12/13/2024 1:19 PM CDT): - 06/13 A1c 7.4, on Tresiba Assessment & Plan (12/12/2024 2:48 PM CDT): - 06/13 A1c 7.4, on Tresiba Assessment & Plan (12/10/2024 8:41 AM CDT): - SSI - f/u nutrition recs Assessment & Plan (12/09/2024 8:35 AM CDT): - SSI - f/u nutrition recs Assessment & Plan (12/08/2024 2:09 PM CDT): - SSI - f/u nutrition recs Assessment & Plan (12/07/2024 1:18 PM CDT): - SSI - f/u nutrition recs Assessment & Plan (12/06/2024 2:19 PM CDT): - SSI - f/u nutrition recs Assessment & Plan (12/05/2024 4:47 PM CDT): - SSI - f/u nutrition recs Assessment & Plan (12/04/2024 2:08 PM CDT): - SSI - f/u nutrition recs Assessment & Plan (12/03/2024 6:06 PM CDT): - SSI - f/u nutrition recs Assessment & Plan (12/02/2024 2:26 PM CDT): - SSI - f/u nutrition recs Assessment & Plan (12/01/2024 9:54 AM CDT): - SSI - f/u nutrition recs Assessment & Plan (11/30/2024 1:01 PM CDT): - SSI - f/u nutrition recs Assessment & Plan (11/29/2024 11:20 AM CDT): - SSI - f/u nutrition recs Assessment & Plan (11/28/2024 1:42 PM CDT): - SSI - f/u nutrition recs Assessment & Plan (11/27/2024 10:16 AM CDT): - SSI - f/u nutrition recs Assessment & Plan (11/26/2024 12:13 PM CDT): - SSI - f/u nutrition recs Assessment & Plan (11/25/2024 3:35 PM CDT): - SSI - f/u nutrition recs Assessment & Plan (11/24/2024 8:49 AM CDT): - SSI - f/u nutrition recs Assessment & Plan (11/23/2024 1:10 PM CDT): - SSI - f/u nutrition recs Assessment & Plan (11/22/2024 12:21 PM CDT): - SSI - f/u nutrition recs Assessment & Plan (11/21/2024 3:38 PM CDT): - SSI - f/u nutrition recs Assessment & Plan (11/20/2024 3:42 PM CDT): - SSI - f/u nutrition recs Assessment & Plan (11/19/2024 12:57 PM CDT): - SSI - f/u nutrition recs Assessment & Plan (11/18/2024 6:00 PM CDT): - SSI - f/u nutrition recs Acidosis 11/08/2024 02/25/2025 Assessment & Plan (02/25/2025 6:23 AM CHEF): Unclear etiology, may be 2/2 sodium thiosulfate treatment. - CTM, consider sodium bicarb tablets if bicarb<22 Assessment & Plan (02/24/2025 1:45 PM CHEF): Unclear etiology, may be 2/2 sodium thiosulfate treatment. - CTM, consider sodium bicarb tablets if bicarb<22 Assessment & Plan (12/10/2024 8:41 AM CDT): Likely etiology is stool output - start bicarb -> improved from 12/06 to 12/07 - ok for sodium thiosulfate, just treat underlying acidosis Assessment & Plan (12/09/2024 8:35 AM CDT): Likely etiology is stool output - start bicarb -> improved from 12/06 to 12/07 - ok for sodium thiosulfate, just treat underlying acidosis Assessment & Plan (12/08/2024 2:09 PM CDT): Likely etiology is stool output - start bicarb -> improved from 12/06 to 12/07 - ok for sodium thiosulfate, just treat underlying acidosis Assessment & Plan (12/07/2024 1:18 PM CDT): Likely etiology is stool output - start bicarb -> improved from 12/06 to 12/07 - ok for sodium thiosulfate, just treat underlying acidosis Assessment & Plan (12/06/2024 2:19 PM CDT): Likely etiology is stool output - start bicarb - ok for sodium thiosulfate, just treat underlying acidosis Assessment & Plan (11/11/2024 3:08 PM CDT): Etiology: Recurrent UTIs 2/2 colovesical fistula suspected 2/2 recurrent diverticulitis. Admitted on 10/30 iso fever, N/V, increasing abdominal pain. Has been hospitalized 3x since June for similar issues. 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 09/14-09/29: presented for abdominal pain, CT showed sequela of colocolonic fistulae 2/2 complicated diverticulitis. 10/06-10/22 presented for n/v, CT showed acute on chronic diverticulitis with increased inflammation around bladder and sigmoid colon. Imaging this admission: CT abdomen (10/30) showed no new changes. No acute diverticulitis. Given that CRS (10/15) note mentioned that intervention would not be possible during a diverticulitis flare, GI consulted to bill. EGD/ [place] done on 11/03. EGD unremarkable, colonoscopy showed moderate diverticulosis, extrinsic colonic narrowing a/w diverticular opening (fistula not seen). Exam was otherwise normal. Okay to proceed with CRS surgery per GI. Work-up: -UA with 3+ leukocyte esterase, 4+ bacteria. Last urine culture 09/25 showed enterococcus faecium only susceptible to linezolid -CT bilateral femur: no abscess or osteoarthritis. -Urine cx contaminated -10/31 blood cx NGTD Abx: S/p Augmentin (10/30-10/21); Unasyn IV (11/01- 11/05); zosyn 4.5mg IV (11/05- present) + linezolid IV (was home med-present) Plan: - Planned for CRS interventions today sigmoidectomy + colovesicular fistula taken down with primary anastomosis to reduce significant morbidity anticipated with end colostomy vs emergent sigmoidectomy and end colostomy without option for reversal for an extended period of time and until significant weight loss achieved. > Patient will be transferred to CRS care post op. -ID following, recs appreciated -Pain regimen: tylenol 1 g tid scheduled, oxycodone, dilaudid. Also has home gabapentin, oxybutynin, topamax, robaxin continued. Pain management consulted, per their recommendation, adjusted robaxin and gabapentin dosage. Pain team had added amitriptyline which was discontinued on 11/07 for risk of serotonin syndrome w simultaneous use of escitalopram, amitriptyline and linezolid. -Continue TPN due to stool frequently blocking mcclelland during previous hospital stay. Clear liquid diet. -Mcclelland changed 10/30; if repeat UA/ UCx needed will need to be switched to obtain sample. - Increasing acidosis noted on labs as of 11/08, will hold sodium thiosulfate, sepsis workup unrevealing and pt continues to be stable at this time. Bicarb stable as well, will CTM and plan to resume sodium thiosulfate post-OP. 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 Admitted on 10/30 iso fever, N/V, increasing abdominal pain. Has been hospitalized 3x since June for similar issues. 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 09/14-09/29: presented for abdominal pain, CT showed sequela of colocolonic fistulae 2/2 complicated diverticulitis. 10/06-10/22 presented for n/v, CT showed acute on chronic diverticulitis with increased inflammation around bladder and sigmoid colon. Imaging this admission: CT abdomen (10/30) showed no new changes. No acute diverticulitis. Given that CRS (10/15) note mentioned that intervention would not be possible during a diverticulitis flare, GI consulted to bill. EGD/ [place] done on 11/03. EGD unremarkable, colonoscopy showed moderate diverticulosis, extrinsic colonic narrowing a/w diverticular opening (fistula not seen). Exam was otherwise normal. Okay to proceed with CRS surgery per GI. Potential CRS interventions: sigmoidectomy + colovesicular fistula taken down with primary anastomosis to reduce significant morbidity anticipated with end colostomy vs emergent sigmoidectomy and end colostomy without option for reversal for an extended period of time and until significant weight loss achieved. Since prior admit, pt has achieved ~100 lb weight loss. CRS re-engaged this admit. Work-up: -UA with 3+ leukocyte esterase, 4+ bacteria. Last urine culture 09/25 showed enterococcus faecium only susceptible to linezolid -CT bilateral femur: no abscess or osteoarthritis. -Urine cx contaminated -10/31 blood cx NGTD Abx: S/p Augmentin (10/30-10/21); Unasyn IV (11/01- 11/05); zosyn 4.5mg IV (11/05- present) + linezolid IV (was home med-present) Plan: -CRS planning for surgery on 11/11; NPO after MN on 11/11; will continue CLD and TPN until the night prior to sx. TPN can continue till the day of. Continue abx as above. Consulted inpatient anesthesia and wound ostomy for ostomy site marking per their request. PreOP abx ordered by CRS. -ID following, recs appreciated -Pain regimen: tylenol 1 g tid scheduled, oxycodone, dilaudid. Also has home gabapentin, oxybutynin, topamax, robaxin continued. Pain management consulted, per their recommendation, adjusted robaxin and gabapentin dosage. Pain team had added amitriptyline which was discontinued on 11/07 for risk of serotonin syndrome w simultaneous use of escitalopram, amitriptyline and linezolid. -Continue TPN due to stool frequently blocking mcclelland during previous hospital stay. Clear liquid diet. -Mcclelland changed 10/30; if repeat UA/ UCx needed will need to be switched to obtain sample. - Increasing acidosis noted on labs as of 11/08, will hold sodium thiosulfate, sepsis workup unrevealing and pt continues to be stable at this time. Bicarb stable as well, will CTM and plan to resume sodium thiosulfate post-OP. 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 Admitted on 10/30 iso fever, N/V, increasing abdominal pain. Has been hospitalized 3x since June for similar issues. 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 09/14-09/29: presented for abdominal pain, CT showed sequela of colocolonic fistulae 2/2 complicated diverticulitis. 10/06-10/22 presented for n/v, CT showed acute on chronic diverticulitis with increased inflammation around bladder and sigmoid colon. Imaging this admission: CT abdomen (10/30) showed no new changes. No acute diverticulitis. Given that CRS (06/25) note mentioned that intervention would not be possible during a diverticulitis flare, GI consulted to bill. EGD/ [place] done on 11/03. EGD unremarkable, colonoscopy showed moderate diverticulosis, extrinsic colonic narrowing a/w diverticular opening (fistula not seen). Exam was otherwise normal. Okay to proceed with CRS surgery per GI. Potential CRS interventions: sigmoidectomy + colovesicular fistula taken down with primary anastomosis to reduce significant morbidity anticipated with end colostomy vs emergent sigmoidectomy and end colostomy without option for reversal for an extended period of time and until significant weight loss achieved. Since prior admit, pt has achieved ~100 lb weight loss. CRS re-engaged this admit. Work-up: -UA with 3+ leukocyte esterase, 4+ bacteria. Last urine culture 09/25 showed enterococcus faecium only susceptible to linezolid -CT bilateral femur: no abscess or osteoarthritis. -Urine cx contaminated -10/31 blood cx NGTD Abx: S/p Augmentin (10/30-10/21); Unasyn IV (11/01- 11/05); zosyn 4.5mg IV (11/05- present) + linezolid IV (was home med-present) Plan: -CRS planning for surgery on 11/11; NPO after MN on 11/11; will continue CLD and TPN until the night prior to sx. Continue abx as above. Consulted inpatient anesthesia and wound ostomy for ostomy site marking per their request. PreOP abx ordered by CRS. -ID following, recs appreciated -Pain regimen: tylenol 1 g tid scheduled, oxycodone, dilaudid. Also has home gabapentin, oxybutynin, topamax, robaxin continued. Pain management consulted, per their recommendation, adjusted robaxin and gabapentin dosage. Pain team had added amitriptyline which was discontinued on 11/07 for risk of serotonin syndrome w simultaneous use of escitalopram, amitriptyline and linezolid. -Continue TPN due to stool frequently blocking mcclelland during previous hospital stay. Clear liquid diet. -Mcclelland changed 10/30; if repeat UA/ UCx needed will need to be switched to obtain sample. - Increasing acidosis noted on labs as of 11/08, will hold sodium thiosulfate, sepsis workup unrevealing and pt continues to be stable at this time. Bicarb stable as well, will CTM and plan to resume sodium thiosulfate post-OP. 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 Admitted on 10/30 iso fever, N/V, increasing abdominal pain. Has been hospitalized 3x since June for similar issues. 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 09/14-09/29: presented for abdominal pain, CT showed sequela of colocolonic fistulae 2/2 complicated diverticulitis. 10/06-10/22 presented for n/v, CT showed acute on chronic diverticulitis with increased inflammation around bladder and sigmoid colon. Imaging this admission: CT abdomen (10/30) showed no new changes. No acute diverticulitis. Given that CRS (10/15) note mentioned that intervention would not be possible during a diverticulitis flare, GI consulted to bill. EGD/ [place] done on 11/03. EGD unremarkable, colonoscopy showed moderate diverticulosis, extrinsic colonic narrowing a/w diverticular opening (fistula not seen). Exam was otherwise normal. Okay to proceed with CRS surgery per GI. Potential CRS interventions: sigmoidectomy + colovesicular fistula taken down with primary anastomosis to reduce significant morbidity anticipated with end colostomy vs emergent sigmoidectomy and end colostomy without option for reversal for an extended period of time and until significant weight loss achieved. Since prior admit, pt has achieved ~100 lb weight loss. CRS re-engaged this admit. Work-up: -UA with 3+ leukocyte esterase, 4+ bacteria. Last urine culture 09/25 showed enterococcus faecium only susceptible to linezolid -CT bilateral femur: no abscess or osteoarthritis. -Urine cx contaminated -10/31 blood cx NGTD Abx: S/p Augmentin (10/30-10/21); Unasyn IV (11/01- 11/05); zosyn 4.5mg IV (11/05- present) + linezolid IV (was home med-present) Plan: -CRS planning for surgery on 11/11; NPO after MN on 11/11; will continue CLD and TPN until the night prior to sx. Continue abx as above. Consulted inpatient anesthesia and wound ostomy for ostomy site marking per their request. -ID following, recs appreciated -Pain regimen: tylenol 1 g tid scheduled, oxycodone, dilaudid. Also has home gabapentin, oxybutynin, topamax, robaxin continued. Pain management consulted, per their recommendation, adjusted robaxin and gabapentin dosage. Pain team had added amitriptyline which was discontinued on 11/07 for risk of serotonin syndrome w simultaneous use of escitalopram, amitriptyline and linezolid. -Continue TPN due to stool frequently blocking mcclelland during previous hospital stay. Clear liquid diet. -Mcclelland changed 10/30; if repeat UA/ UCx needed will need to be switched to obtain sample. - Increasing acidosis noted on labs as of 11/08, will discontinue sodium thiosulfate and pursue sepsis workup including BCx and RUQ US. Elevated liver enzymes 11/07/202411/18 Assessment & Plan (11/11/2024 3:08 PM CDT): Steady rise in liver enzymes noted on labs over the past few days. No other signs of liver dyfsunction. Upon review of meds: Of the medication she is on, linezolid and zolpidem has a minor association with increased liver enzymes. The others do not appear to have any significant association. RUQ US checked was normal, will CTM. Assessment & Plan (11/10/2024 1:56 PM CDT): Steady rise in liver enzymes noted on labs over the past few days. No other signs of liver dyfsunction. Upon review of meds: Of the medication she is on, linezolid and zolpidem has a minor association with increased liver enzymes. The others do not appear to have any significant association. RUQ US checked was normal, will CTM. Assessment & Plan (11/09/2024 7:26 AM CDT): Steady rise in liver enzymes noted on labs over the past few days. No other signs of liver dyfsunction. Upon review of meds: Of the medication she is on, linezolid and zolpidem has a minor association with increased liver enzymes. The others do not appear to have any significant association. Plan: - Will check RUQ US as mentioned above. Assessment & Plan (11/08/2024 2:49 PM CDT): Steady rise in liver enzymes noted on labs over the past few days. No other signs of liver dyfsunction. Upon review of meds: Of the medication she is on, linezolid and zolpidem has a minor association with increased liver enzymes. The others do not appear to have any significant association. Plan: - Will check RUQ US as mentioned above. Assessment & Plan (11/07/2024 1:40 PM CDT): Steady rise in liver enzymes noted on labs over the past few days. No other signs of liver dyfsunction. Upon review of meds: Of the medication she is on, linezolid and zolpidem has a minor association with increased liver enzymes. The others do not appear to have any significant association. Plan: - Will discuss w RD to see whether there is any utility to reducing her TPN dosing, as there is some noted concerns in literature about LFT derangement in pts on TPN. - CTM liver enzymes, will check bilirubin and INR w AM labs. - Tylenol dose reduced to 1g BID Chronic indwelling Mcclelland catheter 10/07/2024 10/13/2024 Assessment & Plan (10/12/2024 11:25 AM CDT): For chronic urinary retention. Dislodged prior to arrival, re-inserted. S/p exchange in the ED. Mcclelland removal tolerated well. - Did fine with trial of mcclelland removed. Will keep mcclelland out. Assessment & Plan (10/11/2024 10:03 AM CDT): For chronic urinary retention. Dislodged prior to arrival, re-inserted. S/p exchange in the ED. Mcclelland removal tolerated well. - Did fine with trial of mcclelland removed. Will keep mcclelland out. Assessment & Plan (10/10/2024 2:50 PM CDT): For chronic urinary retention. Dislodged prior to arrival, re-inserted. S/p exchange in the ED. Mcclelland removal tolerated well. - Did fine with trial of mcclelland removed. Will keep mcclelland out. Assessment & Plan (10/09/2024 10:57 AM CDT): For chronic urinary retention. Dislodged prior to arrival, re-inserted. S/p exchange in the ED. Mcclelland removal tolerated well. - mcclelland removal with q6hr bladder scan, unclear need for chronic mcclelland. Assessment & Plan (10/08/2024 3:33 PM CDT): For chronic urinary retention. Dislodged prior to arrival, re-inserted. S/p exchange in the ED. - Trial mcclelland removal with q6hr bladder scan, unclear need for chronic mcclelland Assessment & Plan (10/07/2024 7:16 AM CDT): For chronic urinary retention. Dislodged prior to arrival, re-inserted. S/p exchange in the ED. -UCx -continue home oxybutynin RANDOLPH on CKD 09/27/2024 11/18/2024 Assessment & Plan (11/11/2024 3:08 PM CDT): Baseline creatinine seems to be 1.2-1.4 since her admission in June 2024. -Cr had uptrended, improved w IVF. Now uptrending again. - Will CTM. Assessment & Plan (11/10/2024 1:56 PM CDT): Baseline creatinine seems to be 1.2-1.4 since her admission in June 2024. -Cr had uptrended, improved w IVF. Now uptrending again. - Will CTM. Assessment & Plan (11/09/2024 7:26 AM CDT): Baseline creatinine seems to be 1.2-1.4 since her admission in June 2024. -Cr had uptrended, improved w IVF. - Will CTM. Assessment & Plan (11/08/2024 8:50 AM CDT): Baseline creatinine seems to be 1.2-1.4 since her admission in June 2024. -Cr had uptrended, improved w IVF. - Will CTM. Assessment & Plan (11/07/2024 7:56 AM CDT): Baseline creatinine seems to be 1.2-1.4 since her admission in June 2024. -Cr had uptrended, improved w IVF. - Will CTM. Assessment & Plan (11/06/2024 9:12 AM CDT): Baseline creatinine seems to be 1.2-1.4 since her admission in June 2024. -Cr had uptrended, improved w IVF. - Will CTM. Assessment & Plan (11/05/2024 7:22 AM CDT): Baseline creatinine seems to be 1.2-1.4 since her admission in June 2024. -Cr had uptrended, improved w IVF. - Will CTM. Assessment & Plan (11/04/2024 5:53 PM CDT): Baseline creatinine seems to be 1.2-1.4 since her admission in June 2024. -Cr had uptrended, improved w IVF. - Will CTM. Assessment & Plan (11/03/2024 3:28 PM CDT): Baseline creatinine seems to be 1.2-1.4 since her admission in June 2024. -Cr uptrending, likely d/t prerenal randolph -continue IVF -trend BMP Assessment & Plan (11/02/2024 12:58 PM CDT): Baseline creatinine seems to be 1.2-1.4 since her admission in June 2024. -Cr uptrending, likely d/t prerenal randolph -continue IVF Assessment & Plan (11/01/2024 11:36 AM CDT): Baseline creatinine seems to be 1.2-1.4 since her admission in June 2024. -Cr uptrending, likely d/t prerenal randolph -Obtain urine studies -Start IVF Assessment & Plan (10/31/2024 7:30 AM CDT): Baseline creatinine seems to be 1.2-1.4 since her admission in June 2024. -Continue to monitor Cr Assessment & Plan (10/31/2024 2:50 AM CDT): Baseline creatinine seems to be 1.2-1.4 since her admission in June 2024. -Continue to monitor Cr Assessment & Plan (10/22/2024 11:35 AM CDT): Baseline Cr 1-1.3. Cr on admission 1.23. Elevated to 1.7 on 10/08 consistent with RANDOLPH on CKD, improved with fluids. - Monitoring labs daily with TPN Assessment & Plan (10/21/2024 6:17 PM CDT): Baseline Cr 1-1.3. Cr on admission 1.23. Elevated to 1.7 on 10/08 consistent with RANDOLPH on CKD, improved with fluids. - Monitoring labs daily with TPN Assessment & Plan (10/20/2024 3:03 PM CDT): BL Cr 1-1.3. Cr on admit 1.23. Elevated to 1.7 on 10/08 consistent with RANDOLPH on CKD, improved with fluids. - Monitoring labs daily for TPN Assessment & Plan (10/19/2024 9:31 AM CDT): BL Cr 1-1.3. Cr on admit 1.23. Elevated to 1.7 on 10/08 consistent with RANDOLPH on CKD, improved with fluids. - Monitoring labs daily for TPN Assessment & Plan (10/18/2024 8:51 AM CDT): BL Cr 1-1.3. Cr on admit 1.23. Elevated to 1.7 on 10/08 consistent with RANDOLPH on CKD, improved with fluids. - Monitoring labs daily for TPN Assessment & Plan (10/17/2024 1:19 PM CDT): BL Cr 1-1.3. Cr on admit 1.23. Elevated to 1.7 on 618 consistent with RANDOLPH on CKD, improved with fluids. - Monitoring labs daily for TPN Assessment & Plan (10/16/2024 1:02 PM CDT): BL Cr 1-1.3. Cr on admit 1.23. Elevated to 1.7 on 618 consistent with RANDOLPH on CKD, improved with fluids. - Weekly CMP Assessment & Plan (10/15/2024 10:10 AM CDT): BL Cr 1-1.3. Cr on admit 1.23. Elevated to 1.7 on 6 consistent with RANDOLPH on CKD, improved with fluids. - Daily CMP Assessment & Plan (10/14/2024 9:34 AM CDT): BL Cr 1-1.3. Cr on admit 1.23. Elevated to 1.7 on 10/08 consistent with RANDOLPH on CKD, improved with fluids. - Daily CMP Assessment & Plan (10/13/2024 5:52 PM CDT): BL Cr 1-1.3. Cr on admit 1.23. Elevated to 1.7 on 618 consistent with RANDOLPH on CKD, improved with fluids. - Daily CMP Assessment & Plan (10/12/2024 11:25 AM CDT): BL Cr 1-1.3. Cr on admit 1.23. Elevated to 1.7 on 618 consistent with RANDOLPH on CKD, improved with fluids. - Daily CMP Assessment & Plan (10/11/2024 10:03 AM CDT): BL Cr 1-1.3. Cr on admit 1.23. Elevated to 1.7 on 618 consistent with RANDOLPH on CKD, improved with fluids. - Daily CMP Assessment & Plan (10/10/2024 2:50 PM CDT): BL Cr 1-1.3. Cr on admit 1.23. Elevated to 1.7 on 10/08 consistent with RANDOLPH on CKD, improved with fluids. - Daily CMP Assessment & Plan (10/09/2024 10:57 AM CDT): BL Cr 1-1.3. Cr on admit 1.23 - Daily CMP Assessment & Plan (10/08/2024 3:33 PM CDT): BL Cr 1-1.3. Cr on admit 1.23 - Daily CMP Assessment & Plan (10/07/2024 7:16 AM CDT): BL Cr 1-1.3. Cr on admit 1.23 - Daily CMP Assessment & Plan (09/29/2024 6:14 PM CDT): Baseline creatinine seems to be around 1.1 since May 2024. Had RANDOLPH during her last admission - CT scan from 09/24 with lobulated kidneys; Left kidney is diminutive in size, unchanged. Interval improvement in mild perinephric stranding on the right. No hydronephrosis. Of note, patient insisted on repeat CT despite discussing risk/benefit and likelihood of not revealing any new findings. - Serum creatinine has been ranging between 1.3-1.7--> improved 1.1 today - Continue to monitor - Avoid nephrotoxic medications Assessment & Plan (09/28/2024 8:11 AM CDT): Baseline creatinine seems to be around 1.1 since May 2024. Had RANDOLPH during her last admission - CT scan from 09/24 with lobulated kidneys; Left kidney is diminutive in size, unchanged. Interval improvement in mild perinephric stranding on the right. No hydronephrosis. Of note, patient insisted on repeat CT despite discussing risk/benefit and likelihood of not revealing any new findings. - Serum creatinine has been ranging between 1.3-1.7 - Continue to monitor - Avoid nephrotoxic medications Assessment & Plan (09/27/2024 5:51 PM CDT): Baseline creatinine seems to be around 1.1 since May 2024. Had RANDOLPH during her last admission - CT scan from 09/24 with lobulated kidneys; Left kidney is diminutive in size, unchanged. Interval improvement in mild perinephric stranding on the right. No hydronephrosis. Of note, patient insisted on repeat CT despite discussing risk/benefit and likelihood of not revealing any new findings. - Serum creatinine has been ranging between 1.3-1.7 - Continue to monitor - Avoid nephrotoxic medications Hypercalcemia 09/19/2024 03/02/2025 Assessment & Plan (03/02/2025 6:13 PM CHEF): Pt was called for a critical lab value of Ca 12.2 on 02/21/2025. On arrival, Ca was 12.3. Initial broad differential included bone resorption 2/2 immobility, malignancy, and familial hypocalciuric hypercalcemia syndrome. Most likely a result of bone resorption as CTPE ruled out visible lung nodules, though cannot rule out familial syndrome. Could also be dietary related, though pt denies Tums use. Plan: - Consider DEXA outpatient - f/u with PCP Assessment & Plan (03/01/2025 6:18 AM CHEF): Pt was called for a critical lab value of Ca 12.2 on 02/21/2025. On arrival, Ca was 12.3. Initial broad differential included bone resorption 2/2 immobility, malignancy, and familial hypocalciuric hypercalcemia syndrome. Most likely a result of bone resorption as CTPE ruled out visible lung nodules, though cannot rule out familial syndrome. Could also be dietary related, though pt denies Tums use. Plan: - Outpatient should get DEXA for ?bone resorp Assessment & Plan (02/28/2025 5:56 AM CHEF): Pt was called for a critical lab value of Ca 12.2 on 02/21/2025. On arrival, Ca was 12.3. Initial broad differential included bone resorption 2/2 immobility, malignancy, and familial hypocalciuric hypercalcemia syndrome. Most likely a result of bone resorption as CTPE ruled out visible lung nodules, though cannot rule out familial syndrome. Could also be dietary related, though pt denies Tums use. Plan: - Outpatient should get DEXA for ?bone resorp Assessment & Plan (02/27/2025 10:08 AM CHEF): Pt was called for a critical lab value of Ca 12.2 on 02/21/2025. On arrival, Ca was 12.3. Initial broad differential included bone resorption 2/2 immobility, malignancy, and familial hypocalciuric hypercalcemia syndrome. Most likely a result of bone resorption as CTPE ruled out visible lung nodules, though cannot rule out familial syndrome. Could also be dietary related, though pt denies Tums use. Plan: - Outpatient should get DEXA for ?bone resorp Assessment & Plan (02/26/2025 7:14 AM CHEF): Pt was called for a critical lab value of Ca 12.2 on 02/21/2025. On arrival, Ca was 12.3. Initial broad differential included bone resorption 2/2 immobility, malignancy, and familial hypocalciuric hypercalcemia syndrome. Most likely a result of bone resorption as CTPE ruled out visible lung nodules, though cannot rule out familial syndrome. Could also be dietary related, though pt denies Tums use. PLAN: - outpatient should get DEXA for ?bone resorp Assessment & Plan (02/25/2025 12:52 PM CHEF): Pt was called for a critical lab value of Ca 12.2 on 02/21/2025. On arrival, Ca was 12.3. Initial broad differential included bone resorption 2/2 immobility, malignancy, and familial hypocalciuric hypercalcemia syndrome. Most likely a result of bone resorption as CTPE ruled out visible lung nodules, though cannot rule out familial syndrome. Could also be dietary related, though pt denies Tums use. PLAN: - outpatient should get DEXA for ?bone resorp Assessment & Plan (02/24/2025 1:45 PM CHEF): Pt was called for a critical lab value of Ca 12.2 on 02/21/2025. OA, Ca was 12.3. Ddx includes bone resorption 2/2 immobility vs malig vs familial hypocalciuric hypercalcemia syndrome. Most likely bone resorption as CTPE ruled out visible lung nodules, though cannot rule out familial syndrome. Could also be dietary related, though pt denies Tums use. PLAN: - PTH, PTHrp, vit D ordered - If PTH related, consider bisphosphonates - outpatient should get DEXA for ?bone resorp Assessment & Plan (11/11/2024 3:08 PM CDT): Ca more elevated than previous baseline, likely 2/2 to dehydration - 7/12 PTH 9; vit D 31 -calcium improved w/ IVF Assessment & Plan (11/10/2024 7:55 AM CDT): Ca more elevated than previous baseline, likely 2/2 to dehydration - 7/12 PTH 9; vit D 31 -calcium improved w/ IVF Assessment & Plan (11/09/2024 7:26 AM CDT): Ca more elevated than previous baseline, likely 2/2 to dehydration - 7/12 PTH 9; vit D 31 -calcium improved w/ IVF Assessment & Plan (11/08/2024 8:50 AM CDT): Ca more elevated than previous baseline, likely 2/2 to dehydration - 7/12 PTH 9; vit D 31 -calcium improved w/ IVF Assessment & Plan (11/07/2024 7:56 AM CDT): Ca more elevated than previous baseline, likely 2/2 to dehydration - 7/12 PTH 9; vit D 31 -calcium improved w/ IVF Assessment & Plan (11/06/2024 9:12 AM CDT): Ca more elevated than previous baseline, likely 2/2 to dehydration - 7/12 PTH 9; vit D 31 -calcium improved w/ IVF Assessment & Plan (11/05/2024 7:22 AM CDT): Ca more elevated than previous baseline, likely 2/2 to dehydration - 7/12 PTH 9; vit D 31 -calcium improved w/ IVF Assessment & Plan (11/04/2024 5:53 PM CDT): Ca more elevated than previous baseline, likely 2/2 to dehydration - 11/01 PTH 9; vit D 31 -calcium improved w/ IVF Assessment & Plan (11/03/2024 3:28 PM CDT): Ca more elevated than previous baseline, likely 2/2 to dehydration - 11/01 PTH 9 - 11/01 vit D 31 -calcium improved w/ IVF Assessment & Plan (11/02/2024 12:58 PM CDT): Ca more elevated than previous baseline, likely 2/2 to dehydration - 11/01 PTH 9 - 11/01 vit D 31 Plan - continue IVF Assessment & Plan (11/01/2024 11:36 AM CDT): Ca more elevated than previous baseline, likely 2/2 to dehydration, tpn? - PTH 9 on 09/20/24 without PTHrP elevation. SPEP 09/20 showed no apparent monoclonal peak. Vitamin D WNL on 10/07/24. - recheck pth, vit d 25 - Start IVF Assessment & Plan (10/31/2024 7:30 AM CDT): Ca more elevated than previous baseline. PTH 9 on 09/20/24 without PTHrP elevation. SPEP 09/20 showed no apparent monoclonal peak. Vitamin D WNL on 10/07/24. -Recheck vitamin D level Assessment & Plan (10/31/2024 2:50 AM CDT): Ca more elevated than previous baseline. PTH 9 on 09/20/24 without PTHrP elevation. SPEP 09/20 showed no apparent monoclonal peak. Vitamin D WNL on 10/07/24. -Recheck vitamin D level Assessment & Plan (10/22/2024 11:35 AM CDT): On admission Ca 10.8. Noted to be hypercalcemic at prior admission PTH <6, vitamin D slightly low at 24. Patient was initially receiving calcium supplements. Unclear etiology, possibly due to immobility and calcium supplementation. Prior SPEP and PTHrp normal. -CTM, improved Assessment & Plan (10/21/2024 4:45 PM CDT): On admission Ca 10.8. Noted to be hypercalcemic at prior admission PTH <6, vitamin D slightly low at 24. Patient was initially receiving calcium supplements. Unclear etiology, possibly due to immobility and calcium supplementation. Prior SPEP and PTHrp normal. -CTM, improved Assessment & Plan (10/20/2024 3:03 PM CDT): On admission Ca 10.8. Noted to be hypercalcemic at prior admission PTH <6, vitamin D slightly low at 24. Patient was initially receiving calcium supplements. Unclear etiology, possibly due to immobility and calcium supplementation. Prior SPEP and PTHrp normal. -CTM, improved Assessment & Plan (10/19/2024 9:31 AM CDT): On admission Ca 10.8. Noted to be hypercalcemic at prior admission PTH <6, vitamin D slightly low at 24. Patient was initially receiving calcium supplements. Unclear etiology, possibly due to immobility and calcium supplementation. Prior SPEP and PTHrp normal. -CTM, improved Assessment & Plan (10/18/2024 8:51 AM CDT): On admission Ca 10.8. Noted to be hypercalcemic at prior admission PTH <6, vitamin D slightly low at 24. Patient was initially receiving calcium supplements. Unclear etiology, possibly due to immobility and calcium supplementation. Prior SPEP and PTHrp normal. -CTM, improved Assessment & Plan (10/17/2024 1:19 PM CDT): On admission Ca 10.8. Noted to be hypercalcemic at prior admission PTH <6, vitamin D slightly low at 24. Patient was initially receiving calcium supplements. Unclear etiology, possibly due to immobility and calcium supplementation. Prior SPEP and PTHrp normal. -CTM, improved Assessment & Plan (10/16/2024 1:02 PM CDT): On admission Ca 10.8. Noted to be hypercalcemic at prior admission PTH <6, vitamin D slightly low at 24. Patient was initially receiving calcium supplements. Unclear etiology, possibly due to immobility and calcium supplementation. Prior SPEP and PTHrp normal. -CTM, improved Assessment & Plan (10/15/2024 10:10 AM CDT): On admission Ca 10.8. Noted to be hypercalcemic at prior admission PTH <6, vitamin D slightly low at 24. Patient was initially receiving calcium supplements. Unclear etiology, possibly due to immobility and calcium supplementation. Prior SPEP and PTHrp normal. -CTM, improved Assessment & Plan (10/14/2024 9:34 AM CDT): On admission Ca 10.8. Noted to be hypercalcemic at prior admission PTH <6, vitamin D slightly low at 24. Patient was initially receiving calcium supplements. Unclear etiology, possibly due to immobility and calcium supplementation. Prior SPEP and PTHrp normal. -CTM, improved Assessment & Plan (10/13/2024 5:52 PM CDT): On admission Ca 10.8. Noted to be hypercalcemic at prior admission PTH <6, vitamin D slightly low at 24. Patient was initially receiving calcium supplements. Unclear etiology, possibly due to immobility and calcium supplementation. Prior SPEP and PTHrp normal. -CTM, improved Assessment & Plan (10/12/2024 11:25 AM CDT): On admission Ca 10.8. Noted to be hypercalcemic at prior admission PTH <6, vitamin D slightly low at 24. Patient was initially receiving calcium supplements. Unclear etiology, possibly due to immobility and calcium supplementation. Prior SPEP and PTHrp normal. -CTM, improved Assessment & Plan (10/11/2024 10:03 AM CDT): On admission Ca 10.8. Noted to be hypercalcemic at prior admission PTH <6, vitamin D slightly low at 24. Patient was initially receiving calcium supplements. Unclear etiology, possibly due to immobility and calcium supplementation. Prior SPEP and PTHrp normal. -CTM, improved Assessment & Plan (10/10/2024 2:50 PM CDT): On admission Ca 10.8. Noted to be hypercalcemic at prior admission PTH <6, vitamin D slightly low at 24. Patient was initially receiving calcium supplements. Unclear etiology, possibly due to immobility and calcium supplementation. Prior SPEP and PTHrp normal. -CTM, improved Assessment & Plan (10/09/2024 10:57 AM CDT): On admission Ca 10.8. Noted to be hypercalcemic at prior admission PTH <6, vitamin D slightly low at 24. Patient was initially receiving calcium supplements. Unclear etiology, possibly due to immobility and calcium supplementation. Prior SPEP and PTHrp normal. -CTM, improved Assessment & Plan (10/08/2024 3:33 PM CDT): On admission Ca 10.8. Noted to be hypercalcemic at prior admission PTH <6, vitamin D slightly low at 24. Patient was initially receiving calcium supplements. Unclear etiology, possibly due to immobility and calcium supplementation. Prior SPEP and PTHrp normal. -CTM, improved Assessment & Plan (10/07/2024 7:16 AM CDT): On admission Ca 10.8. Noted to be hypercalcemic at prior admission PTH <6, vitamin D slightly low at 24. Patient was initially receiving calcium supplements. Unclear etiology, possibly due to immobility and calcium supplementation. Prior SPEP and PTHrp normal. -CTM; george if persistent Assessment & Plan (09/29/2024 7:57 AM CDT): Ca up trended since admission (8.9 -> 10.6 -> 11.7 -> 12.0) with elevated ionized calcium. PTH <6, vitamin D slightly low at 24. Patient was initially receiving calcium supplements. Unclear etiology, possibly due to immobility and calcium supplementation - holding calcitriol for now - Improved with IV fluids (Ca 12.2 > 11.6 > 11.1 > 10.3), calcium down trended, ionized calcium is slightly elevated - SPEP with normal kappa/lambda ratio. PTHrp is negative - Encourage mobility as able - Recommend follow up with the PCP for monitoring and referrals if still elevated Assessment & Plan (09/28/2024 8:11 AM CDT): Ca up trended since admission (8.9 -> 10.6 -> 11.7 -> 12.0) with elevated ionized calcium. PTH <6, vitamin D slightly low at 24. Patient was initially receiving calcium supplements. Unclear etiology, possibly due to immobility and calcium supplementation - holding calcitriol for now - Improved with IV fluids (Ca 12.2 > 11.6 > 11.1 > 10.3), calcium down trended, ionized calcium is slightly elevated - SPEP with normal kappa/lambda ratio. PTHrp is negative - Encourage mobility as able - Recommend follow up with the PCP for monitoring and referrals if still elevated Assessment & Plan (09/27/2024 5:51 PM CDT): Ca up trended since admission (8.9 -> 10.6 -> 11.7 -> 12.0) with elevated ionized calcium. PTH <6, vitamin D slightly low at 24. Patient was initially receiving calcium supplements. Unclear etiology, possibly due to immobility and calcium supplementation - holding calcitriol for now - Improved with IV fluids (Ca 12.2 > 11.6 > 11.1 > 10.3), calcium down trended, ionized calcium is slightly elevated - SPEP with normal kappa/lambda ratio. PTHrp is negative - Encourage mobility as able - Recommend follow up with the PCP for monitoring and referrals if still elevated Assessment & Plan (09/26/2024 3:31 PM CDT): Ca up trended since admission (8.9 -> 10.6 -> 11.7 -> 12.0) with elevated ionized calcium. PTH <6, vitamin D slightly low at 24. Patient was initially receiving calcium supplements. Unclear etiology, possibly due to immobility and calcium supplementation - holding calcitriol for now - Improved with IV fluids (Ca 12.2 > 11.6 > 11.1 > 10.3), calcium level normalized, ionized calcium is slightly elevated - SPEP with normal kappa/lambda ratio. PTHrp is negative Assessment & Plan (09/25/2024 5:06 PM CDT): Ca up trended since admission (8.9 -> 10.6 -> 11.7 -> 12.0) with elevated ionized calcium. PTH <6, vitamin D slightly low at 24. Patient was initially receiving calcium supplements. Unclear etiology, possibly due to immobility and calcium supplementation - holding calcitriol for now - Improved with IV fluids (Ca 12.2 > 11.6 > 11.1 > 10.3), calcium level normalized, ionized calcium is slightly elevated - SPEP with normal kappa/lambda ratio. PTHrp is pending Assessment & Plan (09/24/2024 6:39 PM CDT): Ca up trended since admission (8.9 -> 10.6 -> 11.7 -> 12.0) with elevated ionized calcium. PTH <6, vitamin D slightly low at 24. Patient was initially receiving calcium supplements. Unclear etiology, possibly due to immobility and calcium supplementation - holding calcitriol for now - Improved with IV fluids (Ca 12.2 > 11.6 > 11.1 > 10.3), ionized calcium slightly elevated but downtrending - SPEP with normal kappa/lambda ratio. PTHrp is pending Assessment & Plan (09/23/2024 4:32 PM CDT): Ca up trended since admission (8.9 -> 10.6 -> 11.7 -> 12.0) with elevated ionized calcium. PTH <6, vitamin D slightly low at 24. Patient was initially receiving calcium supplements. Unclear etiology, possibly due to immobility and calcium supplementation - holding calcitriol for now - improving with IV fluids (Ca 12.2 > 11.6 > 11.1 > 10.3) - Ordered PTHrp, SPEP, and FLC for further work-up; follow the results Assessment & Plan (09/22/2024 1:19 PM CDT): Ca uptrending since admission (8.9 -> 10.6 -> 11.7 -> 12.0). PTH <6, vitamin D slightly low at 24. Patient was initially receiving calcium supplements. Unclear etiology, possibly due to immobility and calcium supplementation. - holding calcitriol - improving with IV fluids (Ca 12.2 -> 11.6 -> 11.1) - will check PTHrp, SPEP, and FLC for further work-up Assessment & Plan (09/21/2024 1:47 PM CDT): Ca uptrending over the course of this admission (8.9 -> 10.6 -> 11.7 -> 12.0). PTH <6, vitamin D slightly low at 24. Patient was initially receiving calcium supplements. Unclear etiology, possibly due to immobility and calcium supplementation. - holding calcitriol - improving with IV fluids (Ca 12.2 -> 11.6 -> 11.1) - will check PTHrp, SPEP, and FLC for further work-up Assessment & Plan (09/20/2024 12:59 PM CDT): Ca uptrending over the course of this admission (8.9 -> 10.6 -> 11.7 -> 12.0). PTH <6, vitamin D slightly low at 24. Patient was receiving calcium supplements, now on hold. Unclear etiology, possibly due to immobility and calcium supplementation. - some improvement with IV fluids (Ca 12.2 -> 11.6), will give additional fluids today - will check PTHrp, SPEP, and FLC for further work-up Assessment & Plan (09/19/2024 2:12 PM CDT): Ca uptrending over the course of this admission (8.9 -> 10.6 -> 11.7 -> 12.0). PTH <6, vitamin D slightly low at 24. Patient was receiving calcium supplements, now on hold. Unclear etiology, possibly due to immobility and calcium supplementation. - will give 1L NS today - will check PTHrp, SPEP, and FLC for further work-up Acute hypoxic respiratory failure 08/11/2024 11/18/2024 Assessment & Plan (09/05/2024 1:34 PM CDT): Mild hypoxia d/t deconditioning from prolonged hospital stay, obesity, multifactorial etiology including undiagnosed ADOLFO and OHS. - start overnight NPPV as tolerated, delivered to room on 09/02 but patient did not attempt already asleep, attempted 09/03 and found too claustrophobic, 09/04, 09/05 able to use it for short periods of time, counselled and encouraged to use CPAP -continue incentive spirometer -She is found to be on 4 L oxygen through nasal cannula, obtain chest x-ray - Assessment & Plan (09/04/2024 3:38 PM CDT): Mild hypoxia d/t deconditioning from prolonged hospital stay, obesity, multifactorial etiology including undiagnosed ADOLFO and OHS. - start overnight NPPV as tolerated, delivered to room on 09/02 but patient did not attempt already asleep, attempted 09/03 and found too claustrophobic. -continue incentive spirometer -Attempt to wean from 2 L oxygen through nasal cannula, if unable obtain home oxygen eval. Assessment & Plan (09/04/2024 12:00 AM CDT): Mild hypoxia d/t deconditioning from prolonged hospital stay, obesity, undiagnosed ADOLFO - now off oxygen -continue incentive spirometer Assessment & Plan (09/02/2024 10:16 PM CDT): Mild hypoxia d/t deconditioning from prolonged hospital stay, obesity, undiagnosed ADOLFO - now off oxygen -continue incentive spirometer Assessment & Plan (09/01/2024 6:41 PM CDT): Mild hypoxia d/t deconditioning from prolonged hospital stay, obesity, undiagnosed ADOLFO - now off oxygen -continue incentive spirometer Assessment & Plan (08/31/2024 7:41 AM CDT): Mild hypoxia d/t deconditioning from prolonged hospital stay, obesity, undiagnosed ADOLFO - now off oxygen -continue incentive spirometer Assessment & Plan (08/30/2024 10:28 PM CDT): Mild hypoxia d/t deconditioning from prolonged hospital stay, obesity, undiagnosed ADOLFO - now off oxygen -continue incentive spirometer Assessment & Plan (08/23/2024 1:59 PM CDT): Mild hypoxia d/t deconditioning from prolonged hospital stay, obesity, undiagnosed ADOLFO Plan -on 2L NC, wean off oxygen as tolerated, goal spo2>90 -continue incentive spirometer -out of bed to chair Assessment & Plan (08/22/2024 2:16 PM CDT): Mild hypoxia d/t deconditioning from prolonged hospital stay, obesity, undiagnosed ADOLFO Plan -on 2L NC, wean off oxygen as tolerated, goal [id number]>[id number] -continue incentive spirometer -out of bed to chair Assessment & Plan (08/21/2024 3:20 PM CDT): Mild hypoxia d/t deconditioning from prolonged hospital stay, obesity, undiagnosed ADOLFO Plan -on 2L NC, wean off oxygen as tolerated, goal [id number]>90 -continue incentive spirometer -out of bed to chair Assessment & Plan (08/20/2024 4:38 PM CDT): Mild hypoxia d/t deconditioning from prolonged hospital stay, obesity, undiagnosed ADOLFO Plan -on 2L NC, wean off oxygen as tolerated, goal [id number]>90 -continue incentive spirometer -out of bed to chair Assessment & Plan (08/19/2024 4:21 PM CDT): Mild hypoxia d/t deconditioning from prolonged hospital stay, obesity, undiagnosed ADOLFO Plan -on 2L NC, wean off oxygen as tolerated, goal [id number]>90 -continue incentive spirometer -out of bed to chair Assessment & Plan (08/18/2024 9:06 AM CDT): Mild hypoxia d/t deconditioning from prolonged hospital stay, obesity, undiagnosed ADOLFO Plan -on 2L NC, wean off oxygen as tolerated, goal spo2>90 -continue incentive spirometer -out of bed to chair Assessment & Plan (08/17/2024 11:46 AM CDT): Mild hypoxia d/t deconditioning from prolonged hospital stay, obesity, undiagnosed ADOLFO Plan -on 2L NC, wean off oxygen as tolerated, goal spo2>90 -continue incentive spirometer -out of bed to chair Assessment & Plan (08/16/2024 10:30 AM CDT): Mild hypoxia d/t deconditioning from prolonged hospital stay, obesity, undiagnosed ADOLFO Plan -on 2L NC, wean off oxygen as tolerated, goal [id number] -continue incentive spirometer -out of bed to chair Assessment & Plan (08/15/2024 7:54 AM CDT): Mild hypoxia d/t deconditioning from prolonged hospital stay, obesity, undiagnosed ADOLFO Plan -on 2L NC, wean off oxygen as tolerated, goal [id number] -continue incentive spirometer -out of bed to chair Assessment & Plan (08/14/2024 11:49 AM CDT): Mild hypoxia d/t deconditioning from prolonged hospital stay, obesity, undiagnosed ADOLFO Plan -on 2L NC, wean off oxygen as tolerated, goal [id number] -continue incentive spirometer -out of bed to chair -Home oxygen assessment ordered Assessment & Plan (08/13/2024 1:27 PM CDT): Mild hypoxia d/t deconditioning from prolonged hospital stay, obesity, undiagnosed ADOLFO Plan -on 2L NC, wean off oxygen as tolerated, goal [id number] -continue incentive spirometer -out of bed to chair -if does not discharge to [facility], will need oxygen walking assessment if discharges home Assessment & Plan (08/12/2024 12:36 PM CDT): Mild hypoxia d/t deconditioning from prolonged hospital stay, obesity, undiagnosed ADOLFO Plan -on 2L NC, wean off oxygen as tolerated, goal spo2>[id number] -continue incentive spirometer -out of bed to chair -if does not discharge to [facility], will need oxygen walking assessment if discharges home Assessment & Plan (08/12/2024 8:09 AM CDT): Mild hypoxia d/t deconditioning from prolonged hospital stay, obesity, undiagnosed ADOLFO Plan -on 2L NC, wean off oxygen as tolerated, goal [id number] -continue incentive spirometer -out of bed to chair -if does not discharge to [facility], will need oxygen walking assessment if discharges home Assessment & Plan (08/11/2024 2:05 PM CDT): Mild hypoxia d/t deconditioning from prolonged hospital stay, obesity, undiagnosed ADOLFO Plan -on 2L NC, wean off oxygen as tolerated, goal [id number] -continue incentive spirometer -out of bed to chair -if does not discharge to [facility], will need oxygen walking assessment if discharges home RANDOLPH (acute kidney injury) 07/16/2024 Assessment & Plan (10/16/2024 1:02 PM CDT): BL Cr 1-1.3. Cr on admit 1.23. Elevated to 1.7 on 618 consistent with RANDOLPH on CKD, improved with fluids. - Weekly CMP Assessment & Plan (10/15/2024 10:10 AM CDT): BL Cr 1-1.3. Cr on admit 1.23. Elevated to 1.7 on 6 consistent with RANDOLPH on CKD, improved with fluids. - Daily CMP Assessment & Plan (10/14/2024 9:34 AM CDT): BL Cr 1-1.3. Cr on admit 1.23. Elevated to 1.7 on 10/08 consistent with RANDOLPH on CKD, improved with fluids. - Daily CMP Assessment & Plan (10/13/2024 5:52 PM CDT): BL Cr 1-1.3. Cr on admit 1.23. Elevated to 1.7 on 10/08 consistent with RANDOLPH on CKD, improved with fluids. - Daily CMP Assessment & Plan (10/12/2024 11:25 AM CDT): BL Cr 1-1.3. Cr on admit 1.23. Elevated to 1.7 on 10/08 consistent with RANDOLPH on CKD, improved with fluids. - Daily CMP Assessment & Plan (10/11/2024 10:03 AM CDT): BL Cr 1-1.3. Cr on admit 1.23. Elevated to 1.7 on 10/08 consistent with RANDOLPH on CKD, improved with fluids. - Daily CMP Assessment & Plan (10/10/2024 2:50 PM CDT): BL Cr 1-1.3. Cr on admit 1.23. Elevated to 1.7 on 18 consistent with RANDOLPH on CKD, improved with fluids. - Daily CMP Assessment & Plan (08/15/2024 3:58 PM CDT): Oliguric renal failure requiring CRRT (07/07-07/14) in the setting of septic shock. Presumed baseline Cr ~1.1. 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 Presumed baseline Cr ~1.1. 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 Assessment & Plan (08/13/2024 1:27 PM CDT): Oliguric renal failure requiring CRRT (07/07-07/14) in the setting of septic shock. Presumed baseline Cr ~1.1. 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 Assessment & Plan (08/12/2024 12:36 PM CDT): Oliguric renal failure requiring CRRT (07/07-07/14) in the setting of septic shock. Presumed baseline Cr ~1.1. 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 Assessment & Plan (08/11/2024 2:05 PM CDT): Oliguric renal failure requiring CRRT (07/07-07/14) in the setting of septic shock. Presumed baseline Cr ~1.1. Atrophic left kidney at baseline. Nephrology followed and signed off Plan - Continue I/O monitoring (complicated by colovesical fistula) - Renally dose medications, avoid nephrotoxic agents as able - renvela , monitor Phos levels - started ergocalciferol weekly, calcitriol MWF - PRN bumex once stable from infectious stand point. Assessment & Plan (08/10/2024 11:43 AM CDT): Oliguric renal failure requiring CRRT (07/07-07/14) in the setting of septic shock. Presumed baseline Cr ~1.1. Atrophic left kidney at baseline. Nephrology followed and signed off Plan - Continue I/O monitoring (complicated by colovesical fistula) - Renally dose medications, avoid nephrotoxic agents as able - renvela , monitor Phos levels - started ergocalciferol weekly, calcitriol MWF - PRN bumex once stable from infectious stand point. Assessment & Plan (08/09/2024 10:35 AM CDT): Oliguric renal failure requiring CRRT (07/07-07/14) in the setting of septic shock. Presumed baseline Cr ~1.1. Atrophic left kidney at baseline. Nephrology followed and signed off - Continue I/O monitoring (complicated by colovesical fistula) - Renally dose medications, avoid nephrotoxic agents as able - renvela , monitor Phos levels - started ergocalciferol weekly, calcitriol MWF - PRN bumex once stable from infectious stand point. Assessment & Plan (08/08/2024 1:49 PM CDT): Oliguric renal failure requiring CRRT (07/07-07/14) in the setting of septic shock. Presumed baseline Cr ~1.1. Atrophic left kidney at baseline. Nephrology followed and signed off - Continue I/O monitoring (complicated by colovesical fistula) - Renally dose medications, avoid nephrotoxic agents as able - Held renvela for normal phos levels, monitor Phos levels - started ergocalciferol weekly, calcitriol MWF - PRN bumex once stable from infectious stand point. Assessment & Plan (08/07/2024 2:44 PM CDT): Oliguric renal failure requiring CRRT (07/07-07/14) in the setting of septic shock. Presumed baseline Cr ~1.1. Atrophic left kidney at baseline. Nephrology followed and signed off - Continue I/O monitoring (complicated by colovesical fistula) - Renally dose medications, avoid nephrotoxic agents as able - continue renvela, monitor Phos levels - started ergocalciferol weekly, calcitriol MWF - PRN bumex once stable from infectious stand point. Assessment & Plan (08/06/2024 12:37 PM CDT): Oliguric renal failure requiring CRRT (07/07-07/14) in the setting of septic shock. Presumed baseline Cr ~1.1. Atrophic left kidney at baseline. Nephrology followed and signed off - Continue I/O monitoring (complicated by colovesical fistula) - Renally dose medications, avoid nephrotoxic agents as able - continue renvela, start ergocalciferol weekly, calcitriol MWF - PRN bumex once stable from infectious stand point. Assessment & Plan (08/04/2024 2:33 PM CDT): Oliguric renal failure requiring CRRT (07/07-07/14) in the setting of septic shock. Presumed baseline Cr ~1.1. Atrophic left kidney at baseline. Nephrology followed and signed off - Continue I/O monitoring (complicated by colovesical fistula) - Renally dose medications, avoid nephrotoxic agents as able - continue renvela, start ergocalciferol weekly, calcitriol MWF - PRN bumex once stable from infectious stand point. Assessment & Plan (08/03/2024 8:32 AM CDT): Oliguric renal failure requiring CRRT (07/07-07/14) in the setting of septic shock. Presumed baseline Cr ~1.1. Atrophic left kidney at baseline. Nephrology followed and signed off - Continue I/O monitoring (complicated by colovesical fistula) - Renally dose medications, avoid nephrotoxic agents as able - continue renvela, start ergocalciferol weekly, calcitriol MWF - PRN bumex once stable from infectious stand point. Assessment & Plan (08/02/2024 9:22 AM CDT): Oliguric renal failure requiring CRRT (07/07-07/14) in the setting of septic shock. Presumed baseline Cr ~1.1. Atrophic left kidney at baseline. Nephrology followed and signed off - Continue I/O monitoring (complicated by colovesical fistula) - Renally dose medications, avoid nephrotoxic agents as able - continue renvela, start ergocalciferol weekly, calcitriol MWF - PRN bumex once stable from infectious stand point. Assessment & Plan (08/01/2024 12:29 PM CDT): Oliguric renal failure requiring CRRT (07/07-07/14) in the setting of septic shock. Presumed baseline Cr ~1.1. Atrophic left kidney at baseline. Nephrology followed and signed off - Continue I/O monitoring (complicated by colovesical fistula) - Renally dose medications, avoid nephrotoxic agents as able - continue renvela, start ergocalciferol weekly, calcitriol MWF - PRN bumex once stable from infectious stand point. - Will repeat urine lytes and renal ultrasound given rising Cr Assessment & Plan (07/31/2024 12:03 PM CDT): Oliguric renal failure requiring CRRT (07/07-07/14) in the setting of septic shock. Presumed baseline Cr ~1.1. Atrophic left kidney at baseline. Nephrology followed and signed off - Continue I/O monitoring (complicated by colovesical fistula) - Renally dose medications, avoid nephrotoxic agents as able - continue renvela, start ergocalciferol weekly, calcitriol MWF - PRN bumex once stable from infectious stand point. Assessment & Plan (07/30/2024 12:46 PM CDT): Oliguric renal failure requiring CRRT (07/07-07/14) in the setting of septic shock. Presumed baseline Cr ~1.1. Atrophic left kidney at baseline. Nephrology followed and signed off - Continue I/O monitoring (complicated by colovesical fistula) - Renally dose medications, avoid nephrotoxic agents as able - continue renvela, start ergocalciferol weekly, calcitriol MWF - PRN bumex once stable from infectious stand point. Assessment & Plan (07/29/2024 12:35 PM CDT): Oliguric renal failure requiring CRRT (07/07-07/14) in the setting of septic shock. Presumed baseline Cr ~1.1. Atrophic left kidney at baseline. Nephrology followed and signed off - Continue I/O monitoring (complicated by colovesical fistula) - Renally dose medications, avoid nephrotoxic agents as able - will restart Bumex 1mg daily for diuresis, may require decrease to PRN dosing pending net fluid balance - continue renvela, start ergocalciferol weekly, calcitriol MWF Colovesical fistula 07/16/2024 11/19/19 25 Assessment & Plan (11/11/2024 3:08 PM CDT): As above Assessment & Plan (11/10/2024 7:55 AM CDT): As above Assessment & Plan (11/09/2024 7:26 AM CDT): As above Assessment & Plan (11/08/2024 8:50 AM CDT): As above Assessment & Plan (11/07/2024 7:56 AM CDT): As above Assessment & Plan (11/06/2024 9:12 AM CDT): As above Assessment & Plan (11/05/2024 12:36 PM CDT): Recent urine cultures have grown what seems to be 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 She did have a urine culture from 09/25 growing vancomycin resistant Enterococcus faecium. Abdomen and bilateral flanks are diffusely tender. Symptoms are difficult to interpret in the setting of acute diverticulitis. UA is also of little value with current colovesical fistula. Regardless she is on very broad-spectrum antibiotics for the time being. Assessment & Plan (11/05/2024 7:22 AM CDT): As above Assessment & Plan (11/04/2024 5:53 PM CDT): As above Assessment & Plan (09/05/2024 1:34 PM CDT): Chronic, noted on CT. Stool present in [place] at baseline. CRS aware, but pt needs weight optimization prior to surgery - CRS d/w pt /family on 08/21. - [place] flush q4h to prevent clogging Assessment & Plan (09/04/2024 3:38 PM CDT): Chronic, noted on CT. Stool present in [place] at baseline. CRS aware, but pt needs weight optimization prior to surgery - CRS d/w pt /family on 08/21. - [place] flush q4h to prevent clogging Assessment & Plan (09/04/2024 12:00 AM CDT): Chronic, noted on CT. Stool present in [place] at baseline. CRS aware, but pt needs weight optimization prior to surgery - CRS d/w pt /family on 08/21. - [place] flush q4h to prevent clogging Assessment & Plan (09/02/2024 10:16 PM CDT): Chronic, noted on CT. Stool present in [place] at baseline. CRS aware, but pt needs weight optimization prior to surgery - CRS d/w pt /family on 08/21. - [place] flush q4h to prevent clogging Assessment & Plan (09/01/2024 6:41 PM CDT): Chronic, noted on CT. Stool present in [place] at baseline. CRS aware, but pt needs weight optimization prior to surgery - CRS d/w pt /family on 08/21. - [place] flush q4h to prevent clogging Assessment & Plan (08/31/2024 2:46 PM CDT): Chronic, noted on CT. Stool present in [place] at baseline. CRS aware, but pt needs weight optimization prior to surgery - CRS d/w pt /family on 08/21. - [place] flush q4h to prevent clogging Assessment & Plan (08/30/2024 8:14 AM CDT): Chronic, noted on CT. Stool present in [place] at baseline. CRS aware, but pt needs weight optimization prior to surgery - CRS d/w pt /family on 08/21. - [place] flush q4h to prevent clogging Assessment & Plan (08/23/2024 1:59 PM CDT): Chronic, noted on CT. Stool present in [place] at baseline. CRS aware, but pt needs weight optimization prior to surgery - CRS d/w pt /family on 08/21. - [place] flush q4h to prevent clogging Assessment & Plan (08/22/2024 2:16 PM CDT): Chronic, noted on CT. Stool present in [place] at baseline. CRS aware, but pt needs weight optimization prior to surgery - CRS talked to pt /family on 08/21. - [place] flush q4h to prevent clogging Assessment & Plan (08/21/2024 3:20 PM CDT): Chronic, noted on CT. Stool present in [place] at baseline. CRS aware, but pt needs weight optimization prior to surgery - CRS talked to pt /family on 08/21. - [place] flush q4h to prevent clogging Assessment & Plan (08/20/2024 4:38 PM CDT): Chronic, noted on CT. Stool present in [place] at baseline. CRS aware, but pt needs weight optimization prior to surgery - CRS to talk to pt /family again on 08/20 - [place] flush q4h to prevent clogging Assessment & Plan (08/19/2024 4:21 PM CDT): Chronic, noted on CT. Stool present in [place] at baseline. CRS aware, but pt needs weight optimization prior to surgery - [place] flush q4h to prevent clogging Assessment & Plan (08/18/2024 9:06 AM CDT): Chronic, noted on CT. Stool present in [place] at baseline. CRS aware, but pt needs weight optimization prior to surgery - [place] flush q4h to prevent clogging Assessment & Plan (08/17/2024 11:39 AM CDT): Chronic, noted on CT. Stool present in [place] at baseline. CRS aware, but pt needs weight optimization prior to surgery - [place] flush q4h to prevent clogging Assessment & Plan (08/16/2024 10:30 AM CDT): Chronic, noted on CT. Stool present in [place] at baseline. CRS aware, but pt needs weight optimization prior to surgery - [place] flush q4h to prevent clogging Assessment & Plan (08/15/2024 7:54 AM CDT): Chronic, noted on CT. Stool present in [place] at baseline. CRS aware, but pt needs weight optimization prior to surgery - [place] flush q4h to prevent clogging Assessment & Plan (08/14/2024 8:13 AM CDT): Chronic, noted on CT. Stool present in [place] at baseline. CRS aware, but pt needs weight optimization prior to surgery - [place] flush q4h to prevent clogging Assessment & Plan (08/13/2024 1:27 PM CDT): Chronic, noted on CT. Stool present in [place] at baseline. CRS aware, but pt needs weight optimization prior to surgery - [place] flush q4h to prevent clogging Assessment & Plan (08/12/2024 12:36 PM CDT): Chronic, noted on CT. Stool present in [place] at baseline. CRS aware, but pt needs weight optimization prior to surgery - [place] flush q4h to prevent clogging Assessment & Plan (08/11/2024 2:05 PM CDT): Chronic, noted on CT. Stool present in [place] at baseline. CRS aware, but pt needs weight optimization prior to surgery - [place] flush q4h to prevent clogging Assessment & Plan (08/10/2024 11:43 AM CDT): Chronic, noted on CT. Stool present in [place] at baseline. CRS aware, but pt needs weight optimization prior to surgery - [place] flush q4h to prevent clogging Assessment & Plan (08/09/2024 10:35 AM CDT): Chronic, noted on CT. Stool present in [place] at baseline. CRS aware, but pt needs weight optimization prior to surgery - [place] flush q4h to prevent clogging Assessment & Plan (08/08/2024 1:49 PM CDT): Chronic, noted on CT. Stool present in [place] at baseline. CRS aware, but pt needs weight optimization prior to surgery - [place] flush q4h to prevent clogging Assessment & Plan (08/07/2024 2:44 PM CDT): Chronic, noted on CT. Stool present in [place] at baseline. CRS aware, but pt needs weight optimization prior to surgery - [place] flush q4h to prevent clogging Assessment & Plan (08/06/2024 12:37 PM CDT): Chronic, noted on CT. Stool present in [place] at baseline. CRS aware, but pt needs weight optimization prior to surgery - [place] flush q4h to prevent clogging Assessment & Plan (08/04/2024 2:33 PM CDT): Chronic, noted on CT. Stool present in [place] at baseline. CRS aware, but pt needs weight optimization prior to surgery - [place] flush q4h to prevent clogging Assessment & Plan (08/03/2024 8:32 AM CDT): Chronic, noted on CT. Stool present in [place] at baseline. CRS aware, but pt needs weight optimization prior to surgery - [place] flush q4h to prevent clogging Assessment & Plan (08/02/2024 9:22 AM CDT): Chronic, noted on CT. Stool present in [place] at baseline. CRS aware, but pt needs weight optimization prior to surgery - [place] flush q4h to prevent clogging Assessment & Plan (08/01/2024 12:29 PM CDT): Chronic, noted on CT. Stool present in [place] at baseline. CRS aware, but pt needs weight optimization prior to surgery - [place] flush q4h to prevent clogging Assessment & Plan (07/31/2024 12:03 PM CDT): Chronic, noted on CT. Stool present in [place] at baseline. CRS aware, but pt needs weight optimization prior to surgery - [place] flush q4h to prevent clogging Assessment & Plan (07/30/2024 12:46 PM CDT): Chronic, noted on CT. Stool present in [place] at baseline. CRS aware, but pt needs weight optimization prior to surgery - [place] flush q4h to prevent clogging Assessment & Plan (07/29/2024 12:35 PM CDT): Chronic, noted on CT. Stool present in [place] at baseline. CRS aware, but pt needs weight optimization prior to surgery - [place] flush q4h to prevent clogging E coli bacteremia 07/16/2024 08/12/2024 Assessment & Plan (08/12/2024 8:00 AM CDT): Presumed GI/ source int he setting of colovesical fistula, nephrolithiasis. - BCx 07/06: 1/2 S epi (likely contaminant), 1/2 markham-susceptible E coli - BCx 07/08: 1/2 E coli, - BCx 07/10: NGTD - Zosyn (07/06-07/08), tobra (07/07), vanc (07/07 - 07/09), meropenem (07/08 - 07/10), ceftriaxone (07/10 - 07/23) - completed 14 days antibiotics from last negative blood culture (07/10) - ID following - Started developing chills on 07/30, urology concerned about urosepsis, cultures drawn and started again on BSA including vanc, cefe and flagyl but then transitioned to linezolid + zosyn due to VRE (e. Fecium), see below - Urine cultures with no growth Improved w/ abx and source control w/ renal stone removal Assessment & Plan (08/11/2024 2:05 PM CDT): Presumed GI/ source int he setting of colovesical fistula, nephrolithiasis. - BCx 07/06: 1/2 S epi (likely contaminant), 04/24 markham-susceptible E coli - BCx 07/08: 1/2 E coli, - BCx 07/10: NGTD - Zosyn (07/06-07/08), tobra (07/07), vanc (07/07 - 07/09), meropenem (07/08 - 07/10), ceftriaxone (07/10 - 07/23) - completed 14 days antibiotics from last negative blood culture (07/10) - ID following - Started developing chills on 07/30, urology concerned about urosepsis, cultures drawn and started again on BSA including vanc, cefe and flagyl but then transitioned to linezolid + zosyn due to VRE (e. Fecium), see below - Urine cultures with no growth Improved w/ abx and source control w/ renal stone removal Assessment & Plan (08/10/2024 11:43 AM CDT): Presumed GI/ source int he setting of colovesical fistula, nephrolithiasis. - BCx 07/06: 1/2 S epi (likely contaminant), 12 markham-susceptible E coli - BCx 07/08: 1/2 E coli, - BCx 07/10: NGTD - Zosyn (07/06-07/08), tobra (07/07), vanc (07/07 - 07/09), meropenem (07/08 - 07/10), ceftriaxone (07/10 - 07/23) - completed 14 days antibiotics from last negative blood culture (07/10) - ID following - Started developing chills on 07/30, urology concerned about urosepsis, cultures drawn and started again on BSA including vanc, cefe and flagyl but then transitioned to linezolid + zosyn due to VRE (e. Fecium), see below - Urine cultures with no growth Improved w/ abx and source control w/ renal stone removal Assessment & Plan (08/09/2024 10:35 AM CDT): Presumed GI/ source int he setting of colovesical fistula, nephrolithiasis. - BCx 07/06: 1/2 S epi (likely contaminant), 04/24 markham-susceptible E coli - BCx 07/08: 1/2 E coli, - BCx 07/10: NGTD - Zosyn (07/06-07/08), tobra (07/07), vanc (07/07 - 07/09), meropenem (07/08 - 07/10), ceftriaxone (07/10 - 07/23) - completed 14 days antibiotics from last negative blood culture (07/10) - ID following - Started developing chills on 07/30, urology concerned about urosepsis, cultures drawn and started again on BSA including vanc, cefe and flagyl but then transitioned to linezolid + zosyn due to VRE (e. Fecium), see below - Urine cultures with no growth Improved w/ abx and source control w/ renal stone removal Assessment & Plan (08/08/2024 1:49 PM CDT): Presumed GI/ source int he setting of colovesical fistula, nephrolithiasis. - BCx 07/06: 1/2 S epi (likely contaminant), 12 markham-susceptible E coli - BCx 07/08: 1/2 E coli, - BCx 07/10: NGTD - Zosyn (07/06-07/08), tobra (07/07), vanc (07/07 - 07/09), meropenem (07/08 - 07/10), ceftriaxone (07/10 - 07/23) - completed 14 days antibiotics from last negative blood culture (07/10) - ID following - Started developing chills on 07/30, urology concerned about urosepsis, cultures drawn and started again on BSA including vanc, cefe and flagyl but then transitioned to linezolid + zosyn due to VRE (e. Fecium), see below - Urine cultures with no growth Improved w/ abx and source control w/ renal stone removal Assessment & Plan (08/07/2024 2:44 PM CDT): Presumed GI/ source int he setting of colovesical fistula, nephrolithiasis. - BCx 07/06: 1/2 S epi (likely contaminant), 04/24 markham-susceptible E coli - BCx 07/08: 1/2 E coli, - BCx 07/10: NGTD - Zosyn (07/06-07/08), tobra (07/07), vanc (07/07 - 07/09), meropenem (07/08 - 07/10), ceftriaxone (07/10 - 07/23) - completed 14 days antibiotics from last negative blood culture (07/10) - ID following - Started developing chills on 07/30, urology concerned about urosepsis, cultures drawn and started again on BSA including vanc, cefe and flagyl but then transitioned to linezolid + zosyn due to VRE (e. Fecium), see below - Urine cultures with no growth Improved w/ abx and source control w/ renal stone removal Assessment & Plan (08/06/2024 12:37 PM CDT): Presumed GI/ source int he setting of colovesical fistula, nephrolithiasis. - BCx 07/06: 1/2 S epi (likely contaminant), 1/2 markham-susceptible E coli - BCx 07/08: 1/2 E coli, - BCx 07/10: NGTD - Zosyn (07/06-07/08), tobra (07/07), vanc (07/07 - 07/09), meropenem (07/08 - 07/10), ceftriaxone (07/10 - 07/23) - completed 14 days antibiotics from last negative blood culture (07/10) - ID following - Started developing chills on 07/30, urology concerned about urosepsis, cultures drawn and started again on BSA including vanc, cefe and flagyl but then transitioned to linezolid + zosyn due to VRE (e. Fecium), see below - Urine cultures with no growth Improved w/ abx and source control w/ renal stone removal Plan - continue zosyn for 24h post procedure then stop. - Plan to start zosyn for left renal stone removal and continue 48h post procedure per ID recs Assessment & Plan (08/04/2024 2:33 PM CDT): Presumed GI/ source int he setting of colovesical fistula, nephrolithiasis. - BCx 07/06: 1/2 S epi (likely contaminant), 1/ markham-susceptible E coli - BCx 07/08: 1/2 E coli, - BCx 07/10: NGTD - Zosyn (07/06-07/08), tobra (07/07), vanc (07/07 - 07/09), meropenem (07/08 - 07/10), ceftriaxone (07/10 - 07/23) - completed 14 days antibiotics from last negative blood culture (07/10) - Started developing chills on 07/30, urology concerned about urosepsis, cultures drawn and started again on BSA including vanc, cefe and flagyl but then transitioned to linezolid + zosyn due to VRE (e. Fecium), see below - Urine cultures with no growth Assessment & Plan (08/03/2024 8:32 AM CDT): Presumed GI/ source int he setting of colovesical fistula, nephrolithiasis. - BCx 07/06: 1/2 S epi (likely contaminant), 1/2 markham-susceptible E coli - BCx 07/08: 1/2 E coli, - BCx 07/10: NGTD - Zosyn (07/06-07/08), tobra (07/07), vanc (07/07 - 07/09), meropenem (07/08 - 07/10), ceftriaxone (07/10 - 07/23) - completed 14 days antibiotics from last negative blood culture (07/10) - Started developing chills on 07/30, urology concerned about urosepsis, cultures drawn and started again on BSA including vanc, cefe and flagyl but then transitioned to linezolid + zosyn due to VRE (e. Fecium), see below - Urine cultures with no growth Assessment & Plan (08/02/2024 9:22 AM CDT): Presumed GI/ source int he setting of colovesical fistula, nephrolithiasis. - BCx 07/06: 1/2 S epi (likely contaminant), 12 markham-susceptible E coli - BCx 07/08: 1/2 E coli, - BCx 07/10: NGTD - Zosyn (07/06-07/08), tobra (07/07), vanc (07/07 - 07/09), meropenem (07/08 - 07/10), ceftriaxone (07/10 - 07/23) - completed 14 days antibiotics from last negative blood culture (07/10) - Started developing chills on 07/30, urology concerned about urosepsis, cultures drawn and started again on BSA including vanc, cefe and flagyl but then transitioned to linezolid + zosyn due to VRE (e. Fecium), see below - Urine cultures with no growth Assessment & Plan (08/01/2024 12:29 PM CDT): Presumed GI/ source int he setting of colovesical fistula, nephrolithiasis. - BCx 07/06: 1/2 S epi (likely contaminant), 1/2 markham-susceptible E coli - BCx 07/08: 1/2 E coli, - BCx 07/10: NGTD - Zosyn (07/06-07/08), tobra (07/07), vanc (07/07 - 07/09), meropenem (07/08 - 07/10), ceftriaxone (07/10 - 07/23) - completed 14 days antibiotics from last negative blood culture (07/10) - Started developing chills on 07/30, urology concerned about urosepsis, cultures drawn and started again on BSA including vanc, cefe and flagyl but then transitioned to linezolid + zosyn due to VRE (e. Fecium), see below Assessment & Plan (07/31/2024 12:03 PM CDT): Presumed GI/ source int he setting of colovesical fistula, nephrolithiasis. - BCx 07/06: 1/2 S epi (likely contaminant), 1/2 markham-susceptible E coli - BCx 07/08: 1/2 E coli, - BCx 07/10: NGTD - Zosyn (07/06-07/08), tobra (07/07), vanc (07/07 - 07/09), meropenem (07/08 - 07/10), ceftriaxone (07/10 - 07/23) - completed 14 days antibiotics from last negative blood culture (07/10) - Started developing chills on 07/30, urology concerned about urosepsis, cultures drawn and started again on BSA including vanc, cefe and flagyl but then transitioned to linezolid + zosyn due to VRE, see below Assessment & Plan (07/30/2024 12:46 PM CDT): Presumed GI/ source int he setting of colovesical fistula, nephrolithiasis. - BCx 07/06: 1/2 S epi (likely contaminant), 1/2 markham-susceptible E coli - BCx 07/08: 1/2 E coli, - BCx 07/10: NGTD - Zosyn (07/06-07/08), tobra (07/07), vanc (07/07 - 07/09), meropenem (07/08 - 07/10), ceftriaxone (07/10 - 2) - completed 14 days antibiotics from last negative blood culture (07/10) - Started developing chills on 07/30, urology concerned about urosepsis, cultures drawn and started again on BSA including vanc, cefe and flagyl - Follow vanc trough Assessment & Plan (07/29/2024 12:35 PM CDT): Presumed GI/ source int he setting of colovesical fistula, nephrolithiasis. - BCx 07/06: 1/2 S epi (likely contaminant), 1 markham-susceptible E coli - BCx 07/08: 1/2 E coli, - BCx 07/10: NGTD - Zosyn (07/06-07/08), tobra (07/07), vanc (07/07 - 07/09), meropenem (07/08 - 07/10), ceftriaxone (07/10 - 07/23) - completed 14 days antibiotics from last negative blood culture (07/10) Encounters Date Type Department Care Team Description 04/01/2025 Telephone [facility] [address] [place] [address] [place] [id number] Valerie Ocampo, RN 03/31/2025 Telephone [facility] [address] [place] [address] Health [address] [place] [id number] Valerie Ocampo, RN Follow-up 03/25/2025 Telephone [facility] Care Medicine Clinic [address] [place] [address] [address] [place] [id number] Valerie Ocampo, RN Follow-up 03/18/2025 2:20 PM CHEF Office Visit [facility] Medicine [facility] [address] [place] [address] Health [address] [place] [id number] Natalie Villegas MD Urinary tract infection without hematuria, site unspecified (Primary Dx); Bladder fistula; Chronic abdominal pain; Hypothyroidism, unspecified type; Anxiety 03/04/2025 Telephone [facility] [address] [facility] [address] [place] [phone] Rosemary Wilkinson 03/04/2025 Transitional Care Outreach [facility] Medicine Care Coordination [address] [place] [phone] Kandice De Los Santos RN 02/27/2025 Orders Only [facility] Medicine Pulmonary [address] [facility] 8th [place] [address] [place] [phone] Gentry Cadena MD Pulmonary embolism, unspecified chronicity, unspecified pulmonary embolism type, unspecified whether acute cor pulmonale present (HCC) (Primary Dx) 02/26/2025 1:35 PM CHEF Ancillary Procedure [facility] Medicine Vascular Lab IP [address] [facility] [address] [place] [address] 02/26/2025 1:30 PM CHEF Ancillary Procedure [facility] Medicine Vascular Lab IP [address] [facility] [address] [place] [address] 02/24/2025 [facility] Eligibility Review [facility] Community Health Worker [address] [facility] [address] [place] [address] Ny Rivera 02/23/2025 10:07 PM CHEF - 03/03/2025 4:30 PM CHEF Hospital Encounter [address] [address] Lara Madera MD Zanaboni, MD Low uLgo, MD Clotilde Ortega Bashar, MD Farrag, MD Sarai Guerrier, Cruz Jackson MD Diverticulitis (Primary Dx); Urinary tract infection associated with indwelling urethral catheter, initial encounter; Chronic abdominal pain [R10.9, G89.29]; abdominal pain; Acute hypoxic respiratory failure (HCC); Acute pulmonary embolism without acute cor pulmonale, unspecified pulmonary embolism type (HCC) Discharge Disposition: Discharge to home or self care 02/23/2025 2:59 PM CHEF - 02/23/2025 11:59 PM CHEF Hospital Encounter [facility] [address] [place] [address] Emergency, Room R Discharge Disposition: Discharge to home or self care 02/23/2025 2:15 PM CHEF Office Visit [facility] Medicine Clinic [address] [facility] Health [address] [place], [place] [phone] Manny Camacho MD PhD Calciphylaxis (Primary Dx); Urinary tract infection associated with indwelling urethral catheter, initial encounter; Kidney stones 02/23/2025 Telephone [facility] [address] [place] [address] Nina Yap, NICHOL 02/20/2025 Orders Only [facility] [address] [place] [address] [address] [place] [phone] Kandice Mary MD Hypercalcemia (Primary Dx) 02/19/2025 Telephone [facility] [address] [facility] [address] [place] [phone] Sailaja Delacruz Sunni 02/19/2025 Telephone [facility] [address] [place] [address] Nina Yap, NICHOL 02/18/2025 1:00 PM CDT Infusion [facility] [address] [place] [address] Nina Yap, NICHOL Calciphylaxis (Primary Dx) 02/18/2025 10:30 AM CDT Lab [facility] [address] [place] [address] Colovesical fistula 02/18/2025 9:45 AM CDT Office Visit [facility] Medicine Surgery [address] [facility] Building [address] [place] [phone] Gerry Kearns MD Colovesical fistula (Primary Dx) 02/18/2025 Results Follow-Up Internal Medicine Shelia Campa MD Comprehensive metabolic panel, CBC with auto differential, Differential, auto, eGFR 02/18/2025 [facility] [address] [place] [address] Outpatient Health [address] [place] [address] Kandice Mary MD Hypercalcemia (Primary Dx) 02/18/2025 Telephone [facility] [address] [place] [address] Medical Office Building [address] [place] [phone] Jerica Linda, NICHOL 02/17/2025 Results Follow-Up Internal Medicine Shelia Campa MD Comprehensive metabolic panel, CBC with auto differential, Differential, auto, eGFR 02/13/2025 2:00 PM CDT Infusion [facility] [address] [place] [address] Nina Yap RN Calciphylaxis (Primary Dx) 02/12/2025 Telephone [facility] [address] [place] [address] Office [facility] [address] [place] [phone] Gerry Kearns MD 02/09/2025 2:00 PM CDT Infusion [facility] [address] [place] [address] Nina Yap, NICHOL Calciphylaxis (Primary Dx) 02/06/2025 2:00 PM CDT Infusion [facility] [address] [place] [address] Nina Yap, NICHOL Calciphylaxis (Primary Dx) 02/05/2025 3:00 PM CDT Office Visit [facility] [address] [place] [address] Office [address] [place] [phone] Diverticulosis of colon (Primary Dx) 02/05/2025 Results Follow-Up [facility] Medicine Dermatology [address] [place] [address] Outpatient Health [address] [place] [address] Kandice Mary MD Comprehensive metabolic panel, CBC with auto differential, Differential, auto, eGFR 02/04/2025 12:00 PM CDT Infusion [facility] [address] [place] [address] Nina Yap, NICHOL Calciphylaxis (Primary Dx) 02/03/2025 Telephone [facility] Medical Office Building 4 [address] [place] [address] Tami Gomez RN 02/02/2025 Telephone [facility] [address] [place] [address] Nina Yap, NICHOL 01/20/2025 1:50 PM CDT - 01/20/2025 5:50 PM CDT Surgery [facility] Operating Room 1 [place] [address] Gerry Kearns MD EXPLORATORY LAPAROTOMY 01/20/2025 1:38 PM CDT Anesthesia Event [facility] Operating Room 1 [place] [address] Bernarda Corey MD 01/19/2025 Documentation [facility] [address] [place] [address] Elham Cerna RN 01/13/2025 Orders Only [facility] [address] [place] [address] Shelia Campa MD 01/13/2025 Orders Only Internal Medicine Shelai Campa MD 01/09/2025 Documentation [facility] [address] [place] [address] Elham Cerna RN 10/30/2024 5:55 PM CDT - 01/30/2025 3:45 PM CDT Hospital Encounter [address] [address] Samuel Kevin MD Van [place], MD Manpreet Xiong, MD Parker Bautista Aarthi, MD Alzraikat, MD Donte Hudson, Dayron Villafuerte Jr., MD Garza, MD Pancho Saldana Maria, MD Dao, MD Ruben Escobedo, MD Alesha Crews, MD Caterina Rehman, MD Lokesh Peterson Shuchi, MD Silviera, Gerry Sutton MD Acute postoperative abdominal pain [G89.18, R10.9] (Primary Dx); Abdominal pain; Infective urethritis; Colovesical fistula; Chronic, continuous use of opioids; Acute hypoxic respiratory failure (HCC); Colovesical fistula c/b recurrent UTI; Obesity; Complicated UTI (urinary tract infection); Illness, unspecified; Physical deconditioning; RANDOLPH on CKD; Abscess in colovesical fistula tract; Anxiety and depression; abdominal pain; Abnormal uterine bleeding (AUB); Acute cystitis without hematuria; Anemia, unspecified type; Candidemia (HCC); Bilateral thigh lesions c/f superinfected calciphylaxis; Chronic GERD; Chronic pain; Chronic pain syndrome, pain plan; Elevated liver enzymes; Tracheostomy in place (HCC); Calciphylaxis Discharge Disposition: Discharge to home or self care from Last 3 Months Immunizations Immunization Administration Dates Next Due Influenza, Trivalent, IM (MDV) 12/31/2008,2006 Surgical History Surgery Date Site/Laterality Comments HERNIA REPAIR 04/23/2020 - 04/22/2021 COLONOSCOPY SECTION x2 TRACHEOSTOMY 11/11/2024 Neck/N/A Procedure: REVISION TRACHEOSTOMY, CLOSURE CRICOTHYROTOMY; Surgeon: Gerry Gomez MD; Location: [facility] OR POD 1; Service: Otolaryngology; Laterality: N/A; TRACHEOSTOMY 11/11/2024 Neck/N/A Procedure: TRACHEOSTOMY.; Surgeon: Gerry Kearns MD; Location: [facility] OR POD 1; Service: General Surgery; Laterality: N/A; CENTRAL LINE PLACEMENT > 5 YEARS 01/03/2025 N/A COLON SURGERY 01/20/2025 Exploratory laparotomy, takedown of colovesical fistula, rectosigmoid resection, complete mobilization of the splenic flexure, primary repair of bladder, end-to-end stapled colorectal anastomosis, omental pedicle flap to the pelvis, rigid proctoscopy URETERAL STENT PLACEMENT 01/20/2025 Bilateral Medical History Medical History Date Comments Anxiety and depression Kidney disorder Cardiac complication Hard to intubate 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 chronic kidney disease (HCC) Colovesical fistula Hyperlipemia Chronic GERD 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 More than three times a week 10/31/2024 How often do you get togethe r with friends or relatives? More than three times a week 10/31/2024 How often do you attend chur ch or gnosticist services? More than 4 times per year 10/31/2024 Do you belong to any clubs o r organizations such as jainism groups, unions, fraternal or athletic groups, or [...] PHQ-2 Answer Date Recorded PHQ-2 Total Score 6 02/25/2025 PRAPARE - Transportation Answer Date Re corded In the past 12 months, has l ack of transportation kept you from medical appointments or from getting medications? No 10/21 In the past 12 months, has l ack of transportation kept you from meetings, work, or from getting things needed for daily living? No 10/31/2024 PHQ-9 Answer Date Recorded PHQ-9 Total Score 21 02/25/2025 Housing Stability Vital Sign Answer Zeeshan e Recorded In the last 12 months, was t here a time when you were not able to pay the mortgage or rent on time? Yes 10/31/2024 In the past 12 months, how m any times have you moved where you were living? 1 10/31/2024 At any time in the past 12 m [facility], were you homeless or living in a residential (including now)? No 10/31/2024 Social Connection and Isolation Panel Answer Date Recorded In a typical week, how many times do you talk on the phone with family, friends, or neighbors? Never 02/25/2025 How often do you get togethe r with friends or relatives? Once a week 02/25/2025 How often do you attend chur or gnosticist services? More than 4 times per year 02/25/2025 Do you belong to any clubs o r organizations such as jainism groups, unions, fraternal or athletic groups, or school groups? No 02/25/2025 How often do you attend meet ings of the clubs or organizations you belong to? 1 to 4 times per year 02/25/2025 Are you , , di vorced, , never , or living with a partner? 02/25/2025 AUDIT-C Answer Date Recorded Q1: How often do you have a drink containing alcohol? Never 02/24/2025 Q2: How many drinks containi ng alcohol do you have on a typical day when you are drinking? Patient does not drink Q3: How often do you have si x or more drinks on one occasion? Never 02/24/2025 Overall Financial Resource Strain (CARDIA) Answe r Date Recorded How hard is it for you to pa y for the very basics like food, housing, medical care, and heating? Hard 02/25/2025 [facility] - Occupational Stress Questionnaire Answer Date Recorded Do you feel stress - tense, restless, nervous, or anxious, or unable to sleep at night because your mind is troubled all the time - these days? Very much 02/24/2025 Exercise Vital Sign Answer Date Recorde d On average, how many days pe r week do you engage in moderate to strenuous exercise (like a brisk walk)? 3 days 02/24/2025 On average, how many minutes do you engage in exercise at this level? 60 min 02/24/2025 Hunger Vital Sign Answer Date Recorded Within the past 12 months, y ou worried that your food would run out before you got the money to buy more. Never true 03/18/20 25 Within the past 12 months, t he food you bought just didn't last and you didn't have money to get more. Never true 03/18/2025 PRAPARE - Transportation Answer Date Re corded In the past 12 months, has l ack of transportation kept you from medical appointments or from getting medications? No 08/2024 In the past 12 months, has l ack of transportation kept you from meetings, work, or from getting things needed for daily living? No 02/25/2025 Housing Stability Vital Sign Answer Zeeshan e Recorded In the last 12 months, was t here a time when you were not able to pay the mortgage or rent on time? No 02/25/2025 In the past 12 months, how m any times have you moved where you were living? 0 02/25/2025 At any time in the past 12 m [facility], were you homeless or living in a residential (including now)? No 02/25/2025 [facility] Utilities Answer Date Recorded In the past 12 months has th e electric, gas, oil, or water company threatened to shut off services in your home? Yes 02/25/2025 Personal Safety Answer Date Recorded Have you ever been in or are you currently in a harmful physical or emotional relationship or is someone making you feel afraid or unsafe? Denies 02/23/2025 Comments No Sex and Gender Information Value Date Recorded Sex Assigned at Not on file Legal Sex Female 1:21 AM CHEF Gender Identity Not on file Sexual Orientation Not on file Last Filed Vital Signs Vital Sign Reading Time Taken Comments Blood Pressure 127/69 03/18/2025 2:53 PM CHEF Pulse 97 03/18/2025 2:53 PM CHEF Temperature 37.6 C (99.6 F) 03/18/2025 2:53 PM CHEF Respiratory Rate 18 03/03/2025 3:00 PM CHEF Oxygen Saturation 99% 03/18/2025 2:53 PM CHEF Inhaled Oxygen Concentration - - Weight 115.8 kg (255 lb 4 oz) 03/18/2025 2:53 PM CHEF Height 160 cm (5' 3) 03/18/2025 2:53 PM CHEF Body Mass Index 45.22 03/18/2025 2:53 PM CHEF Plan of Treatment Health Maintenance Due Date Last Done Comments Albumin Creatinine Ratio, Urine 1979 Breast Cancer Screening-Mammogram 1979 Cervical Cancer Screening 1979 Foot Exam 1979 DTaP/Tdap/Td Vaccine (1 - Tdap) 09/05/1990 Varicella Vaccines (1 of 2 - 13+ 2-dose series) 09/05/1992 Regular Well Visit/Exam 18-64 09/05/1997 Pneumococcal vaccine <65 (1 of 2 - PCV) 09/05/1998 HPV Vaccines (1 - 3-dose SCD M series) 09/05/2006 Influenza Vaccine (#1) 2024 12/31/2008, 2006 Hemoglobin A1C 08/23/2025 02/23/2025, 08/22, 06/14/2024, Additional history exists Dilated Eye Exam 12/30/2025 12/30/2024, 12/27/2024 Depression Screening 02/23/2026 02/23/2025, 02/23/2025, 10/30/2024, Additional history exists Lipid Panel 02/23/2026 02/23/2025, 08/22, 06/13/2024 eGFR 03/02/2026 03/02/2025, 12/2024, 02/28/2025, Additional history exists Colon Cancer Screening-Colonoscopy 11/03/20342024 Hepatitis B Screening Completed 09/18/2024 Hepatitis C Screening Completed 09/18/2024 Medical Devices Implanted Type Area Security Supervisor Device Identifier Shelf Expiration Date Model / Serial / Lot [employer] Stent Ureteral Set Double Pigtail Radiopaque Tip Universa [id number] Polyurethane Hydrophilic Coated [id number] - [id number] Implanted:Qty: 1 on 07/07/2024 by Cruz Jacob MD at [facility] Stent Right: Ureter [employer] [id number] 02/21/2027 [id number] / / [id number] Explanted Type Area Security Supervisor Device Identifier Shelf Expiration Date Model / Serial / Lot [employer] Stent Ureteral Set Double Pigtail Radiopaque Tip Universa [id number] Polyurethane Hydrophilic Coated [id number] - [id number] Implanted:Qty: 1 on 08/05/2024 by Brayan Berger MD at [facility] Explanted:Qty: 1 on 08/28/2024 by Sánchez Eckert MD Stent Right: Urethra [employer] [id number] 02/03/2027 [id number] / / [id number] [employer] [id number] 6fr 24cm 145cm Radiopaque Positioner Filiform Flexible Tip - [id number] Implanted:Qty: 1 on 08/12/2024 by Isa Bautista MD at [facility] Explanted:Qty: 1 on 08/28/2024 by Sánchez Eckert MD Stent Left: Ureter [employer] [id number] 05/28/2027 [id number] / / [id number] Procedures Procedure Name Priority Date/Time Associated Diagnosis Comments URINALYSIS, MICROSCOPIC ONLY Routine 03/18/2025 5:21 PM CHEF Urinary tract infection without hematuria, site unspecified TARGET OPIOID SCREEN BY RECEPTION CLERK Routine 03/18/2025 5:21 PM CHEF Chronic abdominal pain DRUGS OF ABUSE SCREEN, URINE WITH REFLEX CONFIRMATION Routine 03/18/2025 5:21 PM CHEF Chronic abdominal pain PAIN MANAGEMENT PROFILE Routine 03/18/2025 5:21 PM CHEF Chronic abdominal pain URINE CULTURE Routine 03/18/2025 5:21 PM CHEF Urinary tract infection without hematuria, site unspecified URINALYSIS AND REFLEX TO MICROSCOPIC AND CULTURE Routine 03/18/2025 5:21 PM CHEF Urinary tract infection without hematuria, site unspecified EGFR Routine 03/02/2025 9:21 PM CHEF COMPREHENSIVE METABOLIC PANEL Routine 03/02/2025 9:21 PM CHEF CBC WITHOUT DIFFERENTIAL Routine 03/02/2025 9:21 PM CHEF HOME O2 EVAL (DESATURATION SCREEN) Routine 03/02/2025 6:36 AM CHEF EGFR Routine 03/01/2025 8:13 PM CHEF COMPREHENSIVE METABOLIC PANEL Routine 03/01/2025 8:13 PM CHEF CBC WITHOUT DIFFERENTIAL Routine 03/01/2025 8:13 PM CHEF EGFR Routine 02/28/2025 8:21 PM CHEF COMPREHENSIVE METABOLIC PANEL Routine 02/28/2025 8:21 PM CHEF CBC WITHOUT DIFFERENTIAL Routine 02/28/2025 8:21 PM CHEF EGFR Routine 02/27/2025 8:57 PM CHEF COMPREHENSIVE METABOLIC PANEL Routine 02/27/2025 8:57 PM CHEF CBC WITHOUT DIFFERENTIAL Routine 02/27/2025 8:57 PM CHEF EGFR Routine 02/26/2025 10:36 PM CHEF COMPREHENSIVE METABOLIC PANEL Routine 02/26/2025 10:36 PM CHEF CBC WITHOUT DIFFERENTIAL Routine 02/26/2025 10:36 PM CHEF US VEIN DUPLEX UPPER EXTREMITY BILATERAL COMPLETE IP Routine 02/26/2025 3:31 PM CHEF US VEIN DUPLEX LOWER EXTREMITY BILATERAL COMPLETE IP Routine 02/26/2025 3:31 PM CHEF EGFR Routine 02/25/2025 9:01 PM CHEF COMPREHENSIVE METABOLIC PANEL Routine 02/25/2025 9:01 PM CHEF CBC WITHOUT DIFFERENTIAL Routine 02/25/2025 9:[address] CYSTOGRAM WO CONTRAST IP Routine 02/25/2025 2:25 PM CHEF TRANSTHORACIC ECHO (TTE) COMPLETE W DOPPLER/CF W CONTRAST ED Urgent/IP Urgent 02/25/2025 8:55 AM CHEF EGFR Routine 02/24/2025 10:14 PM CHEF COMPREHENSIVE METABOLIC PANEL Routine 02/24/2025 10:14 PM CHEF CBC WITHOUT DIFFERENTIAL Routine 02/24/2025 10:14 PM CHEF APTT STAT 02/24/2025 12:05 PM CHEF PROTIME-INR STAT 02/24/2025 12:05 PM CHEF CALCIUM, IONIZED Routine 02/24/2025 10:4 4 AM CHEF PTH-RELATED PEPTIDE Routine 02/24/2025 1 0:32 AM CHEF EGFR Routine 02/24/2025 10:32 AM CHEF THYROID FUNCTION CASCADE Routine 02/24/2025 10:32 AM CHEF CONDITIONAL USE LAVENDER-TOP TUBE Routine 02/24/2025 10:32 AM CHEF PTH WITH REFLEX TO PTHRP (HYPERCALCEMIA REFLEX) Routine 02/24/2025 10:32 AM CHEF VITAMIN D 25 HYDROXY Routine 02/24/2025 10:32 AM CHEF MAGNESIUM Routine 02/24/2025 10:32 AM CHEF COMPREHENSIVE METABOLIC PANEL Routine 02/24/2025 10:[address] CHEST PE W CONTRAST ED 02/24/2025 9:52 AM CHEF POCT GLUCOSE DEVICE Routine 02/24/2025 1 :53 AM CHEF SEPSIS LACTATE WITH REFLEX Timed 02/24/2025 1:[address] ABDOMEN PELVIS W CONTRAST ED 02/24/2025 1:18 AM CHEF URINALYSIS, MICROSCOPIC ONLY STAT 02/24/2025 1:06 AM CHEF TROPONIN I HIGH-SENSITIVITY 2-HOUR Timed 02/24/2025 1:06 AM CHEF URINE CULTURE STAT 02/24/2025 1:06 AM CHEF BLOOD CULTURE STAT 02/24/2025 1:06 AM CHEF BLOOD CULTURE STAT 02/24/2025 1:06 AM CHEF URINALYSIS AND REFLEX TO MICROSCOPIC AND CULTURE STAT 02/24/2025 1:06 AM CHEF SEPSIS LACTATE WITH REFLEX STAT 02/23/2025 10:24 PM CHEF LIPID PANEL STAT 02/23/2025 10:22 PM CHEF HEMOGLOBIN A1C STAT 02/23/2025 10:22 PM CHEF EGFR STAT 02/23/2025 10:22 PM CHEF DIFFERENTIAL AUTO STAT 02/23/2025 10: 22 PM CHEF CALCIUM, IONIZED STAT 02/23/2025 10:2 2 PM CHEF TROPONIN I HIGH-SENSITIVITY SERIES (BASELINE, 2HR, 4HR, 6HR) STAT 02/23/2025 10:22 PM CHEF COMPREHENSIVE METABOLIC PANEL STAT 02/23/2025 10:22 PM CHEF CBC WITH AUTO DIFFERENTIAL STAT 02/23/2025 10:22 PM CHEF ECG 12-LEAD STAT 02/23/2025 6:56 PM CHEF XR CHEST PA LATERAL 2 VIEWS ED 02/23/2025 4:15 PM CHEF EGFR Routine 02/18/2025 11:39 AM CDT Calciphylaxis DIFFERENTIAL AUTO Routine 02/18/2025 11: 39 AM CDT Calciphylaxis CBC WITH AUTO DIFFERENTIAL Routine 02/18/2025 11:39 AM CDT Calciphylaxis COMPREHENSIVE METABOLIC PANEL Routine 02/18/2025 11:39 AM CDT Calciphylaxis URINE CULTURE Routine 02/18/2025 10:46 AM CDT Colovesical fistula EGFR Routine 02/13/2025 2:00 PM CDT Calciphylaxis DIFFERENTIAL AUTO Routine 02/13/2025 2:0 0 PM CDT Calciphylaxis CBC WITH AUTO DIFFERENTIAL Routine 02/13/2025 2:00 PM CDT Calciphylaxis COMPREHENSIVE METABOLIC PANEL Routine 02/13/2025 2:00 PM CDT Calciphylaxis EGFR Routine 02/04/2025 12:23 PM CDT Calciphylaxis DIFFERENTIAL AUTO Routine 02/04/2025 12: 23 PM CDT Calciphylaxis CBC WITH AUTO DIFFERENTIAL Routine 02/04/2025 12:23 PM CDT Calciphylaxis COMPREHENSIVE METABOLIC PANEL Routine 02/04/2025 12:23 PM CDT Calciphylaxis EGFR Routine 01/28/2025 9:24 PM CDT PHOSPHORUS Routine 01/28/2025 9:24 PM CDT MAGNESIUM Routine 01/28/2025 9:24 PM CDT CBC WITHOUT DIFFERENTIAL Routine 01/28/2025 9:24 PM CDT BASIC METABOLIC PANEL Routine 01/28/2025 9:24 PM CDT POCT GLUCOSE DEVICE Routine 01/28/2025 5 :24 AM CDT EGFR Routine 01/27/2025 9:32 PM CDT PHOSPHORUS Routine 01/27/2025 9:32 PM CDT MAGNESIUM Routine 01/27/2025 9:32 PM CDT CBC WITHOUT DIFFERENTIAL Routine 01/27/2025 9:32 PM CDT BASIC METABOLIC PANEL Routine 01/27/2025 9:32 PM CDT POCT GLUCOSE DEVICE Routine 01/27/2025 4 :[address] CYSTOGRAM WO CONTRAST IP Routine 01/27/2025 1:56 PM CDT POCT GLUCOSE DEVICE Routine 01/27/2025 1 2:36 PM CDT POCT GLUCOSE DEVICE Routine 01/27/2025 8 :02 AM CDT POCT GLUCOSE DEVICE Routine 01/27/2025 4 :03 AM CDT POCT GLUCOSE DEVICE Routine 01/27/2025 1 2:11 AM CDT EGFR Routine 01/26/2025 10:18 PM CDT PHOSPHORUS Routine 01/26/2025 10:18 PM CDT MAGNESIUM Routine 01/26/2025 10:18 PM CDT CBC WITHOUT DIFFERENTIAL Routine 01/26/2025 10:18 PM CDT BASIC METABOLIC PANEL Routine 01/26/2025 10:18 PM CDT POCT GLUCOSE DEVICE Routine 01/26/2025 7 :53 PM CDT POCT GLUCOSE DEVICE Routine 01/26/2025 4 :13 PM CDT POCT GLUCOSE DEVICE Routine 01/26/2025 1 2:05 PM CDT POCT GLUCOSE DEVICE Routine 01/26/2025 7 :44 AM CDT POCT GLUCOSE DEVICE Routine 01/26/2025 4 :32 AM CDT POCT GLUCOSE DEVICE Routine 01/25/2025 1 1:47 PM CDT EGFR Routine 01/25/2025 8:47 PM CDT PHOSPHORUS Routine 01/25/2025 8:47 PM CDT MAGNESIUM Routine 01/25/2025 8:47 PM CDT CBC WITHOUT DIFFERENTIAL Routine 01/25/2025 8:47 PM CDT BASIC METABOLIC PANEL Routine 01/25/2025 8:47 PM CDT POCT GLUCOSE DEVICE Routine 01/25/2025 7 :54 PM CDT POCT GLUCOSE DEVICE Routine 01/25/2025 5 :28 PM CDT POCT GLUCOSE DEVICE Routine 01/25/2025 1 2:12 PM CDT POCT GLUCOSE DEVICE Routine 01/25/2025 8 :13 AM CDT POCT GLUCOSE DEVICE Routine 01/25/2025 4 :31 AM CDT EGFR Routine 01/24/2025 8:27 PM CDT PHOSPHORUS Routine 01/24/2025 8:27 PM CDT MAGNESIUM Routine 01/24/2025 8:27 PM CDT CBC WITHOUT DIFFERENTIAL Routine 01/24/2025 8:27 PM CDT BASIC METABOLIC PANEL Routine 01/24/2025 8:27 PM CDT POCT GLUCOSE DEVICE Routine 01/24/2025 8 :25 PM CDT POCT GLUCOSE DEVICE Routine 01/24/2025 6 :17 PM CDT POCT GLUCOSE DEVICE Routine 01/24/2025 4 :33 PM CDT POCT GLUCOSE DEVICE Routine 01/24/2025 1 2:32 PM CDT POCT GLUCOSE DEVICE Routine 01/24/2025 8 :31 AM CDT POCT GLUCOSE DEVICE Routine 01/24/2025 4 :48 AM CDT POCT GLUCOSE DEVICE Routine 01/24/2025 1 2:51 AM CDT EGFR Routine 01/23/2025 9:05 PM CDT PHOSPHORUS Routine 01/23/2025 9:05 PM CDT MAGNESIUM Routine 01/23/2025 9:05 PM CDT CBC WITHOUT DIFFERENTIAL Routine 01/23/2025 9:05 PM CDT BASIC METABOLIC PANEL Routine 01/23/2025 9:05 PM CDT POCT GLUCOSE DEVICE Routine 01/23/2025 9 :02 PM CDT POCT GLUCOSE DEVICE Routine 01/23/2025 4 :07 PM CDT POCT GLUCOSE DEVICE Routine 01/23/2025 1 2:17 PM CDT EGFR Routine 01/23/2025 9:46 AM CDT PHOSPHORUS Routine 01/23/2025 9:46 AM CDT MAGNESIUM Routine 01/23/2025 9:46 AM CDT CBC WITHOUT DIFFERENTIAL Routine 01/23/2025 9:46 AM CDT BASIC METABOLIC PANEL Routine 01/23/2025 9:46 AM CDT POCT GLUCOSE DEVICE Routine 01/23/2025 8 :13 AM CDT POCT GLUCOSE DEVICE Routine 01/23/2025 4 :42 AM CDT POCT GLUCOSE DEVICE Routine 01/23/2025 1 2:07 AM CDT POCT GLUCOSE DEVICE Routine 01/22/2025 9 :32 PM CDT POCT GLUCOSE DEVICE Routine 01/22/2025 1 2:25 PM CDT POCT GLUCOSE DEVICE Routine 01/22/2025 9 :00 AM CDT POCT GLUCOSE DEVICE Routine 01/22/2025 4 :34 AM CDT POCT GLUCOSE DEVICE Routine 01/22/2025 1 2:39 AM CDT EGFR Timed 01/21/2025 8:27 PM CDT BASIC METABOLIC PANEL Timed 01/21/2025 8:27 PM CDT CBC WITHOUT DIFFERENTIAL Timed 01/21/2025 8:27 PM CDT POCT GLUCOSE DEVICE Routine 01/21/2025 8 :11 PM CDT POCT GLUCOSE DEVICE Routine 01/21/2025 3 :43 PM CDT POCT GLUCOSE DEVICE Routine 01/21/2025 1 :13 PM CDT POCT GLUCOSE DEVICE Routine 01/21/2025 4 :49 AM CDT EGFR Timed 01/20/2025 9:40 PM CDT BASIC METABOLIC PANEL Timed 01/20/2025 9:40 PM CDT CBC WITHOUT DIFFERENTIAL Timed 01/20/2025 9:40 PM CDT POCT GLUCOSE DEVICE Routine 01/20/2025 9 :33 PM CDT POCT GLUCOSE DEVICE Routine 01/20/2025 6 :23 PM CDT SURGICAL PATHOLOGY Routine 01/20/2025 3: 51 PM CDT Colovesical fistula POCT GLUCOSE DEVICE Routine 01/20/2025 3 :49 PM CDT MT AN PROCEDURE PLACEHOLDER Routine 01/20/2025 2:20 PM CDT MT AN ELECTIVE ENDOTRACHEAL AIRWAY Routine 01/20/2025 2:20 PM CDT PLACEMENT PREOPERATIVE STENT - URETERAL 01/20/2025 1:45 PM CDT Colovesical fistula Case Notes 01/19@1131- Per Garret via phone call needs to add panel - DMF RESECTION SIGMOID COLON 01/20/2025 1:45 PM CDT Colovesical fistula Case Notes 01/19@1131- Per Garret via phone call needs to add panel - DMF EXPLORATORY LAPAROTOMY 01/20/2025 1:45 PM CDT Colovesical fistula Case Notes 01/19@1131- Per Garret via phone call needs to add panel - DMF POCT GLUCOSE DEVICE Routine 01/20/2025 1 :10 PM CDT POCT GLUCOSE DEVICE Routine 01/20/2025 7 :59 AM CDT MAGNESIUM Routine 01/20/2025 4:53 AM CDT EGFR Routine 01/20/2025 4:53 AM CDT DIFFERENTIAL AUTO Routine 01/20/2025 4:5 3 AM CDT CBC WITH AUTO DIFFERENTIAL Routine 01/20/2025 4:53 AM CDT PHOSPHORUS Routine 01/20/2025 4:53 AM CDT BASIC METABOLIC PANEL Routine 01/20/2025 4:53 AM CDT POCT GLUCOSE DEVICE Routine 01/20/2025 4 :37 AM CDT POCT GLUCOSE DEVICE Routine 01/20/2025 1 2:25 AM CDT POCT GLUCOSE DEVICE Routine 01/19/2025 8 :05 PM CDT POCT GLUCOSE DEVICE Routine 01/19/2025 3 :39 PM CDT HCG, URINE, QUALITATIVE Routine 01/19/2025 2:55 PM CDT TYPE AND SCREEN Timed 01/19/2025 1:25 PM CDT POCT GLUCOSE DEVICE Routine 01/19/2025 1 2:10 PM CDT POCT GLUCOSE DEVICE Routine 01/19/2025 1 0:28 AM CDT HEPATIC FUNCTION PANEL Routine 01/19/2025 5:22 AM CDT EGFR Routine 01/19/2025 5:22 AM CDT DIFFERENTIAL AUTO Routine 01/19/2025 5:2 2 AM CDT CBC WITH AUTO DIFFERENTIAL Routine 01/19/2025 5:22 AM CDT PHOSPHORUS Routine 01/19/2025 5:22 AM CDT BASIC METABOLIC PANEL Routine 01/19/2025 5:22 AM CDT EGFR Routine 01/18/2025 5:54 AM CDT DIFFERENTIAL AUTO Routine 01/18/2025 5:5 4 AM CDT CBC WITH AUTO DIFFERENTIAL Routine 01/18/2025 5:54 AM CDT PHOSPHORUS Routine 01/18/2025 5:54 AM CDT BASIC METABOLIC PANEL Routine 01/18/2025 5:54 AM CDT BASIC METABOLIC PANEL Routine 01/17/2025 5:56 AM CDT EGFR Routine 01/17/2025 5:56 AM CDT PHOSPHORUS Routine 01/17/2025 5:56 AM CDT MAGNESIUM Routine 01/17/2025 5:56 AM CDT EGFR Routine 01/16/2025 6:04 AM CDT BASIC METABOLIC PANEL Routine 01/16/2025 6:04 AM CDT BASIC METABOLIC PANEL Routine 01/15/2025 5:52 AM CDT EGFR Routine 01/15/2025 5:52 AM CDT CBC WITHOUT DIFFERENTIAL Routine 01/15/2025 5:52 AM CDT PHOSPHORUS Routine 01/15/2025 5:52 AM CDT MAGNESIUM Routine 01/15/2025 5:52 AM CDT EGFR Routine 01/14/2025 5:59 AM CDT BASIC METABOLIC PANEL Routine 01/14/2025 5:59 AM CDT DIFFERENTIAL AUTO STAT 01/13/2025 6:5 5 PM CDT CBC WITH AUTO DIFFERENTIAL STAT 01/13/2025 6:55 PM CDT TYPE AND SCREEN STAT 01/13/2025 6:55 PM CDT EGFR Routine 01/13/2025 6:14 AM CDT BASIC METABOLIC PANEL Routine 01/13/2025 6:14 AM CDT EGFR Routine 01/12/2025 5:44 AM CDT IRON PROFILE W/ IBC Routine 01/12/2025 5 :44 AM CDT BASIC METABOLIC PANEL Routine 01/12/2025 5:44 AM CDT CBC WITHOUT DIFFERENTIAL Routine 01/12/2025 5:44 AM CDT HEPATIC FUNCTION PANEL Routine 01/12/2025 5:44 AM CDT PHOSPHORUS Routine 01/12/2025 5:44 AM CDT MAGNESIUM Routine 01/12/2025 5:44 AM CDT EGFR Routine 01/11/2025 6:51 AM CDT BASIC METABOLIC PANEL Routine 01/11/2025 6:51 AM CDT PEP THERAPY Routine 01/11/2025 12:00 AM CDT EGFR Routine 01/10/2025 7:25 AM CDT BASIC METABOLIC PANEL Routine 01/10/2025 7:25 AM CDT EGFR Routine 01/09/2025 6:30 AM CDT BASIC METABOLIC PANEL Routine 01/09/2025 6:30 AM CDT INFECTION PREVENTION VRE CULTURE Routine 01/08/2025 9:26 PM CDT C. DIFFICILE TESTING Routine 01/08/2025 9:26 PM CDT PEP THERAPY Routine 01/08/2025 6:00 PM CDT PEP THERAPY Routine 01/08/2025 12:00 PM CDT PEP THERAPY Routine 01/08/2025 6:01 AM CDT BASIC METABOLIC PANEL Routine 01/08/2025 6:00 AM CDT EGFR Routine 01/08/2025 6:00 AM CDT CBC WITHOUT DIFFERENTIAL Routine 01/08/2025 6:00 AM CDT PHOSPHORUS Routine 01/08/2025 6:00 AM CDT MAGNESIUM Routine 01/08/2025 6:00 AM CDT PEP THERAPY Routine 01/08/2025 12:00 AM CDT PEP THERAPY Routine 01/07/2025 6:00 PM CDT PEP THERAPY Routine 01/07/2025 12:00 PM CDT PEP THERAPY Routine 01/07/2025 6:01 AM CDT EGFR Routine 01/07/2025 5:59 AM CDT BASIC METABOLIC PANEL Routine 01/07/2025 5:59 AM CDT PEP THERAPY Routine 01/07/2025 12:00 AM CDT POCT GLUCOSE DEVICE Routine 01/06/2025 8 :16 PM CDT PEP THERAPY Routine 01/06/2025 6:00 PM CDT PEP THERAPY Routine 01/06/2025 12:00 PM CDT EGFR Routine 01/06/2025 6:15 AM CDT BASIC METABOLIC PANEL Routine 01/06/2025 6:15 AM CDT PEP THERAPY Routine 01/06/2025 6:01 AM CDT PEP THERAPY Routine 01/06/2025 12:00 AM CDT POCT GLUCOSE DEVICE Routine 01/05/2025 8 :29 PM CDT PEP THERAPY Routine 01/05/2025 6:00 PM CDT POCT GLUCOSE DEVICE Routine 01/05/2025 5 :07 PM CDT PEP THERAPY Routine 01/05/2025 12:00 PM CDT POCT GLUCOSE DEVICE Routine 01/05/2025 1 1:34 AM CDT POCT GLUCOSE DEVICE Routine 01/05/2025 7 :38 AM CDT BASIC METABOLIC PANEL Routine 01/05/2025 6:27 AM CDT EGFR Routine 01/05/2025 6:27 AM CDT CBC WITHOUT DIFFERENTIAL Routine 01/05/2025 6:27 AM CDT HEPATIC FUNCTION PANEL Routine 01/05/2025 6:27 AM CDT PHOSPHORUS Routine 01/05/2025 6:27 AM CDT MAGNESIUM Routine 01/05/2025 6:27 AM CDT INFECTION PREVENTION RUDDY AURIS PCR, SURVEILLANCE Routine 01/05/2025 6:27 AM CDT PEP THERAPY Routine 01/05/2025 6:01 AM CDT PEP THERAPY Routine 01/05/2025 12:00 AM CDT POCT GLUCOSE DEVICE Routine 01/04/2025 7 :23 PM CDT PEP THERAPY Routine 01/04/2025 6:00 PM CDT POCT GLUCOSE DEVICE Routine 01/04/2025 5 :11 PM CDT PEP THERAPY Routine 01/04/2025 12:00 PM CDT POCT GLUCOSE DEVICE Routine 01/04/2025 1 1:45 AM CDT POCT GLUCOSE DEVICE Routine 01/04/2025 7 :45 AM CDT EGFR Routine 01/04/2025 6:43 AM CDT BASIC METABOLIC PANEL Routine 01/04/2025 6:43 AM CDT PEP THERAPY Routine 01/04/2025 6:00 AM CDT PEP THERAPY Routine 01/04/2025 12:00 AM CDT POCT GLUCOSE DEVICE Routine 01/03/2025 8 :35 PM CDT PEP THERAPY Routine 01/03/2025 6:00 PM CDT POCT GLUCOSE DEVICE Routine 01/03/2025 5 :06 PM CDT CENTRAL LINE PLACEMENT > 5 YEARS IP Routine 01/03/2025 2:10 PM CDT PEP THERAPY Routine 01/03/2025 12:00 PM CDT POCT GLUCOSE DEVICE Routine 01/03/2025 1 1:41 AM CDT POCT GLUCOSE DEVICE Routine 01/03/2025 8 :11 AM CDT EGFR Routine 01/03/2025 7:19 AM CDT BASIC METABOLIC PANEL Routine 01/03/2025 7:19 AM CDT POCT GLUCOSE DEVICE Routine 01/02/2025 9 :19 PM CDT POCT GLUCOSE DEVICE Routine 01/02/2025 8 :25 PM CDT POCT GLUCOSE DEVICE Routine 01/02/2025 1 1:22 AM CDT EGFR Routine 01/02/2025 6:08 AM CDT BASIC METABOLIC PANEL Routine 01/02/2025 6:08 AM CDT POCT GLUCOSE DEVICE Routine 01/01/2025 8 :04 PM CDT POCT GLUCOSE DEVICE Routine 01/01/2025 5 :49 PM CDT POCT GLUCOSE DEVICE Routine 01/01/2025 1 1:20 AM CDT POCT GLUCOSE DEVICE Routine 01/01/2025 7 :40 AM CDT EGFR Routine 01/01/2025 5:56 AM CDT CBC WITHOUT DIFFERENTIAL Routine 01/01/2025 5:56 AM CDT BASIC METABOLIC PANEL Routine 01/01/2025 5:56 AM CDT PHOSPHORUS Routine 01/01/2025 5:56 AM CDT MAGNESIUM Routine 01/01/2025 5:56 AM CDT POCT GLUCOSE DEVICE Routine 12/31/2024 8 :11 PM CDT PEP THERAPY Routine 12/31/2024 6:00 PM CDT EGFR STAT 12/31/2024 5:44 PM CDT BASIC METABOLIC PANEL STAT 12/31/2024 5:44 PM CDT POCT GLUCOSE DEVICE Routine 12/31/2024 5 :24 PM CDT CRITICAL RESULT CALLBACK CHEMISTRY Routine 12/31/2024 4:13 PM CDT AMMONIA Routine 12/31/2024 4:13 PM CDT BLOOD GAS, VENOUS Routine 12/31/2024 4:1 3 PM CDT PEP THERAPY Routine 12/31/2024 12:00 PM CDT POCT GLUCOSE DEVICE Routine 12/31/2024 1 1:47 AM CDT POCT GLUCOSE DEVICE Routine 12/31/2024 9 :54 AM CDT POCT GLUCOSE DEVICE Routine 12/31/2024 7 :58 AM CDT EGFR Routine 12/31/2024 6:07 AM CDT BASIC METABOLIC PANEL Routine 12/31/2024 6:07 AM CDT COLONOSCOPY 11/03/2024 3:57 PM CDT HEPATITIS C ANTIBODY Routine 09/18/2024 9:32 PM CDT from Last 3 Months or Most Recently Relevant to Health Maintenance Results * Targeted Opioid Screen, Ur (03/18/2025 5:21 PM CHEF) [facility] Pain mgt 6-Acetylmorphine, Ur Not Detected CutOff 10 ng/mL Pain mgt Buprenorphine, Ur Not Detected CutOff 5 ng/mL [facility] Pain mgt Buprenorphine metabolite (Norbuprenorphine), Ur Not Detected CutOff 5 ng/mL [facility] Pain mgt Codeine, Ur Not Detected CutOff 25 ng/mL [facility] Pain mgt Hydrocodone, Ur Not Detected CutOff 25 ng/mL [facility] Pain mgt Hydromorphone, Ur Not Detected CutOff 25 ng/mL [facility] Pain mgt Methadone, Ur Not Detected CutOff 25 ng/mL [facility] Pain mgt Methadone Metabolite (EDDP), Ur Not Detected CutOff 25 ng/mL [facility] Pain mgt Morphine, Ur Not Detected CutOff 25 ng/mL [facility] Pain mgt Oxycodone, Ur Detected CutOff 25 ng/mL [facility] Pain mgt Oxymorphone, Ur Not Detected CutOff 25 ng/mL [facility] Pain mgt Tapentadol, Ur Not Detected CutOff 25 ng/mL [facility] Pain mgt Tramadol, Ur Not Detected CutOff 25 ng/mL [facility] Pain mgt Tramadol metabolite (O-desmethyltramado l), Ur Not Detected CutOff 25 ng/mL [facility] Comment: Interpretive Data This test only detects free, unconjugated drugs. The absence of expected drug(s) and/or metabolite(s) may indicate non-compliance, inappropriate timing of specimen collection relative to the time of dosing, variability in absorption, diluted or adulterated urine, or other testing limitations. Questions concerning interpretation should be directed to the laboratory. The results of this test are to be used only for medical purposes and are not suitable for forensic use. This test was developed and its performance characteristics determined by [facility]. It has not been cleared or approved by the U.S. Food and Drug Administration. Current interpretive data was last revised 18. Pain mgt Naloxone, ur Not Detected cutoff 20 ng/ml [facility] Urine 03/18/2025 5:21 PM CHEF 03/18/2025 6:03 PM CHEF us Natalie Esqueda MD LAB URINE ORDERABLES Final Result [facility] [place] [address] * (ABNORMAL) Drugs of Abuse Screen, Urine with Reflex Confirmation (03/18/2025 5:21 PM CHEF) Amphetamine, ur Not Detected CutOff 500ng/mL Comment: Interpretive Data - Amphetamines: Samples containing greater than 500 ng/mL d-methamphetamine or other cross-reacting amphetamine compounds are reported as positive. Amphetamine immunoassays are subject to significant false positive rates due to cross-reactivity of non-amphetamine drugs. Confirmatory testing required for definitive results. Current Interpretive Data was last reviewed 2022. Barbiturates, ur Not Detected CutOff 200ng/mL [facility] Comment: Interpretive Data - Barbiturates: Samples containing greater than 200 ng/mL secobarbital or other cross-reacting barbiturate compounds are reported as positive. False positive and false negative results are possible. Confirmatory testing required for definitive results. Current Interpretive Data was last reviewed 2022. Benzodiazepines, ur Not Detected CutOff 100ng/mL [facility] Comment: Interpretive Data - Benzodiazepines: Samples containing greater than 100 ng/mL nordiazepam or other cross-reacting compounds are reported as positive. False positive and false negative results are possible. Confirmatory testing required for definitive results. Current Interpretive Data was last reviewed 2022. Cannabinoids, ur Not Detected CutOff 50 ng/mL [facility] Comment: Interpretive Data - Cannabinoids: Samples containing greater than 50 ng/mL delta-9 THC -COOH or other cross- reacting compounds are reported as positive. False positive and false negative results are possible. Confirmatory testing required for definitive results. Current Interpretive Data was last reviewed 2022. Cocaine, ur Not Detected CutOff 150ng/mL [facility] Comment: Interpretive Data - Cocaine: Samples containing greater than 150 ng/mL benzoylecgonine or other cross- reacting compounds are reported as positive. False positive and false negative results are possible. Confirmatory testing required for definitive results. Current Interpretive Data was last reviewed 2022. Fentanyl, Ur Not Detected CutOff 5 ng/mL [facility] Comment: Interpretive Data - Fentanyl: Samples containing greater than 5 ng/mL norfentanyl, fentanyl, or other cross-reacting fentanyl compounds are reported as positive. False positive and false negative results are possible. Confirmatory testing required for definitive results. Current Interpretive Data was last reviewed 2023. Methadone, ur Not Detected CutOff 300ng/mL [facility] Comment: Interpretive Data - Methadone: Samples containing greater than 300 ng/mL d,l-methadone or other cross-reacting compounds are reported as positive. False positive and false negative results are possible. Confirmatory testing required for definitive results. Current Interpretive Data was last reviewed 2022. Opiates, ur Not Detected CutOff 300ng/mL [facility] Comment: Interpretive Data - Opiates: Samples containing greater than 300 ng/mL morphine or other cross-reacting compounds are reported as positive. False positive and false negative results are possible. Confirmatory testing required for definitive results. Current Interpretive Data was last reviewed 2022. Oxycodone, ur Screen Positive, presumptive (A) CutOff 100ng/mL [facility] Comment: Interpretive Data - Oxycodone: Samples containing greater than 100 ng/mL oxycodone or other cross-reacting compounds are reported as positive. False positive and false negative results are possible. Confirmatory testing required for definitive results. Current Interpretive Data was last reviewed 2022. Phencyclidine, ur Not Detected CutOff 25 ng/mL [facility] Comment: Interpretive Data - Phencyclidine: Samples containing greater than 25 ng/mL phencyclidine or other cross-reacting compounds are reported as positive. False positive and false negative results are possible. Confirmatory testing required for definitive results. Current Interpretive Data was last reviewed 2022. Urine Creatinine 73 mg/dL [facility] Comment: Interpretive Data Urine Creatinine: < 10 mg/dL is extremely dilute = or > 10 but < 20 mg/dL is dilute = or > 20 mg/dL is normal Current Interpretive Data was last revised on 2017. Urine 03/18/2025 5:21 PM CHEF 03/18/2025 6:03 PM CHEF Narrative [facility] - 03/18/2025 7:03 PM CHEF Drug Screening is performed by immunoassay for medical purposes. If positive, confirmation testing will be performed for amphetamines, benzodiazepines, cocaine, fentanyl, methadone, opiates, oxycodone, and phencyclidine. us Natalie Esqueda MD LAB URINE ORDERABLES Final Result [facility] Department [place] [address] * (ABNORMAL) Urinalysis reflex to microscopic and culture Urine (03/18/2025 5:21 PM CHEF) Color, ur Straw Yellow Clarity, ur Cloudy(A) Clear [facility] Specific gravity, ur 1.015 1.003 - 1.030 [facility] pH, urine 6.5 [facility] Comment: Interpretive Data U rine pH is affected by diet, medications, systemic acid-base disturbances, and renal tubular function. pH may affect urinary stone formation. For example, urine pH below 6.0 may help reduce the tendency for calcium phosphate stones and pH greater than 6.0 may reduce the tendency for uric acid stone formation. Source: [facility] Current Interpretive Data was last revised on 2017 Protein, ur ql 1+(A) Negative [facility] Glucose, ur ql Negative Negative [facility] Ketones, ur Negative Negative [facility] Bilirubin, ur Negative Negative [facility] Blood, ur Trace(A) Negative [facility] Urobilinogen, ur <2.0 <2.0 mg/dL [facility] Nitrite, ur Positive(A) Negative [facility] Leukocyte esterase, ur 3+(A) Negative [facility] UA reflex comment Reflex to microscopic UA will be performed. [facility] Urine 03/18/2025 5:21 PM CHEF 03/18/2025 6:03 PM CHEF us Natalie Iniguez MD LAB MICROBIOLOGY - GENERAL ORDERABLES Final Result [facility] Department [place] [address] * (ABNORMAL) Urinalysis, microscopic only (03/18/2025 5:21 PM CHEF) WBC, ur >50(A) 0 - 5 /HPF RBC, ur 21-50(A) 0 - 2 /HPF [facility] Epithelial cells, squamous, ur 1-5 0 - 5 /HPF [facility] Bacteria, ur 3+(A) [facility] Mucous, ur Present(A) [facility] Culture Reflex Comment Reflex to urine culture will be performed. 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 Please submit a new specimen with special attention given to the collection process and to prompt transport to the laboratory. (.) Organism GROWTH INDICATES CONTAMINATION WITH MIXED KRZYSZTOF. [facility] Urine 03/18/2025 5:21 PM CHEF 03/18/2025 7:31 PM CHEF Narrative [facility] - 03/20/2025 7:48 AM CHEF Urine culture reflexed based upon urinalysis results. Testing performed by [facility] ([phone]) us Natalie Iniguez MD LAB MICROBIOLOGY - GENERAL ORDERABLES Final Result Performing Organization Address [facility] Co de Phone Number [facility] Department [place] [address] * (ABNORMAL) eGFR (03/02/2025 9:21 PM CHEF) eGFR 43(L) >=60 mL/min/1. 73 m2 Comment: Interpretive Data Reference Interval Normal >/= 90 mL/min/1.73m2 Mildly decreased* 60 - 89 mL/min/1.73m2 Mildly to moderately decreased 45 - 59 mL/min/1.73m2 Moderately to severely decreased 30 - 44 mL/min/1.73m2 Severely decreased 15 - 29 mL/min/1.73m2 Kidney Failure < 15 mL/min/1.73m2 *Relative to young adult level Estimated glomerular filtration rate is determined by the 2020 CKD-EPI equation recommended by the National Kidney Foundation (A Unifying Approach to GFR Estimation: Recommendations of the NKF-ASK Task Force on Reassessing the Inclusion of Race in Diagnosing Kidney Disease, JASN 2020). The CKD-EPI equation should not be used for patients with unstable renal function and has not been validated in children and those over 70. Current interpretive data was last reviewed 2021. Blood 03/02/2025 9:21 PM CHEF 03/02/2025 11:08 PM CHEF us Inessa Reddy MD LAB BLOOD ORDERABLES María l Result [facility] Department [place] [address] * (ABNORMAL) CBC without differential (03/02/2025 9:21 PM CHEF) Pathologist [facility] WBC 9.78 3.80 - 9.90 K/cumm Hgb 9.7(L) 11.9 - 15.5 g/dL [facility] Hct 30.9(L) 35.6 - 45.5 % [facility] Plt 228 150 - 400 K/cumm [facility] MPV 10.5 9.1 - 12.3 fL [facility] RBC 3.49(L) 3.90 - 5.20 M/cumm [facility] MCV 88.5 81.3 - 96.4 fL [facility] MCH 27.8 27.1 - 33.3 pg [facility] MCHC 31.4(L) 32.3 - 35.7 g/dL [facility] RDW CV 17.2(H) 11.1 - 14.9 % [facility] RDW SD 54.4(H) 35.7 - 48.1 fL [facility] NRBC abs 0.00 0.00 - 0.01 K/cumm [facility] Blood 03/02/2025 9:21 PM CHEF 03/02/2025 11:09 PM CHEF us Mulu Mabry MD LAB BLOOD ORDERABLES Final Resu lt [facility] [place] [address] * (ABNORMAL) Comprehensive metabolic panel (03/02/2025 9:21 PM CHEF) Sodium 140 135 - 145 mmol/L Potassium, pl 4.7 3.3 - 4.9 mmol/L [facility] Chloride 103 97 - 110 mmol/L [facility] CO2 30 22 - 32 mmol/L [facility] Anion gap 7 2 - 15 mmol/L [facility] BUN 21 6 - 25 mg/dL [facility] Creatinine 1.51(H) 0.60 - 1.10 mg/dL [facility] Glucose 121 70 - 199 mg/dL [facility] Comment: Interpretive Data Fasting glucose >/= 126 mg/dl is diagnostic for diabetes. Fasting is defined as no caloric intake for at least 8 hours. Fasting glucose between 100 mg/dl to 125 mg/dl is diagnostic of prediabetes. In a patient with classic symptoms of hyperglycemia or hyperglycemic crisis, a random glucose >/= 200 mg/dl is diagnostic for diabetes. In the absence of unequivocal hyperglycemia, results should be confirmed by repeat testing. The classification and Diagnosis of Diabetes Diabetes Care 2021; 46: S19-S40. Current interpretive data was last revised 2022. Calcium 9.7 8.5 - 10.3 mg/dL [facility] Bilirubin, total <0.2 0.1 - 1.2 mg/dL [facility] Protein, pl 7.0 6.5 - 8.5 g/dL [facility] Albumin 3.1(L) 3.5 - 5.0 g/dL [facility] Alk phos 110 40 - 130 Units/L [facility] ALT 24 7 - 45 Units/L [facility] AST 26 10 - 45 Units/L [facility] Blood 03/02/2025 9:21 PM CHEF 03/02/2025 11:08 PM CHEF us Inessa Reddy MD LAB BLOOD ORDERABLES María newell Result [facility] Department [place] [address] * (ABNORMAL) eGFR (03/01/2025 8:13 PM CHEF) eGFR 49(L) >=60 mL/min/1. 73 m2 Comment: Interpretive Data Reference Interval Normal >/= 90 mL/min/1.73m2 Mildly decreased* 60 - 89 mL/min/1.73m2 Mildly to moderately decreased 45 - 59 mL/min/1.73m2 Moderately to severely decreased 30 - 44 mL/min/1.73m2 Severely decreased 15 - 29 mL/min/1.73m2 Kidney Failure < 15 mL/min/1.73m2 *Relative to young adult level Estimated glomerular filtration rate is determined by the 2020 CKD-EPI equation recommended by the National Kidney Foundation (A Unifying Approach to GFR Estimation: Recommendations of the NKF-ASK Task Force on Reassessing the Inclusion of Race in Diagnosing Kidney Disease, JASN 2020). The CKD-EPI equation should not be used for patients with unstable renal function and has not been validated in children and those over 70. Current interpretive data was last reviewed 2021. Blood 03/01/2025 8:13 PM CHEF 03/01/2025 8:31 PM CHEF us Inessa Reddy MD LAB BLOOD ORDERABLES María newell Result [facility] Department [place] [address] * (ABNORMAL) CBC without differential (03/01/2025 8:13 PM CHEF) [facility] WBC 11.06(H) 3.80 - 9.90 K/cumm Hgb 9.8(L) 11.9 - 15.5 g/dL [facility] Hct 33.6(L) 35.6 - 45.5 % [facility] Plt 241 150 - 400 K/cumm [facility] MPV 10.4 9.1 - 12.3 fL [facility] RBC 3.72(L) 3.90 - 5.20 M/cumm [facility] MCV 90.3 81.3 - 96.4 fL [facility] MCH 26.3(L) 27.1 - 33.3 pg [facility] MCHC 29.2(L) 32.3 - 35.7 g/dL [facility] RDW CV 16.6(H) 11.1 - 14.9 % [facility] RDW SD 53.7(H) 35.7 - 48.1 fL [facility] NRBC abs 0.00 0.00 - 0.01 K/cumm [facility] Blood 03/01/2025 8:13 PM CHEF 03/01/2025 8:32 PM CHEF us Mulu Mabry MD LAB BLOOD ORDERABLES Final Resu lt [facility] [place] [address] * (ABNORMAL) Comprehensive metabolic panel (03/01/2025 8:13 PM CHEF) Sodium 140 135 - 145 mmol/L Potassium, pl 4.5 3.3 - 4.9 mmol/L [facility] Chloride 104 97 - 110 mmol/L [facility] CO2 30 22 - 32 mmol/L [facility] Anion gap 6 2 - 15 mmol/L [facility] BUN 18 6 - 25 mg/dL [facility] Creatinine 1.35(H) 0.60 - 1.10 mg/dL [facility] Glucose 123 70 - 199 mg/dL [facility] Comment: Interpretive Data Fasting glucose >/= 126 mg/dl is diagnostic for diabetes. Fasting is defined as no caloric intake for at least 8 hours. Fasting glucose between 100 mg/dl to 125 mg/dl is diagnostic of prediabetes. In a patient with classic symptoms of hyperglycemia or hyperglycemic crisis, a random glucose >/= 200 mg/dl is diagnostic for diabetes. In the absence of unequivocal hyperglycemia, results should be confirmed by repeat testing. The classification and Diagnosis of Diabetes Diabetes Care 202; 46: S19-S40. Current interpretive data was last revised 2022. Calcium 9.7 8.5 - 10.3 mg/dL [facility] Bilirubin, total <0.2 0.1 - 1.2 mg/dL [facility] Protein, pl 7.2 6.5 - 8.5 g/dL [facility] Albumin 2.9(L) 3.5 - 5.0 g/dL [facility] Alk phos 114 40 - 130 Units/L [facility] ALT 27 7 - 45 Units/L [facility] AST 32 10 - 45 Units/L [facility] Blood 03/01/2025 8:13 PM CHEF 03/01/2025 8:31 PM CHEF Inessa Reddy MD LAB BLOOD ORDERABLES María l Result Performing Organization Address City/[facility]/ZIP Co de Phone Number [facility] Department [place] [address] * (ABNORMAL) eGFR (02/28/2025 8:21 PM CHEF) eGFR 50(L) >=60 mL/min/1. 73 m2 Comment: Interpretive Data Reference Interval Normal >/= 90 mL/min/1.73m2 Mildly decreased* 60 - 89 mL/min/1.73m2 Mildly to moderately decreased 45 - 59 mL/min/1.73m2 Moderately to severely decreased 30 - 44 mL/min/1.73m2 Severely decreased 15 - 29 mL/min/1.73m2 Kidney Failure < 15 mL/min/1.73m2 *Relative to young adult level Estimated glomerular filtration rate is determined by the 2020 CKD-EPI equation recommended by the National Kidney Foundation (A Unifying Approach to GFR Estimation: Recommendations of the NKF-ASK Task Force on Reassessing the Inclusion of Race in Diagnosing Kidney Disease, JASN 2020). The CKD-EPI equation should not be used for patients with unstable renal function and has not been validated in children and those over 70. Current interpretive data was last reviewed 2021. Blood 02/28/2025 8:21 PM CHEF 02/28/2025 8:36 PM CHEF Inessa Reddy MD LAB BLOOD ORDERABLES María l Result [facility] Department [place] [address] * (ABNORMAL) CBC without differential (02/28/2025 8:21 PM CHEF) [facility] WBC 8.67 3.80 - 9.90 K/cumm Hgb 9.5(L) 11.9 - 15.5 g/dL [facility] Hct 30.8(L) 35.6 - 45.5 % [facility] Plt 223 150 - 400 K/cumm [facility] MPV 10.5 9.1 - 12.3 fL [facility] RBC 3.50(L) 3.90 - 5.20 M/cumm [facility] MCV 88.0 81.3 - 96.4 fL [facility] MCH 27.1 27.1 - 33.3 pg [facility] MCHC 30.8(L) 32.3 - 35.7 g/dL [facility] RDW CV 16.4(H) 11.1 - 14.9 % [facility] RDW SD 52.0(H) 35.7 - 48.1 fL [facility] NRBC abs 0.00 0.00 - 0.01 K/cumm [facility] Blood 02/28/2025 8:21 PM CHEF 02/28/2025 8:36 PM CHEF us Mulu Mabry MD LAB BLOOD ORDERABLES Final Resu lt [facility] Department [place] [address] * (ABNORMAL) Comprehensive metabolic panel (02/28/2025 8:21 PM CHEF) [facility] Sodium 143 135 - 145 mmol/L Potassium, pl 4.1 3.3 - 4.9 mmol/L [facility] Chloride 104 97 - 110 mmol/L [facility] CO2 30 22 - 32 mmol/L [facility] Anion gap 9 2 - 15 mmol/L [facility] BUN 16 6 - 25 mg/dL [facility] Creatinine 1.34(H) 0.60 - 1.10 mg/dL [facility] Glucose 124 70 - 199 mg/dL [facility] Comment: Interpretive Data Fasting glucose >/= 126 mg/dl is diagnostic for diabetes. Fasting is defined as no caloric intake for at least 8 hours. Fasting glucose between 100 mg/dl to 125 mg/dl is diagnostic of prediabetes. In a patient with classic symptoms of hyperglycemia or hyperglycemic crisis, a random glucose >/= 200 mg/dl is diagnostic for diabetes. In the absence of unequivocal hyperglycemia, results should be confirmed by repeat testing. The classification and Diagnosis of Diabetes Diabetes Care 2021; 46: S19-S40. Current interpretive data was last revised 2022. Calcium 9.6 8.5 - 10.3 mg/dL [facility] Bilirubin, total <0.2 0.1 - 1.2 mg/dL [facility] Protein, pl 6.9 6.5 - 8.5 g/dL [facility] Albumin 3.1(L) 3.5 - 5.0 g/dL [facility] Alk phos 106 40 - 130 Units/L [facility] ALT 27 7 - 45 Units/L [facility] AST 29 10 - 45 Units/L [facility] Blood 02/28/2025 8:21 PM CHEF 02/28/2025 8:36 PM CHEF us Inessa Reddy MD LAB BLOOD ORDERABLES María newell Result [facility] Department [place] [address] * (ABNORMAL) eGFR (02/27/2025 8:57 PM CHEF) eGFR 46(L) >=60 mL/min/1. 73 m2 Comment: Interpretive Data Reference Interval Normal >/= 90 mL/min/1.73m2 Mildly decreased* 60 - 89 mL/min/1.73m2 Mildly to moderately decreased 45 - 59 mL/min/1.73m2 Moderately to severely decreased 30 - 44 mL/min/1.73m2 Severely decreased 15 - 29 mL/min/1.73m2 Kidney Failure < 15 mL/min/1.73m2 *Relative to young adult level Estimated glomerular filtration rate is determined by the 2020 CKD-EPI equation recommended by the National Kidney Foundation (A Unifying Approach to GFR Estimation: Recommendations of the NKF-ASK Task Force on Reassessing the Inclusion of Race in Diagnosing Kidney Disease, JASN 2020). The CKD-EPI equation should not be used for patients with unstable renal function and has not been validated in children and those over 70. Current interpretive data was last reviewed 2021. Blood 02/27/2025 8:57 PM CHEF 02/27/2025 9:11 PM CHEF us Inessa Reddy MD LAB BLOOD ORDERABLES María newell Result [facility] Department [place] [address] * (ABNORMAL) CBC without differential (02/27/2025 8:57 PM CHEF) [facility] WBC 8.39 3.80 - 9.90 K/cumm Hgb 9.3(L) 11.9 - 15.5 g/dL [facility] Hct 31.0(L) 35.6 - 45.5 % [facility] Plt 240 150 - 400 K/cumm [facility] MPV 10.1 9.1 - 12.3 fL [facility] RBC 3.49(L) 3.90 - 5.20 M/cumm [facility] MCV 88.8 81.3 - 96.4 fL [facility] MCH 26.6(L) 27.1 - 33.3 pg [facility] MCHC 30.0(L) 32.3 - 35.7 g/dL [facility] RDW CV 16.4(H) 11.1 - 14.9 % [facility] RDW SD 53.4(H) 35.7 - 48.1 fL [facility] NRBC abs 0.00 0.00 - 0.01 K/cumm [facility] Blood 02/27/2025 8:57 PM CHEF 02/27/2025 9:11 PM CHEF us Mulu Mabry MD LAB BLOOD ORDERABLES Final Resu lt [facility] Department [place] [address] * (ABNORMAL) Comprehensive metabolic panel (02/27/2025 8:57 PM CHEF) Sodium 144 135 - 145 mmol/L Potassium, pl 3.8 3.3 - 4.9 mmol/L [facility] Chloride 109 97 - 110 mmol/L [facility] CO2 29 22 - 32 mmol/L [facility] Anion gap 6 2 - 15 mmol/L [facility] BUN 16 6 - 25 mg/dL [facility] Creatinine 1.42(H) 0.60 - 1.10 mg/dL [facility] Glucose 100 70 - 199 mg/dL [facility] Comment: Interpretive Data Fasting glucose >/= 126 mg/dl is diagnostic for diabetes. Fasting is defined as no caloric intake for at least 8 hours. Fasting glucose between 100 mg/dl to 125 mg/dl is diagnostic of prediabetes. In a patient with classic symptoms of hyperglycemia or hyperglycemic crisis, a random glucose >/= 200 mg/dl is diagnostic for diabetes. In the absence of unequivocal hyperglycemia, results should be confirmed by repeat testing. The classification and Diagnosis of Diabetes Diabetes Care 2021; 46: S19-S40. Current interpretive data was last revised 2022. Calcium 9.7 8.5 - 10.3 mg/dL [facility] Bilirubin, total <0.2 0.1 - 1.2 mg/dL [facility] Protein, pl 6.9 6.5 - 8.5 g/dL [facility] Albumin 3.2(L) 3.5 - 5.0 g/dL [facility] Alk phos 106 40 - 130 Units/L [facility] ALT 25 7 - 45 Units/L [facility] AST 20 10 - 45 Units/L [facility] Blood 02/27/2025 8:57 PM CHEF 02/27/2025 9:11 PM CHEF Inessa Reddy MD LAB BLOOD ORDERABLES María l Result Performing Organization Address City/[facility]/ZIP Co de Phone Number [facility] Department [place] [address] * (ABNORMAL) eGFR (02/26/2025 10:36 PM CHEF) eGFR 42(L) >=60 mL/min/1. 73 m2 Comment: Interpretive Data Reference Interval Normal >/= 90 mL/min/1.73m2 Mildly decreased* 60 - 89 mL/min/1.73m2 Mildly to moderately decreased 45 - 59 mL/min/1.73m2 Moderately to severely decreased 30 - 44 mL/min/1.73m2 Severely decreased 15 - 29 mL/min/1.73m2 Kidney Failure < 15 mL/min/1.73m2 *Relative to young adult level Estimated glomerular filtration rate is determined by the 2020 CKD-EPI equation recommended by the National Kidney Foundation (A Unifying Approach to GFR Estimation: Recommendations of the NKF-ASK Task Force on Reassessing the Inclusion of Race in Diagnosing Kidney Disease, JASN 2020). The CKD-EPI equation should not be used for patients with unstable renal function and has not been validated in children and those over 70. Current interpretive data was last reviewed 2021. Blood 02/26/2025 10:3 6 PM CHEF 02/26/2025 10:56 PM CHEF Inessa Reddy MD LAB BLOOD ORDERABLES María l Result [facility] Department [place] [address] * (ABNORMAL) CBC without differential (02/26/2025 10:36 PM CHEF) Pathologist [facility] [place] WBC 7.86 3.80 - 9.90 K/cumm Hgb 9.4(L) 11.9 - 15.5 g/dL [facility] Hct 30.6(L) 35.6 - 45.5 % [facility] Plt 238 150 - 400 K/cumm [facility] MPV 10.5 9.1 - 12.3 fL [facility] RBC 3.49(L) 3.90 - 5.20 M/cumm [facility] MCV 87.7 81.3 - 96.4 fL [facility] MCH 26.9(L) 27.1 - 33.3 pg [facility] MCHC 30.7(L) 32.3 - 35.7 g/dL [facility] RDW CV 16.0(H) 11.1 - 14.9 % [facility] RDW SD 51.2(H) 35.7 - 48.1 fL [facility] NRBC abs 0.00 0.00 - 0.01 K/cumm [facility] Blood 02/26/2025 10:3 6 PM CHEF 02/26/2025 10:56 PM CHEF Mulu Mabry MD LAB BLOOD ORDERABLES Final Resu lt [facility] Department [place] [address] * (ABNORMAL) Comprehensive metabolic panel (02/26/2025 10:36 PM CHEF) Sodium 143 135 - 145 mmol/L Potassium, pl 3.9 3.3 - 4.9 mmol/L [facility] Chloride 111(H) 97 - 110 mmol/L [facility] CO2 27 22 - 32 mmol/L [facility] Anion gap 5 2 - 15 mmol/L [facility] BUN 15 6 - 25 mg/dL [facility] Creatinine 1.54(H) 0.60 - 1.10 mg/dL [facility] Glucose 93 70 - 199 mg/dL [facility] Comment: Interpretive Data Fasting glucose >/= 126 mg/dl is diagnostic for diabetes. Fasting is defined as no caloric intake for at least 8 hours. Fasting glucose between 100 mg/dl to 125 mg/dl is diagnostic of prediabetes. In a patient with classic symptoms of hyperglycemia or hyperglycemic crisis, a random glucose >/= 200 mg/dl is diagnostic for diabetes. In the absence of unequivocal hyperglycemia, results should be confirmed by repeat testing. The classification and Diagnosis of Diabetes Diabetes Care 202; 46: S19-S40. Current interpretive data was last revised 2022. Calcium 10.0 8.5 - 10.3 mg/dL [facility] Bilirubin, total <0.2 0.1 - 1.2 mg/dL [facility] Protein, pl 6.9 6.5 - 8.5 g/dL [facility] Albumin 3.0(L) 3.5 - 5.0 g/dL [facility] Alk phos 113 40 - 130 Units/L [facility] ALT 32 7 - 45 Units/L [facility] AST 22 10 - 45 Units/L [facility] Blood 02/26/2025 10:3 6 PM CHEF 02/26/2025 10:56 PM CHEF Inessa Reddy MD LAB BLOOD ORDERABLES María newell Result [facility] Department of Laboratories [place] [id number] * US Vein Duplex Upper Extremity Bilateral Complete (02/26/2025 3:31 PM CHEF) Anatomical Region Laterality Modality Vascular Bilateral Ultrasound 02/26/2025 2:33 PM CHEF Narrative 02/27/2025 9:32 AM CHEF [facility] - Department of Vascular Surgery, Vascular Laboratory [address] [place] [address] Upper Extremity Venous Ultrasound Report Patient Name: NINA MACIAS D : 1980 (44y 5m) Study Date: 02/26/2025 2:33:44 PM Sex: F Tech: Location: [id number] Ref Provider: INESSA REDDY Quality: Adequate Order Provider: INESSA REDDY PROCEDURES: Vascular Report: Venous Duplex imaging was performed bilaterally in the upper extremities. The internal jugular, subclavian and axillary veins were evaluated for patency, spontaneity and phasicity with Doppler, compression and augmentation maneuvers. The brachial, basilic and cephalic veins were also evaluated with compression maneuvers. INDICATIONS: Pulmonary embolism. Had picc on left, has cvc on right. - FINDINGS: Performing Documentation Improvement Specialist: Violeta Baca RVT. Right: Venous Doppler signals in the right upper extremity are within normal limits for spontaneity and phasicity; normal response to compression maneuvers, in all visualized vessels. Positive for superficial vein thrombus in the right upper extremity. Superficial veins involved include the cephalic vein at the elbow (chronic). Left: Venous Doppler signals in the left upper extremity are within normal limits for spontaneity and phasicity; normal response to compression maneuvers. No evidence of superficial vein thrombus in the left upper extremity. Comments: Unable to evaluate the right subclavian or axillary veins due to a line with overlying bandaging. CONCLUSIONS: 1. No evidence of acute deep vein thrombosis in the right upper extremity. 2. Superficial vein thrombus in the right upper extremity. 3. No evidence of acute deep vein thrombosis in the left upper extremity. 4. No evidence of superficial vein thrombus in the left upper extremity. HISTORY: Tenderness of chest wall, hypoxic respiratory failure, CKD, T2DM, PE. PREVIOUS STUDIES: Previous Rt study performed on 09/19/24 negative. DISCLAIMER: The study images and the final report will be retained in the patient chart by the Vascular Laboratory for the legally required time period. This chart constitutes the legal record of any testing performed. ATTESTATION: I have reviewed and interpreted the pertinent images and measurements of this study. I attest to the conclusions in the final report that is provided above. Electronically Signed By: Eyal Tovar MD FACS 02/27/2025 8:41:43 AM CHEF Procedure Note Eyal Tovar MD - 02/27/2025 [facility] - Department of Vascular Surgery,Vascular Laboratory [address] [place] [address] Upper Extremity Venous Ultrasound Report Patient Name: NINA MACIAS D : 1980 (44y 5m) Study Date: 02/26/2025 2:33:44 PM Sex: F Tech: Location: [id number] Ref Provider: INESSA REDDY Quality: Adequate Order Provider: INESSA REDDY PROCEDURES: Vascular Report: Venous Duplex imaging was performed bilaterally in the upper extremities.The internal jugular, subclavian and axillary veins were evaluated for patency,spontaneity and phasicity with Doppler, compression and augmentation maneuvers. Thebrachial, basilic and cephalic veins were also evaluated with compression maneuvers. INDICATIONS: Pulmonary embolism. Had picc on left, has cvc on right. - FINDINGS: Performing Documentation Improvement Specialist: Violeta Baca RVT. Right: Venous Doppler signals in the right upper extremity are within normallimits for spontaneity and phasicity; normal response to compression maneuvers, inall visualized vessels. Positive for superficial vein thrombus in the right upperextremity. Superficial veins involved include the cephalic vein at the elbow (chronic). Left: Venous Doppler signals in the left upper extremity are within normallimits for spontaneity and phasicity; normal response to compression maneuvers. Noevidence of superficial vein thrombus in the left upper extremity. Comments: Unable to evaluate the right subclavian or axillary veins due to a linewith overlying bandaging. CONCLUSIONS: 1. No evidence of acute deep vein thrombosis in the right upperextremity. 2. Superficial vein thrombus in the right upper extremity. 3. No evidence of acute deep vein thrombosis in the left upperextremity. 4. No evidence of superficial vein thrombus in the left upper extremity. HISTORY: Tenderness of chest wall, hypoxic respiratory failure, CKD, T2DM, PE. PREVIOUS STUDIES: Previous Rt study performed on 09/19/24 negative. DISCLAIMER: The study images and the final report will be retained in the patientchart by the Vascular Laboratory for the legally required time period. This chartconstitutes the legal record of any testing performed. ATTESTATION: I have reviewed and interpreted the pertinent images and measurements ofthis study. I attest to the conclusions in the final report that is provided above. Electronically Signed By: Eyal Tovar MD [facility] 02/27/2025 8:41:43 AM CHEF us Inessa Reddy MD IMG US PROCEDURES Final R esult * US Vein Duplex Lower Extremity Bilateral Complete (02/26/2025 3:31 PM CHEF) Anatomical Region Laterality Modality Vascular Bilateral Ultrasound 02/26/2025 2:41 PM CHEF Narrative 02/27/2025 9:32 AM CHEF [facility] - Department of Vascular Surgery, Vascular Laboratory [address] [place] [id number] Lower Extremity Venous Ultrasound Report Patient Name: NINA MACIASKolby : 1980 (44y 5m) Study Date: 02/26/2025 2:41:33 PM Sex: F Tech: Location: [id number] Ref Provider: INESSA REDDY Quality: Adequate Order Provider: INESSA REDDY PROCEDURES: Vascular Report: Venous Duplex imaging was performed bilaterally in the lower extremities. The common femoral, femoral, popliteal, posterior tibial, peroneal veins were evaluated for patency, spontaneity and phasicity with Doppler, compression and augmentation maneuvers. Great saphenous vein proximal at the junction was evaluated with compression maneuvers. INDICATIONS: Pulmonary embolism - FINDINGS: Performing Documentation Improvement Specialist: Violeta Baca RVT. Bilateral: Venous Doppler signals in the bilateral lower extremity are within normal limits for spontaneity and phasicity and respond normally to augmentation maneuvers. No evidence of deep vein thrombus by duplex, proximal to the calf. Comments: Technically difficult and limited study due to patient body habitus and depth of vessels. Unable to well visualize deep calf veins secondary to depth of vessels. CONCLUSIONS: 1. There is no evidence of acute deep vein thrombosis in the lower extremities bilaterally. Noninvasive venous studies cannot rule out isolated calf vein obstruction. HISTORY: Tenderness of chest wall, T2DM, CKD, PE. PREVIOUS STUDIES: Previous study performed on 11/03/24 negative B/L. DISCLAIMER: The study images and the final report will be retained in the patient chart by the Vascular Laboratory for the legally required time period. This chart constitutes the legal record of any testing performed. ATTESTATION: I have reviewed and interpreted the pertinent images and measurements of this study. I attest to the conclusions in the final report that is provided above. Electronically Signed By: Eyal Tovar MD FACS 02/27/2025 8:41:56 AM CHEF Procedure Note Eyal Tovar MD - 02/27/2025 [facility] - Department of Vascular Surgery,Vascular Laboratory [address] [place] [address] Lower Extremity Venous Ultrasound Report Patient Name: NINA MACIAS D : 1980 (44y 5m) Study Date: 02/26/2025 2:41:33 PM Sex: F Tech: Location: [id number] Ref Provider: INESSA REDDY Quality: Adequate Order Provider: INESSA REDDY PROCEDURES: Vascular Report: Venous Duplex imaging was performed bilaterally in the lower extremities.The common femoral, femoral, popliteal, posterior tibial, peroneal veins wereevaluated for patency, spontaneity and phasicity with Doppler, compression and augmentationmaneuvers. Great saphenous vein proximal at the junction was evaluated with compressionmaneuvers. INDICATIONS: Pulmonary embolism - FINDINGS: Performing Documentation Improvement Specialist: Violeta Baca RVT. Bilateral: Venous Doppler signals in the bilateral lower extremity are within normallimits for spontaneity and phasicity and respond normally to augmentation maneuvers.No evidence of deep vein thrombus by duplex, proximal to the calf. Comments: Technically difficult and limited study due to patient body habitus anddepth of vessels. Unable to well visualize deep calf veins secondary to depth of vessels. CONCLUSIONS: 1. There is no evidence of acute deep vein thrombosis in the lowerextremities bilaterally. Noninvasive venous studies cannot rule out isolated calf veinobstruction. HISTORY: Tenderness of chest wall, T2DM, CKD, PE. PREVIOUS STUDIES: Previous study performed on 11/03/24 negative B/L. DISCLAIMER: The study images and the final report will be retained in the patientchart by the Vascular Laboratory for the legally required time period. This chartconstitutes the legal record of any testing performed. ATTESTATION: I have reviewed and interpreted the pertinent images and measurements ofthis study. I attest to the conclusions in the final report that is provided above. Electronically Signed By: Eyal Tovar MD [facility] 02/27/2025 8:41:56 AM CHEF us Alexa Nasima Reddy [place] [facility] [place]ED[place] Final R esult * (ABNORMAL) eGFR (02/25/2025 9:01 PM CHEF) eGFR 47(L) >=60 mL/min/1. 73 m2 Comment: Interpretive Data Reference Interval Normal >/= 90 mL/min/1.73m2 Mildly decreased* 60 - 89 mL/min/1.73m2 Mildly to moderately decreased 45 - 59 mL/min/1.73m2 Moderately to severely decreased 30 - 44 mL/min/1.73m2 Severely decreased 15 - 29 mL/min/1.73m2 Kidney Failure < 15 mL/min/1.73m2 *Relative to young adult level Estimated glomerular filtration rate is determined by the 2020 CKD-EPI equation recommended by the National Kidney Foundation (A Unifying Approach to GFR Estimation: Recommendations of the NKF-ASK Task Force on Reassessing the Inclusion of Race in Diagnosing Kidney Disease, JASN 2020). The CKD-EPI equation should not be used for patients with unstable renal function and has not been validated in children and those over 70. Current interpretive data was last reviewed 2021. Blood 02/25/2025 9:01 PM CHEF 02/25/2025 9:19 PM CHEF us Inessa Reddy MD LAB BLOOD ORDERABLES María l Result Performing Organization Address City/[facility]/ZIP Co de Phone Number [facility] [place] [address] * (ABNORMAL) CBC without differential (02/25/2025 9:01 PM CHEF) Pathologist [facility] [place] WBC 5.99 3.80 - 9.90 K/cumm Hgb 9.2(L) 11.9 - 15.5 g/dL [facility] Hct 29.6(L) 35.6 - 45.5 % [facility] Plt 236 150 - 400 K/cumm [facility] MPV 10.7 9.1 - 12.3 fL [facility] RBC 3.42(L) 3.90 - 5.20 M/cumm [facility] MCV 86.5 81.3 - 96.4 fL [facility] MCH 26.9(L) 27.1 - 33.3 pg [facility] MCHC 31.1(L) 32.3 - 35.7 g/dL [facility] RDW CV 15.8(H) 11.1 - 14.9 % [facility] RDW SD 50.1(H) 35.7 - 48.1 fL [facility] NRBC abs 0.00 0.00 - 0.01 K/cumm [facility] Blood 02/25/2025 9:01 PM CHEF 02/25/2025 9:20 PM CHEF us Mulu Mabry MD LAB BLOOD ORDERABLES Final Resu lt Performing Organization Address City/[facility]/ZIP Co de Phone Number [facility] [place] [address] * (ABNORMAL) Comprehensive metabolic panel (02/25/2025 9:01 PM CHEF) Sodium 141 135 - 145 mmol/L Potassium, pl 3.7 3.3 - 4.9 mmol/L [facility] Chloride 109 97 - 110 mmol/L [facility] CO2 23 22 - 32 mmol/L [facility] Anion gap 9 2 - 15 mmol/L [facility] BUN 14 6 - 25 mg/dL [facility] Creatinine 1.41(H) 0.60 - 1.10 mg/dL [facility] Glucose 124 70 - 199 mg/dL [facility] Comment: Interpretive Data Fasting glucose >/= 126 mg/dl is diagnostic for diabetes. Fasting is defined as no caloric intake for at least 8 hours. Fasting glucose between 100 mg/dl to 125 mg/dl is diagnostic of prediabetes. In a patient with classic symptoms of hyperglycemia or hyperglycemic crisis, a random glucose >/= 200 mg/dl is diagnostic for diabetes. In the absence of unequivocal hyperglycemia, results should be confirmed by repeat testing. The classification and Diagnosis of Diabetes Diabetes Care 2021; 46: S19-S40. Current interpretive data was last revised 2022. Calcium 10.1 8.5 - 10.3 mg/dL [facility] Bilirubin, total <0.2 0.1 - 1.2 mg/dL [facility] Comment:Reviewed Protein, pl 7.0 6.5 - 8.5 g/dL [facility] Albumin 3.2(L) 3.5 - 5.0 g/dL [facility] Alk phos 111 40 - 130 Units/L [facility] ALT 40 7 - 45 Units/L [facility] AST 30 10 - 45 Units/L [facility] Blood 02/25/2025 9:01 PM CHEF 02/25/2025 9:19 PM CHEF us Inessa Reddy MD LAB BLOOD ORDERABLES María newell Result [facility] [place] [address] * CT Cystogram WO Contrast (02/25/2025 2:25 PM CHEF) Anatomical Region Laterality Modality Pelvis N/A Computed Tomogra phy 02/25/2025 3:56 PM CHEF Impressions 02/25/2025 5:42 PM CHEF 1. Persistent intraperitoneal bladder leak at the posterior superior aspect of the urinary bladder dome with tethering and stranding extending anteriorly toward a loop of colon. Contrast present in this loop of colon on precontrast images renders evaluation difficult with respect to true fistulization to the bowel. 2. Urinary bladder wall thickening and surrounding fat stranding compatible with cystitis and partially imaged right lower pole striated nephrogram suggesting possible pyelonephritis. Dictated by: José Hernandez M.D. The radiology attending physician has personally reviewed this study, and had reviewed and/or edited this written report and agrees with it. Electronically signed by: Elyse Jalloh MD Narrative 02/25/2025 5:42 PM CHEF EXAMINATION: Computed tomography of the pelvis without intravenous contrast HISTORY: Diverticulitis of the sigmoid colon status post sigmoid resection and takedown of colovesical fistula on 01/20/2025. Persistent bladder leak identified on CT from 01/27/2025. TECHNIQUE: The urinary bladder was allowed to fill by gravity with dilute Opti-Ray 350 contrast in saline through the previously placed bladder catheter to full distension. Transaxial computed tomographic images of the pelvis were obtained without intravenous contrast according to the cystography protocol. The bladder was then drained of contrast by gravity. COMPARISON: 01/27/2025. FINDINGS: Again noted are postsurgical changes of sigmoid colon resection. Persistent extravasation of contrast at the posterior superior aspect of the urinary bladder, into the peritoneal cavity (series 12 image 139). Of note, there is contrast within the colon on precontrast images. There is tethering and stranding from the defect in the bladder anteriorly toward a loop of colon. A bladder diverticulum is noted at the left posterior aspect of the bladder. Gas within the urinary bladder is related to Mcclelland catheter manipulation. The bladder wall is severely thickened. Striated nephrogram in the partially imaged right lower renal pole. Diverticulosis without diverticulitis. Normal appendix. Normal uterus. No adnexal mass. No pelvic lymphadenopathy. No free pelvic fluid. Postoperative stranding along the anterior abdominal wall without discrete or drainable fluid collection along the incision or within the imaged peritoneal cavity. No suspicious osseous lesion. Procedure Note Elyse Jalloh MD - 02/25/2025 EXAMINATION: Computed tomography of the pelvis without intravenous contrast HISTORY: Diverticulitis of the sigmoid colon status post sigmoid resection and takedown of colovesical fistula on 01/20/2025. Persistent bladder leak identified on CT from 01/27/2025. TECHNIQUE: The urinary bladder was allowed to fill by gravity with dilute Opti-Ray 350 contrast in saline through the previously placed bladder catheter to full distension. Transaxial computed tomographic images of the pelvis were obtained without intravenous contrast according to the cystography protocol. The bladder was then drained of contrast by gravity. COMPARISON: 01/27/2025. FINDINGS: Again noted are postsurgical changes of sigmoid colon resection. Persistent extravasation of contrast at the posterior superior aspect of the urinary bladder, into the peritoneal cavity (series 12 image 139). Of note, there is contrast within the colon on precontrast images. There is tethering and stranding from the defect in the bladder anteriorly toward a loop of colon. A bladder diverticulum is noted at the left posterior aspect of the bladder. Gas within the urinary bladder is related to Mcclelland catheter manipulation. The bladder wall is severely thickened. Striated nephrogram in the partially imaged right lower renal pole. Diverticulosis without diverticulitis. Normal appendix. Normal uterus. No adnexal mass. No pelvic lymphadenopathy. No free pelvic fluid. Postoperative stranding along the anterior abdominal wall without discrete or drainable fluid collection along the incision or within the imaged peritoneal cavity. No suspicious osseous lesion. IMPRESSION: 1. Persistent intraperitoneal bladder leak at the posterior superior aspect of the urinary bladder dome with tethering and stranding extending anteriorly toward a loop of colon. Contrast present in this loop of colon on precontrast images renders evaluation difficult with respect to true fistulization to the bowel. 2. Urinary bladder wall thickening and surrounding fat stranding compatible with cystitis and partially imaged right lower pole striated nephrogram suggesting possible pyelonephritis. Dictated by: José Hernandez M.D. The radiology attending physician has personally reviewed this study, and had reviewed and/or edited this written report and agrees with it. Electronically signed by: Elyse Jalloh MD Mulu Mabry MD IM CT PROCEDURES Final Result * TRANSTHORACIC ECHO (TTE) COMPLETE W DOPPLER/CF W CONTRAST (02/25/2025 8:55 AM CHEF) EF Mod BP 66 % CONS SCIMAGE Anatomical Region Laterality Modality Ultrasound 02/25/2025 8:20 AM CHEF Narrative 02/25/2025 9:10 AM CHEF [facility] [place] [address] Transthoracic Echocardiographic Report Patient Name: NINA MACIAS D : 1980 (44y 5m) Sex: F Study Date: 02/25/2025 08:20:09 AM Ht(Inch): 63 Wt(Lb): 242.07 BSA: 2.1 Documentation Improvement Specialist: Jovanna Nguyễn, ACS, [facility], [facility] Location: [id number] Order Provider: MULU MABRY Heart Rate: 74 BMI: 42.88 BP: 99 / 62 Ref Provider: MULU MABRY PROCEDURES: Echocardiographic Report: Transthoracic complete echo with strain imaging and contrast, 2D, spectral and tissue Doppler, color flow Doppler, M-mode. Contrast: Contrast Enhancement was Employed: After initial imaging due to sub- optimal quality related to co-morbidity defined by patient's body habitus and due to suboptimal image quality with inadequate visualization of at least 2 of 16 LV wall segments in any view after initial imaging. Perflutren contrast was administered using the volume necessary to obtain adequate images. 0.4 ml Optison Administered, (2.6 ml wasted). Technically difficult study due to: Body habitus. Limited visualization of some cardiac structures precludes the ability to obtain complete measurements - INDICATIONS: Pulmonary embolism. CONCLUSIONS: 1. Normal left ventricular size based on volume index. Concentric LV remodeling. Normal left ventricular systolic function. The Ejection Fraction (Hunter's) is measured at 66 %. 2. Normal right ventricular size. Normal right ventricular systolic function. 3. There is no significant valvular heart disease. 4. Unable to determine PASP due to inadequate TR jet. COMPARISONS: Compared with prior study, 12/26/2024 the following changes are now seen: TR is no longer seen on current study. ATTESTATION: I have personally reviewed and interpreted this study without fellow or resident. DISCLAIMER: The study images and the final report will be retained in the patient chart by the Echo Laboratory for the legally required time period. This chart constitutes the legal record of any testing performed. FINDINGS: Left Ventricle: Normal left ventricular size based on volume index. Concentric LV remodeling. Normal left ventricular systolic function. The Ejection Fraction (Hunter's) is measured at 66 %. Unable to assess global longitudinal strain due to image quality. Right Ventricle: Normal right ventricular size. Normal right ventricular systolic function. Left Atrium: The left atrium is normal in size. Right Atrium: The right atrium is normal in size. Mitral Valve: Normal mitral valve structure. No mitral regurgitation. No stenosis present. Aortic Valve: Normal trileaflet aortic valve. No aortic regurgitation. No aortic valve stenosis. The mean transaortic gradient is 4 mmHg. The aortic valve area by the continuity equation (using VTI) is 2.4 cm2. Aortic valve dimensionless index is 0.77. Tricuspid Valve: Normal tricuspid valve structure. No tricuspid regurgitation. No tricuspid valve stenosis. Pulmonic Valve: Normal pulmonic valve structure. No pulmonic regurgitation. No pulmonic valve stenosis present. Pericardium: Normal pericardium without pericardial effusion. Aorta: Normal aortic root size at sinuses of Valsalva. The ascending aorta is normal in size when indexed. IVC: IVC is normal in size. The IVC was <2.1 cm and collapsibility <50%. (est. RA pressure 6-10 mmHg). PASP: Unable to determine PASP due to inadequate TR jet. Rhythm: Normal Sinus rhythm was seen during the study. MEASUREMENTS: 2D/MM Value Range Doppler Value Range LVIDd 2D 4.8 cm [ 3.8 - 5.2 ] AV Peak Alvaro 1.4 m/s [ 1.0 - 1.7 ] LVIDs 2D 2.9 cm [ 2.2 - 3.5 ] AV Peak PG 8 mmHg IVSd 2D 1.1 cm [ 0.6 - 0.9 ] AV Mean PG 4 mmHg LVPWd 2D 1.1 cm [ 0.6 - 0.9 ] AV VTI 26 cm LV Thickness Ratio 1.0 LVOT Peak Alvaro 1.1 m/s [ 0.7 - 1.1 ] LV FS 2D 39.29 % [ 27.00 - 45.00 ] LVOT Peak PG 5 mmHg LV Mass 2D 197.50 g LVOT Mean PG 3 mmHg LV Mass Index 2D 94.17 g/m2 LVOT VTI 20 cm RWT 0.46 LVOT Diam 2.0 cm EDV Mod BP 87 ml [ 46 - 106 ] OMAR VTI 2.4 cm2 LV EDV Index 41 ml/m2 LVOT/AV VTI 0.77 - Dimensionless index (DVI) ESV Mod BP 30 ml [ 14 - 42 ] MV E Peak Alvaro 0.75 m/s [ 0.60 - 1.30 ] EF Mod BP 66 % [ 54 - 74 ] MV A Peak Alvaro 0.64 m/s [ 1.00 - 1.20 ] LA Length 4C 5.5 cm MV E/A 1.2 ratio [ 0.8 - 1.5 ] LA Length 2C 5.4 cm MV Decel [place] 293 LA Volume BP 55 ml MV Decel Time 257 msec [ 104 - 258 ] LA Volume Index 26 ml/m2 [ 16 - 34 ] Med E` Alvaro 8.1 cm/sec [ 8.0 - 25.0 ] RV Base Dimen 2D 4.0 cm [ 2.5 - 4.2 ] Lat E` Alvaro 10.3 cm/sec [ 10.0 - 25.0 ] RV Mid Dimen 2D 3.6 cm Average E/E` 8 RV ED Area 14 cm2 [ 8 - 20 ] RV S` 12.0 cm/sec RV ES Area 7 cm2 [ 3 - 11 ] PV Peak Alvaro 1.0 m/s [ 0.4 - 0.8 ] RV FAC 49 % [ 35 - 63 ] PV Peak PG 4 mmHg TAPSE 2.4 cm [ 1.7 - 5.0 ] RA Volume 33 ml RA Volume Index 16 ml/m2 IVC Diam 1.5 cm IVC Collapse 36.7 % AoR Diam 2D 2.9 cm [ 2.7 - 3.3 ] Ao Root Index 1.4 cm/m2 [ 1.0 - 2.0 ] Asc Ao Diam 2D 2.7 cm Asc Ao Index 1.3 cm/m2 Electronically Signed By: Adán Penaloza MD 02/25/2025 9:09:58 AM CHEF Procedure Note Adán Penaloza MD - 02/25/2025 [facility] [place] [address] Transthoracic Echocardiographic Report Patient Name: NINA MACIAS D : 1980 (44y 5m) Sex: F Study Date: 02/25/2025 08:20:09 AM Ht(Inch): 63 Wt(Lb): 242.07 BSA: 2.1 Documentation Improvement Specialist: SANGEETHA Lambert, RD, [facility] Location: [id number] OrderProvider: MULU MABRY Heart Rate: 74 BMI: 42.88 BP: 99 / 62 Ref Provider: MULU MABRY PROCEDURES: Echocardiographic Report: Transthoracic complete echo with strain imagingand contrast, 2D, spectral and tissue Doppler, color flow Doppler, M-mode. Contrast: Contrast Enhancement was Employed: After initial imaging due tosub- optimal quality related to co-morbidity defined by patient's body habitus and dueto suboptimal image quality with inadequate visualization of at least 2 of 16 LV wallsegments in any view after initial imaging. Perflutren contrast was administered using thevolume necessary to obtain adequate images. 0.4 ml Optison Administered, (2.6 mlwasted). Technically difficult study due to: Body habitus. Limited visualization ofsome cardiac structures precludes the ability to obtain complete measurements - INDICATIONS: Pulmonary embolism. CONCLUSIONS: 1. Normal left ventricular size based on volume index. Concentric LVremodeling. Normal left ventricular systolic function. The Ejection Fraction (Hunter's) ismeasured at 66 %. 2. Normal right ventricular size. Normal right ventricular systolicfunction. 3. There is no significant valvular heart disease. 4. Unable to determine PASP due to inadequate TR jet. COMPARISONS: Compared with prior study, 12/26/2024 the following changes are nowseen: TR is no longer seen on current study. ATTESTATION: I have personally reviewed and interpreted this study without fellow orresident. DISCLAIMER: The study images and the final report will be retained in the patientchart by the Echo Laboratory for the legally required time period. This chart constitutesthe legal record of any testing performed. FINDINGS: Left Ventricle: Normal left ventricular size based on volume index.Concentric LV remodeling. Normal left ventricular systolic function. The EjectionFraction (Hunter's) is measured at 66 %. Unable to assess global longitudinal strain due toimage quality. Right Ventricle: Normal right ventricular size. Normal right ventricularsystolic function. Left Atrium: The left atrium is normal in size. Right Atrium: The right atrium is normal in size. Mitral Valve: Normal mitral valve structure. No mitral regurgitation. Nostenosis present. Aortic Valve: Normal trileaflet aortic valve. No aortic regurgitation. Noaortic valve stenosis. The mean transaortic gradient is 4 mmHg. The aortic valve areaby the continuity equation (using VTI) is 2.4 cm2. Aortic valve dimensionlessindex is 0.77. Tricuspid Valve: Normal tricuspid valve structure. No tricuspidregurgitation. No tricuspid valve stenosis. Pulmonic Valve: Normal pulmonic valve structure. No pulmonicregurgitation. No pulmonic valve stenosis present. Pericardium: Normal pericardium without pericardial effusion. Aorta: Normal aortic root size at sinuses of Valsalva. The ascending aortais normal in size when indexed. IVC: IVC is normal in size. The IVC was <2.1 cm and collapsibility <50%.(est. RA pressure 6-10 mmHg). PASP: Unable to determine PASP due to inadequate TR jet. Rhythm: Normal Sinus rhythm was seen during the study. MEASUREMENTS: 2D/MM Value Range DopplerValue Range LVIDd 2D 4.8 cm [ 3.8 - 5.2 ] AV Peak Vel1.4 m/s [ 1.0 - 1.7 ] LVIDs 2D 2.9 cm [ 2.2 - 3.5 ] AV Peak PG8 mmHg IVSd 2D 1.1 cm [ 0.6 - 0.9 ] AV Mean PG4 mmHg LVPWd 2D 1.1 cm [ 0.6 - 0.9 ] AV VTI26 cm LV Thickness Ratio 1.0 LVOT Peak Vel1.1 m/s [ 0.7 - 1.1 ] LV FS 2D 39.29 % [ 27.00 - 45.00 ] LVOT Peak PG5 mmHg LV Mass 2D 197.50 g LVOT Mean PG3 mmHg LV Mass Index 2D 94.17 g/m2 LVOT VTI20 cm RWT 0.46 LVOT Diam2.0 cm EDV Mod BP 87 ml [ 46 - 106 ] OMAR VTI2.4 cm2 LV EDV Index 41 ml/m2 LVOT/AV VTI0.77 - Dimensionless index (DVI) ESV Mod BP 30 ml [ 14 - 42 ] MV E Peak Vel0.75 m/s [ 0.60 - 1.30 ] EF Mod BP 66 % [ 54 - 74 ] MV A Peak Vel0.64 m/s [ 1.00 - 1.20 ] LA Length 4C 5.5 cm MV E/A1.2 ratio [ 0.8 - 1.5 ] LA Length 2C 5.4 cm MV Decel [id number] LA Volume BP 55 ml MV Decel Azvy320 msec [ 104 - 258 ] LA Volume Index 26 ml/m2 [ 16 - 34 ] Med E` Vel8.1 cm/sec [ 8.0 - 25.0 ] RV Base Dimen 2D 4.0 cm [ 2.5 - 4.2 ] Lat E` Vel10.3 cm/sec [ 10.0 - 25.0 ] RV Mid Dimen 2D 3.6 cm Average E/E`8 RV ED Area 14 cm2 [ 8 - 20 ] RV S`12.0 cm/sec RV ES Area 7 cm2 [ 3 - 11 ] PV Peak Vel1.0 m/s [ 0.4 - 0.8 ] RV FAC 49 % [ 35 - 63 ] PV Peak PG4 mmHg TAPSE 2.4 cm [ 1.7 - 5.0 ] RA Cxclvf16 ml RA Volume Index16 ml/m2 IVC Diam1.5 cm IVC Collapse 36.7 % AoR Diam 2D 2.9 cm [ 2.7 - 3.3 ] Ao Root Index 1.4 cm/m2 [ 1.0 - 2.0 ] Asc Ao Diam 2D2.7 cm Asc Ao Index1.3 cm/m2 Electronically Signed By: Adán Penaloza MD 02/25/2025 9:09:58 AM CHEF Mulu Mabry MD CV ECHO PROCEDURES Final Result * (ABNORMAL) eGFR (02/24/2025 10:14 PM CHEF) eGFR 46(L) >=60 mL/min/1. 73 m2 Comment: Interpretive Data Reference Interval Normal >/= 90 mL/min/1.73m2 Mildly decreased* 60 - 89 mL/min/1.73m2 Mildly to moderately decreased 45 - 59 mL/min/1.73m2 Moderately to severely decreased 30 - 44 mL/min/1.73m2 Severely decreased 15 - 29 mL/min/1.73m2 Kidney Failure < 15 mL/min/1.73m2 *Relative to young adult level Estimated glomerular filtration rate is determined by the 2020 CKD-EPI equation recommended by the National Kidney Foundation (A Unifying Approach to GFR Estimation: Recommendations of the NKF-ASK Task Force on Reassessing the Inclusion of Race in Diagnosing Kidney Disease, JASN 2020). The CKD-EPI equation should not be used for patients with unstable renal function and has not been validated in children and those over 70. Current interpretive data was last reviewed 2021. Blood 02/24/2025 10:1 4 PM CHEF 02/24/2025 11:27 PM CHEF us Inessa Reddy MD LAB BLOOD ORDERABLES María l Result Performing Organization Address City/[facility]/ZIP Co de Phone Number [facility] Department [place] [address] * (ABNORMAL) CBC without differential (02/24/2025 10:14 PM CHEF) WBC 6.87 3.80 - 9.90 K/cumm Hgb 9.2(L) 11.9 - 15.5 g/dL [facility] Hct 30.6(L) 35.6 - 45.5 % [facility] Plt 238 150 - 400 K/cumm [facility] MPV 11.0 9.1 - 12.3 fL [facility] RBC 3.49(L) 3.90 - 5.20 M/cumm [facility] MCV 87.7 81.3 - 96.4 fL [facility] MCH 26.4(L) 27.1 - 33.3 pg [facility] MCHC 30.1(L) 32.3 - 35.7 g/dL [facility] RDW CV 15.8(H) 11.1 - 14.9 % [facility] RDW SD 49.6(H) 35.7 - 48.1 fL [facility] NRBC abs 0.00 0.00 - 0.01 K/cumm [facility] Blood 02/24/2025 10:1 4 PM CHEF 02/24/2025 11:27 PM CHEF us Mulu Mabry MD LAB BLOOD ORDERABLES Final Resu lt Performing Organization Address City/[facility]/ZIP Co de Phone Number [facility] Department [place] [address] * (ABNORMAL) Comprehensive metabolic panel (02/24/2025 10:14 PM CHEF) Sodium 139 135 - 145 mmol/L Potassium, pl 3.3 3.3 - 4.9 mmol/L [facility] Chloride 106 97 - 110 mmol/L [facility] CO2 24 22 - 32 mmol/L [facility] Anion gap 9 2 - 15 mmol/L [facility] BUN 15 6 - 25 mg/dL [facility] Creatinine 1.44(H) 0.60 - 1.10 mg/dL [facility] Glucose 98 70 - 199 mg/dL [facility] Comment: Interpretive Data Fasting glucose >/= 126 mg/dl is diagnostic for diabetes. Fasting is defined as no caloric intake for at least 8 hours. Fasting glucose between 100 mg/dl to 125 mg/dl is diagnostic of prediabetes. In a patient with classic symptoms of hyperglycemia or hyperglycemic crisis, a random glucose >/= 200 mg/dl is diagnostic for diabetes. In the absence of unequivocal hyperglycemia, results should be confirmed by repeat testing. The classification and Diagnosis of Diabetes Diabetes Care 2021; 46: S19-S40. Current interpretive data was last revised 2022. Calcium 10.6(H) 8.5 - 10.3 mg/dL [facility] Bilirubin, total 0.2 0.1 - 1.2 mg/dL [facility] Protein, pl 7.1 6.5 - 8.5 g/dL [facility] Albumin 3.1(L) 3.5 - 5.0 g/dL [facility] Alk phos 113 40 - 130 Units/L [facility] ALT 45 7 - 45 Units/L [facility] AST 34 10 - 45 Units/L [facility] Blood 02/24/2025 10:1 4 PM CHEF 02/24/2025 11:27 PM CHEF us Inessa Reddy MD LAB BLOOD ORDERABLES María reece Result [facility] [place] [address] * aPTT (02/24/2025 12:05 PM CHEF) aPTT 27 26 - 38 sec Comment: Interpretive Data Heparin therapeutic range: 66.0 - 100.0 seconds. Range based on correlation with therapeutic heparin activity range of 0.3 - 0.7 Units/mL. Blood 02/24/2025 12:0 5 PM CHEF 02/24/2025 12:23 PM CHEF Narrative [facility] - 02/24/2025 12:32 PM CHEF Baseline prior to enoxaparin initiation. Mulu Mabry MD LAB BLOOD ORDERABLES Final Resu lt Performing Organization Address [facility] [place] [address] * Protime-INR (02/24/2025 12:05 PM CHEF) Pathologist [facility] [place] PT 13.0 10.2 - 13.5 sec INR 1.15 0.90 - 1.20 [facility] Comment: Interpretive data Oral anticoagulant therapeutic ranges: Venous thromboembolism prophylaxis or treatment: 2.0-3.0 CARDIOLOGY Standard range: 2.0-3.0 High-intensity range: 2.5-3.5 Refer to indication-specific guidelines for appropriate target ranges for prosthetic heart valve replacement. Current interpretive data was last revised on 2019. Blood 02/24/2025 12:0 5 PM CHEF 02/24/2025 12:23 PM CHEF Narrative [facility] - 02/24/2025 12:32 PM CHEF Baseline prior to enoxaparin initiation. Mulu Mabry MD LAB BLOOD ORDERABLES Final Resu lt Performing Organization Address [facility] [place] [address] * (ABNORMAL) Calcium, ionized (02/24/2025 10:44 AM CHEF) Pathologist [facility] [place] Calcium, Ionized 5.82(H) 4.50 - 5.10 mg/dL Blood 02/24/2025 10:4 4 AM CHEF 02/24/2025 10:48 AM CHEF Mulu Mabry MD LAB BLOOD ORDERABLES Final Resu lt Performing Organization Address [facility] Co de Phone Number [facility] [place] [address] * Conditional use lavender-top tube on ice (02/24/2025 10:32 AM CHEF) [facility] Conditional lavender-top tube Complete Blood 02/24/2025 10:3 2 AM CHEF 02/24/2025 10:59 AM CHEF Result [facility] Mulu Mabry MD LAB BLOOD ORDERABLES Final Resu lt Performing Organization Address [facility] de Phone Number [facility] [place] [address] * (ABNORMAL) PTH with reflex to PTHrP (hypercalcemia reflex) (02/24/2025 10:32 AM CHEF) [facility] PTH 12(L) 18 - 59 pg/mL Blood 02/24/2025 10:3 2 AM CHEF 02/24/2025 10:52 AM CHEF Result [facility] Mulu Mabry MD LAB BLOOD ORDERABLES Final Resu lt Performing Organization Address [facility] [place] [address] * (ABNORMAL) eGFR (02/24/2025 10:32 AM CHEF) [facility] eGFR 44(L) >=60 mL/min/1. 73 m2 Comment: Interpretive Data Reference Interval Normal >/= 90 mL/min/1.73m2 Mildly decreased* 60 - 89 mL/min/1.73m2 Mildly to moderately decreased 45 - 59 mL/min/1.73m2 Moderately to severely decreased 30 - 44 mL/min/1.73m2 Severely decreased 15 - 29 mL/min/1.73m2 Kidney Failure < 15 mL/min/1.73m2 *Relative to young adult level Estimated glomerular filtration rate is determined by the 2020 CKD-EPI equation recommended by the National Kidney Foundation (A Unifying Approach to GFR Estimation: Recommendations of the NKF-ASK Task Force on Reassessing the Inclusion of Race in Diagnosing Kidney Disease, JASN 2020). The CKD-EPI equation should not be used for patients with unstable renal function and has not been validated in children and those over 70. Current interpretive data was last reviewed 2021. Blood 02/24/2025 10:3 2 AM CHEF 02/24/2025 10:48 AM CHEF Mulu Mabry MD LAB BLOOD ORDERABLES Final Resu lt Performing Organization Address [facility] [facility] Co de Phone Number [facility] [place] [address] * Thyroid Function [place] (02/24/2025 10:32 AM CHEF) TSH 3.24 0.30 - 4.20 mcIUnit/mL Blood 02/24/2025 10:3 2 AM CHEF 02/24/2025 10:48 AM CHEF Mulu Mabry MD LAB BLOOD ORDERABLES Final Resu lt Performing Organization Address City/[facility] Co de Phone Number [facility] [place] [address] * PTH-related peptide (02/24/2025 10:32 AM CHEF) PTH Related Protein 1.1 < or = 4.2 pmol/L [facility] Comment: ADDITIONAL INFORMATION This test was developed and its performance characteristics determined by [facility] in a manner consistent with CLIA requirements. This test has not been cleared or approved by the U.S. Food and Drug Administration. Test Performed by: [facility] [address] [place] [address] Wood Type Finisher: Gail Davis Ph.D.; CLIA# [id number] Blood 02/24/2025 10:3 2 AM CHEF 02/24/2025 6:38 PM CHEF Narrative [facility] - 03/03/2025 1:04 PM CHEF sent 1.5 mls EDTA plasma, frozen( a redraw at 1814) This test was reflexed from a PTH Intact result. Mulu Mabry MD LAB BLOOD ORDERABLES Final Resu lt Performing Organization Address [facility] de Phone Number [facility] [place] [address] [facility] * (ABNORMAL) Vitamin D 25 hydroxy (02/24/2025 10:32 AM CHEF) Vitamin D 25-OH 25(L) 30 - 80 ng/mL Blood 02/24/2025 10:3 2 AM CHEF 02/24/2025 10:48 AM CHEF Mulu Mabry MD LAB BLOOD ORDERABLES Final Resu lt Performing Organization Address [facility] de Phone Number [facility] [place] [address] * Magnesium (02/24/2025 10:32 AM CHEF) Magnesium 2.0 1.4 - 2.5 mg/dL Blood 02/24/2025 10:3 2 AM CHEF 02/24/2025 10:48 AM CHEF Mulu Mabry MD LAB BLOOD ORDERABLES Final Resu lt Performing Organization Address [facility]/ZIP Co de Phone Number [facility] [place] [address] * (ABNORMAL) Comprehensive metabolic panel (02/24/2025 10:32 AM CHEF) Sodium 136 135 - 145 mmol/L Potassium, pl 3.0(L) 3.3 - 4.9 mmol/L [facility] Chloride 103 97 - 110 mmol/L [facility] CO2 24 22 - 32 mmol/L [facility] Anion gap 9 2 - 15 mmol/L [facility] BUN 18 6 - 25 mg/dL [facility] Creatinine 1.49(H) 0.60 - 1.10 mg/dL [facility] Glucose 108 70 - 199 mg/dL [facility] Comment: Interpretive Data Fasting glucose >/= 126 mg/dl is diagnostic for diabetes. Fasting is defined as no caloric intake for at least 8 hours. Fasting glucose between 100 mg/dl to 125 mg/dl is diagnostic of prediabetes. In a patient with classic symptoms of hyperglycemia or hyperglycemic crisis, a random glucose >/= 200 mg/dl is diagnostic for diabetes. In the absence of unequivocal hyperglycemia, results should be confirmed by repeat testing. The classification and Diagnosis of Diabetes Diabetes Care 202; 46: S19-S40. Current interpretive data was last revised 2022. Calcium 11.0(H) 8.5 - 10.3 mg/dL [facility] Bilirubin, total 0.4 0.1 - 1.2 mg/dL [facility] Protein, pl 7.4 6.5 - 8.5 g/dL [facility] Albumin 3.3(L) 3.5 - 5.0 g/dL [facility] Alk phos 113 40 - 130 Units/L [facility] ALT 42 7 - 45 Units/L [facility] AST 36 10 - 45 Units/L [facility] Blood 02/24/2025 10:3 2 AM CHEF 02/24/2025 10:48 AM CHEF us Mulu Mabry MD LAB BLOOD ORDERABLES Final Resu lt [facility] [place] [address] * CT Chest PE (CTA) W Contrast (02/24/2025 9:52 AM CHEF) Anatomical Region Laterality Modality Body N/A Computed Tomogra phy 02/24/2025 10:3 3 AM CHEF Impressions 02/24/2025 12:00 PM CHEF Acute pulmonary embolism arising with the right main pulmonary artery and extending into the right upper, middle, and lower lobar and segmental pulmonary arteries. No evidence of right heart strain. Dictated by: Shola Iqbal M.D. The radiology attending physician has personally reviewed this study, and had reviewed and/or edited this written report and agrees with it. Electronically signed by: Xu Ferrer M.D. Narrative 02/24/2025 12:00 PM CHEF EXAMINATION: CT CHEST PE (CTA) W CONTRAST HISTORY: 44-year-old female with history of recurrent diverticulitis. Concern for pulmonary embolism on same-day abdomen pelvis CT. TECHNIQUE: Computed tomographic images were acquired using a chest angiographic protocol optimized for pulmonary embolism. Contrast enhanced transaxial images were obtained following the intravenous administration of 93 ml of nonionic contrast. Multiplanar reformatted images and three-dimensional images were obtained on the 3-D workstation and sent to the PACS archival system. COMPARISON: 02/24/2025 and 12/14/2024 CT. FINDINGS: The central airway is clear. There is mild bibasilar atelectasis. No suspicious pulmonary nodule. No pleural effusion or pneumothorax. No axillary, supraclavicular, hilar, or mediastinal lymphadenopathy. The heart size is within normal limits without pericardial effusion. The thoracic aorta is of normal caliber. The esophagus is nondistended. There is an acute pulmonary embolism arising within the right main pulmonary artery and extending into the right upper, middle, and lower lobar and segmental pulmonary arteries. No suspicious lytic or blastic osseous lesion. Findings below the diaphragm are better evaluated on same-day dedicated abdomen and pelvis CT. CT imaging evidence of right heart strain: No Procedure Note Xu Ferrer MD - 02/24/2025 EXAMINATION: CT CHEST PE (CTA) W CONTRAST HISTORY: 44-year-old female with history of recurrent diverticulitis. Concern for pulmonary embolism on same-day abdomen pelvis CT. TECHNIQUE: Computed tomographic images were acquired using a chest angiographic protocol optimized for pulmonary embolism. Contrast enhanced transaxial images were obtained following the intravenous administration of 93 ml of nonionic contrast. Multiplanar reformatted images and three-dimensional images were obtained on the 3-D workstation and sent to the PACS archival system. COMPARISON: 02/24/2025 and 12/14/2024 CT. FINDINGS: The central airway is clear. There is mild bibasilar atelectasis. No suspicious pulmonary nodule. No pleural effusion or pneumothorax. No axillary, supraclavicular, hilar, or mediastinal lymphadenopathy. The heart size is within normal limits without pericardial effusion. The thoracic aorta is of normal caliber. The esophagus is nondistended. There is an acute pulmonary embolism arising within the right main pulmonary artery and extending into the right upper, middle, and lower lobar and segmental pulmonary arteries. No suspicious lytic or blastic osseous lesion. Findings below the diaphragm are better evaluated on same-day dedicated abdomen and pelvis CT. CT imaging evidence of right heart strain: No IMPRESSION: Acute pulmonary embolism arising with the right main pulmonary artery and extending into the right upper, middle, and lower lobar and segmental pulmonary arteries. No evidence of right heart strain. Dictated by: Shola Iqbal M.D. The radiology attending physician has personally reviewed this study, and had reviewed and/or edited this written report and agrees with it. Electronically signed by: Xu Ferrer M.D. us Maxine Sousa MD IMG CT PROCEDURES María l Result * POCT glucose (02/24/2025 1:53 AM CHEF) Glucose, POC 100 70 - 199 mg/dL Blood 02/24/2025 1:53 AM CHEF 02/24/2025 1:53 AM CHEF us Bernarda Navarro MD LAB POCT ORDERABLES - DEVICE Final Result [facility] [place] [address] * Sepsis Lactate w/ Reflex (02/24/2025 1:51 AM CHEF) Sepsis Lactate 0.9 0.7 - 2.0 mmol/L Blood 02/24/2025 1:51 AM CHEF 02/24/2025 1:55 AM CHEF Elsie Fuller MD LAB BLOOD ORDERABLES Final Result Performing Organization Address City/State/[facility] Co de Phone Number [facility] [place] [address] * CT Abdomen Pelvis W Contrast (02/24/2025 1:18 AM CHEF) Anatomical Region Laterality Modality Body N/A Computed Tomogra phy 02/24/2025 2:23 AM CHEF Impressions 02/24/2025 9:21 AM CHEF Postsurgical changes of sigmoid colon resection with fat stranding surrounding the anastomosis site which is favored to represent recurrent diverticulitis/infection over postsurgical change given the elevated white count. ADDENDUM - This addendum is being placed on the report for a time dependent finding on a patient who is still in the emergency room (3B). Possible pulmonary embolism in the right pulmonary arteries, recommend CT PE for further evaluation.. These findings were communicated to Dr. Sousa by Jeremy Quan MD immediately upon identification of the findings at readout at 02/24/2025 7:00 AM. Dictated by: Jeremy Quan MD The radiology attending physician has personally reviewed this study, and had reviewed and/or edited this written report and agrees with it. Electronically signed by: Xu Ferrer M.D. Narrative 02/24/2025 9:21 AM CHEF EXAMINATION: CT ABDOMEN PELVIS W CONTRAST HISTORY: Recurrent diverticulitis, complicated colovesicular fistulas with worsening pain TECHNIQUE: Transaxial computed tomographic images of the abdomen and pelvis were obtained with intravenous contrast according to the standard protocol after the administration of 93 mL Opti-Ray 350 intravenous contrast. COMPARISON: CT from 12/14/2024 FINDINGS: Lung bases are clear. No pleural or pericardial effusion. Heart size is normal. No suspicious hepatic lesion. Gallbladder is normal. No biliary duct dilation. Spleen, pancreas, and adrenal glands are normal. Kidneys enhance symmetrically without hydronephrosis. Unchanged chronic bilateral scarring with atrophy of the left kidney. Unchanged nonobstructing left renal stones. Urinary bladder is decompressed by Mcclelland catheter. Uterus is normal. No suspicious adnexal lesion. Postsurgical changes of sigmoid resection for management of a colovesicular fistula and repair of an anterior abdominal wall hernia. There is a small amount of stranding in the pelvis in the region of the anastomosis. Colonic diverticulosis. No thickened or distended loop of small or large bowel. No adjacent abscess. No free fluid or air. Abdominal aorta is normal in caliber. Unchanged 1 cm left para-aortic lymph node. No suspicious osseous lesion. Procedure Note Short, Xu Ochoa MD - 02/24/2025 EXAMINATION: CT ABDOMEN PELVIS W CONTRAST HISTORY: Recurrent diverticulitis, complicated colovesicular fistulas with worsening pain TECHNIQUE: Transaxial computed tomographic images of the abdomen and pelvis were obtained with intravenous contrast according to the standard protocol after the administration of 93 mL Opti-Ray 350 intravenous contrast. COMPARISON: CT from 12/14/2024 FINDINGS: Lung bases are clear. No pleural or pericardial effusion. Heart size is normal. No suspicious hepatic lesion. Gallbladder is normal. No biliary duct dilation. Spleen, pancreas, and adrenal glands are normal. Kidneys enhance symmetrically without hydronephrosis. Unchanged chronic bilateral scarring with atrophy of the left kidney. Unchanged nonobstructing left renal stones. Urinary bladder is decompressed by Mcclelland catheter. Uterus is normal. No suspicious adnexal lesion. Postsurgical changes of sigmoid resection for management of a colovesicular fistula and repair of an anterior abdominal wall hernia. There is a small amount of stranding in the pelvis in the region of the anastomosis. Colonic diverticulosis. No thickened or distended loop of small or large bowel. No adjacent abscess. No free fluid or air. Abdominal aorta is normal in caliber. Unchanged 1 cm left para-aortic lymph node. No suspicious osseous lesion. IMPRESSION: Postsurgical changes of sigmoid colon resection with fat stranding surrounding the anastomosis site which is favored to represent recurrent diverticulitis/infection over postsurgical change given the elevated white count. ADDENDUM - This addendum is being placed on the report for a time dependent finding on a patient who is still in the emergency room (3B). Possible pulmonary embolism in the right pulmonary arteries, recommend CT PE for further evaluation.. These findings were communicated to Dr. Sousa by Jeremy Quan MD immediately upon identification of the findings at readout at 02/24/2025 7:00 AM. Dictated by: Jeremy Quan MD The radiology attending physician has personally reviewed this study, and had reviewed and/or edited this written report and agrees with it. Electronically signed by: Xu Ferrer M.D. us Bernarda Navarro MD IMG CT PROCEDURES Fin al Result * Troponin I high-sensitivity 2-hour (02/24/2025 1:06 AM CHEF) Pathologist [facility] [place] Trop I hs <4 <=17 ng/L Comment: Interpretive Data For further hscTnI resources including the diagnostic algorithm and an aid in interpretation, copy and paste this link: https://bjhlab.testcatalog.org/show/[email or web address] Current Interpretive Data last revised 2019. Trop I hs delta 0 ng/L [facility] Trop I hs interp Insignificant [facility] Blood 02/24/2025 1:06 AM CHEF 02/24/2025 1:20 AM CHEF us Aguilar Melgoza MD LAB BLOOD ORDERABLES Fi nal Result [facility] [place] [address] * (ABNORMAL) Urinalysis reflex to microscopic and culture Urine (02/24/2025 1:06 AM CHEF) Color, ur Yellow Yellow Clarity, ur Cloudy(A) Clear [facility] Specific gravity, ur 1.015 1.003 - 1.030 [facility] pH, urine 6.5 [facility] Comment: Interpretive Data U rine pH is affected by diet, medications, systemic acid-base disturbances, and renal tubular function. pH may affect urinary stone formation. For example, urine pH below 6.0 may help reduce the tendency for calcium phosphate stones and pH greater than 6.0 may reduce the tendency for uric acid stone formation. Source: [facility] Current Interpretive Data was last revised on 2017 Protein, ur ql 1+(A) Negative [facility] Glucose, ur ql Negative Negative [facility] Ketones, ur Negative Negative [facility] Bilirubin, ur Negative Negative [facility] Blood, ur 1+(A) Negative [facility] Urobilinogen, ur <2.0 <2.0 mg/dL [facility] Nitrite, ur Negative Negative [facility] Leukocyte esterase, ur 3+(A) Negative [facility] UA reflex comment Reflex to microscopic UA will be performed. [facility] Urine 02/24/2025 1:06 AM CHEF 02/24/2025 1:13 AM CHEF Elsie Fuller MD LAB MICROBIOLOGY - G ENERAL ORDERABLES Final Result [facility] Department [place] [address] * Blood culture Blood Peripheral (02/24/2025 1:06 AM CHEF) Report Final Report: No growth Blood (Peripheral) 02/24/2025 1:06 AM CHEF 02/24/2025 1:18 AM CHEF Narrative [facility] - 03/01/2025 1:38 PM CHEF From a different site than #1. Draw Blood cultures before administration of Antibiotics Collection->Peripheral 1. Blood cultures are incubated for 4 days on a continuously monitored blood culture system. The first report of a negative culture is issued within 24 hours of receipt of the specimen in the laboratory. 2. Positive culture results are reported as soon as they are detected. 3. The most important factor for detection of microbes in the setting of bloodstream infection is the volume of blood submitted for culture. Failure to collect an optimal blood volume can result in false negative blood cultures. 4. For pediatric patients, the recommended blood volume to collect follows a weight based strategy. See the electronic test catalog for collection instructions. 5. For positive blood cultures, a rapid molecular test may be performed for organism identification using the hussein ePlex blood culture identification panel for gram positive (BCID-GP) and gram negative (BCID-GN) organisms. This nucleic acid amplification test detects microbial DNA in positive blood culture broth. This assay has been cleared by the [place] Food and Drug Administration and its performance characteristics have been verified by the [facility]. For questions about this culture, contact the Microbiology Laboratory at [phone]. Interpretive data was last revised on 24. us Elsie Fuller MD LAB MICROBIOLOGY - G ENERAL ORDERABLES Final Result [facility] [place] [address] * Blood culture Blood Peripheral (02/24/2025 1:06 AM CHEF) Report Final Report: No growth Blood (Peripheral) 02/24/2025 1:06 AM CHEF 02/24/2025 1:18 AM CHEF Narrative [facility] - 02/28/2025 7:00 AM CHEF Draw Blood cultures before administration of Antibiotics Collection->Peripheral 1. Blood cultures are incubated for 4 days on a continuously monitored blood culture system. The first report of a negative culture is issued within 24 hours of receipt of the specimen in the laboratory. 2. Positive culture results are reported as soon as they are detected. 3. The most important factor for detection of microbes in the setting of bloodstream infection is the volume of blood submitted for culture. Failure to collect an optimal blood volume can result in false negative blood cultures. 4. For pediatric patients, the recommended blood volume to collect follows a weight based strategy. See the electronic test catalog for collection instructions. 5. For positive blood cultures, a rapid molecular test may be performed for organism identification using the hussein ePlex blood culture identification panel for gram positive (BCID-GP) and gram negative (BCID-GN) organisms. This nucleic acid amplification test detects microbial DNA in positive blood culture broth. This assay has been cleared by the [place] Food and Drug Administration and its performance characteristics have been verified by the [facility]. For questions about this culture, contact the Microbiology Laboratory at [phone]. Interpretive data was last revised on 24. Elsie Fuller MD LAB MICROBIOLOGY - G ENERAL ORDERABLES Final Result Performing Organization Address [facility] de Phone Number [facility] Department [place] [address] * (ABNORMAL) Urinalysis, microscopic only (02/24/2025 1:06 AM CHEF) WBC, ur >50(A) 0 - 5 /HPF RBC, ur 21-50(A) 0 - 2 /HPF [facility] Epithelial cells, squamous, ur 1-5 0 - 5 /HPF [facility] Yeast, ur 2+(A) [facility] Mucous, ur Present(A) [facility] Culture Reflex Comment Reflex to urine culture will be performed. [facility] Urine 02/24/2025 1:06 AM CHEF 02/24/2025 1:13 AM CHEF Elsie Fuller MD LAB URINE ORDERABLES Final Result Performing Organization Address [facility] de Phone Number [facility] Department [place] [address] * Urine culture Urine (02/24/2025 1:06 AM CHEF) Report Final Report: Less than 100,000 colonies/mL (clinically insignificant growth based on current clinical standards) Organism (CLINICALLY INSIGNIFICANT GROWTH [facility] Urine 02/24/2025 1:06 AM CHEF 02/24/2025 3:04 AM CHEF Narrative [facility] - 02/25/2025 7:30 AM CHEF Urine culture reflexed based upon urinalysis results. Testing performed by [facility] ([phone]) Result [facility] Elsie Fuller MD LAB MICROBIOLOGY - G ENERAL ORDERABLES Final Result Performing Organization Address [facility] Co de Phone Number [facility] Department [place] [address] * (ABNORMAL) Sepsis Lactate w/ Reflex (02/23/2025 10:24 PM CHEF) Pathologist [facility] [place] Sepsis Lactate 2.4(H) 0.7 - 2.0 mmol/L Blood 02/23/2025 10:2 4 PM CHEF 02/23/2025 10:31 PM CHEF Elsie Fuller MD LAB BLOOD ORDERABLES Final Result Performing Organization Address [facility] de Phone Number [facility] Department [place] [address] * Troponin I high-sensitivity series (baseline, 2hr, 4hr, 6hr) (02/23/2025 10:22 PM CHEF) Pathologist [facility] [place] Trop I hs <4 <=17 ng/L Comment: Interpretive Data For further hscTnI resources including the diagnostic algorithm and an aid in interpretation, copy and paste this link: https://[email or web address].testcatalog.org/show/[email or web address] Current Interpretive Data last revised 2019. Blood 02/23/2025 10:2 2 PM CHEF 02/23/2025 10:37 PM CHEF Lara Madera MD LAB BLOOD ORDERABLES María l Result Performing Organization Address [facility] Co de Phone Number [facility] Department [place] [address] * (ABNORMAL) eGFR (02/23/2025 10:22 PM CHEF) Pathologist [facility] [place] eGFR 42(L) >=60 mL/min/1. 73 m2 Comment: Interpretive Data Reference Interval Normal >/= 90 mL/min/1.73m2 Mildly decreased* 60 - 89 mL/min/1.73m2 Mildly to moderately decreased 45 - 59 mL/min/1.73m2 Moderately to severely decreased 30 - 44 mL/min/1.73m2 Severely decreased 15 - 29 mL/min/1.73m2 Kidney Failure < 15 mL/min/1.73m2 *Relative to young adult level Estimated glomerular filtration rate is determined by the 2020 CKD-EPI equation recommended by the National Kidney Foundation (A Unifying Approach to GFR Estimation: Recommendations of the NKF-ASK Task Force on Reassessing the Inclusion of Race in Diagnosing Kidney Disease, JASN 2020). The CKD-EPI equation should not be used for patients with unstable renal function and has not been validated in children and those over 70. Current interpretive data was last reviewed 2021. Blood 02/23/2025 10:2 2 PM CHEF 02/23/2025 10:37 PM CHEF us Aguilar Melgoza MD LAB BLOOD ORDERABLES nal Result [facility] Department [place] [address] * (ABNORMAL) Differential, auto (02/23/2025 10:22 PM CHEF) [facility] Neutrophil abs 10.73(H) 1.50 - 6.50 K/cumm Imm gran abs 0.08 0.00 - 0.10 K/cumm [facility] Lymphocyte abs 1.87 0.80 - 3.30 K/cumm [facility] Monocyte abs 0.62 0.20 - 0.80 K/cumm [facility] Eosinophil abs 0.30 0.00 - 0.50 K/cumm [facility] Basophil abs 0.06 0.00 - 0.10 K/cumm [facility] Neutrophil pct 78.6 % [facility] Comment: Interpretive Data Percent cell count reference ranges are not reported, since discordance with absolute values may lead to misinterpretation of CBC data. Current Interpretive Data was last revised on 2017. Imm gran pct 0.6 % [facility] Comment: Interpretive Data Percent cell count reference ranges are not reported, since discordance with absolute values may lead to misinterpretation of CBC data. Current Interpretive Data was last revised on 2017. Lymphocyte pct 13.7 % [facility] Comment: Interpretive Data Percent cell count reference ranges are not reported, since discordance with absolute values may lead to misinterpretation of CBC data. Current Interpretive Data was last revised on 2017. Monocyte pct 4.5 % [facility] Comment: Interpretive Data Percent cell count reference ranges are not reported, since discordance with absolute values may lead to misinterpretation of CBC data. Current Interpretive Data was last revised on 2017. Eosinophil pct 2.2 % [facility] Comment: Interpretive Data Percent cell count reference ranges are not reported, since discordance with absolute values may lead to misinterpretation of CBC data. Current Interpretive Data was last revised on 2017. Basophil pct 0.4 % [facility] Comment: Interpretive Data Percent cell count reference ranges are not reported, since discordance with absolute values may lead to misinterpretation of CBC data. Current Interpretive Data was last revised on 2017. Blood 02/23/2025 10:2 2 PM CHEF 02/23/2025 10:37 PM CHEF us Aguilar Melgoza MD LAB BLOOD ORDERABLES nal Result [facility] [place] [address] * (ABNORMAL) Calcium, ionized (02/23/2025 10:22 PM CHEF) Calcium, Ionized 6.28(H) 4.50 - 5.10 mg/dL Blood 02/23/2025 10:2 2 PM CHEF 02/23/2025 10:31 PM CHEF us Yanely Rodriguez MD LAB BLOOD ORDERABLES Fi nal Result Performing Organization Address [facility]/ZIP Co de Phone Number [facility] [place] [address] * (ABNORMAL) CBC with auto differential (02/23/2025 10:22 PM CHEF) WBC 13.66(H) 3.80 - 9.90 K/cumm Hgb 11.3(L) 11.9 - 15.5 g/dL [facility] Hct 36.7 35.6 - 45.5 % [facility] Plt 338 150 - 400 K/cumm [facility] MPV 10.2 9.1 - 12.3 fL [facility] RBC 4.28 3.90 - 5.20 M/cumm [facility] MCV 85.7 81.3 - 96.4 fL [facility] MCH 26.4(L) 27.1 - 33.3 pg [facility] MCHC 30.8(L) 32.3 - 35.7 g/dL [facility] RDW CV 15.6(H) 11.1 - 14.9 % [facility] RDW SD 48.7(H) 35.7 - 48.1 fL [facility] NRBC abs 0.00 0.00 - 0.01 K/cumm [facility] Blood Venous blood specimen / Unknown 02/23/2025 10:22 PM CHEF 02/23/2025 10:37 PM CHEF Lara Madera MD LAB BLOOD ORDERABLES María l Result [facility] [place] [address] * Hemoglobin A1c (02/23/2025 10:22 PM CHEF) Hgb A1C 5.1 4.0 - 5.6 % Estimated Average Glucose 100 mg/dL [facility] Comment: The ADA recommends reporting an estimated Average Glucose (eAG) with all Hemoglobin A1c results using the equation derived from a study of 507 normal and diabetic adults. Minority populations were underrepresented and children were not included. (Diabetes Care 2020; 43(S1): S66-S76). The eAG is not equivalent to a fasting glucose. Blood 02/23/2025 10:2 2 PM CHEF 02/23/2025 10:41 PM CHEF us Mulu Mabry MD LAB BLOOD ORDERABLES Final Resu lt [facility] [place] [address] * (ABNORMAL) Lipid panel (02/23/2025 10:22 PM CHEF) Cholesterol 235(H) 30 - 199 mg/dL Comment: Interpretive Data Ages < or = 19 years Acceptable: <170 mg/dL Borderline high: 170-199 mg/dL High: >or= 200 mg/dL Ages > or = 20 years Desirable: <200 mg/dL Borderline high: 200-239 mg/dL High: >or= 240 mg/dL Literature References: 1. Expert Panel on Integrated Guidelines for Cardiovascular Health and Risk Reduction in Children and Adolescents. Pediatrics 2011;128:S213 2. NCEP Expert Panel. Circulation 2004;110:227 Current Interpretive Data was last revised on 2017. Triglycerides 256(H) <=149 mg/dL [facility] Comment: Interpretive Data Ages < or = 9 years Acceptable: <75 mg/dL Borderline high: 75-99 mg/dL High: >or= 100 mg/dL Ages 10 to 20 years Acceptable: <90 mg/dL Borderline high: 90-129 mg/dL High: >or= 130 mg/dL Ages > or = 20 years Desirable: <150 mg/dL Borderline high: 150-199 mg/dL High: 200-499 mg/dL Very high: >or= 499 mg/dL Literature References: 1. Expert Panel on Integrated Guidelines for Cardiovascular Health and Risk Reduction in Children and Adolescents. Pediatrics 2011;128:S213 2. NCEP Expert Panel. Circulation 2004;110:227 Current Interpretive Data was last revised on 2017. HDL 25(L) >=40 mg/dL [facility] Comment: Interpretive Data Ages < or = 19 years Acceptable: >45 mg/dL Borderline low: 40-45 mg/dL Low: <40 mg/dL Ages > or = 20 years Desirable: >or= 60 mg/dL Low: <40 mg/dL Literature References: 1. Expert Panel on Integrated Guidelines for Cardiovascular Health and Risk Reduction in Children and Adolescents. Pediatrics 2011;128:S213 2. NCEP Expert Panel. Circulation 2004;110:227 Current Interpretive Data was last revised on 2017. LDL, calculated 162(H) <=129 mg/dL [facility] Comment: Interpretive Data Ages < or = 19 years Acceptable: <110 mg/dL Borderline high: 110-129 mg/dL High: >or= 130 mg/dL Ages > or = 20 years Optimal: <100 mg/dL Near optimal: 100-129 mg/dL Borderline high: 130-159 mg/dL High: >160 mg/dL Calculated using the George LDL-C estimating equation. This equation was implemented on 2023. Prior to this date LDL-C was estimated using the Friedewald equation. Literature References: 1. Expert Panel on Integrated Guidelines for Cardiovascular Health and Risk Reduction in Children and Adolescents. Pediatrics 2011;128:S213 2. NCEP Expert Panel. Circulation 2004;110:227 3. George Parker et al. JOEY Cardiol. 2019August 21;5(5):540-548. doi: 10.1001/[email or web address].2020.0013 Current Interpretive Data was last revised on 2023. Non-HDL Cholesterol 210 mg/dL [facility] Comment: Interpretive Data Ages < or = 19 years Acceptable: <120 mg/dL Borderline high: 120-144 mg/dL High: >145 mg/dL Ages > or = 20 years When triglycerides are >200 mg/dL, Non-HDL cholesterol is a secondary target of therapy with treatment goals that are 30 mg/dL greater than the LDL cholesterol target. Literature References: 1. Expert Panel on Integrated Guidelines for Cardiovascular Health and Risk Reduction in Children and Adolescents. Pediatrics 2011;128:S213 2. NCEP Expert Panel. Circulation 2004;110:227 Current Interpretive Data was last revised on 2017. Chol/HDL ratio 9 [facility] Blood 02/23/2025 10:2 2 PM CHEF 02/23/2025 10:37 PM CHEF us Mulu Mabry MD LAB BLOOD ORDERABLES Final Resu lt [facility] [place] [address] * (ABNORMAL) Comprehensive metabolic panel (02/23/2025 10:22 PM CHEF) Sodium 138 135 - 145 mmol/L Potassium, pl 3.6 3.3 - 4.9 mmol/L [facility] Chloride 104 97 - 110 mmol/L [facility] CO2 19(L) 22 - 32 mmol/L [facility] Anion gap 15 2 - 15 mmol/L [facility] BUN 20 6 - 25 mg/dL [facility] Creatinine 1.54(H) 0.60 - 1.10 mg/dL [facility] Glucose 131 70 - 199 mg/dL [facility] Comment: Interpretive Data Fasting glucose >/= 126 mg/dl is diagnostic for diabetes. Fasting is defined as no caloric intake for at least 8 hours. Fasting glucose between 100 mg/dl to 125 mg/dl is diagnostic of prediabetes. In a patient with classic symptoms of hyperglycemia or hyperglycemic crisis, a random glucose >/= 200 mg/dl is diagnostic for diabetes. In the absence of unequivocal hyperglycemia, results should be confirmed by repeat testing. The classification and Diagnosis of Diabetes Diabetes Care 2021; 46: S19-S40. Current interpretive data was last revised 2022. Calcium 12.3(H) 8.5 - 10.3 mg/dL [facility] Bilirubin, total 0.5 0.1 - 1.2 mg/dL [facility] Protein, pl 9.0(H) 6.5 - 8.5 g/dL [facility] Albumin 4.0 3.5 - 5.0 g/dL [facility] Alk phos 130 40 - 130 Units/L [facility] ALT 59(H) 7 - 45 Units/L [facility] AST 43 10 - 45 Units/L [facility] Blood 02/23/2025 10:2 2 PM CHEF 02/23/2025 10:37 PM CHEF Lara Madera MD LAB BLOOD ORDERABLES María l Result Performing Organization Address [facility] Co de Phone Number [facility] BR[facility] [place] [address] * ECG 12-LEAD (02/23/2025 6:56 PM CHEF) Narrative [facility] - 02/23/2025 6:56 PM CHEF Pb Braxton MD 02/23/2025 6:56 PM ECG 12 lead Date/Time: 02/23/2025 6:56 PM Performed by: Pb Braxton MD Authorized by: Aguilar Melgoza MD Rate: ECG rate: 113 ECG rate assessment: tachycardic Rhythm: Rhythm: sinus tachycardia Ectopy: Ectopy: none QRS: QRS axis: Normal Conduction: Conduction: normal T waves: T waves: flattening Flattening: V4, V5 and V6 Interpretation: Interpretation: No acute injury pattern Recommended Follow-up: Recommended follow up: further workup in the ED us Lara Madera MD ECG ORDERABLES Final Res ult Performing Organization Address [facility] Co de Phone Number [facility] * XR Chest PA Lateral 2 Views (If patient hemodynamically stable and ambulatory) (02/23/2025 4:15 PM CHEF) Anatomical Region Laterality Modality Body, Chest N/A Computed Radiogr aphy 02/23/2025 4:53 PM CHEF Impressions 02/23/2025 4:53 PM CHEF There is a new nodular opacity overlying the right hilum. Consider further evaluation with nonemergent CT of the chest. Otherwise, no focal consolidation, pleural effusion, or pneumothorax. The cardiomediastinal silhouette is unremarkable. Interval placement of a right IJ central venous catheter with tip in the right atrium. Interval removal of left upper extremity PICC. Electronically signed by: Aiden Dennis MD, MPHS Narrative 02/23/2025 4:53 PM CHEF EXAMINATION: XR CHEST PA LATERAL 2 VIEWS HISTORY: chest pain COMPARISON: Radiographs 12/17/2024 and 11/12/2024. CT 12/14/2024. Procedure Note Aiden Dennis MD - 02/23/2025 EXAMINATION: XR CHEST PA LATERAL 2 VIEWS HISTORY: chest pain COMPARISON: Radiographs 12/17/2024 and 11/12/2024. CT 12/14/2024. IMPRESSION: There is a new nodular opacity overlying the right hilum. Consider further evaluation with nonemergent CT of the chest. Otherwise, no focal consolidation, pleural effusion, or pneumothorax. The cardiomediastinal silhouette is unremarkable. Interval placement of a right IJ central venous catheter with tip in the right atrium. Interval removal of left upper extremity PICC. Electronically signed by: Aiden Dennis MD, MPHS Lara Madera MD IMG XR PROCEDURES Final R esult * (ABNORMAL) eGFR (02/18/2025 11:39 AM CDT) eGFR 53(L) >=60 mL/min/1. 73 m2 Comment: Interpretive Data Reference Interval Normal >/= 90 mL/min/1.73m2 Mildly decreased* 60 - 89 mL/min/1.73m2 Mildly to moderately decreased 45 - 59 mL/min/1.73m2 Moderately to severely decreased 30 - 44 mL/min/1.73m2 Severely decreased 15 - 29 mL/min/1.73m2 Kidney Failure < 15 mL/min/1.73m2 *Relative to young adult level Estimated glomerular filtration rate is determined by the 2020 CKD-EPI equation recommended by the National Kidney Foundation (A Unifying Approach to GFR Estimation: Recommendations of the NKF-ASK Task Force on Reassessing the Inclusion of Race in Diagnosing Kidney Disease, JASN 202). The CKD-EPI equation should not be used for patients with unstable renal function and has not been validated in children and those over 70. Current interpretive data was last reviewed 2021. Blood 02/18/2025 11:3 9 AM CDT 02/18/2025 11:54 AM CDT us Shelia Campa MD LAB BLOOD ORDERABLES Final Resu lt [facility] [address] [address] Department [place] [address] * (ABNORMAL) Differential, auto (02/18/2025 11:39 AM CDT) Neutrophil abs 9.41(H) 1.50 - 6.50 K/cumm Imm gran abs 0.06 0.00 - 0.10 K/cumm [facility] Lymphocyte abs 1.60 0.80 - 3.30 K/cumm [facility] Monocyte abs 0.60 0.20 - 0.80 K/cumm [facility] Eosinophil abs 0.13 0.00 - 0.50 K/cumm [facility] Basophil abs 0.05 0.00 - 0.10 K/cumm [facility] Neutrophil pct 79.4 % [facility] Comment: Interpretive Data Percent cell count reference ranges are not reported, since discordance with absolute values may lead to misinterpretation of CBC data. Current Interpretive Data was last revised on 2017. Imm gran pct 0.5 % [facility] Comment: Interpretive Data Percent cell count reference ranges are not reported, since discordance with absolute values may lead to misinterpretation of CBC data. Current Interpretive Data was last revised on 2017. Lymphocyte pct 13.5 % [facility] Comment: Interpretive Data Percent cell count reference ranges are not reported, since discordance with absolute values may lead to misinterpretation of CBC data. Current Interpretive Data was last revised on 2017. Monocyte pct 5.1 % [facility] Comment: Interpretive Data Percent cell count reference ranges are not reported, since discordance with absolute values may lead to misinterpretation of CBC data. Current Interpretive Data was last revised on 2017. Eosinophil pct 1.1 % [facility] Comment: Interpretive Data Percent cell count reference ranges are not reported, since discordance with absolute values may lead to misinterpretation of CBC data. Current Interpretive Data was last revised on 2017. Basophil pct 0.4 % [facility] Comment: Interpretive Data Percent cell count reference ranges are not reported, since discordance with absolute values may lead to misinterpretation of CBC data. Current Interpretive Data was last revised on 2017. Blood 02/18/2025 11:3 9 AM CDT 02/18/2025 11:55 AM CDT Shelia Campa MD LAB BLOOD ORDERABLES Final Resu lt Performing Organization Address City/[facility]/ZIP Co de Phone Number DENNY [address] [place] [address] * (ABNORMAL) CBC with auto differential (02/18/2025 11:39 AM CDT) WBC 11.85(H) 3.80 - 9.90 K/cumm Hgb 10.8(L) 11.9 - 15.5 g/dL [facility] Hct 35.8 35.6 - 45.5 % [facility] Plt 394 150 - 400 K/cumm [facility] MPV 10.0 9.1 - 12.3 fL [facility] RBC 4.13 3.90 - 5.20 M/cumm [facility] MCV 86.7 81.3 - 96.4 fL [facility] MCH 26.2(L) 27.1 - 33.3 pg [facility] MCHC 30.2(L) 32.3 - 35.7 g/dL [facility] RDW CV 15.2(H) 11.1 - 14.9 % [facility] RDW SD 48.8(H) 35.7 - 48.1 fL [facility] NRBC abs 0.00 0.00 - 0.01 K/cumm [facility] Blood 02/18/2025 11:3 9 AM CDT 02/18/2025 11:55 AM CDT Shelia Campa MD LAB BLOOD ORDERABLES Final Resu lt Performing Organization Address City/[facility]/ZIP Co de Phone Number DENNY [address] Department of [place], [place] [id number] * (ABNORMAL) Comprehensive metabolic panel (02/18/2025 11:39 AM CDT) Sodium 137 135 - 145 mmol/L Potassium, pl 3.4 3.3 - 4.9 mmol/L [facility] Chloride 103 97 - 110 mmol/L [facility] CO2 18(L) 22 - 32 mmol/L [facility] Anion gap 16(H) 2 - 15 mmol/L [facility] BUN 25 6 - 25 mg/dL [facility] Creatinine 1.27(H) 0.60 - 1.10 mg/dL [facility] Glucose 131 70 - 199 mg/dL [facility] Comment: Interpretive Data Fasting glucose >/= 126 mg/dl is diagnostic for diabetes. Fasting is defined as no caloric intake for at least 8 hours. Fasting glucose between 100 mg/dl to 125 mg/dl is diagnostic of prediabetes. In a patient with classic symptoms of hyperglycemia or hyperglycemic crisis, a random glucose >/= 200 mg/dl is diagnostic for diabetes. In the absence of unequivocal hyperglycemia, results should be confirmed by repeat testing. The classification and Diagnosis of Diabetes Diabetes Care 2021; 46: S19-S40. Current interpretive data was last revised 2022. Calcium 12.2(C) 8.5 - 10.3 mg/dL [facility] Comment:Critical Result call ed to and read back by Nina RECIO), DATE: 2025-02-18 12:33:36 BY: Bryan Grider Bilirubin, total 0.4 0.1 - 1.2 mg/dL [facility] Protein, pl 9.1(H) 6.5 - 8.5 g/dL [facility] Albumin 4.0 3.5 - 5.0 g/dL [facility] Alk phos 161(H) 40 - 130 Units/L [facility] ALT 47(H) 7 - 45 Units/L [facility] AST 40 10 - 45 Units/L [facility] Blood 02/18/2025 11:3 9 AM CDT 02/18/2025 11:54 AM CDT us Shelia Campa MD LAB BLOOD ORDERABLES [facility] [address] [address] [place] [address] * (ABNORMAL) Urine culture Urine, indwelling catheter (02/18/2025 10:46 AM CDT) Report Final Report: 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 (.) Comment:Testing performed by : [facility], [facility] [facility], [place]., [address] Organism GROWTH INDICATES CONTAMINATION WITH MIXED KRZYSZTOF. DENNY BETANCUR Urine, indwelling catheter 02/18/2025 10:46 AM CDT 02/18/2025 1:59 PM CDT us Gerry Kearns MD LAB MICROBIOLOGY - GENE RAL ORDERABLES Final Result [facility] [address] [facility] [place] [address] * (ABNORMAL) eGFR (02/13/2025 2:00 PM CDT) eGFR 54(L) >=60 mL/min/1. 73 m2 Comment: Interpretive Data Reference Interval Normal >/= 90 mL/min/1.73m2 Mildly decreased* 60 - 89 mL/min/1.73m2 Mildly to moderately decreased 45 - 59 mL/min/1.73m2 Moderately to severely decreased 30 - 44 mL/min/1.73m2 Severely decreased 15 - 29 mL/min/1.73m2 Kidney Failure < 15 mL/min/1.73m2 *Relative to young adult level Estimated glomerular filtration rate is determined by the 2020 CKD-EPI equation recommended by the National Kidney Foundation (A Unifying Approach to GFR Estimation: Recommendations of the NKF-ASK Task Force on Reassessing the Inclusion of Race in Diagnosing Kidney Disease, JASN 2020). The CKD-EPI equation should not be used for patients with unstable renal function and has not been validated in children and those over 70. Current interpretive data was last reviewed 2021. Blood 02/13/2025 2:00 PM CDT 02/13/2025 2:29 PM CDT us Shelia Campa MD LAB BLOOD ORDERABLES Final Resu lt [facility] [address] [address] Department [place] [address] * (ABNORMAL) Differential, auto (02/13/2025 2:00 PM CDT) Neutrophil abs 12.80(H) 1.50 - 6.50 K/cumm Imm gran abs 0.07 0.00 - 0.10 K/cumm [facility] Lymphocyte abs 1.39 0.80 - 3.30 K/cumm [facility] Monocyte abs 0.66 0.20 - 0.80 K/cumm [facility] Eosinophil abs 0.30 0.00 - 0.50 K/cumm [facility] Basophil abs 0.05 0.00 - 0.10 K/cumm [facility] Neutrophil pct 83.8 % [facility] Comment: Interpretive Data Percent cell count reference ranges are not reported, since discordance with absolute values may lead to misinterpretation of CBC data. Current Interpretive Data was last revised on 2017. Imm gran pct 0.5 % [facility] Comment: Interpretive Data Percent cell count reference ranges are not reported, since discordance with absolute values may lead to misinterpretation of CBC data. Current Interpretive Data was last revised on 2017. Lymphocyte pct 9.1 % [facility] Comment: Interpretive Data Percent cell count reference ranges are not reported, since discordance with absolute values may lead to misinterpretation of CBC data. Current Interpretive Data was last revised on 2017. Monocyte pct 4.3 % [facility] Comment: Interpretive Data Percent cell count reference ranges are not reported, since discordance with absolute values may lead to misinterpretation of CBC data. Current Interpretive Data was last revised on 2017. Eosinophil pct 2.0 % [facility] Comment: Interpretive Data Percent cell count reference ranges are not reported, since discordance with absolute values may lead to misinterpretation of CBC data. Current Interpretive Data was last revised on 2017. Basophil pct 0.3 % [facility] Comment: Interpretive Data Percent cell count reference ranges are not reported, since discordance with absolute values may lead to misinterpretation of CBC data. Current Interpretive Data was last revised on 2017. Blood 02/13/2025 2:00 PM CDT 02/13/2025 2:29 PM CDT Shelia Campa MD LAB BLOOD ORDERABLES Final Resu lt Performing Organization Address [facility]/ZIP Co de Phone Number DENNY [place] [address] [place] [address] * (ABNORMAL) CBC with auto differential (02/13/2025 2:00 PM CDT) WBC 15.27(H) 3.80 - 9.90 K/cumm Hgb 11.0(L) 11.9 - 15.5 g/dL [facility] Hct 36.1 35.6 - 45.5 % [facility] Plt 434(H) 150 - 400 K/cumm [facility] MPV 10.2 9.1 - 12.3 fL [facility] RBC 4.17 3.90 - 5.20 M/cumm [facility] MCV 86.6 81.3 - 96.4 fL [facility] MCH 26.4(L) 27.1 - 33.3 pg [facility] MCHC 30.5(L) 32.3 - 35.7 g/dL [facility] RDW CV 15.5(H) 11.1 - 14.9 % [facility] RDW SD 49.4(H) 35.7 - 48.1 fL [facility] NRBC abs 0.00 0.00 - 0.01 K/cumm [facility] Blood 02/13/2025 2:00 PM CDT 02/13/2025 2:29 PM CDT Shelia Campa MD LAB BLOOD ORDERABLES Final Resu lt Performing Organization Address City/[facility]/ZIP Co de Phone Number DENNY [place] [address] Department of [employer] [place], [place] [id number] * (ABNORMAL) Comprehensive metabolic panel (02/13/2025 2:00 PM CDT) Sodium 136 135 - 145 mmol/L Potassium, pl 3.7 3.3 - 4.9 mmol/L [facility] Chloride 101 97 - 110 mmol/L [facility] CO2 18(L) 22 - 32 mmol/L [facility] Anion gap 17(H) 2 - 15 mmol/L [facility] BUN 32(H) 6 - 25 mg/dL [facility] Creatinine 1.25(H) 0.60 - 1.10 mg/dL [facility] Glucose 118 70 - 199 mg/dL [facility] Comment: Interpretive Data Fasting glucose >/= 126 mg/dl is diagnostic for diabetes. Fasting is defined as no caloric intake for at least 8 hours. Fasting glucose between 100 mg/dl to 125 mg/dl is diagnostic of prediabetes. In a patient with classic symptoms of hyperglycemia or hyperglycemic crisis, a random glucose >/= 200 mg/dl is diagnostic for diabetes. In the absence of unequivocal hyperglycemia, results should be confirmed by repeat testing. The classification and Diagnosis of Diabetes Diabetes Care 2021; 46: S19-S40. Current interpretive data was last revised 2022. Calcium 11.8(H) 8.5 - 10.3 mg/dL [facility] Bilirubin, total 0.5 0.1 - 1.2 mg/dL [facility] Protein, pl 9.2(H) 6.5 - 8.5 g/dL [facility] Albumin 4.2 3.5 - 5.0 g/dL [facility] Alk phos 168(H) 40 - 130 Units/L [facility] ALT 53(H) 7 - 45 Units/L [facility] AST 43 10 - 45 Units/L [facility] Blood 02/13/2025 2:00 PM CDT 02/13/2025 2:29 PM CDT us Shelia Campa MD LAB BLOOD ORDERABLES Final Resu lt [facility] [place] [address] [address] Department [place] [address] * (ABNORMAL) eGFR (02/04/2025 12:23 PM CDT) eGFR 51(L) >=60 mL/min/1. 73 m2 Comment: Interpretive Data Reference Interval Normal >/= 90 mL/min/1.73m2 Mildly decreased* 60 - 89 mL/min/1.73m2 Mildly to moderately decreased 45 - 59 mL/min/1.73m2 Moderately to severely decreased 30 - 44 mL/min/1.73m2 Severely decreased 15 - 29 mL/min/1.73m2 Kidney Failure < 15 mL/min/1.73m2 *Relative to young adult level Estimated glomerular filtration rate is determined by the 2020 CKD-EPI equation recommended by the National Kidney Foundation (A Unifying Approach to GFR Estimation: Recommendations of the NKF-ASK Task Force on Reassessing the Inclusion of Race in Diagnosing Kidney Disease, JASN 2020). The CKD-EPI equation should not be used for patients with unstable renal function and has not been validated in children and those over 70. Current interpretive data was last reviewed 2021. Blood 02/04/2025 12:2 3 PM CDT 02/04/2025 1:01 PM CDT us Shelia Campa MD LAB BLOOD ORDERABLES Final Resu lt [facility] [address] [address] Department [place] [address] * (ABNORMAL) Differential, auto (02/04/2025 12:23 PM CDT) Neutrophil abs 8.11(H) 1.50 - 6.50 K/cumm Imm gran abs 0.06 0.00 - 0.10 K/cumm [facility] Lymphocyte abs 1.57 0.80 - 3.30 K/cumm [facility] Monocyte abs 0.45 0.20 - 0.80 K/cumm [facility] Eosinophil abs 0.43 0.00 - 0.50 K/cumm [facility] Basophil abs 0.07 0.00 - 0.10 K/cumm [facility] Neutrophil pct 75.8 % [facility] Comment: Interpretive Data Percent cell count reference ranges are not reported, since discordance with absolute values may lead to misinterpretation of CBC data. Current Interpretive Data was last revised on 2017. Imm gran pct 0.6 % [facility] Comment: Interpretive Data Percent cell count reference ranges are not reported, since discordance with absolute values may lead to misinterpretation of CBC data. Current Interpretive Data was last revised on 2017. Lymphocyte pct 14.7 % [facility] Comment: Interpretive Data Percent cell count reference ranges are not reported, since discordance with absolute values may lead to misinterpretation of CBC data. Current Interpretive Data was last revised on 2017. Monocyte pct 4.2 % [facility] Comment: Interpretive Data Percent cell count reference ranges are not reported, since discordance with absolute values may lead to misinterpretation of CBC data. Current Interpretive Data was last revised on 2017. Eosinophil pct 4.0 % [facility] Comment: Interpretive Data Percent cell count reference ranges are not reported, since discordance with absolute values may lead to misinterpretation of CBC data. Current Interpretive Data was last revised on 2017. Basophil pct 0.7 % [facility] Comment: Interpretive Data Percent cell count reference ranges are not reported, since discordance with absolute values may lead to misinterpretation of CBC data. Current Interpretive Data was last revised on 2017. Blood 02/04/2025 12:2 3 PM CDT 02/04/2025 12:59 PM CDT us Shelia Campa MD LAB BLOOD ORDERABLES Final Resu lt [facility] [id number] [place] [address] * (ABNORMAL) CBC with auto differential (02/04/2025 12:23 PM CDT) WBC 10.69(H) 3.80 - 9.90 K/cumm Hgb 10.6(L) 11.9 - 15.5 g/dL [facility] Hct 35.7 35.6 - 45.5 % [facility] Plt 457(H) 150 - 400 K/cumm [facility] MPV 10.0 9.1 - 12.3 fL [facility] RBC 3.93 3.90 - 5.20 M/cumm [facility] MCV 90.8 81.3 - 96.4 fL [facility] MCH 27.0(L) 27.1 - 33.3 pg [facility] MCHC 29.7(L) 32.3 - 35.7 g/dL [facility] RDW CV 16.3(H) 11.1 - 14.9 % [facility] RDW SD 54.7(H) 35.7 - 48.1 fL [facility] NRBC abs 0.00 0.00 - 0.01 K/cumm [facility] Blood 02/04/2025 12:2 3 PM CDT 02/04/2025 12:59 PM CDT us Shelia Campa MD LAB BLOOD ORDERABLES Final Resu lt [facility] [id number] [address] Department [place] [address] * (ABNORMAL) Comprehensive metabolic panel (02/04/2025 12:23 PM CDT) Sodium 138 135 - 145 mmol/L Potassium, pl 3.6 3.3 - 4.9 mmol/L [facility] Chloride 101 97 - 110 mmol/L [facility] CO2 20(L) 22 - 32 mmol/L [facility] Anion gap 17(H) 2 - 15 mmol/L [facility] BUN 27(H) 6 - 25 mg/dL [facility] Creatinine 1.31(H) 0.60 - 1.10 mg/dL [facility] Glucose 152 70 - 199 mg/dL [facility] Comment: Interpretive Data Fasting glucose >/= 126 mg/dl is diagnostic for diabetes. Fasting is defined as no caloric intake for at least 8 hours. Fasting glucose between 100 mg/dl to 125 mg/dl is diagnostic of prediabetes. In a patient with classic symptoms of hyperglycemia or hyperglycemic crisis, a random glucose >/= 200 mg/dl is diagnostic for diabetes. In the absence of unequivocal hyperglycemia, results should be confirmed by repeat testing. The classification and Diagnosis of Diabetes Diabetes Care 2021; 46: S19-S40. Current interpretive data was last revised 2022. Calcium 11.1(H) 8.5 - 10.3 mg/dL [facility] Bilirubin, total 0.4 0.1 - 1.2 mg/dL [facility] Protein, pl 8.8(H) 6.5 - 8.5 g/dL [facility] Albumin 3.9 3.5 - 5.0 g/dL [facility] Alk phos 158(H) 40 - 130 Units/L [facility] ALT 102(H) 7 - 45 Units/L [facility] AST 84(H) 10 - 45 Units/L [facility] Blood 02/04/2025 12:2 3 PM CDT 02/04/2025 12:59 PM CDT us Shelia Campa MD LAB BLOOD ORDERABLES Final Resu lt [facility] [id number] [address] Department [place] [address] * (ABNORMAL) eGFR (01/28/2025 9:24 PM CDT) eGFR 44(L) >=60 mL/min/1. 73 m2 Comment: Interpretive Data Reference Interval Normal >/= 90 mL/min/1.73m2 Mildly decreased* 60 - 89 mL/min/1.73m2 Mildly to moderately decreased 45 - 59 mL/min/1.73m2 Moderately to severely decreased 30 - 44 mL/min/1.73m2 Severely decreased 15 - 29 mL/min/1.73m2 Kidney Failure < 15 mL/min/1.73m2 *Relative to young adult level Estimated glomerular filtration rate is determined by the 2020 CKD-EPI equation recommended by the National Kidney Foundation (A Unifying Approach to GFR Estimation: Recommendations of the NKF-ASK Task Force on Reassessing the Inclusion of Race in Diagnosing Kidney Disease, JASN 202). The CKD-EPI equation should not be used for patients with unstable renal function and has not been validated in children and those over 70. Current interpretive data was last reviewed 2021. Blood 01/28/2025 9:24 PM CDT 01/28/2025 9:48 PM CDT us Gerry Kearns MD LAB BLOOD ORDERABLES Fi nal Result Performing Organization Address City/[facility] de Phone Number [facility] Department [place] [address] * (ABNORMAL) CBC without differential (01/28/2025 9:24 PM CDT) [facility] WBC 9.66 3.80 - 9.90 K/cumm Hgb 8.7(L) 11.9 - 15.5 g/dL [facility] Hct 27.5(L) 35.6 - 45.5 % [facility] Plt 386 150 - 400 K/cumm [facility] MPV 10.3 9.1 - 12.3 fL [facility] RBC 3.17(L) 3.90 - 5.20 M/cumm [facility] MCV 86.8 81.3 - 96.4 fL [facility] MCH 27.4 27.1 - 33.3 pg [facility] MCHC 31.6(L) 32.3 - 35.7 g/dL [facility] RDW CV 16.8(H) 11.1 - 14.9 % [facility] RDW SD 53.1(H) 35.7 - 48.1 fL [facility] NRBC abs 0.00 0.00 - 0.01 K/cumm [facility] Blood 01/28/2025 9:24 PM CDT 01/28/2025 9:48 PM CDT us Gerry Kearns MD LAB BLOOD ORDERABLES Fi nal Result Performing Organization Address [facility] Co de Phone Number [facility] Department [place] [address] * Phosphorus (01/28/2025 9:24 PM CDT) [facility] Phosphorus, pl 3.6 2.3 - 4.5 mg/dL Blood 01/28/2025 9:24 PM CDT 01/28/2025 9:48 PM CDT Gerry Kearns MD LAB BLOOD ORDERABLES Fi nal Result Performing Organization Address [facility] Co de Phone Number [facility] [place] [address] * Magnesium (01/28/2025 9:24 PM CDT) [facility] Magnesium 2.1 1.4 - 2.5 mg/dL Blood 01/28/2025 9:24 PM CDT 01/28/2025 9:48 PM CDT Gerry Kearns MD LAB BLOOD ORDERABLES Fi nal Result Performing Organization Address [facility] de Phone Number [facility] [place] [address] * (ABNORMAL) Basic metabolic panel (01/28/2025 9:24 PM CDT) [facility] Sodium 139 135 - 145 mmol/L Potassium, pl 3.9 3.3 - 4.9 mmol/L [facility] Chloride 99 97 - 110 mmol/L [facility] CO2 23 22 - 32 mmol/L [facility] Anion gap 17(H) 2 - 15 mmol/L [facility] BUN 16 6 - 25 mg/dL [facility] Creatinine 1.48(H) 0.60 - 1.10 mg/dL [facility] Glucose 106 70 - 199 mg/dL [facility] Comment: Interpretive Data Fasting glucose >/= 126 mg/dl is diagnostic for diabetes. Fasting is defined as no caloric intake for at least 8 hours. Fasting glucose between 100 mg/dl to 125 mg/dl is diagnostic of prediabetes. In a patient with classic symptoms of hyperglycemia or hyperglycemic crisis, a random glucose >/= 200 mg/dl is diagnostic for diabetes. In the absence of unequivocal hyperglycemia, results should be confirmed by repeat testing. The classification and Diagnosis of Diabetes Diabetes Care 2021; 46: S19-S40. Current interpretive data was last revised 2022. Calcium 11.2(H) 8.5 - 10.3 mg/dL [facility] Blood 01/28/2025 9:24 PM CDT 01/28/2025 9:48 PM CDT Gerry Kearns MD LAB BLOOD ORDERABLES Fi nal Result [facility] Department [place] [address] * POCT glucose (01/28/2025 5:24 AM CDT) Glucose, POC 111 70 - 199 mg/dL Blood 01/28/2025 5:24 AM CDT 01/28/2025 5:24 AM CDT Gerry Kearns MD LAB POCT ORDERABLES - D EVICE Final Result Performing Organization Address [facility] Co de Phone Number [facility] Department [place] [address] * (ABNORMAL) eGFR (01/27/2025 9:32 PM CDT) eGFR 46(L) >=60 mL/min/1. 73 m2 Comment: Interpretive Data Reference Interval Normal >/= 90 mL/min/1.73m2 Mildly decreased* 60 - 89 mL/min/1.73m2 Mildly to moderately decreased 45 - 59 mL/min/1.73m2 Moderately to severely decreased 30 - 44 mL/min/1.73m2 Severely decreased 15 - 29 mL/min/1.73m2 Kidney Failure < 15 mL/min/1.73m2 *Relative to young adult level Estimated glomerular filtration rate is determined by the 2020 CKD-EPI equation recommended by the National Kidney Foundation (A Unifying Approach to GFR Estimation: Recommendations of the NKF-ASK Task Force on Reassessing the Inclusion of Race in Diagnosing Kidney Disease, JASN 2020). The CKD-EPI equation should not be used for patients with unstable renal function and has not been validated in children and those over 70. Current interpretive data was last reviewed 2021. Blood 01/27/2025 9:32 PM CDT 01/27/2025 10:49 PM CDT Gerry Kearns MD LAB BLOOD ORDERABLES Fi nal Result Performing Organization Address [facility] Co de Phone Number [facility] Department [place] [address] * (ABNORMAL) CBC without differential (01/27/2025 9:32 PM CDT) [facility] WBC 8.57 3.80 - 9.90 K/cumm Hgb 8.5(L) 11.9 - 15.5 g/dL [facility] Hct 28.2(L) 35.6 - 45.5 % [facility] Plt 408(H) 150 - 400 K/cumm [facility] MPV 10.4 9.1 - 12.3 fL [facility] RBC 3.18(L) 3.90 - 5.20 M/cumm [facility] MCV 88.7 81.3 - 96.4 fL [facility] MCH 26.7(L) 27.1 - 33.3 pg [facility] MCHC 30.1(L) 32.3 - 35.7 g/dL [facility] RDW CV 16.7(H) 11.1 - 14.9 % [facility] RDW SD 54.3(H) 35.7 - 48.1 fL [facility] NRBC abs 0.00 0.00 - 0.01 K/cumm [facility] Blood 01/27/2025 9:32 PM CDT 01/27/2025 10:50 PM CDT Gerry Kearns MD LAB BLOOD ORDERABLES Fi nal Result Performing Organization Address [facility]/ZIP Co de Phone Number [facility] Department [place] [address] * Phosphorus (01/27/2025 9:32 PM CDT) Pathologist [facility] [place] Phosphorus, pl 4.1 2.3 - 4.5 mg/dL Blood 01/27/2025 9:32 PM CDT 01/27/2025 10:49 PM CDT Gerry Kearns MD LAB BLOOD ORDERABLES Fi nal Result Performing Organization Address City/[facility] Co de Phone Number [facility] [place] [address] * Magnesium (01/27/2025 9:32 PM CDT) [facility] Magnesium 2.1 1.4 - 2.5 mg/dL Blood 01/27/2025 9:32 PM CDT 01/27/2025 10:49 PM CDT Gerry Kearns MD LAB BLOOD ORDERABLES Fi nal Result Performing Organization Address [facility] de Phone Number [facility] [place] [address] * (ABNORMAL) Basic metabolic panel (01/27/2025 9:32 PM CDT) [facility] Sodium 139 135 - 145 mmol/L Potassium, pl 3.8 3.3 - 4.9 mmol/L [facility] Chloride 102 97 - 110 mmol/L [facility] CO2 24 22 - 32 mmol/L [facility] Anion gap 13 2 - 15 mmol/L [facility] BUN 16 6 - 25 mg/dL [facility] Creatinine 1.42(H) 0.60 - 1.10 mg/dL [facility] Glucose 100 70 - 199 mg/dL [facility] Comment: Interpretive Data Fasting glucose >/= 126 mg/dl is diagnostic for diabetes. Fasting is defined as no caloric intake for at least 8 hours. Fasting glucose between 100 mg/dl to 125 mg/dl is diagnostic of prediabetes. In a patient with classic symptoms of hyperglycemia or hyperglycemic crisis, a random glucose >/= 200 mg/dl is diagnostic for diabetes. In the absence of unequivocal hyperglycemia, results should be confirmed by repeat testing. The classification and Diagnosis of Diabetes Diabetes Care 2021; 46: S19-S40. Current interpretive data was last revised 2022. Calcium 10.8(H) 8.5 - 10.3 mg/dL [facility] Blood 01/27/2025 9:32 PM CDT 01/27/2025 10:49 PM CDT Gerry Kearns MD LAB BLOOD ORDERABLES Fi nal Result Performing Organization Address City/[facility]/ZIP Co de Phone Number [facility] [place] [address] * POCT glucose (01/27/2025 4:40 PM CDT) [facility] Signature Glucose, POC 96 70 - 199 mg/dL Blood 01/27/2025 4:40 PM CDT 01/27/2025 4:40 PM CDT Gerry Kearns MD LAB POCT ORDERABLES - D EVICE Final Result Performing Organization Address [facility] de Phone Number [facility] [place] [address] * CT Cystogram WO Contrast (01/27/2025 1:56 PM CDT) Anatomical Region Laterality Modality Pelvis N/A Computed Tomogra phy 01/27/2025 4:01 PM CDT Impressions 01/28/2025 8:31 AM CDT 1. Findings of intraperitoneal bladder leak along the posterior bladder dome. 2. 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 Recommend continued attention on follow-up. 3. Fluid and gas collection within the subcutaneous tissues of the anterior abdominal wall at the site of the incision. Recommend correlation with physical exam and assessment for drainage from incision. The Critical results were discussed with Dr. Gerardo by Dr. Anival Handy M.D. on 01/27/2025 4:00 PM. Dictated by: Anival Handy M.D. The radiology attending physician has personally reviewed this study, and had reviewed and/or edited this written report and agrees with it. Electronically signed by: Rocael Brewer M.D. 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 TECHNIQUE: The urinary bladder was allowed to fill by gravity with dilute Opti-Ray 350 contrast in saline through the previously placed bladder catheter to full distension. Transaxial computed tomographic images of the pelvis were obtained without intravenous contrast according to the cystography protocol. The bladder was then drained of contrast by gravity. COMPARISON: CT 12/14/2024 FINDINGS: Post surgical changes of sigmoid resection with suture line within the left lower quadrant/pelvis. Adjacent to the posterior aspect of the resection line, there is a ill-defined focus of soft tissue attenuation which measures 2.5 x 2.1 cm. Surgical drain in place with tip terminating within the pelvis. There is fat stranding, gas, and a small fluid collection measuring approximately 5.7 cm within the anterior abdominal wall at the site of surgery. Along the posterior superior aspect of the urinary bladder, there is a small contrast-containing tract with extravasation of contrast into the peritoneal cavity (series 18, image 84). The bladder wall defect in the posterior bladder dome appears to be in close proximity to the site of prior colovesicular fistula. Imaged bowel is normal in course and caliber without evidence of obstruction. Diverticulosis noted. No pneumoperitoneum. The uterus is present. No suspicious adnexal masses. Mildly prominent common iliac nodes are likely reactive. No suspicious osseous lesions. 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 TECHNIQUE: The urinary bladder was allowed to fill by gravity with dilute Opti-Ray 350 contrast in saline through the previously placed bladder catheter to full distension. Transaxial computed tomographic images of the pelvis were obtained without intravenous contrast according to the cystography protocol. The bladder was then drained of contrast by gravity. COMPARISON: CT 12/14/2024 FINDINGS: Post surgical changes of sigmoid resection with suture line within the left lower quadrant/pelvis. Adjacent to the posterior aspect of the resection line, there is a ill-defined focus of soft tissue attenuation which measures 2.5 x 2.1 cm. Surgical drain in place with tip terminating within the pelvis. There is fat stranding, gas, and a small fluid collection measuring approximately 5.7 cm within the anterior abdominal wall at the site of surgery. Along the posterior superior aspect of the urinary bladder, there is a small contrast-containing tract with extravasation of contrast into the peritoneal cavity (series 18, image 84). The bladder wall defect in the posterior bladder dome appears to be in close proximity to the site of prior colovesicular fistula. Imaged bowel is normal in course and caliber without evidence of obstruction. Diverticulosis noted. No pneumoperitoneum. The uterus is present. No suspicious adnexal masses. Mildly prominent common iliac nodes are likely reactive. No suspicious osseous lesions. IMPRESSION: 1. Findings of intraperitoneal bladder leak along the posterior bladder dome. 2. 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 Recommend continued attention on follow-up. 3. Fluid and gas collection within the subcutaneous tissues of the anterior abdominal wall at the site of the incision. Recommend correlation with physical exam and assessment for drainage from incision. The Critical results were discussed with Dr. Gerardo by Dr. Anival Handy M.D. on 01/27/2025 4:00 PM. Dictated by: Anival Handy M.D. The radiology attending physician has personally reviewed this study, and had reviewed and/or edited this written report and agrees with it. Electronically signed by: Rocael Brewer M.D. Samina Bueno NP IMG CT PROCEDURES Final R esult * POCT glucose (01/27/2025 12:36 PM CDT) Glucose, POC 120 70 - 199 mg/dL Blood 01/27/2025 12:3 6 PM CDT 01/27/2025 12:36 PM CDT us Gerry Kearns MD LAB POCT ORDERABLES - D EVICE Final Result Performing Organization Address [facility] Co de Phone Number [facility] [place] [address] * POCT glucose (01/27/2025 8:02 AM CDT) Glucose, POC 112 70 - 199 mg/dL Blood 01/27/2025 8:02 AM CDT 01/27/2025 8:02 AM CDT us Gerry Kearns MD LAB POCT ORDERABLES - D EVICE Final Result Performing Organization Address [facility] Co de Phone Number [facility] Department [place] [address] * POCT glucose (01/27/2025 4:03 AM CDT) Glucose, POC 114 70 - 199 mg/dL Blood 01/27/2025 4:03 AM CDT 01/27/2025 4:03 AM CDT us Gerry Kearns MD LAB POCT ORDERABLES - D EVICE Final Result Performing Organization Address [facility] de Phone Number [facility] [place] [address] * POCT glucose (01/27/2025 12:11 AM CDT) Glucose, POC 108 70 - 199 mg/dL Blood 01/27/2025 12:1 1 AM CDT 01/27/2025 12:11 AM CDT us Gerry Kearns MD LAB POCT ORDERABLES - D EVICE Final Result Performing Organization Address [facility] Co de Phone Number [facility] Department [place] [address] * (ABNORMAL) eGFR (01/26/2025 10:18 PM CDT) Pathologist [facility] [place] eGFR 47(L) >=60 mL/min/1. 73 m2 Comment: Interpretive Data Reference Interval Normal >/= 90 mL/min/1.73m2 Mildly decreased* 60 - 89 mL/min/1.73m2 Mildly to moderately decreased 45 - 59 mL/min/1.73m2 Moderately to severely decreased 30 - 44 mL/min/1.73m2 Severely decreased 15 - 29 mL/min/1.73m2 Kidney Failure < 15 mL/min/1.73m2 *Relative to young adult level Estimated glomerular filtration rate is determined by the 2020 CKD-EPI equation recommended by the National Kidney Foundation (A Unifying Approach to GFR Estimation: Recommendations of the NKF-ASK Task Force on Reassessing the Inclusion of Race in Diagnosing Kidney Disease, JASN 2020). The CKD-EPI equation should not be used for patients with unstable renal function and has not been validated in children and those over 70. Current interpretive data was last reviewed 2021. Blood 01/26/2025 10:1 8 PM CDT 01/26/2025 10:44 PM CDT us Gerry Kearns MD LAB BLOOD ORDERABLES Fi nal Result Performing Organization Address [facility] Co de Phone Number [facility] Department [place] [address] * (ABNORMAL) CBC without differential (01/26/2025 10:18 PM CDT) Pathologist [facility] [place] WBC 8.06 3.80 - 9.90 K/cumm Hgb 8.4(L) 11.9 - 15.5 g/dL [facility] Hct 26.9(L) 35.6 - 45.5 % [facility] Plt 391 150 - 400 K/cumm [facility] MPV 10.1 9.1 - 12.3 fL [facility] RBC 3.12(L) 3.90 - 5.20 M/cumm [facility] MCV 86.2 81.3 - 96.4 fL [facility] MCH 26.9(L) 27.1 - 33.3 pg [facility] MCHC 31.2(L) 32.3 - 35.7 g/dL [facility] RDW CV 16.6(H) 11.1 - 14.9 % [facility] RDW SD 51.7(H) 35.7 - 48.1 fL [facility] NRBC abs 0.00 0.00 - 0.01 K/cumm [facility] Blood 01/26/2025 10:1 8 PM CDT 01/26/2025 10:45 PM CDT Gerry Kearns MD LAB BLOOD ORDERABLES Fi nal Result Performing Organization Address City/[facility]/ZIP Co de Phone Number [facility] [place] [address] * Phosphorus (01/26/2025 10:18 PM CDT) Pathologist [facility] [place] Phosphorus, pl 3.9 2.3 - 4.5 mg/dL Blood 01/26/2025 10:1 8 PM CDT 01/26/2025 10:44 PM CDT Gerry Kearns MD LAB BLOOD ORDERABLES Fi nal Result [facility] Department [place] [address] * Magnesium (01/26/2025 10:18 PM CDT) Pathologist [facility] Magnesium 2.2 1.4 - 2.5 mg/dL Blood 01/26/2025 10:1 8 PM CDT 01/26/2025 10:44 PM CDT us Gerry Kearns MD LAB BLOOD ORDERABLES Fi nal Result [facility] Department [place] [address] * (ABNORMAL) Basic metabolic panel (01/26/2025 10:18 PM CDT) Pathologist [facility] [place] Sodium 137 135 - 145 mmol/L Potassium, pl 3.8 3.3 - 4.9 mmol/L [facility] Chloride 102 97 - 110 mmol/L [facility] CO2 25 22 - 32 mmol/L [facility] Anion gap 10 2 - 15 mmol/L [facility] BUN 15 6 - 25 mg/dL [facility] Creatinine 1.41(H) 0.60 - 1.10 mg/dL [facility] Glucose 100 70 - 199 mg/dL [facility] Comment: Interpretive Data Fasting glucose >/= 126 mg/dl is diagnostic for diabetes. Fasting is defined as no caloric intake for at least 8 hours. Fasting glucose between 100 mg/dl to 125 mg/dl is diagnostic of prediabetes. In a patient with classic symptoms of hyperglycemia or hyperglycemic crisis, a random glucose >/= 200 mg/dl is diagnostic for diabetes. In the absence of unequivocal hyperglycemia, results should be confirmed by repeat testing. The classification and Diagnosis of Diabetes Diabetes Care 202; 46: S19-S40. Current interpretive data was last revised 2022. Calcium 10.8(H) 8.5 - 10.3 mg/dL [facility] Blood 01/26/2025 10:1 8 PM CDT 01/26/2025 10:44 PM CDT us Gerry Kearns MD LAB BLOOD ORDERABLES Fi nal Result Performing Organization Address [facility]/ZIP Co de Phone Number [facility] Department [place] [address] * POCT glucose (01/26/2025 7:53 PM CDT) Glucose, POC 114 70 - 199 mg/dL Blood 01/26/2025 7:53 PM CDT 01/26/2025 7:53 PM CDT Gerry Kearns MD LAB POCT ORDERABLES - D EVICE Final Result Performing Organization Address [facility] Co de Phone Number [facility] [place] [address] * POCT glucose (01/26/2025 4:13 PM CDT) Glucose, POC 107 70 - 199 mg/dL Blood 01/26/2025 4:13 PM CDT 01/26/2025 4:13 PM CDT Gerry Kearns MD LAB POCT ORDERABLES - D EVICE Final Result Performing Organization Address [facility] de Phone Number [facility] [place] [id number] * POCT glucose (01/26/2025 12:05 PM CDT) Glucose, POC 140 70 - 199 mg/dL Blood 01/26/2025 12:0 5 PM CDT 01/26/2025 12:05 PM CDT Gerry Kearns MD LAB POCT ORDERABLES - D EVICE Final Result Performing Organization Address [facility] Co de Phone Number [facility] [place] [address] * POCT glucose (01/26/2025 7:44 AM CDT) Glucose, POC 121 70 - 199 mg/dL Blood 01/26/2025 7:44 AM CDT 01/26/2025 7:44 AM CDT Gerry Kearns MD LAB POCT ORDERABLES - D EVICE Final Result Performing Organization Address City/[facility] Co de Phone Number [facility] [place] [address] * POCT glucose (01/26/2025 4:32 AM CDT) Glucose, POC 119 70 - 199 mg/dL Blood 01/26/2025 4:32 AM CDT 01/26/2025 4:32 AM CDT Gerry Kearns MD LAB POCT ORDERABLES - D EVICE Final Result Performing Organization Address [facility] Co de Phone Number [facility] [place] [address] * POCT glucose (01/25/2025 11:47 PM CDT) Glucose, POC 103 70 - 199 mg/dL Blood 01/25/2025 11:4 7 PM CDT 01/25/2025 11:47 PM CDT Gerry Kearns MD LAB POCT ORDERABLES - D EVICE Final Result Performing Organization Address [facility] Co de Phone Number [facility] [place] [address] * (ABNORMAL) eGFR (01/25/2025 8:47 PM CDT) eGFR 44(L) >=60 mL/min/1. 73 m2 Comment: Interpretive Data Reference Interval Normal >/= 90 mL/min/1.73m2 Mildly decreased* 60 - 89 mL/min/1.73m2 Mildly to moderately decreased 45 - 59 mL/min/1.73m2 Moderately to severely decreased 30 - 44 mL/min/1.73m2 Severely decreased 15 - 29 mL/min/1.73m2 Kidney Failure < 15 mL/min/1.73m2 *Relative to young adult level Estimated glomerular filtration rate is determined by the 2020 CKD-EPI equation recommended by the National Kidney Foundation (A Unifying Approach to GFR Estimation: Recommendations of the NKF-ASK Task Force on Reassessing the Inclusion of Race in Diagnosing Kidney Disease, JASN 2020). The CKD-EPI equation should not be used for patients with unstable renal function and has not been validated in children and those over 70. Current interpretive data was last reviewed 2021. Blood 01/25/2025 8:47 PM CDT 01/25/2025 9:28 PM CDT us Gerry Kearns MD LAB BLOOD ORDERABLES Fi nal Result [facility] [place] [address] * (ABNORMAL) CBC without differential (01/25/2025 8:47 PM CDT) WBC 7.97 3.80 - 9.90 K/cumm Hgb 8.5(L) 11.9 - 15.5 g/dL [facility] Hct 27.4(L) 35.6 - 45.5 % [facility] Plt 385 150 - 400 K/cumm [facility] MPV 10.1 9.1 - 12.3 fL [facility] RBC 3.15(L) 3.90 - 5.20 M/cumm [facility] MCV 87.0 81.3 - 96.4 fL [facility] MCH 27.0(L) 27.1 - 33.3 pg [facility] MCHC 31.0(L) 32.3 - 35.7 g/dL [facility] RDW CV 16.2(H) 11.1 - 14.9 % [facility] RDW SD 51.6(H) 35.7 - 48.1 fL [facility] NRBC abs 0.00 0.00 - 0.01 K/cumm [facility] Blood 01/25/2025 8:47 PM CDT 01/25/2025 9:29 PM CDT Gerry Kearns MD LAB BLOOD ORDERABLES Fi nal Result Performing Organization Address [facility] Co de Phone Number [facility] [place] [address] * Phosphorus (01/25/2025 8:47 PM CDT) [facility] Phosphorus, pl 4.4 2.3 - 4.5 mg/dL Blood 01/25/2025 8:47 PM CDT 01/25/2025 9:28 PM CDT Gerry Kearns MD LAB BLOOD ORDERABLES Fi nal Result Performing Organization Address [facility] Co de Phone Number [facility] [place] [address] * Magnesium (01/25/2025 8:47 PM CDT) [facility] Magnesium 2.2 1.4 - 2.5 mg/dL Blood 01/25/2025 8:47 PM CDT 01/25/2025 9:28 PM CDT Gerry Kearns MD LAB BLOOD ORDERABLES Fi nal Result Performing Organization Address [facility] Co de Phone Number [facility] [place] [address] * (ABNORMAL) Basic metabolic panel (01/25/2025 8:47 PM CDT) [facility] Sodium 134(L) 135 - 145 mmol/L Potassium, pl 3.5 3.3 - 4.9 mmol/L [facility] Chloride 98 97 - 110 mmol/L [facility] CO2 24 22 - 32 mmol/L [facility] Anion gap 12 2 - 15 mmol/L [facility] BUN 13 6 - 25 mg/dL [facility] Creatinine 1.48(H) 0.60 - 1.10 mg/dL [facility] Glucose 97 70 - 199 mg/dL [facility] Comment: Interpretive Data Fasting glucose >/= 126 mg/dl is diagnostic for diabetes. Fasting is defined as no caloric intake for at least 8 hours. Fasting glucose between 100 mg/dl to 125 mg/dl is diagnostic of prediabetes. In a patient with classic symptoms of hyperglycemia or hyperglycemic crisis, a random glucose >/= 200 mg/dl is diagnostic for diabetes. In the absence of unequivocal hyperglycemia, results should be confirmed by repeat testing. The classification and Diagnosis of Diabetes Diabetes Care 2021; 46: S19-S40. Current interpretive data was last revised 2022. Calcium 10.7(H) 8.5 - 10.3 mg/dL [facility] Blood 01/25/2025 8:47 PM CDT 01/25/2025 9:28 PM CDT us Gerry Kearns MD LAB BLOOD ORDERABLES Fi nal Result Performing Organization Address [facility]/ZIP Co de Phone Number [facility] [place] [address] * POCT glucose (01/25/2025 7:54 PM CDT) Glucose, POC 111 70 - 199 mg/dL Blood 01/25/2025 7:54 PM CDT 01/25/2025 7:54 PM CDT us Gerry Kearns MD LAB POCT ORDERABLES - D EVICE Final Result [facility] [place] [address] * POCT glucose (01/25/2025 5:28 PM CDT) Glucose, POC 107 70 - 199 mg/dL Blood 01/25/2025 5:28 PM CDT 01/25/2025 5:28 PM CDT us Gerry Kearns MD LAB POCT ORDERABLES - D EVICE Final Result Performing Organization Address City/[facility]/ZIP Co de Phone Number [facility] [place] [address] * POCT glucose (01/25/2025 12:12 PM CDT) Glucose, POC 95 70 - 199 mg/dL Blood 01/25/2025 12:1 2 PM CDT 01/25/2025 12:12 PM CDT us Gerry Kearns MD LAB POCT ORDERABLES - D EVICE Final Result Performing Organization Address [facility] Co de Phone Number [facility] [place] [address] * POCT glucose (01/25/2025 8:13 AM CDT) Glucose, POC 111 70 - 199 mg/dL Blood 01/25/2025 8:13 AM CDT 01/25/2025 8:13 AM CDT us Gerry Kearns MD LAB POCT ORDERABLES - D EVICE Final Result Performing Organization Address [facility] Co de Phone Number [facility] [place] [address] * POCT glucose (01/25/2025 4:31 AM CDT) Glucose, POC 103 70 - 199 mg/dL Blood 01/25/2025 4:31 AM CDT 01/25/2025 4:31 AM CDT us Gerry Kearns MD LAB POCT ORDERABLES - D EVICE Final Result Performing Organization Address City/[facility]/ZIP Co de Phone Number [facility] [place] [address] * (ABNORMAL) eGFR (01/24/2025 8:27 PM CDT) Pathologist [facility] [place] eGFR 41(L) >=60 mL/min/1. 73 m2 Comment: Interpretive Data Reference Interval Normal >/= 90 mL/min/1.73m2 Mildly decreased* 60 - 89 mL/min/1.73m2 Mildly to moderately decreased 45 - 59 mL/min/1.73m2 Moderately to severely decreased 30 - 44 mL/min/1.73m2 Severely decreased 15 - 29 mL/min/1.73m2 Kidney Failure < 15 mL/min/1.73m2 *Relative to young adult level Estimated glomerular filtration rate is determined by the 2020 CKD-EPI equation recommended by the National Kidney Foundation (A Unifying Approach to GFR Estimation: Recommendations of the NKF-ASK Task Force on Reassessing the Inclusion of Race in Diagnosing Kidney Disease, JASN 2020). The CKD-EPI equation should not be used for patients with unstable renal function and has not been validated in children and those over 70. Current interpretive data was last reviewed 2021. Blood 01/24/2025 8:27 PM CDT 01/24/2025 9:25 PM CDT us Gerry Kearns MD LAB BLOOD ORDERABLES Fi nal Result [facility] Department [place] [address] * (ABNORMAL) CBC without differential (01/24/2025 8:27 PM CDT) [facility] WBC 8.56 3.80 - 9.90 K/cumm Hgb 8.6(L) 11.9 - 15.5 g/dL [facility] Hct 27.9(L) 35.6 - 45.5 % [facility] Plt 410(H) 150 - 400 K/cumm [facility] MPV 10.1 9.1 - 12.3 fL [facility] RBC 3.20(L) 3.90 - 5.20 M/cumm [facility] MCV 87.2 81.3 - 96.4 fL [facility] MCH 26.9(L) 27.1 - 33.3 pg [facility] MCHC 30.8(L) 32.3 - 35.7 g/dL [facility] RDW CV 16.4(H) 11.1 - 14.9 % [facility] RDW SD 52.7(H) 35.7 - 48.1 fL [facility] NRBC abs 0.00 0.00 - 0.01 K/cumm [facility] Blood 01/24/2025 8:27 PM CDT 01/24/2025 9:25 PM CDT Gerry Kearns MD LAB BLOOD ORDERABLES Fi nal Result Performing Organization Address [facility] Co de Phone Number [facility] Department [place] [address] * Phosphorus (01/24/2025 8:27 PM CDT) Phosphorus, pl 4.5 2.3 - 4.5 mg/dL Blood 01/24/2025 8:27 PM CDT 01/24/2025 9:25 PM CDT Gerry Kearns MD LAB BLOOD ORDERABLES Fi nal Result Performing Organization Address [facility] Co de Phone Number [facility] Department [place] [address] * Magnesium (01/24/2025 8:27 PM CDT) Magnesium 2.1 1.4 - 2.5 mg/dL Blood 01/24/2025 8:27 PM CDT 01/24/2025 9:25 PM CDT Gerry Kearns MD LAB BLOOD ORDERABLES Fi nal Result Performing Organization Address City/[facility] de Phone Number [facility] Department [place] [address] * (ABNORMAL) Basic metabolic panel (01/24/2025 8:27 PM CDT) Pathologist [facility] [place] Sodium 139 135 - 145 mmol/L Potassium, pl 3.6 3.3 - 4.9 mmol/L [facility] Chloride 103 97 - 110 mmol/L [facility] CO2 25 22 - 32 mmol/L [facility] Anion gap 11 2 - 15 mmol/L [facility] BUN 13 6 - 25 mg/dL [facility] Creatinine 1.58(H) 0.60 - 1.10 mg/dL [facility] Glucose 80 70 - 199 mg/dL [facility] Comment: Interpretive Data Fasting glucose >/= 126 mg/dl is diagnostic for diabetes. Fasting is defined as no caloric intake for at least 8 hours. Fasting glucose between 100 mg/dl to 125 mg/dl is diagnostic of prediabetes. In a patient with classic symptoms of hyperglycemia or hyperglycemic crisis, a random glucose >/= 200 mg/dl is diagnostic for diabetes. In the absence of unequivocal hyperglycemia, results should be confirmed by repeat testing. The classification and Diagnosis of Diabetes Diabetes Care 2021; 46: S19-S40. Current interpretive data was last revised 2022. Calcium 10.3 8.5 - 10.3 mg/dL [facility] Blood 01/24/2025 8:27 PM CDT 01/24/2025 9:25 PM CDT Gerry Kearns MD LAB BLOOD ORDERABLES Fi nal Result [facility] [place] [address] * POCT glucose (01/24/2025 8:25 PM CDT) Glucose, POC 84 70 - 199 mg/dL Blood 01/24/2025 8:25 PM CDT 01/24/2025 8:25 PM CDT us Gerry Kearns MD LAB POCT ORDERABLES - D EVICE Final Result Performing Organization Address [facility] Co de Phone Number [facility] [place] [address] * POCT glucose (01/24/2025 6:17 PM CDT) Glucose, POC 91 70 - 199 mg/dL Blood 01/24/2025 6:17 PM CDT 01/24/2025 6:17 PM CDT us Gerry Kearns MD LAB POCT ORDERABLES - D EVICE Final Result Performing Organization Address [facility] Co de Phone Number [facility] [place] [address] * POCT glucose (01/24/2025 4:33 PM CDT) Glucose, POC 80 70 - 199 mg/dL Blood 01/24/2025 4:33 PM CDT 01/24/2025 4:33 PM CDT us Gerry Kearns MD LAB POCT ORDERABLES - D EVICE Final Result Performing Organization Address [facility] Co de Phone Number [facility] [place] [address] * POCT glucose (01/24/2025 12:32 PM CDT) Glucose, POC 97 70 - 199 mg/dL Blood 01/24/2025 12:3 2 PM CDT 01/24/2025 12:32 PM CDT us Gerry Kearns MD LAB POCT ORDERABLES - D EVICE Final Result Performing Organization Address [facility] Co de Phone Number [facility] [place] [address] * POCT glucose (01/24/2025 8:31 AM CDT) Glucose, POC 101 70 - 199 mg/dL Blood 01/24/2025 8:31 AM CDT 01/24/2025 8:31 AM CDT us Gerry Kearns MD LAB POCT ORDERABLES - [place] [address] * POCT glucose (01/24/2025 4:48 AM CDT) Glucose, POC 117 70 - 199 mg/dL Blood 01/24/2025 4:48 AM CDT 01/24/2025 4:48 AM CDT us Gerry Kearns MD LAB POCT ORDERABLES - D EVICE Final Result Performing Organization Address City/[facility]/[place] [address] * POCT glucose (01/24/2025 12:51 AM CDT) Glucose, POC 110 70 - 199 mg/dL Blood 01/24/2025 12:5 1 AM CDT 01/24/2025 12:51 AM CDT us Gerry Kearns MD LAB POCT ORDERABLES - D EVICE Final Result Performing Organization Address City/[facility]/[place] [address] * (ABNORMAL) eGFR (01/23/2025 9:05 PM CDT) eGFR 46(L) >=60 mL/min/1. 73 m2 Comment: Interpretive Data Reference Interval Normal >/= 90 mL/min/1.73m2 Mildly decreased* 60 - 89 mL/min/1.73m2 Mildly to moderately decreased 45 - 59 mL/min/1.73m2 Moderately to severely decreased 30 - 44 mL/min/1.73m2 Severely decreased 15 - 29 mL/min/1.73m2 Kidney Failure < 15 mL/min/1.73m2 *Relative to young adult level Estimated glomerular filtration rate is determined by the 2020 CKD-EPI equation recommended by the National Kidney Foundation (A Unifying Approach to GFR Estimation: Recommendations of the NKF-ASK Task Force on Reassessing the Inclusion of Race in Diagnosing Kidney Disease, JASN 2020). The CKD-EPI equation should not be used for patients with unstable renal function and has not been validated in children and those over 70. Current interpretive data was last reviewed 2021. Blood 01/23/2025 9:05 PM CDT 01/23/2025 9:37 PM CDT us Gerry Kearns MD LAB BLOOD ORDERABLES Fi nal Result [facility] Department [place] [address] * (ABNORMAL) CBC without differential (01/23/2025 9:05 PM CDT) WBC 10.34(H) 3.80 - 9.90 K/cumm Hgb 8.8(L) 11.9 - 15.5 g/dL [facility] Hct 28.5(L) 35.6 - 45.5 % [facility] Plt 400 150 - 400 K/cumm [facility] MPV 9.8 9.1 - 12.3 fL [facility] RBC 3.32(L) 3.90 - 5.20 M/cumm [facility] MCV 85.8 81.3 - 96.4 fL [facility] MCH 26.5(L) 27.1 - 33.3 pg [facility] MCHC 30.9(L) 32.3 - 35.7 g/dL [facility] RDW CV 16.5(H) 11.1 - 14.9 % [facility] RDW SD 52.4(H) 35.7 - 48.1 fL [facility] NRBC abs 0.00 0.00 - 0.01 K/cumm [facility] Blood 01/23/2025 9:05 PM CDT 01/23/2025 9:37 PM CDT Gerry Kearns MD LAB BLOOD ORDERAB[place] [address] * Phosphorus (01/23/2025 9:05 PM CDT) Phosphorus, pl 3.5 2.3 - 4.5 mg/dL Blood 01/23/2025 9:05 PM CDT 01/23/2025 9:37 PM CDT Gerry Kearns MD LAB BLOOD ORDERABLES Fi nal Result Performing Organization Address City/[facility] Co de Phone Number [facility] [place] [address] * Magnesium (01/23/2025 9:05 PM CDT) Magnesium 2.1 1.4 - 2.5 mg/dL Blood 01/23/2025 9:05 PM CDT 01/23/2025 9:37 PM CDT Gerry Kearns MD LAB BLOOD ORDERABLES Fi nal Result Performing Organization Address [facility] Co de Phone Number [facility] [place] [address] * (ABNORMAL) Basic metabolic panel (01/23/2025 9:05 PM CDT) Sodium 140 135 - 145 mmol/L Potassium, pl 3.2(L) 3.3 - 4.9 mmol/L [facility] Chloride 101 97 - 110 mmol/L [facility] CO2 23 22 - 32 mmol/L [facility] Anion gap 16(H) 2 - 15 mmol/L [facility] BUN 11 6 - 25 mg/dL [facility] Creatinine 1.42(H) 0.60 - 1.10 mg/dL [facility] Glucose 102 70 - 199 mg/dL [facility] Comment: Interpretive Data Fasting glucose >/= 126 mg/dl is diagnostic for diabetes. Fasting is defined as no caloric intake for at least 8 hours. Fasting glucose between 100 mg/dl to 125 mg/dl is diagnostic of prediabetes. In a patient with classic symptoms of hyperglycemia or hyperglycemic crisis, a random glucose >/= 200 mg/dl is diagnostic for diabetes. In the absence of unequivocal hyperglycemia, results should be confirmed by repeat testing. The classification and Diagnosis of Diabetes Diabetes Care 202; 46: S19-S40. Current interpretive data was last revised 2022. Calcium 10.1 8.5 - 10.3 mg/dL [facility] Blood 01/23/2025 9:05 PM CDT 01/23/2025 9:37 PM CDT us Gerry Kearns MD LAB BLOOD ORDERABLES Fi nal Result [facility] Department [place] [address] * POCT glucose (01/23/2025 9:02 PM CDT) Glucose, POC 105 70 - 199 mg/dL Blood 01/23/2025 9:02 PM CDT 01/23/2025 9:02 PM CDT Gerry Kearns MD LAB POCT ORDERABLES - D EVICE Final Result Performing Organization Address [facility]/ZIP Co de Phone [facility] [place] [address] * POCT glucose (01/23/2025 4:07 PM CDT) Glucose, POC 87 70 - 199 mg/dL Blood 01/23/2025 4:07 PM CDT 01/23/2025 4:07 PM CDT Gerry Kearns MD LAB POCT ORDERABLES - [place] [address] * POCT glucose (01/23/2025 12:17 PM CDT) Glucose, POC 105 70 - 199 mg/dL Blood 01/23/2025 12:1 7 PM CDT 01/23/2025 12:17 PM CDT Gerry Kearns MD LAB POCT ORDERABLES - D EVICE Final Result Performing Organization Address City/[facility] Co de Phone Number [facility] [place] [address] * (ABNORMAL) eGFR (01/23/2025 9:46 AM CDT) Pathologist [facility] [place] eGFR 45(L) >=60 mL/min/1. 73 m2 Comment: Interpretive Data Reference Interval Normal >/= 90 mL/min/1.73m2 Mildly decreased* 60 - 89 mL/min/1.73m2 Mildly to moderately decreased 45 - 59 mL/min/1.73m2 Moderately to severely decreased 30 - 44 mL/min/1.73m2 Severely decreased 15 - 29 mL/min/1.73m2 Kidney Failure < 15 mL/min/1.73m2 *Relative to young adult level Estimated glomerular filtration rate is determined by the 2020 CKD-EPI equation recommended by the National Kidney Foundation (A Unifying Approach to GFR Estimation: Recommendations of the NKF-ASK Task Force on Reassessing the Inclusion of Race in Diagnosing Kidney Disease, JASN 2020). The CKD-EPI equation should not be used for patients with unstable renal function and has not been validated in children and those over 70. Current interpretive data was last reviewed 2021. Blood 01/23/2025 9:46 AM CDT 01/23/2025 10:25 AM CDT us Gerry Kearns MD LAB BLOOD ORDERABLES Fi nal Result Performing Organization Address City/[facility]/ZIP Co de Phone Number [facility] Department [place] [address] * (ABNORMAL) CBC without differential (01/23/2025 9:46 AM CDT) WBC 8.68 3.80 - 9.90 K/cumm Hgb 8.4(L) 11.9 - 15.5 g/dL [facility] Hct 27.5(L) 35.6 - 45.5 % [facility] Plt 359 150 - 400 K/cumm [facility] MPV 9.7 9.1 - 12.3 fL [facility] RBC 3.15(L) 3.90 - 5.20 M/cumm [facility] MCV 87.3 81.3 - 96.4 fL [facility] MCH 26.7(L) 27.1 - 33.3 pg [facility] MCHC 30.5(L) 32.3 - 35.7 g/dL [facility] RDW CV 16.5(H) 11.1 - 14.9 % [facility] RDW SD 52.5(H) 35.7 - 48.1 fL [facility] NRBC abs 0.00 0.00 - 0.01 K/cumm [facility] Blood 01/23/2025 9:46 AM CDT 01/23/2025 10:22 AM CDT us Gerry Kearns MD LAB BLOOD ORDERABLES Fi nal Result Performing Organization Address City/[facility]/ZIP Co de Phone Number [facility] [place] [address] * Phosphorus (01/23/2025 9:46 AM CDT) [facility] Phosphorus, pl 4.2 2.3 - 4.5 mg/dL Blood 01/23/2025 9:46 AM CDT 01/23/2025 10:25 AM CDT Gerry Kearns MD LAB BLOOD ORDERABLES Fi nal Result Performing Organization Address [facility] Co de Phone Number [facility] [place] [address] * Magnesium (01/23/2025 9:46 AM CDT) [facility] Magnesium 2.1 1.4 - 2.5 mg/dL Blood 01/23/2025 9:46 AM CDT 01/23/2025 10:25 AM CDT Gerry Kearns MD LAB BLOOD ORDERABLES Fi nal Result Performing Organization Address [facility] de Phone Number [facility] [place] [address] * (ABNORMAL) Basic metabolic panel (01/23/2025 9:46 AM CDT) [facility] Sodium 139 135 - 145 mmol/L Potassium, pl 3.9 3.3 - 4.9 mmol/L [facility] Chloride 104 97 - 110 mmol/L [facility] CO2 24 22 - 32 mmol/L [facility] Anion gap 11 2 - 15 mmol/L [facility] BUN 11 6 - 25 mg/dL [facility] Creatinine 1.46(H) 0.60 - 1.10 mg/dL [facility] Glucose 100 70 - 199 mg/dL [facility] Comment: Interpretive Data Fasting glucose >/= 126 mg/dl is diagnostic for diabetes. Fasting is defined as no caloric intake for at least 8 hours. Fasting glucose between 100 mg/dl to 125 mg/dl is diagnostic of prediabetes. In a patient with classic symptoms of hyperglycemia or hyperglycemic crisis, a random glucose >/= 200 mg/dl is diagnostic for diabetes. In the absence of unequivocal hyperglycemia, results should be confirmed by repeat testing. The classification and Diagnosis of Diabetes Diabetes Care 2021; 46: S19-S40. Current interpretive data was last revised 2022. Calcium 10.2 8.5 - 10.3 mg/dL [facility] Blood 01/23/2025 9:46 AM CDT 01/23/2025 10:25 AM CDT Gerry Kearns MD LAB BLOOD ORDERABLES Fi nal Result Performing Organization Address [facility] Co de Phone Number [facility] Department [place] [address] * POCT glucose (01/23/2025 8:13 AM CDT) Glucose, POC 104 70 - 199 mg/dL Blood 01/23/2025 8:13 AM CDT 01/23/2025 8:13 AM CDT us Gerry Kearns MD LAB POCT ORDERABLES - D EVICE Final Result Performing Organization Address [facility] Co de Phone Number [facility] [place] [address] * POCT glucose (01/23/2025 4:42 AM CDT) Glucose, POC 96 70 - 199 mg/dL Blood 01/23/2025 4:42 AM CDT 01/23/2025 4:42 AM CDT Gerry Kearns MD LAB POCT ORDERABLES - D EVICE Final Result Performing Organization Address [facility] [place] [address] * POCT glucose (01/23/2025 12:07 AM CDT) Glucose, POC 109 70 - 199 mg/dL Blood 01/23/2025 12:0 7 AM CDT 01/23/2025 12:07 AM CDT us Gerry Kearns MD LAB POCT ORDERABLES - [place] [address] * POCT glucose (01/22/2025 9:32 PM CDT) Glucose, POC 101 70 - 199 mg/dL Blood 01/22/2025 9:32 PM CDT 01/22/2025 9:32 PM CDT us Gerry Kearns MD LAB POCT ORDERABLES - D EVICE Final Result Performing Organization Address City/[facility] [place] [address] * POCT glucose (01/22/2025 12:25 PM CDT) Glucose, POC 113 70 - 199 mg/dL Blood 01/22/2025 12:2 5 PM CDT 01/22/2025 12:25 PM CDT Gerry Kearns MD LAB POCT ORDERABLES - D EVICE Final Result Performing Organization Address City/[facility]/[place] [address] * POCT glucose (01/22/2025 9:00 AM CDT) Glucose, POC 118 70 - 199 mg/dL Blood 01/22/2025 9:00 AM CDT 01/22/2025 9:00 AM CDT Gerry Kearns MD LAB POCT ORDERABLES - D EVICE Final Result Performing Organization Address [facility] Co de Phone Number [facility] [place] [address] * POCT glucose (01/22/2025 4:34 AM CDT) Glucose, POC 111 70 - 199 mg/dL Blood 01/22/2025 4:34 AM CDT 01/22/2025 4:34 AM CDT Gerry Kearns MD LAB POCT ORDERABLES - D EVICE Final Result Performing Organization Address [facility] Co de Phone Number [facility] [place] [address] * POCT glucose (01/22/2025 12:39 AM CDT) [facility] Glucose, POC 103 70 - 199 mg/dL Blood 01/22/2025 12:3 9 AM CDT 01/22/2025 12:39 AM CDT Gerry Kearns MD LAB POCT ORDERABLES - D EVICE Final Result Performing Organization Address [facility] Co de Phone Number [facility] [place] [address] * (ABNORMAL) eGFR (01/21/2025 8:27 PM CDT) [facility] eGFR 42(L) >=60 mL/min/1. 73 m2 Comment: Interpretive Data Reference Interval Normal >/= 90 mL/min/1.73m2 Mildly decreased* 60 - 89 mL/min/1.73m2 Mildly to moderately decreased 45 - 59 mL/min/1.73m2 Moderately to severely decreased 30 - 44 mL/min/1.73m2 Severely decreased 15 - 29 mL/min/1.73m2 Kidney Failure < 15 mL/min/1.73m2 *Relative to young adult level Estimated glomerular filtration rate is determined by the 2020 CKD-EPI equation recommended by the National Kidney Foundation (A Unifying Approach to GFR Estimation: Recommendations of the NKF-ASK Task Force on Reassessing the Inclusion of Race in Diagnosing Kidney Disease, JASN 2020). The CKD-EPI equation should not be used for patients with unstable renal function and has not been validated in children and those over 70. Current interpretive data was last reviewed 2021. Blood 01/21/2025 8:27 PM CDT 01/21/2025 9:09 PM CDT us Rand Pablo MD LAB BLOOD ORDERABLES Final Result [facility] [place] [address] * (ABNORMAL) CBC without differential (01/21/2025 8:27 PM CDT) WBC 11.13(H) 3.80 - 9.90 K/cumm Hgb 8.1(L) 11.9 - 15.5 g/dL [facility] Hct 26.9(L) 35.6 - 45.5 % [facility] Plt 359 150 - 400 K/cumm [facility] MPV 10.0 9.1 - 12.3 fL [facility] RBC 3.09(L) 3.90 - 5.20 M/cumm [facility] MCV 87.1 81.3 - 96.4 fL [facility] MCH 26.2(L) 27.1 - 33.3 pg [facility] MCHC 30.1(L) 32.3 - 35.7 g/dL [facility] RDW CV 17.1(H) 11.1 - 14.9 % [facility] RDW SD 54.3(H) 35.7 - 48.1 fL [facility] NRBC abs 0.00 0.00 - 0.01 K/cumm [facility] Blood 01/21/2025 8:27 PM CDT 01/21/2025 9:10 PM CDT Narrative [facility] - 01/21/2025 9:35 PM CDT Obtain POD 1 at 2200. Rand Pablo MD LAB BLOOD ORDERABLES Final Result [facility] [place] [address] * (ABNORMAL) Basic metabolic panel (01/21/2025 8:27 PM CDT) Sodium 141 135 - 145 mmol/L Potassium, pl 3.8 3.3 - 4.9 mmol/L [facility] Chloride 105 97 - 110 mmol/L [facility] CO2 21(L) 22 - 32 mmol/L [facility] Anion gap 15 2 - 15 mmol/L [facility] BUN 11 6 - 25 mg/dL [facility] Creatinine 1.55(H) 0.60 - 1.10 mg/dL [facility] Glucose 90 70 - 199 mg/dL [facility] Comment: Interpretive Data Fasting glucose >/= 126 mg/dl is diagnostic for diabetes. Fasting is defined as no caloric intake for at least 8 hours. Fasting glucose between 100 mg/dl to 125 mg/dl is diagnostic of prediabetes. In a patient with classic symptoms of hyperglycemia or hyperglycemic crisis, a random glucose >/= 200 mg/dl is diagnostic for diabetes. In the absence of unequivocal hyperglycemia, results should be confirmed by repeat testing. The classification and Diagnosis of Diabetes Diabetes Care 202; 46: S19-S40. Current interpretive data was last revised 2022. Calcium 9.8 8.5 - 10.3 mg/dL [facility] Blood 01/21/2025 8:27 PM CDT 01/21/2025 9:09 PM CDT Narrative [facility] - 01/21/2025 10:00 PM CDT Obtain POD 1 at 2200. us Rand Pablo MD LAB BLOOD ORDERABLES Final Result Performing Organization Address [facility] Co de Phone Number [facility] [place] [address] * POCT glucose (01/21/2025 8:11 PM CDT) Glucose, POC 101 70 - 199 mg/dL Blood 01/21/2025 8:11 PM CDT 01/21/2025 8:11 PM CDT us Gerry Kearns MD LAB POCT ORDERABLES - D EVICE Final Result Performing Organization Address [facility] Co de Phone Number [facility] [place] [address] * POCT glucose (01/21/2025 3:43 PM CDT) Glucose, POC 110 70 - 199 mg/dL Blood 01/21/2025 3:43 PM CDT 01/21/2025 3:43 PM CDT us Gerry Kearns MD LAB POCT ORDERABLES - D EVICE Final Result Performing Organization Address [facility] Co de Phone Number [facility] [place] [address] * POCT glucose (01/21/2025 1:13 PM CDT) Glucose, POC 121 70 - 199 mg/dL Blood 01/21/2025 1:13 PM CDT 01/21/2025 1:13 PM CDT Gerry Kearns MD LAB POCT ORDERABLES - D EVICE Final Result Performing Organization Address City/[facility] Co de [facility] [place] [address] * POCT glucose (01/21/2025 4:49 AM CDT) Glucose, POC 135 70 - 199 mg/dL Blood 01/21/2025 4:49 AM CDT 01/21/2025 4:49 AM CDT us Gerry Kearns MD LAB POCT ORDERABLES - D EVICE Final Result Performing Organization Address [facility] Co de Phone Number [facility] [place] [address] * (ABNORMAL) eGFR (01/20/2025 9:40 PM CDT) eGFR 41(L) >=60 mL/min/1. 73 m2 Comment: Interpretive Data Reference Interval Normal >/= 90 mL/min/1.73m2 Mildly decreased* 60 - 89 mL/min/1.73m2 Mildly to moderately decreased 45 - 59 mL/min/1.73m2 Moderately to severely decreased 30 - 44 mL/min/1.73m2 Severely decreased 15 - 29 mL/min/1.73m2 Kidney Failure < 15 mL/min/1.73m2 *Relative to young adult level Estimated glomerular filtration rate is determined by the 2020 CKD-EPI equation recommended by the National Kidney Foundation (A Unifying Approach to GFR Estimation: Recommendations of the NKF-ASK Task Force on Reassessing the Inclusion of Race in Diagnosing Kidney Disease, JASN 2020). The CKD-EPI equation should not be used for patients with unstable renal function and has not been validated in children and those over 70. Current interpretive data was last reviewed 2021. Blood 01/20/2025 9:40 PM CDT 01/20/2025 10:16 PM CDT us Rand Pablo MD LAB BLOOD ORDERABLES Final Result [facility] Department [place] [address] * (ABNORMAL) CBC without differential (01/20/2025 9:40 PM CDT) [facility] WBC 17.75(H) 3.80 - 9.90 K/cumm Hgb 9.3(L) 11.9 - 15.5 g/dL [facility] Hct 30.0(L) 35.6 - 45.5 % [facility] Plt 354 150 - 400 K/cumm [facility] MPV 9.8 9.1 - 12.3 fL [facility] RBC 3.52(L) 3.90 - 5.20 M/cumm [facility] MCV 85.2 81.3 - 96.4 fL [facility] MCH 26.4(L) 27.1 - 33.3 pg [facility] MCHC 31.0(L) 32.3 - 35.7 g/dL [facility] RDW CV 16.8(H) 11.1 - 14.9 % [facility] RDW SD 52.3(H) 35.7 - 48.1 fL [facility] NRBC abs 0.00 0.00 - 0.01 K/cumm [facility] Blood 01/20/2025 9:40 PM CDT 01/20/2025 10:16 PM CDT Narrative [facility] - 01/20/2025 10:24 PM CDT Obtain POD 0 at 2200. us Rand Pablo MD LAB BLOOD ORDERABLES Final Result [facility] Department [place] [address] * (ABNORMAL) Basic metabolic panel (01/20/2025 9:40 PM CDT) [facility] Sodium 142 135 - 145 mmol/L Potassium, pl 3.9 3.3 - 4.9 mmol/L [facility] Chloride 107 97 - 110 mmol/L [facility] CO2 22 22 - 32 mmol/L [facility] Anion gap 13 2 - 15 mmol/L [facility] BUN 11 6 - 25 mg/dL [facility] Creatinine 1.59(H) 0.60 - 1.10 mg/dL [facility] Glucose 166 70 - 199 mg/dL [facility] Comment: Interpretive Data Fasting glucose >/= 126 mg/dl is diagnostic for diabetes. Fasting is defined as no caloric intake for at least 8 hours. Fasting glucose between 100 mg/dl to 125 mg/dl is diagnostic of prediabetes. In a patient with classic symptoms of hyperglycemia or hyperglycemic crisis, a random glucose >/= 200 mg/dl is diagnostic for diabetes. In the absence of unequivocal hyperglycemia, results should be confirmed by repeat testing. The classification and Diagnosis of Diabetes Diabetes Care 2021; 46: S19-S40. Current interpretive data was last revised 2022. Calcium 10.1 8.5 - 10.3 mg/dL [facility] Blood 01/20/2025 9:40 PM CDT 01/20/2025 10:16 PM CDT Narrative [facility] - 01/20/2025 10:42 PM CDT Obtain POD 0 at 2200. us Rand Pablo MD LAB BLOOD ORDERABLES Final Result Performing Organization Address City/[facility]/ZIP Co de Phone Number [facility] [place] [address] * POCT glucose (01/20/2025 9:33 PM CDT) [facility] Glucose, POC 168 70 - 199 mg/dL Blood 01/20/2025 9:33 PM CDT 01/20/2025 9:33 PM CDT Rand Pablo MD LAB POCT O RDERABLES - DEVICE Final Result Performing Organization Address City/[facility]/ZIP Co de Phone Number [facility] Department [place] [address] * POCT glucose (01/20/2025 6:23 PM CDT) Glucose, POC 154 70 - 199 mg/dL Blood 01/20/2025 6:23 PM CDT 01/20/2025 6:23 PM CDT Rand Pablo MD LAB POCT O RDERABLES - DEVICE Final Result [facility] [place] [address] * Surgical pathology (01/20/2025 3:51 PM CDT) Tissue (Colon, Resection, Non-tumor) 01/20/2025 3:51 PM CDT Narrative PATHOLOGY [facility] - 01/26/2025 4:11 PM CDT EPIC results best viewed via link to PDF [facility] [place] [address] Note to Patients: This report may contain a detailed description of human tissue sent by a health care provider to the laboratory for pathologic evaluation. The content of this report is essential for diagnosis and may provide important critical findings. This information may be unfamiliar to patients to review without a medical professional present. It is advised that the patient review this report in the presence of a health care provider who can answer questions and explain the details. SURGICAL PATHOLOGY REPORT FINAL Patient Name: NINA MACIAS Gender: F : 1980 (Age: 44) Address: [address] [place], [place] [id number] Hospital #: [id number] Taken:01/20/2025 Received:01/20/2025 Reported: 01/26/2025 Patient Type: [facility] Inpatient Service: Medical Location: [facility] 966 Physician(s): MD Byron [place] M.D Cassandra D. Fritz, M.D. Gerry Thorne MD Diagnosis: Colon, sigmoid, resection - Mucosal ulceration extending into fistula tract with acute and chronic inflammation in a background of multiple diverticula with abscess formation - Surgical margins viable [facility]/01/26/2025 13:43 By this signature, I attest that the above diagnosis is based upon my personal examination of the slides(and/or other material indicated in the diagnosis). Brien Villa M.D. Report Electronically Reviewed and Signed Out By Brien Villa M.D. 01/26/2025 16:11:45 Rashad Fragoso M.D. History: The patient is a 44 year old woman with history of colovesical fistula diverticulitis. Operative procedure: Resection sigmoid colon Specimen(s) Received: A: Sigmoid colon Gross Description: Received in formalin labeled with patient identifiers sigmoid colon is an unoriented segment of colon with one open end, inked blue and one stapled end, inked black that measures 24.0 cm in length by 1.7 to 3.5 cm in diameter. The pericolic fat is rivera-simental to hemorrhagic and indurated and extends 6.7 cm from wall. The serosa is rivera-brown and irregular with 7.5 cm in length roughened segment (inked orange) that comes within 10.5 cm from the open end in 7.5 cm from the stapled end. Within the roughened segment is 0.9 x 0.8 cm area of rivera-simental dusky mucosa that is probe patent into the lumen, inked green. The probe patent area comes within 7.0 cm from the stapled end and 12.3 cm from the open end. Roughened area the wall is thickened up to 1.6 cm in thickness and is fibrotic and congested. Within the roughened area within the bowel wall is a 1.2 x 0.3 cm cavitary area and a 0.9 x 0.7 cm yellow-green softened area resembling a abscess. The mucosa is rivera-pink with multiple diverticula. The uninvolved bowel wall measures 0.4 cm in average thickness. Banquet Supervisor sections are submitted. Gross photographs are obtained. A1 Open end A2 Stapled end A3-A4 Probe patent opening A5 Cavitary area within thickened and roughened bowel wall A6 Putative abscess A7-A8 Diverticula Jar 3. rxr/01/21/2025 09:40 PA(s): Anamika Woodson, MS, PA(ASCP)CM By this signature, I attest that the above diagnosis is based upon my personal examination of the slides(and/or other material). Addenda/Procedures The performance characteristics of some immunohistochemical stains, fluorescence in-situ hybridization tests and immunophenotyping by flow cytometry cited in this report (if any) were determined by the Surgical Pathology and Flow Cytometry Departments at [facility] as part of an ongoing quality assurance qa lab analyst program and in compliance with federally mandated regulations drawn from the Clinical Laboratory Improvement Act of 1988 (CLIA '88). Some of these tests rely on the use of analyte specific reagents and are subject to specific labeling requirements by the US Food and Drug Administration. Such diagnostic tests may only be performed in a facility that is certified by the Department of Health and Human Services as a high complexity laboratory under CLIA '88. The FDA has determined that such clearance or approval is not necessary. This test is used for clinical purposes. It should not be regarded as investigational or for research. Nevertheless, federal rules concerning the medical use of analyte specific reagents require that the following disclaimer be attached to the report: This test was developed and its performance characteristics determined by the Surgical Pathology and Flow Cytometry Departments of [facility]. It has not been cleared or approved by the U. S. Food and Drug Administration. IMAGES AND SCANNED DOCUMENTS, IF INCLUDED, ONLY VIEWABLE IN PDF VERSION OF REPORT us Gerry Kearns MD LAB PATHOLOGY ORDERABLE S Final Result PATHOLOGY [facility] 3rd Floor [place], [place] [phone] * POCT glucose (01/20/2025 3:49 PM CDT) Glucose, POC 148 70 - 199 mg/dL Blood 01/20/2025 3:49 PM CDT 01/20/2025 3:49 PM CDT Rand Pablo MD LAB POCT O RDERABLES - DEVICE Final Result [facility] [place] [address] * MT AN ELECTIVE ENDOTRACHEAL AIRWAY, MT AN PROCEDURE PLACEHOLDER (01/20/2025 2:20 PM CDT) Narrative Jia Connell CRNA - 01/20/2025 2:20 PM CDT Jia Connell CRNA 01/20/2025 2:26 PM Airway Patient location: OR Urgency: elective Indications for airway management: anesthesia Difficult airway: no Staff: Supervising provider: Bernarda Corey MD Placed by: TOUR BUS DRIVER: Jia Connell CRNA Emergent airway documentation: Risks and benefits discussed: yes Consent obtained: yes Consent given by: patient Airway prep: Preoxygenated: yes Patient position: sniffing and ramp MILS maintained throughout: yes Mask difficulty assessment: 0 - not attempted Spontaneous ventilation during airway: present Sedation level during airway: moderate (conscious sedation) Final airway details: Final airway type: endotracheal airway Tube type: ETT ETT size: 6.5 mm Cuffed: yes Technique used for successful ETT placement: flexible bronchoscopy Devices/Methods used in placement: intubating stylet and bronchoscope Insertion site: oral Cuff inflated with: air ETT to teeth: 19.5 cm Placement verified by: auscultation, bronchoscopy and CO2 detection Airway secured with: silk tape Number of attempts: 1 Additional comments: Pt. With spontaneous breathing during fiberoptic placement and 6.5 ETT. Pt sedated with precedex and versed. Cords easily visualized with scope. Scope/ tube easily passed through cords. Tube depth checked with scope. Tube pulled back to 19.5 at the teeth and secured. us Bernarda Corey MD ANESTHESIA ORDERABLES Edited Result - Final * POCT glucose (01/20/2025 1:10 PM CDT) Glucose, POC 92 70 - 199 mg/dL Blood 01/20/2025 1:10 PM CDT 01/20/2025 1:10 PM CDT us Rand Pablo MD LAB POCT O RDERABLES - DEVICE Final Result Performing Organization Address City/[facility]/ZIP Co de Phone Number [facility] [place] [address] * POCT glucose (01/20/2025 7:59 AM CDT) Glucose, POC 112 70 - 199 mg/dL Blood 01/20/2025 7:59 AM CDT 01/20/2025 7:59 AM CDT us Rand Pablo MD LAB POCT O RDERABLES - DEVICE Final Result Performing Organization Address [facility] Co de Phone Number [facility] [place] [address] * (ABNORMAL) eGFR (01/20/2025 4:53 AM CDT) [facility] eGFR 37(L) >=60 mL/min/1. 73 m2 Comment: Interpretive Data Reference Interval Normal >/= 90 mL/min/1.73m2 Mildly decreased* 60 - 89 mL/min/1.73m2 Mildly to moderately decreased 45 - 59 mL/min/1.73m2 Moderately to severely decreased 30 - 44 mL/min/1.73m2 Severely decreased 15 - 29 mL/min/1.73m2 Kidney Failure < 15 mL/min/1.73m2 *Relative to young adult level Estimated glomerular filtration rate is determined by the 2020 CKD-EPI equation recommended by the National Kidney Foundation (A Unifying Approach to GFR Estimation: Recommendations of the NKF-ASK Task Force on Reassessing the Inclusion of Race in Diagnosing Kidney Disease, JASN 2020). The CKD-EPI equation should not be used for patients with unstable renal function and has not been validated in children and those over 70. Current interpretive data was last reviewed 2021. Blood 01/20/2025 4:53 AM CDT 01/20/2025 5:34 AM CDT us Shelia Campa MD LAB BLOOD ORDERABLES Final Resu lt [facility] [place] [address] * Differential, auto (01/20/2025 4:53 AM CDT) Neutrophil abs 5.42 1.50 - 6.50 K/cumm Imm gran abs 0.09 0.00 - 0.10 K/cumm [facility] Lymphocyte abs 1.27 0.80 - 3.30 K/cumm [facility] Monocyte abs 0.44 0.20 - 0.80 K/cumm [facility] Eosinophil abs 0.29 0.00 - 0.50 K/cumm [facility] Basophil abs 0.04 0.00 - 0.10 K/cumm [facility] Neutrophil pct 71.9 % [facility] Comment: Interpretive Data Percent cell count reference ranges are not reported, since discordance with absolute values may lead to misinterpretation of CBC data. Current Interpretive Data was last revised on 2017. Imm gran pct 1.2 % [facility] Comment: Interpretive Data Percent cell count reference ranges are not reported, since discordance with absolute values may lead to misinterpretation of CBC data. Current Interpretive Data was last revised on 2017. Lymphocyte pct 16.8 % [facility] Comment: Interpretive Data Percent cell count reference ranges are not reported, since discordance with absolute values may lead to misinterpretation of CBC data. Current Interpretive Data was last revised on 2017. Monocyte pct 5.8 % [facility] Comment: Interpretive Data Percent cell count reference ranges are not reported, since discordance with absolute values may lead to misinterpretation of CBC data. Current Interpretive Data was last revised on 2017. Eosinophil pct 3.8 % [facility] Comment: Interpretive Data Percent cell count reference ranges are not reported, since discordance with absolute values may lead to misinterpretation of CBC data. Current Interpretive Data was last revised on 2017. Basophil pct 0.5 % [facility] Comment: Interpretive Data Percent cell count reference ranges are not reported, since discordance with absolute values may lead to misinterpretation of CBC data. Current Interpretive Data was last revised on 2017. Blood 01/20/2025 4:53 AM CDT 01/20/2025 5:34 AM CDT Shelia Campa MD LAB BLOOD ORDERABLES Final Resu lt Performing Organization Address [facility] Co de Phone Number [facility] [place] [address] * (ABNORMAL) CBC with auto differential (01/20/2025 4:53 AM CDT) WBC 7.55 3.80 - 9.90 K/cumm Hgb 8.1(L) 11.9 - 15.5 g/dL [facility] Hct 26.1(L) 35.6 - 45.5 % [facility] Plt 332 150 - 400 K/cumm [facility] MPV 9.6 9.1 - 12.3 fL [facility] RBC 3.06(L) 3.90 - 5.20 M/cumm [facility] MCV 85.3 81.3 - 96.4 fL [facility] MCH 26.5(L) 27.1 - 33.3 pg [facility] MCHC 31.0(L) 32.3 - 35.7 g/dL [facility] RDW CV 17.2(H) 11.1 - 14.9 % [facility] RDW SD 53.4(H) 35.7 - 48.1 fL [facility] NRBC abs 0.00 0.00 - 0.01 K/cumm [facility] Blood 01/20/2025 4:53 AM CDT 01/20/2025 5:34 AM CDT Shelia Campa MD LAB BLOOD ORDERABLES Final Resu lt Performing Organization Address City/[facility] Co de Phone Number [facility] [place] [address] * (ABNORMAL) Phosphorus (01/20/2025 4:53 AM CDT) Pathologist [facility] Phosphorus, pl 4.8(H) 2.3 - 4.5 mg/dL Blood 01/20/2025 4:53 AM CDT 01/20/2025 5:34 AM CDT Shelia Campa MD LAB BLOOD ORDERABLES Final Resu lt Performing Organization Address City/[facility]/ZIP Co de Phone Number [facility] [place] [address] * Magnesium (01/20/2025 4:53 AM CDT) [facility] Magnesium 2.2 1.4 - 2.5 mg/dL Blood 01/20/2025 4:53 AM CDT 01/20/2025 5:34 AM CDT Rand Pablo MD LAB BLOOD ORDERABLES Final Result Performing Organization Address City/[facility] de Phone Number [facility] Department [place] [address] * (ABNORMAL) Basic metabolic panel (01/20/2025 4:53 AM CDT) [facility] Sodium 140 135 - 145 mmol/L Potassium, pl 3.5 3.3 - 4.9 mmol/L [facility] Chloride 106 97 - 110 mmol/L [facility] CO2 23 22 - 32 mmol/L [facility] Anion gap 11 2 - 15 mmol/L [facility] BUN 12 6 - 25 mg/dL [facility] Creatinine 1.71(H) 0.60 - 1.10 mg/dL [facility] Glucose 113 70 - 199 mg/dL [facility] Comment: Interpretive Data Fasting glucose >/= 126 mg/dl is diagnostic for diabetes. Fasting is defined as no caloric intake for at least 8 hours. Fasting glucose between 100 mg/dl to 125 mg/dl is diagnostic of prediabetes. In a patient with classic symptoms of hyperglycemia or hyperglycemic crisis, a random glucose >/= 200 mg/dl is diagnostic for diabetes. In the absence of unequivocal hyperglycemia, results should be confirmed by repeat testing. The classification and Diagnosis of Diabetes Diabetes Care 2021; 46: S19-S40. Current interpretive data was last revised 2022. Calcium 10.1 8.5 - 10.3 mg/dL [facility] Blood 01/20/2025 4:53 AM CDT 01/20/2025 5:34 AM CDT Shelia Campa MD LAB BLOOD ORDERABLES Final Resu lt Performing Organization Address [facility] Co de Phone Number [facility] [place] [address] * POCT glucose (01/20/2025 4:37 AM CDT) Glucose, POC 120 70 - 199 mg/dL Blood 01/20/2025 4:37 AM CDT 01/20/2025 4:37 AM CDT Rand Pablo MD LAB POCT O RDERABLES - DEVICE Final Result Performing Organization Address [facility] Co de Phone Number [facility] [place] [address] * POCT glucose (01/20/2025 12:25 AM CDT) Glucose, POC 109 70 - 199 mg/dL Blood 01/20/2025 12:2 5 AM CDT 01/20/2025 12:25 AM CDT Shelia Campa MD LAB POCT ORDERABLES - DEVICE Fi nal Result Performing Organization Address [facility] Co de Phone Number [facility] [place] [address] * POCT glucose (01/19/2025 8:05 PM CDT) Glucose, POC 84 70 - 199 mg/dL Blood 01/19/2025 8:05 PM CDT 01/19/2025 8:05 PM CDT Shelia Campa MD LAB POCT ORDERABLES - DEVICE Fi nal Result Performing Organization Address [facility] Co de Phone Number [facility] [place] [address] * POCT glucose (01/19/2025 3:39 PM CDT) Pathologist [facility] [place] Glucose, POC 89 70 - 199 mg/dL Blood 01/19/2025 3:39 PM CDT 01/19/2025 3:39 PM CDT Shelia Campa MD LAB POCT ORDERABLES - DEVICE Fi nal Result Performing Organization Address [facility] de Phone Number [facility] [place] [address] * hCG, urine, qualitative (01/19/2025 2:55 PM CDT) [facility] HCG, ur Negative Negative Urine 01/19/2025 2:55 PM CDT 01/19/2025 3:18 PM CDT Tory Matute NP LAB URINE ORDERABLES Fin al Result Performing Organization Address [facility] [place] [address] * Type and screen (01/19/2025 1:25 PM CDT) Pathologist [facility] [place] ABO Rh O Positive Kadie, indirect Negative [facility] Blood 01/19/2025 1:25 PM CDT 01/19/2025 1:40 PM CDT Narrative [facility] - 01/19/2025 2:36 PM CDT Has the patient had Daratumumab or Isatuximab in the past 6 months?->Unknown Tory Matute HUMAN RESOURCE ADVISOR LAB BLOOD BANK TEST KARO WARREN Final Result Performing Organization Address [facility] Co de Phone Number [facility] [place] [address] * POCT glucose (01/19/2025 12:10 PM CDT) Glucose, POC 128 70 - 199 mg/dL Blood 01/19/2025 12:1 0 PM CDT 01/19/2025 12:10 PM CDT Shelia Campa MD LAB POCT ORDERABLES - DEVICE Fi nal Result Performing Organization Address [facility] de Phone Number [facility] [place] [address] * POCT glucose (01/19/2025 10:28 AM CDT) [facility] Signature Glucose, POC 149 70 - 199 mg/dL Blood 01/19/2025 10:2 8 AM CDT 01/19/2025 10:28 AM CDT Shelia Campa MD LAB POCT ORDERABLES - DEVICE Fi nal Result Performing Organization Address [facility] [place] [address] * (ABNORMAL) eGFR (01/19/2025 5:22 AM CDT) eGFR 33(L) >=60 mL/min/1. 73 m2 Comment: Interpretive Data Reference Interval Normal >/= 90 mL/min/1.73m2 Mildly decreased* 60 - 89 mL/min/1.73m2 Mildly to moderately decreased 45 - 59 mL/min/1.73m2 Moderately to severely decreased 30 - 44 mL/min/1.73m2 Severely decreased 15 - 29 mL/min/1.73m2 Kidney Failure < 15 mL/min/1.73m2 *Relative to young adult level Estimated glomerular filtration rate is determined by the 2020 CKD-EPI equation recommended by the National Kidney Foundation (A Unifying Approach to GFR Estimation: Recommendations of the NKF-ASK Task Force on Reassessing the Inclusion of Race in Diagnosing Kidney Disease, JASN 202). The CKD-EPI equation should not be used for patients with unstable renal function and has not been validated in children and those over 70. Current interpretive data was last reviewed 2021. Blood 01/19/2025 5:22 AM CDT 01/19/2025 6:20 AM CDT us Shelia Campa MD LAB BLOOD ORDERABLES Final Resu lt [facility] Department [place] [address] * (ABNORMAL) Differential, auto (01/19/2025 5:22 AM CDT) Neutrophil abs 5.06 1.50 - 6.50 K/cumm Imm gran abs 0.11(H) 0.00 - 0.10 K/cumm [facility] Lymphocyte abs 1.78 0.80 - 3.30 K/cumm [facility] Monocyte abs 0.56 0.20 - 0.80 K/cumm [facility] Eosinophil abs 0.29 0.00 - 0.50 K/cumm [facility] Basophil abs 0.04 0.00 - 0.10 K/cumm [facility] Neutrophil pct 64.6 % [facility] Comment: Interpretive Data Percent cell count reference ranges are not reported, since discordance with absolute values may lead to misinterpretation of CBC data. Current Interpretive Data was last revised on 2017. Imm gran pct 1.4 % [facility] Comment: Interpretive Data Percent cell count reference ranges are not reported, since discordance with absolute values may lead to misinterpretation of CBC data. Current Interpretive Data was last revised on 2017. Lymphocyte pct 22.7 % [facility] Comment: Interpretive Data Percent cell count reference ranges are not reported, since discordance with absolute values may lead to misinterpretation of CBC data. Current Interpretive Data was last revised on 2017. Monocyte pct 7.1 % [facility] Comment: Interpretive Data Percent cell count reference ranges are not reported, since discordance with absolute values may lead to misinterpretation of CBC data. Current Interpretive Data was last revised on 2017. Eosinophil pct 3.7 % [facility] Comment: Interpretive Data Percent cell count reference ranges are not reported, since discordance with absolute values may lead to misinterpretation of CBC data. Current Interpretive Data was last revised on 2017. Basophil pct 0.5 % [facility] Comment: Interpretive Data Percent cell count reference ranges are not reported, since discordance with absolute values may lead to misinterpretation of CBC data. Current Interpretive Data was last revised on 2017. Blood 01/19/2025 5:22 AM CDT 01/19/2025 6:20 AM CDT us Shelia Campa MD LAB BLOOD ORDERABLES Final Resu lt [facility] Department [place] [address] * (ABNORMAL) CBC with auto differential (01/19/2025 5:22 AM CDT) WBC 7.84 3.80 - 9.90 K/cumm Hgb 7.8(L) 11.9 - 15.5 g/dL [facility] Hct 25.6(L) 35.6 - 45.5 % [facility] Plt 323 150 - 400 K/cumm [facility] MPV 9.8 9.1 - 12.3 fL [facility] RBC 2.93(L) 3.90 - 5.20 M/cumm [facility] MCV 87.4 81.3 - 96.4 fL [facility] MCH 26.6(L) 27.1 - 33.3 pg [facility] MCHC 30.5(L) 32.3 - 35.7 g/dL [facility] RDW CV 17.1(H) 11.1 - 14.9 % [facility] RDW SD 54.9(H) 35.7 - 48.1 fL [facility] NRBC abs 0.00 0.00 - 0.01 K/cumm [facility] Blood 01/19/2025 5:22 AM CDT 01/19/2025 6:20 AM CDT Shelia Campa MD LAB BLOOD ORDERABLES Final Resu lt Performing Organization Address City/[facility]/ZIP Co de Phone Number [facility] [place] [address] * (ABNORMAL) Phosphorus (01/19/2025 5:22 AM CDT) Phosphorus, pl 5.5(H) 2.3 - 4.5 mg/dL Blood 01/19/2025 5:22 AM CDT 01/19/2025 6:15 AM CDT Shelia Campa MD LAB BLOOD ORDERABLES Final Resu lt Performing Organization Address City/[facility] Co de Phone Number [facility] [place] [address] * (ABNORMAL) Hepatic function panel (01/19/2025 5:22 AM CDT) Bilirubin, total 0.2 0.1 - 1.2 mg/dL Bilirubin, direct <0.2 0.1 - 0.3 mg/dL [facility] Protein, pl 7.3 6.5 - 8.5 g/dL [facility] Albumin 2.9(L) 3.5 - 5.0 g/dL [facility] Alk phos 92 40 - 130 Units/L [facility] ALT 73(H) 7 - 45 Units/L [facility] AST 76(H) 10 - 45 Units/L [facility] Blood 01/19/2025 5:22 AM CDT 01/19/2025 6:15 AM CDT Shelia Campa MD LAB BLOOD ORDERABLES Final Resu lt [facility] Department [place] [address] * (ABNORMAL) Basic metabolic panel (01/19/2025 5:22 AM CDT) [facility] Sodium 138 135 - 145 mmol/L Potassium, pl 3.8 3.3 - 4.9 mmol/L [facility] Chloride 104 97 - 110 mmol/L [facility] CO2 23 22 - 32 mmol/L [facility] Anion gap 11 2 - 15 mmol/L [facility] BUN 15 6 - 25 mg/dL [facility] Creatinine 1.87(H) 0.60 - 1.10 mg/dL [facility] Glucose 104 70 - 199 mg/dL [facility] Comment: Interpretive Data Fasting glucose >/= 126 mg/dl is diagnostic for diabetes. Fasting is defined as no caloric intake for at least 8 hours. Fasting glucose between 100 mg/dl to 125 mg/dl is diagnostic of prediabetes. In a patient with classic symptoms of hyperglycemia or hyperglycemic crisis, a random glucose >/= 200 mg/dl is diagnostic for diabetes. In the absence of unequivocal hyperglycemia, results should be confirmed by repeat testing. The classification and Diagnosis of Diabetes Diabetes Care 2021; 46: S19-S40. Current interpretive data was last revised 2022. Calcium 10.3 8.5 - 10.3 mg/dL [facility] Blood 01/19/2025 5:22 AM CDT 01/19/2025 6:15 AM CDT Shelia Campa MD LAB BLOOD ORDERABLES Final Resu lt Performing Organization Address [facility] Co de Phone Number [facility] Department [place] [address] * (ABNORMAL) eGFR (01/18/2025 5:54 AM CDT) [facility] eGFR 39(L) >=60 mL/min/1. 73 m2 Comment: Interpretive Data Reference Interval Normal >/= 90 mL/min/1.73m2 Mildly decreased* 60 - 89 mL/min/1.73m2 Mildly to moderately decreased 45 - 59 mL/min/1.73m2 Moderately to severely decreased 30 - 44 mL/min/1.73m2 Severely decreased 15 - 29 mL/min/1.73m2 Kidney Failure < 15 mL/min/1.73m2 *Relative to young adult level Estimated glomerular filtration rate is determined by the 2020 CKD-EPI equation recommended by the National Kidney Foundation (A Unifying Approach to GFR Estimation: Recommendations of the NKF-ASK Task Force on Reassessing the Inclusion of Race in Diagnosing Kidney Disease, JASN 2020). The CKD-EPI equation should not be used for patients with unstable renal function and has not been validated in children and those over 70. Current interpretive data was last reviewed 2021. Blood 01/18/2025 5:54 AM CDT 01/18/2025 6:20 AM CDT us Shelia Campa MD LAB BLOOD ORDERABLES Final Resu lt [facility] Department [place] [address] * Differential, auto (01/18/2025 5:54 AM CDT) [facility] Neutrophil abs 5.83 1.50 - 6.50 K/cumm Imm gran abs 0.10 0.00 - 0.10 K/cumm [facility] Lymphocyte abs 1.61 0.80 - 3.30 K/cumm [facility] Monocyte abs 0.47 0.20 - 0.80 K/cumm [facility] Eosinophil abs 0.37 0.00 - 0.50 K/cumm [facility] Basophil abs 0.03 0.00 - 0.10 K/cumm [facility] Neutrophil pct 69.3 % [facility] Comment: Interpretive Data Percent cell count reference ranges are not reported, since discordance with absolute values may lead to misinterpretation of CBC data. Current Interpretive Data was last revised on 2017. Imm gran pct 1.2 % [facility] Comment: Interpretive Data Percent cell count reference ranges are not reported, since discordance with absolute values may lead to misinterpretation of CBC data. Current Interpretive Data was last revised on 2017. Lymphocyte pct 19.1 % [facility] Comment: Interpretive Data Percent cell count reference ranges are not reported, since discordance with absolute values may lead to misinterpretation of CBC data. Current Interpretive Data was last revised on 2017. Monocyte pct 5.6 % [facility] Comment: Interpretive Data Percent cell count reference ranges are not reported, since discordance with absolute values may lead to misinterpretation of CBC data. Current Interpretive Data was last revised on 2017. Eosinophil pct 4.4 % [facility] Comment: Interpretive Data Percent cell count reference ranges are not reported, since discordance with absolute values may lead to misinterpretation of CBC data. Current Interpretive Data was last revised on 2017. Basophil pct 0.4 % [facility] Comment: Interpretive Data Percent cell count reference ranges are not reported, since discordance with absolute values may lead to misinterpretation of CBC data. Current Interpretive Data was last revised on 2017. Blood 01/18/2025 5:54 AM CDT 01/18/2025 6:20 AM CDT us Shelia Campa MD LAB BLOOD ORDERABLES Final Resu lt [facility] [place] [address] * (ABNORMAL) CBC with auto differential (01/18/2025 5:54 AM CDT) WBC 8.41 3.80 - 9.90 K/cumm Hgb 8.3(L) 11.9 - 15.5 g/dL [facility] Hct 26.0(L) 35.6 - 45.5 % [facility] Plt 319 150 - 400 K/cumm [facility] MPV 9.4 9.1 - 12.3 fL [facility] RBC 3.05(L) 3.90 - 5.20 M/cumm [facility] MCV 85.2 81.3 - 96.4 fL [facility] MCH 27.2 27.1 - 33.3 pg [facility] MCHC 31.9(L) 32.3 - 35.7 g/dL [facility] RDW CV 16.9(H) 11.1 - 14.9 % [facility] RDW SD 52.6(H) 35.7 - 48.1 fL [facility] NRBC abs 0.00 0.00 - 0.01 K/cumm [facility] Blood 01/18/2025 5:54 AM CDT 01/18/2025 6:20 AM CDT Shelia Campa MD LAB BLOOD ORDERABLES Final Resu lt Performing Organization Address City/[facility]/ZIP Co de Phone Number [facility] [place] [address] * (ABNORMAL) Phosphorus (01/18/2025 5:54 AM CDT) Pathologist [facility] [place] Phosphorus, pl 4.8(H) 2.3 - 4.5 mg/dL Blood 01/18/2025 5:54 AM CDT 01/18/2025 6:20 AM CDT Shelia Campa MD LAB BLOOD ORDERABLES Final Resu lt [facility] Department [place] [address] * (ABNORMAL) Basic metabolic panel (01/18/2025 5:54 AM CDT) [facility] Sodium 139 135 - 145 mmol/L Potassium, pl 3.9 3.3 - 4.9 mmol/L [facility] Chloride 104 97 - 110 mmol/L [facility] CO2 23 22 - 32 mmol/L [facility] Anion gap 12 2 - 15 mmol/L [facility] BUN 14 6 - 25 mg/dL [facility] Creatinine 1.64(H) 0.60 - 1.10 mg/dL [facility] Glucose 96 70 - 199 mg/dL [facility] Comment: Interpretive Data Fasting glucose >/= 126 mg/dl is diagnostic for diabetes. Fasting is defined as no caloric intake for at least 8 hours. Fasting glucose between 100 mg/dl to 125 mg/dl is diagnostic of prediabetes. In a patient with classic symptoms of hyperglycemia or hyperglycemic crisis, a random glucose >/= 200 mg/dl is diagnostic for diabetes. In the absence of unequivocal hyperglycemia, results should be confirmed by repeat testing. The classification and Diagnosis of Diabetes Diabetes Care 2021; 46: S19-S40. Current interpretive data was last revised 2022. Calcium 9.8 8.5 - 10.3 mg/dL [facility] Blood 01/18/2025 5:54 AM CDT 01/18/2025 6:20 AM CDT us Shelia Campa MD LAB BLOOD ORDERABLES Final Resu lt [facility] Department [place] [address] * (ABNORMAL) eGFR (01/17/2025 5:56 AM CDT) eGFR 37(L) >=60 mL/min/1. 73 m2 Comment: Interpretive Data Reference Interval Normal >/= 90 mL/min/1.73m2 Mildly decreased* 60 - 89 mL/min/1.73m2 Mildly to moderately decreased 45 - 59 mL/min/1.73m2 Moderately to severely decreased 30 - 44 mL/min/1.73m2 Severely decreased 15 - 29 mL/min/1.73m2 Kidney Failure < 15 mL/min/1.73m2 *Relative to young adult level Estimated glomerular filtration rate is determined by the 2020 CKD-EPI equation recommended by the National Kidney Foundation (A Unifying Approach to GFR Estimation: Recommendations of the NKF-ASK Task Force on Reassessing the Inclusion of Race in Diagnosing Kidney Disease, HEAMN 2020). The CKD-EPI equation should not be used for patients with unstable renal function and has not been validated in children and those over 70. Current interpretive data was last reviewed 2021. Blood 01/17/2025 5:56 AM CDT 01/17/2025 6:41 AM CDT Shelia Campa MD LAB BLOOD ORDERABLES Final Resu lt Performing Organization Address City/[facility] Co de Phone Number [facility] [place] [address] * (ABNORMAL) Phosphorus (01/17/2025 5:56 AM CDT) Phosphorus, pl 4.9(H) 2.3 - 4.5 mg/dL Blood 01/17/2025 5:56 AM CDT 01/17/2025 6:29 AM CDT us Shelia Campa MD LAB BLOOD ORDERABLES Final Resu lt Performing Organization Address [facility] de Phone Number [facility] [place] [address] * Magnesium (01/17/2025 5:56 AM CDT) Magnesium 2.0 1.4 - 2.5 mg/dL Blood 01/17/2025 5:56 AM CDT 01/17/2025 6:29 AM CDT Shelia Campa MD LAB BLOOD ORDERABLES Final Resu lt Performing Organization Address [facility] de Phone Number [facility] [place] [address] * (ABNORMAL) Basic metabolic panel (01/17/2025 5:56 AM CDT) Sodium 140 135 - 145 mmol/L Potassium, pl 3.5 3.3 - 4.9 mmol/L [facility] Chloride 104 97 - 110 mmol/L [facility] CO2 24 22 - 32 mmol/L [facility] Anion gap 12 2 - 15 mmol/L [facility] BUN 16 6 - 25 mg/dL [facility] Creatinine 1.73(H) 0.60 - 1.10 mg/dL [facility] Glucose 105 70 - 199 mg/dL [facility] Comment: Interpretive Data Fasting glucose >/= 126 mg/dl is diagnostic for diabetes. Fasting is defined as no caloric intake for at least 8 hours. Fasting glucose between 100 mg/dl to 125 mg/dl is diagnostic of prediabetes. In a patient with classic symptoms of hyperglycemia or hyperglycemic crisis, a random glucose >/= 200 mg/dl is diagnostic for diabetes. In the absence of unequivocal hyperglycemia, results should be confirmed by repeat testing. The classification and Diagnosis of Diabetes Diabetes Care 2021; 46: S19-S40. Current interpretive data was last revised 2022. Calcium 9.7 8.5 - 10.3 mg/dL [facility] Blood 01/17/2025 5:56 AM CDT 01/17/2025 6:29 AM CDT Shelia Campa MD LAB BLOOD ORDERABLES Final Resu lt [facility] Department [place] [address] * (ABNORMAL) eGFR (01/16/2025 6:04 AM CDT) eGFR 34(L) >=60 mL/min/1. 73 m2 Comment: Interpretive Data Reference Interval Normal >/= 90 mL/min/1.73m2 Mildly decreased* 60 - 89 mL/min/1.73m2 Mildly to moderately decreased 45 - 59 mL/min/1.73m2 Moderately to severely decreased 30 - 44 mL/min/1.73m2 Severely decreased 15 - 29 mL/min/1.73m2 Kidney Failure < 15 mL/min/1.73m2 *Relative to young adult level Estimated glomerular filtration rate is determined by the 2020 CKD-EPI equation recommended by the National Kidney Foundation (A Unifying Approach to GFR Estimation: Recommendations of the NKF-ASK Task Force on Reassessing the Inclusion of Race in Diagnosing Kidney Disease, JASN 2020). The CKD-EPI equation should not be used for patients with unstable renal function and has not been validated in children and those over 70. Current interpretive data was last reviewed 2021. Blood 01/16/2025 6:04 AM CDT 01/16/2025 7:02 AM CDT us Shelia Campa MD LAB BLOOD ORDERABLES Final Resu lt [facility] Department [place] [address] * (ABNORMAL) Basic metabolic panel (01/16/2025 6:04 AM CDT) Sodium 140 135 - 145 mmol/L Potassium, pl 4.0 3.3 - 4.9 mmol/L [facility] Chloride 105 97 - 110 mmol/L [facility] CO2 23 22 - 32 mmol/L [facility] Anion gap 12 2 - 15 mmol/L [facility] BUN 16 6 - 25 mg/dL [facility] Creatinine 1.83(H) 0.60 - 1.10 mg/dL [facility] Glucose 81 70 - 199 mg/dL [facility] Comment: Interpretive Data Fasting glucose >/= 126 mg/dl is diagnostic for diabetes. Fasting is defined as no caloric intake for at least 8 hours. Fasting glucose between 100 mg/dl to 125 mg/dl is diagnostic of prediabetes. In a patient with classic symptoms of hyperglycemia or hyperglycemic crisis, a random glucose >/= 200 mg/dl is diagnostic for diabetes. In the absence of unequivocal hyperglycemia, results should be confirmed by repeat testing. The classification and Diagnosis of Diabetes Diabetes Care 202; 46: S19-S40. Current interpretive data was last revised 2022. Calcium 10.0 8.5 - 10.3 mg/dL [facility] Blood 01/16/2025 6:04 AM CDT 01/16/2025 7:02 AM CDT Shelia Campa MD LAB BLOOD ORDERABLES Final Resu lt Performing Organization Address City/[facility]/ZIP Co de Phone Number [facility] [place] [address] * (ABNORMAL) eGFR (01/15/2025 5:52 AM CDT) eGFR 35(L) >=60 mL/min/1. 73 m2 Comment: Interpretive Data Reference Interval Normal >/= 90 mL/min/1.73m2 Mildly decreased* 60 - 89 mL/min/1.73m2 Mildly to moderately decreased 45 - 59 mL/min/1.73m2 Moderately to severely decreased 30 - 44 mL/min/1.73m2 Severely decreased 15 - 29 mL/min/1.73m2 Kidney Failure < 15 mL/min/1.73m2 *Relative to young adult level Estimated glomerular filtration rate is determined by the 2020 CKD-EPI equation recommended by the National Kidney Foundation (A Unifying Approach to GFR Estimation: Recommendations of the NKF-ASK Task Force on Reassessing the Inclusion of Race in Diagnosing Kidney Disease, JASN 2020). The CKD-EPI equation should not be used for patients with unstable renal function and has not been validated in children and those over 70. Current interpretive data was last reviewed 2021. Blood 01/15/2025 5:52 AM CDT 01/15/2025 6:25 AM CDT Shelia Campa MD LAB BLOOD ORDERABLES Final Resu lt [facility] [place] [address] * (ABNORMAL) CBC without differential (01/15/2025 5:52 AM CDT) WBC 8.06 3.80 - 9.90 K/cumm Hgb 7.5(L) 11.9 - 15.5 g/dL [facility] Hct 24.2(L) 35.6 - 45.5 % [facility] Plt 374 150 - 400 K/cumm [facility] MPV 9.4 9.1 - 12.3 fL [facility] RBC 2.87(L) 3.90 - 5.20 M/cumm [facility] MCV 84.3 81.3 - 96.4 fL [facility] MCH 26.1(L) 27.1 - 33.3 pg [facility] MCHC 31.0(L) 32.3 - 35.7 g/dL [facility] RDW CV 16.5(H) 11.1 - 14.9 % [facility] RDW SD 51.0(H) 35.7 - 48.1 fL [facility] NRBC abs 0.00 0.00 - 0.01 K/cumm [facility] Blood 01/15/2025 5:52 AM CDT 01/15/2025 6:25 AM CDT Rand Pablo MD LAB BLOOD ORDERABLES Final Result [facility] [place] [address] * (ABNORMAL) Phosphorus (01/15/2025 5:52 AM CDT) Phosphorus, pl 4.9(H) 2.3 - 4.5 mg/dL Blood 01/15/2025 5:52 AM CDT 01/15/2025 6:20 AM CDT Rand Pablo MD LAB BLOOD ORDERABLES Final Result [facility] [place] [address] * Magnesium (01/15/2025 5:52 AM CDT) Magnesium 2.0 1.4 - 2.5 mg/dL Blood 01/15/2025 5:52 AM CDT 01/15/2025 6:20 AM CDT Rand Pablo MD LAB BLOOD ORDERABLES Final Result Performing Organization Address City/[facility]/ZIP Co de Phone Number [facility] [place] [address] * (ABNORMAL) Basic metabolic panel (01/15/2025 5:52 AM CDT) [facility] Sodium 140 135 - 145 mmol/L Potassium, pl 3.7 3.3 - 4.9 mmol/L [facility] Chloride 107 97 - 110 mmol/L [facility] CO2 25 22 - 32 mmol/L [facility] Anion gap 8 2 - 15 mmol/L [facility] BUN 18 6 - 25 mg/dL [facility] Creatinine 1.81(H) 0.60 - 1.10 mg/dL [facility] Glucose 92 70 - 199 mg/dL [facility] Comment: Interpretive Data Fasting glucose >/= 126 mg/dl is diagnostic for diabetes. Fasting is defined as no caloric intake for at least 8 hours. Fasting glucose between 100 mg/dl to 125 mg/dl is diagnostic of prediabetes. In a patient with classic symptoms of hyperglycemia or hyperglycemic crisis, a random glucose >/= 200 mg/dl is diagnostic for diabetes. In the absence of unequivocal hyperglycemia, results should be confirmed by repeat testing. The classification and Diagnosis of Diabetes Diabetes Care 2021; 46: S19-S40. Current interpretive data was last revised 2022. Calcium 10.1 8.5 - 10.3 mg/dL [facility] Blood 01/15/2025 5:52 AM CDT 01/15/2025 6:20 AM CDT us Shelia Campa MD LAB BLOOD ORDERABLES Final Resu lt Performing Organization Address City/[facility]/ZIP Co de Phone Number [facility] [place] [address] * (ABNORMAL) eGFR (01/14/2025 5:59 AM CDT) Pathologist [facility] [place] eGFR 36(L) >=60 mL/min/1. 73 m2 Comment: Interpretive Data Reference Interval Normal >/= 90 mL/min/1.73m2 Mildly decreased* 60 - 89 mL/min/1.73m2 Mildly to moderately decreased 45 - 59 mL/min/1.73m2 Moderately to severely decreased 30 - 44 mL/min/1.73m2 Severely decreased 15 - 29 mL/min/1.73m2 Kidney Failure < 15 mL/min/1.73m2 *Relative to young adult level Estimated glomerular filtration rate is determined by the 2020 CKD-EPI equation recommended by the National Kidney Foundation (A Unifying Approach to GFR Estimation: Recommendations of the NKF-ASK Task Force on Reassessing the Inclusion of Race in Diagnosing Kidney Disease, JASN 2020). The CKD-EPI equation should not be used for patients with unstable renal function and has not been validated in children and those over 70. Current interpretive data was last reviewed 2021. Blood 01/14/2025 5:59 AM CDT 01/14/2025 6:18 AM CDT Shelia Campa MD LAB BLOOD ORDERABLES Final Resu lt [facility] [place] [address] * (ABNORMAL) Basic metabolic panel (01/14/2025 5:59 AM CDT) Pathologist [facility] [place] Sodium 139 135 - 145 mmol/L Potassium, pl 3.7 3.3 - 4.9 mmol/L [facility] Chloride 107 97 - 110 mmol/L [facility] CO2 25 22 - 32 mmol/L [facility] Anion gap 7 2 - 15 mmol/L [facility] BUN 18 6 - 25 mg/dL [facility] Creatinine 1.76(H) 0.60 - 1.10 mg/dL [facility] Glucose 90 70 - 199 mg/dL [facility] Comment: Interpretive Data Fasting glucose >/= 126 mg/dl is diagnostic for diabetes. Fasting is defined as no caloric intake for at least 8 hours. Fasting glucose between 100 mg/dl to 125 mg/dl is diagnostic of prediabetes. In a patient with classic symptoms of hyperglycemia or hyperglycemic crisis, a random glucose >/= 200 mg/dl is diagnostic for diabetes. In the absence of unequivocal hyperglycemia, results should be confirmed by repeat testing. The classification and Diagnosis of Diabetes Diabetes Care 202; 46: S19-S40. Current interpretive data was last revised 2022. Calcium 10.5(H) 8.5 - 10.3 mg/dL [facility] Blood 01/14/2025 5:59 AM CDT 01/14/2025 6:18 AM CDT us Shelia Campa MD LAB BLOOD ORDERABLES Final Resu lt [facility] [place] [address] * Differential, auto (01/13/2025 6:55 PM CDT) Neutrophil abs 5.29 1.50 - 6.50 K/cumm Imm gran abs 0.09 0.00 - 0.10 K/cumm [facility] Lymphocyte abs 2.02 0.80 - 3.30 K/cumm [facility] Monocyte abs 0.41 0.20 - 0.80 K/cumm [facility] Eosinophil abs 0.35 0.00 - 0.50 K/cumm [facility] Basophil abs 0.04 0.00 - 0.10 K/cumm [facility] Neutrophil pct 64.5 % [facility] Comment: Interpretive Data Percent cell count reference ranges are not reported, since discordance with absolute values may lead to misinterpretation of CBC data. Current Interpretive Data was last revised on 2017. Imm gran pct 1.1 % [facility] Comment: Interpretive Data Percent cell count reference ranges are not reported, since discordance with absolute values may lead to misinterpretation of CBC data. Current Interpretive Data was last revised on 2017. Lymphocyte pct 24.6 % [facility] Comment: Interpretive Data Percent cell count reference ranges are not reported, since discordance with absolute values may lead to misinterpretation of CBC data. Current Interpretive Data was last revised on 2017. Monocyte pct 5.0 % [facility] Comment: Interpretive Data Percent cell count reference ranges are not reported, since discordance with absolute values may lead to misinterpretation of CBC data. Current Interpretive Data was last revised on 2017. Eosinophil pct 4.3 % [facility] Comment: Interpretive Data Percent cell count reference ranges are not reported, since discordance with absolute values may lead to misinterpretation of CBC data. Current Interpretive Data was last revised on 2017. Basophil pct 0.5 % [facility] Comment: Interpretive Data Percent cell count reference ranges are not reported, since discordance with absolute values may lead to misinterpretation of CBC data. Current Interpretive Data was last revised on 2017. Blood 01/13/2025 6:55 PM CDT 01/13/2025 7:03 PM CDT us Shelia Campa MD LAB BLOOD ORDERABLES Final Resu lt [facility] Department [place] [address] * (ABNORMAL) CBC with auto differential (01/13/2025 6:55 PM CDT) WBC 8.20 3.80 - 9.90 K/cumm Hgb 8.1(L) 11.9 - 15.5 g/dL [facility] Hct 25.7(L) 35.6 - 45.5 % [facility] Plt 423(H) 150 - 400 K/cumm [facility] MPV 9.7 9.1 - 12.3 fL [facility] RBC 3.05(L) 3.90 - 5.20 M/cumm [facility] MCV 84.3 81.3 - 96.4 fL [facility] MCH 26.6(L) 27.1 - 33.3 pg [facility] MCHC 31.5(L) 32.3 - 35.7 g/dL [facility] RDW CV 16.5(H) 11.1 - 14.9 % [facility] RDW SD 50.3(H) 35.7 - 48.1 fL [facility] NRBC abs 0.00 0.00 - 0.01 K/cumm [facility] Blood 01/13/2025 6:55 PM CDT 01/13/2025 7:03 PM CDT Shelia Campa MD LAB BLOOD ORDERABLES Final Resu lt [facility] [place] [address] * Type and screen (01/13/2025 6:55 PM CDT) ABO Rh O Positive Kadie, indirect Negative [facility] Blood 01/13/2025 6:55 PM CDT 01/13/2025 7:22 PM CDT Narrative [facility] - 01/13/2025 8:29 PM CDT Has the patient had Daratumumab or Isatuximab in the past 6 months?->Unknown Shelia Campa MD LAB BLOOD BANK TEST ORDERABLES Final Result [facility] [place] [address] * (ABNORMAL) eGFR (01/13/2025 6:14 AM CDT) eGFR 38(L) >=60 mL/min/1. 73 m2 Comment: Interpretive Data Reference Interval Normal >/= 90 mL/min/1.73m2 Mildly decreased* 60 - 89 mL/min/1.73m2 Mildly to moderately decreased 45 - 59 mL/min/1.73m2 Moderately to severely decreased 30 - 44 mL/min/1.73m2 Severely decreased 15 - 29 mL/min/1.73m2 Kidney Failure < 15 mL/min/1.73m2 *Relative to young adult level Estimated glomerular filtration rate is determined by the 2020 CKD-EPI equation recommended by the National Kidney Foundation (A Unifying Approach to GFR Estimation: Recommendations of the NKF-ASK Task Force on Reassessing the Inclusion of Race in Diagnosing Kidney Disease, JASN 2020). The CKD-EPI equation should not be used for patients with unstable renal function and has not been validated in children and those over 70. Current interpretive data was last reviewed 2021. Blood 01/13/2025 6:14 AM CDT 01/13/2025 6:47 AM CDT us Shelia Campa MD LAB BLOOD ORDERABLES Final Resu lt [facility] Department [place] [address] * (ABNORMAL) Basic metabolic panel (01/13/2025 6:14 AM CDT) Pathologist [facility] [place] Sodium 141 135 - 145 mmol/L Potassium, pl 3.8 3.3 - 4.9 mmol/L [facility] Chloride 109 97 - 110 mmol/L [facility] CO2 23 22 - 32 mmol/L [facility] Anion gap 9 2 - 15 mmol/L [facility] BUN 19 6 - 25 mg/dL [facility] Creatinine 1.67(H) 0.60 - 1.10 mg/dL [facility] Glucose 100 70 - 199 mg/dL [facility] Comment: Interpretive Data Fasting glucose >/= 126 mg/dl is diagnostic for diabetes. Fasting is defined as no caloric intake for at least 8 hours. Fasting glucose between 100 mg/dl to 125 mg/dl is diagnostic of prediabetes. In a patient with classic symptoms of hyperglycemia or hyperglycemic crisis, a random glucose >/= 200 mg/dl is diagnostic for diabetes. In the absence of unequivocal hyperglycemia, results should be confirmed by repeat testing. The classification and Diagnosis of Diabetes Diabetes Care 2021; 46: S19-S40. Current interpretive data was last revised 2022. Calcium 10.2 8.5 - 10.3 mg/dL [facility] Blood 01/13/2025 6:14 AM CDT 01/13/2025 6:47 AM CDT Shelia Campa MD LAB BLOOD ORDERABLES Final Resu lt Performing Organization Address [facility] Co de Phone Number [facility] [place] [address] * (ABNORMAL) eGFR (01/12/2025 5:44 AM CDT) eGFR 35(L) >=60 mL/min/1. 73 m2 Comment: Interpretive Data Reference Interval Normal >/= 90 mL/min/1.73m2 Mildly decreased* 60 - 89 mL/min/1.73m2 Mildly to moderately decreased 45 - 59 mL/min/1.73m2 Moderately to severely decreased 30 - 44 mL/min/1.73m2 Severely decreased 15 - 29 mL/min/1.73m2 Kidney Failure < 15 mL/min/1.73m2 *Relative to young adult level Estimated glomerular filtration rate is determined by the 2020 CKD-EPI equation recommended by the National Kidney Foundation (A Unifying Approach to GFR Estimation: Recommendations of the NKF-ASK Task Force on Reassessing the Inclusion of Race in Diagnosing Kidney Disease, JASN 2020). The CKD-EPI equation should not be used for patients with unstable renal function and has not been validated in children and those over 70. Current interpretive data was last reviewed 2021. Blood 01/12/2025 5:44 AM CDT 01/12/2025 6:11 AM CDT Shelia Campa MD LAB BLOOD ORDERABLES Final Resu lt Performing Organization Address City/[facility]/ZIP Co de Phone Number [facility] Department [place] [address] * (ABNORMAL) Iron profile w/ IBC (01/12/2025 5:44 AM CDT) Iron 18(L) 35 - 145 mcg/dL TIBC 131(L) 250 - 400 mcg/dL [facility] Transferrin saturation 14(L) 20 - 50 % [facility] Blood 01/12/2025 5:44 AM CDT 01/12/2025 6:11 AM CDT us Xiomara Miranda MD LAB BLOOD ORDERABLES María l Result Performing Organization Address City/[facility]/ZIP Co de Phone Number [facility] [place] [address] * (ABNORMAL) CBC without differential (01/12/2025 5:44 AM CDT) WBC 6.73 3.80 - 9.90 K/cumm Hgb 8.0(L) 11.9 - 15.5 g/dL [facility] Hct 25.6(L) 35.6 - 45.5 % [facility] Plt 369 150 - 400 K/cumm [facility] MPV 9.8 9.1 - 12.3 fL [facility] RBC 2.98(L) 3.90 - 5.20 M/cumm [facility] MCV 85.9 81.3 - 96.4 fL [facility] MCH 26.8(L) 27.1 - 33.3 pg [facility] MCHC 31.3(L) 32.3 - 35.7 g/dL [facility] RDW CV 16.6(H) 11.1 - 14.9 % [facility] RDW SD 52.4(H) 35.7 - 48.1 fL [facility] NRBC abs 0.00 0.00 - 0.01 K/cumm [facility] Blood 01/12/2025 5:44 AM CDT 01/12/2025 6:11 AM CDT us Rand Pablo MD LAB BLOOD ORDERABLES Final Result [facility] [place] [address] * (ABNORMAL) Phosphorus (01/12/2025 5:44 AM CDT) Phosphorus, pl 4.7(H) 2.3 - 4.5 mg/dL Blood 01/12/2025 5:44 AM CDT 01/12/2025 6:11 AM CDT Rand Pablo MD LAB BLOOD ORDERABLES Final Result [facility] Department [place] [address] * Magnesium (01/12/2025 5:44 AM CDT) [facility] Magnesium 2.2 1.4 - 2.5 mg/dL Blood 01/12/2025 5:44 AM CDT 01/12/2025 6:11 AM CDT Rand Pablo MD LAB BLOOD ORDERABLES Final Result Performing Organization Address City/[facility] Co de Phone Number [facility] Department [place] [address] * (ABNORMAL) Hepatic function panel (01/12/2025 5:44 AM CDT) Pathologist [facility] [place] Bilirubin, total 0.3 0.1 - 1.2 mg/dL Comment:Repeated and Verifie d Bilirubin, direct <0.2 0.1 - 0.3 mg/dL [facility] Protein, pl 7.5 6.5 - 8.5 g/dL [facility] Albumin 3.0(L) 3.5 - 5.0 g/dL [facility] Alk phos 111 40 - 130 Units/L [facility] ALT 65(H) 7 - 45 Units/L [facility] AST 55(H) 10 - 45 Units/L [facility] Blood 01/12/2025 5:44 AM CDT 01/12/2025 6:11 AM CDT us Rand Pablo MD LAB BLOOD ORDERABLES Final Result Performing Organization Address City/[facility]/ZIP Co de Phone Number [facility] Department [place] [address] * (ABNORMAL) Basic metabolic panel (01/12/2025 5:44 AM CDT) [facility] Sodium 139 135 - 145 mmol/L Potassium, pl 3.7 3.3 - 4.9 mmol/L [facility] Chloride 107 97 - 110 mmol/L [facility] CO2 23 22 - 32 mmol/L [facility] Anion gap 9 2 - 15 mmol/L [facility] BUN 20 6 - 25 mg/dL [facility] Creatinine 1.82(H) 0.60 - 1.10 mg/dL [facility] Glucose 103 70 - 199 mg/dL [facility] Comment: Interpretive Data Fasting glucose >/= 126 mg/dl is diagnostic for diabetes. Fasting is defined as no caloric intake for at least 8 hours. Fasting glucose between 100 mg/dl to 125 mg/dl is diagnostic of prediabetes. In a patient with classic symptoms of hyperglycemia or hyperglycemic crisis, a random glucose >/= 200 mg/dl is diagnostic for diabetes. In the absence of unequivocal hyperglycemia, results should be confirmed by repeat testing. The classification and Diagnosis of Diabetes Diabetes Care 2021; 46: S19-S40. Current interpretive data was last revised 2022. Calcium 10.5(H) 8.5 - 10.3 mg/dL [facility] Blood 01/12/2025 5:44 AM CDT 01/12/2025 6:11 AM CDT us Shelia Campa MD LAB BLOOD ORDERABLES Final Resu lt Performing Organization Address [facility]/ZIP Co de Phone Number [facility] Department [place] [address] * (ABNORMAL) eGFR (01/11/2025 6:51 AM CDT) Pathologist [facility] [place] eGFR 32(L) >=60 mL/min/1. 73 m2 Comment: Interpretive Data Reference Interval Normal >/= 90 mL/min/1.73m2 Mildly decreased* 60 - 89 mL/min/1.73m2 Mildly to moderately decreased 45 - 59 mL/min/1.73m2 Moderately to severely decreased 30 - 44 mL/min/1.73m2 Severely decreased 15 - 29 mL/min/1.73m2 Kidney Failure < 15 mL/min/1.73m2 *Relative to young adult level Estimated glomerular filtration rate is determined by the 2020 CKD-EPI equation recommended by the National Kidney Foundation (A Unifying Approach to GFR Estimation: Recommendations of the NKF-ASK Task Force on Reassessing the Inclusion of Race in Diagnosing Kidney Disease, JASN 2020). The CKD-EPI equation should not be used for patients with unstable renal function and has not been validated in children and those over 70. Current interpretive data was last reviewed 2021. Blood 01/11/2025 6:51 AM CDT 01/11/2025 7:52 AM CDT us Shelia Campa MD LAB BLOOD ORDERABLES Final Resu lt [facility] Department [place] [address] * (ABNORMAL) Basic metabolic panel (01/11/2025 6:51 AM CDT) Pathologist [facility] [place] Sodium 140 135 - 145 mmol/L Potassium, pl 3.8 3.3 - 4.9 mmol/L [facility] Chloride 108 97 - 110 mmol/L [facility] CO2 22 22 - 32 mmol/L [facility] Anion gap 10 2 - 15 mmol/L [facility] BUN 22 6 - 25 mg/dL [facility] Creatinine 1.94(H) 0.60 - 1.10 mg/dL [facility] Glucose 112 70 - 199 mg/dL [facility] Comment: Interpretive Data Fasting glucose >/= 126 mg/dl is diagnostic for diabetes. Fasting is defined as no caloric intake for at least 8 hours. Fasting glucose between 100 mg/dl to 125 mg/dl is diagnostic of prediabetes. In a patient with classic symptoms of hyperglycemia or hyperglycemic crisis, a random glucose >/= 200 mg/dl is diagnostic for diabetes. In the absence of unequivocal hyperglycemia, results should be confirmed by repeat testing. The classification and Diagnosis of Diabetes Diabetes Care 2021; 46: S19-S40. Current interpretive data was last revised 2022. Calcium 10.6(H) 8.5 - 10.3 mg/dL [facility] Blood 01/11/2025 6:51 AM CDT 01/11/2025 7:21 AM CDT us Shelia Campa MD LAB BLOOD ORDERABLES Final Resu lt [facility] [place] [address] * (ABNORMAL) eGFR (01/10/2025 7:25 AM CDT) eGFR 32(L) >=60 mL/min/1. 73 m2 Comment: Interpretive Data Reference Interval Normal >/= 90 mL/min/1.73m2 Mildly decreased* 60 - 89 mL/min/1.73m2 Mildly to moderately decreased 45 - 59 mL/min/1.73m2 Moderately to severely decreased 30 - 44 mL/min/1.73m2 Severely decreased 15 - 29 mL/min/1.73m2 Kidney Failure < 15 mL/min/1.73m2 *Relative to young adult level Estimated glomerular filtration rate is determined by the 2020 CKD-EPI equation recommended by the National Kidney Foundation (A Unifying Approach to GFR Estimation: Recommendations of the NKF-ASK Task Force on Reassessing the Inclusion of Race in Diagnosing Kidney Disease, JASN 2020). The CKD-EPI equation should not be used for patients with unstable renal function and has not been validated in children and those over 70. Current interpretive data was last reviewed 2021. Blood 01/10/2025 7:25 AM CDT 01/10/2025 7:55 AM CDT Shelia Campa MD LAB BLOOD ORDERABLES Final Resu lt [facility] Department [place] [address] * (ABNORMAL) Basic metabolic panel (01/10/2025 7:25 AM CDT) Pathologist [facility] [place] Sodium 142 135 - 145 mmol/L Potassium, pl 4.0 3.3 - 4.9 mmol/L [facility] Chloride 109 97 - 110 mmol/L [facility] CO2 21(L) 22 - 32 mmol/L [facility] Anion gap 12 2 - 15 mmol/L [facility] BUN 22 6 - 25 mg/dL [facility] Creatinine 1.94(H) 0.60 - 1.10 mg/dL [facility] Glucose 111 70 - 199 mg/dL [facility] Comment: Interpretive Data Fasting glucose >/= 126 mg/dl is diagnostic for diabetes. Fasting is defined as no caloric intake for at least 8 hours. Fasting glucose between 100 mg/dl to 125 mg/dl is diagnostic of prediabetes. In a patient with classic symptoms of hyperglycemia or hyperglycemic crisis, a random glucose >/= 200 mg/dl is diagnostic for diabetes. In the absence of unequivocal hyperglycemia, results should be confirmed by repeat testing. The classification and Diagnosis of Diabetes Diabetes Care 202; 46: S19-S40. Current interpretive data was last revised 2022. Calcium 10.4(H) 8.5 - 10.3 mg/dL [facility] Blood 01/10/2025 7:25 AM CDT 01/10/2025 7:50 AM CDT Shelia Campa MD LAB BLOOD ORDERABLES Final Resu lt [facility] Department [place] [address] * (ABNORMAL) eGFR (01/09/2025 6:30 AM CDT) eGFR 34(L) >=60 mL/min/1. 73 m2 Comment: Interpretive Data Reference Interval Normal >/= 90 mL/min/1.73m2 Mildly decreased* 60 - 89 mL/min/1.73m2 Mildly to moderately decreased 45 - 59 mL/min/1.73m2 Moderately to severely decreased 30 - 44 mL/min/1.73m2 Severely decreased 15 - 29 mL/min/1.73m2 Kidney Failure < 15 mL/min/1.73m2 *Relative to young adult level Estimated glomerular filtration rate is determined by the 2020 CKD-EPI equation recommended by the National Kidney Foundation (A Unifying Approach to GFR Estimation: Recommendations of the NKF-ASK Task Force on Reassessing the Inclusion of Race in Diagnosing Kidney Disease, JASN 2020). The CKD-EPI equation should not be used for patients with unstable renal function and has not been validated in children and those over 70. Current interpretive data was last reviewed 2021. Blood 01/09/2025 6:30 AM CDT 01/09/2025 7:36 AM CDT us Shelia Campa MD LAB BLOOD ORDERABLES Final Resu lt [facility] Department [place] [address] * (ABNORMAL) Basic metabolic panel (01/09/2025 6:30 AM CDT) Pathologist [facility] [place] Sodium 138 135 - 145 mmol/L Potassium, pl 3.9 3.3 - 4.9 mmol/L [facility] Chloride 105 97 - 110 mmol/L [facility] CO2 22 22 - 32 mmol/L [facility] Anion gap 11 2 - 15 mmol/L [facility] BUN 20 6 - 25 mg/dL [facility] Creatinine 1.84(H) 0.60 - 1.10 mg/dL [facility] Glucose 117 70 - 199 mg/dL [facility] Comment: Interpretive Data Fasting glucose >/= 126 mg/dl is diagnostic for diabetes. Fasting is defined as no caloric intake for at least 8 hours. Fasting glucose between 100 mg/dl to 125 mg/dl is diagnostic of prediabetes. In a patient with classic symptoms of hyperglycemia or hyperglycemic crisis, a random glucose >/= 200 mg/dl is diagnostic for diabetes. In the absence of unequivocal hyperglycemia, results should be confirmed by repeat testing. The classification and Diagnosis of Diabetes Diabetes Care 2021; 46: S19-S40. Current interpretive data was last revised 2022. Calcium 10.1 8.5 - 10.3 mg/dL [facility] Blood 01/09/2025 6:30 AM CDT 01/09/2025 7:22 AM CDT Shelia Campa MD LAB BLOOD ORDERABLES Final Resu lt Performing Organization Address [facility] Co de Phone Number [facility] [place] [address] * C. difficile testing Stool (01/08/2025 9:26 PM CDT) [facility] Result Positive Negative Toxin Result Negative Negative [facility] C. diff result Negative, free toxin. Negative, free toxin [facility] C. diff interp GDH+/toxin- results almost never represent true C. difficile infection (CDI). Results may represent colonization with C. difficile without CDI, detection of a bacteria other than toxigenic C. difficile, or a false negative toxin assay. If there is a high index of suspicion for CDI, additional testing by PCR is available upon request. [facility] Stool 01/08/2025 9:26 PM CDT 01/08/2025 10:21 PM CDT Florentino Villalta MD PhD LAB MICROBIOLOGY - GENERAL ORD ERABLES Final Result Performing Organization Address [facility]/ZIP Co de Phone Number [facility] [place] [address] * (ABNORMAL) Infection Prevention VRE Culture Stool (01/08/2025 9:26 PM CDT) Report Final Report: Enterococcus species, vancomycin resistant (.) Organism ENTEROCOCCUS SPECIES, VANCOMYCIN RESISTANT [facility] Stool 01/08/2025 9:26 PM CDT 01/09/2025 1:45 AM CDT Narrative [facility] - 01/11/2025 10:35 AM CDT Surveillance culture for Infection Prevention purposes only; results indicate colonization, not infection requiring treatment. Testing performed by [facility] ([phone]). Xiomara Miranda MD LAB MICROBIOLOGY - GENERA L ORDERABLES Final Result Performing Organization Address City/[facility]/ZIP Co de Phone Number [facility] Department [place] [address] * (ABNORMAL) eGFR (01/08/2025 6:00 AM CDT) eGFR 36(L) >=60 mL/min/1. 73 m2 Comment: Interpretive Data Reference Interval Normal >/= 90 mL/min/1.73m2 Mildly decreased* 60 - 89 mL/min/1.73m2 Mildly to moderately decreased 45 - 59 mL/min/1.73m2 Moderately to severely decreased 30 - 44 mL/min/1.73m2 Severely decreased 15 - 29 mL/min/1.73m2 Kidney Failure < 15 mL/min/1.73m2 *Relative to young adult level Estimated glomerular filtration rate is determined by the 2020 CKD-EPI equation recommended by the National Kidney Foundation (A Unifying Approach to GFR Estimation: Recommendations of the NKF-ASK Task Force on Reassessing the Inclusion of Race in Diagnosing Kidney Disease, JASN 2020). The CKD-EPI equation should not be used for patients with unstable renal function and has not been validated in children and those over 70. Current interpretive data was last reviewed 2021. Blood 01/08/2025 6:00 AM CDT 01/08/2025 6:28 AM CDT Xiomara Miranda MD LAB BLOOD ORDERABLES María l Result Performing Organization Address City/[facility]/ZIP Co de Phone Number [facility] Department [place] [address] * (ABNORMAL) CBC without differential (01/08/2025 6:00 AM CDT) [facility] WBC 9.56 3.80 - 9.90 K/cumm Hgb 7.7(L) 11.9 - 15.5 g/dL [facility] Hct 24.7(L) 35.6 - 45.5 % [facility] Plt 359 150 - 400 K/cumm [facility] MPV 9.9 9.1 - 12.3 fL [facility] RBC 2.92(L) 3.90 - 5.20 M/cumm [facility] MCV 84.6 81.3 - 96.4 fL [facility] MCH 26.4(L) 27.1 - 33.3 pg [facility] MCHC 31.2(L) 32.3 - 35.7 g/dL [facility] RDW CV 17.3(H) 11.1 - 14.9 % [facility] RDW SD 53.7(H) 35.7 - 48.1 fL [facility] NRBC abs 0.00 0.00 - 0.01 K/cumm [facility] Blood 01/08/2025 6:00 AM CDT 01/08/2025 6:28 AM CDT us Rand Pablo MD LAB BLOOD ORDERABLES Final Result Performing Organization Address City/State/[facility] Co de Phone Number [facility] Department [place] [address] * (ABNORMAL) Phosphorus (01/08/2025 6:00 AM CDT) [facility] Phosphorus, pl 4.7(H) 2.3 - 4.5 mg/dL Blood 01/08/2025 6:00 AM CDT 01/08/2025 6:22 AM CDT us Rand Pablo MD LAB BLOOD ORDERABLES Final Result Performing Organization Address City/[facility]/ZIP Co de Phone Number [facility] Department [place] [address] * Magnesium (01/08/2025 6:00 AM CDT) [facility] Magnesium 2.1 1.4 - 2.5 mg/dL Blood 01/08/2025 6:00 AM CDT 01/08/2025 6:22 AM CDT Rand Pablo MD LAB BLOOD ORDERABLES Final Result Performing Organization Address [facility] Co de Phone Number [facility] [place] [address] * (ABNORMAL) Basic metabolic panel (01/08/2025 6:00 AM CDT) [facility] Sodium 139 135 - 145 mmol/L Potassium, pl 3.8 3.3 - 4.9 mmol/L [facility] Chloride 108 97 - 110 mmol/L [facility] CO2 24 22 - 32 mmol/L [facility] Anion gap 7 2 - 15 mmol/L [facility] BUN 19 6 - 25 mg/dL [facility] Creatinine 1.76(H) 0.60 - 1.10 mg/dL [facility] Glucose 122 70 - 199 mg/dL [facility] Comment: Interpretive Data Fasting glucose >/= 126 mg/dl is diagnostic for diabetes. Fasting is defined as no caloric intake for at least 8 hours. Fasting glucose between 100 mg/dl to 125 mg/dl is diagnostic of prediabetes. In a patient with classic symptoms of hyperglycemia or hyperglycemic crisis, a random glucose >/= 200 mg/dl is diagnostic for diabetes. In the absence of unequivocal hyperglycemia, results should be confirmed by repeat testing. The classification and Diagnosis of Diabetes Diabetes Care 2021; 46: S19-S40. Current interpretive data was last revised 2022. Calcium 10.5(H) 8.5 - 10.3 mg/dL [facility] Blood 01/08/2025 6:00 AM CDT 01/08/2025 6:22 AM CDT Xiomara Miranda MD LAB BLOOD ORDERABLES María l Result Performing Organization Address [facility] Co de Phone Number [facility] [place] [address] * (ABNORMAL) eGFR (01/07/2025 5:59 AM CDT) eGFR 38(L) >=60 mL/min/1. 73 m2 Comment: Interpretive Data Reference Interval Normal >/= 90 mL/min/1.73m2 Mildly decreased* 60 - 89 mL/min/1.73m2 Mildly to moderately decreased 45 - 59 mL/min/1.73m2 Moderately to severely decreased 30 - 44 mL/min/1.73m2 Severely decreased 15 - 29 mL/min/1.73m2 Kidney Failure < 15 mL/min/1.73m2 *Relative to young adult level Estimated glomerular filtration rate is determined by the 2020 CKD-EPI equation recommended by the National Kidney Foundation (A Unifying Approach to GFR Estimation: Recommendations of the NKF-ASK Task Force on Reassessing the Inclusion of Race in Diagnosing Kidney Disease, JASN 2020). The CKD-EPI equation should not be used for patients with unstable renal function and has not been validated in children and those over 70. Current interpretive data was last reviewed 2021. Blood 01/07/2025 5:59 AM CDT 01/07/2025 7:21 AM CDT us Shelia Campa MD LAB BLOOD ORDERABLES Final Resu lt Performing Organization Address City/[facility]/ZIP Co de Phone Number [facility] [place] [address] * (ABNORMAL) Basic metabolic panel (01/07/2025 5:59 AM CDT) Sodium 143 135 - 145 mmol/L Potassium, pl 3.9 3.3 - 4.9 mmol/L [facility] Chloride 110 97 - 110 mmol/L [facility] CO2 24 22 - 32 mmol/L [facility] Anion gap 9 2 - 15 mmol/L [facility] BUN 18 6 - 25 mg/dL [facility] Creatinine 1.69(H) 0.60 - 1.10 mg/dL [facility] Glucose 111 70 - 199 mg/dL [facility] Comment: Interpretive Data Fasting glucose >/= 126 mg/dl is diagnostic for diabetes. Fasting is defined as no caloric intake for at least 8 hours. Fasting glucose between 100 mg/dl to 125 mg/dl is diagnostic of prediabetes. In a patient with classic symptoms of hyperglycemia or hyperglycemic crisis, a random glucose >/= 200 mg/dl is diagnostic for diabetes. In the absence of unequivocal hyperglycemia, results should be confirmed by repeat testing. The classification and Diagnosis of Diabetes Diabetes Care 2021; 46: S19-S40. Current interpretive data was last revised 2022. Calcium 10.6(H) 8.5 - 10.3 mg/dL [facility] Blood 01/07/2025 5:59 AM CDT 01/07/2025 7:21 AM CDT us Shelia Campa MD LAB BLOOD ORDERABLES Final Resu lt Performing Organization Address City/[facility]/ZIP Co de Phone Number [facility] [place] [address] * POCT glucose (01/06/2025 8:16 PM CDT) Glucose, POC 96 70 - 199 mg/dL Blood 01/06/2025 8:16 PM CDT 01/06/2025 8:16 PM CDT us Xiomara Miranda MD LAB POCT ORDERABLES - DEV ICE Final Result Performing Organization Address [facility]/ZIP Co de Phone Number [facility] Department [place] [address] * (ABNORMAL) eGFR (01/06/2025 6:15 AM CDT) Pathologist [facility] [place] eGFR 37(L) >=60 mL/min/1. 73 m2 Comment: Interpretive Data Reference Interval Normal >/= 90 mL/min/1.73m2 Mildly decreased* 60 - 89 mL/min/1.73m2 Mildly to moderately decreased 45 - 59 mL/min/1.73m2 Moderately to severely decreased 30 - 44 mL/min/1.73m2 Severely decreased 15 - 29 mL/min/1.73m2 Kidney Failure < 15 mL/min/1.73m2 *Relative to young adult level Estimated glomerular filtration rate is determined by the 2020 CKD-EPI equation recommended by the National Kidney Foundation (A Unifying Approach to GFR Estimation: Recommendations of the NKF-ASK Task Force on Reassessing the Inclusion of Race in Diagnosing Kidney Disease, JASN 2020). The CKD-EPI equation should not be used for patients with unstable renal function and has not been validated in children and those over 70. Current interpretive data was last reviewed 2021. Blood 01/06/2025 6:15 AM CDT 01/06/2025 6:49 AM CDT us Shelia Campa MD LAB BLOOD ORDERABLES Final Resu lt [facility] Department [place] [address] * (ABNORMAL) Basic metabolic panel (01/06/2025 6:15 AM CDT) Pathologist [facility] [place] Sodium 143 135 - 145 mmol/L Potassium, pl 3.5 3.3 - 4.9 mmol/L [facility] Chloride 111(H) 97 - 110 mmol/L [facility] CO2 24 22 - 32 mmol/L [facility] Anion gap 8 2 - 15 mmol/L [facility] BUN 15 6 - 25 mg/dL [facility] Creatinine 1.72(H) 0.60 - 1.10 mg/dL [facility] Glucose 99 70 - 199 mg/dL [facility] Comment: Interpretive Data Fasting glucose >/= 126 mg/dl is diagnostic for diabetes. Fasting is defined as no caloric intake for at least 8 hours. Fasting glucose between 100 mg/dl to 125 mg/dl is diagnostic of prediabetes. In a patient with classic symptoms of hyperglycemia or hyperglycemic crisis, a random glucose >/= 200 mg/dl is diagnostic for diabetes. In the absence of unequivocal hyperglycemia, results should be confirmed by repeat testing. The classification and Diagnosis of Diabetes Diabetes Care 2021; 46: S19-S40. Current interpretive data was last revised 2022. Calcium 10.2 8.5 - 10.3 mg/dL [facility] Blood 01/06/2025 6:15 AM CDT 01/06/2025 6:49 AM CDT Shelia Campa MD LAB BLOOD ORDERABLES Final Resu lt Performing Organization Address [facility] Co de Phone Number [facility] Department [place] [address] * POCT glucose (01/05/2025 8:29 PM CDT) Glucose, POC 99 70 - 199 mg/dL Blood 01/05/2025 8:29 PM CDT 01/05/2025 8:29 PM CDT Shelia Campa MD LAB POCT ORDERABLES - DEVICE Fi nal Result Performing Organization Address [facility] Co de Phone Number [facility] Department [place] [address] * POCT glucose (01/05/2025 5:07 PM CDT) Glucose, POC 100 70 - 199 mg/dL Blood 01/05/2025 5:07 PM CDT 01/05/2025 5:07 PM CDT Shelia Campa MD LAB POCT ORDERABLES - DEVICE Fi nal Result Performing Organization Address [facility] Co de Phone Number [facility] [address] * POCT glucose (01/05/2025 11:34 AM CDT) Glucose, POC 108 70 - 199 mg/dL Blood 01/05/2025 11:3 4 AM CDT 01/05/2025 11:34 AM CDT Shelia Campa MD LAB POCT ORDERABLES - DEVICE Fi nal Result Performing Organization Address City/[facility]/[place] [address] * POCT glucose (01/05/2025 7:38 AM CDT) Glucose, POC 100 70 - 199 mg/dL Blood 01/05/2025 7:38 AM CDT 01/05/2025 7:38 AM CDT Shelia Campa MD LAB POCT ORDERABLES - DEVICE Fi nal Result Performing Organization Address City/[facility] [place] [address] * Infection Prevention Ruddy auris PCR, surveillance Axilla/Groin (01/05/2025 6:27 AM CDT) Ruddy auris DNA Invalid Not Detected [facility] Comment: Unable to analyze due to the possible presence of inhibitory substances. Recommend submission of a second separately collected sample if clinically indicated. Credited, charge error. Interpretive Data Testing performed by [facility] using the Shelia hussein 6800 Ruddy auris assay. This assay detects DNA from Ruddy auris using Real-Time PCR. This assay is laboratory developed and is not cleared by the [place] Food and Drug Administration. The performance characteristics have been verified by the [facility]. Axilla/Groin 01/05/2025 6:27 AM CDT 01/05/2025 7:21 AM CDT Narrative DENNY BRIGGS - 01/06/2025 9:08 AM CDT Order placed by [facility] due to ring surveillance. us Instant Order Generic Provider LAB MICROBIOLOGY - GENERAL ORDERABLES Final Result Performing Organization Address City/[facility] Co de Phone Number [facility] Department [place] [address] [facility] * (ABNORMAL) eGFR (01/05/2025 6:27 AM CDT) eGFR 39(L) >=60 mL/min/1. 73 m2 Comment: Interpretive Data Reference Interval Normal >/= 90 mL/min/1.73m2 Mildly decreased* 60 - 89 mL/min/1.73m2 Mildly to moderately decreased 45 - 59 mL/min/1.73m2 Moderately to severely decreased 30 - 44 mL/min/1.73m2 Severely decreased 15 - 29 mL/min/1.73m2 Kidney Failure < 15 mL/min/1.73m2 *Relative to young adult level Estimated glomerular filtration rate is determined by the 2020 CKD-EPI equation recommended by the National Kidney Foundation (A Unifying Approach to GFR Estimation: Recommendations of the NKF-ASK Task Force on Reassessing the Inclusion of Race in Diagnosing Kidney Disease, JASN 2020). The CKD-EPI equation should not be used for patients with unstable renal function and has not been validated in children and those over 70. Current interpretive data was last reviewed 2021. Blood 01/05/2025 6:27 AM CDT 01/05/2025 7:21 AM CDT us Shelia Campa MD LAB BLOOD ORDERABLES Final Resu lt Performing Organization Address City/[facility]/ZIP Co de Phone Number [facility] Department [place] [address] * (ABNORMAL) CBC without differential (01/05/2025 6:27 AM CDT) WBC 6.47 3.80 - 9.90 K/cumm Hgb 7.5(L) 11.9 - 15.5 g/dL [facility] Hct 24.2(L) 35.6 - 45.5 % [facility] Plt 336 150 - 400 K/cumm [facility] MPV 10.0 9.1 - 12.3 fL [facility] RBC 2.86(L) 3.90 - 5.20 M/cumm [facility] MCV 84.6 81.3 - 96.4 fL [facility] MCH 26.2(L) 27.1 - 33.3 pg [facility] MCHC 31.0(L) 32.3 - 35.7 g/dL [facility] RDW CV 17.0(H) 11.1 - 14.9 % [facility] RDW SD 52.5(H) 35.7 - 48.1 fL [facility] NRBC abs 0.00 0.00 - 0.01 K/cumm [facility] Blood 01/05/2025 6:27 AM CDT 01/05/2025 7:21 AM CDT us Rand Pablo MD LAB BLOOD ORDERABLES Final Result Performing Organization Address City/[facility]/ZIP Co de Phone Number [facility] [place] [address] * (ABNORMAL) Phosphorus (01/05/2025 6:27 AM CDT) [facility] Phosphorus, pl 5.3(H) 2.3 - 4.5 mg/dL Blood 01/05/2025 6:27 AM CDT 01/05/2025 7:21 AM CDT Rand Pablo MD LAB BLOOD ORDERABLES Final Result [facility] Department [place] [address] * Magnesium (01/05/2025 6:27 AM CDT) [facility] Magnesium 2.1 1.4 - 2.5 mg/dL Blood 01/05/2025 6:27 AM CDT 01/05/2025 7:21 AM CDT Rand Pablo MD LAB BLOOD ORDERABLES Final Result [facility] Department [place] [address] * (ABNORMAL) Hepatic function panel (01/05/2025 6:27 AM CDT) [facility] Bilirubin, total <0.2 0.1 - 1.2 mg/dL Comment:Reviewed Bilirubin, direct <0.2 0.1 - 0.3 mg/dL [facility] Protein, pl 7.1 6.5 - 8.5 g/dL [facility] Albumin 2.7(L) 3.5 - 5.0 g/dL [facility] Alk phos 111 40 - 130 Units/L [facility] ALT 72(H) 7 - 45 Units/L [facility] AST 78(H) 10 - 45 Units/L [facility] Blood 01/05/2025 6:27 AM CDT 01/05/2025 7:21 AM CDT us Rand Pablo MD LAB BLOOD ORDERABLES Final Result [facility] Department [place] [address] * (ABNORMAL) Basic metabolic panel (01/05/2025 6:27 AM CDT) [facility] Sodium 145 135 - 145 mmol/L Potassium, pl 3.3 3.3 - 4.9 mmol/L [facility] Chloride 112(H) 97 - 110 mmol/L [facility] CO2 22 22 - 32 mmol/L [facility] Anion gap 11 2 - 15 mmol/L [facility] BUN 16 6 - 25 mg/dL [facility] Creatinine 1.63(H) 0.60 - 1.10 mg/dL [facility] Glucose 110 70 - 199 mg/dL [facility] Comment: Interpretive Data Fasting glucose >/= 126 mg/dl is diagnostic for diabetes. Fasting is defined as no caloric intake for at least 8 hours. Fasting glucose between 100 mg/dl to 125 mg/dl is diagnostic of prediabetes. In a patient with classic symptoms of hyperglycemia or hyperglycemic crisis, a random glucose >/= 200 mg/dl is diagnostic for diabetes. In the absence of unequivocal hyperglycemia, results should be confirmed by repeat testing. The classification and Diagnosis of Diabetes Diabetes Care 2021; 46: S19-S40. Current interpretive data was last revised 2022. Calcium 10.2 8.5 - 10.3 mg/dL [facility] Blood 01/05/2025 6:27 AM CDT 01/05/2025 7:21 AM CDT Shelia Campa MD LAB BLOOD ORDERABLES Final Resu lt [facility] [place] [address] * POCT glucose (01/04/2025 7:23 PM CDT) Glucose, POC 102 70 - 199 mg/dL Blood 01/04/2025 7:23 PM CDT 01/04/2025 7:23 PM CDT Shelia Campa MD LAB POCT ORDERABLES - DEVICE Fi nal Result Performing Organization Address City/[facility]/ZIP Co de Phone Number [facility] [place] [address] * POCT glucose (01/04/2025 5:11 PM CDT) Glucose, POC 100 70 - 199 mg/dL Blood 01/04/2025 5:11 PM CDT 01/04/2025 5:11 PM CDT us Shelia Campa MD LAB POCT ORDERABLES - DEVICE Fi nal Result Performing Organization Address [facility] Phone Number [facility] [place] [address] * POCT glucose (01/04/2025 11:45 AM CDT) Glucose, POC 100 70 - 199 mg/dL Blood 01/04/2025 11:4 5 AM CDT 01/04/2025 11:45 AM CDT Shelia Campa MD LAB POCT ORDERABLES - DEVICE Fi nal Result Performing Organization Address [facility] Phone Number [facility] [place] [address] * POCT glucose (01/04/2025 7:45 AM CDT) Glucose, POC 106 70 - 199 mg/dL Blood 01/04/2025 7:45 AM CDT 01/04/2025 7:45 AM CDT Shelia Campa MD LAB POCT ORDERABLES - DEVICE Fi nal Result Performing Organization Address [facility] Phone Number [facility] [place] [address] * (ABNORMAL) eGFR (01/04/2025 6:43 AM CDT) eGFR 39(L) >=60 mL/min/1. 73 m2 Comment: Interpretive Data Reference Interval Normal >/= 90 mL/min/1.73m2 Mildly decreased* 60 - 89 mL/min/1.73m2 Mildly to moderately decreased 45 - 59 mL/min/1.73m2 Moderately to severely decreased 30 - 44 mL/min/1.73m2 Severely decreased 15 - 29 mL/min/1.73m2 Kidney Failure < 15 mL/min/1.73m2 *Relative to young adult level Estimated glomerular filtration rate is determined by the 2020 CKD-EPI equation recommended by the National Kidney Foundation (A Unifying Approach to GFR Estimation: Recommendations of the NKF-ASK Task Force on Reassessing the Inclusion of Race in Diagnosing Kidney Disease, JASN 2020). The CKD-EPI equation should not be used for patients with unstable renal function and has not been validated in children and those over 70. Current interpretive data was last reviewed 2021. Blood 01/04/2025 6:43 AM CDT 01/04/2025 7:42 AM CDT us Shelia Campa MD LAB BLOOD ORDERABLES Final Resu lt [facility] Department [place] [address] * (ABNORMAL) Basic metabolic panel (01/04/2025 6:43 AM CDT) Sodium 142 135 - 145 mmol/L Potassium, pl 3.0(L) 3.3 - 4.9 mmol/L [facility] Chloride 112(H) 97 - 110 mmol/L [facility] CO2 22 22 - 32 mmol/L [facility] Anion gap 8 2 - 15 mmol/L [facility] BUN 14 6 - 25 mg/dL [facility] Creatinine 1.65(H) 0.60 - 1.10 mg/dL [facility] Glucose 101 70 - 199 mg/dL [facility] Comment: Interpretive Data Fasting glucose >/= 126 mg/dl is diagnostic for diabetes. Fasting is defined as no caloric intake for at least 8 hours. Fasting glucose between 100 mg/dl to 125 mg/dl is diagnostic of prediabetes. In a patient with classic symptoms of hyperglycemia or hyperglycemic crisis, a random glucose >/= 200 mg/dl is diagnostic for diabetes. In the absence of unequivocal hyperglycemia, results should be confirmed by repeat testing. The classification and Diagnosis of Diabetes Diabetes Care 2021; 46: S19-S40. Current interpretive data was last revised 2022. Calcium 10.3 8.5 - 10.3 mg/dL [facility] Blood 01/04/2025 6:43 AM CDT 01/04/2025 7:28 AM CDT Shelia Campa MD LAB BLOOD ORDERABLES Final Resu lt Performing Organization Address [facility] Co de Phone Number [facility] [place] [address] * POCT glucose (01/03/2025 8:35 PM CDT) Glucose, POC 91 70 - 199 mg/dL Blood 01/03/2025 8:35 PM CDT 01/03/2025 8:35 PM CDT Shelia Campa MD LAB POCT ORDERABLES - DEVICE Fi nal Result Performing Organization Address [facility] de Phone Number [facility] [place] [address] * POCT glucose (01/03/2025 5:06 PM CDT) Glucose, POC 87 70 - 199 mg/dL Blood 01/03/2025 5:06 PM CDT 01/03/2025 5:06 PM CDT Shelia Campa MD LAB POCT ORDERABLES - DEVICE Fi nal Result Performing Organization Address [facility] de Phone Number [facility] [place] [address] * IR Central Line Placement > 5 Years (01/03/2025 2:10 PM CDT) Anatomical Region Laterality Modality Body N/A X-Ray Angiograph y 01/03/2025 3:44 PM CDT Impressions 01/04/2025 6:47 AM CDT Successful nontunneled catheter placement. PLAN: The catheter is ready for immediate use. When treatment is completed, this catheter can be removed at the bedside according to standard hospital protocol. Dictated by: Brian Nicholson M.D. The radiology attending physician has personally reviewed this study, and had reviewed and/or edited this written report and agrees with it. Electronically signed by: Dinesh Sofia MD Narrative 01/04/2025 6:47 AM CDT EXAMINATION: NONTUNNELED CENTRAL VENOUS CATHETER PLACEMENT (STD) HISTORY: 44 year old woman with recurrent diverticulitis c/b multiple fistulae. Requiring cvc placement for antibiotics. ATTENDING PRESENCE: Dinesh Sofia MD, the attending radiologist was present from the beginning to the end of the procedure. SEDATION: Local only. TECHNIQUE: The risks, benefits and alternatives were discussed and informed consent was obtained. Prior to beginning the procedure, [place] Protocol was used to confirm the patient's identity and planned procedure. Fluoroscopy time has been recorded in the electronic medical record. Maximum sterile barriers including cap, mask, hand hygiene, sterile gloves, sterile gown, large sterile drape and 2% chlorhexidine for cutaneous antisepsis were used. The skin over the right internal jugular vein was sterilely prepped, draped and infiltrated with 1% buffered lidocaine. Prior to the procedure, the target vessel was evaluated by ultrasound, an image of the patent vessel recorded, and this image placed in the patient's chart. After sterile prep, this vessel was accessed using realtime ultrasound guidance. A guidewire and catheter were then passed centrally using fluoroscopic guidance. The intravascular length from the access site to the right atrium was assessed. After dilating the tract, a dual lumen anne trimmed to the appropriate intravascular length was inserted over the guidewire. The catheter was flushed with 100U/ml heparin and secured in place. A sterile dressing was applied. ESTIMATED BLOOD LOSS: Minimal. CONDITION: Stable DISCHARGED TO: patient care division. FINDINGS: The final fluoroscopic image demonstrates the catheter with its tip in the right atrium. No complications are seen. Procedure Note Dinesh Sofia MD - 01/04/2025 EXAMINATION: NONTUNNELED CENTRAL VENOUS CATHETER PLACEMENT (STD) HISTORY: 44 year old woman with recurrent diverticulitis c/b multiple fistulae. Requiring cvc placement for antibiotics. ATTENDING PRESENCE: Dinesh Sofia MD, the attending radiologist was present from the beginning to the end of the procedure. SEDATION: Local only. TECHNIQUE: The risks, benefits and alternatives were discussed and informed consent was obtained. Prior to beginning the procedure, [place] Protocol was used to confirm the patient's identity and planned procedure. Fluoroscopy time has been recorded in the electronic medical record. Maximum sterile barriers including cap, mask, hand hygiene, sterile gloves, sterile gown, large sterile drape and 2% chlorhexidine for cutaneous antisepsis were used. The skin over the right internal jugular vein was sterilely prepped, draped and infiltrated with 1% buffered lidocaine. Prior to the procedure, the target vessel was evaluated by ultrasound, an image of the patent vessel recorded, and this image placed in the patient's chart. After sterile prep, this vessel was accessed using realtime ultrasound guidance. A guidewire and catheter were then passed centrally using fluoroscopic guidance. The intravascular length from the access site to the right atrium was assessed. After dilating the tract, a dual lumen anne trimmed to the appropriate intravascular length was inserted over the guidewire. The catheter was flushed with 100U/ml heparin and secured in place. A sterile dressing was applied. ESTIMATED BLOOD LOSS: Minimal. CONDITION: Stable DISCHARGED TO: patient care division. FINDINGS: The final fluoroscopic image demonstrates the catheter with its tip in the right atrium. No complications are seen. IMPRESSION: Successful nontunneled catheter placement. PLAN: The catheter is ready for immediate use. When treatment is completed, this catheter can be removed at the bedside according to standard hospital protocol. Dictated by: Brian Nicholson M.D. The radiology attending physician has personally reviewed this study, and had reviewed and/or edited this written report and agrees with it. Electronically signed by: Dinesh Sofia MD Shelia Campa MD IMG IR PROCEDURES Final Result * POCT glucose (01/03/2025 11:41 AM CDT) Glucose, POC 105 70 - 199 mg/dL Blood 01/03/2025 11:4 1 AM CDT 01/03/2025 11:41 AM CDT Shelia Campa MD LAB POCT ORDERABLES - DEVICE Fi nal Result Performing Organization Address City/[facility]/ZIP Co de Phone Number [facility] [place] [address] * POCT glucose (01/03/2025 8:11 AM CDT) Glucose, POC 96 70 - 199 mg/dL Blood 01/03/2025 8:11 AM CDT 01/03/2025 8:11 AM CDT Shelia Campa MD LAB POCT ORDERABLES - DEVICE Fi nal Result Performing Organization Address [facility] de Phone Number [facility] [place] [place] [address] * (ABNORMAL) eGFR (01/03/2025 7:19 AM CDT) eGFR 40(L) >=60 mL/min/1. 73 m2 Comment: Interpretive Data Reference Interval Normal >/= 90 mL/min/1.73m2 Mildly decreased* 60 - 89 mL/min/1.73m2 Mildly to moderately decreased 45 - 59 mL/min/1.73m2 Moderately to severely decreased 30 - 44 mL/min/1.73m2 Severely decreased 15 - 29 mL/min/1.73m2 Kidney Failure < 15 mL/min/1.73m2 *Relative to young adult level Estimated glomerular filtration rate is determined by the 2020 CKD-EPI equation recommended by the National Kidney Foundation (A Unifying Approach to GFR Estimation: Recommendations of the NKF-ASK Task Force on Reassessing the Inclusion of Race in Diagnosing Kidney Disease, JASN 2020). The CKD-EPI equation should not be used for patients with unstable renal function and has not been validated in children and those over 70. Current interpretive data was last reviewed 2021. Blood 01/03/2025 7:19 AM CDT 01/03/2025 7:42 AM CDT Shelia Campa MD LAB BLOOD ORDERABLES Final Resu lt [facility] Department [place] [address] * (ABNORMAL) Basic metabolic panel (01/03/2025 7:19 AM CDT) Pathologist [facility] [place] Sodium 144 135 - 145 mmol/L Potassium, pl 3.2(L) 3.3 - 4.9 mmol/L [facility] Chloride 112(H) 97 - 110 mmol/L [facility] CO2 19(L) 22 - 32 mmol/L [facility] Anion gap 13 2 - 15 mmol/L [facility] BUN 15 6 - 25 mg/dL [facility] Creatinine 1.60(H) 0.60 - 1.10 mg/dL [facility] Glucose 105 70 - 199 mg/dL [facility] Comment: Interpretive Data Fasting glucose >/= 126 mg/dl is diagnostic for diabetes. Fasting is defined as no caloric intake for at least 8 hours. Fasting glucose between 100 mg/dl to 125 mg/dl is diagnostic of prediabetes. In a patient with classic symptoms of hyperglycemia or hyperglycemic crisis, a random glucose >/= 200 mg/dl is diagnostic for diabetes. In the absence of unequivocal hyperglycemia, results should be confirmed by repeat testing. The classification and Diagnosis of Diabetes Diabetes Care 202; 46: S19-S40. Current interpretive data was last revised 2022. Calcium 10.1 8.5 - 10.3 mg/dL [facility] Blood 01/03/2025 7:1 9 AM CDT 01/03/2025 7:42 AM CDT Shelia Campa MD LAB BLOOD ORDERABLES Final Resu lt [facility] [place] [address] * POCT glucose (01/02/2025 9:19 PM CDT) Glucose, POC 114 70 - 199 mg/dL Blood 01/02/2025 9:19 PM CDT 01/02/2025 9:19 PM CDT us Shelia Campa MD LAB POCT ORDERABLES - DEVICE Fi nal Result Performing Organization Address [facility] de Phone Number [facility] [place] [address] * POCT glucose (01/02/2025 8:25 PM CDT) [facility] Glucose, POC 75 70 - 199 mg/dL Blood 01/02/2025 8:25 PM CDT 01/02/2025 8:25 PM CDT Shelia Campa MD LAB POCT ORDERABLES - DEVICE Fi nal Result Performing Organization Address [facility] Phone Number [facility] [place] [address] * POCT glucose (01/02/2025 11:22 AM CDT) [facility] Glucose, POC 85 70 - 199 mg/dL Blood 01/02/2025 11:2 2 AM CDT 01/02/2025 11:22 AM CDT Shelia Campa MD LAB POCT ORDERABLES - DEVICE Fi nal Result Performing Organization Address [facility] de Phone Number [facility] [place] [address] * (ABNORMAL) eGFR (01/02/2025 6:08 AM CDT) [facility] eGFR 36(L) >=60 mL/min/1. 73 m2 Comment: Interpretive Data Reference Interval Normal >/= 90 mL/min/1.73m2 Mildly decreased* 60 - 89 mL/min/1.73m2 Mildly to moderately decreased 45 - 59 mL/min/1.73m2 Moderately to severely decreased 30 - 44 mL/min/1.73m2 Severely decreased 15 - 29 mL/min/1.73m2 Kidney Failure < 15 mL/min/1.73m2 *Relative to young adult level Estimated glomerular filtration rate is determined by the 2020 CKD-EPI equation recommended by the National Kidney Foundation (A Unifying Approach to GFR Estimation: Recommendations of the NKF-ASK Task Force on Reassessing the Inclusion of Race in Diagnosing Kidney Disease, JASN 2020). The CKD-EPI equation should not be used for patients with unstable renal function and has not been validated in children and those over 70. Current interpretive data was last reviewed 2021. Blood 01/02/2025 6:08 AM CDT 01/02/2025 6:38 AM CDT us Shelia Campa MD LAB BLOOD ORDERABLES Final Resu lt [facility] Department [place] [address] * (ABNORMAL) Basic metabolic panel (01/02/2025 6:08 AM CDT) Sodium 143 135 - 145 mmol/L Potassium, pl 3.3 3.3 - 4.9 mmol/L [facility] Chloride 110 97 - 110 mmol/L [facility] CO2 21(L) 22 - 32 mmol/L [facility] Anion gap 12 2 - 15 mmol/L [facility] BUN 18 6 - 25 mg/dL [facility] Creatinine 1.74(H) 0.60 - 1.10 mg/dL [facility] Glucose 87 70 - 199 mg/dL [facility] Comment: Interpretive Data Fasting glucose >/= 126 mg/dl is diagnostic for diabetes. Fasting is defined as no caloric intake for at least 8 hours. Fasting glucose between 100 mg/dl to 125 mg/dl is diagnostic of prediabetes. In a patient with classic symptoms of hyperglycemia or hyperglycemic crisis, a random glucose >/= 200 mg/dl is diagnostic for diabetes. In the absence of unequivocal hyperglycemia, results should be confirmed by repeat testing. The classification and Diagnosis of Diabetes Diabetes Care 202; 46: S19-S40. Current interpretive data was last revised 2022. Calcium 10.4(H) 8.5 - 10.3 mg/dL [facility] Blood 01/02/2025 6:08 AM CDT 01/02/2025 6:38 AM CDT Shelia Campa MD LAB BLOOD ORDERABLES Final Resu lt Performing Organization Address [facility] Co de Phone Number [facility] [place] [address] * POCT glucose (01/01/2025 8:04 PM CDT) Glucose, POC 86 70 - 199 mg/dL Blood 01/01/2025 8:04 PM CDT 01/01/2025 8:04 PM CDT Shelia Campa MD LAB POCT ORDERABLES - DEVICE Fi nal Result Performing Organization Address [facility] de Phone Number [facility] [place] [address] * POCT glucose (01/01/2025 5:49 PM CDT) Glucose, POC 79 70 - 199 mg/dL Blood 01/01/2025 5:49 PM CDT 01/01/2025 5:49 PM CDT Shelia Campa MD LAB POCT ORDERABLES - DEVICE Fi nal Result Performing Organization Address [facility] de Phone Number [facility] [place] [address] * POCT glucose (01/01/2025 11:20 AM CDT) Glucose, POC 83 70 - 199 mg/dL Blood 01/01/2025 11:2 0 AM CDT 01/01/2025 11:20 AM CDT Shelia Campa MD LAB POCT ORDERABLES - DEVICE Fi nal Result Performing Organization Address [facility] Co de Phone Number [facility] [place] [address] * POCT glucose (01/01/2025 7:40 AM CDT) Glucose, POC 107 70 - 199 mg/dL Blood 01/01/2025 7:40 AM CDT 01/01/2025 7:40 AM CDT Shelia Campa MD LAB POCT ORDERABLES - DEVICE Fi nal Result Performing Organization Address [facility] de Phone Number [facility] [place] [address] * (ABNORMAL) eGFR (01/01/2025 5:56 AM CDT) eGFR 34(L) >=60 mL/min/1. 73 m2 Comment: Interpretive Data Reference Interval Normal >/= 90 mL/min/1.73m2 Mildly decreased* 60 - 89 mL/min/1.73m2 Mildly to moderately decreased 45 - 59 mL/min/1.73m2 Moderately to severely decreased 30 - 44 mL/min/1.73m2 Severely decreased 15 - 29 mL/min/1.73m2 Kidney Failure < 15 mL/min/1.73m2 *Relative to young adult level Estimated glomerular filtration rate is determined by the 2020 CKD-EPI equation recommended by the National Kidney Foundation (A Unifying Approach to GFR Estimation: Recommendations of the NKF-ASK Task Force on Reassessing the Inclusion of Race in Diagnosing Kidney Disease, JASN 2020). The CKD-EPI equation should not be used for patients with unstable renal function and has not been validated in children and those over 70. Current interpretive data was last reviewed 2021. Blood 01/01/2025 5:56 AM CDT 01/01/2025 6:28 AM CDT us Traci Diggs MD LAB BLOOD ORDERA BLES Final Result Performing Organization Address [facility] Co de Phone Number [facility] Department [place] [address] * (ABNORMAL) CBC without differential (01/01/2025 5:56 AM CDT) WBC 7.04 3.80 - 9.90 K/cumm Hgb 8.1(L) 11.9 - 15.5 g/dL [facility] Hct 25.9(L) 35.6 - 45.5 % [facility] Plt 398 150 - 400 K/cumm [facility] MPV 10.1 9.1 - 12.3 fL [facility] RBC 3.00(L) 3.90 - 5.20 M/cumm [facility] MCV 86.3 81.3 - 96.4 fL [facility] MCH 27.0(L) 27.1 - 33.3 pg [facility] MCHC 31.3(L) 32.3 - 35.7 g/dL [facility] RDW CV 17.2(H) 11.1 - 14.9 % [facility] RDW SD 53.7(H) 35.7 - 48.1 fL [facility] NRBC abs 0.00 0.00 - 0.01 K/cumm [facility] Blood 01/01/2025 5:56 AM CDT 01/01/2025 6:27 AM CDT us Rand Pablo MD LAB BLOOD ORDERABLES Final Result Performing Organization Address [facility]/ZIP Co de Phone Number [facility] Department [place] [address] * (ABNORMAL) Phosphorus (01/01/2025 5:56 AM CDT) Phosphorus, pl 4.7(H) 2.3 - 4.5 mg/dL Blood 01/01/2025 5:56 AM CDT 01/01/2025 6:26 AM CDT Rand Pablo MD LAB BLOOD ORDERABLES Final Result Performing Organization Address [facility]/ZIP Co de Phone Number [facility] Department [place] [address] * Magnesium (01/01/2025 5:56 AM CDT) [facility] Magnesium 2.1 1.4 - 2.5 mg/dL Blood 01/01/2025 5:56 AM CDT 01/01/2025 6:26 AM CDT Rand Pablo MD LAB BLOOD ORDERABLES Final Result Performing Organization Address [facility] Co de Phone Number [facility] Department [place] [address] * (ABNORMAL) Basic metabolic panel (01/01/2025 5:56 AM CDT) [facility] Sodium 145 135 - 145 mmol/L Potassium, pl 4.1 3.3 - 4.9 mmol/L [facility] Comment:Hemolyzed; Potassium value may be falsely elevated by as much as 0.3-0.5 mmol/L. Suggest redraw and reanalysis. Chloride 110 97 - 110 mmol/L [facility] CO2 20(L) 22 - 32 mmol/L [facility] Anion gap 15 2 - 15 mmol/L [facility] BUN 21 6 - 25 mg/dL [facility] Creatinine 1.85(H) 0.60 - 1.10 mg/dL [facility] Glucose 90 70 - 199 mg/dL [facility] Comment: Interpretive Data Fasting glucose >/= 126 mg/dl is diagnostic for diabetes. Fasting is defined as no caloric intake for at least 8 hours. Fasting glucose between 100 mg/dl to 125 mg/dl is diagnostic of prediabetes. In a patient with classic symptoms of hyperglycemia or hyperglycemic crisis, a random glucose >/= 200 mg/dl is diagnostic for diabetes. In the absence of unequivocal hyperglycemia, results should be confirmed by repeat testing. The classification and Diagnosis of Diabetes Diabetes Care 202; 46: S19-S40. Current interpretive data was last revised 2022. Calcium 10.2 8.5 - 10.3 mg/dL [facility] Blood 01/01/2025 5:56 AM CDT 01/01/2025 6:26 AM CDT Traci Diggs MD LAB BLOOD ORDERA BLES Final Result [facility] [place] [address] * POCT glucose (12/31/2024 8:11 PM CDT) Glucose, POC 100 70 - 199 mg/dL Blood 12/31/2024 8:11 PM CDT 12/31/2024 8:11 PM CDT us Shelia Campa MD LAB POCT ORDERABLES - DEVICE Fi nal Result Performing Organization Address [facility]/ZIP Co de Phone Number [facility] Department [place] [address] * (ABNORMAL) eGFR (12/31/2024 5:44 PM CDT) eGFR 35(L) >=60 mL/min/1. 73 m2 Comment: Interpretive Data Reference Interval Normal >/= 90 mL/min/1.73m2 Mildly decreased* 60 - 89 mL/min/1.73m2 Mildly to moderately decreased 45 - 59 mL/min/1.73m2 Moderately to severely decreased 30 - 44 mL/min/1.73m2 Severely decreased 15 - 29 mL/min/1.73m2 Kidney Failure < 15 mL/min/1.73m2 *Relative to young adult level Estimated glomerular filtration rate is determined by the 2020 CKD-EPI equation recommended by the National Kidney Foundation (A Unifying Approach to GFR Estimation: Recommendations of the NKF-ASK Task Force on Reassessing the Inclusion of Race in Diagnosing Kidney Disease, JASN 2020). The CKD-EPI equation should not be used for patients with unstable renal function and has not been validated in children and those over 70. Current interpretive data was last reviewed 2021. Blood 12/31/2024 5:44 PM CDT 12/31/2024 7:04 PM CDT us Shelia Campa MD LAB BLOOD ORDERABLES Final Resu lt [facility] [place] [address] * (ABNORMAL) Basic metabolic panel (12/31/2024 5:44 PM CDT) Sodium 149(H) 135 - 145 mmol/L Potassium, pl 3.4 3.3 - 4.9 mmol/L [facility] Chloride 114(H) 97 - 110 mmol/L [facility] CO2 16(L) 22 - 32 mmol/L [facility] Anion gap 19(H) 2 - 15 mmol/L [facility] BUN 22 6 - 25 mg/dL [facility] Creatinine 1.82(H) 0.60 - 1.10 mg/dL [facility] Glucose 85 70 - 199 mg/dL [facility] Comment: Interpretive Data Fasting glucose >/= 126 mg/dl is diagnostic for diabetes. Fasting is defined as no caloric intake for at least 8 hours. Fasting glucose between 100 mg/dl to 125 mg/dl is diagnostic of prediabetes. In a patient with classic symptoms of hyperglycemia or hyperglycemic crisis, a random glucose >/= 200 mg/dl is diagnostic for diabetes. In the absence of unequivocal hyperglycemia, results should be confirmed by repeat testing. The classification and Diagnosis of Diabetes Diabetes Care 2021; 46: S19-S40. Current interpretive data was last revised 2022. Calcium 9.6 8.5 - 10.3 mg/dL [facility] Blood 12/31/2024 5:44 PM CDT 12/31/2024 7:04 PM CDT Shelia Campa MD LAB BLOOD ORDERABLES Final Resu lt Performing Organization Address [facility]/ZIP Co de Phone Number [facility] [place] [address] * POCT glucose (12/31/2024 5:24 PM CDT) Glucose, POC 92 70 - 199 mg/dL Blood 12/31/2024 5:24 PM CDT 12/31/2024 5:24 PM CDT Shelia Campa MD LAB POCT ORDERABLES - DEVICE Fi nal Result Performing Organization Address [facility] Co de Phone Number [facility] [place] [address] * Critical Result Callback Chemistry (12/31/2024 4:13 PM CDT) Date Notified 20241231 Time Notified 17:02 [facility] TestName pH Babak [facility] Called/Read Back Daylin BALDW[facility] Credentials RN [facility] Called By [facility] Blood 12/31/2024 4:13 PM CDT 12/31/2024 4:47 PM CDT Shelia Campa MD LAB BLOOD ORDERABLES Final Resu lt Performing Organization Address [facility]/[place] [address] * (ABNORMAL) Blood gas, venous (12/31/2024 4:13 PM CDT) pH, Venous 7.20(C) 7.32 - 7.43 Comment:Repeated and verifie d. PCO2, Venous 41 40 - 50 mmHg [facility] PO2, Venous 54 mmHg [facility] Comment: Interpretive Data No Reference Range Established Current Interpretive Data was last revised on 2017. HCO3 Venous, Calculated 15(L) 20 - 30 mmol/L [facility] BE, venous -12 mmol/L [facility] Comment: Interpretive Data No Reference Range Established Current Interpretive Data was last revised on 2017. Blood 12/31/2024 4:13 PM CDT 12/31/2024 4:47 PM CDT Shelia Campa MD LAB BLOOD ORDERABLES Final Resu lt Performing Organization Address [facility] Co de Phone Number [facility] [place] [address] * Ammonia (12/31/2024 4:13 PM CDT) Ammonia <20 <=50 mcmol/L Comment:Repeated and Verifie d Blood 12/31/2024 4:13 PM CDT 12/31/2024 4:45 PM CDT Shelia Campa MD LAB BLOOD ORDERABLES Final Resu lt Performing Organization Address [facility] de Phone Number [facility] [place] [address] * POCT glucose (12/31/2024 11:47 AM CDT) Glucose, POC 113 70 - 199 mg/dL Blood 12/31/2024 11:4 7 AM CDT 12/31/2024 11:47 AM CDT us Shelia Campa MD LAB POCT ORDERABLES - DEVICE Fi nal Result Performing Organization Address [facility] Co de Phone Number [facility] [place] [address] * POCT glucose (12/31/2024 9:54 AM CDT) Glucose, POC 93 70 - 199 mg/dL Blood 12/31/2024 9:54 AM CDT 12/31/2024 9:54 AM CDT Shelia Campa MD LAB POCT ORDERABLES - DEVICE Fi nal Result Performing Organization Address [facility] Co de Phone Number [facility] [place] [address] * POCT glucose (12/31/2024 7:58 AM CDT) Glucose, POC 97 70 - 199 mg/dL Blood 12/31/2024 7:58 AM CDT 12/31/2024 7:58 AM CDT Shelia Campa MD LAB POCT ORDERABLES - DEVICE Fi nal Result Performing Organization Address [facility] de Phone Number [facility] [place] [address] * (ABNORMAL) eGFR (12/31/2024 6:07 AM CDT) eGFR 32(L) >=60 mL/min/1. 73 m2 Comment: Interpretive Data Reference Interval Normal >/= 90 mL/min/1.73m2 Mildly decreased* 60 - 89 mL/min/1.73m2 Mildly to moderately decreased 45 - 59 mL/min/1.73m2 Moderately to severely decreased 30 - 44 mL/min/1.73m2 Severely decreased 15 - 29 mL/min/1.73m2 Kidney Failure < 15 mL/min/1.73m2 *Relative to young adult level Estimated glomerular filtration rate is determined by the 2020 CKD-EPI equation recommended by the National Kidney Foundation (A Unifying Approach to GFR Estimation: Recommendations of the NKF-ASK Task Force on Reassessing the Inclusion of Race in Diagnosing Kidney Disease, JASN 2020). The CKD-EPI equation should not be used for patients with unstable renal function and has not been validated in children and those over 70. Current interpretive data was last reviewed 2021. Blood 12/31/2024 6:07 AM CDT 12/31/2024 6:26 AM CDT us Shelia Campa MD LAB BLOOD ORDERABLES Final Resu lt [facility] [place] [address] * (ABNORMAL) Basic metabolic panel (12/31/2024 6:07 AM CDT) [facility] Signature Sodium 145 135 - 145 mmol/L Potassium, pl 3.9 3.3 - 4.9 mmol/L [facility] Comment:Hemolyzed; Potassium value may be falsely elevated by as much as 0.3-0.5 mmol/L. Suggest redraw and reanalysis. Chloride 115(H) 97 - 110 mmol/L [facility] CO2 20(L) 22 - 32 mmol/L [facility] Anion gap 10 2 - 15 mmol/L [facility] BUN 25 6 - 25 mg/dL [facility] Creatinine 1.96(H) 0.60 - 1.10 mg/dL [facility] Glucose 90 70 - 199 mg/dL [facility] Comment: Interpretive Data Fasting glucose >/= 126 mg/dl is diagnostic for diabetes. Fasting is defined as no caloric intake for at least 8 hours. Fasting glucose between 100 mg/dl to 125 mg/dl is diagnostic of prediabetes. In a patient with classic symptoms of hyperglycemia or hyperglycemic crisis, a random glucose >/= 200 mg/dl is diagnostic for diabetes. In the absence of unequivocal hyperglycemia, results should be confirmed by repeat testing. The classification and Diagnosis of Diabetes Diabetes Care 202; 46: S19-S40. Current interpretive data was last revised 2022. Calcium 10.1 8.5 - 10.3 mg/dL [facility] Blood 12/31/2024 6:07 AM CDT 12/31/2024 6:26 AM CDT us Shelia Campa MD LAB BLOOD ORDERABLES Final Resu lt [facility] [place] [address] * Colonoscopy (11/03/2024 3:57 PM CDT) Anatomical Region Laterality Modality Other Narrative Procedure Note Dori Chen MD - 11/03/2024 3:57 PM CDT [facility] Patient Name: Nina Macias Procedure Date: 11/03/2024 3:57 PM Date of : 1980 Admit Type: Inpatient Age: 44 Gender: Female Attending MD: Dori Chen M.D., Room: [facility] ENDOSCOPY Note Status: Finalized Procedure: Colonoscopy Indications: Follow-up of diverticulitis, Colovesical fistula Referring MD: Gale Case M.D. Providers: Dori Chen M.D. Comorbidities Recurrent diverticulitis c/b colovesical fistula, recurrent UTIs iso fecaluria, nephrolithiasis, strong family history of colon cancer (multiple relatives with colon cancer), and Class 3 obesity (BMI52.9) and anxiety who presented with abdominal pain and was found to haveUTI and CTAP with unchanged acute on chronic diverticulitis. GI isconsulted for inpatient colonoscopy to prepare for colorectal surgery per CRS request. Medicines: Monitored Anesthesia Care Complications: No immediate complications. Estimated Blood Loss: Estimated blood loss: none. Procedure: Pre-Anesthesia Assessment: - [place] Protocol: - Pre-procedure Verification: Prior to theprocedure, the patient's identity was verified by full nameand date of . The patient's identity was verifiedon all pertinent medical records, including pre-anesthesia assessment. Also prior to the procedure, a History and Physical was performed,and patient medications, allergies and sensitivitieswere reviewed. The patient's tolerance of previous anesthesia was reviewed. The patient is competent.The risks and benefits of the procedure and thesedation options and risks were discussed with the patient.All questions were answered and informed consent was obtained. - Marking: The endoscopic procedure was visually marked on a patient wrist band delineating thepatient name, proposed procedure and endoscopist'sinitials. - Time-Out: Prior to the start of the procedure,the patient's identification, proposed procedure,accurate signed consent, correctly labeled images andrecords, and need for prophylactic antibiotics were verifiedby the nurse in the endoscopy suite. - Prior to the procedure, a History and Physicalwas performed, and patient medications, allergies and sensitivities were reviewed. The patient'stolerance of previous anesthesia was reviewed. - The risks and benefits of the procedure and the sedation options and risks were discussed with the patient. All questions were answered and informed consent was obtained. - Immediately prior to administration ofmedications, the patient was re-assessed for adequacy to receive sedatives. The benefits, risks and alternatives of theprocedure and sedation were discussed and informed consentwas obtained. All questions were answered. Please referto the signed informed consent document in the medical record. The scope was passed under direct vision.The [id number] Endoscope was introduced through the anus with the intention of advancing to thececum. The scope was advanced to the sigmoid colon beforethe procedure was aborted. Medications were given. The scope was passed under direct vision. The PCF [id number] endoscope was introduced through the anus with the intention of advancing to the cecum. The scope was advanced to the sigmoid colon before the procedure was aborted. Medications were given. The scope was passed under direct vision. The GIF [id number] endoscope was introduced through the anusand advanced to the cecum, identified by the ileocecal valve. The colonoscopy was performed without difficulty. The patient tolerated the procedurewell. The quality of the bowel preparation was adequate.The quality of the bowel preparation was evaluatedusing the BBPS ([place] Bowel Preparation Scale) withscores of: Right Colon = 2 (minor amount of residual staining, small fragments of stool and/or opaque liquid, but mucosa seen well), Transverse Colon = 2 (minor amount of residual staining, small fragmentsof stool and/or opaque liquid, but mucosa seen well)and Left Colon = 2 (minor amount of residual staining, small fragments of stool and/or opaque liquid, but mucosa seen well). The total BBPS score equals 6.The bowel preparation used was GoLYTELY via split dose instruction. Findings: The perianal and digital rectal examinations were normal. An extrinsic moderate stenosis measuring 5 cm (in length) was foundin the sigmoid colon and was traversed. Multiple diverticula were found in the entire colon. There wasnarrowing of the colon in association with the diverticular opening. The exam was otherwise without abnormality on direct and retroflexion views. Impression: - Extrinsic stenosis in the sigmoid colon. Moderate diverticulosis in the entire examined colon. Therewas extrinsic narrowing of the colon in associationwith the diverticular opening (fistula not seen on this exam but no cancer, polyps or masses were seen inthis area). The area of narrowing was from 35-40cm fromthe anus. The diameter of the CF or PCF could notsafely traverse this area. Therefore, we switched to a GIF which could navigate this extrinsic stenosis/external tethering safely. - The examination was otherwise normal on directand retroflexion views. The cecal base was not fully examined due to needing GIF to navigate thesigmoid, but there were no other large obvious lesions onthe exam (small polyps could have been missed). - No specimens collected. Recommendation: - Return patient to hospital [facility] for ongoingcare. - Repeat colonoscopy after surgery for diverticular disease for screening with family history (unableto clear cecal base of small polyps on today'sexam). - Defer to surgery for timing of next steps. Wouldnot recommend further endoscopic interventions prior to surgery. - Further recommendations per the inpatient GIservice. - Continue Abx pre infectious disease. Attending Participation: I personally performed the entire procedure. Electronically signed by Dori Chen MD Dori Chen M.D. 11/03/2024 4:51:39 PM Number of Addenda: 0 Note Initiated On: 11/03/2024 3:57 PM us Dori Chen MD ENDOSCOPY PROCEDURES Final Result * Hepatitis C antibody Blood (09/18/2024 9:32 PM CDT) Hep C Ab Nonreactive Nonreactive Comment:Antibodies to HCV no t detected. Does NOT exclude the possibility of recent exposure to HCV. 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 Insurance [facility] Advance Directives For more information, please contact: [phone] * Full Code (Latest Code Status on File) Date Activated Date Inactivated Comments 02/24/2025 7:22 AM 03/03/2025 9:58 PM * Full Code Date Activated Date Inactivated Comments 10/31/2024 2:03 AM 01/30/2025 7:56 PM * Full Code Date Activated Date Inactivated Comments 10/06/2024 1:29 PM 10/22/2024 7:20 PM * Full Code Date Activated Date Inactivated Comments 09/14/2024 9:41 PM 09/29/2024 11:09 PM * Full Code Date Activated Date Inactivated Comments 07/07/2024 2:26 AM 2024 12:31 AM Care Teams Rn Palliative Relationship Specialty Start Date End Date Manny Camacho MD PhD [address] [place] [address] PCP - General Internal Medicine 02/23/25 Gerry Kearns MD [address] [phone] [place] [address] Surgeon Colon and Rectal Surgery 07/02/24
--- OUTSIDE RECORDS SUMMARY | 2025-04-01 21:00 | XMS_ITS | Encounter Summary ---
Author Organization [facility] Address [address] [facility] [address] [place] [address] Phone Care Team Providers Care Vat House Supervisor Name Role Phone Byron Carter MD Primary Care Provider [phone] Gerry Kearns MD Unavailable [phone] Tali Sotelo LCSW Unavailable [phone] Leah Jean RN Unavailable [phone] No, Physician Primary Care Provider [phone] Manny Camacho MD PhD Primary Care Provider Encounter Details Date Type Department Care Team (Late st Contact Info) Description 06/23/2024 Telephone [facility] Medicine Surgery [address] [facility] Floor [address] [place] [address] Gerry Kearns MD [address] [facility] [phone] [place], [place] [id number] Social History Tobacco Use Types Packs/Day Years Used Date Smoking Tobacco: Never Personal Safety Answer Date Recorded Have you ever been in or are you currently in a harmful physical or emotional relationship or is someone making you feel afraid or unsafe? 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 difficile suspected 08/03/2024 08/03/202408/03 12:18 PM CDT COVID: Suspected 08/24/2024 08/24/2024 08/24/2024 9:52 AM CDT C. difficile suspected 08/30/2024 08/30/202408/31 6:48 AM CDT Ring Surveillance: C. auris Comment:6300 - weekly swab Sunday11/23/2024 11/23/20242024 9:18 AM CDT COVID: Suspected 12/13/2024 12/13/2024 12/13/2024 11:28 AM CDT C. difficile suspected 12/13/2024 12/13/202412/15 1:40 PM CDT C. difficile suspected 01/08/2025 01/08/202501/09 1:24 AM CDT documented as of this encounter Care Teams Vat House Supervisor Relationship Specialty Start Date End Date Byron Carter MD PCP - General Family Medicine 06/17/24 02/17/25 No, Physician PCP - General 02/18/25 02/22/25 Manny Camacho MD PhD [address] [place] [address] PCP - General Internal Medicine 02/23/25 Gerry Kearns MD [address] [phone] [place] [address] Surgeon Colon and Rectal Surgery 07/02/24 Tali Sotelo, DISPLAY ARTIST [address] [facility] ([facility]) Mailstop [phone] [place] [address] [facility]patient [facility] 09/08/24 10/01/24 Leah Jean, RN [address] [facility] [address] [place] [address] [facility] 10/23/24 10/27/24 documented as of this encounter
--- OUTSIDE RECORDS SUMMARY | 2025-04-01 21:00 | XMS_ITS | Data Portability ---
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 Documentation was reviewed, and I agree w/resident's note. Dr. Baldwin [email or web address] Not available 06/30/2024 06:42:45 Plan of Treatment Reminders Order Date Submit Date Provider Last Modified By Organization Details Last Modified Time Details Appointments None recorded. Lab CBC w/ auto diff 2023 024 [facility], [address] [facility] [address], [place], [address], 4 19:08:32 CMP, serum or plasma 2023 024 [facility], [address] [facility] [address], [place], [address], 4 19:08:31 TSH, ultra-sen sitive, serum 2023 024 [facility], [address] [place] [address] 2, [place], [address], 4 10:13:43 vitamin D, 25-hydrox y, total, serum 2023 024 [facility], [address] [facility], [place], [address], 4 10:13:46 HbA1c (hemoglob in A1c), blood 2023 024 [facility], [address] [facility], [facility], [place], [address], 4 10:13:44 lipid panel, serum 2023 024 [facility], [address] [facility], [facility], [place], [address], 4 19:08:30 Referral site technician referral 2023 024 [email or web address] [address] Alison Hensley, [address] [facility], [place], [address], 4 11:47:14 general surgeon referral - hernia of anterior abdominal wall [address] - General Surgery, [address] [place] [address] [address], [place], [address], 4 11:47:14 gastroent erologist referral - due for colonosco py, father diagnosed age 38 2023 024 tadeo Donnelly MD, [address] [facility], [address], [place], [address], 4 08:50:44 Procedures None recorded. Surgeries None recorded. Imaging electroca rdiogram, routine ECG, 12 leads min - tachycard ia [address], 1 [facility], [place], [address], 4 16:28:31 PFT, complete - dyspnea and wheezing improved with albuterol , no formal testing in the past [address], [address] [place], [address], 4 18:50:59 electroca rdiogram, routine ECG, 12 leads min [address], [address] [place], [address], 4 08:17:50 Medication Orders zolpidem 5 mg tablet 2024 025 [email or web address] [facility]69131, 2 [facility], [place], [place], [id number], 5 16:28:10 levothyro xine 75 mcg tablet 2023 024 [email or web address], [address] [place], [place], [id number], 5 15:47:44 rosuvasta tin 10 mg tablet 2023 024 [id number] 4 [facility]177[facility], [address] [place], [id number], 5 19:28:33 Saline Nasal 0.65 % spray aerosol 2023 024 [id number] 644 [facility], [address] [place], [id number], 5 19:28:33 cetirizin e 10 mg tablet 2023 024 [facility], [address] [facility], [place], [place], [id number], 4 08:55:28 Lexapro 20 mg tablet 2023 [facility] #14392, [address], [place], [place], [id number], 4 08:55:29 sumatript an 100 mg tablet 2023 [facility] #20782, [address], [place], [place], [id number], 4 08:55:28 ferrous sulfate 324 mg (65 mg iron) tablet,de layed release 2023 [facility] #97517, [address], [place], [place], [id number], 4 10:45:04 albuterol sulfate HFA 90 mcg/actua tion aerosol inhaler 2023 [facility] #49604, [address], [place], [place], [id number], 4 08:55:27 sumatript an 100 mg tablet 2023 [facility] #85773, [address], [place], [place], [id number], 4 09:51:49 Lexapro 20 mg tablet 2023 [facility] #69774, [address], [place], [place], [id number], 4 09:51:55 Patient TargetsNo targets recorded. Patient Instructions Encounter Date Encounter Id Patient Instructions Last Modified By Organization Details Last Modified Time 11/05/2023 [id number] A healthy lifestyle: care instructions [email or web address] Not available 11/05/2023 09:45:19 On the date of this encounter, I was immediately available to assist the resident/fellow in the care of the patient, and have reviewed and agree with the resident s findings and plan of care. MD Amira [email or web address] Not available 11/05/2023 09:27:28 12/06/2023 [id number] learning about t he mediterranean diet [email or web address] Not available 12/07/2023 08:47:41 Attending Physician Attestation I personally saw and examined the patient with the resident. I have reviewed the documentation and agree with the history, physical findings, work-up, and medical decision making as recorded. Annemarie Fajardo MD [email or web address] Not available 12/06/2023 18:00:39 06/13/2024 [id number] I was present in the clinic to discuss this patient at the time of the visit. I agree with the documented assessment and plan with the following additions: Genoveva Reyna MD [email or web address] Not available 06/13/2024 17:08:02 06/27/2024 [id number] back care and preventing injuries: care instructions [email or web address] Not available 06/27/2024 16:48:11 kidney stone: ca re instructions [email or web address] Not available 06/27/2024 16:48:10 learning about diet for kidney stone prevention [email or web address] Not available 06/27/2024 16:48:11 A healthy lifestyle: care instructions [email or web address] Not available 06/27/2024 16:48:10 Reason for Referral Hunter Trapper Referral for Family history of cancer of colon due for colonoscopy, father diagnosed age 38 due for colonoscopy, father diagnosed age 38 Referring Physician: General Aline Jay, Encounter Date: 11/05/2023 General Surgeon Referral for Hernia of anterior abdominal wall hernia of anterior abdominal wall hernia of anterior abdominal wall Referring Physician: General Aline Jay, Encounter Date: 11/05/2023 Tubing Mill Setter Referral f or Type 2 diabetes mellitus Referring Physician: General Aline Jay, Encounter Date: 12/06/2023 Results Created Date Observation Date Name Description Value Unit Range Abnormal Flag Note LastModifiedBy Organization Detail LastModifiedTime 11/05/19 24 11/05/2023 LIPID PANEL cholesterol, total 188 mg/dL 100-19 9 Not Available [facility] [address] [place], [address], 11/05/2023 19:08:30 11/05/19 24 11/05/2023 LIPID PANEL triglyceride s 179 mg/dL 0-149 above high normal Not Available [facility] [address] [place], [address], 11/05/2023 19:08:30 11/05/19 24 11/05/2023 LIPID PANEL HDL cholesterol 37 mg/dL 40-999 below low normal Not Available [facility] [address] [place], [address], 11/05/2023 19:08:30 11/05/19 24 11/05/2023 LIPID PANEL VLDL cholesterol gloria 36 mg/dL 5-40 Not Available [facility] [address] [place], [address], 11/05/2023 19:08:30 11/05/19 24 11/05/2023 LIPID PANEL LDL chol calc (nih) 140 mg/dL 0-99 above high normal Not Available [facility] [address] [place], [address], 11/05/2023 19:08:30 11/05/19 24 11/05/2023 COMP. METAB OLIC PANEL (14) glucose 154 mg/dL 70-99 above high normal Not Available [facility] [address] [place], [address], 11/05/2023 19:08:31 11/05/19 24 11/05/2023 COMP. METAB OLIC PANEL (14) BUN 23 mg/dL 6-24 Not Available [facility] [address] [place], [address], 11/05/2023 19:08:31 11/05/19 24 11/05/2023 COMP. METAB OLIC PANEL (14) creatinine 0.92 mg/dL 0.76-1 .27 Not Available [facility] [address] [place], [address], 11/05/2023 19:08:31 11/05/19 24 11/05/2023 COMP. METAB OLIC PANEL (14) eGFR 79 >=60 Units for eGFR value s are mL/mi n/1.7 3 The eGFR Calcu latio n has not been valid ated for patie nts under the age of 18. If test resul ts are displ ayed for a patie nt under the age of 18, disre franck that value . Not Available [facility] [address] [place] [address], [address], 11/05/2023 19:08:31 11/05/19 24 11/05/2023 COMP. METAB OLIC PANEL (14) BUN/creatini ne ratio 25 9-23 above high normal Not Available [facility] [address] [place] [address], [address], 11/05/2023 19:08:31 11/05/19 24 11/05/2023 COMP. METAB OLIC PANEL (14) sodium 137 mmol/ L 134-14 4 Not Available [facility] [address] [place] [address], [address], 11/05/2023 19:08:31 11/05/19 24 11/05/2023 COMP. METAB OLIC PANEL (14) potassium 4.4 mmol/ L 3.5-5. 2 Not Available [facility] [address] [place] [address], [address], 11/05/2023 19:08:31 11/05/19 24 11/05/2023 COMP. METAB OLIC PANEL (14) chloride 99 mmol/ L 96-106 Not Available [facility] [address] [place], [address], 11/05/2023 19:08:31 11/05/19 24 11/05/2023 COMP. METAB OLIC PANEL (14) carbon dioxide, total 25 mmol/ L 20-29 Not Available [facility] [address] [place], [address], 11/05/2023 19:08:31 11/05/19 24 11/05/2023 COMP. METAB OLIC PANEL (14) calcium 9.7 mg/dL 8.7-10 .2 Not Available [facility] [address] [place], [address], 11/05/2023 19:08:31 11/05/19 24 11/05/2023 COMP. METAB OLIC PANEL (14) protein, total 7.1 g/dL 6.0-8. 5 Not Available [facility] [address] [place], [address], 11/05/2023 19:08:31 11/05/19 24 11/05/2023 COMP. METAB OLIC PANEL (14) albumin 3.8 g/dL 3.9-4. 9 below low normal Not Available [facility] [address] [place], [address], 11/05/2023 19:08:31 11/05/19 24 11/05/2023 COMP. METAB OLIC PANEL (14) globulin, total 3.3 g/dL 1.5-4. 5 Not Available [facility] [address] [place], [address], 11/05/2023 19:08:31 11/05/19 24 11/05/2023 COMP. METAB OLIC PANEL (14) A/G ratio 1.0 1.2-2. 2 below low normal Not Available [facility] [address] [place], [address], 11/05/2023 19:08:31 11/05/19 24 11/05/2023 COMP. METAB OLIC PANEL (14) bilirubin, total <=0.2 mg/dL 0.0-1. 2 Not Available [facility] [address] [place], [address], 11/05/2023 19:08:31 11/05/19 24 11/05/2023 COMP. METAB OLIC PANEL (14) alkaline phosphatase 115 IU/L 44-121 Not Available [facility] [address] [place], [address], 11/05/2023 19:08:31 11/05/19 24 11/05/2023 COMP. METAB OLIC PANEL (14) AST (SGOT) 10 IU/L 0-40 Not Available [facility] [address] [place], [address], 11/05/2023 19:08:31 11/05/19 24 11/05/2023 COMP. METAB OLIC PANEL (14) ALT (SGPT) 13 IU/L 0-32 Not Available [facility] [address] [place], [address], 11/05/2023 19:08:31 11/05/19 24 11/05/2023 CBC WITH DIFFE RENTI AL/PL ATELE T WBC 11.1 x10e3 /uL 3.4-10 .8 above high normal Not Available [facility] [address] [place], [address], 11/05/2023 19:08:32 11/05/19 24 11/05/2023 CBC WITH DIFFE RENTI AL/PL ATELE T RBC 4.60 x10e6 /uL 3.77-5 .28 Not Available [facility] [address] [place], [address], 11/05/2023 19:08:32 11/05/19 24 11/05/2023 CBC WITH DIFFE RENTI AL/PL ATELE T hemoglobin 9.9 g/dL 11.1-1 5.9 below low normal Not Available [facility] [address] [place], [address], 11/05/2023 19:08:32 11/05/19 24 11/05/2023 CBC WITH DIFFE RENTI AL/PL ATELE T hematocrit 35.3 % 34.0-4 6.6 Not Available [facility] [address] [place], [address], 11/05/2023 19:08:32 11/05/19 24 11/05/2023 CBC WITH DIFFE RENTI AL/PL ATELE T MCV 77 fL 79-97 below low normal Not Available [facility] [address] [place], [address], 11/05/2023 19:08:32 11/05/19 24 11/05/2023 CBC WITH DIFFE RENTI AL/PL ATELE T MCH 21.5 pg 26.6-3 3.0 below low normal Not Available [facility] [address] [place], [address], 11/05/2023 19:08:32 11/05/19 24 11/05/2023 CBC WITH DIFFE RENTI AL/PL ATELE T MCHC 28.0 g/dL 31.5-3 5.7 below low normal Not Available [facility] [address] [place], [address], 11/05/2023 19:08:32 11/05/19 24 11/05/2023 CBC WITH DIFFE RENTI AL/PL ATELE T RDW 18.6 % 11.5-1 4.5 above high normal Not Available [facility] [address] [place], [address], 11/05/2023 19:08:32 11/05/19 24 11/05/2023 CBC WITH DIFFE RENTI AL/PL ATELE T platelets 357 x10e3 /uL 150-45 0 Not Available [facility] [address] [place], [address], 11/05/2023 19:08:32 11/05/19 24 11/05/2023 CBC WITH DIFFE RENTI AL/PL ATELE T neutrophils 74 % notest b. Not Available [facility] [address] [place], [address], 11/05/2023 19:08:32 11/05/19 24 11/05/2023 CBC WITH DIFFE RENTI AL/PL ATELE T lymphs 17 % notest b. Not Available [facility] [address] [place], [address], 11/05/2023 19:08:32 11/05/19 24 11/05/2023 CBC WITH DIFFE RENTI AL/PL ATELE T monocytes 6 % notest b. Not Available [facility] [address] [place], [address], 11/05/2023 19:08:32 11/05/19 24 11/05/2023 CBC WITH DIFFE RENTI AL/PL ATELE T eos 2 % notest b. Not Available [facility] [address] [place], [address], 11/05/2023 19:08:32 11/05/19 24 11/05/2023 CBC WITH DIFFE RENTI AL/PL ATELE T basos 1 % notest b. Not Available [facility] [address] [place], [address], 11/05/2023 19:08:32 11/05/19 24 11/05/2023 CBC WITH DIFFE RENTI AL/PL ATELE T neutrophils (absolute) 8.2 x10e3 /uL 1.4-7. 0 above high normal Not Available [facility] [address] [place], [address], 11/05/2023 19:08:32 11/05/19 24 11/05/2023 CBC WITH DIFFE RENTI AL/PL ATELE T lymphs (absolute) 1.9 x10e3 /uL 0.7-3. 1 Not Available [facility] [address] [place], [address], 11/05/2023 19:08:32 11/05/19 24 11/05/2023 CBC WITH DIFFE RENTI AL/PL ATELE T monocytes(ab solute) 0.6 x10e3 /uL 0.1-0. 9 Not Available [facility] [address] [place], [address], 11/05/2023 19:08:32 11/05/19 24 11/05/2023 CBC WITH DIFFE RENTI AL/PL ATELE T eos (absolute) 0.3 x10e3 /uL 0.0-0. 4 Not Available [facility] [address] [place], [address], 11/05/2023 19:08:32 11/05/19 24 11/05/2023 CBC WITH DIFFE RENTI AL/PL ATELE T baso (absolute) 0.1 x10e3 /uL 0.0-0. 2 Not Available [facility] [address] [place], [address], 11/05/2023 19:08:32 11/05/19 24 11/05/2023 CBC WITH DIFFE RENTI AL/PL ATELE T immature granulocytes 0.6 % notest b. Not Available [facility] [address] [place], [address], 11/05/2023 19:08:32 11/05/19 24 11/05/2023 CBC WITH DIFFE RENTI AL/PL ATELE T immature grans (abs) 0.1 x10e3 /uL 0.0-0. 1 Not Available [facility] [address] [place], [address], 11/05/2023 19:08:32 11/05/19 24 11/05/2023 CBC WITH DIFFE RENTI AL/PL ATELE T NRBC 0 % 0-0 Not Available [facility] [address] [place], [address], 11/05/2023 19:08:32 11/05/19 24 11/06/2023 TSH RFX ON ABNOR MAL TO FREE T4 TSH 4.610 uIU/m L 0.450- 4.500 above high normal Not Available [facility] ([facility]) [address], [place], [address], 11/06/2023 10:13:43 11/05/19 24 11/06/2023 HEMOG LOBIN A1C hemoglobin A1C 7.5 % 4.8-5. 6 above high normal Predi abete s: 5.7 - 6.4 Diabe basia: >6.4 Glyce arina contr ol for adult s with diabe basia: <7.0 Not Available [facility] ([facility]) [address], [place], [address], 11/06/2023 10:13:44 11/05/19 24 11/06/2023 T4F T4,free (direct) 1.06 NG/dL 0.82-1 .77 Not Available [facility] ([facility]) [address], [place], [address], 11/06/2023 10:13:45 11/05/1911/06/2023 VITAM IN D, 25-HY DROXY vitamin D, 25-hydroxy 13.7 NG/mL 30.0-1 00.0 below low normal Vitam in D defic iency has been defin ed by the Insti tute of Medic ine and an Endoc rine Socie ty pract ice guide line as a level of serum 25-OH vitam in D less than 20 ng/mL (1,2) . The Endoc rine Socie ty went on to furth er defin e vitam in D insuf ficie ncy as a level betwe en 21 and 29 ng/mL (2). 1. IOM (Inst itute of Medic ine). 2010. Dieta ry refer ence intak es for calci um and D. Cl courtney [place]: The [facility] Press . 2. Jennifer munoz MF, Shavon russell [place], Alfonso off-F errar i AMES, et al. Evalu ation , treat ment, and preve ntion of vitam in D defic iency : an Endoc rine Socie ty clini gloria pract ice guide line. JCEM. 2010; 96(7) :1911 -30. Not Available [facility] ([facility]) [address], [place], [address], 11/06/2023 10:13:45 Result Notes None recorded. Problems Name Problem SNOMED Code Status Onset Date Resolution Date Notes Provider Name and Address Organization Details Recorded Time Migraine 23138620 Active 2023 Patricia Watters MD Attn: Lawrence rubio,[address] [place], [address], [facility] 4 09:08:09 Diverticulo sis of colon 139059857 Active 2023 Patricia Watters MD Attn: Lawrence rubio[address] [place], [address], [facility] 4 09:08:52 Restless legs syndrome 95750227 Active 2023 Patricia Watters MD Attn: Lawrence rubio,[address] [place], [address], [place] [facility] 4 09:11:08 Generalized anxiety disorder 71287996 Active 2023 Patricia Watters MD Attn: Lawrence rubio[address] [place], [address], [place] [facility] 4 09:12:00 Family history of cancer of colon 970742142 Active 2023 Patricia Watters MD Attn: Lawrence rubio[address] [place], [address], [place] [facility] 4 18:54:49 Hyperlipide pippa 86679048 Active 2023 Patricia Watters MD Attn: Lawrence ruibo[address] [place], [address], [place] [facility] 4 18:54:48 Subclinical hypothyroid ism 46648180 Active 2023 Patricia Watters MD Attn: Lawrence ramiro,[address] [facility], [place], [address], [place] [facility] 4 18:54:53 Microcytic anemia 107855217 Active 2023 Patricia Watters MD Attn: Lawrence rubio,[address] [facility], [place], [address], [place] [facility] 4 18:54:51 Vitamin D deficiency 66227366 Active 2023 Patricia Watters MD Attn: Lawrence rubio,[address] [facility], [place], [address], [place] [facility] 4 18:54:56 Type 2 diabetes mellitus 51731062 Active 2023 Patricia Watters MD Attn: Lawrence rubio,[address] [facility], [place], [address], [place] [facility] 4 18:54:54 Hernia of anterior abdominal wall 478253645 Active 2023 Patricia Watters MD Attn: Lawrence rubio,[address] [facility], [place], [address], [place] [facility] 4 14:19:50 Morbid obesity 794728707 Active 2023 Patricia Watters MD Attn: Lawrence rubio,[address] [facility], [place], [address], [place] [facility] 4 14:19:48 Palpitation s 82890917 Active 2023 Patricia Watters MD Attn: Lawrence rubio,[address] [place], [address], [place] [facility] 4 14:19:44 Insomnia 274463040 Active 2023 Patricia Watters MD Attn: Lawrence rubio,[address] [place], [address], [place] [facility] 4 14:19:53 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 Procedures Surgical History Date Name Laterality Status Provider Name and Address Organization Details Recorded Time 3 Date of Last Pap Smear completed Katherine Fink MA [facility] 11/05/2023 08:53:05 section completed Katherine Fink MA [facility] 11/05/2023 08:54:21 Tubal Ligation completed Katherine Fink MA [facility] 11/05/2023 08:54:31 Hernia Repair completed Katherine Fink MA [facility] 11/05/2023 08:54:39 procedure on kidney completed Katherine Fink MA [facility] 11/05/2023 08:55:01 Imaging Results None recorded. Procedure Notes None recorded. Medical Equipment None Reported. Allergies Allergen ID Allergen Name Allergen Category Reaction Reaction Severity Criticality Documentation Date Start Date Code Code System Note Provider Name and Address Organization Details Recorded Time 21320824 chlorhexi dine medicatio n itching Not available low 02/24/20252024 2358 RxNorm Not Available [facility] - External Data Service - prod 07:56:00 861262 erythromy hitesh medicatio n other Not available Not available 02/24/20252018 4053 RxNorm React ion: state s not aller gic to violeta babb in unrec ogniz ed react ion (text : Unkno wn, code: [id number]) (from exter nal sourc e) Not Available [facility] - External Data Service - prod 07:56:00 Medications Name Sig Start Date Stop Date Status Note LastModified by Organization Details LastModified Time metformin 500 mg tablet active Not Available Not Available Not Available cetirizin e 10 mg tablet TAKE 1 TABLET BY MOUTH EVERY DAY active Not Available Not Available No t Available ibuprofen 800 mg tablet TAKE 1 TABLET BY MOUTH EVERY 12 HOURS FOR 10 DAYS active Not Available Not Available No t Available sumatript an 100 mg tablet TAKE 1 TABLET BY MOUTH NEEDED FOR MIGRAINE . MAY REPEAT 1 TABLET AFTER AT LEAST 2 HOURS active Not Available Not Available No t Available hydrocodo ne 5 mg-acetam inophen 325 mg tablet TAKE 1 TABLET BY MOUTH THREE TIMES DAILY FOR 5 DAYS NEEDED active Not Available Not Available No t Available amoxicill in 500 mg tablet TAKE 1 TABLET BY MOUTH THREE TIMES DAILY active Patient is not taking. Not Available Not Available Not Available levothyro xine 75 mcg tablet TAKE 1 TABLET BY MOUTH EVERY DAY 2024 active Not Available Not Available Not Avai lable ferrous sulfate 325 mg (65 mg iron) tablet Take 1 tablet every day by oral route for 30 days. 12/05 completed Not Available Not Available Not Available gabapenti n 300 mg capsule TAKE 2 CAPSULES BY MOUTH THREE TIMES DAILY NEEDED 2024 active Not Available Not Available Not Avai lable zolpidem 5 mg tablet TAKE 1 TABLET BY MOUTH EVERY DAY active Not Available Not Available No t Available ergocalci ferol (vitamin D2) 1,250 mcg (50,000 unit) capsule TAKE 1 CAPSULE BY MOUTH EVERY WEEK active Not Available Not Available No t Available levofloxa hitesh 500 mg tablet TAKE 1 TABLET BY MOUTH DAILY FOR 5 DAYS 11/04 completed Not Available Not Available Not Available albuterol sulfate HFA 90 mcg/actua tion aerosol inhaler INHALE 2 PUFFS BY MOUTH EVERY 4 HOURS NEEDED FOR WHEEZING 2024 active Not Available Not Available Not Avai lable cholecalc iferol (vitamin D3) 10 mcg (400 unit) tablet Take 1 tablet every day by oral route for 90 days. 2023 active Patient is not taking. Not Available Not Available Not Available buspirone 15 mg tablet TAKE 1 TABLET BY MOUTH THREE TIMES DAILY NEEDED 11/04 completed Not Available Not Available Not Available escitalop moody 20 mg tablet TAKE 1 TABLET BY MOUTH EVERY DAY active Not Available Not Available No t Available Saline Nasal 0.65 % spray aerosol Take 1 spray 4 times a day by nasal route as directed for 30 days. 2023 active Patient is not taking. Not Available Not Available Not Available rosuvasta tin 10 mg tablet TAKE 1 TABLET BY MOUTH EVERY DAY active Patient is not taking. Not Available Not Available Not Available ferrous sulfate 324 mg (65 mg iron) tablet,de layed release TAKE 1 TABLET BY MOUTH EVERY DAY active Not Available Not Available No t Available Vitals Date Recorded Body height Body mass index (BMI) Body weight Body temperature Respiratory rate Oxygen saturation Heart rate Systolic And Diastolic Provider Name and Address Organization Details Last Updated DateTime 5 160.02 cm 61.2 kg/m2 517431. 17 g 97.5 [degF] 20 /min 99 % 86 /min 82/53 mm[Hg] Regulo Youngblood [place] - [facility] 5 16:04:57 Date Recorded Body height Body mass index (BMI) Body weight Heart rate Body temperature Respiratory rate Oxygen saturation Systolic And Diastolic Provider Name and Address Organization Details Last Updated DateTime 5 160.02 cm 62.7 kg/m2 913103. 7 g 94 /min 97.3 [degF] 20 /min 97 % 152/89 mm[Hg] Ellie Staples MA [place] - [facility] 5 15:50:48 Date Recorded Body height Body mass index (BMI) Body weight Heart rate Respiratory rate Body temperature Systolic And Diastolic Provider Name and Address Organization Details Last Updated DateTime 4 160.02 cm 62.8 kg/m2 534583. 8 g 84 /min 20 /min 98.3 [degF] 138/81 mm[Hg] Katherine Fink MA [facility] 4 08:56:41 Date Recorded Body height Body mass index (BMI) Body weight Body temperature Respiratory rate Heart rate Oxygen saturation Systolic And Diastolic Provider Name and Address Organization Details Last Updated DateTime 4 160.02 cm 62 kg/m2 155129. 73 g 98.2 [degF] 20 /min 116 /min 98 % 118/84 mm[Hg] Regulo Youngblood MA [facility] 4 16:58:18 Social History Question Answer Notes LastModified by [employer] Details LastModified Time Tobacco Smoking Status Never Smoker Katherine Fink MA null, [facility] 11/05/2023 08:53:57 What Was The Date Of Your Most Recent Tobacco Screening? 06/27/2024 Information not available 06/27/2024 Has Tobacco Cessation Counseling Been Provided? Yes [email or web address] Information not available 11/05/2023 On What Date Was Tobacco Cessation Counseling Provided? 06/27/2024 Information not available 06/27/2024 Sex: Female Functional Status Question Answer Note LastModified by [employer] Listed Details LastModified Time Do you use any illicit or recreational drugs? No Information not available 12/06/2023 What is your level of alcohol consumption? None Information not available 12/06/2023 Mental Status None recorded. Family History Relationship Description Onset Age of this Age Resolved Age Notes LastModified by Organization Details LastModified Time Mother Diabetes mellitus [email or web address] Not available 11/04 08:53:26 Father Malignant neoplasm of transverse colon [email or web address] Not available 11/04 08:53:43 Notes:06/13/24, 06/27/24 Medical History Condition Response Anxiety Disorder Y Kidney or Bladder Problems Y GI Problems Y Depression Y COPD Y Gynecological History Statement/Question Response Date of Last Pap Smear 10/21/2012 Date of LMP 04/23/2024 LMP Approximate Obstetrics History GPAL:G 0 P 0 0 0 0 Past Encounters Encounter ID Performer Location Encounter Start Date Encounter Closed Date Diagnosis/Indication Diagnosis SNOMED-CT Code Diagnosis ICD10 Code Diagnosis IMO Codes Diagnosis Note [id number] MD Turner Larsen 14 IM [address] [facility] [place] [address] 11/05/2023 08:41:16 11/24/2023 10:10:20 Morbid obesity 696717691 E66.01 BMI 62.8. Will asses for comorbid diabetes and HLD. Counselled on lifestyle modificati on. Generalize d anxiety disorder 99139096 F41.1 OSCAR 14 and PHQ 15. In need of refill of lexapro. Recently discontinu ed buspirone, but may consider continuing when weaning off zolpidem. Palpitations 11384774 R0 0.2 DDX anxiety, low blood sugar, dysrhythmi a. EKG for further evaluation . Hernia of anterior abdominal wall 646243486 K43.9 Palpable mass consistent with hernia just superior to umbilicus. Hx repair of umbilical hernia with mesh. Now causing nausea and pain. Will refer to general surgery. CMP and CBC for evaluation of comorbid electrolyt e derangemen t, anemia, or infection. Migraine 29933206 G43.90 9 Chronic medication , will refill and address further on follow-up. Family his tory of cancer of colon 253373927 Z80.0 Father diagnosed at age 38. Patient had colonoscop y 10 years ago, is due for repeat. History of diverticul osis. No recent change in stool caliber, bleeding per rectum or unexpected weight loss. Insomnia 493856423 G47.0 0 Chronic insomnia, on zolpidem long-term. Previously tried melatonin, quetiapine , trazodone without success. Will wean off zolpidem and reinforce lifestyle modificati ons. Patient counseled on sleep hygeine. Short course of zolpidem 5 mg daily to wean. [id number] MD Turner ECHEVARRIA 14 IM [address] [facility] [place] [address] 12/06/2023 16:41:27 12/20/2023 09:05:36 Type 2 diabetes mellitus 83606468 E11.9 A1c 7.5 on 11/05/23, new diagnosis. Prescribed metformin; caused too much GI upset. Also exacerbate d by known hernia. - discontinu e metformin pending hernia repair- refer to site technician- counseled on dietary modificati ons- referral to ophthalmol ogist, diabetic foot exam, and urine protein/cr eatinine at next visit due to time constraint s Microcytic anemia 172858 007 D50.9 Hgb 9.9, MCV 77. Suspect iron deficiency , although cannot rule out occult GI bleed. Already referred to GI for chronic fistula and diverticul osis. - iron 324 mg daily Hyperlipidemia 83236013 E78.5 ASCVD score 2.9-6.6%, recommend moderate-i ntensity statin for diabetes. Will start rosuvastat in given favorable side effect profile. Dyspnea 313017727 R06.00 Unknown history of asthma. Previously prescribed albuterol. Episodes of dyspnea and wheezing relieved by inhaler. Also with allergic rhinitis and tachycardi a as below. Lungs CTA on exam today. Other differenti als include COPD, CHF, panic attacks. - PFT for further evaluation - refill albuterol- EKG, cetirizine as below Tachycardia 0276021 R00. 0 Persistent ly elevated to 116 during appointmen t; previously 86. Patient denies chest pain, palpitatio ns, current SOB. Other vital signs WNL. Cannot rule out supra therapeuti c dose of levothyrox ine. No previous EKG found for comparison . - EKG Seasonal a llergic rhinitis 014365962 J30.2 Chronic nasal congestion and cough related to weather changes. Likely exacerbati ng wheezing symptoms. - saline nasal spray, consider flonase for refractory symptoms- cetirizine daily Migraine 59238192 G43.90 9 Chronic medication , will refill and address further on follow-up. Generalize d anxiety disorder 92108228 F41.1 OSCAR 14 and PHQ 15. In need of refill of lexapro. Recently discontinu ed buspirone, but may consider continuing when weaning off zolpidem. Subclinica l hypothyroidism 80809172 E02 TSH 4.61 with free T4 1.06. Given debilitati ng anxiety, depression , and fatigue, will pursue trial of treatment. - levothyrox ine 75 mcg, patient counseled on proper administra tion- recheck TSH in 3 months- consider TPO antibody testing Hernia of anterior abdominal wall 736568002 K43.9 Palpable mass consistent with hernia just superior to umbilicus. Hx repair of umbilical hernia with mesh. Now causing nausea and pain. Borderline leukocytos is of 11.1, microcytic anemia, and normal electrolyt es on recent labs. No sign of acute strangulat ion, although cannot rule out chronic occult GI bleed. Referred to general surgery for hernia repair, in process of being scheduled. Requests provider other than Dr. Escamilla. [id number] MD Turner Krishna [address] [facility] [place] [address] 06/13/2024 15:46:35 06/24/2024 15:26:22 Acute pyelonephritis 74389235 N10 43 y/o female w/ hx of diverticul itis complicate d by colon-vagi na-bladder fistula formation. Actively excreting urine and feces from vagina. CVA tenderness and signs of hemodynami c instabilit y including light-head edness, blurry vision, and hypotensio n suggests pyelonephr itis w/ possible systemic involvemen t. T 97.5, BP 82/53, P 86, R 20.Plan: Called EMS for prompt transporta t[facility] ED. Will likely require IV antibiotic s, fluids, and possibly surgical evaluation for the fistula. [id number] MD Turner Fabian [address] [facility] [place] [address] 06/27/2024 15:30:51 06/30/2024 10:31:04 Morbid obesity 682217551 E66.01 BMI: 62.7Plan: Will discuss dietary and exercise modificati ons at next visit. Positive s creening for depression on PHQ-9 (Patient Health Questionnaire 9) 3777276285 04811 Z13.31 score = 19Plan: Will discuss mental health history at next visit Kidney stone 09722296 N2 0.0 43 y/o female who was found to have bilateral nephrolith iasis that predispose d her to pyelonephr itis. She was told that she will need to see urology to manage her stones. She has an appointmen t scheduled. She is currently taking bactrim for the pyelonephr itis. She is in significan t pain.Plan: Attending will prescribe norco TID PRN for 5 days. 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 Confirmed on CT abdomen and pelvis. Likely due to hx of diverticul itis.Plan: Pt is scheduled to see the colorectal surgeon. Will follow consult notes to stay updated on management . Hernia of anterior abdominal wall 824009984 K43.9 Patient was found to have an abdominal hernia during her recent hospitaliz ation. This was confirmed on CT abdomen and pelvis.Xander n: Pt will see colorectal surgeon to prioritize repair of vesicocoli c fistula prior to hernia repair. Pt may need referral to general surgery, pending evaluation by colorectal surgeon. Chronic insomnia 2234264 04 F51.04 Pt reports chronic insomnia over the past 2 weeks, likely worsened by pain from kidney stones. Pt was previously prescribed zolpidem for insomnia. Previous trials of melatonin and trazodone were not beneficial Plan: Will prescribe zolpidem 5 mg daily for 30 days. Health Concerns Section Related Observation LastModified by Organization Detai ls LastModified Time None Recorded Concern Status LastModified by Organization Details LastModified Time None Recorded Advance Directives Directive None Recorded Payers Insurance Date Sequence Insurance Name Policy Number Policy Ni Covered Member ID Ni Member ID Guarantor Name 09/22/2024 1 [facility] - DOS ON OR AFTER 20 (MEDICAID REPLACEMENT - HMO) Nina Macias [id number] Nina Macias Notes Date Note Type Note Provider Name and Address Organization Details Recorded Time 11/05/2023 text/html ROS as noted in the HPI Nina is a 43 y/o here to establish care and discuss abdominal hernia. She is accompanied by her . HerniaHx 2 c-sections and tubal ligationUmbilical hernia repair with mesh [address] [place]amilla in [place], does not wish to return there4-5 months ago developed mass above umbilicus. Has been firm on and off, associated nausea, pain, taking ibuprofen. GIAlso reports history of bladder fistula and diverticulitis. Mother of complications from diabetes, dad of colon cancer, diagnosed at age 38.Patient had colonoscopy at [facility] 10 years ago after developing bleeding per rectum. RespiratoryUnsure if history of COPD, does not need rescue inhaler. Psych, Neuro, InsomniaOn zolpidem, sumatriptan, lexapro, buspar. Does not feel buspirone is working.More panic attacks lately, afraid it will happen when going to bedHusband had been hospitalized, caused a lot of stressFatigue, poor sleepHad been on ambien for a few years, ran out for past few months.Previously tried melatonin, quetiapine, trazodoneGets light headed with migraines, off-balance, chest pain, heart fluttering, skipped beats, more with anxiety. SocialMarried to [facility]. 3 kids aged 21 20 18. 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 Denies alcohol, smoking, drug use. Mary Carmen Lam MD Attn: Accounting,[address] [facility], [place], [address], [place] - [facility] 11/18/2023 17:37:42 12/06/2023 text/html ROS as noted in the HPI Nina is a 43 y/o here to follow-up on the following issues: HerniaHx 2 c-sections and tubal ligationUmbilical hernia repair with mesh [address] [place]illa in [place], does not wish to return thereEarly 2023 ago developed mass above umbilicus. Has been firm on and off, associated nausea, pain, taking ibuprofen.Referred to general surgery in October 2023 - initially sent to previous surgeonStill causing pain, nausea, difficulty sleeping GIAlso reports history of bladder fistula and diverticulitis. Mother of complications from diabetes, dad of colon cancer, diagnosed at age 38.Patient had colonoscopy at [facility] 10 years ago after developing bleeding per rectum.Referred to GI - scheduled 01/29 RespiratoryUnsure if history of COPD, does not usually need rescue inhalerWheezing and coughing, using couple puffs a day for last few daysAlso stuffy nose past monthHas not tried any OTC medicationDenies chest pain, palpitations, SOB, LOC Psych, Neuro, InsomniaOn zolpidem, sumatriptan, lexapro, buspar. Does not feel buspirone is working.More panic attacks lately, afraid it will happen when going to bedHusband had been hospitalized, caused a lot of stressFatigue, poor sleepHad been on zolpidem for a few years, ran out for past few months, reports it is only thing that helpsPreviously tried melatonin, quetiapine, trazodoneMigraines with associated lightheadedness, off-balance, chest pain, heart fluttering, skipped beats, more with anxiety.Taking gabapentin 600 mg TID for leg pain, not completely effectiveTaking sumatriptan frequently for migraines with good results AnemiaHgb 9.9 with MCV 77 on 11/05/23Prescribed iron, not covered by insurance, couldn't afford it DiabetesMetformin made her sick, also exacerbated by hernia SocialMarried to [facility]. 3 kids aged 21 20 18. 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 Denies alcohol, smoking, drug use. Preventative - not fully addressed due to acuity of symptomsCervical cancer screening q5y with HPV co-testing - dueSTI screening if new change in sexual habits - no changesIntimate partner violence - denies concern ( has been present at all appointment)GAD7, PHQ 2 - 13, 12 on 12/06/23gb A1c - 7.5 on 11/05/23 ANNEMARIE FAJARDO MD Attn: Accounting,[address] [facility], [place], [address], [facility] 12/19/2023 10:45:57 06/13/2024 text/html HPI: Patient is a 43 y/o female with a PMH of diverticulitis complicated by jxjvb-aobyvdg-oxksxtm fistula formation. Here to establish care with me. She is complaining of urine and feces coming from her vagina. She is feeling very sick, including light-headedness and blurry vision. She is having dysuria and pain in her lower back. She also has a large periumbilical hernia that is causing significant amounts of pain. Genoveva Reyna MD Attn: Accounting, [address] [facility], [place], [address], [facility] 06/24/2024 11:25:05 06/27/2024 text/html ROS as noted in the HPI HPI: Patient is a 43 y/o female with a PMH of diverticulitis, urinary fistula, abdominal hernia, DM, HLD, and OSCAR. Here to establish care with me. Pt is following up after a hospitalization about 2 weeks ago for pyelonephritis. She was found to have bilateral kidney stones and was discharged w/ antibiotics. She was prescribed bactrim, of which, she has a couple more days of the course. She is currently in significant pain, especially in left lower back and her abdomen. She reports upcoming surgeries for abdominal hernia, diverticulitis, colovesical fistulas, and kidney stones. She is scheduled to see the colorectal surgeon, urologist, and ID. She denies nausea, vomiting, diarrhea, constipation. Yusuf Baldwin MD Attn: Accounting,[address] [place], [address], [place] [facility] 06/30/2024 06:43:30 OBGyn Episode No OBEpisode recorded.
--- OUTSIDE RECORDS SUMMARY | 2025-04-01 21:00 | XMS_ITS | Clinical Summary ---
Author Organization [facility] Address [address] [place] [address] Phone Care Team Providers Care Mail Handler Equipment Operator Name Role Phone Byron Carter MD Primary Care Provider [phone] Allergies Active Allergy Reactions Criticality Noted Date Comments Other-Environmental Allergen (Not Found In Search) Rash Medium 10/23/2024 CHG Medications acetaminophen (TYLENOL) 500 MG Tablet Take 500 mg by mouth every 6 hours as needed for Moderate or more severe pain. 5 Active Topiramate 50 MG Tablet Take 50 mg by mouth daily. 5 Active PANTOPRAZOLE SODIUM PO Take 40 mg by mouth daily. 5 Active medroxyPROGESTE Sidney (PROVERA) 10 MG Tablet Take 10 mg by mouth daily. 5 Active oxyCODONE 10 MG Tablet Take 10 mg by mouth every 6 hours as needed for Moderate or more severe pain. 5 Active zolpidem (AMBIEN) 5 MG Tablet Take 5 mg by mouth nightly. 5 Active tedizolid (Sivextro) 200 MG Tablet Take 200 mg by mouth daily. 5 Active oxybutynin (DITROPAN) 5 MG Tablet Take 5 mg by mouth daily. 5 Active amoxicillin-cla vulanate (AUGMENTIN) 875-125 MG Tablet Take 1 Tablet by mouth 2 times daily. 5 Active gabapentin (NEURONTIN) 300 MG Capsule Take 600 mg by mouth 3 times daily. 5 Active dextrose 70 % SOLN with sodium chloride 4 MEQ/ML (23.4 %) SOLN, Fat Emuls Plant Base(Soy/Oliv) 20 % EMUL 300 mL 1,800 mL by Intravenous route three times a week. Week 1 infuse 3 times a week. Week 2 infuse 4 times a week. infuse continuous for 12 hours per bag. Active Clinimix E/Dextrose (4.25/5) 4.25 % SOLN 1,000 mL with Infuvite Adult SOLN, Trace Minerals Cu-Mn-Se-Zn 136-83-02-3000 MCG/ML SOLN 1,800 mL by Intravenous route continuous. Infuse 3 times a week over 12 hours week one then infuse 4 times a week over 12 hours. TPN has a multivitamin additive Active Encounters Date Type Department Care Team Description 01/07/2025 Telephone [facility] [address] [facility] [address] Janay Romero, [facility] from Last 3 Months Social History Tobacco Use Types Packs/Day Years Used Date Smoking Tobacco: Never Assessed Comments Unknown Sex and Gender Information Value Date Recorded Sex Assigned at Not on file Legal Sex Female 9:44 PM CDT Gender Identity Not on file Sexual Orientation Not on file Last Filed Vital Signs Vital Sign Reading Time Taken Comments Blood Pressure 110/60 10/23/2024 1:24 PM CDT Pulse 64 10/23/2024 1:24 PM CDT Temperature 36.4 C (97.5 F) 10/23/2024 1:24 PM CDT Respiratory Rate 18 10/23/2024 1:24 PM CDT Oxygen Saturation 97% 10/23/2024 1:24 PM CDT Inhaled Oxygen Concentration - - Weight - - Height 160 cm (5' 3) 10/23/2024 1:24 PM CDT Body Mass Index - - Plan of Treatment Not on file Insurance MEDICAID [employer] Advance Directives * Full Code (Latest Code Status on File) Date Activated Date Inactivated Comments 10/23/2024 4:41 PM Care Teams Mail Handler Equipment Operator Relationship Specialty Start Date End Date Byron Carter MD [address] [place] [address] [address] PCP - General Family Medicine 10/17/24
--- OUTSIDE RECORDS SUMMARY | 2025-04-01 21:00 | XMS_ITS | Encounter Summary ---
Author Organization [facility] Address [address] [place] [address] Care Team Providers Care Funeral Service Licensee Name Role Phone Gerry Kearns MD Unavailable [phone] Manny Camacho MD PhD Primary Care Provider Encounter Details Date Type Department Care Team (Late st Contact Info) Description 04/01/2025 Telephone [facility] [address] [facility] [address] [place] [address] Valerie Ocampo RN Social History Tobacco Use Types Packs/Day Years [...] often do you attend chur ch or baptism services? More than 4 times per year 10/31/2024 Do you belong to any clubs o r organizations such as baptist groups, unions, fraternal or athletic groups, or [...] any time in the past 12 m [facility], were you homeless or living in a care home (including now)? No 10/31/2024 Social Connection and Isolation Panel Answer Date Recorded In a typical week, how many times do you talk on the phone with family, friends, or neighbors? Never 02/25/2025 How often do you get togethe r with friends or relatives? Once a week 02/25/2025 How often do you attend chur ch or baptism services? More than 4 times per year 02/25/2025 Do you belong to any clubs o r organizations such as baptist groups, unions, fraternal or athletic groups, or [...] housing, medical care, and heating? Hard 02/25/2025 [facility] - Occupational Stress [...] any time in the past 12 m [facility], were you homeless or living in a care home (including now)? No 02/25/2025 [facility] Utilities Answer Date Recorded In the [...] on file Legal Sex Female 1:21 AM SALES TEAM MEMBER Gender Identity Not on file Sexual Orientation Not on file documented as of this encounter Miscellaneous Notes * Telephone Encounter - Valerie Ocampo RN - 04/01/2025 9:27 AM CST Call center stated called back. I reach the pt via to make her aware that plan is that she will get refill before next scheduled appt. And tried to reschedule for sooner appt this month but stated has no car and her 's aunt provide transportation to appt. 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
--- OUTSIDE RECORDS SUMMARY | 2025-04-01 21:00 | XMS_ITS | Clinical Summary ---
Author Organization [facility] Address [address] [place] [address] Care Team Providers Care Pinion Sorter Name Role Phone Elisha Dixon MD Primary Care Provider [phone] Source Comments [facility],non-owned Affiliates and Associated Physician Practices is amultiple site organization consisting of ambulatory clinics and hospital sitesin [place] and [place]. This disclosure is being madepursuant to the Care Everywhere program and may not contain all information available regarding this patient. Last updated 18.[facility] [employer] Social History Tobacco Use Types Packs/Day Years Used Date Smoking Tobacco: Never Assessed Comments Unknown Sex and Gender Information Value Date Recorded Sex Assigned at Not on file Legal Sex Female 6:27 AM EMERGENCY DEPARTMENT Gender Identity Not on file Sexual Orientation Not on file Last Filed Vital Signs Vital Sign Reading Time Taken Comments Blood Pressure 108/74 07/17/2017 12:26 PM CDT Pulse 104 07/17/2017 12:26 PM CDT Temperature 37 C (98.6 F) 07/17/2017 12:26 PM CDT Respiratory Rate - - Oxygen Saturation 97% 07/17/2017 12:26 PM CDT Inhaled Oxygen Concentration - - Weight 127 kg (280 lb) 07/17/2017 12:26 PM CDT Height 160 cm (5' 3) 07/17/2017 12:26 PM CDT Body Mass Index 49.6 07/17/2017 12:26 PM CDT Plan of Treatment Health Maintenance Due Date Last Done Comments COLOGUARD (AGES 45-75) - COL ON CA SCREENING 1979 COLON MONITORING 1979 COLONOSCOPY - COLON CA SCREENING 1979 CT COLONOGRAPHY - COLON CA SCREENING 1979 Colorectal Cancer Screening 1979 FIT - COLON CA SCREENING 1979 FLEX SIG - COLON CA SCREENING 1979 LIPID TESTING 1979 MAMMOGRAM 1979 HIV SCREENING 09/05/1994 HEPATITIS C SCREENING 09/01/1997 DTAP/TDAP/TD VACCINES (1 - Tdap) 09/05/1998 HEPATITIS B VACCINE (1 of 3 - 19+ 3-dose series) 09/05/1998 Cervical Cancer Screening 09/05/2000 PAP SMEAR 09/05/2000 HPV VACCINE (1 - 3-dose SCDM series) 09/05/2006 PAP with HPV 09/05/2009 DEPRESSION SCREENING 04/23/2024 COVID-19 VACCINE (1 - 2024-2 6 season) 2024 INFLUENZA VACCINE (#1) 2024 ZOSTER VACCINE (1 of 2) 09/05/2029 HIB VACCINE Aged Out No longer eligi ble based on patient's age to complete this topic MENINGOCOCCAL (Group B) VACC INE SHARED DECISION-MAKING Aged Out No longer eligibl e based on patient's age to complete this topic MENINGOCOCCAL GROUPS A/C/Y/W VACCINE Aged Out No longer eligible b ased on patient's age to complete this topic PNEUMOCOCCAL VACCINE Aged Out No long er eligible based on patient's age to complete this topic Insurance [facility] Care Teams Pinion Sorter Relationship Specialty Start Date End Date Elisha Dixon MD [address] [place] [address] [place] [address] [facility] - General 07/31/17
--- OUTSIDE RECORDS SUMMARY | 2025-04-01 21:00 | XMS_ITS | Encounter Summary ---
Author Organization [facility] Healthcare Address [address] [place] [address] Care Team Providers Care Bankruptcy Paralegal Name Role Phone Gerry Kearns MD Unavailable Manny Camacho MD PhD Primary Care Provider Reason for Visit * Reason Onset Date Comments Follow-up 03/31/2025 Encounter Details Date Type Department Care Team (Late st Contact Info) Description 03/31/2025 Telephone [facility] Primary [facility] Medicine [facility] [address] [facility] [address] [place] [address] Valerie Ocampo RN Follow-up Social History Tobacco Use Types Packs/Day Years [...] often do you attend chur ch or mormonism services? More than 4 times per year [...] any time in the past 12 m [facility], were you homeless or living in a long term (including now)? No 10/31/2024 Social Connection and Isolation Panel Answer Date Recorded In a typical week, how many times do you talk on the phone with family, friends, or neighbors? Never 02/25/2025 How often do you get togethe r with friends or relatives? Once a week 02/25/2025 How often do you attend chur or mormonism services? More than 4 times per year [...] housing, medical care, and heating? Hard 02/25/2025 [facility] - Occupational Stress Questionnaire Answer Date Recorded [...] any time in the past 12 m [facility], were you homeless or living in a long term (including now)? 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 Thanks, Judi Dior [facility] Clinic Services [phone] SFORMER STOCK CLERK * Telephone Encounter - Valerie Ocampo RN - 03/31/2025 10:37 AM CST Per call center Kathrin, patient called back returning your call. Patient is now rescheduled with a team pcp on 05/01. Patient is requesting a call back regarding is she still able to get a refill for her pain meds before this day, which was the earliest. I attempted to reach pt via phone. No ans, lvm for call back. 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
[2025-04-01] MEDS: cefTRIAXone 1 GM VIAL IM (21:46)
--- NOTE | 2025-04-02 00:40 | PC.NURSE ---
PICC line dressing changed by this RN.
[2025-04-02] MEDS: HYDROcodone/acetaminophen (*CRX) 5-325 MG TABLET 1 TAB PO (00:41)
[2025-04-02 01:03] VITALS: BP 139/70; PULSE 90; RESP 20; TEMP 36.6; O2SAT 100
== END 2025-04-02 01:07 | disposition home or self-care (01) ==
PROVIDERS: Emergency Provider Registered Nurse
DX: N39.0 Urinary tract infection, site not specified (principal); T82.848A Pain due to vascular prosthetic devices, implants and grafts, initial encounter; R10.9 Unspecified abdominal pain; E83.59 Other disorders of calcium metabolism; Z86.711 Personal history of pulmonary embolism; Z79.01 Long term (current) use of anticoagulants; F41.8 Other specified anxiety disorders
CPT/HCPCS: 36415; 71045; 71275; 74177; 80053; 81001; 81025; 83605; 83690; 83880; 85025; 85380; 85610; 85730; 86140; 87086; 93971; 96372; 96374; 96376; 99284; A9270; J0696; J1171; J7030; Q9967